=== PATIENT | female | born 1975 | race Caucasian/White ===

== ENCOUNTER → 2016-08-09 06:44 | Day surgery (SDC) | payer OTHER ==
[~2016-08-09 06:44] MED LIST: Buffered Lidocaine 1% SYR 3ML* 3 ML/SYR SYRINGE INTRADERM ONE; Lidocaine 1% INJ* 10 MG/ML 30 ML SDV ONE; Lidocaine 2% MPF* 2 ML VIAL ONE; Midazolam* 1 MG/ML 5 ML VIAL (5 MG) ONE; Propofol* 10 MG/ML 20 ML BTL IV PUSH ONE; ceFAZolin 2 GM PREMIX (*) 2 GM/50 ML BAG IVPB ONE; fentaNYL* 50 MCG/ML 2 ML VIAL (100 MCG VIAL) ONE
[2016-08-09 11:50] LABS: Manual Entry Verification HAN0055; UR Preg Internal Control QC Line Present
--- NOTE | 2016-08-09 14:05 | RAD ---
Indication: Left-sided PowerPort placement. Single frontal view of the chest performed at 1315 hours was reviewed. Comparison is made with previous exam dated June 09, 2014. Cardiomegaly is noted. PowerPort is in place. No pneumothorax is noted. Interstitial edema consistent with CHF is noted. IMPRESSION: CARDIOMEGALY WITH INTERSTITIAL EDEMA CONSISTENT WITH CHF.
--- NOTE | 2016-08-09 14:06 | RAD ---
CPT II Codes: 6045F INDICATION: PowerPort placement Fluoroscopic services provided for referring physician for PowerPort insertion. Approximately 8 seconds of fluoroscopy time was used. IMPRESSION: Placement of a PowerPort in the superior vena cava under fluoroscopic guidance.
[2016-08-09 14:28] VITALS: BP 116/57
--- NOTE | 2016-08-09 21:12 | OP ---
DATE OF OPERATION: 08/09/16 - [facility] DATE OF : 79 SURGEON: Darren Moraes MD FIRE SUPPORT SPECIALIST: None. ANESTHESIOLOGIST: Dr. Martinez. ANESTHESIA: LMAC anesthesia. PRE-OP DIAGNOSIS: Carcinoma of the breast. POST-OP DIAGNOSIS: Carcinoma of the breast. OPERATIVE PROCEDURE: Placement of left subclavian 8-Jordanian PowerPort. DESCRIPTION OF PROCEDURE: The patient was supine on the operating table. After adequate intravenous sedation, compression stockings, Yves Hugger warmer and intravenous antibiotics, the left chest and neck region were prepped with antiseptic and draped in a sterile fashion. Local infiltrative anesthesia was administered. Approximately 3 to 4 cm incision was created. Inferior pocket was created. Hemostasis was obtained using electrocautery. Subclavian venipuncture was carried out and guidewire was passed under fluoroscopic guidance. Catheter was passed through the peel-away introducer, measured and cut at 29 cm, attached to the port, which was sutured in the pocket with 2-0 Prolene. The pocket was closed with 3-0 and 5-0 Polysorb followed by Steri- Strips. The port had good blood return. It was flushed with saline solution and heparinized solution. She tolerated the procedure well and was brought to Recovery in good condition. No complications. No drains. No pathologic specimen. Sponge and instrument counts correct. Estimated blood loss 5 mL. CC: Darren Moraes MD; Dr. Richardson; Dr. Cordova; Dr. King * [id number]/[facility] #: [id number] MTDD
== END | disposition home or self-care (01) ==
LOC: OR 06:44
PROVIDERS: ATTEND Surgery
DX: C50.511 Malignant neoplasm of lower-outer quadrant of right female breast (principal); F17.210 Nicotine dependence, cigarettes, uncomplicated; Z68.41 Body mass index [BMI] 40.0-44.9, adult
CPT/HCPCS: 71010; 81025; C1788; J0690; J1642; J2250; J2704; J3010

== ENCOUNTER 2016-09-07 16:12 | Inpatient (IN) | payer OTHER ==
[2016-09-07 18:04] LABS: Urine Bilirubin Negative (Negative); Urine Glucose Negative (Negative); Urine Nitrite Negative (Negative)
[2016-09-07 18:51] LABS: ALT 64 U/L (7-52); AST 53 U/L (13-39); Albumin 3.7 g/dL (3.2-5.2); Alkaline Phosphatase 85 U/L (34-104); Anion Gap 3 mmol/L (2-11); BUN/Creatinine Ratio 7.4 (8-20); Blood Urea Nitrogen 5 mg/dL (6-24); C Reactive Protein 29.54 mg/L (< 5.00); CO2 Carbon Dioxide 30 mmol/L (22-32); Chloride 102 mmol/L (101-111); EGFR African American 123.9 (>60); EGFR Non-African American 96.3 (>60); Globulin 3.2 g/dL (2-4); Glucose 96 mg/dL (70-100); Lipase < 10 U/L (11.0-82.0); Potassium 3.9 mmol/L (3.5-5.0); Sodium 135 mmol/L (133-145); Total Protein 6.9 g/dL (6.4-8.9)
[2016-09-07 18:57] LABS: Add Diff/Slide Review? Slide Review Added; Comments Flag Yes; Hematocrit 45 % (35-47); Hemoglobin 14.8 g/dl (12.0-16.0); Mean Corpuscular HGB Conc 33 g/dl (31-36); Mean Corpuscular Hemoglobin 31 pg (27-31); Mean Corpuscular Volume 96 fL (80-97); Mean Platelet Volume 8 um3 (7.4-10.4); Red Blood Count 4.71 10^6/ul (4.0-5.4); Red Cell Distribution Width 15 % (10.5-15); White Blood Count 5.2 10^3/ul (3.5-10.8)
[2016-09-07 19:38] LABS: Eosinophils % 4 % (0-6); Immature Granulocytes 7 % (0-9); Metamyelocytes % 2 % (0-2); Myelocytes % 1 % (0-1); Neutrophil % 44 % (38-83)
[2016-09-07 19:39] LABS: Polychromasia 1+
[2016-09-07] MEDS ORDERED: HYDROmorphone INJ* 1 MG/ML CARPUJECT SYRINGE IV SLOW PU ONE ×2 (21:18→22:18)
[2016-09-07] MEDS ORDERED: Iohexol 300* (CONTRAST) 10 ML SDV IV ONE (22:17)
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
[2016-09-08] MEDS ORDERED: HYDROmorphone INJ* 1 MG/ML CARPUJECT SYRINGE IV SLOW PU ONE (00:37)
[2016-09-08] MEDS ORDERED: SUMAtriptan TAB* 50 MG PO PRN (01:16)
[2016-09-08] MEDS ORDERED: Nicotine Inhaler* 10 MG AMP INH PRN (01:16)
[2016-09-08] MEDS ORDERED: Acetaminophen TAB* 325 MG PO PRN (01:19)
[2016-09-08] MEDS ORDERED: Piperac/Tazob 3.375 gm in NS* 3.375 GM/100 ML BAG IVPB ONE (01:19)
[2016-09-08] MEDS ORDERED: Ondansetron INJ* 2 MG/ML VIAL IV PRN (01:19)
[2016-09-08] MEDS: HYDROmorphone INJ* 1 MG/ML CARPUJECT SYRINGE IV SLOW PU PRN ×3 (01:49→22:10)
[2016-09-08] MEDS ORDERED: Enoxaparin(*) 150 MG/ML 1 ML SYRINGE SUBCUT SCH (03:00)
[2016-09-08] MEDS: fentaNYL PATCHs 100 MCG/HR TRANSDERM SCH (03:36)
[2016-09-08] MEDS: OXYMORPHONE 20 MG PO SCH ×2 (04:00→13:25)
--- NOTE | 2016-09-08 06:02 | HP ---
DATE OF ADMISSION: 09/08/16 CHIEF COMPLAINT: Right-sided abdominal pain. HISTORY OF PRESENT ILLNESS: The patient is a 41-year-old woman who states about three days ago, she started feeling pain in her right side. It apparently got worse and worse to the point she had to come to the ER today. She said at its worse it is 7/10 in severity. It is always there, but increases with movement or if she touches it. She has no nausea, vomiting. No diarrhea. She had fevers and chills and decreased appetite. She notes she has a history now of breast cancer metastasis to her liver and her spleen and just completed a 2-week course of radiation therapy and just finished up her cycle of chemotherapy. In the ED, the patient was evaluated and found to have a thrombosis of the ovarian vein. She has a past medical history as noted the breast cancer with metastasis to the spine and liver, depression. She has had an appendectomy, three back surgeries, and two C- sections. ALLERGIES: She has allergies/adverse reaction to VENLAFAXINE, PROCHLORPEMAZINE , PROMETHAZINE AND ADHESIVE TAPE. CURRENT MEDICATIONS: As follows: 1. Fentanyl patch 100 mcg every 48 hours. 2. Zolpidem 10 mg at bedtime. 3. Trazodone 50 mg at bedtime. 4. Imitrex 50 mg daily as needed. 5. Prazosin 4 mg at bedtime. 6. MiraLax 17 grams two times a day. 7. Opana ER 20 mg every 12 hours. 8. Oxycodone 10 mg four times a day. 9. Nicotine inhaler 10 mg every two hours as needed. 10. Remeron 45 mg at bedtime. 11. Gabapentin 300 mg at bedtime and 100 mg three times a day. 12. Lexapro 40 mg at bedtime. 13. Vitamin D 50,000 units weekly. 14. Zyrtec 10 mg daily. 15. Brexpiprazole 2 mg at bedtime. 16. Alprazolam 1 mg four times a day. FAMILY HISTORY: Father is alive at 61 with psoriasis. She does not know her mother. SOCIAL HISTORY: Smokes a quarter pack a day now, used to smoke a pack a day and has been doing for 20 years. No alcohol or recreational drug use. She is on disability for her back. She is . She has two children and her father, Rafael Ashby, is her healthcare proxy. REVIEW OF SYSTEMS: A 14-point review of systems was completed with the patient. All pertinent positives and negatives are in the history of present illness; otherwise is negative. PHYSICAL EXAMINATION GENERAL: Pleasant woman lying in bed, uncomfortable, but not in acute distress. VITAL SIGNS: T-max 101.4, heart rate 96 beats per minute, respiratory rate 18 breaths per minute, pulse ox 94%, blood pressure 131/55. HEENT: Normocephalic, atraumatic. Pupils are equal, round, and reactive to light. Moist mucous membranes. NECK: Supple. No JVD, bruits, palpable thyroid, or lymphadenopathy. CHEST: Clear to auscultation and percussion bilaterally. CARDIOVASCULAR: S1, S2 appreciated. Regular rate and rhythm. ABDOMEN: Positive bowel sounds in all 4 quadrants. Tender in the right upper quadrant, but no rebound, guarding or rigidity, nondistended. EXTREMITIES: No cyanosis or clubbing. She has got minimal bilateral edema. NEUROLOGIC: Alert and oriented x3. Moves all extremities. SKIN: No distinct rashes or abnormalities. DIAGNOSTIC STUDIES/LAB DATA: Sodium 135, potassium 3.9, chloride 102, CO2 of 30, BUN 50, creatinine 0.68, glucose is 96. CRP is 29.54, AST 53, ALT 64. Her white count is 5.2, hemoglobin 14.8, hematocrit 45, platelets 358. Urinalysis is unremarkable. Abdominal pelvic CT shows findings defect of right ovarian vein in both early and delayed images on the same location consistent with thrombus. It may be most of the veins lay, however, timing of the scan suboptimal to assess. Right ovarian vein is larger than the left. Lung bases are clear. Fatty liver. Hypodensities in the right and left lobes of liver may represent metastatic lesions, large right lobe 1.6 cm, left lobe 1.7 cm. Gallbladder unremarkable. Pancreas, spleen, renals unremarkable. Negative for urinary calculus or hydroureteronephrosis. No adnexal mass. Tiny fat containing umbilical hernia. Nonobstructive bowel gas pattern. A tiny possible appendiceal remnant appears uninflamed. No paracecal inflammation. Prior L5 laminectomy and on right, there is lytic lesion in the posterior two-thirds of the L3 vertebral body, no acute fracture. No retropulsion and nonspecific 5 mm lucent lesion in the right posterolateral vertebral body of T10. ASSESSMENT AND PLAN: 1. Ovarian vein thrombosis. Reviewing the literature, the patient should probably be anticoagulated as you would with any DVT. So, therefore, we will place the patient on Lovenox 110 mg q.12 hours and further discussion is to what kind of anticoagulation should one can be had tomorrow. Whether she wants Eliquis, Xarelto or possibly Coumadin. Also recommendations, because this could be septic emboli and she does have a fever, would be to put her on IV antibiotics and was started empirically on Zosyn 3.375 mg. This can be transitioned to oral antibiotics when she is discharged. 2. Depression. This appears stable. Continue her current medications. 3. Chronic pain in addition to acute pain. Continue current medications, but add Dilaudid p.r.n. for breakthrough pain. 4. Breast cancer. Management as per Oncology. 5. FEN. Regular diet. 5. DVT prophylaxis. She is on Lovenox at treatment doses. 6. The patient is a full code. TIME SPENT: Over 75 minutes were spent on this H and P, more than 40 minutes of which were spent in direct [id number] contact with the patient in evaluation, physical exam, counseling, and coordination of care. CC: Dr. Richardson, PCP; Dr. Cordova, oncologist. * [id number]/[facility] #: [id number] MTDD
[2016-09-08] MEDS: fentaNYL Patch Check Q Shift 1 NOTE SCH ×2 (06:45→18:47)
--- NOTE | 2016-09-08 08:01 | RAD ---
CLINICAL HISTORY: Right lower quadrant pain, breast cancer COMPARISON: June 28, 2011, PET/CT dated December 04, 2016 TECHNIQUE: Multiple contiguous axial CT scans were obtained of the abdomen and pelvis after the administration of intravenous contrast. Coronal and sagittal multiplanar reformations are submitted for review. Oral contrast was administered. Delayed images were obtained through the abdomen FINDINGS: LUNG BASES: The lung bases are clear. LIVER: There are multiple low-attenuation hepatic parenchymal lesions that demonstrate mild peripheral enhancement. These are most suggestive of metastatic disease to the liver given the history of breast cancer. Direct comparison is limited due to the differences in technique; however, there are more lesions identifiable on the current examination than there are positive lesions on the study of August 06, 2018. BILE DUCTS: There is no intrahepatic or extrahepatic biliary dilatation. GALLBLADDER: The gallbladder is normal, without pericholecystic inflammatory change. PANCREAS: The pancreas is normal, without mass or ductal dilatation. SPLEEN: Normal in size and appearance. UPPER GI TRACT: Evaluation of the gastrointestinal tract is limited by incomplete gastric distention. The upper GI tract is unremarkable. SMALL BOWEL AND MESENTERY: The small bowel is normal in contour, course, and caliber. There is no obstruction or dilatation. COLON: The colon is normal in contour, course, caliber. There is no pericolonic inflammatory change. There is a small, tubular, vermiform, viscus originating from the cecum which may represent a stump of the appendix. There is no periappendiceal inflammatory change. ADRENALS: Normal bilaterally. KIDNEYS: The kidneys are normal in shape, size, contour, and axis. There is no hydronephrosis or nephrolithiasis. BLADDER: The bladder is smooth in contour. PELVIC ORGANS: The uterus and adnexa are grossly normal for technique. AORTA: The aorta is normal. IVC: There is a probable filling defect of the right gonadal vein LYMPH NODES: There is no lymphadenopathy by size criteria. ABDOMINAL WALL: There is no evidence for abdominal wall hernia. BONES AND SOFT TISSUES: There is a lytic lesion of L3. This corresponds to an FDG avid lesion on the previous PET/CT OTHER: None IMPRESSION: 1. PROBABLE FILLING DEFECT OF THE RIGHT CONDYLE VEIN, CONSISTENT WITH THROMBUS. 2. HEPATIC PARENCHYMAL LESIONS MOST CONSISTENT WITH METASTATIC DISEASE. DIRECT COMPARISON TO THE PREVIOUS PET/CT IS LIMITED; HOWEVER, THERE ARE MORE LESIONS ON THE CURRENT EXAMINATION THAN THAT ARE FDG AVID LESIONS ON THE PREVIOUS EXAMINATION. 3. LYTIC LESION OF L3 CORRESPONDING TO THE LESION NOTED ON PREVIOUS PET/CT CONSISTENT WITH OSSEOUS METASTATIC DISEASE
--- NOTE | 2016-09-08 08:16 | PN ---
Progress Note - Progress Note SOAP: Subjective: still w significant abdominal pain in the right lower quadrant. started with profuse diarrhea last night. none prior. Objective: Vital Signs Temp Pulse Resp BP Pulse Ox 98.3 F 93 18 135/62 94 09/08/16 02:30 09/08/16 02:30 09/08/16 04:37 09/08/16 02:30 09/08/16 02:30 lying on side, appears uncomfortable perr eomi op moist CTA bl marked ttp over right lower quadrant no le edema A+O x 3, nonfocal neurological exam Laboratory Results - last 24 hr 09/07/16 09/07/16 09/07/16 17:51 18:26 18:26 WBC 5.2 RBC 4.71 Hgb 14.8 Hct 45 MCV 96 MCH 31 MCHC 33 RDW 15 Plt Count 358 MPV 8 Immature Gran % (Auto) 7 Neut % (Auto) 43.9 Lymph % (Auto) 34.1 [place] % (Auto) 16.6 H Eos % (Auto) 4.5 Baso % (Auto) 0.9 Absolute Neuts (auto) 2.3 Absolute Lymphs (auto) 1.8 Absolute Monos (auto) 0.9 H Absolute Eos (auto) 0.2 Absolute Basos (auto) 0 Absolute Nucleated RBC 0.13 Neutrophils % 44 Band Neutrophils % 4 Lymphocytes % 33 Monocytes % 12 Eosinophils % 4 Metamyelocytes % 2 Myelocytes % 1 Nucleated RBC % 2.5 Nucleated RBCs/100 WBC 3 H Normal RBC Morphology Not Reportable Polychromasia 1+ Sodium 135 Potassium 3.9 Chloride 102 Carbon Dioxide 30 Anion Gap 3 BUN 5 L Creatinine 0.68 Est GFR ( Amer) 123.9 Est GFR (Non-Af Amer) 96.3 BUN/Creatinine Ratio 7.4 L Glucose 96 Lactic Acid Calcium 9.0 Total Bilirubin 0.50 AST 53 H ALT 64 H Alkaline Phosphatase 85 C-Reactive Protein 29.54 H Total Protein 6.9 Albumin 3.7 Globulin 3.2 Albumin/Globulin Ratio 1.2 Lipase < 10 L Urine Color [place] Urine Appearance Cloudy Urine pH 5.0 Ur Specific [place] 1.027 Urine Protein Negative Urine Ketones Negative Urine Blood Negative Urine Nitrate Negative Urine Bilirubin Negative Urine Urobilinogen Negative Ur Leukocyte Esterase Negative Urine Glucose Negative Urine Ascorbic Acid * H 09/07/16 09/08/16 18:26 07:23 WBC RBC Hgb Hct MCV MCH MCHC RDW Plt Count MPV Immature Gran % (Auto) Neut % (Auto) Lymph % (Auto) [place] % (Auto) Eos % (Auto) Baso % (Auto) Absolute Neuts (auto) Absolute Lymphs (auto) Absolute Monos (auto) Absolute Eos (auto) Absolute Basos (auto) Absolute Nucleated RBC Neutrophils % Band Neutrophils % Lymphocytes % Monocytes % Eosinophils % Metamyelocytes % Myelocytes % Nucleated RBC % Nucleated RBCs/100 WBC Normal RBC Morphology Polychromasia Sodium Potassium Chloride Carbon Dioxide Anion Gap BUN Creatinine Est GFR ( Amer) Est GFR (Non-Af Amer) BUN/Creatinine Ratio Glucose Lactic Acid 1.5 1.0 Calcium Total Bilirubin AST ALT Alkaline Phosphatase C-Reactive Protein Total Protein Albumin Globulin Albumin/Globulin Ratio Lipase Urine Color Urine Appearance Urine pH Ur Specific [place] Urine Protein Urine Ketones Urine Blood Urine Nitrate Urine Bilirubin Urine Urobilinogen Ur Leukocyte Esterase Urine Glucose Urine Ascorbic Acid Acetaminophen (Tylenol Tab*) 650 mg PO Q4H PRN PRN Reason: FEVER/PAIN Alprazolam (Xanax Tab*) 1 mg PO QID [facility] Brexpiprazole (Rexulti (Nf)) 2 mg PO BEDTIME [facility] Cetirizine HCl (Zyrtec*) 10 mg PO QPM [facility] PRN Reason: Protocol Escitalopram Oxalate (Lexapro (Nf)) 40 mg PO BEDTIME [facility] Fentanyl (Duragesic Patch 100 Mcg/Hr *) 100 mcg TRANSDERM Q48H [facility] Last Admin: 09/08/16 03:36 Dose: 100 mcg Gabapentin (Neurontin Cap(*)) 100 mg PO 0900,1300,1700 [facility] Gabapentin (Neurontin Cap(*)) 300 mg PO BEDTIME [facility] Hydromorphone HCl (Dilaudid Iv*) 1 mg IV SLOW PU Q4H PRN PRN Reason: PAIN Loperamide HCl (Imodium Cap*) 2 mg PO .SEE DIRECTIONS PRN PRN Reason: DIARRHEA Mirtazapine (Remeron Tab*) 45 mg PO BEDTIME [facility] Nicotine (Nicotine Inhaler*) 10 mg INH Q2H PRN PRN Reason: CRAVING Ondansetron HCl (Zofran Inj*) 4 mg IV Q4H PRN PRN Reason: NAUSEA Oxycodone HCl (Roxycodone Tab*) 10 mg PO QID [facility] Oxymorphone HCl (Opana Er (Nf)) 20 mg PO Q12H [facility] Last Admin: 09/08/16 04:00 Dose: Not Given Pharmacy Profile Note (Fentanyl Patch Check Q Shift) 1 note N/A 0700,1900 [facility] Last Admin: 09/08/16 06:45 Dose: 1 note Polyethylene Glycol/Electrolytes (Miralax*) 17 gm PO TID [facility] Prazosin HCl (Minipress Cap*) 4 mg PO BEDTIME [facility] Rivaroxaban (Xarelto(*)) 15 mg PO BID [facility] Sumatriptan Succinate (Imitrex Tab*) 50 mg PO DAILY PRN PRN Reason: MIGRAINE HEADACHE Trazodone HCl (Desyrel Tab*) 300 mg PO BEDTIME [facility] Zolpidem Tartrate (Ambien Tab*) 10 mg PO BEDTIME [facility] Assessment: 41 yo F w newly diagnosed metastatic Her2+ breast cancer and chronic pain on opiates, now presenting with acute right lower quadrant pain and found to have a right ovarian vein thrombosis with fevers. This is clearly an unusual location for thrombosis without provoking surgery, however her malignancy makes her hypercoagulable. With her fever I agree with covering for the possibility of thrombophelbitis or septic emboli. In terms of choice of anticoagulant, she is on the upper limit for using sc lovenox and is not inclined to give herself injections. Given this I would like to try xeralto 15 mg po bid to start then 20 mg daily. Pain control will clearly be a challenge for her, as it has been for most of her life, and we will get pain management medicine involved if necessary. In terms of her diarrhea, I suspect that this is related to her perjeta and herceptin (she is sp cycle 1 day 12) however if it persists despite imodium of her WBC climbs we will send for c diff. Plan: -cont pain control -switch to xeralto 15 mg po bid x 3 weeks, then 20 mg daily -cont zosyn for now -imodium PRN -hold miralax
[2016-09-08] MEDS: Gabapentin CAP(*) 100 MG PO SCH ×3 (08:53→17:27)
[2016-09-08] MEDS: ALPRAZolam TAB* 0.5 MG PO SCH ×4 (08:53→21:03)
[2016-09-08] MEDS: Rivaroxaban TAB(*) 15 MG PO SCH ×2 (08:55→21:05)
[2016-09-08] MEDS: oxyCODONE TAB* 5 MG TAB PO SCH ×4 (08:55→21:04)
[2016-09-08] MEDS ORDERED: Polyethylene Glycol 3350* 17 GM PACKET PO SCH (09:00)
[2016-09-08] MEDS: Loperamide CAP* 2 MG PO PRN (09:49)
[2016-09-08] MEDS: Cetirizine* 10 MG TAB PO SCH (17:28)
[2016-09-08] MEDS: CMCS: Escitalopram (NF) 10 MG TAB PO SCH (21:03)
[2016-09-08] MEDS: Mirtazapine TAB* 15 MG PO SCH (21:03)
[2016-09-08] MEDS: traZODone TAB* 100 MG PO SCH (21:04)
[2016-09-08] MEDS: Zolpidem TAB* 10 MG PO SCH (21:05)
[2016-09-08] MEDS: Gabapentin CAP(*) 300 MG PO SCH (21:05)
[2016-09-08] MEDS: Prazosin CAP* 1 MG PO SCH (21:05)
[2016-09-08] MEDS: Brexpiprazole (NF) 4 MG TAB PO SCH (21:09)
--- NOTE | 2016-09-08 23:19 | PN ---
Progress Note - Progress Note Note: Patient had 23 run of V tach and was asymptomatic.
[2016-09-09] MEDS: OXYMORPHONE 20 MG PO SCH ×2 (02:04→12:55)
[2016-09-09] MEDS: HYDROmorphone INJ* 1 MG/ML CARPUJECT SYRINGE IV SLOW PU PRN ×3 (05:22→20:33)
[2016-09-09 05:50] LABS: Hematocrit 42 % (35-47); Mean Corpuscular HGB Conc 33 g/dl (31-36); Mean Corpuscular Hemoglobin 32 pg (27-31); Mean Corpuscular Volume 96 fL (80-97); Mean Platelet Volume 7 um3 (7.4-10.4); Red Blood Count 4.41 10^6/ul (4.0-5.4); Red Cell Distribution Width 16 % (10.5-15); White Blood Count 6.4 10^3/ul (3.5-10.8)
[2016-09-09 05:52] LABS: Add Diff/Slide Review? Slide Review Added; Comments Flag Yes
[2016-09-09 05:55] LABS: Albumin 3.2 g/dL (3.2-5.2); BUN/Creatinine Ratio 12.3 (8-20); Calcium 8.6 mg/dL (8.6-10.3); EGFR African American 114.1 (>60); EGFR Non-African American 88.8 (>60); Globulin 2.9 g/dL (2-4); Magnesium 2.5 mg/dL (1.9-2.7); Potassium 3.6 mmol/L (3.5-5.0); Total Bilirubin 0.4 mg/dL (0.2-1.0); Total Protein 6.1 g/dL (6.4-8.9)
[2016-09-09 06:18] LABS: Eosinophils % 1 % (0-6); Immature Granulocytes 7 % (0-9); Metamyelocytes % 2 % (0-2); Myelocytes % 1 % (0-1); Neutrophil % 48 % (38-83); Reactive Lymph % 4 % (0-6)
[2016-09-09 06:19] LABS: RBC Morphology Normal (Normal)
[2016-09-09] MEDS: fentaNYL Patch Check Q Shift 1 NOTE SCH ×2 (07:06→19:11)
[2016-09-09] MEDS: Gabapentin CAP(*) 100 MG PO SCH ×3 (08:58→17:08)
[2016-09-09] MEDS: ALPRAZolam TAB* 0.5 MG PO SCH ×4 (08:58→21:26)
[2016-09-09] MEDS: oxyCODONE TAB* 5 MG TAB PO SCH ×4 (08:59→21:25)
[2016-09-09] MEDS: Rivaroxaban TAB(*) 15 MG PO SCH ×2 (08:59→21:25)
[2016-09-09] MEDS: Potassium Chlor TAB* 10 MEQ TAB.ER PO SCH ×2 (09:04→11:37)
--- NOTE | 2016-09-09 11:31 | PN ---
Subjective Date of Service: 09/09/16 Interval History: Overnight events noted. Patient seen this morning. Complaining of abdominal pain, does not feel that dilaudid lasts long enough. Denies SOB, palpitations, chest pain. No further fever or chills. Family History: Unchanged from Admission Social History: Unchanged from Admission Past Medical History: Unchanged from Admission Objective Active Medications: Acetaminophen (Tylenol Tab*) 650 mg PO Q4H PRN Alprazolam (Xanax Tab*) 1 mg PO QID [facility] Brexpiprazole (Rexulti (Nf)) 2 mg PO BEDTIME [facility] Cetirizine HCl (Zyrtec*) 10 mg PO QPM [facility] Escitalopram Oxalate (Lexapro (Nf)) 40 mg PO BEDTIME [facility] Fentanyl (Duragesic Patch 100 Mcg/Hr *) 100 mcg TRANSDERM Q48H [facility] Gabapentin (Neurontin Cap(*)) 100 mg PO 0900,1300,1700 [facility] Gabapentin (Neurontin Cap(*)) 300 mg PO BEDTIME [facility] Hydromorphone HCl (Dilaudid Iv*) 1 mg IV SLOW PU Q4H PRN Loperamide HCl (Imodium Cap*) 2 mg PO .SEE DIRECTIONS PRN Mirtazapine (Remeron Tab*) 45 mg PO BEDTIME [facility] Nicotine (Nicotine Inhaler*) 10 mg INH Q2H PRN Ondansetron HCl (Zofran Inj*) 4 mg IV Q4H PRN Oxycodone HCl (Roxycodone Tab*) 10 mg PO QID [facility] Oxymorphone HCl (Opana Er (Nf)) 20 mg PO Q12H [facility] Pharmacy Profile Note (Fentanyl Patch Check Q Shift) 1 note N/A 0700,1900 [facility] Prazosin HCl (Minipress Cap*) 4 mg PO BEDTIME [facility] Rivaroxaban (Xarelto(*)) 15 mg PO BID [facility] Sumatriptan Succinate (Imitrex Tab*) 50 mg PO DAILY PRN Trazodone HCl (Desyrel Tab*) 300 mg PO BEDTIME [facility] Zolpidem Tartrate (Ambien Tab*) 10 mg PO BEDTIME [facility] Vital Signs 09/08/16 09/08/16 09/08/16 15:46 17:26 17:27 Temperature 98.2 F Pulse Rate 80 Respiratory 17 16 16 Rate Blood Pressure 108/58 (mmHg) O2 Sat by Pulse 94 Oximetry 09/08/16 09/08/16 09/08/16 19:27 19:58 20:00 Temperature 98.3 F Pulse Rate 74 Respiratory 17 18 18 Rate Blood Pressure 93/74 (mmHg) O2 Sat by Pulse 92 Oximetry 09/09/16 11:18 Temperature 97.5 F Pulse Rate 83 Respiratory 18 Rate Blood Pressure 117/58 (mmHg) O2 Sat by Pulse 92 Oximetry Oxygen Devices in Use Now: None Appearance: Young, obese, F, laying in bed in NAD Eyes: No Scleral Icterus Ears/Nose/Mouth/Throat: Mucous Membranes Moist Neck: NL Appearance and Movements; NL JVP Respiratory: Symmetrical Chest Expansion and Respiratory Effort, Clear to Auscultation Cardiovascular: NL Sounds; No Murmurs; No JVD, RRR Abdominal: - - Obese, soft, non-distended, TTP in RLQ, no rebound/guarding Lymphatic: No Cervical Adenopathy Extremities: No Edema Skin: - - L elbow ecchymoses Neurological: Alert and Oriented x 3 Result Diagrams: 09/09/16 05:13 09/09/16 05:13 Additional Lab and Data: Assess/Plan/Problems-Billing Assessment: Ovarian vein thrombosis in a 41 yo F with hx of metastatic breast cancer on Perjeta and Herceptin - Patient Problems (1) Thrombosis of ovarian vein Current Visit: Yes Comment: Continue Xarelto BID, continue analgesia (2) V-tach Current Visit: Yes Comment: Asymptomatic run of Vtach overnight. Will replete electrolytes to maintain K>4, Mg>2. Spoke with Dr. French who will evaluate patient tomorrow. Will get echo, repeat EKG. ?due to chemo. Patient states she was seen in the past for "skipped beats". Did have 2 episodes of a dropped QRS as well that was asymptomatic. (3) Fever Current Visit: Yes Comment: No recurrence of fever, no leukocytosis, Zosyn stopped overnight. Will monitor for now. (4) DVT prophylaxis Current Visit: Yes Comment: Xarelto
[2016-09-09] MEDS: Loperamide CAP* 2 MG PO PRN (11:37)
[2016-09-09] MEDS: Cetirizine* 10 MG TAB PO SCH (17:08)
--- NOTE | 2016-09-09 17:23 | PN ---
Hospitalist Progress Note Notified by Neville (RN) that patient was requesting Palliative Care consult. Will place order. Primary oncology team can discuss further with patient tomorrow.
[2016-09-09] MEDS: Gabapentin CAP(*) 300 MG PO SCH (21:25)
[2016-09-09] MEDS: Zolpidem TAB* 10 MG PO SCH (21:26)
[2016-09-09] MEDS: Prazosin CAP* 1 MG PO SCH (21:26)
[2016-09-09] MEDS: Mirtazapine TAB* 15 MG PO SCH (21:26)
[2016-09-09] MEDS: traZODone TAB* 100 MG PO SCH (21:26)
[2016-09-09] MEDS: CMCS: Escitalopram (NF) 10 MG TAB PO SCH (21:26)
[2016-09-09] MEDS: Brexpiprazole (NF) 4 MG TAB PO SCH (21:29)
[2016-09-10] MEDS: OXYMORPHONE 20 MG PO SCH (02:15)
[2016-09-10] MEDS: HYDROmorphone INJ* 1 MG/ML CARPUJECT SYRINGE IV SLOW PU PRN ×2 (03:30→07:24)
[2016-09-10] MEDS: fentaNYL PATCHs 100 MCG/HR TRANSDERM SCH (04:29)
[2016-09-10 06:18] LABS: BUN/Creatinine Ratio 12.7 (8-20); Calcium 8.6 mg/dL (8.6-10.3); EGFR African American 117.9 (>60); EGFR Non-African American 91.6 (>60); Magnesium 2.5 mg/dL (1.9-2.7)
[2016-09-10] MEDS: fentaNYL Patch Check Q Shift 1 NOTE SCH (06:57)
[2016-09-10] MEDS ORDERED: HYDROmorphone TAB* 2 MG PO PRN (07:47)
--- NOTE | 2016-09-10 08:58 | DS ---
- Discharge Summary ADMIT DATE: 09/08/2016 DISCHARGE DATE:09/10/2016 DISCHARGE DIAGNOSIS: 1. ovarian vein thrombosis 2. metastatic breast cancer on chemotherapy 3. chronic pain syndrome DISCHARGE MEDICATIONS: Medication Instructions Recorded Confirmed Type Escitalopram Oxalate [Lexapro] 40 mg PO BEDTIME 12/21/12 09/08/16 History Mirtazapine TAB* [Remeron TAB*] 45 mg PO BEDTIME 12/21/12 09/08/16 History fentaNYL PATCH 50 MCG/HR* 100 mcg TOPICAL Q48HR 12/21/12 09/08/16 History [Duragesic PATCH 50 Mcg/Hr*] Alprazolam 1 mg PO QID 12/23/12 09/08/16 History Trazodone HCl 300 mg PO BEDTIME 12/23/12 09/08/16 History Zolpidem TAB* [Ambien*] 10 mg PO BEDTIME 12/23/12 09/08/16 History Gabapentin CAP(*) [Neurontin 100 100 mg PO TID 05/29/16 09/08/16 History mg CAP(*)] Oxycodone TAB(NF) [Oxycodone HCl 10 mg PO QID 05/29/16 09/08/16 History 10 MG] Oxymorphone ER (NF) [Opana ER (NF)] 20 mg PO Q12H 05/29/16 09/08/16 History Prazosin HCl [Minipress] 4 mg PO BEDTIME 08/02/16 09/08/16 History Brexpiprazole [Rexulti] 2 mg PO BEDTIME 08/08/16 09/08/16 History Cetirizine* [ZyrTEC*] 10 mg PO DAILY 08/08/16 09/08/16 History Cholecalciferol TAB* [Vitamin D 50,000 units PO WEEKLY 08/08/16 09/08/16 History TAB*] Nicotine Inhaler* 10 mg INH Q2H PRN 08/08/16 09/08/16 History Polyethylene Glycol 3350* 17 gm PO TID 08/08/16 09/08/16 History [Miralax*] SUMAtriptan TAB* [Imitrex TAB*] 50 mg PO DAILY PRN 08/08/16 09/08/16 History Gabapentin CAP(*) [Neurontin 100 300 mg PO BEDTIME 08/13/16 09/08/16 History mg CAP(*)] HYDROmorphone TAB* [Dilaudid TAB*] 2 mg PO Q3H PRN #40 tab MDD 8 tabs 09/10/16 Rx Loperamide CAP* [Imodium CAP*] 2 mg PO .SEE DIRECTIONS PRN #0 cap 09/10/16 Rx Rivaroxaban TAB(*) [Xarelto 15 15 mg PO BID #36 tab 09/10/16 Rx mg(*)] DISCHARGE FOLLOW UP: 1. chemotherapy 2.27 as scheduled HOSPITAL COURSE: 41 yo F w PMHx of newly diagnosed metastatic breast cancer and chronic pain seen by Dr. Livingston who started palliative Taxotere/Perjeta/Herceptin 13 days ago and presented with severe right lower quadrant pain. Imaging revealed a right ovarian vein thrombosis. She was started on lovenox and transitioned to xeralto. She required IV dilaudid q3-4 hours and so will be discharged on PO dilaudid for 5 days. I did call to inform her pain doctor of this script. Plan will be to transition to 20 mg of xeralto after 3 weeks of loading dose. She had one fever on admission and was treated with zosyn. She has been afebrile and will be discharged off antibiotics. She also developed diarrhea, likely related to her perjeta, and her miralax was held and imodium was given. She will go back on miralax as needed. >30 mins spent, >50% in face to face counseling
[2016-09-10] MEDS: Rivaroxaban TAB(*) 15 MG PO SCH (09:20)
[2016-09-10] MEDS: Gabapentin CAP(*) 100 MG PO SCH (09:20)
[2016-09-10] MEDS: oxyCODONE TAB* 5 MG TAB PO SCH (09:20)
[2016-09-10] MEDS: ALPRAZolam TAB* 0.5 MG PO SCH (09:21)
[2016-09-10] MEDS: Loperamide CAP* 2 MG PO PRN (09:24)
[2016-09-10 09:45] VITALS: BP 126/63
--- NOTE | 2016-09-10 11:00 | ECHO ---
Patient: JIMENEZ ALMONTE [facility] Rec#: [id number] : 1975 Date: 09/10/2016 Age: 41y Height: 167.64 cm / 66.0 in Weight: 118.84 kg / 261.9 lbs Sex: F BSA: 2.24 Room#: 444 Admit Date#: 09/08/2016 Type: Inpatient Referring: GIBRAN BLISS MD Reading: Marshal French MD Print Press Operator: Florence Kulkarni Print Press Operator: Tarsha Jennings RN RDCS CC: Marleni Richardson MD Transthoracic Echocardiogram Indication: Ventricular Tachycardia BP: 106/55 HR: 78 Rhythm: NSR Findings History: HTN, HLD, DEMETRIO, obesity, smoker, metastatic breast cancer, chemotherapy, ovarian thrombosis. Technical Comments: The study is technically limited due to patient body habitus. The study is technically limited due to the patient's smoking history. Left Ventricle: The left ventricular chamber size is normal. Septal wall hypertrophy is observed. Global left ventricular wall motion and contractility are within normal limits. There is normal left ventricular systolic function. The estimated ejection fraction is 55-60%. Normal left ventricular diastolic filling is observed. Left Atrium: The left atrial chamber size is normal. Right Ventricle: Moderator Band present. The right ventricular cavity size is normal. The right ventricle wall thickness is mildly increased. The right ventricular global systolic function is normal. Right Atrium: The right atrial cavity size is normal. Aortic Valve: The aortic valve is trileaflet. There is no evidence of aortic valve thickening. There is no evidence of aortic regurgitation. There is no evidence of aortic stenosis. Mitral Valve: The mitral valve leaflets are mildly thickened. There is a trace of mitral regurgitation. There is no evidence of mitral stenosis. Tricuspid Valve: The tricuspid valve leaflets are normal. There is trace tricuspid regurgitation. No pulmonary hypertension is noted. There is no tricuspid stenosis. Pulmonic Valve: The pulmonic valve appears normal. There is a trace pulmonic regurgitation. There is no pulmonic stenosis. Pericardium: There is no significant pericardial effusion. Aorta: There is no dilatation of the ascending aorta. There is no dilatation of the aortic arch. There is no dilation of the aortic root. Pulmonary Artery: The main pulmonary artery appears normal. Venous: The venous system is not well visualized. The inferior vena cava is not visualized. Summary: There are no significant changes when compared to the previous study done on 08/01/16 Conclusions Global left ventricular wall motion and contractility are within normal limits. There is normal left ventricular systolic function. The estimated ejection fraction is 55-60%. There is no evidence of aortic valve thickening. There is no evidence of aortic regurgitation. There is a trace of mitral regurgitation. There is trace tricuspid regurgitation. No pulmonary hypertension is noted. There is no significant pericardial effusion. There are no significant changes when compared to the previous study done on 08/01/16 Measurements Name Value Normal Range RVIDd (AP) 2D 2.8 cm (0.9 - 2.6) RVDdMajor (2D) 3.1 cm (2.2 - 4.4) RVAW (2D) 0.8 cm (0.2 - 0.5) RAd ISD 4CH 4.9 cm (3.4 - 4.9) RA (A4C)W 3.3 cm (2.9 - 4.6) IVSd (2D) 1.1 cm (0.6 - 1) LVPWd (2D) 0.9 cm (0.6 - 1) LVIDd (2D) 4.6 cm (3.6 - 5.4) LVIDs (2D) 3 cm - LV FS (2D) 35 % (25 - 45) Aortic Annulus 1.6 cm (1.4 - 2.6) Ao root diameter (2D) 2.6 cm (2.1 - 3.5) Ascending Ao 2.6 cm (2.1 - 3.4) Aortic arch 2.2 cm (1.8 - 3.4) LA dimension (AP) 2D 4 cm (2.3 - 3.8) LAd ISD 4CH 4.5 cm (2.9 - 5.3) LA ISD 4CH W 3.7 cm (2.5 - 4.5) Name Value Normal Range LA ESV SP 4CH (A/L) 56 ml - LA ESV SP 2CH (A/L) 35 ml - LA ESV BP (A/L) 46 ml - LA ESV BP (A/L) index 20.49 ml/m2 - LA ESV SP 4CH (MOD) 52 ml - LA ESV SP 2CH (MOD) 33 ml - Name Value Normal Range MV E-wave Vmax 0.9 m/sec - MV deceleration time 178 msec - MV A-wave Vmax 0.6 m/sec - MV E:A ratio 1.5 ratio - LV septal e' Vmax 0.09 m/sec - LV lateral e' Vmax 0.1 m/sec - LV E:e' septal ratio 10 ratio - LV E:e' lateral ratio 9 ratio - Name Value Normal Range AV Vmax 1.6 m/sec - AV VTI 31.37 cm - AV peak gradient 10.64 mmHg - AV mean gradient 5.77 mmHg - LVOT Vmax 1.3 m/sec - LVOT VTI 25.81 cm - LVOT peak gradient 6.33 mmHg - LVOT mean gradient 3.3 mmHg - FABIAN Vmax 1.1 m/sec - Name Value Normal Range TR Vmax 1.2 m/sec - TR peak gradient 6 mmHg - RAP 8 mmHg - RVSP 14 mmHg - Name Value Normal Range PV Vmax 1.1 m/sec - PV peak gradient 5.25 mmHg -
--- NOTE | 2016-09-10 19:18 | CONS ---
CARDIOLOGY CONSULTATION: DATE OF CONSULTATION: 09/10/16 INDICATION FOR CONSULTATION: Wide complex tachycardia. HISTORY OF PRESENT ILLNESS: The patient is a 41-year-old female with stage IV breast cancer who was admitted to the hospital because of abdominal pain. The patient underwent a CAT scan of her abdomen and she was observed in the hospital. Ultimately, her pain resolved on its own. While in the hospital, she was on telemetry monitoring, which showed a majority of the time she was in normal sinus rhythm; however, she did have a 23-beat of wide complex tachycardia. The arrhythmia was asymptomatic. The patient has no history of cardiac arrhythmias or cardiac history. The patient was observed in the hospital. She did get laboratory work this morning, which showed no evidence of electrolyte abnormalities. An EKG yesterday demonstrated normal sinus rhythm with normal axis and intervals. The patient had an echocardiogram this morning, which showed normal LV size and systolic function. No significant valvular abnormalities. There was no change from her echocardiogram 5 weeks ago. In evaluation of her wide complex tachycardia it appeared to be supraventricular , there was no change in axis on her EKG, it did speed up during its progression. PAST MEDICAL HISTORY: Significant for stage IV breast cancer. 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 She has depression. PAST SURGICAL HISTORY: Appendectomy, back surgeries, section, and lumpectomy. OUTPATIENT MEDICATIONS: 1. Fentanyl patch 100 mcg every 48 hours. 2. Ambien 10 mg q.h.s. 3. Trazodone 50 mg at nighttime. 4. Imitrex 50 mg as needed. 5. Prazosin 4 mg q.h.s. 6. Opana ER 20 mg every 12 hours. 7. Oxycodone 10 mg 4 times a day. 8. Lexapro 40 mg a day. 9. Remeron 45 mg a day. 10. Zyrtec 10 mg a day. 11. Alprazolam 1 mg a needed. FAMILY HISTORY: Her father had psoriasis. She is unaware of her mother's past medical history. SOCIAL HISTORY: She smokes a quarter pack of cigarettes a day. She is on disability. She is currently . She has 2 children. PHYSICAL EXAMINATION: Height is 5 feet 6 inches, weight is 262 pounds. Temperature 99.5, heart rate is 64, respiratory rate is 16, blood pressure is 126/63. Sclerae anicteric. Oropharynx is pink without erythema. Carotids are 2+ without bruits. JVD is normal. Thyroid is normal. Cardiac Exam: S1, S2 without any murmurs, rubs, or gallops. Lungs are clear to auscultation. Abdomen is soft, nontender, and nondistended with normoactive bowel sounds. Extremities show no edema. She has 2+ pulses throughout. Neuro: The patient is awake, alert, and oriented. She moves all four extremities equally. LABORATORY DATA/DIAGNOSTIC STUDIES: CBC within normal limits. Chemistries within normal limits. DIAGNOSTIC STUDIES: Again, her echocardiogram shows normal LV size and systolic function. Her EKG demonstrates normal sinus rhythm with normal axis and intervals. IMPRESSION: This is a 41-year-old female who was admitted to the hospital with abdominal pain. She has stage IV breast cancer. The patient did have a 23-beat run of wide complex tachycardia. I am not convinced that this is ventricular tachycardia based on the rhythm strips. I think this is a supraventricular tachycardia with aberrancy. For now, my recommendation is to stay on her same medications. I do not think the patient particularly needs beta-walter therapy at this time. She was asymptomatic from her arrhythmia. The patient has continued to follow up with Dr. Cordova. CC: Jill Cordova MD* [id number]/[facility] #: [id number] [facility] HOSPITALJitendra
== END 2016-09-10 10:48 | disposition home or self-care (01) | DRG 197 ==
LOC: ED 16:12 → MEDTELE 09-08 01:47
PROVIDERS: ADMIT Internal Medicine; ATTEND Internal Medicine Hematology & Oncology
DX: I82.890 Acute embolism and thrombosis of other specified veins (principal); C78.7 Secondary malignant neoplasm of liver and intrahepatic bile duct; C50.919 Malignant neoplasm of unspecified site of unspecified female breast; C78.89 Secondary malignant neoplasm of other digestive organs; I47.1 Supraventricular tachycardia; G89.4 Chronic pain syndrome; F32.9 Major depressive disorder, single episode, unspecified; F17.210 Nicotine dependence, cigarettes, uncomplicated; Z79.891 Long term (current) use of opiate analgesic; Z79.899 Other long term (current) drug therapy; Z88.8 Allergy status to other drugs, medicaments and biological substances; Z91.048 Other nonmedicinal substance allergy status
CPT/HCPCS: 36415; 74177; 80048; 80053; 81003; 83605; 83690; 83735; 85025; 86140; 93005; 93306; 99233; 99239; A9270-GY; J1170; J1650; J2543; Q9967

== ENCOUNTER 2016-09-25 23:01 | Inpatient (IN) | payer OTHER ==
[2016-09-25] MEDS ORDERED: Ondansetron INJ* 2 MG/ML VIAL IV ONE (23:57)
[2016-09-25] MEDS ORDERED: NS 0.9% 1000 ML* 1,000 ML IV ONE (23:57)
[2016-09-26] MEDS ORDERED: Acetaminophen TAB* 325 MG PO ONE
[2016-09-26] MEDS ORDERED: HYDROmorphone INJ* 1 MG/ML CARPUJECT SYRINGE IV SLOW PU ONE (00:16)
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
[2016-09-26 00:58] LABS: Albumin 3.5 g/dL (3.2-5.2); BUN/Creatinine Ratio 9.1 (8-20); C Reactive Protein 76.79 mg/L (< 5.00); Calcium 8.9 mg/dL (8.6-10.3); EGFR African American 128.2 (>60); EGFR Non-African American 99.7 (>60); Globulin 2.9 g/dL (2-4); Hematocrit 36 % (35-47); Hemoglobin 11.7 g/dl (12.0-16.0); Magnesium 1.9 mg/dL (1.9-2.7); Mean Corpuscular HGB Conc 33 g/dl (31-36); Mean Corpuscular Hemoglobin 31 pg (27-31); Mean Corpuscular Volume 94 fL (80-97); Mean Platelet Volume 8 um3 (7.4-10.4); Potassium 3.8 mmol/L (3.5-5.0); Red Blood Count 3.77 10^6/ul (4.0-5.4); Red Cell Distribution Width 16 % (10.5-15); Total Bilirubin 0.6 mg/dL (0.2-1.0); Total Protein 6.4 g/dL (6.4-8.9); White Blood Count 1.7 10^3/ul (3.5-10.8)
[2016-09-26 01:00] LABS: Comments Flag Yes; Troponin I 0.01 ng/mL (<0.04)
[2016-09-26 01:01] LABS: Add Diff/Slide Review? Slide Review Added
[2016-09-26 01:45] LABS: TSH (Thyroid Stimulating Horm) 0.82 mcIU/mL (0.34-5.60)
[2016-09-26 01:50] LABS: Neutrophil % 5 % (38-83); RBC Morphology Normal (Normal); Reactive Lymph % 2 % (0-6)
[2016-09-26] MEDS ORDERED: NS 0.9% 50 ML* 50 ML ONE (01:56)
[2016-09-26] MEDS ORDERED: Cefepime(*) 2 GM in NS 0.9% 50 ML* 50 ML IVPB ONE (02:00)
[2016-09-26] MEDS ORDERED: Docusate CAP* 100 MG PO PRN (02:04)
[2016-09-26] MEDS ORDERED: Ondansetron INJ* 2 MG/ML VIAL IV PRN (02:04)
[2016-09-26] MEDS ORDERED: Albuterol/Ipratropium NEB.SOL* Albuterol 2.5 MG/Ipratropium 0.5 MG 3 ML INH PRN (02:04)
[2016-09-26] MEDS ORDERED: Al Hydrox/Mg Hydrox/Simet LIQ* 30 ML UDC PO PRN (02:04)
[2016-09-26] MEDS ORDERED: Senna TAB PO PRN (02:04)
[2016-09-26] MEDS ORDERED: traZODone TAB* 50 MG TAB PO PRN (02:09)
[2016-09-26] MEDS ORDERED: Zolpidem TAB* 10 MG PO PRN (02:09)
[2016-09-26] MEDS ORDERED: Mouth Piece, Nicotine* 1 EACH CARTRIDGE INH PRN (02:11)
[2016-09-26] MEDS ORDERED: Nicotine Inhaler* 10 MG AMP INH PRN (02:11)
[2016-09-26] MEDS ORDERED: ALPRAZolam TAB* 0.5 MG PO PRN (02:14)
[2016-09-26] MEDS ORDERED: fentaNYL PATCHs 100 MCG/HR TRANSDERM SCH (03:00)
[2016-09-26] MEDS: Magic M W2 Ben/Maal/Nyst/Lido* 240 ML MOUTHWASH (alt formulation) SWISH SWAL SCH ×5 (04:24→22:29)
[2016-09-26 05:10] LABS: Comments Flag Yes; Hematocrit 37 % (35-47); Mean Corpuscular HGB Conc 33 g/dl (31-36); Mean Corpuscular Hemoglobin 32 pg (27-31); Mean Corpuscular Volume 97 fL (80-97); Mean Platelet Volume 8 um3 (7.4-10.4); Red Blood Count 3.81 10^6/ul (4.0-5.4); Red Cell Distribution Width 16 % (10.5-15); White Blood Count 2.3 10^3/ul (3.5-10.8)
[2016-09-26 05:12] LABS: Add Diff/Slide Review? Manual Diff Added
[2016-09-26] MEDS: fentaNYL Patch Check Q Shift 1 NOTE SCH ×2 (06:46→18:48)
--- NOTE | 2016-09-26 07:10 | HP ---
HISTORY AND PHYSICAL: DATE OF ADMISSION: 09/26/2016. PRIMARY CARE PHYSICIAN: Marleni Richardson M.D. CHIEF COMPLAINT: Fever. HISTORY OF PRESENT ILLNESS: This is a 41-year-old female with a past medical history of metastatic breast cancer to the spine and liver, recently admitted a few weeks ago for an ovarian vein thrombus, started on anticoagulation, who states she woke up during the night, not feeling well and checked her temperature and it was 101.7. She called her oncologist who recommended going to the emergency room for further evaluation. She was in the oncology clinic today and they noted that she was neutropenic at that time. The patient denies any cough, no chest pain or shortness of breath. Mild congestion, positive headache, no neck tenderness. Some nausea, no vomiting or diarrhea. She has some right-sided abdominal pain where her vein thrombus is. No diarrhea. She has had skin peeling and redness of her hands which started last Saturday, September 19. She's also complaining of mouth sores. Her last chemotherapy was September 17. Otherwise, no sick contacts. No dysuria. Remaining review of systems are negative as mentioned. The patient had labs and found to have neutropenic fever, was given fluids and cefepime, and was referred to the hospitalist service for further evaluation. PAST MEDICAL HISTORY: 1. Breast cancer with metastases to spine and liver, followed by Dr. Cordova, on chemotherapy, with a recent diagnosis of ovarian vein thrombosis. 2. Chronic pain. 3. Depression. 4. Anxiety. 5. Night terrors. 6. Insomnia. 7. Constipation. 8. Chronic pain. 9. Migraines. 10. Seasonal allergies. 11. Tobacco use. PAST SURGICAL HISTORY: 1. History of appendectomy. 2. Three back surgeries. 3. Two C-sections. MEDICATIONS: 1. Xarelto 20 mg p.o. daily. 2. Oxygen at bedtime. 3. Fentanyl patch 100 mcg every 72 hours. 4. Zolpidem 10 mg at bedtime. 5. Trazodone 50 mg at bedtime. 6. Imitrex 50 mg daily as needed. 7. Prazosin 4 mg at bedtime. 8. MiraLax 17 g twice a day. 9. Opana ER 20 mg b.i.d. 10. Oxycodone 10 mg 4 times a day as needed. 11. Nicotine inhaler 10, inhaled every 2 hours as needed. 12. Remeron 45 mg at bedtime. 13. Gabapentin 300 mg at bedtime, and 100 mg 3 times a day. 14. Lexapro 40 mg at bedtime. 15. Vitamin D 50,000 units weekly. 16. Zyrtec 10 mg daily. 17. Brexpiprazole 2 mg at bedtime. 18. Alprazolam 1 mg 4 times a day as needed. ALLERGIES: 1. VENLAFAXINE. 2. COMPAZINE. 3. PHENERGAN. 4. TEGADERM. 5. MILK PROTEIN EXTRACT. 6. MILK RELATED COMPOUND. SOCIAL HISTORY: The patient lives at home with her two children, 12 and 15 year old. Her health care proxy is her dad, Rafael, and secondary is her aunt, Silvia. She is still smoking, down to a quarter pack per day, smoked a pack per day for the past 20 years. No alcohol or illicit drug use. She is on disability for her back. She is . Her father's phone number is [phone], Rafael Ashby. FAMILY HISTORY: Reviewed, noncontributory. REVIEW OF SYSTEMS: As mentioned in the HPI. PHYSICAL EXAMINATION VITAL SIGNS: T-max 102.4, pulse rate 109, respiratory rate 16, oxygen saturation 96% on 2 liters. Blood pressure 124/62. GENERAL: No acute distress, resting comfortably with her aunt at the bedside. HEENT: Neck supple, no lymphadenopathy. Oropharynx, mucous membranes are moist. The patient has white patches in the posterior oropharynx with a few ulcerated lesions on the buccal mucosa. Pupils are equal and reactive, anicteric. Head normocephalic. CARDIAC: Tachycardia. No murmurs, rubs, or gallops. RESPIRATORY: Diminished breath sounds. No wheezing, rhonchi or rales. ABDOMEN: Soft, nondistended. She has some tenderness on the left side. No rebound or guarding. EXTREMITIES: No clubbing, cyanosis, or edema. +2 DP's. DERM: The patient with red blanching erythematous patches on her hands bilaterally with skin peeling bilaterally. NEUROLOGIC: Alert and oriented x3. No focal neurologic deficits. No nuchal rigidity. LABORATORY DATA: White count 1.7, hemoglobin 11.7, hematocrit 36, platelets 220. Absolute neutrophils 0.1, lymphocytes 75. Sodium 134, potassium 3.8, chloride 100, bicarb 30, BUN 6, creatinine 0.66, glucose 121, CRP 76. RADIOGRAPHIC DATA: Chest x-ray no significant findings. ASSESSMENT: This is a 41-year-old year old female with a past medical history of metastatic breast cancer, on chemotherapy, who presents with a fever, found to be neutropenic, being admitted for neutropenic fever. 1. Neutropenic fever. Assessment: The patient's main symptom is not feeling well and fever. No other real focal findings except for her hands with the red patches and the skin peeling, which could be related to the chemotherapy; it could be hand, foot and mouth disease. Her son had a URI illness and concern for influenza, waiting for the results to come back for that. We will treat accordingly if it is positive. Plan: Followup on the blood cultures, one was attained from the port, one peripherally. Continue her on cefepime 2 g q. 8 hours and IV fluids, and we will notify Oncology for them to take over in the morning. Oral Thrush - Resume nystatin 2. Chronic medical problems. We will resume her medications as prescribed for her. Sleep medications - will order them p.r.n. and her narcotics p.r.n. as well as she seems very sleepy at this time. 3. FEN. Regular diet with IV fluids. 4. DVT prophylaxis. High risk; the patient is on Xarelto. 5. Code status. Full code. PATIENT TIME: Greater than 75 minutes were spent doing the history and physical ; more than half the time was spent in direct patient contact. CC: Dr. Richardson and Dr. Cordova.* [id number]/CPS #: [id number] [facility]
--- NOTE | 2016-09-26 08:10 | RAD ---
INDICATION: Neutropenic fever; on chemotherapy. COMPARISON: September 07, [address] August 09, 2016 chest radiograph. TECHNIQUE: Dual energy PA and routine lateral views of the chest were obtained. REPORT: Obese body habitus limits image quality. The lungs and pleural spaces are grossly clear. Upper normal heart size. Unremarkable central pulmonary vasculature and mediastinal contours. LEFT chest port tip at level of RIGHT atrium. IMPRESSION: No compelling evidence for pneumonia.
[2016-09-26] MEDS: Gabapentin CAP(*) 100 MG PO SCH ×3 (08:49→22:26)
[2016-09-26] MEDS: Rivaroxaban TAB(*) 20 MG TAB PO SCH (08:49)
[2016-09-26] MEDS: Acetaminophen TAB* 325 MG PO PRN ×2 (08:50→16:12)
[2016-09-26] MEDS: Polyethylene Glycol 3350* 17 GM PACKET PO SCH ×2 (08:51→22:15)
[2016-09-26] MEDS: oxyCODONE TAB* 5 MG TAB PO PRN ×2 (08:51→16:10)
[2016-09-26] MEDS: OXYMORPHONE 20 MG PO SCH ×2 (08:52→22:28)
[2016-09-26] MEDS: Cefepime(*) 2 GM in NS 0.9% 50 ML* 50 ML IVPB SCH ×2 (10:11→18:34)
[2016-09-26 11:16] LABS: Urine Bilirubin Negative (Negative); Urine Glucose Negative (Negative); Urine Nitrite Negative (Negative)
[2016-09-26] MEDS: NS 0.9% 1000 ML* 1,000 ML IV SCH (21:40)
[2016-09-26] MEDS: PTO: Escitalopram (NF) 20 MG TAB PO SCH (22:24)
[2016-09-26] MEDS: Gabapentin CAP(*) 300 MG PO SCH (22:25)
[2016-09-26] MEDS: Mirtazapine TAB* 15 MG PO SCH (22:27)
[2016-09-26] MEDS: REXULTI 2 MG PO SCH (22:27)
[2016-09-26] MEDS: Prazosin CAP* 1 MG PO SCH (22:29)
[2016-09-27] MEDS: Cefepime(*) 2 GM in NS 0.9% 50 ML* 50 ML IVPB SCH ×3 (01:35→17:45)
[2016-09-27] MEDS: oxyCODONE TAB* 5 MG TAB PO PRN ×2 (04:17→17:45)
[2016-09-27] MEDS: NS 0.9% 1000 ML* 1,000 ML IV SCH ×2 (06:23→14:23)
[2016-09-27] MEDS: fentaNYL Patch Check Q Shift 1 NOTE SCH (06:29)
[2016-09-27] MEDS: Acetaminophen TAB* 325 MG PO PRN ×2 (06:39→20:29)
[2016-09-27] MEDS: Gabapentin CAP(*) 100 MG PO SCH ×3 (08:32→20:31)
[2016-09-27] MEDS: OXYMORPHONE 20 MG PO SCH ×2 (08:33→20:26)
[2016-09-27] MEDS: Polyethylene Glycol 3350* 17 GM PACKET PO SCH ×2 (08:34→20:32)
[2016-09-27] MEDS: Magic M W2 Ben/Maal/Nyst/Lido* 240 ML MOUTHWASH (alt formulation) SWISH SWAL SCH ×4 (08:34→20:22)
[2016-09-27] MEDS: Rivaroxaban TAB(*) 20 MG TAB PO SCH (09:18)
[2016-09-27 09:45] LABS: Hematocrit 32 % (35-47); Hemoglobin 10.4 g/dl (12.0-16.0); Mean Corpuscular HGB Conc 33 g/dl (31-36); Mean Corpuscular Hemoglobin 32 pg (27-31); Mean Corpuscular Volume 96 fL (80-97); Mean Platelet Volume 8 um3 (7.4-10.4); Red Blood Count 3.28 10^6/ul (4.0-5.4); Red Cell Distribution Width 16 % (10.5-15)
[2016-09-27 09:52] LABS: Comments Flag Yes
[2016-09-27 09:55] LABS: Add Diff/Slide Review? Slide Review Added
[2016-09-27 10:04] LABS: BUN/Creatinine Ratio 7.4 (8-20); Calcium 7.9 mg/dL (8.6-10.3); EGFR African American 123.9 (>60); EGFR Non-African American 96.3 (>60); Potassium 3.7 mmol/L (3.5-5.0)
[2016-09-27 10:16] LABS: Eosinophils % 1 % (0-6); Immature Granulocytes 1 % (0-9); Metamyelocytes % 1 % (0-2); Neutrophil % 12 % (38-83)
[2016-09-27 10:17] LABS: Basophilic Stippling 1+
[2016-09-27 10:18] LABS: White Blood Count 2.5 10^3/ul (3.5-10.8)
[2016-09-27] MEDS: REXULTI 2 MG PO SCH (20:23)
[2016-09-27] MEDS: PTO: Escitalopram (NF) 20 MG TAB PO SCH (20:27)
[2016-09-27] MEDS: Prazosin CAP* 1 MG PO SCH (20:28)
[2016-09-27] MEDS: Mirtazapine TAB* 15 MG PO SCH (20:30)
[2016-09-27] MEDS: Gabapentin CAP(*) 300 MG PO SCH (20:31)
[2016-09-28] MEDS: NS 0.9% 1000 ML* 1,000 ML IV SCH (00:31)
[2016-09-28] MEDS: Cefepime(*) 2 GM in NS 0.9% 50 ML* 50 ML IVPB SCH ×3 (02:28→15:37)
[2016-09-28] MEDS: oxyCODONE TAB* 5 MG TAB PO PRN ×2 (05:50→12:55)
[2016-09-28 06:26] LABS: BUN/Creatinine Ratio 9.8 (8-20); Calcium 8.1 mg/dL (8.6-10.3); EGFR African American 140.4 (>60); EGFR Non-African American 109.2 (>60); Potassium 3.9 mmol/L (3.5-5.0)
[2016-09-28 07:50] VITALS: BP 115/52
[2016-09-28] MEDS ORDERED: fentaNYL PATCHs 100 MCG/HR TRANSDERM SCH (09:00)
[2016-09-28] MEDS: OXYMORPHONE 20 MG PO SCH (09:03)
[2016-09-28] MEDS: Gabapentin CAP(*) 100 MG PO SCH ×2 (09:03→12:55)
--- NOTE | 2016-09-28 09:05 | PN ---
Progress Note - Progress Note SOAP: Subjective: []Hasn't been feeling that great over the last couple days, but really biggest complaint is back pain. This is long standing and denies significant change, noting only that it has been poorly controlled while admitted (likely r/t holding transdermal patch with fevers). Also concerned about need for O2, though denies SOB and difficulty breathing. No cough or sore throat. Regular BMs and no urinary complaints. Eating and drinking without difficulty. Medications: Acetaminophen (Tylenol Tab*) 650 mg PO Q4H PRN PRN Reason: FEVER/PAIN Last Admin: 09/27/16 20:29 Dose: 650 mg Al Hydrox/Mg Hydrox/Simethicone (Maalox Plus*) 30 ml PO Q6H PRN PRN Reason: INDIGESTION Albuterol/Ipratropium (Duoneb Neb.Stacie*) 1 neb INH [id number] AWAKE PRN PRN Reason: sob/wheezing Alprazolam (Xanax Tab*) 1 mg PO Q6H PRN PRN Reason: ANXIETY Device (Nicotine Mouth Piece*) 1 each INH .USE WITH NICOTROL PRN PRN Reason: CRAVING Docusate Sodium (Colace Cap*) 100 mg PO BID PRN PRN Reason: CONSTIPATION Last Admin: 09/27/16 20:29 Dose: 100 mg Escitalopram Oxalate (Lexapro (Nf)) 40 mg PO BEDTIME [facility] Last Admin: 09/27/16 20:27 Dose: 40 mg Gabapentin (Neurontin Cap(*)) 100 mg PO TID [facility] Last Admin: 09/27/16 20:31 Dose: 100 mg Gabapentin (Neurontin Cap(*)) 300 mg PO BEDTIME [facility] Last Admin: 09/27/16 20:31 Dose: 300 mg Cefepime HCl 2 gm/ Sodium (Chloride) 50 mls @ 100 mls/hr IVPB Q8H [facility] Last Admin: 09/28/16 02:28 Dose: 100 mls/hr Sodium Chloride (Ns 0.9% 1000 Ml*) 1,000 mls @ 125 mls/hr IV PER RATE [facility] Last Admin: 09/28/16 00:31 Dose: 125 mls/hr Mirtazapine (Remeron Tab*) 45 mg PO BEDTIME [facility] Last Admin: 09/27/16 20:30 Dose: 45 mg Multi-Ingredient Mouthwash/Gargle (Magic M W2 Neville/Maal/Nyst/Lido*) 5 ml SWISH SWAL QID [facility] Last Admin: 09/27/16 20:22 Dose: 5 ml Nicotine (Nicotine Inhaler*) 10 mg INH Q2H PRN PRN Reason: CRAVING Pto: Rexulti 2mg Tab 1 dose PO BEDTIME [facility] Last Admin: 09/27/16 20:23 Dose: 1 dose Ondansetron HCl (Zofran Inj*) 4 mg IV Q4H PRN PRN Reason: NAUSEA/VOMITING Oxycodone HCl (Roxycodone Tab*) 10 mg PO Q6H PRN PRN Reason: PAIN Last Admin: 09/28/16 05:50 Dose: 10 mg Oxymorphone HCl (Opana Er (Nf)) 20 mg PO Q12H [facility] Last Admin: 09/27/16 20:26 Dose: 20 mg Pharmacy Profile Note (Fentanyl Patch Check Q Shift) 1 note N/A 0700,1900 [facility] Polyethylene Glycol/Electrolytes (Miralax*) 17 gm PO BID [facility] Last Admin: 09/27/16 20:32 Dose: Not Given Prazosin HCl (Minipress Cap*) 4 mg PO BEDTIME [facility] Last Admin: 09/27/16 20:28 Dose: 4 mg Rivaroxaban (Xarelto (*)) 20 mg PO DAILY [facility] Last Admin: 09/27/16 09:18 Dose: 20 mg Senna (Senokot Tab*) 1 tab PO BID PRN PRN Reason: CONSTIPATION Last Admin: 09/27/16 20:28 Dose: 1 tab Trazodone HCl (Desyrel Tab*) 50 mg PO BEDTIME PRN PRN Reason: SLEEP Last Admin: 09/27/16 20:41 Dose: 50 mg Zolpidem Tartrate (Ambien Tab*) 10 mg PO BEDTIME PRN PRN Reason: INSOMNIA Objective: [] Vital Signs Temp Pulse Resp BP Pulse Ox 98.7 F 87 18 115/52 97 09/28/16 07:43 09/28/16 07:43 09/28/16 07:43 09/28/16 07:43 09/28/16 07:43 A&Ox3, PERRLA, EOMI, neuro grossly non-focal, SOW HRR, S1S2, no murmur noted LS clear bilat., resp. even and non-labored +BS, abd. soft and non-tender +PP=bilat., no edema noted Laboratory Results - last 24 hr 09/27/16 09/27/16 09/27/16 08:45 08:45 08:45 WBC 2.5 L RBC 3.28 L Hgb 10.4 L Hct 32 L MCV 96 MCH 32 H MCHC 33 RDW 16 H Plt Count 223 MPV 8 Immature Gran % (Auto) 1 Neut % (Auto) 10.9 L Lymph % (Auto) 59.4 H Morton % (Auto) 24.4 H Eos % (Auto) 4.3 Baso % (Auto) 1.0 Absolute Neuts (auto) 0.3 L Absolute Lymphs (auto) 1.5 Absolute Monos (auto) 0.6 Absolute Eos (auto) 0.1 Absolute Basos (auto) 0 Absolute Nucleated RBC 0.13 Neutrophils % 12 L Lymphocytes % 66 H Monocytes % 20 H Eosinophils % 1 Metamyelocytes % 1 Nucleated RBC % Not Reportable Nucleated RBCs/100 WBC 5 H Normal RBC Morphology Not Reportable Basophilic Stippling 1+ Sodium 136 Potassium 3.7 Chloride 105 Carbon Dioxide 28 Anion Gap 3 BUN 5 L Creatinine 0.68 Est GFR ( Amer) 123.9 Est GFR (Non-Af Amer) 96.3 BUN/Creatinine Ratio 7.4 L Glucose 122 H Lactic Acid 1.4 Calcium 7.9 L 09/28/16 05:30 WBC RBC Hgb Hct MCV MCH MCHC RDW Plt Count MPV Immature Gran % (Auto) Neut % (Auto) Lymph % (Auto) Morton % (Auto) Eos % (Auto) Baso % (Auto) Absolute Neuts (auto) Absolute Lymphs (auto) Absolute Monos (auto) Absolute Eos (auto) Absolute Basos (auto) Absolute Nucleated RBC Neutrophils % Lymphocytes % Monocytes % Eosinophils % Metamyelocytes % Nucleated RBC % Nucleated RBCs/100 WBC Normal RBC Morphology Basophilic Stippling Sodium 139 Potassium 3.9 Chloride 109 Carbon Dioxide 27 Anion Gap 3 BUN 6 Creatinine 0.61 Est GFR ( Amer) 140.4 Est GFR (Non-Af Amer) 109.2 BUN/Creatinine Ratio 9.8 Glucose 111 H Lactic Acid Calcium 8.1 L Assessment: []41 yo female with stage IV breast cancer s/p C2 Docetaxel, Trastuzumab, and Pertuzumab (Kamini regimen) now day 12 admitted 2 days ago with neutropenic fever, defervesed approx. 12 hrs ago. Overall feeling well with only complaint r/t chronic back pain. Plan: []1. Neutropenic fever: ANC 300 with increasing monocytes therefore may be able to d/c within next 24-48 hrs, would like ANC at least >500 with negative cultures. Continue broad spectrum IV abx. with plan to transition to PO on d/ c. Continue neutropenic precautions. BP stable and will d/c fluids for now. 2. Hypoxia: no other symptoms and may be r/t body habitus, but to be cautious will recheck CXR (?ddx: fluid overload despite lack of adventitious sounds vs. prominent PNA vs. effusion; unlikely PE with anti-coagulation and lack of resp. distress), check ambulatory O2, and enc.'d incentive spirometry 3. Chronic Back Pain: managed by Dr. Livingston ([place], [place]; [phone]), confirmed current regimen and will restart Fentanyl (no longer febrile) as well as hydromorphone (as well as oxycodone, started with prior admit)
[2016-09-28] MEDS: Rivaroxaban TAB(*) 20 MG TAB PO SCH (09:07)
[2016-09-28] MEDS: Polyethylene Glycol 3350* 17 GM PACKET PO SCH (09:07)
[2016-09-28] MEDS: Magic M W2 Ben/Maal/Nyst/Lido* 240 ML MOUTHWASH (alt formulation) SWISH SWAL SCH ×2 (09:07→12:40)
[2016-09-28] MEDS ORDERED: HYDROmorphone TAB* 4 MG PO PRN (09:24)
[2016-09-28 10:40] LABS: Comments Flag Yes; Hematocrit 32 % (35-47); Hemoglobin 10.7 g/dl (12.0-16.0); Mean Corpuscular HGB Conc 34 g/dl (31-36); Mean Corpuscular Hemoglobin 32 pg (27-31); Mean Corpuscular Volume 95 fL (80-97); Mean Platelet Volume 8 um3 (7.4-10.4); Red Blood Count 3.38 10^6/ul (4.0-5.4); Red Cell Distribution Width 16 % (10.5-15); White Blood Count 2.9 10^3/ul (3.5-10.8)
--- NOTE | 2016-09-28 11:52 | RAD ---
HISTORY: Hypoxia COMPARISONS: September 26, 2016 VIEWS: 2: Frontal dual-energy and lateral views of the chest. FINDINGS: CARDIOMEDIASTINAL SILHOUETTE: The cardiomediastinal silhouette is normal. DRE: The dre are normal. PLEURA: The costophrenic angles are sharp. No pleural abnormalities are noted. LUNG PARENCHYMA: There is mild diffuse reticular pattern of opacification ABDOMEN: The upper abdomen is clear. There is no subphrenic gas. BONES AND SOFT TISSUES: No bone or soft tissue abnormalities are noted. OTHER: There is a left-sided chest port from a subclavian approach with the tip overlying the cavoatrial junction IMPRESSION: MILD INTERSTITIAL EDEMA
--- NOTE | 2016-09-28 14:36 | DS ---
- Discharge Summary DISCHARGE SUMMARY: Admission Date: 09/26/16 Discharge Date: 09/28/16 Discharge Diagnosis: 1. Neutropenic Fever: resolving, no growth on cultures 2. Back pain: chronic, resuming home pain plan per Dr. Livingston 3. Metastatic Breast Cancer: s/p C2 THP, f/u 10/02 Discharge Medications: Resume all home meds 1. Fentanyl 100 mcg transdermal q72hrs 2. Hydromorphone 4 mg PO q6hrs PRN pain 3. Oxycodone 10 mg PO q6hrs PRN pain 4. Tramadol 300 mg PO qHS 5. Opana ER 20 mg PO BID 6. Gabapentin 100 mg PO TID 7. Gabapentin 300 mg PO qHS 8. Sumatriptin 50 mg PO TID PRN HAs 9. Butalbital/APAP/Caffeine 50/325/40mg PO daily PRN 10. Alprazolam 1 mg PO QID PRN anxiety/sleep 11. Cholecalciferol 50,000 units PO q7days 12. Dexamethasone 4mg as directed with chemo 13. Mirtazapine 45 mg PO daily 14. Ondansetron 4 mg PO q4hrs PRN nausea 15. Prazosin 2 mg PO daily 16. Rexulti 2 mg PO qHS 17. Xarelto 20 mg PO daily 18. Zolpidem 10 mg PO qHS PRN insomnia 19. Ceterizine 10 mg PO qHS 20. * Levaquin 750 mg PO daily x2 starting tomorrow Hospital Course: Please see admission note for full H&P however briefly Ms. Guevara is well known to our service due to her unfortunate dx. of metastatic breast cancer c/b recent ovarian thrombosis and now with admission for neutropenic fever D10 of C2 THP. She was started on broad spectrum IV abx. on admission with berumen- cultures and approx. 24 hrs after admission she defervesed. Today her ANC has improved to 1000 and she remains asymptomatic (albeit with cont.'d back pain, chronic) and is anxious to be d/c'd home. As her cultures have all been negative to date we will complete IV abx today for total of 3 days (and now 24 hours afebrile), then do 2 days of Levaquin (starting tomorrow), and d/c home. She has had mild hypoxia with negative work-up and felt to be related to mild resp. depression (multiple narcotics) and body habitus. She will f/u in our office on 10/[address] Cordova as scheduled. She has been instructed to otherwise restart all home meds with pain plan per Dr. Livingston.
[2016-09-28] MEDS ORDERED: fentaNYL Patch Check Q Shift 1 NOTE SCH (19:00)
== END 2016-09-28 16:40 | disposition home health service (06) | DRG 660 ==
LOC: ED 23:01 → MED 09-26 02:04
PROVIDERS: ADMIT Pediatrics; ATTEND Internal Medicine Hematology & Oncology
DX: D70.9 Neutropenia, unspecified (principal); C78.7 Secondary malignant neoplasm of liver and intrahepatic bile duct; B37.0 Candidal stomatitis; I82.890 Acute embolism and thrombosis of other specified veins; C79.51 Secondary malignant neoplasm of bone; K51.90 Ulcerative colitis, unspecified, without complications; Z99.81 Dependence on supplemental oxygen; R50.81 Fever presenting with conditions classified elsewhere; C50.919 Malignant neoplasm of unspecified site of unspecified female breast; G89.29 Other chronic pain; F32.9 Major depressive disorder, single episode, unspecified; G43.909 Migraine, unspecified, not intractable, without status migrainosus; K59.00 Constipation, unspecified; G47.00 Insomnia, unspecified; J30.2 Other seasonal allergic rhinitis; F17.210 Nicotine dependence, cigarettes, uncomplicated; R11.0 Nausea; E78.00 Pure hypercholesterolemia, unspecified; M19.90 Unspecified osteoarthritis, unspecified site; F41.0 Panic disorder [episodic paroxysmal anxiety]; F43.10 Post-traumatic stress disorder, unspecified; M54.9 Dorsalgia, unspecified; R09.02 Hypoxemia; T40.605A Adverse effect of unspecified narcotics, initial encounter; Z92.21 Personal history of antineoplastic chemotherapy; Z88.8 Allergy status to other drugs, medicaments and biological substances; Z91.011 Allergy to milk products; Z91.048 Other nonmedicinal substance allergy status; Z91.5 Personal history of self-harm; Z72.89 Other problems related to lifestyle; Z79.01 Long term (current) use of anticoagulants
CPT/HCPCS: 36415; 71020; 80048; 80053; 81003; 83605; 83735; 84443; 84484; 85025; 86140; 87040; 87502; 94760; 99232; 99239; 99406; A9270-GY; J0692; J1170; J1642; J2405

== ENCOUNTER 2016-10-02 11:49 | Inpatient (IN) | payer OTHER ==
[2016-10-02] MEDS ORDERED: Ondansetron INJ* 2 MG/ML VIAL IV ONE (11:56)
[2016-10-02] MEDS ORDERED: Ondansetron INJ* 2 MG/ML VIAL ONE (11:57)
[2016-10-02] MEDS: NS 0.9% 1000 ML* 1,000 ML IV ONE ×2 (12:00→13:15)
[2016-10-02 12:18] LABS: Hematocrit 36 % (35-47); Hemoglobin 11.4 g/dl (12.0-16.0); Mean Corpuscular HGB Conc 32 g/dl (31-36); Mean Corpuscular Hemoglobin 31 pg (27-31); Mean Corpuscular Volume 97 fL (80-97); Mean Platelet Volume 8 um3 (7.4-10.4); Red Cell Distribution Width 17 % (10.5-15); White Blood Count 19.7 10^3/ul (3.5-10.8)
[2016-10-02 12:24] LABS: Add Diff/Slide Review? Slide Review Added; Comments Flag Yes
[2016-10-02 12:31] LABS: ALT 44 U/L (7-52); AST 40 U/L (13-39); Albumin 3.5 g/dL (3.2-5.2); Alkaline Phosphatase 73 U/L (34-104); Anion Gap 6 mmol/L (2-11); BUN/Creatinine Ratio 5.1 (8-20); Blood Urea Nitrogen 10 mg/dL (6-24); CO2 Carbon Dioxide 27 mmol/L (22-32); Chloride 103 mmol/L (101-111); EGFR African American 36.7 (>60); EGFR Non-African American 28.6 (>60); Glucose 151 mg/dL (70-100); Potassium 4.4 mmol/L (3.5-5.0); Sodium 136 mmol/L (133-145); Total Protein 6.5 g/dL (6.4-8.9)
[2016-10-02 12:41] LABS: Acetaminophen < 15 mcg/mL; Alcohol < 10 mg/dL (<10); Salicylate < 2.50 mg/dL (<30)
[2016-10-02] MEDS ORDERED: Piperac/Tazob 3.375 gm in NS* 3.375 GM/100 ML BAG IVPB ONE (12:48)
[2016-10-02] MEDS ORDERED: NS 0.9% 1000 ML* 1,000 ML IV ONE (12:48)
[2016-10-02 13:02] LABS: Eosinophils % 2 % (0-6); Immature Granulocytes 2 % (0-9); Neutrophil % 84 % (38-83)
[2016-10-02 13:04] LABS: Hypochromasia 1+; Macrocytosis 1+; Polychromasia 1+
[2016-10-02 13:55] LABS: Urine Bacteria Absent (Absent); Urine Bilirubin Negative (Negative); Urine Glucose Negative (Negative); Urine Nitrite Negative (Negative)
--- NOTE | 2016-10-02 13:56 | RAD ---
HISTORY: Sepsis COMPARISONS: September 28, 2016 VIEWS:1: Single frontal portable view of the chest at 1:30 PM FINDINGS: LINES AND TUBES: There is left-sided chest port from a subclavian approach with the tip overlying the superior vena cava. CARDIOMEDIASTINAL SILHOUETTE: The cardiac silhouette is enlarged. The cardiomediastinal silhouette is otherwise normal for portable technique. PLEURA: The costophrenic angles are sharp. No pleural abnormalities are noted. LUNG PARENCHYMA: There is a diffuse reticular pattern with indistinct pulmonary vessels. The lung volumes are low ABDOMEN: The upper abdomen is clear. There is no subphrenic gas. BONES AND SOFT TISSUES: No bone or soft tissue abnormalities are noted. IMPRESSION: 1. LINES AND TUBES ABOVE. 2. CARDIOMEGALY. 3. PULMONARY INTERSTITIAL EDEMA
--- NOTE | 2016-10-02 14:27 | HP ---
H&P (Free Text) History and Physical: Critical Care Medicine Admission Note (H&P) 41 yo female with metastatic breast CA who presents to hospital today with obtundation, hypotension, tachycardia, and leucocytosis. Patient has chronic pain issues with "poor tolerance" of pain per family. Appartently in the past week her Dilaudid dose was doubled and she has a Fentanyl patch. In ER she received a dose of Narcan with "moderate response" per ER nurse. Nurse also removed the Fentanyl patch. Also she was given a liter of NS with a 2nd liter hanging now and antibiotic (Zosyn) initiated out of concern for sepsis. Patient is able to relate having a cough develop last night and she relates having chills/rigors overnight. Family relates that in brief episodes of wakefulness earlier, she exhibitted lots of audible respiratory congestion which she would clear. They relate she has been sleeping a lot of late and thus taking PO poorly....however tries her best to nourish and hydrate when awake. Apparently ER attending called her Oncologist who asked that the patient be referred to me for admission. Allergy Venlafaxine, Prochlorperazine, Promethazine, Adhesive tape PMH Metastatic Breast Ca - to spine and liver now s/p 2nd cycle of current chemotx regimen, s/p admission to hospital with neutropenic fever, Mediport, Ovarian Vein Thrombosis, Appendectomy, x2, Insomnia, Depression, Anxiety, Chronic Pain, Back Surgery x3, Headache Soc Father is HCP, has 2 children ROS denies chest pain denies dyspnea SBP 101 HR 102 RR 8-18 SpO2 96 (FM) Skin no diaphoresis, no cyanosis, (+)Alopecia Sclerae anicteric Oral mucosa pink Lt chest with SQ-port Lungs with bilateral BS, no wheezes Cor RRR no rub, nomurmur Abd obese, soft reina Ext mod edema Bilateral arm PIVs WBC 19.7 Hgb 11.4 Plt 365 K 4.1 HCO3 27 BUN/Creat 10/1.9 Trop 2.1 ECG...ST, overall similar to previous ECGs over last couple years CXR small lung volumes ??Rt perihilar consolidation IMP: Encephalopathy likely secondary to opiate accumulation and unintentional overdose...subsiding now, possible interplay with hypovolemia and possibly sepsis due to pneumonia Hypotension...likely hypovolemia given poor PO intake as described above but may also have interplay of sepsis Acute Kidney injury due to hypovolemia and hypotension Elevated Troponin...??demand related injury?? Chronic Pain with apparent poor pain tolerance per family Hx Depression and Anxiety and Insomnia Metastatic Breast Ca (Spine and Liver) receiving chemotherapy therefor is immune-suppressed Hx Ovarian Vein Thrombosis on Xarelto Anasarca Anemia...adequate Hgb PLAN/REC: To admit to ICU for close monitoring and observation IV Hydration Check lactate Blood, Urine, and Sput Cxs Continue Zosyn Add Vanco given recent course of systemic Abx placing patient at risk for MDR pathogens Hold Opiates for now and re-introduce slowly Keep HOB raised Check Coags if not done Serial cardiac enzymes ECHO Discussed with family at bedside...briefly touched on topic of Code Status...for now she is to remain full code with an interventions necessary to be applied T>35 min, CCM services rendered
[2016-10-02] MEDS ORDERED: Vancomycin per Pharmacy* NOTE FOLLOW UP PRN (14:41)
[2016-10-02] MEDS ORDERED: NS 0.9% 1000 ML* 1,000 ML IV SCH (14:45)
[2016-10-02] MEDS ORDERED: Vancomycin(*) 1,500 MG in NS 0.9% 250 ML* 250 ML IVPB ONE (15:00)
--- NOTE | 2016-10-02 16:50 | ECHO ---
Patient: JIMENEZ ALMONTE [facility] Rec#: [id number] : 1975 Date: 10/02/2016 Age: 41y Height: 167.6 cm / 66.0 in Weight: 118.4 kg / 261.0 lbs Sex: F BSA: 2.2 Room#: ICU 9 Admit Date#: 10/02/2016 Type: Inpatient Referring: Paul Dominguez MD Reading: Christian Ramos MD Pick Up Worker: Tarsha Jennings RN RDCS CC: Marleni Richardson MD Transthoracic Echocardiogram Indication: Hypotension, elevated troponin BP: 106/62 HR: 97 Rhythm: NSR Findings History: HTN, HLD, DEMETRIO, obesity, smoker, metastatic breast cancer, chemotherapy, ovarian vein thrombosis, chronic pain Technical Comments: The study is technically limited due to patient body habitus. The study is technically limited due to the patient's smoking history. The study was technically limited due to the patient's inability to lay in the left lateral decubitus position. Completed at 1645. Left Ventricle: The left ventricular chamber size is decreased. Septal wall hypertrophy is observed. Mild global hypokinesis of the left ventricle is observed. The estimated ejection fraction is 45-50%. There is septal flattening of the interventricular septum consistent with right ventricular volume or pressure overload. The assessment of diastolic function is non-diagnostic. The patient was unable to perform a Valsalva maneuver. Left Atrium: The left atrial chamber size is normal. Right Ventricle: The right ventricle is moderately dilated. The right ventricular global systolic function is moderately reduced. Right Atrium: The right atrial cavity size is normal. Aortic Valve: The aortic valve structure is not well visualized. There is no evidence of aortic regurgitation. There is no evidence of aortic stenosis. Mitral Valve: The mitral valve leaflets appear normal. There is no evidence of mitral regurgitation. There is no evidence of mitral stenosis. Tricuspid Valve: The tricuspid valve leaflets are normal. There is mild tricuspid regurgitation. There is evidence that pulmonary hypertension may be underestimated. There is no tricuspid stenosis. Pulmonic Valve: The pulmonic valve structure is not well visualized. There is mild pulmonic regurgitation. There is no pulmonic stenosis. Pericardium: There is no significant pericardial effusion. A pericardial fat pad is visualized. Aorta: There is no dilatation of the ascending aorta. There is no dilatation of the aortic arch. The aortic root is normal in size. Pulmonary Artery: The main pulmonary artery is not well visualized. Venous: The venous system is not well visualized. The inferior vena cava is not visualized. Conclusions The study is technically limited due to patient body habitus. The study is technically limited due to the patient's smoking history. The left ventricular chamber size is decreased. Mild global hypokinesis of the left ventricle is observed. The estimated ejection fraction is 45-50%. There is septal flattening of the interventricular septum consistent with right ventricular volume or pressure overload. The right ventricle is moderately dilated. The right ventricular global systolic function is moderately reduced. There is mild tricuspid regurgitation. There is evidence that pulmonary hypertension may be underestimated. There is mild pulmonic regurgitation. Compared to report and review of images from 09/10/2016 the RV is now larger and hypokinetic as described. The septal flattening of the LV is new and abnormal septal motion is noted. These results and review of images were shared with Dr. Dominguez education intern. Measurements Name Value Normal Range RVIDd (AP) 2D 4.4 cm (0.9 - 2.6) RVDdMajor (2D) 4.2 cm (2.2 - 4.4) RAd ISD 4CH 4.5 cm (3.4 - 4.9) RA (A4C)W 3.9 cm (2.9 - 4.6) IVSd (2D) 1.3 cm (0.6 - 1) LVPWd (2D) 1 cm (0.6 - 1) LVIDd (2D) 2.9 cm (3.6 - 5.4) Aortic Annulus 1.7 cm (1.4 - 2.6) Ao root diameter (2D) 2.3 cm (2.1 - 3.5) Ascending Ao 2.7 cm (2.1 - 3.4) Aortic arch 2.1 cm (1.8 - 3.4) LA dimension (AP) 2D 2.9 cm (2.3 - 3.8) LAd ISD 4CH 4.5 cm (2.9 - 5.3) LA ISD 4CH W 3.6 cm (2.5 - 4.5) Name Value Normal Range LA ESV SP 4CH (A/L) 43 ml - LA ESV SP 2CH (A/L) 25 ml - LA ESV BP (A/L) 37 ml - LA ESV BP (A/L) index 16.5 ml/m2 - LA ESV SP 4CH (MOD) 39 ml - LA ESV SP 2CH (MOD) 24 ml - Name Value Normal Range MV E-wave Vmax 0.85 m/sec - MV deceleration time 204 msec - MV A-wave Vmax 0.7 m/sec - MV E:A ratio 1.2 ratio - LV septal e' Vmax 0.09 m/sec - LV lateral e' Vmax 0.12 m/sec - LV E:e' septal ratio 9.4 ratio - LV E:e' lateral ratio 7.1 ratio - Name Value Normal Range AV Vmax 1.2 m/sec - LVOT Vmax 1 m/sec - FABIAN Vmax 1 m/sec - Name Value Normal Range TR Vmax 2 m/sec - TR peak gradient 16 mmHg - RAP 8 mmHg - RVSP 24 mmHg - Name Value Normal Range PV Vmax 0.56 m/sec -
[2016-10-02] MEDS ORDERED: Mirtazapine TAB* 15 MG PO PRN (16:52)
[2016-10-02] MEDS ORDERED: Butalb/Acetamin/Caff TAB* 1 TAB PO PRN (16:55)
[2016-10-02] MEDS ORDERED: Heparin VIAL(*) 5000 UNITS/ML VIAL (FIVE THOUSAND) IV SCH (17:00)
[2016-10-02] MEDS ORDERED: Piperac/Tazob 3.375 gm in NS* 3.375 GM/100 ML BAG IVPB SCH (17:00)
[2016-10-02] MEDS ORDERED: SUMAtriptan TAB* 50 MG PO PRN (17:00)
[2016-10-02] MEDS: Piperac/Tazob 3.375 gm in NS* 3.375 GM/100 ML BAG IVPB SCH (17:35)
[2016-10-02] MEDS: Heparin DRIP 25,000 UNITS(*) 25,000 UNITS/500 ML BAG IV SCH (17:39)
[2016-10-02 18:00] LABS: Hematocrit 34 % (35-47); Hemoglobin 10.9 g/dl (12.0-16.0); Mean Corpuscular HGB Conc 32 g/dl (31-36); Mean Corpuscular Hemoglobin 31 pg (27-31); Mean Corpuscular Volume 97 fL (80-97); Mean Platelet Volume 8 um3 (7.4-10.4); Red Blood Count 3.51 10^6/ul (4.0-5.4); Red Cell Distribution Width 17 % (10.5-15); White Blood Count 18.8 10^3/ul (3.5-10.8)
[2016-10-02 18:02] LABS: Comments Flag Yes
[2016-10-02 18:09] LABS: Benzodiazepine Urine Screen Presumptive Positive (None Detect)
[2016-10-02 18:18] LABS: Troponin I 4.5 ng/mL (<0.04)
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
[2016-10-02] MEDS: Gabapentin CAP(*) 100 MG PO SCH (22:19)
[2016-10-02] MEDS: Gabapentin CAP(*) 300 MG PO SCH (22:19)
[2016-10-03] MEDS: Piperac/Tazob 3.375 gm in NS* 3.375 GM/100 ML BAG IVPB SCH ×3 (00:42→16:52)
[2016-10-03] MEDS ORDERED: Vancomycin(*) 1,000 MG in NS 0.9% 250 ML* 250 ML IVPB SCH ×2 (03:00→11:30)
[2016-10-03 05:45] LABS: Hematocrit 31 % (35-47); Hemoglobin 10.1 g/dl (12.0-16.0); Mean Corpuscular HGB Conc 32 g/dl (31-36); Mean Corpuscular Hemoglobin 31 pg (27-31); Mean Corpuscular Volume 96 fL (80-97); Mean Platelet Volume 7 um3 (7.4-10.4); Red Blood Count 3.25 10^6/ul (4.0-5.4); Red Cell Distribution Width 17 % (10.5-15); White Blood Count 13.9 10^3/ul (3.5-10.8)
[2016-10-03 05:46] LABS: Comments Flag Yes
[2016-10-03 05:47] LABS: Add Diff/Slide Review? Slide Review Added
[2016-10-03 08:36] LABS: BUN/Creatinine Ratio 12.2 (8-20); Calcium 8.2 mg/dL (8.6-10.3); EGFR African American 99.8 (>60); EGFR Non-African American 77.6 (>60); Magnesium 2.3 mg/dL (1.9-2.7); Phosphorus 2.5 mg/dL (2.5-5.0); Potassium 3.9 mmol/L (3.5-5.0)
[2016-10-03] MEDS: Gabapentin CAP(*) 100 MG PO SCH ×3 (09:09→20:27)
--- NOTE | 2016-10-03 09:10 | PN ---
Progress Note - Progress Note Note: CCM Progress Note Brighter today No dyspnea No phlegm Is on simple FM with 10 Lpm flow....SpO2 97 Turned down flow to 6 Lpm with SpO2 remaining 96-97 SBP 108 HR 87 RR 13 Skin no diaphoresis, no cyanosis, (+)alopecia Sclerae anicteric Oral mucosa pink Lt chest with SQ-port Lungs with bilateral BS, no wheezes Cor RRR no rub, nomurmur Abd obese, soft reina Ext mod edema Lt hand PIV WBC 13.9 Hgb 10.8 Plt 259 PTT 40.1 K 3.9 BUN/Creat 10/0.8 Mg 2.3 Pi 2.5 Trop peaked at 4.5 ...now declining ECHO with new findings c/w RV pressure overload...raising concern over possibility of PE IMP: Encephalopathy likely secondary to opiate accumulation and unintentional overdose...subsided Hypotension with normal lactate...likely hypovolemia given poor PO intake Acute Kidney injury due to hypovolemia and hypotension...subsided Elevated Troponin with ECHO findings suggestive of PE with RV pressure overload...patient with history of Ovarian Vein Thrombosis on Xarelto. Also noted that during recent hospitalization (last week) there was concern raised re need for oxygen which went unexplained. Suspect subacute progression of pulmonary embolic disease in face of known VTE with metastatic breast cancer Chronic Pain with apparent poor pain tolerance per family Hx Depression and Anxiety and Insomnia Metastatic Breast Ca (Spine and Liver) receiving chemotherapy therefor is immune-suppressed Anasarca Anemia...adequate Hgb PLAN/REC: Continue in ICU for close monitoring and observation D/C IV Hydration Reg Diet Venous Duplex of legs...if DVT identified would warrant change to Heparin as done with discontinuation of Xarelto. Also if DVT identified would presume PE occurred given ECHO finding and need for O2. If DVT not found to move to CTA Chest Continue Abx coverage for present Watch cultures....nursing staff aware to try and collect Sput Cx sample Re-introduce Opiates slowly Keep HOB raised Update ECG today Requested Oncology to follow along with their patient as changes in medical regimen and condition evolve for ongoing care planning Discussed with Nurses at bedside and with the resp of the ICU Multidisciplinary team Discussed with family T>35 min [facility] services rendered
--- NOTE | 2016-10-03 09:47 | RAD ---
Indication: Bilateral leg edema. Duplex Doppler sonography of the deep venous system of both lower extremities was performed. Bilaterally the common femoral veins, proximal greater saphenous veins, proximal deep femoral veins, femoral veins, popliteal veins, posterior tibial veins and peroneal veins appear patent and compressible. IMPRESSION: NO EVIDENCE OF DEEP VENOUS THROMBOSIS OF EITHER LOWER EXTREMITY IS PRESENT.
[2016-10-03] MEDS ORDERED: NS 0.9% 1000 ML* 1,000 ML IV SCH (10:15)
[2016-10-03] MEDS ORDERED: Iodixanol* (CONTRAST) 320 MG/ML 100 ML SDV IV ONE (10:20)
--- NOTE | 2016-10-03 11:32 | RAD ---
INDICATION: Pulmonary interstitial edema. Breast cancer with hepatic and bony metastasis. Evaluate for pulmonary embolus. COMPARISON: Chest x-ray October 02, 2016 TECHNIQUE: Axial source images were obtained from the thoracic inlet to the hemidiaphragms following administration of [address] angiographic technique was utilized. Coronal and sagittal reconstructed images were acquired. CHEST FINDINGS: Neck/thyroid: The visualized neck to include the thyroid appear normal. Chest wall: There are no acute abnormalities of the bony thorax or chest wall. There are no definite osteolytic or osteoblastic lesions. A bone scan is more sensitive,. There is a right breast lesion representing a known carcinoma. There is a microclip. There is skin thickening related to either surgery or radiation therapy. There is a left-sided [id number] catheter. There is no supraclavicular, infraclavicular, or axillary lymphadenopathy. There is a prominent right axillary lymph node but this lymph node is largely fatty replaced Lungs : There is bibasilar airspace disease most consistent with atelectasis. Suggest a follow-up chest x-ray as indicated. The pulmonary interstitium remains prominent. There are no endobronchial lesions. Cardiomediastinal structures: There is no CT evidence of acute pulmonary embolic disease. The heart is normal in size. There is no pericardial effusion. There is no evidence of aortic aneurysm or dissection. There is no mediastinal or hilar adenopathy. The esophagus appears normal. Pleura : There are no pleural-based masses or effusions. Other: The liver appears enlarged. IMPRESSION: NO CT EVIDENCE OF ACUTE PULMONARY EMBOLIC DISEASE. BIBASILAR AIRSPACE DISEASE IN THE DEPENDENT PORTION OF BOTH LUNG WALKER LIKELY RELATED ATELECTASIS
[2016-10-03] MEDS: Heparin DRIP 25,000 UNITS(*) 25,000 UNITS/500 ML BAG IV SCH (12:38)
[2016-10-03] MEDS: Aspirin EC TAB* 325 MG PO SCH (12:40)
[2016-10-03] MEDS: Rivaroxaban TAB(*) 20 MG TAB PO SCH (14:30)
[2016-10-03] MEDS: Vancomycin(*) 1,000 MG in NS 0.9% 250 ML* 250 ML IVPB SCH ×2 (17:00→22:46)
[2016-10-03] MEDS: Gabapentin CAP(*) 300 MG PO SCH (20:27)
[2016-10-03] MEDS: HYDROmorphone TAB* 2 MG PO PRN (20:28)
[2016-10-03] MEDS: Zolpidem TAB* 5 MG PO PRN (21:33)
[2016-10-04] MEDS: Piperac/Tazob 3.375 gm in NS* 3.375 GM/100 ML BAG IVPB SCH (00:45)
[2016-10-04] MEDS ORDERED: Vancomycin Trough Check NOTE FOLLOW UP SCH (02:30)
[2016-10-04] MEDS ORDERED: Vancomycin Trough Check NOTE FOLLOW UP ONE (03:00)
[2016-10-04] MEDS: HYDROmorphone TAB* 2 MG PO PRN ×5 (04:14→20:19)
[2016-10-04 04:44] LABS: Hematocrit 32 % (35-47); Hemoglobin 10.5 g/dl (12.0-16.0); Mean Corpuscular HGB Conc 33 g/dl (31-36); Mean Corpuscular Hemoglobin 31 pg (27-31); Mean Corpuscular Volume 95 fL (80-97); Mean Platelet Volume 8 um3 (7.4-10.4); Red Blood Count 3.39 10^6/ul (4.0-5.4); Red Cell Distribution Width 16 % (10.5-15); White Blood Count 16.3 10^3/ul (3.5-10.8)
[2016-10-04 04:46] LABS: Add Diff/Slide Review? Slide Review Added; Comments Flag Yes
[2016-10-04 04:51] LABS: BUN/Creatinine Ratio 15.9 (8-20); Calcium 8.4 mg/dL (8.6-10.3); EGFR African American 135.3 (>60); EGFR Non-African American 105.2 (>60); Potassium 3.4 mmol/L (3.5-5.0)
[2016-10-04 05:11] LABS: Vancomycin Trough 14.8 mcg/mL
[2016-10-04 05:21] LABS: Immature Granulocytes 7 % (0-9); Metamyelocytes % 3 % (0-2); Myelocytes % 2 % (0-1); Neutrophil % 85 % (38-83); RBC Morphology Normal (Normal)
[2016-10-04] MEDS: Vancomycin(*) 1,000 MG in NS 0.9% 250 ML* 250 ML IVPB SCH (05:56)
[2016-10-04] MEDS: Aspirin EC TAB* 325 MG PO SCH (08:13)
[2016-10-04] MEDS: Gabapentin CAP(*) 100 MG PO SCH ×3 (08:13→20:28)
[2016-10-04] MEDS: Rivaroxaban TAB(*) 20 MG TAB PO SCH (08:13)
--- NOTE | 2016-10-04 08:41 | PN ---
Progress Note - Progress Note SOAP: Subjective: significant nausea and diarrhea this am that she relates to her antibiotics. still w back pain Objective: [] Vital Signs Temp Pulse Resp BP Pulse Ox 98.6 F 80 20 137/62 95 10/04/16 07:47 10/04/16 08:00 10/04/16 08:13 10/04/16 06:32 10/04/16 08:00 awake, oriented, conversant deferred physical exam counseling visit Laboratory Results - last 24 hr 10/03/16 10/03/16 10/04/16 07:55 10:26 04:25 WBC 16.3 H RBC 3.39 L Hgb 10.5 L Hct 32 L MCV 95 MCH 31 MCHC 33 RDW 16 H Plt Count 278 MPV 8 Immature Gran % (Auto) 7 Neut % (Auto) 81.4 Lymph % (Auto) 12.0 L [place] % (Auto) 5.0 Eos % (Auto) 0.6 Baso % (Auto) 1.0 Absolute Neuts (auto) 13.3 H Absolute Lymphs (auto) 2.0 Absolute Monos (auto) 0.8 Absolute Eos (auto) 0.1 Absolute Basos (auto) 0.2 Absolute Nucleated RBC 0.12 Neutrophils % 85 H Band Neutrophils % 2 Lymphocytes % 6 L Monocytes % 2 Metamyelocytes % 3 H Myelocytes % 2 H Nucleated RBC % 0.8 Nucleated RBCs/100 WBC 3 H Normal RBC Morphology Normal APTT 53.1 H Sodium 139 Potassium 3.9 Chloride 105 Carbon Dioxide 31 Anion Gap 3 BUN 10 Creatinine 0.82 Est GFR ( Amer) 99.8 Est GFR (Non-Af Amer) 77.6 BUN/Creatinine Ratio 12.2 Glucose 122 H Calcium 8.2 L Phosphorus 2.5 Magnesium 2.3 Vancomycin Trough 10/04/16 04:25 WBC RBC Hgb Hct MCV MCH MCHC RDW Plt Count MPV Immature Gran % (Auto) Neut % (Auto) Lymph % (Auto) [place] % (Auto) Eos % (Auto) Baso % (Auto) Absolute Neuts (auto) Absolute Lymphs (auto) Absolute Monos (auto) Absolute Eos (auto) Absolute Basos (auto) Absolute Nucleated RBC Neutrophils % Band Neutrophils % Lymphocytes % Monocytes % Metamyelocytes % Myelocytes % Nucleated RBC % Nucleated RBCs/100 WBC Normal RBC Morphology APTT Sodium 139 Potassium 3.4 L Chloride 104 Carbon Dioxide 28 Anion Gap 7 BUN 10 Creatinine 0.63 Est GFR ( Amer) 135.3 Est GFR (Non-Af Amer) 105.2 BUN/Creatinine Ratio 15.9 Glucose 109 H Calcium 8.4 L Phosphorus Magnesium Vancomycin Trough 14.8 Acetaminophen/Butalbital/Caffeine (Fioricet Tab*) 1 tab PO Q6H PRN PRN Reason: HEADACHE/PAIN Alprazolam (Xanax Tab*) 0.5 mg PO TID PRN PRN Reason: ANXIETY Aspirin (Ecotrin Ec Tab*) 325 mg PO DAILY [facility] Last Admin: 10/04/16 08:13 Dose: 325 mg Gabapentin (Neurontin Cap(*)) 100 mg PO TID [facility] Last Admin: 10/04/16 08:13 Dose: 100 mg Gabapentin (Neurontin Cap(*)) 300 mg PO BEDTIME [facility] Last Admin: 10/03/16 20:27 Dose: 300 mg Hydromorphone HCl (Dilaudid Tab*) 1 mg PO Q4H PRN PRN Reason: PAIN Last Admin: 10/04/16 08:13 Dose: 1 mg Mirtazapine (Remeron Tab*) 45 mg PO BEDTIME PRN PRN Reason: SLEEP Last Admin: 10/03/16 22:45 Dose: 45 mg Pharmacy Consult (Vancomycin Per Pharmacy*) 1 note FOLLOW UP . PRN PRN Reason: PER PROTOCOL Rivaroxaban (Xarelto (*)) 20 mg PO DAILY [facility] Last Admin: 10/04/16 08:13 Dose: 20 mg Sumatriptan Succinate (Imitrex Tab*) 50 mg PO TID PRN PRN Reason: HEADACHE Zolpidem Tartrate (Ambien Tab*) 5 mg PO BEDTIME PRN PRN Reason: INSOMNIA Last Admin: 10/03/16 21:33 Dose: 5 mg Assessment: 41 yo F w chronic back pain and relatively newly diagnosed metastatic Her 2 positive breast cancer on palliative Docetaxel/herceptin/Perjeta who presented with an overdose of her sedatives. She is firm and clear in the fact that she did not intentionally overdose but rather forgot that she took her medications already and took them again. Her aunt, who has been quite involved in her care , is concerned that it might be more complicated then that. We spent a significant amount of time discussing her social situation and her mental health. She previously sought care at [facility], however has not been there in some time. She deferred having me reach out to her provider, but did agree after some talk to speak with a psychiatrist here. Her aunt expresses concern over the emotional (but not physical) well being of her children (12 and 15) who she states feel forced to be the adults in the situation and are doing much of the home care. I will reach out to social work to see what additional services may be available. In terms of her pain control and sleeping medications, I am not the prescriber of these, but I will reach out to Dr. Livingston to let him know of this hospitalization and get his thoughts on discharge regimen. in terms of her antibiotics, I do not think she was septic on admission (though completely agree with the coverage at presentation) and so will stop her zosyn and vanco. She has diarrhea now with is likely antibiotic induced but I will check c diff. in terms of her positive troponin, I suspect that she essentially had a NSTEMI from the stress of her hypotension and hypoxia. Her EF is intact and so it is reasonable to continue her herceptin and perjeta In terms of her cancer, we will resume palliative chemotherapy at a 20% dose reduction of her taxotere on Saturday as planned with imaging after this cycle.
[2016-10-04] MEDS: ALPRAZolam TAB* 0.5 MG PO PRN ×3 (09:04→21:51)
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
[2016-10-04] MEDS: Gabapentin CAP(*) 300 MG PO SCH (20:28)
[2016-10-04] MEDS: Zolpidem TAB* 5 MG PO PRN (21:51)
[2016-10-05] MEDS: HYDROmorphone TAB* 2 MG PO PRN ×4 (00:34→12:31)
[2016-10-05] MEDS: ALPRAZolam TAB* 0.5 MG PO PRN (05:19)
[2016-10-05 06:13] LABS: Add Diff/Slide Review? Slide Review Added; Comments Flag Yes; Hematocrit 30 % (35-47); Hemoglobin 9.5 g/dl (12.0-16.0); Mean Corpuscular HGB Conc 31 g/dl (31-36); Mean Corpuscular Hemoglobin 31 pg (27-31); Mean Corpuscular Volume 99 fL (80-97); Mean Platelet Volume 8 um3 (7.4-10.4); Red Blood Count 3.06 10^6/ul (4.0-5.4); Red Cell Distribution Width 17 % (10.5-15); White Blood Count 18.1 10^3/ul (3.5-10.8)
[2016-10-05] MEDS: Gabapentin CAP(*) 100 MG PO SCH ×2 (08:23→13:45)
[2016-10-05] MEDS: Rivaroxaban TAB(*) 20 MG TAB PO SCH (08:23)
[2016-10-05] MEDS: Aspirin EC TAB* 325 MG PO SCH (08:23)
[2016-10-05 12:03] VITALS: BP 139/71
[2016-10-05] MEDS ORDERED: Potassium Chlor TAB* 20 MEQ TAB.ER PO SCH (13:00)
--- NOTE | 2016-10-06 07:28 | DS ---
DISCHARGE SUMMARY: DATE OF ADMISSION: 10/02/16 DATE OF DISCHARGE: 10/05/16 DISCHARGE DIAGNOSES: 1. Opioid overdose: Accidental duplication of sleeping pills per the patient, accidental due to co nfusion, psychiatric workup benign for acute suicidal ideation. 2. Metastatic breast cancer: Currently on therapy with plan for treatment early next week. 3. Chronic pain: Managed by Dr. Livignston; however, per discussion with Dr. Cordova, will transition to only short acting with discharge and follow up with Dr. Livingston early next week. 4. Depression and posttraumatic stress disorder: Plan to follow up with mental health, social work to follow as well. DISCHARGE MEDICATIONS: 1. Fioricet 1 tab p.o. q.6 hours p.r.n. headache. 2. Alprazolam 0.5 mg p.o. t.i.d. p.r.n. anxiety. 3. Aspirin 325 mg p.o. daily. 4. Gabapentin 100 mg p.o. t.i.d. 5. Gabapentin 300 mg p.o. at bedtime. 6. Hydromorphone 1 mg p.o. q.4 hours p.r.n. pain. 7. Mirtazapine 45 mg p.o. at bedtime p.r.n. sleep. 8. Potassium chloride 20 mEq p.o. daily. 9. Xarelto 20 mg p.o. daily. 10. Imitrex 50 mg p.o. t.i.d. p.r.n. headache. 11. Ambien 5 mg p.o. at bedtime p.r.n. insomnia. HOSPITAL COURSE: Please see admission note for full H and P; however, briefly, Ms. Guevara is well known to our service due to her unfortunate diagnosis of metastatic breast cancer, currently receivi ng chemotherapy. Her course is complicated by her chronic back pain with Pain Care Management. She presented to the ER on 10/02/16 after being found by her family obtunded. In the ER, she was hypot ensive, tachycardic, and had elevations in her white count. She received Narcan with some improveme nt. She was started on IV antibiotics with concern for infection. At the time of admission, plan w as made to hold opioids and slowly reintroduced. She was pancultured at that time as well. On admi ssion, she had elevated troponins; however, workup was negative and it was felt that this is demand related due to hypotension and hypoxia secondary to overdose. On 10/04/16, Dr. Cordova spoke with the patient at length regarding her care including concerns of opioid use and depression. Ms. Aydin uriostegui has been adamant that her overdose was in accident related to confusion about if she took her med ications or not. She was seen in consultation by Psychiatry who deemed she was not acutely suicidal or of harm to herself. It was felt she would be reasonably managed as an outpatient. During admis , Ms. Guevara has had a significant decrease in the use of her opioids as we did not reintroduce any long-acting medications. Dr. Cordova did speak with Dr. Livingston. Today, Ms. Guevara is feeling reasonably well and very much would like to go home. Extensive discussion was made with Ms. Calderon s regarding her medications and concerns of recurrent accidental overdoses as well as concern for in tentional overdoses. Ms. Guevara once again assures me she has no suicidal ideation. Her family is with her and very supportive. Plan is for her aunt, Mau, to help with medications over the nd and for [facility] to come in to the home early next week for med assessment as well as further support. Ms. Guevara will follow up with her mental healthcare providers next week and will continue to be followed by social work. She will see Dr. Livingston early Saturday morning on 10/08/16 and seen in the [facility] on 10[facility]/16 with plan for chemotherapy and repeat labs. Plan of care was reviewed with Ms. Dubois ins who states understanding. She is frustrated by her need for further assistance with medications ; however, understands this decision is being made for her safety. Her sons were in the room with h er and had opportunity asking questions. TIME SPENT: Greater than 40 minutes was spent with greater than 50% [id number] counseling. JEFFREY GUY, BENITO [id number]/[facility] #: [id number]
--- NOTE | 2016-10-06 07:28 | DS ---
DISCHARGE SUMMARY: ADDENDUM: CC: Jane Hernandez [id number]/[facility] #: [id number] MTDD
== END 2016-10-05 15:00 | disposition home or self-care (01) | DRG 812 ==
LOC: ED 11:49 → ICU 13:55 → MED 10-04 08:26
PROVIDERS: ADMIT Internal Medicine Critical Care Medicine; ATTEND Internal Medicine Hematology & Oncology
DX: T40.601A Poisoning by unspecified narcotics, accidental (unintentional), initial encounter (principal); G93.40 Encephalopathy, unspecified; N17.9 Acute kidney failure, unspecified; J18.9 Pneumonia, unspecified organism; C78.7 Secondary malignant neoplasm of liver and intrahepatic bile duct; C79.51 Secondary malignant neoplasm of bone; E66.01 Morbid (severe) obesity due to excess calories; F32.9 Major depressive disorder, single episode, unspecified; F41.9 Anxiety disorder, unspecified; G47.00 Insomnia, unspecified; D64.9 Anemia, unspecified; C50.919 Malignant neoplasm of unspecified site of unspecified female breast; F41.0 Panic disorder [episodic paroxysmal anxiety]; F43.10 Post-traumatic stress disorder, unspecified; R79.89 Other specified abnormal findings of blood chemistry; F17.210 Nicotine dependence, cigarettes, uncomplicated; G89.29 Other chronic pain; Z91.410 Personal history of adult physical and sexual abuse; Z86.718 Personal history of other venous thrombosis and embolism; Z79.01 Long term (current) use of anticoagulants
CPT/HCPCS: 36415; 71010; 71275; 80048; 80053; 80202; 80307; 80320; 80329; 81003; 81015; 82140; 83605; 83735; 84100; 84484; 84520; 85025; 85610; 85730; 87040; 87493; 87641; 93005; 93306; 93970; 99233; 99239; A9270-GY; G0480; J1642; J1644; J2405; J2543; J3370; Q9967

== ENCOUNTER 2017-02-21 17:10 | Emergency (ER) | payer OTHER ==
[2017-02-21] MEDS ORDERED: NS 0.9% 1000 ML* 1,000 ML IV ONE (18:52)
[2017-02-21] MEDS ORDERED: Albuterol/Ipratropium NEB.SOL* Albuterol 2.5 MG/Ipratropium 0.5 MG 3 ML INH ONE ×2 (19:17→20:48)
--- NOTE | 2017-02-21 19:31 | RAD ---
INDICATION: Chest pain. Breast carcinoma COMPARISON: Chest x-ray September 22, 2016 TECHNIQUE: An AP portable view obtained at 1905 hours is submitted. FINDINGS: Bones/Soft Tissues: There are no acute bony findings. Cardiomediastinal: The cardiomediastinal silhouette is normal. There are no current basilar congestive findings. Lungs: There are no infiltrates. Pleura: There are no pleural effusions. Other: None IMPRESSION: NO ACTIVE DISEASE.
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
[2017-02-21] MEDS ORDERED: HYDROmorphone* 1 MG/ML 1 ML SYR IV SLOW PU ONE (19:48)
[2017-02-21 19:56] LABS: Hematocrit 40 % (35-47); Hemoglobin 12.8 g/dl (12.0-16.0); Mean Corpuscular HGB Conc 32 g/dl (31-36); Mean Corpuscular Hemoglobin 30 pg (27-31); Mean Corpuscular Volume 92 fL (80-97); Mean Platelet Volume 7 um3 (7.4-10.4); Red Blood Count 4.33 10^6/ul (4.0-5.4); Red Cell Distribution Width 21 % (10.5-15); White Blood Count 9.1 10^3/ul (3.5-10.8)
[2017-02-21 20:14] LABS: Albumin 3.6 g/dL (3.2-5.2); BUN/Creatinine Ratio 9.8 (8-20); Calcium 8.4 mg/dL (8.6-10.3); EGFR African American 140.4 (>60); EGFR Non-African American 109.2 (>60); Globulin 2.8 g/dL (2-4); Magnesium 2.2 mg/dL (1.9-2.7); Potassium 3.7 mmol/L (3.5-5.0); Total Bilirubin 0.2 mg/dL (0.2-1.0); Total Protein 6.4 g/dL (6.4-8.9)
[2017-02-21 20:16] LABS: Troponin I 0.01 ng/mL (<0.04)
[2017-02-21 22:13] VITALS: BP 122/65
== END 2017-02-21 22:14 | disposition home or self-care (01) ==
LOC: ED 17:10
DX: R07.9 Chest pain, unspecified (principal); R05 Cough; R06.2 Wheezing; F17.210 Nicotine dependence, cigarettes, uncomplicated; Z85.3 Personal history of malignant neoplasm of breast
CPT/HCPCS: 36415; 71010; 80053; 82550; 82553; 83605; 83735; 83880; 84484; 84702; 85025; 85379; 85610; 85730; 87040; 94640; 99282; A9270-GY; J1170

== ENCOUNTER 2017-03-02 17:31 | Inpatient (IN) | payer OTHER ==
[2017-03-02] MEDS ORDERED: Levalbuterol 0.63MG/3ML NEB* UNIT OF USE INH ONE (18:09)
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
[2017-03-02] MEDS ORDERED: NS 0.9% IV ONE (18:16)
[2017-03-02] MEDS ORDERED: Ondansetron INJ* 2 MG/ML VIAL IV ONE ×2 (18:16→19:56)
[2017-03-02 18:58] LABS: FIO2 4
[2017-03-02 19:09] LABS: Hematocrit 38 % (35-47); Hemoglobin 12.3 g/dl (12.0-16.0); Mean Corpuscular HGB Conc 32 g/dl (31-36); Mean Corpuscular Hemoglobin 29 pg (27-31); Mean Corpuscular Volume 90 fL (80-97); Mean Platelet Volume 7 um3 (7.4-10.4); Red Blood Count 4.21 10^6/ul (4.0-5.4); Red Cell Distribution Width 22 % (10.5-15); White Blood Count 20.7 10^3/ul (3.5-10.8)
[2017-03-02 19:11] LABS: PCO2 Arterial 64 mmHg (35-45)
[2017-03-02 19:11] LABS: Add Diff/Slide Review? Slide Review Added; Comments Flag Yes
[2017-03-02 19:21] LABS: Albumin 3.7 g/dL (3.2-5.2); BUN/Creatinine Ratio 20.9 (8-20); Calcium 8.6 mg/dL (8.6-10.3); Globulin 3.1 g/dL (2-4); Potassium 4.8 mmol/L (3.5-5.0); Total Bilirubin 0.4 mg/dL (0.2-1.0); Total Protein 6.8 g/dL (6.4-8.9)
[2017-03-02 19:23] LABS: Troponin I 0.02 ng/mL (<0.04)
[2017-03-02] MEDS ORDERED: Iohexol 300* (CONTRAST) 10 ML SDV IV ONE (19:27)
[2017-03-02 19:35] LABS: Polychromasia 1+; Stomatocytes 2+
[2017-03-02] MEDS ORDERED: NS 0.9% 1000 ML* 1,000 ML IV ONE (19:35)
[2017-03-02] MEDS ORDERED: Iohexol 350* (CONTRAST) 500 ML MDV IV ONE (19:40)
[2017-03-02] MEDS ORDERED: Vancomycin(*) 1,500 MG in NS 0.9% 250 ML* 250 ML IVPB ONE (19:50)
[2017-03-02] MEDS ORDERED: HYDROmorphone* 1 MG/ML 1 ML SYR IV SLOW PU ONE (19:57)
--- NOTE | 2017-03-02 19:57 | RAD ---
Indication: Hypoxia. 2 views of the chest including dual energy PA views demonstrates no mediastinal shift. Central line is in place. No alveolar consolidation is noted. No pneumothorax is noted. Compared to previous exam dated February 21, 2017 no significant change is noted IMPRESSION: Slight interstitial prominence no definite alveolar consolidation is noted.
--- NOTE | 2017-03-02 20:22 | RAD ---
Indication: Hypoxia, right-sided headaches, breast cancer with metastases. CT of the brain was performed without IV contrast. Ventricular structures are midline. No midline shift is noted. The extra-axial spaces are unremarkable. There is no evidence of intracranial mass or hemorrhage. No other high or low density lesions are identified. Mastoid air cells and paranasal sinuses are unremarkable. IMPRESSION: No intracranial mass or hemorrhage is noted.
--- NOTE | 2017-03-02 20:24 | RAD ---
Indication: Hypoxia, tachycardia. Contrast: Administered 84.2 ml of Contrast -- mg/ml CTA of the chest was performed after IV contrast administration. Coronal and sagittal reconstructed images were obtained. The pulmonary arterial tree is well opacified. There are no filling defects present to suggest pulmonary embolus. There is no mediastinal or hilar adenopathy. There is right hilar lymph nodes measuring up to 7 mm. The heart demonstrates no pericardial effusion. The trachea and major bronchi appear patent. Bibasilar atelectasis is noted. No alveolar consolidation is noted. The visualized abdominal organs demonstrates fatty changes of liver. The bony structures demonstrates no obvious sclerotic or lytic lesions. IMPRESSION: No evidence of pulmonary embolus is noted. There appears to be vascular congestion. No alveolar consolidation is noted.
[2017-03-02] MEDS ORDERED: NS 0.9% 250 ML* 250 ML ONE (21:10)
[2017-03-02] MEDS ORDERED: Acetaminophen TAB* 325 MG PO PRN (21:37)
[2017-03-02] MEDS ORDERED: Oxymorphone ER (NF) 5 MG TAB PO PRN (21:45)
[2017-03-02] MEDS ORDERED: NS 0.9% 1000 ML* 1,000 ML IV SCH (21:45)
[2017-03-02] MEDS ORDERED: Ketoconazole 2 % CREAM (NF) 30 GM TUBE TOPICAL PRN (21:45)
[2017-03-02] MEDS ORDERED: oxyCODONE TAB* 5 MG TAB PO PRN (21:45)
[2017-03-02] MEDS ORDERED: Mirtazapine TAB* 15 MG PO PRN (21:45)
[2017-03-02] MEDS ORDERED: Gabapentin CAP(*) 100 MG PO PRN (21:45)
[2017-03-02] MEDS ORDERED: fentaNYL PATCHs 100 MCG/HR TRANSDERM PRN (22:00)
[2017-03-02] MEDS: HYDROmorphone* 1 MG/ML 1 ML SYR IV SLOW PU PRN (23:13)
[2017-03-02 23:16] LABS: Urine Bilirubin Negative (Negative); Urine Glucose Negative (Negative); Urine Nitrite Negative (Negative)
--- NOTE | 2017-03-03 02:55 | HP ---
CC: Dr. Richardson; Dr. Jill Cordova * HISTORY AND PHYSICAL: DATE OF ADMISSION: 03/02/17 CHIEF COMPLAINT: Headache. HISTORY OF PRESENT ILLNESS: The patient is a 41-year-old woman with a past medical history significant for metastatic breast cancer, who presents to the [facility] with a chief complaint of bad migraine that started about 3 days ago. She said it was left sided and took sumatriptan as usual, but it did not seem to make any difference. She has had nausea, vomiting associated with it and it is throbbing. Apparently, while in the hospital, she was found to be hypoxic with a pulse ox in the 80s. CAT scan of her chest was done to see if she possibly had a pulmonary embolism, but it was fairly unremarkable. She _ ____ supplemental oxygen, but is breathing fine without any problems. In fact, she denies any shortness of breath, chest pain, or increased wheezing. She does want us to know that she has not had her menstrual cycle since this past July and she had her first one yesterday. She is supposed to get chemo on the and she gets Herceptin and Taxol. 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 PAST SURGICAL HISTORY: Significant for appendectomy, three back surgeries, and two C-sections. CURRENT MEDICATIONS: Are as follows: 1. Trazodone 400 mg at bedtime as needed. 2. Oxycodone 5 to 10 mg every 4 to 6 hours as needed. 3. Zolpidem 10 mg at bedtime as needed. 4. Imitrex 50 mg 3 times a day as needed. 5. Xarelto 20 mg in the evening. 6. Opana 30 mg every 12 hours as needed. 7. Zofran 4 mg every 4 hours as needed. 8. Remeron 50 mg at bedtime as needed. 9. Nizoral cream 2%, applied topically twice a day as needed. 10. Gabapentin 200 mg every 8 hours as needed. 11. Fentanyl patch 100 mcg every 48 hours. 12. Lexapro 40 mg daily. 13. Flexeril 10 mg daily. 14. Vitamin D3 2000 units twice daily. 15. Brexpiprazole 2 mg in the evening. 16. Alprazolam 1 to 2 mg four times a day as needed. ALLERGIES: She has an allergy/adverse reaction to VENLAFAXINE, COMPAZINE, PHENERGAN, TEGADERM, MILK PROTEIN EXTRACT, and MILK RELATED COMPOUND. SOCIAL HISTORY: The patient lives at home with her children, 12 and 15 years old. Healthcare proxy is her father, Rafael Ashby, number [phone], work is [phone], extension [phone]. Still smokes tobacco about a quarter pack a day. No alcohol or recreational drug use. She is on disability, . REVIEW OF SYSTEMS: A 14-point review of systems was completed with the patient. All pertinent positives and negatives are in the history of present illness, otherwise it is negative. PHYSICAL EXAMINATION GENERAL: A pleasant woman lying in bed, in no acute distress. VITAL SIGNS: Blood pressure 114/53, pulse oxygenation 92%, respiratory rate 14 breaths per minute, heart rate 102 beats per minute, temperature 97.8 degrees. HEENT: Normocephalic and atraumatic. Pupils are equal, round, and reactive to light. Moist mucous membranes. NECK: Supple. No JVD, bruits, palpable thyroid, or lymphadenopathy. CHEST: Clear to auscultation and percussion bilaterally. CARDIOVASCULAR: S1, S2 appreciated. ABDOMEN: Positive bowel sounds in all 4 quadrants. Soft, nontender, nondistended. EXTREMITIES: No cyanosis, clubbing, or edema. +2 pulses bilaterally. NEURO: Alert and oriented x3. Moves all extremities. SKIN: No rashes or abnormalities. DIAGNOSTIC STUDIES/LAB DATA: White count 20.7, hemoglobin 12.3, hematocrit 38 , and platelets , absolute neutrophils are 18. Iron 1.18. Sodium 132, potassium 4.8, chloride 99, CO2 29, BUN 14, creatinine 0.67, glucose is 120. Blood gas: pH 7.23, PCO2 64, PO2 57, bicarb 29.8, O2 sat 91.8%. CTA of the chest: No evidence of pulmonary embolism is noted. There appears to be vascular congestion. No alveolar consolidation is noted. EKG shows sinus tachycardia, 101 beats per minute, normal axis, nonspecific ST- T wave changes. Brain CT was interpreted as no intracranial mass or hemorrhage noted. ASSESSMENT AND PLAN: 1. Migraine. This may be what the issue is. She does not seem to have any metastases at this point. We will place her on Dilaudid one every 4 hours. We will be cautious with narcotics as she apparently had an accidental overdose recently. Zofran p.r.n. for nausea. If it does not resolve, consider Neurology consult. 2. Hypoxia. Already improved. She has no symptoms. It may have been chronic obstructive pulmonary disease exacerbation or even positional. She is quite overweight. We will monitor. Continue supplemental oxygen for now. 3. Chronic pain. Stable. Continue current regimen. 4. Ovarian vein thrombosis. Stable. Continue Xarelto. 5. Depression. Stable. Continue medications including Lexapro. 6. DVT prophylaxis. She is on Xarelto. 7. FEN. Regular diet. 8. The patient is a full code. TIME SPENT: Over 80 minutes was spent on this H and P, more than 45 minutes of which was spent in direct [id number] contact with the patient in evaluation, physical exam, counseling, and coordination of care. [id number]/[facility] #: [id number] [facility] CENTERJitendra
[2017-03-03] MEDS: HYDROmorphone* 1 MG/ML 1 ML SYR IV SLOW PU PRN ×2 (03:23→09:18)
[2017-03-03 06:38] LABS: Hematocrit 33 % (35-47); Hemoglobin 10.6 g/dl (12.0-16.0); Mean Corpuscular HGB Conc 32 g/dl (31-36); Mean Corpuscular Hemoglobin 30 pg (27-31); Mean Corpuscular Volume 91 fL (80-97); Mean Platelet Volume 7 um3 (7.4-10.4); Red Blood Count 3.59 10^6/ul (4.0-5.4); Red Cell Distribution Width 21 % (10.5-15); White Blood Count 14.6 10^3/ul (3.5-10.8)
[2017-03-03 06:40] LABS: Comments Flag Yes
[2017-03-03] MEDS: ESCITALOPRAM 10 MG PO SCH (09:19)
[2017-03-03] MEDS: Cyclobenzaprine TAB* 10 MG PO SCH (09:19)
[2017-03-03] MEDS: SUMAtriptan TAB* 50 MG PO PRN ×2 (09:19→14:28)
[2017-03-03] MEDS ORDERED: Ketorolac INJ* 60 MG/2 ML VIAL IV PUSH ONE (10:43)
[2017-03-03] MEDS ORDERED: methylPREDNISolone SOD 40 MG* 1 ML VIAL IV ONE (10:45)
--- NOTE | 2017-03-03 10:53 | PN ---
Subjective Date of Service: 03/03/17 Interval History: This is a 41 yo female with BCA under active treatment with Herceptin and Taxol who presented with a c/o severe VÁZQUEZ. She has a h/o migraine HAs, but states that she has had few HAs in the last few months, but she has had several severe ones in the last 3 weeks. She denies associated fever, arthralgia or rash. Some low back and neck pain. She used her imitrex at home without relief. She is photophobic with mild nausea. She was treated with Dilaudid overnight. Patient notes little improvement in her VÁZQUEZ since admission. Denies other new symptoms. Objective Active Medications: Acetaminophen (Tylenol Tab*) 650 mg PO Q4H PRN PRN Reason: FEVER/PAIN Alprazolam (Xanax Tab*) 1 mg PO QID PRN PRN Reason: ANXIETY Brexpiprazole (Rexulti 0.5 Mg Tab (Nf)) 2 mg PO QPM [facility] Cyclobenzaprine HCl (Flexeril Tab*) 10 mg PO DAILY [facility] Last Admin: 03/03/17 09:19 Dose: 10 mg Escitalopram Oxalate (Lexapro (Nf)) 40 mg PO DAILY [facility] Last Admin: 03/03/17 09:19 Dose: 40 mg Fentanyl (Duragesic Patch 100 Mcg/Hr *) 100 mcg TRANSDERM Q48HR PRN PRN Reason: PAIN - UNRELIEVED Last Admin: 03/03/17 07:40 Dose: 100 mcg Gabapentin (Neurontin Cap(*)) 200 mg PO Q8HR [facility] Sodium Chloride (Ns 0.9% 1000 Ml*) 1,000 mls @ 100 mls/hr IV PER RATE [facility] Last Admin: 03/03/17 00:00 Dose: 100 mls/hr Ketoconazole (Nizoral 2% Cream (Nf)) 1 applic TOPICAL BID PRN; Protocol PRN Reason: ITCHING Ketorolac Tromethamine (Toradol Inj*) 30 mg IV PUSH ONCE ONE Stop: 03/03/17 10:44 Methylprednisolone Sodium Succinate (Solu-Medrol 40 Mg) 40 mg IV ONCE ONE Stop: 03/03/17 10:46 Mirtazapine (Remeron Tab*) 15 mg PO BEDTIME PRN PRN Reason: SLEEP Morphine Sulfate (Morphine Inj (Syringe)*) 4 mg IV Q2H PRN PRN Reason: PAIN Ondansetron HCl (Zofran Inj*) 4 mg IV Q4H PRN PRN Reason: NAUSEA Oxycodone HCl (Roxycodone Tab*) 10 mg PO TID [facility] Oxymorphone HCl (Opana Er (Nf)) 30 mg PO Q12H [facility] Rivaroxaban (Xarelto (*)) 20 mg PO QPM [facility] Sumatriptan Succinate (Imitrex Tab*) 50 mg PO TID PRN PRN Reason: HEADACHE Last Admin: 03/03/17 09:19 Dose: 50 mg Trazodone HCl (Desyrel Tab*) 400 mg PO BEDTIME PRN PRN Reason: SLEEP Zolpidem Tartrate (Ambien Tab*) 10 mg PO BEDTIME PRN PRN Reason: SLEEP Vital Signs: Temp Pulse Resp BP Pulse Ox 98.2 F 81 20 93/54 96 03/03/17 07:48 03/03/17 07:48 03/03/17 09:19 03/03/17 07:48 03/03/17 07:48 Appearance: Very uncomfortable appearing young female who keeps her eyes closed the majority of the exam Respiratory: Symmetrical Chest Expansion and Respiratory Effort, Clear to Auscultation Cardiovascular: NL Sounds; No Murmurs; No JVD, RRR Extremities: - - diffuse non-pitting edema Skin: No Rash or Ulcers Neurological: Alert and Oriented x 3, - - no nucal rigidity, automatic thread winder intact, FROM of all extremities Result Diagrams: 03/03/17 05:56 03/02/17 18:53 Diagnostic Imaging: CT brain - NAD CTA chest - no PE, mild pulmonary congestion Assess/Plan/Problems-Billing Assessment: This is a 41 yo female with metastatic BCA, h/o ovarian vein occlusion, chronic pain, migraine HAs, depression and anxiety who presented with an intractable VÁZQUEZ. - Patient Problems (1) Intractable headache Comment: Likely a migraine, no response to triptans, dilaudid ineffective Will trial toradol and solumedrol Cont her usual home opiates If no response to above, will request neurology consultation (2) Metastatic breast cancer Comment: Followed by Dr Cordova Current treatment with Herceptin and Taxol q 3 weeks, patient reports no recent change to her treatment regimen (3) Chronic pain Comment: Cont home opiate regimen (4) Thrombosis of ovarian vein Comment: Cont Xarelto (5) Full code status (6) DVT prophylaxis Comment: Xarelto Status and Disposition: Inpatient. Hopeful for dc tomorrow depending on treatment response
[2017-03-03] MEDS ORDERED: Ketorolac INJ* 30 MG/ML 1 ML VIAL IV PUSH ONE (11:00)
[2017-03-03] MEDS: Oxymorphone ER (NF) 5 MG TAB PO SCH (11:27)
[2017-03-03] MEDS: Gabapentin CAP(*) 100 MG PO SCH ×2 (11:35→20:49)
[2017-03-03] MEDS: oxyCODONE TAB* 5 MG TAB PO SCH ×2 (13:37→20:48)
[2017-03-03] MEDS: fentaNYL PATCHs 100 MCG/HR TRANSDERM PRN (14:21)
[2017-03-03] MEDS: Ondansetron INJ* 2 MG/ML VIAL IV PRN ×2 (14:28→20:55)
[2017-03-03] MEDS: Nystatin SUSPENSION* 100000 UNITS/ML 5 ML UDC PO SCH ×2 (17:30→20:50)
[2017-03-03] MEDS: Rivaroxaban TAB(*) 20 MG TAB PO SCH (17:30)
[2017-03-03] MEDS: CMCS:Brexpiprazole (NF) 0.5 MG TAB PO SCH (17:31)
--- NOTE | 2017-03-03 17:50 | PN ---
Hospitalist Progress Note Patient reported good response to toradol and solumedrol but VÁZQUEZ became worse in the afternoon. Will repeat toradol and imitrex, check BMP tomorrow. Thrush also noted on exam, nystatin ordered.
[2017-03-03] MEDS: Morphine INJ* 4 MG/ML 1 ML SYRINGE IV PRN ×2 (18:15→23:35)
[2017-03-03] MEDS: fentaNYL Patch Check Q Shift 1 NOTE SCH (18:30)
[2017-03-03] MEDS: Ketorolac INJ* 30 MG/ML 1 ML VIAL IV PUSH PRN (18:34)
[2017-03-03] MEDS: NS 0.9% 1000 ML* 1,000 ML IV SCH (20:17)
[2017-03-04] MEDS: Oxymorphone ER (NF) 5 MG TAB PO SCH ×3 (01:17→22:43)
[2017-03-04] MEDS: Morphine INJ* 4 MG/ML 1 ML SYRINGE IV PRN ×8 (01:59→20:27)
[2017-03-04] MEDS: Ondansetron INJ* 2 MG/ML VIAL IV PRN ×5 (01:59→22:55)
[2017-03-04] MEDS: ALPRAZolam TAB* 0.5 MG PO PRN (04:30)
[2017-03-04] MEDS: Gabapentin CAP(*) 100 MG PO SCH ×3 (05:54→22:42)
[2017-03-04 06:34] LABS: BUN/Creatinine Ratio 22.4 (8-20); EGFR African American 148.8 (>60); EGFR Non-African American 115.7 (>60)
[2017-03-04] MEDS: Nystatin SUSPENSION* 100000 UNITS/ML 5 ML UDC PO SCH ×4 (08:34→20:04)
[2017-03-04] MEDS: ESCITALOPRAM 10 MG PO SCH (08:37)
[2017-03-04] MEDS: oxyCODONE TAB* 5 MG TAB PO SCH ×3 (08:39→20:04)
[2017-03-04] MEDS: Cyclobenzaprine TAB* 10 MG PO SCH (08:39)
[2017-03-04] MEDS: Ketorolac INJ* 30 MG/ML 1 ML VIAL IV PUSH PRN ×2 (09:18→17:24)
[2017-03-04] MEDS ORDERED: Gadoteridol* (CONTRAST) 279.3 MG/ML 10 ML IV ONE (14:07)
--- NOTE | 2017-03-04 15:03 | RAD ---
HISTORY: Intractable headache, history of breast cancer with metastatic disease COMPARISONS: August 09, 2016 TECHNIQUE: The following sequences were obtained of the head: Sagittal T1-weighted images, axial T2-weighted images, axial FLAIR images, axial susceptibility weighted images, axial T1-weighted images. Additionally, axial diffusion-weighted images were obtained with calculated apparent diffusion coefficients. Additionally, sagittal, coronal, and axial T1-weighted images were obtained after contrast enhancement with a gadolinium-based intravenous contrast agent. FINDINGS: HEMORRHAGE/INFARCT: There is no hemorrhage or acute infarct. MASSES/SHIFT: There is no mass or shift. EXTRA-AXIAL SPACES/MENINGES: There are no extra-axial fluid collections. SULCI AND VENTRICLES: The sulci and ventricles are normal in size and position for the patient's stated age. CEREBRUM: There are no focal parenchymal abnormalities. BRAINSTEM: There are no focal parenchymal abnormalities. CEREBELLUM: There are no focal parenchymal abnormalities. The cerebellar tonsils are normal in size and position. SELLA: The sella is normal. PINEAL: The pineal region is clear. CP ANGLE/TEMPORAL BONES: The labyrinthine structures are grossly normal. VESSELS: Normal flow-voids are noted within the visualized vertebral vasculature. DIFFUSION ABNORMALITIES: There are no diffusion abnormalities. PARANASAL SINUSES/MASTOIDS: The paranasal sinuses are clear. ORBITS: The orbits are unremarkable. BONES AND SOFT TISSUE: No bone or soft tissue abnormalities are noted. OTHER: There is no abnormal enhancement. IMPRESSION: NO ABNORMAL ENHANCEMENT, VASOGENIC EDEMA, OR SPACE-OCCUPYING LESION TO SUGGEST METASTATIC DISEASE TO THE BRAIN.
[2017-03-04] MEDS: NS 0.9% 1000 ML* 1,000 ML IV SCH (16:30)
[2017-03-04] MEDS: Rivaroxaban TAB(*) 20 MG TAB PO SCH (17:24)
[2017-03-04] MEDS: SUMAtriptan TAB* 50 MG PO PRN (17:25)
[2017-03-04] MEDS: CMCS:Brexpiprazole (NF) 0.5 MG TAB PO SCH (18:02)
[2017-03-04] MEDS: Zolpidem TAB* 10 MG PO PRN (22:54)
[2017-03-05] MEDS: Morphine INJ* 4 MG/ML 1 ML SYRINGE IV PRN ×9 (00:26→22:08)
[2017-03-05] MEDS: ALPRAZolam TAB* 0.5 MG PO PRN ×2 (01:42→22:21)
[2017-03-05] MEDS: NS 0.9% 1000 ML* 1,000 ML IV SCH ×2 (02:41→13:08)
[2017-03-05] MEDS: Gabapentin CAP(*) 100 MG PO SCH ×3 (06:20→22:06)
[2017-03-05] MEDS: ESCITALOPRAM 10 MG PO SCH (09:03)
[2017-03-05] MEDS: Nystatin SUSPENSION* 100000 UNITS/ML 5 ML UDC PO SCH ×4 (09:03→22:07)
[2017-03-05] MEDS: Ondansetron INJ* 2 MG/ML VIAL IV PRN ×3 (09:03→22:21)
[2017-03-05] MEDS: Cyclobenzaprine TAB* 10 MG PO SCH (09:04)
[2017-03-05] MEDS: oxyCODONE TAB* 5 MG TAB PO SCH ×3 (09:05→22:06)
--- NOTE | 2017-03-05 11:04 | PN ---
Progress Note - Progress Note Date of Service: 03/05/17 SOAP: Subjective: []No better. Thing that helps the most is zofran and morphine helps some. Really not getting up because of c/o VÁZQUEZ, dizziness, and feeling poorly. No emesis. No other symptoms. Per her record VÁZQUEZ started day after got 2 breathing tx.'s on 02/21 when she was having respiratory illness. Interestingly she also just started her period after almost 8 months without (secondary to tx.). Medications: Acetaminophen (Tylenol Tab*) 650 mg PO Q4H PRN PRN Reason: FEVER/PAIN Last Admin: 03/04/17 04:31 Dose: 650 mg Alprazolam (Xanax Tab*) 1 mg PO QID PRN PRN Reason: ANXIETY Last Admin: 03/05/17 01:42 Dose: 1 mg Brexpiprazole (Rexulti 0.5 Mg Tab (Nf)) 2 mg PO QPM [facility] Last Admin: 03/04/17 18:02 Dose: Not Given Cyclobenzaprine HCl (Flexeril Tab*) 10 mg PO DAILY [facility] Last Admin: 03/05/17 09:04 Dose: 10 mg Escitalopram Oxalate (Lexapro (Nf)) 40 mg PO DAILY [facility] Last Admin: 03/05/17 09:03 Dose: 40 mg Fentanyl (Duragesic Patch 100 Mcg/Hr *) 100 mcg TRANSDERM Q48H PRN PRN Reason: PAIN - UNRELIEVED Last Admin: 03/03/17 14:21 Dose: 100 mcg Gabapentin (Neurontin Cap(*)) 200 mg PO Q8HR [facility] Last Admin: 03/05/17 06:20 Dose: 200 mg Sodium Chloride (Ns 0.9% 1000 Ml*) 1,000 mls @ 50 mls/hr IV PER RATE [facility] Ketoconazole (Nizoral 2% Cream (Nf)) 1 applic TOPICAL BID PRN; Protocol PRN Reason: ITCHING Ketorolac Tromethamine (Toradol Inj*) 30 mg IV PUSH Q6H PRN PRN Reason: PAIN Last Admin: 03/04/17 17:24 Dose: 30 mg Mirtazapine (Remeron Tab*) 15 mg PO BEDTIME PRN PRN Reason: SLEEP Morphine Sulfate (Morphine Inj (Syringe)*) 4 mg IV Q2H PRN PRN Reason: PAIN Last Admin: 03/05/17 09:05 Dose: 4 mg Nystatin (Nystatin Suspension*) 500,000 units PO QID [facility] Stop: 03/10/17 16:59 Last Admin: 03/05/17 09:03 Dose: 500,000 units Ondansetron HCl (Zofran Inj*) 4 mg IV Q4H PRN PRN Reason: NAUSEA Last Admin: 03/05/17 09:03 Dose: 4 mg Oxycodone HCl (Roxycodone Tab*) 10 mg PO TID [facility] Last Admin: 03/05/17 09:05 Dose: 10 mg Oxymorphone HCl (Opana Er (Nf)) 30 mg PO Q12H [facility] Last Admin: 03/04/17 22:43 Dose: 30 mg Pharmacy Profile Note (Fentanyl Patch Check Q Shift) 1 note N/A Q48H [facility] Last Admin: 03/03/17 18:30 Dose: 1 note Rivaroxaban (Xarelto (*)) 20 mg PO QPM [facility] Last Admin: 03/04/17 17:24 Dose: 20 mg Sumatriptan Succinate (Imitrex Tab*) 50 mg PO TID PRN PRN Reason: HEADACHE Last Admin: 03/04/17 17:25 Dose: 50 mg Trazodone HCl (Desyrel Tab*) 400 mg PO BEDTIME PRN PRN Reason: SLEEP Zolpidem Tartrate (Ambien Tab*) 10 mg PO BEDTIME PRN PRN Reason: SLEEP Last Admin: 03/04/17 22:54 Dose: 10 mg Objective: [] Vital Signs Temp Pulse Resp BP Pulse Ox 98.0 F 79 15 124/65 98 03/05/17 07:26 03/05/17 07:26 03/05/17 09:05 03/05/17 07:26 03/05/17 07:26 A&Ox3, EOMI, SOW, good strength equal bilat. Moves independently in bed HRR, S1S2, no murmur LS clear with exp. wheeze R>L +BS, abd. large, round, and soft Obese Assessment: []41 yo female with metastatic breast cancer most recently stable on Taxol/ Herceptin and admitted with intractable VÁZQUEZ that is not improving despite adjusting meds. She has no other underlying neurological symptoms and has had a negative work-up thus far. Plan: []1. Intractable VÁZQUEZ: likely migraine type with negative metastatic work-up, however question if we should check LP. With lack of improvement I have asked neuro to provide input. Unfortunately I am concerned about an underlying psychogenic component (long standing depression) and the potential that her poly -pharmacy is also part of the problem. Will check labs today. 2. N/V: r/t VÁZQUEZ, improved with zofran 3. Hypoxia: resolved with supplemental O2, CT with congestion and question of COPD, but otherwise unclear underlying cause. Some wheeze on expiration L>R and will ask resp. therapy to eval. 4. Stage IV Breast Cancer: due for tx. today but with acute issue will delay 5. Depression: no change in meds, however if she cont.'s to not improve with negative work-up may benefit from have psych see her for input on meds
[2017-03-05] MEDS: Oxymorphone ER (NF) 5 MG TAB PO SCH ×2 (11:19→22:55)
[2017-03-05 13:01] LABS: Hematocrit 33 % (35-47); Hemoglobin 10.8 g/dl (12.0-16.0); Mean Corpuscular HGB Conc 33 g/dl (31-36); Mean Corpuscular Hemoglobin 29 pg (27-31); Mean Corpuscular Volume 90 fL (80-97); Mean Platelet Volume 7 um3 (7.4-10.4); Red Blood Count 3.68 10^6/ul (4.0-5.4); Red Cell Distribution Width 21 % (10.5-15); White Blood Count 10.9 10^3/ul (3.5-10.8)
[2017-03-05 13:22] LABS: Albumin 3.2 g/dL (3.2-5.2); BUN/Creatinine Ratio 19.7 (8-20); Calcium 8.1 mg/dL (8.6-10.3); EGFR African American 140.4 (>60); EGFR Non-African American 109.2 (>60); Globulin 2.4 g/dL (2-4); Potassium 3.6 mmol/L (3.5-5.0); Total Bilirubin 0.4 mg/dL (0.2-1.0); Total Protein 5.6 g/dL (6.4-8.9)
[2017-03-05] MEDS: fentaNYL PATCHs 100 MCG/HR TRANSDERM PRN (16:19)
[2017-03-05] MEDS: fentaNYL Patch Check Q Shift 1 NOTE SCH (16:22)
[2017-03-05] MEDS: Rivaroxaban TAB(*) 20 MG TAB PO SCH (16:23)
[2017-03-05] MEDS: CMCS:Brexpiprazole (NF) 0.5 MG TAB PO SCH (16:24)
[2017-03-05] MEDS: traZODone TAB* 100 MG PO PRN (22:20)
[2017-03-06] MEDS: Morphine INJ* 4 MG/ML 1 ML SYRINGE IV PRN ×9 (00:07→23:06)
--- NOTE | 2017-03-06 00:18 | CONS ---
NEUROLOGY CONSULTATION: DATE OF CONSULT: 03/05/17 LOCATION: The patient is an inpatient. REQUESTING PROVIDER: Patricia Cordero NP REASON FOR CONSULT: Intractable migraines. HISTORY OF PRESENT ILLNESS: Pushpa Guevara is a 41-year-old woman with a history of breast cancer metastatic to liver and spine, on treatment with Herceptin and paclitaxel since July, as well as ovarian vein thrombosis on Xarelto, who presented to [facility] on 03/02/17 with a headache that began approximately on 02/27/17. She reports a history of migraine headaches, but gets the frequency of approximately once a year that she experiences these and denies any other types of headaches. The current headaches started out as an overall holocranial headache, which was throbbing in nature and now has settled on the right side of her head. This is associated with nausea as well as some dry heaves since she has been here and she vomited at home. She also has photophobia and phonophobia as well. She feels that Zofran and morphine have helped the most, but her headache always returns. At home, she tried sumatriptan without relief. She has also been given Toradol as well as additional sumatriptan. Today, she reports continued severe headache. She is also endorsing some numbness of her fourth and fifth digit on her left hand, which she says is residual after she had some swelling in that hand, which extended up into the forearm, the etiology of which is unclear to me. Furthermore when directly questioned, she endorses being able to hear the " blood grewal" in her head, vision changes with some black dots in front of her eyes when she bears down, coughs, or sneezes as well as some balance difficulties when ambulating to the bathroom. She also endorses neck pain, which is worse when she flexes her neck forward. She denies any weakness of her extremities. She does not have any vertigo. She seems to also indicate that she possibly has some diplopia when waking up this morning and opening her eyes initially, but denies any currently. Of note, she started her first menstrual cycle since July in conjunction with the onset of this headache. She has never noticed a relationship in the past between her menstrual cycle and migraine headaches. She did have a prolonged migraine headache of 1-week duration requiring hospitalization when she was with her son, who is almost 13 years old, but she says the headache was not as severe as what she is experiencing currently. Neurology consultation was requested given this intractable headache for further recommendations. PAST MEDICAL HISTORY: 1. Breast cancer metastatic to spine and liver. 2. Ovarian vein thrombosis. 3. Chronic pain. 4. Depression. 5. Anxiety. 6. Insomnia. 7. Migraines. 8. Allergies. 9. Recent admission for narcotic overdose that was possibly accidental. PAST SURGICAL HISTORY: 1. Appendectomy. 2. Three back surgeries. 3. Two C-sections. HOME MEDICATIONS: 1. Mirtazapine 45 mg at bedtime p.r.n. 2. Brexpiprazole 2 mg q.p.m. 3. Alprazolam 1 to 2 mg p.o. 4 times a day p.r.n. 4. Escitalopram 40 mg daily. 5. Flexeril 10 mg daily. 6. Vitamin D3 2000 units b.i.d. 7. Nizoral cream topical b.i.d. p.r.n. 8. Gabapentin 200 mg q.8 p.r.n. 9. Fentanyl 100 mcg patch q.48 hours. 10. Oxymorphone ER 30 mg q.12 p.r.n. 11. Ondansetron 4 mg q.4 p.r.n. 12. Oxycodone 5/10 mg p.o. q.4 hours p.r.n., max daily dose 60 mg. 13. Zolpidem 10 mg bedtime p.r.n. 14. Sumatriptan 50 mg t.i.d. p.r.n. migraine. 15. Xarelto 20 mg q.p.m. 16. Trazodone 400 mg at bedtime p.r.n. Of note, rivaroxaban was last administered today at approximately 4:30 p.m. ALLERGIES: VENLAFAXINE causes hives and ADHESIVE TAPE causes skin breakdown. She is also allergic to COMPAZINE and PHENERGAN. FAMILY HISTORY: Significant for migraines in multiple family members on the father side. She is not in contact with her mother side of the family. SOCIAL HISTORY: She lives at home with her 2 children, 12 and 15 years of age. She is disabled related to her back surgeries. She is . She smokes a quarter pack of cigarettes daily. She denies alcohol or recreational drug use. REVIEW OF SYSTEMS: As per the HPI, otherwise negative. PHYSICAL EXAM: Vital Signs: Temperature 98.3, blood pressure 122/46, heart rate 78, oxygen saturation 97% on room air. On general examination, she is a morbidly obese woman, lying in the dark, on her left side, in her hospital bed. Her dinner tray is at her bedside and is covered. She appears to be mildly uncomfortable. Her heart is in a regular rate and rhythm with no murmurs, rubs, or gallops. She is on oxygen by nasal cannula. Her lungs were clear posteriorly to auscultation. There were no cranial bruits auscultated. On neurologic examination, she is fully awake, alert, and oriented. Speech is fluent without dysarthria or aphasia. On cranial nerve testing, pupils were equal, round, and briskly reactive from 4 to 2 mm bilaterally. She was not able to tolerate funduscopic exam secondary to photophobia. Versions were full without nystagmus. Sánchez are full to confrontation. Facial sensation and musculature is full and symmetric. Hearing is intact to finger rub. The palate elevates symmetrically and the tongue is midline. With attempt to flex her neck forward, she indicates she has pain in the back of her neck and opens her mouth to try to touch her chin to her chest instead. She also indicates pain when extending her neck backward. On motor examination, she has normal strength in the upper and lower extremities with no pronator drift. Sensation is intact to light touch, both upper and lower. Reflexes are 2+ throughout with downgoing toes. [id number] is without ataxia. I did not ambulate the patient at this time. DIAGNOSTIC STUDIES/LAB DATA: CBC shows a white count of 10.9, hematocrit of 33 , hemoglobin of 10.8, and platelets of 265. CMP shows a CO2 of 33, which is up from 29 on admission. Renal function is fine. Calcium is 8.1 and total protein is 5.6. INR is 1.18 and PTT is 35.9. Her pO2 on admission via ABG was 57 with a pCO2 of 64 on 4 L by nasal cannula. Urinalysis was negative. Brain MRI scan was obtained and personally reviewed and shows no evidence of metastatic disease and no obvious leptomeningeal enhancement. IMPRESSION: Pushpa Guevara is a 41-year-old woman with morbid obesity as well as metastatic breast cancer, on treatment with Herceptin and paclitaxel, who has had approximately 1 week of severe migrainous headache associated with photophobia, phonophobia, nausea, and some vomiting. This has been refractory to triptans, opioids as well as antiemetics and NSAIDs. Given her history of obesity as well as her report of some hearing changes and vision changes with Valsalva in addition to her history of breast cancer, I think she needs to undergo a lumbar puncture. I expressed this to the patient and she was anxious as she has undergone this procedure in the past and reports complication requiring blood patch. I expressed the importance of this and she is willing to undergo this in order to help figure out what is causing the headache or potentially treat the headache. I think this needs to be done in the lateral decubitus position in order to measure the opening pressure accurately since intracranial hypertension is on the differential. We should also send the fluid for flow cytometry in addition to usual studies including cell counts, protein, glucose. Given that she is immunosuppressed, other considerations for testing could include crypto antigen, though she has not had any fever. She does have an elevated white count, but Patricia Cordero indicated that she had been on steroids somewhat recently. Since she is on Xarelto, it will be necessary to hold this prior to the lumbar puncture and unfortunately, she has already received this today. The patient was discussed with Dr. Gill at the time of my consultation. Thank you for this consultation. [id number]/[facility] #: [id number] [facility]
[2017-03-06] MEDS: ALPRAZolam TAB* 0.5 MG PO PRN ×2 (04:12→20:37)
[2017-03-06] MEDS: Gabapentin CAP(*) 100 MG PO SCH ×3 (06:00→22:00)
[2017-03-06] MEDS: fentaNYL Patch Check Q Shift 1 NOTE SCH ×2 (07:08→19:22)
[2017-03-06] MEDS: Ondansetron INJ* 2 MG/ML VIAL IV PRN (08:58)
[2017-03-06] MEDS: ESCITALOPRAM 10 MG PO SCH (08:58)
[2017-03-06] MEDS: oxyCODONE TAB* 5 MG TAB PO SCH ×3 (08:59→20:36)
[2017-03-06] MEDS: Cyclobenzaprine TAB* 10 MG PO SCH (09:00)
[2017-03-06] MEDS: Nystatin SUSPENSION* 100000 UNITS/ML 5 ML UDC PO SCH ×4 (09:00→20:38)
[2017-03-06] MEDS: NS 0.9% 1000 ML* 1,000 ML IV SCH (09:05)
[2017-03-06] MEDS: Oxymorphone ER (NF) 5 MG TAB PO SCH ×2 (12:20→22:27)
[2017-03-06] MEDS ORDERED: Ondansetron INJ* 2 MG/ML VIAL IV PRN (15:02)
[2017-03-06] MEDS: Ketorolac INJ* 30 MG/ML 1 ML VIAL IV PUSH PRN (17:54)
[2017-03-06] MEDS: CMCS:Brexpiprazole (NF) 0.5 MG TAB PO SCH (17:56)
[2017-03-06] MEDS: Zolpidem TAB* 10 MG PO PRN (22:00)
[2017-03-07] MEDS: Morphine INJ* 4 MG/ML 1 ML SYRINGE IV PRN ×9 (01:20→22:30)
[2017-03-07] MEDS: Gabapentin CAP(*) 100 MG PO SCH ×3 (05:46→20:58)
[2017-03-07] MEDS: NS 0.9% 1000 ML* 1,000 ML IV SCH (05:57)
[2017-03-07] MEDS: fentaNYL Patch Check Q Shift 1 NOTE SCH ×2 (07:39→18:59)
[2017-03-07] MEDS: Cyclobenzaprine TAB* 10 MG PO SCH (10:28)
[2017-03-07] MEDS: oxyCODONE TAB* 5 MG TAB PO SCH ×3 (10:29→20:59)
[2017-03-07] MEDS: ESCITALOPRAM 10 MG PO SCH (10:29)
[2017-03-07] MEDS: Nystatin SUSPENSION* 100000 UNITS/ML 5 ML UDC PO SCH ×4 (10:30→21:00)
[2017-03-07] MEDS: Oxymorphone ER (NF) 5 MG TAB PO SCH (10:40)
--- NOTE | 2017-03-07 10:40 | PN ---
Progress Note - Progress Note Date of Service: 03/07/17 SOAP: Subjective: []Feels the same. Cont.'d VÁZQUEZ and nausea. Is not really getting up and prefers to lay on left side. Morphine helps, but just barely lasts 2 hrs. Zofran helps stomach. Passing gas and denies other concerns. Medications: Acetaminophen (Tylenol Tab*) 650 mg PO Q4H PRN PRN Reason: FEVER/PAIN Last Admin: 03/04/17 04:31 Dose: 650 mg Alprazolam (Xanax Tab*) 1 mg PO QID PRN PRN Reason: ANXIETY Last Admin: 03/06/17 20:37 Dose: 1 mg Brexpiprazole (Rexulti 0.5 Mg Tab (Nf)) 2 mg PO QPM [facility] Last Admin: 03/06/17 17:56 Dose: 2 mg Cyclobenzaprine HCl (Flexeril Tab*) 10 mg PO DAILY [facility] Last Admin: 03/07/17 10:28 Dose: 10 mg Escitalopram Oxalate (Lexapro (Nf)) 40 mg PO DAILY [facility] Last Admin: 03/07/17 10:29 Dose: 40 mg Fentanyl (Duragesic Patch 100 Mcg/Hr *) 100 mcg TRANSDERM Q48H PRN PRN Reason: PAIN - UNRELIEVED Last Admin: 03/05/17 16:19 Dose: 100 mcg Gabapentin (Neurontin Cap(*)) 200 mg PO Q8HR [facility] Last Admin: 03/07/17 05:46 Dose: 200 mg Ketoconazole (Nizoral 2% Cream (Nf)) 1 applic TOPICAL BID PRN; Protocol PRN Reason: ITCHING Ketorolac Tromethamine (Toradol Inj*) 30 mg IV PUSH Q6H PRN PRN Reason: PAIN Last Admin: 03/06/17 17:54 Dose: 30 mg Mirtazapine (Remeron Tab*) 15 mg PO BEDTIME PRN PRN Reason: SLEEP Last Admin: 03/06/17 22:00 Dose: 15 mg Morphine Sulfate (Morphine Inj (Syringe)*) 4 mg IV Q2H PRN PRN Reason: PAIN Last Admin: 03/07/17 07:42 Dose: 4 mg Nystatin (Nystatin Suspension*) 500,000 units PO QID [facility] Stop: 03/10/17 16:59 Last Admin: 03/07/17 10:30 Dose: 500,000 units Ondansetron HCl (Zofran Inj*) 4 mg IV Q4H PRN PRN Reason: NAUSEA Ondansetron HCl (Zofran Inj*) 8 mg IV Q8H PRN PRN Reason: NAUSEA Oxycodone HCl (Roxycodone Tab*) 10 mg PO TID [facility] Last Admin: 03/07/17 10:29 Dose: 10 mg Oxymorphone HCl (Opana Er (Nf)) 30 mg PO Q12H [facility] Last Admin: 03/07/17 10:40 Dose: 30 mg Pharmacy Profile Note (Fentanyl Patch Check Q Shift) 1 note N/A 0700,1900 [facility] Last Admin: 03/07/17 07:39 Dose: 1 note Sumatriptan Succinate (Imitrex Tab*) 50 mg PO TID PRN PRN Reason: HEADACHE Last Admin: 03/04/17 17:25 Dose: 50 mg Trazodone HCl (Desyrel Tab*) 400 mg PO BEDTIME PRN PRN Reason: SLEEP Last Admin: 03/05/17 22:20 Dose: 400 mg Zolpidem Tartrate (Ambien Tab*) 10 mg PO BEDTIME PRN PRN Reason: SLEEP Last Admin: 03/06/17 22:00 Dose: 10 mg Objective: [] Vital Signs Temp Pulse Resp BP Pulse Ox 98.5 F 80 18 143/70 94 03/07/17 07:36 03/07/17 07:36 03/07/17 10:40 03/07/17 07:36 03/07/17 08:05 A&Ox3, drousy and keeps eyes closed frequently, EOMI, SOW, good strength bilat. -- neuro grossly non-focal HRR, S1S2 without murmur noted LS clear bilat. throughout +BS, abd. soft and non-tender Assessment: []41 yo f with metastatic breast cancer on Herceptin/Taxol with intractable headache and nausea, work-up thus far negative and now awaiting LP (delayed d/t anti-coagulant). Overall she is stable but with no change since admission despite trial of multiple meds. Plan: []1. LP tomorrow AM with Dr. Alford: send CSF for cell count, cytology, crypto, HSV, glucose, and protein 2. No change in meds today, long standing pain management issues and I would like to avoid dilaudid 3. Enc. OOB if possible
[2017-03-07] MEDS ORDERED: Ondansetron INJ* 2 MG/ML VIAL IV PRN ×2 (10:45)
[2017-03-07] MEDS: CMCS:Brexpiprazole (NF) 0.5 MG TAB PO SCH (16:52)
[2017-03-07] MEDS: ALPRAZolam TAB* 0.5 MG PO PRN (20:59)
[2017-03-07] MEDS: Zolpidem TAB* 10 MG PO PRN (21:00)
[2017-03-08] MEDS: Oxymorphone ER (NF) 5 MG TAB PO SCH ×3 (00:03→23:15)
[2017-03-08] MEDS: Morphine INJ* 4 MG/ML 1 ML SYRINGE IV PRN ×11 (00:30→23:11)
[2017-03-08 06:25] LABS: Hematocrit 38 % (35-47); Hemoglobin 12.4 g/dl (12.0-16.0); Mean Corpuscular HGB Conc 33 g/dl (31-36); Mean Corpuscular Hemoglobin 29 pg (27-31); Mean Corpuscular Volume 88 fL (80-97); Mean Platelet Volume 7 um3 (7.4-10.4); Red Blood Count 4.26 10^6/ul (4.0-5.4); Red Cell Distribution Width 21 % (10.5-15); White Blood Count 8.9 10^3/ul (3.5-10.8)
[2017-03-08] MEDS: Gabapentin CAP(*) 100 MG PO SCH ×3 (06:30→20:51)
[2017-03-08 06:39] LABS: Albumin 3.5 g/dL (3.2-5.2); BUN/Creatinine Ratio 15.5 (8-20); Calcium 9.2 mg/dL (8.6-10.3); EGFR African American 117.9 (>60); EGFR Non-African American 91.6 (>60); Globulin 2.5 g/dL (2-4); Potassium 3.3 mmol/L (3.5-5.0); Total Bilirubin 0.7 mg/dL (0.2-1.0)
[2017-03-08] MEDS: fentaNYL Patch Check Q Shift 1 NOTE SCH ×2 (07:22→20:52)
[2017-03-08] MEDS: Nystatin SUSPENSION* 100000 UNITS/ML 5 ML UDC PO SCH ×4 (07:23→20:49)
[2017-03-08] MEDS: Cyclobenzaprine TAB* 10 MG PO SCH (07:24)
[2017-03-08] MEDS: oxyCODONE TAB* 5 MG TAB PO SCH ×3 (07:24→20:50)
[2017-03-08] MEDS: ESCITALOPRAM 10 MG PO SCH (07:25)
--- NOTE | 2017-03-08 09:39 | PN ---
Progress Note - Progress Note Date of Service: 03/08/17 SOAP: Subjective: []Feels like VÁZQUEZ is better today. Started 8 days ago, similar to migraines and cluster VÁZQUEZ in past but has been 13 years ago since this bad. Of note, last 7 day hospitalization for VÁZQUEZ was after son born and this VÁZQUEZ started concurrent with re-starting of menstrual cycles. Has not had F/C, has neck stiffness. No focal neuralgic symptoms. Acetaminophen (Tylenol Tab*) 650 mg PO Q4H PRN PRN Reason: FEVER/PAIN Last Admin: 03/04/17 04:31 Dose: 650 mg Alprazolam (Xanax Tab*) 1 mg PO QID PRN PRN Reason: ANXIETY Last Admin: 03/07/17 20:59 Dose: 1 mg Brexpiprazole (Rexulti 0.5 Mg Tab (Nf)) 2 mg PO QPM [facility] Last Admin: 03/07/17 16:52 Dose: 2 mg Cyclobenzaprine HCl (Flexeril Tab*) 10 mg PO DAILY [facility] Last Admin: 03/08/17 07:24 Dose: 10 mg Escitalopram Oxalate (Lexapro (Nf)) 40 mg PO DAILY [facility] Last Admin: 03/08/17 07:25 Dose: 40 mg Fentanyl (Duragesic Patch 100 Mcg/Hr *) 100 mcg TRANSDERM Q48H PRN PRN Reason: PAIN - UNRELIEVED Last Admin: 03/05/17 16:19 Dose: 100 mcg Gabapentin (Neurontin Cap(*)) 200 mg PO Q8HR [facility] Last Admin: 03/08/17 06:30 Dose: 200 mg Heparin Sodium (Porcine) (Heparin Flush Port (Ivad)) 5 ml FLUSH DAILY [facility] PRN Reason: Protocol Last Admin: 03/08/17 07:26 Dose: 5 ml Ketoconazole (Nizoral 2% Cream (Nf)) 1 applic TOPICAL BID PRN; Protocol PRN Reason: ITCHING Ketorolac Tromethamine (Toradol Inj*) 30 mg IV PUSH Q6H PRN PRN Reason: PAIN Last Admin: 03/06/17 17:54 Dose: 30 mg Mirtazapine (Remeron Tab*) 15 mg PO BEDTIME PRN PRN Reason: SLEEP Last Admin: 03/06/17 22:00 Dose: 15 mg Morphine Sulfate (Morphine Inj (Syringe)*) 4 mg IV Q2H PRN PRN Reason: PAIN Last Admin: 03/08/17 08:03 Dose: 4 mg Nystatin (Nystatin Suspension*) 500,000 units PO QID [facility] Stop: 03/10/17 16:59 Last Admin: 03/08/17 07:23 Dose: 500,000 units Ondansetron HCl (Zofran Inj*) 4 mg IV Q4H PRN PRN Reason: NAUSEA Ondansetron HCl (Zofran Inj*) 8 mg IV Q8H PRN PRN Reason: NAUSEA Oxycodone HCl (Roxycodone Tab*) 10 mg PO TID [facility] Last Admin: 03/08/17 07:24 Dose: 10 mg Oxymorphone HCl (Opana Er (Nf)) 30 mg PO Q12H [facility] Last Admin: 03/08/17 00:03 Dose: 30 mg Pharmacy Profile Note (Fentanyl Patch Check Q Shift) 1 note N/A 0700,1900 [facility] Last Admin: 03/08/17 07:22 Dose: 1 note Sumatriptan Succinate (Imitrex Tab*) 50 mg PO TID PRN PRN Reason: HEADACHE Last Admin: 03/04/17 17:25 Dose: 50 mg Trazodone HCl (Desyrel Tab*) 400 mg PO BEDTIME PRN PRN Reason: SLEEP Last Admin: 03/05/17 22:20 Dose: 400 mg Zolpidem Tartrate (Ambien Tab*) 10 mg PO BEDTIME PRN PRN Reason: SLEEP Last Admin: 03/07/17 21:00 Dose: 10 mg Objective: [] Vital Signs Temp Pulse Resp BP Pulse Ox 99.1 F 68 18 142/59 98 03/08/17 07:25 03/08/17 07:25 03/08/17 08:03 03/08/17 07:25 03/08/17 08:35 A&Ox3, responsive. Normal speech pattern, CN II-XII intact and otherwise grossly non focal. HRR, S1S2 without murmur noted LS clear bilat. throughout +BS, abd. soft and non-tender Assessment: []41 yo f with metastatic breast cancer on Herceptin/Taxol with intractable headache and nausea, work-up thus far negative and now awaiting LP (delayed d/t anti-coagulant). Appears to be improving today. Plan: []1. LP today Dr. Alford: send CSF for cell count, cytology, crypto, HSV, glucose, and protein 2. No change in meds today, long standing pain management issues, avoid dilaudid 3. Will work to D/C next several days if continues to improve.
[2017-03-08] MEDS: ALPRAZolam TAB* 0.5 MG PO PRN ×2 (10:38→20:51)
[2017-03-08 11:18] LABS: CSF Glucose 61 mg/dL (40-70)
[2017-03-08 11:39] LABS: Body Fluid Appearance Clear
[2017-03-08 11:41] LABS: BF RBC Count #1 0; BF RBC Count #2 0; BF WBC Count #1 1; BF WBC Count #2 2; RBC counts within 6%? Yes; WBC counts within 15%? Yes
[2017-03-08 12:51] LABS: Body Fluid Total Cells Counted 25
[2017-03-08 13:44] LABS: Body Fluid WBC 2 /mcL
[2017-03-08] MEDS: CMCS:Brexpiprazole (NF) 0.5 MG TAB PO SCH (18:31)
[2017-03-08] MEDS: Zolpidem TAB* 10 MG PO PRN (20:51)
[2017-03-08] MEDS: fentaNYL PATCHs 100 MCG/HR TRANSDERM PRN (21:56)
[2017-03-08] MEDS: traZODone TAB* 100 MG PO PRN (21:58)
--- NOTE | 2017-03-09 00:58 | PM ---
[facility] NOTE: DATE OF VISIT: 03/08/17 CHIEF COMPLAINT: Headaches in the setting of metastatic breast cancer. HISTORY: The patient is a 41-year-old female who is an inpatient in the hospital with a history of metastatic breast cancer. She has been in the hospital for headache workup and nausea, and Dr. Jaxson engel had requested that we perform a diagnostic lumbar puncture. They had contacted Dr. Beard yester day; however, he reviewed her medications and she had been on Xarelto which had been stopped only fo r 2 days, so today would be the third day, so he recommended having the lumbar puncture today and as ked me to perform it. I talked with the patient about the procedure, the risks, benefits, the alter natives to therapy and since she has been off her Xarelto for 3 days, her INR is normal and her plat elet count is normal. We will proceed with a diagnostic lumbar puncture today. Informed consent wa s obtained. PROCEDURE NOTE: The patient was placed in a sitting position. Low back was prepped and draped in t he usual sterile fashion. 3 cc of 1% lidocaine was used for local anesthesia at the L3-4 interspace . A 25-gauge Pencan needle was passed via the introducer into the subarachnoid space. There was fr ee flow of clear cerebrospinal fluid. There was no paresthesias or blood noted. I proceeded to col lect 4 vials of clear cerebrospinal fluid and it will be sent to the laboratory per Dr. Cordova's o rders. The patient tolerated the procedure well. [id number]/[facility] #: [id number]
[2017-03-09] MEDS: Morphine INJ* 4 MG/ML 1 ML SYRINGE IV PRN ×3 (01:36→06:38)
--- NOTE | 2017-03-09 06:32 | PN ---
NEUROLOGY FOLLOWUP NOTE: DATE OF FOLLOWUP: 03/08/17 HISTORY: Pushpa underwent lumbar puncture earlier today. She reports that her headache has reduced from an 8 to a 6. She reports that the procedure was done in the seated position and she was not laid flat during the procedure, so it does not sound like opening pressure was measured. She asks when she can go home. MEDICATIONS: Reviewed and include: 1. Tylenol 650 mg q.4 hours p.r.n. 2. Xanax 1 mg four times a day p.r.n. anxiety. 3. Brexpiprazole 2 mg daily. 4. Flexeril 10 mg daily. 5. Lexapro 40 mg daily. 6. Fentanyl 100 mcg q.48 hours. 7. Neurontin 200 mg q.8 hours. 8. Remeron 15 mg at bedtime. 9. Morphine 4 mg IV q.2 p.r.n. pain. 10. Oxycodone 10 mg t.i.d. 11. Opana 30 mg q.12 hours scheduled. 12. Trazodone 400 mg p.r.n. at bedtime, which she has not taken since 03/05/17. 13. Ambien 10 mg p.r.n. sleep, which she did take last night. I note that she has used morphine today at 16:41, then earlier at 14:41, then 12 :14, then 10:11, and is requiring it very frequently. PHYSICAL EXAMINATION: Vital Signs: Temperature 98.2, blood pressure 136/64, heart rate 67, oxygen saturation 97% on room air. Pushpa was not formally examined today. She was asleep in her bed and awakened easily upon my entering. Her speech was slow without dysarthria or aphasia. She moved all extremities equally. She did not appear to be in great discomfort. She indicated that she ate approximately half of her dinner. LABORATORY DATA: The CSF showed 2 white blood cells, 0 rbc, glucose of 61, and protein which is slightly elevated at 61. Crypto antigen and HSV are pending. Gram stain was negative. There were no abnormal cells noted by the pathologist. IMPRESSION: Pushpa Guevara is a 41-year-old woman with metastatic breast cancer as well as a history of migraine headaches, who is here with intractable headache. Her MRI scan has not shown any evidence for metastatic disease nor any obvious signs consistent with idiopathic intracranial hypertension. Her spinal fluid does not show any inflammatory changes. At this point, I would continue trying to break this headache cycle. There is no obvious secondary cause for the headache. Options going forward would include a Depakote load of 1000 mg, magnesium IV 2 g. In addition, DHE could be considered if needed as could steroids (though these may have been tried earlier in the hospitalization) . Dr. Urbina takes over the service tonight and has received sign-on on the patient. [id number]/[facility] #: [id number] [facility]
[2017-03-09] MEDS: Gabapentin CAP(*) 100 MG PO SCH ×2 (06:39→13:37)
[2017-03-09] MEDS: fentaNYL Patch Check Q Shift 1 NOTE SCH (07:36)
[2017-03-09] MEDS: ESCITALOPRAM 10 MG PO SCH (08:11)
[2017-03-09] MEDS: Nystatin SUSPENSION* 100000 UNITS/ML 5 ML UDC PO SCH ×2 (08:11→13:38)
[2017-03-09] MEDS: oxyCODONE TAB* 5 MG TAB PO SCH ×2 (08:12→13:38)
[2017-03-09] MEDS: Cyclobenzaprine TAB* 10 MG PO SCH (08:12)
[2017-03-09 08:41] LABS: Albumin 3.6 g/dL (3.2-5.2); BUN/Creatinine Ratio 17.5 (8-20); Calcium 9.3 mg/dL (8.6-10.3); EGFR African American 135.3 (>60); EGFR Non-African American 105.2 (>60); Globulin 2.5 g/dL (2-4); Potassium 3.4 mmol/L (3.5-5.0); Total Bilirubin 0.7 mg/dL (0.2-1.0); Total Protein 6.1 g/dL (6.4-8.9)
[2017-03-09] MEDS: Oxymorphone ER (NF) 5 MG TAB PO SCH (11:09)
[2017-03-09] MEDS: ALPRAZolam TAB* 0.5 MG PO PRN (12:09)
[2017-03-09 12:12] VITALS: BP 134/67
--- NOTE | 2017-03-09 14:02 | PN ---
AMENDED REPORT TO CORRECT ACCOUNT NUMBER - ESIGNED BEFORE ADJUSTMENT NEUROLOGY FOLLOWUP: DATE OF FOLLOWUP: 03/09/17 SUBJECTIVE: Ms. Guevara is about the same overnight. She continues to have headaches, which are approximately 6 to 8 in severity. She reports that she has had some headaches after her lumbar puncture yesterday. She did have a spinal tap yesterday and her fluid studies were essentially normal with no evidence of inflammation or infection. MEDICATIONS: Current medications were reviewed. She is currently on: 1. Acetaminophen. 2. Alprazolam. 3. Brexpiprazole. 4. Cyclobenzaprine. 5. Lexapro. 6. Fentanyl patch. 7. Gabapentin. 8. Heparin. 9. Ketoconazole. 10. Mirtazapine. 11. Morphine sulfate. OBJECTIVE: Her vital signs are stable. Her last temperature was 98.2, pulse of 70, respiratory rate of 16, O2 sat of 97%, blood pressure 123/51. In general , she is a well-nourished, well-developed, obese female, in no acute distress. She is sitting up on the side of her bed. HEENT: She is normocephalic, atraumatic. Sclerae are anicteric. Mucous membranes are moist. Neck is supple. Chest is clear to auscultation bilaterally. Cardiovascular: Regular rate and rhythm. Abdomen is obese, nontender. Extremities: No cyanosis or clubbing. Neurologically, she is awake, alert, oriented x3. Her speech is fluent. There is no dysarthria. Cranial nerves II through XII are intact. She spontaneously moves all extremities. Intact gravity with good strength. Sensation is intact to light touch and pinprick throughout. She is following all commands. She is ambulating. The gait was not tested at this time. LABORATORY DATA: Her labs and CSF studies were reviewed as above. ASSESSMENT AND PLAN: Ms. Guevara is a 41-year-old female with a history of metastatic breast cancer, history of migraine headaches dating back for years. She was admitted with intractable headache. Had an MRI scan, which showed no evidence of any intracranial metastatic disease. Spinal fluid was negative for infection or inflammation. At this point, I suspect that these are primary headaches and not related to any underlying medical condition at this time. I would continue to treat conservatively. I told her that I would be glad to see her as an outpatient and she is to call my office on Saturday and we will schedule her for an appointment at which point we can consider more long-term therapy. If her headaches continue, you could consider Depakote, although she reports that she is going home today and appears to be stable with her headache under moderate control. I am okay for discharge today and we will plan outpatient followup. [id number]/[facility] #: [id number] [place]
--- NOTE | 2017-03-09 14:10 | DS ---
DISCHARGE SUMMARY: DATE OF ADMISSION: 03/02/17 DATE OF DISCHARGE: 03/09/17 DISCHARGE DIAGNOSES: 1. Refractory headache, question migraines. 2. Metastatic breast cancer. 3. Chronic pain. HOSPITAL COURSE: Please see history and physical on 03/02/17 for details of presentation. She kerrie nielsen came in with severe refractory headache. Her chief complaint was bad migraines. She had ta ajit sumatriptan at home, but it did not make any difference. Headaches were throbbing pain, variabl e, but some pain continuous throughout the day. Mild photophobia. No nausea or vomiting. Similar to migraine headaches she has had in the past but more severe. She was admitted and placed on IV mo rphine as well as her outpatient pain medications, which include fentanyl and oral morphine. She ty d a consultation by Neurology, Dr. Lainez, who recommended lumbar puncture. She had an MRI of the br ain that was negative. Lumbar puncture took another 2 days after we held her Xarelto. It was ultima tely performed on 03/08/17. Lumbar puncture showed white blood cell count 2, red blood cell 0 in tu be 4, total cell count 25 with a diff of 44 lymphocytes, 52% monos. Glucose is 61 and protein was 61 . Cytology was sent and is pending. Over the past 4 days, her headache has improved somewhat. It is a little better today than it has been, although still fairly severe. She does note that she had one other time where she had a migraine that lasted a week, it was after the of her son. This migraine did come on concurrent with restarting of her menstrual cycles. The narcotics helped some . Nonsteroidals do not seem to do anything. She is very anxious to get home and she wants to see h er children. I do not see additional studies to be done at this time. I think it is reasonable that she go home and continue symptomatic treatment. DISCHARGE MEDICATIONS: 1. Aripiprazole 10 mg daily. 2. Aspirin 81 a day. 3. Cetirizine 10 mg daily. 4. Vitamin D 4000 a day. 5. Flexeril 10 at bedtime. 6. Lexapro 40 daily. 7. Fentanyl patch 100 mcg daily. 8. Gabapentin 100 mg morning and midday and 300 mg at bedtime. 9. Ondansetron 4 mg 6 times a day p.r.n. nausea. 10. Opana ER 20 mg q.12 hours. 11. Oxycodone 10 mg q.4 p.r.n. 12. Potassium 20 mEq a day. 13. Sumatriptan 50 mg t.i.d. p.r.n. 14. Trazodone 150 mg at bedtime. 15. Xarelto 20 mg a day (restart). 16. Ambien 10 mg q.h.s. 17. Zyprexa 10 mg at bedtime. We will have her follow up with Dr. Cordova next week. She should call over the weekend if the hea daches get any worse. [id number]/[facility] #: [id number]
[2017-03-09 17:26] LABS: HSV 1 PCR, CSF Negative (Negative); HSV 2 PCR, CSF Negative (Negative)
== END 2017-03-09 14:00 | disposition home or self-care (01) | DRG 54 ==
LOC: ED 17:31 → MED 21:38
PROVIDERS: ADMIT Internal Medicine; ATTEND Internal Medicine Hematology & Oncology
PROC: 009U3ZX Drainage of Spinal Canal, Percutaneous Approach, Diagnostic (ICD-10-PCS; principal; 2017-03-08)
DX: G43.919 Migraine, unspecified, intractable, without status migrainosus (principal); C78.7 Secondary malignant neoplasm of liver and intrahepatic bile duct; C79.51 Secondary malignant neoplasm of bone; I82.890 Acute embolism and thrombosis of other specified veins; K51.90 Ulcerative colitis, unspecified, without complications; Z99.81 Dependence on supplemental oxygen; E66.01 Morbid (severe) obesity due to excess calories; E78.00 Pure hypercholesterolemia, unspecified; M19.90 Unspecified osteoarthritis, unspecified site; F41.0 Panic disorder [episodic paroxysmal anxiety]; F43.10 Post-traumatic stress disorder, unspecified; F32.9 Major depressive disorder, single episode, unspecified; F17.210 Nicotine dependence, cigarettes, uncomplicated; G89.29 Other chronic pain; F51.4 Sleep terrors [night terrors]; J30.2 Other seasonal allergic rhinitis; R40.2142 Coma scale, eyes open, spontaneous, at arrival to emergency department; R40.2252 Coma scale, best verbal response, oriented, at arrival to emergency department; R40.2362 Coma scale, best motor response, obeys commands, at arrival to emergency department; C50.919 Malignant neoplasm of unspecified site of unspecified female breast; M43.6 Torticollis; R09.02 Hypoxemia; Z68.39 Body mass index [BMI] 39.0-39.9, adult; Z88.8 Allergy status to other drugs, medicaments and biological substances; Z86.718 Personal history of other venous thrombosis and embolism; Z91.5 Personal history of self-harm; Z91.011 Allergy to milk products; Z79.82 Long term (current) use of aspirin; Z79.01 Long term (current) use of anticoagulants
CPT/HCPCS: 36415; 36600; 70450; 70553; 71020; 71275; 80048; 80053; 81003; 82803; 82945; 83605; 83735; 84157; 84484; 84702; 85025; 85379; 85610; 85730; 87040; 87070; 87205; 87529; 87899; 89051; 93005; 94640; 94760; 99232; 99239; 99406; A9270-GY; A9579; J1170; J1642; J1885; J2270; J2405; J2543; J2920; J3370; J7615; Q9967

== ENCOUNTER 2017-03-28 01:30 | Emergency (ER) | payer OTHER ==
[2017-03-28] MEDS ORDERED: Ondansetron INJ* 2 MG/ML VIAL IV ONE (02:14)
[2017-03-28] MEDS ORDERED: NS 0.9% 1000 ML* 1,000 ML IV ONE (02:14)
[2017-03-28] MEDS ORDERED: Morphine INJ* 4 MG/ML 1 ML SYRINGE IV ONE (02:14)
[2017-03-28] MEDS ORDERED: Acetaminophen TAB* 325 MG PO ONE (02:18)
[2017-03-28 03:41] LABS: Hematocrit 39 % (35-47); Hemoglobin 12.7 g/dl (12.0-16.0); Mean Corpuscular HGB Conc 33 g/dl (31-36); Mean Corpuscular Hemoglobin 29 pg (27-31); Mean Corpuscular Volume 89 fL (80-97); Mean Platelet Volume 7 um3 (7.4-10.4); Red Blood Count 4.37 10^6/ul (4.0-5.4); Red Cell Distribution Width 22 % (10.5-15); White Blood Count 8.7 10^3/ul (3.5-10.8)
[2017-03-28 03:47] LABS: Urine Bacteria Absent (Absent); Urine Bilirubin Negative (Negative); Urine Glucose Negative (Negative); Urine Nitrite Negative (Negative)
[2017-03-28 03:53] LABS: Albumin 3.8 g/dL (3.2-5.2); BUN/Creatinine Ratio 13.2 (8-20); Calcium 8.9 mg/dL (8.6-10.3); EGFR African American 123.9 (>60); EGFR Non-African American 96.3 (>60); Globulin 2.9 g/dL (2-4); Potassium 4.1 mmol/L (3.5-5.0); Total Bilirubin 0.4 mg/dL (0.2-1.0); Total Protein 6.7 g/dL (6.4-8.9)
[2017-03-28] MEDS ORDERED: Levofloxacin TAB* 500 MG PO ONE (04:35)
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
[2017-03-28 05:07] VITALS: BP 109/66
--- NOTE | 2017-03-28 08:09 | RAD ---
INDICATION: Fever. COMPARISON: Comparison is made to prior chest x-ray study from March 02, 2017. TECHNIQUE: Dual-energy PA and lateral views of the chest were obtained. FINDINGS: There is a power port central venous catheter entering on the left side. The catheter tip projects over the right atrium. The heart is within normal limits in size. The lungs are clear. No pleural effusion is present. IMPRESSION: NO EVIDENCE FOR ACTIVE CARDIOPULMONARY DISEASE.
--- NOTE | 2017-03-28 08:11 | RAD ---
Indication: Headaches, fever. CT of the brain was performed without IV contrast. Intratesticular structures are midline. No midline shift is noted. The extra-axial spaces are unremarkable. There is no evidence of intracranial mass or hemorrhage. No other high or low density lesions are identified. Mastoid air cells and paranasal sinuses are otherwise unremarkable. No changes noted since March 02, 2017. IMPRESSION: No intracranial lesion is identified.
== END 2017-03-28 05:30 | disposition home or self-care (01) ==
LOC: ED 01:30
DX: R50.9 Fever, unspecified (principal); J40 Bronchitis, not specified as acute or chronic; Z85.3 Personal history of malignant neoplasm of breast; R51 Headache; R53.1 Weakness; F17.210 Nicotine dependence, cigarettes, uncomplicated
CPT/HCPCS: 36415; 70450; 71020; 80053; 81003; 81015; 83605; 84702; 85025; 85610; 85730; 87040; 87086; 99284; A9270-GY; J2270; J2405

== ENCOUNTER 2017-04-30 01:15 | Emergency (ER) | payer OTHER ==
[2017-04-30] MEDS ORDERED: Vancomycin(*) 1,500 MG in NS 0.9% 250 ML* 250 ML IVPB ONE (03:22)
[2017-04-30] MEDS ORDERED: Cefepime(*) 1 GM in NS 0.9% 50 ML* 50 ML IVPB ONE (04:00)
[2017-04-30 04:08] LABS: Comments Flag Yes; Hematocrit 39 % (35-47); Hemoglobin 12.6 g/dl (12.0-16.0); Mean Corpuscular HGB Conc 33 g/dl (31-36); Mean Corpuscular Hemoglobin 29 pg (27-31); Mean Corpuscular Volume 90 fL (80-97); Mean Platelet Volume 7 um3 (7.4-10.4); Red Blood Count 4.29 10^6/ul (4.0-5.4); Red Cell Distribution Width 22 % (10.5-15); White Blood Count 14.3 10^3/ul (3.5-10.8)
[2017-04-30 04:21] LABS: ALT 23 U/L (7-52); AST 19 U/L (13-39); Albumin 3.4 g/dL (3.2-5.2); Alkaline Phosphatase 71 U/L (34-104); Anion Gap 5 mmol/L (2-11); BUN/Creatinine Ratio 8.3 (8-20); Blood Urea Nitrogen 6 mg/dL (6-24); C Reactive Protein 17.04 mg/L (< 5.00); CO2 Carbon Dioxide 29 mmol/L (22-32); Calcium 8.6 mg/dL (8.6-10.3); Chloride 101 mmol/L (101-111); Creatine Kinase 41 U/L (10-223); EGFR Non-African American 90.2 (>60); Glucose 117 mg/dL (70-100); Potassium 3.9 mmol/L (3.5-5.0); Sodium 135 mmol/L (133-145); Total Protein 6.4 g/dL (6.4-8.9)
--- NOTE | 2017-04-30 08:05 | RAD ---
INDICATION: Fever and a breast cancer patient. COMPARISON: Most recent comparison chest x-ray April 03, 2017 TECHNIQUE: Single AP portable view of the chest was obtained. FINDINGS: Image quality is compromised due to the relative inferiority of a portable chest x-ray. Again seen is a left subclavian vein Mediport with the tip terminating at the cavoatrial junction. The heart and mediastinum exhibit normal size and contour. The lungs are grossly clear. There is no evidence of a large pleural effusion. Visualized bones are normal for the patient's age. IMPRESSION: No radiographic evidence for acute cardiopulmonary abnormality on this portable chest x-ray.
[2017-04-30] MEDS ORDERED: NS 0.9% 1000 ML* 1,000 ML IV ONE (08:44)
--- NOTE | 2017-04-30 08:50 | PN ---
Progress Note - Progress Note Date of Service: 04/30/17 SOAP: Subjective: []Presented to ER with fever up to 101.7F last night. Started to feel crummy yesterday and biggest complaint is body aches. Has been coughing, though is not bringing up any sputum. Denies SOB. Has been congested and 5 yo son is congested as well. Home Medications Medication Instructions Recorded Confirmed Type Ondansetron TAB* [Zofran 4 MG Tab*] 4 mg PO Q4HR PRN 10/02/16 03/02/17 History SUMAtriptan TAB* [Imitrex TAB*] 50 mg PO TID PRN #0 tab 10/05/16 03/02/17 Rx ALPRAZolam TAB* [Xanax TAB*] 1 - 2 mg PO QID PRN 02/21/17 03/02/17 History Brexpiprazole [Rexulti] 2 mg PO QPM 02/21/17 03/02/17 History Cholecalciferol [Vitamin D3 Super 2,000 unit PO BID 02/21/17 03/02/17 History Strength] Cyclobenzaprine TAB* [Flexeril 10 10 mg PO DAILY 02/21/17 03/02/17 History MG TAB*] Escitalopram (NF) [Lexapro 20 mg 40 mg PO DAILY 02/21/17 03/02/17 History (NF)] Fentanyl [Duragesic] 100 mcg TOPICAL Q48HR PRN 02/21/17 03/02/17 History Gabapentin CAP(*) [Neurontin 100 200 mg PO Q8HR PRN 02/21/17 03/02/17 History mg CAP(*)] Ketoconazole 2 % CREAM (NF) 1 applic TOPICAL BID PRN 02/21/17 03/02/17 History [Nizoral 2% CREAM (NF)] Oxymorphone ER (NF) [Opana ER (NF)] 30 mg PO Q12H PRN 02/21/17 03/02/17 History Zolpidem TAB* [Ambien*] 10 mg PO BEDTIME PRN 02/21/17 03/02/17 History oxyCODONE TAB* [Roxycodone TAB 5 5 - 10 mg PO .Q4-6H PRN MDD 60mg 02/21/1703/02 History mg*] traZODone TAB* [Desyrel TAB*] 400 mg PO BEDTIME PRN 02/21/17 03/02/17 History Mirtazapine TAB* [Remeron TAB*] 45 mg PO BEDTIME PRN 03/02/17 03/05/17 History Rivaroxaban TAB(*) [Xarelto 20 mg] 20 mg PO QPM 03/02/17 03/02/17 History OLANzapine TAB* [Zyprexa 10 MG 10 mg PO BEDTIME 30 Days 03/09/17 Rx TAB*] Levofloxacin TAB* [Levaquin TAB*] 500 mg PO DAILY #7 tab 03/28/17 Rx -- list not updated d/t pt.'s poor recall and not having a list. Not currently on Levaquin per Oncology records. Given dose of Cefepime and dose of Vanco in ER. Very sleepy this AM and tells me this is b/c she didn't sleep last night and achiness makes her tired. ROS: No HAs or change in vision No chest pain or pressure No SOB or difficulty breathing No N/V/D/C No pain with urination, no foul smell, and no frequency Long standing pain unchanged PMH: Chronic pain Objective: [] Vital Signs Temp Pulse Resp BP Pulse Ox 98.6 F 86 14 119/59 93 04/30/17 06:22 04/30/17 07:30 04/30/17 07:30 04/30/17 07:30 04/30/17 07:30 A&Ox3, EOMI, PERRLA, neuro grossly non-focal Sleepy but arouses easily to voice and carries conversation though will fall asleep quickly SOW and adjusts self in bed without assistance HRR, SR on tele, no murmur noted, no ectopy LS with insp. wheeze, no crackles +BS, abd. soft and non-tender without masses or hepatosplenomegaly +PP=bilat. Laboratory Results - last 24 hr 04/30/17 04/30/17 04/30/17 03:45 03:45 03:45 WBC 14.3 H RBC 4.29 Hgb 12.6 Hct 39 MCV 90 MCH 29 MCHC 33 RDW 22 H Plt Count 265 MPV 7 L Neut % (Auto) 76.6 Lymph % (Auto) 13.9 L [place] % (Auto) 6.5 Eos % (Auto) 2.3 Baso % (Auto) 0.7 Absolute Neuts (auto) 11.2 H Absolute Lymphs (auto) 2.0 Absolute Monos (auto) 0.9 H Absolute Eos (auto) 0.3 Absolute Basos (auto) 0.1 Absolute Nucleated RBC 0.01 Nucleated RBC % 0.1 INR (Anticoag Therapy) 1.32 H Sodium 135 Potassium 3.9 Chloride 101 Carbon Dioxide 29 Anion Gap 5 BUN 6 Creatinine 0.72 Est GFR ( Amer) 116.0 Est GFR (Non-Af Amer) 90.2 BUN/Creatinine Ratio 8.3 Glucose 117 H Lactic Acid Calcium 8.6 Total Bilirubin 0.30 AST 19 ALT 23 Alkaline Phosphatase 71 Total Creatine Kinase 41 CK-MB (CK-2) 0.7 Troponin I 0.00 C-Reactive Protein 17.04 H Total Protein 6.4 Albumin 3.4 Globulin 3.0 Albumin/Globulin Ratio 1.1 Beta HCG, Quant < 0.60 04/30/17 03:45 WBC RBC Hgb Hct MCV MCH MCHC RDW Plt Count MPV Neut % (Auto) Lymph % (Auto) Haywood % (Auto) Eos % (Auto) Baso % (Auto) Absolute Neuts (auto) Absolute Lymphs (auto) Absolute Monos (auto) Absolute Eos (auto) Absolute Basos (auto) Absolute Nucleated RBC Nucleated RBC % INR (Anticoag Therapy) Sodium Potassium Chloride Carbon Dioxide Anion Gap BUN Creatinine Est GFR ( Amer) Est GFR (Non-Af Amer) BUN/Creatinine Ratio Glucose Lactic Acid 1.1 Calcium Total Bilirubin AST ALT Alkaline Phosphatase Total Creatine Kinase CK-MB (CK-2) Troponin I C-Reactive Protein Total Protein Albumin Globulin Albumin/Globulin Ratio Beta HCG, Quant Assessment: []41 yo female with metastatic triple positive breast cancer currently on maintenance Herceptin, Arimidex, Lupron most recently treated on 04/23. Presented to ER with new onset fevers and body aches. CXR and lactic acid negative, urine pending. She has not had a flu swab. At this time based on her presentation, negative exam, and lack of neutropenia or recent chemotherapy I am apt to manage her as an outpatient as I believe ultimately her fever is viral in nature. Pushpa very much would like this. Plan: []1. Fever: likely viral, will obtain flu swab, and check urine. If flu positive will provide tamiflu, if negative will cover empirically for resp. illness vs. UTI with Augmentin and d/c home. OK to take Tylenol. 2. Hypotension: mild, 1 L NS bolus prior to d/c Disposition: D/C home from ER. FU with this script writer in oncology office @[id number]
[2017-04-30 10:03] LABS: Urine Bacteria Absent (Absent); Urine Bilirubin Negative (Negative); Urine Glucose Negative (Negative); Urine Nitrite Negative (Negative)
[2017-04-30 10:59] VITALS: BP 107/48
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
== END 2017-04-30 10:59 | disposition home or self-care (01) ==
LOC: ED 01:15
DX: R50.9 Fever, unspecified (principal); C80.1 Malignant (primary) neoplasm, unspecified; R03.0 Elevated blood-pressure reading, without diagnosis of hypertension
CPT/HCPCS: 36415; 71010; 80053; 81003; 82550; 82553; 83605; 84484; 84702; 85025; 85610; 86140; 87040; 87502; 93005; 99283; J0692; J3370

== ENCOUNTER 2017-06-28 15:38 | Inpatient (IN) | payer OTHER ==
--- NOTE | 2017-06-28 19:27 | RAD ---
Indication: Chest pain. Single frontal view of the chest performed at 1905 hours was reviewed. Comparison is made with previous exam dated May 03, 2017. Cardiomegaly. Interstitial edema is noted. Central line is in place. IMPRESSION: CARDIOMEGALY WITH INTERSTITIAL EDEMA.
[2017-06-28 19:40] LABS: Hematocrit 42 % (35-47); Hemoglobin 13.8 g/dl (12.0-16.0); Mean Corpuscular HGB Conc 33 g/dl (31-36); Mean Corpuscular Hemoglobin 30 pg (27-31); Mean Corpuscular Volume 91 fL (80-97); Mean Platelet Volume 8 um3 (7.4-10.4); Red Blood Count 4.62 10^6/ul (4.0-5.4); Red Cell Distribution Width 19 % (10.5-15); White Blood Count 14.8 10^3/ul (3.5-10.8)
[2017-06-28 19:45] LABS: Albumin 3.6 g/dL (3.2-5.2); BUN/Creatinine Ratio 10.8 (8-20); C Reactive Protein 48.48 mg/L (< 5.00); Calcium 9.1 mg/dL (8.6-10.3); Direct Bilirubin 0.1 mg/dL (0.03-0.18); EGFR African American 112.4 (>60); EGFR Non-African American 87.4 (>60); Globulin 3.4 g/dL (2-4); Indirect Bilirubin 0.2 mg/dL (0.3-1.0); Total Bilirubin 0.3 mg/dL (0.2-1.0)
[2017-06-28 19:49] LABS: Urine Bacteria Absent (Absent); Urine Bilirubin Negative (Negative); Urine Glucose Negative (Negative); Urine Nitrite Negative (Negative)
[2017-06-28 20:23] LABS: Erythrocyte Sed Rate 53 mm/Hr (0-14)
[2017-06-28 20:53] LABS: Troponin I 0.03 ng/mL (<0.04)
[2017-06-28] MEDS ORDERED: Naloxone* 0.4 MG/ML 1 ML VIAL IV PUSH ONE (21:07)
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
[2017-06-28] MEDS ORDERED: Iohexol 350* (CONTRAST) 500 ML MDV IV ONE (21:26)
[2017-06-29] MEDS ORDERED: Albuterol 2.5 MG/3 ML NEB.SOL* (0.083%) INH PRN (02:03)
[2017-06-29] MEDS ORDERED: Acetaminophen TAB* 325 MG PO PRN (02:03)
[2017-06-29] MEDS ORDERED: Nicotine Inhaler* 10 MG AMP INH PRN (02:04)
[2017-06-29] MEDS ORDERED: NS 0.9% 50 ML* 50 ML ONE (02:08)
[2017-06-29] MEDS ORDERED: cefTRIAXone(*) 1 GM ADVAN/BAG ONE (02:08)
[2017-06-29] MEDS: cefTRIAXone VIAL(*) 1,000 MG in NS 0.9% 50 ML* 50 ML IVPB SCH (02:11)
[2017-06-29] MEDS ORDERED: NS 0.9% 1000 ML* 1,000 ML IV SCH (02:15)
[2017-06-29] MEDS ORDERED: Azithromycin IV(*) 500 MG in NS 0.9% 250 ML* 250 ML IVPB SCH (02:30)
[2017-06-29] MEDS: NS 0.9% 1000 ML* 1,000 ML IV SCH ×3 (03:42→17:30)
[2017-06-29] MEDS ORDERED: Mouth Piece, Nicotine* 1 EACH CARTRIDGE INH ONE (04:00)
[2017-06-29] MEDS: Azithromycin IV(*) 500 MG in NS 0.9% 250 ML* 250 ML IVPB SCH (05:40)
[2017-06-29] MEDS: Omeprazole CAP* 20 MG PO SCH (05:43)
[2017-06-29] MEDS: Docusate CAP* 100 MG PO SCH ×2 (07:57→20:03)
--- NOTE | 2017-06-29 08:22 | RAD ---
INDICATION: Tachycardia. Breast cancer with liver and spine metastasis. Assess for PE. COMPARISON: June 28, 2017 chest radiograph and June 04, 2017 CT. TECHNIQUE: Multidetector CT images were obtained from the lung apices to the upper abdomen with 84 mL Omnipaque 350 IV contrast. Pulmonary angiogram protocol. Multiplanar reformation including with maximum intensity projection. REPORT: Patchy airspace consolidation at the RIGHT mid to upper lung zone and minimal consolidation at the apex of the LEFT lung. No suspicious focal pulmonary lesion. Negative for pleural effusion or pneumothorax. Visualized mediastinal and axillary lymph nodes are upper normal in size measuring less than 1 cm short axis. Cardiomegaly. Negative for pericardial effusion. Normal diameter thoracic aorta. No filling defects are identified from the main to the subsegmental pulmonary arteries to indicate presence of a pulmonary embolism. Unchanged hypodense although denser than water 0.8 cm lesion at the dome of the RIGHT anterior hepatic segment. Chronic fracture of the RIGHT 10th rib posterolateral noted with callus formation. No suspicious focal osseous lesions evident. IMPRESSION: 1. No evidence for pulmonary embolism. 2. Airspace consolidation most consistent with pneumonia most prominent at the RIGHT mid to upper lung zone. Negative for associated pleural effusions. 3. Unchanged hypodense although denser than water 0.8 cm lesion at the dome of the RIGHT anterior hepatic segment.
[2017-06-29 08:27] LABS: Hematocrit 36 % (35-47); Mean Corpuscular HGB Conc 33 g/dl (31-36); Mean Corpuscular Hemoglobin 30 pg (27-31); Mean Corpuscular Volume 92 fL (80-97); Mean Platelet Volume 8 um3 (7.4-10.4); Red Blood Count 3.95 10^6/ul (4.0-5.4); Red Cell Distribution Width 19 % (10.5-15); White Blood Count 8.8 10^3/ul (3.5-10.8)
[2017-06-29 08:28] LABS: Add Diff/Slide Review? Manual Diff Added; Comments Flag Yes
--- NOTE | 2017-06-29 08:30 | HP ---
H&P (Free Text) History and Physical: PCP: Winnie Richardson MD Oncology:Katy Cordova MD Date/Time: 06/29/2017 0100 CC: SOB & fatigue HPI: Mrs Guevara is a 41YO female HX metastatic breast CA, ovarian vein thrombosis, ? accidental narcotic OD who presents reporting SOB associated with cough, congestion, malaise, and fatigue worsening over the past 2 days when she was started on Lunesta which was initially thought to be causing an adverse reaction. However after an adequate period of ED observation she was not improving and further work revealed PMedHx breast CA metastatic to spine & liver ovarian vein thrombosis chronic pain depression anxiety night terrors insomnia constipation migraines tobacco use disorder Ambulatory Orders Nursing to reconcile. Ondansetron TAB* [Zofran 4 MG Tab*] 4 mg PO Q4HR PRN 10/02/16 SUMAtriptan TAB* [Imitrex TAB*] 50 mg PO TID PRN #0 tab 10/05/16 ALPRAZolam TAB* [Xanax TAB*] 1 - 2 mg PO QID PRN 02/21/17 Brexpiprazole [Rexulti] 2 mg PO QPM 02/21/17 Cholecalciferol [Vitamin D3 Super Strength] 2,000 unit PO BID 02/21/17 Cyclobenzaprine TAB* [Flexeril 10 MG TAB*] 10 mg PO DAILY 02/21/17 Escitalopram (NF) [Lexapro 20 mg (NF)] 40 mg PO DAILY 02/21/17 Fentanyl [Duragesic] 100 mcg TOPICAL Q48HR PRN 02/21/17 Gabapentin CAP(*) [Neurontin 100 mg CAP(*)] 200 mg PO Q8HR PRN 02/21/17 Ketoconazole 2 % CREAM (NF) [Nizoral 2% CREAM (NF)] 1 applic TOPICAL BID PRN 10/05 Oxymorphone ER (NF) [Opana ER (NF)] 30 mg PO Q12H PRN 02/21/17 Zolpidem TAB* [Ambien*] 10 mg PO BEDTIME PRN 02/21/17 oxyCODONE TAB* [Roxycodone TAB 5 mg*] 5 - 10 mg PO .Q4-6H PRN MDD 60mg 02/21/17 traZODone TAB* [Desyrel TAB*] 400 mg PO BEDTIME PRN 02/21/17 Mirtazapine TAB* [Remeron TAB*] 45 mg PO BEDTIME PRN 03/02/17 Rivaroxaban TAB(*) [Xarelto 20 mg] 20 mg PO QPM 03/02/17 OLANzapine TAB* [Zyprexa 10 MG TAB*] 10 mg PO BEDTIME 30 Days tab 03/09/17 Levofloxacin TAB* [Levaquin TAB*] 500 mg PO DAILY #7 tab 03/28/17 Amoxicillin/Clavulanate TAB* [Augmentin TAB 875*] 875 mg PO BID #20 tab Allergies Venlafaxine [From Effexor] Allergy (Severe, Verified 04/30/17 01:25) Hives Prochlorperazine [From Compazine] Allergy (Unknown, Verified 04/30/17 01:25) See Comment extrapyramidal symptoms, TARDIVE DYSKINESIA Promethazine [From Phenergan] Allergy (Unknown, Verified 04/30/17 01:25) See Comment extrapyramidal symptoms Adhesive Tape [Tegaderm Dressing] Allergy (Verified 04/30/17 01:25) skin break down PSurgHx appendectomy x2 back surgery x3 SocHx: FamHx: ROS: as above, otherwise reviewed and all were negative vitals: Vital Signs Temp 36.5 C 06/29/17 03:27 Pulse 73 06/29/17 03:27 Resp 18 06/29/17 03:27 BP 125/70 06/29/17 03:27 Pulse Ox 95 06/29/17 03:27 Intake & Output 06/28/17 06/28/17 06/29/17 11:59 23:59 11:59 Intake Total 2740 Balance 2740 Weight 108.862 kg 113.398 kg Intake: IV Fluids 2300 ABX - AZITHROMYCIN 250 NS (0.9%) 2000 Oral 440 Other: Estimated Void Large # Bowel Movements 0 # Voids 1 Constitutional: NAD, normally developed, morbidly obese white female HEENM: atraumatic; sclera/conjunctiva: anicteric/clear; hearing: clinically intact; oropharynx: clear, mucosa moist Neck: soft tissue: non-tender; thyroid: normal Pulmonary: diminished bilaterally, fair aeration, no accessory muscle use CV: RR/RR, normal S1S2, no carotid bruit, no jugular venous distention, 2+ B DP/ PT, no edema Abdominal: soft, non-distended, non-tender, no rebound/guarding/rigidity, normoactive bowel sounds, no hepatosplenomegaly or masses, no costovertebral angle tenderness Integumental: normal appearance and texture of exposed skin Psychiatric orientation: AA&O to PPS affect: calm mood: cooperative eye contact: fair content: reliable responses: mildly slowed insight: fair Testing: Lab Results 06/28/17 06/28/17 06/28/17 Range/Units 19:16 19:16 19:16 WBC 14.8 H (3.5-10.8) 10^3/ul RBC 4.62 (4.0-5.4) 10^6/ul Hgb 13.8 (12.0-16.0) g/dl Hct 42 (35-47) % MCV 91 (80-97) fL MCH 30 (27-31) pg MCHC 33 (31-36) g/dl RDW 19 H (10.5-15) % Plt Count 296 (150-450) 10^3/ul MPV 8 (7.4-10.4) um3 Neut % (Auto) 80.6 (38-83) % Lymph % (Auto) 12.8 L (25-47) % [place] % (Auto) 5.1 (1-9) % Eos % (Auto) 0.6 (0-6) % Baso % (Auto) 0.9 (0-2) % Absolute Neuts (auto) 11.9 H (1.5-7.7) 10^3/ul Absolute Lymphs (auto) 1.9 (1.0-4.8) 10^3/ul Absolute Monos (auto) 0.8 (0-0.8) 10^3/ul Absolute Eos (auto) 0.1 (0-0.6) 10^3/ul Absolute Basos (auto) 0.1 (0-0.2) 10^3/ul Absolute Nucleated RBC 0.04 10^3/ul Nucleated RBC % 0.3 ESR 53 H (0-14) mm/Hr Sodium 136 (133-145) mmol/L Potassium 4.0 (3.5-5.0) mmol/L Chloride 96 L (101-111) mmol/L Carbon Dioxide 35 H (22-32) mmol/L Anion Gap 5 (2-11) mmol/L BUN 8 (6-24) mg/dL Creatinine 0.74 (0.51-0.95) mg/dL Est GFR ( Amer) 112.4 (>60) Est GFR (Non-Af Amer) 87.4 (>60) BUN/Creatinine Ratio 10.8 (8-20) Glucose 115 H (70-100) mg/dL Lactic Acid 1.9 (0.5-2.0) mmol/L Calcium 9.1 (8.6-10.3) mg/dL Total Bilirubin 0.30 (0.2-1.0) mg/dL Direct Bilirubin 0.10 (0.03-0.18) mg/dL Indirect Bilirubin 0.2 L (0.3-1.0) mg/dL AST 10 L (13-39) U/L ALT 12 (7-52) U/L Alkaline Phosphatase 83 (34-104) U/L Troponin I 0.03 (<0.04) ng/mL C-Reactive Protein 48.48 H (< 5.00) mg/L B-Natriuretic Peptide ( - 100) pg/mL Total Protein 7.0 (6.4-8.9) g/dL Albumin 3.6 (3.2-5.2) g/dL Globulin 3.4 (2-4) g/dL Albumin/Globulin Ratio 1.1 (1-3) Urine Color Urine Appearance Urine pH (5-9) Ur Specific [place] (1.010-1.030) Urine Protein (Negative) Urine Ketones (Negative) Urine Blood (Negative) Urine Nitrate (Negative) Urine Bilirubin (Negative) Urine Urobilinogen (Negative) Ur Leukocyte Esterase (Negative) Urine WBC (Auto) (Absent) Urine RBC (Auto) (Absent) Ur Squamous Epith Cells (Absent) Amorphous Crystals (Absent) Urine Bacteria (Absent) Urine Glucose (Negative) Influenza A (Rapid) (Negative) Influenza B (Rapid) (Negative) 06/28/17 06/28/17 06/29/17 Range/Units 19:16 19:34 02:38 WBC (3.5-10.8) 10^3/ul RBC (4.0-5.4) 10^6/ul Hgb (12.0-16.0) g/dl Hct (35-47) % MCV (80-97) fL MCH (27-31) pg MCHC (31-36) g/dl RDW (10.5-15) % Plt Count (150-450) 10^3/ul MPV (7.4-10.4) um3 Neut % (Auto) (38-83) % Lymph % (Auto) (25-47) % [place] % (Auto) (1-9) % Eos % (Auto) (0-6) % Baso % (Auto) (0-2) % Absolute Neuts (auto) (1.5-7.7) 10^3/ul Absolute Lymphs (auto) (1.0-4.8) 10^3/ul Absolute Monos (auto) (0-0.8) 10^3/ul Absolute Eos (auto) (0-0.6) 10^3/ul Absolute Basos (auto) (0-0.2) 10^3/ul Absolute Nucleated RBC 10^3/ul Nucleated RBC % ESR (0-14) mm/Hr Sodium (133-145) mmol/L Potassium (3.5-5.0) mmol/L Chloride (101-111) mmol/L Carbon Dioxide (22-32) mmol/L Anion Gap (2-11) mmol/L BUN (6-24) mg/dL Creatinine (0.51-0.95) mg/dL Est GFR ( Amer) (>60) Est GFR (Non-Af Amer) (>60) BUN/Creatinine Ratio (8-20) Glucose (70-100) mg/dL Lactic Acid (0.5-2.0) mmol/L Calcium (8.6-10.3) mg/dL Total Bilirubin (0.2-1.0) mg/dL Direct Bilirubin (0.03-0.18) mg/dL Indirect Bilirubin (0.3-1.0) mg/dL AST (13-39) U/L ALT (7-52) U/L Alkaline Phosphatase (34-104) U/L Troponin I (<0.04) ng/mL C-Reactive Protein (< 5.00) mg/L B-Natriuretic Peptide 241 H ( - 100) pg/mL Total Protein (6.4-8.9) g/dL Albumin (3.2-5.2) g/dL Globulin (2-4) g/dL Albumin/Globulin Ratio (1-3) Urine Color Yellow Urine Appearance Clear Urine pH 6.0 (5-9) Ur Specific [place] 1.005 L (1.010-1.030) Urine Protein Negative (Negative) Urine Ketones Negative (Negative) Urine Blood Negative (Negative) Urine Nitrate Negative (Negative) Urine Bilirubin Negative (Negative) Urine Urobilinogen Negative (Negative) Ur Leukocyte Esterase Trace H (Negative) Urine WBC (Auto) Trace(0-5/hpf) (Absent) Urine RBC (Auto) Absent (Absent) Ur Squamous Epith Cells Present H (Absent) Amorphous Crystals Present H (Absent) Urine Bacteria Absent (Absent) Urine Glucose Negative (Negative) Influenza A (Rapid) Negative (Negative) Influenza B (Rapid) Negative (Negative) ECG, personally reviewed: sinus tachycardia rate 100, no ischemia CXR, personally reviewed: IMPRESSION: CARDIOMEGALY WITH INTERSTITIAL EDEMA. CTA chest, personally reviewed: negative for PE; There are alveolar infiltrates in the right lung more pronounced in the upper lobe compatible with non- specific bronchopneumonia. Impression: 41F HX metastatic breast CA presents with R-sided pneumonoia DIAGNOSIS & PLAN Primary R-sided pneumonoia : IV azithromycin & ceftriaxone : IVFs : blood & sputum CXs : supplemenal oxygen : check urine S pneumo antigen : supportive care Secondary breast CA metastatic to spine & liver : continue management per oncology HX ovarian vein thrombosis : no acute issues : continue rivaroxaban once reconciled anxiety : continue alprazolam migraines : hold sumatriptan Admission Rational: inpatient for pneumonia requiring IVFs & IV ABX; inappropriate for outpatient setting DVTp: rivaroxaban once reconciled Code Status: full HCP: Father, Rafael
[2017-06-29 08:44] LABS: BUN/Creatinine Ratio 13.1 (8-20); Calcium 8.3 mg/dL (8.6-10.3); EGFR African American 140.4 (>60); EGFR Non-African American 109.2 (>60)
[2017-06-29 09:29] LABS: Eosinophils % 1 % (0-6); Neutrophil % 62 % (38-83)
[2017-06-29 09:30] LABS: Add Path Review? YES; Polychromasia 1+
[2017-06-29] MEDS ORDERED: fentaNYL PATCHs 100 MCG/HR TRANSDERM PRN (12:29)
[2017-06-29] MEDS ORDERED: fentaNYL PATCHs 100 MCG/HR TRANSDERM SCH (13:00)
[2017-06-29] MEDS: Erythromycin OPTH OINT* APPLIC OINT BOTH EYES SCH ×2 (14:44→19:59)
[2017-06-29] MEDS: Rivaroxaban TAB(*) 20 MG TAB PO SCH (17:52)
[2017-06-29] MEDS: oxyCODONE TAB* 5 MG TAB PO PRN (19:59)
[2017-06-29] MEDS: fentaNYL Patch Check Q Shift 1 NOTE SCH (20:05)
[2017-06-29] MEDS: Ondansetron INJ* 2 MG/ML VIAL IV PRN (20:49)
[2017-06-29] MEDS: Zolpidem TAB* 10 MG PO PRN (22:09)
[2017-06-30] MEDS: cefTRIAXone VIAL(*) 1,000 MG in NS 0.9% 50 ML* 50 ML IVPB SCH (02:52)
[2017-06-30] MEDS: oxyCODONE TAB* 5 MG TAB PO PRN ×5 (03:00→23:53)
[2017-06-30] MEDS: Azithromycin IV(*) 500 MG in NS 0.9% 250 ML* 250 ML IVPB SCH (04:55)
[2017-06-30] MEDS: Omeprazole CAP* 20 MG PO SCH (04:55)
[2017-06-30 05:55] LABS: Hematocrit 38 % (35-47); Hemoglobin 12.3 g/dl (12.0-16.0); Mean Corpuscular HGB Conc 32 g/dl (31-36); Mean Corpuscular Hemoglobin 30 pg (27-31); Mean Corpuscular Volume 92 fL (80-97); Mean Platelet Volume 7 um3 (7.4-10.4); Red Blood Count 4.14 10^6/ul (4.0-5.4); Red Cell Distribution Width 18 % (10.5-15); White Blood Count 8.5 10^3/ul (3.5-10.8)
[2017-06-30 06:12] LABS: BUN/Creatinine Ratio 14.1 (8-20); Calcium 8.7 mg/dL (8.6-10.3); EGFR African American 132.9 (>60); EGFR Non-African American 103.3 (>60); Potassium 3.7 mmol/L (3.5-5.0)
[2017-06-30] MEDS: fentaNYL Patch Check Q Shift 1 NOTE SCH ×2 (07:19→18:37)
[2017-06-30] MEDS: NS 0.9% 1000 ML* 1,000 ML IV SCH ×2 (07:57→20:02)
[2017-06-30] MEDS: Docusate CAP* 100 MG PO SCH ×2 (09:42→20:48)
[2017-06-30] MEDS: Ondansetron INJ* 2 MG/ML VIAL IV PRN ×3 (09:45→22:20)
[2017-06-30] MEDS ORDERED: fentaNYL PATCHs 100 MCG/HR TRANSDERM SCH (10:00)
[2017-06-30] MEDS: CMCS - Escitalopram (NF) 10 MG TAB PO SCH (10:13)
[2017-06-30] MEDS: Erythromycin OPTH OINT* APPLIC OINT BOTH EYES SCH ×3 (10:13→20:02)
[2017-06-30] MEDS: Loperamide CAP* 2 MG PO PRN ×3 (10:45→16:27)
[2017-06-30] MEDS ORDERED: oxyCODONE TAB* 5 MG TAB ONE (16:24)
[2017-06-30] MEDS: Rivaroxaban TAB(*) 20 MG TAB PO SCH (16:27)
[2017-06-30] MEDS: Clotrimazole TROCHE* 10 MG TROCHE PO SCH ×2 (16:29→20:02)
[2017-06-30] MEDS: Zolpidem TAB* 10 MG PO PRN (20:02)
[2017-07-01] MEDS ORDERED: cefTRIAXone VIAL(*) 1,000 MG in D5W 50 ML BAG* 50 ML IVPB SCH (02:00)
[2017-07-01] MEDS: Ondansetron INJ* 2 MG/ML VIAL IV PRN (02:00)
[2017-07-01] MEDS: Loperamide CAP* 2 MG PO PRN ×2 (02:04→11:17)
[2017-07-01] MEDS: oxyCODONE TAB* 5 MG TAB PO PRN ×2 (03:56→08:14)
[2017-07-01] MEDS: Azithromycin IV(*) 500 MG in NS 0.9% 250 ML* 250 ML IVPB SCH (03:56)
[2017-07-01] MEDS: Omeprazole CAP* 20 MG PO SCH (05:55)
[2017-07-01] MEDS: fentaNYL Patch Check Q Shift 1 NOTE SCH (06:50)
[2017-07-01 07:47] VITALS: BP 139/70
[2017-07-01] MEDS: Docusate CAP* 100 MG PO SCH (08:14)
[2017-07-01] MEDS: Erythromycin OPTH OINT* APPLIC OINT BOTH EYES SCH (08:15)
[2017-07-01] MEDS: Clotrimazole TROCHE* 10 MG TROCHE PO SCH (08:15)
[2017-07-01] MEDS: CMCS - Escitalopram (NF) 10 MG TAB PO SCH (08:15)
[2017-07-01] MEDS: NS 0.9% 1000 ML* 1,000 ML IV SCH (09:57)
[2017-07-01] MEDS ORDERED: Nicotine PATCH 14 MG/24 HR* PATCH TRANSDERM SCH (12:00)
--- NOTE | 2017-07-01 17:24 | DS ---
- Discharge Summary Admission Date: 06/29/17 Discharge Date: 07/01/17 Discharge Diagnosis: 1. Pneumonia: stable to improved and will d/c home on Levaquin 2. Lethargy: multi-factorial including acute infection and narcotic use, improved and will d/c off some of her narcotics 3. Chronic Pain: managed by Dr. Livingston, though has been very stable and goal of home off duplicate therapy 4. Metastatic Breast Cancer: no change in plan of care, will f/u with Dr. Cordova later this week for close monitoring Discharge Medications: 1. Clotrimazole Iron 10 mg PO QID x7 days 2. Erythromcyin ointment 1 both eyes TID 3. Acetaminophen 650 mg PO q6hrs PRN pain 4. Loperamide 2 mg PO PRN diarrhea, mdd: 8 tabs/day 5. Nicotine patch 14 mg/24 hrs transdermal qday 6. Docusate 200 mg PO daily PRN constipation 7. Ondansetron 4 mg PO q4hrs PRN nausea 8. Sumatriptan 50 mg PO TID PRN VÁZQUEZ 9. Cholecalciferol 2,000 units PO BID 10. Alprazolam 1-2mg PO QID PRN anxiety 11. Zolpidem 10 mg PO qHS PRN sleep 12. Escitalopram 40 mg PO daily 13. Brexpiprazole 2 mg PO qHS 14. Fentanyl 100 mcg PO q48 hrs 15. Rivaroxaban 20 mg PO qHS 16. Levaquin 500 mg PO daily 17. Oxycodone 5-10 mg PO q4hrs PRN pain *STOP Trazodone, gabapentin, Flexeril, opana, and remeron Hospital Course: Please see admission note for full H&P, however briefly Ms. Guevara is well known to our service due to her unfortunate diagnosis of metastatic breast cancer, currently stable on Herceptin therapy. She has a complicated PMH with chronic pain, depression, and a history of overdose which she has adamantly stated was an accident. She presented to the ER following several days of lethargy felt initially to be related to a trial of Lunesta (insomnia despite remeron and ambien), however work-up revealed a right sided pneumonia and she was admitted for IV abx. During admission several of her narcotics were held due to concern for over-sedation. On day 2 of admission she stated she wanted to leave A due to not receiving her pain meds. Today she feels very well, is alert and involved in her care. Her breathing is stable and she has not required additional interventions. As such she will be discharged home on PO abx. and has been instructed to continue to HOLD her additional narcotics pending a follow-up with her pain clinic (Dr. Livingston). At this time it is the feeling of our practice that she has been over medicated and we are concerned for her functional capability with duplicate narcotics. I have counseled both Ms. Guevara and her aunt (proxy) regarding our concerns and recommendation to hold Opana, gabapentin, and flexeril, trazadone, and remeron. She will be discharged with Fentanyl and oxycodone (both of which she already has at home). During admission her pain has been stable. She will follow-up in short order with Dr. Cordova (07/03/17 @ [place] office) for further discussion of plan of care. She has been advised to follow-up with her counselor. She has also been counseled regarding S/S progressive infection and when to call the office, she will go home on PO Levaquin. >40 min spent with >50% face to face counseling
[2017-07-02] MEDS ORDERED: Nicotine Patch Removal NOTE PATCH OFF SCH (21:00)
== END 2017-07-01 12:45 | disposition home or self-care (01) | DRG 139 ==
LOC: ED 15:38 → MED 06-29 01:16
PROVIDERS: ADMIT Hospitalist; ATTEND Internal Medicine Hematology & Oncology
DX: J18.9 Pneumonia, unspecified organism (principal); F33.9 Major depressive disorder, recurrent, unspecified; C50.919 Malignant neoplasm of unspecified site of unspecified female breast; R53.83 Other fatigue; G89.29 Other chronic pain; F17.210 Nicotine dependence, cigarettes, uncomplicated; F41.9 Anxiety disorder, unspecified; K59.00 Constipation, unspecified; B30.9 Viral conjunctivitis, unspecified; T40.2X5A Adverse effect of other opioids, initial encounter; X58.XXXA Exposure to other specified factors, initial encounter; Z86.718 Personal history of other venous thrombosis and embolism; Z79.01 Long term (current) use of anticoagulants; Y92.009 Unspecified place in unspecified non-institutional (private) residence as the place of occurrence of the external cause
CPT/HCPCS: 36415; 71010; 71275; 80048; 80053; 80076; 81003; 81015; 83605; 83880; 84484; 85025; 85060; 85652; 86140; 87086; 87502; 87899; 93005; 99239; A9270-GY; J0456; J0696; J2405; Q9967

== ENCOUNTER 2017-07-09 16:40 | Inpatient (IN) | payer OTHER ==
[2017-07-09] MEDS ORDERED: Acetaminophen TAB* 325 MG PO PRN (16:58)
[2017-07-09] MEDS ORDERED: Docusate CAP* 100 MG PO PRN (16:58)
[2017-07-09] MEDS ORDERED: Ondansetron TAB* 4 MG PO PRN (16:58)
[2017-07-09] MEDS ORDERED: fentaNYL PATCH 75 MCG/HR* 75 MCG TRANSDERM SCH (18:00)
[2017-07-09] MEDS ORDERED: oxyCODONE TAB* 5 MG TAB ONE (18:43)
[2017-07-09] MEDS ORDERED: fentaNYL PATCH 75 MCG/HR* 75 MCG ONE (18:43)
[2017-07-09] MEDS: oxyCODONE TAB* 5 MG TAB PO SCH ×2 (18:46→22:33)
[2017-07-09] MEDS: fentaNYL Patch Check Q Shift 1 NOTE SCH (18:49)
[2017-07-09] MEDS: Clotrimazole TROCHE* 10 MG TROCHE PO SCH ×2 (19:33→22:33)
[2017-07-09] MEDS: Rivaroxaban TAB(*) 20 MG TAB PO SCH (20:21)
[2017-07-10] MEDS: oxyCODONE TAB* 5 MG TAB PO SCH ×6 (01:51→22:01)
[2017-07-10 06:12] LABS: Hematocrit 35 % (35-47); Hemoglobin 11.3 g/dl (12.0-16.0); Mean Corpuscular HGB Conc 32 g/dl (31-36); Mean Corpuscular Hemoglobin 29 pg (27-31); Mean Corpuscular Volume 91 fL (80-97); Mean Platelet Volume 7 um3 (7.4-10.4); Red Blood Count 3.86 10^6/ul (4.0-5.4); Red Cell Distribution Width 18 % (10.5-15); White Blood Count 7.1 10^3/ul (3.5-10.8)
[2017-07-10 06:23] LABS: Albumin 2.9 g/dL (3.2-5.2); BUN/Creatinine Ratio 12.1 (8-20); Calcium 8.5 mg/dL (8.6-10.3); EGFR African American 61.9 (>60); EGFR Non-African American 48.2 (>60); Globulin 2.7 g/dL (2-4); Potassium 3.8 mmol/L (3.5-5.0); Total Bilirubin 0.4 mg/dL (0.2-1.0); Total Protein 5.6 g/dL (6.4-8.9)
[2017-07-10] MEDS: fentaNYL Patch Check Q Shift 1 NOTE SCH ×2 (06:59→18:45)
[2017-07-10] MEDS: Nicotine PATCH 14 MG/24 HR* PATCH TRANSDERM SCH (07:55)
[2017-07-10] MEDS: Clotrimazole TROCHE* 10 MG TROCHE PO SCH ×4 (07:55→22:02)
[2017-07-10] MEDS: Levofloxacin TAB* 500 MG PO SCH (07:55)
[2017-07-10] MEDS: NS 0.9% w/ 20 Meq KCL 1000 ML* 1,000 ML IV SCH ×2 (12:07→21:57)
[2017-07-10] MEDS ORDERED: Gadoteridol* (CONTRAST) 279.3 MG/ML 10 ML IV ONE (15:07)
--- NOTE | 2017-07-10 15:47 | RAD ---
INDICATION: Breast cancer patient reporting confusion, headaches and nausea COMPARISON: Similar MRI of the brain dated March 04, 2017 TECHNIQUE: Sagittal T1, axial T1, T2, susceptibility, FLAIR and diffusion-weighted images were obtained. In addition, axial, sagittal and coronal T1-weighted images were obtained following intravenous injection of mL of ProHance contrast. FINDINGS: The ventricles, cisterns and sulci appear to be within normal limits. There are no suspicious masses, lesions or vasogenic edema in the brain parenchyma. The weston-white matter differentiation is adequately maintained. There are no foci of bright signal on the diffusion-weighted imaging. No other significant focal abnormality or mass effect is seen. There is no evidence for infarct or hemorrhage. The visualized portion of the paranasal sinuses and mastoid air cells appear clear. IMPRESSION: Normal MRI of the brain without evidence of metastases or other acute abnormality.
[2017-07-10] MEDS: Rivaroxaban TAB(*) 20 MG TAB PO SCH (18:19)
[2017-07-10] MEDS ORDERED: Nicotine Patch Removal NOTE PATCH OFF SCH (21:00)
[2017-07-11] MEDS: oxyCODONE TAB* 5 MG TAB PO SCH ×3 (02:40→09:14)
[2017-07-11] MEDS: NS 0.9% w/ 20 Meq KCL 1000 ML* 1,000 ML IV SCH ×2 (05:57→14:22)
[2017-07-11 06:06] LABS: BUN/Creatinine Ratio 14.3 (8-20); Calcium 8.4 mg/dL (8.6-10.3); EGFR African American 81.3 (>60); EGFR Non-African American 63.2 (>60); Potassium 4.3 mmol/L (3.5-5.0)
[2017-07-11] MEDS: fentaNYL Patch Check Q Shift 1 NOTE SCH (07:16)
[2017-07-11] MEDS: Nicotine PATCH 14 MG/24 HR* PATCH TRANSDERM SCH (07:49)
[2017-07-11] MEDS: Levofloxacin TAB* 500 MG PO SCH (07:49)
[2017-07-11] MEDS: Clotrimazole TROCHE* 10 MG TROCHE PO SCH ×3 (07:51→17:09)
[2017-07-11] MEDS ORDERED: oxyCODONE TAB* 5 MG TAB PO PRN (12:13)
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
[2017-07-11] MEDS ORDERED: fentaNYL PATCH 50 MCG/HR TRANSDERM SCH (17:00)
[2017-07-11 17:04] VITALS: BP 134/74
[2017-07-11] MEDS: Rivaroxaban TAB(*) 20 MG TAB PO SCH (17:09)
--- NOTE | 2017-07-11 17:30 | DS ---
- Discharge Summary Admission Date:07/09/17 Discharge Date: 07/11/17 Discharge Diagnosis: 1. Lethargy: secondary to over sedation, improved with mediations held 2. Chronic pain: stable to improved with decreased doses of narcotics, question of hyperanalgesia 3. Depression: long standing and plan in place for evaluation with [facility] 4. Breast Cancer: stable, continue Herceptin/AI/Lupron Discharge Medications: 1. Anastrazole 1 mg PO daily 2. Fentanyl 50 mcg transdermally q72hrs 3. Oxycodone 5 mg PO q4hrs PRN pain 4. Ondansetron 4 mg PO q4hrs PRN nausea 5. Cholecalciferol 2,000 u PO BID 6. Rivaroxaban 20 mg PO daily 7. Acetaminophen 650 mg PO q6hrs PRN pain 8. Nicotine patch 14 mcg qday 9. Docusate sodium 200 mg PO BID PRN constipation Hospital Course: Please see admission note for full H&P, however briefly, Ms. Ryan is well known to our service due to her unfortunate diagnosis of metastatic hormone receptor, HER2 positive breast cancer. She has most recently been very stable on Herceptin/AI/Lupron. Ms. Ryan has a significant past medical history of chronic pain and mixed depression and anxiety. She presented to the office on 07/09 with significant lethargy and was admitted due to concern for over- sedation from analgesia. She was admitted earlier this month with similar concerns, however at that time she was also found to have a pneumonia and there was a question of aspiration. On this admission her chest x-ray was improved, though she completed her PO abx. while inpatient. On admission her narcotics were considerably reduced, her hypnotics were held, and her benzodiazepines were discontinued. On 07/10 she remained lethargic and an MRI of the brain was ordered, this was negative for metastatic disease. Psychiatry was consulted due to concern for poorly managed depression and she was seen by Dr. Bautista on . In consultation it was agreed she likely had been over-medicated with question of poor follow-up, however she was not felt to need inpatient management. Today, 07/11, she is more alert and involved in the plan of care. Her pain has been reasonably managed stating 5-6/10 as compared to 8/10 constantly on her last admission. At this time she is stable and safe for discharge home. Ms. Ryan will be discharged home with the following agreements: her Aunt Mau will dispose of all narcotics, hypnotics, and benzodiazepines in the home ; she will start a narcotic taper and will be d/c'd on a reduced dose of Fentanyl (down to 50 mcg, from 75 mcg on admission, from 100 mcg at home) and oxycodone (down to 5 mg q4hrs from 10 mg q4hrs PRN); she will have [facility] services assist with medications and a lock box will be used; she will follow-up with [facility] (scheduled by MANDO Gan for 07/18 @ 13:30); all controlled substances will now by managed by her oncology team (Dr. Cordova and Bhakti, [facility] - Dr. Livingston is in agreement); and she will agree to close follow-up with our team (planned OV with the expert medical writer 07/10 @ [id number]). Plan of care was reviewed at length with both the patient and her Aunt. >60 min. with >50% face to face counseling.
== END 2017-07-11 17:30 | disposition home or self-care (01) | DRG 812 ==
LOC: MED 17:41
PROVIDERS: ADMIT Internal Medicine Hematology & Oncology; ATTEND Internal Medicine Hematology & Oncology
DX: T42.4X1A Poisoning by benzodiazepines, accidental (unintentional), initial encounter (principal); C50.919 Malignant neoplasm of unspecified site of unspecified female breast; Z68.41 Body mass index [BMI] 40.0-44.9, adult; R53.83 Other fatigue; G89.29 Other chronic pain; F32.9 Major depressive disorder, single episode, unspecified; F41.9 Anxiety disorder, unspecified; F43.10 Post-traumatic stress disorder, unspecified; K58.9 Irritable bowel syndrome, unspecified; E66.9 Obesity, unspecified; M54.9 Dorsalgia, unspecified; J45.909 Unspecified asthma, uncomplicated; G43.909 Migraine, unspecified, not intractable, without status migrainosus; F17.210 Nicotine dependence, cigarettes, uncomplicated; Z80.8 Family history of malignant neoplasm of other organs or systems; Z91.81 History of falling; Z88.8 Allergy status to other drugs, medicaments and biological substances; Y92.9 Unspecified place or not applicable; Z91.410 Personal history of adult physical and sexual abuse; Z79.01 Long term (current) use of anticoagulants; Z17.0 Estrogen receptor positive status [ER+]
CPT/HCPCS: 36415; 70553; 80048; 80053; 82140; 85025; 99220; A9270-GY; A9579; J1642

== ENCOUNTER → 2017-08-02 13:30 | Emergency (ER) | payer OTHER ==
[~2017-08-02 13:30] MED LIST changes: -Buffered Lidocaine 1% SYR 3ML* 3 ML/SYR SYRINGE INTRADERM ONE; +Iohexol 350* (CONTRAST) 500 ML MDV IV ONE; -Lidocaine 1% INJ* 10 MG/ML 30 ML SDV ONE; -Lidocaine 2% MPF* 2 ML VIAL ONE; -Midazolam* 1 MG/ML 5 ML VIAL (5 MG) ONE; +Morphine INJ* 4 MG/ML 1 ML CARPUJECT IV ONE; +Ondansetron INJ* 2 MG/ML VIAL IV ONE; -Propofol* 10 MG/ML 20 ML BTL IV PUSH ONE; -ceFAZolin 2 GM PREMIX (*) 2 GM/50 ML BAG IVPB ONE; -fentaNYL* 50 MCG/ML 2 ML VIAL (100 MCG VIAL) ONE
[2017-08-02 15:19] LABS: ABS Basophils 0.1 10^3/ul (0-0.2); ABS Eosinophils 0.2 10^3/ul (0-0.6); ABS Lymphocytes 2.4 10^3/ul (1.0-4.8); ABS Monocytes 0.6 10^3/ul (0-0.8); ABS Neutrophils 7.8 10^3/ul (1.5-7.7); ABS Nucleated RBC 0 10^3/ul; Hematocrit 44 % (35-47); Hemoglobin 14.3 g/dl (12.0-16.0); Lymphocyte % 21.5 % (25-47); Mean Corpuscular HGB Conc 33 g/dl (31-36); Mean Corpuscular Hemoglobin 29 pg (27-31); Mean Corpuscular Volume 87 fL (80-97); Mean Platelet Volume 7 um3 (7.4-10.4); Nucleated Red Blood Cells % 0; Platelet Count 259 10^3/ul (150-450); Red Blood Count 4.98 10^6/ul (4.0-5.4); Red Cell Distribution Width 18 % (10.5-15); White Blood Count 11.1 10^3/ul (3.5-10.8)
[2017-08-02 15:36] LABS: EGFR Non-African American 83.5 (>60)
--- NOTE | 2017-08-02 15:47 | RAD ---
INDICATION: Shortness of breath, chest pain and back pain. COMPARISON: Most recent comparison chest x-rays dated July 09, 2017 TECHNIQUE: Single AP portable view of the chest was obtained. FINDINGS: Image quality is compromised due to the relative inferiority of a portable chest x-ray. Again seen is a left subclavian vein Mediport with the tip terminating in the superior vena cava. The heart and mediastinum exhibit normal size and contour. The lungs are grossly clear. There is no evidence of a large pleural effusion. Visualized bones are normal for the patient's age. IMPRESSION: No radiographic evidence for acute cardiopulmonary abnormality on this portable chest x-ray.
--- NOTE | 2017-08-02 16:20 | RAD ---
INDICATION: ] Right upper quadrant tenderness COMPARISON: CT chest/abdomen/pelvis June 04, 2017 TECHNIQUE: Longitudinal and transverse scans of the right upper quadrant were obtained. Doppler interrogation of the hepatic and portal venous system was performed. The examination is mildly limited due to bowel gas and body habitus FINDINGS: Liver: The liver is normal in size and echogenicity. There are no focal masses identified on today's sonogram although CT is demonstrated a subcentimeter right hepatic lesion. The liver measures 14.7 cm in cephalocaudal dimension. Vessels: There is normal hepatic and portal venous flow. Bile ducts: There is no evidence of intrahepatic or extrahepatic ductal dilatation. The common duct measures 0.3 cm. Gallbladder: There are multiple gallstones. There is no thickening gallbladder wall or pericholecystic fluid. The patient was tender over the gallbladder. Pancreas: Not well evaluated due to bowel gas Right kidney: The right kidney is normal in size and echogenicity. There are no masses or calculi. There is no evidence of hydronephrosis. The right kidney measures 11.9 x 4.4 x 6.4 cm. IVC and aorta: The aorta and superior vena cava appear normal. Fluid: There is no ascites. Other: None. IMPRESSION: MILDLY LIMITED EXAMINATION DUE TO BODY HABITUS AND BOWEL GAS. CHOLELITHIASIS WITH POSITIVE SONOGRAPHIC MONCADA'S SIGN.
--- NOTE | 2017-08-02 17:00 | RAD ---
INDICATION: Chest pain. Short of breath. Cholelithiasis. Evaluate for pulmonary embolus. COMPARISON: Gallbladder sonogram same date; chest x-ray same date; CTA chest June 28, 2017 TECHNIQUE: Axial source images were obtained from the thoracic inlet to the hemidiaphragms following administration of [address] angiographic technique was utilized. Coronal and sagittal reconstructed images were acquired. CHEST FINDINGS: Neck/thyroid: The visualized neck to include the thyroid appear normal. Chest wall: There are no acute abnormalities of the bony thorax or chest wall. There is a left-sided [id number] catheter There is no supraclavicular, infraclavicular, or axillary lymphadenopathy. Lungs : There are no pulmonary parenchymal masses or infiltrates. The pulmonary interstitium appears normal. There are no endobronchial lesions. Cardiomediastinal structures: There is no CT evidence of acute pulmonary embolic disease. The heart is normal in size. There is no pericardial effusion. There is no evidence of aortic aneurysm or dissection. There is no mediastinal or hilar adenopathy. The esophagus appears normal. Pleura : There are no pleural-based masses or effusions. Other: Limited views the upper abdomen show noncalcified cholelithiasis. IMPRESSION: NO CT EVIDENCE OF ACUTE PULMONARY EMBOLIC DISEASE. LUNGS CLEAR . CHOLELITHIASIS.
[2017-08-02 17:39] VITALS: BP 128/93
--- NOTE | 2017-08-09 15:48 | ED ---
Riya Hook Nilda, scribed for Parish Chew MD on 08/02/17 at 1520 . Back Pain - HPI Summary HPI Summary: This patient is a 41 year old F presenting to [facility] with a chief complaint of constant severe back pain radiating to neck since 0100 this morning. The patient rates the pain 9/10 in severity. Symptoms aggravated by lying down, and alleviated by upright position. Patient reports palpitations, SOB, dyspnea, chronic pain in left arm, fever, chills, and dysuria (burning). Patient denies cough, hemoptysis, and hematuria. Medications include Zorolto, Fentanyl patch, and Oxycodone. PMHx includes clot in right flank, and Breast CA stage 4 with metastases to liver and spine. No PMHx of PE or gallbladder issues. - History of Current Complaint Chief Complaint: EDBackInjuryPain Stated Complaint: BACK PIAN, CHEST PAIN Time Seen by Provider: 08/02/17 14:31 Hx Obtained From: Patient Hx Last Menstrual Period: 05/25/16 Onset/Duration: Sudden Onset, Lasting Hours, Still Present Onset/Duration: Started Hours Ago, Still Present Timing: Constant Back Pain Location: Radiates To - neck Severity Currently: Severe Pain Intensity: 9 Pain Scale Used: 0-10 Numeric Aggravating Symptom(s): Other - lying down Alleviating Symptom(s): Position - upright Associated Signs And Symptoms: Positive: Other - palpitations, SOB, dyspnea, chronic pain in left arm, fever, chills, and dysuria (burning). Patient denies cough, hemoptysis, and hematuria. - Allergies/Home Medications Allergies/Adverse Reactions: Allergies Allergy/AdvReac Type Severity Reaction Status Date / Time Venlafaxine [From Effexor] Allergy Severe Hives Verified 04/30/17 01:25 Prochlorperazine Allergy Unknown See Comment Verified 04/30/17 01:25 [From Compazine] Promethazine [From Phenergan] Allergy Unknown See Comment Verified 04/30/17 01: 25 Adhesive Tape Allergy skin break Verified 04/30/17 01:25 [Tegaderm Dressing] down PMH/Surg Hx/FS Hx/Imm Hx Endocrine/Hematology History: Denies: Hx Anticoagulant Therapy, Hx Bone Marrow Disease, Hx Diabetes, Hx Sickle Cell Disease, Hx Thyroid Disease, Hx Anemia, Other Endocrine/ Hematological Disorders Cardiovascular History: Reports: Hx Congestive Heart Failure, Hx Deep Vein Thrombosis - Recent ovarian vein thrombosis, Hx Hypercholesterolemia, Other Cardiovascular Problems/Disorders - ARRHYTHMIA Denies: Hx Angina, Hx Cardiomegaly, Hx Coronary Artery Disease, Hx Hypertension, Hx Myocardial Infarction, Hx Pacemaker/ICD, Hx Peripheral Vascular Disease, Hx Rheumatic Fever, Hx Valvular Heart Disease Respiratory History: Reports: Other Respiratory Problems/Disorders - SLEEPS WITH OXYGEN AT NIGHT 2L Denies: Hx Asthma, Hx Chronic Obstructive Pulmonary Disease (COPD), Hx Lung Cancer, Hx Pulmonary Edema, Hx Pulmonary Embolism, Hx Sleep Apnea GI History: Reports: Other GI Disorders - history of ulcerative colitis Denies: Hx Cirrhosis, Hx Crohn's Disease, Hx Gall Bladder Disease, Hx Gastroesophageal Reflux Disease, Hx Gastrointestinal Bleed, Hx Hiatal Hernia, Hx Irritable Bowel, Hx Jaundice, Hx Ulcer, Hx Urosepsis History: Denies: Hx Kidney Infection, Hx Kidney Stones, Hx Renal Disease, Other Problems/Disorders Musculoskeletal History: Reports: Hx Arthritis, Hx Back Problems Denies: Hx Bursitis, Hx Tendonitis, Other Musculoskeletal History Sensory History: Reports: Hx Contacts or Glasses Denies: Hx Cataracts, Hx Glaucoma, Hx Hearing Aid Opthamlomology History: Reports: Hx Contacts or Glasses Denies: Hx Cataracts, Hx Glaucoma Neurological History: Reports: Hx Migraine, Hx Spinal Cord Injury - herniated disc Denies: Hx Dementia, Hx Headaches, Hx Nerve Disease, Hx Seizures, Hx Transient Ischemic Attacks (TIA), Other Neuro Impairments/Disorders Psychiatric History: Reports: Hx Anxiety, Hx Depression, Hx Post Traumatic Stress Disorder, Hx Suicide Attempt - states she has made three attempts; h/o overdose x 2 Denies: Hx Eating Disorder, Hx Panic Disorder, Hx Substance Abuse - Cancer History Cancer Type, Location and Year: breast cancer with metastases to liver, spine Hx Chemotherapy: Yes Hx Radiation Therapy: No - Surgical History Surgery Procedure, Year, and Place: l-spine surgery 3x's. . appendix Hx Anesthesia Reactions: No - Immunization History Date of Tetanus Vaccine: UTD Date of Influenza Vaccine: NO Infectious Disease History: No Infectious Disease History: Denies: Hx Hepatitis, Hx Human Immunodeficiency Virus (HIV), Traveled Outside the [place] in Last 30 Days - Family History Known Family History: Negative: Cardiac Disease, Hypertension - Social History Alcohol Use: None Hx Substance Use: Yes Substance Use Type: Reports: Prescribed Hx Tobacco Use: Yes Smoking Status (MU): Light Every Day Tobacco Smoker Type: Cigarettes Amount Used/How Often: 1/4 PPD, down from PPD Have You Smoked in the Last Year: Yes Review of Systems Positive: Fever, Chills Negative: Erythema Negative: Sore Throat Positive: Palpitations. Negative: Chest Pain Positive: Shortness Of Breath, Other - dyspnea; negative hymoptysis. Negative: Cough Negative: Abdominal Pain, Vomiting, Nausea Positive: burning. Negative: dysuria, hematuria Positive: Other - chronic left arm pain. Negative: Myalgia, Edema Negative: Rash Neurological: Other - negative dizziness All Other Systems Reviewed And Are Negative: Yes Physical Exam - Summary Physical Exam Summary: Constitutional: Well-developed, Well-nourished, Alert. (-) Distressed Skin: Warm, Dry HENT: Normocephalic; Atraumatic Eyes: Conjunctiva normal Neck: Musculoskeletal ROM normal neck. (-) JVD, (-) Stridor, (-) Tracheal deviation Cardio: Rhythm regular, rate normal, Heart sounds normal; Intact distal pulses; The pedal pulses are 2+ and symmetric. Radial pulses are 2+ and symmetric. (-) Murmur Pulmonary/Chest wall: Effort normal. (-) Respiratory distress, (-) Wheezes, (-) Rales Abd: Soft, (-) Tenderness, (-) Distension, (-) Guarding, (-) Rebound Musculoskeletal: (-) Edema, Mild right CVA tenderness Lymph: (-) Cervical adenopathy Neuro: Alert, Oriented x3 Psych: Mood and affect Normal Triage Information Reviewed: Yes Vital Signs On Initial Exam: Initial Vitals Temp Pulse Resp BP Pulse Ox 98.7 F 120 20 146/100 94 08/02/17 13:41 08/02/17 13:41 08/02/17 13:41 08/02/17 13:41 08/02/17 13:41 Vital Signs Reviewed: Yes - [employer] Coma Scale Coma Scale Total: 15 Diagnostics - Vital Signs Vital Signs Temp Pulse Resp BP Pulse Ox 08/02/17 14:25 105 94 08/02/17 14:23 137/86 08/02/17 13:41 98.7 F 120 20 146/100 94 - Laboratory Result Diagrams: 08/02/17 15:10 08/02/17 15:10 Lab Statement: Any lab studies that have been ordered have been reviewed, and results considered in the medical decision making process. - Radiology CXR Radiology Interpretation Completed By: Radiologist - CXR, per radiologist, reveals no radiographic evidence for acute cardiopulmonary abnormality on this portable chest x-ray. Dr. Chew has reviewed this radiology report. - CT CTA chest CT Interpretation Completed By: Radiologist - CTA chest, per radiologist, reveals: NO CT EVIDENCE OF ACUTE PULMONARY EMBOLIC DISEASE. LUNGS CLEAR. CHOLELITHIASIS. Dr. Chew reviewed this report. - EKG 1432 Cardiac Rate: NL EKG Rhythm: Sinus Rhythm - 93 bpm EKG Interpretation: no STEMI, new T-wave inversion v2 v3 - Additional Comments Diagnostic Additional Comments: Gallbladder US, per radiologist, reveals: MILDLY LIMITED EXAMINATION DUE TO BODY HABITUS AND BOWEL GAS. CHOLELITHIASIS WITH POSITIVE SONOGRAPHIC MONCADA'S SIGN. Dr. Chew reviewed this report. Re-Evaluation - Re-Evaluation First Eval Re-Evaluation Time: 17:15 Comment: Pt states 7/10 pain. No significant tenderness. Back Pain Course/Dx - Course Assessment/Plan: This patient is a 41 year old F presenting to [facility] with a chief complaint of constant severe back pain radiating to neck since 0100 this morning. The patient rates the pain 9/10 in severity. Symptoms aggravated by lying down, and alleviated by upright position. Patient reports palpitations, SOB, dyspnea, chronic pain in left arm, fever, chills, and burning with urination. Patient denies cough, hemoptysis, and hematuria. Medications include Zorolto, Fentanyl patch, and Oxycodone. PMHx includes clot in right flank, and Breast CA stage 4 with metastases to liver and spine. No PMHx of PE or gallbladder issues. PSHx chest port. Pending EKG, CXR, CTA Chest, Gallbladder US, and labs. Blood work is without significant abnormalities except elevated WBC (11.1). Gallbladder US, per radiologist, reveals: MILDLY LIMITED EXAMINATION DUE TO BODY HABITUS AND BOWEL GAS. CHOLELITHIASIS WITH POSITIVE SONOGRAPHIC MONCADA'S SIGN. Dr. Chew reviewed this report. CTA chest, per radiologist, reveals: NO CT EVIDENCE OF ACUTE PULMONARY EMBOLIC DISEASE. LUNGS CLEAR. CHOLELITHIASIS. Dr. Chew reviewed this report. An EKG reveals NSR 93 bpm, no stemi new T-wave inversion v2,v3. 1432. CXR, per radiologist, reveals no radiographic evidence for acute cardiopulmonary abnormality on this portable chest x-ray. Dr. Chew has reviewed this radiology report. 1611 Dr. Cordova ( oncology) states pt on pain contract for oxycodone 5 mg q4hrs every 2 weeks and pt is due for refill. Dr. Peraza writing prescription refill. [address] Saenz (surgery) who agrees with plan for outpatient management. In the ED course, the patient was given Zofran, Morphine, and Contrast. Pt is stable and will be D/C with Dx of cholelithiasis. She was advised to follow up with Dr. Saenz (surgery) in 2-3 days and instructed to follow a low fat diet. Pt understands and is agreeable with this plan. - Diagnoses Provider Diagnoses: Cholelithiasis - Provider Notifications Discussed Care Of Patient With: Jill Cordova - Oncology Time Discussed With Above Provider: 16:11 Instructed by Provider To: Other - States pt on pain contract for oxycodone 5 mg q4hrs every 2 weeks and pt is due for refill. Dr. Peraza writing prescription. Discharge - Discharge Plan Condition: Stable Disposition: HOME Patient Education Materials: Gallstones (ED), Low Fat Diet (ED) Referrals: Desiree Saenz MD [Medical Doctor] - 3 Days Additional Instructions: Continue usual pain medication. RETURN TO THE EMERGENCY DEPARTMENT FOR CHANGING OR WORSENING SYMPTOMS. The documentation as recorded by the Riya toro Nilda accurately reflects the service I personally performed and the decisions made by , Parish Chew MD.
== END | disposition home or self-care (01) ==
LOC: ED 13:30
DX: K80.20 Calculus of gallbladder without cholecystitis without obstruction (principal); R00.2 Palpitations; R06.02 Shortness of breath; R06.00 Dyspnea, unspecified; R50.9 Fever, unspecified; R30.0 Dysuria; Z86.79 Personal history of other diseases of the circulatory system; F17.210 Nicotine dependence, cigarettes, uncomplicated
CPT/HCPCS: 36415; 71045; 71275; 76705; 80053; 83605; 84484; 85025; 93005; 96374; 96375; 99283; J1642; J2270; J2405; Q9967

== ENCOUNTER 2017-08-15 09:52 | Day surgery (SDC) | payer OTHER ==
--- NOTE | 2017-08-13 16:11 | HP ---
CC: Dr. Jill Cordova * DATE OF ADMISSION: 08/15/2017. This patient is scheduled for Same Day Surgery admission by Dr. Moraes. DATE OF PREOPERATIVE HISTORY AND PHYSICAL EXAMINATION: Sunday, August 13, 2017. ATTENDING SURGEON: Dr. Darren Moraes * (dictated by Ying Marcum NP). CHIEF COMPLAINT: Gallstones. HISTORY OF PRESENT ILLNESS: The patient is a 41-year-old female referred to Dr. Moraes from the [facility] Emergency Department where she presented on 08/02/2017 with a chief complaint of constant severe back pain. Gallbladder ultrasound revealed gallstones and exam revealed a positive Mcmillan sign. Her white blood cell count was elevated at 11.1, electrolytes and liver function tests all were within normal limits. She denied fever or chills or change in the color of urine or stool. She was discharged from the emergency room with recommendations for a low fat diet and surgical consultation. She has complied with the low fat diet and today denies any back pain, nausea or vomiting. Dr. Moraes has examined the patient and reviewed the findings with her and has recommended laparoscopic cholecystectomy as a same day surgery procedure and has described the nature of the surgical procedure, the relevant risks and benefits, and today I reviewed the expected postoperative care and recovery. The patient has had a chance to ask questions and stated that she understands the information and is satisfied with the answers given to her questions. She will sign surgical consent on the day of surgery. PAST MEDICAL HISTORY: Significant for stage 4 breast cancer with metastasis to the liver and spine, obesity, depression, and chronic back pain. PAST SURGICAL HISTORY: section times two, back surgeries times three, PowerPort placement and appendectomy. OB HISTORY: 2, para 2. She states that she has a menstrual period about every five or six months and is on Lupron injections every three months. Her last period was December 2016. MEDICATIONS: 1. Anastrazole 1 mg daily at bedtime. 2. Fentanyl patch 50 mcg, change the patch every 3 days. 3. Oxycodone 5 mg p.o. every 4 hours. 4. Xanax 1 mg b.i.d. and at bedtime. 5. Mirtazapine 30 mg daily at bedtime. 6. Rexulti 2 mg daily at bedtime. 7. Xarelto 10 mg daily at bedtime. The patient will hold the Xarelto August 13 and August 14 in preparation for surgery. 8. Lupron injections every 3 months. ALLERGIES: PHENERGAN AND COMPAZINE CAUSE MUSCLE SPASMS, EFFEXOR CAUSES HIVES, MILK CAUSES DIARRHEA. FAMILY HISTORY: No known anesthesia complications, bleeding tendencies, or clotting disorders. SOCIAL HISTORY: She smokes approximately four cigarettes per day. She denies the use of alcohol. She is on disability. REVIEW OF SYSTEMS: Constitutional: No fevers, chills, excessive fatigue or weight loss. Endocrine: No diabetes or thyroid disease. Hematologic: No easy bruising or bleeding. No history of blood transfusions. Breasts: Metastatic right breast cancer. Respiratory: No chronic cough. No dyspnea on exertion. Cardiovascular: No anginal chest pain or palpitations. When she was admitted in August of 2016, she was diagnosed with a right ovarian vein thrombus and was started on anticoagulation. She was on telemetry and had a run of supraventricular arrhythmia. Dr. French was consulted. The patient was asymptomatic during the arrhythmia. Echocardiogram revealed normal LV and systolic function. Gastrointestinal: As in history of present illness. Genitourinary: No dysuria. Musculoskeletal: Chronic back pain. Neurologic: No current headache or blurred vision. General: No previous anesthesia complications. Right ovarian vein thrombus August 2016. No history of pulmonary embolism. PHYSICAL EXAMINATION GENERAL: The patient is a 41-year-old, morbidly obese female in no acute distress. VITAL SIGNS: Height 65 inches, weight 240 pounds, body mass index 39.9, blood pressure 120/84, pulse 74 and regular, respiratory rate 16, temperature 97.9 tympanic. SKIN: Warm, dry, intact. HEENT: Benign. Edentulous. NECK: Supple, no cervical lymphadenopathy. LUNGS: Breath sounds bilaterally clear and equal. Anterior chest with well- healed surgical scar from PowerPort placement. HEART: Regular rate and rhythm. No murmurs or rubs appreciated. ABDOMEN: Active bowel sounds, obese, soft, tender in the epigastrium and right upper quadrant with positive Mcmillan sign. No obvious masses or organomegaly, but exam is limited by body habitus. EXTREMITIES: Warm without edema or skin ulceration. PELVIC: Exam deferred. RECTAL: Exam deferred. NEUROLOGIC: Alert and oriented times three, steady gait. IMPRESSION: Symptomatic cholelithiasis. PLAN: Same Day Surgery admission to Dr. Moraes's service on July for laparoscopic cholecystectomy. The patient was instructed to hold Xarelto for two days preoperatively, August 13 and August 14, 2017. ROBER MARCUM, INTERNATIONAL TRADE SPECIALIST [id number]/[facility] #: [id number] SANKET
[~2017-08-15 09:52] MED LIST changes: +Buffered Lidocaine 0.9% SYRIN* 5 ML/SYR SYRINGE INTRADERM ONE; +Dexamethasone IV* 4 MG/ML 1 ML (4 MG) IV SLOW PU ONE; +Famotidine TAB* 20 MG PO ONE; -Iohexol 350* (CONTRAST) 500 ML MDV IV ONE; +Levalbuterol 0.63MG/3ML NEB* UNIT OF USE INH ONE; -Morphine INJ* 4 MG/ML 1 ML CARPUJECT IV ONE; -Ondansetron INJ* 2 MG/ML VIAL IV ONE
[2017-08-15] MEDS ORDERED: Dexamethasone IV* 4 MG/ML 1 ML (4 MG) ONE (10:36)
[2017-08-15] MEDS ORDERED: Heparin VIAL(*) 5000 UNITS/ML VIAL (FIVE THOUSAND) ONE (10:36)
[2017-08-15] MEDS ORDERED: Famotidine IV* 10 MG/ML 2 ML (20 mg) ONE (10:36)
[2017-08-15] MEDS ORDERED: Levalbuterol 1.25MG/0.5ML NEB ONE (10:37)
[2017-08-15] MEDS ORDERED: Buffered Lidocaine 0.9% SYRIN* 5 ML/SYR SYRINGE ONE (10:37)
[2017-08-15] MEDS ORDERED: ceFAZolin 2 GM PREMIX (*) 2 GM/50 ML BAG IVPB ONE (10:37)
[2017-08-15] MEDS ORDERED: Ondansetron INJ* 2 MG/ML VIAL ONE (10:41)
[2017-08-15] MEDS ORDERED: fentaNYL* 50 MCG/ML 5 ML VIAL (250 MCG VIAL) ONE (10:41)
[2017-08-15] MEDS ORDERED: Lidocaine 2% PF * 5 ML VIAL ONE (10:41)
[2017-08-15] MEDS ORDERED: Midazolam* 1 MG/ML 10 ML VIAL (10 MG) ONE (10:41)
[2017-08-15] MEDS ORDERED: Propofol* 10 MG/ML 20 ML BTL IV PUSH ONE (10:41)
[2017-08-15] MEDS ORDERED: Glycopyrrolate IV* 0.2 MG/ML 1 ML VIAL ONE (10:45)
[2017-08-15] MEDS ORDERED: Bupivacaine 0.25% SDV* 30 ML ONE (11:21)
[2017-08-15] MEDS ORDERED: fentaNYL* 50 MCG/ML 2 ML VIAL (100 MCG VIAL) ONE ×5 (11:56→13:35)
[2017-08-15] MEDS ORDERED: DiMENhydriNATE IV* 50 MG/ML VIAL IV PUSH PRN (12:06)
[2017-08-15] MEDS ORDERED: Ondansetron INJ* 2 MG/ML VIAL IV PRN (12:06)
[2017-08-15] MEDS ORDERED: Naloxone* 0.4 MG/ML 1 ML VIAL IV PRN (12:06)
--- NOTE | 2017-08-15 12:50 | OP ---
Operative Report - Blank - Operative Report Date of Operation: 08/15/17 Note: Preop Dx: symptomatic cholelithiasis Postop Dx: same Procedure: laparoscopic cholecystectomy Anesthesia: GET Surgeon: Dimitry Asst: EBONY Frnak Fluids: 1750 ml RL EBL: 30 ml Specimen: GB Drains: none Findings: dictated
[2017-08-15] MEDS: fentaNYL* 50 MCG/ML 2 ML VIAL (100 MCG VIAL) IV PRN ×5 (12:51→13:44)
[2017-08-15] MEDS ORDERED: oxyCODONE TAB* 5 MG TAB ONE ×2 (12:58→13:01)
[2017-08-15] MEDS: oxyCODONE TAB* 5 MG TAB PO PRN ×2 (13:01→13:06)
[2017-08-15] MEDS ORDERED: HYDROmorphone INJ* 2 MG/ML CARPUJECT SYRINGE ONE (13:36)
[2017-08-15] MEDS: HYDROmorphone INJ* 1 MG/ML CARPUJECT SYRINGE IV PRN ×5 (13:38→14:08)
[2017-08-15 15:29] VITALS: BP 150/94
--- NOTE | 2017-08-16 02:02 | OP ---
CC: Dr. Jill Cordova * DATE OF OPERATION: 08/15/17 - SDS DATE OF : 79 SURGEON: Darren Moraes MD OUTSIDE RIGGER: EBONY Hicks ANESTHESIOLOGIST: Dr. Lopez. ANESTHESIA: General anesthetic, local infiltration. PRE-OP DIAGNOSIS: Symptomatic cholelithiasis. POST-OP DIAGNOSIS: Symptomatic cholelithiasis. OPERATIVE PROCEDURE: Laparoscopic cholecystectomy. DESCRIPTION OF PROCEDURE: The patient was supine on the operative table. After adequate general anesthetic, compression stockings, Yves Hugger warmer and intravenous antibiotics, the abdomen was prepped with antiseptic, draped in a sterile fashion. Local infiltrative anesthesia was administered. A right upper quadrant incision was created. A 5-mm blunt port cannula was placed under direct vision. Insufflation was carried out with carbon dioxide. Additional cannulae, 5-mm supraumbilical and right anterior axillary line and 12 mm subxiphoid, were placed through small stab wounds under direct vision. The gallbladder was tented upward. Areolar tissue was taken down off the cystic duct and cystic artery, which are clipped and divided. The gallbladder was taken off the liver bed with electrocautery. There was no spillage. Hemostasis was excellent. The gallbladder was removed through the subxiphoid port without difficulty. Everything was again checked and was in good condition. The pneumoperitoneum was allowed to escape as the cannulae were removed. The incisions were closed with 5-0 Vicryl followed by Steri-Strips. She tolerated the procedure well, was awakened and brought to Recovery in good condition. No complications. No drains. Pathologic specimen is gallbladder. Sponge and instrument counts correct. Estimated blood loss is 10 mL. [id number]/[facility] #: [id number] MTDD
== END 2017-08-15 15:29 | disposition home or self-care (01) ==
LOC: OR 09:52
PROVIDERS: ATTEND Surgery
DX: K80.10 Calculus of gallbladder with chronic cholecystitis without obstruction (principal); F17.210 Nicotine dependence, cigarettes, uncomplicated; E66.01 Morbid (severe) obesity due to excess calories; C50.919 Malignant neoplasm of unspecified site of unspecified female breast; C78.7 Secondary malignant neoplasm of liver and intrahepatic bile duct; C79.51 Secondary malignant neoplasm of bone; F32.9 Major depressive disorder, single episode, unspecified; M54.9 Dorsalgia, unspecified
CPT/HCPCS: 81025; 88304; A9270-GY; J0690; J1100; J1170; J1644; J2250; J2405; J2704; J3010

== ENCOUNTER 2018-01-10 10:42 | Emergency (ER) | payer OTHER ==
[2018-01-10] MEDS ORDERED: Morphine VIAL* 4 MG/ML VIAL (1 ml vial) IV ONE (10:59)
[2018-01-10] MEDS ORDERED: Aspirin 81 mg CHEW TAB* 81 MG TAB.CHEW PO ONE (10:59)
--- OUTSIDE RECORDS SUMMARY | 2018-01-10 11:12 | XMS REPORT ---
:1975 External Reference #:[id number] [facility] [employer] Address [address] [address] Phone [phone] Care Team Providers Name Role Phone Marleni Richardson MD Care Team Information Plating Operator Unavailable Jill Cordova MD Primary Care Physician Unavailable Payers Type Date Identification Numbers Payment Provider Subscriber Commercial Policy Number: [id number] [employer] Jimenez Guevara PayID: [id number] [address] [address] [place] [address] Problems Date Description Provider Status Onset: 05/14/2011 Panic disorder with agoraphobia Robert Serrano M.D. Active Onset: 05/14/2011 Insomnia Robert Serrano M.D. Active Onset: 05/14/2011 Tobacco user Robert Serrano M.D. Active Onset: 05/14/2011 Current tear of lateral cartilage Terrance Rose M.D. Active AND/OR meniscus of knee Onset: 05/14/2011 Derangement of lateral meniscus Robert Serrano M.D. Active Onset: 05/14/2011 Depressive disorder Robert Serrano M.D. Active Onset: 05/14/2011 Hyperlipidemia Robert Serrano M.D. Active Onset: 05/14/2011 Blood chemistry abnormal Robert Serrano M.D. Active Onset: 05/14/2011 Disorder of lumbar disc Robert Serrano M.D. Active Onset: 06/13/2011 Obstructive sleep apnea syndrome Robert Serrano M.D. Active Onset: 05/07/2012 Chest pain Priscilla Fay M.D. Active Onset: 05/07/2012 Palpitations Priscilla Fay M.D. Active Onset: 05/07/2012 Dyspnea Priscilla Fay M.D. Active Family History Date Family Member(s) Problem(s) Comments General No Current Problems Father sarcoidosis Father arrythmia Father [place] Father Pulmonary Embolism (Pe) Mother Unknown First Son Alive And Well Second Son Alive And Well Siblings 1 Sister, hx of PE and Sarcoidosis First Sister sarcoidosis, arrythmia Grandfather scaroidosis Social History Type Date Description Comments Marital Status Single Lives With children x2 Occupation Disabled Cigarette Use Patient is a current cigarette Began smoking at age 22, smoker, smokes every day smokes 4-5 per day and has quit off and on ETOH Use Denies alcohol use Recreational Drug Use Never Used Drugs Smoking Light tobacco smoker (10 or fewer cigarettes/day) Daily Caffeine Does Not Consume Caffeine Exercise Type/Frequency Exercises rarely Exercise Limitations Back Pain Allergies, Adverse Reactions, Alerts Date Description Reaction Status Severity Comments 11/15/2010 Compazine body twists up active 05/07/2012 Phenergan active body "twists up" 05/07/2012 Effexor Urticaria active hives Medications Medication Date Status Form Strength Qnty SIG Indications Ordering Provider Fentanyl Active Patches 50mcg/HR q 48hrs Unknown /0000 72HR Alprazolam Active Tablets 1mg qid prn Unknown /0000 Ibuprofen Active Capsules 200mg 2 by mouth as Unknown /0000 needed Mirtazapine Active Tablets 30mg 1 by mouth Unknown /0000 Dispers every day Oxycodone HCL Active Tablets 5mg 1 by mouth Unknown /0000 every 6 hours as needed pain Imodium A-D Active Tablets 2mg as needed Unknown /0000 Vitamin D High Active Capsules 1000Unit 4 by mouth Unknown Potency /0000 every day Rexulti Active Tablets 2mg once at Unknown /0000 bedtime Xarelto Active Tablets 20mg 1 by mouth Unknown /0000 every day Lupron 00 Active Kit 11.25mg q 3 months Unknown Depot-Ped /0000 (Ped) injection (3-Month) Trazodone HCL Active Tablets 100mg take 4 tablet Unknown /0000 by mouth at bedtime Ambien CR Active Tablets ER 12.5mg 1 every night Unknown /0000 at bedtime Metoprolol 00 Active Tablets 50mg 1 by mouth Unknown Tartrate /0000 twice a day Oxygen 00 Active Misc please use o2 Unknown /0000 at 2l/min at night Amoxicillin/Cla 05/05 Hx Tablets 500-125mg 21tab 1 tab by J01.10 Orlando lockhart s mouth three D. Potassium - times per day Willy 06/13 M.DTrenton Sumatriptan 11/16 Hx Solution 4mg/0.5ML 4unit inject twice Gui S. Succinate Cartridge s a day as Uli Gazraill - needed severe M.DTrenton 03/15 migraine 2 days/wk; supply with autoinjector Cymbalta 06/[address] 60mg 30cap 1 po qd 311 Part markie Yeboah M.D. 05/07 Lexapro 03/23 Hx Tablets 20mg 60tab 2 po qd markie Yeboah M.D. 06/13 Zithromax Z-Tacho 03/12 Hx Tablets 250mg 1tabs 2tab today 466.0 and 1tab Sebika - daily x 4days , M.DTrenton 05/14 Ambien 02/06 Hx Tablets 10mg 30tab 1/2 to 1 tab 780.52 s hs prjennifer Yeboah M.D. 05/07 Prevpac 01/01 Hx Misc 30/500/50 14uni 1 dose PO bid 0 ts x14 days Edilia Holden M.D.,FACP 03/12 Bentyl 12/28 Hx Tablets 20mg 30tab 1 tab PO qid 789.09 Edilia Cho M.D.,FACP 05/14 Imitrex 12/28 Hx Tablets 100mg 9tabs 1 tab po. november 346.80 repeat x1 Ida Dudley, - after 2hours M.DTrenton,FACP 03/12 if Aly Nicoderm CQ 12/04 Hx Patches 21mg/24HR 30uni once daily 24HR esther Yeboah M.D. 05/14 Mobic 11/29 Hx Tablets 15mg 30tab once daily 719.06 markie Yeboah M.D. 02/06 Lexapro 11/29 Hx Tablets 20mg 60tab 2 tab once 311 s abby Yeboah M.D. 12/13 Nicoderm CQ 11/29 Hx Patches 14mg/24HR 30uni once daily 305.1 24HR esther Yeboah M.D. 12/04 Opana ER Hx Tablets ER 30mg po q12h Unknown / 12HR - 05/07 Opana Hx Tablets 10mg po q8hrs - 11/15 Lyrica Hx Capsules 75mg 1 po bid - 11/15 Lexapro Hx Tablets 20mg 30tab 1 po qd markie Yeboah M.D. 11/29 Omeprazole Hx Capsules 20mg 30cap 1 po qd Unknown s - 05/07 Amoxicillin Hx Tablets 500mg 40tab Unknown s - 05/07 Clarithromycin Hx Tablets 500mg 14tab Unknown s - 05/07 Lexapro Hx Tablets 20mg 30tab Unknown / s - 05/07 Trazodone HCL Hx Tablets 150mg 90tab 3 po qhs s Abilify Hx Tablets 10mg 1 by mouth Unknown / every day - 03/15 Proair HFA Hx Aerosol 108(90Bas 2 puffs by Unknown /0000 e) mouth every 4 mcg/Act hours as needed Gabapentin Hx Capsules 100mg 2 by mouth Unknown / three times daily Soma Hx Tablets 350mg two times a day as needed - 05/04 Escitalopram Hx Tablets 20mg 2 by mouth Unknown Oxalate every day - 03/15 Prazosin HCL 00 Hx Capsules 2mg 2 by mouth Unknown /0000 daily - 03/15 Oxymorphone HCL 00 Hx Tablets ER 10mg 1 by mouth Unknown ER /0000 12HR twice a day as needed pain Oxymorphone HCL 00 Hx Tablets ER 20mg 1 by mouth Unknown ER /0000 12HR twice a day Vital Signs Date Vital Result Comment 12/13/2017 Height 65 inches 5'5" Weight 269.00 lb Heart Rate 100 /min BP Systolic Sitting 104 mmHg BP Diastolic Sitting 70 mmHg Respiratory Rate 14 /min O2 % BldC Oximetry 92 % BMI (Body Mass Index) 44.8 kg/m2 Neck Circumference in inches 16.25 08/23/2017 Heart Rate 120 /min BP Systolic Sitting 126 mmHg BP Diastolic Sitting 88 mmHg Respiratory Rate 18 /min Body Temperature 98.4 F 08/13/2017 Height 65 inches 5'5" Weight 240.00 lb Heart Rate 74 /min BP Systolic 120 mmHg BP Diastolic 84 mmHg Respiratory Rate 16 /min Body Temperature 97.9 F BMI (Body Mass Index) 39.9 kg/m2 08/15/2016 Heart Rate 80 /min Respiratory Rate 18 /min Body Temperature 99.0 F 07/31/2016 Height 65 inches 5'5" Weight 260.00 lb Heart Rate 80 /min BP Systolic 132 mmHg BP Diastolic 86 mmHg Respiratory Rate 18 /min Body Temperature 98.0 F BMI (Body Mass Index) 43.3 kg/m2 03/16/2016 Height 65 inches 5'5" Weight 250.00 lb Pain Level 5 BMI (Body Mass Index) 41.6 kg/m2 06/14/2015 Height 65.25 inches 5'5.25" Weight 257.38 lb Heart Rate 92 /min BP Systolic Sitting 110 mmHg BP Diastolic Sitting 80 mmHg Respiratory Rate 14 /min Body Temperature 98.0 F BMI (Body Mass Index) 42.5 kg/m2 05/05/2015 Height 65.25 inches 5'5.25" Weight 255.00 lb Heart Rate 90 /min BP Systolic Sitting 124 mmHg BP Diastolic Sitting 80 mmHg Respiratory Rate 14 /min Body Temperature 98.3 F BMI (Body Mass Index) 42.1 kg/m2 11/16/2014 Height 65.25 inches 5'5.25" Weight 250.00 lb Heart Rate 84 /min BP Systolic Sitting 116 mmHg BP Diastolic Sitting 78 mmHg Respiratory Rate 16 /min BMI (Body Mass Index) 41.3 kg/m2 06/25/2012 Height 65.25 inches 5'5.25" Weight 200.00 lb Heart Rate 100 /min BP Systolic 104 mmHg BP Diastolic 70 mmHg BMI (Body Mass Index) 33.0 kg/m2 05/07/2012 Height 65.25 inches 5'5.25" Weight 199.00 lb Heart Rate 108 /min BP Systolic Sitting 128 mmHg BP Diastolic Sitting 82 mmHg Respiratory Rate 20 /min BMI (Body Mass Index) 32.9 kg/m2 06/13/2011 Height 65.25 inches 5'5.25" Weight 201.00 lb Heart Rate 108 /min BP Systolic Sitting 125 mmHg BP Diastolic Sitting 70 mmHg BMI (Body Mass Index) 33.2 kg/m2 05/14/2011 Height 65.25 inches 5'5.25" Weight 207.00 lb Heart Rate 60 /min BP Systolic Sitting 120 mmHg BP Diastolic Sitting 75 mmHg BMI (Body Mass Index) 34.2 kg/m2 03/12/2011 Weight 205.00 lb Heart Rate 72 /min BP Systolic Sitting 100 mmHg BP Diastolic Sitting 60 mmHg 02/06/2011 Weight 205.00 lb Heart Rate 72 /min BP Systolic Sitting 148 mmHg BP Diastolic Sitting 72 mmHg Respiratory Rate 18 /min 12/28/2010 Weight 207.00 lb Heart Rate 76 /min BP Systolic Sitting 116 mmHg BP Diastolic Sitting 70 mmHg Body Temperature 97.8 F lt ear 12/13/2010 Height 65 inches 5'5" Weight 205.00 lb Heart Rate 90 /min BP Systolic Sitting 124 mmHg BP Diastolic Sitting 80 mmHg BMI (Body Mass Index) 34.1 kg/m2 11/29/2010 Height 65 inches 5'5" Weight 214.00 lb Heart Rate 74 /min BP Systolic Sitting 112 mmHg BP Diastolic Sitting 78 mmHg BMI (Body Mass Index) 35.6 kg/m2 11/15/2010 Height 65 inches 5'5" Weight 207.00 lb Heart Rate 94 /min BP Systolic Sitting 110 mmHg BP Diastolic Sitting 86 mmHg BMI (Body Mass Index) 34.4 kg/m2 Results Test Date Test Result H/L Range Note Laboratory test 08/15/2017 Surgical Pathology SEE RESULT BELOW 1 finding Laboratory test 08/09/2016 (HCG) Negative Negative 2 finding Urine Laboratory test 12/23/2012 Urine Negative Negative 3 finding Laboratory test 05/21/2012 TSH (Thyroid 0.71 MIU/ML 0.34-5.60 finding Stimulating Horm) Surgical Pathology 07/24/2011 Surgical Pathology 4 <SEE NOTE> Urinalysis 06/27/2011 Ua Color [place] Yellow W/Microscopic Appearance-Urine TURBID Clear Specific [place]-Ur 1.024 1.010-1.030 Esterase-Urine TRACE Negative Nitrite POSITIVE Negative [id number] NEGATIVE Negative Protein-Urine NEGATIVE Negative PH-Urine 5.5 5-9 Blood-Urine NEGATIVE Negative Ketones-Urine TRACE Negative Bilirubin-Ur SEE ICTOTEST Negative Glucose-Urine NEGATIVE Negative WBC-Urine 0-2 0-5 RBC-Urine 0-2 0-2 Epith Cells-Ur FEW None Bacteria-Urine 1+ None Amorphous Sed-U 4+ None Laboratory test finding 06/27/2011 Ictotest NEGATIVE 5 Comp Metabolic Panel 06/27/2011 Sodium 138 mmol/L 135-145 Potassium 3.4 mmol/L Low 3.5-5.0 Chloride 102 mmol/L 101-111 Co2 (Carbon Dioxide) 26.0 mmol/L 22-32 Anion Gap 10.0 mmol/L 2-11 6 Glucose 97 mg/dL 70-100 BUN 7 mg/dL 6-24 Creatinine 0.7 mg/dL 0.50-1.40 One Over Creatinine 1.42 BUN/Creatinine Ratio 10.0 8-20 Calcium 9.4 mg/dL 8.1-9.9 Total Protein 7.9 GM/DL 6.2-8.1 Albumin 4.1 GM/DL 3.6-5.4 Globulin 3.8 GM/DL 2-4 Albumin/Globulin Ratio 1.1 1-3 Bilirubin Total 1.0 mg/dL 0.4-1.5 7 Alkaline Phosphatase 96 U/L 30-110 Alt (SGPT) 61 U/L High 14-54 Ast (Sgot) 58 U/L High 12-42 eGFR Non- 96.4 > 60 eGFR 123.9 > 60 8 Laboratory test finding 06/27/2011 C Reactive Protein < 0.5 mg/dL Less Than 0.5 Liver Function Panel 12/28/2010 Total Protein 6.4 GM/DL 6.2-8.1 Albumin 4.0 GM/DL 3.6-5.4 Globulin 2.4 GM/DL 2-4 Albumin/Globulin Ratio 1.7 1-3 Bilirubin Total 0.8 mg/dL 0.4-1.5 9 Bilirubin Direct 0.4 mg/dL 0.1-0.5 Indirect Bilirubin 0.4 mg/dL 0.3-1.0 10 Alkaline Phosphatase 89 U/L 30-110 Alt (SGPT) 43 U/L 14-54 Ast (Sgot) 46 U/L High 12-42 H. Pylori Evaluation Quantitat 12/28/2010 H. Pylori Igg AB 1.03 index () 11 H. Pylori Igm AB Negative Negative H. Pylori Iga AB Negative Negative Laboratory test finding 11/24/2010 Uric Acid 5.4 mg/dL 2.6-7.2 Lyme Disease Serology Negative Negative 12 Ciara (Antinuclear Antibodies) 11/24/2010 Antinuclear AB NEGATIVE Negative Reviewed By (SEE NOTE) 13 Laboratory test finding 11/24/2010 TSH 3.54 MIU/ML 0.34-5.60 Rheumatoid Factor 22.1 IU/mL High Less Than 20 Erythrocyte Sed Rate 13 MM/HR 0-15 Lipid Profile (Trig/Chol/HDL) 11/24/2010 Triglyceride 288 mg/dL High 40- 200 Cholesterol 250 mg/dL High Less Than 200 14 High Density Lipoprotein 26 mg/dL Low 40-60 15 Cholesterol/HDL Ratio 9.62 AVERAGE High 1-4.44 Low Density Lipoprotein 166 mg/dL High Less Than 100 16 Comp Metabolic Panel 11/24/2010 Sodium 134 mmol/L Low 135-145 Potassium 3.9 mmol/L 3.5-5.0 Chloride 102 mmol/L 101-111 Co2 (Carbon Dioxide) 21.0 mmol/L Low 22-32 Anion Gap 11.0 mmol/L 2-11 17 Glucose 114 mg/dL High 70-100 BUN 6 mg/dL 6-24 Creatinine 0.60 mg/dL 0.50-1.40 One Over Creatinine 1.60 BUN/Creatinine Ratio 10.0 8-20 Calcium 8.8 mg/dL 8.1-9.9 Total Protein 6.4 GM/DL 6.2-8.1 Albumin 3.8 GM/DL 3.6-5.4 Globulin 2.6 GM/DL 2-4 Albumin/Globulin Ratio 1.5 1-3 Bilirubin Total 0.7 mg/dL 0.4-1.5 18 Alkaline Phosphatase 93 U/L 30-110 Alt (SGPT) 54 U/L 14-54 Ast (Sgot) 64 U/L High 12-42 eGFR Non- 115.1 > 60 eGFR 148.1 > 60 19 CBC Auto Diff 11/24/2010 White Blood Count 10.2 CUMM 4.8-10.8 Red Cell Count 5.07 CUMM 4.2-5.4 Hemoglobin 16.2 g/dL High 12.0-16.0 Hematocrit 46 % 35-47 Mean Corpuscular Volume 92 um3 79-97 Mean Corpuscular Hemoglob 32 pg High 27-31 Mean Corpuscular HGB Cone 35 g/dL 32-36 Redcell Distribution WDTH 14 % 10.5-15 Platelet Count 312 CUMM 150-450 Mean Platelet Volume 8.7 um3 7.4-10.4 Gran % 59.0 % 38-83 Lymph % 29.7 % 25-47 Mononuclear % 6.2 % 1-9 Eosinophil % 3.6 % 0-6 Basophil % 1.5 % 0-2 Abs Lymphs 3.0 1.0-4.8 Abs Mononuclear 0.6 0-0.8 Absolute Neutrophil Count 6.0 1.5-7.7 Abs Eosinophils 0.4 0-0.6 Abs Basophils 0.2 0-0.2 1 SEE RESULT BELOW Name: JIMENEZ GUEVARA : [address]: Darren Moraes MD Acct: [id number] Unit: [id number] AGE: 41 Location: OR Re08/15/17 SEX: F Status: DEVAUGHN CAZARES SPEC: [id number] MARCIAL: 08/15/17- SUBM DR: Darren Moraes MD REQ: [id number] RECD: 08/15/17-1407 STATUS: SOUT _ ORDERED: LEVEL 3 FINAL DIAGNOSIS Gallbladder, cholecystectomy: -- Chronic cholecystitis. -- Cholelithiasis. PRE-OPERATIVE DIAGNOSIS Cholecystitis GROSS DESCRIPTION The specimen is received in formalin labeled, Gallbladder, and consists of an 8.8 x 3.0 x 2.9 cm intact gallbladder with an attached 1.2 x 0.6 cm cystic duct remnant. The serosa is glistening smooth tellez-pink. Within the lumen and the cystic neck there are a few yellow-black granular to bosselated choleliths ranging from 0.3 cm to 0.5 cm admixed with yellow viscid bile. The mucosa is reticulated to velvety tellez-red and the wall thickness averages 0.1 cm. Side Show Entertainer sections, one cassette. Signed (signature on file) Brenda Teran MD 1555 END OF REPORT * ML=Testing performed at Main Lab DEPARTMENT OF PATHOLOGY, [address] [place] [address] Jaxon Schaffer M.D. Director [facility] # [id number] 2 If is still suspected, please repeat test after 48 to 72 hours. This test detects intact HCG only and is indicated for the early detection of . 3 If is still suspected, please repeat test after 48 to 72 hours. This test detects intact HCG only and is indicated for the early detection of . 4 --- RUN DATE: 07/26/11 [facility] NMI LIVE PAGE 1 RUN TIME: 1306 Specimen Inquiry RUN USER: INTERFACE -- Name: JIMENEZ GUEVARA Status: REG REF Re07/24/11 Age/Sex: 35/F Unit#: [id number] Location: [facility] : [birth year] -- Specimen: [id number] SOUT Spec Date: 07/24/[address]: Bertrand rodriguez MD Spec Type: SURGICAL P Received: 07/25/11 Copies to: Robert kessler MD SPECIMEN 1) TRANSVERSE COLON BIOPSIES 2) TRANSVERSE COLON POLYP 3) DESCENDING COLON BIOPSIES 4) SIGMOID COLON BIOPSIES 5) RECTO-SIGMOID BIOPSIES 6) RECTAL BIOPSIES HISTORY POST-OP DIAGNOSIS: Colonoscopy to cecum. Multiple biopsies. CLINICAL INFORMATION: Ulcerative colitis. GROSS DESCRIPTION 1) The specimen is received in formalin labelled Jimenez Guevara Transverse Colon Biopsy, and consists of multiple tellez soft tissue fragments measuring 0.8 x 0.4 x 0.1 cm. Submitted entirely, one cassette. 2) The specimen is received in formalin labelled Jimenez Guevara, Transverse Colon Polyp, and consists of a polypoid tellez soft tissue fragment measuring 0.6 x 0.4 x 0.3 cm. Submitted entirely, one cassette. 3) The specimen is received in formalin labelled Jimenez Dunnkins, Descending Colon Polyp, and consists of multiple tellez soft tissue fragments measuring 0.6 x 0.4 x 0.1 cm. Submitted entirely, one cassette. 4) The specimen is received in formalin labelled Jimenez Giovana Dunn[place], Sigmoid Colon Biopsy, and consists of two tellez soft tissue fragments measuring 0.5 x 0.3 x 0.1 cm. Submitted entirely, one cassette. 5) The specimen is received in formalin labelled Jimenez Guevara, Rectosigmoid Biopsy, and consists of two tellez soft tissue fragments measuring 0.4 x 0.2 x 0.2 cm. Submitted entirely, one cassette. 6) The specimen is received in formalin labelled Jimenez Guevara, Rectal Biopsy, and consists of two tellez soft tissue fragments measuring 0.4 x 0.2 x 0.2 cm. in aggregate. Submitted entirely, one cassette. -- DEPARTMENT OF PATHOLOGY, [address] [place] [address] [facility] Permit #[id number] Jaxon Schaffer M.D. Director Kelechi Palmer M.D. Miniature Set Designer franko -- -- RUN DATE: 07/26/11 [facility] NMI LIVE PAGE 2 RUN TIME: 1306 Specimen Inquiry RUN USER: INTERFACE -- Name: JIMENEZ GUEVARA Status: REG REF Re07/24/11 Age/Sex: 35/F Unit#: [id number] Location: [facility]. : [birth year] -- -- CONTINUED -- DIAGNOSIS 1) Colon, transverse, biopsy: A. Large intestinal mucosa with mild architectural disorder. B. No active colitis or specific features of chronic inflammatory bowel disease are identified. 2) Colon, transverse, biopsy: A. Tubular adenoma. B. No high grade dysplasia or malignancy. 3) Colon, descending, biopsy: A. Large intestinal mucosa with mild architectural disorder. B. No dysplasia identified. 4) Colon, sigmoid, biopsy: A. Large intestinal mucosa with mild architectural disorder. B. No active colitis or specific features of chronic inflammatory bowel disease are identified. 5) Colon, rectosigmoid, biopsy: A. Large intestinal mucosa with mild architectural disorder. B. No active colitis or specific features of chronic inflammatory bowel disease are identified. 6) Colon, rectum, biopsy: A. Large intestinal mucosa with mild architectural disorder. B. No active colitis or specific features of chronic inflammatory bowel disease are identified. COMMENT The morphologic features are compatible with quiescent chronic inflammatory bowel disease. The polyp in part 2 demonstrates typical features of a tubular adenoma with low grade dysplasia. Signed Electronically by: JAXON SCHAFFER MD 07/26/11 1305 -- -- DEPARTMENT OF PATHOLOGY, [address] [place] [address] [facility] Permit #[id number] Jaxon Schaffer M.D. Director Kelechi Palmer M.D. Miniature Set Designer Dir franko -- 5 ICTOTEST IS A QUALITATIVE CONFIRMATORY TEST FOR BILIRUBIN. 6 Anion gap measurement may be of limited value in the presence of any alkalosis, especially in a combined acid base disorder. . 7 A metabolite of Naproxen, O-desmethylnaproxen, has been shown to interfere with the Jendrassik-Prince method for measuring total bilirubin. Samples from patients who have taken Naproxen have shown spurious elevation in total bilirubin levels. 8 Because ethnic data is not always readily available, this report includes an eGFR for both -Americans and non- Americans. The National Kidney Disease Education Program (NKDEP) does not endorse the use of the MDRD equation for patients that are not between the ages of 18 and 70, are , have extremes of body size, muscle mass, or nutritional status, or are non- or non-. According to the National Kidney Foundation, irrespective of diagnosis, the stage of the disease is based on the level of kidney function: Stage Description GFR(mL/min/1.73 m(2)) 1 Kidney damage with normal or decreased GFR 90 2 Kidney damage with mild decrease in GFR 60-89 3 Moderate decrease in GFR 30-59 4 Severe decrease in GFR 15-29 5 Kidney failure <15 (or dialysis) 9 A metabolite of Naproxen, O-desmethylnaproxen, has been shown to interfere with the Jendrassik-Whiteface method for measuring total bilirubin. Samples from patients who have taken Naproxen have shown spurious elevation in total bilirubin levels. 10 Please note updated reference range, effective 02/09/10 11 -- REFERENCE VALUE -- <0.75 (negative) 0.75-0.99 (equivocal) >=1.00 (positive) 12 Serologic response to B. burgdorferi infection is not detected, but cannot rule out early infection during which low or undetectable antibody levels to B. burgdorferi may be present. If clinically indicated, a new serum specimen should be submitted in 7-14 days. Test Performed by: [facility] [address] [place] [id number] Registrar Assistant: Jatin Santiago III, M.D. 13 REVIEWED BY JAXON SCHAFFER MD 14 CHOLESTEROL INTERPRETATION: Desirable: Less than 200 MG/DL Borderline-High Risk: 200-239 MG/DL High-Risk: 240 MG/DL and over 15 HDL INTERPRETATION: Undesirable: High Risk: Less than 40 MG/DL Desirable: Low Risk: Greater than 60 MG/DL 16 LDL INTERPRETATION: Low Risk Optimal Level: LDL Less than 100 MG/DL Near or Above Optimal: LDL 100-129 MG/DL Borderline High Risk: LDL 130-159 MG/DL High Risk: LDL 160-189 MG/DL Very High Risk: LDL Greater than 189 MG/DL 17 Anion gap measurement may be of limited value in the presence of any alkalosis, especially in a combined acid base disorder. . 18 A metabolite of Naproxen, O-desmethylnaproxen, has been shown to interfere with the Jendrassik-Prince method for measuring total bilirubin. Samples from patients who have taken Naproxen have shown spurious elevation in total bilirubin levels. 19 Because ethnic data is not always readily available, this report includes an eGFR for both -Americans and non- Americans. The National Kidney Disease Education Program (NKDEP) does not endorse the use of the MDRD equation for patients that are not between the ages of 18 and 70, are , have extremes of body size, muscle mass, or nutritional status, or are non- or non-. According to the National Kidney Foundation, irrespective of diagnosis, the stage of the disease is based on the level of kidney function: Stage Description GFR(mL/min/1.73 m(2)) 1 Kidney damage with normal or decreased GFR 90 2 Kidney damage with mild decrease in GFR 60-89 3 Moderate decrease in GFR 30-59 4 Severe decrease in GFR 15-29 5 Kidney failure <15 (or dialysis) Procedures Date CPT Code Description Status 11/14/2017 03069 ECHO Transthorasic Realtime 2D W Doppler & Color Flow Completed Hosp 08/15/2017 05939 Laparoscopy Cholecystectomy Completed 08/15/2017 30386 Laparoscopy Cholecystectomy Completed 07/09/2017 04495 EKG, Interpretation Only Completed 02/04/2017 23332 ECHO Transthorasic Realtime 2D W Doppler & Color Flow Completed Hosp 01/11/2017 51593 ECHO Transthoracic, Real-Time 2D With Doppler And Color Completed Flow 11/22/2016 10789 ECHO Transthorasic Realtime 2D W Doppler & Color Flow Completed Hosp 10/03/2016 02367 EKG, Interpretation Only Completed 10/02/2016 34396 ECHO Transthorasic Realtime 2D W Doppler & Color Flow Completed Hosp 09/10/2016 60872 ECHO Transthorasic Realtime 2D W Doppler & Color Flow Completed Hosp 09/09/2016 61310 EKG, Interpretation Only Completed 08/09/2016 15591 Fluoroscopic Guidance For Cent Completed 08/09/2016 14545 Insertion Tunneled Cent Venous Cathr W Subcut Port 5 Completed Yrs Or Oldr 08/01/2016 52787 ECHO Transthoracic, Real-Time 2D With Doppler And Color Completed Flow 07/18/2016 Mammogram Completed 12/23/2012 20151 Arthrotomy Metatarsophalangeal JT Completed 12/23/2012 86463 Arthrotomy Metatarsophalangeal JT Completed 06/05/2012 46364 Stress ECHO Interpretation/Report Hospital Completed 06/05/2012 02371 Holter Monitoring 24 HR New Completed 06/05/2012 48642 Treadmill Interp/Report Only Completed 06/05/2012 67505 Stress Test Supervsn W/Out I/R Completed 05/22/2012 19895 ECHO Transthoracic, Real-Time 2D With Doppler And Color Completed Flow 05/21/2012 72641 ECHO Stress Test Incl Perf Contiuous ekg Monitoring Completed W/Phys Superv 05/21/2012 39441 ECHO Stress Test Incl Perf Contiuous ekg Monitoring Completed W/Phys Superv 05/07/2012 11144 EKG Tracing & Interpretation Completed 07/24/2011 Colonoscopy Completed Encounters Type Date Location Provider CPT E/M Dx Office Visit 12/13/2017 [place] [address] R06.02 7:30a [facility] F17.210 R06.83 E66.01 Office Visit 08/13/2017 11:15a [facility], 58411 K80.10 Parvin Skaggs Office Visit 03/09/2017 12:01p [facility] Jabier Urbina 39109 R51 Sharifa Office Visit 03/08/2017 12:00p [facility] [address] R51 Office Visit 03/05/2017 11:51a [facility] [address] R51 H53.8 E66.01 C50.919 Office Visit 03/03/2017 12:28p [facility] Robert Guerrero, 22034 R51 Assoc,pc [place] Hospitalists R11.0 I82.891 C50.919 Office Visit 03/02/2017 12:27p [facility] Assoc,mohit Macdonald M.D. 72783 R51 Hospitalists R11.0 I82.891 C50.919 Office Visit 09/26/2016 9:54a [facility] Assoc,[place] [address] D70.9 Hospitalists R50.81 I82.890 G89.29 Office Visit 09/10/2016 9:50a [facility] Marshal French, 60227 I47.2 Parvin Skaggs R00.0 Office Visit 09/09/2016 11:44a [facility] [place] [address] I82.890 Assoc,pc Hospitalists C50.919 C79.51 I47.2 Office Visit 09/08/2016 [facility] Raj Macdonald M.D. 40782 I82.890 Hospitalists C50.919 C79.51 F32.89 Office Visit 07/31/2016 1:00p [facility], 10811 C50.511 Parvin Skaggs Office Visit 03/16/2016 3:00p [facility] Renetta Gray M.D. 95731 M25.462 C.M.ATrenton M25.562 Office Visit 06/14/2015 8:30a [facility] Orlando Aguilera, 22233 R50.9 Infectious Diseases M.Ida Office Visit 05/05/2015 2:20p [facility] Orlando Aguilera, 92796 J01.10 Infectious Diseases M.DTrenton Office Visit 11/16/2014 1:00p [facility] Gui Garza, 96836 346.80 Services [facility] Sharifa Office Visit 12/22/2012 2:00p [facility] Earl Hedrick M.D. 24463 730.97 Of C.M.Leyla 892.1 Office Visit 06/25/2012 11:00a [facility] Priscilla Fay 81059 785.1 M.D. 272.4 427.69 Office Visit 06/05/2012 10:30a [facility] S. [facility], 96407 794.31 M.D. 401.1 785.1 785.0 Office Visit 05/21/2012 11:30a [facility], 91999 327.23 M.D. 305.1 786.50 785.1 786.05 Office Visit 06/13/2011 1:20p [facility] Not Use [facility] [address] [address] [place] 780.52 327.23 Office Visit 05/14/2011 1:20p DO Not Use [facility] [facility] [place] [facility] [address] 272.[address] [place] 790.6 311 780.52 305.1 300.21 Office Visit 03/12/2011 4:20p DO Not Use [facility] AT [facility], 97362 300.21 [place] M.Ida 780.52 305.1 466.0 Office Visit 02/06/2011 9:40a DO Not Use [facility] AT [facility], 68571 789.09 [place] M.DTrenton 300.21 780.52 Office Visit 01/03/2011 2:15p [facility] Terrance Rose M.D. 13006 716.96 C.M.A. 836.1 Office Visit 12/28/2010 10:30a DO Not Use [employer] AT Ivelisse Mcgill, N.P. 29242 789.09 [place] 346.80 Office Visit 12/13/2010 1:40p DO Not Use [facility] AT [facility], 02447 717.49 [place] M.DTrenton 311 Office Visit 11/29/2010 1:40p DO Not Use [facility] AT [facility], 68345 719.06 [place] M.DTrent[place] 305.1 311 272.4 790.6 Office Visit 11/15/2010 1:00p DO Not Use [employer] AT Robertgreta Serrano M.D. [address] [facility] 722.93 300.21 719.46 305.1 V72.62 Plan of Care Future Appointment(s):02/17/2018 3:30 pm - Maine Herman MD at [facility]12/13/2017 - Maine Herman, MDR06.02 Shortness of breathFollow up:6 jbpcdU54.210 Nicotine dependence, cigarettes, uncomplicatedNew Labs:Alpha 1 Antitrypsin A1aNew Orders:PFTW/Spirometry Vol Pre/ Post Bronchdilat Dlco Complete6 Minute WalkR06.83 SnoringNew Orders:Sleep XaogcE30.01 Morbid (severe) obesity due to excess calories
--- OUTSIDE RECORDS SUMMARY | 2018-01-10 11:12 | XMS REPORT ---
:1975 External Reference #:[id number] Author Organization [facility] [email or web address] Address [address] [address] Phone [phone] Care Team Providers Name Role Phone Marleni Richardson MD Care Team Information Communications Executive Unavailable Jill Cordova MD Primary Care Physician Unavailable Payers Type Date Identification Numbers Payment Provider Subscriber Commercial Policy Number: [id number] [employer] Jimenez Guevara PayID: [id number] [address] [address] [place] [address] Problems Date Description Provider Status Onset: 05/14/2011 Panic disorder with agoraphobia Robert Serrano M.D. Active Onset: 05/14/2011 Insomnia Robert Serrano M.D. Active Onset: 05/14/2011 Tobacco user Robert Serrano M.D. Active Onset: 05/14/2011 Current tear of lateral cartilage Terrance Rose M.D. Active AND/OR meniscus of knee Onset: 05/14/2011 Derangement of lateral meniscus Robert Serrano M.D. Active Onset: 05/14/2011 Depressive disorder Robert Serraon M.D. Active Onset: 05/14/2011 Hyperlipidemia Robert Serrano [...] Current Problems Father sarcoidosis Father arrythmia Father [place] Father Pulmonary Embolism (Pe) Mother Unknown First [...] Form Strength Qnty SIG Indications Ordering Provider Kirit 12/17 Active Aerosol 1.25mcg/A 12uni inhale two [place] Respimat /2017 ct ts puffs by Virgil, mouth every day Fentanyl Active Patches 50mcg/HR q 48hrs Unknown [...] 2mg once at Unknown /0000 bedtime Xarelto 00/00 Active Tablets 20mg 1 by mouth Unknown /0000 every day Lupron Active Kit 11.25mg q 3 months Unknown Depot-Ped /0000 (Ped) injection (3-Month) Trazodone HCL Active Tablets 100mg take 4 tablet Unknown /0000 by mouth at bedtime Ambien CR Active Tablets ER 12.5mg 1 every night Unknown /0000 at bedtime Metoprolol Active Tablets 50mg 1 by mouth Unknown Tartrate /0000 twice a day Oxygen Active Misc please use o2 Unknown /0000 at 2l/min at night Amoxicillin/Cla 05/05 Hx Tablets 500-125mg 21tab 1 tab by J01.10 [place] vulanate s mouth three D. Potassium - times per day Willy 06/13 M.DTrenton Sumatriptan 11/16 Hx Solution 4mg/0.5ML 4unit inject twice Gui S. Succinate Cartridge s a day as Kayla, Refill - needed severe M.DTrenton 03/15 migraine 2 days/wk; supply with autoinjector Cymbalta 06/[address] 60mg 30cap 1 po qd 311 Part markie Yeboah M.D. 05/07 Lexapro 03/23 Hx Tablets 20mg 60tab 2 po qd markie Yeboah M.D. 06/13 Zithromax Z-Tacho 03/12 Hx Tablets 250mg 1tabs 2tab today 466.0 and 1tab Sebika - daily x 4days Sharifa 05/14 Ambien 02/06 Hx Tablets 10mg 30tab 1/2 to 1 tab 780.52 s hs prn Zach Yeboah M.D. 05/07 Prevpac 01/01 Hx Misc 30/500/50 14uni 1 dose PO bid 0 ts x14 days Edilia Holden M.D.,FACP 03/12 Bentyl 12/28 Hx Tablets 20mg 30tab 1 tab PO qid 789.09 Edilia Cho M.D.,FACP 05/14 Imitrex 12/28 Hx Tablets 100mg 9tabs 1 tab po. november 346.80 Randolph repeat x1 Ida Dudley, - after 2hours M.Ida,FACP 03/12 if Aly Nicoderm CQ 12/04 Hx Patches 21mg/24HR 30uni once daily 24HR esther Yeboah M.D. 05/14 Mobic 11/29 Hx Tablets 15mg 30tab once daily 719.06 markie Yeboah M.D. 02/06 Lexapro 11/29 Hx Tablets 20mg 60tab 2 tab once 311 s daily Zach Yeboah M.D. 12/13 Nicoderm CQ 11/29 Hx Patches 14mg/24HR 30uni once daily 305.1 24HR esther Yeboah M.D. 12/04 Opana ER Hx Tablets ER 30mg po q12h 12HR - 05/07 Opana Hx Tablets 10mg po q8hrs - 11/15 Lyrica Hx Capsules 75mg 1 po bid - 11/15 Lexapro Hx Tablets 20mg 30tab 1 po qd [place] markie Yeboah M.D. 11/29 Omeprazole Hx Capsules 20mg 30cap 1 po qd / DR aden - 05/07 Amoxicillin Hx Tablets 500mg 40tab / s - 05/07 Clarithromycin Hx Tablets 500mg 14tab / s - 05/07 Lexapro Hx Tablets 20mg 30tab / s - 05/07 Trazodone HCL Hx Tablets 150mg 90tab 3 po qhs s Abilify Hx Tablets 10mg 1 by mouth Unknown / every day - 03/15 Proair HFA Hx Aerosol 108(90Bas 2 puffs by / e) mouth every 4 mcg/Act hours as needed Gabapentin Hx Capsules 100mg 2 by mouth Unknown /0000 three times daily Soma Hx Tablets 350mg two times a Unknown day as needed - 05/04 Escitalopram Hx Tablets 20mg 2 by mouth Unknown Oxalate every day - 03/15 Prazosin HCL Hx Capsules 2mg 2 by mouth Unknown daily - 03/15 Oxymorphone HCL 00 Hx Tablets ER 10mg 1 by mouth Unknown ER /0000 12HR twice a day as needed pain Oxymorphone HCL 00 Hx Tablets ER 20mg 1 by mouth Unknown ER /0000 12HR twice a day Vital Signs Date Vital Result Comment 12/17/2017 Height 65 inches 5'5" Weight 267.00 lb w/o shoes Heart Rate 82 /min irreg BP Systolic Sitting 140 mmHg Rue lg cuff BP Diastolic Sitting 102 mmHg Rue lg cuff BP Systolic Standing 130 mmHg Rue BP Diastolic Standing 90 mmHg Rue Respiratory Rate 16 /min BMI (Body Mass Index) 44.4 kg/m2 Ejection Fraction 40-45% as of 11/2017 echo 12/13/2017 Height 65 inches 5'5" Weight 269.00 [...] [place] Yellow W/Microscopic Appearance-Urine TURBID Clear Specific Farrell-Ur 1.024 1.010-1.030 Esterase-Urine TRACE Negative Nitrite POSITIVE Negative Adcwsdkyxeuo-Re-QLC NEGATIVE Negative Protein-Urine NEGATIVE Negative PH-Urine 5.5 [...] High 14-54 Ast (Sgot) 58 U/L High eGFR Non- 96.4 > 60 eGFR 123.9 > 60 8 Laboratory test finding 06/27/2011 C Reactive Protein < 0.5 mg/dL Less Than 0.5 H. Pylori Evaluation 12/28/2010 H. Pylori Igg AB 1.03 index () 9 Quantitat H. Pylori Igm AB Negative Negative H. Pylori Iga AB Negative Negative Liver Function Panel 12/28/2010 Total Protein 6.4 GM/DL 6.2-8.1 Albumin 4.0 GM/DL 3.6-5.4 Globulin 2.4 GM/DL 2-4 Albumin/Globulin Ratio 1.7 1-3 Bilirubin Total 0.8 mg/dL 0.4-1.5 10 Bilirubin Direct 0.4 mg/dL 0.1-0.5 Indirect Bilirubin 0.4 mg/dL 0.3-1.0 11 Alkaline Phosphatase 89 U/L 30-110 Alt (SGPT) 43 U/L 14-54 Ast (Sgot) 46 U/L High Comp Metabolic Panel 11/24/2010 Sodium 134 mmol/L Low 135-145 Potassium 3.9 mmol/L 3.5-5.0 Chloride 102 mmol/L 101-111 Co2 (Carbon Dioxide) 21.0 mmol/L Low 22-32 Anion Gap 11.0 mmol/L 2-11 12 Glucose 114 mg/dL High 70-100 BUN 6 mg/dL 6-24 Creatinine 0.60 mg/dL 0.50-1.40 One Over Creatinine 1.60 BUN/Creatinine Ratio 10.0 8-20 Calcium 8.8 mg/dL 8.1-9.9 Total Protein 6.4 GM/DL 6.2-8.1 Albumin 3.8 GM/DL 3.6-5.4 Globulin 2.6 GM/DL 2-4 Albumin/Globulin Ratio 1.5 1-3 Bilirubin Total 0.7 mg/dL 0.4-1.5 13 Alkaline Phosphatase 93 U/L 30-110 Alt (SGPT) 54 U/L 14-54 Ast (Sgot) 64 U/L High 12-42 eGFR Non- 115.1 > 60 eGFR 148.1 > 60 14 CBC Auto Diff 11/24/2010 White Blood Count [...] Eosinophils 0.4 0-0.6 Abs Basophils 0.2 0-0.2 Laboratory test finding 11/24/2010 Uric Acid 5.4 mg/dL 2.6-7.2 Lyme Disease Serology Negative Negative 15 Ciara (Antinuclear Antibodies) 11/24/2010 Antinuclear AB NEGATIVE Negative Reviewed By (SEE NOTE) 16 Laboratory test finding 11/24/2010 TSH 3.54 MIU/ML 0.34-5.60 Rheumatoid Factor 22.1 IU/mL High Less Than 20 Erythrocyte Sed Rate 13 MM/HR 0-15 Lipid Profile (Trig/Chol/HDL) 11/24/2010 Triglyceride 288 mg/dL High 40- 200 Cholesterol 250 mg/dL High Less Than 200 17 High Density Lipoprotein 26 mg/dL Low 40-60 18 Cholesterol/HDL Ratio 9.62 AVERAGE High 1-4.44 Low Density Lipoprotein 166 mg/dL High Less Than 100 19 1 SEE RESULT BELOW Name: JIMENEZ GUEVARA : [address]: Darren Moraes MD Acct: [id number] Unit: [id number] AGE: 41 Location: OR Re08/15/17 SEX: F Status: DEP SDC SPEC: [id number] MARCIAL: 08/15/17- SUBM DR: Darren Moraes MD REQ: [id number] RECD: 08/15/17 STATUS: SOUT _ ORDERED: LEVEL 3 FINAL [...] and the wall thickness averages 0.1 cm. Regulatory Lead sections, one cassette. Signed (signature on file) Brenda Teran MD 1555 END OF REPORT * ML=Testing performed at Main Lab DEPARTMENT OF PATHOLOGY, [address] [place] [address] Jaxon Schaffer M.D. Director [facility] # [id number] 2 If is still suspected, please repeat test after 48 to 72 hours. This test detects intact HCG only and is indicated for the early detection of . 3 If is still suspected, please repeat test after 48 to 72 hours. This test detects intact HCG only and is indicated for the early detection of . 4 --- RUN DATE: 07/26/11 [facility] NMI LIVE PAGE 1 RUN TIME: 1306 Specimen Inquiry RUN USER: INTERFACE -- Name: JIMENEZ GUEVARA Amandeep Status: REG REF Re07/24/11 Age/Sex: 35/F Unit#: [id number] Location: END : 77 -- Specimen: [id number] SOUT Spec Date: 07/24/11 [facility] Dr: Bertrand rodriguez MD Spec Type: SURGICAL P Received: 07/25/11 Copies to: Robert kessler MD SPECIMEN 1) TRANSVERSE COLON BIOPSIES 2) TRANSVERSE COLON POLYP 3) DESCENDING COLON BIOPSIES 4) SIGMOID COLON BIOPSIES 5) RECTO-SIGMOID BIOPSIES 6) RECTAL BIOPSIES HISTORY POST-OP DIAGNOSIS: Colonoscopy to cecum. Multiple biopsies. CLINICAL INFORMATION: Ulcerative colitis. GROSS DESCRIPTION 1) The specimen is received in formalin labelled Jimenez Giovana [place], Transverse Colon Biopsy, and consists of multiple tellez soft tissue fragments measuring 0.8 x 0.4 x 0.1 cm. Submitted entirely, one cassette. 2) The specimen is received in formalin labelled Jimenez L. [place], Transverse Colon Polyp, and consists of a polypoid tellez soft tissue fragment measuring 0.6 x 0.4 x 0.3 cm. Submitted entirely, one cassette. 3) The specimen is received in formalin labelled Jimenez Amandeep. [place], Descending Colon Polyp, and consists of multiple tellez soft tissue fragments measuring 0.6 x 0.4 x 0.1 cm. Submitted entirely, one cassette. 4) The specimen is received in formalin labelled Jimenez L. [place], Sigmoid Colon Biopsy, and consists of two tellez soft tissue fragments measuring 0.5 x 0.3 x 0.1 cm. Submitted entirely, one cassette. 5) The specimen is received in formalin labelled Jimenez L. Pa[place], Rectosigmoid Biopsy, and consists of two tellez soft tissue fragments measuring 0.4 x 0.2 x 0.2 cm. Submitted entirely, one cassette. 6) The specimen is received in formalin labelled Jimenez Giovana [place], Rectal Biopsy, and consists of two tellez soft tissue fragments measuring 0.4 x 0.2 x 0.2 cm. in aggregate. Submitted entirely, one cassette. -- DEPARTMENT OF PATHOLOGY, [address], [place], [place] [address] [facility] Permit #[id number] Jaxon Schaffer M.D. Director Kelechi Palmer M.D. Beam Builder Dir franko -- -- RUN DATE: 07/26/11 [facility] NMI LIVE PAGE 2 RUN TIME: 1306 Specimen Inquiry RUN USER: INTERFACE -- Name: PAOLAJIMENEZ L Status: REG REF Re07/24/11 Age/Sex: 35/F Unit#: [id number] Location: NIRAJ Ham : [birth year] -- -- CONTINUED -- DIAGNOSIS [...] 07/26/11 1305 -- -- DEPARTMENT OF PATHOLOGY, [address] [place] [address] [facility] Permit #[id number] Jaxon Schaffer M.D. Director Kelechi Palmer M.D. Beam Builder Dir franko -- 5 ICTOTEST IS A [...] 5 Kidney failure <15 (or dialysis) 9 -- REFERENCE VALUE -- <0.75 (negative) 0.75-0.99 (equivocal) >=1.00 (positive) 10 A metabolite of Naproxen, O-desmethylnaproxen, has been shown to interfere with the [place]endrassik-[place] method for measuring total bilirubin. Samples from patients who have taken Naproxen have shown spurious elevation in total bilirubin levels. 11 Please note updated reference range, effective 02/09/10 12 Anion gap measurement may be of limited value in the presence of any alkalosis, especially in a combined acid base disorder. . 13 A metabolite of Naproxen, O-desmethylnaproxen, has been shown to interfere with the Jendrassik-[place] method for measuring total bilirubin. Samples from patients who have taken Naproxen have shown spurious elevation in total bilirubin levels. 14 Because ethnic data is not always readily [...] 15-29 5 Kidney failure <15 (or dialysis) 15 Serologic response to B. burgdorferi infection is not detected, but cannot rule out early infection during which low or undetectable antibody levels to B. burgdorferi may be present. If clinically indicated, a new serum specimen should be submitted in 7-14 days. Test Performed by: [facility] Dpt of Lab Med and Pathology [address] [place] [address] Taxi Driver: Jatin Santigao III, M.D. 16 REVIEWED BY JAXON SCHAFFER MD 17 CHOLESTEROL INTERPRETATION: Desirable: Less than 200 MG/DL Borderline-High Risk: 200-239 MG/DL High-Risk: 240 MG/DL and over 18 HDL INTERPRETATION: Undesirable: High Risk: Less than 40 MG/DL Desirable: Low Risk: Greater than 60 MG/DL 19 LDL INTERPRETATION: Low Risk Optimal Level: LDL Less than 100 MG/DL Near or Above Optimal: LDL 100-129 MG/DL Borderline High Risk: LDL 130-159 MG/DL High Risk: LDL 160-189 MG/DL Very High Risk: LDL Greater than 189 MG/DL Procedures Date CPT Code Description Status 12/17/2017 24362 EKG Tracing & Interpretation Completed 12/13/2017 52157 ECHO Transthorasic Realtime 2D W Doppler & Color Flow Completed Hosp 11/14/2017 76982 ECHO Transthorasic Realtime 2D W Doppler & Color Flow Completed Hosp 08/15/2017 94280 Laparoscopy Cholecystectomy Completed 08/15/2017 04925 Laparoscopy Cholecystectomy Completed 07/09/2017 21938 EKG, Interpretation Only Completed 02/04/2017 69689 ECHO Transthorasic Realtime 2D W Doppler & Color Flow Completed Hosp 01/11/2017 79482 ECHO Transthoracic, Real-Time 2D With Doppler And Color Completed Flow 11/22/2016 30227 ECHO Transthorasic Realtime 2D W Doppler & Color Flow Completed Hosp 10/03/2016 70218 EKG, Interpretation Only Completed 10/02/2016 50164 ECHO Transthorasic Realtime 2D W Doppler & Color Flow Completed Hosp 09/10/2016 56850 ECHO Transthorasic Realtime 2D W Doppler & Color Flow Completed Hosp 09/09/2016 88053 EKG, Interpretation Only Completed 08/09/2016 15666 Insertion Tunneled Cent Venous Cathr W Subcut Port 5 Completed Yrs Or Oldr 08/09/2016 21563 Fluoroscopic Guidance For Cent Completed 08/01/2016 16458 ECHO Transthoracic, Real-Time 2D With Doppler And Color Completed Flow 07/18/2016 Mammogram Completed 12/23/2012 93972 Arthrotomy Metatarsophalangeal JT Completed 12/23/2012 75012 Arthrotomy Metatarsophalangeal JT Completed 06/05/2012 64682 Stress ECHO Interpretation/Report Hospital Completed 06/05/2012 81386 Holter Monitoring 24 HR New Completed 06/05/2012 85640 Treadmill Interp/Report Only Completed 06/05/2012 61212 Stress Test Supervsn W/Out I/R Completed 05/22/2012 93153 ECHO Transthoracic, Real-Time 2D With Doppler And Color Completed Flow 05/21/2012 31760 ECHO Stress Test Incl Perf Contiuous ekg Monitoring Completed W/Phys Superv 05/21/2012 63074 ECHO Stress Test Incl Perf Contiuous ekg Monitoring Completed W/Phys Superv 05/07/2012 16837 EKG Tracing & Interpretation Completed 07/24/2011 Colonoscopy Completed Encounters Type Date Location Provider CPT E/M Dx Office Visit 12/17/2017 [facility] French, 50439 R06.02 1:30p Community Health Program Coordinator AT [facility] Sharifa I42.9 Office Visit 08/13/2017 11:15a [facility], 78183 K80.10 Parvin Mistry.Iad Office Visit 03/09/2017 12:01p [facility] Jabier Urbina 21639 R51 M.Ida Office Visit 03/08/2017 12:00p [facility] [address] R51 Office Visit 03/05/2017 11:51a [facility] [address] R51 H53.8 E66.01 C50.919 Office Visit 03/03/2017 12:28p [facility] Robert Guerrero, 30726 R51 Assoc,pc PA Hospitalists R11.0 I82.891 C50.919 Office Visit 03/02/2017 12:27p [facility] Assoc,mohit Macdonald M.D. 11662 R51 Hospitalists R11.0 I82.891 C50.919 Office Visit 09/26/2016 9:54a [facility] Assoc,[place] [address] D70.9 Hospitalists R50.81 I82.890 G89.29 Office Visit 09/10/2016 9:50a [facility], 76229 I47.2 Parvin Skaggs R00.0 Office Visit 09/09/2016 11:44a [facility] [place] [address] I82.890 Assoc,pc Hospitalists C50.919 C79.51 I47.2 Office Visit 09/08/2016 11:43a [facility] Assoc,mohit Macdonald M.D. 47218 I82.890 Hospitalists C50.919 C79.51 F32.89 Office Visit 07/31/2016 1:00p [facility], 22016 C50.511 Parvin Skaggs Office Visit 03/16/2016 3:00p [facility] Renetta Gray M.D. 90155 M25.462 Autumn M25.562 Office Visit 06/14/2015 8:30a [facility] [place] Ida Willy, 41359 R50.9 Infectious Diseases M.D. Office Visit 05/05/2015 2:20p [facility] [place] Ida Aguilera, 99420 J01.10 Infectious Diseases M.D. Office Visit 11/16/2014 1:00p [facility] Gui Garza, 94173 346.80 Services Of Community Health Program Coordinator M.D. Office Visit 12/22/2012 2:00p [facility] Earl Hedrick M.D. 26610 730.97 Of C.M.A. 892.1 Office Visit 06/25/2012 11:00a [facility] S. [facility], 17283 785.1 M.D. 272.4 427.69 Office Visit 06/05/2012 10:30a [facility] S. [facility] [address]349 794.31 M.D. 401.1 785.1 785.0 Office Visit 05/21/2012 11:30a [facility] S. [facility] 17099 327.23 M.D. 305.1 786.50 785.1 786.05 Office Visit 06/13/2011 1:20p DO Not Use Community Health Program Coordinator AT [facility] [address] 311 [facility] 780.52 327.23 Office Visit 05/14/2011 1:20p DO Not Use Community Health Program Coordinator AT [place] Serrano M.D. 93959 272.4 [place] 790.6 311 780.52 305.1 300.21 Office Visit 03/12/2011 4:20p DO Not Use Community Health Program Coordinator AT [facility], 00963 300.21 [facility] 780.52 305.1 466.0 Office Visit 02/06/2011 9:40a DO Not Use Community Health Program Coordinator AT [facility], 17647 789.09 [facility].[place] 300.21 780.52 Office Visit 01/03/2011 2:15p [facility] Terrance Rose M.D. 64596 716.96 C.M.A. 836.1 Office Visit 12/28/2010 10:30a DO Not Use Community Health Program Coordinator AT [facility]. 90416 789.09 [facility] 346.80 Office Visit 12/13/2010 1:40p DO Not Use Community Health Program Coordinator AT [facility] 93808 717.49 Yalecorina Skaggs 311 Office Visit 11/29/2010 1:40p DO Not Use Community Health Program Coordinator AT [facility] 79867 719.06 Yalecorina Skaggs 305.1 311 272.4 790.6 Office Visit 11/15/2010 1:00p DO Not Use Community Health Program Coordinator AT Robert Serrano M.D. 31069 311 [facility] 722.93 300.21 719.46 305.1 V72.62 Plan of Care Future Appointment(s):02/17/2018 3:30 pm - Maine Herman MD at [facility]12/17/2017 - [facility] French M.D.R06.02 Shortness of aztyazX67.9 Cardiomyopathy, unspecifiedFollow up:6 months
[2018-01-10 11:44] LABS: ABS Basophils 0.1 10^3/ul (0-0.2); ABS Eosinophils 0.2 10^3/ul (0-0.6); ABS Lymphocytes 1.6 10^3/ul (1.0-4.8); ABS Monocytes 0.5 10^3/ul (0-0.8); ABS Neutrophils 8.3 10^3/ul (1.5-7.7); ABS Nucleated RBC 0 10^3/ul; Eosinophil % 2.3 % (0-6); Hematocrit 42 % (35-47); Hemoglobin 14.6 g/dl (12.0-16.0); Lymphocyte % 14.6 % (25-47); Mean Corpuscular HGB Conc 35 g/dl (31-36); Mean Corpuscular Hemoglobin 32 pg (27-31); Mean Corpuscular Volume 94 fL (80-97); Mean Platelet Volume 7.1 um3 (7.4-10.4); Nucleated Red Blood Cells % 0; Platelet Count 331 10^3/ul (150-450); Red Blood Count 4.51 10^6/ul (4.00-5.40); Red Cell Distribution Width 14 % (10.5-15); White Blood Count 10.7 10^3/ul (3.5-10.8)
[2018-01-10 11:56] LABS: EGFR Non-African American 76.1 (>60)
--- NOTE | 2018-01-10 12:01 | RAD ---
HISTORY: Chest pain COMPARISONS: August 02, 2017 VIEWS: 1: frontal portable view of the chest at 11:35 AM FINDINGS: LINES AND TUBES: A left-sided chest port is noted with the tip overlying the superior vena cava. CARDIOMEDIASTINAL SILHOUETTE: The cardiomediastinal silhouette is normal for portable technique. PLEURA: The costophrenic angles are sharp. No pleural abnormalities are noted. LUNG PARENCHYMA: The lungs are clear. ABDOMEN: The upper abdomen is clear. There is no subphrenic gas. BONES AND SOFT TISSUES: No bone or soft tissue abnormalities are noted. IMPRESSION: NO ACTIVE CARDIOPULMONARY DISEASE.
[2018-01-10] MEDS ORDERED: Iohexol 350* (CONTRAST) 500 ML MDV IV ONE (12:56)
--- NOTE | 2018-01-10 13:50 | RAD ---
INDICATION: Chest pain. Short of breath. Evaluate for pulmonary embolus. COMPARISON: Chest January 10, 2018; CT chest November 11, 2017 TECHNIQUE: Axial source images were obtained from the thoracic inlet to the hemidiaphragms following administration of [address] angiographic technique was utilized. Coronal and sagittal reconstructed images were acquired. There are mild limitations due to breathing artifact and patient size CHEST FINDINGS: Neck/thyroid: The visualized neck to include the thyroid appear normal. Chest wall: There are no acute abnormalities of the bony thorax or chest wall. The entire chest wasn't included due to patient size. There are postoperative changes in the right breast. There is no supraclavicular, infraclavicular, or axillary lymphadenopathy. Lungs : There is interstitial prominence with areas of air trapping. This may all be related to interstitial congestion although there may be developing interstitial infiltrates. There are no endobronchial lesions. Cardiomediastinal structures: There is no CT evidence of acute central pulmonary embolic disease. Fourth order and distal branches are not well evaluated The heart is top normal in size. There is no pericardial effusion. There is no evidence of aortic aneurysm or dissection. There is no mediastinal or hilar adenopathy. The esophagus appears normal. Pleura : There are no pleural-based masses or effusions. Other: The partially imaged liver shows marked hepatomegaly with hepatic steatosis. IMPRESSION: MILDLY LIMITED STUDY. NO CENTRAL PULMONARY EMBOLI. MILD DIFFUSE INTERSTITIAL AIRSPACE DISEASE WITH AIR TRAPPING. CONSIDER INTERSTITIAL CONGESTION IN THE APPROPRIATE CLINICAL SETTING VERSUS DEVELOPING INTERSTITIAL INFILTRATES.
[2018-01-10] MEDS ORDERED: Levofloxacin TAB* 250 MG PO ONE (13:58)
--- NOTE | 2018-01-10 14:21 | ED ---
Kadi Hook Jacob, scribed for Jamie Skaggs MD on 01/10/18 at 1134 . HPI Chest Pain - HPI Summary HPI Summary: Pt is a 42 y/o female presenting w/ chest pain to ED. Pain onset was 40 minutes [employer] to ED. Pt described pain as constant but there has been some relief since onset. Pain radiates to left side of jaw. Currently rates pain 6/10. Pt currently has stage 4 breast CA that is inoperable w/ metastases to the liver and spine. She started radiation therapy in 2015, chemotherapy in 2017. Pt was taken off chemotherapy 9 weeks ago due to cardiac damage but resumed 2 weeks ago with one dose. She states that she has palpitations. Pt claims no SOB, no LE edema, nor pain w/ deep breaths. Pt has Hx of cardiomyopathy but no Hx of [place] nor CHF. She states that she had a blood clot in her uterine vein, but no clots in her lungs. Claims to have had 3 back surgeries. Her father had a blood clot in his heart. She takes BP medication but no cholesterol medication. She states she smokes 4-5 cigarettes a day, has a prescription for oxycodone, 5 mg, and has a fentanyl patch. 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 - History of Current Complaint Chief Complaint: EDChestPainROMI Time Seen by Provider: 01/10/18 10:50 Hx Obtained From: Patient Hx Last Menstrual Period: 05/25/16 Onset/Duration: Still Present Time of Onset: 10:00 Timing: Constant - some relief since onset Initial Severity: Severe Current Severity: Moderate Pain Intensity: 6 Pain Scale Used: 0-10 Numeric - 6/10 Chest Pain Radiates To:: Jaw - left side Character: Tightness Associated Signs and Symptoms: Positive: Chest Pain, Palpitations. Negative: Swelling - no LE edema - Risk Factors Pulmonary Embolism Risk Factors: Smoking TAD Risk Factors: Smoking AMI/ACS Risk Factors: Smoking - Additional Pertinent History Primary Care Physician: JOSESITO - Allergy/Home Medications Allergies/Adverse Reactions: Allergies Allergy/AdvReac Type Severity Reaction Status Date / Time venlafaxine Allergy Severe Hives/Diff. Verified 09/11/17 09:30 Breathing/I tching Adhesive Tape Allergy skin break Verified 09/11/17 09:28 [Tegaderm Dressing] down prochlorperazine Allergy See Comment Verified 09/11/17 09:37 promethazine Allergy See Comment Verified 09/11/17 09:38 Home Medications: Home Medications Zolpidem Tartrate [Zolpidem Tartrate ER] 12.5 mg PO BEDTIME PRN 01/10/18 [ History Confirmed 01/10/18] PMH/Surg Hx/FS Hx/Imm Hx Endocrine/Hematology History: Denies: Hx Anticoagulant Therapy, Hx Bone Marrow Disease, Hx Diabetes, Hx Sickle Cell Disease, Hx Thyroid Disease, Hx Anemia, Other Endocrine/ Hematological Disorders Cardiovascular History: Reports: Hx Deep Vein Thrombosis - Recent ovarian vein thrombosis, Hx Hypercholesterolemia, Other Cardiovascular Problems/Disorders - ARRHYTHMIA, cardiomyopathy Denies: Hx Angina, Hx Cardiomegaly, Hx Congestive Heart Failure, Hx Coronary Artery Disease, Hx Hypertension, Hx Myocardial Infarction, Hx Pacemaker/ICD, Hx Peripheral Vascular Disease, Hx Rheumatic Fever, Hx Valvular Heart Disease Respiratory History: Reports: Other Respiratory Problems/Disorders - SLEEPS WITH OXYGEN AT NIGHT 2L Denies: Hx Asthma, Hx Chronic Obstructive Pulmonary Disease (COPD), Hx Lung Cancer, Hx Pulmonary Edema, Hx Pulmonary Embolism, Hx Sleep Apnea GI History: Reports: Other GI Disorders - history of ulcerative colitis Denies: Hx Cirrhosis, Hx Crohn's Disease, Hx Gall Bladder Disease, Hx Gastroesophageal Reflux Disease, Hx Gastrointestinal Bleed, Hx Hiatal Hernia, Hx Irritable Bowel, Hx Jaundice, Hx Ulcer, Hx Urosepsis History: Denies: Hx Kidney Infection, Hx Kidney Stones, Hx Renal Disease, Other Problems/Disorders Musculoskeletal History: Reports: Hx Arthritis, Hx Back Problems Denies: Hx Bursitis, Hx Tendonitis, Other Musculoskeletal History Sensory History: Reports: Hx Contacts or Glasses Denies: Hx Cataracts, Hx Glaucoma, Hx Hearing Aid Opthamlomology History: Reports: Hx Contacts or Glasses Denies: Hx Cataracts, Hx Glaucoma Neurological History: Reports: Hx Migraine, Hx Spinal Cord Injury - herniated disc Denies: Hx Dementia, Hx Headaches, Hx Nerve Disease, Hx Seizures, Hx Transient Ischemic Attacks (TIA), Other Neuro Impairments/Disorders Psychiatric History: Reports: Hx Anxiety, Hx Depression, Hx Panic Disorder - ANXIETY, Hx Post Traumatic Stress Disorder, Hx Suicide Attempt - states she has made three attempts; h/o overdose x 2 Denies: Hx Eating Disorder, Hx Substance Abuse - Cancer History Cancer Type, Location and Year: STAGE 4 BREAST 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 X2. appendix. POWER PORT 2017. cholecystectomy Hx Anesthesia Reactions: No - Immunization History Date of Tetanus Vaccine: UTD Date of Influenza Vaccine: NO Infectious Disease History: No Infectious Disease History: Denies: Hx Hepatitis, Hx Human Immunodeficiency Virus (HIV), Traveled Outside the [place] in Last 30 Days - Family History Known Family History: Positive: Cardiac Disease Negative: Hypertension - Social History Alcohol Use: None Hx Substance Use: Yes Substance Use Type: Reports: Prescribed Hx Tobacco Use: Yes Smoking Status (MU): Light Every Day Tobacco Smoker Type: Cigarettes Amount Used/How Often: 1/4 PPD, down from PPD Have You Smoked in the Last Year: Yes Review of Systems Negative: Fever Positive: Palpitations, Chest Pain Negative: Shortness Of Breath, Other - no pain w/ deep breaths Positive: Other - leftside jaw pain. Negative: Edema - no LE edema All Other Systems Reviewed And Are Negative: Yes Physical Exam - Summary Physical Exam Summary: Appearance: Well appearing, no pain distress Skin: warm, dry, reflects adequate perfusion Head/face: normal Eyes: EOMI, BRIAN ENT: normal Neck: supple, non-tender Respiratory: CTA, breath sounds present Cardiovascular: Left sided port, RRR, pulses symmetrical Abdomen: non-tender, soft Bowel Sounds: present Musculoskeletal: normal, strength/ROM intact Neuro: normal, sensory motor intact, A&Ox3 Triage Information Reviewed: Yes Vital Signs On Initial Exam: Initial Vitals Temp Pulse Resp BP Pulse Ox 98.2 F 95 14 117/66 96 01/10/18 10:45 01/10/18 10:45 01/10/18 10:45 01/10/18 10:45 01/10/18 10:45 Vital Signs Reviewed: Yes Diagnostics - Vital Signs Vital Signs Temp Pulse Resp BP Pulse Ox 01/10/18 10:45 98.2 F 95 14 117/66 96 - Laboratory Lab Results: Lab Results 01/10/18 01/10/18 01/10/18 Range/Units 11:24 11:24 11:24 WBC 10.7 (3.5-10.8) 10^3/ul RBC 4.51 (4.00-5.40) 10^6/ul Hgb 14.6 (12.0-16.0) g/dl Hct 42 (35-47) % MCV 94 (80-97) fL MCH 32 H (27-31) pg MCHC 35 (31-36) g/dl RDW 14 (10.5-15) % Plt Count 331 (150-450) 10^3/ul MPV 7.1 L (7.4-10.4) um3 Neut % (Auto) 76.9 (38-83) % Lymph % (Auto) 14.6 L (25-47) % Davis % (Auto) 4.9 (0-7) % Eos % (Auto) 2.3 (0-6) % Baso % (Auto) 1.3 (0-2) % Absolute Neuts (auto) 8.3 H (1.5-7.7) 10^3/ul Absolute Lymphs (auto) 1.6 (1.0-4.8) 10^3/ul Absolute Monos (auto) 0.5 (0-0.8) 10^3/ul Absolute Eos (auto) 0.2 (0-0.6) 10^3/ul Absolute Basos (auto) 0.1 (0-0.2) 10^3/ul Absolute Nucleated RBC 0 10^3/ul Nucleated RBC % 0 Sodium 138 (135-145) mmol/L Potassium 4.2 (3.5-5.0) mmol/L Chloride 105 (101-111) mmol/L Carbon Dioxide 24 (22-32) mmol/L Anion Gap 9 (2-11) mmol/L BUN 10 (6-24) mg/dL Creatinine 0.83 (0.51-0.95) mg/dL Est GFR ( Amer) 92.1 (>60) Est GFR (Non-Af Amer) 76.1 (>60) BUN/Creatinine Ratio 12.0 (8-20) Glucose 113 H (70-100) mg/dL Lactic Acid 2.2 H* (0.5-2.0) mmol/L Calcium 9.4 (8.6-10.3) mg/dL Total Bilirubin 0.30 (0.2-1.0) mg/dL AST 25 (13-39) U/L ALT 33 (7-52) U/L Alkaline Phosphatase 124 H (34-104) U/L Troponin I 0.00 (<0.04) ng/mL B-Natriuretic Peptide ( - 100) pg/mL Total Protein 6.7 (6.4-8.9) g/dL Albumin 3.7 (3.2-5.2) g/dL Globulin 3.0 (2-4) g/dL Albumin/Globulin Ratio 1.2 (1-3) / Range/Units 11:24 WBC (3.5-10.8) 10^3/ul RBC (4.00-5.40) 10^6/ul Hgb (12.0-16.0) g/dl Hct (35-47) % MCV (80-97) fL MCH (27-31) pg MCHC (31-36) g/dl RDW (10.5-15) % Plt Count (150-450) 10^3/ul MPV (7.4-10.4) um3 Neut % (Auto) (38-83) % Lymph % (Auto) (25-47) % Davis % (Auto) (0-7) % Eos % (Auto) (0-6) % Baso % (Auto) (0-2) % Absolute Neuts (auto) (1.5-7.7) 10^3/ul Absolute Lymphs (auto) (1.0-4.8) 10^3/ul Absolute Monos (auto) (0-0.8) 10^3/ul Absolute Eos (auto) (0-0.6) 10^3/ul Absolute Basos (auto) (0-0.2) 10^3/ul Absolute Nucleated RBC 10^3/ul Nucleated RBC % Sodium (135-145) mmol/L Potassium (3.5-5.0) mmol/L Chloride (101-111) mmol/L Carbon Dioxide (22-32) mmol/L Anion Gap (2-11) mmol/L BUN (6-24) mg/dL Creatinine (0.51-0.95) mg/dL Est GFR ( Amer) (>60) Est GFR (Non-Af Amer) (>60) BUN/Creatinine Ratio (8-20) Glucose (70-100) mg/dL Lactic Acid (0.5-2.0) mmol/L Calcium (8.6-10.3) mg/dL Total Bilirubin (0.2-1.0) mg/dL AST (13-39) U/L ALT (7-52) U/L Alkaline Phosphatase (34-104) U/L Troponin I (<0.04) ng/mL B-Natriuretic Peptide 11 ( - 100) pg/mL Total Protein (6.4-8.9) g/dL Albumin (3.2-5.2) g/dL Globulin (2-4) g/dL Albumin/Globulin Ratio (1-3) Result Diagrams: 01/10/18 11:24 01/10/18 11:24 Lab Statement: Any lab studies that have been ordered have been reviewed, and results considered in the medical decision making process. - CT CXR CT Interpretation: No Acute Changes CT Interpretation Completed By: Radiologist - No active cardiopulmonary disease - EKG 1052 Cardiac Rate: NL - 82 bpm EKG Rhythm: Sinus Rhythm ST Segment: Non-Specific EKG Interpretation: normal axis, normal intervals Re-Evaluation - Re-Evaluation First Eval Re-Evaluation Time: 12:20 Change: Improved Comment: Pt reports chest pressure has resolved. O2 saturation was 91 percent on room air. Chest Pain Course/Dx - Course Course Of Treatment: Patient with history of stage IV breast adenocarcinoma with known metastasis to bone and liver presents with chest pain. Troponin has been 0 and EKG is nondiagnostic. Patient's O2 sats were around 91% on room air. She is on anticoagulant (Xarelto). A CT PE was performed and showed no pulmonary emboli but there was what looks like developing interstitial infiltrate. Her BNP is only 11. Patient states that she has home oxygen and would like to be discharged. We discussed the case with her oncologist who agrees with this plan. They will follow up with the patient closely. - Chest Pain Differential Diagnosis/HQI/PQRI: Acute [place], ACS, Angina, CHF, Chest Wall, GI Disease, Lower Respiratory Infection, Pulmonary Edema, Pulmonary Embolism - Diagnoses Provider Diagnoses: Interstitial pneumonia, Metastatic breast cancer, Chest pain - Provider Notifications Discussed Care Of Patient With: Faraz Alicea - admit to oncology Time Discussed With Above Provider: 12:42 Instructed by Provider To: Admit As Inpatient Discharge - Sign-Out/Discharge Documenting (check all that apply): Discharge/Admit/Transfer - admit to oncology [facility] [place] - Discharge Plan Condition: Improved Disposition: HOME Prescriptions: Levofloxacin TAB* [Levaquin TAB*] 750 mg PO DAILY #6 tab Patient Education Materials: Chest Pain (ED), Bacterial Pneumonia (ED) Referrals: Jill Cordova MD [Primary Care Provider] - Additional Instructions: Return with fever, difficulty breathing, increased pain, worse or other concerns as discussed. Call Dr. Cordova today to schedule close follow-up - Billing Disposition and Condition Condition: IMPROVED Disposition: Home The documentation as recorded by the Kadi toro Jacob accurately reflects the service I personally performed and the decisions made by , Jamie Skaggs MD.
[2018-01-10 14:42] VITALS: BP 143/93
== END 2018-01-10 14:41 | disposition home or self-care (01) ==
LOC: ED 10:42
DX: J84.9 Interstitial pulmonary disease, unspecified (principal); R07.9 Chest pain, unspecified; C50.919 Malignant neoplasm of unspecified site of unspecified female breast; C78.7 Secondary malignant neoplasm of liver and intrahepatic bile duct; C79.51 Secondary malignant neoplasm of bone; I42.9 Cardiomyopathy, unspecified; F17.210 Nicotine dependence, cigarettes, uncomplicated; Z79.01 Long term (current) use of anticoagulants; Z86.718 Personal history of other venous thrombosis and embolism; Z99.81 Dependence on supplemental oxygen; Z88.8 Allergy status to other drugs, medicaments and biological substances
CPT/HCPCS: 36415; 71045; 71275; 80053; 83605; 83880; 84484; 85025; 93005; 96374; 99282; A9270-GY; J2270; Q9967

== ENCOUNTER 2018-05-11 08:18 | Emergency (ER) | payer OTHER ==
--- NOTE | 2018-05-11 09:09 | RAD ---
HISTORY: head trauma, on xarelto COMPARISONS: None TECHNIQUE: Multiple contiguous axial CT scans were obtained of the face without intravenous contrast, with coronal and sagittal multiplanar reformations. FINDINGS: BONES: There is no displaced fracture or dislocation. The orbital rim is intact. The zygomatic arch is intact. The pterygoid plates are intact. ORBITS: The globes are round. The optic nerves are symmetric. The extraocular musculature is normal. There is no post septal or intraconal inflammatory change. There is no retrobulbar hematoma. PARANASAL SINUSES: The paranasal sinuses are clear. BRAIN AND SOFT TISSUE: Unremarkable. OTHER: None. IMPRESSION: NO FACIAL FRACTURE.
--- NOTE | 2018-05-11 09:13 | RAD ---
HISTORY: head trauma, on xarelto, subacute trauma, history of metastatic ovarian cancer COMPARISONS: July 09, 2017 TECHNIQUE: Multiple contiguous axial CT scans were obtained of the head without intravenous contrast. FINDINGS: HEMORRHAGE/INFARCT: There is no hemorrhage or acute infarct. MASSES/SHIFT: There is no mass or shift. EXTRA-AXIAL SPACES: There are no extra-axial fluid collections. SULCI AND VENTRICLES: The sulci and ventricles are normal in size and position for the patient's stated age. CEREBRUM: There is focal hypoattenuation of the subcortical white matter of the right frontal lobe best seen on axial image 20 that is new from July 09, 2017 examination. This measures approximately 1.7 x 0.8 cm transversely. There is a probable cortical lesion seen on axial image 22 measuring 1 cm in size. BRAINSTEM: There are no focal parenchymal abnormalities. CEREBELLUM: There are no focal parenchymal abnormalities. VESSELS: The vessels are grossly normal. PARANASAL SINUSES: The paranasal sinuses are clear. ORBITS: The orbits are unremarkable. BONES AND SOFT TISSUE: No bone or soft tissue abnormalities are noted. OTHER: None IMPRESSION: SMALL FOCAL HYPOATTENUATION OF THE RIGHT FRONTAL SUBCORTICAL WHITE MATTER THAT IS NEW FROM THE 2017 EXAMINATION, WITH A PROBABLE CORTICAL LESION, MOST CONSISTENT WITH METASTATIC DISEASE TO THE BRAIN GIVEN THE HISTORY OF OVARIAN MALIGNANCY. THERE IS NO SHIFT.. PRELIMINARY FINDINGS WERE DISCUSSED WITH DR. NAAV AT APPROXIMATELY 9:09 AM ON MAY 11, 2018 .
[2018-05-11] MEDS ORDERED: NS 0.9% 1000 ML* 1,000 ML IV ONE (09:32)
[2018-05-11] MEDS ORDERED: PROCHLORPERAZINE INJ 5 MG/ML 2 ML VIAL IV ONE (09:34)
[2018-05-11] MEDS ORDERED: diPHENhydraMINE IV* 25 MG in NS 0.9% 50 ML* 50 ML IVPB ONE (09:34)
[2018-05-11] MEDS ORDERED: Magnesium Sulfate 2 GM IV* 2 GM/50 ML BAG IVPB ONE (09:35)
--- NOTE | 2018-05-11 09:37 | ED ---
Headache - HPI Summary HPI Summary: This patient is a 42 year old F presenting to [facility] with a chief complaint of headache along the top of her head since 1 day ago. The patient notes that she fell from standing and hit the back of her head on the wall 2 days ago. The patient rates the pain 8/10 in severity. Symptoms aggravated by nothing. Symptoms alleviated by nothing. Patient reports emesis x7 since last night. Patient also notes neck pain at back of neck, shortness of breath, blurry vision , and double vision. Patient denies CP, edema, hematuria, or bloody stool. Patient takes Xarelto. Pt has metastatic breast cancer and has been receiving chemotherapy. Pt has hx of migraines and notes that these symptoms are similar to her typical migraine symptoms but worse. Patient has hx of anxiety and depression. Pt smokes 3 cigarettes per day. - History Of Current Complaint Chief Complaint: EDHeadInjury Stated Complaint: FALL TWO DAYS AGO HEAD PAIN Hx Obtained From: Patient Hx Last Menstrual Period: 05/25/16 Onset/Duration: Sudden Onset, Started days ago - 1 day ago, Still Present Initially Headache Was: Moderate Currently Pain Is: Current Pain Scale(0-10)= - 8 Timing: Days - 1 day Character: Migraine Location of Headache: Other: - top of head Aggravating Factor: Nothing Allevating Factors: Nothing Associated Signs And Symptoms: Nausea, Vomiting, Other (Noted In Comments) - shortness of breath, blurry vision, double vision - Allergies/Home Medications Allergies/Adverse Reactions: Allergies Allergy/AdvReac Type Severity Reaction Status Date / Time venlafaxine Allergy Severe Hives/Diff. Verified 05/11/18 08:38 Breathing/I tching Adhesive Tape Allergy skin break Verified 05/11/18 08:38 [Tegaderm Dressing] down prochlorperazine Allergy See Comment Verified 05/11/18 08:38 promethazine Allergy See Comment Verified 05/11/18 08:38 Home Medications: Home Medications DULoxetine CAP* [Cymbalta CAP*] 30 mg PO BID 05/11/18 [History Confirmed ] PMH/Surg Hx/FS Hx/Imm Hx Endocrine/Hematology History: Denies: Hx Anticoagulant Therapy, Hx Bone Marrow Disease, Hx Diabetes, Hx Sickle Cell Disease, Hx Thyroid Disease, Hx Anemia, Other Endocrine/ Hematological Disorders Cardiovascular History: Reports: Hx Congestive Heart Failure, Hx Deep Vein Thrombosis - Recent ovarian vein thrombosis, Hx Hypercholesterolemia, Other Cardiovascular Problems/Disorders - ARRHYTHMIA Denies: Hx Angina, Hx Cardiomegaly, Hx Coronary Artery Disease, Hx Hypertension, Hx Myocardial Infarction, Hx Pacemaker/ICD, Hx Peripheral Vascular Disease, Hx Rheumatic Fever, Hx Valvular Heart Disease Respiratory History: Reports: Other Respiratory Problems/Disorders - SLEEPS WITH OXYGEN AT NIGHT 2L Denies: Hx Asthma, Hx Chronic Obstructive Pulmonary Disease (COPD), Hx Lung Cancer, Hx Pulmonary Edema, Hx Pulmonary Embolism, Hx Sleep Apnea GI History: Reports: Other GI Disorders - history of ulcerative colitis Denies: Hx Cirrhosis, Hx Crohn's Disease, Hx Gall Bladder Disease, Hx Gastroesophageal Reflux Disease, Hx Gastrointestinal Bleed, Hx Hiatal Hernia, Hx Irritable Bowel, Hx Jaundice, Hx Ulcer, Hx Urosepsis History: Denies: Hx Kidney Infection, Hx Kidney Stones, Hx Renal Disease, Other Problems/Disorders Musculoskeletal History: Reports: Hx Arthritis, Hx Back Problems Denies: Hx Bursitis, Hx Tendonitis, Other Musculoskeletal History Sensory History: Reports: Hx Contacts or Glasses Denies: Hx Cataracts, Hx Glaucoma, Hx Hearing Aid Opthamlomology History: Reports: Hx Contacts or Glasses Denies: Hx Cataracts, Hx Glaucoma Neurological History: Reports: Hx Migraine, Hx Spinal Cord Injury - herniated disc Denies: Hx Dementia, Hx Headaches, Hx Nerve Disease, Hx Seizures, Hx Transient Ischemic Attacks (TIA), Other Neuro Impairments/Disorders Psychiatric History: Reports: Hx Anxiety, Hx Depression, Hx Panic Disorder - ANXIETY, Hx Post Traumatic Stress Disorder, Hx Suicide Attempt - states she has made three attempts; h/o overdose x 2 Denies: Hx Eating Disorder, Hx Substance Abuse - Cancer History Cancer Type, Location and Year: STAGE 4 BREAST 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 X2. appendix. POWER PORT 2017. cholecystectomy Hx Anesthesia Reactions: No - Immunization History Date of Tetanus Vaccine: UTD Date of Influenza Vaccine: NO Infectious Disease History: No Infectious Disease History: Denies: Hx Hepatitis, Hx Human Immunodeficiency Virus (HIV), Traveled Outside the [place] in Last 30 Days - Family History Known Family History: Negative: Cardiac Disease, Hypertension - Social History Alcohol Use: None Hx Substance Use: Yes Substance Use Type: Reports: None Hx Tobacco Use: Yes Smoking Status (MU): Light Every Day Tobacco Smoker Type: Cigarettes Amount Used/How Often: 1/4 PPD, down from PPD Have You Smoked in the Last Year: Yes Review of Systems Negative: Fever, Chills Positive: Blurred Vision, Diplopia Negative: Ear Ache Negative: Chest Pain Positive: Shortness Of Breath Gastrointestinal: Other - negative bloody stool Positive: Vomiting, Nausea Negative: hematuria Musculoskeletal: Other - neck pain Negative: Edema Negative: Bruising Positive: Headache All Other Systems Reviewed And Are Negative: No Physical Exam - Summary Physical Exam Summary: Appearance: Alert, conversive, nontoxic appearing Skin: Warm, dry, no mottling, no rashes, no contusions HEENT: EOMI, PERRL, dry mucous membranes Neck: No masses on the neck, supple, no tenderness Respiratory: Clear to auscultation, breath sounds present, no rales, no rhonchi , no wheezes Cardiovascular: RRR, pulses are symmetrical in both lower and upper extremities Abdomen: Soft, non-tender Bowel Sounds: Present Musculoskeletal: No CVA tenderness, no obvious deformity, moving all extremities in a grossly normal manner Neurological: A&Ox3, CN II-XII Intact, moving all extremities symmetrically, GSC 15 Psychiatric: Normal affect and mood Triage Information Reviewed: Yes Vital Signs On Initial Exam: Initial Vitals Temp Pulse Resp BP Pulse Ox 97 F 116 18 118/64 100 05/11/18 08:22 05/11/18 08:22 05/11/18 08:22 05/11/18 08:22 05/11/18 08:22 Vital Signs Reviewed: Yes Diagnostics - Vital Signs Vital Signs Temp Pulse Resp BP Pulse Ox 05/11/18 08:41 106 28 121/80 92 05/11/18 08:32 107 15 95 05/11/18 08:22 97 F 116 18 118/64 100 - Laboratory Lab Statement: Any lab studies that have been ordered have been reviewed, and results considered in the medical decision making process. - CT CT maxillofacial CT Interpretation: No Acute Changes - no facial fracture. Dr. Nava has reviewed this report. CT Interpretation Completed By: Radiologist CT brain CT Interpretation: Positive (See Comments) - IMPRESSION: SMALL FOCAL HYPOATTENUATION OF THE RIGHT FRONTAL SUBCORTICAL WHITE MATTER THAT IS NEW FROM THE 2017 EXAMINATION, WITH A PROBABLE CORTICAL LESION, MOST CONSISTENT WITH METASTATIC DISEASE TO THE BRAIN GIVEN THE HISTORY OF OVARIAN MALIGNANCY. THERE IS NO SHIFT.. PRELIMINARY FINDINGS WERE DISCUSSED WITH DR. NAVA AT APPROXIMATELY 9:09 AM ON MAY 11, [address] Interpretation Completed By: Radiologist Re-Evaluation - Re-Evaluation 1st re-eval Re-Evaluation Time: 10:25 Change: Unchanged Comment: Discussed imaging results with patient. Pt reports that her pain is 7/ 10. Patient notes that she takes oxytocin and already took her dose today at 04: 00. Patient notes that she has a CT scheduled for 05/16. Headache Course/Dx - Course Course Of Treatment: This patient is a 42 year old F with hx of metastatic breast cancer reporting headache since 1 day ago after hitting the back of her head 2 days ago. Patient takes Xarelto. Pt has hx of migraines and notes that these symptoms are similar to her typical migraine symptoms but worse. CT brain ordered to check for metastases to brain. CT maxillofacial reveals, per radiologist, no facial fracture. CT brain reveals, per radiologist, small focal hypoattenuation of the right frontal subcortical white matter that is new from 2017 examination, with a probable cortical lesion, most consistent with metastatic disease to the brain given the hx of ovarian malignancy. There is no shift. ED physician has reviewed these radiology reports. In the ED course the patient was given IV fluids, benadryl, and magnesium sulfate, decadron, toradol , and dilaudid. We discussed patient care with Robert Keita RN, and they recommended starting the patient on steroids. She recommends IV decadron in the ED in addition to migraine therapy and decadron 4 mg BID. Her office will call the patient to schedule outpatient MRI and follow up this week. Patient will be discharged home with prescription for Decadron 4mg BID and follow up from Robert Keita. The patient is agreeable with this plan. - Diagnoses Provider Diagnoses: Concussion, Brain lesion - Physician Notifications Discussed Care Of Patient With: Robert Keita Time Discussed With Above Provider: 10:45 Instructed by Provider To: Other - EBONY Jacobsen, recommended starting the patient on steroids. She recommends IV decadron in the ED in addition to migraine therapy and decadron 4 mg BID. Her office will call the patient to schedule outpatient MRI and follow up this week Discharge - Sign-Out/Discharge Documenting (check all that apply): Patient Departure - discharge home - Discharge Plan Condition: Stable Disposition: HOME Prescriptions: Dexamethasone TAB* [Decadron TAB*] 4 mg PO BID #14 tab MDD 2 Patient Education Materials: Acute Headache (DC) Referrals: Jill Cordova MD [Primary Care Provider] - Robert Keita PA [Physician Supplier Engineer] - Additional Instructions: Please follow up with Dr. Cordova in the oncology clinic this week. She will schedule an outpatient MRI of your brain to further evaluate the lesion noted on your right frontal lobe of your brain. take the decadron as instructed. return if worse or any new symptoms. - Billing Disposition and Condition Condition: STABLE Disposition: Home - Attestation Statements Document Initiated by Janiya: Yes Documenting Scribe: Brenda Brandon Provider For Whom Charlottee is Documenting (Include Credential): Shanda Nava MD Scribe Attestation: Brenda Hook, scribed for Shanda Nava MD on 05/11/18 at 1708. Scribe Documentation Reviewed: Yes Provider Attestation: The documentation as recorded by the [email or web address] accurately reflects the service I personally performed and the decisions made by , Shanda Nava MD
[2018-05-11] MEDS ORDERED: diPHENhydraMINE IV* 50 MG/ML 1 ml VIAL (BENADRYL) IV ONE (10:02)
[2018-05-11] MEDS ORDERED: Ketorolac INJ* 30 MG/ML 1 ML VIAL IV PUSH ONE (10:45)
[2018-05-11] MEDS ORDERED: Dexamethasone IV* 4 MG/ML 1 ML (4 MG) IV SLOW PU ONE (10:46)
[2018-05-11] MEDS ORDERED: HYDROmorphone INJ* 2 MG/ML CARPUJECT SYRINGE IV SLOW PU ONE (10:57)
[2018-05-11] MEDS ORDERED: Dexamethasone TAB* 4 MG ONE (12:19)
[2018-05-11] MEDS ORDERED: Dexamethasone TAB* 4 MG PO ONE (12:25)
[2018-05-11 12:49] VITALS: BP 0/0
== END 2018-05-11 12:48 | disposition home or self-care (01) ==
LOC: ED 08:18
DX: S06.0X9A Concussion with loss of consciousness of unspecified duration, initial encounter (principal); W18.30XA Fall on same level, unspecified, initial encounter; Y92.9 Unspecified place or not applicable; G93.9 Disorder of brain, unspecified; R11.2 Nausea with vomiting, unspecified; R06.02 Shortness of breath; H53.8 Other visual disturbances; H53.2 Diplopia; C50.919 Malignant neoplasm of unspecified site of unspecified female breast; C78.7 Secondary malignant neoplasm of liver and intrahepatic bile duct; C79.51 Secondary malignant neoplasm of bone; Z86.718 Personal history of other venous thrombosis and embolism; Z79.01 Long term (current) use of anticoagulants; Z88.8 Allergy status to other drugs, medicaments and biological substances; Z91.048 Other nonmedicinal substance allergy status; F41.0 Panic disorder [episodic paroxysmal anxiety]; F32.9 Major depressive disorder, single episode, unspecified; F17.210 Nicotine dependence, cigarettes, uncomplicated
CPT/HCPCS: 70450; 70486; 96365; 96366; 96375; 99283; J0780; J1100; J1170; J1200; J1885; J3475; J8540

== ENCOUNTER → 2018-05-13 12:34 | Emergency (ER) | payer OTHER ==
[~2018-05-13 12:34] MED LIST changes: -Buffered Lidocaine 0.9% SYRIN* 5 ML/SYR SYRINGE INTRADERM ONE; -Famotidine TAB* 20 MG PO ONE; +HYDROmorphone TAB* 4 MG ONE; +HYDROmorphone TAB* 4 MG PO ONE; +Ketorolac INJ* 30 MG/ML 1 ML VIAL IV PUSH ONE; -Levalbuterol 0.63MG/3ML NEB* UNIT OF USE INH ONE; +Magnesium Sulfate 2 GM IV* 2 GM/50 ML BAG IVPB ONE; +Metoclopramide IV* 5 MG/ML 2 ML VIAL IV SLOW PU ONE; +diPHENhydraMINE IV* 50 MG/ML 1 ml VIAL (BENADRYL) SLOW PUSH ONE; +oxyCODONE/Acetamin 5/325 MG* TAB PO ONE
[2018-05-13 14:48] LABS: Hematocrit 43 % (35-47); Hemoglobin 14.8 g/dl (12.0-16.0); Mean Corpuscular HGB Conc 35 g/dl (31-36); Mean Corpuscular Hemoglobin 32 pg (27-31); Mean Corpuscular Volume 94 fL (80-97); Mean Platelet Volume 7.7 um3 (7.4-10.4); Platelet Count 390 10^3/ul (150-450); Red Blood Count 4.59 10^6/ul (4.00-5.40); Red Cell Distribution Width 15 % (10.5-15)
[2018-05-13 15:02] LABS: EGFR Non-African American 80.6 (>60)
--- NOTE | 2018-05-13 16:06 | RAD ---
HISTORY: HEADACHE COMPARISONS: May 11, 2018 , MRI dated May 12, 2018 TECHNIQUE: Multiple contiguous axial CT scans were obtained of the head without intravenous contrast. FINDINGS: HEMORRHAGE/INFARCT: There is no hemorrhage or acute infarct. MASSES/SHIFT: Again noted is a small right frontal mass with associated vasogenic edema. There is no shift. EXTRA-AXIAL SPACES: There are no extra-axial fluid collections. SULCI AND VENTRICLES: The sulci and ventricles are normal in size and position for the patient's stated age. CEREBRUM: As noted above, there is a small right frontal mass with associated vasogenic edema measuring approximately 1.5 cm in size. BRAINSTEM: There are no focal parenchymal abnormalities. CEREBELLUM: There are no focal parenchymal abnormalities. VESSELS: The vessels are grossly normal. PARANASAL SINUSES: The paranasal sinuses are clear. ORBITS: The orbits are unremarkable. BONES AND SOFT TISSUE: No bone or soft tissue abnormalities are noted. OTHER: None IMPRESSION: STABLE SMALL RIGHT FRONTAL MASS WITH ASSOCIATED VASOGENIC EDEMA. THERE IS NO SHIFT. NO ACUTE INTRACRANIAL PATHOLOGY.
--- NOTE | 2018-05-13 17:45 | ED ---
Headache - HPI Summary HPI Summary: Patient is a 42 y/o F w/ c/o right sided VÁZQUEZ. She has metastatic breast cancer that has spread to her liver, spine, and recently her brain. She was seen at [facility] [facility] for VÁZQUEZ three days ago as well. Patient was discharged to home but reports that she still had VÁZQUEZ since discharge. VÁZQUEZ worsened this morning. Patient reports nausea, difficulty with balance, vomiting and difficulty with memory. Fevers, diarrhea, blurry vision, slurred speech, vision changes are denied. She states that she has been on Herceptin for seven weeks. Patient reports no surgeries for CA yet. Patient takes oxycodone 5 mg for VÁZQUEZ and receives steroids as well. On triage, pain is rated 8/10, nothing is noted to aggravate/alleviate Sx. - History Of Current Complaint Chief Complaint: EDHeadache Stated Complaint: HEAD ACHE Time Seen by Provider: 05/13/18 15:28 Hx Obtained From: Patient Hx Last Menstrual Period: 05/25/16 Onset/Duration: Still Present, Worse Since - this morning Currently Pain Is: Severe - 8/10 Timing: Constant, Days Location of Headache: Other: - right side Aggravating Factor: Nothing Allevating Factors: Nothing Associated Signs And Symptoms: Nausea, Vomiting - Allergies/Home Medications Allergies/Adverse Reactions: Allergies Allergy/AdvReac Type Severity Reaction Status Date / Time venlafaxine Allergy Severe Hives/Diff. Verified 05/12/18 10:21 Breathing/I tching Adhesive Tape Allergy skin break Verified 05/12/18 10:21 [Tegaderm Dressing] down prochlorperazine Allergy See Comment Verified 05/12/18 10:21 promethazine Allergy See Comment Verified 05/12/18 10:21 PMH/Surg Hx/FS Hx/Imm Hx Endocrine/Hematology History: Denies: Hx Anticoagulant Therapy, Hx Bone Marrow Disease, Hx Diabetes, Hx Sickle Cell Disease, Hx Thyroid Disease, Hx Anemia, Other Endocrine/ Hematological Disorders Cardiovascular History: Reports: Hx Congestive Heart Failure, Hx Deep Vein Thrombosis - Recent ovarian vein thrombosis, Hx Hypercholesterolemia, Other Cardiovascular Problems/Disorders - ARRHYTHMIA Denies: Hx Angina, Hx Cardiomegaly, Hx Coronary Artery Disease, Hx Hypertension, Hx Myocardial Infarction, Hx Pacemaker/ICD, Hx Peripheral Vascular Disease, Hx Rheumatic Fever, Hx Valvular Heart Disease Respiratory History: Reports: Other Respiratory Problems/Disorders - SLEEPS WITH OXYGEN AT NIGHT 2L Denies: Hx Asthma, Hx Chronic Obstructive Pulmonary Disease (COPD), Hx Lung Cancer, Hx Pulmonary Edema, Hx Pulmonary Embolism, Hx Sleep Apnea GI History: Reports: Other GI Disorders - history of ulcerative colitis Denies: Hx Cirrhosis, Hx Crohn's Disease, Hx Gall Bladder Disease, Hx Gastroesophageal Reflux Disease, Hx Gastrointestinal Bleed, Hx Hiatal Hernia, Hx Irritable Bowel, Hx Jaundice, Hx Ulcer, Hx Urosepsis History: Denies: Hx Kidney Infection, Hx Kidney Stones, Hx Renal Disease, Other Problems/Disorders Musculoskeletal History: Reports: Hx Arthritis, Hx Back Problems Denies: Hx Bursitis, Hx Tendonitis, Other Musculoskeletal History Sensory History: Reports: Hx Contacts or Glasses Denies: Hx Cataracts, Hx Glaucoma, Hx Hearing Aid Opthamlomology History: Reports: Hx Contacts or Glasses Denies: Hx Cataracts, Hx Glaucoma Neurological History: Reports: Hx Migraine, Hx Spinal Cord Injury - herniated disc Denies: Hx Dementia, Hx Headaches, Hx Nerve Disease, Hx Seizures, Hx Transient Ischemic Attacks (TIA), Other Neuro Impairments/Disorders Psychiatric History: Reports: Hx Anxiety, Hx Depression, Hx Panic Disorder - ANXIETY, Hx Post Traumatic Stress Disorder, Hx Suicide Attempt - states she has made three attempts; h/o overdose x 2 Denies: Hx Eating Disorder, Hx Substance Abuse - Cancer History Cancer Type, Location and Year: STAGE 4 BREAST 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 X2. appendix. POWER PORT 2017. cholecystectomy. LEFT FOOT-SURGICALLY REMOVED TOOTHPICK 2000 Hx Anesthesia Reactions: No - Immunization History Date of Tetanus Vaccine: UTD Date of Influenza Vaccine: NO Infectious Disease History: No Infectious Disease History: Denies: Hx Hepatitis, Hx Human Immunodeficiency Virus (HIV), Traveled Outside the [place] in Last 30 Days - Family History Known Family History: Negative: Cardiac Disease, Hypertension - Social History Alcohol Use: None Hx Substance Use: Yes Substance Use Type: Reports: None Hx Tobacco Use: Yes Smoking Status (MU): Light Every Day Tobacco Smoker Type: Cigarettes Amount Used/How Often: 1/4 PPD, down from PPD Have You Smoked in the Last Year: Yes Review of Systems Negative: Fever, Chills Positive: Other - NEGATIVE: vision changes . Negative: Erythema Negative: Sore Throat Negative: Chest Pain Negative: Shortness Of Breath, Cough Positive: Vomiting, Nausea. Negative: Abdominal Pain, Diarrhea Negative: dysuria, hematuria Negative: Myalgia, Edema Negative: Rash Neurological: Other - POSITIVE: difficulty with balance and memory Positive: Headache. Negative: Slurred Speech All Other Systems Reviewed And Are Negative: Yes Physical Exam - Summary Physical Exam Summary: Constitutional: Well-developed, Well-nourished, Alert. (-) Distressed Skin: Warm, Dry HENT: Normocephalic; Atraumatic Eyes: photophobia, right pupil is 5 mm, left is 4 mm Neck: Musculoskeletal ROM normal neck. (-) JVD, (-) Stridor, (-) Tracheal deviation Cardio: Rhythm regular, rate normal, Heart sounds normal; Intact distal pulses; The pedal pulses are 2+ and symmetric. Radial pulses are 2+ and symmetric. (-) Murmur Pulmonary/Chest wall: Effort normal. (-) Respiratory distress, (-) Wheezes, (-) Rales Abd: Soft. (-) Tenderness, (-) Distension, (-) Guarding, (-) Rebound Musculoskeletal: (-) Edema Lymph: (-) Cervical adenopathy Neuro: Alert, Oriented x3, Strength normal, Cranial nerves II-XII are grossly intact. (-) Dysmetria, (-) Nystagmus, (-) Ataxia by finger to nose testing, (-) Sensory deficit. GCS 15. Psych: Mood and affect Normal Triage Information Reviewed: Yes Vital Signs On Initial Exam: Initial Vitals Temp Pulse Resp BP Pulse Ox 98.4 F 65 18 140/69 95 05/13/18 12:40 05/13/18 12:40 05/13/18 12:40 05/13/18 12:40 05/13/18 12:40 Vital Signs Reviewed: Yes Diagnostics - Vital Signs Vital Signs Temp Pulse Resp BP Pulse Ox 05/13/18 17:02 59 111/56 95 05/13/18 17:00 59 93 05/13/18 16:32 63 97/41 94 05/13/18 16:02 59 116/55 92 05/13/18 16:00 58 95 05/13/18 15:32 62 119/70 96 05/13/18 15:31 60 93 05/13/18 14:29 97.3 F 98 18 144/81 96 05/13/18 12:40 98.4 F 65 18 140/69 95 - Laboratory Lab Results: Lab Results 05/13/18 05/13/18 Range/Units 14:27 14:27 WBC 18.0 H (3.5-10.8) 10^3/ul RBC 4.59 (4.00-5.40) 10^6/ul Hgb 14.8 (12.0-16.0) g/dl Hct 43 (35-47) % MCV 94 (80-97) fL MCH 32 H (27-31) pg MCHC 35 (31-36) g/dl RDW 15 (10.5-15) % Plt Count 390 (150-450) 10^3/ul MPV 7.7 (7.4-10.4) um3 Sodium 136 (135-145) mmol/L Potassium 4.4 (3.5-5.0) mmol/L Chloride 105 (101-111) mmol/L Carbon Dioxide 24 (22-32) mmol/L Anion Gap 7 (2-11) mmol/L BUN 15 (6-24) mg/dL Creatinine 0.79 (0.51-0.95) mg/dL Est GFR ( Amer) 97.5 (>60) Est GFR (Non-Af Amer) 80.6 (>60) BUN/Creatinine Ratio 19.0 (8-20) Glucose 191 H (70-100) mg/dL Calcium 9.2 (8.6-10.3) mg/dL Total Bilirubin 0.30 (0.2-1.0) mg/dL AST 28 (13-39) U/L ALT 49 (7-52) U/L Alkaline Phosphatase 146 H (34-104) U/L Total Protein 7.5 (6.4-8.9) g/dL Albumin 4.1 (3.2-5.2) g/dL Globulin 3.4 (2-4) g/dL Albumin/Globulin Ratio 1.2 (1-3) Result Diagrams: 05/13/18 14:27 05/13/18 14:27 Lab Statement: Any lab studies that have been ordered have been reviewed, and results considered in the medical decision making process. - CT brain CT CT Interpretation Completed By: Radiologist Summary of CT Findings: IMPRESSION: STABLE SMALL RIGHT FRONTAL MASS WITH ASSOCIATED VASOGENIC EDEMA. THERE IS NO SHIFT. NO. ACUTE INTRACRANIAL PATHOLOGY. Headache Course/Dx - Course Course Of Treatment: Patient is a 42 y/o F w/ c/o right sided VÁZQUEZ. She has metastatic breast cancer that has spread to her liver, spine, and recently her brain. She was seen at [facility] [place] for VÁZQUEZ three days ago as well. Patient was discharged to home but reports that she still had VÁZQUEZ since discharge. VÁZQUEZ worsened this morning. Patient reports nausea, difficulty with balance, vomiting and difficulty with memory. Fevers, diarrhea, blurry vision, slurred speech, vision changes are denied. She states that she has been on Herceptin for seven weeks. Patient reports no surgeries for CA yet. On physical exam, patient is noted to be photophobic, right pupil is 5 mm, left is 4 mm. During ED course, patient received decadron 8 mg IV SLOW PUSH, Benadryl 50 mg SLOW PUSH , dilaudid 4 mg PO ONCE, toradol 30 mg IV PUSH ONCE, magnesium sulfate 2 gm IV, reglan 10 mg IV SLOW PUSH, Percocet 5/325 2 tab PO ONCE. Labs showed WBC 18, glucose 191, alk phos 146. BRAIN CT IMPRESSION: STABLE SMALL RIGHT FRONTAL MASS WITH ASSOCIATED VASOGENIC EDEMA. THERE IS NO SHIFT. NO. ACUTE INTRACRANIAL PATHOLOGY. 1713 - Dr. Gill had been attempted to be contacted a few times. SISAL OPERATOR Patricia Cordero was contacted, she will consult with Dr. Gill and come to ED to discuss disposition of patient. Patient was signed out to Dr. Miller pending disposition. Dx of metastatic breast CA, brain mass. - Diagnoses Provider Diagnoses: Brain mass, Metastatic breast cancer - Physician Notifications Discussed Care Of Patient With: Cresencio Gill Time Discussed With Above Provider: 17:13 Instructed by Provider To: Other - 1713 - Dr. Gill had been attempted to be contacted a few times. Patricia Cordero was contacted, she will consult with Dr. Gill and come to ED to discuss disposition with patient. Discharge - Sign-Out/Discharge Documenting (check all that apply): Sign-Out Patient Signing out patient TO: Marlo Miller Receiving patient FROM: Parish Chew - Discharge Plan Prescriptions: HYDROmorphone TAB* [Dilaudid TAB*] 2 mg PO Q4H PRN #12 tab MDD 12 mg PRN Reason: Headache/Pain LORazepam TAB(*) [Ativan 0.5 MG TAB (*)] 0.5 mg PO Q4H PRN #12 tab MDD 3 mg PRN Reason: anxiety/pain/VÁZQUEZ Patient Education Materials: Acute Headache (ED) Referrals: Patricia Cordero SISAL OPERATOR [Medical Doctor] - Additional Instructions: Per Patricia, you will be followed in the oncology clinic, she has called in a couple of prescriptions for you for the pain. - Attestation Statements Document Initiated by Scribe: Yes Documenting Scribe: Nino Wallis Provider For Whom Scribe is Documenting (Include Credential): Parish Chew MD Scribe Attestation: I, Nino Wallis , scribed for Parish Chew MD on 05/13/18 at 2049.
--- NOTE | 2018-05-13 17:49 | PN ---
Progress Note - Progress Note Date of Service: 05/13/18 SOAP: Subjective: []Pt. presented to ED today with progressive VÁZQUEZ, worse this AM than the last 2 days. Diagnosed with new LAST SORTER met to right frontal lobe (1.4 cm on MRI yesterday with associated edema, mild, and very small questionable satellite lesion below this mass) and has been on dex for >48 hrs. Seen yesterday in office with cont.'d VÁZQUEZ and dex. increased from 4 mg PO BID to TID, no improvement today. Denies progressive changes in any other symptoms (ie: no vision changes, no cognitive changes) though still noting difficulty with balance, albeit she has not fallen recently. She denies progressive depression and any suicidal ideation, though admits she is saddened by her progressive disease. Current pain meds: Fentanyl patch Oxycodone Aleive See med rec. for full home med list Objective: [] Vital Signs Temp Pulse Resp BP Pulse Ox 97.3 F 59 18 111/56 95 05/13/18 14:29 05/13/18 17:02 05/13/18 14:29 05/13/18 17:02 05/13/18 17:02 A&Ox3, EOMI, PERRLA Communicating clearly and making needs known HRR, SR on tele Resp. even and non-labored without audible wheeze or rhonchi SOW and moves independently in bed Laboratory Results - last 24 hr 05/13/18 05/13/18 14:27 14:27 WBC 18.0 H RBC 4.59 Hgb 14.8 Hct 43 MCV 94 MCH 32 H MCHC 35 RDW 15 Plt Count 390 MPV 7.7 Sodium 136 Potassium 4.4 Chloride 105 Carbon Dioxide 24 Anion Gap 7 BUN 15 Creatinine 0.79 Est GFR ( Amer) 97.5 Est GFR (Non-Af Amer) 80.6 BUN/Creatinine Ratio 19.0 Glucose 191 H Calcium 9.2 Total Bilirubin 0.30 AST 28 ALT 49 Alkaline Phosphatase 146 H Total Protein 7.5 Albumin 4.1 Globulin 3.4 Albumin/Globulin Ratio 1.2 Assessment: []Unfortunate 42 yo female with metastatic hormone and HER2 receptor positive breast cancer with new LAST SORTER lesion. She presented to the ER with progressive VÁZQUEZ that does not appear to be related to her new mass as she does not have severe edema and has limited response to dex. thus far. We discussed management at length and she is very amicable to outpatient attempt at pain management stating , "I don't like hospitals, I think I would feel better at home." Plan: []1. D/C oxycodone and start diluadid 2 mg q4hrs PRN - 2 day supply sent in (hx. of narcotic mis-use) 2. D/C xanax and trial lorazepam as it may have synergistic affect with narcotics - reviewed precautions with controlled substances at length, verbal contract made with pt. re: plan D/C from ER to home, reviewed plan and S/S requiring return with Pushpa and her father FU this commercial lines underwriter in 2 days, 10/25 AM (we will call her with appt)
[2018-05-13 18:07] VITALS: BP 114/56
--- NOTE | 2018-05-13 20:25 | ED ---
Progress - Progress Note Progress Note: Patient was received as a sign out from Dr. Chew to Dr. Miller at shift change pending Patricia Cordero coming to ED to evaluate patient. 1741 - Patricia Cordero states that patient does not want to be admitted, patient will be discharged to home and follow up in oncology clinic. Dr. Miller is agreeable with this. Course/Dx - Course Course Of Treatment: Patient was received as a sign out from Dr. Chew to Dr. Miller at shift change pending Patricia Cordero coming to ED to evaluate patient. 1741 - Patricia Cordero states that patient does not want to be admitted, patient will be discharged to home and follow up in oncology clinic. Dr. Miller is agreeable with this. - Diagnoses Provider Diagnoses: Brain mass, Metastatic breast cancer Discharge - Sign-Out/Discharge Documenting (check all that apply): Patient Departure - discharge - Discharge Plan Condition: Guarded Disposition: HOME Prescriptions: HYDROmorphone TAB* [Dilaudid TAB*] 2 mg PO Q4H PRN #12 tab MDD 12 mg PRN Reason: Headache/Pain LORazepam TAB(*) [Ativan 0.5 MG TAB (*)] 0.5 mg PO Q4H PRN #12 tab MDD 3 mg PRN Reason: anxiety/pain/VÁZQUEZ Patient Education Materials: Acute Headache (ED) Referrals: Patricia Cordero NP [Medical Doctor] - Additional Instructions: Per Patricia, you will be followed in the oncology clinic, she has called in a couple of prescriptions for you for the pain. - Attestation Statements Document Initiated by Scribe: Yes Documenting Scribe: Nino Wallis Provider For Whom Janiya is Documenting (Include Credential): Marlo Miller MD Scribe Attestation: Nino Hook , scribed for Marlo Miller MD on 05/13/18 at 4.
== END | disposition home or self-care (01) ==
LOC: ED 12:34
DX: R51 Headache (principal); C50.919 Malignant neoplasm of unspecified site of unspecified female breast; Z17.0 Estrogen receptor positive status [ER+]; G93.9 Disorder of brain, unspecified
CPT/HCPCS: 36415; 70450; 80053; 85027; 96374; 96375; 99284; A9270-GY; J1100; J1200; J1885; J2765; J3475

== ENCOUNTER 2018-06-07 07:43 | Emergency (ER) | payer OTHER ==
[2018-06-07] MEDS ORDERED: HYDROmorphone INJ1* 1 MG/ML SYRINGE IV SLOW PU ONE ×2 (07:56→11:35)
[2018-06-07] MEDS ORDERED: Ondansetron INJ* 2 MG/ML VIAL IV ONE ×2 (07:56→11:26)
[2018-06-07] MEDS ORDERED: NS 0.9% 1000 ML* 1,000 ML IV ONE (07:56)
--- NOTE | 2018-06-07 08:26 | ED ---
Headache - HPI Summary HPI Summary: Pt is a 42 y/o F with hx metastatic breast cancer to the brain s/p gamma knife at [facility] approx 2 weeks ago, who presents to ED c/o progresively worse left sided head pain since 3 days ago. Rates her pain 8/10 at triage and describes it as aching. She had an office visit with Dr. Cordova on 06/05/18 for her headache and was started on dexamethasone 4mg tid, but the pain worsened last night. Notes diaphoresis, cough with sputum, nausea, vomiting, and "soft spot" on left parietal scalp. Denies fever, chills, chest pain, or dizziness. Denies trauma, fall or syncope. Pt took two 2 mg Dilaudid pills this morning at 0100 without relief. She has continued the dexamethasone as directed. PMHx of migraines, but notes that this not a migraine since she does not have the usual sensitivity to light or sound that accompanies her migraines. PSHx of gamma knife surgery on the right side of head approximately 2 weeks ago. Following the procedure the right side of her head has felt a little better, but left side has worsened. Denies use of anti-seizure medication , but is on Xarelto for blood clots in the uterine artery. Vital signs while in room: HR 98 bpm, BP 109/69. Home Medications Medication Instructions Recorded Confirmed Type Ondansetron TAB* [Zofran 4 MG Tab*] 4 mg PO Q4HR PRN 10/02/16 05/13/18 History Cholecalciferol (Vitamin D3) 2 cap PO QPM 02/21/17 05/13/18 History [Vitamin D3] Rivaroxaban TAB(*) [Xarelto 20 mg] 20 mg PO QPM 03/02/17 05/13/18 History fentaNYL PATCH 50 MCG/HR* 50 mcg TRANSDERM Q72H #10 patch 07/11/17 05/13/18 Rx [Duragesic PATCH 50 Mcg/Hr*] MDD 50 mcg Anastrozole (NF) [Arimidex (NF)] 1 mg PO QPM 08/14/17 05/13/18 History Brexpiprazole [Rexulti] 2 mg PO QPM 08/14/17 05/13/18 History Docusate CAP* [Colace Cap*] 200 mg PO BID 08/14/17 05/13/18 History Leuprolide Acetate [Lupron 11.25 mg IM SEE INSTRUCTIONS 08/14/17 05/13/18 History Depot-Ped] Mirtazapine TAB* [Remeron TAB*] 30 mg PO QPM 08/14/17 05/13/18 History Naproxen Sod/Diphenhydramine 1 tab PO ONCE PRN 08/14/17 05/13/18 History [Aleve PM 220-25 mg] Zolpidem Tartrate [Zolpidem 12.5 mg PO BEDTIME PRN 01/10/18 05/13/18 History Tartrate ER] DULoxetine DR CAP* [Cymbalta CAP*] 30 mg PO BID 05/11/18 05/13/18 History Dexamethasone TAB* [Decadron TAB*] 4 mg PO BID #14 tab MDD 2 05/11/18 05/13/18 Rx HYDROmorphone TAB* [Dilaudid TAB*] 2 mg PO Q4H PRN #12 tab MDD 12 mg 05/13/18 Rx LORazepam TAB(*) [Ativan 0.5 MG 0.5 mg PO Q4H PRN #12 tab MDD 3 mg 05/13/18 Rx TAB (*)] - History Of Current Complaint Chief Complaint: EDHeadache Stated Complaint: HEAD PAIN Time Seen by Provider: 06/07/18 07:54 Hx Obtained From: Patient Hx Last Menstrual Period: on Lupron, no menses Onset/Duration: Gradual Onset, Started days ago, Still Present, Worse Since - last night Initially Headache Was: Severe Currently Pain Is: Current Pain Scale(0-10)= - 8/10, Severe Timing: Constant Character: Migraine - Negative, Unable To Describe - Aching, left sided Location of Headache: Parietal, Other: - left side Aggravating Factor: Nothing Allevating Factors: Nothing Associated Signs And Symptoms: Dizziness - negative, Nausea, Vomiting, Fever - negative, Other (Noted In Comments) - diaphoresis, cough with sputum, "soft spot " on left parietal - Allergies/Home Medications Allergies/Adverse Reactions: Allergies Allergy/AdvReac Type Severity Reaction Status Date / Time venlafaxine Allergy Severe Hives/Diff. Verified 05/12/18 10:21 Breathing/I tching Adhesive Tape Allergy skin break Verified 05/12/18 10:21 [Tegaderm Dressing] down prochlorperazine Allergy See Comment Verified 05/12/18 10:21 promethazine Allergy See Comment Verified 05/12/18 10:21 PMH/Surg Hx/FS Hx/Imm Hx Previously Healthy: No - metastatic breast cancer to brain and other organs Endocrine/Hematology History: Denies: Hx Anticoagulant Therapy, Hx Bone Marrow Disease, Hx Diabetes, Hx Sickle Cell Disease, Hx Thyroid Disease, Hx Anemia, Other Endocrine/ Hematological Disorders Cardiovascular History: Reports: Hx Congestive Heart Failure, Hx Deep Vein Thrombosis - Recent ovarian vein thrombosis, Hx Hypercholesterolemia, Other Cardiovascular Problems/Disorders - ARRHYTHMIA Denies: Hx Angina, Hx Cardiomegaly, Hx Coronary Artery Disease, Hx Hypertension, Hx Myocardial Infarction, Hx Pacemaker/ICD, Hx Peripheral Vascular Disease, Hx Rheumatic Fever, Hx Valvular Heart Disease Respiratory History: Reports: Hx Sleep Apnea, Other Respiratory Problems/ Disorders - SLEEPS WITH OXYGEN AT NIGHT 2L, can't wear CPAP device Denies: Hx Asthma, Hx Chronic Obstructive Pulmonary Disease (COPD), Hx Lung Cancer, Hx Pulmonary Edema, Hx Pulmonary Embolism GI History: Reports: Other GI Disorders - history of ulcerative colitis Denies: Hx Cirrhosis, Hx Crohn's Disease, Hx Gall Bladder Disease, Hx Gastroesophageal Reflux Disease, Hx Gastrointestinal Bleed, Hx Hiatal Hernia, Hx Irritable Bowel, Hx Jaundice, Hx Ulcer, Hx Urosepsis History: Denies: Hx Kidney Infection, Hx Kidney Stones, Hx Renal Disease, Other Problems/Disorders Musculoskeletal History: Reports: Hx Arthritis, Hx Back Problems Denies: Hx Bursitis, Hx Tendonitis, Other Musculoskeletal History Sensory History: Reports: Hx Contacts or Glasses Denies: Hx Cataracts, Hx Glaucoma, Hx Hearing Aid Opthamlomology History: Reports: Hx Contacts or Glasses Denies: Hx Cataracts, Hx Glaucoma Neurological History: Reports: Hx Migraine, Other Neuro Impairments/Disorders - brain mets,s/p gamma knife surg; hx herniated disc Denies: Hx Dementia, Hx Headaches, Hx Nerve Disease, Hx Seizures, Hx Transient Ischemic Attacks (TIA) Psychiatric History: Reports: Hx Anxiety, Hx Depression, Hx Panic Disorder, Hx Post Traumatic Stress Disorder, Hx Suicide Attempt Denies: Hx Eating Disorder, Hx Substance Abuse - Cancer History Cancer Type, Location and Year: 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 Date and Location of Last Treatment: gamma knife right brain Apr 2018[facility] Hx Chemotherapy: Yes Hx Radiation Therapy: No - Surgical History Surgery Procedure, Year, and Place: l-spine surgery 3x's. X2. appendix. POWER PORT 2017. cholecystectomy. LEFT FOOT-SURGICALLY REMOVED TOOTHPICK 2000 Hx Anesthesia Reactions: No - Immunization History Date of Tetanus Vaccine: UTD Date of Influenza Vaccine: NO Infectious Disease History: No Infectious Disease History: Denies: Hx Hepatitis, Hx Human Immunodeficiency Virus (HIV), Traveled Outside the [place] in Last 30 Days - Family History Known Family History: Negative: Cardiac Disease, Hypertension - Social History Lives: With Family Alcohol Use: None Hx Substance Use: Yes Substance Use Type: Reports: None Hx Tobacco Use: Yes Smoking Status (MU): Light Every Day Tobacco Smoker Type: Cigarettes Amount Used/How Often: 1/4 PPD, down from PPD Have You Smoked in the Last Year: Yes Review of Systems Positive: Skin Diaphoresis. Negative: Fever, Chills Negative: Chest Pain Positive: Cough - With sputum Positive: Vomiting, Nausea Positive: no symptoms reported Musculoskeletal: Negative Skin: Other - Soft spot on left parietal, reported and palpated by pt Neurological: Other - Negative: dizziness Positive: Headache Psychological: Normal All Other Systems Reviewed And Are Negative: Yes Physical Exam - Summary Physical Exam Summary: Appearance: Ill-appearing, moderate pain distress, well-nourished Skin: Warm, color reflects adequate perfusion, dry, port left anterior chest is moveable, but palpable Head: Normal Head/Face inspection, atraumatic, scalp tenderness left parietal 2 cm area, but no "soft spot" or hematoma noted by Dr. Maurice Eyes: Conjunctiva clear, PERRL, EOMI, no nystagmus ENT: Normal inspection Neck: Supple, no nodes, no JVD Respiratory: no respiratory distress, scattered expiratory wheezes throughout bilaterally Cardio: RRR, No murmur, pulses normal, brisk capillary refill Abdomen: Soft, nontender Bowel sounds: Present Musculoskeletal: Strength Intact/ROM intact, no calf tenderness, no edema. Psychological: Normal Neuro: A&O x3, CN II-XII intact, motor function 5/5, sensation intact, cerebellar normal, speech is fluent, no focal deficit Triage Information Reviewed: Yes Vital Signs On Initial Exam: Initial Vitals Temp Pulse Resp BP Pulse Ox 98.2 F 112 18 134/55 93 06/07/18 07:45 06/07/18 07:45 11/17/18 07:45 06/07/18 07:45 06/07/18 07:45 Vital Signs Reviewed: Yes Diagnostics - Vital Signs Vital Signs Temp Pulse Resp BP Pulse Ox 06/07/18 07:45 98.2 F 112 18 134/55 93 - Laboratory Result Diagrams: 06/07/18 08:36 06/07/18 08:36 Lab Statement: Any lab studies that have been ordered have been reviewed, and results considered in the medical decision making process. - Radiology CXR Radiology Interpretation Completed By: Radiologist - IMPRESSION: Stigmata of obstructive lung disease. No acute pulmonary or cardiac process evident. ED Physician reviewed this report. - CT Brain CT CT Interpretation Completed By: Radiologist - IMPRESSION: No significant change in 1.3 cm AP by 2.5 cm transverse region of hypodensity at the RIGHT frontal lobe weston matter white matter junction at the level of the centrum semiovale corresponding with the site of tumor on prior MRI. Negative for mass effect. No additional intra or extra-axial lesions evident. ED Physician reviewed this report. Re-Evaluation - Re-Evaluation First Eval Re-Evaluation Time: 09:22 Change: Improved Comment: Pain level is now at 6/10 after dilaudid and zofran. Vital signs while in room: HR 92 bpm, BP 98/60. Second Eval Re-Evaluation Time: 11:25 Change: Improved Comment: headache is a 4/10 after IV dexamethasone 8 mg IV. Father is with pt. Pt wants to go home. Was able to doze off. Advised to increase dexamethsone per Dr. Paredes. Will give one more dose of dilaudid 1mg and zofran 4mg IV and then discharge to home. Headache Course/Dx - Course Course Of Treatment: Pt is a 42 y/o F who presents to ED c/o left sided head pain since 3 days ago. She visited Dr. Cordova on 06/05/18 for her headache, but the pain worsened last night. Notes diaphoresis, cough with sputum, nausea, vomiting, and soft spot on left parietal scalp. Denies fever, chills, chest pain , or dizziness, trauma, fall, or syncope. PMHx of migraines. PSHx of gamma knife surgery on the right side of head approximately 2 weeks ago. Denies use of anti-seizure medication, but is on Xarelto for blood clots in the uterine artery. Has been taking dexamethasone 4mg tid, and dilaudid po and zofran as needed. Vital signs while in room: HR 98 bpm, BP 109/69. CXR showed stigmata of obstructive lung disease, and no acute pulmonary or cardiac disease, done because of pt's c/o cough, and pt is still a smoker. Brain CT showed no significant change, no mass effect, nothing to account for "soft spot" in parietal area reported by pt. In ED pt had a normal mental status and normal neurologic exam. During the ED course pt was given fluids, dexamethasone 8mg IV , Dilaudid 1mg IV x 2, and Zofran 4mg IV x 2. Liver function tests were abnormal , and markers for inflammation are elevated, and lactic acid was elevated. These do not need emergent treatment, and pt's RN and I feel the increased lactic acid may be from the tourniquet being in place for quite a while during pts blood draw, and IV access. We did not access pts port because it was moveable in her chest, and pt and the nurse made a joint decision to try a peripheral IV, which was successful. Pt diagnosed with acute headache, metastatic breast cancer, intractable headache and cough. Dr. Paredes saw pt in the ED and recommended increase dexamethasone to 8mg bid with her next dose of 8mg tonight at dinnertime. Dr. Paredes's note was reviewed by me after pt was discharged, and he also noted that pt should stop xarelto. This was not communicated by Dr. Maurice to pt or in pt's discharge instructions, nor was his plan for LP on 06/09/[address] Maurice or in Dr. Maurice's written discharge instructions. But Dr. Paredes did see pt himself in ED, so I expect that he explained this to pt. Pt will be discharged home with her father and is agreeable with this plan. - Diagnoses Differential Diagnosis/HQI/PQRI: Subdural Hematoma, Meningitis, Subarachnoid Hemorrhage, Other - worsening brain mets, cerebral edema Provider Diagnoses: Acute headache, Metastatic breast cancer, Intractable headache, Cough - Physician Notifications Discussed Care Of Patient With: Alec Paredes Time Discussed With Above Provider: 09:15 Instructed by Provider To: Other - Give 8 mg IV dexamethasone. 11:28: agrees with discharge. Take dexamethasone 8mg bid, take next dose dexamethason 8mg at dinnertime. Discharge - Sign-Out/Discharge Documenting (check all that apply): Patient Departure - Discharge - Discharge Plan Condition: Stable Disposition: HOME Patient Education Materials: Acute Headache (ED) Referrals: Jill Cordova MD [Primary Care Provider] - 2 Days Additional Instructions: You were given dilaudid a total of 2mg IV and zofran 8mg IV for headache and nausea, and after the CT brain result did not show any acute abnormality, we consulted with Dr. Paredes, supervisor train operations for Dr. Cordova, and he recommended that you receive dexamethasone 8mg IV which helped your headache. Your liver function tests are abnormal, and markers for inflammation are elevated, and your lactic acid was elevated. These do not need emergent treatment, and we feel the increased lactic acid is from the tourniquet being in place for awhile during your blood draw, and IV access. We did not access your port because it was moveable in your chest, and you and the nurse made a joint decision to try a peripheral IV, which was successful. Dr. Paredes wants you to increase your dexamethasone to 8 mg twice a day. Take dexamethasone 8mg tonight at dinner time. You should continue your other medications as directed. Follow up with Dr. Cordova in 1-2 days if no improvement. Return to the ER if any new or worsening symptoms. - Billing Disposition and Condition Condition: STABLE Disposition: Home - Attestation Statements Document Initiated by Janiya: Yes Documenting Scribe: Shahriar Dickson Provider For Whom Janiya is Documenting (Include Credential): Dr. Alondra Maurice MD Scribe Attestation: I, Shahriar Dickson, scribed for Dr. Alondra Maurice MD on 06/15/18 at 1533. Scribe Documentation Reviewed: Yes Provider Attestation: The documentation as recorded by the Shahriar toro accurately reflects the service I personally performed and the decisions made by me, Dr. Alondra Maurice MD
[2018-06-07 08:59] LABS: ABS Basophils 0.1 10^3/ul (0-0.2); ABS Eosinophils 0.3 10^3/ul (0-0.6); ABS Lymphocytes 2.2 10^3/ul (1.0-4.8); ABS Monocytes 0.6 10^3/ul (0-0.8); ABS Neutrophils 5.2 10^3/ul (1.5-7.7); ABS Nucleated RBC 0 10^3/ul; Eosinophil % 3.5 % (0-6); Hematocrit 40 % (35-47); Hemoglobin 13.7 g/dl (12.0-16.0); Lymphocyte % 26.5 % (25-47); Mean Corpuscular HGB Conc 34 g/dl (31-36); Mean Corpuscular Hemoglobin 32 pg (27-31); Mean Corpuscular Volume 94 fL (80-97); Mean Platelet Volume 7.3 fL (7.4-10.4); Nucleated Red Blood Cells % 0.1; Platelet Count 319 10^3/ul (150-450); Red Blood Count 4.24 10^6/ul (4.00-5.40); Red Cell Distribution Width 15 % (10.5-15); White Blood Count 8.5 10^3/ul (3.5-10.8)
[2018-06-07 09:13] LABS: EGFR Non-African American 88.3 (>60)
[2018-06-07] MEDS ORDERED: Dexamethasone IV* 4 MG/ML 1 ML (4 MG) IV SLOW PU ONE (09:29)
[2018-06-07] MEDS ORDERED: HYDROmorphone INJ* 2 MG/ML CARPUJECT SYRINGE IV SLOW PU ONE (11:26)
[2018-06-07 12:24] VITALS: BP 119/65
--- NOTE | 2018-06-07 12:25 | PN ---
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 C/o VÁZQUEZ increased for one week. Subjective: []Had had some VÁZQUEZ for past month. 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 Over past week has had VÁZQUEZ on Dex 4 mg tid. Worse and worse. No N/V, no focal neurological symptoms. In ER dilaudid and took Dex 8 IV, VÁZQUEZ improved. Medications Include: Xarelto 20 mg po daily DE 4 tid PmHx: MBC, recently re-started chemotherapy. Obesity. Sughx: Gamma knife recently SochHx: In ER with partner and has support at home. Objective: [] Vital Signs Temp Pulse Resp BP Pulse Ox 98.2 F 90 14 118/72 93 06/07/18 07:45 06/07/18 11:26 06/07/18 11:46 06/07/18 11:26 06/07/18 11:26 HEENT: No thrush, PERRL, fundi no edema CTA RRR S1S2 Neuro no neck stiffness, non focal. Assessment: []42 yo H2N + BC progressive. VÁZQUEZ on dex and concerned for leptomeningeal disease. My be edema post gamma knife. Plan: []1. Ok to go home 2. Hold Xeralto 3 Increase Dex to 8 mg po bid 4. Continue to take Dilaudid 5. Will plan LP for Saturday.
== END 2018-06-07 12:15 | disposition home or self-care (01) ==
LOC: ED 07:43
DX: R51 Headache (principal); C50.919 Malignant neoplasm of unspecified site of unspecified female breast; E66.9 Obesity, unspecified; R05 Cough; I50.9 Heart failure, unspecified; Z86.718 Personal history of other venous thrombosis and embolism; Z79.01 Long term (current) use of anticoagulants; E78.00 Pure hypercholesterolemia, unspecified; C78.7 Secondary malignant neoplasm of liver and intrahepatic bile duct; C79.51 Secondary malignant neoplasm of bone; F17.210 Nicotine dependence, cigarettes, uncomplicated
CPT/HCPCS: 36415; 70450; 71045; 80053; 83605; 85025; 85652; 86140; 96361; 96374; 96375; 96376; 99284; 99285; J1100; J1170; J2405

== ENCOUNTER 2018-06-07 18:12 | Inpatient (IN) | payer OTHER ==
[2018-06-07] MEDS ORDERED: NS 0.9% 1000 ML* 1,000 ML IV ONE ×2 (18:58→21:45)
[2018-06-07] MEDS ORDERED: HYDROmorphone INJ* 1 MG/ML CARPUJECT SYRINGE IV ONE ×2 (18:58→20:55)
[2018-06-07] MEDS ORDERED: Ondansetron INJ* 2 MG/ML VIAL IV ONE (18:58)
[2018-06-07] MEDS ORDERED: HYDROmorphone INJ1* 1 MG/ML SYRINGE ONE (19:02)
[2018-06-07] MEDS ORDERED: HYDROmorphone INJ1* 1 MG/ML SYRINGE IV SLOW PU ONE (19:22)
[2018-06-07 19:28] LABS: ABS Basophils 0.1 10^3/ul (0-0.2); ABS Eosinophils 0 10^3/ul (0-0.6); ABS Lymphocytes 1.1 10^3/ul (1.0-4.8); ABS Monocytes 0.3 10^3/ul (0-0.8); ABS Nucleated RBC 0 10^3/ul; Eosinophil % 0.1 % (0-6); Hematocrit 41 % (35-47); Hemoglobin 13.7 g/dl (12.0-16.0); Lymphocyte % 11.3 % (25-47); Mean Corpuscular HGB Conc 34 g/dl (31-36); Mean Corpuscular Hemoglobin 32 pg (27-31); Mean Corpuscular Volume 94 fL (80-97); Mean Platelet Volume 7.2 fL (7.4-10.4); Nucleated Red Blood Cells % 0.1; Platelet Count 348 10^3/ul (150-450); Red Blood Count 4.35 10^6/ul (4.00-5.40); Red Cell Distribution Width 14 % (10.5-15); White Blood Count 9.4 10^3/ul (3.5-10.8)
[2018-06-07 19:45] LABS: EGFR Non-African American 77.2 (>60)
[2018-06-07 20:20] LABS: Urine Appearance Cloudy; Urine Blood Negative (Negative); Urine Color Yellow; Urine Ketones Trace (Negative); Urine Protein Negative (Negative); Urine Red Blood Cell Absent (Absent); Urine Specific Gravity 1.023 (1.010-1.030); Urine Urobilinogen Negative (Negative); Urine White Blood Cell 2+(11-20/hpf) (Absent)
[2018-06-07] MEDS ORDERED: HYDROmorphone INJ* 0.5 MG/0.5 ML SYRINGE ONE (21:11)
[2018-06-07] MEDS ORDERED: HYDROmorphone INJ* 0.5 MG/0.5 ML SYRINGE IV SLOW PU ONE (21:13)
[2018-06-07] MEDS ORDERED: Ondansetron INJ* 2 MG/ML VIAL IV PRN (21:42)
[2018-06-07] MEDS ORDERED: Ondansetron TAB* 4 MG PO PRN (21:50)
[2018-06-07] MEDS ORDERED: fentaNYL PATCH 50 MCG/HR TRANSDERM SCH (22:00)
[2018-06-07] MEDS ORDERED: Acetaminophen TAB* 325 MG PO PRN (22:01)
[2018-06-07] MEDS: NS 0.9% 1000 ML* 1,000 ML IV SCH (22:29)
[2018-06-07] MEDS: Heparin VIAL(*) 5000 UNITS/ML VIAL (FIVE THOUSAND) SUBCUT SCH (22:30)
[2018-06-07] MEDS: HYDROmorphone INJ1* 1 MG/ML SYRINGE IV SLOW PU PRN (23:13)
[2018-06-07] MEDS: Mirtazapine TAB* 15 MG PO SCH (23:14)
[2018-06-07] MEDS: ALPRAZolam TAB* 0.5 MG PO PRN (23:14)
[2018-06-07] MEDS: Docusate CAP* 100 MG PO SCH (23:14)
[2018-06-07] MEDS: DULoxetine DR CAP* 30 MG CAP.DR PO SCH (23:14)
[2018-06-07] MEDS: Dexamethasone TAB* 4 MG PO SCH (23:14)
[2018-06-07] MEDS: Metoprolol Tartrate TAB* 50 mg PO SCH (23:15)
[2018-06-07] MEDS: traZODone TAB* 100 MG PO SCH (23:15)
[2018-06-07] MEDS: CMCS:Anastrozole (NF) 1 MG TAB PO SCH (23:25)
--- NOTE | 2018-06-08 01:38 | HP ---
CC: Dr. Cordova * [facility] HISTORY AND PHYSICAL: DATE OF ADMISSION: 06/07/18 PRIMARY CARE PHYSICIAN: Dr. Cordova. ATTENDING PHYSICIAN: Randolph Dudley MD * (dictation provided by Zeynep Mckinnon NP) CHIEF COMPLAINT: Headache with syncopal episode. HISTORY OF PRESENT ILLNESS: Ms. Guevara is a 42-year-old female with a past medical history of breast cancer with metastasis to the spine, liver, and brain as well as COPD, depression, and anxiety who presents today to hospital with concern for syncopal episode in the setting of the headache. Ms Guevara was here in our emergency room earlier today with complaint of the headache. She has recent history of gamma knife radiation 2 weeks ago at [facility] in treatment of brain metastasis to the right frontal lobe. She reports that since that time , she has had worsening intermittent left-sided headache. However, over the past 5 days or so, the headache has been pretty relentless. She was seen by Dr. Cordova on 06/05/18 out of concern for this headache and there was note made of a left parietal lobe soft area. The intention was for CT brain at that time, but this was not possible due to need for insurance pre-approval. The patient presented here to the emergency room with concern for unrelenting headache this morning. At that time, she was seen by Dr. Hendrickson from the Oncology team. CT brain was performed and it confirmed no significant change noted from prior, but there is an 1.3 cm x 2.5 cm transverse region hypodensity at the right frontal lobe. She was examined by the ED provider and by Dr. Hendrickson and recommendation was for her to return to home as her headache had improved with administration of Dilaudid and steroids in the ED. It was recommended that she increase her dexamethasone from 4 mg to 8 mg twice daily and she continue with her home p.o. Dilaudid and then she would like to be scheduled for an LP on Saturday. The patient states she was feeling better at the time of her discharge; however, on returning home and getting into the shower, she suddenly began to feel very dizzy. The next thing she remembers was sitting up and being told that she had slumped over in the shower chair. She was then brought back to the hospital via EMS. She states at this time her headache is about a 6/10. It is along the left side of her head. It is not consistent with her previous history of migraines as she has no photophobia or phonophobia. She denies any fevers, chills. She has had no cough. She has some mild nausea, but none now. No diarrhea. In the emergency room, Ms. Guevara has labs, which show normal white blood cell count. She has mildly elevated acid of 2.8. Her liver enzymes are mildly elevated from her baseline with AST 106, ALT 109, alk phos 182. Urine shows 2+ leuk esterase, but no bacteria. She denies symptoms of dysuria or frequency. Her flu swab was sent earlier. It was negative. PAST MEDICAL HISTORY: 1. History of breast cancer with metastasis to the spine, liver and brain. 2. COPD. 3. History of uterine artery blood clot, on chronic anticoagulation. 4. Depression. 5. Anxiety. 6. Chronic pain. 7. History of night terrors. 8. Insomnia. 9. Constipation. 10. Migraines. MEDICATIONS: Outpatient are: 1. Cholecalciferol 2 caps p.o. q.p.m. 2. Hydromorphone 2 to 4 mg p.o. q.4 hours p.r.n. 3. Depo shot q.3 months. 4. Naproxen 1 tab p.o. p.r.n. 5. Zolpidem 12.5 mg p.o. at bedtime p.r.n. 6. Alprazolam 1 mg p.o. 4 times a day p.r.n. 7. Anastrazole 1 mg p.o. q.a.m. 8. Rexulti 2 mg p.o. q.p.m. 9. Dexamethasone 8 mg p.o. b.i.d. (newly increased dose today). 10. Docusate 200 mg p.o. b.i.d. 11. Duloxetine DR 30 mg p.o. b.i.d. 12. Fentanyl patch 50 mcg q.72 hours. 13. Mirtazapine 30 mg p.o. q.a.m. 14. Ondansetron 4 mg p.o. q.4 hours p.r.n. 15. Trazodone 400 mg p.o. at bedtime. 16. XARELTO HELD TODAY PER DR. HENDRICKSON. ALLERGIES: To VENLAFAXINE, ADHESIVE TAPE, PROCHLORPERAZINE and PROMETHAZINE. FAMILY HISTORY: Her dad is alive and well and is at the bedside today. No other history was available today. SOCIAL HISTORY: The patient is a continued smoker. She smokes about 5 cigarettes a day. No report of alcohol or drug use. She lives with support from her dad, Rafael, who is the healthcare proxy. She has 2 children, who are teenagers. REVIEW OF SYSTEMS: A 14-point review of systems was completed with Ms. Guevara and all those not mentioned above were negative. PHYSICAL EXAMINATION GENERAL: Ms. Guevara is lying in the bed. She is in no acute distress. Her dad is at the bedside. VITAL SIGNS: Temperature 98.6, pulse rate 92, respiratory rate 16, O2 saturation 93% on room air, blood pressure 127/64. LUNGS: Clear to auscultation bilaterally with no accessory muscle use and good aeration. HEART: S1, S2. No murmur, rub, or gallop and regular. ABDOMEN: Soft, nontender with bowel sounds positive x4. EXTREMITIES: No cyanosis. No edema. NEURO: She is alert. She is oriented x3. She moves all extremities equally. There is no facial asymmetry or focal weakness. Extraocular movements are intact. SKIN: Intact. DIAGNOSTIC STUDIES/LAB DATA: WBC 9.4, hemoglobin 13.7, hematocrit 41, platelet count 348. Sodium 136, potassium 4.7, chloride 104, serum bicarbonate 24, BUN 12, creatinine 0.82, glucose 176, lactic acid 3.8. AST 106, ALT 109, alk phos 182, TSH 0.44. Urine shows 2+ leuk esterase, but no evidence of bacteria. The influenza swab is negative. The CT brain drawn earlier today is read as follows: "No significant change in the 1.3 cm AP x 2.5 cm transverse region of the hypodensity at the right frontal lobe. Zamorano matter with white matter junction at the level of the centrum semiovale corresponding with the site of tumor on prior MRI. Negative for mass effect. No addition intra or extra-axial lesions are present. ASSESSMENT AND PLAN: Ms. Guevara is a 42-year-old female with an unfortunate history of breast cancer with metastasis to the spine, liver and brain, now with recurrence of cancer with recent gamma knife radiation to the brain and plans for resumption of chemotherapy in 2 weeks who presents to the hospital with intractable headache and a syncopal episode. Our plan will be for observation in the hospital for the followin. Syncope. The patient will be monitored on telemetry unit. I suspect that the syncope is likely multifactorial given her stress, anxiety, depression, cancer diagnosis, headache and the fact that she was in the shower in the hot water. We will rule out arrhythmia. I do not see any indication for an echocardiogram as she just had 1 done in April. I see no evidence of acute infection. Though she does have a 2+ leuk esterase, she has no bacteria in the urine. 2. Headache. Plan for Dilaudid p.r.n. along with acetaminophen and ibuprofen. I have counseled the patient the Dilaudid is often not effective for headaches and that she will need to also intersperse Tylenol and ibuprofen p.r.n., will likely be more effective. 3. Chronic pain. Continue home medications. 4. Depression, anxiety, and insomnia. Continue home medications. 5. DVT prophylaxis is with heparin subcu to start tonight with SCDs. The patient has been asked to hold Xarelto under direction of Dr. Hendrickson with consideration for possible LP. 6. Code status is full code. TIME SPENT: Approximately 60 minutes were spent on the admission of this patient, more than half the time spent with the patient at the bedside reviewing the events leading up to this hospitalization, performing the physical examination, and reviewing the plan of care. ZEYNEP MCKINNON NP [id number]/[facility] #: [id number] SANKET
--- NOTE | 2018-06-08 02:40 | ED ---
Syncope/Near Syncope - HPI Summary HPI Summary: Patient with history of metastatic breast cancer with metastases to brain and liver complains of chronic intractable headache and 1 episode of syncope in the shower tonight. Patient states syncopized for a few seconds in sitting position with no fall, denies any injury or symptoms. Denies prior history of syncope, or postictal period post-syncope. Denies history of seizures, fever, cough, sore throat, CP, SOB, N/V/D, abdominal pain, change in urine, change in BM. Patient was seen here this morning for intractable headache, was discharged home. History of Gamma knife radiation surgery to right side brain 2 weeks ago. Last chemotherapy treatment 7 months ago, states cancer recently returned. Patient advised to stop Xarelto at earlier visit. Medical history is chronic pain, breast cancer, blood clots in urine arteries, COPD. - History Of Current Complaint Chief Complaint: EDSyncope Time Seen by Provider: 06/07/18 18:26 Hx Obtained From: Patient, Family/Silk Spotter Onset/Duration: Sudden Onset Timing: Seconds Context: Unwitnessed Activity At Onset: Other Associated Head Trauma: No Aggravating Factor(s): Nothing Alleviating Factor(s): Nothing Associated Signs And Symptoms: Headache - Allergies/Home Medications Allergies/Adverse Reactions: Allergies Allergy/AdvReac Type Severity Reaction Status Date / Time venlafaxine Allergy Severe Hives/Diff. Verified 05/12/18 10:21 Breathing/I tching Adhesive Tape Allergy skin break Verified 05/12/18 10:21 [Tegaderm Dressing] down prochlorperazine Allergy See Comment Verified 05/12/18 10:21 promethazine Allergy See Comment Verified 05/12/18 10:21 Home Medications: Home Medications ALPRAZolam TAB* [Xanax TAB*] 1 mg PO QID PRN 06/07/18 [History Confirmed ] Dexamethasone TAB* [Decadron TAB*] 8 mg PO BID MDD 2 06/07/18 [History Confirmed 06/07/18] HYDROmorphone TAB* [Dilaudid TAB*] 2 - 4 mg PO Q4H PRN MDD 8 tabs 06/07/18 [ History Confirmed 06/07/18] Metoprolol Tartrate TAB* [Lopressor TAB*] 50 mg PO BID 06/07/18 [History Confirmed 06/07/18] traZODone TAB* [Desyrel TAB*] 400 mg PO BEDTIME 06/07/18 [History Confirmed ] PMH/Surg Hx/FS Hx/Imm Hx Endocrine/Hematology History: Denies: Hx Anticoagulant Therapy, Hx Bone Marrow Disease, Hx Diabetes, Hx Sickle Cell Disease, Hx Thyroid Disease, Hx Anemia, Other Endocrine/ Hematological Disorders Cardiovascular History: Reports: Hx Congestive Heart Failure, Hx Deep Vein Thrombosis - Recent ovarian vein thrombosis, Hx Hypercholesterolemia, Other Cardiovascular Problems/Disorders - ARRHYTHMIA Denies: Hx Angina, Hx Cardiomegaly, Hx Coronary Artery Disease, Hx Hypertension, Hx Myocardial Infarction, Hx Pacemaker/ICD, Hx Peripheral Vascular Disease, Hx Rheumatic Fever, Hx Valvular Heart Disease Respiratory History: Reports: Other Respiratory Problems/Disorders - SLEEPS WITH OXYGEN AT NIGHT 2L Denies: Hx Asthma, Hx Chronic Obstructive Pulmonary Disease (COPD), Hx Lung Cancer, Hx Pulmonary Edema, Hx Pulmonary Embolism, Hx Sleep Apnea GI History: Reports: Other GI Disorders - history of ulcerative colitis Denies: Hx Cirrhosis, Hx Crohn's Disease, Hx Gall Bladder Disease, Hx Gastroesophageal Reflux Disease, Hx Gastrointestinal Bleed, Hx Hiatal Hernia, Hx Irritable Bowel, Hx Jaundice, Hx Ulcer, Hx Urosepsis History: Denies: Hx Kidney Infection, Hx Kidney Stones, Hx Renal Disease, Other Problems/Disorders Musculoskeletal History: Reports: Hx Arthritis, Hx Back Problems Denies: Hx Bursitis, Hx Tendonitis, Other Musculoskeletal History Sensory History: Reports: Hx Contacts or Glasses Denies: Hx Cataracts, Hx Glaucoma, Hx Hearing Aid Opthamlomology History: Reports: Hx Contacts or Glasses Denies: Hx Cataracts, Hx Glaucoma Neurological History: Reports: Hx Migraine, Hx Spinal Cord Injury - herniated disc Denies: Hx Dementia, Hx Headaches, Hx Nerve Disease, Hx Seizures, Hx Transient Ischemic Attacks (TIA), Other Neuro Impairments/Disorders Psychiatric History: Reports: Hx Anxiety, Hx Depression, Hx Panic Disorder - ANXIETY, Hx Post Traumatic Stress Disorder, Hx Suicide Attempt - states she has made three attempts; h/o overdose x 2 Denies: Hx Eating Disorder, Hx Substance Abuse - Cancer History Cancer Type, Location and Year: STAGE 4 BREAST 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 X2. appendix. POWER PORT 2017. cholecystectomy. LEFT FOOT-SURGICALLY REMOVED TOOTHPICK 2000 Hx Anesthesia Reactions: No - Immunization History Date of Tetanus Vaccine: UTD Date of Influenza Vaccine: NO Infectious Disease History: No Infectious Disease History: Denies: Hx Hepatitis, Hx Human Immunodeficiency Virus (HIV), Traveled Outside the [place] in Last 30 Days - Family History Known Family History: Negative: Cardiac Disease, Hypertension - Social History Alcohol Use: None Hx Substance Use: Yes Substance Use Type: Reports: None Hx Tobacco Use: Yes Smoking Status (MU): Light Every Day Tobacco Smoker Type: Cigarettes Amount Used/How Often: 1/4 PPD, down from PPD Have You Smoked in the Last Year: Yes Review of Systems Constitutional: Negative Eyes: Negative ENT: Negative Cardiovascular: Negative Respiratory: Negative Gastrointestinal: Negative Genitourinary: Negative Musculoskeletal: Negative Skin: Negative Positive: Headache, Syncope Psychological: Normal All Other Systems Reviewed And Are Negative: Yes Physical Exam Triage Information Reviewed: Yes Vital Signs On Initial Exam: Initial Vitals Temp Pulse Resp BP Pulse Ox 97.0 F 102 18 133/72 94 06/07/18 18:15 06/07/18 18:15 06/07/18 18:15 06/07/18 18:15 06/07/18 18:15 Vital Signs Reviewed: Yes Appearance: Positive: Well-Appearing Skin: Positive: Warm Head/Face: Positive: Normal Head/Face Inspection Eyes: Positive: Normal ENT: Positive: Normal ENT inspection Neck: Positive: Supple Respiratory/Lung Sounds: Positive: Clear to Auscultation Cardiovascular: Positive: Normal Abdomen Description: Positive: Nontender Musculoskeletal: Positive: Normal Neurological: Positive: Normal Psychiatric: Positive: Normal AVPU Assessment: Alert - [place] Coma Scale Best Eye Response: 4 - Spontaneous Best Motor Response: 6 - Obeys Commands Best Verbal Response: 5 - Oriented Coma Scale Total: 15 Diagnostics - Vital Signs Vital Signs Temp Pulse Resp BP Pulse Ox 06/07/18 21:13 16 06/07/18 19:22 16 06/07/18 19:03 91 20 127/64 93 06/07/18 19:00 90 16 91 06/07/18 18:33 95 20 130/78 90 06/07/18 18:28 96 17 91 06/07/18 18:15 97.0 F 102 18 133/72 94 - Laboratory Lab Results: Lab Results 06/07/18 06/07/18 06/07/18 Range/Units 19:15 19:15 19:15 WBC 9.4 (3.5-10.8) 10^3/ul RBC 4.35 (4.00-5.40) 10^6/ul Hgb 13.7 (12.0-16.0) g/dl Hct 41 (35-47) % MCV 94 (80-97) fL MCH 32 H (27-31) pg MCHC 34 (31-36) g/dl RDW 14 (10.5-15) % Plt Count 348 (150-450) 10^3/ul MPV 7.2 L (7.4-10.4) fL Neut % (Auto) 85.0 H (38-83) % Lymph % (Auto) 11.3 L (25-47) % [place] % (Auto) 2.7 (0-7) % Eos % (Auto) 0.1 (0-6) % Baso % (Auto) 0.9 (0-2) % Absolute Neuts (auto) 8.0 H (1.5-7.7) 10^3/ul Absolute Lymphs (auto) 1.1 (1.0-4.8) 10^3/ul Absolute Monos (auto) 0.3 (0-0.8) 10^3/ul Absolute Eos (auto) 0 (0-0.6) 10^3/ul Absolute Basos (auto) 0.1 (0-0.2) 10^3/ul Absolute Nucleated RBC 0 10^3/ul Nucleated RBC % 0.1 Sodium 136 (135-145) mmol/L Potassium 4.7 (3.5-5.0) mmol/L Chloride 104 (101-111) mmol/L Carbon Dioxide 24 (22-32) mmol/L Anion Gap 8 (2-11) mmol/L BUN 12 (6-24) mg/dL Creatinine 0.82 (0.51-0.95) mg/dL Est GFR ( Amer) 93.4 (>60) Est GFR (Non-Af Amer) 77.2 (>60) BUN/Creatinine Ratio 14.6 (8-20) Glucose 176 H (70-100) mg/dL Lactic Acid 2.8 H* (0.5-2.0) mmol/L Calcium 9.3 (8.6-10.3) mg/dL Magnesium 1.9 (1.9-2.7) mg/dL Total Bilirubin 0.30 (0.2-1.0) mg/dL AST 106 H (13-39) U/L ALT 109 H (7-52) U/L Alkaline Phosphatase 182 H (34-104) U/L Troponin I 0.00 (<0.04) ng/mL B-Natriuretic Peptide (<=100) pg/mL Total Protein 6.9 (6.4-8.9) g/dL Albumin 3.8 (3.2-5.2) g/dL Globulin 3.1 (2-4) g/dL Albumin/Globulin Ratio 1.2 (1-3) TSH 0.44 (0.34-5.60) mcIU/mL Urine Color Urine Appearance Urine pH (5-9) Ur Specific [place] (1.010-1.030) Urine Protein (Negative) Urine Ketones (Negative) Urine Blood (Negative) Urine Nitrate (Negative) Urine Bilirubin (Negative) Urine Urobilinogen (Negative) Ur Leukocyte Esterase (Negative) Urine WBC (Auto) (Absent) Urine RBC (Auto) (Absent) Ur Squamous Epith Cells (Absent) Urine Bacteria (Absent) Urine Glucose (Negative) Influenza A (Rapid) (Negative) Influenza B (Rapid) (Negative) 06/07/18 06/07/18 06/07/18 Range/Units 19:15 19:50 20:05 WBC (3.5-10.8) 10^3/ul RBC (4.00-5.40) 10^6/ul Hgb (12.0-16.0) g/dl Hct (35-47) % MCV (80-97) fL MCH (27-31) pg MCHC (31-36) g/dl RDW (10.5-15) % Plt Count (150-450) 10^3/ul MPV (7.4-10.4) fL Neut % (Auto) (38-83) % Lymph % (Auto) (25-47) % [place] % (Auto) (0-7) % Eos % (Auto) (0-6) % Baso % (Auto) (0-2) % Absolute Neuts (auto) (1.5-7.7) 10^3/ul Absolute Lymphs (auto) (1.0-4.8) 10^3/ul Absolute Monos (auto) (0-0.8) 10^3/ul Absolute Eos (auto) (0-0.6) 10^3/ul Absolute Basos (auto) (0-0.2) 10^3/ul Absolute Nucleated RBC 10^3/ul Nucleated RBC % Sodium (135-145) mmol/L Potassium (3.5-5.0) mmol/L Chloride (101-111) mmol/L Carbon Dioxide (22-32) mmol/L Anion Gap (2-11) mmol/L BUN (6-24) mg/dL Creatinine (0.51-0.95) mg/dL Est GFR ( Amer) (>60) Est GFR (Non-Af Amer) (>60) BUN/Creatinine Ratio (8-20) Glucose (70-100) mg/dL Lactic Acid (0.5-2.0) mmol/L Calcium (8.6-10.3) mg/dL Magnesium (1.9-2.7) mg/dL Total Bilirubin (0.2-1.0) mg/dL AST (13-39) U/L ALT (7-52) U/L Alkaline Phosphatase (34-104) U/L Troponin I (<0.04) ng/mL B-Natriuretic Peptide 13 (<=100) pg/mL Total Protein (6.4-8.9) g/dL Albumin (3.2-5.2) g/dL Globulin (2-4) g/dL Albumin/Globulin Ratio (1-3) TSH (0.34-5.60) mcIU/mL Urine Color Yellow Urine Appearance Cloudy Urine pH 6.0 (5-9) Ur Specific [place] 1.023 (1.010-1.030) Urine Protein Negative (Negative) Urine Ketones Trace A (Negative) Urine Blood Negative (Negative) Urine Nitrate Negative (Negative) Urine Bilirubin Negative (Negative) Urine Urobilinogen Negative (Negative) Ur Leukocyte Esterase 2+ A (Negative) Urine WBC (Auto) 2+(11-20/hpf) A (Absent) Urine RBC (Auto) Absent (Absent) Ur Squamous Epith Cells Present A (Absent) Urine Bacteria Absent (Absent) Urine Glucose 1+(50 mg/dl) A (Negative) Influenza A (Rapid) Negative (Negative) Influenza B (Rapid) Negative (Negative) Result Diagrams: 06/07/18 19:15 06/07/18 19:15 Lab Statement: Any lab studies that have been ordered have been reviewed, and results considered in the medical decision making process. Course/Dx Course Of Treatment: Patient with history of metastatic breast cancer with metastases to brain and liver complains of chronic intractable headache and 1 episode of syncope in the shower tonight. Patient states syncopized for a few seconds in sitting position with no fall, denies any injury or symptoms. Denies prior history of syncope, or postictal period post-syncope. Denies history of seizures, fever, cough, sore throat, CP, SOB, N/V/D, abdominal pain, change in urine, change in BM. Patient was seen here this morning for intractable headache, was discharged home. History of Gamma knife radiation surgery to right side brain 2 weeks ago. Last chemotherapy treatment 7 months ago, states cancer recently returned. Patient advised to stop Xarelto at earlier visit. Medical history is chronic pain, breast cancer, blood clots in urine arteries, COPD. Physical exam unremarkable. Vital signs within normal limits and stable. Orthostatic negative. EKG unremarkable. Chest x- ray unremarkable. Lactic 2.8 elevated from this morning. Elevated liver enzymes. Labs otherwise unremarkable. Discussed patient with Dr. Paredes oncology who recommended admission by hospitalist. - Diagnoses Provider Diagnoses: Metastatic breast cancer, Syncope, Intractable headache Discharge - Sign-Out/Discharge Documenting (check all that apply): Patient Departure - Discharge Plan Condition: Stable Disposition: ADMITTED TO [facility] - Billing Disposition and Condition Condition: STABLE Disposition: Admitted to [facility]
[2018-06-08] MEDS: HYDROmorphone INJ1* 1 MG/ML SYRINGE IV SLOW PU PRN ×4 (03:18→20:19)
[2018-06-08] MEDS: Heparin VIAL(*) 5000 UNITS/ML VIAL (FIVE THOUSAND) SUBCUT SCH ×3 (05:35→20:17)
[2018-06-08] MEDS: Ibuprofen TAB* 600 MG PO PRN (05:39)
[2018-06-08 06:12] LABS: EGFR Non-African American 95.8 (>60)
[2018-06-08] MEDS: fentaNYL Patch Check Q Shift 1 NOTE FOLLOW UP SCH ×2 (06:41→18:53)
--- NOTE | 2018-06-08 07:54 | PN ---
Progress Note - Progress Note Date of Service: 06/08/18 SOAP: Subjective: []VÁZQUEZ a little better. Went to bathroom and has been walking, no syncope. No fevers and no abdominal pain. Acetaminophen (Tylenol Tab*) 650 mg PO Q6H PRN PRN Reason: PAIN Alprazolam (Xanax Tab*) 1 mg PO QID PRN PRN Reason: ANXIETY Last Admin: 06/07/18 23:14 Dose: 1 mg Anastrozole (Arimidex (Nf)) 1 mg PO BEDTIME [facility] Last Admin: 06/07/18 23:25 Dose: 1 mg Brexpiprazole (Rexulti) 2 mg PO BEDTIME GIOVANNA Dexamethasone (Decadron Tab*) 8 mg PO BID [facility] Last Admin: 06/07/18 23:14 Dose: 8 mg Docusate Sodium (Colace Cap*) 200 mg PO BID [facility] Last Admin: 06/07/18 23:14 Dose: 200 mg Duloxetine HCl (Cymbalta Cap*) 30 mg PO BID [facility] Last Admin: 06/07/18 23:14 Dose: 30 mg Fentanyl (Duragesic Patch 50 Mcg/Hr*) 50 mcg TRANSDERM Q72H [facility] Last Admin: 06/07/18 22:30 Dose: 50 mcg Heparin Sodium (Porcine) (Heparin Vial(*)) 5,000 units SUBCUT Q8HR [facility] Last Admin: 06/08/18 05:35 Dose: 5,000 units Hydromorphone HCl (Dilaudid Inj1s*) 1 mg IV SLOW PU Q4H PRN PRN Reason: PAIN Last Admin: 06/08/18 03:18 Dose: 1 mg Sodium Chloride (Ns 0.9% 1000 Ml*) 1,000 mls @ 100 mls/hr IV PER RATE [facility] Last Admin: 06/07/18 22:29 Dose: 100 mls/hr Ibuprofen (Motrin Tab*) 600 mg PO Q6H PRN PRN Reason: PAIN Last Admin: 06/08/18 05:39 Dose: 600 mg Metoprolol Tartrate (Lopressor Tab*) 50 mg PO BID [facility] Last Admin: 06/07/18 23:15 Dose: 50 mg Mirtazapine (Remeron Tab*) 30 mg PO QPM [facility] Last Admin: 06/07/18 23:14 Dose: 30 mg Ondansetron HCl (Zofran Inj*) 4 mg IV Q6H PRN PRN Reason: NAUSEA Ondansetron HCl (Zofran Tab*) 4 mg PO Q4HR PRN PRN Reason: NAUSEA Pharmacy Profile Note (Fentanyl Patch Check Q Shift) 1 note FOLLOW UP 0700, 1900 [facility] Last Admin: 06/08/18 06:41 Dose: 1 note Trazodone HCl (Desyrel Tab*) 400 mg PO BEDTIME [facility] Last Admin: 06/07/18 23:15 Dose: 400 mg Objective: [] Vital Signs Temp Pulse Resp BP Pulse Ox 96.7 F 59 14 115/57 94 06/08/18 07:23 06/08/18 07:23 06/08/18 07:23 06/08/18 07:23 06/08/18 07:23 HEENT cushniod Neuro - CN intact, AAOx3 , stregnth 5/5, did not walk her. CTA RRR SiS2 Abd obese Assessment: []Her 2 kaley + breast cancer and progressive VÁZQUEZ. Known SUPPLY TECH disease. Concerned about leptomeningeal carcinomatosis. Plan: []1. Continue Dilaudid and increase Fentanyl to 75 mg 2. MRI brain today, LP tomorrow 3. Heparin SQ, hold Xeralto, check PT PTT in am 4. Increased LFTs. DDx: chemotherapy, dex, cancer. Check amylase and lipase
[2018-06-08] MEDS: DULoxetine DR CAP* 30 MG CAP.DR PO SCH ×2 (09:24→20:15)
[2018-06-08] MEDS: Docusate CAP* 100 MG PO SCH ×2 (09:24→20:17)
[2018-06-08] MEDS: Dexamethasone TAB* 4 MG PO SCH ×2 (09:24→20:16)
[2018-06-08] MEDS: fentaNYL PATCH 75 MCG/HR* 75 MCG TRANSDERM SCH (09:24)
[2018-06-08] MEDS: NS 0.9% 1000 ML* 1,000 ML IV SCH ×2 (09:24→20:32)
[2018-06-08] MEDS: Metoprolol Tartrate TAB* 50 mg PO SCH ×2 (10:16→20:20)
[2018-06-08] MEDS: ALPRAZolam TAB* 0.5 MG PO PRN (15:55)
[2018-06-08] MEDS: Mirtazapine TAB* 15 MG PO SCH (18:53)
[2018-06-08] MEDS: traZODone TAB* 100 MG PO SCH (20:13)
[2018-06-08] MEDS: CMCS:Anastrozole (NF) 1 MG TAB PO SCH (20:15)
[2018-06-08] MEDS: BREXPIPRAZOLE 1 MG PO SCH (20:23)
[2018-06-09] MEDS ORDERED: Ketorolac INJ* 30 MG/ML 1 ML VIAL IV PUSH ONE (01:00)
[2018-06-09] MEDS: Heparin VIAL(*) 5000 UNITS/ML VIAL (FIVE THOUSAND) SUBCUT SCH (05:35)
[2018-06-09 07:00] LABS: ABS Basophils 0.1 10^3/ul (0-0.2); ABS Eosinophils 0 10^3/ul (0-0.6); ABS Lymphocytes 1.6 10^3/ul (1.0-4.8); ABS Monocytes 0.6 10^3/ul (0-0.8); ABS Neutrophils 8.2 10^3/ul (1.5-7.7); ABS Nucleated RBC 0 10^3/ul; Eosinophil % 0 % (0-6); Hematocrit 37 % (35-47); Hemoglobin 12.2 g/dl (12.0-16.0); Mean Corpuscular HGB Conc 33 g/dl (31-36); Mean Corpuscular Hemoglobin 32 pg (27-31); Mean Corpuscular Volume 95 fL (80-97); Mean Platelet Volume 7.4 fL (7.4-10.4); Nucleated Red Blood Cells % 0.2; Platelet Count 271 10^3/ul (150-450); Red Blood Count 3.86 10^6/ul (4.00-5.40); Red Cell Distribution Width 15 % (10.5-15); White Blood Count 10.4 10^3/ul (3.5-10.8)
[2018-06-09] MEDS: Ibuprofen TAB* 600 MG PO PRN (07:06)
[2018-06-09] MEDS: NS 0.9% 1000 ML* 1,000 ML IV SCH ×2 (07:06→14:18)
[2018-06-09 07:07] LABS: INR 0.95 (0.77-1.02)
[2018-06-09 07:18] LABS: EGFR Non-African American 99.2 (>60)
[2018-06-09] MEDS: fentaNYL Patch Check Q Shift 1 NOTE FOLLOW UP SCH ×2 (07:23→18:41)
[2018-06-09] MEDS ORDERED: Gadoteridol* (CONTRAST) 279.3 MG/ML 10 ML IV ONE (08:19)
[2018-06-09] MEDS: HYDROmorphone INJ1* 1 MG/ML SYRINGE IV SLOW PU PRN (09:37)
[2018-06-09] MEDS: DULoxetine DR CAP* 30 MG CAP.DR PO SCH ×2 (09:43→20:44)
[2018-06-09] MEDS: Dexamethasone TAB* 4 MG PO SCH ×2 (09:43→20:44)
[2018-06-09] MEDS: Docusate CAP* 100 MG PO SCH ×2 (09:43→20:44)
[2018-06-09] MEDS: Metoprolol Tartrate TAB* 50 mg PO SCH ×2 (09:44→20:44)
--- NOTE | 2018-06-09 10:40 | PN ---
Progress Note - Progress Note Date of Service: 06/09/18 SOAP: Subjective: []Admitted following syncopal episode in the shower. Got really dizzy and next thing she knew she was on the floor. Has had persistent HAs, recurrent since recent dx. 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 Recent staging scans with progressive liver disease and plan for Docetaxel. C/o back pain today, worse with hospital bed but consistent with chronic pain. Has associated radiculopathy that is unchange and no other neuropathy or changes in sensation. Fentanyl increased yesterday from 50 mcg to 75 mcg. Denies confusion and change in LOC. No perioral numbness. Is thinking a lot about quality of life versus quantity and considerations for palliative care. Medications: Acetaminophen (Tylenol Tab*) 650 mg PO Q6H PRN PRN Reason: PAIN Alprazolam (Xanax Tab*) 1 mg PO QID PRN PRN Reason: ANXIETY Last Admin: 06/08/18 15:55 Dose: 1 mg Anastrozole (Arimidex (Nf)) 1 mg PO BEDTIME [facility] Last Admin: 06/08/18 20:15 Dose: 1 mg Brexpiprazole (Rexulti) 2 mg PO BEDTIME [facility] Last Admin: 06/08/18 20:23 Dose: Not Given Dexamethasone (Decadron Tab*) 8 mg PO BID [facility] Last Admin: 06/09/18 09:43 Dose: 8 mg Docusate Sodium (Colace Cap*) 200 mg PO BID [facility] Last Admin: 06/09/18 09:43 Dose: 200 mg Duloxetine HCl (Cymbalta Cap*) 30 mg PO BID [facility] Last Admin: 06/09/18 09:43 Dose: 30 mg Fentanyl (Duragesic Patch 75 Mcg/Hr*) 75 mcg TRANSDERM Q72H [facility] Last Admin: 06/08/18 09:24 Dose: 75 mcg Hydromorphone HCl (Dilaudid Inj1s*) 1 mg IV SLOW PU Q4H PRN PRN Reason: PAIN Last Admin: 06/09/18 09:37 Dose: 1 mg Sodium Chloride (Ns 0.9% 1000 Ml*) 1,000 mls @ 100 mls/hr IV PER RATE [facility] Last Admin: 06/09/18 07:06 Dose: 100 mls/hr Ibuprofen (Motrin Tab*) 600 mg PO Q6H PRN PRN Reason: PAIN Last Admin: 06/09/18 07:06 Dose: 600 mg Metoprolol Tartrate (Lopressor Tab*) 50 mg PO BID [facility] Last Admin: 06/09/18 09:44 Dose: Not Given Mirtazapine (Remeron Tab*) 30 mg PO QPM [facility] Last Admin: 06/08/18 18:53 Dose: 30 mg Ondansetron HCl (Zofran Inj*) 4 mg IV Q6H PRN PRN Reason: NAUSEA Ondansetron HCl (Zofran Tab*) 4 mg PO Q4HR PRN PRN Reason: NAUSEA Pharmacy Profile Note (Fentanyl Patch Check Q Shift) 1 note FOLLOW UP 0700, 1900 [facility] Last Admin: 06/09/18 07:23 Dose: 1 note Trazodone HCl (Desyrel Tab*) 400 mg PO BEDTIME [facility] Last Admin: 06/08/18 20:13 Dose: 400 mg Xarelto HELD since admission Heparin subq DVT prophylaxis given @ approx. 0500 this AM Objective: [] Vital Signs Temp Pulse Resp BP Pulse Ox 98.1 F 54 16 131/69 100 06/09/18 09:38 06/09/18 09:38 06/09/18 10:49 06/09/18 09:38 06/09/18 09:38 A&Ox3, EOMI, involved in discussion and plan of care Communicating clear with no obvious neuro defects HRR, S1S2 LS clear with dim. bases r/t poor resp. effort +BS, obese Laboratory Results - last 24 hr 06/09/18 06/09/18 06/09/18 06:52 06:52 06:52 WBC 10.4 RBC 3.86 L Hgb 12.2 Hct 37 MCV 95 MCH 32 H MCHC 33 RDW 15 Plt Count 271 MPV 7.4 Neut % (Auto) 78.5 Lymph % (Auto) 15.0 L [place] % (Auto) 6.0 Eos % (Auto) 0 Baso % (Auto) 0.5 Absolute Neuts (auto) 8.2 H Absolute Lymphs (auto) 1.6 Absolute Monos (auto) 0.6 Absolute Eos (auto) 0 Absolute Basos (auto) 0.1 Absolute Nucleated RBC 0 Nucleated RBC % 0.2 INR (Anticoag Therapy) 0.95 APTT 28.2 Sodium 141 Potassium 4.4 Chloride 111 Carbon Dioxide 25 Anion Gap 5 BUN 15 Creatinine 0.66 Est GFR ( Amer) 120.0 Est GFR (Non-Af Amer) 99.2 BUN/Creatinine Ratio 22.7 H Glucose 138 H Calcium 8.5 L Total Bilirubin 0.20 AST 26 ALT 58 H Alkaline Phosphatase 127 H Total Protein 5.8 L Albumin 3.2 Globulin 2.6 Albumin/Globulin Ratio 1.2 Assessment: []42 yo female with triple positive breast cancer recently progressive with new SOLAR ENERGY ADVISOR lesions and progressive liver mets. 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 In terms of her prognosis at this time we are still gathering information, however if she did NOT pursue any further treatment she would have a prognosis of 6 mo, however with treatment I expect this to extend to a year or more (as she has a lot of tx. options/lines of therapy). I have recommended a large family meeting in the near future, but this could occur as an outpatient. Plan: []1. VÁZQUEZ and syncope: known SOLAR ENERGY ADVISOR met with improvement on MRI though cont.'d HAs - LP with pre/post pressure, cell count/cytology, glucose, and protein 2. Pain: chronic in nature and no evidence of malignancy related at this time, however we have long managed due to need for close monitoring (hx. of abuse with overdose) - stop IV pain meds, cont. Fentanyl at increased dose, resume PO PRN meds
[2018-06-09] MEDS ORDERED: Buffered Lidocaine 0.9% SYRIN* 5 ML/SYR SYRINGE INTRADERM ONE (11:31)
[2018-06-09] MEDS ORDERED: Levalbuterol 1.25MG/0.5ML NEB INH ONE (11:31)
[2018-06-09] MEDS ORDERED: Midazolam* 1 MG/ML 5 ML VIAL (5 MG) ONE (12:23)
[2018-06-09] MEDS ORDERED: fentaNYL* 50 MCG/ML 2 ML VIAL (100 MCG VIAL) ONE (12:24)
[2018-06-09] MEDS ORDERED: Lidocaine 1% INJ* 10 MG/ML 30 ML SDV ONE (12:24)
[2018-06-09 13:47] LABS: Body Fluid Source Cerebral Spinal
[2018-06-09] MEDS: HYDROmorphone TAB* 2 MG PO PRN ×3 (14:33→20:43)
[2018-06-09] MEDS: Mirtazapine TAB* 15 MG PO SCH (18:03)
[2018-06-09] MEDS: CMCS:Anastrozole (NF) 1 MG TAB PO SCH (20:43)
[2018-06-09] MEDS: traZODone TAB* 100 MG PO SCH (20:44)
[2018-06-09] MEDS: BREXPIPRAZOLE 1 MG PO SCH (20:45)
[2018-06-10] MEDS: NS 0.9% 1000 ML* 1,000 ML IV SCH ×2 (00:03→11:25)
[2018-06-10] MEDS: HYDROmorphone TAB* 2 MG PO PRN ×2 (00:04→03:41)
[2018-06-10] MEDS: ALPRAZolam TAB* 0.5 MG PO PRN ×3 (00:04→18:32)
[2018-06-10] MEDS: Metoprolol Tartrate TAB* 50 mg PO SCH ×3 (00:39→07:32)
[2018-06-10] MEDS: fentaNYL Patch Check Q Shift 1 NOTE FOLLOW UP SCH ×2 (06:58→18:28)
[2018-06-10] MEDS: Docusate CAP* 100 MG PO SCH ×2 (07:50→21:01)
[2018-06-10] MEDS: DULoxetine DR CAP* 30 MG CAP.DR PO SCH ×2 (07:50→21:02)
[2018-06-10] MEDS: Rivaroxaban TAB(*) 20 MG TAB PO SCH (07:50)
[2018-06-10] MEDS: Dexamethasone TAB* 4 MG PO SCH ×2 (07:51→21:02)
[2018-06-10] MEDS ORDERED: Naproxen TAB* 250 MG PO ONE (08:56)
[2018-06-10] MEDS ORDERED: Metoprolol Tartrate TAB* 50 mg PO SCH ×2 (09:48→21:00)
--- NOTE | 2018-06-10 10:39 | PN ---
Progress Note - Progress Note Date of Service: 06/10/18 SOAP: Subjective: []Bradycardic overnight. Nursing notes and documentation reviewed. Feeling OK overall, but cont.'s to have back pain and VÁZQUEZ. Pain 6/10 persistent. Can tell that her heart rate is slower, but denies chest pain/pressure/ palpitations. Medications: Acetaminophen (Tylenol Tab*) 650 mg PO Q6H PRN PRN Reason: PAIN Alprazolam (Xanax Tab*) 1 mg PO QID PRN PRN Reason: ANXIETY Last Admin: 06/10/18 07:50 Dose: 1 mg Anastrozole (Arimidex (Nf)) 1 mg PO BEDTIME [facility] Last Admin: 06/09/18 20:43 Dose: 1 mg Brexpiprazole (Rexulti) 2 mg PO BEDTIME [facility] Last Admin: 06/09/18 20:45 Dose: Not Given Dexamethasone (Decadron Tab*) 8 mg PO BID [facility] Last Admin: 06/10/18 07:51 Dose: 8 mg Docusate Sodium (Colace Cap*) 200 mg PO BID [facility] Last Admin: 06/10/18 07:50 Dose: 200 mg Duloxetine HCl (Cymbalta Cap*) 30 mg PO BID [facility] Last Admin: 06/10/18 07:50 Dose: 30 mg Fentanyl (Duragesic Patch 75 Mcg/Hr*) 75 mcg TRANSDERM Q72H [facility] Last Admin: 06/08/18 09:24 Dose: 75 mcg Sodium Chloride (Ns 0.9% 1000 Ml*) 1,000 mls @ 75 mls/hr IV PER RATE [facility] Last Admin: 06/10/18 00:03 Dose: 75 mls/hr Lactated Ringer's (Lactated Ringers 1000 Ml Bag*) 1,000 mls @ 125 mls/hr IV PER RATE [facility] Last Admin: 06/09/18 14:17 Dose: 125 mls/hr Ibuprofen (Motrin Tab*) 600 mg PO Q6H PRN PRN Reason: PAIN Last Admin: 06/09/18 07:06 Dose: 600 mg Metoprolol Tartrate (Lopressor Tab*) 50 mg PO BID [facility] Mirtazapine (Remeron Tab*) 30 mg PO QPM [facility] Last Admin: 06/09/18 18:03 Dose: 30 mg Ondansetron HCl (Zofran Tab*) 4 mg PO Q4HR PRN PRN Reason: NAUSEA Oxycodone HCl (Roxycodone Tab*) 10 mg PO Q6H PRN PRN Reason: PAIN Pharmacy Profile Note (Fentanyl Patch Check Q Shift) 1 note FOLLOW UP 0700, 1900 [facility] Last Admin: 06/10/18 06:58 Dose: 1 note Rivaroxaban (Xarelto(*)) 20 mg PO DAILY [facility] Last Admin: 06/10/18 07:50 Dose: 20 mg Objective: [] Vital Signs Temp Pulse Resp BP Pulse Ox 98.4 F 122 16 122/58 99 06/10/18 07:18 06/10/18 07:18 06/10/18 07:50 06/10/18 07:18 06/10/18 07:18 A&Ox3, EOMI, neuro grossly non-focal HRR, S1S2, distant heart sounds LS dim. 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 Admitted 3 days ago with syncopal episode and neuro work-up negative, however she has now developed bradycardia. Question of tachy/kacie syndrome. Plan: []Bradycardia: question of role in syncopal episode, will cont. to work-up - medications reviewed at length 1. stop dilaudid d/t associated kacie risk, can trial oxycodone however discussed need to decrease dose, OK to cont. Fentanyl for now 2. stop trazodone however will cont. remeron for now 3. zofran with rare risk of bradycardia, more risk r/t QT prolongation, however ultimately she hasn't needed any during this admission - transthoracic echo ordered - check TSH - LP yesterday with pre/post pressures (though report not available at this time ) - consult cardiology, case discussed with Dr. French Pain: chronic in nature - cont. Fentanyl, stop dilaudid as above, trial oxycodone VÁZQUEZ: MRI stable, LP appears negative thus far - naproxen helped a little this AM therefore can cont. PRN, stop ibuprofen Ovarian thrombosis: Xarelto resumed this AM
[2018-06-10] MEDS: oxyCODONE TAB* 5 MG TAB PO PRN ×3 (11:23→23:23)
--- NOTE | 2018-06-10 15:25 | ECHO ---
Patient: [facility] Rec#: [id number] : 1975 Date: 06/10/2018 Age: 42y Height: 168 cm / 66.1 in Weight: 127 kg / 279.9 lbs Sex: F BSA: 2.31 Room#: [facility] Admit Date#: 06/09/2018 Type: Inpatient Referring: Patricia Lee Reading: Marshal French MD Lead Section Supervisor: Florence KulkarniJOSUE CC: Art CARRENO,Jill Akhtar Transthoracic Echocardiogram Indication: Syncope BP: 122/58 HR: 80 Rhythm: NSR with PVCs Findings History: Breast cancer with metastasis to liver, spine, and brain. Chemotherapy, COPD, smoker. Technical Comments: The study quality is fair. Completed at 1400. Left Ventricle: The left ventricular chamber size is normal. Mild concentric left ventricular hypertrophy is observed. Global left ventricular wall motion and contractility are within normal limits. Left ventricular systolic function is at the lower limits of normal. The estimated ejection fraction is 50-55%. There is no consistent Doppler evidence of clinically significant diastolic dysfunction. Left Atrium: The left atrium is slightly dilated. Right Ventricle: The right ventricle wall thickness is mildly increased. The right ventricular cavity size is normal. The right ventricular global systolic function is low normal. Right Atrium: The right atrium is mildly dilated. Aortic Valve: The aortic valve structure is not well visualized. There is no evidence of aortic valve thickening. There is no evidence of aortic regurgitation. There is no evidence of aortic stenosis. Mitral Valve: The mitral valve leaflets do not appear thickened. There is a trace of mitral regurgitation. There is no evidence of mitral stenosis. Tricuspid Valve: The tricuspid valve leaflets are normal. There is trace to mild tricuspid regurgitation. The right ventricular systolic pressure is estimated at 27 mmHg. No pulmonary hypertension is noted. There is no tricuspid stenosis. Pulmonic Valve: The pulmonic valve appears normal. There is a trace pulmonic regurgitation. There is no pulmonic stenosis. Pericardium: There is no significant pericardial effusion. A pericardial fat pad is visualized. Aorta: There is no dilatation of the ascending aorta. There is no dilatation of the aortic arch. The aortic root is normal in size. Pulmonary Artery: The main pulmonary artery appears normal. Venous: The venous system is not well visualized. The inferior vena cava is not visualized. Summary: There are no significant changes when compared to the previous study done on 04/29/18 Conclusions Global left ventricular wall motion and contractility are within normal limits. Left ventricular systolic function is at the lower limits of normal. The estimated ejection fraction is 50-55%. There is no evidence of aortic stenosis. There is a trace of mitral regurgitation. There is trace to mild tricuspid regurgitation. No pulmonary hypertension is noted. There is no significant pericardial effusion. There are no significant changes when compared to the previous study done on 04/29/18 Measurements Name Value Normal Range RVIDd (AP) 2D 3.1 cm (0.9 - 2.6) RVDdMajor (2D) 4.1 cm (2.2 - 4.4) RVAW (2D) 0.7 cm (0.2 - 0.5) RAd ISD 4CH 5.6 cm (3.4 - 4.9) RA (A4C)W 4.4 cm (2.9 - 4.6) IVSd (2D) 1.1 cm (0.6 - 1) LVPWd (2D) 1.1 cm (0.6 - 1) LVIDd (2D) 4.5 cm (3.6 - 5.4) LVIDs (2D) 3.7 cm - LV FS (2D) 17 % (25 - 45) Aortic Annulus 2 cm (1.4 - 2.6) Ao root diameter (2D) 2.8 cm (2.1 - 3.5) Ascending Ao 3 cm (2.1 - 3.4) Aortic arch 2.8 cm (1.8 - 3.4) LA dimension (AP) 2D 3.9 cm (2.3 - 3.8) LAd ISD 4CH 5.1 cm (2.9 - 5.3) LA ISD 4CH W 4.6 cm (2.5 - 4.5) Name Value Normal Range LA ESV BP (A/L) index 32 ml/m2 - Name Value Normal Range MV E-wave Vmax 1.4 m/sec - MV deceleration time 190 msec - MV A-wave Vmax 1 m/sec - MV E:A ratio 1.4 ratio - LV septal e' Vmax 0.1 m/sec - LV lateral e' Vmax 0.1 m/sec - LV E:e' septal ratio 14 ratio - LV E:e' lateral ratio 14 ratio - Name Value Normal Range AV Vmax 1.95 m/sec - AV VTI 40.8 cm - AV peak gradient 15 mmHg - AV mean gradient 7 mmHg - LVOT Vmax 1.2 m/sec - LVOT VTI 23.5 cm - LVOT peak gradient 5 mmHg - LVOT mean gradient 2 mmHg - FABIAN Vmax 1.5 m/sec - Name Value Normal Range TR Vmax 2.2 m/sec - TR peak gradient 19 mmHg - RAP 8 mmHg - RVSP 27 mmHg - Name Value Normal Range PV Vmax 1.2 m/sec - PV peak gradient 6 mmHg -
[2018-06-10] MEDS: Ibuprofen TAB* 600 MG PO PRN (15:57)
[2018-06-10] MEDS: Mirtazapine TAB* 15 MG PO SCH (17:30)
[2018-06-10] MEDS ORDERED: LORazepam TAB(*) 1 MG PO ONE (18:44)
[2018-06-10] MEDS: CMCS:Anastrozole (NF) 1 MG TAB PO SCH (21:01)
[2018-06-10] MEDS: BREXPIPRAZOLE 1 MG PO SCH (21:02)
--- NOTE | 2018-06-10 22:17 | CONS ---
CC: Hematology/Oncology; Patricia Cordero NP.* CARDIOLOGY CONSULTATION: DATE OF CONSULT: 06/10/18 INDICATION FOR CONSULTATION: Syncope. HISTORY OF PRESENT ILLNESS: The patient is a 42-year-old female with a history of metastatic breast cancer and known mild cardiomyopathy. I had seen the patient as an outpatient for her mild cardiomyopathy. The patient is on low dose beta blockers for this. The patient states she was at home. She was taking a shower and suddenly felt lightheaded. She sat down in the chair that was in the shower and said she lost consciousness. She did not fall to the ground. She had no injuries associated with this. She woke up into her chair in the shower and was able to take care of herself. She was brought to the emergency room because of her syncopal episode and profound weakness. In the emergency room, the patient had no significant abnormalities. She had a brain MRI, which was consistent with her metastatic disease. The patient had an EKG, which showed normal sinus rhythm with normal axis and intervals. On the floor, she was noted to have frequent PVCs and episodes of non-conducted P waves. Since being in the hospital, the patient has had no episodes of syncope. 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 MEDICATIONS: Outpatient medications: 1. Calciferol. 2. Hydromorphone. 3. Zolpidem 12.5 mg q.h.s. 4. Metoprolol 50 mg a day. 5. Fentanyl patch. 6. Xarelto, which is currently on hold. ALLERGIES: VENLAFAXINE and PROCHLORPERAZINE. FAMILY HISTORY: Dad is alive and well. Other history is unavailable. SOCIAL HISTORY: She is a smoker. She denies tobacco or alcohol use. She lives with her parents. She has 2 teenage children. PHYSICAL EXAM: Height is 5 feet 6 inches, weight 277 pounds, temperature 97.6, heart rate is 55, respiratory rate is 16, blood pressure 139/47. Sclerae anicteric. Oropharynx is pink without erythema. Carotids are 2+ without bruits. JVD is normal. Thyroid is normal. Cardiac Exam: S1, S2 without any murmurs, rubs or gallops. Lungs are clear to auscultation bilaterally with no dullness to percussion. Abdomen is soft, nontender, nondistended with normoactive bowel sounds. Extremities show no edema. She has 2+ pulses throughout. The patient is awake and alert, and oriented. She moves all 4 extremities equally. DIAGNOSTIC STUDIES/LAB DATA: CBC is within normal limits. Chemistries within normal limits. AST and ALT are minimally elevated. TSH 0.16, free T4 0.64, BNP 318. Echocardiogram shows low normal LV systolic function, ejection fraction of 50% to 55%. No significant valvular abnormalities. IMPRESSION: This is a 42-year-old female with a history of metastatic breast cancer, who is admitted to the hospital with syncopal episodes. Her baseline EKG is unremarkable and her echocardiogram is unchanged. On telemetry, she does have frequent PVCs. She also has episodes of non- conducted P waves that are very difficult to quantify. At first, I thought it was secondary heart block, type 1, but there are times when there are non- conducted P waves that the [place] interval remains the same, but the P to P intervals change. At this point, I am not exactly sure what the significance of these non-conducted P waves are. The patient has not had any prolonged episodes of bradycardia. She is currently off of her beta blockers. PLAN/RECOMMENDATIONS: For now, my recommendation is to stay her off beta blockers, observe her in the hospital for another 24 hours. If no other significant arrhythmias, the patient may require outpatient telemetry monitoring. [id number][place] [place]: [id number] [place]TDD
[2018-06-11] MEDS: ALPRAZolam TAB* 0.5 MG PO PRN ×2 (00:39→08:43)
[2018-06-11] MEDS: NS 0.9% 1000 ML* 1,000 ML IV SCH (01:23)
[2018-06-11] MEDS: oxyCODONE TAB* 5 MG TAB PO PRN (05:30)
[2018-06-11] MEDS: fentaNYL Patch Check Q Shift 1 NOTE FOLLOW UP SCH (06:51)
[2018-06-11] MEDS: Rivaroxaban TAB(*) 20 MG TAB PO SCH (08:44)
[2018-06-11] MEDS: Dexamethasone TAB* 4 MG PO SCH (08:44)
[2018-06-11] MEDS: DULoxetine DR CAP* 30 MG CAP.DR PO SCH (08:44)
[2018-06-11] MEDS: Docusate CAP* 100 MG PO SCH (08:44)
[2018-06-11] MEDS: fentaNYL PATCH 75 MCG/HR* 75 MCG TRANSDERM SCH (08:45)
[2018-06-11 08:54] VITALS: BP 144/79
--- NOTE | 2018-06-11 09:55 | DS ---
- Discharge Summary Admission Date: 06/08/18 OBV, 06/09/18 full Discharge Date: 06/11/18 Discharge Diagnosis: 1. Syncope: felt related to bradycardia, no further episodes, now off beta walter 2. 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 Pain: chronic, pain medications adjusted d/t bradycardia and HAs 4. Mixed anxiety and depression: stable on current medications Discharge Medications: Medication Instructions Recorded Confirmed Type Ondansetron TAB* [Zofran 4 MG Tab*] 4 mg PO Q4HR PRN 10/02/16 06/07/18 History Cholecalciferol (Vitamin D3) 2 cap PO QPM 02/21/17 06/07/18 History [Vitamin D3] Brexpiprazole [Rexulti] 2 mg PO QPM 08/14/17 06/07/18 History Docusate CAP* [Colace Cap*] 200 mg PO BID 08/14/17 06/07/18 History Leuprolide Acetate [Lupron 11.25 mg IM SEE INSTRUCTIONS 08/14/17 06/07/18 History [place]ot-Ped] Mirtazapine TAB* [Remeron TAB*] 30 mg PO QPM 08/14/17 06/07/[address] CAP* [Cymbalta CAP*] 30 mg PO BID 05/11/18 06/07/18 History ALPRAZolam TAB* [Xanax TAB*] 1 mg PO QID PRN 06/07/18 06/07/18 History Anastrozole (NF) [Arimidex (NF)] 1 mg PO QPM #0 06/11/18 06/07/18 Rx Dexamethasone [Decadron] 6 mg PO BID #30 tablet 06/11/18 Rx Naproxen Sodium [Naproxen 220 mg] 220 mg PO BID PRN #60 tablet 06/11/18 Rx Rivaroxaban TAB(*) [Xarelto 20 mg] 20 mg PO DAILY tab 06/11/18 Rx fentaNYL PATCH 75 MCG/HR* 75 mcg TRANSDERM Q72H #5 patch MDD 06/11/18 Rx [Duragesic PATCH 75 Mcg/Hr*] 1 patch oxyCODONE TAB* [Roxycodone TAB 5 5 - 10 mg PO Q6H PRN #80 tab MDD 8 06/11/18 Rx mg*] tabs Hospital Course: Please see admission note for full H&P, however, briefly, Ms. Guevara is well known to our service due to her ER+ HER2+ metastatic breast cancer. 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 She presented to the ER on the evening of 06/08/18 after a syncopal episode in the shower. She was admitted to telemetry for observation. She had an MRI of the head with and without contrast on the morning 06/09 with stable to improved COUNTERINTELLIGENCE AGENT disease. An LP was ordered due to persistent headache and this was negative as well. Overnight on 06/09 she developed significant bradycardia with non-conductive p- waves. Her beta walter was held and she had an echo as well as a cardiology consult. At the same time her medications were adjusted to d/c any meds that may contribute to her bradycardia such as dilaudid and trazodone. Her echo was essentially normal with EF 50%, stable from prior. She was seen by Dr. French who agreed with d/c'ing the beta walter and monitoring. Overnight she remained bradycardia, sinus rhythm with occassional PVCs and non-conductive p- waves. Throughout this she has denied cardiac symptoms. Today she is feeling reasonably well and notes her pain has been OK with oxycodone and notes maybe a slight improvement in her headaches. She states good understanding of her med adjustments and will be d/c'd home with plan for onc. f/u 06/19 with chemo as well as f/u with Dr. French of cardiology on 06/24. I have strongly enc.'d she cont. smoking cessation and she will attempt to increase her low impact activities. >40 min. spent with >50% face to face counseling
== END 2018-06-11 10:39 | disposition home health service (06) | DRG 201 ==
LOC: ED 18:12 → MEDTELE 21:16 → OBSVTOIN 06-09 09:00
PROVIDERS: ADMIT Internal Medicine; ATTEND Internal Medicine Hematology & Oncology
PROC: 009U3ZX Drainage of Spinal Canal, Percutaneous Approach, Diagnostic (ICD-10-PCS; principal; 2018-06-09 12:30)
DX: R00.1 Bradycardia, unspecified (principal); C78.7 Secondary malignant neoplasm of liver and intrahepatic bile duct; C79.51 Secondary malignant neoplasm of bone; C79.31 Secondary malignant neoplasm of brain; R55 Syncope and collapse; I42.9 Cardiomyopathy, unspecified; C50.919 Malignant neoplasm of unspecified site of unspecified female breast; J44.9 Chronic obstructive pulmonary disease, unspecified; F32.9 Major depressive disorder, single episode, unspecified; G89.29 Other chronic pain; F51.4 Sleep terrors [night terrors]; G47.00 Insomnia, unspecified; F17.210 Nicotine dependence, cigarettes, uncomplicated; E78.00 Pure hypercholesterolemia, unspecified; M19.90 Unspecified osteoarthritis, unspecified site; F41.0 Panic disorder [episodic paroxysmal anxiety]; R40.2362 Coma scale, best motor response, obeys commands, at arrival to emergency department; R40.2142 Coma scale, eyes open, spontaneous, at arrival to emergency department; R40.2252 Coma scale, best verbal response, oriented, at arrival to emergency department; G43.819 Other migraine, intractable, without status migrainosus; I49.3 Ventricular premature depolarization; F43.10 Post-traumatic stress disorder, unspecified; I50.9 Heart failure, unspecified; Z88.8 Allergy status to other drugs, medicaments and biological substances; Z91.5 Personal history of self-harm; Z86.718 Personal history of other venous thrombosis and embolism; Z90.49 Acquired absence of other specified parts of digestive tract
CPT/HCPCS: 36415; 62270; 70553; 71045; 80053; 81003; 81015; 82150; 82945; 83605; 83690; 83735; 83880; 84157; 84439; 84443; 84479; 84484; 85025; 85610; 85730; 87070; 87077; 87086; 87186; 87205; 89051; 93005; 93306; 99232; 99233; 99239; 99283; A9270-GY; A9579; G0378; J1170; J1644; J1885; J2250; J2405; J3010; J8540

== ENCOUNTER 2018-10-22 16:11 | Emergency (ER) | payer OTHER ==
[2018-10-22] MEDS ORDERED: NS 0.9% 1000 ML** 1,000 ML IV ONE ×2 (16:29→16:30)
[2018-10-22] MEDS ORDERED: Ondansetron INJ* 2 MG/ML VIAL IV ONE (16:29)
--- NOTE | 2018-10-22 16:30 | ED ---
Abdominal Pain/Female - HPI Summary HPI Summary: A 43 y/o F with mets R-sided Breast CA presents to ED with c/o n/v/d onset a week. Pt last received chemo 1.5 weeks ago through her port. She does not usually become n/v after chemo. Associated sx: R-sided abd pain, chills. Denies fever, dysuria. She sees Dr. Cordova, oncology. She is on steroids. She's trying to quit smoking and is down to 3-4 cigs a day. Past surgeries: cholecystectomy, appy. - History of Current Complaint Chief Complaint: EDNauseaVomitDiarrh Stated Complaint: VOMITING, DIARRHEA X 1 WK, STOMACH PAIN PER PT Time Seen by Provider: 10/22/18 16:24 Hx Obtained From: Patient Hx Last Menstrual Period: 05/25/16 Onset/Duration: Gradual Onset, Lasting Weeks - 1 week, Still Present Timing: Constant Severity Initially: Moderate Severity Currently: Severe Pain Intensity: 8 Pain Scale Used: 0-10 Numeric Location: Other - R-sided Associated Signs and Symptoms: Positive: Nausea, Vomiting, Diarrhea, Other: - pos: R-sided abd pain, chills. Negative: Fever, Urinary Symptoms Allergies/Adverse Reactions: Allergies Allergy/AdvReac Type Severity Reaction Status Date / Time venlafaxine Allergy Severe Hives/Diff. Verified 09/26/18 11:11 Breathing/I tching Adhesive Tape Allergy skin break Verified 09/26/18 11:11 [Tegaderm Dressing] down prochlorperazine Allergy See Comment Verified 09/26/18 11:11 promethazine Allergy See Comment Verified 09/26/18 11:11 PMH/Surg Hx/FS Hx/Imm Hx Previously Healthy: No Endocrine/Hematology History: Denies: Hx Anticoagulant Therapy, Hx Bone Marrow Disease, Hx Diabetes, Hx Sickle Cell Disease, Hx Thyroid Disease, Hx Anemia, Other Endocrine/ Hematological Disorders Cardiovascular History: Reports: Hx Congestive Heart Failure, Hx Deep Vein Thrombosis - Recent ovarian vein thrombosis, Hx Hypercholesterolemia, Other Cardiovascular Problems/Disorders - PT STATES DIFFICULTY WITH INJECTION FRACTION -HEART DAMAGE FROM CHEMO Denies: Hx Angina, Hx Cardiomegaly, Hx Coronary Artery Disease, Hx Hypertension, Hx Myocardial Infarction, Hx Pacemaker/ICD, Hx Peripheral Vascular Disease, Hx Rheumatic Fever, Hx Valvular Heart Disease Respiratory History: Reports: Hx Chronic Obstructive Pulmonary Disease (COPD) - STATES EARLY ONSET, Other Respiratory Problems/Disorders - SLEEPS WITH OXYGEN AT NIGHT 2L Denies: Hx Asthma, Hx Lung Cancer, Hx Pulmonary Edema, Hx Pulmonary Embolism , Hx Sleep Apnea GI History: Reports: Other GI Disorders - history of ulcerative colitis Denies: Hx Cirrhosis, Hx Crohn's Disease, Hx Gall Bladder Disease, Hx Gastroesophageal Reflux Disease, Hx Gastrointestinal Bleed, Hx Hiatal Hernia, Hx Irritable Bowel, Hx Jaundice, Hx Ulcer, Hx Urosepsis History: Denies: Hx Kidney Infection, Hx Kidney Stones, Hx Renal Disease, Other Problems/Disorders Musculoskeletal History: Reports: Hx Arthritis, Hx Back Problems Denies: Hx Bursitis, Hx Tendonitis, Other Musculoskeletal History Sensory History: Reports: Hx Contacts or Glasses Denies: Hx Cataracts, Hx Glaucoma, Hx Hearing Aid Opthamlomology History: Reports: Hx Contacts or Glasses Denies: Hx Cataracts, Hx Glaucoma Neurological History: Reports: Hx Migraine, Hx Spinal Cord Injury - herniated disc Denies: Hx Dementia, Hx Headaches, Hx Nerve Disease, Hx Seizures, Hx Transient Ischemic Attacks (TIA), Other Neuro Impairments/Disorders Psychiatric History: Reports: Hx Anxiety, Hx Depression, Hx Panic Disorder - ANXIETY, Hx Post Traumatic Stress Disorder, Hx Suicide Attempt - states she has made three attempts; h/o overdose x 2 Denies: Hx Eating Disorder, Hx Substance Abuse - Cancer History Cancer Type, Location and Year: 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 X2. appendix. POWER PORT 2017. cholecystectomy. LEFT FOOT-SURGICALLY REMOVED TOOTHPICK 2000 Hx Anesthesia Reactions: No - Immunization History Date of Tetanus Vaccine: UTD Date of Influenza Vaccine: NO Infectious Disease History: No Infectious Disease History: Denies: Hx Hepatitis, Hx Human Immunodeficiency Virus (HIV), Traveled Outside the [place] in Last 30 Days - Family History Known Family History: Negative: Cardiac Disease, Hypertension - Social History Occupation: Disabled Lives: Alone Alcohol Use: None Hx Substance Use: Yes Hx Tobacco Use: Yes Smoking Status (MU): Light Every Day Tobacco Smoker Type: Cigarettes Amount Used/How Often: 1/4 PPD, down from PPD Have You Smoked in the Last Year: Yes Review of Systems Negative: Fever Positive: Abdominal Pain, Vomiting, Diarrhea, Nausea Negative: dysuria All Other Systems Reviewed And Are Negative: Yes Physical Exam - Summary Physical Exam Summary: Appearance: Well appearing, no pain distress, obese Skin: warm, dry, reflects adequate perfusion. Small vesicle with surrounding erythema on dorsal of L wrist. Head/face: normal Eyes: EOMI, BRIAN ENT: mucous membranes moist Neck: supple, non-tender Respiratory: Coarseness in R base, breath sounds present Cardiovascular: Tachy, pulses symmetrical Abdomen: soft, mild R-sided abd discomfort Bowel Sounds: present Musculoskeletal: strength/ROM intact. Port in L chest. No LE edema. Edema in L hand. Neuro: normal, sensory motor intact, A&Ox3 Triage Information Reviewed: Yes Vital Signs On Initial Exam: Initial Vitals Temp Pulse Resp BP Pulse Ox 99.0 F 124 18 135/93 94 10/22/18 16:13 10/22/18 16:13 10/22/18 16:13 10/22/18 16:13 10/22/18 16:13 Vital Signs Reviewed: Yes Diagnostics - Vital Signs Vital Signs Temp Pulse Resp BP Pulse Ox 10/22/18 16:13 99.0 F 124 18 135/93 94 - Laboratory Result Diagrams: 10/22/18 16:50 10/22/18 16:50 Lab Statement: Any lab studies that have been ordered have been reviewed, and results considered in the medical decision making process. - CT A/P CT CT Interpretation Completed By: Radiologist Summary of CT Findings: IMPRESSION: 1. No acute intra-abdominal findings. 2. Other chronic findings, as above. ED provider has reviewed this report. - EKG 1655 Cardiac Rate: Tachycardia - 109 bpm EKG Rhythm: Sinus Tachycardia ST Segment: Non-Specific Summary of EKG Findings: nml axis, low voltage Re-Evaluation - Re-Evaluation 1 Re-Evaluation Time: 17:25 Change: Worse Comment: Pt developing more erythematous vescicles on UE. Abdominal Pain Fem Course/Dx - Course Course Of Treatment: Nurse's notes reviewed. Patient with cancer history currently receiving chemotherapy with right-sided abdominal pain rated history of prior appendectomy and cholecystectomy. There is some stool seen in the area on CT scan but otherwise negative for acute inflammatory etiology. She has a slight wbc and a vesicular lesion on her left wrist. This was discussed with her oncologist team who will follow her up closely in the outpatient setting. Treat symptomatically. - Diagnoses Differential Diagnosis: Positive: Bowel Obstruction, Constipation, Diverticulitis, Irritable Bowel Syndrome, Urinary Tract Infection Provider Diagnoses: Abdominal pain, Metastatic breast cancer, Vomiting - Provider Notifications Discussed Care Of Patient With: Cresencio Gill - oncology Time Discussed With Above Provider: 19:13 Instructed by Provider To: Other - Recommends discharge and f/u out-patient. Discharge - Sign-Out/Discharge Documenting (check all that apply): Patient Departure - DC Patient Received Moderate/Deep Sedation with Procedure: No - Discharge Plan Condition: Stable Disposition: HOME Prescriptions: Ondansetron ODT TAB* [Zofran 4 MG Odt TAB*] 4 mg PO Q6H PRN #15 tab.odt PRN Reason: Nausea Polyethylene Glycol 3350* [Miralax*] 17 gm PO BID PRN #10 packet PRN Reason: Constipation Patient Education Materials: Acute Abdominal Pain (ED) Referrals: Jill Cordova MD [Primary Care Provider] - Additional Instructions: Drink plenty of fluids and stay well-hydrated. Dauphin diet as tolerated. MiraLAX may help. Call your oncologist first thing in the morning to schedule prompt follow-up. - Billing Disposition and Condition Condition: STABLE Disposition: Home - Attestation Statements Document Initiated by Janiya: Yes Documenting Scribe: Cassandra Oconnell Provider For Whom Janiya is Documenting (Include Credential): Dr. Jamie Skaggs Scribe Attestation: Cassandra Hook, scribed for Dr. Jamie Skaggs on 10/22/18 at 1953. Scribe Documentation Reviewed: Yes Provider Attestation: The documentation as recorded by the Cassandra toro accurately reflects the service I personally performed and the decisions made by me, Dr. Jamie Skaggs Status of Scribnina Document: Viewed
[2018-10-22 16:59] LABS: ABS Basophils 0.1 10^3/ul (0-0.2); ABS Eosinophils 0 10^3/ul (0-0.6); ABS Lymphocytes 1.7 10^3/ul (1.0-4.8); ABS Monocytes 0.8 10^3/ul (0-0.8); ABS Neutrophils 8.5 10^3/ul (1.5-7.7); ABS Nucleated RBC 0 10^3/ul; Eosinophil % 0.2 %; Hematocrit 40 % (33-41); Lymphocyte % 15.5 %; Mean Corpuscular HGB Conc 32 g/dL (31-36); Mean Corpuscular Hemoglobin 31 pg (27-31); Mean Corpuscular Volume 95 fL (80-97); Nucleated Red Blood Cells % 0.3; Platelet Count 401 10^3/uL (150-450); Red Blood Count 4.21 10^6 /uL (3.70-4.87); Red Cell Distribution Width 20 % (10.5-15); White Blood Count 11.1 10^3/uL (3.5-10.8)
[2018-10-22] MEDS ORDERED: Metoclopramide IV* 5 MG/ML 2 ML VIAL IV ONE (17:25)
[2018-10-22] MEDS ORDERED: diPHENhydraMINE IV* 50 MG/ML 1 ml VIAL (BENADRYL) IV ONE (17:25)
[2018-10-22 17:26] LABS: Albumin 3.8 g/dL (3.2-5.2); Albumin/Globulin Ratio 1.3 (1-3); BUN/Creatinine Ratio 10.3 (8-20); C Reactive Protein 42.4 mg/L (<8.01); EGFR African American 86.8 (>60); EGFR Non-African American 71.8 (>60); Potassium 4.1 mmol/L (3.5-5.0); Total Bilirubin 0.3 mg/dL (0.2-1.0); Total Protein 6.8 g/dL (6.4-8.9)
[2018-10-22 19:35] VITALS: BP 98/62
== END 2018-10-22 19:35 | disposition home or self-care (01) ==
LOC: ED 16:11
DX: C50.919 Malignant neoplasm of unspecified site of unspecified female breast (principal); C78.7 Secondary malignant neoplasm of liver and intrahepatic bile duct; C79.51 Secondary malignant neoplasm of bone; C79.31 Secondary malignant neoplasm of brain; R11.10 Vomiting, unspecified; K42.9 Umbilical hernia without obstruction or gangrene; R94.31 Abnormal electrocardiogram [ECG] [EKG]; J44.9 Chronic obstructive pulmonary disease, unspecified; M19.90 Unspecified osteoarthritis, unspecified site; K51.90 Ulcerative colitis, unspecified, without complications; F41.9 Anxiety disorder, unspecified; F32.9 Major depressive disorder, single episode, unspecified; F17.210 Nicotine dependence, cigarettes, uncomplicated; R10.9 Unspecified abdominal pain; Z88.8 Allergy status to other drugs, medicaments and biological substances; Z91.048 Other nonmedicinal substance allergy status
CPT/HCPCS: 36415; 74176; 80053; 83605; 83690; 85025; 86140; 87040; 93005; 96361; 96374; 96375; 99283; J1200; J2405; J2765

== ENCOUNTER 2018-10-30 15:55 | Observation (INO) | payer OTHER ==
[2018-10-30] MEDS ORDERED: Acetaminophen TAB* 325 MG PO PRN (16:45)
[2018-10-30] MEDS ORDERED: Piperacillin/Tazobac ADVAN(*) 3.375 GM in NS 0.9% 100 ML* 100 ML IVPB ONE (16:45)
[2018-10-30] MEDS ORDERED: NS 0.9% 1000 ML** 1,000 ML IV SCH (16:45)
[2018-10-30] MEDS ORDERED: Zosyn per Pharmacy* NOTE FOLLOW UP SCH (17:00)
[2018-10-30] MEDS ORDERED: Polyethylene Glycol 3350* 17 GM PACKET PO PRN (17:05)
[2018-10-30] MEDS ORDERED: Albuterol HFA INHALER* 8 gm MDI INH PRN (17:05)
[2018-10-30] MEDS ORDERED: Ondansetron ODT TAB* 4 MG PO PRN (17:05)
[2018-10-30] MEDS ORDERED: ALPRAZolam TAB* 0.5 MG PO PRN (17:05)
[2018-10-30] MEDS ORDERED: BREXPIPRAZOLE 2 MG PO SCH (18:00)
[2018-10-30] MEDS ORDERED: fentaNYL PATCH 25 MCG/HR TRANSDERM SCH (18:00)
[2018-10-30] MEDS ORDERED: Mirtazapine TAB* 15 MG PO SCH (18:00)
[2018-10-30] MEDS ORDERED: fentaNYL PATCH 50 MCG/HR TRANSDERM SCH (18:00)
[2018-10-30] MEDS ORDERED: fentaNYL PATCHs 100 MCG/HR TRANSDERM SCH (18:00)
[2018-10-30] MEDS: HYDROmorphone INJ1* 1 MG/ML SYRINGE IV SLOW PU PRN ×2 (18:35→22:43)
[2018-10-30] MEDS ORDERED: Iodixanol* (CONTRAST) 320 MG/ML 100 ML SDV IV ONE (18:40)
[2018-10-30] MEDS: fentaNYL Patch Check Q Shift 1 NOTE FOLLOW UP SCH (19:27)
[2018-10-30] MEDS ORDERED: (Brexpiprazole [Rexulti] 2 MG) PO SCH (19:32)
[2018-10-30] MEDS ORDERED: fentaNYL Patch Check Q Shift 1 NOTE FOLLOW UP ONE (21:00)
[2018-10-30] MEDS: DULoxetine DR CAP* 30 MG CAP.DR PO SCH (21:26)
[2018-10-30] MEDS: ZOSYN 3.375 GM Q8H per EXTENDED INFUSION IVPB SCH ×2 (22:30)
[2018-10-31] MEDS: HYDROmorphone INJ1* 1 MG/ML SYRINGE IV SLOW PU PRN ×2 (04:03→09:00)
[2018-10-31 04:17] LABS: ABS Basophils 0 10^3/ul (0-0.2); ABS Eosinophils 0 10^3/ul (0-0.6); ABS Lymphocytes 0.7 10^3/ul (1.0-4.8); ABS Monocytes 0.1 10^3/ul (0-0.8); ABS Neutrophils 3.1 10^3/ul (1.5-7.7); ABS Nucleated RBC 0 10^3/ul; Eosinophil % 0.3 %; Hematocrit 35 % (33-41); Hemoglobin 11.6 g/dL (12.0-16.0); Lymphocyte % 17.3 %; Mean Corpuscular HGB Conc 33 g/dL (31-36); Mean Corpuscular Hemoglobin 31 pg (27-31); Mean Corpuscular Volume 94 fL (80-97); Mean Platelet Volume 7.5 fL (7.4-10.4); Nucleated Red Blood Cells % 0; Platelet Count 203 10^3/uL (150-450); Red Blood Count 3.75 10^6 /uL (3.70-4.87); Red Cell Distribution Width 19 % (10.5-15)
[2018-10-31 04:35] LABS: Albumin 3.4 g/dL (3.2-5.2); Albumin/Globulin Ratio 1.3 (1-3); BUN/Creatinine Ratio 13.4 (8-20); Calcium 8.4 mg/dL (8.6-10.3); EGFR African American 117.4 (>60); Globulin 2.6 g/dL (2-4); Magnesium 2.2 mg/dL (1.9-2.7); Potassium 3.9 mmol/L (3.5-5.0); Total Bilirubin 0.4 mg/dL (0.2-1.0)
[2018-10-31] MEDS: ZOSYN 3.375 GM Q8H per EXTENDED INFUSION IVPB SCH ×2 (05:26)
[2018-10-31] MEDS: fentaNYL Patch Check Q Shift 1 NOTE FOLLOW UP SCH (06:30)
[2018-10-31] MEDS ORDERED: Pantoprazole TAB * 40 MG TAB PO SCH (09:00)
[2018-10-31] MEDS ORDERED: Cetirizine* 10 MG TAB PO SCH (09:00)
[2018-10-31] MEDS ORDERED: Rivaroxaban TAB(*) 20 MG TAB PO SCH (09:00)
[2018-10-31] MEDS: DULoxetine DR CAP* 30 MG CAP.DR PO SCH (09:00)
[2018-10-31 09:49] VITALS: BP 125/68
--- NOTE | 2018-10-31 10:16 | PN ---
Progress Note - Progress Note Date of Service: 10/31/18 SOAP: Subjective: []Better today. No fevers overnight. Pain is bad this am but has not been on oxycodone, feels home medication will work. Wants to go home. Breathing fine, no chest pain. Still RUQ abdominal pain. Acetaminophen (Tylenol Tab*) 650 mg PO Q6H PRN PRN Reason: FEVER Albuterol (Ventolin Hfa Inhaler*) 2 puff INH Q6H PRN PRN Reason: SHORTNESS OF BREATH Alprazolam (Xanax Tab*) 1 mg PO QID PRN PRN Reason: ANXIETY Cetirizine HCl (Zyrtec*) 10 mg PO DAILY COUNTS INCLUDE 234 BEDS AT THE [facility]; Protocol Last Admin: 10/31/18 09:00 Dose: 10 mg Duloxetine HCl (Cymbalta Cap*) 30 mg PO BID COUNTS INCLUDE 234 BEDS AT THE [facility] Last Admin: 10/31/18 09:00 Dose: 30 mg Fentanyl (Duragesic Patch 25 Mcg/Hr*) 25 mcg TRANSDERM Q72H COUNTS INCLUDE 234 BEDS AT THE [facility] Last Admin: 10/30/18 19:31 Dose: 25 mcg Fentanyl (Duragesic Patch 100 Mcg/Hr *) 100 mcg TRANSDERM Q72H COUNTS INCLUDE 234 BEDS AT THE [facility] Last Admin: 10/30/18 19:33 Dose: 100 mcg Heparin Sodium (Porcine) (Heparin Flush Port (Ivad)) 5 ml FLUSH DAILY COUNTS INCLUDE 234 BEDS AT THE [facility]; Protocol Last Admin: 10/31/18 09:05 Dose: 5 ml Hydromorphone HCl (Dilaudid Inj1s*) 0.5 mg IV SLOW PU Q4H PRN PRN Reason: Pain/VÁZQUEZ Last Admin: 10/31/18 09:00 Dose: 0.5 mg Sodium Chloride (Ns 0.9% 1000 Ml) 1,000 mls @ 75 mls/hr IV PER RATE COUNTS INCLUDE 234 BEDS AT THE [facility] Last Admin: 10/31/18 05:26 Dose: 75 mls/hr Piperacillin Sod/Tazobactam (Sod 3.375 gm/ Sodium Chloride) 100 mls @ 25 mls/ hr IVPB Q8H COUNTS INCLUDE 234 BEDS AT THE [facility] Last Admin: 10/31/18 05:26 Dose: 25 mls/hr Mirtazapine (Remeron Tab*) 30 mg PO QPM COUNTS INCLUDE 234 BEDS AT THE [facility] Last Admin: 10/30/18 18:35 Dose: 30 mg (Brexpiprazole [ (Rexulti] 2 Mg)) 2 mg PO QPM COUNTS INCLUDE 234 BEDS AT THE [facility] Ondansetron HCl (Zofran Odt Tab*) 4 mg PO Q6H PRN PRN Reason: NAUSEA Pantoprazole Sodium (Protonix Tab*) 40 mg PO DAILY COUNTS INCLUDE 234 BEDS AT THE [facility] Last Admin: 10/31/18 09:00 Dose: 40 mg Pharmacy Consult (Zosyn Per Pharmacy*) 1 note FOLLOW UP .ZOSYN PER PHARMACY COUNTS INCLUDE 234 BEDS AT THE [facility] Pharmacy Profile Note (Fentanyl Patch Check Q Shift) 1 note FOLLOW UP 0700, 1900 COUNTS INCLUDE 234 BEDS AT THE [facility] Last Admin: 10/31/18 06:30 Dose: 1 note Polyethylene Glycol/Electrolytes (Miralax*) 8.5 gm PO BID PRN PRN Reason: CONSTIPATION Rivaroxaban (Xarelto(*)) 20 mg PO DAILY COUNTS INCLUDE 234 BEDS AT THE [facility] Last Admin: 10/31/18 09:00 Dose: 20 mg Objective: [] Vital Signs Temp Pulse Resp BP Pulse Ox 98.3 F 100 16 125/68 98 10/31/18 09:48 10/31/18 09:48 10/31/18 09:48 10/31/18 09:48 10/31/18 09:48 HEENT: MM, no lesions CTA RRR s1S2 tachy Obese, diffuse RUQ pain no rebound or guarding, good BS Ext tr edema Neuro AAOx 3 CT scan : no clear findings to account for pain or fevers. No nephritis, no pnemonia. no hydro but cannot evaluate for stone, GB normal and no liver lesions. Bone windows fine. Assessment: []43 year MBC to brain and on chemotherapy, has been stable but with mild rise in tumor marker. Presents with fever t0 101 two days after chemotherapy. She has +LE and WBC on UA, CT negative. Feels better today and wants to go home, no additional fevers. Ddx: Reaction to Taxotere, tumor fever or UTI. Plan: []1. Will discharge with 7 days total anx, Augment x 6 days,. 2. Pain. Will continue Fentanyl and Oxycodone, cymnbalta 3. Will plan follow up next week in clinic.
--- NOTE | 2018-10-31 11:04 | DS ---
DISCHARGE SUMMARY: DATE OF ADMISSION: 10/30/18 DATE OF DISCHARGE: 10/31/18 DISCHARGE DIAGNOSES: 1. Breast cancer. 2. Chronic back pain. 3. Fevers, post chemotherapy. HOSPITAL COURSE: She came in yesterday two days after chemotherapy with a fever of 101 and increasing right upper quadrant pain. She was placed on IV fluids, Zosyn and had a CT scan of chest, abdomen and pelvis. On the CT scan, there is no acute explanation for pain or fevers. She had an UA that showed leukocyte esterase and white blood cells. She defervesced overnight and this morning feels a little bit better. She has chronic back pain, which remains severe, but she feels her home medications would be adequate and she has been getting home today. She is not neutropenic and blood counts are stable. DISCHARGE MEDICATIONS: 1. Albuterol 2 puffs q.6 p.r.n. 2. Alprazolam 1 mg p.o. q.i.d. p.r.n. anxiety. 3. Brexpiprazole 2 mg at night. 4. Zyrtec 10 mg daily. 5. Cymbalta 30 mg p.o. b.i.d. 6. Fentanyl 25 mcg q.72 hours. 7. Fentanyl 100 mcg q.72 hours. 8. Remeron 30 mg p.o. q.h.s. 9. Zofran p.o. q.6 hours p.r.n. nausea. 10. Protonix 40 mg p.o. daily. 11. MiraLAX 17 g p.o. b.i.d. p.r.n. constipation. 12. Xarelto 20 mg p.o. daily. 13. Augmentin 875 p.o. b.i.d. for 6 days. 14. Soma 250 mg q.6 hours p.r.n. back pain. 15. Vitamin D 4000 units a day. 16. Flurazepam 15 mg at bedtime. 17. Naproxen 220 mg q.6 p.r.n. 18. Oxycodone 5 to 10 mg q.6 p.r.n. pain. 19. Trazodone 400 mg at bedtime. I will plan followup in clinic next week for pain management and evaluation prior to next chemotherapy. [id number]/[facility] #: [id number] [facility]
== END 2018-10-31 11:40 | disposition home or self-care (01) ==
LOC: MEDTELE 17:18 → INTOOBSV 17:18 → OBSVTOIN 17:18
PROVIDERS: ADMIT Internal Medicine Hematology & Oncology; ATTEND Internal Medicine Hematology & Oncology
DX: C50.919 Malignant neoplasm of unspecified site of unspecified female breast (principal); R10.9 Unspecified abdominal pain; R05 Cough; M54.9 Dorsalgia, unspecified; G89.29 Other chronic pain; R50.9 Fever, unspecified; Z92.21 Personal history of antineoplastic chemotherapy; R10.11 Right upper quadrant pain; E66.9 Obesity, unspecified; F17.210 Nicotine dependence, cigarettes, uncomplicated
CPT/HCPCS: 36415; 71260; 74177; 80053; 83735; 85025; 96361; 96365; 99217; 99222; A9270-GY; G0378; J1170; J1642; J2543; Q9967

== ENCOUNTER 2018-12-31 15:42 | Observation (INO) | payer OTHER ==
--- OUTSIDE RECORDS SUMMARY | 2018-12-31 15:53 | XMS REPORT | Continuity of Care Document ---
:1975 External Reference #:[id number] Author Name Vivian Gaticaten Care Team Providers Name Role Phone Marleni Richardson MD Primary Care Physician Unavailable Payers Date Identification Numbers Payment Provider Subscriber Policy Number: [id number] [employer] Jimenez Guevara PayID: [id number] [address] [address] [place] [address] Problems Active Problems Provider Date Panic disorder with agoraphobia Robert Serrano M.D. Onset: 05/14/2011 Insomnia Robert Serrano M.D. Onset: 05/14/2011 Tobacco user Robert Serrano M.D. Onset: 05/14/2011 Current tear of lateral cartilage Terrance Rose M.D. Onset: 05/14/2011 AND/OR meniscus of knee Derangement of lateral meniscus Robert Serrano M.D. Onset: 05/14/2011 Depressive disorder Robert Serrano M.D. Onset: 05/14/2011 Hyperlipidemia Robert Serrano M.D. Onset: 05/14/2011 Blood chemistry abnormal Robert Serrano M.D. Onset: 05/14/2011 Disorder of lumbar disc Robert Serrano M.D. Onset: 05/14/2011 Obstructive sleep apnea syndrome Robert Serrano M.D. Onset: 06/13/2011 Chest pain Priscilla Fay M.D. Onset: 05/07/2012 Palpitations Priscilla Fay M.D. Onset: 05/07/2012 Dyspnea Jewels KellerD. Onset: 05/07/2012 Asthma Maine Herman MD Onset: 12/13/2017 Asthma Maine Herman MD Onset: 12/13/2017 Syncope and collapse Zeynep Mckinnon N.P. Onset: 06/07/2018 Chronic obstructive lung disease Zeynep Mckinnon N.P. Onset: 06/07/2018 Malignant neoplasm of female breast Zeynep Mckinnon N.P. Onset: 06/07/2018 Secondary malignant neoplasm of liver Zeynep Mckinnon N.P. Onset: 06/07/2018 and intrahepatic bile duct Secondary malignant neoplasm of bone Zeynep Mckinnon N.P. Onset: 06/07/2018 Lesion of ulnar nerve Vic Collado MD Onset: 10/14/2018 Disorder of shoulder Vic Collado MD Onset: 10/14/2018 Family History Date Family Member(s) Observation Comments General No Current Problems Father sarcoidosis Father arrythmia Father [place] Father Pulmonary Embolism (Pe) Mother Unknown First Son Alive And Well Second Son Alive And Well Siblings 1 Sister, hx of PE and Sarcoidosis First Sister sarcoidosis, arrythmia Grandfather scaroidosis Social History Type Date Description Comments Sex Unknown Marital Status Single Lives With children x2 Occupation Disabled Tobacco Use Start: Unknown Patient is a current Began smoking at cigarette smoker, age 22, smokes 4-5 smokes every day per day and has quit off and on Smoking Status Reviewed: 12/04/18 Patient is a current Began smoking at cigarette smoker, age 22, smokes 4-5 smokes every day per day and has quit off and on ETOH Use Denies alcohol use Recreational Drug Use Never Used Drugs Tobacco Use Start: Unknown Light tobacco smoker (10 or fewer cigarettes/day) Exercise Type/Frequency Exercises rarely Exercise Limitations Back Pain Allergies, Adverse Reactions, Alerts Active Allergies Reaction Severity Comments Date Compazine body twists up 11/15/2010 Phenergan body "twists up" 05/07/2012 Effexor Urticaria hives 05/07/2012 Latex rash 06/24/2018 Medications Active Medications SIG Qnty Indications Ordering Date Provider Colace 2 tab in am and 90caps Marshal DTrenton 08/25/2018 100mg Capsules 2 tab in pm Sharifa French Spiriva Respimat inhale two puffs 12units Maine Herman, 12/17/2017 by mouth every MD 1.25mcg/Act Aerosol day ( Not using) Carisoprodol 1 tablet po qid Unknown 250mg Fluconazole one by mouth Unknown 200mg daily x14 days ( Tablets started taking 06/23/18) SM Naproxen Sodium 1 tablet po twice Patricia Cordero, daily COAL TRAMMER 220mg Tablets Fentanyl apply 1 patch Unknown 100mcg/HR every 3 days Patches 72HR Cymbalta 1 by mouth bid Unknown 30mg Caps DR Beck Symbicort 1 puff twice a 12gm Maine Virgil, day ( Not using ) 160-4.5mcg/Act Aerosol Oxygen please use o2 at Unknown Misc 2l/min at night ( not using ) Trazodone HCL take 4 tablet by Unknown 100mg mouth at bedtime Tablets Lupron Depot-Ped q 3 months Unknown (3-Month) injection 11.25mg (Ped) Kit Xarelto 1 by mouth every Unknown 20mg Tablets day Rexulti once at bedtime Unknown 2mg Tablets Vitamin D High 4 by mouth every Unknown Potency day ( unsure of 1000Unit dose will call Capsules can confirm) Imodium A-D as needed Unknown 2mg Tablets Oxycodone HCL 1 by mouth every Unknown 5mg 6 hours as needed Tablets pain Mirtazapine 1 by mouth every Unknown 30mg day Tablets Dispers Alprazolam qid prn Unknown 1mg Tablets History Medications Amoxicillin/Clavulanate 1 tab by mouth 21tabs J01.10 Orlando Prieto 2014 - Potassium three times per Willy, 06/13/2015 500-125mg Tablets day M.DTrenton Sumatriptan Succinate inject twice a 4units Gui Orozco 11/16/2014 - Refill day as needed Sharifa Garza 03/15/2016 4mg/0.5ML Solution severe migraine Cartridge max 2 days/wk; supply with autoinjector Cymbalta 1 po qd 30caps 311 [place] 06/13/2011 - 60mg Caps DR Kiran Serrano, 05/07/2012 Sharifa Lexapro 2 po qd 60tabs [place] 03/23/2011 - 20mg Tablets Pachikara, 06/13/2011 Sharifa Zithromax Z-Tacho 2tab today and 1tabs 466.0 [place] 03/12/2011 - 250mg Tablets 1tab daily x Pachika, 05/14/2011 4days M.DTrenton Ambien 1/2 to 1 tab hs 30tabs 780.52 [place] 02/06/2011 - 10mg Tablets prn Pachika, 05/07/2012 Sharifa Prevpac 1 dose PO bid 14units Randolph Prieto 01/01/2011 - 30/500/500 Misc x14 days [place], 03/12/2011 Sharifa,FACP Imitrex 1 tab po. november 9tabs 346.80 Randolph Prieto 12/28/2010 - 100mg Tablets repeat x1 after [place], 03/12/2011 2hours if Jermain Skaggs,FACP recurs Bentyl 1 tab PO qid 30tabs 789.09 Randolph Prieto 12/28/2010 - 20mg Tablets [place], 05/14/2011 Sharifa,FACP Nicoderm CQ once daily 30units [place] 12/04/2010 - 21mg/24HR Patches 24HR [facility] [place], 05/14/2011 Sharifa Mobic once daily 30tabs 719.06 [place] 11/29/2010 - 15mg Tablets Sebika, 02/06/2011 Sharifa Lexapro 2 tab once daily 60tabs 311 [place] 11/29/2010 - 20mg Tablets [place]ikara, 12/13/2010 Sharifa Nicoderm CQ once daily 30units 305.1 [place] 11/29/2010 - 14mg/24HR Patches 24HR Zach, 12/04/2010 Sharifa Metoprolol Tartrate 1 by mouth twice Unknown - 50mg Tablets a day 06/23/2018 Ambien CR 1 every night at Unknown - 12.5mg Tablets ER bedtime 06/23/2018 Oxymorphone HCL ER 1 by mouth twice Unknown - 20mg Tablets ER a day Unknown 12HR Oxymorphone HCL ER 1 by mouth twice Unknown - 10mg Tablets ER a day as needed Unknown 12HR pain Prazosin HCL 2 by mouth daily Unknown - 2mg Capsules 03/15/2016 Escitalopram Oxalate 2 by mouth every Unknown - 20mg Tablets day 03/15/2016 Soma two times a day Unknown - 350mg Tablets as needed 05/04/2015 Gabapentin 2 by mouth three Unknown - 100mg Capsules times daily Unknown Proair HFA 2 puffs by mouth Unknown - 108(90Base) mcg/Act every 4 hours as Unknown Aerosol needed Abilify 1 by mouth every Unknown - 10mg Tablets day 03/15/2016 Ibuprofen 2 by mouth as Unknown - 200mg Capsules needed 06/23/2018 Trazodone HCL 3 po qhs 90tabs Unknown - 150mg Tablets Unknown Lexapro 30tabs Unknown - 20mg Tablets 05/07/2012 Clarithromycin 14tabs Unknown - 500mg Tablets 05/07/2012 Amoxicillin 40tabs Unknown - 500mg Tablets 05/07/2012 Omeprazole 1 po qd 30caps Unknown - 20mg Capsules DR 05/07/2012 Lexapro 1 po qd 30tabs Robert - 20mg Tablets [facility] [place], 11/29/2010 Sharifa Lyrica 1 po bid Unknown - 75mg Capsules 11/15/2014 Fentanyl q 48hrs Unknown - 50mcg/HR Patches 72HR 06/23/2018 Opana po q8hrs Unknown - 10mg Tablets 11/15/2014 Opana ER po q12h Unknown - 30mg Tablets ER 12HR 05/07/2012 Vital Signs Date Vital Result Comment 12/04/2018 1:56pm Height 65 inches 5'5" Weight 281.00 lb Heart Rate 110 /min Body Temperature 97.4 F Pain Level 5 BMI (Body Mass Index) 46.8 kg/m2 10/14/2018 3:37pm Heart Rate 120 /min BP Systolic 118 mmHg BP Diastolic 68 mmHg Respiratory Rate 18 /min Body Temperature 98.0 F Pain Level 2 09/16/2018 10:08am Heart Rate 96 /min BP Systolic Sitting 122 mmHg BP Diastolic Sitting 86 mmHg Respiratory Rate 18 /min Body Temperature 97.2 F 09/09/2018 3:02pm Height 65 inches 5'5" Weight 283.00 lb BP Systolic 128 mmHg BP Diastolic 60 mmHg Respiratory Rate 18 /min Pain Level 5 BMI (Body Mass Index) 47.1 kg/m2 08/26/2018 1:45pm Height 65 inches 5'5" Weight 283.00 lb Heart Rate 94 /min BP Systolic Sitting 116 mmHg BP Diastolic Sitting 82 mmHg BMI (Body Mass Index) 47.1 kg/m2 Ejection Fraction 50-55% echo 07/24/18 06/24/2018 1:39pm Height 65 inches 5'5" Weight 273.00 lb without shoes Heart Rate 140 /min BP Systolic Sitting 118 mmHg Rue lg cuff BP Diastolic Sitting 80 mmHg Rue lg cuff BP Systolic Standing 120 mmHg Rue lg cuff BP Diastolic Standing 78 mmHg Rue lg cuff Respiratory Rate 18 /min O2 % BldC Oximetry 94 % at room air BMI (Body Mass Index) 45.4 kg/m2 03/18/2018 1:18pm Height 65 inches 5'5" Weight 268.00 lb Heart Rate 88 /min BP Systolic Sitting 102 mmHg BP Diastolic Sitting 72 mmHg Respiratory Rate 14 /min O2 % BldC Oximetry 94 % BMI (Body Mass Index) 44.6 kg/m2 12/17/2017 1:36pm Height 65 inches 5'5" Weight 267.00 lb w/o shoes Heart Rate 82 /min irreg BP Systolic Sitting 140 mmHg Rue lg cuff BP Diastolic Sitting 102 mmHg Rue lg cuff BP Systolic Standing 130 mmHg Rue BP Diastolic Standing 90 mmHg Rue Respiratory Rate 16 /min BMI (Body Mass Index) 44.4 kg/m2 Ejection Fraction 40-45% as of 11/2017 echo 12/13/2017 7:28am Height 65 inches 5'5" Weight 269.00 lb Heart Rate 100 /min BP Systolic Sitting 104 mmHg BP Diastolic Sitting 70 mmHg Respiratory Rate 14 /min O2 % BldC Oximetry 92 % BMI (Body Mass Index) 44.8 kg/m2 Neck Circumference in inches 16.25 08/23/2017 11:30am Heart Rate 120 /min BP Systolic Sitting 126 mmHg BP Diastolic Sitting 88 mmHg Respiratory Rate 18 /min Body Temperature 98.4 F 08/13/2017 11:23am Height 65 inches 5'5" Weight 240.00 lb Heart Rate 74 /min BP Systolic 120 mmHg BP Diastolic 84 mmHg Respiratory Rate 16 /min Body Temperature 97.9 F BMI (Body Mass Index) 39.9 kg/m2 08/15/2016 2:28pm Heart Rate 80 /min Respiratory Rate 18 /min Body Temperature 99.0 F 07/31/2016 1:02pm Height 65 inches 5'5" Weight 260.00 lb Heart Rate 80 /min BP Systolic 132 mmHg BP Diastolic 86 mmHg Respiratory Rate 18 /min Body Temperature 98.0 F BMI (Body Mass Index) 43.3 kg/m2 03/16/2016 3:38pm Height 65 inches 5'5" Weight 250.00 lb Pain Level 5 BMI (Body Mass Index) 41.6 kg/m2 06/14/2015 8:32am Height 65.25 inches 5'5.25" Weight 257.38 lb Heart Rate 92 /min BP Systolic Sitting 110 mmHg BP Diastolic Sitting 80 mmHg Respiratory Rate 14 /min Body Temperature 98.0 F BMI (Body Mass Index) 42.5 kg/m2 05/05/2015 2:20pm Height 65.25 inches 5'5.25" Weight 255.00 lb Heart Rate 90 /min BP Systolic Sitting 124 mmHg BP Diastolic Sitting 80 mmHg Respiratory Rate 14 /min Body Temperature 98.3 F BMI (Body Mass Index) 42.1 kg/m2 11/16/2014 1:08pm Height 65.25 inches 5'5.25" Weight 250.00 lb Heart Rate 84 /min BP Systolic Sitting 116 mmHg BP Diastolic Sitting 78 mmHg Respiratory Rate 16 /min BMI (Body Mass Index) 41.3 kg/m2 06/25/2012 11:22am Height 65.25 inches 5'5.25" Weight 200.00 lb Heart Rate 100 /min BP Systolic 104 mmHg BP Diastolic 70 mmHg BMI (Body Mass Index) 33.0 kg/m2 05/07/2012 1:30pm Height 65.25 inches 5'5.25" Weight 199.00 lb Heart Rate 108 /min BP Systolic Sitting 128 mmHg BP Diastolic Sitting 82 mmHg Respiratory Rate 20 /min BMI (Body Mass Index) 32.9 kg/m2 06/13/2011 1:26pm Height 65.25 inches 5'5.25" Weight 201.00 lb Heart Rate 108 /min BP Systolic Sitting 125 mmHg BP Diastolic Sitting 70 mmHg BMI (Body Mass Index) 33.2 kg/m2 05/14/2011 1:26pm Height 65.25 inches 5'5.25" Weight 207.00 lb Heart Rate 60 /min BP Systolic Sitting 120 mmHg BP Diastolic Sitting 75 mmHg BMI (Body Mass Index) 34.2 kg/m2 03/12/2011 4:32pm Weight 205.00 lb Heart Rate 72 /min BP Systolic Sitting 100 mmHg BP Diastolic Sitting 60 mmHg 02/06/2011 9:44am Weight 205.00 lb Heart Rate 72 /min BP Systolic Sitting 148 mmHg BP Diastolic Sitting 72 mmHg Respiratory Rate 18 /min 12/28/2010 10:58am Weight 207.00 lb Heart Rate 76 /min BP Systolic Sitting 116 mmHg BP Diastolic Sitting 70 mmHg Body Temperature 97.8 F lt ear 12/13/2010 1:44pm Height 65 inches 5'5" Weight 205.00 lb Heart Rate 90 /min BP Systolic Sitting 124 mmHg BP Diastolic Sitting 80 mmHg BMI (Body Mass Index) 34.1 kg/m2 11/29/2010 1:58pm Height 65 inches 5'5" Weight 214.00 lb Heart Rate 74 /min BP Systolic Sitting 112 mmHg BP Diastolic Sitting 78 mmHg BMI (Body Mass Index) 35.6 kg/m2 11/15/2010 1:11pm Height 65 inches 5'5" Weight 207.00 lb Heart Rate 94 /min BP Systolic Sitting 110 mmHg BP Diastolic Sitting 86 mmHg BMI (Body Mass Index) 34.4 kg/m2 Results Test Date Facility Test Result H/L Range Note Laboratory test [facility] Surgical SEE RESULT 1 finding [address] [place] [address] [phone] Laboratory test [facility] (HCG) Negative N Negative 2 finding [address] [place] [address] [phone] Laboratory test [facility] Urine Negative Negative 3 finding [address] [place] [address] [phone] Laboratory test [facility] TSH (Thyroid 0.71 MIU/ML 0.34-5.60 finding [address] [place] [address] Horm) [phone] Surgical [facility] Surgical [address] Pathology --- <[place] [address] NOTE> [phone] Urinalysis [facility] Ua Color [place] Yellow W/Microscopic [address] [place] [address] [phone] Appearance-Urine TURBID Clear Specific Roscoe-Ur 1.024 1.010-1.030 Esterase-Urine TRACE Abnormal Negative Nitrite POSITIVE Abnormal Negative Hadxnjamxmpt-Hc-HSH NEGATIVE Negative Protein-Urine NEGATIVE Negative PH-Urine 5.5 5-9 Blood-Urine NEGATIVE Negative Ketones-Urine TRACE Abnormal Negative Bilirubin-Ur SEE ICTOTEST Abnormal Negative Glucose-Urine NEGATIVE Negative WBC-Urine 0-2 0-5 RBC-Urine 0-2 0-2 Epith Cells-Ur FEW None Bacteria-Urine 1+ None Amorphous Sed-U 4+ None Laboratory test 06/27/2011 [facility] C Reactive < 0.5 mg/dL Less Than finding [address] Protein 0.5 [place] [address] [phone] Comp Metabolic 06/27/2011 [facility] Sodium 138 mmol/L 135- [address] [place] [address] [phone] Potassium 3.4 mmol/L Low 3.5-5.0 Chloride 102 mmol/L 101-111 Co2 (Carbon Dioxide) 26.0 mmol/L 22-32 Anion Gap 10.0 mmol/L 2-11 5 Glucose 97 mg/dL 70-100 BUN 7 mg/dL 6-24 Creatinine 0.7 mg/dL 0.50-1.40 One Over Creatinine 1.42 BUN/Creatinine Ratio 10.0 8-20 Calcium 9.4 mg/dL 8.1-9.9 Total Protein 7.9 GM/DL 6.2-8.1 Albumin 4.1 GM/DL 3.6-5.4 Globulin 3.8 GM/DL 2-4 Albumin/Globulin Ratio 1.1 1-3 Bilirubin Total 1.0 mg/dL 0.4-1.5 6 Alkaline Phosphatase 96 U/L 30-110 Alt (SGPT) 61 U/L High 14-54 Ast (Sgot) 58 U/L High 12-42 eGFR Non- 96.4 > 60 eGFR 123.9 > 60 7 Laboratory test 06/27/2011 [facility] Ictotest NEGATIVE [address] [place] [address] [phone] Liver Function 12/28/2010 [facility] Total Protein 6.4 GM/DL 6.2-8.[address] [place] [address] [phone] Albumin 4.0 GM/DL 3.6-5.4 Globulin 2.4 GM/DL 2-4 Albumin/Globulin Ratio 1.7 1-3 Bilirubin Total 0.8 mg/dL 0.4-1.5 9 Bilirubin Direct 0.4 mg/dL 0.1-0.5 Indirect Bilirubin 0.4 mg/dL 0.3-1.0 10 Alkaline Phosphatase 89 U/L 30-110 Alt (SGPT) 43 U/L 14-54 Ast (Sgot) 46 U/L High 12-42 H. Pylori 12/28/2010 [facility] H. Pylori 1.03 index Abnormal () 11 Evaluation [address] [facility] [place] [address] [phone] H. Pylori Igm AB Negative Negative H. Pylori Iga AB Negative Negative CBC Auto Diff 11/24/2010 [facility] White Blood 10.2 CUMM 4.8 -10.[address] [place] [address] [phone] Red Cell Count 5.07 CUMM 4.2-5.4 Hemoglobin [...] 0-0.6 Abs Basophils 0.2 0-0.2 Laboratory test 11/24/2010 [facility] Uric Acid 5.4 mg/dL 2.6 -7.2 finding [address] [place] [address] [phone] Lyme Disease Serology Negative Negative 12 Ciara (Antinuclear 11/24/2010 [facility] Antinuclear AB NEGATIVE Negative Antibodies) [address] [place] [address] [phone] Reviewed By (SEE NOTE) 13 Laboratory test 11/24/2010 [facility] TSH 3.54 MIU/ML 0.34- 5.60 finding [address] [place] [address] [phone] Rheumatoid Factor 22.1 IU/mL High Less Than 20 Erythrocyte Sed Rate 13 MM/HR 0-15 Lipid Profile 11/24/2010 [facility] Triglyceride 288 mg/dL High 40-200 (Trig/Chol/HDL) [address] [place] [address] [phone] Cholesterol 250 mg/dL High Less Than 200 14 High Density Lipoprotein 26 mg/dL Low 40-60 15 Cholesterol/HDL Ratio 9.62 AVERAGE High 1-4.44 Low Density Lipoprotein 166 mg/dL High Less Than 100 16 Comp Metabolic Panel 11/24/2010 [facility] Sodium 134 mmol/L Low 135-145 [address] [place] [address] [phone] Potassium 3.9 mmol/L 3.5-5.0 Chloride 102 mmol/L [...] > 60 eGFR 148.1 > 60 19 1 SEE RESULT BELOW Name: JIMENEZ GUEVARA : [address]: Darren Moraes MD Acct: [id number] Unit: [id number] AGE: 41 Location: OR Re08/15/17 SEX: F [place] [facility] [place]: [id number] MARCIAL: 08/15/17- [facility] DR: Darren Moraes MD REQ: [id number] RECD: 08/15/172050 STATUS: SOUT _ ORDERED: LEVEL 3 FINAL [...] and the wall thickness averages 0.1 cm. Roll Contour Grinder sections, one cassette. Signed (signature on file) Brenda Teran MD 1555 END OF REPORT * ML=Testing performed at Main Lab DEPARTMENT OF PATHOLOGY, [address] [place] [address] Jaxon Schaffer M.D. Director [facility] # [id number] 2 If is still suspected, please repeat test after 48 to 72 hours. This test detects intact HCG only and is indicated for the early detection of . 3 If is still suspected, please repeat test after 48 to 72 hours. This test detects intact HCG only and is indicated for the early detection of . 4 --- RUN DATE: 07/26/11 [facility] NMI LIVE PAGE 1 RUN TIME: 1306 Specimen Inquiry RUN USER: INTERFACE -- [id number] Status: REG REF Re07/24/11 Age/Sex: 35/F Unit#: [id number] Location: [facility]. : [birth year] -- Specimen: [id number] SOUT Spec Date: 07/24/[address]: Bertrand rodriguez MD Spec Type: SURGICAL P Received: 07/25/114824 Copies to: Robert kessler MD SPECIMEN 1) TRANSVERSE COLON BIOPSIES 2) TRANSVERSE COLON POLYP 3) DESCENDING COLON BIOPSIES 4) SIGMOID COLON BIOPSIES 5) RECTO-SIGMOID BIOPSIES 6) RECTAL BIOPSIES HISTORY POST-OP DIAGNOSIS: Colonoscopy to cecum. Multiple biopsies. CLINICAL INFORMATION: Ulcerative colitis. GROSS DESCRIPTION 1) The specimen is received in formalin labelled Jimenez Guevara, Transverse Colon Biopsy, and consists of multiple [...] is received in formalin labelled Jimenez Guevara, Descending Colon Polyp, and consists of multiple tellez soft tissue fragments measuring 0.6 x 0.4 x 0.1 cm. Submitted entirely, one cassette. 4) The specimen is received in formalin labelled Jimenez Guevara, Sigmoid Colon Biopsy, and consists of two [...] entirely, one cassette. -- DEPARTMENT OF PATHOLOGY, [address] [place] [address] [facility] Permit #[id number] Sharifa Gaytan M.D. Rail [employer] Maintenance Mechanic Dir franko -- -- RUN DATE: 07/26/11 [facility] NMI LIVE PAGE 2 RUN TIME: 1306 Specimen Inquiry RUN USER: INTERFACE -- Name: JIMENEZ GUEVARA Status: REG REF Re07/24/11 Age/Sex: 35/F Unit#: [id number] Location: [facility]. : [birth year] -- -- CONTINUED -- DIAGNOSIS [...] 07/26/11 1305 -- -- DEPARTMENT OF PATHOLOGY, [address] [place] [address] [facility] Permit #[id number] Jaxon Schaffer M.D. Director Kelechi Palmer M.D. Rail Car Maintenance Mechanic Dir franko -- 5 Anion gap measurement may be of limited value in the presence of any alkalosis, especially in a combined acid base disorder. . 6 A metabolite of Naproxen, O-desmethylnaproxen, has been shown to interfere with the [place] method for measuring total bilirubin. Samples from patients who have taken Naproxen have shown spurious elevation in total bilirubin levels. 7 Because ethnic data is not always readily [...] 15-29 5 Kidney failure <15 (or dialysis) 8 ICTOTEST IS A QUALITATIVE CONFIRMATORY TEST FOR BILIRUBIN. 9 A metabolite of Naproxen, O-desmethylnaproxen, has been shown to interfere with the [place] method for measuring total bilirubin. Samples from [...] submitted in 7-14 days. Test Performed by: [facility] Dpt of Lab Med and Pathology [address] [place] [address] Perianesthesia Nurse: Jatin Santiago III, M.D. 13 REVIEWED BY [...] Kidney failure <15 (or dialysis) Procedures Date Code Description Status 09/16/2018 32167 Avulsion Nail Plate Simple Single Completed 08/26/2018 16857 EKG Tracing & Interpretation Completed 07/24/2018 94997 ECHO Transthorasic Realtime 2D W Doppler & Color Flow Completed Hosp 07/16/2018 19283 Event Monitor/Phys Review/Interp. Completed 06/24/2018 94789 EKG Tracing & Interpretation Completed 06/10/2018 54899 ECHO Transthorasic Realtime 2D W Doppler & Color Flow Completed Hosp 06/10/2018 99419 EKG, Interpretation Only Completed 04/29/2018 84327 ECHO Transthorasic Realtime 2D W Doppler & Color Flow Completed Hosp 01/31/2018 47323 ECHO Transthorasic Realtime 2D W Doppler & Color Flow Completed Hosp 01/08/2018 60856 Pulmonary Function><Bronchodil Completed 01/08/2018 91931 Plethysmography Determination Lung Volumes & Per Airway Completed Resist 01/08/2018 02807 Diffusing Capacity Completed 12/29/2017 76072 Polysomnography Sleep Staging 4+ Parameters Completed 12/17/2017 99245 EKG Tracing & Interpretation Completed 12/13/2017 08981 ECHO Transthorasic Realtime 2D W Doppler & Color Flow Completed Hosp 11/20/2017 03226 EKG, Interpretation Only Completed 11/14/2017 03103 ECHO Transthorasic Realtime 2D W Doppler & Color Flow Completed Hosp 11/14/2017 79769 EKG, Interpretation Only Completed 08/15/2017 54955 Laparoscopy Cholecystectomy Completed 08/15/2017 75043 Laparoscopy Cholecystectomy Completed 07/09/2017 31741 EKG, Interpretation Only Completed 02/04/2017 13882 ECHO Transthorasic Realtime 2D W Doppler & Color Flow Completed Hosp 01/11/2017 53577 ECHO Transthoracic, Real-Time 2D With Doppler And Color Completed Flow 11/22/2016 25625 ECHO Transthorasic Realtime 2D W Doppler & Color Flow Completed Hosp 10/03/2016 89643 EKG, Interpretation Only Completed 10/02/2016 81476 ECHO Transthorasic Realtime 2D W Doppler & Color Flow Completed Hosp 09/10/2016 16735 ECHO Transthorasic Realtime 2D W Doppler & Color Flow Completed Hosp 09/09/2016 29370 EKG, Interpretation Only Completed 08/09/2016 24577 Fluoroscopic Guidance For Cent Completed 08/09/2016 66484 Insertion Tunneled Cent Venous Cathr W Subcut Port 5 Completed Yrs Or Oldr 08/01/2016 43400 ECHO Transthoracic, Real-Time 2D With Doppler And Color Completed Flow 07/18/2016 [id number] Mammogram Completed 12/23/2012 70737 Arthrotomy Metatarsophalangeal JT Completed 12/23/2012 88182 Arthrotomy Metatarsophalangeal JT Completed 06/05/2012 68459 Stress ECHO Interpretation/Report Hospital Completed 06/05/2012 72763 Holter Monitoring 24 HR New Completed 06/05/2012 06110 Treadmill Interp/Report Only Completed 06/05/2012 40595 Stress Test Supervsn W/Out I/R Completed 05/22/2012 45703 ECHO Transthoracic, Real-Time 2D With Doppler And Color Completed Flow 05/21/2012 77779 ECHO Stress Test Incl Perf Contiuous ekg Monitoring Completed W/Phys Superv 05/21/2012 04176 ECHO Stress Test Incl Perf Contiuous ekg Monitoring Completed W/Phys Superv 05/07/2012 78021 EKG Tracing & Interpretation Completed 07/24/2011 [id number] Colonoscopy Completed Encounters Type Date Location Provider Dx Diagnosis Office Visit 11/28/2018 [facility] Dermatology Mp Lewis MD R68.3 Clubbing of fingers 10:10a L60.1 Onycholysis B35.1 Tinea unguium Office Visit 10/14/2018 3:15p Orthopedic Vic Collado, G56.22 Lesion of Services Of Autumn CARRENO ulnar nerve, left upper limb M75.42 Impingement syndrome of left shoulder Office Visit 09/09/2018 3:00p Orthopedic Vic Collado, M25.512 Pain in left Services Of shoulder Autumn G56.22 Lesion of ulnar nerve, left upper limb M75.42 Impingement syndrome of left shoulder Office Visit 08/26/2018 1:30p Wil Prieto I49.3 Ventricular Cardiology Of Sharifa French premature Escrow Representative AT [facility] depolarization Office Visit 06/24/2018 1:30p Wil Prieto R55 Syncope and collapse Cardiology Of Sharifa Frenhc Escrow Representative AT [facility] R00.1 Bradycardia, unspecified 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 collapse I49.3 Ventricular premature depolarization Office Visit 06/07/2018 10:48a [facility] Zeynep Mckinnon, R55 Syncope and Assoc,pc N.P. 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 Office Visit 03/18/2018 1:45p [facility] [place] J44.9 Chronic Sleep Services Of MD [place] obstructive Escrow Representative pulmonary disease, unspecified G47.33 Obstructive sleep apnea (adult) (pediatric) F17.210 Nicotine dependence, cigarettes, uncomplicated Z68.41 Body mass index (BMI) 40.0-44.9, adult Office Visit 12/17/2017 1:30p [facility] Marshal Prieto R06.02 Shortness of Of Escrow Representative AT [facility] Sharifa French breath I42.9 Cardiomyopathy, unspecified Office Visit 12/13/2017 7:30a [facility] [place] R06.02 Shortness of Sleep Services Of [place] breath Escrow Representative F17.210 Nicotine dependence, cigarettes, uncomplicated R06.83 Snoring E66.01 Morbid (severe) obesity due to excess calories Z68.41 Body mass index (BMI) 40.0-44.9, adult Office 08/13/2017 [facility] Darren Moraes K80.10 Calculus of Visit 11:15a Of Parvin Skaggs gallbladder w chronic cholecyst w/o obstruction Office 03/09/2017 [facility] Jabier R51 Headache Visit 12:01p Clinic Sharifa [place] Office 03/08/2017 Neurohospitalist Gisella Lainez MD R51 Headache Visit 12:00p Clinic Office 03/05/2017 Neurohospitalist Gisella Lainez MD R51 Headache Visit 11:51a Clinic H53.8 Other visual disturbances E66.01 Morbid (severe) obesity due to excess calories C50.919 Malignant neoplasm of unsp site of unspecified female breast Office Visit 03/03/2017 12:28p [facility] Robert Guerrero, R51 Headache Assoc,pc PA Hospitalists R11.0 Nausea I82.891 Chronic embolism and thrombosis of other specified veins C50.919 Malignant neoplasm of unsp site of unspecified female breast Office Visit 03/02/2017 12:27p [facility] Assoc,mohit Macdonald M.D. R51 Headache Hospitalists R11.0 Nausea I82.891 Chronic embolism and thrombosis of other specified veins C50.919 Malignant neoplasm of unsp site of unspecified female breast Office Visit 09/26/2016 9:54a [facility] Ashley D70.9 Neutropenia, Assoc,pc [place], DO unspecified Hospitalists R50.81 Fever presenting with conditions classified elsewhere I82.890 Acute embolism and thrombosis of other specified veins G89.29 Other chronic pain Office Visit 09/10/2016 9:50a [facility] Marshal Prieto I47.2 Ventricular Of Parvin French M.D. tachycardia R00.0 Tachycardia, unspecified Office Visit 09/09/2016 [facility] Mustapha I82.890 Acute embolism 11:44a Assoc,mohit Rios MD and thrombosis Hospitalists of other specified veins C50.919 Malignant neoplasm of unsp site of unspecified female breast C79.51 Secondary malignant neoplasm of bone I47.2 Ventricular tachycardia Office Visit 09/08/2016 11:43a [facility] Raj Macdonald, I82.890 Acute embolism Assocmohit M.D. and thrombosis Hospitalists of other specified veins C50.919 Malignant neoplasm of unsp site of unspecified female breast C79.51 Secondary malignant neoplasm of bone F32.89 Other specified depressive episodes Office Visit 07/31/2016 1:00p Surgical Darren Mayer C50.511 Diana josue of [facility] Sharifa Moraes lower-outer quadrant of right female breast Office Visit 03/16/2016 3:00p Orthopedic Renetta Gray, M25.462 Effusion, left Services Of [place] M25.562 Pain in left knee Office Visit 06/14/2015 8:30a [facility] Orlando Prieto R50.9 Fever, For Infectious Sharifa Aguilera unspecified Diseases Office Visit 05/05/2015 2:20p [facility] Orlando Prieto J01.10 Acute frontal For Ty Aguilera M.D. sinusitis, Diseases unspecified Office Visit 11/16/2014 1:00p [facility] Gui Oorzco 346.80 Migraine Other Neurologic Sharifa Garza W/O Intractable Services Of [facility] W/O Status Migrainosus Office Visit 12/22/2012 2:00p Orthopedic Earl Hedrick, 730.97 Bone Infection Services Of Sharifa Unspec Ankle & [facility] Foot 892.1 Open Wound Foot Except Toe(S) Alone Complicated Office Visit 06/25/2012 11:00a [facility] Mele Wells S. 785.1 Palpitations Sharifa Fay 272.4 Hyperlipidemia Other Unspec 427.69 Premature Beats Other Office 06/05/2012 [facility] Priscilla S. 794.31 Electrocardiogram Visit 10:30a Mele Fay M.D. (ECG) (EKG) Abnormal 401.1 Hypertension Benign 785.1 Palpitations 785.0 Tachycardia Unspec Office Visit 05/21/2012 [facility] Priscilla S. 327.23 Obstructive Sleep 11:30a Mele Fay M.D. Apnea Adult & Pediatric 305.1 Tobacco Use Disorder 786.50 Pain Chest Unspec 785.1 Palpitations 786.05 Shortness Of Breath Office Visit 06/13/2011 1:20p DO Not Use [facility] Robert Serrano, 311 Depressive AT [facility] Sharifa Disorder Not Elsewhere Spec 780.52 Insomnia Unspecified 327.23 Obstructive Sleep Apnea Adult & Pediatric Office Visit 05/14/2011 DO Not Use Escrow Representative [place] 272.4 Hyperlipidemia [facility] Unspec 790.6 Abnormal Blood Chemistry Other 311 Depressive Disorder Not Elsewhere Spec 780.52 Insomnia Unspecified 305.1 Tobacco Use Disorder 300.21 Agoraphobia W/ Panic Disorder Office Visit 03/12/2011 4:20p DO Not Use Escrow Representative [place] 300.21 Agoraphobia W/ [facility] Panic Disorder 780.52 Insomnia Unspecified 305.1 Tobacco Use Disorder 466.0 Bronchitis Acute Office Visit 02/06/2011 9:40a DO Not Use Escrow Representative [place] Zach, 789.09 Pain Abdominal [facility] Other Spec Site 300.21 Agoraphobia W/ Panic Disorder 780.52 Insomnia Unspecified Office Visit 01/03/2011 2:15p Orthopedic Terrance Rose, 716.96 Arthropathy Unspec Services [facility].Ida Lower Leg C.M.A. 836.1 Dislocation Knee Tear Of Lateral Cartilage Or Meniscus Curre Office Visit 12/28/2010 10:30a DO Not Use Escrow Representative Ivelisse Mcgill, 789.09 Pain Abdominal AT [facility] N.P. Other Spec Site 346.80 Migraine Other W/O Intractable W/O Status Migrainosus Office Visit 12/13/2010 1:40p DO Not Use Escrow Representative [place] 717.49 Derangement AT [facility] Sharifa Serrano Lateral Meniscus Other 311 Depressive Disorder Not Elsewhere Spec Office Visit 11/29/2010 1:40p DO Not Use Escrow Representative Robert Zach, 719.06 Effusion Joint AT [facility].Ida Lower Leg 305.1 Tobacco Use Disorder 311 Depressive Disorder Not Elsewhere Spec 272.4 Hyperlipidemia Other Unspec 790.6 Abnormal Blood Chemistry Other Office Visit 11/15/2010 1:00p DO Not Use Escrow Representative Robert Tammyra, 311 Depressive [facility] Disorder Not Elsewhere Spec 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 at [facility]01/07/2019 11:00 am - Marshal French M.D. at [facility]12/04/2018 - Vic Collado, MDM75.42 Impingement syndrome of left ijskyvpwU10.22 Lesion of ulnar nerve, left upper limbFollow up:Follow up: with Jefry or Noemi
--- OUTSIDE RECORDS SUMMARY | 2018-12-31 15:53 | XMS REPORT | Continuity of Care Document ---
:1975 External Reference #:[id number] Author Name Ciara Zepeda Care Team Providers Name Role Phone Marleni Richardson MD Primary Care Physician Unavailable Payers Date Identification Numbers Payment Provider Subscriber Policy Number: [id number] Tony/[employer] Medicaid Jimenez Guevara PayID: [id number] [address] [address] [place] [address] Problems Active Problems Provider Date Panic disorder [...] Palpitations Priscilla Fay M.D. Onset: 05/07/2012 Dyspnea Qusubhash Fay M.D. Onset: 05/07/2012 Asthma [place] Herman MD Onset: 12/13/2017 Asthma [place] Herman MD Onset: 12/13/2017 Syncope and collapse Zeynep Mckinnon N.P. Onset: 06/07/2018 Chronic obstructive lung disease Zeynep Mckinnon N.P. Onset: 06/07/2018 Malignant neoplasm of female breast Kristina Galo.Tish Onset: 06/07/2018 Secondary malignant neoplasm of liver Zeynep Mckinnon N.P. Onset: 06/07/2018 and intrahepatic bile duct Secondary malignant neoplasm of bone Zeynep Mckinnon N.P. Onset: 06/07/2018 Lesion of ulnar nerve Vic Collado MD Onset: 10/14/2018 Disorder of shoulder Vic Collado MD Onset: 10/14/2018 Family History Date Family Member(s) Observation Comments General No Current Problems Father sarcoidosis Father arrythmia Father [place] Father Pulmonary Embolism (Pe) Mother Unknown First [...] quit off and on Smoking Status Reviewed: 12/08/18 Patient is a current Began smoking at [...] 1 tablet po twice Patricia Cordero, daily [employer] WORK[employer] 220mg Tablets Fentanyl apply 1 patch Unknown [...] autoinjector Cymbalta 1 po qd 30caps 311 [place] 06/13/2011 - 60mg Caps DR Kiran Serrano, 05/07/2012 Sharifa Lexapro 2 po qd 60tabs [place] 03/23/2011 - 20mg Tablets Pachikara, 06/13/2011 Sharifa Zithromax Z-Tacho 2tab today and 1tabs 466.0 [place] 03/12/2011 - 250mg Tablets 1tab daily x Pachika, 05/14/2011 4days M.[place]on Ambien 1/2 to 1 tab hs 30tabs 780.52 [place] 02/06/2011 - 10mg Tablets prn Pachika, 05/07/2012 Sharifa Prevpac 1 dose PO bid 14units Randolph Prieto 01/01/2011 - 30/500/500 Misc x14 days [place], 03/12/2011 Sharifa,FACP Imitrex 1 tab po. november 9tabs 346.80 Randolph Prieto 12/28/2010 - 100mg Tablets repeat x1 after [place], 03/12/2011 2hours if Jermain Skaggs,FACP recurs Bentyl 1 tab PO qid 30tabs 789.09 Randolph Prieto 12/28/2010 - 20mg Tablets [place], 05/14/2011 Sharifa,FACP Nicoderm CQ once daily 30units [place] 12/04/2010 - 21mg/24HR Patches 24HR [facility] [place], 05/14/2011 Sharifa Mobic once daily 30tabs 719.06 [place] 11/29/2010 - 15mg Tablets Pachikara, 02/06/2011 Sharifa Lexapro 2 tab once daily 60tabs 311 [place] 11/29/2010 - 20mg Tablets P[place]ara, 12/13/2010 Sharifa Nicoderm CQ once daily 30units 305.1 [place] 11/29/2010 - 14mg/24HR Patches 24HR Zach, 12/04/2010 [...] po qd 30tabs Robert - 20mg Tablets Zach, 11/29/2010 Sharifa Lyrica 1 po bid Unknown - 75mg Capsules 11/15/2014 Fentanyl q 48hrs Unknown - 50mcg/HR Patches 72HR 06/23/2018 Opana po q8hrs Unknown - 10mg Tablets 11/15/2014 Opana ER po q12h Unknown - 30mg Tablets ER 12HR 05/07/2012 Vital Signs Date Vital Result Comment 12/08/2018 3:03pm Height 65 inches 5'5" Weight 276.75 lb Heart Rate 120 /min BP Systolic 144 mmHg BP Diastolic 80 mmHg Respiratory Rate 18 /min Pain Level 6 BMI (Body Mass Index) 46.0 kg/m2 12/04/2018 1:56pm Height 65 inches 5'5" Weight [...] Test Result H/L Range Note Laboratory test [facility] Surgical SEE RESULT 1 finding [address] [place] [address] [phone] [facility] (HCG) Negative N Negative 2 finding [address] [place] [address] [phone] [facility] Urine Negative Negative [address] [place] [address] [phone] [facility] TSH (Thyroid 0.71 MIU/ML 0.34-5.[address] [place] [address] Horm) [phone] [facility] Surgical [address] Pathology --- <[place] [address] NOTE> [phone] [facility] Ua Color [place] Yellow W/Microscopic 1 [place] [address] [phone] Appearance-Urine TURBID Clear Specific [place]-Ur 1.024 1.010-1.030 Esterase-Urine TRACE Abnormal Negative Nitrite POSITIVE Abnormal Negative Pxpicjtiiqrs-Ak-TWX NEGATIVE Negative Protein-Urine NEGATIVE Negative PH-Urine 5.5 5-9 Blood-Urine NEGATIVE Negative Ketones-Urine TRACE Abnormal Negative Bilirubin-Ur SEE ICTOTEST Abnormal Negative Glucose-Urine NEGATIVE Negative WBC-Urine 0-2 0-5 RBC-Urine 0-2 0-2 Epith Cells-Ur FEW None Bacteria-Urine 1+ None Amorphous Sed-U 4+ None Laboratory test 06/27/2011 [facility] C Reactive < 0.5 mg/dL Less Than finding [facility] Protein 0.5 [place] [address] [phone] Comp Metabolic 06/27/2011 [facility] Sodium 138 mmol/L 135- 145 [place] [address] [phone] Potassium 3.4 mmol/L Low 3.5-5.0 Chloride 102 [...] 123.9 > 60 7 Laboratory test 06/27/2011 [facility] Ictotest NEGATIVE [address] [place] [address] [phone] Liver Function 12/28/2010 [facility] Total Protein 6.4 GM/DL 6.2-8.[address] [place] [address] [phone] Albumin 4.0 GM/DL 3.6-5.4 Globulin 2.4 GM/DL 2-4 Albumin/Globulin Ratio 1.7 1-3 Bilirubin Total 0.8 mg/dL 0.4-1.5 9 Bilirubin Direct 0.4 mg/dL 0.1-0.5 Indirect Bilirubin 0.4 mg/dL 0.3-1.0 10 Alkaline Phosphatase 89 U/L 30-110 Alt (SGPT) 43 U/L 14-54 Ast (Sgot) 46 U/L High 12-42 H. Pylori 12/28/2010 [facility] H. Pylori 1.03 index Abnormal () 11 Evaluation 101 [facility] [place] [place] [address] [phone] H. Pylori Igm AB Negative Negative H. Pylori Iga AB Negative Negative CBC Auto Diff 11/24/2010 [facility] White Blood 10.2 CUMM 4.8 -10.[address] [place] [address] [phone] Red Cell Count 5.07 CUMM 4.2-5.4 Hemoglobin [...] Abs Basophils 0.2 0-0.2 Laboratory test 11/24/2010 [facility] Uric Acid 5.4 mg/dL 2.6 -7.2 finding [address] [place] [address] [phone] Lyme Disease Serology Negative Negative 12 Ciara (Antinuclear 11/24/2010 [facility] Antinuclear AB NEGATIVE Negative Antibodies) [address] [place] [address] [phone] Reviewed By (SEE NOTE) 13 Laboratory test 11/24/2010 [facility] TSH 3.54 MIU/ML 0.34- 5.60 finding [address] [place] [address] [phone] Rheumatoid Factor 22.1 IU/mL High Less Than 20 Erythrocyte Sed Rate 13 MM/HR 0-15 Lipid Profile 11/24/2010 [facility] Triglyceride 288 mg/dL High 40-200 (Trig/Chol/HDL) [address] [place] [address] [phone] Cholesterol 250 mg/dL High Less Than 200 14 High Density Lipoprotein 26 mg/dL Low 40-60 15 Cholesterol/HDL Ratio 9.62 AVERAGE High 1-4.44 Low Density Lipoprotein 166 mg/dL High Less Than 100 16 Comp Metabolic Panel 11/24/2010 [facility] Sodium 134 mmol/L Low 135-145 [address] [place] [address] [phone] Potassium 3.9 mmol/L 3.5-5.0 Chloride 102 mmol/L [...] [address]: Darren Moraes MD Acct: [id number] Unit: [id number] AGE: 41 Location: OR Re08/15/17 SEX: F Status: DEVAUGHN WHITMAN SPEC: [id number] MARCIAL: 08/15/17- SUBM DR: Darren Moraes MD REQ: [id number] RECD: [id number]/15/17-9460 STATUS: SOUT _ ORDERED: LEVEL 3 FINAL [...] and the wall thickness averages 0.1 cm. Documentum Consultant sections, one cassette. Signed (signature on file) Brenda Teran MD 1555 END OF REPORT * ML=Testing performed at Main Lab DEPARTMENT OF PATHOLOGY, [address] [place] [address] Jaxon Schaffer M.D. Director [facility] # [id number] 2 If is still suspected, please repeat test after 48 to 72 hours. This test detects intact HCG only and is indicated for the early detection of . 3 If is still suspected, please repeat test after 48 to 72 hours. This test detects intact HCG only and is indicated for the early detection of . 4 --- RUN DATE: 07/26/11 [facility] NMI LIVE PAGE 1 RUN TIME: 1306 Specimen Inquiry RUN USER: INTERFACE -- Name: JIMENEZ GUEVARA [facility]#: [id number] Status: REG REF Re07/24/11 Age/Sex: 35/F Unit#: [id number] [facility] [birth year] -- Specimen: [id number] SOUT Spec Date: 07/24/[address]: Bertrand rodriguez MD Spec Type: SURGICAL P Received: 07/25/115486 Copies to: Robert kessler MD SPECIMEN 1) [...] entirely, one cassette. -- DEPARTMENT OF PATHOLOGY, [address] [place] [address] [facility] Permit #[id number] Sharifa Gaytan M.D. Editorial Clerk Dir kator -- -- RUN DATE: 07/26/11 [facility] NMI LIVE PAGE 2 RUN TIME: 1306 Specimen Inquiry RUN USER: INTERFACE -- Name: JIMENEZ GUEVARA [facility]#: [id number] Status: REG REF Re07/24/11 Age/Sex: 35/F Unit#: [id number] Location: [facility]. : 79 -- -- CONTINUED -- [...] 07/26/11 1305 -- -- DEPARTMENT OF PATHOLOGY, [address] [place] [address] [facility] Permit #[id number] Sharifa Gaytan M.D. Editorial Clerk Dir franko -- 5 Anion gap measurement may be of limited value in the presence of any alkalosis, especially in a combined acid base disorder. . 6 A metabolite of Naproxen, O-desmethylnaproxen, has been shown to interfere with the Jenloboik-Alex method for measuring total bilirubin. Samples from [...] has been shown to interfere with the Jendrassik-Alex method for measuring total bilirubin. Samples from [...] submitted in 7-14 days. Test Performed by: [facility] Dpt of Lab Med and Pathology [address] [place] [address] Floor Director: Jatin Santiago III, M.D. 13 REVIEWED BY [...] dialysis) Procedures Date Code Description Status 09/16/2018 50712 Avulsion Nail Plate Simple Single Completed 08/26/2018 75437 EKG Tracing & Interpretation Completed 07/24/2018 98312 ECHO Transthorasic Realtime 2D W Doppler & Color Flow Completed Hosp 07/16/2018 31693 Event Monitor/Phys Review/Interp. Completed 06/24/2018 01536 EKG Tracing & Interpretation Completed 06/10/2018 83166 ECHO Transthorasic Realtime 2D W Doppler & Color Flow Completed Hosp 06/10/2018 35499 EKG, Interpretation Only Completed 04/29/2018 09020 ECHO Transthorasic Realtime 2D W Doppler & Color Flow Completed Hosp 01/31/2018 76804 ECHO Transthorasic Realtime 2D W Doppler & Color Flow Completed Hosp 01/08/2018 40150 Pulmonary Function><Bronchodil Completed 01/08/2018 30939 Plethysmography Determination Lung Volumes & Per Airway Completed Resist 01/08/2018 08149 Diffusing Capacity Completed 12/29/2017 34731 Polysomnography Sleep Staging 4+ Parameters Completed 12/17/2017 87782 EKG Tracing & Interpretation Completed 12/13/2017 26981 ECHO Transthorasic Realtime 2D W Doppler & Color Flow Completed Hosp 11/20/2017 00136 EKG, Interpretation Only Completed 11/14/2017 73749 ECHO Transthorasic Realtime 2D W Doppler & Color Flow Completed Hosp 11/14/2017 46684 EKG, Interpretation Only Completed 08/15/2017 82900 Laparoscopy Cholecystectomy Completed 08/15/2017 18932 Laparoscopy Cholecystectomy Completed 07/09/2017 44097 EKG, Interpretation Only Completed 02/04/2017 80348 ECHO Transthorasic Realtime 2D W Doppler & Color Flow Completed Hosp 01/11/2017 99835 ECHO Transthoracic, Real-Time 2D With Doppler And Color Completed Flow 11/22/2016 88139 ECHO Transthorasic Realtime 2D W Doppler & Color Flow Completed Hosp 10/03/2016 72695 EKG, Interpretation Only Completed 10/02/2016 97583 ECHO Transthorasic Realtime 2D W Doppler & Color Flow Completed Hosp 09/10/2016 39409 ECHO Transthorasic Realtime 2D W Doppler & Color Flow Completed Hosp 09/09/2016 85606 EKG, Interpretation Only Completed 08/09/2016 74335 Fluoroscopic Guidance For Cent Completed 08/09/2016 18367 Insertion Tunneled Cent Venous Cathr W Subcut Port 5 Completed Yrs Or Oldr 08/01/2016 88053 ECHO Transthoracic, Real-Time 2D With Doppler And Color Completed Flow 07/18/2016 11559590 Mammogram Completed 12/23/2012 94979 Arthrotomy Metatarsophalangeal JT Completed 12/23/2012 92550 Arthrotomy Metatarsophalangeal JT Completed 06/05/2012 68727 Stress ECHO Interpretation/Report Hospital Completed 06/05/2012 50625 Holter Monitoring 24 HR New Completed 06/05/2012 43738 Treadmill Interp/Report Only Completed 06/05/2012 34050 Stress Test Supervsn W/Out I/R Completed 05/22/2012 52736 ECHO Transthoracic, Real-Time 2D With Doppler And Color Completed Flow 05/21/2012 81886 ECHO Stress Test Incl Perf Contiuous ekg Monitoring Completed W/Phys Superv 05/21/2012 68295 ECHO Stress Test Incl Perf Contiuous ekg Monitoring Completed W/Phys Superv 05/07/2012 31736 EKG Tracing & Interpretation Completed 07/24/2011 82697004 Colonoscopy Completed Encounters Type Date Location Provider Dx Diagnosis Office Visit 11/28/2018 [facility] Dermatology Mp Lewis MD R68.3 Clubbing of [...] I49.3 Ventricular Cardiology Of Sharifa French premature [employer] AT [facility] depolarization Office Visit 06/24/2018 1:30p Wil Prieto R55 Syncope and collapse Cardiology Of Sharifa French [employer] AT [facility] R00.1 Bradycardia, unspecified 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 collapse I49.3 Ventricular premature depolarization Office Visit 06/07/2018 10:48a [facility] Ino, R55 Syncope and Assoc,pc N.P. 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 Office Visit 03/18/2018 1:45p Pulmonology And [place] J44.9 Chronic Sleep Services Of MD [place] obstructive [employer] pulmonary disease, unspecified G47.33 Obstructive sleep apnea (adult) (pediatric) F17.210 Nicotine dependence, cigarettes, uncomplicated Z68.41 Body mass index (BMI) 40.0-44.9, adult Office Visit 12/17/2017 1:30p Wil Prieto R06.02 Shortness of Of [employer] AT [facility] Sharifa French breath I42.9 Cardiomyopathy, unspecified Office Visit 12/13/2017 7:30a Pulmonology [facility] [place] R06.02 Shortness of Sleep Services Of [place] breath [employer] F17.210 Nicotine dependence, cigarettes, uncomplicated R06.83 Snoring E66.01 Morbid (severe) obesity due to excess calories Z68.41 Body mass index (BMI) 40.0-44.9, adult Office 08/13/2017 [facility] Darren Moraes, K80.10 Calculus of Visit 11:15a Of Parvin [...] unspecified female breast Office Visit 03/03/2017 12:28p [facility] Robert Guerrero, R51 Headache Assoc,pc PA Hospitalists R11.0 Nausea I82.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 tachycardia R00.0 Tachycardia, unspecified Office Visit 09/09/2016 [facility] Mustapha I82.890 Acute embolism 11:44a Assoc,mohit Rios MD and thrombosis Hospitalists of other specified veins C50.919 Malignant neoplasm of unsp site of unspecified female breast C79.51 Secondary malignant neoplasm of bone I47.2 Ventricular tachycardia Office Visit 09/08/2016 11:43a [facility] Raj Macdonald, I82.890 Acute embolism Assmohit capone M.D. and thrombosis Hospitalists of other specified veins C50.919 Malignant neoplasm of unsp site of unspecified female breast C79.51 Secondary malignant neoplasm of bone F32.89 Other specified depressive episodes Office Visit 07/31/2016 1:00p Surgical Darren Mayer C50.511 Diana josue of Associates Of [facility] Sharifa Moraes lower-outer quadrant of right female breast Office Visit 03/16/2016 3:00p Orthopedic Renetta Gray M25.462 Effusion, left Services Of Sharifa knee C.[place]rentonATrenton M25.562 Pain in left knee Office Visit 06/14/2015 8:30a [facility] Orlando Prieto R50.9 Fever, For Infectious Sharifa Aguilera unspecified Diseases Office Visit 05/05/2015 2:20p [facility] [place] Prieto J01.10 Acute frontal For Ty Aguilera M.D. sinusitis, Diseases unspecified Office Visit 11/16/2014 1:00p [facility] Gui Orozco 346.80 Migraine Other Neurologic Sharifa Garza W/O Intractable Services Of [facility] W/O Status Migrainosus Office Visit 12/22/2012 2:00p Orthopedic Earl Hedrick, 730.97 Bone Infection Services Of Sharifa Unspec Ankle & C.M.A. Foot 892.1 Open Wound Foot Except Toe(S) Alone Complicated Office Visit 06/25/2012 11:00a [facility] Mele Wells S. 785.1 Palpitations Sharifa Fay 272.4 Hyperlipidemia Other Unspec 427.69 Premature Beats Other Office 06/05/2012 [facility] Priscilla S. 794.31 Electrocardiogram Visit 10:30a Mele Fay M.D. (ECG) (EKG) Abnormal 401.1 Hypertension Benign 785.1 Palpitations 785.0 Tachycardia Unspec Office Visit 05/21/2012 [facility] Priscilla S. 327.23 Obstructive Sleep 11:30a Mele Fay M.D. Apnea Adult & Pediatric 305.1 Tobacco Use Disorder 786.50 Pain Chest Unspec 785.1 Palpitations 786.05 Shortness Of Breath Office Visit 06/13/2011 1:20p DO Not Use [employer] [place] Tammyra, 311 [facility] Disorder Not Elsewhere Spec 780.52 Insomnia Unspecified 327.23 Obstructive Sleep Apnea Adult & Pediatric Office Visit 05/14/2011 DO Not Use [employer] [place] 272.4 Hyperlipidemia Other 1:20p AT [facility] Sharifa Serrano Unspec 790.6 Abnormal Blood Chemistry Other 311 Depressive Disorder Not Elsewhere Spec 780.52 Insomnia Unspecified 305.1 Tobacco Use Disorder 300.21 Agoraphobia W/ Panic Disorder Office Visit 03/12/2011 4:20p DO Not Use [employer] Robert 300.21 Agoraphobia W/ AT [facility] Sharifa Serrano Panic Disorder 780.52 Insomnia Unspecified 305.1 Tobacco Use Disorder 466.0 Bronchitis Acute Office Visit 02/06/2011 9:40a DO Not Use [employer] Robert Serrano, 789.09 Pain Abdominal [facility] Other Spec Site 300.21 Agoraphobia W/ Panic Disorder 780.52 Insomnia Unspecified Office Visit 01/03/2011 2:15p Orthopedic Terrance Rose, 716.96 Arthropathy Unspec Services Of .DTrenton Lower Leg C.M.A. 836.1 Dislocation Knee Tear Of Lateral Cartilage Or Meniscus Curre Office Visit 12/28/2010 10:30a DO Not Use [employer] Ivelisse Mcgill, 789.09 Pain Abdominal AT [facility] N.P. Other Spec Site 346.80 Migraine Other W/O Intractable W/O Status Migrainosus Office Visit 12/13/2010 1:40p DO Not Use [employer] Robert 717.49 [facility] Lateral Meniscus Other 311 Depressive Disorder Not Elsewhere Spec Office Visit 11/29/2010 1:40p DO Not Use [employer] Robert Zach, 719.06 Effusion Joint [facility] Lower Leg 305.1 Tobacco Use Disorder 311 Depressive Disorder Not Elsewhere Spec 272.4 Hyperlipidemia Other Unspec 790.6 Abnormal Blood Chemistry Other Office Visit 11/15/2010 1:00p DO Not Use [employer] [place] Tammyra, 311 [facility]ressive [facility] Disorder Not Elsewhere Spec 722.93 Disc Disorder Other & Unspec Lumbar Region 300.21 Agoraphobia W/ Panic Disorder 719.46 Pain Joint Lower Leg 305.1 Tobacco Use Disorder V72.62 Laboratory Exam Ordered as Part Of Routine General Med Exam Plan of Treatment Future Appointment(s):01/19/2019 1:30 pm - Y[facility] 11:00 am - Marshal French M.D. at [facility]12/08/2018 - Yazmin Capps M.D.G56.22 Lesion of ulnar nerve , left upper limbNew Therapy:Physical TherapyFollow up:Follow up: 6 weeks
--- NOTE | 2018-12-31 16:11 | ED ---
Shortness of Breath - HPI Summary HPI Summary: Pt is a 43 y/o F presenting to the ED with a chief complaint of shortness of breath suddenly onset yesterday. She reports an associated sore throat, cough, fever, and edema in her bilateral LE. She is not usually on O2, but is on a nasal cannula at bedside. She has stage IV breast CA with metastasis to the brain, liver, spine, and lymph nodes. She is on Herceptin and receives Dexamethasone before her chemotherapy. She last had chemotherapy 1 week ago. - History of Current Complaint Chief Complaint: EDShortnessOfBreath Time Seen by Provider: 12/31/18 15:59 Hx Obtained From: Patient Onset/Duration: Sudden Onset, Lasting Days, Still Present Timing: Constant Current Severity: Moderate Dyspnea At: Rest Aggravating Factors: Nothing Alleviating Factors: Nothing Associated Signs & Symptoms: Cough (Nonproductive), Fever, Edema - Allergy/Home Medications Allergies/Adverse Reactions: Allergies Allergy/AdvReac Type Severity Reaction Status Date / Time venlafaxine Allergy Severe Hives/Diff. Verified 12/31/18 15:49 Breathing/I tching Adhesive Tape Allergy skin break Verified 12/31/18 15:49 [Tegaderm Dressing] down prochlorperazine Allergy See Comment Verified 12/31/18 15:49 promethazine Allergy See Comment Verified 12/31/18 15:49 PMH/Surg Hx/FS Hx/Imm Hx Previously Healthy: No Endocrine/Hematology History: Denies: Hx Anticoagulant Therapy, Hx Bone Marrow Disease, Hx Diabetes, Hx Sickle Cell Disease, Hx Thyroid Disease, Hx Anemia, Other Endocrine/ Hematological Disorders Cardiovascular History: Reports: Hx Congestive Heart Failure, Hx Deep Vein Thrombosis - Recent ovarian vein thrombosis, Hx Hypercholesterolemia, Other Cardiovascular Problems/Disorders - PT STATES DIFFICULTY WITH INJECTION FRACTION -HEART DAMAGE FROM CHEMO Denies: Hx Angina, Hx Cardiomegaly, Hx Coronary Artery Disease, Hx Hypertension, Hx Myocardial Infarction, Hx Pacemaker/ICD, Hx Peripheral Vascular Disease, Hx Rheumatic Fever, Hx Valvular Heart Disease Respiratory History: Reports: Hx Chronic Obstructive Pulmonary Disease (COPD) - STATES EARLY ONSET, Other Respiratory Problems/Disorders - SLEEPS WITH OXYGEN AT NIGHT 2L Denies: Hx Asthma, Hx Lung Cancer, Hx Pulmonary Edema, Hx Pulmonary Embolism , Hx Sleep Apnea GI History: Reports: Other GI Disorders - history of ulcerative colitis Denies: Hx Cirrhosis, Hx Crohn's Disease, Hx Gall Bladder Disease, Hx Gastroesophageal Reflux Disease, Hx Gastrointestinal Bleed, Hx Hiatal Hernia, Hx Irritable Bowel, Hx Jaundice, Hx Ulcer, Hx Urosepsis History: Denies: Hx Kidney Infection, Hx Kidney Stones, Hx Renal Disease, Other Problems/Disorders Musculoskeletal History: Reports: Hx Arthritis, Hx Back Problems Denies: Hx Bursitis, Hx Tendonitis, Other Musculoskeletal History Sensory History: Denies: Hx Cataracts, Hx Contacts or Glasses, Hx Glaucoma, Hx Hearing Aid Opthamlomology History: Denies: Hx Cataracts, Hx Contacts or Glasses, Hx Glaucoma Neurological History: Reports: Hx Migraine, Hx Spinal Cord Injury - herniated disc Denies: Hx Dementia, Hx Headaches, Hx Nerve Disease, Hx Seizures, Hx Transient Ischemic Attacks (TIA), Other Neuro Impairments/Disorders Psychiatric History: Reports: Hx Anxiety, Hx Depression, Hx Panic Disorder - ANXIETY, Hx Post Traumatic Stress Disorder, Hx Suicide Attempt - states she has made three attempts; h/o overdose x 2 Denies: Hx Eating Disorder, Hx Substance Abuse - Cancer History Cancer Type, Location and Year: 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 X2. appendix. POWER PORT 2017. cholecystectomy. LEFT FOOT-SURGICALLY REMOVED TOOTHPICK 2000 Hx Anesthesia Reactions: No - Immunization History Date of Tetanus Vaccine: UTD Date of Influenza Vaccine: NO Infectious Disease History: No Infectious Disease History: Denies: Hx Hepatitis, Hx Human Immunodeficiency Virus (HIV), Traveled Outside the [place] in Last 30 Days - Family History Known Family History: Negative: Cardiac Disease, Hypertension - Social History Alcohol Use: None Hx Substance Use: Yes Substance Use Type: Reports: None Hx Tobacco Use: Yes Smoking Status (MU): Light Every Day Tobacco Smoker Type: Cigarettes Amount Used/How Often: 1/4 PPD, down from PPD Have You Smoked in the Last Year: Yes Review of Systems Positive: Fever Positive: Sore Throat Positive: Shortness Of Breath, Cough Positive: Edema All Other Systems Reviewed And Are Negative: Yes Physical Exam - Summary Physical Exam Summary: Appearance: well appearing, no pain distress Skin: warm, dry, reflects adequate perfusion Head/face: normal Eyes: EOMI, BRIAN ENT: mucous membranes moist Neck: supple, non-tender Respiratory: CTA, breath sounds present, mild respiratory distress Cardiovascular: Tachycardic, pulses symmetrical, port in L chest thats been accessed. Abdomen: non-tender, soft Bowel Sounds: present Musculoskeletal: trace bilateral pitting LE edema Neuro: normal, sensory motor intact, A&Ox3 Triage Information Reviewed: Yes Vital Signs On Initial Exam: Initial Vitals Temp Pulse Resp BP Pulse Ox 97.0 F 106 17 118/69 93 12/31/18 15:46 12/31/18 15:46 12/31/18 15:46 12/31/18 15:46 12/31/18 15:46 Vital Signs Reviewed: Yes Diagnostics - Vital Signs Vital Signs Temp Pulse Resp BP Pulse Ox 12/31/18 15:46 97.0 F 106 17 118/69 93 - Laboratory Result Diagrams: 12/31/18 16:14 12/31/18 16:14 Lab Statement: Any lab studies that have been ordered have been reviewed, and results considered in the medical decision making process. - CT CTA Chest/Thorax CT Interpretation Completed By: Radiologist Summary of CT Findings: 1. SUBOPTIMAL OPACIFICATION OF THE PULMONARY ARTERIES SIGNIFICANTLY LIMITING THE STUDY. THERE IS NO EVIDENCE FOR A CENTRAL PULMONARY EMBOLUS. 2. ENLARGED LIVER WITH DIFFUSE FATTY INFILTRATION. IN ADDITION THERE ARE SEVERAL MORE FOCAL AREAS OF DECREASED DENSITY POSSIBLY REPRESENTING MORE FOCAL FATTY INFILTRATION ALTHOUGH METASTATIC DISEASE CANNOT BE EXCLUDED. ED physician has reviewed this report. - EKG 1810 Cardiac Rate: Tachycardia - 108bpm EKG Rhythm: Sinus Tachycardia ST Segment: Non-Specific Ectopy: None Summary of EKG Findings: Sinus tachycardia. Low voltage. Normal [place]. Normal Interval. Nonspecific ST Course/Dx - Course Course Of Treatment: Patient with dyspnea/hypoxia in the outpatient oncology clinic sent here to rule out pulmonary embolism. She has cough and tachycardia but no fever and clear lungs. A CT angiogram was performed of her chest and identified no large pulmonary emboli. She has no infiltrate or pericardial effusion. She does however require oxygen and was able to be titrated down from 4 L to 2 L. She was hydrated here for her lactic acidosis. There is no evidence for sepsis. She'll be admitted for observation to the hospitalist service and transition to oncology service in the morning. - Diagnoses Differential Diagnosis/HQI/PQRI: Positive: CHF, CA, Pneumonia, Pneumothorax, Pulmonary Embolism, Pulmonary Edema Provider Diagnoses: Dyspnea, Hypoxia, Metastatic breast cancer - Critical Care Time Critical Care Time: 30-74 min - 30 minutes - CCT is EXCLUSIVE of separately billable procedures. Discharge - Sign-Out/Discharge Documenting (check all that apply): Patient Departure - Discharge Plan Condition: Stable Disposition: ADMITTED TO [facility] Referrals: Jill Cordova MD [Primary Care Provider] - - Billing Disposition and Condition Condition: STABLE Disposition: Admitted to [facility] - Attestation Statements Document Initiated by Scribe: Yes Documenting Scribe: Ashley Loera Provider For Whom Janiya is Documenting (Include Credential): Jamie Skaggs MD. Scribe Attestation: IAshley, scribed for Jamie Skaggs MD. on 12/31/18 at 1903. Scribe Documentation Reviewed: Yes Provider Attestation: The documentation as recorded by the [email or web address] accurately reflects the service I personally performed and the decisions made by me, Jamie Skaggs MD. Status of Scribe Document: Viewed Consult Consult: [address] Dudley about the pts present condition. He will be accepting the pt to [facility].
[2018-12-31 16:30] LABS: ABS Eosinophils 0.1 10^3/ul (0-0.6); ABS Lymphocytes 1.4 10^3/ul (1.0-4.8); ABS Monocytes 0.1 10^3/ul (0-0.8); ABS Neutrophils 1.4 10^3/ul (1.5-7.7); Eosinophil % 3.7 %; Hematocrit 32 % (35-47); Hemoglobin 10.7 g/dL (12.0-16.0); Mean Corpuscular HGB Conc 33 g/dL (31-36); Mean Corpuscular Hemoglobin 31 pg (27-31); Mean Corpuscular Volume 93 fL (80-97); Mean Platelet Volume 7.9 fL (7.4-10.4); Nucleated Red Blood Cells % 0.3; Platelet Count 371 10^3/uL (150-450); Red Cell Distribution Width 21 % (10-15); White Blood Count 3.1 10^3/uL (3.5-10.8)
[2018-12-31 16:37] LABS: Activated Partial Thrombo Time 36.2 seconds (26.0-38.0); INR 1.13 (0.82-1.09)
[2018-12-31 16:52] LABS: BUN/Creatinine Ratio 10.9 (8-20); Calcium 8.9 mg/dL (8.6-10.3); EGFR African American 123.7 (>60); EGFR Non-African American 102.3 (>60); Potassium 3.7 mmol/L (3.5-5.0)
[2018-12-31] MEDS ORDERED: Iodixanol* (CONTRAST) 320 MG/ML 100 ML SDV IV ONE (16:58)
[2018-12-31] MEDS ORDERED: NS 0.9% 1000 ML** 1,000 ML IV ONE (18:08)
[2018-12-31] MEDS ORDERED: Acetaminophen TAB* 325 MG PO PRN (20:01)
[2018-12-31] MEDS ORDERED: Ondansetron INJ* 2 MG/ML VIAL IV PRN (20:01)
[2018-12-31] MEDS ORDERED: Al Hydrox/Mg Hydrox/Simet LIQ* 30 ML UDC PO PRN (20:01)
[2018-12-31] MEDS ORDERED: methylPREDNISolone 125 MG* 2 ML VIAL IV ONE (20:05)
[2018-12-31] MEDS ORDERED: Dextrose 50% Syringe 50 ML* 25 GM/50 ML SYRINGE IV PUSH PRN (20:07)
[2018-12-31] MEDS ORDERED: FLURAZEPAM PO PRN (20:08)
[2018-12-31] MEDS ORDERED: oxyCODONE TAB* 5 MG TAB PO PRN (20:08)
[2018-12-31] MEDS ORDERED: Albuterol/Ipratropium NEB.SOL* Albuterol 2.5 MG/Ipratropium 0.5 MG 3 ML INH PRN (20:08)
[2018-12-31] MEDS ORDERED: NON FORMULARY MED* (Naproxen Sodium [Aleve] 220 MG) PO PRN (20:09)
[2018-12-31] MEDS ORDERED: Albuterol HFA INHALER* 8 gm MDI INH PRN (20:09)
[2018-12-31] MEDS ORDERED: Polyethylene Glycol 3350* 17 GM PACKET PO PRN (20:09)
[2018-12-31] MEDS ORDERED: ALPRAZolam TAB* 0.5 MG PO PRN (20:09)
[2018-12-31] MEDS ORDERED: CARISOPRODOL 250 MG PO PRN (20:09)
[2018-12-31] MEDS ORDERED: Azithromycin 500 mg/250 ml NS 500 MG/250 ML BAG IVPB ONE (20:11)
[2018-12-31 20:53] LABS: Magnesium 1.9 mg/dL (1.9-2.7)
[2018-12-31] MEDS ORDERED: Rivaroxaban TAB(*) 20 MG TAB PO SCH (21:00)
[2018-12-31] MEDS ORDERED: Levalbuterol 1.25MG/0.5ML NEB INH SCH (21:00)
[2018-12-31] MEDS ORDERED: traZODone TAB* 100 MG PO SCH (21:00)
[2018-12-31] MEDS ORDERED: BREXPIPRAZOLE 2 MG PO SCH (21:00)
[2018-12-31] MEDS ORDERED: fentaNYL PATCHs 100 MCG/HR TRANSDERM SCH (22:15)
[2018-12-31] MEDS: DULoxetine DR CAP* 30 MG CAP.DR PO SCH (22:19)
[2018-12-31] MEDS ORDERED: Mirtazapine TAB* 15 MG PO SCH (22:45)
--- NOTE | 2018-12-31 22:45 | HP ---
CC: Dr. Jill Cordova * HISTORY AND PHYSICAL: DATE OF ADMISSION: 12/31/18 TIME OF EVALUATION: 1999. PRIMARY CARE PHYSICIAN/ONCOLOGIST: Jill Cordova MD CHIEF COMPLAINT: Hypoxia and shortness of breath. HISTORY OF PRESENT ILLNESS: This is a 43-year-old female with a past medical history of metastatic breast cancer with COPD, still smoking who presented to the emergency room from the oncology office for hypoxia. The patient has been feeling fatigued and has been having issues with tachy kacie syndrome that she is being followed by Cardiology for. She was seen in the office by Dr. Cordova on 12/30/18. The patient was complaining of feeling fatigued. Her heart rate was in the 140s, but her oxygen saturation was 97% on room air. VNS went out to see her today. She was complaining that she was short of breath and it was noted that her sats were 86% on room air at that time. It was recommended that the patient get seen in the oncology office and she was noted to be 82% on room air there, complaining of shortness of breath. There was concern with her history of malignancy that she had a pulmonary embolism and she was sent to the emergency room for further evaluation. The patient states she has dyspnea on exertion and earlier today, she had chest pain with shortness of breath on the right side. She has had a dry cough and 2 days of a low-grade temp between 99 and 100. She has had sore throat and congestion. Her children has been sick with cold recently. She has tried her inhaler with no significant improvement. She is complaining of body aches and pains. She has had consistent right-sided frontal headache that has been ongoing that she thinks is related to the new chemo she started 3 weeks ago. No nausea, vomiting. No abdominal pain. She did have some diarrhea recently after she was treated for infection on her left 4th digit with Flagyl and Augmentin and has since then resolved. The patient states she has been gaining weight with some lower extremity ankle swelling. Otherwise, remaining review of systems is negative. In the emergency room, the patient had labs and, imaging. She was given a liter of fluids and referred to the hospitalist service for further evaluation. PAST MEDICAL HISTORY: 1. Metastatic breast cancer, ER positive, HER2 positive, followed by Dr. Cordova. 2. History of tachycardia, being followed by Cardiology. 3. COPD. 4. Tobacco use. 5. Chronic back pain. 6. Depression. 7. Migraines. 8. History of ovarian vein thrombosis, on anticoagulation. MEDICATIONS: Confirmed with the patient, not accurate in the med rec. Discussed to update this with the ER staff to update it correctly. 1. Oxycodone 10 mg every 6 hours as needed. 2. Fentanyl patch, increased yesterday, 12/30/18, at 200 mcg. 3. 30 mg at bedtime. 4. Trazodone 400 mg at bedtime as needed. 5. Xarelto 20 mg daily at bedtime. 6. MiraLAX as needed. 7. Pantoprazole 40 mg daily. 8. Zofran 4 mg every 6 hours as needed. 9. Aleve 220 mg every 6 hours as needed. 10. Remeron 30 mg daily at bedtime. 11. Cymbalta 30 mg p.o. b.i.d. 12. Vitamin D3 4000 units daily at bedtime. 13. Zyrtec 10 mg daily. 14. Soma 250 mg every 6 hours. 15. Rexulti 2 mg at bedtime. 16. Albuterol inhaler 1 to 2 puffs every 6 hours as needed. 17. Xanax 1 mg 4 times a day p.r.n. ALLERGIES: VENLAFAXINE, ADHESIVE TAPE, PROCHLORPERAZINE, PROMETHAZINE. SOCIAL HISTORY: The patient is . She lives with her 2 children, 14 and 17 years of age. She has been smoking for 20 years. She has cut down to 3 to 4 cigarettes per day. No alcohol or illicit drug use. Her father is her healthcare proxy. She is on disability. Code status, full code. FAMILY HISTORY: Father is alive and healthy. Mother's family history is unknown. REVIEW OF SYSTEMS: A 14-point review of systems as mentioned in the HPI, otherwise negative. PHYSICAL EXAMINATION GENERAL: No acute distress, mildly ill appearing, with her father and uncle at the bedside. VITAL SIGNS: Temp 97, pulse rate 105, respiratory rate 15, oxygen saturation 95 % on 4 L, blood pressure 101/71. HEENT: The patient with head alopecia. Pupils are equal and reactive, anicteric. Oropharynx: Mucous membranes moist. NECK: Supple. No lymphadenopathy. RESPIRATORY: Diminished breath sounds. Bilateral rhonchi with bilateral expiratory wheezing. No increased work of breathing. CARDIAC: Tachycardia. Soft systolic murmur heard throughout. ABDOMEN: Soft, nontender, nondistended. EXTREMITIES: Pedal edema. NEUROLOGIC: Alert and oriented x3. No gross focal neurologic deficits. The patient appears slightly sedated. LABORATORY DATA: White count 3.1, hemoglobin 10.7, hematocrit 32, platelets 271. INR is 1.13. Sodium 137, potassium 3.9, chloride 99, bicarb 32, BUN 7, creatinine 0.64. Lactic acid 3.4. Troponin is 0. RADIOGRAPHIC DATA: Chest CTA, suboptimal opacification of the pulmonary artery , significantly limiting the study. There is no evidence for a central pulmonary embolus, enlarged liver with diffuse fatty infiltration, in addition, there are several more focal areas of decreased density, possibly representing more focal fatty infiltration, although metastatic disease cannot be excluded. EKG shows sinus tachycardia with a rate of 105. ASSESSMENT AND PLAN: This is a 43-year-old female with a past medical history of metastatic breast cancer and COPD who currently is still smoking who presents to the emergency room from the oncology office in the setting of shortness of breath and hypoxia. 1. Shortness of breath and hypoxia. Assessment: Clearly, there is always a concern for PE in somebody with malignancy, though the patient has been compliant on her Xarelto. There is no obvious pulmonary embolism on the CTA, but the study was limited. I suspect this is most likely a COPD exacerbation based on her lung exam and her history related to viral illness. Plan: We will give her Solu-Medrol 125 mg one and I would recommend a short steroid bolus of 40 mg starting in the morning as she does appear having already a cushingoid appearance. We will continue her on nebulizer treatments. We will switch her to Xopenex to avoid more tachycardia and DuoNebs as well and azithromycin for COPD exacerbation. We will try to obtain a sputum culture. The patient may benefit from more maintenance inhalers at discharge and she may need to be discharged home with at least oxygen as needed. We will follow up with Oncology to determine if they want to switch her over to Lovenox for now and follow up with a V/Q scan if this is still a concern. We will hold off at this time and continue on her Xarelto. We will also repeat a lactate and repeat a troponin at this time. 2. Chronic medical problems. The patient is on a significant amount of sedating medications. She confirmed with me her doses and that she is not going to be overly sedated, although she does seem slightly lethargic on my encounter. We will continue her medications and monitor her closely. 3. Hyperglycemia. The patient with an elevated glucose on arrival. We will add on hemoglobin A1c and place her on a lispro sliding scale in the setting of being on steroids. 4. FEN. Regular diet. 5. DVT prophylaxis. The patient scores high risk. She will be on Xarelto. 6. Code status. Full code. Sign out was given to the oncology service and they will take over in the morning. PATIENT TIME: Greater than 50 minutes were spent doing the history and physical , more than half the time spent in direct patient contact. [id number]/[facility] #: [id number] SANKET
[2018-12-31] MEDS: Levalbuterol 1.25MG/0.5ML NEB INH SCH (22:59)
[2018-12-31] MEDS ORDERED: Albuterol 2.5 MG/3 ML NEB.SOL* (0.083%) INH SCH (23:00)
[2018-12-31] MEDS ORDERED: Lactated Ringers 1000 ML Bag* 1,000 ML IV ONE (23:37)
[2019-01-01] MEDS ORDERED: Carisoprodol TAB* 350 MG PO PRN (01:01)
[2019-01-01] MEDS ORDERED: Naproxen TAB* 250 MG PO PRN (01:01)
[2019-01-01] MEDS: Levalbuterol 1.25MG/0.5ML NEB INH SCH ×4 (02:59→15:26)
[2019-01-01 05:27] LABS: ABS Lymphocytes 0.6 10^3/ul (1.0-4.8); ABS Neutrophils 1.8 10^3/ul (1.5-7.7); Eosinophil % 1.1 %; Hematocrit 30 % (35-47); Hemoglobin 9.7 g/dL (12.0-16.0); Lymphocyte % 23.4 %; Mean Corpuscular HGB Conc 33 g/dL (31-36); Mean Corpuscular Hemoglobin 31 pg (27-31); Mean Corpuscular Volume 93 fL (80-97); Nucleated Red Blood Cells % 0.1; Platelet Count 333 10^3/uL (150-450); Red Blood Count 3.16 10^6 /uL (3.70-4.87); Red Cell Distribution Width 21 % (10-15); White Blood Count 2.5 10^3/uL (3.5-10.8)
[2019-01-01 05:54] LABS: BUN/Creatinine Ratio 12.7 (8-20); Calcium 8.5 mg/dL (8.6-10.3); EGFR African American 147.4 (>60); EGFR Non-African American 121.8 (>60); Potassium 4.7 mmol/L (3.5-5.0)
[2019-01-01] MEDS ORDERED: fentaNYL Patch Check Q Shift 1 NOTE SCH (07:00)
[2019-01-01] MEDS ORDERED: fentaNYL Patch Check Q Shift 1 NOTE FOLLOW UP SCH (07:00)
[2019-01-01] MEDS ORDERED: Cetirizine* 10 MG TAB PO SCH (09:00)
[2019-01-01] MEDS ORDERED: predniSONE TAB* 20 MG PO SCH (09:00)
[2019-01-01] MEDS ORDERED: Pantoprazole TAB * 40 MG TAB PO SCH (09:00)
--- NOTE | 2019-01-01 09:03 | PN ---
Progress Note - Progress Note Date of Service: 01/01/19 SOAP: Subjective: []Feels better. Still really tired. Wants to go home. Denies SOB. Still coughing. Denies fevers. Medications: Acetaminophen (Tylenol Tab*) 650 mg PO Q4H PRN PRN Reason: FEVER/PAIN Al Hydrox/Mg Hydrox/Simethicone (Maalox Plus*) 30 ml PO Q6H PRN PRN Reason: INDIGESTION Albuterol (Ventolin Hfa Inhaler*) 2 puff INH Q6H PRN PRN Reason: SHORTNESS OF BREATH Albuterol/Ipratropium (Duoneb (Albuterol 2.5 Mg/Ipratropium 0.5 Mg)) 1 neb INH Q4H PRN PRN Reason: SOB/WHEEZING Alprazolam (Xanax Tab*) 1 mg PO QID PRN PRN Reason: ANXIETY Last Admin: 12/31/18 22:39 Dose: 1 mg Brexpiprazole (Rexulti (Nf)) 2 mg PO QPM [facility] Last Admin: 12/31/18 22:19 Dose: Not Given Carisoprodol (Soma Tab*) 350 mg PO BEDTIME PRN PRN Reason: AGITATION/ INSOMNIA Cetirizine HCl (Zyrtec*) 10 mg PO DAILY [facility] Dextrose (D50w Syringe 50 Ml*) 12.5 gm IV PUSH .FOR FS < 60 - SS PRN PRN Reason: FS < 60 Duloxetine HCl (Cymbalta Cap*) 30 mg PO BID [facility] Last Admin: 12/31/18 22:19 Dose: 30 mg Fentanyl (Duragesic Patch 100 Mcg/Hr *) 200 mcg TRANSDERM Q72H [facility] Last Admin: 12/31/18 22:19 Dose: 200 mcg Flurazepam HCl (Dalmane Cap*) 30 mg PO BEDTIME PRN PRN Reason: INSOMNIA Azithromycin 250 mg/ Sodium (Chloride) 250 mls @ 250 mls/hr IVPB Q24H [facility] Lactated Ringer's (Lactated Ringers 1000 Ml Bag*) 1,000 mls @ 100 mls/hr IV ONCE ONE Stop: 01/01/19 09:36 Last Admin: 12/31/18 23:53 Dose: 100 mls/hr Insulin Human Lispro (Humalog*) 0 units SUBCUT AC [facility]; Protocol Levalbuterol HCl (Xopenex 1.25 Mg/0.5 Ml Neb.Stacie*) 1.25 mg INH [id number] AWAKE [facility] Last Admin: 01/01/19 07:28 Dose: 1.25 mg Mirtazapine (Remeron Tab*) 30 mg PO QPM [facility] Last Admin: 12/31/18 22:39 Dose: 30 mg Naproxen (Naprosyn Tab*) 250 mg PO Q6H PRN PRN Reason: PAIN Ondansetron HCl (Zofran Inj*) 4 mg IV Q4H PRN PRN Reason: NAUSEA/VOMITING Oxycodone HCl (Roxycodone Tab*) 10 mg PO Q6H PRN PRN Reason: PAIN Pantoprazole Sodium (Protonix Tab*) 40 mg PO DAILY [facility] Pharmacy Profile Note (Fentanyl Patch Check Q Shift) 1 note FOLLOW UP 0700, 1900 [facility] Last Admin: 01/01/19 07:23 Dose: 1 note Polyethylene Glycol/Electrolytes (Miralax*) 8.5 gm PO BID PRN PRN Reason: CONSTIPATION Prednisone (Deltasone Tab*) 40 mg PO DAILY [facility] Rivaroxaban (Xarelto(*)) 20 mg PO 2100 [facility] Last Admin: 12/31/18 22:19 Dose: 20 mg Trazodone HCl (Desyrel Tab*) 400 mg PO BEDTIME [facility] Last Admin: 12/31/18 22:39 Dose: 400 mg Objective: [] Vital Signs Temp Pulse Resp BP Pulse Ox 97.7 F 107 18 137/53 97 01/01/19 03:21 01/01/19 07:29 01/01/19 07:29 01/01/19 03:21 01/01/19 07:29 A&Ox3, appears somewhat lethargic but communicating clearly following commands HRR, S1S2, tele SR-ST LS with course crackles, no wheeze today +BS, obese Cushingoid appearance SOW, moving independently Laboratory Results - last 24 hr 12/31/18 12/31/18 12/31/18 16:14 16:14 16:14 WBC 3.1 L RBC 3.50 L Hgb 10.7 L Hct 32 L MCV 93 MCH 31 MCHC 33 RDW 21 H Plt Count 371 MPV 7.9 Neut % (Auto) 45.0 Lymph % (Auto) 46.0 [place] % (Auto) 4.4 Eos % (Auto) 3.7 Baso % (Auto) 0.9 Absolute Neuts (auto) 1.4 L Absolute Lymphs (auto) 1.4 Absolute Monos (auto) 0.1 Absolute Eos (auto) 0.1 Absolute Basos (auto) 0.0 Absolute Nucleated RBC 0.0 Nucleated RBC % 0.3 INR (Anticoag Therapy) 1.13 H APTT 36.2 Sodium 137 Potassium 3.7 Chloride 99 L Carbon Dioxide 32 Anion Gap 6 BUN 7 Creatinine 0.64 Est GFR ( Amer) 123.7 Est GFR (Non-Af Amer) 102.3 BUN/Creatinine Ratio 10.9 Glucose 267 H POC Glucose (mg/dL) Hemoglobin A1c Lactic Acid Calcium 8.9 Magnesium 1.9 Troponin I 0.00 12/31/18 12/31/18 12/31/18 16:14 16:14 20:35 WBC RBC Hgb Hct MCV MCH MCHC RDW Plt Count MPV Neut % (Auto) Lymph % (Auto) [place] % (Auto) Eos % (Auto) Baso % (Auto) Absolute Neuts (auto) Absolute Lymphs (auto) Absolute Monos (auto) Absolute Eos (auto) Absolute Basos (auto) Absolute Nucleated RBC Nucleated RBC % INR (Anticoag Therapy) APTT Sodium Potassium Chloride Carbon Dioxide Anion Gap BUN Creatinine Est GFR ( Amer) Est GFR (Non-Af Amer) BUN/Creatinine Ratio Glucose POC Glucose (mg/dL) Hemoglobin A1c 7.8 H Lactic Acid 3.4 H* 2.1 H* Calcium Magnesium Troponin I 12/31/18 01/01/19 01/01/19 20:35 05:05 05:05 WBC 2.5 L RBC 3.16 L Hgb 9.7 L Hct 30 L MCV 93 MCH 31 MCHC 33 RDW 21 H Plt Count 333 MPV 8.0 Neut % (Auto) 72.7 Lymph % (Auto) 23.4 [place] % (Auto) 1.9 Eos % (Auto) 1.1 Baso % (Auto) 0.9 Absolute Neuts (auto) 1.8 Absolute Lymphs (auto) 0.6 L Absolute Monos (auto) 0.0 Absolute Eos (auto) 0.0 Absolute Basos (auto) 0.0 Absolute Nucleated RBC 0.0 Nucleated RBC % 0.1 INR (Anticoag Therapy) APTT Sodium 138 Potassium 4.7 Chloride 102 Carbon Dioxide 32 Anion Gap 4 BUN 7 Creatinine 0.55 Est GFR ( Amer) 147.4 Est GFR (Non-Af Amer) 121.8 BUN/Creatinine Ratio 12.7 Glucose 289 H POC Glucose (mg/dL) Hemoglobin A1c Lactic Acid Calcium 8.5 L Magnesium Troponin I 0.01 01/01/19 07:50 WBC RBC Hgb Hct MCV MCH MCHC RDW Plt Count MPV Neut % (Auto) Lymph % (Auto) [place] % (Auto) Eos % (Auto) Baso % (Auto) Absolute Neuts (auto) Absolute Lymphs (auto) Absolute Monos (auto) Absolute Eos (auto) Absolute Basos (auto) Absolute Nucleated RBC Nucleated RBC % INR (Anticoag Therapy) APTT Sodium Potassium Chloride Carbon Dioxide Anion Gap BUN Creatinine Est GFR ( Amer) Est GFR (Non-Af Amer) BUN/Creatinine Ratio Glucose POC Glucose (mg/dL) 251 H Hemoglobin A1c Lactic Acid Calcium Magnesium Troponin I Assessment: []43 yo female with metastatic HER2+ HR+ breast cancer currently on palliative Vinorelbine/Herceptin s/p C2, day 8 12/24/18. Push[place] presented yesterday with acute hypoxia and was admitted for COPD exacerbation. Plan: []1. COPD exacerbation: agree with current management - goal of short steroid taper and home on combination maintenance inhaler - assess need for home O2 2. Lactic acidosis: appears related to SIRS and dehydration in setting of acute respiratory distress - repeat level this AM - does not appear septic 3. Hypergylcemia with elevated HgA1C: aggravated by current steroids - steroids r/t TANKERMAN lesion for several months last fall, off currently - may have some insulin resistance in this setting as well as obesity, consider starting oral meds on d/c Dispo: monitor oxygenation, home this evening or tomorrow AM
[2019-01-01] MEDS: Insulin LISPRO* 1 UNITS UNIT SUBCUT SCH ×2 (09:50→13:39)
[2019-01-01] MEDS: DULoxetine DR CAP* 30 MG CAP.DR PO SCH (09:57)
--- NOTE | 2019-01-01 12:03 | DS ---
- Discharge Summary Admission Date: 12/31/18 Discharge Date: 01/01/19 Discharge Diagnosis: 1. COPD Exacerabation: likely 2/2 to viral URI, improved, home on zithromax and start long acting inhaler 2. Hyperglycemia: newly diagnosed type 2 DM, start oral anti-diabetic 3. Pain: chronic, stable on current meds 4. Breast cancer: plan to resume chemo next week if stable, reassess 01/06 Discharge Medications: Medication Instructions Recorded Confirmed Type Cholecalciferol (Vitamin D3) 4,000 units PO QPM 02/21/17 12/31/18 History [Vitamin D3] Brexpiprazole (NF) [Rexulti (NF)] 2 mg PO QPM 08/14/17 12/31/18 History Mirtazapine TAB* [Remeron TAB*] 30 mg PO QPM 08/14/17 12/31/[address] CAP* [Cymbalta CAP*] 30 mg PO BID 05/11/18 12/31/18 History ALPRAZolam TAB* [Xanax TAB*] 1 mg PO QID PRN 06/07/18 12/31/18 History Rivaroxaban TAB(*) [Xarelto 20 mg] 20 mg PO DAILY tab 06/11/18 12/31/18 Rx Ondansetron ODT TAB* [Zofran 4 MG 4 mg PO Q6H PRN #15 tab.odt 10/22/18 12/31/18 Rx Odt TAB*] Albuterol HFA INHALER* [Ventolin 1 - 2 puff INH Q6H PRN MDD 8 puffs 10/30/1807/09 History HFA Inhaler*] Carisoprodol [Soma] 250 mg PO Q6HR PRN MDD 1000 10/30/18 12/31/18 History Cetirizine* [ZyrTEC 10 MG TAB*] 10 mg PO DAILY 10/30/18 12/31/18 History Flurazepam CAP* [Dalmane CAP*] 30 mg PO BEDTIME 10/30/18 12/31/18 History Naproxen Sodium [Aleve] 220 mg PO Q6HR PRN 10/30/18 12/31/18 History Pantoprazole TAB * [Protonix TAB*] 40 mg PO DAILY 10/30/18 12/31/18 History Polyethylene Glycol 3350* 8.5 gm PO BID PRN 10/30/18 12/31/18 History [Miralax*] traZODone TAB* [Desyrel TAB*] 400 mg PO BEDTIME 10/30/18 12/31/18 History fentaNYL PATCHs 100 MCG/HR* 200 mcg TRANSDERM Q72H 12/31/18 12/31/18 History [Duragesic Patch 100 Mcg/Hr *] Azithromycin TAB* [Zithromax TAB 250 mg PO DAILY #3 tab 01/01/19 Rx (Z-JENNIFER) 250 mg #6 tabs] Budesonide/Formote 160/4.5(NF) 2 puff INH BID #1 mdi 01/01/19 Rx [Symbicort 160/4.5 (NF)] glyBURIDE TAB* [Diabeta TAB*] 2.5 mg PO DAILY #30 tab 01/01/19 Rx oxyCODONE TAB* [Roxycodone TAB 5 10 mg PO Q4HR PRN #0 01/01/19 12/31/18 Rx mg*] predniSONE TAB* [Deltasone 20 MG 20 mg PO DAILY #2 tab 01/01/19 Rx TAB*] Disposition: Home Condition: Stable Activity: enc. walking as tolerated Diet: consistent carb, high protein Hospital Course: Please see admission note for full H&P, however briefly Ms. Guevara is well known to our service due to her unfortunate diagnosis of metastatic breast cancer with POTTERY KILN BUILDER disease diagnosed in Apr 2018 and most recently with concern for mild progression and poor tolerance of taxane therapy. She is s/p 2 cycles of Vinorelbine with cont.'d Trastuzumab therapy. Ms. Guevara presented to the office for routine f/u on 12/30 with normal O2 SATs and no specific respiratory complaints. She has a long history of asthma and remains a current smoker despite attempts as supporting cessation. Our office was contacted on 12/31 by her visiting nurse with O2 SAT on RA in the 80s. She was brought to the office for assessment where this was confirmed. A STAT CTA of the chest was ordered to evaluate for a PE (she is anticoagulated due to prior ovarian thrombosis), however her insurance would not provide approval and she was therefore sent to the ER for urgent evaluation of her acute onset hypoxia. A CTA of the chest obtained in the ER was negative for PE, however on exam she had developed wheezes and was subsequently admitted for observation due to concern for a COPD exacerbation. Her EKG was stable with sinus tach and she had a negative troponin. Ms. Calderon's had an elevated lactic acid, however this was felt related to dehydration and repeats have since improved to normal. Overnight Ms. Guevara received IV Solumedrol, Azithromycin, and NS. She received PRN PO nebs. Today she states feeling much better. Her O2SATs are stable with supplemental O2 via NC @ 2L/min, however her O2 SATs drop into the 80s on RA and therefore she will require continuous O2. Ms. Guevara will be discharged home in stable condition. She will complete a full 5 day course of Azithromycin and start PO anti-diabetics due to her HmgA1C 7.8 on admission. This is likely related to long standing obesity and the use of steroids in the recent past due to her POTTERY KILN BUILDER disease. She will start a long acting inhaler (Symbicort) and cont. PRN albuterol. She is already set up with [facility] for O2. Printed information and review of plan of care was provided. Ms. Guevara will f/u with our office on 01/06 with EBONY Acuña to assess her respiratory status and readiness to proceed with Cycle 3. We will plan restaging scans after cycle 3 of this treatment.
[2019-01-01 13:07] VITALS: BP 113/41
[2019-01-01] MEDS ORDERED: Azithromycin IV(*) 250 MG in NS 0.9% 250 ML* 250 ML IVPB SCH (21:00)
[2019-01-02] MEDS ORDERED: fentaNYL PATCHs 100 MCG/HR TRANSDERM SCH (21:00)
== END 2019-01-01 16:42 | disposition home or self-care (01) ==
LOC: ED 15:42 → MEDTELE 20:01
PROVIDERS: ADMIT Pediatrics; ATTEND Internal Medicine Hematology & Oncology
DX: J44.1 Chronic obstructive pulmonary disease with (acute) exacerbation (principal); E11.65 Type 2 diabetes mellitus with hyperglycemia; C50.919 Malignant neoplasm of unspecified site of unspecified female breast; Z92.21 Personal history of antineoplastic chemotherapy; R00.0 Tachycardia, unspecified; M54.9 Dorsalgia, unspecified; F32.9 Major depressive disorder, single episode, unspecified; G43.909 Migraine, unspecified, not intractable, without status migrainosus; T50.905A Adverse effect of unspecified drugs, medicaments and biological substances, initial encounter; Z79.01 Long term (current) use of anticoagulants; F17.210 Nicotine dependence, cigarettes, uncomplicated; Z86.718 Personal history of other venous thrombosis and embolism
CPT/HCPCS: 36415; 71275; 80048; 83036; 83605; 83735; 84484; 85025; 85610; 85730; 87040; 93005; 94640; 96361; 96374; 99217; 99239; 99284; A9270-GY; G0378; J0456; J2930; J7512; Q9967

== ENCOUNTER 2019-04-14 11:49 | Observation (INO) | payer OTHER ==
[2019-04-14] MEDS ORDERED: NS 0.9% 1000 ML** 1,000 ML IV.FLUID IV ONE (12:11)
[2019-04-14] MEDS ORDERED: Ondansetron INJ* 2 MG/ML VIAL IV ONE (12:18)
[2019-04-14] MEDS ORDERED: Ketorolac INJ* 30 MG/ML 1 ML VIAL IV ONE (12:40)
[2019-04-14 12:46] LABS: Hematocrit 29 % (35-47); Hemoglobin 9.4 g/dL (12.0-16.0); Mean Corpuscular HGB Conc 33 g/dL (31-36); Mean Corpuscular Hemoglobin 29 pg (27-31); Mean Corpuscular Volume 88 fL (80-97); Mean Platelet Volume 8.2 fL (7.4-10.4); Platelet Count 343 10^3/uL (150-450); Red Blood Count 3.27 10^6 /uL (3.70-4.87); Red Cell Distribution Width 27 % (10-15); White Blood Count 5.4 10^3/uL (3.5-10.8)
[2019-04-14 12:56] LABS: INR 1.18 (0.82-1.09)
[2019-04-14 13:02] LABS: Albumin 3.5 g/dL (3.2-5.2); Albumin/Globulin Ratio 1.3 (1-3); BUN/Creatinine Ratio 11.3 (8-20); C Reactive Protein 53.13 mg/L (<8.01); Calcium 8.3 mg/dL (8.6-10.3); EGFR African American 109.8 (>60); EGFR Non-African American 90.7 (>60); Globulin 2.6 g/dL (2-4); Potassium 3.6 mmol/L (3.5-5.0); Total Bilirubin 0.4 mg/dL (0.2-1.0); Total Protein 6.1 g/dL (6.4-8.9); Troponin I 0.01 ng/mL (<0.04)
[2019-04-14 13:08] LABS: ABS Eosinophils 0.2 10^3/ul (0-0.6); ABS Lymphocytes 1.8 10^3/ul (1.0-4.8); ABS Monocytes 0.3 10^3/ul (0-0.8); ABS Neutrophils 3.1 10^3/ul (1.5-7.7); ABS Nucleated RBC 0.2 10^3/ul; Eosinophil % 3.7 %; Lymphocyte % 32.7 %; Nucleated Red Blood Cells % 2.9
[2019-04-14 13:09] LABS: Polychromasia 2+
--- OUTSIDE RECORDS SUMMARY | 2019-04-14 13:47 | XMS REPORT | Continuity of Care Document ---
:1975 External Reference #:[id number] Author Name Blanka Valdivia Care Team Providers Name Role Phone Julian Livingston DO - Interventional Care Team Information Junior Designer Pain Medicine Terrance Rose MD - Orthopaedic Care Team Information Junior Designer [phone] Surgery Marleni Richardson MD - Internal Care Team Information Junior Designer Medicine Problems Active Problems Provider Date Panic disorder [...] Palpitations Priscilla Fay M.D. Onset: 05/07/2012 Dyspnea Fede Keller.D. Onset: 05/07/2012 Asthma Maine Herman MD Onset: [...] of shoulder Vic Collado MD Onset: 10/14/2018 Social History Type Date Description Comments Sex Unknown Tobacco Use Start: Unknown Patient is a current Began smoking at cigarette smoker, age 22, smokes 4-5 smokes every day per day and has quit off and on Smoking Status Reviewed: 01/19/19 Patient is a current Began smoking at [...] MD 1.25mcg/Act Aerosol day ( Not using) Cyclobenzaprine HCL Patricia Cordero, 5mg SIGNAL ENGINEER Tablets Glyburide Patricia Cordero, 2.5mg Tablets SIGNAL ENGINEER Carisoprodol 1 tablet po qid Unknown 250mg Fluconazole one by mouth Unknown 200mg Tablets daily x14 days ( started taking 06/23/18) SM Naproxen Sodium 1 tablet po Patricia Cordero, 220mg twice daily SIGNAL ENGINEER Tablets Fentanyl apply 1 patch Unknown 100mcg/HR Patches every 3 days 72HR Cymbalta 1 by mouth bid Unknown 30mg Caps DR Kiran Symbicort 1 puff twice a 12gm Maine Virgil, 160-4.5mcg/Act day ( Not using MD Aerosol ) Oxygen please use o2 at Unknown Misc 2l/min at night ( not using ) Trazodone HCL take 4 tablet by Unknown 100mg Tablets mouth at bedtime Lupron Depot-Ped q 3 months Unknown (3-Month) injection 11.25mg (Ped) Kit Xarelto 1 by mouth every Unknown 20mg Tablets day Rexulti once at bedtime Unknown 2mg Tablets Vitamin D High Potency 4 by mouth every Unknown day ( unsure of 1000Unit Capsules dose will call can confirm) Imodium A-D as needed Unknown 2mg Tablets Oxycodone HCL 1 by mouth every Unknown 5mg Tablets 6 hours as needed pain Mirtazapine 1 by mouth every Unknown 30mg Tablets day Dispers Alprazolam qid prn Unknown 1mg Tablets Medications Administered in Office Medication SIG Qnty Indications Ordering Provider Date Depomedrol 40MG Yazmin Capps M.D. 01/19/2019 Injection Immunizations Description No Information Available Vital Signs Date Vital Result Comment 01/19/2019 1:42pm Height 65 inches 5'5" Weight 270.00 lb BP Systolic 126 mmHg BP Diastolic 74 mmHg Respiratory Rate 16 /min Pain Level 5 BMI (Body Mass Index) 44.9 kg/m2 12/08/2018 3:03pm Height 65 inches 5'5" Weight 276.75 lb Heart Rate 120 /min BP Systolic 144 mmHg BP Diastolic 80 mmHg Respiratory Rate 18 /min Pain Level 6 BMI (Body Mass Index) 46.0 kg/m2 Results Description No Information Available Procedures Date Code Description Status 01/19/2019 56825 Inject/Drain Joint/Bursa Intermediate W/O US Completed 10/30/2018 18053 EKG, Interpretation Only Completed 09/16/2018 35833 Avulsion Nail Plate Simple Single Completed 07/18/2016 09721655 Mammogram Completed 07/24/2011 57193172 Colonoscopy Completed Medical Devices Description No Information Available Encounters Type Date Location Provider Dx Diagnosis Office Visit 01/19/2019 Orthopedic [facility] Yazmin Capps G56.22 Lesion of ulnar 1:30p Of [facility] [place] nerve, left upper limb Office Visit 12/31/2018 [facility] Ashley Dick, DO R06.02 Shortness of 9:04a Assoc, breath Hospitalists R09.02 Hypoxemia R73.9 Hyperglycemia, unspecified Office Visit 12/08/2018 2:30p Orthopedic Yazmin Capps G56.22 Lesion of Services Of [place] [place] ulnar nerve, left upper limb G54.0 Brachial plexus disorders Office Visit 12/04/2018 2:00p Orthopedic Vic Collado M75.42 Impingement Services Of syndrome of left [facility].A. shoulder G56.22 Lesion of ulnar nerve, left upper limb Office Visit 11/28/2018 10:10a [facility] Dermat[facility] Mp Lewis MD R68.3 Clubbing of fingers L60.1 Onycholysis B35.1 Tinea unguium Office Visit 10/14/2018 3:15p Orthopedic Vic Collado G56.22 Lesion of Services Of [facility] [place] ulnar nerve, left upper limb M75.42 Impingement syndrome of left shoulder Assessments Date Code Description Provider 01/19/2019 G56.22 Lesion of ulnar nerve, left upper limb Yazmin Capps M.D. 12/31/2018 R06.02 Shortness of breath Ashley Dick, DO 12/31/2018 R09.02 Hypoxemia Ashley Dick, DO 12/31/2018 R73.9 Hyperglycemia, unspecified Ashley Dick, DO 12/08/2018 G56.22 Lesion of ulnar nerve, left upper limb Yazmin Capps M.D. 12/08/2018 G54.0 Brachial plexus disorders Yazmin Capps M.D. 12/04/2018 M75.42 Impingement syndrome of left shoulder Vic Collado MD 12/04/2018 G56.22 Lesion of ulnar nerve, left upper limb Vic Collado MD 11/28/2018 R68.3 Clubbing of fingers Mp Lewis MD 11/28/2018 L60.1 Onycholysis Mp Lewis MD 11/28/2018 B35.1 Tinea unguium Mp Lewis MD 10/30/2018 R94.31 Abnormal electrocardiogram [ECG] [EKG] Christian Ramos M.D., [facility], [facility] 10/14/2018 G56.22 Lesion of ulnar nerve, left upper limb Vic Collado MD 10/14/2018 M75.42 Impingement syndrome of left shoulder Vic Collado MD 09/16/2018 L60.0 Ingrowing nail Darren Moraes M.D. Plan of Treatment 01/19/2019 - Yazmin Capps M.D.G56.22 Lesion of ulnar nerve, left upper limbFollow up:Follow up: As needed Functional Status Description No Information Available Mental Status Description No Information Available Referrals Description No Information Available
[2019-04-14 14:21] LABS: Urine Appearance Clear; Urine Bilirubin Negative (Negative); Urine Blood Negative (Negative); Urine Color Straw; Urine Glucose Negative (Negative); Urine Ketones Negative (Negative); Urine Nitrite Negative (Negative); Urine Protein Negative (Negative); Urine Specific Gravity 1.002 (1.010-1.030); Urine Urobilinogen Negative (Negative)
[2019-04-14] MEDS ORDERED: Iodixanol* (CONTRAST) 320 MG/ML 100 ML SDV IV ONE (14:43)
[2019-04-14] MEDS ORDERED: HYDROmorphone INJ1* 1 MG/ML SYRINGE IV SLOW PU ONE (15:43)
[2019-04-14] MEDS ORDERED: HYDROmorphone INJ* 0.5 MG/0.5 ML SYRINGE IV SLOW PU PRN (15:57)
[2019-04-14] MEDS ORDERED: ALPRAZolam TAB* 0.5 MG PO PRN (15:58)
[2019-04-14] MEDS ORDERED: Loperamide CAP* 2 MG PO PRN (15:58)
[2019-04-14] MEDS ORDERED: Cyclobenzaprine TAB* 10 MG PO PRN (15:58)
[2019-04-14] MEDS ORDERED: NS 0.9% 1000 ML** 1,000 ML IV SCH (17:00)
[2019-04-14] MEDS: Mirtazapine TAB* 15 MG PO SCH (18:03)
[2019-04-14] MEDS ORDERED: HYDROmorphone INJ1* 1 MG/ML SYRINGE IV SLOW PU PRN (18:08)
[2019-04-14] MEDS: BREXPIPRAZOLE 2 MG PO SCH (18:26)
[2019-04-14] MEDS ORDERED: fentaNYL PATCHs 100 MCG/HR TRANSDERM SCH (18:30)
[2019-04-14] MEDS: fentaNYL Patch Check Q Shift 1 NOTE FOLLOW UP SCH (19:22)
[2019-04-14] MEDS ORDERED: predniSONE TAB* 50 MG PO ONE (20:00)
[2019-04-14] MEDS: DULoxetine DR CAP* 30 MG CAP.DR PO SCH (21:32)
[2019-04-14] MEDS: Docusate CAP* 100 MG PO SCH (21:32)
[2019-04-14] MEDS ORDERED: traZODone TAB* 100 MG PO SCH (22:00)
[2019-04-14] MEDS: HYDROmorphone INJ1* 1 MG/ML SYRINGE IV SLOW PU PRN (22:35)
[2019-04-15] MEDS ORDERED: predniSONE TAB* 50 MG PO ONE ×2 (01:00→08:00)
[2019-04-15] MEDS: HYDROmorphone INJ1* 1 MG/ML SYRINGE IV SLOW PU PRN ×5 (02:17→16:11)
[2019-04-15] MEDS: Mometasone/Formoter 200/5 MDI INH SCH ×2 (02:26→07:35)
--- NOTE | 2019-04-15 05:29 | ED ---
Headache - HPI Summary HPI Summary: This patient is a 43-year-old female with metastatic breast cancer, her 2 positive presenting to the ED with right-sided frontal headache radiating to the right cheek and into the right neck. History of migraines, but states this feels different. She did have similar symptoms 2 months ago and was admitted for this. She denies any CP or SOB. She denies any worsening weakness. She states the headache has been present persistently 4 days and this morning had developed double vision into the right eye. She does have known metastases to the brain. She is currently on Herceptin and navilbene. She is on a 3:1 weekly chemo regimine and today is her day off. She is followed by Dr. Hill. - History Of Current Complaint Chief Complaint: EDHeadache Stated Complaint: HEADACHE/NECK PAIN ON RT SIDE PER PT Time Seen by Provider: 04/14/19 11:59 Hx Obtained From: Patient Hx Last Menstrual Period: 05/25/16 Onset/Duration: Sudden Onset Initially Headache Was: "Worst Headache Ever", Initial Pain Scale(0-10)= - 10 Currently Pain Is: Current Pain Scale(0-10)= - 10 Timing: Constant Character: Sharp, Throbbing Aggravating Factor: Nothing Allevating Factors: Nothing Associated Signs And Symptoms: Negative - Risk Factors Meningitis Risk Factors: Immune Deficiency Temporal Arteritis Risk Factors: Female, - Allergies/Home Medications Allergies/Adverse Reactions: Allergies Allergy/AdvReac Type Severity Reaction Status Date / Time Gadolinium-Containing Allergy Severe Anaphylatic Verified 04/07/19 12:09 Contrast Medi Shock venlafaxine Allergy Severe Hives/Diff. Verified 04/01/19 15:42 Breathing/I tching Adhesive Tape Allergy skin break Verified 04/01/19 15:42 [Tegaderm Dressing] down prochlorperazine Allergy See Comment Verified 04/01/19 15:42 promethazine Allergy See Comment Verified 04/01/19 15:42 ANTI NAUSEA Allergy BODY Uncoded 04/01/19 15:42 TWISTS UP VERY HARD Home Medications: Home Medications Cyclobenzaprine (NF) [Cyclobenzaprine 5 MG (NF)] 5 mg PO TID PRN 04/14/19 [ History Confirmed 04/14/19] Docusate CAP* [Colace Cap*] 200 mg PO .AM & PM 04/14/19 [History Confirmed 04/14] Leuprolide 11.25 MG KIT [Lupron Depot*] 11.25 mg IM .EVERY 3 MONTHS 04/14/19 [ History Confirmed 04/14/19] Loperamide CAP* [Imodium CAP*] 2 mg PO Q4H PRN 04/14/19 [History Confirmed 04/14] Spiriva HANDIHALER DEVICE (NF) [Tiotropium Inhaler DEVICE (NF)] 2 inh PO DAILY 04/14/19 [History Confirmed 04/14/19] oxyCODONE TAB* [Roxycodone TAB 5 mg*] 10 mg PO Q6HR PRN 04/14/19 [History Confirmed 04/14/19] PMH/Surg Hx/FS Hx/Imm Hx Previously Healthy: Yes Endocrine/Hematology History: Reports: Hx Diabetes Denies: Hx Anticoagulant Therapy, Hx Bone Marrow Disease, Hx Sickle Cell Disease, Hx Thyroid Disease, Hx Anemia, Other Endocrine/Hematological Disorders Cardiovascular History: Reports: Hx Congestive Heart Failure, Hx Deep Vein Thrombosis - Recent ovarian vein thrombosis, Hx Hypercholesterolemia, Other Cardiovascular Problems/Disorders - PT STATES DIFFICULTY WITH INJECTION FRACTION -HEART DAMAGE FROM CHEMO Denies: Hx Angina, Hx Cardiomegaly, Hx Coronary Artery Disease, Hx Hypertension, Hx Myocardial Infarction, Hx Pacemaker/ICD, Hx Peripheral Vascular Disease, Hx Rheumatic Fever, Hx Valvular Heart Disease Respiratory History: Reports: Hx Chronic Obstructive Pulmonary Disease (COPD) - STATES EARLY ONSET, Other Respiratory Problems/Disorders - SLEEPS WITH OXYGEN AT NIGHT 2L Denies: Hx Asthma, Hx Lung Cancer, Hx Pulmonary Edema, Hx Pulmonary Embolism , Hx Sleep Apnea GI History: Reports: Other GI Disorders - history of ulcerative colitis Denies: Hx Cirrhosis, Hx Crohn's Disease, Hx Gall Bladder Disease, Hx Gastroesophageal Reflux Disease, Hx Gastrointestinal Bleed, Hx Hiatal Hernia, Hx Irritable Bowel, Hx Jaundice, Hx Ulcer, Hx Urosepsis History: Denies: Hx Dialysis, Hx Kidney Infection, Hx Kidney Stones, Hx Renal Disease , Other Problems/Disorders Musculoskeletal History: Reports: Hx Arthritis, Hx Back Problems Denies: Hx Bursitis, Hx Tendonitis, Other Musculoskeletal History Sensory History: Denies: Hx Cataracts, Hx Contacts or Glasses, Hx Glaucoma, Hx Hearing Aid Opthamlomology History: Denies: Hx Cataracts, Hx Contacts or Glasses, Hx Glaucoma Neurological History: Reports: Hx Migraine, Hx Spinal Cord Injury - herniated disc Denies: Hx Dementia, Hx Headaches, Hx Nerve Disease, Hx Seizures, Hx Transient Ischemic Attacks (TIA), Other Neuro Impairments/Disorders Psychiatric History: Reports: Hx Anxiety, Hx Depression, Hx Post Traumatic Stress Disorder, Hx Suicide Attempt - states she has made three attempts; h/o overdose x 2 Denies: Hx Eating Disorder, Hx Panic Disorder, Hx Substance Abuse - Cancer History Cancer Type, Location and Year: 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 X2. appendix. POWER PORT 2017. cholecystectomy. LEFT FOOT-SURGICALLY REMOVED TOOTHPICK 2000. gamma knife surgery Hx Anesthesia Reactions: No - Immunization History Date of Tetanus Vaccine: UTD Date of Influenza Vaccine: NO Hx Pertussis Vaccination: No Immunizations Up to Date: Yes Infectious Disease History: No Infectious Disease History: Denies: Hx Hepatitis, Hx Human Immunodeficiency Virus (HIV), Hx of Known/ Suspected MRSA, Traveled Outside the [place] in Last 30 Days - Family History Known Family History: Negative: Cardiac Disease, Hypertension - Social History Occupation: Unemployed Lives: With Family Alcohol Use: None Hx Substance Use: Yes Substance Use Type: Reports: None Hx Tobacco Use: Yes Smoking Status (MU): Light Every Day Tobacco Smoker Type: Cigarettes Amount Used/How Often: 1/4 PPD, down from PPD Have You Smoked in the Last Year: Yes Review of Systems Negative: Fever, Chills, Fatigue, Skin Diaphoresis Positive: Other - right sided double vision Negative: Palpitations, Chest Pain Negative: Shortness Of Breath, Cough Genitourinary: Negative Positive: no symptoms reported, see HPI Negative: Arthralgia, Myalgia Skin: Negative Positive: Headache All Other Systems Reviewed And Are Negative: Yes Physical Exam Triage Information Reviewed: Yes Vital Signs On Initial Exam: Initial Vitals Temp Pulse Resp BP Pulse Ox 96.8 F 115 17 129/87 89 04/14/19 11:51 04/14/19 11:51 04/14/19 11:51 04/14/19 11:51 04/14/19 11:51 Vital Signs Reviewed: Yes Appearance: Positive: Pain Distress, Obese Skin: Positive: Warm, Skin Color Reflects Adequate Perfusion Head/Face: Positive: Normal Head/Face Inspection. Negative: Scalp, Cephalohematoma Eyes: Positive: EOMI, BRIAN, Conjunctiva Clear Neck: Positive: Supple, Nontender, No Lymphadenopathy Respiratory/Lung Sounds: Positive: Clear to Auscultation, Breath Sounds Present Cardiovascular: Positive: RRR, Pulses are Symmetrical in both Upper and Lower Extremities Abdomen Description: Positive: Nontender, No Organomegaly. Negative: CVA Tenderness (R), CVA Tenderness (L) Musculoskeletal: Positive: Normal, Strength/ROM Intact Neurological: Positive: Sensory/Motor Intact, Alert, Oriented to Person Place, Time, Speech Normal Psychiatric: Positive: Affect/Mood Appropriate AVPU Assessment: Alert Diagnostics - Vital Signs Vital Signs Temp Pulse Resp BP Pulse Ox 04/14/19 15:00 96 12 95 04/14/19 14:00 98 17 93 04/14/19 13:10 102 15 92 04/14/19 12:34 94 04/14/19 12:05 109 106/82 90 04/14/19 12:02 119 83 04/14/19 11:51 96.8 F 115 17 129/87 89 - Laboratory Lab Results: Lab Results 04/14/19 04/14/19 04/14/19 Range/Units 12:28 12:28 12:29 WBC 5.4 (3.5-10.8) 10^3/uL RBC 3.27 L (3.70-4.87) 10^6 /uL Hgb 9.4 L (12.0-16.0) g/dL Hct 29 L (35-47) % MCV 88 (80-97) fL MCH 29 (27-31) pg MCHC 33 (31-36) g/dL RDW 27 H (10-15) % Plt Count 343 (150-450) 10^3/uL MPV 8.2 (7.4-10.4) fL Neut % (Auto) 57.1 % Lymph % (Auto) 32.7 % [place] % (Auto) 5.7 % Eos % (Auto) 3.7 % Baso % (Auto) 0.8 % Absolute Neuts (auto) 3.1 (1.5-7.7) 10^3/ul Absolute Lymphs (auto) 1.8 (1.0-4.8) 10^3/ul Absolute Monos (auto) 0.3 (0-0.8) 10^3/ul Absolute Eos (auto) 0.2 (0-0.6) 10^3/ul Absolute Basos (auto) 0.0 (0-0.2) 10^3/ul Absolute Nucleated RBC 0.2 10^3/ul Nucleated RBC % 2.9 Polychromasia 2+ Anisocytosis 3+ INR (Anticoag Therapy) 1.18 H (0.82-1.09) Sodium (135-145) mmol/L Potassium (3.5-5.0) mmol/L Chloride (101-111) mmol/L Carbon Dioxide (22-32) mmol/L Anion Gap (2-11) mmol/L BUN (6-24) mg/dL Creatinine (0.51-0.95) mg/dL Est GFR ( Amer) (>60) Est GFR (Non-Af Amer) (>60) BUN/Creatinine Ratio (8-20) Glucose (70-100) mg/dL Lactic Acid 2.2 H* (0.5-2.0) mmol/L Calcium (8.6-10.3) mg/dL Total Bilirubin (0.2-1.0) mg/dL AST (13-39) U/L ALT (7-52) U/L Alkaline Phosphatase (34-104) U/L Troponin I (<0.04) ng/mL C-Reactive Protein (<8.01) mg/L Total Protein (6.4-8.9) g/dL Albumin (3.2-5.2) g/dL Globulin (2-4) g/dL Albumin/Globulin Ratio (1-3) Urine Color Urine Appearance Urine pH (5-9) Ur Specific [place] (1.010-1.030) Urine Protein (Negative) Urine Ketones (Negative) Urine Blood (Negative) Urine Nitrate (Negative) Urine Bilirubin (Negative) Urine Urobilinogen (Negative) Ur Leukocyte Esterase (Negative) Urine Glucose (Negative) 04/14/19 04/14/19 04/14/19 Range/Units 12:29 13:50 15:22 WBC (3.5-10.8) 10^3/uL RBC (3.70-4.87) 10^6 /uL Hgb (12.0-16.0) g/dL Hct (35-47) % MCV (80-97) fL MCH (27-31) pg MCHC (31-36) g/dL RDW (10-15) % Plt Count (150-450) 10^3/uL MPV (7.4-10.4) fL Neut % (Auto) % Lymph % (Auto) % [place] % (Auto) % Eos % (Auto) % Baso % (Auto) % Absolute Neuts (auto) (1.5-7.7) 10^3/ul Absolute Lymphs (auto) (1.0-4.8) 10^3/ul Absolute Monos (auto) (0-0.8) 10^3/ul Absolute Eos (auto) (0-0.6) 10^3/ul Absolute Basos (auto) (0-0.2) 10^3/ul Absolute Nucleated RBC 10^3/ul Nucleated RBC % Polychromasia Anisocytosis INR (Anticoag Therapy) (0.82-1.09) Sodium 137 (135-145) mmol/L Potassium 3.6 (3.5-5.0) mmol/L Chloride 102 (101-111) mmol/L Carbon Dioxide 29 (22-32) mmol/L Anion Gap 6 (2-11) mmol/L BUN 8 (6-24) mg/dL Creatinine 0.71 (0.51-0.95) mg/dL Est GFR ( Amer) 109.8 (>60) Est GFR (Non-Af Amer) 90.7 (>60) BUN/Creatinine Ratio 11.3 (8-20) Glucose 154 H (70-100) mg/dL Lactic Acid 1.0 (0.5-2.0) mmol/L Calcium 8.3 L (8.6-10.3) mg/dL Total Bilirubin 0.40 (0.2-1.0) mg/dL AST 28 (13-39) U/L ALT 27 (7-52) U/L Alkaline Phosphatase 136 H (34-104) U/L Troponin I 0.01 (<0.04) ng/mL C-Reactive Protein 53.13 H (<8.01) mg/L Total Protein 6.1 L (6.4-8.9) g/dL Albumin 3.5 (3.2-5.2) g/dL Globulin 2.6 (2-4) g/dL Albumin/Globulin Ratio 1.3 (1-3) Urine Color Straw Urine Appearance Clear Urine pH 6.0 (5-9) Ur Specific [place] 1.002 L (1.010-1.030) Urine Protein Negative (Negative) Urine Ketones Negative (Negative) Urine Blood Negative (Negative) Urine Nitrate Negative (Negative) Urine Bilirubin Negative (Negative) Urine Urobilinogen Negative (Negative) Ur Leukocyte Esterase Negative (Negative) Urine Glucose Negative (Negative) Result Diagrams: 04/14/19 12:29 04/14/19 12:29 Lab Statement: Any lab studies that have been ordered have been reviewed, and results considered in the medical decision making process. Headache Course/Dx - Course Course Of Treatment: On arrival into the ED, the patient is noted to be hypoxic at 84% on room air. She was immediately placed on 3L NC currently satting at 95 %. She does not wear oxygen at home at baseline. She does continue to smoke. Today's her day off for her 3 weeks, 1 off chemotherapy regimen. She is endorsing severe, worst of life, right sided headache with associated double vision into the right eye. A CT brain was obtained which shows no acute intracranial abnormalities. Labs are obtained and are fairly unremarkable. Discussed case with Dr. Gill oncology who agrees to admit for further evaluation. A CTA was ordered and is pending during admission. Discussed with Patricia Cordero in ED who will OBV pt. - Diagnoses Differential Diagnosis/HQI/PQRI: Subarachnoid Hemorrhage, Tension Headache, Other - chemo side effects Provider Diagnoses: Migraine, Hypoxia Discharge ED - Sign-Out/Discharge Documenting (check all that apply): Patient Departure All imaging exams completed and their final reports reviewed: Yes Patient Received Moderate/Deep Sedation with Procedure: No - Discharge Plan Condition: Stable Disposition: ADMITTED TO [facility] - Billing Disposition and Condition Condition: STABLE Disposition: Admitted to [facility] - Attestation Statements Provider Attestation: I was available for consult. This patient was seen by the MARTHA. The patient was not presented to, seen by, or examined by me. Darrius Garcia MD
[2019-04-15] MEDS: fentaNYL Patch Check Q Shift 1 NOTE FOLLOW UP SCH (06:30)
[2019-04-15] MEDS ORDERED: diPHENhydraMINE PO* 50 MG PO ONE (08:00)
[2019-04-15] MEDS: Docusate CAP* 100 MG PO SCH (08:45)
[2019-04-15] MEDS: DULoxetine DR CAP* 30 MG CAP.DR PO SCH (08:45)
[2019-04-15] MEDS ORDERED: Influenza VAC *QUAD* 2019-20* 0.5 ML SYRINGE IM ONE (09:00)
[2019-04-15] MEDS ORDERED: glyBURIDE TAB* 2.5 MG PO SCH (09:00)
[2019-04-15] MEDS ORDERED: SPIRIVA Respimat* (tiotropium) 2.5 mcg/inh Inhaler INH SCH (09:00)
[2019-04-15] MEDS ORDERED: Rivaroxaban TAB(*) 20 MG TAB PO SCH (09:00)
[2019-04-15] MEDS ORDERED: Pneumococcal *Vac Polyvalent 0.5 ML VIAL IM ONE (09:00)
[2019-04-15] MEDS ORDERED: Gadoteridol* (CONTRAST) 279.3 MG/ML 10 ML IV ONE (11:18)
[2019-04-15 15:30] VITALS: BP 107/44
[2019-04-15] MEDS: BREXPIPRAZOLE 2 MG PO SCH (16:38)
[2019-04-15] MEDS: Mirtazapine TAB* 15 MG PO SCH (16:47)
--- NOTE | 2019-04-15 17:17 | DS ---
- Discharge Summary Admission Date: OBV 04/14/19 Discharge Date: 04/15/19 Discharge Diagnosis: 1. Headache: slight improvement during admission, resume home meds 2. Metastatic Breast Cancer: follow-up in clinic next week 3. Chronic pain: resume home meds 4. Depression: resume home meds 5. NIDDM: consistent carb diet 6. COPD: cont. inhalers and home O2 Discharge Medications: Medication Instructions Recorded Confirmed Type Cholecalciferol (Vitamin D3) 4,000 units PO QPM 02/21/17 04/14/19 History [Vitamin D3] Brexpiprazole (NF) [Rexulti (NF)] 2 mg PO QPM 08/14/17 04/14/19 History Mirtazapine TAB* [Remeron TAB*] 30 mg PO QPM 08/14/17 04/14/[address] CAP* [Cymbalta CAP*] 30 mg PO BID 05/11/18 04/14/19 History ALPRAZolam TAB* [Xanax TAB*] 1 mg PO QID PRN 06/07/18 04/14/19 History Rivaroxaban TAB(*) [Xarelto 20 mg] 20 mg PO DAILY tab 06/11/18 04/14/19 Rx Carisoprodol [Soma] 250 mg PO QID MDD 1000 10/30/18 04/14/19 History Naproxen Sodium [Aleve] 220 mg PO BID 10/30/18 04/14/19 History fentaNYL PATCHs 100 MCG/HR* 200 mcg TRANSDERM Q72H 12/31/18 04/14/19 History [Duragesic Patch 100 Mcg/Hr *] Budesonide/Formote 160/4.5(NF) 2 puff INH BID #1 mdi 01/01/19 04/14/19 Rx [Symbicort 160/4.5 (NF)] Cyclobenzaprine (NF) 5 mg PO TID PRN 04/14/19 04/14/19 History [Cyclobenzaprine 5 MG (NF)] Docusate CAP* [Colace Cap*] 200 mg PO .AM & PM 04/14/19 04/14/19 History Leuprolide 11.25 MG KIT [Lupron 11.25 mg IM .EVERY 3 MONTHS 04/14/19 04/14/19 History Depot*] Loperamide CAP* [Imodium CAP*] 2 mg PO Q4H PRN 04/14/19 04/14/19 History Spiriva HANDIHALER DEVICE (NF) 2 inh PO DAILY 04/14/19 04/14/19 History [Tiotropium Inhaler DEVICE (NF)] oxyCODONE TAB* [Roxycodone TAB 5 10 mg PO Q6HR PRN 04/14/19 04/14/19 History mg*] traZODone TAB* [Desyrel TAB*] 200 mg PO BEDTIME #0 04/15/19 04/14/19 Rx Disposition: Home Condition: Stable Activity: Low impact activity encouraged Diet: Consistent Carb Hospital Course: Please see admission note for full H&P, however, briefly, Ms. Guevara is well known to our service due to her unfortunate diagnosis of metastatic breast cancer. 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 In the ER a CT of the brain without contrast was negative. Due to hypoxia on prsentation a CTA of the chest was obtained, this was negative for PNA and PE. Lactic acid was elevated in the ER and resolved with fluids. There was no indication on exam for a potential infection, however as her headache was severe and uncontrolled she was admitted for observation and MRI. MRI of the brain was obtained this AM and showed improvement in the known area of disease as compared to 05/2018 scan. Her most recent MRI images (completed in [place] ) were obtained this afternoon and a request to compare as been made with radiology. Ms. Guevara states that her headache is stable to slightly improved and she is anxious to go home. The double vision has resolved and she states the nausea is better. She is motivated to return home with her prior pain regimen and denies further questions or concerns. We discussed consideration for LP due to the recurrent headaches and persistent nausea, however she is unwilling to consider this due to what she states was a "terrible experience" in 05/2018. She is stable for d/c home and will follow-up in our office on 04/[address] Hill as previously planned. Plan of care reviewed and questions answered.
[2019-04-16] MEDS ORDERED: Influenza VAC *QUAD* 2019-20* 0.5 ML SYRINGE IM ONE (09:00)
[2019-04-16] MEDS ORDERED: Pneumococcal *Vac Polyvalent 0.5 ML VIAL IM ONE (09:00)
== END 2019-04-15 17:35 | disposition home or self-care (01) ==
LOC: ED 11:49 → MED 15:42
PROVIDERS: ADMIT Internal Medicine Hematology & Oncology; ATTEND Internal Medicine Hematology & Oncology
DX: R51 Headache (principal); C50.919 Malignant neoplasm of unspecified site of unspecified female breast; G89.29 Other chronic pain; F32.9 Major depressive disorder, single episode, unspecified; J44.9 Chronic obstructive pulmonary disease, unspecified; Z79.899 Other long term (current) drug therapy; E11.9 Type 2 diabetes mellitus without complications; I50.9 Heart failure, unspecified; Z86.718 Personal history of other venous thrombosis and embolism; E78.00 Pure hypercholesterolemia, unspecified; F17.210 Nicotine dependence, cigarettes, uncomplicated
CPT/HCPCS: 36415; 70450; 70553; 71045; 71275; 80053; 81003; 83605; 84484; 85025; 85610; 86140; 87040; 93005; 94640; 96361; 96374; 96375; 96376; 99213; 99219; 99239; 99284; A9270-GY; A9579; G0378; J1170; J1642; J1885; J2405; J3535; J7512; Q9967

== ENCOUNTER 2019-07-06 10:09 | Observation (INO) | payer OTHER ==
--- OUTSIDE RECORDS SUMMARY | 2019-07-06 10:43 | XMS REPORT ---
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 Clinician (SIG) Name Name No Known No Known No None None None Medications Medications For This For This Patient Patient Procedures This patient has no known procedures. Results This patient has no known results.
--- OUTSIDE RECORDS SUMMARY | 2019-07-06 10:43 | XMS REPORT ---
:1975 Author Organization [facility] Care Team Providers Name Role Phone Unavailable [...]
--- OUTSIDE RECORDS SUMMARY | 2019-07-06 10:43 | XMS REPORT ---
:1975 Author Organization [facility] Care Team Providers Name Role Phone Unavailable [...]
--- OUTSIDE RECORDS SUMMARY | 2019-07-06 10:43 | XMS REPORT ---
:1975 Author Organization [facility] Care Team Providers Name Role Phone Unavailable [...]
--- OUTSIDE RECORDS SUMMARY | 2019-07-06 10:43 | XMS REPORT ---
:1975 Author Organization [facility] Care Team Providers Name Role Phone Unavailable [...]
--- OUTSIDE RECORDS SUMMARY | 2019-07-06 10:43 | XMS REPORT ---
:1975 Author Organization [facility] Care Team Providers Name Role Phone Unavailable [...]
--- OUTSIDE RECORDS SUMMARY | 2019-07-06 10:43 | XMS REPORT ---
:1975 Author Organization [facility] Care Team Providers Name Role Phone Unavailable Unavailable Unavailable Problems Condition Condition Condition Status Onset Resolution Last Treating Comments Name Details Category Date Date Treatment Clinician Date Pain frequent Pain Mgmt Resolve 2017-072018-08-27 Love pain d 08-16 15:00:00 Brooks 10:20: [id number] 00 Respiratory smoker Respirator Resolve 2017-072018-07-23 Love y d 08-16 15:00:00 Brooks 10:20: [id number] 00 Endo/Jose anti-coagul Endo/Jose Resolve 2017-072018-06-25 Love ation d 08-16 15:00:00 Brooks therapy 10:20: [id number] 00 Nutrition nutritional Nutrition Resolve 2017-072018-07-04 Love restriction d 08-16 15:00:00 Brooks s 10:20: [id number] 00 Neuro confusion Neuro/Emot Resolve 2017-072018-08-06 Love present ion d 08-16 15:00:00 Brooks 10:20: [id number] 00 Neuro anxiety Neuro/Emot Resolve 2017-072018-08-06 Love present ion d 08-16 15:00:00 Brooks 10:20: [id number] 00 Neuro depressive Neuro/Emot Resolve 2017-072018-08-06 Love feelings ion d 08-16 15:00:00 Carly present 10:20: [id number] 00 Safety risk for Safety Resolve 2017-072018-07-04 Love hospitaliza d 08-16 15:00:00 Brooks tion 10:20: [id number] 00 Safety fall risk Safety Resolve 2017-072018-07-04 Ericka factor d 08-16 15:00:00 Vivian present 10:20: 00 Musculoskel requires Musculoske Resolve 2017-072018-07-04 Love etal human letal d 08-16 15:00:00 Brooks assist to 10:20: [id number] leave home 00 Cardio hypertensio Cardiovasc Resolve 2017-072018-08-06 Shelby yuar d 08-20 15:00:00 [place] 13:00: 00 Respiratory dyspnea Respirator Unknown 2017-07 Shelby present y 08-20 [place] 13:00: 00 Respiratory oxygen Respirator Resolve 2017-072018-09-03 Shelby treatments y d 08-20 13:15:00 [place]le[place] in home 13:00: 00 Respiratory lung sounds Respirator Resolve 2017-072018-07-23 Shelby deficit y d 08-20 15:00:00 [place] 13:00: 00 Nutrition changing Nutrition Resolve 2017-072018-07-04 Shelby weight/appe d 08-20 15:00:00 Vallely tite 13:00: 00 Nutrition nutritional Nutrition Resolve 2017-072018-07-04 Shelby risk d 08-20 15:00:00 [place] 13:00: 00 Elimination nausea/vomi Eliminatio Resolve 2017-072018-07-04 Shelby soni n d 08-20 15:00:00 [place] 13:00: 00 Integument skin Integument Resolve 2017-072018-07-04 Shelby integrity d 205 15:00:00 [place] risk 15:00: 00 Social financial BRISEYDA: Active 2017-07 [facility] resource Social 2-10 [place] deficit Services 14:00: [id number] 00 Social knowledge/s BRISEYDA: Resolve 2017-072018-09-22 [facility] kill Social d 2-10 13:00:00 [place] deficit - Services 14:00: [id number] pt 00 Social knowledge/s BRISEYDA: Resolve 2017-072018-09-22 [facility] kill Social d 2-10 13:00:00 [place] deficit - Services 14:00: [id number] cg 00 Musculoskel requires Musculoske Resolve 2017-072018-07-16 Shelby etal human letal d 2-19 15:00:00 Vallely assist to 15:30: leave home 00 Diagnoses knowledge/s Diagnoses Active 2017-07 Kezia kill 2-24 [place] deficit: cg 13:00: [id number] 00 Integument skin Integument Resolve 2017-072018-08-06 Shelby integrity d 2- 15:00:00 [place] risk 15:00: 00 Respiratory oxygen Respirator Unknown Shelby treatments y 1-09 [place] in home 15:00: 00 Respiratory smoker Respirator Resolve 2018-09-10 Shelby y d 1-09 15:00:00 [place] 15:00: 00 Respiratory lung sounds Respirator Resolve 2018-08-13 Shelby deficit y d 1- 15:00:00 [place] 15:00: 00 Integument surgical Integument Resolve 2018-08-20 Shelby wound d 1- 15:15:00 Valle[place] present 15:00: 00 Neuro anxiety Neuro/Emot Resolve 2018-08-27 Shelby present ion d 1-23 15:00:00 Vallely 15:00: 00 Neuro depressive Neuro/Emot Resolve 2018-08-27 Shelby feelings ion d 23 15:00:00 Vallely present 15:00: 00 Musculoskel requires Musculoske Resolve 2018-08-20 Shelby etal human letal d 1-23 15:15:00 Vallely assist to 15:00: leave home 00 Integument skin Integument Resolve 2018-08-20 Shelby integrity d 130 15:15:00 Valle[place] risk 15:15: 00 Respiratory asthma Respirator Resolve 2018-09-10 Shelby y d 2-06 15:00:00 Vallely 15:00: 00 Integument skin Integument Resolve 2018-09-03 Shelby integrity d 2-06 13:15:00 Valle[place] risk 15:00: 00 Neuro depressive Neuro/Emot Resolve 2018-09-17 Shelby feelings ion d 2-13 15:00:00 Vallely present 13:15: 00 Safety risk for Safety Active Kezia hospitaliza 2-18 [place] tion 14:00: [id number] 00 Safety can be left Safety Unknown Kezia alone for 2-18 [place] only short 14:00: [id number] periods 00 Pain frequent Pain Mgmt Resolve 2018-2018-09-24 Lam pain d 2-27 15:00:00 Briones 15:50: [id number] 00 Safety can be left Safety Resolve 2018-10-08 Kezia alone for d 3-04 15:00:00 [place] only short 13:00: [id number] periods 00 Cardio edema Cardiovasc Resolve 2018-10-08 Shelby ular d 3-13 15:00:00 [place] 15:00: 00 Social knowledge/s BRISEYDA: Resolve 2018-10-10 [facility] kill Social d 3-13 16:00:00 [place] deficit - Services 15:00: pt 00 Pain frequent Pain Mgmt Resolve 2018-10-29 Shelby pain d 3-20 13:00:00 Vallely 15:00: 00 Respiratory smoker Respirator Resolve 2018-10-15 Shelby y d 3- 15:00:00 Vallely 15:00: 00 Neuro depressive Neuro/Emot Resolve 2018-10-22 Shelby feelings ion d 3- 15:00:00 Vallely present 15:00: 00 Musculoskel requires Musculoske Resolve 2018-10-15 Shelby ageel human letal d 3- 15:00:00 Vallely assist to 15:00: leave home 00 Elimination nausea/vomi Eliminatio Resolve 2018-2018-10-22 Shelby soni n d 3- 15:00:00 [place] 15:00: 00 Medication oral med Meds Resolve 2018-11-05 Shelby assistance d 3- 13:00:00 Valle[place] required 15:00: 00 Respiratory dyspnea Respirator Unknown 2018- Shelby gilmore y 4- Val[place] 15:00: 00 Respiratory smoker Respirator Resolve 2018-10-29 Shelby y d 4- 13:00:00 Vallely 15:00: 00 Neuro anxiety Neuro/Emot Resolve 2018-2018-11-05 Shelby present ion d 4- 13:00:00 Vallely 15:00: 00 Neuro depressive Neuro/Emot Resolve 2018-11-05 Lam feelings ion d 4-08 13:00:00 Briones present 15:45: [id number] 00 Respiratory lung sounds Respirator Resolve 2018-10-29 Shelby deficit y d 4-10 13:00:00 [place] 13:00: 00 Infection s/s of Infection Resolve 2019-02-04 Shelby infection d 4-17 12:30:00 Valle[place] 13:00: 00 Respiratory smoker Respirator Resolve 2018-11-05 Shelby y d 4-17 13:00:00 Vallely 13:00: 00 Neuro depressive Neuro/Emot Resolve 2018-12-10 Lam feelings ion d 4-20 12:30:00 Briones present 12:20: [id number] 00 Respiratory smoker Respirator Resolve 2018-11-20 Shelby y d 4-24 12:30:00 [place] 12:30: 00 Respiratory oxygen Respirator Resolve 2018-12-04 Shelby treatments y d 5-08 12:30:00 Vallely in home 12:30: 00 Respiratory smoker Respirator Resolve 2019-01-07 Shelby y d 5-08 12:30:00 Vallely 12:30: 00 Safety can be left Safety Resolve 2018-12-10 Shelby alone for d 508 12:30:00 Val[place] only short 12:30: periods 00 Social knowledge/s BRISEYDA: Resolve 2018-11-26 [facility] kill Social d 08 13:30:00 [place] deficit - Services 13:30: [id number] pt 00 Respiratory lung sounds Respirator Resolve 2018-12-04 Shelby deficit y d 5-16 12:30:00 [place] 12:30: 00 Elimination diarrhea Eliminatio Resolve 2018-12-10 Shelby n d 16 12:30:00 Val[place]ly 12:30: 00 Social knowledge/s BRISEYDA: Resolve 2019-01-16 [facility] kill Social d 16 15:00:00 [place] deficit - Services 12:30: pt 00 Pain frequent Pain Mgmt Resolve 2018-12-10 Shelby pain d 12-10 12:30:00 Vallely 12:30: 00 Elimination nausea/vomi Eliminatio Resolve 2018-12-31 Lavinia soni n d 12-18 12:30:00 Narendra 12:30: [id number] 00 Respiratory lung sounds Respirator Resolve 2018-12-24 Shelby deficit y d 605 12:30:00 [place]le[place] 12:30: 00 Elimination diarrhea Eliminatio Resolve 2018-12-31 Shelby n d 6 12:30:00 Vallely 12:30: 00 Cardio hypertensio Cardiovasc Resolve 2019-01-07 Shelby n ular d 6 12:30:00 Vallely 12:30: 00 Respiratory lung sounds Respirator Resolve 2018-12-31 Shelby deficit y d 612 12:30:00 Vallely 12:30: 00 Respiratory asthma Respirator Resolve 2018-12-31 Shelby y d 12 12:30:00 Vallely 12:30: 00 Neuro anxiety Neuro/Emot Resolve 2019-01-07 Shelby present ion d 612 12:30:00 Vallely 12:30: 00 Neuro depressive Neuro/Emot Resolve 2019-01-07 Shelby feelings ion d 612 12:30:00 Vallely present 12:30: 00 Respiratory oxygen Respirator Resolve 2019-01-08 Shelby treatments y d 6-14 15:00:00 Vallely in home 11:30: 00 Respiratory knowledge/s Respirator Resolve 2019-01-07 Shelby kill y d 6-14 12:30:00 Val[place] deficit: pt 11:30: 00 Respiratory lung sounds Respirator Resolve 2019-01-07 Shelby deficit y d 6-14 12:30:00 Vallely 11:30: 00 Endo/Jose newly Endo/Jose Resolve 2019-02-11 Shelby diagnosed d 6-14 12:30:00 Vallely diabetes 11:30: 00 Endo/Jose knowledge/s Endo/Jose Resolve 2019-02-11 Shelby kill d 6-14 12:30:00 [place] deficit 11:30: hypo/hyperg 00 lycemia: pt Endo/Jose anti-coagul Endo/Jose Active Shelby atjcarlos 6-14 [place] therapy 11:30: 00 Medication oral med Meds Resolve 2019-01-07 Shelby assistance d 6-14 12:30:00 Vallely required 11:30: 00 Medication inhalant Meds Resolve 2019-01-07 Shelby med d 6-14 12:30:00 Valle[place] assistance 11:30: required 00 Medication potential Meds Resolve 2019-01-07 Shelby clinically d 6-14 12:30:00 Vallely significant 11:30: medication 00 issue Respiratory dyspnea Respirator Resolve 2019-01-08 Shelby present y d 6 15:00:00 Vallely 12:30: 00 Nutrition nutritional Nutrition Resolve 2019-01-08 Shelby restriction d 6 15:00:00 Vallely s 15:00: 00 Neuro depressive Neuro/Emot Resolve 2019-02-18 Shelby feelings ion d 6 12:10:00 Vallely present 15:00: 00 Activity ADL Activity Resolve 2019-02-18 Shelby assistance d 6 12:10:00 Vallely required 15:00: 00 Musculoskel requires Musculoske Resolve 2019-01-08 Shelby etal human letal d 6 15:00:00 Vallely assist to 15:00: leave home 00 Respiratory oxygen Respirator Resolve 2019-01-21 [place] treatments y d 6 12:30:00 Vallely in home 12:30: 00 Respiratory lung sounds Respirator Resolve 2019-01-21 Shelby deficit y d 6 12:30:00 Vallely 12:30: 00 Nutrition nutritional Nutrition Resolve 2019-01-14 Shelby restriction d 01-14 12:30:00 Vallely s 12:30: 00 Elimination nausea/vomi Eliminatio Resolve 2019-01-21 Shelby ting n d 6 12:30:00 Vallely 12:30: 00 Musculoskel requires Musculoske Resolve 2019-01-14 Shelby etal human letal d 01-14 12:30:00 Vallely assist to 12:30: leave home 00 Social support BRISEYDA: Active [facility] deficit Social 01-14 [facility] Services 12:30: 00 Nutrition nutritional Nutrition Resolve 2019-01-21 Kezia restriction d 01-16 12:30:00 [place] s 15:00: [id number] 00 Safety can be left Safety Resolve 2019-02-18 Kezia alone for d 01-16 12:10:00 [place] only short 15:00: [id number] periods 00 Respiratory smoker Respirator Resolve 2019-01-21 Shelby y d 01-21 12:30:00 Vallely 12:30: 00 Nutrition nutritional Nutrition Resolve 2019-01-21 Shelby risk d 01-21 12:30:00 Vallely 12:30: 00 Musculoskel requires Musculoske Resolve 2019-01-28 Shelby etal human letal d 01-21 13:00:00 Vallely assist to 12:30: leave home 00 Respiratory smoker Respirator Resolve 2018-2019-01-28 Shelby y d 7-10 13:00:00 Vallely 13:00: 00 Respiratory dyspnea Respirator Unknown 2018- Shelby gilmore y 7-10 [place] 13:00: 00 Respiratory oxygen Respirator Unknown 2018- Shelby ruby y 7-10 Vallely in home 13:00: 00 Elimination diarrhea Eliminatio Resolve 2018-2019-02-04 Shelby n d 7-10 12:30:00 Vallely 13:00: 00 Elimination nausea/vomi Eliminatio Active 2018- Shelby soni n 7-10 [place] 13:00: 00 Neuro anxiety Neuro/Emot Resolve 2019-02-18 Shelby gilmore ion d 7-10 12:10:00 Vallely 13:00: 00 Social knowledge/s BRISEYDA: Active [facility] kill Social 7 [place] deficit - Services 13:00: pt 00 Social knowledge/s BRISEYDA: Active [facility] kill Social 01-30 [place] deficit - Services 14:00: [id number] 00 Respiratory lung sounds Respirator Resolve 2019-02-04 Shelby deficit y d 7-17 12:30:00 Vallely 12:30: 00 Respiratory oxygen Respirator Resolve 2019-02-04 Shelby treatments y d 7- 12:30:00 Vallely in home 12:30: 00 Respiratory smoker Respirator Resolve 2019-02-04 Shelby y d 7 12:30:00 Vallely 12:30: 00 Musculoskel requires Musculoske Resolve 2019-02-06 Shelby etal human letal d 7 12:30:00 Vallely assist to 12:30: leave home 00 Respiratory oxygen Respirator Resolve 2019-02-06 Shelby treatments y d 7 12:30:00 Vallely in home 12:30: 00 Safety fall risk Safety Resolve 2019-02-11 Shelby factor d 7 12:30:00 Vallely present 12:30: 00 Respiratory oxygen Respirator Resolve 2019-02-11 Shelby treatments y d 7 12:30:00 Vallely in home 12:30: 00 Respiratory smoker Respirator Resolve 2019-02-11 Shelby y d 7 12:30:00 Vallely 12:30: 00 Respiratory lung sounds Respirator Resolve 2019-02-18 Shelby deficit y d 7 12:10:00 Vallely 12:10: 00 Respiratory dyspnea Respirator Active Shelby present y 02-18 Val[place] 12:10: 00 Respiratory oxygen Respirator Resolve 2019-02-18 Shelby treatments y d 7 12:10:00 Vallely in home 12:10: 00 Neuro depressive Neuro/Emot Unknown Kezia feelings ion 02-18 [place] present 14:30: [id number] 00 Respiratory lung sounds Respirator Resolve 2019-03-04 Shelby deficit y d 8-14 12:20:00 Vallely 12:20: 00 Respiratory smoker Respirator Resolve 2019-03-04 Shelby y d 8-14 12:20:00 Vallely 12:20: 00 Respiratory dyspnea Respirator Active Shelby present y 8-14 [place] 12:20: 00 Respiratory oxygen Respirator Resolve 2019-03-04 Shelby treatments y d 8-14 12:20:00 Vallely in home 12:20: 00 Respiratory smoker Respirator Resolve 2019-03-11 Shelby y d 8 12:30:00 Val[place] 12:30: 00 Respiratory dyspnea Respirator Active Shelby present y - Valle[place] 12:30: 00 Respiratory oxygen Respirator Resolve 2019-03-11 Shelby treatments y d 8 12:30:00 Vallely in home 12:30: 00 Endo/Jose knowledge/s Endo/Jose Resolve 2019-03-25 Shelby kill d 03-11 12:30:00 [place] deficit: pt 12:30: 00 Elimination constipatio Eliminatio Active Shelby n n 03-11 [place] 12:30: 00 Safety can be left Safety Resolve 2019-04-29 Kezia alone for d 03-12 12:30:00 [place] only short 15:30: [id number] periods Respiratory smoker Respirator Resolve 2019-03-12 Shelby y d 03-12 16:00:00 Val[place] 16:00: 00 Respiratory oxygen Respirator Unknown Shelby treatments y 03-12 Val[place] in home 16:00: 00 Endo/Jose newly Endo/Jose Active Shelby diagnosed 03-12 Val[place] diabetes 16:00: 00 Nutrition nutritional Nutrition Resolve 2019-03-12 Shelby restriction d 03-12 16:00:00 Vallely s 16:00: 00 Musculoskel requires Musculoske Resolve 2019-03-18 Shelby etal human letal d 03-12 12:30:00 Vallely assist to 16:00: leave home 00 Respiratory lung sounds Respirator Resolve 2019-03-18 Shelby deficit y d 03-18 12:30:00 Vallely 12:30: 00 Respiratory smoker Respirator Resolve 2019-03-18 Shelby y d 03-18 12:30:00 [place] 12:30: 00 Respiratory oxygen Respirator Resolve 2019-03-18 Shelby treatments y d 03-18 12:30:00 Vallely in home 12:30: 00 Respiratory oxygen Respirator Resolve 2019-03-25 Shelby treatments y d 03-25 12:30:00 Vallely in home 12:30: 00 Musculoskel requires Musculoske Resolve 2019-04-01 Shelby etal human letal d 03-25 12:30:00 Vallely assist to 12:30: leave home 00 Respiratory oxygen Respirator Resolve 2019-04-01 Shelby treatments y d 04-01 12:30:00 Vallely in home 12:30: 00 Respiratory smoker Respirator Resolve 2019-04-01 Shelby y d 04-01 12:30:00 Valle[place] 12:30: 00 Respiratory smoker Respirator Resolve 2019-04-08 Shelby y d 04-08 12:30:00 Vallely 12:30: 00 Musculoskel requires Musculoske Resolve 2019-04-08 Shelby etal human letal d 04-08 12:30:00 Vallely assist to 12:30: leave home 00 Respiratory oxygen Respirator Unknown Shelby treatments y 04-16 Val[place] in home 12:55: 00 Respiratory smoker Respirator Resolve 2019-04-16 Shelby y d 04-16 12:55:00 Val[place] 12:55: 00 Musculoskel requires Musculoske Resolve 2019-04-16 Shelby etal human letal d 04-16 12:55:00 Vallely assist to 12:55: leave home 00 Infection s/s of Infection Active 2018-07 Shelby infection 0-02 Val[place] 13:30: 00 Respiratory lung sounds Respirator Resolve 2018-072019-05-13 Shelby deficit y d 0-02 12:30:00 Val[place] 13:30: 00 Respiratory oxygen Respirator Unknown 2018-07 Shelby treatments y 0-02 Val[place] in home 13:30: 00 Respiratory smoker Respirator Unknown 2018-07 Shelby y 0-02 [place] 13:30: 00 Neuro anxiety Neuro/Emot Resolve 2018-072019-04-29 Shelby present ion d 0-02 12:30:00 Vallely 13:30: 00 Neuro depressive Neuro/Emot Active 2018-07 Shelby feelings ion 0-02 Vallely present 13:30: 00 Musculoskel requires Musculoske Resolve 2018-072019-04-22 Shelby etal human letal d 0-02 13:30:00 Vallely assist to 13:30: leave home 00 Respiratory oxygen Respirator Unknown 2018-07 Shelby treatments y 0-09 Val[place] in home 12:30: 00 Respiratory smoker Respirator Resolve 2018-072019-04-29 Shelby y d 0-09 12:30:00 Vallely 12:30: 00 Musculoskel requires Musculoske Resolve 2018-072019-04-29 Shelby etal human letal d 0-09 12:30:00 Valle[place] assist to 12:30: leave home 00 Safety can be left Safety Resolve 2018-072019-06-03 Kezia alone for d 0-14 12:45:00 [place] only short 15:00: [id number] periods 00 Musculoskel requires Musculoske Resolve 2018-072019-05-06 Shelby etal human letal d 0-16 12:45:00 [place] assist to 12:45: leave home 00 Respiratory oxygen Respirator Resolve 2018-072019-05-13 Shelby treatments y d 0-23 12:30:00 Vallely in home 12:30: 00 Nutrition nutritional Nutrition Resolve 2018-072019-05-13 Shelby restriction d 0-23 12:30:00 Vallely s 12:30: 00 Musculoskel requires Musculoske Resolve 2018-072019-05-13 Shelby etal human letal d 0-23 12:30:00 Vallely assist to 12:30: leave home 00 Respiratory oxygen Respirator Resolve 2018-072019-05-20 [place] treatments y d 0-30 11:15:00 Valle[place] in home 11:15: 00 Musculoskel requires Musculoske Resolve 2018-072019-05-27 Shelby etal human letal d 0-30 12:25:00 Val[place] assist to 11:15: leave home 00 Respiratory oxygen Respirator Resolve 2018-072019-05-27 Shelby treatments y d 1-06 12:25:00 Vallely in home 12:25: 00 Respiratory smoker Respirator Resolve 2018-072019-05-27 Shelby y d 1-06 12:25:00 Val[place] 12:25: 00 Respiratory lung sounds Respirator Resolve 2018-072019-06-03 Shelby deficit y d 1-13 12:45:00 [place] 12:45: 00 Respiratory oxygen Respirator Resolve 2018-072019-06-03 Shelby treatments y d 1-13 12:45:00 Vallely in home 12:45: 00 Respiratory smoker Respirator Resolve 2018-072019-06-10 Shelby y d 1-20 12:00:00 [place] 12:00: 00 Respiratory oxygen Respirator Resolve 2018-072019-06-10 Shelby treatments y d 1-20 12:00:00 Valle[place] in home 12:00: 00 Safety fall risk Safety Resolve 2018-072019-06-17 Shelby factor d 1-20 12:00:00 Vallely present 12:00: 00 Musculoskel requires Musculoske Resolve 2018-072019-06-10 Shelby etal human letal d 1-20 12:00:00 Valle[place] assist to 12:00: leave home 00 Respiratory oxygen Respirator Resolve 2018-072019-06-17 Shelby treatments y d 1 12:00:00 Valle[place] in home 12:00: 00 Respiratory smoker Respirator Resolve 2018-072019-06-17 Shelby y d 127 12:00:00 Valle[place] 12:00: 00 Musculoskel requires Musculoske Resolve 2018-072019-06-24 Shelby etal human letal d 1-27 11:55:00 Valle[place] assist to 12:00: leave home 00 Respiratory oxygen Respirator Resolve 2018-072019-06-24 Shelby treatments y d 2-04 11:55:00 Valle[place] in home 11:55: 00 Respiratory smoker Respirator Resolve 2018-072019-06-24 Shelby y d 2-04 11:55:00 [place] 11:55: 00 Respiratory oxygen Respirator Active 2018- Shelby treatments y 2-11 [place] in home 12:00: 00 Respiratory lung sounds Respirator Active 2018-07 Shelby fregoso y 2-11 [place] 12:00: 00 Respiratory pneumonia Respirator Resolve 2018-072019-07-01 Shelby y d 2-11 12:00:00 [place] 12:00: 00 Respiratory smoker Respirator Resolve 2018-072019-07-01 Shelby y d 2-11 12:00:00 Val[place] 12:00: 00 Musculoskel requires Musculoske Resolve 2018-072019-07-01 Shelby etal human letal d 2-11 12:00:00 Valle[place] assist to 12:00: leave home 00 Allergies, Adverse Reactions, Alerts Allergy Allergy Status Severity Reaction(s) Onset Inactive Treating Comments Name Type Date Date Clinician phenergan Unknown Active Unknown Reaction Ernestine Unknown 3-23 (Robert) [place] [id number] effexor Unknown Active Unknown Reaction Ernestine Unknown 3-23 (Robert) [place] [id number] compazine Unknown Active Unknown Reaction Ernestine Unknown 3-23 (Robert) [place] [id number] adhesive Unknown Active Unknown Reaction Ernestine tape Unknown 3-23 (Robert) [place] [id number] milk Unknown Active Unknown Reaction Ernestine Unknown 3-23 (Robert) [place] [id number] prochlorper Base Active Unknown extrapyramidal 2017-07 [place] azine Ingredient symptoms 1-19 Dilip venlafaxine Base Active Severe Hives, 2017-07 [place] Ingredient difficulty -19 Dilip breathing, itching promethazin Base Active Unknown extrapyramidal 2017-07 [place] e Ingredient symptoms - Dilip Gadolinium- Allergen Active Severe Anaphylaxis [facility] Containing Group 04-16 [place] Contrast Media Medications Ordered Filled Start Stop Current Ordering Indication Dosage Frequency Signature Comments Components Medication Medication Date Date Medication? Clinician (SIG) Name Name ALPRAZolam ALPRAZolam 2017-07 No Liz Unknown Unknown 1 mg tablet 1 mg tablet 08-16 Jill CARRENO Aspirin Low Aspirin Low No Stevanovic 81 mg Unknown Dose 81 mg Dose 81 mg ,[place]oomir tablet,suzan tablet,suzan yed release yed release gabapentin gabapentin No Stevanovic 100 mg Unknown 100 mg 100 mg ,Radomir capsule capsule gabapentin gabapentin No Stevanovic 300 mg Unknown 100 mg 100 mg MD,[facility] capsule capsule mirtazapine mirtazapine No Stevanovic 45 mg Unknown 45 mg 45 mg MD,[facility] tablet tablet traZODone traZODone 2017-07- Stevanovic Unknown Unknown 100 mg 100 mg 08-16 MD,Radomir tablet tablet cetirizine cetirizine No Stevanovic 10 mg Unknown 10 mg 10 mg MD,Rad[facility] capsule capsule potassium potassium No Stevanovic 20 meq Unknown chloride ER chloride ER MD,Radomir 20 mEq 20 mEq tablet,exte tablet,exte nded nded release(par release(par t/cryst) t/cryst) Xarelto 20 Xarelto 20 2017-07 Stevanovic Unknown Unknown mg tablet mg tablet 08-16 ,[facility] SUMAtriptan SUMAtriptan No Stevanovic 50 mg Unknown 50 mg 50 mg MD,[facility] tablet tablet zolpidem 10 zolpidem 10 No Stevanovic 10 mg Unknown mg tablet mg tablet ,[facility] dexAMETHaso dexAMETHaso No Stevanovic 8 mg Unknown ne 4 mg ne 4 mg MD,Rad[facility] tablet tablet oxyMORphone oxyMORphone No Stevanovic 20 mg Unknown ER 20 mg ER 20 mg MD,Rad[place] tablet,exte tablet,exte nded nded release,12 release,12 hr hr oxygen oxygen No Stevanovic 2 Unknown MD,Rad[place] liters ondansetron ondansetron 2017-07 No Liz Unknown Unknown HCl 4 mg HCl 4 mg 08-16 Jill CARRENO tablet tablet oxyCODONE oxyCODONE No Stevanovic 10mg Unknown 10 mg 10 mg MD,[facility] tablet tablet escitalopra escitalopra No Stevanovic 20mg Unknown m 20 mg m 20 mg ,[facility] tablet tablet Rexulti 2 Rexulti 2 2017-07 No Liz Unknown Unknown mg tablet mg tablet 08-16 Jill CARRENO Imodium A-D Imodium A-D No Stevanovic 2mg Unknown 2 mg tablet 2 mg tablet ,[place] dexAMETHaso dexAMETHaso 2017-07 Liz Unknown Unknown ne 6 mg ne 6 mg 08-16 Jill CARRENO tablet tablet fentaNYL 75 fentaNYL 75 2017-07- No Liz Unknown Unknown mcg/hr mcg/hr 08-16 Jill CARRENO transdermal transdermal patch patch oxyCODONE 5 oxyCODONE 5 2017-07- No Liz Unknown Unknown mg tablet mg tablet 08-16 Jill CARRENO naproxen naproxen 2017-07 No Liz Unknown Unknown sodium 220 sodium 220 08-16 Jill CARRENO mg tablet mg tablet Vitamin D3 Vitamin D3 2017-07- No Liz Unknown Unknown 1,000 unit 1,000 unit 08-16 05 Jill CARRENO (25 mcg) (25 mcg) tablet tablet Lupron Lupron 2017-07 No Liz Unknown Unknown Depot 11.25 Depot 11.25 08-16 Jill CARRENO mg (3 mg (3 month) month) intramuscul intramuscul ar syringe ar syringe kit kit mirtazapine mirtazapine 2017-07 No Liz Unknown Unknown 30 mg 30 mg 08-16 Jill CARRENO tablet tablet Colace 100 Colace 100 2017-07- No Liz Unknown Unknown mg capsule mg capsule 08-16 07 Jill CARRENO DULoxetine DULoxetine 2017-07- No Liz Unknown Unknown 30 mg 30 mg 08-16 09 Jill CARRENO capsule,del capsule,del ayed ayed release release anastrozole anastrozole 2017-07- No Liz Unknown Unknown 1 mg tablet 1 mg tablet 08-16 Jill CARRENO Soma 250 mg Soma 250 mg 2017-07- No Liz Unknown Unknown tablet tablet 08-16 Jill CARRENO fentaNYL fentaNYL 2017-07- No Liz Unknown Unknown 100 mcg/hr 100 mcg/hr 08-22 Jill CARRENO transdermal transdermal patch patch AirDuo AirDuo 2017-07- No Liz Unknown Unknown RespiClick RespiClick 08-20 Jill CARRENO 113 mcg-14 113 mcg-14 mcg/actuati mcg/actuati on breath on breath activated activated fluconazole fluconazole 2017-07- No Liz Unknown Unknown 200 mg 200 mg 08-24 Jill CARRENO tablet tablet Bactrim DS Bactrim DS 2017-07- No Liz Unknown Unknown 800 mg-160 800 mg-160 09-02 Jill CARRENO mg tablet mg tablet Klor-Con Klor-Con 2017-07- No Liz Unknown Unknown M10 mEq M10 mEq 09-02 ,Jill tablet,exte tablet,exte nded nded release release albuterol albuterol 2017-07- No Liz Unknown Unknown sulfate HFA sulfate HFA 09-16 Jill CARRENO 90 90 mcg/actuati mcg/actuati on aerosol on aerosol inhaler inhaler albuterol albuterol 2017-07 No Liz Unknown Unknown sulfate HFA sulfate HFA 09-16 Jill CARRENO 90 90 mcg/actuati mcg/actuati on aerosol on aerosol inhaler inhaler oxyCODONE 5 oxyCODONE 5 2018- No Liz Unknown Unknown mg tablet mg tablet 08-01 Jill CARRENO oxyCODONE 5 oxyCODONE 5 2018- No Liz Unknown Unknown mg tablet mg tablet 08-01 Jill CARRENO Soma 250 mg Soma 250 mg 2018- No Liz Unknown Unknown tablet tablet 08-06 Jill CARRENO Nyamyc Nyamyc No Liz Unknown Unknown 100,000 100,000 08-02 Jill CARRENO unit/gram unit/gram topical topical powder powder fluconazole fluconazole 2018- No Liz Unknown Unknown 100 mg 100 mg 08-02 Jill CARRENO tablet tablet levoFLOXaci levoFLOXaci 2018- No Liz Unknown Unknown n 750 mg n 750 mg 08-05 Jill CARRENO tablet tablet Triple Triple No Schwed Unknown Unknown Antibiotic- Antibiotic- 09-16 Darren CARRENO Pain Relief Pain Relief 3.5 mg-500 3.5 mg-500 unit-10,000 unit-10,000 unit/gram unit/gram ointmnt ointmnt fentaNYL 25 fentaNYL 25 2018- No Liz Unknown Unknown mcg/hr mcg/hr 10-01 Jill CARRENO transdermal transdermal patch patch methocarbam methocarbam 2018- No Liz Unknown Unknown ol 750 mg ol 750 mg 10-23 04-10 Jill CARRENO tablet tablet pantoprazol pantoprazol No Liz Unknown Unknown e 40 mg e 40 mg 10-29 ,Jill tablet,suzan tablet,suzan yed release yed release cetirizine cetirizine No Liz Unknown Unknown 10 mg 10 mg 4-10 ,Jill tablet tablet ondansetron ondansetron No Liz Unknown Unknown 4 mg 4 mg 4-10 ,Jill disintegrat disintegrat ing tablet ing tablet amoxicillin amoxicillin 2018- No Liz Unknown Unknown [id number] 10-31 ,Jill mg-potassiu mg-potassiu m m clavulanate clavulanate 125 mg 125 mg tablet tablet oxyCODONE oxyCODONE 2018- No Liz Unknown Unknown 10 mg 10 mg 11-19- ,Jill tablet tablet nyquil nyquil No Liz Unknown Unknown 5 ,Jill vinorelbine vinorelbine 2018- No Liz Unknown Unknown 11-25 ,Jill metroNIDAZO metroNIDAZO 2018- No Liz Unknown Unknown LE 500 mg LE 500 mg 02-03 ,Jill tablet tablet amoxicillin amoxicillin 2018- No Liz Unknown Unknown [id number] 12-16 ,Jill mg-potassiu mg-potassiu m m clavulanate clavulanate 125 mg 125 mg tablet tablet gabapentin gabapentin 2018- No Liz Unknown Unknown 100 mg 100 mg 12-09 ,Jill capsule capsule metroNIDAZO metroNIDAZO 2018- No Liz Unknown Unknown LE 500 mg LE 500 mg 12-09 ,Jill tablet tablet amoxicillin amoxicillin 2018- No Liz Unknown Unknown [id number] 12-09 ,Jill mg-potassiu mg-potassiu m m clavulanate clavulanate 125 mg 125 mg tablet tablet Imodium A-D Imodium A-D No Liz Unknown Unknown 2 mg tablet 2 mg tablet 12-24 ,Jill fentaNYL fentaNYL No Liz Unknown Unknown 100 mcg/hr 100 mcg/hr 12-31 Jill CARRENO transdermal transdermal patch patch Soma 250 mg Soma 250 mg 2018- No Liz Unknown Unknown tablet tablet 01-01 ,Jill Symbicort Symbicort No Liz Unknown Unknown 160 mcg-4.5 160 mcg-4.5 01-01 ,Jill mcg/actuati mcg/actuati on HFA on HFA aerosol aerosol inhaler inhaler glyBURIDE glyBURIDE 2018- No Liz Unknown Unknown 2.5 mg 2.5 mg 01-01 ,Jill tablet tablet predniSONE predniSONE 2018- No Liz Unknown Unknown 20 mg 20 mg 01-01 ,Jill tablet tablet Zithromax Zithromax 2018- No Liz Unknown Unknown 250 mg 250 mg 01-01 ,Jill tablet tablet oxygen oxygen 2018- No Liz Unknown Unknown 01-01 ,Jill flurazepam flurazepam 2018- No Liz Unknown Unknown 30 mg 30 mg 01-01 ,Jill capsule capsule oxygen oxygen No Liz Unknown Unknown 01-06 ,Jill glyBURIDE glyBURIDE 2018- No Liz Unknown Unknown 2.5 mg 2.5 mg 01-06 MD,Jill tablet tablet glyBURIDE glyBURIDE 2018- No Liz Unknown Unknown 2.5 mg 2.5 mg 01-13 ,Jill tablet tablet oxyCODONE oxyCODONE No Liz Unknown Unknown 10 mg 10 mg 01-27 ,Jill tablet tablet Colace 100 Colace 100 No Liz Unknown Unknown mg capsule mg capsule 01-21 ,Jill Soma 250 mg Soma 250 mg No Liz Unknown Unknown tablet tablet 01-21 ,Jill Miralax 17 Miralax 17 No Liz Unknown Unknown gram oral gram oral 01-21 ,Jill powder powder packet packet Aloxi 0.25 Aloxi 0.25 No Liz Unknown Unknown mg/5 mL mg/5 mL 02-05 Jill CARRENO intravenous intravenous solution solution gabapentin gabapentin 2018- No Liz Unknown Unknown 300 mg 300 mg 02-24- ,Jill capsule capsule metoclopram metoclopram No Liz Unknown Unknown fahad 10 mg fahad 10 mg 02-24 MD,Jill tablet tablet Xarelto 20 Xarelto 20 2017-07 No Liz Unknown Unknown mg tablet mg tablet 08-16 ,Jill traZODone traZODone 2017-07- No Liz Unknown Unknown 100 mg 100 mg 08-16 MD,Jill tablet tablet gabapentin gabapentin 2018- No Liz Unknown Unknown 300 mg 300 mg 03-31 MD,Jill capsule capsule DULoxetine DULoxetine Yes Liz Unknown Unknown 30 mg 30 mg 04-08 MD,Jill capsule,del capsule,del ayed ayed release release flurazepam flurazepam Yes Liz Unknown Unknown 15 mg 15 mg 04-08 MD,Jill capsule capsule gabapentin gabapentin 2018- Yes Liz Unknown Unknown 300 mg 300 mg 04-08 MD,Jill capsule capsule gabapentin gabapentin 2018- Yes Liz Unknown Unknown 300 mg 300 mg 04-08 MD,Jill capsule capsule traZODone traZODone Yes Liz Unknown Unknown 100 mg 100 mg 04-15 MD,Jill tablet tablet Augmentin Augmentin 2018-07- Yes Liz Unknown Unknown 875 mg-125 875 mg-125 0-04 - MD,Jill mg tablet mg tablet Kadcyla 100 Kadcyla 100 2018-07 Yes Liz Unknown Unknown mg mg 0-03 ,Jill intravenous intravenous solution solution sulfacetami sulfacetami 2018-07 Yes Liz Unknown Unknown de sodium de sodium 15 ,Jill 10 % eye 10 % eye drops drops gabapentin gabapentin 2018-07 Yes Liz Unknown Unknown 600 mg 600 mg 15 MD,Jill tablet tablet dronabinol dronabinol 2018-07 Yes Liz Unknown Unknown 5 mg 5 mg 20 MD,Jill capsule capsule Levaquin Levaquin 2018-07- Yes Liz Unknown Unknown 750 mg 750 mg 09-01 MD,Jill tablet tablet Vital Signs Vital Name Observation Time Observation Value Comments SYSTOLIC mm[Hg] 2019-04-08 18:07:54 118 mm[Hg] mm[Hg] Method: Stand SYSTOLIC mm[Hg] 2019-07-01 18:09:18 132 mm[Hg] mm[Hg] Method: Lie DIASTOLIC mm[Hg] 2019-04-08 18:07:54 80 mm[Hg] mm[Hg] Method: Stand DIASTOLIC mm[Hg] 2019-07-01 18:09:18 60 mm[Hg] mm[Hg] Method: Lie PULSE 2019-07-01 18:09:18 114 /min /min RESP RATE 2019-07-01 18:09:18 16 /min /min TEMP 2019-07-01 18:09:18 97.4 [degF] Procedures This patient has no known procedures. Results This patient has no known results.
--- OUTSIDE RECORDS SUMMARY | 2019-07-06 10:43 | XMS REPORT ---
:1975 Author Organization [facility] Care Team Providers Name Role Phone Unavailable [...]
--- OUTSIDE RECORDS SUMMARY | 2019-07-06 10:43 | XMS REPORT ---
:1975 Author Organization [facility] Care Team Providers Name Role Phone Unavailable Unavailable Unavailable Problems Condition Condition Condition Status Onset Resolution Last Treating Comments Name Details Category Date Date Treatment Clinician Date Pain frequent Pain Mgmt Resolve 2017-072018-08-27 Love pain d 08-16 15:00:00 Holland 10:20: [id number] Respiratory smoker Respirator Resolve 2017-072018-07-23 Love y d 08-16 15:00:00 Holland 10:20: [id number] 00 Endo/Jose anti-coagul Endo/Jose Resolve 2017-072018-06-25 Love ation d 08-16 15:00:00 Holland therapy 10:20: [id number] 00 Nutrition nutritional Nutrition Resolve 2017-072018-07-04 Love restriction d 08-16 15:00:00 Holland s 10:20: [id number] Neuro confusion Neuro/Emot Resolve 2017-072018-08-06 Love present ion d 08-16 15:00:00 Holland 10:20: [id number] 00 Neuro anxiety Neuro/Emot Resolve 2017-072018-08-06 Love present ion d 08-16 15:00:00 Holland 10:20: [id number] 00 Neuro depressive Neuro/Emot Resolve 2017-072018-08-06 Love feelings ion d 08-16 15:00:00 Carly present 10:20: [id number] Safety risk for Safety Resolve 2017-072018-07-04 Love hospitaliza d 08-16 15:00:00 Holland tion 10:20: [id number] Safety fall risk Safety Resolve 2017-072018-07-04 Ericka factor d 08-16 15:00:00 Vivian present 10:20: 00 Musculoskel requires Musculoske Resolve 2017-072018-07-04 Love etal human letal d 08-16 15:00:00 Carly assist to 10:20: [id number] leave home 00 Cardio hypertensio Cardiovasc Resolve [...] resource Social 2-10 [place] deficit Services 14:00: [id number] 00 Social knowledge/s BRISEYDA: Resolve 2017-072018-09-22 Ke[facility] Services kill Social d 2-10 13:00:00 [place] deficit - Services 14:00: [id number] pt 00 Social knowledge/s BRISEYDA: Resolve 2017-072018-09-22 [facility] Services kill Social d 2-10 13:00:00 [place] deficit - Services 14:00: [id number] cg 00 Musculoskel requires Musculoske Resolve 2017-072018-07-16 Shelby etal human letal d 2-19 15:00:00 Vallely assist to 15:30: leave home 00 Diagnoses knowledge/s Diagnoses Active 2017-07 Kezia kill 2-24 [place] deficit: cg 13:00: [id number] 00 Integument skin Integument Resolve 2017-072018-08-06 Shelby [...] Active Kezia hospitaliza 2-18 [place] tion 14:00: [id number] Safety can be left Safety Unknown Kezia alone for 2-18 [place] only short 14:00: [id number] periods 00 Pain frequent Pain Mgmt Resolve 2018-2018-09-24 Lam pain d 2-27 15:00:00 Briones 15:50: [id number] 00 Safety can be left Safety Resolve 2018-10-08 Kezia alone for d 3-04 15:00:00 [place] only short 13:00: [id number] periods 00 Cardio edema Cardiovasc Resolve 2018-10-08 Shelby ular d 3-13 15:00:00 Vallely 15:00: 00 Social knowledge/s BRISEYDA: Resolve 2018-10-10 [place] [facility] kill Social d 3-13 16:00:00 Vallely [...] ion d 4-08 13:00:00 Briones present 15:45: [id number] Respiratory lung sounds Respirator Resolve 2018-10-29 Shelby deficit y d 4-10 13:00:00 Vallely 13:00: 00 Infection s/s of Infection Resolve 2019-02-04 Shelby infection d 4-17 12:30:00 Vallely 13:00: 00 Respiratory smoker Respirator Resolve 2018-11-05 Shelby y d 4-17 13:00:00 Vallely 13:00: 00 Neuro depressive Neuro/Emot Resolve 2018-12-10 Lam feelings ion d 4-20 12:30:00 Briones present 12:20: [id number] 00 Respiratory smoker Respirator Resolve 2018-11-20 Shelby [...] 08 13:30:00 [place] deficit - Services 13:30: [id number] pt 00 Respiratory lung sounds Respirator Resolve [...] soni n d 12-18 12:30:00 Narendra 12:30: [id number] 00 Respiratory lung sounds Respirator Resolve 2018-12-24 [...] home 00 Respiratory oxygen Respirator Resolve 2019-01-21 Shelby treatments y d 6 12:30:00 Vallely in [...] restriction d 01-16 12:30:00 [place] s 15:00: [id number] Safety can be left Safety Resolve 2019-02-18 Kezia alone for d 01-16 12:10:00 [place] only short 15:00: [id number] periods 00 Respiratory smoker Respirator Resolve 2019-01-21 [...] 13:00: 00 Respiratory oxygen Respirator Unknown 2018- hSelby ruby y 7-10 Vallely in home 13:00: [...] Social 01-30 [place] deficit - Services 14:00: [id number] Respiratory lung sounds Respirator Resolve 2019-02-04 [...] Respirator Resolve 2019-02-11 Shelby treatments y d 7- 12:30:00 Vallely in home 12:30: 00 Respiratory smoker Respirator Resolve 2019-02-11 Shelby y d 7 12:30:00 Vallely 12:30: 00 Respiratory lung sounds Respirator Resolve 2019-02-18 Shelby deficit y d 7- 12:10:00 Vallely 12:10: 00 Respiratory dyspnea Respirator Resolve 2019-02-18 Shelby present y d 7 12:10:00 Vallely 12:10: 00 Respiratory oxygen Respirator Resolve 2019-02-18 Shelby treatments y d 7 12:10:00 Vallely in home 12:10: 00 Neuro depressive Neuro/Emot Unknown Kezia feelings ion 02-18 [place] present 14:30: [id number] Respiratory lung sounds Respirator Resolve 2019-03-04 Shelby deficit y d 8-14 12:20:00 Vallely 12:20: 00 Respiratory smoker Respirator Resolve 2019-03-04 Shelby y d 8-14 12:20:00 Vallely 12:20: 00 Respiratory dyspnea Respirator Resolve 2019-03-04 Shelby present y d 814 12:20:00 Vallely 12:20: 00 Respiratory oxygen Respirator Resolve 2019-03-04 Shelby treatments y d 814 12:20:00 Vallely in home 12:20: 00 Respiratory smoker Respirator Resolve 2019-03-11 Shelby y d 8 12:30:00 Vallely 12:30: 00 Respiratory dyspnea Respirator Resolve 2019-03-11 Shelby present y d 8 12:30:00 Vallely 12:30: 00 Respiratory oxygen Respirator Resolve 2019-03-11 Shelby treatments y d 8 12:30:00 Vallely in home 12:30: 00 Endo/Jose knowledge/s Endo/Jose Resolve 2019-03-25 Shelby kill d 03-11 12:30:00 Vallely deficit: pt 12:30: 00 Elimination constipatio Eliminatio Active Shelby n n 03-11 Vallely 12:30: 00 Safety can be left Safety Resolve 2019-04-29 Kezia alone for d 03-12 12:30:00 [place] only short 15:30: [id number] periods 00 Respiratory smoker Respirator Resolve 2019-03-12 Shelby y [...] d 0-14 12:45:00 [place] only short 15:00: [id number] periods 00 Musculoskel requires Musculoske Resolve 2018-072019-05-06 [...] home 00 Respiratory oxygen Respirator Resolve 2018-072019-05-20 Shelby treatments y d 0-30 11:15:00 Vallely in [...] Respirator Resolve 2018-072019-06-17 Shelby treatments y d 1-27 12:00:00 Vallely in home 12:00: 00 Respiratory smoker Respirator Resolve 2018-072019-06-17 Shelby y d 1-27 12:00:00 Vallely 12:00: 00 Musculoskel requires Musculoske Resolve 2018-072019-06-24 Shelby etal human letal d 1-27 11:55:00 Vallely assist to 12:00: leave home 00 Respiratory oxygen Respirator Resolve 2018-072019-06-24 Shelby treatments y d 2-04 11:55:00 Vallely in home 11:55: 00 Respiratory smoker Respirator Resolve 2018-072019-06-24 Shelby y d 2-04 11:55:00 Vallely 11:55: 00 Allergies, Adverse Reactions, Alerts Allergy Allergy Status Severity Reaction(s) Onset Inactive Treating Comments Name Type Date Date Clinician phenergan Unknown Active Unknown Reaction Ernestine Unknown 3-23 (Robert) [place] [id number] effexor Unknown Active Unknown Reaction Ernestine Unknown 3-23 (Robert) [place] [id number] compazine Unknown Active Unknown Reaction Ernestine Unknown 3-23 (Robert) [place] [id number] adhesive Unknown Active Unknown Reaction Ernestine tape Unknown 3-23 (Robert) [place] [id number] milk Unknown Active Unknown Reaction Ernestine Unknown 3-23 (Robert) [place] [id number] prochlorper Base Active Unknown extrapyramidal 2017-07 [place] azine Ingredient symptoms 08-09 Dilip venlafaxine Base Active Severe Hives, 2017-07 [place] Ingredient difficulty 08-09 Dilip breathing, itching promethazin Base Active Unknown extrapyramidal 2017-07 [place] e Ingredient symptoms 08-09 Dilip Gadolinium- Allergen Active Severe Anaphylaxis Shelby [...] Unknown Dose 81 mg Dose 81 mg MD,Radomir tablet,suzan tablet,suzan yed release yed release gabapentin gabapentin No Stevanovic 100 mg Unknown 100 mg 100 mg MD,Radomir capsule capsule gabapentin gabapentin No Stevanovic 300 mg Unknown 100 mg 100 mg MD,Radomir capsule capsule mirtazapine mirtazapine No Stevanovic 45 mg Unknown 45 mg 45 mg MD,Radomir tablet tablet traZODone traZODone 2017-07 Stevanovic Unknown Unknown 100 mg 100 mg 08-16 MD,Radomir tablet tablet cetirizine cetirizine No Stevanovic 10 mg Unknown 10 mg 10 mg MD,Radomir capsule capsule potassium potassium No Stevanovic 20 meq Unknown chloride ER chloride ER ,Radomir 20 mEq 20 mEq tablet,exte tablet,exte nded nded release(par release(par t/cryst) t/cryst) Xarelto 20 Xarelto 20 2017-07- No Stevanovic Unknown Unknown mg tablet mg tablet 08-16 ,Radomir SUMAtriptan SUMAtriptan No Stevanovic 50 mg Unknown 50 mg 50 mg ,Radomir tablet tablet zolpidem 10 zolpidem 10 No Stevanovic 10 mg Unknown mg tablet mg tablet ,Radomir dexAMETHaso dexAMETHaso No Stevanovic 8 mg Unknown ne 4 mg ne 4 mg MD,Radomir tablet tablet oxyMORphone oxyMORphone No Stevanovic 20 mg Unknown ER 20 mg ER 20 mg ,Radomir tablet,exte tablet,exte nded nded release,12 release,12 hr hr oxygen oxygen No Stevanovic 2 Unknown ,Radomir liters ondansetron ondansetron 2017-07 No Liz Unknown Unknown HCl 4 mg HCl 4 mg 08-16 Jill CARRENO tablet tablet oxyCODONE oxyCODONE No Stevanovic 10mg Unknown 10 mg 10 mg ,Radomir tablet tablet escitalopra escitalopra No Stevanovic 20mg Unknown m 20 mg m 20 mg ,Radomir tablet tablet Rexulti 2 Rexulti 2 2017-07 No Liz Unknown Unknown mg tablet mg tablet 08-16 Jill CARRENO Imodium A-D Imodium A-D No Stevanovic 2mg Unknown 2 mg tablet 2 mg tablet Marleni CARRENO dexAMETHaso dexAMETHaso 2017-07- Liz Unknown Unknown ne 6 mg ne [...] Liz Unknown Unknown mg capsule mg capsule 08-16- Jill CARRENO DULoxetine DULoxetine 2017-07- No Liz Unknown Unknown 30 mg 30 mg 08-1618 ,Jill capsule,del capsule,del ayed ayed release release anastrozole [...] Unknown Unknown M10 mEq M10 mEq 09-02 Jill CARRENO tablet,exte tablet,exte nded nded release release albuterol albuterol 2017-07- No Liz Unknown Unknown sulfate HFA sulfate HFA 09-16 Jill CARRENO 90 90 mcg/actuati mcg/actuati on aerosol on aerosol inhaler inhaler albuterol albuterol 2017-07 No Liz Unknown Unknown sulfate HFA sulfate HFA 09-16 MD,Jill 90 90 mcg/actuati mcg/actuati on aerosol on [...] Unknown e 40 mg e 40 mg 4-10 Jill CARRENO tablet,suzan tablet,suzan yed release yed release cetirizine cetirizine No Liz Unknown Unknown 10 mg 10 mg 4-10 Jill CARRENO tablet tablet ondansetron ondansetron No Liz Unknown Unknown 4 mg 4 mg 4-10 Jill CARRENO disintegrat disintegrat ing tablet ing tablet amoxicillin amoxicillin 2018- No Liz Unknown Unknown [id number] 10-31 Jill CARRENO mg-potassiu mg-potassiu m m clavulanate clavulanate 125 mg 125 mg tablet tablet oxyCODONE oxyCODONE 2018- No Liz Unknown Unknown 10 mg 10 mg 11-19- ,Jill tablet tablet nyquil nyquil No Liz Unknown Unknown 11-20 ,Jill vinorelbine vinorelbine 2018- No Liz Unknown [...] No Liz Unknown Unknown [id number] 12-09 Jill CARRENO mg-potassiu mg-potassiu m m clavulanate clavulanate 125 mg 125 mg tablet tablet Imodium A-D Imodium A-D No Liz Unknown Unknown 2 mg tablet 2 mg tablet 12-24 ,Jill fentaNYL fentaNYL No Liz Unknown Unknown 100 mcg/hr 100 mcg/hr 12-31 ,Jill transdermal transdermal patch patch Soma 250 mg Soma 250 mg 2018- No Liz Unknown Unknown tablet tablet 01-01 ,Jill Symbicort Symbicort No Liz Unknown Unknown 160 mcg-4.5 160 mcg-4.5 01-01 Jill CARRENO mcg/actuati mcg/actuati on HFA on HFA aerosol aerosol inhaler inhaler glyBURIDE glyBURIDE 2018- No Liz Unknown Unknown 2.5 mg 2.5 mg 01-01 ,Jill tablet tablet predniSONE predniSONE 2018- No Liz Unknown Unknown 20 mg 20 mg 01-01- ,Jill tablet tablet Zithromax Zithromax 2018- No Liz Unknown Unknown 250 mg 250 mg 01-01 MD,Jill tablet tablet oxygen oxygen 2018- No Liz Unknown Unknown 01-01 MD,Jill flurazepam flurazepam 2018- No Liz Unknown Unknown 30 mg 30 mg 01-01 MD,Jill capsule capsule oxygen oxygen No Liz Unknown Unknown 01-06 MD,Jill glyBURIDE glyBURIDE 2018- No Liz Unknown Unknown 2.5 mg 2.5 mg 01-06 MD,Jill tablet tablet glyBURIDE glyBURIDE 2018- No Liz Unknown Unknown 2.5 mg 2.5 mg 01-13 MD,Jill tablet tablet oxyCODONE oxyCODONE No Liz Unknown Unknown 10 mg 10 mg 01-27 MD,Jill tablet tablet Colace 100 Colace 100 No Liz Unknown Unknown mg capsule mg capsule 01-21 MD,Jill Soma 250 mg Soma 250 mg No Liz Unknown Unknown tablet tablet 01-21 MD,Jill Miralax 17 Miralax 17 No Liz Unknown Unknown gram oral gram oral 01-21 ,Jill powder powder packet packet Aloxi 0.25 Aloxi 0.25 No Liz Unknown Unknown mg/5 mL mg/5 mL 02-05 ,Jill intravenous intravenous solution solution gabapentin gabapentin 2018- No Liz Unknown Unknown 300 mg 300 mg 02-24 ,Jill capsule capsule metoclopram metoclopram No Liz Unknown Unknown fahad 10 mg fahad 10 mg 02-24 MD,Jill tablet tablet Xarelto 20 Xarelto 20 2017-07 No Liz Unknown Unknown mg tablet mg tablet 08-16 ,Jill traZODone traZODone 2017-07- No Liz Unknown Unknown 100 mg 100 mg 08-16 MD,Jill tablet tablet gabapentin gabapentin 2018- Yes Liz Unknown Unknown 300 mg 300 mg 03-31 MD,Jill capsule capsule DULoxetine DULoxetine Yes Lzi Unknown Unknown 30 mg 30 mg 04-08 MD,Jill capsule,del capsule,del ayed ayed release release flurazepam flurazepam Yes Liz Unknown Unknown 15 mg 15 mg -18 MD,Jill capsule capsule gabapentin gabapentin 2018- Yes Liz Unknown Unknown 300 mg 300 mg 04-08- MD,Jill capsule capsule gabapentin gabapentin 2018- Yes Liz Unknown Unknown 300 mg 300 mg 04-08- MD,Jill capsule capsule traZODone traZODone Yes Liz Unknown Unknown 100 mg 100 mg 9- MD,Jill tablet tablet Augmentin Augmentin 2018-07- Yes Liz Unknown Unknown 875 mg-125 875 mg-125 0-04 10-11 MD,Jill mg tablet mg tablet Kadcyla 100 Kadcyla 100 2018-07 Yes Liz Unknown Unknown mg mg 0-03 ,Jill intravenous intravenous solution solution sulfacetami sulfacetami 2018-07 Yes Liz Unknown Unknown de sodium de sodium 1-15 MD,Jill 10 % eye 10 % eye drops drops gabapentin gabapentin 2018-07 Yes Liz Unknown Unknown 600 mg 600 mg 1-15 MD,Jill tablet tablet dronabinol dronabinol 2018-07 Yes Liz Unknown Unknown 5 mg 5 mg 1-20 MD,Jill capsule capsule Vital Signs Vital Name Observation Time Observation Value Comments SYSTOLIC mm[Hg] 2019-04-08 18:07:54 118 mm[Hg] mm[Hg] Method: Stand SYSTOLIC mm[Hg] 2019-06-24 18:09:11 128 mm[Hg] mm[Hg] Method: Lie DIASTOLIC mm[Hg] 2019-04-08 18:07:54 80 mm[Hg] mm[Hg] Method: Stand DIASTOLIC mm[Hg] 2019-06-24 18:09:11 70 mm[Hg] mm[Hg] Method: Lie PULSE 2019-06-24 18:09:11 88 /min /min RESP RATE 2019-06-24 18:09:11 16 /min /min TEMP 2019-06-24 18:09:11 96.8 [degF] Procedures This patient has no known procedures. Results This patient has no known results.
--- OUTSIDE RECORDS SUMMARY | 2019-07-06 10:44 | XMS REPORT | Continuity of Care Document ---
:1975 External Reference #:[id number] Author Name Vic Collado MD (transmitted by agent of provider Lucille Gatica) Address [address] [facility], [place] [address] Care Team Providers Name Role Phone Julian Livingston DO - Interventional Care Team Information Cds Sales Advisor Pain Medicine Terrance Rose MD - Orthopaedic Care Team Information Cds Sales Advisor [phone] Surgery Marleni Richardson MD - Internal Care Team Information Cds Sales Advisor Medicine Problems Active Problems Provider Date Panic [...] Palpitations Priscilla Fay M.D. Onset: 05/07/2012 Dyspnea Priscilla Fay M.D. Onset: 05/07/2012 Asthma Maine Herman [...] quit off and on Smoking Status Reviewed: 06/25/19 Patient is a current Began smoking at [...] Provider Colace 2 tab in am and Kristancapmarkie Prieto 08/25/2018 100mg Capsules 2 tab in pm Sharifa French Spiriva Respimat inhale two puffs 12units Maine Herman, 12/17/2017 by mouth every MD 1.25mcg/Act Aerosol day ( Not using) Cyclobenzaprine HCL Patricia Cordero, 5mg RUBBER MOLD MAKER Tablets Glyburide Patricia Cordero, 2.5mg Tablets RUBBER MOLD MAKER Carisoprodol 1 tablet po qid Unknown 250mg Fluconazole one by mouth Unknown 200mg Tablets daily x14 days ( started taking 06/23/18) SM Naproxen Sodium 1 tablet po Patricia Cordero, 220mg twice daily RUBBER MOLD MAKER Tablets Fentanyl apply 1 patch Unknown 100mcg/HR [...] Available Vital Signs Date Vital Result Comment 06/25/2019 10:31am Height 65 inches 5'5" Weight 240.00 lb Heart Rate 112 /min BP Systolic 140 mmHg BP Diastolic 78 mmHg Respiratory Rate 18 /min Body Temperature 98.4 F Pain Level 6 BMI (Body Mass Index) 39.9 kg/m2 01/19/2019 1:42pm Height 65 inches 5'5" Weight 270.00 lb BP Systolic 126 mmHg BP Diastolic 74 mmHg Respiratory Rate 16 /min Pain Level 5 BMI (Body Mass Index) 44.9 kg/m2 Results Description No Information Available Procedures Date Code Description Status 01/19/2019 65689 Inject/Drain Joint/Bursa Intermediate W/O US Completed 07/18/2016 [id number] Mammogram Completed 07/24/2011 [id number] Colonoscopy Completed Medical Devices Description No Information Available Encounters Type Date Location Provider Dx Diagnosis Office Visit 01/19/2019 [facility] Yazmin Capps, G56.22 Lesion of ulnar 1:30p at [place] Sharifa nerve, left upper limb Office Visit 12/31/2018 [facility] Ashley Dick, R06.02 Shortness of 9:04a Assoc,pc breath Hospitalists R09.02 Hypoxemia R73.9 Hyperglycemia, unspecified Assessments Date Code Description Provider 06/25/2019 G56.21 Lesion of ulnar nerve, right upper limb Vic Collado MD 01/19/2019 G56.22 Lesion of ulnar nerve, left upper limb Yazmin Capps M.D. 12/31/2018 R06.02 Shortness of breath Ashley Dick, 12/31/2018 R09.02 Hypoxemia Ashley Dick, DO 12/31/2018 R73.9 Hyperglycemia, unspecified Ashley Dick, Plan of Treatment 06/25/2019 - Vic Collado MDG56.21 Lesion of ulnar nerve, right upper limbNew Orders:EMG w/Nerve Conduct Study, Upper, Ordered: 06/25/19Follow up:Follow up: with [facility] after EMG Functional Status Description No Information Available Mental Status Description No Information Available Referrals Description No Information Available
--- OUTSIDE RECORDS SUMMARY | 2019-07-06 10:44 | XMS REPORT ---
:1975 Author Organization [facility] Care Team Providers Name Role Phone Unavailable Unavailable Unavailable Problems Condition Condition Condition Status Onset Resolution Last Treating Comments Name Details Category Date Date Treatment Clinician Date Pain frequent Pain Mgmt Resolve 2017-072018-08-27 Love pain d 08-16 15:00:00 Council 10:20: [id number] Respiratory smoker Respirator Resolve 2017-072018-07-23 Love y d 08-16 15:00:00 Council 10:20: [id number] Endo/Jose anti-coagul Endo/Jose Resolve 2017-072018-06-25 Love ation d 08-16 15:00:00 Council therapy 10:20: [id number] 00 Nutrition nutritional Nutrition Resolve 2017-072018-07-04 Love restriction d 08-16 15:00:00 Council s 10:20: [id number] Neuro confusion Neuro/Emot Resolve 2017-072018-08-06 Love present ion d 08-16 15:00:00 Council 10:20: [id number] 00 Neuro anxiety Neuro/Emot Resolve 2017-072018-08-06 Love present ion d 08-16 15:00:00 Council 10:20: [id number] 00 Neuro depressive Neuro/Emot Resolve 2017-072018-08-06 Love feelings ion d 08-16 15:00:00 Carly present 10:20: [id number] 00 Safety risk for Safety Resolve 2017-072018-07-04 Love hospitaliza d 08-16 15:00:00 Council tion 10:20: [id number] 00 Safety fall risk Safety Resolve 2017-072018-07-04 Ericka factor d 08-16 15:00:00 Vivian present 10:20: 00 Musculoskel requires Musculoske Resolve 2017-072018-07-04 Love etal human letal d 08-16 15:00:00 Carly assist to 10:20: [id number] leave home 00 Cardio hypertensio Cardiovasc Resolve [...] resource Social 2-10 [place] deficit Services 14:00: [id number] 00 Social knowledge/s BRISEYDA: Resolve 2017-072018-09-22 [facility] kill Social d 2-10 13:00:00 [place] deficit - Services 14:00: [id number] pt 00 Social knowledge/s BRISEYDA: Resolve 2017-072018-09-22 [facility] kill Social d 2-10 13:00:00 [place] deficit - Services 14:00: [id number] cg 00 Musculoskel requires Musculoske Resolve 2017-072018-07-16 Shelby etal human letal d 2-19 15:00:00 [place] assist to 15:30: leave home 00 Diagnoses knowledge/s Diagnoses Active 2017-07 Kezia kill 2-24 [place] deficit: cg 13:00: [id number] 00 Integument skin Integument Resolve 2017-072018-08-06 Shelby [...] Active Kezia hospitaliza 2-18 [place] tion 14:00: [id number] 00 Safety can be left Safety Unknown Kezia alone for 2-18 [place] only short 14:00: [id number] periods 00 Pain frequent Pain Mgmt Resolve 2018-2018-09-24 Lam pain d 2-27 15:00:00 Briones 15:50: [id number] 00 Safety can be left Safety Resolve 2018-10-08 Kezia alone for d 3-04 15:00:00 [place] only short 13:00: [id number] periods 00 Cardio edema Cardiovasc Resolve 2018-10-08 [...] ion d 4-08 13:00:00 Briones present 15:45: [id number] 00 Respiratory lung sounds Respirator Resolve 2018-10-29 Shelby deficit y d 4-10 13:00:00 [place] 13:00: 00 Infection s/s of Infection Resolve 2019-02-04 Shelby infection d 4-17 12:30:00 [place] 13:00: 00 Respiratory smoker Respirator Resolve 2018-11-05 Shelby y d 4-17 13:00:00 [place] 13:00: 00 Neuro depressive Neuro/Emot Resolve 2018-12-10 Lam feelings ion d 4-20 12:30:00 Briones present 12:20: [id number] 00 Respiratory smoker Respirator Resolve 2018-11-20 Shelby [...] only short 12:30: periods 00 Social knowledge/s BRISEYAD: Resolve 2018-11-26 [facility] kill Social d 08 13:30:00 [place] deficit - Services 13:30: [id number] pt 00 Respiratory lung sounds Respirator Resolve [...] soni n d 12-18 12:30:00 Narendra 12:30: [id number] 00 Respiratory lung sounds Respirator Resolve 2018-12-24 [...] restriction d 01-16 12:30:00 [place] s 15:00: [id number] 00 Safety can be left Safety Resolve 2019-02-18 Kezia alone for d 01-16 12:10:00 [place] only short 15:00: [id number] periods 00 Respiratory smoker Respirator Resolve 2019-01-21 [...] Social 01-30 [place] deficit - Services 14:00: [id number] 00 Respiratory lung sounds Respirator Resolve 2019-02-04 [...] Kezia feelings ion 02-18 [place] present 14:30: [id number] 00 Respiratory lung sounds Respirator Resolve 2019-03-04 [...] d 03-12 12:30:00 [place] only short 15:30: [id number] periods 00 Respiratory smoker Respirator Resolve 2019-03-12 [...] d 0-14 12:45:00 [place] only short 15:00: [id number] periods 00 Musculoskel requires Musculoske Resolve 2018-072019-05-06 [...] 00 Respiratory oxygen Respirator Resolve 2018-072019-05-27 Shelby ruby y d 1-06 12:25:00 Vallely in home [...] Respirator Resolve 2018-072019-06-17 Shelby treatments y d 127 12:00:00 [place]le[place] in home 12:00: 00 Respiratory smoker Respirator Resolve 2018-072019-06-17 Shelby y d 127 12:00:00 [place]lely 12:00: 00 Musculoskel requires Musculoske Active 2018-07 Shelby etal human letal 08-17 Vallely assist to 12:00: leave home 00 Allergies, Adverse Reactions, Alerts Allergy Allergy Status Severity Reaction(s) Onset Inactive Treating Comments Name Type Date Date Clinician phenergan Unknown Active Unknown Reaction Ernestine Unknown 3-23 (Robert) [place] [id number] effexor Unknown Active Unknown Reaction Ernestine Unknown 3-23 (Robert) [place] [id number] compazine Unknown Active Unknown Reaction Ernestine Unknown 3-23 (Robert) [place] [id number] adhesive Unknown Active Unknown Reaction Ernestine tape Unknown 3- (Robert) [place] [id number] milk Unknown Active Unknown Reaction Ernestine Unknown 3-23 (Robert) [place] [id number] prochlorper Base Active Unknown extrapyramidal 2017-07 Manning azine Ingredient symptoms 08-09 Dilip venlafaxine Base Active Severe Hives, 2017-07 Manning Ingredient difficulty 08-09 Dilip breathing, itching promethazin Base Active Unknown extrapyramidal 2017-07 Manning e Ingredient symptoms 08-09 Dilip Gadolinium- Allergen [...] mg MD,Radomir tablet tablet traZODone traZODone 2017-07- No Stevanovic Unknown Unknown 100 mg 100 mg 08-16 MD,Radomir tablet tablet cetirizine cetirizine No Stevanovic 10 mg Unknown 10 mg 10 mg MD,Radomir capsule capsule potassium potassium No Stevanovic 20 meq Unknown chloride ER chloride ER MD,Radomir 20 mEq 20 mEq tablet,exte tablet,exte nded nded release(par release(par t/cryst) t/cryst) Xarelto 20 Xarelto 20 2017-07- No Stevanovic Unknown Unknown mg tablet mg tablet 08-16 MD,Radomir SUMAtriptan SUMAtriptan No Stevanovic 50 mg Unknown 50 mg 50 mg MD,Radomir tablet tablet zolpidem 10 zolpidem 10 No Stevanovic 10 mg Unknown mg tablet mg tablet ,Radomir dexAMETHaso dexAMETHaso No Stevanovic 8 mg Unknown ne 4 mg ne 4 mg ,Radomir tablet tablet oxyMORphone oxyMORphone No Stevanovic 20 mg Unknown ER 20 mg ER 20 mg ,Radomir tablet,exte tablet,exte nded nded release,12 release,12 hr hr oxygen oxygen No Stevanovic 2 Unknown MD,Radomir liters ondansetron ondansetron 2017-07 No Liz Unknown Unknown HCl 4 mg HCl 4 mg 08-16 ,Jill tablet tablet oxyCODONE oxyCODONE No Stevanovic 10mg Unknown 10 mg 10 mg ,Radomir tablet tablet escitalopra escitalopra No Stevanovic 20mg Unknown m 20 mg m 20 mg ,Radomir tablet tablet Rexulti 2 Rexulti 2 2017-07 No Liz Unknown Unknown mg tablet mg tablet 08-16 Jill CARRENO Imodium A-D Imodium A-D No Stevanovic 2mg Unknown 2 mg tablet 2 mg tablet ,Marleni dexAMETHaso dexAMETHaso 2017-07- No Liz Unknown Unknown ne 6 mg ne [...] Unknown Unknown 1,000 unit 1,000 unit 08-16 Jill CARRENO (25 mcg) (25 mcg) tablet [...] Unknown Unknown 30 mg 30 mg 08-1618 Jill CARRENO capsule,del capsule,del ayed ayed release [...] 2018- No Liz Unknown Unknown tablet tablet 08-06- ,Jill Nyamyc Nyamyc No Liz Unknown Unknown 100,000 [...] 2018- No Liz Unknown Unknown mcg/hr mcg/hr 10-01- Jill CARRENO transdermal transdermal patch patch methocarbam methocarbam 2018- No Liz Unknown Unknown ol 750 mg ol 750 mg 4- 04-10 Jill CARRENO tablet tablet pantoprazol pantoprazol [...] 2018- No Liz Unknown Unknown 875 875 10-31- Jill CARRENO mg-potassiu mg-potassiu m m clavulanate clavulanate 125 mg 125 mg tablet tablet oxyCODONE oxyCODONE 2018- No Liz Unknown Unknown 10 mg 10 mg 11-19- Jill CARRENO tablet tablet nyquil nyquil No Liz Unknown Unknown - Jill CARRENO vinorelbine vinorelbine 2018- No Liz Unknown Unknown 11-25- Jill CARRENO metroNIDAZO metroNIDAZO 2018- No Liz Unknown Unknown [...] Unknown Unknown 2.5 mg 2.5 mg 01-01 Jill CARRENO tablet tablet predniSONE predniSONE 2018- No Liz [...] fahad 10 mg fahad 10 mg 02-24 ,Jill tablet tablet Xarelto 20 Xarelto 20 2017-07 No Liz Unknown Unknown mg tablet mg tablet 08-16 ,Jill traZODone traZODone 2017-07- No Liz Unknown Unknown 100 mg 100 mg 08-16 ,Jill tablet tablet gabapentin gabapentin 2018- Yes Liz [...] Unknown Unknown 100 mg 100 mg 9- Jill CARRENO tablet tablet Augmentin Augmentin 2018-07- Yes Liz Unknown Unknown 875 mg-125 875 mg-125 0-04 10-11 Jill CARRENO mg tablet mg tablet Kadcyla 100 Kadcyla 100 2018-07 Yes Liz Unknown Unknown mg mg 0-03 Jill CARRENO intravenous intravenous solution solution sulfacetami sulfacetami 2018-07 Yes Liz Unknown Unknown de sodium de sodium 1-15 Jill CARRENO 10 % eye 10 % eye drops drops gabapentin gabapentin 2018-07 Yes Liz Unknown Unknown 600 mg 600 mg 1-15 Jill CARRENO tablet tablet dronabinol dronabinol 2018-07 Yes Liz Unknown Unknown 5 mg 5 mg 1-20 ,Jill capsule capsule Vital Signs Vital Name Observation Time Observation Value Comments SYSTOLIC mm[Hg] 2019-06-17 18:09:04 104 mm[Hg] mm[Hg] Method: Sit SYSTOLIC mm[Hg] 2019-04-08 18:07:54 118 mm[Hg] mm[Hg] Method: Stand SYSTOLIC mm[Hg] 2019-06-03 18:08:50 130 mm[Hg] mm[Hg] Method: Lie DIASTOLIC mm[Hg] 2019-06-17 18:09:04 62 mm[Hg] mm[Hg] Method: Sit DIASTOLIC mm[Hg] 2019-04-08 18:07:54 80 mm[Hg] mm[Hg] Method: Stand DIASTOLIC mm[Hg] 2019-06-03 18:08:50 78 mm[Hg] mm[Hg] Method: Lie PULSE 2019-06-17 18:09:04 90 /min /min RESP RATE 2019-06-17 18:09:04 16 /min /min TEMP 2019-06-17 18:09:04 97.2 [degF] Procedures This patient has no known procedures. Results This patient has no known results.
--- OUTSIDE RECORDS SUMMARY | 2019-07-06 10:44 | XMS REPORT ---
:1975 Author Organization [facility] Care Team Providers Name Role Phone Unavailable Unavailable Unavailable Problems Condition Condition Condition Status Onset Resolution Last Treating Comments Name Details Category Date Date Treatment Clinician Date Pain frequent Pain Mgmt Resolve 2017-072018-08-27 Love pain d 08-16 15:00:00 [place] 10:20: [id number] Respiratory smoker Respirator Resolve 2017-072018-07-23 Love y d 08-16 15:00:00 [place] 10:20: [id number] 00 Endo/Jose anti-coagul Endo/Jose Resolve 2017-072018-06-25 Love ation d 08-16 15:00:00 [place] therapy 10:20: [id number] Nutrition nutritional Nutrition Resolve 2017-072018-07-04 Love restriction d 08-16 15:00:00 [place] s 10:20: [id number] Neuro confusion Neuro/Emot Resolve 2017-072018-08-06 Love present ion d 08-16 15:00:00 [place] 10:20: [id number] 00 Neuro anxiety Neuro/Emot Resolve 2017-072018-08-06 Love present ion d 08-16 15:00:00 [place] 10:20: [id number] 00 Neuro depressive Neuro/Emot Resolve 2017-072018-08-06 Love feelings ion d 08-16 15:00:00 Carly present 10:20: [id number] Safety risk for Safety Resolve 2017-072018-07-04 Love hospitaliza d 08-16 15:00:00 [place] tion 10:20: [id number] 00 Safety fall risk Safety Resolve 2017-072018-07-04 Ericka factor d 08-16 15:00:00 Vivian present 10:20: 00 Musculoskel requires Musculoske Resolve 2017-072018-07-04 Love etal human letal d 08-16 15:00:00 [place] assist to 10:20: [id number] leave home 00 Cardio hypertensio Cardiovasc Resolve [...] 00 Elimination nausea/vomi Eliminatio Resolve 2017-072018-07-04 Shelby soin n d 08-20 15:00:00 [place]le[place] 13:00: 00 Integument skin Integument Resolve 2017-072018-07-04 Shelby integrity d 205 15:00:00 Vallely risk 15:00: 00 Social financial BRISEYDA: Active 2017-07 [facility] resource Social 2-10 [place] deficit Services 14:00: [id number] 00 Social knowledge/s BRISEYDA: Resolve 2017-072018-09-22 [facility] kill Social d 2-10 13:00:00 [place] deficit - Services 14:00: [id number] pt 00 Social knowledge/s BRISEYDA: Resolve 2017-072018-09-22 [facility] kill Social d 2-10 13:00:00 [place] deficit - Services 14:00: [id number] cg 00 Musculoskel requires Musculoske Resolve 2017-072018-07-16 Shelby etal human letal d 2-19 15:00:00 Vallely assist to 15:30: leave home 00 Diagnoses knowledge/s Diagnoses Active 2017-07 Kezia kill 2-24 [place] deficit: cg 13:00: [id number] 00 Integument skin Integument Resolve 2017-072018-08-06 Shelby [...] Active Kezia hospitaliza 2-18 [place] tion 14:00: [id number] 00 Safety can be left Safety Unknown Kezia alone for 2-18 [place] only short 14:00: [id number] periods 00 Pain frequent Pain Mgmt Resolve 2018-2018-09-24 Lam pain d 2-27 15:00:00 Briones 15:50: [id number] 00 Safety can be left Safety Resolve 2018-10-08 Kezia alone for d 3-04 15:00:00 [place] only short 13:00: [id number] periods 00 Cardio edema Cardiovasc Resolve 2018-10-08 [...] ion d 4-08 13:00:00 Briones present 15:45: [id number] 00 Respiratory lung sounds Respirator Resolve 2018-10-29 Shelby deficit y d 4-10 13:00:00 Vallely 13:00: 00 Infection s/s of Infection Resolve 2019-02-04 Shelby infection d 4-17 12:30:00 Vallely 13:00: 00 Respiratory smoker Respirator Resolve 2018-11-05 Shelby y d 4-17 13:00:00 Vallely 13:00: 00 Neuro depressive Neuro/Emot Resolve 2018-12-10 Lam feelings ion d 4-20 12:30:00 Briones present 12:20: [id number] 00 Respiratory smoker Respirator Resolve 2018-11-20 Shelby [...] 08 13:30:00 [place] deficit - Services 13:30: [id number] pt 00 Respiratory lung sounds Respirator Resolve [...] soni n d 12-18 12:30:00 Narendra 12:30: [id number] Respiratory lung sounds Respirator Resolve 2018-12-24 [...] restriction d 01-16 12:30:00 [place] s 15:00: [id number] 00 Safety can be left Safety Resolve 2019-02-18 Kezia alone for d 01-16 12:10:00 [place] only short 15:00: [id number] periods 00 Respiratory smoker Respirator Resolve 2019-01-21 [...] Social 01-30 [place] deficit - Services 14:00: [id number] 00 Respiratory lung sounds Respirator Resolve 2019-02-04 [...] Kezia feelings ion 02-18 [place] present 14:30: [id number] 00 Respiratory lung sounds Respirator Resolve 2019-03-04 [...] d 03-12 12:30:00 [place] only short 15:30: [id number] periods 00 Respiratory smoker Respirator Resolve 2019-03-12 [...] d 0-14 12:45:00 [place] only short 15:00: [id number] periods 00 Musculoskel requires Musculoske Resolve 2018-072019-05-06 [...] home 12:00: 00 Safety fall risk Safety Active 2018-07 Shelby factor 1-20 Vallely present 12:00: 00 Musculoskel requires Musculoske Resolve 2018-072019-06-10 Shelby etal human letal d 1-20 12:00:00 Vallely assist to 12:00: leave home 00 Allergies, Adverse Reactions, Alerts Allergy Allergy Status Severity Reaction(s) Onset Inactive Treating Comments Name Type Date Date Clinician phenergan Unknown Active Unknown Reaction Ernestine Unknown 3-23 (Robert) [place] [id number] effexor Unknown Active Unknown Reaction Ernestine Unknown 3-23 (Robert) [place] [id number] compazine Unknown Active Unknown Reaction Ernestine Unknown 3-23 (Robert) [place] [id number] adhesive Unknown Active Unknown Reaction Ernestine tape Unknown 3-23 (Robert) [place] [id number] milk Unknown Active Unknown Reaction Ernestine Unknown 3-23 (Robert) [place] [id number] prochlorper Base Active Unknown extrapyramidal 2017-07 [place] azine Ingredient symptoms - Dilip venlafaxine Base Active Severe Hives, 2017-07 [place] Ingredient difficulty 08-09 Dilip breathing, itching promethazin Base Active Unknown extrapyramidal 2017-07 Christianne e Ingredient symptoms 08-09 Dilip Gadolinium- Allergen [...] Unknown Unknown 100 mg 100 mg 08-16 ,Radomir tablet tablet cetirizine cetirizine No Stevanovic 10 mg Unknown 10 mg 10 mg MD,Radomir capsule capsule potassium potassium No Stevanovic 20 meq Unknown chloride ER chloride ER ,Radomir 20 mEq 20 mEq tablet,exte tablet,exte nded nded release(par release(par t/cryst) t/cryst) Xarelto 20 Xarelto 20 2017-07 No Stevanovic Unknown Unknown mg tablet mg tablet 08-16 MDRadomir SUMAtriptan SUMAtriptan No Stevanovic 50 mg Unknown [...] Unknown m 20 mg m 20 mg MD,Radomir tablet tablet Rexulti 2 Rexulti 2 2017-07 No Liz Unknown Unknown mg tablet mg tablet 08-16 Jill CARRENO Imodium A-D Imodium A-D No Stevanovic 2mg Unknown 2 mg tablet 2 mg tablet MD,Radomir dexAMETHaso dexAMETHaso 2017-07- No Liz Unknown Unknown [...] 30 mg 30 mg 08-16 Jill CARRENO capsule,del capsule,del ayed ayed release [...] n 750 mg n 750 mg 08-05 ,Jill tablet tablet Triple Triple No Schwed Unknown Unknown Antibiotic- Antibiotic- 09-16 Darren CARRENO Pain Relief Pain Relief 3.5 mg-500 3.5 mg-500 unit-10,000 unit-10,000 unit/gram unit/gram ointmnt ointmnt fentaNYL 25 fentaNYL 25 2018- No Liz Unknown Unknown mcg/hr mcg/hr 10-01- ,Jill transdermal transdermal patch patch methocarbam methocarbam 2018- No Liz Unknown Unknown ol 750 mg ol 750 mg 10-23- ,Jill tablet tablet pantoprazol pantoprazol No Liz Unknown Unknown e 40 mg e 40 mg 4-10 ,Jill tablet,suzan tablet,suzan yed release yed release cetirizine cetirizine No Liz Unknown Unknown 10 mg 10 mg 4-10 Jill CARRENO tablet tablet ondansetron ondansetron No Liz Unknown Unknown 4 mg 4 mg 4-10 Jill CARRENO disintegrat disintegrat ing tablet ing tablet amoxicillin amoxicillin 2018- No Liz Unknown Unknown 875 875 10-31 ,Jill thrasher-potassiu mg-potassiu m m clavulanate clavulanate 125 mg 125 mg tablet tablet oxyCODONE oxyCODONE 2018- No Liz Unknown Unknown 10 mg 10 mg 11-19- Jill CARRENO tablet tablet nyquil nyquil No Liz Unknown Unknown 11-20 ,Jill vinorelbine vinorelbine 2018- No Liz Unknown Unknown 11-25- ,Jill metroNIDAZO metroNIDAZO 2018- No Liz Unknown [...] 2 mg tablet 2 mg tablet 12-24 MD,Jill fentaNYL fentaNYL No Liz Unknown Unknown 100 mcg/hr 100 mcg/hr 12-31 MD,Jill transdermal transdermal patch patch Soma 250 mg Soma 250 mg 2018- No Liz Unknown Unknown tablet tablet 01-01 MD,Jill Symbicort Symbicort No Liz Unknown Unknown 160 mcg-4.5 160 mcg-4.5 01-01 MD,Jill mcg/actuati mcg/actuati on HFA on HFA aerosol aerosol inhaler inhaler glyBURIDE glyBURIDE 2018- No Liz Unknown Unknown 2.5 mg 2.5 mg 01-01 MD,Jill tablet tablet predniSONE predniSONE 2018- No Liz Unknown Unknown 20 mg 20 mg 01-01 MD,Jill tablet tablet Zithromax Zithromax 2018- No Liz Unknown Unknown 250 mg 250 mg 01-0116 MD,Jill tablet tablet oxygen oxygen 2018- No [...] Unknown Unknown gram oral gram oral 01-21 MD,Jill powder powder packet packet Aloxi 0.25 Aloxi 0.25 No Liz Unknown Unknown mg/5 mL mg/5 mL 02-05 MD,Jill intravenous intravenous solution solution gabapentin gabapentin 2018- No Liz Unknown Unknown 300 mg 300 mg 02-24- MD,Jill capsule capsule metoclopram metoclopram No Liz Unknown Unknown fahad 10 mg fahad 10 mg 02-24 MD,Jill tablet tablet Xarelto 20 Xarelto 20 2017-07 No Liz Unknown Unknown mg tablet mg tablet 08-16 MD,Jill traZODone traZODone 2017-07- No Liz Unknown Unknown [...] Liz Unknown Unknown 875 mg-125 875 mg-125 004 10- MD,Jill mg tablet mg tablet Kadcyla 100 Kadcyla 100 2018-07 Yes Liz Unknown Unknown mg mg 0 ,Jill intravenous intravenous solution solution sulfacetami sulfacetami 2018-07 Yes Liz Unknown Unknown de sodium de sodium 08-05 Jill CARRENO 10 % eye 10 % eye drops drops gabapentin gabapentin 2018-07 Yes Liz Unknown Unknown 600 mg 600 mg 1-15 Jill CARRENO tablet tablet Vital Signs Vital Name Observation [...]
--- OUTSIDE RECORDS SUMMARY | 2019-07-06 10:44 | XMS REPORT ---
:1975 Author Organization [facility] Care Team Providers Name Role Phone Unavailable Unavailable Unavailable Problems Condition Condition Condition Status Onset Resolution Last Treating Comments Name Details Category Date Date Treatment Clinician Date Pain frequent Pain Mgmt Resolve 2017-072018-08-27 Love pain d 08-16 15:00:00 [place] 10:20: [id number] 00 Respiratory smoker Respirator Resolve 2017-072018-07-23 Love y d 08-16 15:00:00 [place] 10:20: [id number] 00 Endo/Jose anti-coagul Endo/Jose Resolve 2017-072018-06-25 Love ation d 08-16 15:00:00 [place] therapy 10:20: [id number] 00 Nutrition nutritional Nutrition Resolve 2017-072018-07-04 Love restriction d 08-16 15:00:00 [place] s 10:20: [id number] 00 Neuro confusion Neuro/Emot Resolve 2017-072018-08-06 Love present ion d 08-16 15:00:00 [place] 10:20: [id number] 00 Neuro anxiety Neuro/Emot Resolve 2017-072018-08-06 Love present ion d 08-16 15:00:00 [place] 10:20: [id number] 00 Neuro depressive Neuro/Emot Resolve 2017-072018-08-06 Love feelings ion d 08-16 15:00:00 Carly present 10:20: [id number] 00 Safety risk for Safety Resolve 2017-072018-07-04 Love hospitaliza d 08-16 15:00:00 [place] tion 10:20: [id number] 00 Safety fall risk Safety Resolve 2017-072018-07-04 Ericka factor d 08-16 15:00:00 Vivian present 10:20: 00 Musculoskel requires Musculoske Resolve 2017-072018-07-04 Love etal human letal d 08-16 15:00:00 Carly assist to 10:20: [id number] leave home 00 Cardio hypertensio Cardiovasc Resolve [...] resource Social 2-10 [place] deficit Services 14:00: [id number] 00 Social knowledge/s BRISEYDA: Resolve 2017-072018-09-22 [facility] Services kill Social d 2-10 13:00:00 [place] deficit - Services 14:00: [id number] pt 00 Social knowledge/s BRISEYDA: Resolve 2017-072018-09-22 [facility] Services kill Social d 2-10 13:00:00 [place] deficit - Services 14:00: [id number] cg 00 Musculoskel requires Musculoske Resolve 2017-072018-07-16 Shelby etal human letal d 2-19 15:00:00 [place] assist to 15:30: leave home 00 Diagnoses knowledge/s Diagnoses Active 2017-07 Kezia kill 2-24 [place] deficit: cg 13:00: [id number] 00 Integument skin Integument Resolve 2017-072018-08-06 [place] [...] Active Kezia hospitaliza 2-18 [place] tion 14:00: [id number] 00 Safety can be left Safety Unknown Kezia alone for 2-18 [place] only short 14:00: [id number] periods 00 Pain frequent Pain Mgmt Resolve 2018-2018-09-24 Lam pain d 2-27 15:00:00 [place] 15:50: [id number] 00 Safety can be left Safety Resolve 2018-10-08 Kezia alone for d 3-04 15:00:00 [place] only short 13:00: [id number] periods 00 Cardio edema Cardiovasc Resolve 2018-10-08 [...] ion d 4-08 13:00:00 Briones present 15:45: [id number] 00 Respiratory lung sounds Respirator Resolve 2018-10-29 Shelby deficit y d 4-10 13:00:00 [place] 13:00: 00 Infection s/s of Infection Resolve 2019-02-04 Shelby infection d 4-17 12:30:00 [place] 13:00: 00 Respiratory smoker Respirator Resolve 2018-11-05 Shelby y d 4-17 13:00:00 [place] 13:00: 00 Neuro depressive Neuro/Emot Resolve 2018-12-10 Lam feelings ion d 4-20 12:30:00 Briones present 12:20: [id number] 00 Respiratory smoker Respirator Resolve 2018-11-20 [place] [...] 08 13:30:00 [place] deficit - Services 13:30: [id number] pt 00 Respiratory lung sounds Respirator Resolve [...] soni n d 12-18 12:30:00 Narendra 12:30: [id number] 00 Respiratory lung sounds Respirator Resolve 2018-12-24 [...] 11:30: 00 Medication inhalant Meds Resolve 2019-01-07 [place] med d 6-14 12:30:00 [place] assistance 11:30: [...] restriction d 01-16 12:30:00 [place] s 15:00: [id number] 00 Safety can be left Safety Resolve 2019-02-18 Kezia alone for d 01-16 12:10:00 [place] only short 15:00: [id number] periods 00 Respiratory smoker Respirator Resolve 2019-01-21 [...] Social 01-30 [place] deficit - Services 14:00: [id number] 00 Respiratory lung sounds Respirator Resolve 2019-02-04 Shelby deficit y d 7-17 12:30:00 [place] 12:30: 00 Respiratory oxygen Respirator Resolve 2019-02-04 Shelby treatments y d 7- 12:30:00 Vallely in home 12:30: 00 Respiratory smoker Respirator Resolve 2019-02-04 [place] y d 7 12:30:00 [place] 12:30: 00 [...] Kezia feelings ion 02-18 [place] present 14:30: [id number] 00 Respiratory lung sounds Respirator Resolve 2019-03-04 [...] d 03-12 12:30:00 [place] only short 15:30: [id number] periods 00 Respiratory smoker Respirator Resolve 2019-03-12 [...] d 0-14 12:45:00 [place] only short 15:00: [id number] periods 00 Musculoskel requires Musculoske Resolve 2018-072019-05-06 [...] Unknown Reaction Ernestine Unknown 3-23 ([place]) [place] [id number] effexor Unknown Active Unknown Reaction Ernestine Unknown 3-23 ([place] [id number] compazine Unknown Active Unknown Reaction Ernestine Unknown 3-23 ([place] [id number] adhesive Unknown Active Unknown Reaction Ernestine tape Unknown 3-23 ([place]) [place] [id number] milk Unknown Active Unknown Reaction Ernestine Unknown 3-23 ([place] [id number] prochlorper Base Active Unknown extrapyramidal 2017-07 [place] azine Ingredient symptoms 08-09 Dilip venlafaxine Base Active Severe Hives, 2017-07 [place] Ingredient difficulty 08-09 Dilip breathing, itching promethazin Base Active Unknown extrapyramidal 2017-07 [place] e Ingredient symptoms 08-09 Dilip Gadolinium- Allergen [...]
--- OUTSIDE RECORDS SUMMARY | 2019-07-06 10:44 | XMS REPORT ---
:1975 Author Organization [facility] Care Team Providers Name Role Phone Unavailable Unavailable Unavailable Problems Condition Condition Condition Status Onset Resolution Last Treating Comments Name Details Category Date Date Treatment Clinician Date Pain frequent Pain Mgmt Resolve 2017-072018-08-27 Love pain d 08-16 15:00:00 [place] 10:20: [id number] 00 Respiratory smoker Respirator Resolve 2017-072018-07-23 Love y d 08-16 15:00:00 [place] 10:20: [id number] 00 Endo/Jose anti-coagul Endo/Jose Resolve 2017-072018-06-25 Love ation d 08-16 15:00:00 [place] therapy 10:20: [id number] 00 Nutrition nutritional Nutrition Resolve 2017-072018-07-04 Love restriction d 08-16 15:00:00 [place] s 10:20: [id number] 00 Neuro confusion Neuro/Emot Resolve 2017-072018-08-06 Love present ion d 08-16 15:00:00 [place] 10:20: [id number] 00 Neuro anxiety Neuro/Emot Resolve 2017-072018-08-06 Love present ion d 08-16 15:00:00 [place] 10:20: [id number] 00 Neuro depressive Neuro/Emot Resolve 2017-072018-08-06 Love feelings ion d 08-16 15:00:00 Carly present 10:20: [id number] 00 Safety risk for Safety Resolve 2017-072018-07-04 Love hospitaliza d 08-16 15:00:00 [place] tion 10:20: [id number] 00 Safety fall risk Safety Resolve 2017-072018-07-04 Ericka factor d 08-16 15:00:00 Vivian present 10:20: 00 Musculoskel requires Musculoske Resolve 2017-072018-07-04 Love etal human letal d 08-16 15:00:00 [place] assist to 10:20: [id number] leave home 00 Cardio hypertensio Cardiovasc Resolve [...] resource Social 2-10 [place] deficit Services 14:00: [id number] 00 Social knowledge/s BRISEYDA: Resolve 2017-072018-09-22 [facility] Services kill Social d 2-10 13:00:00 [place] deficit - Services 14:00: [id number] pt 00 Social knowledge/s BRISEYDA: Resolve 2017-072018-09-22 [facility] Services kill Social d 2-10 13:00:00 [place] deficit - Services 14:00: [id number] cg 00 Musculoskel requires Musculoske Resolve 2017-072018-07-16 [place] etal human letal d 2-19 15:00:00 [place] assist to 15:30: leave home 00 Diagnoses knowledge/s Diagnoses Active 2017-07 Kezia kill 2-24 [place] deficit: cg 13:00: [id number] 00 Integument skin Integument Resolve 2017-072018-08-06 [place] [...] Active Kezia hospitaliza 2-18 [place] tion 14:00: [id number] 00 Safety can be left Safety Unknown Kezia alone for 2-18 [place] only short 14:00: [id number] periods 00 Pain frequent Pain Mgmt Resolve 2018-2018-09-24 Lam pain d 2-27 15:00:00 [place] 15:50: [id number] 00 Safety can be left Safety Resolve 2018-10-08 Kezia alone for d 3-04 15:00:00 [place] only short 13:00: [id number] periods 00 Cardio edema Cardiovasc Resolve 2018-10-08 [...] ion d 4-08 13:00:00 Briones present 15:45: [id number] 00 Respiratory lung sounds Respirator Resolve 2018-10-29 [place] deficit y d 4-10 13:00:00 [place] 13:00: 00 Infection s/s of Infection Resolve 2019-02-04 [place] infection d 4-17 12:30:00 [place] 13:00: 00 Respiratory smoker Respirator Resolve 2018-11-05 Shelby y d 4-17 13:00:00 [place] 13:00: 00 Neuro depressive Neuro/Emot Resolve 2018-12-10 Lam feelings ion d 4-20 12:30:00 Br[place] present 12:20: [id number] 00 Respiratory smoker Respirator Resolve 2018-11-20 [place] [...] 08 13:30:00 [place] deficit - Services 13:30: [id number] pt 00 Respiratory lung sounds Respirator Resolve [...] soni n d 12-18 12:30:00 Narendra 12:30: [id number] 00 Respiratory lung sounds Respirator Resolve 2018-12-24 [...] 6-14 12:30:00 [place] 11:30: 00 Endo/Jose newly Endo/Ojse Resolve 2019-02-11 Shelby diagnosed d 6-14 12:30:00 [...] restriction d 01-16 12:30:00 [place] s 15:00: [id number] 00 Safety can be left Safety Resolve 2019-02-18 Kezia alone for d 01-16 12:10:00 [place] only short 15:00: [id number] periods 00 Respiratory smoker Respirator Resolve 2019-01-21 [...] Social 01-30 [place] deficit - Services 14:00: [id number] 00 Respiratory lung sounds Respirator Resolve 2019-02-04 [...] Kezia feelings ion 02-18 [place] present 14:30: [id number] 00 Respiratory lung sounds Respirator Resolve 2019-03-04 [...] d 03-12 12:30:00 [place] only short 15:30: [id number] periods 00 Respiratory smoker Respirator Resolve 2019-03-12 [...] d 0-14 12:45:00 [place] only short 15:00: [id number] periods 00 Musculoskel requires Musculoske Resolve 2018-072019-05-06 [...] Unknown Reaction Ernestine Unknown 3-23 ([place]) [place] [id number] effexor Unknown Active Unknown Reaction Ernestine Unknown 3-23 ([place]) [place] [id number] compazine Unknown Active Unknown Reaction Ernestine Unknown 3-23 ([place] [id number] adhesive Unknown Active Unknown Reaction Ernestine tape Unknown 3-23 ([place]) [place] [id number] milk Unknown Active Unknown Reaction Ernestine Unknown 3-23 ([place]) [place] [id number] prochlorper Base Active Unknown extrapyramidal 2017-07 [place] azine Ingredient symptoms - Dilip venlafaxine Base Active Severe Hives, 2017-07 [place] Ingredient difficulty 08-09 Dilip breathing, itching promethazin [...] Unknown mg tablet mg tablet 08-16 Jill CARERNO Imodium A-D Imodium A-D No Stevanovic 2mg [...] Unknown Depot 11.25 [place] 11.25 08-16 Jill CARERNO mg (3 mg (3 month) month) intramuscul intramuscul ar syringe ar syringe kit kit mirtazapine mirtazapine 2017-07 No Liz Unknown Unknown 30 mg 30 mg 08-16 Jill CARERNO tablet tablet Colace 100 Colace 100 2017-07- [...] Unknown Unknown 5 mg 5 mg 1-20 Jill CARRENO capsule capsule Vital Signs Vital Name Observation [...]
[2019-07-06 10:45] LABS: ABS Basophils 0.1 10^3/ul (0-0.2); ABS Eosinophils 0.8 10^3/ul (0-0.6); ABS Lymphocytes 2.2 10^3/ul (1.0-4.8); ABS Monocytes 0.6 10^3/ul (0-0.8); ABS Neutrophils 6.9 10^3/ul (1.5-7.7); Eosinophil % 7.5 %; Hematocrit 34 % (35-47); Hemoglobin 10.7 g/dL (12.0-16.0); Mean Corpuscular HGB Conc 32 g/dL (31-36); Mean Corpuscular Hemoglobin 26 pg (27-31); Mean Corpuscular Volume 81 fL (80-97); Mean Platelet Volume 7.9 fL (7.4-10.4); Nucleated Red Blood Cells % 0.2; Platelet Count 273 10^3/uL (150-450); Red Blood Count 4.19 10^6 /uL (3.70-4.87); Red Cell Distribution Width 22 % (10-15); White Blood Count 10.7 10^3/uL (3.5-10.8)
--- NOTE | 2019-07-06 10:45 | ED ---
Headache - HPI Summary HPI Summary: This patient is a 43 year old F presenting to [facility] accompanied by aunt with a chief complaint of VÁZQUEZ concentrated on top of head but pain overall with onset that gradually got worse since 07/05/19 at 1013, per triage. Symptoms aggravated by nothing. Symptoms alleviated by nothing. Patient reports hx metastatic breast CA and actively going through chemotherapy (last was 3.5 wks ago after which she was dx PNA on 07/01/19). Pt reports feeling better but pounding VÁZQUEZ prompted visit to [facility]. Hx Migraine but reports that this is not a migraine. 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 Denies tingling, trouble walking or speaking, nausea, chills, erythema of eyes, sore throat, cough, abdominal pain,vomiting , dysuria, hematuria, myalgia, edema, rash, or dizziness. Blood thinners due to blood clot in uterine vein (Zoralto). Received flu shot this year. - History Of Current Complaint Chief Complaint: EDHeadache Stated Complaint: HEADACHE/CANCER HISTORY PER PT Time Seen by Provider: 07/06/19 10:21 Hx Obtained From: Patient Hx Last Menstrual Period: 05/25/16 Onset/Duration: Started days ago, Still Present Timing: Constant Location of Headache: Diffuse Aggravating Factor: Nothing Allevating Factors: Nothing Associated Signs And Symptoms: Fever, Neck Pain, Other (Noted In Comments) - cp , Back soreness , Fatigue, sob, body aches, falls (about a week ago) - Allergies/Home Medications Allergies/Adverse Reactions: Allergies Allergy/AdvReac Type Severity Reaction Status Date / Time Gadolinium-Containing Allergy Severe Anaphylatic Verified 07/06/19 10:18 Contrast Medi Shock venlafaxine Allergy Severe Hives/Diff. Verified 07/06/19 10:18 Breathing/I tching Adhesive Tape Allergy skin break Verified 07/06/19 10:18 [Tegaderm Dressing] down prochlorperazine Allergy See Comment Verified 07/06/19 10:18 promethazine Allergy See Comment Verified 07/06/19 10:18 ANTI NAUSEA Allergy BODY Uncoded 04/01/19 15:42 TWISTS UP VERY HARD PMH/Surg Hx/FS Hx/Imm Hx Endocrine/Hematology History: Reports: Hx Diabetes Denies: Hx Anticoagulant Therapy, Hx Bone Marrow Disease, Hx Sickle Cell Disease, Hx Thyroid Disease, Hx Anemia, Other Endocrine/Hematological Disorders Cardiovascular History: Reports: Hx Congestive Heart Failure, Hx Deep Vein Thrombosis - Recent ovarian vein thrombosis, Hx Hypercholesterolemia, Other Cardiovascular Problems/Disorders - PT STATES DIFFICULTY WITH INJECTION FRACTION -HEART DAMAGE FROM CHEMO Denies: Hx Angina, Hx Cardiomegaly, Hx Coronary Artery Disease, Hx Hypertension, Hx Myocardial Infarction, Hx Pacemaker/ICD, Hx Peripheral Vascular Disease, Hx Rheumatic Fever, Hx Valvular Heart Disease Respiratory History: Reports: Hx Chronic Obstructive Pulmonary Disease (COPD) - STATES EARLY ONSET, Other Respiratory Problems/Disorders - SLEEPS WITH OXYGEN AT NIGHT 2L Denies: Hx Asthma, Hx Lung Cancer, Hx Pulmonary Edema, Hx Pulmonary Embolism , Hx Sleep Apnea GI History: Reports: Other GI Disorders - history of ulcerative colitis Denies: Hx Cirrhosis, Hx Crohn's Disease, Hx Gall Bladder Disease, Hx Gastroesophageal Reflux Disease, Hx Gastrointestinal Bleed, Hx Hiatal Hernia, Hx Irritable Bowel, Hx Jaundice, Hx Ulcer, Hx Urosepsis History: Denies: Hx Dialysis, Hx Kidney Infection, Hx Kidney Stones, Hx Renal Disease , Other Problems/Disorders Musculoskeletal History: Reports: Hx Arthritis, Hx Back Problems Denies: Hx Bursitis, Hx Tendonitis, Other Musculoskeletal History Sensory History: Denies: Hx Cataracts, Hx Contacts or Glasses, Hx Glaucoma, Hx Hearing Aid Opthamlomology History: Denies: Hx Cataracts, Hx Contacts or Glasses, Hx Glaucoma Neurological History: Reports: Hx Migraine, Hx Spinal Cord Injury - herniated disc Denies: Hx Dementia, Hx Headaches, Hx Nerve Disease, Hx Seizures, Hx Transient Ischemic Attacks (TIA), Other Neuro Impairments/Disorders Psychiatric History: Reports: Hx Anxiety, Hx Depression, Hx Post Traumatic Stress Disorder, Hx Suicide Attempt - states she has made three attempts; h/o overdose x 2 Denies: Hx Eating Disorder, Hx Panic Disorder, Hx Substance Abuse - Cancer History Cancer Type, Location and Year: 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 X2. appendix. POWER PORT 2017. cholecystectomy. LEFT FOOT-SURGICALLY REMOVED TOOTHPICK 2000. gamma knife surgery Hx Anesthesia Reactions: No - Immunization History Date of Tetanus Vaccine: UTD Date of Influenza Vaccine: NO Infectious Disease History: No Infectious Disease History: Denies: Hx Hepatitis, Hx Human Immunodeficiency Virus (HIV), Hx of Known/ Suspected MRSA, Traveled Outside the [place] in Last 30 Days - Family History Known Family History: Negative: Cardiac Disease, Hypertension - Social History Alcohol Use: None Hx Substance Use: No Substance Use Type: Reports: None Hx Tobacco Use: Yes Smoking Status (MU): Light Every Day Tobacco Smoker Type: Cigarettes Amount Used/How Often: 1/4 PPD, down from PPD Have You Smoked in the Last Year: Yes Review of Systems Positive: Fever, Fatigue. Negative: Chills Negative: Erythema Negative: Sore Throat Positive: Chest Pain Positive: Shortness Of Breath. Negative: Cough Negative: Abdominal Pain, Vomiting, Nausea Negative: dysuria, hematuria Positive: Other - neck and back soreness, body aches. Negative: Myalgia, Edema Negative: Rash Neurological: Other - falls; denies tingling, troubl walking or speaking, dizziness Positive: Headache All Other Systems Reviewed And Are Negative: Yes Physical Exam - Summary Physical Exam Summary: Constitutional: Well-developed, Well-nourished, Alert. (-) Distressed Skin: Warm, Dry HENT: Normocephalic; Atraumatic Eyes: Conjunctiva normal Neck: pt reports discomfort with neck flexion but rom is intact. (-) JVD, (-) Stridor, (-) Tracheal deviation Cardio: Rhythm regular, rate normal, Heart sounds normal; Intact distal pulses; The pedal pulses are 2+ and symmetric. Radial pulses are 2+ and symmetric. (-) Murmur. Pulmonary/Chest wall: Effort normal. (-) Respiratory distress, wheezes, (-) Rales, port on left interior chest wall Abd: Soft, (-) tenderness, (-) Distension, (-) Guarding, (-) Rebound Musculoskeletal: (-) Edema Lymph: (-) Cervical adenopathy Neuro: Alert, Oriented x3 Psych: Mood and affect Normal Triage Information Reviewed: Yes Vital Signs On Initial Exam: Initial Vitals Temp Pulse Resp BP Pulse Ox 97.2 F 132 20 139/78 85 07/06/19 10:10 07/06/19 10:10 07/06/19 10:10 07/06/19 10:10 07/06/19 10:10 Vital Signs Reviewed: Yes Procedures - Sedation Patient Received Moderate/Deep Sedation with Procedure: No Diagnostics - Vital Signs Vital Signs Temp Pulse Resp BP Pulse Ox 07/06/19 10:10 97.2 F 132 20 139/78 85 - Laboratory Result Diagrams: 07/06/19 10:34 07/06/19 10:34 Lab Statement: Any lab studies that have been ordered have been reviewed, and results considered in the medical decision making process. - Radiology Chest X-Ray Radiology Interpretation Completed By: Radiologist Summary of Radiographic Findings: Per radiologist,. #. No evidence for pneumonia. No evidence for acute intrathoracic disease. ED physician has reviewed this imaging report. - CT Brain CT CT Interpretation Completed By: Radiologist Summary of CT Findings: Per radiologist,. #. No evidence for intracranial hemorrhage or mass effect. #. No CT conspicuous focal intra-axial or extra- axial lesions. ED physician has reviewed this imaging report. Headache Course/Dx - Course Assessment/Plan: This patient is a 43 year old F presenting to [facility] accompanied by aunt with a chief complaint of VÁZQUEZ concentrated on top of head but pain overall with onset that gradually got worse since 07/05/19 at 1013, per triage. Patient reports hx metastatic breast CA and actively going through chemotherapy (last was 3.5 wks ago after which she was dx PNA on 07/01/19). 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 Denies tingling, trouble walking or speaking, nausea, chills, erythema of eyes, sore throat, cough, abdominal pain, vomiting , dysuria, hematuria, myalgia, edema, rash, or dizziness. Physical Exam Findings reveals no abnormalities except for port on left interior chest wall, wheezes , pt reports discomfort with neck flexion but rom is intact. CXR reveals #. No evidence for pneumonia. No evidence for acute intrathoracic disease. Brain CT reveals #. No evidence for intracranial hemorrhage or mass effect. #. No CT conspicuous focal intra-axial or extra- axial lesions. ED physician has reviewed this radiology report and agrees. Test results with no significant abnormalities expect for Hgb 10.7 L, Hct 34 L, MCH 26 L, RDW 22 H, Absolute Eos 0.8 H, INR 1.39 H, APTT 48.3 H, Glucose 140 H, Alkaline Phosphatase 158 H. In the ED course the patient was given Fentanyl 200 mcg. We discussed patient care with Dr. Paredes who accepts pt admission. I do not think it is meningitis though hypoxia leads to possible COPD however fever and cancer history leads me to rule out pulmonary embolism. Patient will be admitted and the patient is agreeable with this plan. - Diagnoses Provider Diagnoses: Hypoxia - Physician Notifications Discussed Care Of Patient With: Alec Paredes Time Discussed With Above Provider: 11:45 Instructed by Provider To: Admit As Inpatient Discharge ED - Sign-Out/Discharge Documenting (check all that apply): Patient Departure - admit - Discharge Plan Disposition: ADMITTED TO [facility] Referrals: Jill Hill MD [Primary Care Provider] - - Attestation Statements Document Initiated by Scribe: Yes Documenting Scribe: Xena Jean Baptiste Provider For Whom Scribe is Documenting (Include Credential): Dr. Parish Chew Scribe Attestation: I, Xena Jean Baptiste, scribed for Dr. Parish Chew on 07/06/19 at 1153. Status of Scribe Document: Ready
--- OUTSIDE RECORDS SUMMARY | 2019-07-06 10:45 | XMS REPORT ---
:1975 Author Organization [facility] Care Team Providers Name Role Phone Unavailable Unavailable Unavailable Problems Condition Condition Condition Status Onset Resolution Last Treating Comments Name Details Category Date Date Treatment Clinician Date Pain frequent Pain Mgmt Resolve 2017-072018-08-27 Love pain d 08-16 15:00:00 [place] 10:20: [id number] 00 Respiratory smoker Respirator Resolve 2017-072018-07-23 Love y d 08-16 15:00:00 [place] 10:20: [id number] 00 Endo/Jose anti-coagul Endo/Jose Resolve 2017-072018-06-25 Love ation d 08-16 15:00:00 [place] therapy 10:20: [id number] 00 Nutrition nutritional Nutrition Resolve 2017-072018-07-04 Love restriction d 08-16 15:00:00 [place] s 10:20: [id number] 00 Neuro confusion Neuro/Emot Resolve 2017-072018-08-06 Love present ion d 08-16 15:00:00 [place] 10:20: [id number] 00 Neuro anxiety Neuro/Emot Resolve 2017-072018-08-06 Love present ion d 08-16 15:00:00 [place] 10:20: [id number] 00 Neuro depressive Neuro/Emot Resolve 2017-072018-08-06 Love feelings ion d 08-16 15:00:00 Carly present 10:20: [id number] 00 Safety risk for Safety Resolve 2017-072018-07-04 Love hospitaliza d 08-16 15:00:00 [place] tion 10:20: [id number] 00 Safety fall risk Safety Resolve 2017-072018-07-04 Ericka factor d 08-16 15:00:00 Vivian present 10:20: 00 Musculoskel requires Musculoske Resolve 2017-072018-07-04 Love etal human letal d 08-16 15:00:00 [place] assist to 10:20: [id number] leave home 00 Cardio hypertensio Cardiovasc Resolve [...] resource Social 2-10 [place] deficit Services 14:00: [id number] 00 Social knowledge/s BRISEYDA: Resolve 2017-072018-09-22 Ke[facility] Services kill Social d 2-10 13:00:00 [place] deficit - Services 14:00: [id number] pt 00 Social knowledge/s BRISEYDA: Resolve 2017-072018-09-22 Ke[facility] Services kill Social d 2-10 13:00:00 [place] deficit - Services 14:00: [id number] cg 00 Musculoskel requires Musculoske Resolve 2017-072018-07-16 [place] etal human letal d 2-19 15:00:00 [place] assist to 15:30: leave home 00 Diagnoses knowledge/s Diagnoses Active 2017-07 Kezia kill 2-24 [place] deficit: cg 13:00: [id number] 00 Integument skin Integument Resolve 2017-072018-08-06 [place] [...] Active Kezia hospitaliza 2-18 [place] tion 14:00: [id number] 00 Safety can be left Safety Unknown Kezia alone for 2-18 [place] only short 14:00: [id number] periods 00 Pain frequent Pain Mgmt Resolve 2018-2018-09-24 Lam pain d 2-27 15:00:00 [place] 15:50: [id number] 00 Safety can be left Safety Resolve 2018-10-08 Kezia alone for d 3-04 15:00:00 [place] only short 13:00: [id number] periods 00 Cardio edema Cardiovasc Resolve 2018-10-08 [...] ion d 4-08 13:00:00 Briones present 15:45: [id number] 00 Respiratory lung sounds Respirator Resolve 2018-10-29 [place] deficit y d 4-10 13:00:00 [place] 13:00: 00 Infection s/s of Infection Resolve 2019-02-04 [place] infection d 4-17 12:30:00 [place] 13:00: 00 Respiratory smoker Respirator Resolve 2018-11-05 Shelby y d 4-17 13:00:00 [place] 13:00: 00 Neuro depressive Neuro/Emot Resolve 2018-12-10 Lam feelings ion d 4-20 12:30:00 Br[place] present 12:20: [id number] 00 Respiratory smoker Respirator Resolve 2018-11-20 [place] [...] 08 13:30:00 [place] deficit - Services 13:30: [id number] pt 00 Respiratory lung sounds Respirator Resolve [...] soni n d 12-18 12:30:00 Narendra 12:30: [id number] 00 Respiratory lung sounds Respirator Resolve 2018-12-24 [...] restriction d 01-16 12:30:00 [place] s 15:00: [id number] 00 Safety can be left Safety Resolve 2019-02-18 Kezia alone for d 01-16 12:10:00 [place] only short 15:00: [id number] periods 00 Respiratory smoker Respirator Resolve 2019-01-21 [...] Social 01-30 [place] deficit - Services 14:00: [id number] 00 Respiratory lung sounds Respirator Resolve 2019-02-04 [...] Kezia feelings ion 02-18 [place] present 14:30: [id number] 00 Respiratory lung sounds Respirator Resolve 2019-03-04 [...] d 03-12 12:30:00 [place] only short 15:30: [id number] periods 00 Respiratory smoker Respirator Resolve 2019-03-12 [...] d 0-14 12:45:00 [place] only short 15:00: [id number] periods 00 Musculoskel requires Musculoske Resolve 2018-072019-05-06 [...] Unknown Reaction Ernestine Unknown 3-23 ([place]) [place] [id number] effexor Unknown Active Unknown Reaction Ernestine Unknown 3-23 ([place]) [place] [id number] compazine Unknown Active Unknown Reaction Ernestine Unknown 3-23 ([place]) [place] [id number] adhesive Unknown Active Unknown Reaction Ernestine tape Unknown 3-23 ([place]) [place] [id number] milk Unknown Active Unknown Reaction Ernestine Unknown 3-23 ([place]) [place] [id number] prochlorper Base Active Unknown extrapyramidal 2017-07 [place] azine Ingredient symptoms - Dilip venlafaxine Base Active Severe Hives, 2017-07 [place] Ingredient difficulty 08-09 Dilip breathing, itching promethazin [...] Liz Unknown Unknown 600 mg 600 mg -15 Jill CARRENO tablet tablet Vital Signs Vital Name Observation Time Observation Value Comments SYSTOLIC mm[Hg] 2019-04-08 18:07:54 118 mm[Hg] mm[Hg] Method: Stand SYSTOLIC mm[Hg] 2019-06-03 18:08:50 130 mm[Hg] mm[Hg] Method: Lie DIASTOLIC mm[Hg] 2019-04-08 18:07:54 80 mm[Hg] mm[Hg] Method: Stand DIASTOLIC mm[Hg] 2019-06-03 18:08:50 78 mm[Hg] mm[Hg] Method: Lie RESP RATE 2019-06-10 18:08:57 16 /min /min Procedures This patient has no known procedures. Results This patient has no known results.
--- OUTSIDE RECORDS SUMMARY | 2019-07-06 10:45 | XMS REPORT ---
:1975 Author Organization [facility] Care Team Providers Name Role Phone Unavailable Unavailable Unavailable Problems Condition Condition Condition Status Onset Resolution Last Treating Comments Name Details Category Date Date Treatment Clinician Date Pain frequent Pain Mgmt Resolve 2017-072018-08-27 Love pain d 08-16 15:00:00 [place] 10:20: [id number] 00 Respiratory smoker Respirator Resolve 2017-072018-07-23 Love y d 08-16 15:00:00 [place] 10:20: [id number] 00 Endo/Jose anti-coagul Endo/Jose Resolve 2017-072018-06-25 Love ation d 08-16 15:00:00 [place] therapy 10:20: [id number] 00 Nutrition nutritional Nutrition Resolve 2017-072018-07-04 Love restriction d 08-16 15:00:00 Bryan s 10:20: [id number] 00 Neuro confusion Neuro/Emot Resolve 2017-072018-08-06 Love present ion d 08-16 15:00:00 [place] 10:20: [id number] 00 Neuro anxiety Neuro/Emot Resolve 2017-072018-08-06 Love present ion d 08-16 15:00:00 [place] 10:20: [id number] 00 Neuro depressive Neuro/Emot Resolve 2017-072018-08-06 Love feelings ion d 08-16 15:00:00 Carly present 10:20: [id number] 00 Safety risk for Safety Resolve 2017-072018-07-04 Love hospitaliza d 08-16 15:00:00 [place] tion 10:20: [id number] 00 Safety fall risk Safety Resolve 2017-072018-07-04 Ericka factor d 08-16 15:00:00 Vivian present 10:20: 00 Musculoskel requires Musculoske Resolve 2017-072018-07-04 Love etal human letal d 08-16 15:00:00 [place] assist to 10:20: [id number] leave home 00 Cardio hypertensio Cardiovasc Resolve [...] resource Social 2-10 [place] deficit Services 14:00: [id number] 00 Social knowledge/s BRISEYDA: Resolve 2017-072018-09-22 [facility] Services kill Social d 2-10 13:00:00 [place] deficit - Services 14:00: [id number] pt 00 Social knowledge/s BRISEYDA: Resolve 2017-072018-09-22 [facility] Services kill Social d 2-10 13:00:00 [place] deficit - Services 14:00: [id number] cg 00 Musculoskel requires Musculoske Resolve 2017-072018-07-16 [place] etal human letal d 2-19 15:00:00 [place] assist to 15:30: leave home 00 Diagnoses knowledge/s Diagnoses Active 2017-07 Kezia kill 2-24 [place] deficit: cg 13:00: [id number] 00 Integument skin Integument Resolve 2017-072018-08-06 [place] [...] Active Kezia hospitaliza 2-18 [place] tion 14:00: [id number] 00 Safety can be left Safety Unknown Kezia alone for 2-18 [place] only short 14:00: [id number] periods 00 Pain frequent Pain Mgmt Resolve 2018-2018-09-24 Lam pain d 2-27 15:00:00 Br[place] 15:50: [id number] 00 Safety can be left Safety Resolve 2018-10-08 Kezia alone for d 3-04 15:00:00 [place] only short 13:00: [id number] periods 00 Cardio edema Cardiovasc Resolve 2018-10-08 [...] ion d 4-08 13:00:00 Briones present 15:45: [id number] 00 Respiratory lung sounds Respirator Resolve 2018-10-29 [place] deficit y d 4-10 13:00:00 [place] 13:00: 00 Infection s/s of Infection Resolve 2019-02-04 [place] infection d 4-17 12:30:00 [place] 13:00: 00 Respiratory smoker Respirator Resolve 2018-11-05 [place] y d 4-17 13:00:00 [place] 13:00: 00 Neuro depressive Neuro/Emot Resolve 2018-12-10 Lam feelings ion d 4-20 12:30:00 Briones present 12:20: [id number] 00 Respiratory smoker Respirator Resolve 2018-11-20 [place] [...] 08 13:30:00 [place] deficit - Services 13:30: [id number] pt 00 Respiratory lung sounds Respirator Resolve [...] soni n d 12-18 12:30:00 Narendra 12:30: [id number] 00 Respiratory lung sounds Respirator Resolve 2018-12-24 [...] restriction d 01-16 12:30:00 [place] s 15:00: [id number] 00 Safety can be left Safety Resolve 2019-02-18 Kezia alone for d 01-16 12:10:00 [place] only short 15:00: [id number] periods 00 Respiratory smoker Respirator Resolve 2019-01-21 [...] 00 Elimination nausea/vomi Eliminatio Active 2018- [place] snoi n 7-10 [place] 13:00: 00 Neuro anxiety Neuro/Emot Resolve 2019-02-18 [place] ion d 7-10 12:10:00 [place] 13:00: 00 Social knowledge/s BRISEYDA: Active [place] Services kill Social 7 [place] deficit - Services 13:00: pt 00 Social knowledge/s BRISEYDA: Active Kezia Services kill Social 01-30 [place] deficit - Services 14:00: [id number] 00 Respiratory lung sounds Respirator Resolve 2019-02-04 [...] home 00 Respiratory oxygen Respirator Resolve 2019-02-06 [place] treatments y d 7 12:30:00 Vallely in [...] Kezia feelings ion 02-18 [place] present 14:30: [id number] 00 Respiratory lung sounds Respirator Resolve 2019-03-04 [...] d 03-12 12:30:00 [place] only short 15:30: [id number] periods 00 Respiratory smoker Respirator Resolve 2019-03-12 [...] d 0-14 12:45:00 [place] only short 15:00: [id number] periods 00 Musculoskel requires Musculoske Resolve 2018-072019-05-06 [...] Unknown Reaction Ernestine Unknown 3-23 ([place]) [place] [id number] effexor Unknown Active Unknown Reaction Ernestine Unknown 3-23 ([place]) [place] [id number] compazine Unknown Active Unknown Reaction Ernestine Unknown 3-23 ([place]) [place] [id number] adhesive Unknown Active Unknown Reaction Ernestine tape Unknown 3-23 ([place]) [place] [id number] milk Unknown Active Unknown Reaction Ernestine Unknown 3-23 ([place]) [place] [id number] prochlorper Base Active Unknown extrapyramidal 2017-07 [place] azine Ingredient symptoms - Dilip venlafaxine Base Active Severe Hives, 2017-07 [place] Ingredient difficulty 08-09 Dilip breathing, itching promethazin [...] patch oxyCODONE 5 oxyCODONE 5 2017-07- No Lzi Unknown Unknown mg tablet mg tablet 08-16 Jill CARRENO naproxen naproxen 2017-07 No Liz Unknown Unknown sodium 220 sodium 220 08-16 Jlil CARRENO mg tablet mg tablet Vitamin D3 [...] Unknown 11-25- ,Jill metroNIDAZO metroNIDAZO 2018- No Ilz Unknown Unknown LE 500 mg LE 500 [...] Observation Time Observation Value Comments SYSTOLIC mm[Hg] 2019-06-10 18:08:57 138 mm[Hg] mm[Hg] Method: Sit SYSTOLIC mm[Hg] 2019-04-08 18:07:54 118 mm[Hg] mm[Hg] Method: Stand SYSTOLIC mm[Hg] 2019-06-03 18:08:50 130 mm[Hg] mm[Hg] Method: Lie DIASTOLIC mm[Hg] 2019-06-10 18:08:57 70 mm[Hg] mm[Hg] Method: Sit DIASTOLIC mm[Hg] 2019-04-08 18:07:54 80 mm[Hg] mm[Hg] Method: Stand DIASTOLIC mm[Hg] 2019-06-03 18:08:50 78 mm[Hg] mm[Hg] Method: Lie PULSE 2019-06-10 18:08:57 90 /min /min RESP RATE 2019-06-10 18:08:57 16 /min /min TEMP 2019-06-10 18:08:57 96.8 [degF] Procedures This patient has no known procedures. Results This patient has no known results.
--- OUTSIDE RECORDS SUMMARY | 2019-07-06 10:45 | XMS REPORT ---
:1975 Author Organization [facility] Care Team Providers Name Role Phone Unavailable Unavailable Unavailable Problems Condition Condition Condition Status Onset Resolution Last Treating Comments Name Details Category Date Date Treatment Clinician Date Pain frequent Pain Mgmt Resolve 2017-072018-08-27 Love pain d 08-16 15:00:00 [place] 10:20: [id number] 00 Respiratory smoker Respirator Resolve 2017-072018-07-23 Love y d 08-16 15:00:00 [place] 10:20: [id number] 00 Endo/Jose anti-coagul Endo/Jose Resolve 2017-072018-06-25 Love ation d 08-16 15:00:00 [place] therapy 10:20: [id number] 00 Nutrition nutritional Nutrition Resolve 2017-072018-07-04 Love restriction d 08-16 15:00:00 [place] s 10:20: [id number] 00 Neuro confusion Neuro/Emot Resolve 2017-072018-08-06 Love present ion d 08-16 15:00:00 [place] 10:20: [id number] 00 Neuro anxiety Neuro/Emot Resolve 2017-072018-08-06 Love present ion d 08-16 15:00:00 [place] 10:20: [id number] 00 Neuro depressive Neuro/Emot Resolve 2017-072018-08-06 Love feelings ion d 08-16 15:00:00 Carly present 10:20: [id number] Safety risk for Safety Resolve 2017-072018-07-04 Love hospitaliza d 08-16 15:00:00 [place] tion 10:20: [id number] 00 Safety fall risk Safety Resolve 2017-072018-07-04 Ericka factor d 08-16 15:00:00 Vivian present 10:20: 00 Musculoskel requires Musculoske Resolve 2017-072018-07-04 Love etal human letal d 08-16 15:00:00 [place] assist to 10:20: [id number] leave home 00 Cardio hypertensio Cardiovasc Resolve [...] resource Social 2-10 [place] deficit Services 14:00: [id number] 00 Social knowledge/s BRISEYDA: Resolve 2017-072018-09-22 Kezia Services kill Social d 2-10 13:00:00 [place] deficit - Services 14:00: [id number] pt 00 Social knowledge/s BRISEYDA: Resolve 2017-072018-09-22 [place] Services kill Social d 2-10 13:00:00 [place] deficit - Services 14:00: [id number] cg 00 Musculoskel requires Musculoske Resolve 2017-072018-07-16 Shelby etal human letal d 2-19 15:00:00 [place] assist to 15:30: leave home 00 Diagnoses knowledge/s Diagnoses Active 2017-07 Kezia kill 2-24 [place] deficit: cg 13:00: [id number] 00 Integument skin Integument Resolve 2017-072018-08-06 Shelby [...] Active Kezia hospitaliza 2-18 [place] tion 14:00: [id number] 00 Safety can be left Safety Unknown Kezia alone for 2-18 [place] only short 14:00: [id number] periods 00 Pain frequent Pain Mgmt Resolve 2018-2018-09-24 Lam pain d 2-27 15:00:00 [place] 15:50: [id number] 00 Safety can be left Safety Resolve 2018-10-08 Kezia alone for d 3-04 15:00:00 [place] only short 13:00: [id number] periods 00 Cardio edema Cardiovasc Resolve 2018-10-08 [...] ion d 4-08 13:00:00 Briones present 15:45: [id number] 00 Respiratory lung sounds Respirator Resolve 2018-10-29 Shelby deficit y d 4-10 13:00:00 [place] 13:00: 00 Infection s/s of Infection Resolve 2019-02-04 Shelby infection d 4-17 12:30:00 [place] 13:00: 00 Respiratory smoker Respirator Resolve 2018-11-05 Shelby y d 4-17 13:00:00 [place] 13:00: 00 Neuro depressive Neuro/Emot Resolve 2018-12-10 Lam feelings ion d 4-20 12:30:00 Briones present 12:20: [id number] Respiratory smoker Respirator Resolve 2018-11-20 Shelby [...] 08 13:30:00 [place] deficit - Services 13:30: [id number] pt 00 Respiratory lung sounds Respirator Resolve [...] soni n d 12-18 12:30:00 Narendra 12:30: [id number] 00 Respiratory lung sounds Respirator Resolve 2018-12-24 [...] restriction d 01-16 12:30:00 [place] s 15:00: [id number] 00 Safety can be left Safety Resolve 2019-02-18 Kezia alone for d 01-16 12:10:00 [place] only short 15:00: [id number] periods 00 Respiratory smoker Respirator Resolve 2019-01-21 [...] Social 01-30 [place] deficit - Services 14:00: [id number] 00 Respiratory lung sounds Respirator Resolve 2019-02-04 [...] Kezia feelings ion 02-18 [place] present 14:30: [id number] 00 Respiratory lung sounds Respirator Resolve 2019-03-04 [...] d 03-12 12:30:00 [place] only short 15:30: [id number] periods 00 Respiratory smoker Respirator Resolve 2019-03-12 [...] d 0-14 12:45:00 [place] only short 15:00: [id number] periods 00 Musculoskel requires Musculoske Resolve 2018-072019-05-06 [...] Unknown Reaction Ernestine Unknown 3-23 ([place] [id number] effexor Unknown Active Unknown Reaction Ernestine Unknown 3-23 ([place]) [place] [id number] compazine Unknown Active Unknown Reaction Ernestine Unknown 3-23 ([place] [id number] adhesive Unknown Active Unknown Reaction Ernestine tape Unknown 3-23 ([place]) [place] [id number] milk Unknown Active Unknown Reaction Ernestine Unknown 3-23 ([place] [id number] prochlorper Base Active Unknown extrapyramidal 2017-07 [facility] azine Ingredient symptoms - Dilip venlafaxine Base Active Severe Hives, 2017-07 [facility] Ingredient difficulty 08-09 Dilip breathing, itching promethazin [...] Unknown de sodium de sodium 08-05 Jill CARRNEO 10 % eye 10 % eye drops [...]
--- OUTSIDE RECORDS SUMMARY | 2019-07-06 10:45 | XMS REPORT ---
:1975 Author Organization [facility] Care Team Providers Name Role Phone Unavailable Unavailable Unavailable Problems Condition Condition Condition Status Onset Resolution Last Treating Comments Name Details Category Date Date Treatment Clinician Date Pain frequent Pain Mgmt Resolve 2017-072018-08-27 Love pain d 08-16 15:00:00 [place] 10:20: [id number] 00 Respiratory smoker Respirator Resolve 2017-072018-07-23 Love y d 08-16 15:00:00 [place] 10:20: [id number] 00 Endo/Jose anti-coagul Endo/Jose Resolve 2017-072018-06-25 Love ation d 08-16 15:00:00 [place] therapy 10:20: [id number] 00 Nutrition nutritional Nutrition Resolve 2017-072018-07-04 Love restriction d 08-16 15:00:00 [place] s 10:20: [id number] 00 Neuro confusion Neuro/Emot Resolve 2017-072018-08-06 Love present ion d 08-16 15:00:00 [place] 10:20: [id number] 00 Neuro anxiety Neuro/Emot Resolve 2017-072018-08-06 Love present ion d 08-16 15:00:00 [place] 10:20: [id number] 00 Neuro depressive Neuro/Emot Resolve 2017-072018-08-06 Love feelings ion d 08-16 15:00:00 Carly present 10:20: [id number] 00 Safety risk for Safety Resolve 2017-072018-07-04 Love hospitaliza d 08-16 15:00:00 [place] tion 10:20: [id number] 00 Safety fall risk Safety Resolve 2017-072018-07-04 Ericka factor d 08-16 15:00:00 Vivian present 10:20: 00 Musculoskel requires Musculoske Resolve 2017-072018-07-04 Love etal human letal d 08-16 15:00:00 [place] assist to 10:20: [id number] leave home 00 Cardio hypertensio Cardiovasc Resolve [...] resource Social 2-10 [place] deficit Services 14:00: [id number] 00 Social knowledge/s BRISEYDA: Resolve 2017-072018-09-22 Kezia Services kill Social d 2-10 13:00:00 [place] deficit - Services 14:00: [id number] pt 00 Social knowledge/s BRISEYDA: Resolve 2017-072018-09-22 Kezia Services kill Social d 2-10 13:00:00 [place] deficit - Services 14:00: [id number] cg 00 Musculoskel requires Musculoske Resolve 2017-072018-07-16 Shelby etal human letal d 2-19 15:00:00 [place] assist to 15:30: leave home 00 Diagnoses knowledge/s Diagnoses Active 2017-07 Kezia kill 2-24 [place] deficit: cg 13:00: [id number] 00 Integument skin Integument Resolve 2017-072018-08-06 [place] [...] Active Kezia hospitaliza 2-18 [place] tion 14:00: [id number] 00 Safety can be left Safety Unknown Kezia alone for 2-18 [place] only short 14:00: [id number] periods 00 Pain frequent Pain Mgmt Resolve 2018-2018-09-24 Lam pain d 2-27 15:00:00 [place] 15:50: [id number] 00 Safety can be left Safety Resolve 2018-10-08 Keiza alone for d 3-04 15:00:00 [place] only short 13:00: [id number] periods 00 Cardio edema Cardiovasc Resolve 2018-10-08 [...] ion d 4-08 13:00:00 Briones present 15:45: [id number] 00 Respiratory lung sounds Respirator Resolve 2018-10-29 [place] deficit y d 4-10 13:00:00 [place] 13:00: 00 Infection s/s of Infection Resolve 2019-02-04 Shelby infection d 4-17 12:30:00 [place] 13:00: 00 Respiratory smoker Respirator Resolve 2018-11-05 Shelby y d 4-17 13:00:00 [place] 13:00: 00 Neuro depressive Neuro/Emot Resolve 2018-12-10 Lam feelings ion d 4-20 12:30:00 Br[place] present 12:20: [id number] 00 Respiratory smoker Respirator Resolve 2018-11-20 [place] [...] 08 13:30:00 [place] deficit - Services 13:30: [id number] pt 00 Respiratory lung sounds Respirator Resolve [...] soni n d 12-18 12:30:00 Narendra 12:30: [id number] 00 Respiratory lung sounds Respirator Resolve 2018-12-24 [...] restriction d 01-16 12:30:00 [place] s 15:00: [id number] 00 Safety can be left Safety Resolve 2019-02-18 Kezia alone for d 01-16 12:10:00 [place] only short 15:00: [id number] periods 00 Respiratory smoker Respirator Resolve 2019-01-21 [...] Social 01-30 [place] deficit - Services 14:00: [id number] 00 Respiratory lung sounds Respirator Resolve 2019-02-04 [...] Kezia feelings ion 02-18 [place] present 14:30: [id number] 00 Respiratory lung sounds Respirator Resolve 2019-03-04 [...] d 03-12 12:30:00 [place] only short 15:30: [id number] periods 00 Respiratory smoker Respirator Resolve 2019-03-12 [...] d 0-14 12:45:00 [place] only short 15:00: [id number] periods 00 Musculoskel requires Musculoske Resolve 2018-072019-05-06 [...] Unknown Reaction Ernestine Unknown 3-23 ([place]) [place] [id number] effexor Unknown Active Unknown Reaction Ernestine Unknown 3-23 ([place]) [place] [id number] compazine Unknown Active Unknown Reaction Ernestine Unknown 3-23 ([place]) [place] [id number] adhesive Unknown Active Unknown Reaction Ernsetine tape Unknown 3-23 ([place]) [place] [id number] milk Unknown Active Unknown Reaction Ernestine Unknown 3-23 ([place]) [place] [id number] prochlorper Base Active Unknown extrapyramidal 2017-07 [place] azine Ingredient symptoms - Dilip venlafaxine Base Active Severe Hives, 2017-07 [place] Ingredient difficulty 08-09 Dilip breathing, itching promethazin [...]
--- OUTSIDE RECORDS SUMMARY | 2019-07-06 10:45 | XMS REPORT ---
:1975 Author Organization [facility] Care Team Providers Name Role Phone Unavailable Unavailable Unavailable Problems Condition Condition Condition Status Onset Resolution Last Treating Comments Name Details Category Date Date Treatment Clinician Date Pain frequent Pain Mgmt Resolve 2017-072018-08-27 Love pain d 08-16 15:00:00 [place] 10:20: [id number] 00 Respiratory smoker Respirator Resolve 2017-072018-07-23 Love y d 08-16 15:00:00 [place] 10:20: [id number] 00 Endo/Jose anti-coagul Endo/Jose Resolve 2017-072018-06-25 Love ation d 08-16 15:00:00 [place]ott therapy 10:20: [id number] 00 Nutrition nutritional Nutrition Resolve 2017-072018-07-04 Love restriction d 08-16 15:00:00 [place] s 10:20: [id number] 00 Neuro confusion Neuro/Emot Resolve 2017-072018-08-06 Love present ion d 08-16 15:00:00 [place] 10:20: [id number] 00 Neuro anxiety Neuro/Emot Resolve 2017-072018-08-06 Love present ion d 08-16 15:00:00 [place] 10:20: [id number] 00 Neuro depressive Neuro/Emot Resolve 2017-072018-08-06 Love feelings ion d 08-16 15:00:00 Carly present 10:20: [id number] 00 Safety risk for Safety Resolve 2017-072018-07-04 Love hospitaliza d 08-16 15:00:00 [place]ott tion 10:20: [id number] 00 Safety fall risk Safety Resolve 2017-072018-07-04 Ericka factor d 08-16 15:00:00 Vivian present 10:20: 00 Musculoskel requires Musculoske Resolve 2017-072018-07-04 Love etal human letal d 08-16 15:00:00 [place] assist to 10:20: [id number] leave home 00 Cardio hypertensio Cardiovasc Resolve [...] resource Social 2-10 [place] deficit Services 14:00: [id number] 00 Social knowledge/s BRISEYDA: Resolve 2017-072018-09-22 Kezia Services kill Social d 2-10 13:00:00 [place] deficit - Services 14:00: [id number] pt 00 Social knowledge/s BRISEYDA: Resolve 2017-072018-09-22 Kezia Services kill Social d 2-10 13:00:00 [place] deficit - Services 14:00: [id number] cg 00 Musculoskel requires Musculoske Resolve 2017-072018-07-16 Shelby etal human letal d 2-19 15:00:00 [place] assist to 15:30: leave home 00 Diagnoses knowledge/s Diagnoses Active 2017-07 Kezia kill 2-24 [place] deficit: cg 13:00: [id number] 00 Integument skin Integument Resolve 2017-072018-08-06 Shelby [...] Active Kezia hospitaliza 2-18 [place] tion 14:00: [id number] 00 Safety can be left Safety Unknown Kezia alone for 2-18 [place] only short 14:00: [id number] periods 00 Pain frequent Pain Mgmt Resolve 2018-2018-09-24 Lam pain d 2-27 15:00:00 Briones 15:50: [id number] 00 Safety can be left Safety Resolve 2018-10-08 Kezia alone for d 3-04 15:00:00 [place] only short 13:00: [id number] periods 00 Cardio edema Cardiovasc Resolve 2018-10-08 [...] ion d 4-08 13:00:00 Briones present 15:45: [id number] 00 Respiratory lung sounds Respirator Resolve 2018-10-29 Shelby deficit y d 4-10 13:00:00 [place] 13:00: 00 Infection s/s of Infection Resolve 2019-02-04 Shelby infection d 4-17 12:30:00 [place] 13:00: 00 Respiratory smoker Respirator Resolve 2018-11-05 Shelby y d 4-17 13:00:00 [place] 13:00: 00 Neuro depressive Neuro/Emot Resolve 2018-12-10 Lam feelings ion d 4-20 12:30:00 Briones present 12:20: [id number] 00 Respiratory smoker Respirator Resolve 2018-11-20 Shelby [...] 08 13:30:00 [place] deficit - Services 13:30: [id number] pt 00 Respiratory lung sounds Respirator Resolve [...] soni n d 12-18 12:30:00 Narendra 12:30: [id number] 00 Respiratory lung sounds Respirator Resolve 2018-12-24 [...] 12:30: 00 Respiratory oxygen Respirator Resolve 2019-01-08 [place] treatments y d 6-14 15:00:00 Vallely in [...] restriction d 01-16 12:30:00 [place] s 15:00: [id number] 00 Safety can be left Safety Resolve 2019-02-18 Kezia alone for d 01-16 12:10:00 [place] only short 15:00: [id number] periods 00 Respiratory smoker Respirator Resolve 2019-01-21 [...] Social 01-30 [place] deficit - Services 14:00: [id number] Respiratory lung sounds Respirator Resolve 2019-02-04 [...] Kezia feelings ion 02-18 [place] present 14:30: [id number] 00 Respiratory lung sounds Respirator Resolve 2019-03-04 [...] d 03-12 12:30:00 [place] only short 15:30: [id number] periods 00 Respiratory smoker Respirator Resolve 2019-03-12 [...] d 0-14 12:45:00 [place] only short 15:00: [id number] periods 00 Musculoskel requires Musculoske Resolve 2018-072019-05-06 [...] Respirator Resolve 2018-072019-05-27 Shelby treatments y d 07-27 12:25:00 [place] in home 12:25: 00 Respiratory smoker Respirator Resolve 2018-072019-05-27 Shelby y d 07-27 12:25:00 [place] 12:25: 00 Respiratory lung sounds Respirator Resolve 2018-072019-06-03 Shelby deficit y d 08-03 12:45:00 [place] 12:45: 00 Respiratory oxygen Respirator Resolve 2018-072019-06-03 Shelby treatments y d 08-03 12:45:00 [place] in home 12:45: 00 Allergies, Adverse Reactions, Alerts Allergy Allergy Status Severity Reaction(s) Onset Inactive Treating Comments Name Type Date Date Clinician phenergan Unknown Active Unknown Reaction Ernestine Unknown 3-23 (Robert) [place] [id number] effexor Unknown Active Unknown Reaction Ernestine Unknown 3-23 (Robert) [place] [id number] compazine Unknown Active Unknown Reaction Ernestine Unknown 3-23 (Robert) [place] [id number] adhesive Unknown Active Unknown Reaction Ernestine tape Unknown 3-23 (Robert) [place] [id number] milk Unknown Active Unknown Reaction Ernestine Unknown 3-23 (Robert) [place] [id number] prochlorper Base Active Unknown extrapyramidal 2017-07 [place] azine Ingredient symptoms -19 Dilip venlafaxine Base Active Severe Hives, 2017-07 [place] Ingredient difficulty 08-09 Dilip breathing, itching promethazin Base Active Unknown extrapyramidal 2017-07 [place] e Ingredient symptoms -19 Dilip Gadolinium- Allergen Active Severe Anaphylaxis Shelby [...] Unknown Dose 81 mg Dose 81 mg ,Radomir tablet,suzan tablet,suzan yed release yed release gabapentin [...] 10 mg Unknown mg tablet mg tablet MD,Radomir dexAMETHaso dexAMETHaso No Stevanovic 8 mg Unknown [...] tablet 2 mg tablet ,Radomir dexAMETHaso dexAMETHaso 2017-07- No Liz Unknown Unknown ne 6 mg ne 6 mg 08-16 12 Jill CARRENO tablet tablet fentaNYL 75 fentaNYL [...] Liz Unknown Unknown 100 mcg/hr 100 mcg/hr 08-2212 Jill CARRENO transdermal transdermal patch patch AirDuo AirDuo 2017-07- No Liz Unknown Unknown RespiClick RespiClick 08-20 Jill CARRENO 113 mcg-14 113 mcg-14 mcg/actuati mcg/actuati on breath on breath activated activated fluconazole fluconazole 2017-07- No Liz Unknown Unknown 200 mg 200 mg 08-24 1217 Jill CARRENO tablet tablet Bactrim DS Bactrim [...] No Liz Unknown Unknown 100,000 100,000 08-02 Jlil CARRENO unit/gram unit/gram topical topical powder powder [...] e 40 mg e 40 mg 4-10 MD,Jill tablet,suzan tablet,suzan yed release yed release cetirizine cetirizine No Liz Unknown Unknown 10 mg 10 mg 4-10 ,Jill tablet tablet ondansetron ondansetron No Liz Unknown Unknown 4 mg 4 mg 4-10 ,Jill disintegrat disintegrat ing tablet ing tablet amoxicillin amoxicillin 2018- No Liz Unknown Unknown [id number] 10-31-18 ,Jill mg-potassiu mg-potassiu m m clavulanate clavulanate 125 mg 125 mg tablet tablet oxyCODONE oxyCODONE 2018- No Liz Unknown Unknown 10 mg 10 mg 5- ,Jill tablet tablet nyquil nyquil No Liz Unknown Unknown - ,Jill vinorelbine vinorelbine 2018- No Liz Unknown Unknown 11-25- ,Jill metroNIDAZO metroNIDAZO 2018- No Liz Unknown Unknown LE 500 mg LE 500 mg 02-03- ,Jill tablet tablet amoxicillin amoxicillin 2018- No Liz Unknown Unknown [id number] 12-16 ,Jill mg-potassiu mg-potassiu m m clavulanate clavulanate 125 mg 125 mg tablet tablet gabapentin gabapentin 2018- No Liz Unknown Unknown 100 mg 100 mg 12-09 ,Jill capsule capsule metroNIDAZO metroNIDAZO 2018- No Liz Unknown Unknown LE 500 mg LE 500 mg 12-09- ,Jill tablet tablet amoxicillin amoxicillin 2018- No Liz Unknown Unknown [id number] 12-09 ,Jill mg-potassiu mg-potassiu m m clavulanate clavulanate 125 mg 125 mg tablet tablet Imodium A-D Imodium A-D No Liz Unknown Unknown 2 mg tablet 2 mg tablet - ,Jill fentaNYL fentaNYL No Liz Unknown Unknown 100 mcg/hr 100 mcg/hr Jill CARRENO transdermal transdermal patch patch Soma 250 mg Soma 250 mg 2018- No Liz Unknown Unknown tablet tablet 01-01- ,Jill Symbicort Symbicort No Liz Unknown Unknown [...] Unknown Unknown 2.5 mg 2.5 mg 01-06 ,Jill tablet tablet glyBURIDE glyBURIDE 2018- No Liz [...] tablet mg tablet 08-16 ,Jill traZODone traZODone 2017-07 2019- No Liz Unknown Unknown 100 mg 100 [...] Unknown Unknown 100 mg 100 mg 04-15 ,Jill tablet tablet Augmentin Augmentin 2018-07- Yes Liz Unknown Unknown 875 mg-125 875 mg-125 0-04 05-01 MD,Jill mg tablet mg tablet Kadcyla 100 Kadcyla 100 2018-07 Yes Liz Unknown Unknown mg mg 0-03 ,Jill intravenous intravenous solution solution sulfacetami sulfacetami 2018-07 Yes Liz Unknown Unknown de sodium de sodium 08-05 ,Jill 10 % eye 10 % eye drops drops gabapentin gabapentin 2018-07 Yes Liz Unknown Unknown 600 mg 600 mg 08-05 MD,Jill tablet tablet Vital Signs Vital Name [...]
--- OUTSIDE RECORDS SUMMARY | 2019-07-06 10:46 | XMS REPORT ---
:1975 Author Organization [facility] Care Team Providers Name Role Phone Unavailable Unavailable Unavailable Problems Condition Condition Condition Status Onset Resolution Last Treating Comments Name Details Category Date Date Treatment Clinician Date Pain frequent Pain Mgmt Resolve 2017-072018-08-27 Love pain d 08-16 15:00:00 [place] 10:20: [id number] Respiratory smoker Respirator Resolve 2017-072018-07-23 Love y d 08-16 15:00:00 [place] 10:20: [id number] 00 Endo/Jose anti-coagul Endo/Jose Resolve 2017-072018-06-25 Love ation d 08-16 15:00:00 [place] therapy 10:20: [id number] 00 Nutrition nutritional Nutrition Resolve 2017-072018-07-04 Love restriction d 08-16 15:00:00 [place] s 10:20: [id number] 00 Neuro confusion Neuro/Emot Resolve 2017-072018-08-06 Love present ion d 08-16 15:00:00 [place] 10:20: [id number] 00 Neuro anxiety Neuro/Emot Resolve 2017-072018-08-06 Love present ion d 08-16 15:00:00 [place] 10:20: [id number] 00 Neuro depressive Neuro/Emot Resolve 2017-072018-08-06 Love feelings ion d 08-16 15:00:00 Carly present 10:20: [id number] 00 Safety risk for Safety Resolve 2017-072018-07-04 Love hospitaliza d 08-16 15:00:00 [place] tion 10:20: [id number] 00 Safety fall risk Safety Resolve 2017-072018-07-04 Ericka factor d 08-16 15:00:00 Vivian present 10:20: 00 Musculoskel requires Musculoske Resolve 2017-072018-07-04 Love etal human letal d 08-16 15:00:00 [place] assist to 10:20: [id number] leave home 00 Cardio hypertensio Cardiovasc Resolve [...] resource Social 2-10 [place] deficit Services 14:00: [id number] 00 Social knowledge/s BRISEYDA: Resolve 2017-072018-09-22 Kezia Services kill Social d 2-10 13:00:00 [place] deficit - Services 14:00: [id number] pt 00 Social knowledge/s BRISEYDA: Resolve 2017-072018-09-22 Kezia Services kill Social d 2-10 13:00:00 [place] deficit - Services 14:00: [id number] cg 00 Musculoskel requires Musculoske Resolve 2017-072018-07-16 Shelby etal human letal d 2-19 15:00:00 [place] assist to 15:30: leave home 00 Diagnoses knowledge/s Diagnoses Active 2017-07 Kezia kill 2-24 [place] deficit: cg 13:00: [id number] 00 Integument skin Integument Resolve 2017-072018-08-06 Shelby [...] Active Kezia hospitaliza 2-18 [place] tion 14:00: [id number] 00 Safety can be left Safety Unknown Kezia alone for 2-18 [place] only short 14:00: [id number] periods 00 Pain frequent Pain Mgmt Resolve 2018-2018-09-24 Lam pain d 2-27 15:00:00 Briones 15:50: [id number] 00 Safety can be left Safety Resolve 2018-10-08 Keiza alone for d 3-04 15:00:00 [place] only short 13:00: [id number] periods 00 Cardio edema Cardiovasc Resolve 2018-10-08 [...] ion d 4-08 13:00:00 Briones present 15:45: [id number] 00 Respiratory lung sounds Respirator Resolve 2018-10-29 Shelby deficit y d 4-10 13:00:00 [place] 13:00: 00 Infection s/s of Infection Resolve 2019-02-04 Shelby infection d 4-17 12:30:00 [place] 13:00: 00 Respiratory smoker Respirator Resolve 2018-11-05 Shelby y d 4-17 13:00:00 [place] 13:00: 00 Neuro depressive Neuro/Emot Resolve 2018-12-10 Lam feelings ion d 4-20 12:30:00 Briones present 12:20: [id number] 00 Respiratory smoker Respirator Resolve 2018-11-20 Shelby [...] 08 13:30:00 [place] deficit - Services 13:30: [id number] pt 00 Respiratory lung sounds Respirator Resolve [...] soni n d 12-18 12:30:00 Narendra 12:30: [id number] 00 Respiratory lung sounds Respirator Resolve 2018-12-24 [...] restriction d 01-16 12:30:00 [place] s 15:00: [id number] 00 Safety can be left Safety Resolve 2019-02-18 Kezia alone for d 01-16 12:10:00 [place] only short 15:00: [id number] periods 00 Respiratory smoker Respirator Resolve 2019-01-21 [...] Social 01-30 [place] deficit - Services 14:00: [id number] 00 Respiratory lung sounds Respirator Resolve 2019-02-04 [...] Kezia feelings ion 02-18 [place] present 14:30: [id number] 00 Respiratory lung sounds Respirator Resolve 2019-03-04 [...] d 03-12 12:30:00 [place] only short 15:30: [id number] periods 00 Respiratory smoker Respirator Resolve 2019-03-12 Shelby y d 03-12 16:00:00 [place] 16:00: 00 Respiratory oxygen Respirator Unknown Shelby treatments y 03-12 Vallely in home 16:00: 00 Endo/Jose newly Endo/Jose Active [place] diagnosed 03-12 Vallely diabetes 16:00: 00 Nutrition [...] d 0-14 12:45:00 [place] only short 15:00: [id number] periods 00 Musculoskel requires Musculoske Resolve 2018-072019-05-06 [...] Unknown Reaction Ernestine Unknown 3-23 (Robert) [place] [id number] effexor Unknown Active Unknown Reaction Ernestine Unknown 3-23 (Robert) [place] [id number] compazine Unknown Active Unknown Reaction Ernestine Unknown 3-23 (Robert) [place] [id number] adhesive Unknown Active Unknown Reaction Ernestine tape Unknown 3-23 (Robert) [place] [id number] milk Unknown Active Unknown Reaction Ernestine Unknown 3-23 (Robert) [place] [id number] prochlorper Base Active Unknown extrapyramidal 2017-07 [place] azine Ingredient symptoms -19 Dilip venlafaxine Base Active Severe Hives, 2017-07 [place] Ingredient difficulty 08-09 Dilip breathing, itching promethazin Base Active Unknown extrapyramidal 2017-07 [place] e Ingredient symptoms -19 Dilip Gadolinium- Allergen [...] Unknown Unknown gram oral gram oral 01-21 ,Jlil powder powder packet packet Aloxi 0.25 [place]ox[place] [...] tablet mg tablet 08-16 MD,Jill traZODone traZODone 2017-07 2019- No Liz Unknown [...] mg 04-08 MD,Jill capsule capsule gabapentin gabapentin Yes Liz Unknown Unknown 300 mg 300 mg 04-08 MD,Jill capsule capsule traZODone traZODone Yes Liz Unknown Unknown 100 mg 100 mg 04-15 MD,Jill tablet tablet Augmentin Augmentin 2018-07- Yes Liz Unknown Unknown 875 mg-125 875 mg-125 0-04 - MD,Jill mg tablet mg tablet Kadcyla 100 Kadcyla 100 2018-07 Yes Liz Unknown Unknown mg mg 0-03 ,Jill intravenous intravenous solution solution Vital Signs Vital Name Observation Time Observation Value Comments SYSTOLIC mm[Hg] 2019-04-08 18:07:54 118 mm[Hg] mm[Hg] Method: Stand SYSTOLIC mm[Hg] 2019-06-03 18:08:50 130 mm[Hg] mm[Hg] Method: Lie DIASTOLIC mm[Hg] 2019-04-08 18:07:54 80 mm[Hg] mm[Hg] Method: Stand DIASTOLIC mm[Hg] 2019-06-03 18:08:50 78 mm[Hg] mm[Hg] Method: Lie PULSE 2019-06-03 18:08:50 82 /min /min RESP RATE 2019-06-03 18:08:50 16 /min /min TEMP 2019-06-03 18:08:50 96.9 [degF] Procedures This patient has no known procedures. Results This patient has no known results.
--- OUTSIDE RECORDS SUMMARY | 2019-07-06 10:46 | XMS REPORT ---
:1975 Author Organization [facility] Care Team Providers Name Role Phone Unavailable Unavailable Unavailable Problems Condition Condition Condition Status Onset Resolution Last Treating Comments Name Details Category Date Date Treatment Clinician Date Pain frequent Pain Mgmt Resolve 2017-072018-08-27 Love pain d 08-16 15:00:00 [place] 10:20: [id number] 00 Respiratory smoker Respirator Resolve 2017-072018-07-23 Love y d 08-16 15:00:00 [place] 10:20: [id number] 00 Endo/Jose anti-coagul Endo/Jose Resolve 2017-072018-06-25 Love ation d 08-16 15:00:00 [place] therapy 10:20: [id number] 00 Nutrition nutritional Nutrition Resolve 2017-072018-07-04 Love restriction d 08-16 15:00:00 [place] s 10:20: [id number] 00 Neuro confusion Neuro/Emot Resolve 2017-072018-08-06 Love present ion d 08-16 15:00:00 [place] 10:20: [id number] 00 Neuro anxiety Neuro/Emot Resolve 2017-072018-08-06 Love present ion d 08-16 15:00:00 [place] 10:20: [id number] 00 Neuro depressive Neuro/Emot Resolve 2017-072018-08-06 Love feelings ion d 08-16 15:00:00 Carly present 10:20: [id number] 00 Safety risk for Safety Resolve 2017-072018-07-04 Love hospitaliza d 08-16 15:00:00 [place] tion 10:20: [id number] 00 Safety fall risk Safety Resolve 2017-072018-07-04 Ericka factor d 08-16 15:00:00 Vivian present 10:20: 00 Musculoskel requires Musculoske Resolve 2017-072018-07-04 Love etal human letal d 08-16 15:00:00 [place] assist to 10:20: [id number] leave home 00 Cardio hypertensio Cardiovasc Resolve [...] resource Social 2-10 [place] deficit Services 14:00: [id number] 00 Social knowledge/s BRISEYDA: Resolve 2017-072018-09-22 Kezia Services kill Social d 2-10 13:00:00 [place] deficit - Services 14:00: [id number] pt 00 Social knowledge/s BRISEYDA: Resolve 2017-072018-09-22 Kezia Services kill Social d 2-10 13:00:00 [place] deficit - Services 14:00: [id number] cg 00 Musculoskel requires Musculoske Resolve 2017-072018-07-16 Shelby etal human letal d 2-19 15:00:00 [place] assist to 15:30: leave home 00 Diagnoses knowledge/s Diagnoses Active 2017-07 Kezia kill 2-24 [place] deficit: cg 13:00: [id number] 00 Integument skin Integument Resolve 2017-072018-08-06 Shelby [...] Active Kezia hospitaliza 2-18 [place] tion 14:00: [id number] 00 Safety can be left Safety Unknown Kezia alone for 2-18 [place] only short 14:00: [id number] periods 00 Pain frequent Pain Mgmt Resolve 2018-2018-09-24 Lam pain d 2-27 15:00:00 [place] 15:50: [id number] 00 Safety can be left Safety Resolve 2018-10-08 Kezia alone for d 3-04 15:00:00 [place] only short 13:00: [id number] periods 00 Cardio edema Cardiovasc Resolve 2018-10-08 [...] ion d 4-08 13:00:00 Briones present 15:45: [id number] 00 Respiratory lung sounds Respirator Resolve 2018-10-29 [place] deficit y d 4-10 13:00:00 [place] 13:00: 00 Infection s/s of Infection Resolve 2019-02-04 Shelby infection d 4-17 12:30:00 [place] 13:00: 00 Respiratory smoker Respirator Resolve 2018-11-05 Shelby y d 4-17 13:00:00 [place] 13:00: 00 Neuro depressive Neuro/Emot Resolve 2018-12-10 Lam feelings ion d 4-20 12:30:00 Briones present 12:20: [id number] 00 Respiratory smoker Respirator Resolve 2018-11-20 Shelby [...] 08 13:30:00 [place] deficit - Services 13:30: [id number] pt 00 Respiratory lung sounds Respirator Resolve [...] soni n d 12-18 12:30:00 Narendra 12:30: [id number] 00 Respiratory lung sounds Respirator Resolve 2018-12-24 [...] restriction d 01-16 12:30:00 [place] s 15:00: [id number] 00 Safety can be left Safety Resolve 2019-02-18 Kezia alone for d 01-16 12:10:00 [place] only short 15:00: [id number] periods 00 Respiratory smoker Respirator Resolve 2019-01-21 [...] Social 01-30 [place] deficit - Services 14:00: [id number] 00 Respiratory lung sounds Respirator Resolve 2019-02-04 [...] Kezia feelings ion 02-18 [place] present 14:30: [id number] 00 Respiratory lung sounds Respirator Resolve 2019-03-04 [...] d 03-12 12:30:00 [place] only short 15:30: [id number] periods 00 Respiratory smoker Respirator Resolve 2019-03-12 [...] d 0-14 12:45:00 [place] only short 15:00: [id number] periods 00 Musculoskel requires Musculoske Resolve 2018-072019-05-06 [...] Unknown Reaction Ernestine Unknown 3-23 (Robert) [place] [id number] effexor Unknown Active Unknown Reaction Ernestine Unknown 3-23 (Robert) [place] [id number] compazine Unknown Active Unknown Reaction Ernestine Unknown 3-23 (Robert) [place] [id number] adhesive Unknown Active Unknown Reaction Ernestine tape Unknown 3-23 (Robert) [place] [id number] milk Unknown Active Unknown Reaction Ernestine Unknown 3-23 (Robert) [place] [id number] prochlorper Base Active Unknown extrapyramidal 2017-07 [place] azine Ingredient symptoms -19 Dilip venlafaxine Base Active Severe Hives, 2017-07 [place] Ingredient difficulty 08-09 Dilip breathing, itching promethazin Base Active Unknown extrapyramidal 2017-07 [place] e Ingredient symptoms -19 Dilip Gadolinium- Allergen [...]
--- OUTSIDE RECORDS SUMMARY | 2019-07-06 10:46 | XMS REPORT ---
:1975 Author Organization [facility] Care Team Providers Name Role Phone Unavailable Unavailable Unavailable Problems Condition Condition Condition Status Onset Resolution Last Treating Comments Name Details Category Date Date Treatment Clinician Date Pain frequent Pain Mgmt Resolve 2017-072018-08-27 Love pain d 08-16 15:00:00 [place] 10:20: [id number] 00 Respiratory smoker Respirator Resolve 2017-072018-07-23 Love y d 08-16 15:00:00 [place] 10:20: [id number] 00 Endo/Jose anti-coagul Endo/Jose Resolve 2017-072018-06-25 Love ation d 08-16 15:00:00 [place] therapy 10:20: [id number] 00 Nutrition nutritional Nutrition Resolve 2017-072018-07-04 Love restriction d 08-16 15:00:00 [place] s 10:20: [id number] 00 Neuro confusion Neuro/Emot Resolve 2017-072018-08-06 Love present ion d 08-16 15:00:00 [place] 10:20: [id number] 00 Neuro anxiety Neuro/Emot Resolve 2017-072018-08-06 Love present ion d 08-16 15:00:00 [place] 10:20: [id number] 00 Neuro depressive Neuro/Emot Resolve 2017-072018-08-06 Love feelings ion d 08-16 15:00:00 Carly present 10:20: [id number] 00 Safety risk for Safety Resolve 2017-072018-07-04 Loev hospitaliza d 08-16 15:00:00 [place] tion 10:20: [id number] 00 Safety fall risk Safety Resolve 2017-072018-07-04 Ericka factor d 08-16 15:00:00 Vivian present 10:20: 00 Musculoskel requires Musculoske Resolve 2017-072018-07-04 Love etal human letal d 08-16 15:00:00 [place] assist to 10:20: [id number] leave home 00 Cardio hypertensio Cardiovasc Resolve [...] resource Social 2-10 [place] deficit Services 14:00: [id number] 00 Social knowledge/s BRISEYDA: Resolve 2017-072018-09-22 Ke[facility] Services kill Social d 2-10 13:00:00 [place] deficit - Services 14:00: [id number] pt 00 Social knowledge/s BRISEYDA: Resolve 2017-072018-09-22 [facility] Services kill Social d 2-10 13:00:00 [place] deficit - Services 14:00: [id number] cg 00 Musculoskel requires Musculoske Resolve 2017-072018-07-16 Shelby etal human letal d 2-19 15:00:00 [place] assist to 15:30: leave home 00 Diagnoses knowledge/s Diagnoses Active 2017-07 Kezia kill 2-24 [place] deficit: cg 13:00: [id number] 00 Integument skin Integument Resolve 2017-072018-08-06 Shelby [...] Active Kezia hospitaliza 2-18 [place] tion 14:00: [id number] 00 Safety can be left Safety Unknown Kezia alone for 2-18 [place] only short 14:00: [id number] periods 00 Pain frequent Pain Mgmt Resolve 2018-2018-09-24 Lam pain d 2-27 15:00:00 [place] 15:50: [id number] 00 Safety can be left Safety Resolve 2018-10-08 Kezia alone for d 3-04 15:00:00 [place] only short 13:00: [id number] periods 00 Cardio edema Cardiovasc Resolve 2018-10-08 [...] ion d 4-08 13:00:00 Briones present 15:45: [id number] 00 Respiratory lung sounds Respirator Resolve 2018-10-29 Shelby deficit y d 4-10 13:00:00 [place] 13:00: 00 Infection s/s of Infection Resolve 2019-02-04 Shelby infection d 4-17 12:30:00 [place] 13:00: 00 Respiratory smoker Respirator Resolve 2018-11-05 Shelby y d 4-17 13:00:00 [place] 13:00: 00 Neuro depressive Neuro/Emot Resolve 2018-12-10 Lam feelings ion d 4-20 12:30:00 Briones present 12:20: [id number] 00 Respiratory smoker Respirator Resolve 2018-11-20 Shelby [...] 08 13:30:00 [place] deficit - Services 13:30: [id number] pt 00 Respiratory lung sounds Respirator Resolve [...] soni n d 12-18 12:30:00 Narendra 12:30: [id number] 00 Respiratory lung sounds Respirator Resolve 2018-12-24 [...] restriction d 01-16 12:30:00 [place] s 15:00: [id number] 00 Safety can be left Safety Resolve 2019-02-18 Kezia alone for d 01-16 12:10:00 [place] only short 15:00: [id number] periods 00 Respiratory smoker Respirator Resolve 2019-01-21 [...] Social 01-30 [place] deficit - Services 14:00: [id number] 00 Respiratory lung sounds Respirator Resolve 2019-02-04 [...] Kezia feelings ion 02-18 [place] present 14:30: [id number] 00 Respiratory lung sounds Respirator Resolve 2019-03-04 [...] d 03-12 12:30:00 [place] only short 15:30: [id number] periods 00 Respiratory smoker Respirator Resolve 2019-03-12 [...] d 0-14 12:45:00 [place] only short 15:00: [id number] periods 00 Musculoskel requires Musculoske Resolve 2018-072019-05-06 [...] Unknown Reaction Ernestine Unknown 3-23 (Robert) [place] [id number] effexor Unknown Active Unknown Reaction Ernestine Unknown 3-23 ([place]) [place] [id number] compazine Unknown Active Unknown Reaction Ernestine Unknown 3-23 ([place]) [place] [id number] adhesive Unknown Active Unknown Reaction Ernestine tape Unknown 3-23 (Robert) [place] [id number] milk Unknown Active Unknown Reaction Ernestine Unknown 3-23 (Robert) [place] [id number] prochlorper Base Active Unknown extrapyramidal 2017-07 [place] azine Ingredient symptoms -19 Dilip venlafaxine Base Active Severe Hives, 2017-07 [place] Ingredient difficulty 08-09 Dilip breathing, itching promethazin Base Active Unknown extrapyramidal 2017-07 [place] e Ingredient symptoms -19 Dilip Gadolinium- Allergen [...] mg tablet tablet gabapentin gabapentin 2018- No Ilz Unknown Unknown 100 mg 100 mg 12-09 [...]
--- OUTSIDE RECORDS SUMMARY | 2019-07-06 10:46 | XMS REPORT ---
:1975 Author Organization [facility] Care Team Providers Name Role Phone Unavailable Unavailable Unavailable Problems Condition Condition Condition Status Onset Resolution Last Treating Comments Name Details Category Date Date Treatment Clinician Date Pain frequent Pain Mgmt Resolve 2017-072018-08-27 Love pain d 08-16 15:00:00 [place] 10:20: [id number] 00 Respiratory smoker Respirator Resolve 2017-072018-07-23 Love y d 08-16 15:00:00 [place] 10:20: [id number] 00 Endo/Jose anti-coagul Endo/Jose Resolve 2017-072018-06-25 Love ation d 08-16 15:00:00 [place] therapy 10:20: [id number] 00 Nutrition nutritional Nutrition Resolve 2017-072018-07-04 Love restriction d 08-16 15:00:00 [place] s 10:20: [id number] 00 Neuro confusion Neuro/Emot Resolve 2017-072018-08-06 Love present ion d 08-16 15:00:00 [place] 10:20: [id number] 00 Neuro anxiety Neuro/Emot Resolve 2017-072018-08-06 Love present ion d 08-16 15:00:00 [place] 10:20: [id number] 00 Neuro depressive Neuro/Emot Resolve 2017-072018-08-06 Love feelings ion d 08-16 15:00:00 Carly present 10:20: [id number] 00 Safety risk for Safety Resolve 2017-072018-07-04 Love hospitaliza d 08-16 15:00:00 [place] tion 10:20: [id number] 00 Safety fall risk Safety Resolve 2017-072018-07-04 Ericka factor d 08-16 15:00:00 Vivian present 10:20: 00 Musculoskel requires Musculoske Resolve 2017-072018-07-04 Love etal human letal d 08-16 15:00:00 [place] assist to 10:20: [id number] leave home 00 Cardio hypertensio Cardiovasc Resolve [...] resource Social 2-10 [place] deficit Services 14:00: [id number] 00 Social knowledge/s BRISEYDA: Resolve 2017-072018-09-22 [facility] Services kill Social d 2-10 13:00:00 [place] deficit - Services 14:00: [id number] pt 00 Social knowledge/s BRISEYDA: Resolve 2017-072018-09-22 Kezia Services kill Social d 2-10 13:00:00 [place] deficit - Services 14:00: [id number] cg 00 Musculoskel requires Musculoske Resolve 2017-072018-07-16 [place] etal human letal d 2-19 15:00:00 [place] assist to 15:30: leave home 00 Diagnoses knowledge/s Diagnoses Active 2017-07 Kezia kill 2-24 [place] deficit: cg 13:00: [id number] 00 Integument skin Integument Resolve 2017-072018-08-06 [place] [...] Active Kezia hospitaliza 2-18 [place] tion 14:00: [id number] 00 Safety can be left Safety Unknown Kezia alone for 2-18 [place] only short 14:00: [id number] periods 00 Pain frequent Pain Mgmt Resolve 2018-2018-09-24 Lam pain d 2-27 15:00:00 [place] 15:50: [id number] 00 Safety can be left Safety Resolve 2018-10-08 Kezia alone for d 3-04 15:00:00 [place] only short 13:00: [id number] periods 00 Cardio edema Cardiovasc Resolve 2018-10-08 [...] ion d 4-08 13:00:00 Briones present 15:45: [id number] 00 Respiratory lung sounds Respirator Resolve 2018-10-29 [place] deficit y d 4-10 13:00:00 [place] 13:00: 00 Infection s/s of Infection Resolve 2019-02-04 [place] infection d 4-17 12:30:00 [place] 13:00: 00 Respiratory smoker Respirator Resolve 2018-11-05 Shelby y d 4-17 13:00:00 [place] 13:00: 00 Neuro depressive Neuro/Emot Resolve 2018-12-10 Lam feelings ion d 4-20 12:30:00 Briones present 12:20: [id number] 00 Respiratory smoker Respirator Resolve 2018-11-20 [place] [...] 08 13:30:00 [place] deficit - Services 13:30: [id number] pt 00 Respiratory lung sounds Respirator Resolve [...] soni n d 12-18 12:30:00 Narendra 12:30: [id number] 00 Respiratory lung sounds Respirator Resolve 2018-12-24 [...] restriction d 01-16 12:30:00 [place] s 15:00: [id number] 00 Safety can be left Safety Resolve 2019-02-18 Kezia alone for d 01-16 12:10:00 [place] only short 15:00: [id number] periods 00 Respiratory smoker Respirator Resolve 2019-01-21 [...] Social 01-30 [place] deficit - Services 14:00: [id number] 00 Respiratory lung sounds Respirator Resolve 2019-02-04 [...] Kezia feelings ion 02-18 [place] present 14:30: [id number] 00 Respiratory lung sounds Respirator Resolve 2019-03-04 [...] d 03-12 12:30:00 [place] only short 15:30: [id number] periods 00 Respiratory smoker Respirator Resolve 2019-03-12 [...] d 0-14 12:45:00 [place] only short 15:00: [id number] periods 00 Musculoskel requires Musculoske Resolve 2018-072019-05-06 Shelby etal human letal d 0-16 12:45:00 [place] assist to 12:45: leave home 00 Respiratory oxygen Respirator Resolve 2018-072019-05-13 Shelby treatments y d 0-23 12:30:00 [place] in home 12:30: 00 Nutrition nutritional Nutrition Resolve 2018-072019-05-13 [place] restriction d 0-23 12:30:00 [place]le[place] s 12:30: [...] Unknown Reaction Ernestine Unknown 3-23 ([place]) [place] [id number] effexor Unknown Active Unknown Reaction Ernestine Unknown 3-23 ([place]) [place] [id number] compazine Unknown Active Unknown Reaction Ernestine Unknown 3-23 ([place]) [place] [id number] adhesive Unknown Active Unknown Reaction Ernestine tape Unknown 3-23 ([place]) [place] [id number] milk Unknown Active Unknown Reaction Ernestine Unknown 3-23 ([place]) [place] [id number] prochlorper Base Active Unknown extrapyramidal 2017-07 [place] azine Ingredient symptoms -19 Dilip venlafaxine Base Active Severe Hives, 2017-07 [place] Ingredient difficulty 08-09 Dilip breathing, itching promethazin Base Active Unknown extrapyramidal 2017-07 [place] e Ingredient symptoms -19 Dilip Gadolinium- Allergen [...]
--- OUTSIDE RECORDS SUMMARY | 2019-07-06 10:47 | XMS REPORT ---
:1975 Author Organization [facility] Care Team Providers Name Role Phone Unavailable Unavailable Unavailable Problems Condition Condition Condition Status Onset Resolution Last Treating Comments Name Details Category Date Date Treatment Clinician Date Pain frequent Pain Mgmt Resolve 2017-072018-08-27 Love pain d 08-16 15:00:00 [place] 10:20: [id number] 00 Respiratory smoker Respirator Resolve 2017-072018-07-23 Love y d 08-16 15:00:00 [place] 10:20: [id number] 00 Endo/Jose anti-coagul Endo/Jose Resolve 2017-072018-06-25 Love ation d 08-16 15:00:00 [place] therapy 10:20: [id number] 00 Nutrition nutritional Nutrition Resolve 2017-072018-07-04 Love restriction d 08-16 15:00:00 [place] s 10:20: [id number] 00 Neuro confusion Neuro/Emot Resolve 2017-072018-08-06 Love present ion d 08-16 15:00:00 [place] 10:20: [id number] 00 Neuro anxiety Neuro/Emot Resolve 2017-072018-08-06 Love present ion d 08-16 15:00:00 [place] 10:20: [id number] 00 Neuro depressive Neuro/Emot Resolve 2017-072018-08-06 Love feelings ion d 08-16 15:00:00 Carly present 10:20: [id number] 00 Safety risk for Safety Resolve 2017-072018-07-04 Love hospitaliza d 08-16 15:00:00 [place] tion 10:20: [id number] 00 Safety fall risk Safety Resolve 2017-072018-07-04 Ericka factor d 08-16 15:00:00 Vivian present 10:20: 00 Musculoskel requires Musculoske Resolve 2017-072018-07-04 Olve etal human letal d 08-16 15:00:00 [place] assist to 10:20: [id number] leave home 00 Cardio hypertensio Cardiovasc Resolve [...] resource Social 2-10 [place] deficit Services 14:00: [id number] 00 Social knowledge/s BRISEYDA: Resolve 2017-072018-09-22 Ke[facility] Services kill Social d 2-10 13:00:00 [place] deficit - Services 14:00: [id number] pt 00 Social knowledge/s BRISEYDA: Resolve 2017-072018-09-22 Kezia Services kill Social d 2-10 13:00:00 [place] deficit - Services 14:00: [id number] cg 00 Musculoskel requires Musculoske Resolve 2017-072018-07-16 Shelby etal human letal d 2-19 15:00:00 [place] assist to 15:30: leave home 00 Diagnoses knowledge/s Diagnoses Active 2017-07 Kezia kill 2-24 [place] deficit: cg 13:00: [id number] 00 Integument skin Integument Resolve 2017-072018-08-06 [place] [...] Active Kezia hospitaliza 2-18 [place] tion 14:00: [id number] 00 Safety can be left Safety Unknown Kezia alone for 2-18 [place] only short 14:00: [id number] periods 00 Pain frequent Pain Mgmt Resolve 2018-2018-09-24 Lam pain d 2-27 15:00:00 [place] 15:50: [id number] 00 Safety can be left Safety Resolve 2018-10-08 Kezia alone for d 3-04 15:00:00 [place] only short 13:00: [id number] periods 00 Cardio edema Cardiovasc Resolve 2018-10-08 [...] ion d 4-08 13:00:00 Briones present 15:45: [id number] 00 Respiratory lung sounds Respirator Resolve 2018-10-29 [place] deficit y d 4-10 13:00:00 [place] 13:00: 00 Infection s/s of Infection Resolve 2019-02-04 [place] infection d 4-17 12:30:00 [place] 13:00: 00 Respiratory smoker Respirator Resolve 2018-11-05 Shelby y d 4-17 13:00:00 [place] 13:00: 00 Neuro depressive Neuro/Emot Resolve 2018-12-10 Lam feelings ion d 4-20 12:30:00 Briones present 12:20: [id number] 00 Respiratory smoker Respirator Resolve 2018-11-20 [place] [...] 08 13:30:00 [place] deficit - Services 13:30: [id number] pt 00 Respiratory lung sounds Respirator Resolve [...] soni n d 12-18 12:30:00 Narendra 12:30: [id number] 00 Respiratory lung sounds Respirator Resolve 2018-12-24 [...] restriction d 01-16 12:30:00 [place] s 15:00: [id number] 00 Safety can be left Safety Resolve 2019-02-18 Kezia alone for d 01-16 12:10:00 [place] only short 15:00: [id number] periods 00 Respiratory smoker Respirator Resolve 2019-01-21 [...] Social 01-30 [place] deficit - Services 14:00: [id number] 00 Respiratory lung sounds Respirator Resolve 2019-02-04 [...] Kezia feelings ion 02-18 [place] present 14:30: [id number] 00 Respiratory lung sounds Respirator Resolve 2019-03-04 [...] d 03-12 12:30:00 [place] only short 15:30: [id number] periods 00 Respiratory smoker Respirator Resolve 2019-03-12 [...] home 00 Safety can be left Safety Active 2018-07 [place] alone for 0-14 [place] only short 15:00: [id number] periods 00 Musculoskel requires Musculoske Resolve 2018-072019-05-06 [...] Respirator Resolve 2018-072019-05-27 Shelby ruby y d 07-27 12:25:00 [place] in home 12:25: 00 Respiratory smoker Respirator Resolve 2018-072019-05-27 Shelby y d 07-27 12:25:00 [place] 12:25: 00 Respiratory lung sounds Respirator Active 2018-07 Shelby fregoso y 08-03 [place] 12:45: 00 Allergies, Adverse Reactions, Alerts Allergy Allergy Status Severity Reaction(s) Onset Inactive Treating Comments Name Type Date Date Clinician phenergan Unknown Active Unknown Reaction Ernestine Unknown 3-23 (Robert) [place] [id number] effexor Unknown Active Unknown Reaction Ernestine Unknown 3-23 ([place]) [place] [id number] compazine Unknown Active Unknown Reaction Ernestine Unknown 3-23 ([place]) [place] [id number] adhesive Unknown Active Unknown Reaction Ernestine tape Unknown 3-23 (Robert) [place] [id number] milk Unknown Active Unknown Reaction Ernestine Unknown 3-23 ([place]) [place] [id number] prochlorper Base Active Unknown extrapyramidal 2017-07 [place] azine Ingredient symptoms 1-19 Dilip venlafaxine Base Active Severe Hives, 2017-07 [place] Ingredient difficulty -19 Dilip breathing, itching promethazin Base Active Unknown extrapyramidal 2017-07 [place] e Ingredient symptoms -19 Dilip Gadolinium- Allergen [...] Dose 81 mg Dose 81 mg MD,Radomir tablet,uszan tablet,suzan yed release yed release gabapentin gabapentin [...] 2 mg tablet ,Radomir dexAMETHaso dexAMETHaso 2017-07- Liz Unknown Unknown ne [...] syringe kit kit mirtazapine mirtazapine 2017-07 No Lzi Unknown Unknown 30 mg 30 mg 08-16 Jill CARRENO tablet tablet Colace 100 Colace 100 2017-07- No Liz Unknown Unknown mg capsule mg capsule 08-16 Jill CARRENO DULoxetine DULoxetine 2017-07- No Liz [...] ol 750 mg ol 750 mg 10-23- Jill CARRENO tablet tablet pantoprazol pantoprazol No Liz Unknown Unknown e 40 mg e 40 mg 10-29 Jill CARRENO tablet,suzan tablet,suzan yed release yed release cetirizine cetirizine No Liz Unknown Unknown 10 mg 10 mg - Jill CARRENO tablet tablet ondansetron ondansetron No [...] tablet nyquil nyquil No Liz Unknown Unknown 5- ,Jill vinorelbine vinorelbine 2018- No Liz Unknown Unknown 11-25 ,Jill metroNIDAZO metroNIDAZO 2018- No Liz Unknown Unknown LE 500 mg LE 500 mg 02-03- Jill CARRENO tablet tablet amoxicillin amoxicillin 2018- No Liz [...] Liz Unknown Unknown 160 mcg-4.5 160 mcg-4.5 6- Jill CARRENO mcg/actuati mcg/actuati on HFA on [...] Unknown Unknown mg capsule mg capsule 01-21 Jill CARRENO Soma 250 mg Soma 250 mg No Liz Unknown Unknown tablet tablet 01-21 ,Jill Miralax 17 Miralax 17 No Liz Unknown Unknown gram oral gram oral 01-21 Jill CARRENO powder powder packet packet Aloxi 0.25 Aloxi [...] Unknown Unknown 875 mg-125 875 mg-125 004 05-01 MD,Jill mg tablet mg tablet Kadcyla [...]
--- OUTSIDE RECORDS SUMMARY | 2019-07-06 10:47 | XMS REPORT ---
:1975 Author Organization [facility] Care Team Providers Name Role Phone Unavailable Unavailable Unavailable Problems Condition Condition Condition Status Onset Resolution Last Treating Comments Name Details Category Date Date Treatment Clinician Date Pain frequent Pain Mgmt Resolve 2017-072018-08-27 Love pain d 08-16 15:00:00 [facility] 10:20: [id number] Respiratory smoker Respirator Resolve 2017-072018-07-23 Love y d 08-16 15:00:00 [facility]ilion 10:20: [id number] 00 Endo/Jose anti-coagul Endo/Jose Resolve 2017-072018-06-25 Love ation d 08-16 15:00:00 [facility] therapy 10:20: [id number] 00 Nutrition nutritional Nutrition Resolve 2017-072018-07-04 Love restriction d 08-16 15:00:00 Pavilion s 10:20: [id number] 00 Neuro confusion Neuro/Emot Resolve 2017-072018-08-06 Love present ion d 08-16 15:00:00 [facility]ilion 10:20: [id number] 00 Neuro anxiety Neuro/Emot Resolve 2017-072018-08-06 Love present ion d 08-16 15:00:00 Pavilion 10:20: [id number] 00 Neuro depressive Neuro/Emot Resolve 2017-072018-08-06 Love feelings ion d 08-16 15:00:00 Carly present 10:20: [id number] 00 Safety risk for Safety Resolve 2017-072018-07-04 Love hospitaliza d 08-16 15:00:00 Pavilion tion 10:20: [id number] 00 Safety fall risk Safety Resolve 2017-072018-07-04 Ericka factor d 08-16 15:00:00 Vivian present 10:20: 00 Musculoskel requires Musculoske Resolve 2017-072018-07-04 Love etal human letal d 08-16 15:00:00 Pavilion assist to 10:20: [id number] leave home 00 Cardio hypertensio Cardiovasc Resolve [...] resource Social 2-10 [place] deficit Services 14:00: [id number] 00 Social knowledge/s BRISEYDA: Resolve 2017-072018-09-22 Kezia Services kill Social d 2-10 13:00:00 [place] deficit - Services 14:00: [id number] pt 00 Social knowledge/s BRISEYDA: Resolve 2017-072018-09-22 Kezia Services kill Social d 2-10 13:00:00 [place] deficit - Services 14:00: [id number] cg 00 Musculoskel requires Musculoske Resolve 2017-072018-07-16 Shelby etal human letal d 2-19 15:00:00 [place] assist to 15:30: leave home 00 Diagnoses knowledge/s Diagnoses Active 2017-07 Kezia kill 2-24 [place] deficit: cg 13:00: [id number] 00 Integument skin Integument Resolve 2017-072018-08-06 Shelby [...] Active Kezia hospitaliza 2-18 [place] tion 14:00: [id number] Safety can be left Safety Unknown Kezia alone for 2-18 [place] only short 14:00: [id number] periods 00 Pain frequent Pain Mgmt Resolve 2018-2018-09-24 Lam pain d 2-27 15:00:00 Briones 15:50: [id number] 00 Safety can be left Safety Resolve 2018-10-08 Kezia alone for d 3-04 15:00:00 [place] only short 13:00: [id number] periods 00 Cardio edema Cardiovasc Resolve 2018-10-08 [...] ion d 4-08 13:00:00 Briones present 15:45: [id number] 00 Respiratory lung sounds Respirator Resolve 2018-10-29 Shelby deficit y d 4-10 13:00:00 [place] 13:00: 00 Infection s/s of Infection Resolve 2019-02-04 Shelby infection d 4-17 12:30:00 [place] 13:00: 00 Respiratory smoker Respirator Resolve 2018-11-05 Shelby y d 4-17 13:00:00 [place] 13:00: 00 Neuro depressive Neuro/Emot Resolve 2018-12-10 Lam feelings ion d 4-20 12:30:00 Briones present 12:20: [id number] 00 Respiratory smoker Respirator Resolve 2018-11-20 Shelby [...] 08 13:30:00 [place] deficit - Services 13:30: [id number] pt 00 Respiratory lung sounds Respirator Resolve [...] soni n d 12-18 12:30:00 Narendra 12:30: [id number] 00 Respiratory lung sounds Respirator Resolve 2018-12-24 [...] required 00 Medication potential Meds Resolve 2019-01-07 Shelyb clinically d 6-14 12:30:00 [place]le[place] significant 11:30: [...] restriction d 01-16 12:30:00 [place] s 15:00: [id number] 00 Safety can be left Safety Resolve 2019-02-18 Kezia alone for d 01-16 12:10:00 [place] only short 15:00: [id number] periods 00 Respiratory smoker Respirator Resolve 2019-01-21 [...] Social 01-30 [place] deficit - Services 14:00: [id number] Respiratory lung sounds Respirator Resolve 2019-02-04 [...] Kezia feelings ion 02-18 [place] present 14:30: [id number] Respiratory lung sounds Respirator Resolve 2019-03-04 [...] d 03-12 12:30:00 [place] only short 15:30: [id number] periods 00 Respiratory smoker Respirator Resolve 2019-03-12 [...] alone for 0-14 [place] only short 15:00: [id number] periods 00 Musculoskel requires Musculoske Resolve 2018-072019-05-06 [...] 00 Respiratory oxygen Respirator Resolve 2018-072019-05-27 Shelby trejo anil 07-27 12:25:00 Valle[place] in home 12:25: 00 Respiratory smoker Respirator Resolve 2018-072019-05-27 Hselby maya ma 07-27 12:25:00 [place] 12:25: 00 Allergies, Adverse Reactions, Alerts Allergy Allergy Status Severity Reaction(s) Onset Inactive Treating Comments Name Type Date Date Clinician phenergan Unknown Active Unknown Reaction Ernestine Unknown 3-23 (Robert) [place] [id number] effexor Unknown Active Unknown Reaction Ernestine Unknown 3-23 (Robert) [place] [id number] compazine Unknown Active Unknown Reaction Ernestine Unknown 3-23 (Robert) [place] [id number] adhesive Unknown Active Unknown Reaction Ernestine tape Unknown 3-23 (Robert) [place] [id number] milk Unknown Active Unknown Reaction Ernestine Unknown 3-23 (Robert) [place] [id number] prochlorper Base Active Unknown extrapyramidal 2017-07 [place] azine Ingredient symptoms 1-19 Dilip venlafaxine Base Active Severe Hives, 2017-07 [place] Ingredient difficulty -19 Dilip breathing, itching promethazin Base Active Unknown extrapyramidal 2017-07 [place] e Ingredient symptoms - Dilip Gadolinium- Allergen Active Severe Anaphylaxis Shelby Containing Group - [place] Contrast Media Medications Ordered Filled Start [...] Liz Unknown Unknown tablet tablet 08-16 Jill ACRRENO fentaNYL fentaNYL 2017-07- No Liz Unknown Unknown [...] LE 500 mg LE 500 mg 02-03 Jill CARRENO tablet tablet amoxicillin amoxicillin 2018- [...] 2 mg tablet 2 mg tablet 12-24 Jill CARRENO fentaNYL fentaNYL No Liz Unknown Unknown 100 mcg/hr 100 mcg/hr 12-31 Jill CARRENO transdermal transdermal patch patch Soma 250 mg Soma 250 mg 2018- No Liz Unknown Unknown tablet tablet 01-01- Jill CARRENO Symbicort Symbicort No Liz Unknown Unknown 160 mcg-4.5 160 mcg-4.5 6- Jill CARRENO mcg/actuati mcg/actuati on HFA on HFA aerosol aerosol inhaler inhaler glyBURIDE glyBURIDE 2018- No Liz Unknown Unknown 2.5 mg 2.5 mg 01-01 MD,Jill tablet tablet predniSONE predniSONE 2018- No Liz Unknown Unknown 20 mg 20 mg 01-01 MD,Ijll tablet tablet Zithromax Zithromax 2018- No Liz [...] Unknown Unknown 300 mg 300 mg 02-24 MD,Jill capsule capsule metoclopram metoclopram No Liz [...] Liz Unknown Unknown 875 mg-125 875 mg-125 005-01 MD,Jill mg tablet mg tablet Kadcyla 100 Kadcyla 100 2018-07 Yes Liz Unknown Unknown mg mg 0-03 Jill CARRENO intravenous intravenous solution solution Vital Signs Vital Name Observation Time Observation Value Comments SYSTOLIC mm[Hg] 2019-04-08 18:07:54 118 mm[Hg] mm[Hg] Method: Stand SYSTOLIC mm[Hg] 2019-05-27 18:08:43 110 mm[Hg] mm[Hg] Method: Lie DIASTOLIC mm[Hg] 2019-04-08 18:07:54 80 mm[Hg] mm[Hg] Method: Stand DIASTOLIC mm[Hg] 2019-05-27 18:08:43 55 mm[Hg] mm[Hg] Method: Lie PULSE 2019-05-27 18:08:43 102 /min /min RESP RATE 2019-05-27 18:08:43 16 /min /min TEMP 2019-05-27 18:08:43 97.5 [degF] Procedures This patient has no known procedures. Results This patient has no known results.
[2019-07-06 10:55] LABS: Activated Partial Thrombo Time 48.3 seconds (26.0-38.0); INR 1.39 (0.82-1.09)
[2019-07-06 11:03] LABS: Albumin 3.6 g/dL (3.2-5.2); Albumin/Globulin Ratio 1.1 (1-3); BUN/Creatinine Ratio 11.4 (8-20); Calcium 8.8 mg/dL (8.6-10.3); EGFR African American 111.6 (>60); EGFR Non-African American 92.2 (>60); Globulin 3.4 g/dL (2-4); Potassium 3.7 mmol/L (3.5-5.0); Total Bilirubin 0.4 mg/dL (0.2-1.0)
[2019-07-06 11:04] LABS: Troponin I 0.01 ng/mL (<0.03)
[2019-07-06 11:07] LABS: Influenza A Molecular NEGATIVE (Negative); Influenza B Molecular NEGATIVE (Negative)
[2019-07-06] MEDS ORDERED: Albuterol/Ipratropium NEB.SOL* Albuterol 2.5 MG/Ipratropium 0.5 MG 3 ML INH ONE (11:41)
[2019-07-06] MEDS ORDERED: Dexamethasone IV* 4 MG/ML 1 ML (4 MG) IV SLOW PU ONE (11:42)
[2019-07-06] MEDS ORDERED: Iodixanol* (CONTRAST) 320 MG/ML 100 ML SDV IV ONE (11:51)
[2019-07-06] MEDS ORDERED: fentaNYL PATCHs 100 MCG/HR TRANSDERM SCH ×2 (12:00→13:00)
[2019-07-06 12:01] LABS: C Reactive Protein 27.58 mg/L (<8.01)
[2019-07-06] MEDS ORDERED: HYDROmorphone INJ* 0.5 MG/0.5 ML SYRINGE IV SLOW PU ONE (12:01)
[2019-07-06] MEDS ORDERED: Cefepime(*) 1 GM in NS 0.9% 50 ML* 50 ML IVPB ONE (12:44)
[2019-07-06] MEDS ORDERED: Levofloxacin 750 MG IVPREMIX(* 750 MG/150 ML BAG IVPB ONE (12:44)
[2019-07-06] MEDS ORDERED: Polyethylene Glycol 3350* 17 GM PACKET PO PRN (12:45)
[2019-07-06] MEDS ORDERED: Docusate CAP* 100 MG PO PRN (12:45)
[2019-07-06] MEDS ORDERED: ALPRAZolam TAB* 0.5 MG PO PRN (12:45)
[2019-07-06] MEDS ORDERED: Ondansetron TAB* 4 MG PO PRN (12:45)
[2019-07-06] MEDS ORDERED: Albuterol/Ipratropium NEB.SOL* Albuterol 2.5 MG/Ipratropium 0.5 MG 3 ML INH PRN (12:55)
[2019-07-06] MEDS ORDERED: diPHENhydraMINE IV* 50 MG/ML 1 ml VIAL (BENADRYL) IV ONE (13:20)
[2019-07-06] MEDS: NS 0.9% 1000 ML** 1,000 ML IV SCH (15:54)
[2019-07-06] MEDS: Nystatin SUSPENSION* 100000 UNITS/ML 5 ML UDC PO SCH ×2 (16:01→21:39)
[2019-07-06] MEDS: HYDROmorphone INJ1* 1 MG/ML SYRINGE IV SLOW PU PRN ×2 (17:59→21:59)
[2019-07-06] MEDS: fentaNYL Patch Check Q Shift 1 NOTE FOLLOW UP SCH (18:48)
[2019-07-06] MEDS ORDERED: fentaNYL Patch Check Q Shift 1 NOTE FOLLOW UP SCH (19:00)
[2019-07-06] MEDS ORDERED: Gadoteridol* (CONTRAST) 279.3 MG/ML 10 ML IV ONE (19:44)
[2019-07-06] MEDS ORDERED: DULoxetine DR CAP* 30 MG CAP.DR PO SCH (21:00)
[2019-07-06] MEDS ORDERED: Nicotine Patch Removal NOTE FOLLOW UP SCH (21:00)
[2019-07-06] MEDS: Mometasone/Formoter 200/5 MDI INH SCH (21:23)
[2019-07-06] MEDS: traZODone TAB* 100 MG PO SCH (21:38)
[2019-07-06] MEDS: oxyCODONE TAB* 5 MG TAB PO PRN (21:38)
[2019-07-06] MEDS: Nicotine PATCH 21 MG/24 HR* PATCH TRANSDERM SCH (21:45)
[2019-07-07] MEDS: HYDROmorphone INJ1* 1 MG/ML SYRINGE IV SLOW PU PRN (05:46)
[2019-07-07 05:54] LABS: ABS Basophils 0.1 10^3/ul (0-0.2); ABS Lymphocytes 1.6 10^3/ul (1.0-4.8); ABS Monocytes 0.7 10^3/ul (0-0.8); ABS Neutrophils 6.1 10^3/ul (1.5-7.7); Eosinophil % 0.2 %; Hematocrit 31 % (35-47); Hemoglobin 9.5 g/dL (12.0-16.0); Lymphocyte % 18.9 %; Mean Corpuscular HGB Conc 31 g/dL (31-36); Mean Corpuscular Hemoglobin 25 pg (27-31); Mean Corpuscular Volume 80 fL (80-97); Mean Platelet Volume 7.8 fL (7.4-10.4); Nucleated Red Blood Cells % 0.1; Platelet Count 216 10^3/uL (150-450); Red Blood Count 3.81 10^6 /uL (3.70-4.87); Red Cell Distribution Width 22 % (10-15); White Blood Count 8.4 10^3/uL (3.5-10.8)
[2019-07-07 06:48] LABS: Albumin 3.1 g/dL (3.2-5.2); Calcium 7.8 mg/dL (8.6-10.3); Potassium 3.7 mmol/L (3.5-5.0); Total Bilirubin 0.2 mg/dL (0.2-1.0)
[2019-07-07] MEDS: fentaNYL Patch Check Q Shift 1 NOTE FOLLOW UP SCH (06:51)
[2019-07-07 06:54] LABS: Albumin/Globulin Ratio 1.2 (1-3); BUN/Creatinine Ratio 19.1 (8-20); EGFR African American 176.7 (>60); Globulin 2.6 g/dL (2-4); Total Protein 5.7 g/dL (6.4-8.9)
[2019-07-07] MEDS: traZODone TAB* 100 MG PO SCH (07:56)
[2019-07-07] MEDS: oxyCODONE TAB* 5 MG TAB PO PRN (07:56)
[2019-07-07] MEDS: Nystatin SUSPENSION* 100000 UNITS/ML 5 ML UDC PO SCH (07:58)
[2019-07-07] MEDS: Nicotine PATCH 21 MG/24 HR* PATCH TRANSDERM SCH (07:58)
[2019-07-07] MEDS: NS 0.9% 1000 ML** 1,000 ML IV SCH (08:03)
[2019-07-07] MEDS: Mometasone/Formoter 200/5 MDI INH SCH (08:37)
[2019-07-07] MEDS ORDERED: BREXPIPRAZOLE 2 MG PO SCH (09:00)
[2019-07-07] MEDS ORDERED: Potassium Chlor TAB* 20 MEQ TAB.ER PO SCH (09:00)
[2019-07-07] MEDS ORDERED: Cetirizine* 10 MG TAB PO SCH (09:00)
[2019-07-07] MEDS ORDERED: Rivaroxaban TAB(*) 20 MG TAB PO SCH (09:00)
[2019-07-07] MEDS ORDERED: Gabapentin CAP(*) 300 MG PO SCH (09:00)
[2019-07-07] MEDS ORDERED: Mirtazapine TAB* 15 MG PO SCH (09:00)
[2019-07-07] MEDS ORDERED: Dexamethasone IV* 4 MG/ML 1 ML (4 MG) IV SLOW PU SCH (09:00)
[2019-07-07 12:59] VITALS: BP 109/48
[2019-07-07] MEDS ORDERED: Levofloxacin 750 MG IVPREMIX(* 750 MG/150 ML BAG IVPB SCH (14:00)
--- NOTE | 2019-07-07 21:04 | DS ---
CC: Dr. Hill * DISCHARGE SUMMARY: DATE OF ADMISSION: 07/06/19 DATE OF DISCHARGE: 07/07/19 PRIMARY ONCOLOGIST: Dr. Jill Hill. ATTENDING PHYSICIAN: Dr. Cresencio Gill.* (DICTATED BY EBONY GALAN) DISCHARGING PROVIDER: EBONY Galan. PRIMARY DISCHARGE DIAGNOSES: 1. Pneumonia versus pneumonitis. 2. Progressive HER2 positive metastatic breast cancer. 3. Intractable headache and neck pain. DISCHARGE MEDICATIONS: 1. Alprazolam 1 mg p.o. 4 times daily as needed for anxiety. 2. Rexulti 2 mg p.o. daily. 3. Soma 250 mg p.o. q.4 hours as needed for muscle spasm. 4. Cetirizine 10 mg p.o. daily. 5. Docusate 200 mg p.o. twice daily. 6. Cymbalta 60 mg p.o. at bedtime. 7. Fentanyl patch 200 mcg transdermally, replaced every 72 hours. 8. Gabapentin 300 mg p.o. daily 9. Mirtazapine 30 mg p.o. daily. 10. Aleve 220 mg p.o. twice daily as needed. 11. Zofran 4 mg p.o. every 4 hours as needed for nausea or vomiting. 12. Oxycodone 10 to 20 mg p.o. q.4 hours as needed for pain. 13. MiraLAX 17 g p.o. daily. 14. Potassium chloride 20 mEq p.o. daily. 15. Trazodone 200 mg p.o. daily. 16. Dexamethasone 2 mg p.o. twice daily. 17. Xarelto - on hold until after lumbar puncture (last dose 07/07/19). HOSPITAL IMAGIN. Chest x-ray, 07/06/19, shows no evidence of pneumonia or other intrathoracic disease. 2. CT brain shows no evidence of intracranial hemorrhage or mass effect. 3. CTA chest shows that the CTA is largely diagnostic for PE due to suboptimal opacification, but no gross evidence of large PEs. There is motion artifact that limits some assessment of the lungs, but bilateral hazy alveolar infiltrates may represent atelectasis or potential bronchopneumonia. There is an unchanged 1.5 cm short axis right axillary lymph node. No new lymphadenopathy. There is an unchanged 1.3 cm sclerotic lesion at the T10 vertebral body. 4. MRI brain, 07/06/19, shows within the right posterior frontal lobe a 9 x 9 x 9 mm enhancing lesion, which has slightly increased in size compared to prior study (previously measured at 6 mm in largest diameter). There is diffuse decrease in T1 signal intensity of the skull similar to prior studies. 5. MRI of the cervical spine, degenerative changes noted at multiple cervical levels with disk protrusions at C4-5 and C5-6 with mild stenosis. Mild left foraminal narrowing at C6-7. Evaluation of bone marrow cervical spine suboptimal on T1 weighted images. HOSPITAL COURSE: This is a 43-year-old female with metastatic HER2 positive breast cancer, currently with known [employer] metastases, status post gamma knife, currently receiving Kadcyla under the care of Dr. Jill Hill, who presented to the emergency department with complaints of intractable headache. Initial assessments in the emergency department showed no large masses on CT of the brain. She was incidentally found to be hypoxic with an oxygen saturation of 85 %. Chest x-ray showed no focal infiltrates. CTA was suboptimal opacification of the pulmonary vasculature but showed no large PEs, and she is chronically anticoagulated on Xarelto making this a low risk study. She had no focal infiltrate but kind of a diffuse patchy densities in both lungs. The patient last week had been seen with somnolence, fevers, and cough with crackles in the left lower lobe. She was treated for clinical pneumonia with Levaquin. She reported additional fevers over the 24 hours prior to this hospitalization, but remained afebrile throughout this hospital stay without any significant leukocytosis and only mild elevation of her CRP to 27. Influenza testing was negative. The patient underwent an MRI of the cervical spine and brain. Her metastatic focus in the right posterior frontal lobe previously treated via gamma knife appears to have increased in size from 6 mm to 9 mm in largest dimension with mild vasogenic edema. The degree of her headaches and associated neck pain appears to be out of proportion with this relatively small progression of disease. She had no other noted metastatic focus on either of these studies. The patient was empirically treated with IV dexamethasone and reported improvement in her neck pain and headache. She very much desired to be discharged home which appeared appropriate. Regarding her respiratory status, the patient is maintained on oxygen saturations in the high 90s with 4 L of supplemental oxygen. She has clubbing on exam and has been noted to be intermittently hypoxic in the past. She has been recommended to use oxygen but generally just uses it at night. Her CT is nonspecific, but could represent either atypical pneumonia versus pneumonitis, which is described on rare occasion with Imtiaz. She has received full course of antibiotics and appropriate treatment for pneumonitis would be steroids, which she will be receiving for her treatment of vasogenic edema for progressive brain metastasis. As noted above, the patient's symptoms appear to be out of proportion to the degree of progression seen on MRI bringing up the concern for possible leptomeningeal metastatic disease. She is anticoagulated with Xarelto, and for this reason, lumbar puncture was not completed at the time of admission. This is a pertinent piece of her exam, however, and can be completed as an outpatient. DISPOSITION AND FOLLOWUP PLAN: The patient is being discharged home in stable condition. She will return to clinic for followup tomorrow to reevaluate. She has been discharged on 2 mg of dexamethasone twice daily. We will have her follow up with radiation oncologist. She has completed her prior gamma knife, to consider retreatment of her focal lesion if leptomeningeal disease is ruled out. We will plan to complete lumbar puncture as an outpatient on Saturday, and she is holding her Xarelto at this time until after the lumbar puncture has been completed. EBONY GALAN [id number]/[facility] #: [id number] MTDJitendra
== END 2019-07-07 13:35 | disposition home or self-care (01) ==
LOC: ED 10:09 → MED 12:43
PROVIDERS: ADMIT Internal Medicine; ATTEND Internal Medicine Hematology & Oncology
DX: J18.9 Pneumonia, unspecified organism (principal); C50.919 Malignant neoplasm of unspecified site of unspecified female breast; R51 Headache; M54.2 Cervicalgia; Z79.01 Long term (current) use of anticoagulants; J45.909 Unspecified asthma, uncomplicated; E66.9 Obesity, unspecified; F32.9 Major depressive disorder, single episode, unspecified; M54.9 Dorsalgia, unspecified; I50.9 Heart failure, unspecified; Z86.718 Personal history of other venous thrombosis and embolism; E78.00 Pure hypercholesterolemia, unspecified; J44.9 Chronic obstructive pulmonary disease, unspecified; F17.210 Nicotine dependence, cigarettes, uncomplicated; Z79.899 Other long term (current) drug therapy
CPT/HCPCS: 36415; 70450; 70553; 71046; 71275; 72156; 80053; 83605; 84484; 85025; 85610; 85730; 86140; 87040; 93005; 94640; 96365; 96375; 96376; 99217; 99219; 99284; A9270-GY; A9579; G0378; J0692; J1100; J1170; J1200; J1642; Q9967

== ENCOUNTER 2019-07-23 16:05 | Inpatient (IN) | payer OTHER ==
[2019-07-23] MEDS ORDERED: Ondansetron TAB* 4 MG PO PRN (16:39)
[2019-07-23] MEDS ORDERED: Docusate CAP* 100 MG PO PRN (16:39)
[2019-07-23] MEDS ORDERED: Zosyn per Pharmacy* NOTE FOLLOW UP SCH (17:00)
[2019-07-23] MEDS ORDERED: diPHENhydraMINE PO* 50 MG PO ONE (18:03)
--- OUTSIDE RECORDS SUMMARY | 2019-07-23 18:26 | XMS REPORT ---
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 Secondary Secondary Diagnosis Active 2017-07 Shelby malignant malignant 08-16 [place] neoplasm of neoplasm of other other specified specified sites sites 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 Headache Headache Diagnosis Active 2017-07 Shelby 08-16 [place] Syncope and Syncope and Diagnosis Active 2017-07 Shelby collapse collapse 08-16 [place] Cardiac Cardiac Diagnosis Active Shelby arrhythmia, arrhythmia, [place] unspecified unspecified Major Major Diagnosis Active 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, disorder, recurrent, recurrent, unspecified unspecified Anxiety Anxiety Diagnosis Active Shelby disorder, disorder, [place] unspecified unspecified Pain frequent Pain Mgmt Resolve 2017-072018-08-27 Love pain d 08-16 15:00:00 Magee 10:20: [id number] 00 Respiratory smoker Respirator Resolve 2017-072018-07-23 Love y d 08-16 15:00:00 Magee 10:20: [id number] 00 Endo/Jose anti-coagul Endo/Jose Resolve 2017-072018-06-25 Love ation d 08-16 15:00:00 Carly therapy 10:20: [id number] 00 Nutrition nutritional Nutrition Resolve 2017-072018-07-04 Love restriction d 08-16 15:00:00 Magee s 10:20: [id number] 00 Neuro confusion Neuro/Emot Resolve 2017-072018-08-06 Love present ion d 08-16 15:00:00 Carly 10:20: [id number] 00 Neuro anxiety Neuro/Emot Resolve 2017-072018-08-06 Love present ion d 08-16 15:00:00 Carly 10:20: [id number] 00 Neuro depressive Neuro/Emot Resolve 2017-072018-08-06 Love feelings ion d 08-16 15:00:00 Magee present 10:20: [id number] 00 Safety risk for Safety Resolve 2017-072018-07-04 Love hospitaliza d 08-16 15:00:00 Magee tion 10:20: [id number] 00 Safety fall risk Safety Resolve 2017-072018-07-04 Ericka factor d 08-16 15:00:00 Vivian present 10:20: 00 Musculoskel requires Musculoske Resolve 2017-072018-07-04 Love etal human letal d 08-16 15:00:00 Magee assist to 10:20: [id number] leave home 00 Cardio hypertensio Cardiovasc Resolve 2017-072018-08-06 Shelby n ular d 08-20 15:00:00 [place] 13:00: 00 Respiratory [...] 00 Elimination nausea/vomi Eliminatio Resolve 2017-072018-07-04 Shelby stuartg n d 08-20 15:00:00 [place] 13:00: 00 Integument skin Integument Resolve 2017-072018-07-04 Shelby integrity d 2-05 15:00:00 [place] risk 15:00: 00 Social financial BRISEYDA: Active 2017-07 [facility] Services resource Social 2-10 [place] deficit Services 14:00: [id number] 00 Social knowledge/s BRISEYDA: Resolve 2017-072018-09-22 [facility] kill Social d 2-10 13:00:00 [place] deficit - Services 14:00: [id number] pt 00 Social knowledge/s BRISEYDA: Resolve 2017-072018-09-22 [facility] kill Social d 2-10 13:00:00 [place] deficit - Services 14:00: [id number] cg 00 Musculoskel requires Musculoske Resolve 2017-072018-07-16 Shelby etal human letal d 2-19 15:00:00 [place] assist to 15:30: leave home 00 Diagnoses knowledge/s Diagnoses Active 2017-07 Kezia kill 2-24 [place] deficit: cg 13:00: [id number] 00 Integument skin Integument Resolve 2017-072018-08-06 Shelby integrity d 2-26 15:00:00 [place] risk 15:00: 00 Respiratory oxygen Respirator Unknown 2018- Shelby treatments y -09 [place] in home 15:00: 00 Respiratory smoker Respirator Resolve 2018-09-10 Shelby y d 1-09 15:00:00 [place] 15:00: 00 Respiratory lung sounds Respirator Resolve 2018-08-13 Shelby deficit y d 123 15:00:00 [place] 15:00: 00 Integument surgical Integument Resolve 2018-08-20 Shelby wound d 1-23 15:15:00 [place] present 15:00: 00 Neuro anxiety Neuro/Emot Resolve 2018-08-27 Shelby present ion d -23 15:00:00 [place] 15:00: 00 Neuro depressive Neuro/Emot Resolve 2018-08-27 Shelby feelings ion d 23 15:00:00 [place] present 15:00: 00 Musculoskel requires Musculoske Resolve 2018-08-20 Shelby etal human letal d 1-23 15:15:00 [place] assist to 15:00: leave home 00 Integument skin Integument Resolve 2018-08-20 Shelby integrity d 1-30 15:15:00 [place] risk 15:15: 00 Respiratory asthma Respirator Resolve 2018-09-10 Shelby y d 2-06 15:00:00 [place] 15:00: 00 Integument skin Integument Resolve 2018-09-03 Shelby integrity d 2-06 13:15:00 [place] risk 15:00: 00 Neuro depressive Neuro/Emot Resolve 2018-09-17 Shelby feelings ion d 2-13 15:00:00 [place] present 13:15: 00 Safety risk for Safety Active Kezia hospitaliza 2-18 [place] tion 14:00: [id number] 00 Safety can be left Safety Unknown Kezia alone for 2-18 [place] only short 14:00: [id number] periods 00 Pain frequent Pain Mgmt Resolve 2018-09-24 Lam pain d 2-27 15:00:00 Briones 15:50: [id number] 00 Safety can be left Safety Resolve 2018-10-08 Kezia alone for d 3-04 15:00:00 [place] only short 13:00: [id number] periods 00 Cardio edema Cardiovasc Resolve 2018-10-08 Shelby ular d 3-13 15:00:00 [place] 15:00: 00 Social knowledge/s BRISEYDA: Resolve 2018-10-10 [place] Services kill Social d 3-13 16:00:00 [place] deficit - Services 15:00: pt 00 Pain frequent Pain Mgmt Resolve 2018-10-29 Shelby pain d 3-20 13:00:00 [place] 15:00: 00 Respiratory smoker Respirator Resolve 2018-10-15 Shelby y d 3-20 15:00:00 [place] 15:00: 00 Neuro depressive Neuro/Emot Resolve 2018-2018-10-22 Shelby feelings ion d 3-20 15:00:00 [place] present 15:00: 00 Musculoskel requires Musculoske Resolve 2018-10-15 Shelby shen human letal d 3- 15:00:00 [place] assist to 15:00: leave home 00 Elimination nausea/vomi Eliminatio Resolve 2018-10-22 Shelby soni n d 3 15:00:00 [place] 15:00: 00 Medication oral med Meds Resolve 2018-11-05 Shelby yepez d 10-15 13:00:00 [place] required 15:00: 00 Respiratory dyspnea Respirator Unknown 2018- Shelby present y 4-03 [place] 15:00: 00 Respiratory smoker Respirator Resolve 2018-2018-10-29 Shelby y d 4- 13:00:00 [place] 15:00: 00 Neuro anxiety Neuro/Emot Resolve 2018-11-05 Shelby present ion d 4-03 13:00:00 [place] 15:00: 00 Neuro depressive Neuro/Emot Resolve 2018-11-05 Lam feelings ion d 4-08 13:00:00 Briones present 15:45: [id number] 00 Respiratory lung sounds Respirator Resolve 2018-10-29 Shelby deficit y d 4-10 13:00:00 [place] 13:00: 00 Infection s/s of Infection Resolve 2019-02-04 Shelby infection d 4-17 12:30:00 [place] 13:00: 00 Respiratory smoker Respirator Resolve 2018-2018-11-05 Shelby y d 4-17 13:00:00 [place] 13:00: 00 Neuro depressive Neuro/Emot Resolve 2018-12-10 Lam feelings ion d 4-20 12:30:00 Briones present 12:20: [id number] 00 Respiratory smoker Respirator Resolve 2018-2018-11-20 Shelby y d 4-24 12:30:00 [place] 12:30: 00 Respiratory oxygen Respirator Resolve 2018-2018-12-04 Shelby treatments y d 5-08 12:30:00 [place] in home 12:30: 00 Respiratory smoker Respirator Resolve 2018-2019-01-07 Shelby y d 5-08 12:30:00 [place] 12:30: 00 Safety can be left Safety Resolve 2018-12-10 Shelby alone for d 11-26 12:30:00 [place] only short 12:30: periods 00 Social knowledge/s BRISEYDA: Resolve 2018-11-26 [facility] kill Social d 11-26 13:30:00 [place] deficit - Services 13:30: [id number] pt 00 Respiratory lung sounds Respirator Resolve 2018-12-04 Shelby deficit y d 12-04 12:30:00 [place] 12:30: 00 Elimination diarrhea Eliminatio Resolve 2018-12-10 Shelby n d 12-04 12:30:00 [place] 12:30: 00 Social knowledge/s BRISEYDA: Resolve 2019-01-16 Shelby Services kill Social d 12-04 15:00:00 [place] deficit - Services 12:30: pt 00 Pain frequent Pain Mgmt Resolve 2018-12-10 Shelby pain d 12-10 12:30:00 [place] 12:30: 00 Elimination nausea/vomi Eliminatio Resolve 2018-12-31 Lavinia soni n d 12-18 12:30:00 Narendra 12:30: [id number] 00 Respiratory lung sounds Respirator Resolve 2018-12-24 Shelby deficit y d 605 12:30:00 [place] 12:30: 00 Elimination diarrhea Eliminatio Resolve 2018-12-31 Shelby n d 605 12:30:00 [place] 12:30: 00 Cardio hypertensio Cardiovasc Resolve 2019-01-07 Shelby bravo d 6 12:30:00 [place] 12:30: 00 Respiratory lung sounds Respirator Resolve 2018-12-31 Shelby deficit y d 6 12:30:00 [place] 12:30: 00 Respiratory asthma Respirator Resolve 2018-12-31 Shelby trejo d 6 12:30:00 [place] 12:30: 00 Neuro anxiety Neuro/Emot Resolve 2019-01-07 Shelby present ion d 6- 12:30:00 [place] 12:30: 00 Neuro depressive Neuro/Emot Resolve 2019-01-07 Shelby feelings ion d 6-12 12:30:00 [place] present 12:30: 00 Respiratory oxygen [...] lycemia: pt Endo/Jose anti-coagul Endo/Jose Active Shelby ation 6-14 [place] therapy 11:30: 00 Medication oral med Meds Resolve 2019-01-07 Shelby assistance d 6-14 12:30:00 [place] required 11:30: 00 Medication inhalant Meds Resolve 2019-01-07 Shelby med d 6-14 12:30:00 [place] assistance 11:30: required 00 Medication potential Meds Resolve 2019-01-07 Shelby clinically d 6-14 12:30:00 [place] significant 11:30: medication 00 issue Respiratory dyspnea Respirator Resolve 2019-01-08 Hselby present y d 6-19 15:00:00 [place] 12:30: 00 Nutrition nutritional Nutrition Resolve 2019-01-08 Shelby restriction d 6-20 15:00:00 [place] s 15:00: 00 Neuro depressive Neuro/Emot Resolve 2019-02-18 Shelby feelings ion d 6-20 12:10:00 [place] present 15:00: 00 Activity ADL Activity Resolve 2019-02-18 Shelby assistance d 01-08 12:10:00 [place] required 15:00: 00 Musculoskel requires Musculoske Resolve 2019-01-08 Shelby etal human letal d 01-08 15:00:00 [place] assist to 15:00: leave home 00 Respiratory oxygen Respirator Resolve 2019-01-21 Shelby treatments y d 01-14 12:30:00 [place] in home 12:30: 00 Respiratory lung sounds Respirator Resolve 2019-01-21 Shelby deficit y d 01-14 12:30:00 [place] 12:30: 00 Nutrition nutritional Nutrition Resolve 2019-01-14 Shelby restriction d 01-14 12:30:00 [place] s 12:30: 00 Elimination nausea/vomi Eliminatio Resolve 2019-01-21 Shelby ting n d 01-14 12:30:00 [place] 12:30: 00 Musculoskel requires Musculoske Resolve 2019-01-14 Shelby etal human letal d 01-14 12:30:00 [place] assist to 12:30: leave home 00 Social support BRISEYDA: Active Shelby Services deficit Social 01-14 [place] Services 12:30: 00 Nutrition nutritional Nutrition Resolve 2019-01-21 Kezia restriction d 01-16 12:30:00 [place] s 15:00: [id number] 00 Safety can be left Safety Resolve 2019-02-18 Kezia alone for d 01-16 12:10:00 [place] only short 15:00: [id number] periods 00 Respiratory smoker Respirator Resolve 2019-01-21 Shelby y d 01-21 12:30:00 [place] 12:30: 00 Nutrition nutritional Nutrition Resolve 2019-01-21 Shelby risk d 01-21 12:30:00 [place] 12:30: 00 Musculoskel requires Musculoske Resolve 2019-01-28 Shelby etal human letal d 01-21 13:00:00 [place] assist to 12:30: leave home 00 Respiratory smoker Respirator Resolve 2019-01-28 Shelby y d 7-10 13:00:00 [place] 13:00: 00 Respiratory dyspnea Respirator Unknown 2018- Shelby present y 7-10 [place] 13:00: 00 Respiratory oxygen Respirator Unknown 2018- Shelby treatments y 7-10 [place] in home 13:00: 00 Elimination diarrhea Eliminatio Resolve 2019-02-04 Shelby n d 7-10 12:30:00 [place] 13:00: 00 Elimination nausea/vomi Eliminatio Active Shelby soni n 7-10 [place] 13:00: 00 Neuro anxiety Neuro/Emot Resolve 2019-02-18 Shelby present ion d 7-10 12:10:00 [place] 13:00: 00 Social knowledge/s BRISEYDA: Active Shelby Services kill Social 7-10 [place] deficit - Services 13:00: pt 00 Social knowledge/s BRISEYDA: Active [facility] kill Social 7-12 [place] deficit - Services 14:00: [id number] 00 Respiratory lung sounds Respirator Resolve 2019-02-04 Shelby deficit y d 7-17 12:30:00 [place] 12:30: 00 Respiratory oxygen Respirator Resolve 2019-02-04 Shelby treatments y d 7- 12:30:00 [place] in home 12:30: 00 Respiratory smoker Respirator Resolve 2019-02-04 Shelby y d 7-17 12:30:00 [place] 12:30: 00 Musculoskel requires Musculoske Resolve 2019-02-06 Shelby etal human letal d 7- 12:30:00 [place] assist to 12:30: leave home 00 Respiratory oxygen Respirator Resolve 2019-02-06 Shelby treatments y d 7- 12:30:00 [place] in home 12:30: 00 Safety fall risk Safety Resolve 2019-02-11 Shelby factor d 7- 12:30:00 [place] present 12:30: 00 Respiratory oxygen Respirator Resolve 2019-02-11 Shelby treatments y d 7- 12:30:00 [place] in home 12:30: 00 Respiratory smoker Respirator Resolve 2019-02-11 Shelby y d 7 12:30:00 [place] 12:30: 00 Respiratory lung sounds Respirator Resolve 2019-02-18 Shelby deficit y d 7 12:10:00 [place] 12:10: 00 Respiratory dyspnea Respirator Resolve 2019-07-16 Shelby present y d 7 12:30:00 [place] 12:10: 00 Respiratory oxygen Respirator Resolve 2019-02-18 Shelby treatments y d 7 12:10:00 [place] in home 12:10: 00 Neuro depressive Neuro/Emot Unknown Kezia feelings ion 02-18 [place] present 14:30: [id number] Respiratory lung sounds Respirator Resolve 2019-03-04 Shelby deficit y d 8-14 12:20:00 [place] 12:20: 00 Respiratory smoker Respirator Resolve 2019-03-04 Shelby y d 814 12:20:00 [place] 12:20: 00 Respiratory dyspnea Respirator Unknown Shelby present y 8-14 [place] 12:20: 00 Respiratory oxygen Respirator Resolve 2019-03-04 Shelby treatments y d 8-14 12:20:00 [place] in home 12:20: 00 Respiratory smoker Respirator Resolve 2019-03-11 Shelby y d 8-21 12:30:00 [place] 12:30: 00 Respiratory dyspnea Respirator Unknown Shelby present y 8-21 [place] 12:30: 00 Respiratory oxygen Respirator Resolve 2019-03-11 Shelby treatments y d 8-21 12:30:00 [place] in home 12:30: 00 Endo/Jose knowledge/s Endo/Jose Resolve 2019-03-25 Shelby kill d 8-21 12:30:00 [place] deficit: pt 12:30: 00 Elimination constipatio Eliminatio Active Shelby n n 8- [place] 12:30: 00 Safety can be left Safety Resolve 2019-04-29 Kezia alone for d 8-22 12:30:00 [place] only short 15:30: [id number] periods 00 Respiratory smoker Respirator Resolve 2019-03-12 Shelby y d 03-12 16:00:00 [place] 16:00: 00 Respiratory oxygen Respirator Unknown Shelby treatments y 03-12 [place] in home 16:00: 00 Endo/Jose newly Endo/Jose Resolve 2019-07-09 Shelby diagnosed d 03-12 12:15:00 [place] diabetes 16:00: 00 Nutrition nutritional Nutrition [...] Respirator Resolve 2019-03-18 Shelby treatments y d 8 12:30:00 [place] in home 12:30: 00 Respiratory oxygen Respirator Resolve 2019-03-25 Shelby treatments y d 9 12:30:00 [place] in home 12:30: 00 Musculoskel requires Musculoske Resolve 2019-04-01 Shelby etal human letal d 9 12:30:00 [place] assist to 12:30: leave home 00 Respiratory oxygen Respirator Resolve 2019-04-01 Shelby treatments y d 9- 12:30:00 [place] in home 12:30: 00 Respiratory smoker Respirator Resolve 2019-04-01 Shelby y d 9 12:30:00 [place] 12:30: 00 Respiratory smoker Respirator Resolve 2019-04-08 Shelby y d 9 12:30:00 [place] 12:30: 00 Musculoskel requires Musculoske Resolve 2019-04-08 Shelby etal human letal d 04-08 12:30:00 [place] assist to 12:30: leave home 00 Respiratory oxygen Respirator Unknown Shelby treatments y - [place] in home 12:55: 00 Respiratory smoker [...] 13:30: 00 Musculoskel requires Musculoske Resolve 2018-072019-04-22 Shleby etal human letal d 0-02 13:30:00 [place] [...] d 0-14 12:45:00 [place] only short 15:00: [id number] periods 00 Musculoskel requires Musculoske Resolve 2018-072019-05-06 [...] Resolve 2018-072019-06-10 Shelby etal human letal d 120 12:00:00 [place] assist to 12:00: leave home 00 Respiratory oxygen Respirator Resolve 2018-072019-06-17 Shelby treatments y d 08-17 12:00:00 [place] in home 12:00: 00 Respiratory smoker Respirator Resolve 2018-072019-06-17 Shelby y d 08-17 12:00:00 [place] 12:00: 00 Musculoskel requires Musculoske Resolve 2018-072019-06-24 Shelby etal human letal d 08-17 11:55:00 [place] assist to 12:00: leave home 00 Respiratory oxygen Respirator Resolve 2018-072019-06-24 Shelby treatments y d 2-04 11:55:00 [place] in home 11:55: 00 Respiratory smoker Respirator Resolve 2018-072019-06-24 Shelby y d 2-04 11:55:00 [place] 11:55: 00 Respiratory oxygen Respirator Resolve 2018-072019-07-09 Shelby treatments y d 2-11 12:15:00 [place] in home 12:00: 00 Respiratory lung sounds Respirator Resolve 2018-072019-07-09 Shelby deficit y d 2-11 12:15:00 [place] 12:00: 00 Respiratory pneumonia Respirator Resolve 2018-072019-07-09 Shelby y d 2-11 12:15:00 [place] 12:00: 00 Respiratory smoker Respirator Resolve 2018-072019-07-01 Shelby y d 2-11 12:00:00 [place] 12:00: 00 Musculoskel requires Musculoske Resolve 2018-072019-07-01 Shelby etal human letal d 2-11 12:00:00 [place] assist to 12:00: leave home 00 Safety can be left Safety Active 2018-07 Kezia fraire for 09-02 [place] only short 15:30: [id number] periods 00 Respiratory smoker Respirator Resolve 2018-072019-07-09 Shelby y d 2-19 12:15:00 [place] 12:15: 00 Musculoskel requires Musculoske Resolve 2018-072019-07-16 Shelby etal human letal d 2-19 12:30:00 [place] assist to 12:15: leave home 00 Respiratory oxygen Respirator Resolve 2018-072019-07-16 Shelby trejo d 09-16 12:30:00 [place] in home 12:30: 00 Respiratory smoker Respirator Resolve 2018-072019-07-16 Shelby trejo d 09-16 12:30:00 [place] 12:30: 00 Allergies, Adverse Reactions, Alerts Allergy Allergy Status Severity Reaction(s) Onset Inactive Treating Comments Name Type Date Date Clinician phenergan Unknown Active Unknown Reaction Ernestine Unknown 3-23 (Robert) [place] [id number] effexor Unknown Active Unknown Reaction Ernestine Unknown 3-23 (Robert) [place] [id number] compazine Unknown Active Unknown Reaction Ernestine Unknown 3-23 (Robert) [place] [id number] adhesive Unknown Active Unknown Reaction Ernestine tape Unknown 3-23 (Robert) [place] [id number] milk Unknown Active Unknown Reaction Ernestine Unknown 3-23 (Robert) [place] [id number] prochlorper Base Active Unknown extrapyramidal 2017-07 [place] azine Ingredient symptoms -19 Dilip venlafaxine Base Active Severe Hives, 2017-07 [place] Ingredient difficulty - Dilip breathing, itching promethazin Base Active Unknown extrapyramidal 2017-07 [place] e Ingredient symptoms - Dilip Gadolinium- Allergen [...] Vitamin D3 2017-07- No Liz Unknown Unknown 25 mcg 25 mcg 08-16 Jill CARRENO (1,000 (1,000 unit) unit) tablet tablet Lupron Lupron 2017-07 No Liz [...] inhaler oxyCODONE 5 oxyCODONE 5 2018- No Lzi Unknown Unknown mg tablet mg tablet 08-01 [...] MD,Jill tablet tablet Xarelto 20 Xarelto 20 2017-07- No Liz Unknown Unknown mg tablet mg tablet 08-16 12 ,Jill traZODone traZODone 2017-07- No Liz Unknown Unknown 100 mg 100 mg 1-26 09-25 ,Jill tablet tablet gabapentin gabapentin 2018- No Liz Unknown Unknown 300 mg 300 mg 03-31 ,Jill capsule capsule DULoxetine DULoxetine No Liz Unknown Unknown 30 mg 30 mg 04-08 MD,Jill capsule,del capsule,del ayed ayed release release flurazepam flurazepam No Liz Unknown Unknown 15 mg 15 mg 04-08 MD,Jill capsule capsule gabapentin gabapentin 2018- No Liz Unknown Unknown 300 mg 300 mg 04-08 MD,Jill capsule capsule gabapentin gabapentin 2018- No Liz Unknown Unknown 300 mg 300 mg 04-08 ,Jill capsule capsule traZODone traZODone No Liz Unknown Unknown 100 mg 100 mg 04-15 ,Jill tablet tablet Augmentin Augmentin 2018-07- Yes Liz Unknown Unknown 875 mg-125 875 mg-125 005-01 Jill CARRENO mg tablet mg tablet Kadcyla 100 Kadcyla 100 2018-07 Yes Liz Unknown Unknown mg mg 0-03 Jill CARRENO intravenous intravenous solution solution sulfacetami sulfacetami 2018-07 Yes Liz Unknown Unknown de sodium de sodium 08-05 ,Jill 10 % eye 10 % eye drops drops gabapentin gabapentin 2018-07 Yes Liz Unknown Unknown 600 mg 600 mg 08-05 ,Jill tablet tablet dronabinol dronabinol 2018-07 Yes Liz Unknown Unknown 5 mg 5 mg 08-10 MD,Jill capsule capsule Levaquin Levaquin 2018-07- Yes Liz Unknown Unknown 750 mg 750 mg 09-01 Jill CARRENO tablet tablet dexAMETHaso dexAMETHaso 2018-07 Yes Liz Unknown Unknown ne 2 mg ne 2 mg 2-17 ,Jill tablet tablet Xarelto 20 Xarelto 20 2018-07 Yes Liz Unknown Unknown mg tablet mg tablet 217 Jill CARRENO Vital Signs Vital Name Observation Time Observation Value Comments SYSTOLIC mm[Hg] 2019-07-16 18:09:33 118 mm[Hg] mm[Hg] Method: Sit SYSTOLIC mm[Hg] 2019-04-08 18:07:54 118 mm[Hg] mm[Hg] Method: Stand SYSTOLIC mm[Hg] 2019-07-09 18:09:26 115 mm[Hg] mm[Hg] Method: Lie DIASTOLIC mm[Hg] 2019-07-16 18:09:33 64 mm[Hg] mm[Hg] Method: Sit DIASTOLIC mm[Hg] 2019-04-08 18:07:54 80 mm[Hg] mm[Hg] Method: Stand DIASTOLIC mm[Hg] 2019-07-09 18:09:26 70 mm[Hg] mm[Hg] Method: Lie PULSE 2019-07-16 18:09:33 83 /min /min RESP RATE 2019-07-16 18:09:33 16 /min /min TEMP 2019-07-16 18:09:33 97.4 [degF] Procedures This patient has no known procedures. Results This patient has no known results.
--- OUTSIDE RECORDS SUMMARY | 2019-07-23 18:26 | XMS REPORT ---
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, disorder, recurrent, recurrent, unspecified unspecified Anxiety Anxiety Diagnosis Active [place] disorder, disorder, [place] unspecified unspecified Pain frequent Pain Mgmt Resolve 2017-072018-08-27 Love pain d 08-16 15:00:00 [place] 10:20: [id number] 00 Respiratory smoker Respirator Resolve 2017-072018-07-23 Love y d 08-16 15:00:00 [place] 10:20: [id number] 00 Endo/Jose anti-coagul Endo/Jose Resolve 2017-072018-06-25 Love ation d 08-16 15:00:00 Carly therapy 10:20: [id number] 00 Nutrition nutritional Nutrition Resolve 2017-072018-07-04 Love restriction d 08-16 15:00:00 [place] s 10:20: [id number] 00 Neuro confusion Neuro/Emot Resolve 2017-072018-08-06 Love present ion d 08-16 15:00:00 Carly 10:20: [id number] 00 Neuro anxiety Neuro/Emot Resolve 2017-072018-08-06 Love present ion d 08-16 15:00:00 Carly 10:20: [id number] 00 Neuro depressive Neuro/Emot Resolve 2017-072018-08-06 Love feelings ion d 08-16 15:00:00 [place] present 10:20: [id number] 00 Safety risk for Safety Resolve 2017-072018-07-04 Love hospitaliza d 08-16 15:00:00 [place] tion 10:20: [id number] 00 Safety fall risk Safety Resolve 2017-072018-07-04 Ericka factor d 08-16 15:00:00 Vivian present 10:20: 00 Musculoskel requires Musculoske Resolve 2017-072018-07-04 Love etal human letal d 08-16 15:00:00 [place] assist to 10:20: [id number] leave home 00 Cardio hypertensio Cardiovasc Resolve [...] resource Social 2-10 [place] deficit Services 14:00: [id number] 00 Social knowledge/s BRISEYDA: Resolve 2017-072018-09-22 Kezia Services kill Social d 2-10 13:00:00 [place] deficit - Services 14:00: [id number] pt 00 Social knowledge/s BRISEYDA: Resolve 2017-072018-09-22 Kezia Services kill Social d 2-10 13:00:00 [place] deficit - Services 14:00: [id number] cg 00 Musculoskel requires Musculoske Resolve 2017-072018-07-16 Shelby etal human letal d 2-19 15:00:00 [place]le[place] assist to 15:30: leave home 00 Diagnoses knowledge/s Diagnoses Active 2017-07 Kezia kill 2-24 [place] deficit: cg 13:00: [id number] 00 Integument skin Integument Resolve 2017-072018-08-06 Shelby [...] Active Kezia hospitaliza 2-18 [place] tion 14:00: [id number] 00 Safety can be left Safety Unknown Kezia alone for 2-18 [place] only short 14:00: [id number] periods 00 Pain frequent Pain Mgmt Resolve 2018-09-24 Lam pain d 2-27 15:00:00 Briones 15:50: [id number] 00 Safety can be left Safety Resolve 2018-10-08 Kezia alone for d 3-04 15:00:00 [place] only short 13:00: [id number] periods 00 Cardio edema Cardiovasc Resolve 2018-10-08 [...] home 00 Elimination nausea/vomi Eliminatio Resolve 2018-10-22 Shelyb soni n d 3 15:00:00 [place]le[place] 15:00: [...] ion d 4-08 13:00:00 Briones present 15:45: [id number] 00 Respiratory lung sounds Respirator Resolve 2018-10-29 Shelby deficit y d 4-10 13:00:00 [place]le[place] 13:00: 00 Infection s/s of Infection Resolve 2019-02-04 Shelby infection d 4-17 12:30:00 [place] 13:00: 00 Respiratory smoker Respirator Resolve 2018-2018-11-05 Shelby y d 4-17 13:00:00 [place] 13:00: 00 Neuro depressive Neuro/Emot Resolve 2018-12-10 Lam feelings ion d 4-20 12:30:00 Briones present 12:20: [id number] 00 Respiratory smoker Respirator Resolve 2018-2018-11-20 Shelby [...] 11-26 13:30:00 [place] deficit - Services 13:30: [id number] pt 00 Respiratory lung sounds Respirator Resolve [...] 00 Elimination nausea/vomi Eliminatio Resolve 2018-12-31 Lavinia soin n d 12-18 12:30:00 Narendra 12:30: [id number] 00 Respiratory lung sounds Respirator Resolve 2018-12-24 [...] Respirator Resolve 2019-01-08 Shelby present y d 6-19 15:00:00 [place] 12:30: [...] restriction d 01-16 12:30:00 [place] s 15:00: [id number] 00 Safety can be left Safety Resolve 2019-02-18 Kezia alone for d 01-16 12:10:00 [place] only short 15:00: [id number] periods 00 Respiratory smoker Respirator Resolve 2019-01-21 [...] Social 7-12 [place] deficit - Services 14:00: [id number] 00 Respiratory lung sounds Respirator Resolve 2019-02-04 [...] smoker Respirator Resolve 2019-02-11 Shelby y d 724 12:30:00 [place] 12:30: 00 Respiratory lung sounds Respirator Resolve 2019-02-18 Shelby deficit y d 7 12:10:00 [place] 12:10: 00 Respiratory dyspnea Respirator Active Shelby present y 02-18 [place] 12:10: 00 Respiratory oxygen Respirator Resolve 2019-02-18 Shelby treatments y d 7 12:10:00 Vallely in home 12:10: 00 Neuro depressive Neuro/Emot Unknown Kezia feelings ion 02-18 [place] present 14:30: [id number] 00 Respiratory lung sounds Respirator Resolve 2019-03-04 [...] d 8-22 12:30:00 [place] only short 15:30: [id number] periods 00 Respiratory smoker Respirator Resolve 2019-03-12 [...] 00 Musculoskel requires Musculoske Resolve 2018-072019-04-22 Shelby ageel human letal d 0-02 13:30:00 [place]le[place] assist [...] d 0-14 12:45:00 [place] only short 15:00: [id number] periods 00 Musculoskel requires Musculoske Resolve 2018-072019-05-06 [...] 00 Musculoskel requires Musculoske Resolve 2018-072019-06-24 Shelby ageel human letal d 1-27 11:55:00 [place]le[place] assist [...] 00 Musculoskel requires Musculoske Resolve 2018-072019-07-01 Shelby ageel human letal d 2-11 12:00:00 [place]le[place] assist to 12:00: leave home 00 Safety can be left Safety Active 2018-07 Kezia alone for 2-12 [place] only short 15:30: [id number] periods Respiratory smoker Respirator Resolve 2018-072019-07-09 Shelby y d 2-19 12:15:00 [place] 12:15: 00 Musculoskel requires Musculoske Active 2018-07 Shelby etal human letal 2- Vallely assist to 12:15: leave home 00 Allergies, Adverse Reactions, Alerts Allergy Allergy Status Severity Reaction(s) Onset Inactive Treating Comments Name Type Date Date Clinician phenergan Unknown Active Unknown Reaction Ernestine Unknown 3-23 (Robert) [place] [id number] effexor Unknown Active Unknown Reaction Ernestine Unknown 3-23 (Robert) [place] [id number] compazine Unknown Active Unknown Reaction Ernestine Unknown 3-23 ([place]) [place] [id number] adhesive Unknown Active Unknown Reaction Ernestine tape Unknown 3-23 ([place]) [place] [id number] milk Unknown Active Unknown Reaction Ernestine Unknown 3-23 ([place]) [place] [id number] prochlorper Base Active Unknown extrapyramidal 2017-07 [place] azine Ingredient symptoms - Dilip venlafaxine Base Active Severe Hives, 2017-07 [place] Ingredient difficulty 08-09 Dilip breathing, itching promethazin Base Active Unknown extrapyramidal 2017-07 [place] e Ingredient symptoms 08-09 Dilip Gadolinium- Allergen [...] Unknown Unknown mg tablet mg tablet 08-16 ,Augustoomir SUMAtriptan SUMAtriptan No Stevanovic 50 mg Unknown [...] hr oxygen oxygen No Stevanovic 2 Unknown ,Augustoompablo liters ondansetron ondansetron 2017-07 No Liz Unknown [...] Unknown Unknown 25 mcg 25 mcg 08-16 05- Jill CARRENO (1,000 (1,000 unit) unit) tablet [...] Unknown Unknown 30 mg 30 mg 08-16 ,Jill capsule,del capsule,del ayed ayed release release [...] Unknown sulfate HFA sulfate HFA 09-16 Jill CRARENO 90 90 mcg/actuati mcg/actuati on aerosol on [...] Liz Unknown Unknown 10 mg 10 mg 11-19 ,Jill tablet tablet nyquil nyquil No Liz [...] mg 03-31 MD,Jill capsule capsule DULoxetine DULoxetine No Liz Unknown Unknown 30 mg 30 mg 04-08 MD,Jill capsule,del capsule,del ayed ayed release release flurazepam flurazepam No Liz Unknown Unknown 15 mg 15 mg - MD,Jill capsule capsule gabapentin gabapentin 2018- No Liz Unknown Unknown 300 mg 300 mg 04-08- ,Jill capsule capsule gabapentin gabapentin 2018- No Liz [...] Liz Unknown Unknown de sodium de sodium - ,Jill 10 % eye 10 % eye drops drops gabapentin gabapentin 2018-07 Yes Liz Unknown Unknown 600 mg 600 mg -15 ,Jill tablet tablet dronabinol dronabinol 2018-07 Yes Liz Unknown Unknown 5 mg 5 mg -20 ,Jill capsule capsule Levaquin Levaquin 2018-07 2019- Yes Liz Unknown Unknown 750 mg 750 mg 09-01- ,Jill tablet tablet dexAMETHaso dexAMETHaso 2018-07 Yes Liz Unknown Unknown ne 2 mg ne 2 mg 2- ,Jill tablet tablet Xarelto 20 Xarelto 20 2018-07 Yes Liz Unknown Unknown mg tablet mg tablet 2-17 Jill CARRENO Vital Signs Vital Name Observation [...]
--- OUTSIDE RECORDS SUMMARY | 2019-07-23 18:26 | XMS REPORT ---
:1975 Author Organization [facility] Care Team Providers Name Role [...] Resolve 2017-072018-08-27 Love pain d 08-16 15:00:00 Regan 10:20: [id number] 00 Respiratory smoker Respirator Resolve 2017-072018-07-23 Love y d 08-16 15:00:00 Regan 10:20: [id number] 00 Endo/Jose anti-coagul Endo/Jose Resolve 2017-072018-06-25 Love ation d 08-16 15:00:00 Carly therapy 10:20: [id number] 00 Nutrition nutritional Nutrition Resolve 2017-072018-07-04 Love restriction d 08-16 15:00:00 Regan s 10:20: [id number] 00 Neuro confusion Neuro/Emot Resolve 2017-072018-08-06 Love present ion d 08-16 15:00:00 Carly 10:20: [id number] 00 Neuro anxiety Neuro/Emot Resolve 2017-072018-08-06 Love present ion d 08-16 15:00:00 Carly 10:20: [id number] 00 Neuro depressive Neuro/Emot Resolve 2017-072018-08-06 Love feelings ion d 08-16 15:00:00 Regan present 10:20: [id number] 00 Safety risk for Safety Resolve 2017-072018-07-04 Love hospitaliza d 08-16 15:00:00 Regan tion 10:20: [id number] 00 Safety fall risk Safety Resolve 2017-072018-07-04 Ericka factor d 08-16 15:00:00 Vivian present 10:20: 00 Musculoskel requires Musculoske Resolve 2017-072018-07-04 Love etal human letal d 08-16 15:00:00 Regan assist to 10:20: [id number] leave home 00 Cardio hypertensio Cardiovasc Resolve [...] resource Social 2-10 [place] deficit Services 14:00: [id number] 00 Social knowledge/s BRISEYDA: Resolve 2017-072018-09-22 Kezia Services kill Social d 2-10 13:00:00 [place] deficit - Services 14:00: [id number] pt 00 Social knowledge/s BRISEYDA: Resolve 2017-072018-09-22 Kezia Services kill Social d 2-10 13:00:00 [place] deficit - Services 14:00: [id number] cg 00 Musculoskel requires Musculoske Resolve 2017-072018-07-16 Shelby etal human letal d 2-19 15:00:00 Vallely assist to 15:30: leave home 00 Diagnoses knowledge/s Diagnoses Active 2017-07 Kezia kill 2-24 [place] deficit: cg 13:00: [id number] 00 Integument skin Integument Resolve 2017-072018-08-06 Shelby [...] Active Kezia hospitaliza 2-18 [place] tion 14:00: [id number] 00 Safety can be left Safety Unknown Kezia alone for 2-18 [place] only short 14:00: [id number] periods 00 Pain frequent Pain Mgmt Resolve 2018-09-24 Lam pain d 2-27 15:00:00 Briones 15:50: [id number] 00 Safety can be left Safety Resolve 2018-10-08 Kezia alone for d 3-04 15:00:00 [place] only short 13:00: [id number] periods 00 Cardio edema Cardiovasc Resolve 2018-10-08 [...] ion d 4-08 13:00:00 Briones present 15:45: [id number] 00 Respiratory lung sounds Respirator Resolve 2018-10-29 Shelby deficit y d 4-10 13:00:00 Vallely 13:00: 00 Infection s/s of Infection Resolve 2019-02-04 Shelby infection d 4-17 12:30:00 Vallely 13:00: 00 Respiratory smoker Respirator Resolve 2018-2018-11-05 Shelby y d 4-17 13:00:00 [place]le[place] 13:00: 00 Neuro depressive Neuro/Emot Resolve 2018-12-10 Lam feelings ion d 4-20 12:30:00 Briones present 12:20: [id number] 00 Respiratory smoker Respirator Resolve 2018-2018-11-20 Shelby [...] 11-26 13:30:00 [place] deficit - Services 13:30: [id number] pt 00 Respiratory lung sounds Respirator Resolve [...] soni n d 12-18 12:30:00 Narendra 12:30: [id number] 00 Respiratory lung sounds Respirator Resolve 2018-12-24 [...] restriction d 01-16 12:30:00 [place] s 15:00: [id number] 00 Safety can be left Safety Resolve 2019-02-18 Kezia alone for d 01-16 12:10:00 [place] only short 15:00: [id number] periods 00 Respiratory smoker Respirator Resolve 2019-01-21 [...] Social 7-12 [place] deficit - Services 14:00: [id number] 00 Respiratory lung sounds Respirator Resolve 2019-02-04 [...] Kezia feelings ion 02-18 [place] present 14:30: [id number] 00 Respiratory lung sounds Respirator Resolve 2019-03-04 [...] d 8-22 12:30:00 [place] only short 15:30: [id number] periods 00 Respiratory smoker Respirator Resolve 2019-03-12 [...] 12:30: 00 Musculoskel requires Musculoske Resolve 2018-072019-04-29 Shelyb etal human letal d 0-09 12:30:00 Vallely assist to 12:30: leave home 00 Safety can be left Safety Resolve 2018-072019-06-03 Kezia alone for d 0-14 12:45:00 [place] only short 15:00: [id number] periods 00 Musculoskel requires Musculoske Resolve 2018-072019-05-06 [...] alone for 2-12 [place] only short 15:30: [id number] periods Respiratory smoker Respirator Resolve 2018-072019-07-09 Shelby y d 2-19 12:15:00 [place]le[place] 12:15: 00 Musculoskel requires Musculoske Active 2018-07 Shelby etal human letal 2- Vallely assist to 12:15: leave home 00 Allergies, Adverse Reactions, Alerts Allergy Allergy Status Severity Reaction(s) Onset Inactive Treating Comments Name Type Date Date Clinician phenergan Unknown Active Unknown Reaction Ernestine Unknown 3-23 (Robert) [place] [id number] effexor Unknown Active Unknown Reaction Ernestine Unknown 3-23 (Robert) [place] [id number] compazine Unknown Active Unknown Reaction Ernestine Unknown 3-23 (Robert) [place] [id number] adhesive Unknown Active Unknown Reaction Ernestine tape Unknown 3-23 (Robert) [place] [id number] milk Unknown Active Unknown Reaction Ernestine Unknown 3-23 (Robert) [place] [id number] prochlorper Base Active Unknown extrapyramidal 2017-07 [place] azine Ingredient symptoms - Dilip venlafaxine Base Active Severe Hives, 2017-07 [place] Ingredient difficulty 08-09 Dilip breathing, itching promethazin Base Active Unknown extrapyramidal 2017-07 [place] e Ingredient symptoms 08-09 Dilip Gadolinium- Allergen Active Severe Anaphylaxis Shelby Containing Group 04-16 Vallely Contrast Media Medications Ordered Filled Start Stop Current Ordering Indication Dosage Frequency Signature Comments Components Medication Medication Date Date Medication? Clinician (SIG) Name Name ALPRAZolam ALPRAZolam 2017-07 No Liz Unknown Unknown 1 mg tablet 1 mg tablet 08-16 Jill ACRRENO Aspirin Low Aspirin Low No Stevanovic 81 [...] ,Jill tablet tablet amoxicillin amoxicillin 2018- No Ilz Unknown Unknown [id number] 12-16 ,Jill mg-potassiu [...]
--- OUTSIDE RECORDS SUMMARY | 2019-07-23 18:27 | XMS REPORT ---
:1975 Author Organization [facility] Care Team Providers Name Role Phone Unavailable [...]
--- OUTSIDE RECORDS SUMMARY | 2019-07-23 18:27 | XMS REPORT ---
:1975 Author Organization [facility] Care Team Providers Name Role Phone [...] Resolve 2017-072018-08-27 Love pain d 08-16 15:00:00 [place] 10:20: [id number] 00 Respiratory smoker Respirator Resolve 2017-072018-07-23 Love y d 08-16 15:00:00 [place] 10:20: [id number] 00 Endo/Jose anti-coagul Endo/Jose Resolve 2017-072018-06-25 Love ation d 08-16 15:00:00 Carly therapy 10:20: [id number] 00 Nutrition nutritional Nutrition Resolve 2017-072018-07-04 Love restriction d 08-16 15:00:00 [place] s 10:20: [id number] 00 Neuro confusion Neuro/Emot Resolve 2017-072018-08-06 Love present ion d 08-16 15:00:00 Carly 10:20: [id number] 00 Neuro anxiety Neuro/Emot Resolve 2017-072018-08-06 Love present ion d 08-16 15:00:00 Carly 10:20: [id number] 00 Neuro depressive Neuro/Emot Resolve 2017-072018-08-06 Love feelings ion d 08-16 15:00:00 [place] present 10:20: [id number] 00 Safety risk for Safety Resolve 2017-072018-07-04 Love hospitaliza d 08-16 15:00:00 [place] tion 10:20: [id number] 00 Safety fall risk Safety Resolve 2017-072018-07-04 Ericka factor d 08-16 15:00:00 Vivian present 10:20: 00 Musculoskel requires Musculoske Resolve 2017-072018-07-04 Love etal human letal d 08-16 15:00:00 [place] assist to 10:20: [id number] leave home 00 Cardio hypertensio Cardiovasc Resolve [...] resource Social 2-10 [place] deficit Services 14:00: [id number] 00 Social knowledge/s BRISEYDA: Resolve 2017-072018-09-22 Kezia Services kill Social d 2-10 13:00:00 [place] deficit - Services 14:00: [id number] pt 00 Social knowledge/s BRISEYDA: Resolve 2017-072018-09-22 Kezia Services kill Social d 2-10 13:00:00 [place] deficit - Services 14:00: [id number] cg 00 Musculoskel requires Musculoske Resolve 2017-072018-07-16 Shelby etal human letal d 2-19 15:00:00 Vallely assist to 15:30: leave home 00 Diagnoses knowledge/s Diagnoses Active 2017-07 Kezia kill 2-24 [place] deficit: cg 13:00: [id number] 00 Integument skin Integument Resolve 2017-072018-08-06 Shelby [...] Active Kezia hospitaliza 2-18 [place] tion 14:00: [id number] 00 Safety can be left Safety Unknown Kezia alone for 2-18 [place] only short 14:00: [id number] periods 00 Pain frequent Pain Mgmt Resolve 2018-09-24 Lam pain d 2-27 15:00:00 Briones 15:50: [id number] 00 Safety can be left Safety Resolve 2018-10-08 Kezia alone for d 3-04 15:00:00 [place] only short 13:00: [id number] periods 00 Cardio edema Cardiovasc Resolve 2018-10-08 [...] ion d 4-08 13:00:00 Briones present 15:45: [id number] 00 Respiratory lung sounds Respirator Resolve 2018-10-29 Shelby deficit y d 4-10 13:00:00 [place]le[place] 13:00: 00 Infection s/s of Infection Resolve 2019-02-04 Shelby infection d 4-17 12:30:00 Valle[place] 13:00: 00 Respiratory smoker Respirator Resolve 2018-2018-11-05 Shelby y d 4-17 13:00:00 [place]le[place] 13:00: 00 Neuro depressive Neuro/Emot Resolve 2018-12-10 Lam feelings ion d 4-20 12:30:00 Briones present 12:20: [id number] 00 Respiratory smoker Respirator Resolve 2018-2018-11-20 Shelby [...] 11-26 13:30:00 [place] deficit - Services 13:30: [id number] pt 00 Respiratory lung sounds Respirator Resolve [...] soni n d 12-18 12:30:00 Narendra 12:30: [id number] 00 Respiratory lung sounds Respirator Resolve 2018-12-24 [...] restriction d 01-16 12:30:00 [place] s 15:00: [id number] 00 Safety can be left Safety Resolve 2019-02-18 Kezia alone for d 01-16 12:10:00 [place] only short 15:00: [id number] periods 00 Respiratory smoker Respirator Resolve 2019-01-21 [...] Social 7-12 [place] deficit - Services 14:00: [id number] 00 Respiratory lung sounds Respirator Resolve 2019-02-04 [...] Vallely 12:10: 00 Respiratory dyspnea Respirator Resolve 2019-07-01 Shelby present y d 7 12:00:00 [place]le[place] 12:10: 00 Respiratory oxygen Respirator Resolve 2019-02-18 Shelby treatments y d 7 12:10:00 Vallely in home 12:10: 00 Neuro depressive Neuro/Emot Unknown Kezia feelings ion 02-18 [place] present 14:30: [id number] 00 Respiratory lung sounds Respirator Resolve 2019-03-04 [...] d 8-22 12:30:00 [place] only short 15:30: [id number] periods 00 Respiratory smoker Respirator Resolve 2019-03-12 [...] d 0-14 12:45:00 [place] only short 15:00: [id number] periods 00 Musculoskel requires Musculoske Resolve 2018-072019-05-06 [...] home 00 Respiratory oxygen Respirator Resolve 2018-072019-05-27 Shelyb treatments y d 1-06 12:25:00 Vallely in [...] Resolve 2018-072019-06-24 Shelby etal human letal d 127 11:55:00 Valle[place] assist to 12:00: leave home 00 Respiratory oxygen Respirator Resolve 2018-072019-06-24 Shelby treatments y d 2-04 11:55:00 Vallely in home 11:55: 00 Respiratory smoker Respirator Resolve 2018-072019-06-24 Shelby y d 2-04 11:55:00 [place] 11:55: 00 Respiratory oxygen Respirator Active 2018- Shelby treatments y 2-11 Vallely in home 12:00: 00 Respiratory lung sounds Respirator Active 2018- Shelby deficit y 2-11 Valle[place] 12:00: 00 Respiratory pneumonia Respirator Active 2018- Shelby y 2-11 [place] 12:00: 00 Respiratory smoker Respirator Resolve 2018-072019-07-01 Shelby y d 2-11 12:00:00 Vallely 12:00: 00 Musculoskel requires Musculoske Resolve 2018-072019-07-01 Shelby etal human letal d 2-11 12:00:00 Vallely assist to 12:00: leave home 00 Safety can be left Safety Active 2018- Kezia alone for 2-12 [place] only short 15:30: [id number] periods 00 Allergies, Adverse Reactions, Alerts Allergy Allergy Status Severity Reaction(s) Onset Inactive Treating Comments Name Type Date Date Clinician phenergan Unknown Active Unknown Reaction Ernestine Unknown 3-23 (Robert) [place] [id number] effexor Unknown Active Unknown Reaction Ernestine Unknown 3-23 (Robert) [place] [id number] compazine Unknown Active Unknown Reaction Ernestine Unknown 3-23 (Robert) [place] [id number] adhesive Unknown Active Unknown Reaction Ernestine tape Unknown 10-11 (Robert) [place] [id number] milk Unknown Active Unknown Reaction Ernestine Unknown 3- (Robert) [place] [id number] prochlorper Base Active Unknown extrapyramidal 2017-07 [place] azine Ingredient symptoms 08-09 Dilip venlafaxine Base Active Severe Hives, 2017-07 [place] Ingredient difficulty 08-09 Dilip breathing, itching promethazin Base Active Unknown extrapyramidal 2017-07 [place] e Ingredient symptoms 08-09 Dilip Gadolinium- Allergen [...] Liz Unknown Unknown 30 mg 30 mg 08-16-18 ,Jill capsule,del capsule,del ayed ayed release release anastrozole anastrozole 2017-07- No Liz Unknown Unknown 1 mg tablet 1 mg tablet 08-16 Jill CARRENO Soma 250 mg Soma 250 mg 2017-07- No Liz Unknown Unknown tablet tablet 08-16 ,Jill fentaNYL fentaNYL 2017-07- No Liz Unknown Unknown 100 mcg/hr 100 mcg/hr 08-22 Jill CARRENO transdermal transdermal patch patch AirDuo AirDuo 2017-07- No Liz Unknown Unknown RespiClick RespiClick 08-20 Jill CARRENO 113 mcg-14 113 mcg-14 mcg/actuati mcg/actuati on breath on breath activated activated fluconazole fluconazole 2017-07- No Liz Unknown Unknown 200 mg 200 mg 08-24 ,Jill tablet tablet Bactrim DS Bactrim DS 2017-07- [...] No Liz Unknown Unknown tablet tablet 08-06 ,Jill Nyamyc Nyamyc No Liz Unknown Unknown 100,000 100,000 - Jill CARRENO unit/gram unit/gram topical topical powder powder fluconazole fluconazole 2018- No Liz Unknown Unknown 100 mg 100 mg 08-02 ,Jill tablet tablet levoFLOXaci levoFLOXaci 2018- No Liz [...] Unknown ol 750 mg ol 750 mg 4 04-10 ,Jill tablet tablet pantoprazol pantoprazol No Liz [...] mg tablet tablet oxyCODONE oxyCODONE 2018- No Ilz Unknown Unknown 10 mg 10 mg 11-19- [...] Liz Unknown Unknown 20 mg 20 mg 01-01-15 ,Jill tablet tablet Zithromax Zithromax 2018- No Liz Unknown Unknown 250 mg 250 mg 01-01-16 ,Jill tablet tablet oxygen oxygen 2018- No Liz Unknown Unknown 01-01 ,Jill flurazepam flurazepam 2018- No Liz Unknown Unknown 30 mg 30 mg 01-01 ,Jill capsule capsule oxygen oxygen No Liz Unknown Unknown 01-06 ,Jill glyBURIDE glyBURIDE 2018- No Liz Unknown Unknown 2.5 mg 2.5 mg 6-18 06-25 MD,Jill tablet tablet glyBURIDE glyBURIDE 2018- No [...] 5 mg 1-20 Jill CARRENO capsule capsule Levaquin Levaquin 2018-07- Yes Liz Unknown Unknown 750 mg 750 mg 09-01 ,Jill tablet tablet Vital Signs Vital Name Observation Time Observation Value Comments SYSTOLIC mm[Hg] 2019-04-08 18:07:54 118 mm[Hg] mm[Hg] Method: Stand SYSTOLIC mm[Hg] 2019-07-01 18:09:18 132 mm[Hg] mm[Hg] Method: Lie DIASTOLIC mm[Hg] 2019-04-08 18:07:54 80 mm[Hg] mm[Hg] Method: Stand DIASTOLIC mm[Hg] 2019-07-01 18:09:18 60 mm[Hg] mm[Hg] Method: Lie RESP RATE 2019-07-01 18:09:18 16 /min /min Procedures This patient has no known procedures. Results This patient has no known results.
--- OUTSIDE RECORDS SUMMARY | 2019-07-23 18:27 | XMS REPORT ---
[...] Resolve 2017-072018-08-27 Love pain d 08-16 15:00:00 [place] 10:20: [id number] 00 Respiratory smoker Respirator Resolve 2017-072018-07-23 Love y d 08-16 15:00:00 [place] 10:20: [id number] 00 Endo/Jose anti-coagul Endo/Jose Resolve 2017-072018-06-25 Love ation d 08-16 15:00:00 Carly therapy 10:20: [id number] Nutrition nutritional Nutrition Resolve 2017-072018-07-04 Love restriction d 08-16 15:00:00 [place] s 10:20: [id number] Neuro confusion Neuro/Emot Resolve 2017-072018-08-06 Love present ion d 08-16 15:00:00 C[place] 10:20: [id number] 00 Neuro anxiety Neuro/Emot Resolve 2017-072018-08-06 Love present ion d 08-16 15:00:00 [place] 10:20: [id number] Neuro depressive Neuro/Emot Resolve 2017-072018-08-06 Love feelings ion d 08-16 15:00:00 [place] present 10:20: [id number] Safety risk for Safety Resolve 2017-072018-07-04 Love hospitaliza d 08-16 15:00:00 [place] tion 10:20: [id number] 00 Safety fall risk Safety Resolve 2017-072018-07-04 Ericka factor d 08-16 15:00:00 Vivian present 10:20: 00 Musculoskel requires Musculoske Resolve 2017-072018-07-04 Love etal human letal d 08-16 15:00:00 [place] assist to 10:20: [id number] leave home 00 Cardio hypertensio Cardiovasc Resolve [...] resource Social 2-10 [place] deficit Services 14:00: [id number] 00 Social knowledge/s BRISEYDA: Resolve 2017-072018-09-22 [place] Services kill Social d 2-10 13:00:00 [place] deficit - Services 14:00: [id number] pt 00 Social knowledge/s BRISEYDA: Resolve 2017-072018-09-22 [facility] Services kill Social d 2-10 13:00:00 [place] deficit - Services 14:00: [id number] cg 00 Musculoskel requires Musculoske Resolve 2017-072018-07-16 [place] etal human letal d 2-19 15:00:00 [place] assist to 15:30: leave home 00 Diagnoses knowledge/s Diagnoses Active 2017-07 Kezia kill 2-24 [place] deficit: cg 13:00: [id number] 00 Integument skin Integument Resolve 2017-072018-08-06 [place] [...] Active Kezia hospitaliza 2-18 [place] tion 14:00: [id number] Safety can be left Safety Unknown Kezia alone for 2-18 [place] only short 14:00: [id number] periods 00 Pain frequent Pain Mgmt Resolve 2018-09-24 Lam pain d 2-27 15:00:00 [place] 15:50: [id number] 00 Safety can be left Safety Resolve 2018-10-08 Ke[place] alone for d 3-04 15:00:00 [place] only short 13:00: [id number] periods 00 Cardio edema Cardiovasc Resolve 2018-10-08 [...] ion d 4-08 13:00:00 [place] present 15:45: [id number] Respiratory lung sounds Respirator Resolve 2018-10-29 [place] deficit y d 4-10 13:00:00 [place] 13:00: 00 Infection s/s of Infection Resolve 2019-02-04 [place] infection d 4-17 12:30:00 [place] 13:00: 00 Respiratory smoker Respirator Resolve 2018-2018-11-05 [place] y d 4-17 13:00:00 [place] 13:00: 00 Neuro depressive Neuro/Emot Resolve 2018-12-10 Lam feelings ion d 4-20 12:30:00 [place] present 12:20: [id number] Respiratory smoker Respirator Resolve 2018-2018-11-20 [place] [...] 11-26 13:30:00 [place] deficit - Services 13:30: [id number] pt 00 Respiratory lung sounds Respirator Resolve [...] soni n d 12-18 12:30:00 Narendra 12:30: [id number] 00 Respiratory lung sounds Respirator Resolve 2018-12-24 [...] restriction d 01-16 12:30:00 [place] s 15:00: [id number] 00 Safety can be left Safety Resolve 2019-02-18 [place] alone for d 01-16 12:10:00 [place] only short 15:00: [id number] periods 00 Respiratory smoker Respirator Resolve 2019-01-21 [...] Social 7-12 [place] deficit - Services 14:00: [id number] 00 Respiratory lung sounds Respirator Resolve 2019-02-04 [...] Kezia feelings ion 02-18 [place] present 14:30: [id number] 00 Respiratory lung sounds Respirator Resolve 2019-03-04 [...] d 8-22 12:30:00 [place] only short 15:30: [id number] periods 00 Respiratory smoker Respirator Resolve 2019-03-12 [...] d 0-14 12:45:00 [place] only short 15:00: [id number] periods 00 Musculoskel requires Musculoske Resolve 2018-072019-05-06 [...] alone for 2-12 [place] only short 15:30: [id number] periods 00 Allergies, Adverse Reactions, Alerts Allergy Allergy Status Severity Reaction(s) Onset Inactive Treating Comments Name Type Date Date Clinician phenergan Unknown Active Unknown Reaction Ernestine Unknown 3-23 (Robert) [place] [id number] effexor Unknown Active Unknown Reaction Ernestine Unknown 3-23 (Robert) [place] [id number] compazine Unknown Active Unknown Reaction Ernestine Unknown 3-23 ([place]) [place] [id number] adhesive Unknown Active Unknown Reaction Ernestine tape Unknown 10-11 (Robert) [place] [id number] milk Unknown Active Unknown Reaction Ernestine Unknown 3- (Robert) [place] [id number] prochlorper Base Active Unknown extrapyramidal 2017-07 [place] azine Ingredient symptoms 08-09 Dilip venlafaxine Base Active Severe Hives, 2017-07 [place] Ingredient difficulty 08-09 Dilip breathing, itching promethazin Base Active Unknown extrapyramidal 2017-07 [place] e Ingredient symptoms 08-09 Dilip Gadolinium- Allergen [...] Jill CARRENO tablet tablet ondansetron ondansetron No Lzi Unknown Unknown 4 mg 4 mg 4-10 [...] 6-18 06-25 MD,Jill tablet tablet glyBURIDE glyBURIDE No Liz Unknown Unknown 2.5 mg 2.5 [...] mg 04-15 MD,Jill tablet tablet Augmentin Augmentin 2019-1 2019- Yes Liz Unknown Unknown 875 mg-125 875 mg-125 0-04 10-11 ,Jill mg tablet mg tablet Kadcyla 100 Kadcyla 100 2018-07 Yes Liz Unknown Unknown mg mg 0-03 Jill CARRENO intravenous intravenous solution solution sulfacetami sulfacetami 2018-07 Yes Liz Unknown Unknown de sodium de sodium 1-15 Jill CARRENO 10 % eye 10 % eye drops drops gabapentin gabapentin 2018-07 Yes Liz Unknown Unknown 600 mg 600 mg 1-15 ,Jill tablet tablet dronabinol dronabinol 2018-07 Yes Liz Unknown Unknown 5 mg 5 mg 1-20 Jill CARRENO capsule capsule Levaquin Levaquin 2018-07- Yes Liz Unknown Unknown 750 mg 750 mg - 12- ,Jill tablet tablet dexAMETHaso dexAMETHaso 2018-07 Yes Liz Unknown Unknown ne 2 mg ne 2 mg 2-17 MD,Jill tablet tablet Vital Signs Vital Name [...]
--- OUTSIDE RECORDS SUMMARY | 2019-07-23 18:27 | XMS REPORT | Continuity of Care Document ---
:1975 External Reference #:[id number] Author Name Rocky Miranda MD, [facility], [facility] (transmitted by agent of provider Blanka Valdivia) Address [address] [place] [id number] Care Team Providers Name Role Phone Julian Livingston DO - Interventional Care Team Information Vamp Creaser [phone] Pain Medicine Terrance Rose MD - Orthopaedic Care Team Information Vamp Creaser Surgery Marleni Richardson MD - Internal Care Team Information Vamp Creaser Medicine Problems Active Problems Provider Date Panic [...] 06/07/2018 Malignant neoplasm of female breast Kristina Galo.P. Onset: 06/07/2018 Secondary malignant neoplasm of liver Kristina Galo.Tish Onset: 06/07/2018 and intrahepatic bile duct Secondary [...] 2 tab in am and 90caps Marshal Prieto 08/25/2018 100mg Capsules 2 tab in pm Sharifa French Spiriva Respimat inhale two puffs 12units Maine Herman, 12/17/2017 by mouth every MD 1.25mcg/Act Aerosol day ( Not using) Cyclobenzaprine HCL Patricia Cordero, 5mg [employer]ING [employer]ER Tablets Glyburide Patricia Cordero, 2.5mg Tablets [employer] TENDER Carisoprodol 1 tablet po qid Unknown 250mg Fluconazole one by mouth Unknown 200mg Tablets daily x14 days ( started taking 06/23/18) SM Naproxen Sodium 1 tablet po Patricia Cordero, 220mg twice daily T[employer]ING [employer] TENDER Tablets Fentanyl apply 1 patch Unknown 100mcg/HR [...] Available Procedures Date Code Description Status 01/19/2019 75123 Inject/Drain Joint/Bursa Intermediate W/O US Completed 07/18/2016 [id number] Mammogram Completed 07/24/2011 [id number] Colonoscopy Completed Medical Devices Description No Information Available Encounters Type Date Location Provider Dx Diagnosis Office Visit 06/25/2019 [facility] Vic Collado MD G56.21 Lesion of ulnar 10:00a at [place] [facility], right upper limb Office Visit 01/19/2019 [facility] Yazmin Capps G56.22 Lesion of ulnar 1:30p at [facility] nerve, left upper limb Assessments Date Code Description Provider 06/25/2019 G56.21 Lesion of ulnar nerve, right upper limb Vic Collado MD 01/19/2019 G56.22 Lesion of ulnar nerve, left upper limb Yazmin Capps M.D. Plan of Treatment 06/25/2019 - Vic Collado MDG56.21 Lesion of ulnar nerve, right upper limbFollow up:Follow up: with [place] after [facility] Functional Status Description No Information Available Mental Status Description No Information Available Referrals Description No Information Available
--- OUTSIDE RECORDS SUMMARY | 2019-07-23 18:27 | XMS REPORT ---
:1975 Author Organization [facility] Care Team Providers Name Role Phone Unavailable Unavailable Unavailable Problems Condition Condition Condition Status Onset Resolution Last Treating Comments Name Details Category Date Date Treatment Clinician Date Malignant Malignant Diagnosis Active 2019 Unknown neoplasm of neoplasm of 08-17 upper-outer upper-outer quadrant of quadrant of right right female female breast breast Secondary Secondary Diagnosis Active 2018-07 Unknown malignant malignant 08-17 neoplasm of neoplasm [...]
--- OUTSIDE RECORDS SUMMARY | 2019-07-23 18:27 | XMS REPORT ---
:1975 Author Organization [facility] Care Team Providers Name Role Phone Unavailable [...] Resolve 2017-072018-08-27 Love pain d 08-16 15:00:00 [place] 10:20: [id number] 00 Respiratory smoker Respirator Resolve 2017-072018-07-23 Love y d 08-16 15:00:00 [place] 10:20: [id number] 00 Endo/Jose anti-coagul Endo/Jose Resolve 2017-072018-06-25 Love ation d 08-16 15:00:00 Carly therapy 10:20: [id number] 00 Nutrition nutritional Nutrition Resolve 2017-072018-07-04 Love restriction d 08-16 15:00:00 [place] s 10:20: [id number] Neuro confusion Neuro/Emot Resolve 2017-072018-08-06 Love present ion d 08-16 15:00:00 [place] 10:20: [id number] 00 Neuro anxiety Neuro/Emot Resolve 2017-072018-08-06 Love present ion d 08-16 15:00:00 [place] 10:20: [id number] 00 Neuro depressive Neuro/Emot Resolve 2017-072018-08-06 Love feelings ion d 08-16 15:00:00 [place] present 10:20: [id number] Safety risk for Safety Resolve 2017-072018-07-04 Love hospitaliza d 08-16 15:00:00 [place] tion 10:20: [id number] 00 Safety fall risk Safety Resolve 2017-072018-07-04 Ericka factor d 08-16 15:00:00 Vivian present 10:20: 00 Musculoskel requires Musculoske Resolve 2017-072018-07-04 Love etal human letal d 08-16 15:00:00 [place] assist to 10:20: [id number] leave home 00 Cardio hypertensio Cardiovasc Resolve [...] resource Social 2-10 [place] deficit Services 14:00: [id number] 00 Social knowledge/s BRISEYDA: Resolve 2017-072018-09-22 Kezia Services kill Social d 2-10 13:00:00 [place] deficit - Services 14:00: [id number] pt 00 Social knowledge/s BRISEYDA: Resolve 2017-072018-09-22 Kezia Services kill Social d 2-10 13:00:00 [place] deficit - Services 14:00: [id number] cg 00 Musculoskel requires Musculoske Resolve 2017-072018-07-16 [place] etal human letal d 2-19 15:00:00 [place] assist to 15:30: leave home 00 Diagnoses knowledge/s Diagnoses Active 2017-07 Kezia kill 2-24 [place] deficit: cg 13:00: [id number] 00 Integument skin Integument Resolve 2017-072018-08-06 [place] [...] Active Kezia hospitaliza 2-18 [place] tion 14:00: [id number] Safety can be left Safety Unknown Kezia alone for 2-18 [place] only short 14:00: [id number] periods 00 Pain frequent Pain Mgmt Resolve 2018-09-24 Lam pain d 2-27 15:00:00 [place] 15:50: [id number] 00 Safety can be left Safety Resolve 2018-10-08 Ke[place] alone for d 3-04 15:00:00 [place] only short 13:00: [id number] periods 00 Cardio edema Cardiovasc Resolve 2018-10-08 [...] ion d 4-08 13:00:00 [place] present 15:45: [id number] Respiratory lung sounds Respirator Resolve 2018-10-29 [place] deficit y d 4-10 13:00:00 [place] 13:00: 00 Infection s/s of Infection Resolve 2019-02-04 [place] infection d 4-17 12:30:00 [place] 13:00: 00 Respiratory smoker Respirator Resolve 2018-2018-11-05 [place] y d 4-17 13:00:00 [place] 13:00: 00 Neuro depressive Neuro/Emot Resolve 2018-12-10 Lam feelings ion d 4-20 12:30:00 [place] present 12:20: [id number] 00 Respiratory smoker Respirator Resolve 2018-2018-11-20 [place] [...] 11-26 13:30:00 [place] deficit - Services 13:30: [id number] pt 00 Respiratory lung sounds Respirator Resolve [...] soni n d 12-18 12:30:00 Narendra 12:30: [id number] 00 Respiratory lung sounds Respirator Resolve 2018-12-24 [...] restriction d 01-16 12:30:00 [place] s 15:00: [id number] 00 Safety can be left Safety Resolve 2019-02-18 Ke[place] alone for d 01-16 12:10:00 [place] only short 15:00: [id number] periods 00 Respiratory smoker Respirator Resolve 2019-01-21 [...] Social 7-12 [place] deficit - Services 14:00: [id number] 00 Respiratory lung sounds Respirator Resolve 2019-02-04 [...] Kezia feelings ion 02-18 [place] present 14:30: [id number] 00 Respiratory lung sounds Respirator Resolve 2019-03-04 [...] d 8-22 12:30:00 [place] only short 15:30: [id number] periods 00 Respiratory smoker Respirator Resolve 2019-03-12 [...] d 0-14 12:45:00 [place] only short 15:00: [id number] periods 00 Musculoskel requires Musculoske Resolve 2018-072019-05-06 [...] alone for 2-12 [place] only short 15:30: [id number] periods Respiratory smoker Respirator Resolve 2018-072019-07-09 [place] y d 2-19 12:15:00 [place] 12:15: 00 Musculoskel requires Musculoske Active 2018-07 [place] etal human letal 2- [place] assist to 12:15: leave home 00 Allergies, Adverse Reactions, Alerts Allergy Allergy Status Severity Reaction(s) Onset Inactive Treating Comments Name Type Date Date Clinician phenergan Unknown Active Unknown Reaction Ernestine Unknown 3-23 (Robert) [place] [id number] effexor Unknown Active Unknown Reaction Ernestine Unknown 3-23 (Robert) [place] [id number] compazine Unknown Active Unknown Reaction Ernestine Unknown 3-23 (Robert) [place] [id number] adhesive Unknown Active Unknown Reaction Ernestine tape Unknown 3-23 (Robert) [place] [id number] milk Unknown Active Unknown Reaction Ernestine Unknown 3-23 (Robert) [place] [id number] prochlorper Base Active Unknown extrapyramidal 2017-07 [place] azine Ingredient symptoms - Dilip venlafaxine Base Active Severe Hives, 2017-07 [place] Ingredient difficulty 08-09 Dilip breathing, itching promethazin Base Active Unknown extrapyramidal 2017-07 [place] e Ingredient symptoms 08-09 Dilip Gadolinium- Allergen [...] mg 300 mg 04-08- ,Jill capsule capsule traZODone traZODone Yes Liz Unknown [...] 115 mm[Hg] mm[Hg] Method: Lie DIASTOLIC mm[Hg] 2019-04-08 18:07:54 80 mm[Hg] mm[Hg] Method: Stand DIASTOLIC mm[Hg] 2019-07-09 18:09:26 70 mm[Hg] mm[Hg] Method: Lie PULSE 2019-07-09 18:09:26 84 /min /min RESP RATE 2019-07-09 18:09:26 16 /min /min TEMP 2019-07-09 18:09:26 96.8 [degF] Procedures This patient has no known procedures. Results This patient has no known results.
[2019-07-23] MEDS ORDERED: fentaNYL PATCHs 100 MCG/HR TRANSDERM SCH (18:30)
[2019-07-23] MEDS ORDERED: Piperacillin/Tazobac ADVAN(*) 3.375 GM in NS 0.9% 100 ML* 100 ML IVPB ONE (19:00)
[2019-07-23] MEDS: HYDROmorphone INJ1* 1 MG/ML SYRINGE IV PRN ×2 (19:12→22:23)
[2019-07-23] MEDS: NS 0.9% w/ 20 Meq KCL 1000 ML* 1,000 ML IV SCH (19:16)
[2019-07-23] MEDS ORDERED: Iohexol 300* (CONTRAST) 10 ML SDV IV ONE (20:21)
[2019-07-23] MEDS: Azithromycin IV(*) 250 MG in NS 0.9% 250 ML* 250 ML IVPB SCH (21:51)
[2019-07-23] MEDS: Gabapentin CAP(*) 300 MG PO SCH (21:51)
[2019-07-23] MEDS: Dexamethasone TAB* 1 MG PO SCH (21:51)
[2019-07-23] MEDS: DULoxetine DR CAP* 30 MG CAP.DR PO SCH (21:51)
[2019-07-23] MEDS: Lactulose* 15 ML UDC PO SCH (21:52)
[2019-07-23] MEDS: Polyethylene Glycol 3350* 17 GM PACKET PO SCH (22:17)
[2019-07-24] MEDS: ZOSYN 3.375 GM Q8H per EXTENDED INFUSION IVPB SCH ×6 (00:53→21:29)
[2019-07-24] MEDS: HYDROmorphone INJ1* 1 MG/ML SYRINGE IV PRN ×8 (04:30→22:05)
[2019-07-24 06:26] LABS: ABS Eosinophils 0.4 10^3/ul (0-0.6); ABS Lymphocytes 0.9 10^3/ul (1.0-4.8); ABS Monocytes 0.3 10^3/ul (0-0.8); ABS Neutrophils 7.8 10^3/ul (1.5-7.7); Eosinophil % 3.9 %; Hematocrit 28 % (35-47); Hemoglobin 8.5 g/dL (12.0-16.0); Lymphocyte % 9.3 %; Mean Corpuscular HGB Conc 31 g/dL (31-36); Mean Corpuscular Hemoglobin 25 pg (27-31); Mean Corpuscular Volume 81 fL (80-97); Mean Platelet Volume 7.7 fL (7.4-10.4); Nucleated Red Blood Cells % 0.4; Platelet Count 149 10^3/uL (150-450); Red Blood Count 3.44 10^6 /uL (3.70-4.87); Red Cell Distribution Width 22 % (10-15); White Blood Count 9.4 10^3/uL (3.5-10.8)
[2019-07-24 06:41] LABS: Albumin 3.4 g/dL (3.2-5.2); BUN/Creatinine Ratio 15.1 (8-20); Calcium 8.3 mg/dL (8.6-10.3); EGFR African American 153.8 (>60); EGFR Non-African American 127.1 (>60); Globulin 2.9 g/dL (2-4); Potassium 4.4 mmol/L (3.5-5.0); Total Protein 6.3 g/dL (6.4-8.9)
[2019-07-24 06:42] LABS: Albumin/Globulin Ratio 1.2 (1-3); C Reactive Protein 45.92 mg/L (<8.01); Total Bilirubin 0.4 mg/dL (0.2-1.0)
[2019-07-24] MEDS: fentaNYL Patch Check Q Shift 1 NOTE FOLLOW UP SCH ×2 (07:17→19:09)
[2019-07-24] MEDS ORDERED: diPHENhydraMINE PO* 50 MG PO ONE (09:30)
[2019-07-24] MEDS ORDERED: fentaNYL PATCHs 100 MCG/HR TRANSDERM SCH (09:30)
[2019-07-24] MEDS: fentaNYL PATCHs 100 MCG/HR TRANSDERM SCH (10:42)
[2019-07-24] MEDS: fentaNYL PATCH 50 MCG/HR TRANSDERM SCH (10:42)
--- NOTE | 2019-07-24 10:59 | PN ---
Progress Note - Progress Note Date of Service: 07/24/19 SOAP: Subjective: [Admitted yesterday with recurrent VÁZQUEZ, fevers and generalized malaise. Recent w /u for similar symptoms were negative for obvious [employer] infection and progressive malignancy. She was started on empiric abx. She has been afebrile since admission. Ammonia incidentally noted to be elevated. No known liver disease. As of this morning she has not improved symptomatically. Still has a severe VÁZQUEZ and generalized ache with malaise. Objective: [ Vital Signs: Temp Pulse Resp BP Pulse Ox 98.3 F 92 16 118/62 97 07/24/19 07:15 07/24/19 07:15 07/24/19 08:00 07/24/19 07:15 07/24/19 07:15 Alprazolam (Xanax Tab*) 1 mg PO QID PRN PRN Reason: ANXIETY Brexpiprazole (Rexulti (Nf)) 2 mg PO DAILY [facility] Cetirizine HCl (Zyrtec*) 10 mg PO DAILY [facility] Dexamethasone (Decadron Tab*) 2 mg PO BID [facility] Last Admin: 07/23/19 21:51 Dose: 2 mg Docusate Sodium (Colace Cap*) 200 mg PO BID PRN PRN Reason: CONSTIPATION Duloxetine HCl (Cymbalta Cap*) 60 mg PO BEDTIME [facility] Last Admin: 07/23/19 21:51 Dose: 60 mg Fentanyl (Duragesic Patch 100 Mcg/Hr *) 200 mcg TRANSDERM Q72H GIOVANNA Fentanyl (Duragesic Patch 50 Mcg/Hr*) 50 mcg TRANSDERM Q72H [facility] Gabapentin (Neurontin Cap(*)) 600 mg PO TID [facility] Last Admin: 07/23/19 21:51 Dose: 600 mg Heparin Sodium (Porcine) (Heparin Flush Port (Ivad)) 5 ml FLUSH DAILY [facility]; Protocol Hydromorphone HCl (Dilaudid Inj1s*) 2 mg IV Q2H PRN PRN Reason: PAIN - SEVERE Azithromycin 250 mg/ Sodium (Chloride) 250 mls @ 250 mls/hr IVPB Q24H [facility] Last Admin: 07/23/19 21:51 Dose: 250 mls/hr Potassium Chloride/Sodium Chloride (Ns 0.9% W/ 20 Meq Kcl 1000 Ml*) 1,000 mls @ 75 mls/hr IV PER RATE [facility] Last Admin: 07/23/19 19:16 Dose: 75 mls/hr Piperacillin Sod/Tazobactam (Sod 3.375 gm/ Sodium Chloride) 100 mls @ 25 mls/ hr IVPB Q8H [facility] Last Admin: 07/24/19 00:53 Dose: 25 mls/hr Lactulose (Lactulose*) 15 ml PO TID [facility] Last Admin: 07/23/19 21:52 Dose: 15 ml Mirtazapine (Remeron Tab*) 30 mg PO DAILY [facility] Ondansetron HCl (Zofran Tab*) 4 mg PO .6X/DAY PRN PRN Reason: NAUSEA Oxycodone HCl (Roxycodone Tab*) 10 mg PO Q4H PRN PRN Reason: PAIN - MODERATE Pharmacy Consult (Zosyn Per Pharmacy*) 1 note FOLLOW UP .ZOSYN PER PHARMACY [facility] Pharmacy Profile Note (Fentanyl Patch Check Q Shift) 1 note FOLLOW UP 0700, 1900 [facility] Last Admin: 07/24/19 07:17 Dose: 1 note Polyethylene Glycol/Electrolytes (Miralax*) 17 gm PO 0800,2100 [facility] Last Admin: 07/23/19 22:17 Dose: Not Given Rivaroxaban (Xarelto(*)) 20 mg PO DAILY@1700 [facility] Laboratory Results - last 24 hr 07/24/19 07/24/19 07/24/19 06:10 06:10 10:14 WBC 9.4 RBC 3.44 L Hgb 8.5 L Hct 28 L MCV 81 MCH 25 L MCHC 31 RDW 22 H Plt Count 149 L MPV 7.7 Neut % (Auto) 83.0 Lymph % (Auto) 9.3 Pender % (Auto) 3.5 Eos % (Auto) 3.9 Baso % (Auto) 0.3 Absolute Neuts (auto) 7.8 H Absolute Lymphs (auto) 0.9 L Absolute Monos (auto) 0.3 Absolute Eos (auto) 0.4 Absolute Basos (auto) 0.0 Absolute Nucleated RBC 0.0 Nucleated RBC % 0.4 Sodium 141 Potassium 4.4 Chloride 107 Carbon Dioxide 31 Anion Gap 3 BUN 8 Creatinine 0.53 Est GFR ( Amer) 153.8 Est GFR (Non-Af Amer) 127.1 BUN/Creatinine Ratio 15.1 Glucose 153 H Calcium 8.3 L Total Bilirubin 0.40 AST 37 ALT 13 Alkaline Phosphatase 141 H Ammonia 95 H C-Reactive Protein 45.92 H Total Protein 6.3 L Albumin 3.4 Globulin 2.9 Albumin/Globulin Ratio 1.2 Exam: Gen: lethargic and slightly uncomfortable appearing HEENT: MMM CV: RRR, no m/r/g Resp: few crackles, no wheeze or rhonchi Abd: soft and nonTTP Ext: trace edema Neuro: no focal weakness] Assessment: [This is a 43 yo female with metastatic HER2+ BCA s/p C4 kadcyla 07/17/19 who presents with recurrent VÁZQUEZ, fever and malaise with incidental finding of hyperammonemia. No clear infectious source. Recent [employer] evaluation including MRI and LP was negative. ] Plan: [1. VÁZQUEZ/fever - requested ID consultation - consider tick borne illness - tick panel added on and pending - CMV Ab panel pending - consider empiric switch from Zosyn to Ceftriaxone while continuing azithromycin to cover lyme disease - CT chest shows no obvious large infiltrate - some mild atelectasis noted 2. Hyperammonemia - ammonia increased on repeat labs today following hydration and initiation of lactulose - no known liver disease or other sequelae of liver failure - will review medications with pharmacy for possible offending medication - check MRI abd to eval for occult hepatic disease, prior US has been WNL - cont lactulose for now and monitor ammonia daily 3. Metastatic HER2+ BCA - s/p C4 kadcyla 07/17 Dispo: pending ID consult and MRI abd - plan dc home when clinically appropriately]
[2019-07-24] MEDS ORDERED: Gadoxetate* (CONTRAST) 181.43 MG/ML 10 ML SDV IV ONE (12:16)
[2019-07-24] MEDS: Gabapentin CAP(*) 300 MG PO SCH ×3 (13:43→21:30)
[2019-07-24] MEDS: Polyethylene Glycol 3350* 17 GM PACKET PO SCH ×2 (13:43→21:32)
[2019-07-24] MEDS: Dexamethasone TAB* 1 MG PO SCH ×2 (13:44→21:30)
[2019-07-24] MEDS: Cetirizine* 10 MG TAB PO SCH (13:44)
[2019-07-24] MEDS: Mirtazapine TAB* 15 MG PO SCH (13:44)
[2019-07-24] MEDS: Lactulose* 15 ML UDC PO SCH ×3 (13:45→21:31)
[2019-07-24] MEDS: BREXPIPRAZOLE 2 MG PO SCH (13:46)
[2019-07-24] MEDS: Rivaroxaban TAB(*) 20 MG TAB PO SCH (15:57)
--- NOTE | 2019-07-24 19:59 | CONS ---
CONSULTATION REPORT: DATE OF CONSULT: 07/24/19 PRIMARY CARE PROVIDER: Dr. Jill Hill. PROVIDER REQUESTING CONSULTATION: Patricia Cordero NP CONSULTING SERVICE: Infectious Disease. PROVIDER: Tanner Kat NP ATTENDING PROVIDER: Dr. Orlando Henderson * (dictated by TANNER KAT NP). REASON FOR CONSULT: Headache, recurrent fevers with concern for recurrent infection. IMPRESSION: 1. Fever. The patient was treated for possible aspiration pneumonitis back in June. She is currently receiving chemotherapy for metastatic breast cancer with mets to the brain. Chest CT at admission with mild bibasilar atelectasis versus parenchymal scarring. Blood cultures with no growth to date. Urine culture with no growth. Outpatient urine antigens for legionella and Strep pneumoniae negative. Differential diagnosis could include atelectasis, pneumonitis, drug reaction from chemotherapy, urinary tract infection. She has been afebrile during her hospitalization and has been on azithromycin and Zosyn. She has a PowerPort and the site is benign. Blood cultures with no growth. She does report some tenderness with palpation of the neck and thoracic spine, she suffers from chronic back pain. Difficult to determine if back pain is secondary to her underlying degenerative changes versus another process. She did have imaging of the cervical spine during her last admission with an MRI showing degenerative changes noted at multiple cervical levels, disk protrusions at C4-5 and C5-6 with some spinal cord stenosis, mild left neural foraminal narrowing, signs of muscle spasms. Although in the differential of spine infection, I think this is unlikely the case. A tick panel has been added on and is pending. 2. Headache. Headaches have been ongoing, she has a history of brain metastasis. The patient had a lumbar puncture on 07/10/19 outpatient with no growth in organisms or sign of malignancy. I suspect that her headache is likely secondary to the brain metastases in the right frontal lobe region. 3. Chronic back pain. The patient also reports neck pain. She has a history of chronic back pain. She had imaging of the cervical spine showing mild stenosis with mild foraminal narrowing and degenerative changes. Negative lumbar puncture on 07/10/19. I suspect this likely is the cause of her neck pain. 4. Metastatic breast cancer. With metastases to the liver and brain, she is status post gamma knife treatment and currently receiving chemotherapy. She is currently on dexamethasone. RECOMMENDATIONS/PLAN: Recommend continuing azithromycin and Zosyn for now. If her tick-borne panel does return with Lyme disease, should switch her to ceftriaxone. She should be encouraged to use an incentive spirometer in the setting of atelectasis seen on chest CT. I recommend monitoring her over the weekend, at which time we can follow up and see how she is doing and make final recommendations. HISTORY OF PRESENT ILLNESS: Ms. Guevara is a 43-year-old female with past medical history significant for metastatic breast cancer to the liver and brain , status post gamma knife; asthma; chronic back pain; depression; migraines; and obesity, who was last admitted to the hospital from 07/06/19 to 07/07/19 for headache. At that time, she was diagnosed with pneumonia versus pneumonitis , progressive HER2 positive metastatic breast cancer, and intractable headache and neck pain. During that hospitalization, she had an MRI of the cervical spine and brain showing metastatic focus in the right posterior frontal lobe that was previously treated via gamma knife appeared to have increased in size with mild vasogenic edema. The patient received IV dexamethasone and had had some improvement in the neck pain and headache. During that hospitalization, she was noted to intermittently have hypoxia requiring oxygen, she generally used only at night. She had a CT scan showing possibility of either atypical pneumonia versus pneumonitis. She received a full course of antibiotics for treatment of pneumonitis. During that hospitalization, she did not undergo a lumbar puncture to rule out meningitis due to being on anticoagulants. She did undergo a lumbar puncture outpatient on 07/10/19 showing a colorless clear fluid with glucose of 76, total protein of 46. There was no evidence of malignancy or acute inflammation response. There were no microorganisms seen. She had had blood cultures drawn during that previous admission with no growth. The patient received C4 Kadcyla on 07/17/19 and developed fevers that evening. She contacted Oncology, who felt it may be secondary to a drug reaction and was treating that with Tylenol. She continued to have fevers and was seen in the office outpatient on 07/20/19, was cautiously treated for a possible pneumonia with doxycycline. She had blood cultures drawn outpatient showing no growth on day 4. Additionally, she had a urine culture with no growth and urine antigens for legionella and S. pneumoniae that were negative. She continued to feel about the same, was seen by Oncology on 07/23/19 and was admitted to the hospital. While in the hospital, she is noted to be afebrile with no leukocytosis. She is not neutropenic. She has been on azithromycin and Zosyn. She continues to have neck and back pain in addition to a headache. She had a CT of the chest showing mild bibasilar atelectasis versus parenchymal scarring. She reports continuing to feel unwell, intermittent fevers and chills. She reports an occasional productive cough. She has not looked at the mucus that she brings up. She feels that this is about the same that it has been. Denies nausea, vomiting. Prior to admission, she had an episode of diarrhea and then has been constipated with her last known bowel movement on 07/17/19 or 07/19/19. She denies any urinary symptoms, recent travel. She reports back pain at baseline, but feels that this is increased from her baseline. PAST MEDICAL HISTORY: 1. Metastatic breast cancer with metastases to the liver and right frontal brain, status post chemo, gamma knife. 2. Asthma. 3. Chronic back pain. 4. Depression. 5. Migraines. 6. Obesity. PAST SURGICAL HISTORY: 1. Status post appendectomy. 2. Status post multilevel laminectomies. 3. Status post section. 4. Status post cholecystectomy. MEDICATIONS: Home medications: 1. Doxycycline 100 mg by mouth twice daily. 2. Symbicort 160/4.5 two puffs inhalation twice daily. 3. Albuterol HFA inhaler 2 puffs inhalation every 4 hours as needed for shortness of breath or wheeze. 4. Omeprazole 20 mg by mouth twice daily. 5. Trazodone 400 mg by mouth daily. 6. Brexpiprazole 2 mg by mouth daily. 7. Alprazolam 1 mg by mouth 4 times daily as needed for anxiety. 8. Soma 250 mg by mouth every 4 hours. 9. Duloxetine 60 mg by mouth daily at bedtime. 10. Zyrtec 10 mg by mouth daily. 11. Gabapentin 600 mg by mouth 3 times daily. 12. Colace 200 mg by mouth twice daily as needed for constipation. 13. Naproxen 220 mg by mouth twice daily as needed for pain. 14. Mirtazapine 30 mg by mouth daily. 15. MiraLAX 17 g by mouth daily as needed for constipation. 16. Zofran 4 mg by mouth 4 times daily as needed for nausea. 17. Fentanyl patch 200 mcg transdermal every 72 hours. 18. Dexamethasone 2 mg by mouth twice daily. 19. Xarelto 20 mg by mouth daily. 20. Potassium chloride 20 mEq by mouth daily. 21. Oxycodone 10 to 20 mg by mouth every 4 hours as needed for pain. Hospital medications: 1. Alprazolam 1 mg by mouth 4 times daily as needed for anxiety. 2. Azithromycin 250 mg IV every 24 hours. 3. Brexpiprazole 2 mg by mouth daily. 4. Zyrtec 10 mg by mouth daily. 5. Dexamethasone 2 mg by mouth twice daily. 6. Colace 200 mg by mouth twice daily as needed for constipation. 7. Duloxetine 60 mg by mouth daily. 8. Fentanyl patch 250 mcg transdermal every 72 hours. 9. Gabapentin 600 mg by mouth 3 times daily. 10. Heparin sodium 5 mL IV flush daily. 11. Hydromorphone 2 mg IV every 2 hours as needed for pain. 12. Lactulose 15 mL by mouth 3 times daily. 13. Mirtazapine 30 mg by mouth daily. 14. Zofran 4 mg by mouth 6 times daily as needed for nausea. 15. Oxycodone 10 mg by mouth every 4 hours as needed for pain. 16. Zosyn 3.375 g IV every 8 hours. 17. MiraLAX 17 g by mouth twice daily. 18. Potassium chloride 20 mEq IV. 19. Xarelto 20 mg by mouth daily. ALLERGIES: 1. GADOLINIUM CONTRAST caused anaphylactic shock. 2. EFFEXOR. 3. LATEX. 4. Milk. 5. ADHESIVE TAPE. 6. COMPAZINE. 7. PROMETHAZINE. FAMILY HISTORY: Denies family history of recurrent or resistant infections, coronary artery disease, diabetes. Maternal grandmother with a history of cervical cancer. SOCIAL HISTORY: Denies alcohol or recreational drug use. She is a current smoker down to 3 to 4 cigarettes daily. Previously, she has half a pack a day smoking history for the last 20 years. REVIEW OF SYSTEMS: I performed a 10-point review of systems. All the pertinent positives and negatives are mentioned in the history of present illness. The remaining review of systems are negative. PHYSICAL EXAM: Vital Signs: Temperature 98.3, heart rate 92, respiratory rate 12, O2 sat 97% on 2 L via nasal cannula, blood pressure 118/62. General Appearance: The patient is alert, appears to be in no acute distress. Head: Normocephalic, atraumatic. EENT: Extraocular movements are intact. No subconjunctival hemorrhage. Moist mucous membranes. Neck is supple. There is no lymphadenopathy noted. The patient does report some tenderness with palpation to the midline neck and bilateral lateral aspects of the neck up her shoulders. She has full range of motion and no nuchal rigidity. Neurological: Alert and oriented x4. Cranial nerves II through XII are grossly intact. She moves all extremities. Cardiovascular: Regular rate and rhythm. S1 and S2 present. No murmurs, rubs, or gallops heard. Respiratory: There is no accessory muscle use. The lungs are clear to auscultation bilaterally. Abdomen : Bowel sounds present x4. Abdomen is soft, large, obese, nontender. Extremities: No lower extremity edema. Musculoskeletal: No clubbing or cyanosis noted. She does report some tenderness in the lower thoracic spine and upper lumbar spine with palpation midline. Denies tenderness with palpation of the lower lumbar spine, upper thoracic spine, or lateral back. Psychological: Calm and cooperative. Skin: No rashes or abnormalities seen. DIAGNOSTIC STUDIES/LAB DATA: Sodium 141, potassium 4.4, chloride 107, CO2 31, BUN 8, creatinine 0.53, glucose 153. White blood cell count 9.4, hemoglobin 8.5 , hematocrit 28, platelet count 149. CRP 45.92. Please see impression and recommendations outlined above. Recommendations have been discussed with EBONY Jacobsen. Thank you for asking us to see Ms. Guevara in consultation. The case has been reviewed with the attending, Dr. Orlando Henderson, who agrees with the plan of care. Reviewed by ANIBAL BARCENAS 07/27/19 [id number]/[facility] #: [id number] SANKET
[2019-07-24] MEDS: Azithromycin IV(*) 250 MG in NS 0.9% 250 ML* 250 ML IVPB SCH (20:04)
[2019-07-24] MEDS: DULoxetine DR CAP* 30 MG CAP.DR PO SCH (21:29)
[2019-07-24] MEDS: ALPRAZolam TAB* 0.5 MG PO PRN (21:29)
[2019-07-25] MEDS: HYDROmorphone INJ1* 1 MG/ML SYRINGE IV PRN ×12 (00:10→23:36)
[2019-07-25] MEDS: NS 0.9% w/ 20 Meq KCL 1000 ML* 1,000 ML IV SCH ×2 (00:58→15:04)
[2019-07-25] MEDS: ALPRAZolam TAB* 0.5 MG PO PRN ×3 (04:09→22:47)
[2019-07-25 05:30] LABS: ABS Basophils 0.1 10^3/ul (0-0.2); ABS Lymphocytes 1.1 10^3/ul (1.0-4.8); ABS Monocytes 0.5 10^3/ul (0-0.8); ABS Neutrophils 8.1 10^3/ul (1.5-7.7); Eosinophil % 0.3 %; Hematocrit 26 % (35-47); Hemoglobin 8.3 g/dL (12.0-16.0); Lymphocyte % 11.1 %; Mean Corpuscular HGB Conc 32 g/dL (31-36); Mean Corpuscular Hemoglobin 25 pg (27-31); Mean Corpuscular Volume 80 fL (80-97); Mean Platelet Volume 8.1 fL (7.4-10.4); Nucleated Red Blood Cells % 0.3; Platelet Count 139 10^3/uL (150-450); Red Blood Count 3.27 10^6 /uL (3.70-4.87); Red Cell Distribution Width 22 % (10-15); White Blood Count 9.7 10^3/uL (3.5-10.8)
[2019-07-25 05:47] LABS: Albumin 3.5 g/dL (3.2-5.2); Albumin/Globulin Ratio 1.2 (1-3); BUN/Creatinine Ratio 15.7 (8-20); Calcium 8.6 mg/dL (8.6-10.3); EGFR African American 160.8 (>60); EGFR Non-African American 132.9 (>60); Globulin 2.9 g/dL (2-4); Total Bilirubin 0.4 mg/dL (0.2-1.0); Total Protein 6.4 g/dL (6.4-8.9)
[2019-07-25] MEDS: ZOSYN 3.375 GM Q8H per EXTENDED INFUSION IVPB SCH ×6 (06:01→22:43)
[2019-07-25] MEDS: fentaNYL Patch Check Q Shift 1 NOTE FOLLOW UP SCH ×2 (07:12→18:43)
[2019-07-25] MEDS: oxyCODONE TAB* 5 MG TAB PO PRN ×2 (07:26→16:18)
[2019-07-25] MEDS: Gabapentin CAP(*) 300 MG PO SCH ×3 (07:27→20:53)
[2019-07-25] MEDS: Dexamethasone TAB* 1 MG PO SCH ×2 (07:28→20:53)
[2019-07-25] MEDS: Mirtazapine TAB* 15 MG PO SCH (07:28)
[2019-07-25] MEDS: Cetirizine* 10 MG TAB PO SCH (07:28)
[2019-07-25] MEDS: Lactulose* 15 ML UDC PO SCH ×3 (07:28→21:37)
[2019-07-25] MEDS: Polyethylene Glycol 3350* 17 GM PACKET PO SCH (07:42)
[2019-07-25] MEDS: BREXPIPRAZOLE 2 MG PO SCH (07:43)
--- NOTE | 2019-07-25 10:11 | PN ---
Progress Note - Progress Note Date of Service: 07/25/19 SOAP: Subjective: []Headache is sever this am, helped by dilaudid but if shot is late VÁZQUEZ sever. No additional fever. Tolerating laculose and had loose stool. Breathing is ok and is eating some. Alprazolam (Xanax Tab*) 1 mg PO QID PRN PRN Reason: ANXIETY Last Admin: 07/25/19 04:09 Dose: 1 mg Brexpiprazole (Rexulti (Nf)) 2 mg PO DAILY [facility] Last Admin: 07/25/19 07:43 Dose: Not Given Cetirizine HCl (Zyrtec*) 10 mg PO DAILY [facility] Last Admin: 07/25/19 07:28 Dose: 10 mg Dexamethasone (Decadron Tab*) 2 mg PO BID [facility] Last Admin: 07/25/19 07:28 Dose: 2 mg Docusate Sodium (Colace Cap*) 200 mg PO BID PRN PRN Reason: CONSTIPATION Last Admin: 07/24/19 13:44 Dose: 200 mg Duloxetine HCl (Cymbalta Cap*) 60 mg PO BEDTIME [facility] Last Admin: 07/24/19 21:29 Dose: 60 mg Fentanyl (Duragesic Patch 100 Mcg/Hr *) 200 mcg TRANSDERM Q72H [facility] Last Admin: 07/24/19 10:42 Dose: 200 mcg Fentanyl (Duragesic Patch 50 Mcg/Hr*) 50 mcg TRANSDERM Q72H [facility] Last Admin: 07/24/19 10:42 Dose: 50 mcg Gabapentin (Neurontin Cap(*)) 600 mg PO TID [facility] Last Admin: 07/25/19 07:27 Dose: 600 mg Heparin Sodium (Porcine) (Heparin Flush Port (Ivad)) 5 ml FLUSH DAILY [facility]; Protocol Last Admin: 07/25/19 07:43 Dose: Not Given Hydromorphone HCl (Dilaudid Inj1s*) 2 mg IV Q2H PRN PRN Reason: PAIN - SEVERE Last Admin: 07/25/19 08:40 Dose: 2 mg Azithromycin 250 mg/ Sodium (Chloride) 250 mls @ 250 mls/hr IVPB Q24H [facility] Last Admin: 07/24/19 20:04 Dose: 250 mls/hr Potassium Chloride/Sodium Chloride (Ns 0.9% W/ 20 Meq Kcl 1000 Ml*) 1,000 mls @ 75 mls/hr IV PER RATE [facility] Last Admin: 07/25/19 00:58 Dose: 75 mls/hr Piperacillin Sod/Tazobactam (Sod 3.375 gm/ Sodium Chloride) 100 mls @ 25 mls/ hr IVPB Q8HR [facility] Last Admin: 07/25/19 06:01 Dose: 25 mls/hr Lactulose (Lactulose*) 15 ml PO TID [facility] Last Admin: 07/25/19 07:28 Dose: 15 ml Mirtazapine (Remeron Tab*) 30 mg PO DAILY [facility] Last Admin: 07/25/19 07:28 Dose: 30 mg Ondansetron HCl (Zofran Tab*) 4 mg PO .6X/DAY PRN PRN Reason: NAUSEA Oxycodone HCl (Roxycodone Tab*) 10 mg PO Q4H PRN PRN Reason: PAIN - MODERATE Last Admin: 07/25/19 07:26 Dose: 10 mg Pharmacy Consult (Zosyn Per Pharmacy*) 1 note FOLLOW UP .ZOSYN PER PHARMACY [facility] Pharmacy Profile Note (Fentanyl Patch Check Q Shift) 1 note FOLLOW UP 0700, 1900 [facility] Last Admin: 07/25/19 07:12 Dose: 1 note Rivaroxaban (Xarelto(*)) 20 mg PO DAILY@1700 [facility] Last Admin: 07/24/19 15:57 Dose: 20 mg Objective: [] Vital Signs Temp Pulse Resp BP Pulse Ox 97.9 F 70 18 124/62 98 07/25/19 07:15 07/25/19 07:15 07/25/19 09:49 07/25/19 07:15 07/25/19 07:15 Exam: Gen: not lethargic but is in pain. HEENT: MMM, obese CV: RRR, no m/r/g Resp: few crackles, no wheeze or rhonchi Abd: soft and nonTTP Ext: trace edema Neuro: no gross focal weakness MRI - hepatic steatosis,no clear metastatic disease. Assessment: [This is a 43 yo female with metastatic HER2+ BCA s/p C4 kadcyla 07/17/19 who presents with recurrent VÁZQUEZ, fever and malaise with incidental finding of hyperammonemia. No clear infectious source. Recent [employer] evaluation including MRI and LP was negative. This is second admission for fever and VÁZQUEZ, last admission 07/06/19 with TDM-1 on 06/09/19, this admission after TDM-1 on . Review of recent imaging and blood work indicate disease is responding. Ddx fever includes occult infection, tumor fever, reaction to medication. Both pyrexia and VÁZQUEZ are listed as SE fo TDM-1, at 10% and 28% of patient respectively. Plan: [1. VÁZQUEZ/fever - Appreciate ID consultation - CMV Ab panel pending - continue current antibiotics. 2. Hyperammonemia. Unclear clincal significance, she is more awake today on Lactulose - cont lactulose for now and check ammonia on Saturday 3. Metastatic HER2+ BCA - s/p C4 kadcyla 07/17 - If fever is SE, will plan regimen to manage. 4. Pain. Still poorly controlled. Given Xarelto, trial of Celebrex 100 mg po bid. Continue current Fentanyl and dilaudid 5. Trazodone at night for sleep.
[2019-07-25 16:11] LABS: Cytomegalovirus IgG Antibody Negative (Negative)
[2019-07-25] MEDS: Rivaroxaban TAB(*) 20 MG TAB PO SCH (16:19)
[2019-07-25] MEDS: DULoxetine DR CAP* 30 MG CAP.DR PO SCH (20:53)
[2019-07-25] MEDS: traZODone TAB* 50 MG TAB PO SCH (20:54)
[2019-07-25] MEDS: celeCOXIB CAP* 100 MG PO SCH (20:54)
[2019-07-25] MEDS: Azithromycin IV(*) 250 MG in NS 0.9% 250 ML* 250 ML IVPB SCH (20:55)
[2019-07-25 21:45] LABS: Anaplasma phagocytophilum Negative (Negative); B. miyamotoi PCR, B Negative (Negative); Babesia divergens/MO-1 Negative (Negative); Babesia ducani Negative (Negative); Ehrlichia chaffeensis Negative (Negative); Ehrlichia ewingii/canis Negative (Negative); Ehrlichia muris eauclairensis Negative (Negative)
[2019-07-26] MEDS: oxyCODONE TAB* 5 MG TAB PO PRN (00:52)
[2019-07-26] MEDS: HYDROmorphone INJ1* 1 MG/ML SYRINGE IV PRN ×11 (01:35→23:12)
[2019-07-26] MEDS: ZOSYN 3.375 GM Q8H per EXTENDED INFUSION IVPB SCH ×6 (06:05→23:12)
[2019-07-26 06:29] LABS: ABS Eosinophils 0.1 10^3/ul (0-0.6); ABS Lymphocytes 1.4 10^3/ul (1.0-4.8); ABS Monocytes 0.9 10^3/ul (0-0.8); ABS Neutrophils 9.8 10^3/ul (1.5-7.7); ABS Nucleated RBC 0.1 10^3/ul; Eosinophil % 0.5 %; Hematocrit 26 % (35-47); Hemoglobin 8.1 g/dL (12.0-16.0); Lymphocyte % 11.8 %; Mean Corpuscular HGB Conc 31 g/dL (31-36); Mean Corpuscular Hemoglobin 25 pg (27-31); Mean Corpuscular Volume 80 fL (80-97); Mean Platelet Volume 8.7 fL (7.4-10.4); Nucleated Red Blood Cells % 0.4; Platelet Count 125 10^3/uL (150-450); Red Blood Count 3.24 10^6 /uL (3.70-4.87); Red Cell Distribution Width 21 % (10-15); White Blood Count 12.2 10^3/uL (3.5-10.8)
[2019-07-26 06:49] LABS: Albumin 3.5 g/dL (3.2-5.2); Albumin/Globulin Ratio 1.2 (1-3); BUN/Creatinine Ratio 16.7 (8-20); Calcium 8.7 mg/dL (8.6-10.3); EGFR African American 150.5 (>60); EGFR Non-African American 124.4 (>60); Potassium 3.9 mmol/L (3.5-5.0); Total Bilirubin 0.5 mg/dL (0.2-1.0); Total Protein 6.5 g/dL (6.4-8.9)
[2019-07-26] MEDS: fentaNYL Patch Check Q Shift 1 NOTE FOLLOW UP SCH ×2 (07:04→18:57)
[2019-07-26] MEDS: celeCOXIB CAP* 100 MG PO SCH ×2 (08:16→21:13)
[2019-07-26] MEDS: Lactulose* 15 ML UDC PO SCH ×3 (08:16→21:13)
[2019-07-26] MEDS: Cetirizine* 10 MG TAB PO SCH (08:16)
[2019-07-26] MEDS: BREXPIPRAZOLE 2 MG PO SCH (08:17)
[2019-07-26] MEDS: Gabapentin CAP(*) 300 MG PO SCH ×3 (08:17→21:12)
[2019-07-26] MEDS: Mirtazapine TAB* 15 MG PO SCH (08:17)
[2019-07-26] MEDS: Dexamethasone TAB* 1 MG PO SCH ×2 (08:17→21:13)
[2019-07-26] MEDS ORDERED: Metoclopramide IV* 5 MG/ML 2 ML VIAL IV PRN (10:03)
[2019-07-26] MEDS: Acetaminophen TAB* 325 MG PO SCH ×2 (10:22→16:38)
[2019-07-26] MEDS: BREXPIPRAZOLE 1 MG PO SCH (12:32)
[2019-07-26] MEDS: NS 0.9% w/ 20 Meq KCL 1000 ML* 1,000 ML IV SCH (14:33)
--- NOTE | 2019-07-26 16:11 | PN ---
Subjective Date of Service: 07/26/19 Interval History: Cross Coverage for Onc. No acute events overnight. Patient reports difficulty sleeping. Still with headache despite NSAIDs, opioids, gabapentin, SNRI, and steroids. Will initiate APAP RTC. Increase Dilaudid by 50%. Tolerating PO. Objective Active Medications: Acetaminophen (Tylenol Tab*) 975 mg PO Q8H [facility] Last Admin: 07/26/19 10:22 Dose: 975 mg Alprazolam (Xanax Tab*) 1 mg PO QID PRN PRN Reason: ANXIETY Last Admin: 07/25/19 22:47 Dose: 1 mg Brexpiprazole (Rexulti) 2 mg PO DAILY [facility] Last Admin: 07/26/19 12:32 Dose: 2 mg Celecoxib (Celebrex Cap*) 100 mg PO BID [facility] Last Admin: 07/26/19 08:16 Dose: 100 mg Cetirizine HCl (Zyrtec*) 10 mg PO DAILY [facility] Last Admin: 07/26/19 08:16 Dose: 10 mg Dexamethasone (Decadron Tab*) 2 mg PO BID [facility] Last Admin: 07/26/19 08:17 Dose: 2 mg Docusate Sodium (Colace Cap*) 200 mg PO BID PRN PRN Reason: CONSTIPATION Last Admin: 07/24/19 13:44 Dose: 200 mg Duloxetine HCl (Cymbalta Cap*) 60 mg PO BEDTIME [facility] Last Admin: 07/25/19 20:53 Dose: 60 mg Fentanyl (Duragesic Patch 100 Mcg/Hr *) 200 mcg TRANSDERM Q72H [facility] Last Admin: 07/24/19 10:42 Dose: 200 mcg Fentanyl (Duragesic Patch 50 Mcg/Hr*) 50 mcg TRANSDERM Q72H [facility] Last Admin: 07/24/19 10:42 Dose: 50 mcg Gabapentin (Neurontin Cap(*)) 600 mg PO TID [facility] Last Admin: 07/26/19 14:34 Dose: 600 mg Heparin Sodium (Porcine) (Heparin Flush Port (Ivad)) 5 ml FLUSH DAILY [facility]; Protocol Last Admin: 07/26/19 08:18 Dose: Not Given Hydromorphone HCl (Dilaudid Inj1s*) 3 mg IV Q2H PRN PRN Reason: PAIN - SEVERE Last Admin: 07/26/19 14:35 Dose: 3 mg Azithromycin 250 mg/ Sodium (Chloride) 250 mls @ 250 mls/hr IVPB Q24H [facility] Last Admin: 07/25/19 20:55 Dose: 250 mls/hr Potassium Chloride/Sodium Chloride (Ns 0.9% W/ 20 Meq Kcl 1000 Ml*) 1,000 mls @ 75 mls/hr IV PER RATE [facility] Last Admin: 07/26/19 14:33 Dose: 75 mls/hr Piperacillin Sod/Tazobactam (Sod 3.375 gm/ Sodium Chloride) 100 mls @ 25 mls/ hr IVPB Q8HR [facility] Last Admin: 07/26/19 14:33 Dose: 25 mls/hr Lactulose (Lactulose*) 15 ml PO TID [facility] Last Admin: 07/26/19 14:34 Dose: 15 ml Mirtazapine (Remeron Tab*) 30 mg PO DAILY [facility] Last Admin: 07/26/19 08:17 Dose: 30 mg Ondansetron HCl (Zofran Tab*) 4 mg PO .6X/DAY PRN PRN Reason: NAUSEA Oxycodone HCl (Roxycodone Tab*) 10 mg PO Q4H PRN PRN Reason: PAIN - MODERATE Last Admin: 07/26/19 00:52 Dose: 10 mg Pharmacy Consult (Zosyn Per Pharmacy*) 1 note FOLLOW UP .ZOSYN PER PHARMACY [facility] Pharmacy Profile Note (Fentanyl Patch Check Q Shift) 1 note FOLLOW UP 0700, 1900 [facility] Last Admin: 07/26/19 07:04 Dose: 1 note Rivaroxaban (Xarelto(*)) 20 mg PO DAILY@1700 [facility] Last Admin: 07/25/19 16:19 Dose: 20 mg Trazodone HCl (Desyrel Tab*) 50 mg PO BEDTIME [facility] Last Admin: 07/25/19 20:54 Dose: 50 mg Vital Signs - 8 hr 07/26/19 07/26/19 07/26/19 08:17 10:22 11:43 Temperature 98.4 F Pulse Rate 62 Respiratory 18 18 17 Rate Blood Pressure 128/60 (mmHg) O2 Sat by Pulse 99 Oximetry 07/26/19 07/26/19 07/26/19 12:21 14:34 14:35 Temperature Pulse Rate Respiratory 18 18 18 Rate Blood Pressure (mmHg) O2 Sat by Pulse Oximetry 07/26/19 15:08 Temperature 97.3 F Pulse Rate 78 Respiratory 16 Rate Blood Pressure 138/63 (mmHg) O2 Sat by Pulse 99 Oximetry Oxygen Devices in Use Now: Nasal Cannula Appearance: obese comfortable-appearing woman in NAD, lying flat and speaking full sentences without increased WOB Eyes: No Scleral Icterus Ears/Nose/Mouth/Throat: Clear Oropharnyx, Mucous Membranes Moist Neck: NL Appearance and Movements; NL JVP, Trachea Midline Respiratory: Symmetrical Chest Expansion and Respiratory Effort, Clear to Auscultation Cardiovascular: NL Sounds; No Murmurs; No JVD, RRR Abdominal: NL Sounds; No Tenderness; No Distention, No Hepatosplenomegaly Extremities: - - 1+ edema over ankles Neurological: Alert and Oriented x 3 Result Diagrams: 07/26/19 05:40 07/26/19 05:40 Microbiology and Other Data: Microbiology 07/23/19 18:05 Aerobic Blood Culture - Preliminary Blood Venous No Growth Day 2 Anaerobic Blood Culture - Preliminary No Growth Day 2 07/23/19 18:05 Aerobic Blood Culture - Preliminary Blood Venous No Growth Day 2 Anaerobic Blood Culture - Preliminary No Growth Day 2 Assess/Plan/Problems-Billing Assessment: 43W with metastatic HER2+ BCA s/p C4 kadcyla 07/17/19 who presents with recurrent VÁZQUEZ, fever and malaise with incidental finding of hyperammonemia. No clear infectious source. Recent [employer] evaluation including MRI and LP was negative. This is second admission for fever and VÁZQUEZ, last admission 07/06/19 with TDM-1 on 06/09/19, this admission after TDM-1 on 07/17/19. Review of recent imaging and blood work indicate disease is responding. DDx fever includes occult infection, tumor fever, reaction to medication. Both pyrexia and VÁZQUEZ are listed as AE fo TDM-1, at 10% and 28% of patient respectively. Plan: 1. VÁZQUEZ/fever. - Appreciate ID consultation - CMV Ab panel pending - continue current antibiotics - starting APAP RTC, cont on NSAID, opioids, gabapentin, and SNRI - will increase q2h Dilaudid dosing from 2g to 3g IV, as pt is not exhibiting significant AE of opioids and she reports this is the only thing that helps; her outpatient opioid dose is quite high 2. Hyperammonemia. Unclear etiology. - cont lactulose for now and check ammonia on Saturday 3. Metastatic HER2+ BCA - s/p C4 kadcyla 07/17 - If fever is SE, will plan regimen to manage. 4. Trazodone and mirtazapine at night for sleep.
[2019-07-26] MEDS: Rivaroxaban TAB(*) 20 MG TAB PO SCH (16:38)
[2019-07-26 20:16] LABS: % Iron Saturation 5 % (15-55); Iron 20 ug/dL (50-212); Total Iron Binding Capacity 410 mcg/dL (250-450); Transferrin 293 mg/dL (203-362)
[2019-07-26 20:38] LABS: Ferritin 20.3 ng/mL (11-307)
[2019-07-26 20:42] LABS: Folate 7.38 ng/mL (>3.99)
[2019-07-26] MEDS: traZODone TAB* 50 MG TAB PO SCH (21:12)
[2019-07-26] MEDS: DULoxetine DR CAP* 30 MG CAP.DR PO SCH (21:12)
[2019-07-26] MEDS: Azithromycin IV(*) 250 MG in NS 0.9% 250 ML* 250 ML IVPB SCH (21:13)
[2019-07-27] MEDS: ALPRAZolam TAB* 0.5 MG PO PRN (00:28)
[2019-07-27] MEDS: HYDROmorphone INJ1* 1 MG/ML SYRINGE IV PRN ×6 (01:27→12:28)
[2019-07-27] MEDS: Acetaminophen TAB* 325 MG PO SCH ×2 (02:07→11:45)
[2019-07-27] MEDS: oxyCODONE TAB* 5 MG TAB PO PRN ×2 (02:21→14:31)
[2019-07-27] MEDS: ZOSYN 3.375 GM Q8H per EXTENDED INFUSION IVPB SCH ×4 (05:27→14:32)
[2019-07-27 06:18] LABS: Hematocrit 26 % (35-47); Hemoglobin 8.3 g/dL (12.0-16.0); Mean Corpuscular HGB Conc 32 g/dL (31-36); Mean Corpuscular Hemoglobin 26 pg (27-31); Mean Corpuscular Volume 79 fL (80-97); Mean Platelet Volume 8.6 fL (7.4-10.4); Platelet Count 110 10^3/uL (150-450); Red Blood Count 3.25 10^6 /uL (3.70-4.87); Red Cell Distribution Width 22 % (10-15); White Blood Count 10.2 10^3/uL (3.5-10.8)
[2019-07-27 06:34] LABS: BUN/Creatinine Ratio 15.5 (8-20); Calcium 8.6 mg/dL (8.6-10.3); EGFR African American 138.6 (>60); EGFR Non-African American 114.6 (>60); Potassium 3.8 mmol/L (3.5-5.0)
[2019-07-27] MEDS: fentaNYL Patch Check Q Shift 1 NOTE FOLLOW UP SCH (07:04)
[2019-07-27] MEDS: Dexamethasone TAB* 1 MG PO SCH (07:51)
[2019-07-27] MEDS: BREXPIPRAZOLE 1 MG PO SCH (07:51)
[2019-07-27] MEDS: Mirtazapine TAB* 15 MG PO SCH (07:51)
[2019-07-27] MEDS: Cetirizine* 10 MG TAB PO SCH (07:51)
[2019-07-27] MEDS: celeCOXIB CAP* 100 MG PO SCH (07:51)
[2019-07-27] MEDS: Lactulose* 15 ML UDC PO SCH (07:51)
[2019-07-27] MEDS: Gabapentin CAP(*) 300 MG PO SCH ×2 (07:52→14:31)
[2019-07-27] MEDS: fentaNYL PATCHs 100 MCG/HR TRANSDERM SCH (08:02)
[2019-07-27] MEDS: fentaNYL PATCH 50 MCG/HR TRANSDERM SCH (08:02)
--- NOTE | 2019-07-27 11:09 | PN ---
Progress Note - Progress Note Date of Service: 07/27/19 SOAP: Subjective: [Pushpa continues with a significant VÁZQUEZ. She receives partial relief with IV dilaudid, which generally brings the pain down from a ~8/10 to ~6/10. She has no periods of time with out a headache. Reports no nausea, eating well. She is having freq bouts of diarrhea related to lactulose. No abd cramping. No c/ o vision changes, dizziness, numbness or weakness. She is quite lethargic. Objective: [ Vital Signs: Temp Pulse Resp BP Pulse Ox 97 F 69 18 148/57 99 07/27/19 03:15 07/27/19 03:15 07/27/19 10:15 07/27/19 03:15 07/27/19 03:15 Acetaminophen (Tylenol Tab*) 975 mg PO Q8H [facility] Last Admin: 07/27/19 02:07 Dose: 975 mg Alprazolam (Xanax Tab*) 1 mg PO QID PRN PRN Reason: ANXIETY Last Admin: 07/27/19 00:28 Dose: 1 mg Brexpiprazole (Rexulti) 2 mg PO DAILY [facility] Last Admin: 07/27/19 07:51 Dose: 2 mg Celecoxib (Celebrex Cap*) 100 mg PO BID [facility] Last Admin: 07/27/19 07:51 Dose: 100 mg Cetirizine HCl (Zyrtec*) 10 mg PO DAILY [facility] Last Admin: 07/27/19 07:51 Dose: 10 mg Dexamethasone (Decadron Tab*) 2 mg PO BID [facility] Last Admin: 07/27/19 07:51 Dose: 2 mg Docusate Sodium (Colace Cap*) 200 mg PO BID PRN PRN Reason: CONSTIPATION Last Admin: 07/24/19 13:44 Dose: 200 mg Duloxetine HCl (Cymbalta Cap*) 60 mg PO BEDTIME [facility] Last Admin: 07/26/19 21:12 Dose: 60 mg Fentanyl (Duragesic Patch 100 Mcg/Hr *) 200 mcg TRANSDERM Q72H [facility] Last Admin: 07/27/19 08:02 Dose: 200 mcg Fentanyl (Duragesic Patch 50 Mcg/Hr*) 50 mcg TRANSDERM Q72H [facility] Last Admin: 07/27/19 08:02 Dose: 50 mcg Gabapentin (Neurontin Cap(*)) 600 mg PO TID [facility] Last Admin: 07/27/19 07:52 Dose: 600 mg Heparin Sodium (Porcine) (Heparin Flush Port (Ivad)) 5 ml FLUSH DAILY [facility]; Protocol Last Admin: 07/27/19 07:52 Dose: Not Given Hydromorphone HCl (Dilaudid Inj1s*) 3 mg IV Q2H PRN PRN Reason: PAIN - SEVERE Last Admin: 07/27/19 10:15 Dose: 3 mg Azithromycin 250 mg/ Sodium (Chloride) 250 mls @ 250 mls/hr IVPB Q24H [facility] Last Admin: 07/26/19 21:13 Dose: 250 mls/hr Potassium Chloride/Sodium Chloride (Ns 0.9% W/ 20 Meq Kcl 1000 Ml*) 1,000 mls @ 75 mls/hr IV PER RATE [facility] Last Admin: 07/26/19 14:33 Dose: 75 mls/hr Piperacillin Sod/Tazobactam (Sod 3.375 gm/ Sodium Chloride) 100 mls @ 25 mls/ hr IVPB Q8HR [facility] Last Admin: 07/27/19 05:27 Dose: 25 mls/hr Lactulose (Lactulose*) 15 ml PO BID [facility] Mirtazapine (Remeron Tab*) 30 mg PO DAILY [facility] Last Admin: 07/27/19 07:51 Dose: 30 mg Ondansetron HCl (Zofran Tab*) 4 mg PO .6X/DAY PRN PRN Reason: NAUSEA Oxycodone HCl (Roxycodone Tab*) 10 mg PO Q4H PRN PRN Reason: PAIN - MODERATE Last Admin: 07/27/19 02:21 Dose: 10 mg Pharmacy Consult (Zosyn Per Pharmacy*) 1 note FOLLOW UP .ZOSYN PER PHARMACY [facility] Pharmacy Profile Note (Fentanyl Patch Check Q Shift) 1 note FOLLOW UP 0700, 1900 [facility] Last Admin: 07/27/19 07:04 Dose: 1 note Trazodone HCl (Desyrel Tab*) 50 mg PO BEDTIME [facility] Last Admin: 07/26/19 21:12 Dose: 50 mg Laboratory Results - last 24 hr 07/26/19 07/26/19 07/27/19 05:40 19:30 05:30 WBC RBC Hgb Hct MCV MCH MCHC RDW Plt Count MPV Sodium 140 Potassium 3.9 Chloride 102 Carbon Dioxide 34 H Anion Gap 4 BUN 9 Creatinine 0.54 Est GFR ( Amer) 150.5 Est GFR (Non-Af Amer) 124.4 BUN/Creatinine Ratio 16.7 Glucose 111 H Calcium 8.7 Magnesium 2.0 Iron Cancelled 20 L TIBC Cancelled 410 % Saturation Cancelled 5 L Unsat Iron Binding Cancelled < 395 Transferrin Cancelled 293 Ferritin Cancelled 20.3 Total Bilirubin 0.50 AST 28 ALT 11 Alkaline Phosphatase 121 H Ammonia 80 H Total Protein 6.5 Albumin 3.5 Globulin 3.0 Albumin/Globulin Ratio 1.2 Vitamin B12 Cancelled 333 Folate Cancelled 7.38 07/27/19 07/27/19 05:30 05:30 WBC 10.2 RBC 3.25 L Hgb 8.3 L Hct 26 L MCV 79 L MCH 26 L MCHC 32 RDW 22 H Plt Count 110 L MPV 8.6 Sodium 141 Potassium 3.8 Chloride 102 Carbon Dioxide 35 H Anion Gap 4 BUN 9 Creatinine 0.58 Est GFR ( Amer) 138.6 Est GFR (Non-Af Amer) 114.6 BUN/Creatinine Ratio 15.5 Glucose 112 H Calcium 8.6 Magnesium Iron TIBC % Saturation Unsat Iron Binding Transferrin Ferritin Total Bilirubin AST ALT Alkaline Phosphatase Ammonia Total Protein Albumin Globulin Albumin/Globulin Ratio Vitamin B12 Folate Exam: Gen: lethargic appearing, in NAD. She has trouble keeping her eyes open and drifts off to sleep easily HEENT: MMM CV: RRR, no m/r/g Resp: few rhonchi Abd: soft, nonTTP Ext: trace peripheral edema Neuro: no focal deficits Assessment: [This is a 43 yo female with metastatic HER2+ BCA s/p C4 kadcyla 07/17/19 who presents with recurrent VÁZQUEZ, fever and malaise with incidental finding of hyperammonemia of unclear significance. No clear infectious source. Recent [employer] evaluation including MRI and LP was negative. This is second admission for fever and VÁZQUEZ. 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 It is possible that this is all a result of SEs related to Kadcyla. Her VÁZQUEZ continues to be poorly controlled and requiring escalating doses of narcotics. Plan: [1. VÁZQUEZ/fever - remains afebrile since admission - Appreciate ID consultation - CMV Ab panel and tick borne panel are both negative, although Lyme serology is still pending - continue current antibiotics - requested neurology consultation to comment on her VÁZQUEZ as it is not entirely clear what is driving this process - if related to kadcyla you would expect her symptoms to start to wane 2. Hyperammonemia. - Unclear clinical significance - improved slightly on lactulose - decrease to bid dosing as she is having 4-5 episodes of diarrhea daily 3. Metastatic HER2+ BCA - s/p C4 kadcyla 07/17 - evidence of good disease control at this time 4. h/o PE/DVT - chronically anticoagulated with Xarelto - hold starting today in preparation for possible repeat LP Dispo: pending neurology consultation, unable to dc home until pain is manageable with oral medications
[2019-07-27] MEDS ORDERED: Albuterol/Ipratropium NEB.SOL* Albuterol 2.5 MG/Ipratropium 0.5 MG 3 ML INH PRN (11:26)
--- NOTE | 2019-07-27 12:35 | PN ---
Progress Note - Progress Note Date of Service: 07/27/19 SOAP: Subjective: CC: Fevers and headache HPI: Ms. Guevara is a 43 yo female with PMH significant for metastatic breast cancer with brain and liver mets, asthma, chronic back pain, depression, migraines, and obesity; who was admitted to the hospital for fevers. Denies fever, chills, nausea, or vomiting. Reports a few loose stools daily. Continues to have a headache. Reports that back pain is at baseline. She is requesting to go home today. Objective: Vital Signs - 8 hr 07/27/19 07/27/19 07/27/19 10:15 11:15 11:49 Temperature 97.8 F Pulse Rate 80 Respiratory 18 21 18 Rate Blood Pressure 161/86 (mmHg) O2 Sat by Pulse 93 Oximetry Physical Exam: General: NAD, laying in bed Neurological: Alert and Oriented HEENT: Moist MM, no thrush Cardiovascular: Heart rate regular Respiratory: Lung sounds clear Abdominal: Bowel sounds present; ABD soft, large and non tender MSK: No tenderness with palpation of the neck, back or spine Skin: No rash Laboratory Results - last 24 hr 07/26/19 07/27/19 07/27/19 19:30 05:30 05:30 Sodium 141 Potassium 3.8 Chloride 102 Carbon Dioxide 35 H Anion Gap 4 BUN 9 Creatinine 0.58 Est GFR ( Amer) 138.6 Est GFR (Non-Af Amer) 114.6 BUN/Creatinine Ratio 15.5 Glucose 112 H Calcium 8.6 Iron 20 L TIBC 410 % Saturation 5 L Unsat Iron Binding < 395 Transferrin 293 Ferritin 20.3 Ammonia 80 H Vitamin B12 333 Folate 7.38 07/27/19 05:30 WBC 10.2 RBC 3.25 L Hgb 8.3 L Hct 26 L MCV 79 L MCH 26 L MCHC 32 RDW 22 H Plt Count 110 L MPV 8.6 Microbiology 07/23/19 18:05 Aerobic Blood Culture - Preliminary Blood Venous No Growth Day 3 Anaerobic Blood Culture - Preliminary No Growth Day 3 07/23/19 18:05 Aerobic Blood Culture - Preliminary Blood Venous No Growth Day 3 Anaerobic Blood Culture - Preliminary No Growth Day 3 Assessment: 1. Fever. Afebrile since admission. No leukocytosis or neutropenia. Urine culture with no growth. Chest CT with bibasilar atelectasis. Blood cultures with no growth. Suspect secondary to drug reaction. 2. Headache. Ongoing, history of brain metastasis. Suspect secondary to brain metastasis vs rebound headaches from pain medications. 3. Metastatic breast cancer. 4. Chronic back pain. Pain is at baseline. Plan: Discontinue Azithromycin. Continue Zosyn today and will plan to discontinue in the AM if she is still doing well. She has requested to be discharged today, ok to discharge without ABX if she goes home today.
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
[2019-07-27 16:50] VITALS: BP 161/86
[2019-07-27] MEDS ORDERED: Pantoprazole TAB * 40 MG TAB PO SCH (21:00)
[2019-07-27] MEDS ORDERED: Lactulose* 15 ML UDC PO SCH (21:00)
[2019-07-27] MEDS ORDERED: Mometasone/Formoter 200/5 MDI INH SCH (21:00)
--- NOTE | 2019-07-28 01:42 | DS ---
CC: Dr. Jill Hill; Dr. Browne; Dr. Orlando Henderson * DISCHARGE SUMMARY: DATE OF ADMISSION: 07/23/19 DATE OF DISCHARGE: 07/27/19 PRIMARY ONCOLOGIST AND ATTENDING PHYSICIAN: Dr. Jill Hill.* (DICTATED BY EBONY GALAN) CONSULTING INFECTIOUS DISEASE SPECIALIST: Dr. Orlando Henderson. CONSULTING NEUROLOGIST: Dr. Browne. DISCHARGING PROVIDER: EBONY Galan PRIMARY DISCHARGE DIAGNOSES: 1. Fever and intractable headache of unclear etiology. 2. Metastatic HER2 positive breast cancer, currently receiving Kadcyla with last infusion 07/17/19, cycle IV. 3. Hyperammonemia. DISCHARGE MEDICATIONS: 1. Albuterol 2 puffs inhaled q.4 hours as needed for shortness of breath. 2. Alprazolam 1 mg p.o. 4 times daily as needed for anxiety. 3. Rexulti 2 mg p.o. daily. 4. Symbicort 2 puffs inhaled twice a day. 5. Soma 250 mg p.o. q.4 hours as needed for muscle spasm. 6. Cetirizine 10 mg p.o. daily. 7. Docusate 200 mg p.o. twice daily. 8. Cymbalta 60 mg p.o. at bedtime. 9. Fentanyl patch 200 mcg by transdermally and changed every 72 hours. 10. Gabapentin 600 mg p.o. 3 times daily. 11. Mirtazapine 30 mg p.o. daily. 12. Omeprazole 20 mg p.o. twice daily. 13. Zofran 4 mg p.o. 6 times daily as needed for nausea and vomiting. 14. MiraLAX 17 g p.o. daily as needed for constipation. 15. Potassium chloride 20 mEq p.o. daily. 16. Trazodone 400 mg p.o. daily. 17. Celebrex 100 mg p.o. twice daily. 18. Dexamethasone 2 mg p.o. daily. 19. Dilaudid 48 mg p.o. q. 4 hours as needed for pain. 20. Xarelto 20 mg daily with instructions to hold until after lumbar puncture. HOSPITAL IMAGIN. CT chest 07/23/19, shows mild bibasilar subsegmental atelectasis or parenchymal scarring, otherwise clear. Stable nodule in the lateral aspect of the right breast measuring 1.6 cm. Stable sclerotic focus of the superior endplate of T10 vertebra. 2. MRI of the abdomen 07/24/19 shows hepatomegaly with hepatic steatosis without focal lesions and no changes noted since exam in January. HOSPITAL COURSE: This is a 43-year-old female with metastatic HER2 positive breast cancer with prior solitary brain metastases status post gamma knife several months ago, who was recently hospitalized with intractable headache and neck pain. Workup at that time included an MRI which questioned possible progression of small right sided brain lesion without significant vasogenic edema. Lumbar puncture was completed shortly thereafter with essentially normal cell counts and negative cytology. The patient subsequently followed up with radiation oncologist at [facility] with concern for progression of previously treated lesion. The radiation oncologist felt that this was more of a pseudo progression related to differences in imaging technique and the lesion was stable instead. The patient had been started on corticosteroids and started to taper off of these and resumed her usual therapy with Kadcyla. Shortly after her Kadcyla infusion, the patient developed worsening headache and intermittent fevers at home, for which she was seen in the oncology office and subsequently admitted for further evaluation and management. Blood cultures were collected and negative. Initial labs included a normal white blood cell count and mild anemia and thrombocytopenia near her baseline. Lactic acid was initially elevated at 2.7 and quickly corrected to 1.5 with a fluid bolus. She was noted to be quite lethargic and ammonia was subsequently checked and noted to be 73. The patient had no other sequela of liver failure, it was unclear what the significance hyperammonemia was. The patient was treated empirically with broad spectrum antibiotics including Zosyn and azithromycin. CT of the chest was completed to evaluate for occult pneumonia which was negative. Due to the concern for possible liver disease in previously negative ultrasound of the liver, an MRI was completed which showed some mild hepatomegaly with steatosis but no focal liver lesions and nor was there an appearance of cirrhosis. The patient was seen by Infectious Disease, who recommended continuing broad spectrum antibiotics and waiting for culture results, which remained as negative as discussed above. She remained afebrile throughout her hospital stay but remained with a significant headache and need for escalating opioid doses to control her symptoms. Neurology was subsequently consulted for evaluation of her headache as it was clearly not improving with other support of care. Neurology recommended evaluating for pseudotumor cerebri, but the patient very much desired discharge to home and was felt that she could complete further evaluation as an outpatient. Of note, the patient was continuing to require high and frequent doses of IV Dilaudid at the time of discharge, but despite this she desired discharge home. We provided her with a prescription for Dilaudid tablets to replace her usual oxycodone for pain relief. DISPOSITION AND FOLLOWUP PLAN: The patient is being discharged to home in stable condition. Medications are as outlined above. Further followup includes a close follow up with oncology office later this week. Recommend a lumbar puncture with opening pressures as well as an ophthalmologic exam to evaluate for possibility of pseudotumor cerebri. If evaluation is negative could consider a venous MRI of the brain to evaluate for venous thrombus although this is less likely given her chronic anticoagulation with Xarelto. Her anticoagulation will be held at the time of discharge in anticipation of an outpatient lumbar puncture and the patient was given these instructions. It is certainly possible that the patient's recurrent fevers and headache are related to Kadcyla therapy and this will be determined by Oncology if additional outpatient evaluation is negative. EBONY GALAN [id number]/[facility] #: [id number] SANKET
== END 2019-07-27 15:00 | disposition home or self-care (01) | DRG 722 ==
LOC: MED 18:22
PROVIDERS: ADMIT Internal Medicine Hematology & Oncology; ATTEND Internal Medicine Hematology & Oncology
DX: R50.9 Fever, unspecified (principal); E72.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 urea cycle metabolism, unspecified; C79.31 Secondary malignant neoplasm of brain; C78.7 Secondary malignant neoplasm of liver and intrahepatic bile duct; J98.11 Atelectasis; C79.51 Secondary malignant neoplasm of bone; R51 Headache; C50.919 Malignant neoplasm of unspecified site of unspecified female breast; J44.9 Chronic obstructive pulmonary disease, unspecified; M54.9 Dorsalgia, unspecified; M48.02 Spinal stenosis, cervical region; F32.9 Major depressive disorder, single episode, unspecified; G43.909 Migraine, unspecified, not intractable, without status migrainosus; E66.9 Obesity, unspecified; F17.210 Nicotine dependence, cigarettes, uncomplicated; M50.30 Other cervical disc degeneration, unspecified cervical region; Z88.8 Allergy status to other drugs, medicaments and biological substances; Z17.0 Estrogen receptor positive status [ER+]; Z79.01 Long term (current) use of anticoagulants; Z79.891 Long term (current) use of opiate analgesic; Z79.899 Other long term (current) drug therapy; Z68.37 Body mass index [BMI] 37.0-37.9, adult; Z80.49 Family history of malignant neoplasm of other genital organs; Z79.51 Long term (current) use of inhaled steroids
CPT/HCPCS: 36415; 71260; 74183; 80048; 80053; 82140; 82607; 82728; 82746; 83540; 83550; 83735; 85025; 85027; 86140; 86618; 86644; 86645; 87040; 87798; 99222; 99232; 99233; 99239; A9270-GY; A9581; J0456; J1170; J1642; J2543; Q9967

== ENCOUNTER 2019-08-07 16:15 | Emergency (ER) | payer OTHER ==
--- OUTSIDE RECORDS SUMMARY | 2019-08-07 16:32 | XMS REPORT ---
:1975 Author Organization [facility] Care Team Providers Name Role Phone [...] Resolve 2017-072018-08-27 Love pain d 08-16 15:00:00 [place] 10:20: [id number] 00 Respiratory smoker Respirator Resolve 2017-072018-07-23 Love y d 08-16 15:00:00 [place] 10:20: [id number] 00 Endo/Jose anti-coagul Endo/Jose Resolve 2017-072018-06-25 Love ation d 08-16 15:00:00 Carly therapy 10:20: [id number] 00 Nutrition nutritional Nutrition Resolve 2017-072018-07-04 Love restriction d 08-16 15:00:00 [place] s 10:20: [id number] 00 Neuro confusion Neuro/Emot Resolve 2017-072018-08-06 Love present ion d 08-16 15:00:00 [place] 10:20: [id number] 00 Neuro anxiety Neuro/Emot Resolve 2017-072018-08-06 Love present ion d 08-16 15:00:00 [place] 10:20: [id number] 00 Neuro depressive Neuro/Emot Resolve 2017-072018-08-06 Love feelings ion d 08-16 15:00:00 [place] present 10:20: [id number] 00 Safety risk for Safety Resolve 2017-072018-07-04 Love hospitaliza d 08-16 15:00:00 [place] tion 10:20: [id number] 00 Safety fall risk Safety Resolve 2017-072018-07-04 Ericka factor d 08-16 15:00:00 Vivian present 10:20: 00 Musculoskel requires Musculoske Resolve 2017-072018-07-04 Love etal human letal d 08-16 15:00:00 [place] assist to 10:20: [id number] leave home 00 Cardio hypertensio Cardiovasc Resolve [...] [place] risk 15:00: 00 Social financial BRISEYDA: Resolve 2017-072019-07-20 [facility] resource Social d 2-10 15:00:00 [place] deficit Services 14:00: [id number] 00 Social knowledge/s BRISEYDA: Resolve 2017-072018-09-22 [facility] kill Social d 2-10 13:00:00 [place] deficit - Services 14:00: [id number] pt 00 Social knowledge/s BRISEYDA: Resolve 2017-072018-09-22 [facility] kill Social d 2-10 13:00:00 [place] deficit - Services 14:00: [id number] cg 00 Musculoskel requires Musculoske Resolve 2017-072018-07-16 [place] etal human letal d 2-19 15:00:00 [place] assist to 15:30: leave home 00 Diagnoses knowledge/s Diagnoses Active 2017-07 [facility] kill 09-14 [place] deficit: cg 13:00: [id number] 00 Integument skin Integument Resolve 2017-072018-08-06 [place] integrity d 2-26 15:00:00 [place] risk 15:00: 00 Respiratory oxygen Respirator Unknown [place] treatments y 07-30 [place] in home 15:00: 00 Respiratory smoker Respirator Resolve 2018-09-10 [place] y d 1-09 15:00:00 [place] 15:00: 00 Respiratory lung sounds Respirator Resolve 2018-08-13 Shelby deficit y d 1-23 15:00:00 [place] 15:00: 00 Integument surgical Integument Resolve 2018-08-20 Shelby wound d 1-23 15:15:00 [place] present 15:00: 00 Neuro anxiety Neuro/Emot Resolve 2018-08-27 [place] present ion d 1-23 15:00:00 [place] 15:00: 00 Neuro depressive Neuro/Emot Resolve 2018-08-27 [place] feelings ion d 1-23 15:00:00 [place] present 15:00: 00 Musculoskel requires Musculoske Resolve 2019-2018-08-20 [place] etal human letal d 1-23 15:15:00 [...] Active [facility] hospitaliza 2-18 [place] tion 14:00: [id number] Safety can be left Safety Unknown Kezia alone for 2-18 [place] only short 14:00: [id number] periods 00 Pain frequent Pain Mgmt Resolve 2018-09-24 Lam pain d 2-27 15:00:00 Br[place] 15:50: [id number] 00 Safety can be left Safety Resolve 2018-10-08 Kezia alone for d 3-04 15:00:00 [place] only short 13:00: [id number] periods 00 Cardio edema Cardiovasc Resolve 2018-10-08 [place] ular d 3-13 15:00:00 [place] 15:00: 00 Social knowledge/s BRISEYDA: Resolve 2018-10-10 [place] Services kill Social d 3-13 16:00:00 [place] deficit - Services 15:00: pt 00 Pain frequent Pain Mgmt Resolve 2018-2018-10-29 [place] pain d 3-20 13:00:00 [place] 15:00: 00 Respiratory smoker Respirator Resolve 2018-10-15 [place] y d 3-20 15:00:00 [place] 15:00: 00 Neuro depressive Neuro/Emot Resolve 2018-10-22 Shelby feelings ion d 3-20 15:00:00 [place] present 15:00: 00 Musculoskel requires Musculoske Resolve 2018-10-15 Shelby shen human letal d 3- 15:00:00 [place] assist to 15:00: leave home 00 Elimination nausea/vomi Eliminatio Resolve 2018-10-22 Shelby soni n d 3 15:00:00 [place] 15:00: 00 Medication oral med Meds Resolve 2018-11-05 [place] assistance d 10-15 13:00:00 [place] required 15:00: 00 Respiratory dyspnea Respirator Unknown 2018- [place] present y 4- [place] 15:00: 00 Respiratory smoker Respirator Resolve 2018-10-29 Shelby y d 4-03 13:00:00 [place] 15:00: 00 Neuro anxiety Neuro/Emot Resolve 2018-11-05 [place] present ion d 4-03 13:00:00 [place] 15:00: 00 Neuro depressive Neuro/Emot Resolve 2018-11-05 Lam feelings ion d 4-08 13:00:00 Briones present 15:45: [id number] 00 Respiratory lung sounds Respirator Resolve 2018-10-29 [place] deficit y d 4-10 13:00:00 [place] 13:00: 00 Infection s/s of Infection Resolve 2018-2019-02-04 Shelby infection d 4-17 12:30:00 [place] 13:00: 00 Respiratory smoker Respirator Resolve 2018-11-05 [place] y d 4-17 13:00:00 [place] 13:00: 00 Neuro depressive Neuro/Emot Resolve 2018-12-10 Lam feelings ion d 4-20 12:30:00 Briones present 12:20: [id number] 00 Respiratory smoker Respirator Resolve 2018-11-20 [place] y d 4-24 12:30:00 [place] 12:30: 00 Respiratory oxygen Respirator Resolve 2018-2018-12-04 Shelby ruby y d 5-08 12:30:00 [place] in home 12:30: 00 Respiratory smoker Respirator Resolve 2019-01-07 [place] y d 5-08 12:30:00 [place] 12:30: 00 Safety can be left Safety Resolve 2018-12-10 [place] alone for d 11-26 12:30:00 [place] only short 12:30: periods 00 Social knowledge/s BRISEYDA: Resolve 2018-11-26 [facility] kill Social d 11-26 [facility]:30[facility] 13:30: [id number] pt 00 Respiratory lung sounds Respirator Resolve [...] 12:30: 00 Elimination nausea/vomi Eliminatio Resolve 2018-12-31 Laviniamaryjo stuartg n d 12-18 12:30:00 Narendra 12:30: [id number] 00 Respiratory lung sounds Respirator Resolve 2018-12-24 [place] deficit y d 12-24 12:30:00 [place] 12:30: 00 Elimination diarrhea Eliminatio Resolve 2018-12-31 Shelby rodriguez d 12-24 12:30:00 [place] 12:30: 00 Cardio hypertensio Cardiovasc Resolve 2019-01-07 Shelby bravo d 12-31 12:30:00 [place] 12:30: 00 Respiratory lung sounds Respirator Resolve 2018-12-31 Shelby fregoso y d 12-31 12:30:00 [place] 12:30: 00 Respiratory asthma Respirator Resolve 2018-12-31 Shelby trejo d 12-31 12:30:00 [place] 12:30: 00 Neuro anxiety Neuro/Emot Resolve 2019-01-07 Shelby present ion d 6-12 12:30:00 [place] 12:30: 00 Neuro depressive Neuro/Emot [...] knowledge/s Endo/Jose Resolve 2019-02-11 Shelby kill d 614 12:30:00 [place] deficit 11:30: hypo/hyperg 00 lycemia: [...] Respirator Resolve 2019-01-08 [place] present y d 619 15:00:00 [place] 12:30: 00 Nutrition nutritional Nutrition Resolve 2019-01-08 [place] restriction d 620 15:00:00 [place] s 15:00: 00 Neuro depressive [...] restriction d 01-16 12:30:00 [place] s 15:00: [id number] Safety can be left Safety Resolve 2019-02-18 Kezia alone for d 01-16 12:10:00 [place] only short 15:00: [id number] periods 00 Respiratory smoker Respirator Resolve 2019-01-21 [place] y d 01-21 12:30:00 [place] 12:30: 00 Nutrition nutritional Nutrition Resolve 2019-01-21 Shelby risk d 7 12:30:00 [place] 12:30: 00 Musculoskel requires Musculoske Resolve 2019-01-28 Shelby etal human letal d 01-21 13:00:00 [place] assist to 12:30: leave home 00 Respiratory smoker Respirator Resolve 2019-01-28 [place] y d 7-10 13:00:00 [place] 13:00: 00 Respiratory dyspnea Respirator Unknown 2018- [place] present y 7-10 [place] 13:00: 00 Respiratory oxygen Respirator Unknown [place] treatments y 7-10 [place] in home 13:00: 00 Elimination diarrhea Eliminatio Resolve 2019-02-04 Shelby n d 7-10 12:30:00 [place] 13:00: 00 Elimination nausea/vomi Eliminatio Active Shelbymichael soni n 7-10 [place] 13:00: 00 Neuro anxiety Neuro/Emot Resolve 2019-02-18 Shelby gilmore ion d 7-10 12:10:00 [place] 13:00: 00 Social knowledge/s BRISEYDA: Active [place] Services kill Social 7-10 [place] deficit - Services 13:00: pt 00 Social knowledge/s BRISEYDA: Active [facility] kill Social 7-12 [facility] deficit - Services 14:00: [id number] cg 00 Respiratory lung sounds Respirator Resolve 2019-02-04 [place] deficit y d 7-17 12:30:00 [place] 12:30: 00 Respiratory oxygen Respirator Resolve 2019-02-04 [place] treatments y d 7- 12:30:00 [place] in home 12:30: 00 Respiratory smoker Respirator Resolve 2019-02-04 [place] y d 7- 12:30:00 [place] 12:30: 00 Musculoskel requires Musculoske [...] 00 Respiratory lung sounds Respirator Resolve 2019-02-18 [place] deficit y d 7 12:10:00 [place] 12:10: 00 Respiratory dyspnea Respirator Resolve 2019-07-16 [place] present y d 7 12:30:00 [place] 12:10: 00 Respiratory oxygen Respirator Resolve 2019-02-18 [place] treatments y d 7 12:10:00 [place] in home 12:10: 00 Neuro depressive Neuro/Emot Unknown Kezia feelings ion 02-18 [place] present 14:30: [id number] 00 Respiratory lung sounds Respirator Resolve 2019-03-04 [...] Safety Resolve 2019-04-29 Kezia alone for d 8- 12:30:00 [place] only short 15:30: [id number] periods 00 Respiratory smoker Respirator Resolve 2019-03-12 [...] smoker Respirator Resolve 2019-03-18 [place] y d 8 12:30:00 [place] 12:30: [...] 12:30:00 [place] 13:30: 00 Neuro depressive Neuro/Emot Resolve 2018-072019-07-28 Shelby feelings ion d 0-02 12:30:00 [place] present 13:30: 00 Musculoskel requires Musculoske [...] d 0-14 12:45:00 [place] only short 15:00: [id number] periods 00 Musculoskel requires Musculoske Resolve 2018-072019-05-06 [...] 00 Musculoskel requires Musculoske Resolve 2018-072019-06-10 Shelby ageel human letal d 1-20 12:00:00 [place] assist to 12:00: leave home 00 Respiratory oxygen Respirator Resolve 2018-072019-06-17 Shelby treatments y d 127 12:00:00 [place] in home 12:00: 00 Respiratory smoker Respirator Resolve 2018-072019-06-17 Shelby y d 08-17 12:00:00 [place] 12:00: 00 Musculoskel requires Musculoske Resolve 2018-072019-06-24 Shelby ageel human letal d 127 11:55:00 [place] assist [...] left Safety Active 2018-07 Kezia alone for 09-02 [place] only short 15:30: [id number] periods 00 Respiratory smoker Respirator Resolve 2018-072019-07-09 Shelby y d 2-19 12:15:00 [place] 12:15: 00 Musculoskel requires Musculoske Resolve 2018-072019-07-16 Shelby etal human letal d 2-19 12:30:00 [place] assist to 12:15: leave home 00 Respiratory oxygen Respirator Resolve 2018-072019-07-16 [place] treatments y d 09-16 12:30:00 [place] in home 12:30: 00 Respiratory smoker Respirator Resolve 2018-072019-07-16 [place] y d 09-16 12:30:00 [place] 12:30: 00 Respiratory oxygen Respirator Active 2019- [place] treatments y 1 [place] in home 12:30: 00 Respiratory pneumonia Respirator Resolve 2019-2019-07-28 Shelby y d 07-23 12:30:00 [place] 12:30: 00 Respiratory smoker Respirator Resolve 2019-2019-07-23 Shelby y d 07-23 12:30:00 [place] 12:30: 00 Respiratory dyspnea Respirator Active 2019- [place] present y 07-28 [place] 12:30: 00 Respiratory smoker Respirator Active 2019- Shelby y 1- [place] 12:30: 00 Endo/Jose diabetic Endo/Jose Active 2019- [facility] foot care -07 [place] 12:30: 00 Nutrition nutritional Nutrition Resolve 2019-07-28 [place] restriction d 1-07 12:30:00 [place] s 12:30: 00 Activity self-care Activity Active 2020-0 [place] deficit 1-07 [place] 12:30: 00 Activity ADL Activity Active 2019- [place] assistance 1-07 [place] required 12:30: 00 Safety fall risk Safety Active 2019- Shelby factor 1-07 [place] present 12:30: 00 Medication potential Meds Resolve 2019-07-28 [place] clinically d 1-07 12:30:00 [place] significant 12:30: medication 00 issue Endo/Jose diabetic Endo/Jose Active 2019- [facility] - [place] 14:00: [id number] 00 Social financial BRISEYDA: Resolve 2019-08-05 [facility] resource Social d -15 14:00:00 [place] deficit Services 14:00: [id number] 00 Allergies, Adverse Reactions, Alerts Allergy Allergy Status Severity Reaction(s) Onset Inactive Treating Comments Name Type Date Date Clinician phenergan Unknown Active Unknown Reaction Ernestine Unknown 3-23 ([place] [id number] effexor Unknown Active Unknown Reaction Ernestine Unknown 3-23 ([place]) [place] [id number] compazine Unknown Active Unknown Reaction Ernestine Unknown 3-23 ([place]) [place] [id number] adhesive Unknown Active Unknown Reaction Ernestine tape Unknown 3-23 ([place]) [place] [id number] milk Unknown Active Unknown Reaction Ernestine Unknown 3-23 ([place] [id number] prochlorper Base Active Unknown extrapyramidal 2017-07 [place] azine Ingredient symptoms - Dilip venlafaxine Base Active Severe Hives, 2017-07 [place] Ingredient difficulty 08-09 Dilip breathing, itching promethazin Base Active Unknown extrapyramidal 2017-07 [place] e Ingredient symptoms 08-09 Dilip Gadolinium- Allergen [...] Unknown 2 mg tablet 2 mg tablet ,Augustoompablo dexAMETHaso dexAMETHaso 2017-07- No Liz Unknown Unknown ne 6 mg ne 6 mg 08-16 Jill CARRENO tablet tablet fentaNYL 75 fentaNYL 75 2017-07- No Liz Unknown Unknown mcg/hr mcg/hr 08-16 Jill CARRENO transdermal transdermal patch patch oxyCODONE 5 oxyCODONE 5 2017-07- No Liz Unknown Unknown mg tablet mg tablet 08-16 Jill CARRENO naproxen naproxen 2017-07- No Liz Unknown Unknown sodium 220 sodium [...] Unknown 30 mg 30 mg 08-16 ,Jill tablet tablet Colace 100 Colace 100 2017-07- No Liz Unknown Unknown mg capsule mg capsule 08-16 Jill CARRENO DULoxetine DULoxetine 2017-07- No Liz Unknown Unknown 30 mg 30 mg 08-16 ,Jill capsule,del capsule,del ayed ayed release release anastrozole anastrozole 2017-07- No Liz Unknown Unknown 1 mg tablet 1 mg tablet 08-16 ,Jill Soma 250 mg Soma 250 mg 2017-07- [...] Liz Unknown Unknown mg tablet mg tablet 08-01- Jill CARRENO Soma 250 mg Soma 250 [...] 750 mg ol 750 mg 4 04-10 Jill CARRENO tablet tablet pantoprazol pantoprazol [...] Unknown tablet tablet 01-01 ,Jill Symbicort Symbicort 2019- No Liz Unknown Unknown 160 mcg-4.5 160 [...] mg 01-13 MD,Jill tablet tablet oxyCODONE oxyCODONE 2019- No Liz Unknown Unknown 10 mg 10 [...] mg 03-31 MD,Jill capsule capsule DULoxetine DULoxetine 2019- No Liz Unknown Unknown 30 mg 30 mg 04-08 MD,Jill capsule,del capsule,del ayed ayed release release flurazepam flurazepam No Liz Unknown Unknown 15 mg 15 mg 04-08 MD,Jill capsule capsule gabapentin gabapentin 2018- No Liz Unknown Unknown 300 mg 300 mg 04-08 ,Jill capsule capsule gabapentin gabapentin 2018- No Liz Unknown Unknown 300 mg 300 mg 04-08 ,Jill capsule capsule traZODone traZODone 2019- No Liz Unknown Unknown 100 mg 100 mg 04-15 ,Jill tablet tablet Augmentin Augmentin 2018-07- No Liz Unknown Unknown 875 mg-125 875 mg-125 005-01 ,Jill mg tablet mg tablet Kadcyla 100 Kadcyla 100 2018-07 No Liz Unknown Unknown mg mg 0- Jill CARRENO intravenous intravenous solution solution sulfacetami sulfacetami 2018-07 Yes Liz Unknown Unknown de sodium de sodium 08-05 Jill CARRENO 10 % eye 10 % eye drops drops gabapentin gabapentin 2018-07 Yes Liz Unknown Unknown 600 mg 600 mg 08-05 Jill CARRENO tablet tablet dronabinol dronabinol 2018-07 Yes Liz Unknown Unknown 5 mg 5 mg 08-10 ,Jill capsule capsule Levaquin Levaquin 2018-07- Yes Liz Unknown Unknown 750 mg 750 mg 09-01 Jill CARRENO tablet tablet dexAMETHaso dexAMETHaso 2018-07- Yes Liz Unknown Unknown ne 2 mg ne 2 mg 09-07 Jill CARRENO tablet tablet Xarelto 20 Xarelto 20 2018-07- Yes Liz Unknown Unknown mg tablet mg tablet 09-07 Jill CARRENO doxycycline doxycycline 2018-07 2020- Yes Liz Unknown Unknown monohydrate monohydrate 07-27 Jill CARRENO 100 mg 100 mg capsule capsule Tylenol 325 Tylenol 325 2018-07 Yes Liz Unknown Unknown mg tablet mg tablet Jill CARRENO celecoxib celecoxib Yes Liz Unknown Unknown 100 mg 100 mg 07-27 ,Jill capsule capsule Dilaudid 4 Dilaudid 4 Yes Liz Unknown Unknown mg tablet mg tablet 07-27 ,Jill dexAMETHaso dexAMETHaso 2020-0 Yes Liz Unknown Unknown ne 2 mg ne 2 mg - ,Jill tablet tablet Xarelto 20 Xarelto 20 2019- Yes Liz Unknown Unknown mg tablet mg tablet - Jill CARRENO Symbicort Symbicort 2019-0 Yes Liz Unknown Unknown 160 mcg-4.5 160 mcg-4.5 1- Jill CARRENO mcg/actuati mcg/actuati on HFA on HFA aerosol aerosol inhaler inhaler DULoxetine DULoxetine 2019-0 Yes Liz Unknown Unknown 60 mg 60 mg - ,Jill capsule,del capsule,del ayed ayed release release Klor-Con Klor-Con Yes Liz Unknown Unknown M20 mEq M20 mEq 07-27 ,Jill tablet,exte tablet,exte nded nded release release traZODone traZODone Yes Liz Unknown Unknown 100 mg 100 mg - ,Jill tablet tablet Vital Signs Vital Name Observation Time Observation Value Comments SYSTOLIC mm[Hg] 2019-07-23 18:09:40 130 mm[Hg] mm[Hg] Method: Stand SYSTOLIC mm[Hg] 2019-07-28 18:09:45 142 mm[Hg] mm[Hg] Method: Lie DIASTOLIC mm[Hg] 2019-07-23 18:09:40 38 mm[Hg] mm[Hg] Method: Stand DIASTOLIC mm[Hg] 2019-07-28 18:09:45 50 mm[Hg] mm[Hg] Method: Lie RESP RATE 2019-08-05 18:09:53 16 /min /min Procedures This patient has no known procedures. Results This patient has no known results.
--- OUTSIDE RECORDS SUMMARY | 2019-08-07 16:32 | XMS REPORT ---
:1975 Author Organization [facility] Care Team Providers Name Role Phone Unavailable [...] Resolve 2017-072018-08-27 Love pain d 08-16 15:00:00 [place] 10:20: [id number] 00 Respiratory smoker Respirator Resolve 2017-072018-07-23 Love y d 08-16 15:00:00 [place] 10:20: [id number] 00 Endo/Jose anti-coagul Endo/Jose Resolve 2017-072018-06-25 Love ation d 08-16 15:00:00 Carly therapy 10:20: [id number] 00 Nutrition nutritional Nutrition Resolve 2017-072018-07-04 Love restriction d 08-16 15:00:00 [place] s 10:20: [id number] 00 Neuro confusion Neuro/Emot Resolve 2017-072018-08-06 Love present ion d 08-16 15:00:00 [place] 10:20: [id number] 00 Neuro anxiety Neuro/Emot Resolve 2017-072018-08-06 Love present ion d 08-16 15:00:00 Carly 10:20: [id number] 00 Neuro depressive Neuro/Emot Resolve 2017-072018-08-06 Love feelings ion d 08-16 15:00:00 [place] present 10:20: [id number] 00 Safety risk for Safety Resolve 2017-072018-07-04 Love hospitaliza d 08-16 15:00:00 [place] tion 10:20: [id number] 00 Safety fall risk Safety Resolve 2017-072018-07-04 Ericka factor d 08-16 15:00:00 Vivian present 10:20: 00 Musculoskel requires Musculoske Resolve 2017-072018-07-04 Love etal human letal d 08-16 15:00:00 [place] assist to 10:20: [id number] leave home 00 Cardio hypertensio Cardiovasc Resolve [...] d 2-10 15:00:00 [place] deficit Services 14:00: [id number] 00 Social knowledge/s BRISEYDA: Resolve 2017-072018-09-22 [facility] kill Social d 2-10 13:00:00 [place] deficit - Services 14:00: [id number] pt 00 Social knowledge/s BRISEYDA: Resolve 2017-072018-09-22 [facility] kill Social d 2-10 13:00:00 [place] deficit - Services 14:00: [id number] cg 00 Musculoskel requires Musculoske Resolve 2017-072018-07-16 Shelby etal human letal d 2-19 15:00:00 Valle[place] assist to 15:30: leave home 00 Diagnoses knowledge/s Diagnoses Active 2017-07 Kezia kill 09-14 [place] deficit: cg 13:00: [id number] 00 Integument skin Integument Resolve 2017-072018-08-06 Shelby [...] Active Kezia hospitaliza 2-18 [place] tion 14:00: [id number] 00 Safety can be left Safety Unknown Kezia alone for 2-18 [place] only short 14:00: [id number] periods 00 Pain frequent Pain Mgmt Resolve 2018-09-24 Lam pain d 2-27 15:00:00 Briones 15:50: [id number] 00 Safety can be left Safety Resolve 2018-10-08 Kezia alone for d 3-04 15:00:00 [place] only short 13:00: [id number] periods 00 Cardio edema Cardiovasc Resolve 2018-10-08 [...] ion d 4-08 13:00:00 Briones present 15:45: [id number] 00 Respiratory lung sounds Respirator Resolve 2018-10-29 Shelby deficit y d 4-10 13:00:00 Valle[place] 13:00: 00 Infection s/s of Infection Resolve 2018-2019-02-04 Shelby infection d 4-17 12:30:00 Valle[place] 13:00: 00 Respiratory smoker Respirator Resolve 2018-11-05 Shelby y d 4-17 13:00:00 Valle[place] 13:00: 00 Neuro depressive Neuro/Emot Resolve 2018-12-10 Lam feelings ion d 4-20 12:30:00 Briones present 12:20: [id number] 00 Respiratory smoker Respirator Resolve 2018-11-20 Shelby [...] [facility] kill Social d 11-26 13:30[facility] 13:30: [id number] pt 00 Respiratory lung sounds Respirator Resolve [...] 12:30: 00 Elimination nausea/vomi Eliminatio Resolve 2018-12-31 Alviniamaryjo stuartg n d 12-18 12:30:00 Narendra 12:30: [id number] 00 Respiratory lung sounds Respirator Resolve 2018-12-24 [...] restriction d 01-16 12:30:00 [place] s 15:00: [id number] 00 Safety can be left Safety Resolve 2019-02-18 Kezia alone for d 01-16 12:10:00 [place] only short 15:00: [id number] periods 00 Respiratory smoker Respirator Resolve 2019-01-21 [...] 13:00: 00 Respiratory dyspnea Respirator Unknown 2018- Shebly present y 7-10 Vallely 13:00: 00 Respiratory [...] BRISEYDA: Active [facility] kill Social 7-12 [facility] deficit - Services 14:00: [id number] cg 00 Respiratory lung sounds Respirator Resolve [...] Kezia feelings ion 02-18 [place] present 14:30: [id number] 00 Respiratory lung sounds Respirator Resolve 2019-03-04 [...] d 8- 12:30:00 [place] only short 15:30: [id number] periods 00 Respiratory smoker Respirator Resolve 2019-03-12 [...] d 0-14 12:45:00 [place] only short 15:00: [id number] periods 00 Musculoskel requires Musculoske Resolve 2018-072019-05-06 [...] alone for 09-02 [place] only short 15:30: [id number] periods 00 Respiratory smoker Respirator Resolve 2018-072019-07-09 Shelby y d 2-19 12:15:00 [place] 12:15: 00 Musculoskel requires Musculoske Resolve 2018-072019-07-16 Shelby etal human letal d 2- 12:30:00 Vallely assist to 12:15: leave home 00 Respiratory oxygen Respirator Resolve 2018-072019-07-16 Shelby treatments y d 09-16 12:30:00 Vallely in home 12:30: 00 Respiratory smoker Respirator Resolve 2018-072019-07-16 Shelby y d 09-16 12:30:00 Vallely 12:30: 00 Respiratory oxygen Respirator Active Shelby treatments y 07-23 Vallely in home 12:30: 00 Respiratory pneumonia Respirator Resolve 2019-07-28 Shelby y d 07-23 12:30:00 Valle[place] 12:30: 00 Respiratory smoker Respirator Resolve 2019-07-23 Shelby y d 07-23 12:30:00 Valle[place] 12:30: 00 Respiratory dyspnea Respirator Active Shelby present y 07-28 Vallely 12:30: 00 Respiratory smoker Respirator Resolve 2019-07-28 Shelby y d 07-28 12:30:00 Vallely 12:30: 00 Endo/Jose diabetic Endo/Jose Resolve 2019-07-28 Shelby foot care d 07-28 12:30:00 Valle[place] 12:30: 00 Nutrition nutritional Nutrition Resolve 2019-07-28 Shelby restriction d 07-28 12:30:00 Vallely s 12:30: 00 Activity self-care Activity Active Shelby deficit 07-28 Vallely 12:30: 00 Activity ADL Activity Active Shelby assistance 07-28 Vallely required 12:30: 00 Safety fall risk Safety Active Shelby factor 07-28 Vallely present 12:30: 00 Medication potential Meds Resolve 2019-07-28 Shelby clinically d 07-28 12:30:00 Vallely significant 12:30: medication 00 issue Allergies, Adverse Reactions, Alerts Allergy Allergy Status Severity Reaction(s) Onset Inactive Treating Comments Name Type Date Date Clinician phenergan Unknown Active Unknown Reaction Ernestine Unknown 3 (Robert) [place] [id number] effexor Unknown Active Unknown Reaction Ernestine Unknown 3-23 (Robert) Kat [id number] compazine Unknown Active Unknown Reaction Ernestine Unknown 3-23 (Robert) [place] [id number] adhesive Unknown Active Unknown Reaction Ernestine tape Unknown 3-23 (Robert) Kat [id number] milk Unknown Active Unknown Reaction Ernestine Unknown 3-23 (Robert) Kat [id number] prochlorper Base Active Unknown extrapyramidal 2017-07 [place] azine Ingredient symptoms 08-09 Dilip venlafaxine Base Active Severe Hives, 2017-07 Holly Ingredient difficulty 08-09 Dilip breathing, itching promethazin Base Active Unknown extrapyramidal 2017-07 Holly e Ingredient symptoms 08-09 Dilip Gadolinium- Allergen [...] 10 mg Unknown mg tablet mg tablet Augusto CARRENOomir dexAMETHaso dexAMETHaso No Stevanovic 8 mg Unknown [...] mg tablet Marleni CARRENO dexAMETHaso dexAMETHaso 2017-07- No Liz Unknown Unknown [...] Liz Unknown Unknown 10 mg 10 mg 5 07-09 Jill CARRENO tablet tablet nyquil nyquil No Liz Unknown Unknown - Jill CARRENO vinorelbine vinorelbine 2019-0 2019- No Liz Unknown Unknown 11-25 ,Jill metroNIDAZO [...] 08-16 ,Jill tablet tablet gabapentin gabapentin 2018- No [...] mg tablet 09-07 Jill CARRENO doxycycline doxycycline 2018-07- Yes Liz Unknown Unknown monohydrate monohydrate 07-27 Jill CARRENO 100 mg 100 mg capsule capsule Tylenol 325 Tylenol 325 2018-07 Yes Liz Unknown Unknown mg tablet mg tablet Jill CARRENO celecoxib celecoxib Yes Liz Unknown Unknown 100 mg 100 mg 07-27 ,Jill capsule capsule Dilaudid 4 Dilaudid 4 Yes Liz Unknown Unknown mg tablet mg tablet 07-27 ,Jill dexAMETHaso dexAMETHaso Yes Liz Unknown Unknown ne 2 mg ne 2 mg 07-27 ,Jill tablet tablet Xarelto 20 Xarelto 20 Yes Liz Unknown Unknown mg tablet mg tablet 07-27 Jill CARRENO Vital Signs Vital Name Observation Time Observation Value Comments SYSTOLIC mm[Hg] 2019-07-23 18:09:40 130 mm[Hg] mm[Hg] Method: Stand SYSTOLIC mm[Hg] 2019-07-28 18:09:45 142 mm[Hg] mm[Hg] Method: Lie DIASTOLIC mm[Hg] 2019-07-23 18:09:40 38 mm[Hg] mm[Hg] Method: Stand DIASTOLIC mm[Hg] 2019-07-28 18:09:45 50 mm[Hg] mm[Hg] Method: Lie PULSE 2019-07-28 18:09:45 90 /min /min RESP RATE 2019-07-28 18:09:45 16 /min /min TEMP 2019-07-28 18:09:45 96.8 [degF] Procedures This patient has no known procedures. Results This patient has no known results.
--- OUTSIDE RECORDS SUMMARY | 2019-08-07 16:32 | XMS REPORT ---
:1975 Author Organization [facility] Care Team Providers Name Role Phone [...] Resolve 2017-072018-08-27 Love pain d 08-16 15:00:00 [place] 10:20: [id number] 00 Respiratory smoker Respirator Resolve 2017-072018-07-23 Love y d 08-16 15:00:00 [place]edar 10:20: [id number] 00 Endo/Jose anti-coagul Endo/Jose Resolve 2017-072018-06-25 Love ation d 08-16 15:00:00 Carly therapy 10:20: [id number] 00 Nutrition nutritional Nutrition Resolve 2017-072018-07-04 Love restriction d 08-16 15:00:00 Cedar s 10:20: [id number] 00 Neuro confusion Neuro/Emot Resolve 2017-072018-08-06 Love present ion d 08-16 15:00:00 [place] 10:20: [id number] 00 Neuro anxiety Neuro/Emot Resolve 2017-072018-08-06 Love present ion d 08-16 15:00:00 [place] 10:20: [id number] 00 Neuro depressive Neuro/Emot Resolve 2017-072018-08-06 Love feelings ion d 08-16 15:00:00 Cedar present 10:20: [id number] Safety risk for Safety Resolve 2017-072018-07-04 Love hospitaliza d 08-16 15:00:00 Cedar tion 10:20: [id number] 00 Safety fall risk Safety Resolve 2017-072018-07-04 Ericka factor d 08-16 15:00:00 Vivian present 10:20: 00 Musculoskel requires Musculoske Resolve 2017-072018-07-04 Love etal human letal d 08-16 15:00:00 Cedar assist to 10:20: [id number] leave home 00 Cardio hypertensio Cardiovasc Resolve [...] d 2-10 15:00:00 [place] deficit Services 14:00: [id number] 00 Social knowledge/s BRISEYDA: Resolve 2017-072018-09-22 [facility] kill Social d 2-10 13:00:00 [place] deficit - Services 14:00: [id number] pt 00 Social knowledge/s BRISEYDA: Resolve 2017-072018-09-22 [facility] kill Social d 2-10 13:00:00 [place] deficit - Services 14:00: [id number] cg 00 Musculoskel requires Musculoske Resolve 2017-072018-07-16 Shelby etal human letal d 2-19 15:00:00 Vallely assist to 15:30: leave home 00 Diagnoses knowledge/s Diagnoses Active 2017-07 Kezia kill 09-14 [place] deficit: cg 13:00: [id number] 00 Integument skin Integument Resolve 2017-072018-08-06 Shelby [...] Active Kezia hospitaliza 2-18 [place] tion 14:00: [id number] 00 Safety can be left Safety Unknown Kezia alone for 2-18 [place] only short 14:00: [id number] periods 00 Pain frequent Pain Mgmt Resolve 2018-09-24 Lam pain d 2-27 15:00:00 Briones 15:50: [id number] 00 Safety can be left Safety Resolve 2018-10-08 Kezia alone for d 3-04 15:00:00 [place] only short 13:00: [id number] periods 00 Cardio edema Cardiovasc Resolve 2018-10-08 [...] ion d 4-08 13:00:00 Briones present 15:45: [id number] 00 Respiratory lung sounds Respirator Resolve 2018-10-29 Shelby deficit y d 4-10 13:00:00 Vallely 13:00: 00 Infection s/s of Infection Resolve 2018-2019-02-04 Shelby infection d 4-17 12:30:00 Vallely 13:00: 00 Respiratory smoker Respirator Resolve 2018-11-05 Shelby y d 4-17 13:00:00 Vallely 13:00: 00 Neuro depressive Neuro/Emot Resolve 2018-12-10 Lam feelings ion d 4-20 12:30:00 Briones present 12:20: [id number] 00 Respiratory smoker Respirator Resolve 2018-11-20 Shelby [...] [facility] kill Social d 11-26 [facility]:30[facility] 13[facility]30: [id number] pt 00 Respiratory lung sounds Respirator Resolve [...] stuartg n d 12-18 12:30:00 Narendra 12:30: [id number] 00 Respiratory lung sounds Respirator Resolve 2018-12-24 Shelby deficit y d 12-24 12:30:00 [place]le[place] 12:30: 00 Elimination diarrhea Eliminatio Resolve 2018-12-31 Shelby rodriugez d 12-24 12:30:00 Vallely 12:30: 00 Cardio [...] restriction d 01-16 12:30:00 [place] s 15:00: [id number] 00 Safety can be left Safety Resolve 2019-02-18 Kezia alone for d 01-16 12:10:00 [place] only short 15:00: [id number] periods 00 Respiratory smoker Respirator Resolve 2019-01-21 [...] - Services 13:00: pt 00 Social knowledge/s RBISEYDA: Active [facility] kill Social 7-12 [facility] deficit - Services 14:00: [id number] cg 00 Respiratory lung sounds Respirator Resolve [...] Kezia feelings ion 02-18 [place] present 14:30: [id number] 00 Respiratory lung sounds Respirator Resolve 2019-03-04 [...] d 8- 12:30:00 [place] only short 15:30: [id number] periods 00 Respiratory smoker Respirator Resolve 2019-03-12 [...] d 0-14 12:45:00 [place] only short 15:00: [id number] periods 00 Musculoskel requires Musculoske Resolve 2018-072019-05-06 [...] alone for 09-02 [place] only short 15:30: [id number] periods 00 Respiratory smoker Respirator Resolve 2018-072019-07-09 [...] Unknown Reaction Ernestine Unknown 3 (Robert) [place] [id number] effexor Unknown Active Unknown Reaction Ernestine Unknown 3-23 (Robert) Kat [id number] compazine Unknown Active Unknown Reaction Ernestine Unknown 3-23 (Robert) [place] [id number] adhesive Unknown Active Unknown Reaction Ernestine tape Unknown 3-23 (Robert) Kat [id number] milk Unknown Active Unknown Reaction Ernestine Unknown 3-23 (Robert) Kat [id number] prochlorper Base Active Unknown extrapyramidal 2017-07 [place] azine Ingredient symptoms 08-09 Dilip venlafaxine Base Active Severe Hives, 2017-07 [place] Ingredient difficulty 08-09 Dilip breathing, itching promethazin Base Active Unknown extrapyramidal 2017-07 [place] e Ingredient symptoms 08-09 Dilip Gadolinium- Allergen [...]
--- OUTSIDE RECORDS SUMMARY | 2019-08-07 16:32 | XMS REPORT ---
[...] Resolve 2017-072018-08-27 Love pain d 08-16 15:00:00 Bandon 10:20: [id number] 00 Respiratory smoker Respirator Resolve 2017-072018-07-23 Love y d 08-16 15:00:00 [place]andon 10:20: [id number] 00 Endo/Jose anti-coagul Endo/Jose Resolve 2017-072018-06-25 Love ation d 08-16 15:00:00 Carly therapy 10:20: [id number] 00 Nutrition nutritional Nutrition Resolve 2017-072018-07-04 Love restriction d 08-16 15:00:00 Bandon s 10:20: [id number] 00 Neuro confusion Neuro/Emot Resolve 2017-072018-08-06 Love present ion d 08-16 15:00:00 [place]andon 10:20: [id number] 00 Neuro anxiety Neuro/Emot Resolve 2017-072018-08-06 Love present ion d 08-16 15:00:00 [place]andon 10:20: [id number] 00 Neuro depressive Neuro/Emot Resolve 2017-072018-08-06 Love feelings ion d 08-16 15:00:00 [place]andon present 10:20: [id number] 00 Safety risk for Safety Resolve 2017-072018-07-04 Love hospitaliza d 08-16 15:00:00 [place]andon tion 10:20: [id number] 00 Safety fall risk Safety Resolve 2017-072018-07-04 Ericka factor d 08-16 15:00:00 Vivian present 10:20: 00 Musculoskel requires Musculoske Resolve 2017-072018-07-04 Love etal human letal d 08-16 15:00:00 [place] assist to 10:20: [id number] leave home 00 Cardio hypertensio Cardiovasc Resolve [...] d 2-10 15:00:00 [place] deficit Services 14:00: [id number] 00 Social knowledge/s BRISEYDA: Resolve 2017-072018-09-22 [facility] kill Social d 2-10 13:00:00 [place] deficit - Services 14:00: [id number] pt 00 Social knowledge/s BRISEYDA: Resolve 2017-072018-09-22 [facility] kill Social d 2-10 13:00:00 [place] deficit - Services 14:00: [id number] cg 00 Musculoskel requires Musculoske Resolve 2017-072018-07-16 Shelby etal human letal d 2-19 15:00:00 Valle[place] assist to 15:30: leave home 00 Diagnoses knowledge/s Diagnoses Active 2017-07 Kezia kill 09-14 [place] deficit: cg 13:00: [id number] 00 Integument skin Integument Resolve 2017-072018-08-06 Shelby [...] Active Kezia hospitaliza 2-18 [place] tion 14:00: [id number] 00 Safety can be left Safety Unknown Kezia alone for 2-18 [place] only short 14:00: [id number] periods 00 Pain frequent Pain Mgmt Resolve 2018-09-24 Lam pain d 2-27 15:00:00 Brionse 15:50: [id number] 00 Safety can be left Safety Resolve 2018-10-08 Kezia alone for d 3-04 15:00:00 [place] only short 13:00: [id number] periods 00 Cardio edema Cardiovasc Resolve 2018-10-08 [...] ion d 4-08 13:00:00 Briones present 15:45: [id number] 00 Respiratory lung sounds Respirator Resolve 2018-10-29 Shelby deficit y d 4-10 13:00:00 Vallely 13:00: 00 Infection s/s of Infection Resolve 2018-2019-02-04 Shelby infection d 4-17 12:30:00 Vallely 13:00: 00 Respiratory smoker Respirator Resolve 2018-11-05 Shelby y d 4-17 13:00:00 Vallely 13:00: 00 Neuro depressive Neuro/Emot Resolve 2018-12-10 Lam feelings ion d 4-20 12:30:00 Briones present 12:20: [id number] 00 Respiratory smoker Respirator Resolve 2018-11-20 Shelby [...] [facility] kill Social d 11-26 [facility]:30[facility] 13[facility]30: [id number] pt 00 Respiratory lung sounds Respirator Resolve [...] stuartg n d 12-18 12:30:00 Narendra 12:30: [id number] 00 Respiratory lung sounds Respirator Resolve 2018-12-24 [...] restriction d 01-16 12:30:00 [place] s 15:00: [id number] 00 Safety can be left Safety Resolve 2019-02-18 Kezia alone for d 01-16 12:10:00 [place] only short 15:00: [id number] periods 00 Respiratory smoker Respirator Resolve 2019-01-21 [...] BRISEYDA: Active [facility] kill Social 7-12 [facility] deficit - Services 14:00: [id number] cg 00 Respiratory lung sounds Respirator Resolve [...] Kezia feelings ion 02-18 [place] present 14:30: [id number] 00 Respiratory lung sounds Respirator Resolve 2019-03-04 [...] d 8- 12:30:00 [place] only short 15:30: [id number] periods 00 Respiratory smoker Respirator Resolve 2019-03-12 [...] d 0-14 12:45:00 [place] only short 15:00: [id number] periods 00 Musculoskel requires Musculoske Resolve 2018-072019-05-06 [...] alone for 09-02 [place] only short 15:30: [id number] periods 00 Respiratory smoker Respirator Resolve 2018-072019-07-09 [...] Vallely 12:30: 00 Respiratory smoker Respirator Resolve 2019-08-05 Shelby y d 07-28 12:30:00 Vallely 12:30: 00 Endo/Jose diabetic Endo/Jose Resolve 2019-08-05 Shelby foot care d 07-28 12:30:00 Vallely 12:30: 00 Nutrition nutritional Nutrition Resolve 2019-07-28 Shelby restriction d 07-28 12:30:00 Vallely s 12:30: 00 Activity self-care Activity Resolve 2019-08-05 Shelby deficit d 07-28 12:30:00 Vallely 12:30: 00 Activity ADL Activity Active Shelby assistance 07-28 Vallely required 12:30: 00 Safety fall risk Safety Active Shelby factor 07-28 Vallely present 12:30: 00 Medication potential Meds Resolve 2019-07-28 Shelby clinically d 07-28 12:30:00 Vallely significant 12:30: medication 00 issue Neuro depressive Neuro/Emot Active Shelby feelings ion 08-05 Vallely present 12:30: 00 Medication potential Meds Resolve 2019-08-05 Shelby clinically d 08-05 12:30:00 Vallely significant 12:30: medication 00 issue Endo/Jose diabetic Endo/Jose Unknown Kezia foot care 08-05 [facility] 14:00: [id number] 00 Social financial BRISEYDA: Active Ke[facility] resource Social 08-05 [facility] deficit Services 14:00: [id number] 00 Allergies, Adverse Reactions, Alerts Allergy Allergy Status Severity Reaction(s) Onset Inactive Treating Comments Name Type Date Date Clinician phenergan Unknown Active Unknown Reaction Ernestine Unknown 3-23 (Robert) [place] [id number] effexor Unknown Active Unknown Reaction Ernestine Unknown 3-23 (Robert) [place] [id number] compazine Unknown Active Unknown Reaction Ernestine Unknown 3-23 (Robert) [place] [id number] adhesive Unknown Active Unknown Reaction Ernestine tape Unknown 3-23 (Robert) [place] [id number] milk Unknown Active Unknown Reaction Ernestine Unknown 3-23 (Robert) [place] [id number] prochlorper Base Active Unknown extrapyramidal 2017-07 [place] azine Ingredient symptoms - Dilip venlafaxine Base Active Severe Hives, 2017-07 [place] Ingredient difficulty 08-09 Dilip breathing, itching promethazin Base Active Unknown extrapyramidal 2017-07 [place] e Ingredient symptoms 08-09 Dilip Gadolinium- Allergen [...] No Liz Unknown Unknown tablet tablet 01-01 Jill CARRENO Symbicort Symbicort 2019- No Liz Unknown Unknown [...] Liz Unknown Unknown 10 mg 10 mg 01-27- ,Jill tablet tablet Colace 100 Colace 100 [...] mg tablet mg tablet 08-16 Jill CARRENO traZODone traZODone 2017-07- No Liz Unknown Unknown 100 mg 100 mg 08-16 ,Jill tablet tablet gabapentin gabapentin 2018- No Liz Unknown Unknown 300 mg 300 mg 03-31 ,Jill capsule capsule DULoxetine DULoxetine 2019- No Liz Unknown Unknown 30 mg 30 mg 04-08 ,Jill capsule,del capsule,del ayed ayed release release flurazepam [...] Liz Unknown Unknown 875 mg-125 875 mg-125 0- ,Jill mg tablet mg tablet Kadcyla 100 [...] Liz Unknown Unknown 5 mg 5 mg - ,Jill capsule capsule Levaquin Levaquin 2018-07- Yes Liz Unknown Unknown 750 mg 750 mg 09-01 ,Jill tablet tablet dexAMETHaso dexAMETHaso 2018-07- Yes Liz Unknown Unknown ne 2 mg ne 2 mg 09-07 ,Jill tablet tablet Xarelto 20 Xarelto 20 2018-07- Yes Liz Unknown Unknown mg tablet mg tablet 09-07 ,Jill doxycycline doxycycline 2018-07- Yes Liz Unknown Unknown monohydrate monohydrate 07-27 ,Jill 100 mg 100 mg capsule capsule Tylenol 325 Tylenol 325 2018-07 Yes Liz Unknown Unknown mg tablet mg tablet MD,Jill celecoxib celecoxib 2019- Yes Liz Unknown Unknown 100 mg 100 mg 07-27 ,Jill capsule capsule Dilaudid 4 Dilaudid 4 2019- Yes Liz Unknown Unknown mg tablet mg tablet 07-27 MD,Jill dexAMETHaso dexAMETHaso Yes Liz Unknown Unknown ne 2 mg ne 2 mg 07-27 ,Jill tablet tablet Xarelto 20 Xarelto 20 2019- Yes Liz Unknown Unknown mg tablet mg tablet 07-27 ,Jill Symbicort Symbicort Yes Liz Unknown Unknown 160 mcg-4.5 160 mcg-4.5 07-27 ,Jill mcg/actuati mcg/actuati on HFA on HFA aerosol aerosol inhaler inhaler DULoxetine DULoxetine Yes Liz Unknown Unknown 60 mg 60 mg 07-27 ,Jill capsule,del capsule,del ayed ayed release release Klor-Con Klor-Con 2020- Yes Liz Unknown Unknown M20 mEq M20 mEq 07-27 MD,Jill tablet,exte tablet,exte nded nded release release traZODone traZODone Yes Liz Unknown Unknown 100 mg 100 mg 07-27 MD,Jill tablet tablet Klor-Con Klor-Con Yes Liz Unknown Unknown M20 mEq M20 mEq 15 MD,Jill tablet,exte tablet,exte nded nded release release Vital Signs Vital Name Observation Time Observation [...]
--- OUTSIDE RECORDS SUMMARY | 2019-08-07 16:33 | XMS REPORT ---
:1975 Author Organization [facility] Care Team Providers Name Role Phone Unavailable [...] Resolve 2017-072018-08-27 Love pain d 08-16 15:00:00 Reading 10:20: [id number] 00 Respiratory smoker Respirator Resolve 2017-072018-07-23 Love y d 08-16 15:00:00 Reading 10:20: [id number] 00 Endo/Jose anti-coagul Endo/Jose Resolve 2017-072018-06-25 Love ation d 08-16 15:00:00 Carly therapy 10:20: [id number] 00 Nutrition nutritional Nutrition Resolve 2017-072018-07-04 Love restriction d 08-16 15:00:00 Reading s 10:20: [id number] 00 Neuro confusion Neuro/Emot Resolve 2017-072018-08-06 Love present ion d 08-16 15:00:00 Reading 10:20: [id number] 00 Neuro anxiety Neuro/Emot Resolve 2017-072018-08-06 Love present ion d 08-16 15:00:00 Carly 10:20: [id number] 00 Neuro depressive Neuro/Emot Resolve 2017-072018-08-06 Love feelings ion d 08-16 15:00:00 Reading present 10:20: [id number] 00 Safety risk for Safety Resolve 2017-072018-07-04 Love hospitaliza d 08-16 15:00:00 Reading tion 10:20: [id number] 00 Safety fall risk Safety Resolve 2017-072018-07-04 Ericka factor d 08-16 15:00:00 Vivian present 10:20: 00 Musculoskel requires Musculoske Resolve 2017-072018-07-04 Love etal human letal d 08-16 15:00:00 Reading assist to 10:20: [id number] leave home 00 Cardio hypertensio Cardiovasc Resolve [...] resource Social 2-10 [place] deficit Services 14:00: [id number] 00 Social knowledge/s BRISEYDA: Resolve 2017-072018-09-22 Kezia Services kill Social d 2-10 13:00:00 [place] deficit - Services 14:00: [id number] pt 00 Social knowledge/s BRISEYDA: Resolve 2017-072018-09-22 Kezia Services kill Social d 2-10 13:00:00 [place] deficit - Services 14:00: [id number] cg 00 Musculoskel requires Musculoske Resolve 2017-072018-07-16 Shelby etal human letal d 2-19 15:00:00 [place] assist to 15:30: leave home 00 Diagnoses knowledge/s Diagnoses Active 2017-07 Kezia kill 2-24 [place] deficit: cg 13:00: [id number] 00 Integument skin Integument Resolve 2017-072018-08-06 Shelby [...] Active Kezia hospitaliza 2-18 [place] tion 14:00: [id number] 00 Safety can be left Safety Unknown Kezia alone for 2-18 [place] only short 14:00: [id number] periods 00 Pain frequent Pain Mgmt Resolve 2018-09-24 Lam pain d 2-27 15:00:00 Briones 15:50: [id number] 00 Safety can be left Safety Resolve 2018-10-08 Kezia alone for d 3-04 15:00:00 [place] only short 13:00: [id number] periods 00 Cardio edema Cardiovasc Resolve 2018-10-08 Shelby ular d 3-13 15:00:00 [place] 15:00: 00 Social knowledge/s BRISEYDA: Resolve 2018-10-10 [place] Services kill Social d 3-13 16:00:00 Vallely [...] ion d 4-08 13:00:00 Briones present 15:45: [id number] 00 Respiratory lung sounds Respirator Resolve 2018-10-29 Shelby deficit y d 4-10 13:00:00 [place] 13:00: 00 Infection s/s of Infection Resolve 2019-02-04 Shelby infection d 4-17 12:30:00 [place] 13:00: 00 Respiratory smoker Respirator Resolve 2018-2018-11-05 Shelby y d 4-17 13:00:00 [place] 13:00: 00 Neuro depressive Neuro/Emot Resolve 2018-12-10 Lam feelings ion d 4-20 12:30:00 Briones present 12:20: [id number] 00 Respiratory smoker Respirator Resolve 2018-2018-11-20 Shelby [...] 11-26 13:30:00 [place] deficit - Services 13:30: [id number] pt 00 Respiratory lung sounds Respirator Resolve [...] soni n d 12-18 12:30:00 Narendra 12:30: [id number] 00 Respiratory lung sounds Respirator Resolve 2018-12-24 [...] restriction d 01-16 12:30:00 [place] s 15:00: [id number] 00 Safety can be left Safety Resolve 2019-02-18 Kezia alone for d 01-16 12:10:00 [place] only short 15:00: [id number] periods 00 Respiratory smoker Respirator Resolve 2019-01-21 [...] Social 7-12 [place] deficit - Services 14:00: [id number] 00 Respiratory lung sounds Respirator Resolve 2019-02-04 [...] Kezia feelings ion 02-18 [place] present 14:30: [id number] 00 Respiratory lung sounds Respirator Resolve 2019-03-04 [...] d 8-22 12:30:00 [place] only short 15:30: [id number] periods 00 Respiratory smoker Respirator Resolve 2019-03-12 Shelby y d 03-12 16:00:00 [place] 16:00: 00 Respiratory oxygen Respirator Unknown Shebly treatments y 03-12 Vallely in home 16:00: [...] d 0-14 12:45:00 [place] only short 15:00: [id number] periods 00 Musculoskel requires Musculoske Resolve 2018-072019-05-06 [...] fraire for 09-02 [place] only short 15:30: [id number] periods 00 Respiratory smoker Respirator Resolve 2018-072019-07-09 Shelby y d 2-19 12:15:00 [place] 12:15: 00 Musculoskel requires Musculoske Resolve 2018-072019-07-16 Shelby etal human letal d 2-19 12:30:00 [place] assist to 12:15: leave home 00 Respiratory oxygen Respirator Resolve 2018-072019-07-16 Shelby ruby y d 09-16 12:30:00 [place] in home 12:30: 00 Respiratory smoker Respirator Resolve 2018-072019-07-16 [place] y d 09-16 12:30:00 [place]le[place] 12:30: 00 Respiratory oxygen Respirator Active Shelby ruby y 07-23 [place] in home 12:30: 00 Respiratory pneumonia Respirator Active Shelby y 07-23 Val[place] 12:30: 00 Respiratory smoker Respirator Resolve 2019-07-23 Shelby y d 07-23 12:30:00 [place] 12:30: 00 Allergies, Adverse Reactions, Alerts Allergy Allergy Status Severity Reaction(s) Onset Inactive Treating Comments Name Type Date Date Clinician phenergan Unknown Active Unknown Reaction Ernestine Unknown 3-23 (Robert) [place] [id number] effexor Unknown Active Unknown Reaction Ernestine Unknown 3-23 (Robert) [place] [id number] compazine Unknown Active Unknown Reaction Ernestine Unknown 3-23 (Robert) [place] [id number] adhesive Unknown Active Unknown Reaction Ernestine tape Unknown 3-23 (Robert) [place] [id number] milk Unknown Active Unknown Reaction Ernestine Unknown 3-23 (Robert) [place] [id number] prochlorper Base Active Unknown extrapyramidal 2017-07 [place] azine Ingredient symptoms - Dilip venlafaxine Base Active Severe Hives, 2017-07 [place] Ingredient difficulty 08-09 Dilip breathing, itching promethazin Base Active Unknown extrapyramidal 2017-07 [place] e Ingredient symptoms - Dilip Gadolinium- Allergen [...] Unknown Dose 81 mg Dose 81 mg MDRadomir tablet,suzan tablet,suzan yed release yed release gabapentin [...] Unknown Unknown 25 mcg 25 mcg 08-16 05 Jill CARRENO (1,000 (1,000 unit) unit) tablet [...] nyquil nyquil No Liz Unknown Unknown 11-20 Jill CARRENO vinorelbine vinorelbine 2018- No Liz [...] 2 mg tablet 2 mg tablet - Jill CARRENO fentaNYL fentaNYL No Liz Unknown Unknown 100 mcg/hr 100 mcg/hr - Jill CARRENO transdermal transdermal patch patch Soma [...] oxygen oxygen No Liz Unknown Unknown 01-06 Jill CARRENO glyBURIDE glyBURIDE 2018- No Liz Unknown Unknown [...] Unknown fahad 10 mg fahad 10 mg 8- MD,Jill tablet tablet Xarelto 20 Xarelto 2017-07- No Liz Unknown Unknown mg tablet mg tablet 08-16 12- MD,Jill traZODone traZODone 2017-07- No Liz Unknown [...] mg 04-08- MD,Jill capsule capsule traZODone traZODone No Liz Unknown Unknown 100 mg 100 mg 04-15 MD,Jill tablet tablet Augmentin Augmentin 2018-07- No Liz Unknown Unknown 875 mg-125 875 mg-125 0-04 10-11 MD,Jill mg tablet mg tablet Kadcyla 100 Kadcyla 100 2018-07 No Liz Unknown Unknown mg mg 0-03 ,Jill intravenous intravenous solution solution sulfacetami sulfacetami 2018-07 Yes Liz Unknown Unknown de sodium de sodium 1-15 MD,Jill 10 % eye 10 % eye drops drops gabapentin gabapentin 2018-07 Yes Liz Unknown Unknown 600 mg 600 mg 1-15 MD,Jill tablet tablet dronabinol dronabinol 2018-07 Yes Liz Unknown Unknown 5 mg 5 mg -20 MD,Jill capsule capsule Levaquin Levaquin 2018-07- Yes Liz Unknown Unknown 750 mg 750 mg 09-01 12- MD,Jill tablet tablet dexAMETHaso dexAMETHaso 2018-07 Yes Liz Unknown Unknown ne 2 mg ne 2 mg -17 MD,Jill tablet tablet Xarelto 20 Xarelto 1 Yes Liz Unknown Unknown mg tablet mg tablet 2 Jill CARRENO doxycycline doxycycline 2018-07 Yes Liz Unknown Unknown monohydrate monohydrate Jill CARRENO 100 mg 100 mg capsule capsule Tylenol 325 Tylenol 325 2018-07 Yes Liz Unknown Unknown mg tablet mg tablet Jill CARRENO Vital Signs Vital Name Observation Time Observation Value Comments SYSTOLIC mm[Hg] 2019-07-23 18:09:40 130 mm[Hg] mm[Hg] Method: Stand SYSTOLIC mm[Hg] 2019-07-09 18:09:26 115 mm[Hg] mm[Hg] Method: Lie DIASTOLIC mm[Hg] 2019-07-23 18:09:40 38 mm[Hg] mm[Hg] Method: Stand DIASTOLIC mm[Hg] 2019-07-09 18:09:26 70 mm[Hg] mm[Hg] Method: Lie PULSE 2019-07-23 18:09:40 130 /min /min RESP RATE 2019-07-23 18:09:40 16 /min /min TEMP 2019-07-23 18:09:40 97.5 [degF] Procedures This patient has no known procedures. Results This patient has no known results.
--- OUTSIDE RECORDS SUMMARY | 2019-08-07 16:33 | XMS REPORT ---
:1975 Author Organization [facility] Care Team Providers Name Role Phone Unavailable [...] Resolve 2017-072018-08-27 Love pain d 08-16 15:00:00 [place] 10:20: [id number] 00 Respiratory smoker Respirator Resolve 2017-072018-07-23 Love y d 08-16 15:00:00 [place] 10:20: [id number] 00 Endo/Jose anti-coagul Endo/Jose Resolve 2017-072018-06-25 Love ation d 08-16 15:00:00 Carly therapy 10:20: [id number] 00 Nutrition nutritional Nutrition Resolve 2017-072018-07-04 Love restriction d 08-16 15:00:00 [place] s 10:20: [id number] 00 Neuro confusion Neuro/Emot Resolve 2017-072018-08-06 Love present ion d 08-16 15:00:00 [place] 10:20: [id number] 00 Neuro anxiety Neuro/Emot Resolve 2017-072018-08-06 Love present ion d 08-16 15:00:00 Carly 10:20: [id number] 00 Neuro depressive Neuro/Emot Resolve 2017-072018-08-06 Love feelings ion d 08-16 15:00:00 [place] present 10:20: [id number] 00 Safety risk for Safety Resolve 2017-072018-07-04 Love hospitaliza d 08-16 15:00:00 [place] tion 10:20: [id number] 00 Safety fall risk Safety Resolve 2017-072018-07-04 Ericka factor d 08-16 15:00:00 Vivian present 10:20: 00 Musculoskel requires Musculoske Resolve 2017-072018-07-04 Love etal human letal d 08-16 15:00:00 [place] assist to 10:20: [id number] leave home 00 Cardio hypertensio Cardiovasc Resolve [...] resource Social 2-10 [place] deficit Services 14:00: [id number] 00 Social knowledge/s BRISEYDA: Resolve 2017-072018-09-22 [facility] Services kill Social d 2-10 13:00:00 [place] deficit - Services 14:00: [id number] pt 00 Social knowledge/s BRISEYDA: Resolve 2017-072018-09-22 Ke[facility] Services kill Social d 2-10 13:00:00 [place] deficit - Services 14:00: [id number] cg 00 Musculoskel requires Musculoske Resolve 2017-072018-07-16 Shelby etal human letal d 2-19 15:00:00 [place] assist to 15:30: leave home 00 Diagnoses knowledge/s Diagnoses Active 2017-07 Kezia kill 2-24 [place] deficit: cg 13:00: [id number] 00 Integument skin Integument Resolve 2017-072018-08-06 Shelby [...] Active Kezia hospitaliza 2-18 [place] tion 14:00: [id number] 00 Safety can be left Safety Unknown Kezia alone for 2-18 [place] only short 14:00: [id number] periods 00 Pain frequent Pain Mgmt Resolve 2018-09-24 Lam pain d 2-27 15:00:00 Br[place] 15:50: [id number] 00 Safety can be left Safety Resolve 2018-10-08 Kezia alone for d 3-04 15:00:00 [place] only short 13:00: [id number] periods 00 Cardio edema Cardiovasc Resolve 2018-10-08 [...] ion d 4-08 13:00:00 Briones present 15:45: [id number] 00 Respiratory lung sounds Respirator Resolve 2018-10-29 Shelby deficit y d 4-10 13:00:00 [place] 13:00: 00 Infection s/s of Infection Resolve 2019-02-04 Shelby infection d 4-17 12:30:00 [place] 13:00: 00 Respiratory smoker Respirator Resolve 2018-2018-11-05 Shelby y d 4-17 13:00:00 [place] 13:00: 00 Neuro depressive Neuro/Emot Resolve 2018-12-10 Lam feelings ion d 4-20 12:30:00 Briones present 12:20: [id number] 00 Respiratory smoker Respirator Resolve 2018-2018-11-20 Shelby [...] 11-26 13:30:00 [place] deficit - Services 13:30: [id number] pt 00 Respiratory lung sounds Respirator Resolve [...] soni n d 12-18 12:30:00 Narendra 12:30: [id number] 00 Respiratory lung sounds Respirator Resolve 2018-12-24 [...] restriction d 01-16 12:30:00 [place] s 15:00: [id number] 00 Safety can be left Safety Resolve 2019-02-18 Kezia alone for d 01-16 12:10:00 [place] only short 15:00: [id number] periods 00 Respiratory smoker Respirator Resolve 2019-01-21 [...] Social 7-12 [place] deficit - Services 14:00: [id number] 00 Respiratory lung sounds Respirator Resolve 2019-02-04 [...] Kezia feelings ion 02-18 [place] present 14:30: [id number] 00 Respiratory lung sounds Respirator Resolve 2019-03-04 [...] d 8-22 12:30:00 [place] only short 15:30: [id number] periods 00 Respiratory smoker Respirator Resolve 2019-03-12 [...] d 0-14 12:45:00 [place] only short 15:00: [id number] periods 00 Musculoskel requires Musculoske Resolve 2018-072019-05-06 [...] home 00 Respiratory oxygen Respirator Resolve 2018-072019-05-20 Shelyb treatments y d 0-30 11:15:00 Vallely in [...] fraire for 09-02 [place] only short 15:30: [id number] periods 00 Respiratory smoker Respirator Resolve 2018-072019-07-09 Shelby y d 2-19 12:15:00 [place]le[place] 12:15: 00 Musculoskel requires Musculoske Resolve 2018-072019-07-16 Shelby etal human letal d 2-19 12:30:00 [place]le[place] assist to 12:15: leave home 00 Respiratory oxygen Respirator Resolve 2018-072019-07-16 Shelby ruby y d 09-16 12:30:00 Vallely in home 12:30: 00 Respiratory smoker Respirator Resolve 2018-072019-07-16 Shelby trejo d 09-16 12:30:00 Vallely 12:30: 00 Respiratory oxygen Respirator Active Shelby ruby y 07-23 Vallely in home 12:30: 00 Respiratory pneumonia Respirator Resolve 2019-07-23 Shelby y d 07-23 12:30:00 Vallely 12:30: 00 Respiratory smoker Respirator Resolve 2019-07-23 Shelby y d 07-23 12:30:00 Vallely 12:30: 00 Allergies, Adverse Reactions, Alerts Allergy Allergy Status Severity Reaction(s) Onset Inactive Treating Comments Name Type Date Date Clinician phenergan Unknown Active Unknown Reaction Ernestine Unknown 3-23 (Robert) [place] [id number] effexor Unknown Active Unknown Reaction Ernestine Unknown 3-23 (Robert) [place] [id number] compazine Unknown Active Unknown Reaction Ernestine Unknown 3-23 (Robert) [place] [id number] adhesive Unknown Active Unknown Reaction Ernestine tape Unknown 3-23 (Robert) [place] [id number] milk Unknown Active Unknown Reaction Ernestine Unknown 3-23 (Robert) [place] [id number] prochlorper Base Active Unknown extrapyramidal 2017-07 [place] azine Ingredient symptoms 1-19 Dilip venlafaxine Base Active Severe Hives, 2017-07 [place] Ingredient difficulty -19 Dilip breathing, itching promethazin Base Active Unknown extrapyramidal 2017-07 [place] e Ingredient symptoms -19 Dilip Gadolinium- Allergen [...] 2018- No Liz Unknown Unknown mcg/hr mcg/hr 10-01-12 Jill CARRENO transdermal transdermal patch patch methocarbam methocarbam 2018- No Liz Unknown Unknown ol 750 mg ol 750 mg 10-23 04-10 Boyd CARRENOie tablet tablet pantoprazol pantoprazol No Liz Unknown [...] Liz Unknown Unknown 11-25- ,Jill metroNIDAZO metroNIDAZO 2019- No Liz Unknown Unknown LE 500 mg [...] packet packet Aloxi 0.25 Aloxi 0.25 No Lzi Unknown Unknown mg/5 mL mg/5 mL 02-05 ,Jill intravenous intravenous solution solution gabapentin gabapentin 2018- No Liz Unknown Unknown 300 mg 300 mg 806 09- MD,Jill capsule capsule metoclopram metoclopram No Liz [...] mg 04-08 MD,Jill capsule capsule traZODone traZODone No Liz Unknown Unknown 100 mg 100 mg 04-15 ,Jill tablet tablet Augmentin Augmentin 2018-07- No Liz Unknown Unknown 875 mg-125 875 mg-125 0-04 - MD,Jill mg tablet mg tablet Kadcyla 100 Kadcyla 100 2018-07 No Liz Unknown Unknown mg mg 0-03 ,Jill intravenous intravenous solution solution sulfacetami sulfacetami 2018-07 Yes Liz Unknown Unknown de sodium de sodium -15 MD,Jill 10 % eye 10 % eye drops drops gabapentin gabapentin 2018-07 Yes Liz Unknown Unknown 600 mg 600 mg 1-15 MD,Jill tablet tablet dronabinol dronabinol 2018-07 Yes Liz Unknown Unknown 5 mg 5 mg 20 MD,Jill capsule capsule Levaquin Levaquin 2018-07- Yes Liz Unknown Unknown 750 mg 750 mg 09-01- MD,Jill tablet tablet dexAMETHaso dexAMETHaso 2018-07 Yes Liz Unknown Unknown ne 2 mg ne 2 mg 09-07 Jill CARRENO tablet tablet Xarelto 20 Xarelto 20 2018-07 [...]
--- OUTSIDE RECORDS SUMMARY | 2019-08-07 16:33 | XMS REPORT ---
:1975 Author Organization [facility] Care Team Providers Name Role Phone Unavailable [...] Resolve 2017-072018-08-27 Love pain d 08-16 15:00:00 [place] 10:20: [id number] 00 Respiratory smoker Respirator Resolve 2017-072018-07-23 Love y d 08-16 15:00:00 [place] 10:20: [id number] 00 Endo/Jose anti-coagul Endo/Jose Resolve 2017-072018-06-25 Love ation d 08-16 15:00:00 Carly therapy 10:20: [id number] 00 Nutrition nutritional Nutrition Resolve 2017-072018-07-04 Love restriction d 08-16 15:00:00 [place] s 10:20: [id number] 00 Neuro confusion Neuro/Emot Resolve 2017-072018-08-06 Love present ion d 08-16 15:00:00 [place] 10:20: [id number] 00 Neuro anxiety Neuro/Emot Resolve 2017-072018-08-06 Love present ion d 08-16 15:00:00 Carly 10:20: [id number] 00 Neuro depressive Neuro/Emot Resolve 2017-072018-08-06 Love feelings ion d 08-16 15:00:00 [place] present 10:20: [id number] 00 Safety risk for Safety Resolve 2017-072018-07-04 Love hospitaliza d 08-16 15:00:00 [place] tion 10:20: [id number] 00 Safety fall risk Safety Resolve 2017-072018-07-04 Ericka factor d 08-16 15:00:00 Vivian present 10:20: 00 Musculoskel requires Musculoske Resolve 2017-072018-07-04 Love etal human letal d 08-16 15:00:00 [place] assist to 10:20: [id number] leave home 00 Cardio hypertensio Cardiovasc Resolve [...] d 2-10 15:00:00 [place] deficit Services 14:00: [id number] 00 Social knowledge/s BRISEYDA: Resolve 2017-072018-09-22 Kezia Services kill Social d 2-10 13:00:00 [place] deficit - Services 14:00: [id number] pt 00 Social knowledge/s BRISEYDA: Resolve 2017-072018-09-22 Kezia Services kill Social d 2-10 13:00:00 [place] deficit - Services 14:00: [id number] cg 00 Musculoskel requires Musculoske Resolve 2017-072018-07-16 Shelby etal human letal d 2-19 15:00:00 [place]le[place] assist to 15:30: leave home 00 Diagnoses knowledge/s Diagnoses Active 2017-07 Kezia kill 09-14 [place] deficit: cg 13:00: [id number] 00 Integument skin Integument Resolve 2017-072018-08-06 Shelby [...] Active Kezia hospitaliza 2-18 [place] tion 14:00: [id number] 00 Safety can be left Safety Unknown Kezia alone for 2-18 [place] only short 14:00: [id number] periods 00 Pain frequent Pain Mgmt Resolve 2018-09-24 Lam pain d 2-27 15:00:00 [place] 15:50: [id number] 00 Safety can be left Safety Resolve 2018-10-08 Kezia alone for d 3-04 15:00:00 [place] only short 13:00: [id number] periods 00 Cardio edema Cardiovasc Resolve 2018-10-08 [...] 15:00: 00 Neuro depressive Neuro/Emot Resolve 2018-10-22 Shelyb feelings ion d 3-20 15:00:00 Vallely present [...] ion d 4-08 13:00:00 Briones present 15:45: [id number] 00 Respiratory lung sounds Respirator Resolve 2018-10-29 Shelby deficit y d 4-10 13:00:00 [place] 13:00: 00 Infection s/s of Infection Resolve 2018-2019-02-04 Shelby infection d 4-17 12:30:00 [place] 13:00: 00 Respiratory smoker Respirator Resolve 2018-11-05 Shelby y d 4-17 13:00:00 [place] 13:00: 00 Neuro depressive Neuro/Emot Resolve 2018-12-10 Lam feelings ion d 4-20 12:30:00 Briones present 12:20: [id number] 00 Respiratory smoker Respirator Resolve 2018-11-20 Shelby [...] Kezia Services kill Social d 11-26 13:30:[facility] 13:30: [id number] pt 00 Respiratory lung sounds Respirator Resolve [...] stuartg n d 12-18 12:30:00 Narendra 12:30: [id number] 00 Respiratory lung sounds Respirator Resolve 2018-12-24 [...] restriction d 01-16 12:30:00 [place] s 15:00: [id number] 00 Safety can be left Safety Resolve 2019-02-18 Kezia alone for d 01-16 12:10:00 [place] only short 15:00: [id number] periods 00 Respiratory smoker Respirator Resolve 2019-01-21 [...] BRISEYDA: Active Kezia Services kill Social 7-12 [facility] deficit - Services 14:00: [id number] cg 00 Respiratory lung sounds Respirator Resolve [...] Kezia feelings ion 02-18 [place] present 14:30: [id number] 00 Respiratory lung sounds Respirator Resolve 2019-03-04 [...] d 8- 12:30:00 [place] only short 15:30: [id number] periods 00 Respiratory smoker Respirator Resolve 2019-03-12 [...] 12:30: 00 Respiratory oxygen Respirator Resolve 2019-03-25 Shebly treatments y d 9 12:30:00 Vallely in [...] d 0-14 12:45:00 [place] only short 15:00: [id number] periods 00 Musculoskel requires Musculoske Resolve 2018-072019-05-06 [...] Resolve 2018-072019-06-24 Shelby ageel human letal d 08-17 11:55:00 [place]le[place] assist [...] fraire for 09-02 [place] only short 15:30: [id number] periods 00 Respiratory smoker Respirator Resolve 2018-072019-07-09 Shelby y d 2-19 12:15:00 [place] 12:15: 00 Musculoskel requires Musculoske Resolve 2018-072019-07-16 Shelby etal human letal d 09-09 12:30:00 [place] assist to 12:15: leave home [...] Unknown Reaction Ernestine Unknown 3-23 (Robert) [place] [id number] effexor Unknown Active Unknown Reaction Ernestine Unknown 3-23 (Robert) [place] [id number] compazine Unknown Active Unknown Reaction Ernestine Unknown 3-23 (Robert) [place] [id number] adhesive Unknown Active Unknown Reaction Ernestine tape Unknown 3-23 (Robert) [place] [id number] milk Unknown Active Unknown Reaction Ernestine Unknown 3-23 (Robert) [place] [id number] prochlorper Base Active Unknown extrapyramidal 2017-07 [place] azine Ingredient symptoms -19 Dilip venlafaxine Base Active Severe Hives, 2017-07 [place] Ingredient difficulty 08-09 Dilip breathing, itching promethazin Base Active Unknown extrapyramidal 2017-07 [place] e Ingredient symptoms - Dilip Gadolinium- Allergen [...] Unknown Unknown 300 mg 300 mg 04-08 MD,iJll capsule capsule gabapentin gabapentin 2018- No Liz [...]
[2019-08-07] MEDS ORDERED: NS 0.9% 1000 ML** 1,000 ML IV ONE ×2 (18:15→19:56)
[2019-08-07] MEDS ORDERED: Ondansetron INJ* 2 MG/ML VIAL IV ONE (18:15)
[2019-08-07] MEDS ORDERED: HYDROmorphone INJ* 0.5 MG/0.5 ML SYRINGE IV ONE (18:15)
--- NOTE | 2019-08-07 18:16 | ED ---
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 Current symptoms started yesterday. Decreased fluid and solid food intake today. History of recurrent headache over the past month. History of elevated opening pressure per LP 1 week ago. Patient started on acetazolamide 2 days ago. Patient taking Tylenol and hydromorphone 2 mg at home with no relief of symptoms. Headache located at top of head radiating down to occipital area. Denies neck stiffness, fever, trauma , cough, sore throat, CP, SOB, V/D, abdominal pain, change in urine, change in BM. Patient on Xarelto. Brain MRI 07/06/19 positive for 1 cm x 1 cm right frontal lesion. Oncologist Dr. Hill. Last chemotherapy treatment yesterday. - History Of Current Complaint Chief Complaint: EDHeadache Stated Complaint: HEADACHE PER PT Time Seen by Provider: 08/07/19 17:59 Hx Obtained From: Patient Hx Last Menstrual Period: 05/25/16 Onset/Duration: Gradual Onset, Started hours ago Timing: Constant Character: Dull, Throbbing, Pressure Location of Headache: Occipital, Other: Aggravating Factor: Bright Lights Allevating Factors: Nothing Associated Signs And Symptoms: Nausea, Visual Changes - Allergies/Home Medications Allergies/Adverse Reactions: Allergies Allergy/AdvReac Type Severity Reaction Status Date / Time Gadolinium-Containing Allergy Severe Anaphylatic Verified 08/07/19 16:22 Contrast Medi Shock venlafaxine Allergy Severe Hives/Diff. Verified 08/07/19 16:22 Breathing/I tching Latex, Natural Rubber Allergy Unknown Unknown Verified 08/07/19 16:22 Reaction Details milk Allergy Unknown Unknown Verified 08/07/19 16:22 Reaction Details Adhesive Tape Allergy skin break Verified 08/07/19 16:22 [Tegaderm Dressing] down prochlorperazine Allergy See Comment Verified 08/07/19 16:22 promethazine Allergy See Comment Verified 08/07/19 16:22 ANTI NAUSEA Allergy BODY Uncoded 07/31/19 14:07 TWISTS UP VERY HARD PMH/Surg Hx/FS Hx/Imm Hx Endocrine/Hematology History: Reports: Hx Diabetes - pt sts she takes no meds. Denies: Hx Anticoagulant Therapy, Hx Bone Marrow Disease, Hx Sickle Cell Disease, Hx Thyroid Disease, Hx Anemia, Other Endocrine/Hematological Disorders Cardiovascular History: Reports: Hx Congestive Heart Failure, Hx Deep Vein Thrombosis - Recent ovarian vein thrombosis, Hx Hypercholesterolemia, Other Cardiovascular Problems/Disorders - PT STATES DIFFICULTY WITH INJECTION FRACTION -HEART DAMAGE FROM CHEMO Denies: Hx Angina, Hx Cardiomegaly, Hx Coronary Artery Disease, Hx Hypertension, Hx Myocardial Infarction, Hx Pacemaker/ICD, Hx Peripheral Vascular Disease, Hx Rheumatic Fever, Hx Valvular Heart Disease Respiratory History: Reports: Hx Chronic Obstructive Pulmonary Disease (COPD) - STATES EARLY ONSET, Other Respiratory Problems/Disorders - SLEEPS WITH OXYGEN AT NIGHT 2L Denies: Hx Asthma, Hx Lung Cancer, Hx Pulmonary Edema, Hx Pulmonary Embolism , Hx Sleep Apnea GI History: Reports: Other GI Disorders - history of ulcerative colitis Denies: Hx Cirrhosis, Hx Crohn's Disease, Hx Gall Bladder Disease, Hx Gastroesophageal Reflux Disease, Hx Gastrointestinal Bleed, Hx Hiatal Hernia, Hx Irritable Bowel, Hx Jaundice, Hx Ulcer, Hx Urosepsis History: Denies: Hx Dialysis, Hx Kidney Infection, Hx Kidney Stones, Hx Renal Disease , Other Problems/Disorders Musculoskeletal History: Reports: Hx Arthritis, Hx Back Problems Denies: Hx Bursitis, Hx Tendonitis, Other Musculoskeletal History Sensory History: Denies: Hx Cataracts, Hx Contacts or Glasses, Hx Glaucoma, Hx Hearing Aid Opthamlomology History: Denies: Hx Cataracts, Hx Contacts or Glasses, Hx Glaucoma Neurological History: Reports: Hx Migraine, Hx Spinal Cord Injury - herniated disc Denies: Hx Dementia, Hx Headaches, Hx Nerve Disease, Hx Seizures, Hx Transient Ischemic Attacks (TIA), Other Neuro Impairments/Disorders Psychiatric History: Reports: Hx Anxiety, Hx Depression, Hx Post Traumatic Stress Disorder, Hx Suicide Attempt - states she has made three attempts; h/o overdose x 2 Denies: Hx Eating Disorder, Hx Panic Disorder, Hx Substance Abuse - Cancer History Cancer Type, Location and Year: 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 Hx Chemotherapy: Yes Hx Radiation Therapy: No - Surgical History Surgery Procedure, Year, and Place: lumbar diskectomy x 3; x 2; appendectomy; POWER PORT 2017; cholecystectomy;. LEFT FOOT-SURGICALLY REMOVED TOOTHPICK 2000; gamma knife surgery Hx Anesthesia Reactions: No - Immunization History Date of Tetanus Vaccine: UTD Date of Influenza Vaccine: NO Infectious Disease History: No Infectious Disease History: Denies: Hx Hepatitis, Hx Human Immunodeficiency Virus (HIV), Hx of Known/ Suspected MRSA, Traveled Outside the [place] in Last 30 Days - Family History Known Family History: Negative: Cardiac Disease, Hypertension - Social History Alcohol Use: None Hx Substance Use: No Substance Use Type: Reports: None Hx Tobacco Use: Yes Smoking Status (MU): Light Every Day Tobacco Smoker Type: Cigarettes Amount Used/How Often: 4-5 cigarettes per day Have You Smoked in the Last Year: Yes Review of Systems Constitutional: Negative Positive: Photophobia, Blurred Vision ENT: Negative Cardiovascular: Negative Respiratory: Negative Positive: Nausea Genitourinary: Negative Musculoskeletal: Negative Skin: Negative Positive: Headache Psychological: Normal All Other Systems Reviewed And Are Negative: Yes Physical Exam - Summary Physical Exam Summary: Neuro exam normal. Triage Information Reviewed: Yes Vital Signs On Initial Exam: Initial Vitals Temp Pulse Resp BP Pulse Ox 98 F 126 20 136/89 94 08/07/19 16:17 08/07/19 16:17 08/07/19 16:17 08/07/19 16:17 08/07/19 16:17 Vital Signs Reviewed: Yes Appearance: Positive: Well-Appearing Skin: Positive: Warm Head/Face: Positive: Normal Head/Face Inspection Eyes: Positive: Normal Neck: Positive: Supple Respiratory/Lung Sounds: Positive: Clear to Auscultation Cardiovascular: Positive: Normal Abdomen Description: Positive: Nontender Musculoskeletal: Positive: Normal Neurological: Positive: Normal Psychiatric: Positive: Normal AVPU Assessment: Alert - Gunnar Coma Scale Best Eye Response: 4 - Spontaneous Best Motor Response: 6 - Obeys Commands Best Verbal Response: 5 - Oriented Coma Scale Total: 15 Procedures - Sedation Patient Received Moderate/Deep Sedation with Procedure: No Diagnostics - Vital Signs Vital Signs Temp Pulse Resp BP Pulse Ox 08/07/19 16:17 98 F 126 20 136/89 94 - Laboratory Result Diagrams: 08/07/19 18:21 08/07/19 18:21 Lab Statement: Any lab studies that have been ordered have been reviewed, and results considered in the medical decision making process. 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 Current symptoms started yesterday. Decreased fluid and solid food intake today. History of recurrent headache over the past month. History of elevated opening pressure per LP 1 week ago. Patient started on acetazolamide 2 days ago. Patient taking Tylenol and hydromorphone 2 mg at home with no relief of symptoms. Headache located at top of head radiating down to occipital area. Denies neck stiffness, fever, trauma, cough, sore throat, CP, SOB, V/D, abdominal pain, change in urine, change in BM. Patient on Xarelto. Brain MRI 07/06/19 positive for 1 cm x 1 cm right frontal lesion. Oncologist Dr. Hill. Last chemotherapy treatment yesterday. Vital signs within normal limits. WBC 12.8. Hemoglobin 9.5 which is patient baseline. CRP 27. Alkaline phosphatase 154 which is near patient baseline. CT negative for acute process. Patient headache improved with Dilaudid 0.5 mg and normal saline [address] Keita 1st pressman on web press for oncology, who agreed patient could be discharged. - Diagnoses Provider Diagnoses: Migraine Discharge ED - Sign-Out/Discharge Documenting (check all that apply): Patient Departure - Discharge Plan Condition: Stable Disposition: HOME Patient Education Materials: Migraine Headache (ED) Referrals: Jill Hill MD [Primary Care Provider] - Additional Instructions: Continue taking acetazolamide as directed. Follow-up with Dr. Hill. Return to the ED for any new or worsening symptoms. - Billing Disposition and Condition Condition: STABLE Disposition: Home - Attestation Statements Provider Attestation: I was available for consult. This patient was seen by the MARTHA. The patient was not presented to, seen by, or examined by me. Darrius Garcia MD
[2019-08-07 18:29] LABS: ABS Eosinophils 0.3 10^3/ul (0-0.6); ABS Lymphocytes 1.2 10^3/ul (1.0-4.8); ABS Monocytes 0.8 10^3/ul (0-0.8); ABS Neutrophils 10.6 10^3/ul (1.5-7.7); Eosinophil % 2.4 %; Hematocrit 31 % (35-47); Hemoglobin 9.5 g/dL (12.0-16.0); Mean Corpuscular HGB Conc 31 g/dL (31-36); Mean Corpuscular Hemoglobin 24 pg (27-31); Mean Corpuscular Volume 78 fL (80-97); Mean Platelet Volume 8.4 fL (7.4-10.4); Platelet Count 186 10^3/uL (150-450); Red Cell Distribution Width 21 % (10-15); White Blood Count 12.8 10^3/uL (3.5-10.8)
[2019-08-07 18:45] LABS: ALT 19 U/L (7-52); AST 39 U/L (13-39); Albumin 3.8 g/dL (3.2-5.2); Albumin/Globulin Ratio 1.1 (1-3); Alkaline Phosphatase 154 U/L (34-104); Anion Gap 7 mmol/L (2-11); BUN/Creatinine Ratio 9.7 (8-20); Blood Urea Nitrogen 6 mg/dL (6-24); C Reactive Protein 27.13 mg/L (<8.01); CO2 Carbon Dioxide 23 mmol/L (22-32); Calcium 8.7 mg/dL (8.6-10.3); Chloride 105 mmol/L (101-111); EGFR African American 128.4 (>60); EGFR Non-African American 106.1 (>60); Globulin 3.4 g/dL (2-4); Glucose 141 mg/dL (70-100); Potassium 3.9 mmol/L (3.5-5.0); Sodium 135 mmol/L (135-145); Total Protein 7.2 g/dL (6.4-8.9)
[2019-08-07 18:51] LABS: HCG Pregnancy < 0.60 mIU/mL
[2019-08-07 22:06] VITALS: BP 109/69
== END 2019-08-07 22:00 | disposition home or self-care (01) ==
LOC: ED 16:15
DX: G43.909 Migraine, unspecified, not intractable, without status migrainosus (principal); C50.919 Malignant neoplasm of unspecified site of unspecified female breast; C78.7 Secondary malignant neoplasm of liver and intrahepatic bile duct; C77.9 Secondary and unspecified malignant neoplasm of lymph node, unspecified; C79.31 Secondary malignant neoplasm of brain; C79.51 Secondary malignant neoplasm of bone; E11.9 Type 2 diabetes mellitus without complications; I50.9 Heart failure, unspecified; E78.00 Pure hypercholesterolemia, unspecified; J44.9 Chronic obstructive pulmonary disease, unspecified; F41.9 Anxiety disorder, unspecified; F32.9 Major depressive disorder, single episode, unspecified; F43.10 Post-traumatic stress disorder, unspecified; F17.210 Nicotine dependence, cigarettes, uncomplicated; Z86.718 Personal history of other venous thrombosis and embolism; Z90.49 Acquired absence of other specified parts of digestive tract; Z90.89 Acquired absence of other organs; Z79.01 Long term (current) use of anticoagulants; Z79.899 Other long term (current) drug therapy; Z88.8 Allergy status to other drugs, medicaments and biological substances; Z91.041 Radiographic dye allergy status; Z91.040 Latex allergy status
CPT/HCPCS: 36415; 70450; 80053; 83605; 84702; 85025; 86140; 96361; 96374; 96375; 99283; J1170; J2405

== ENCOUNTER 2019-08-08 18:56 | Inpatient (IN) | payer OTHER ==
[2019-08-08] MEDS ORDERED: NS 0.9% 1000 ML** 1,000 ML IV ONE ×3 (19:00→23:58)
[2019-08-08] MEDS ORDERED: Piperacillin/Tazobac ADVAN(*) 3.375 GM in NS 0.9% 100 ML* 100 ML IVPB ONE (19:01)
[2019-08-08] MEDS ORDERED: cefTRIAXone(*) 2 GM in NS 0.9% 100 ML* 100 ML IVPB ONE (19:02)
[2019-08-08] MEDS ORDERED: Naloxone* 0.4 MG/ML 10 ML VIAL ONE (19:06)
--- OUTSIDE RECORDS SUMMARY | 2019-08-08 19:08 | XMS REPORT ---
:1975 Author Organization [facility] Care Team Providers Name [...] Resolve 2017-072018-08-27 Love pain d 08-16 15:00:00 [place] 10:20: [id number] 00 Respiratory smoker Respirator Resolve 2017-072018-07-23 Love y d 08-16 15:00:00 [place] 10:20: [id number] 00 Endo/Jose anti-coagul Endo/Jose Resolve 2017-072018-06-25 Love ation d 08-16 15:00:00 Carly therapy 10:20: [id number] 00 Nutrition nutritional Nutrition Resolve 2017-072018-07-04 Love restriction d 08-16 15:00:00 [place] s 10:20: [id number] 00 Neuro confusion Neuro/Emot Resolve 2017-072018-08-06 Love present ion d 08-16 15:00:00 [place] 10:20: [id number] 00 Neuro anxiety Neuro/Emot Resolve 2017-072018-08-06 Love present ion d 08-16 15:00:00 [place] 10:20: [id number] 00 Neuro depressive Neuro/Emot Resolve 2017-072018-08-06 Love feelings ion d 08-16 15:00:00 [place] present 10:20: [id number] 00 Safety risk for Safety Resolve 2017-072018-07-04 Love hospitaliza d 08-16 15:00:00 [place] tion 10:20: [id number] 00 Safety fall risk Safety Resolve 2017-072018-07-04 Ericka factor d 08-16 15:00:00 Vivian present 10:20: 00 Musculoskel requires Musculoske Resolve 2017-072018-07-04 Love etal human letal d 08-16 15:00:00 [place] assist to 10:20: [id number] leave home 00 Cardio hypertensio Cardiovasc Resolve [...] d 2-10 15:00:00 [place] deficit Services 14:00: [id number] 00 Social knowledge/s BRISEYDA: Resolve 2017-072018-09-22 [facility] Services kill Social d 2-10 13:00:00 [place] deficit - Services 14:00: [id number] pt 00 Social knowledge/s BRISEYDA: Resolve 2017-072018-09-22 [facility] kill Social d 2-10 13:00:00 [place] deficit - Services 14:00: [id number] cg 00 Musculoskel requires Musculoske Resolve 2017-072018-07-16 Shelby etal human letal d 2-19 15:00:00 [place] assist to 15:30: leave home 00 Diagnoses knowledge/s Diagnoses Active 2017-07 Kezia kill 09-14 [place] deficit: cg 13:00: [id number] 00 Integument skin Integument Resolve 2017-072018-08-06 Shelby [...] Active Kezia hospitaliza 2-18 [place] tion 14:00: [id number] 00 Safety can be left Safety Unknown Kezia alone for 2-18 [place] only short 14:00: [id number] periods 00 Pain frequent Pain Mgmt Resolve 2018-09-24 Lam pain d 2-27 15:00:00 Briones 15:50: [id number] 00 Safety can be left Safety Resolve 2018-10-08 Kezia alone for d 3-04 15:00:00 [place] only short 13:00: [id number] periods 00 Cardio edema Cardiovasc Resolve 2018-10-08 [...] ion d 4-08 13:00:00 Briones present 15:45: [id number] 00 Respiratory lung sounds Respirator Resolve 2018-10-29 Shelby deficit y d 4-10 13:00:00 [place] 13:00: 00 Infection s/s of Infection Resolve 2018-2019-02-04 Shelby infection d 4-17 12:30:00 [place] 13:00: 00 Respiratory smoker Respirator Resolve 2018-11-05 Shelby y d 4-17 13:00:00 [place] 13:00: 00 Neuro depressive Neuro/Emot Resolve 2018-12-10 Lam feelings ion d 4-20 12:30:00 Briones present 12:20: [id number] 00 Respiratory smoker Respirator Resolve 2018-11-20 Shelby y d 4-24 12:30:00 [place] 12:30: 00 Respiratory oxygen Respirator Resolve 2018-2018-12-04 Shebly ruby y d 5-08 12:30:00 [place] in home 12:30: 00 Respiratory smoker Respirator Resolve 2019-01-07 Shelby y d 5-08 12:30:00 [place] 12:30: 00 Safety can be left Safety Resolve 2018-12-10 Shelby alone for d 11-26 12:30:00 [place] only short 12:30: periods 00 Social knowledge/s BRISEYDA: Resolve 2018-11-26 [facility] kill Social d 11-26 [facility]:30[facility] 13:30: [id number] pt 00 Respiratory lung sounds Respirator Resolve [...] stuartg n d 12-18 12:30:00 Narendra 12:30: [id number] 00 Respiratory lung sounds Respirator Resolve 2018-12-24 [...] 12:30: 00 Nutrition nutritional Nutrition Resolve 2019-01-08 Hselby restriction d 620 15:00:00 [place] s 15:00: [...] restriction d 01-16 12:30:00 [place] s 15:00: [id number] 00 Safety can be left Safety Resolve 2019-02-18 Kezia alone for d 01-16 12:10:00 [place] only short 15:00: [id number] periods 00 Respiratory smoker Respirator Resolve 2019-01-21 [...] BRISEYDA: Active [facility] kill Social 7-12 [facility] deficit - Services 14:00: [id number] cg 00 Respiratory lung sounds Respirator Resolve [...] Kezia feelings ion 02-18 [place] present 14:30: [id number] 00 Respiratory lung sounds Respirator Resolve 2019-03-04 [...] d 8- 12:30:00 [place] only short 15:30: [id number] periods 00 Respiratory smoker Respirator Resolve 2019-03-12 [...] d 0-14 12:45:00 [place] only short 15:00: [id number] periods 00 Musculoskel requires Musculoske Resolve 2018-072019-05-06 [...] alone for 09-02 [place] only short 15:30: [id number] periods 00 Respiratory smoker Respirator Resolve 2018-072019-07-09 [...] diabetic Endo/Jose Unknown [facility] foot care 08-05 [facility] 14:00: [id number] 00 Social financial BRISEYDA: Active [facility] Services resource Social 08-05 [facility] deficit Services 14:00: [id number] 00 Allergies, Adverse Reactions, Alerts Allergy Allergy Status Severity Reaction(s) Onset Inactive Treating Comments Name Type Date Date Clinician phenergan Unknown Active Unknown Reaction Ernestine Unknown 3-23 (Robert) [place] [id number] effexor Unknown Active Unknown Reaction Ernestine Unknown 3-23 (Robert) [place] [id number] compazine Unknown Active Unknown Reaction Ernestine Unknown 3-23 (Robert) [place] [id number] adhesive Unknown Active Unknown Reaction Ernestine tape Unknown 3-23 (Robert) [place] [id number] milk Unknown Active Unknown Reaction Ernestine Unknown 3-23 (Robert) [place] [id number] prochlorper Base Active Unknown extrapyramidal 2017-07 [place] azine Ingredient symptoms - Dilip venlafaxine Base Active Severe Hives, 2017-07 [place] Ingredient difficulty 08-09 Dilip breathing, itching promethazin Base Active Unknown extrapyramidal 2017-07 [place] e Ingredient symptoms 08-09 Dilip Gadolinium- Allergen [...] No Liz Unknown Unknown tablet tablet 08-06 iJll CARRENO Nyamyc Nyamyc No Liz Unknown Unknown [...]
[2019-08-08] MEDS ORDERED: Etomidate* 2 MG/ML 10 ML VIAL IV ONE (19:09)
[2019-08-08] MEDS ORDERED: Rocuronium* 10 MG/ML VIAL IV ONE (19:09)
[2019-08-08] MEDS ORDERED: Etomidate* 2 MG/ML 20 ML VIAL (40 MG) ONE (19:13)
[2019-08-08] MEDS ORDERED: Rocuronium* 10 MG/ML VIAL ONE (19:13)
--- NOTE | 2019-08-08 19:16 | ED ---
Altered Mental Status - HPI Summary HPI Summary: Pt is a 43 y/o F presenting to the ED brought in by EMS for AMS. LEVEL 5 CAVEAT : Pts full hx and physical is limited d/t decreased responsiveness. Pt was here yesterday, 08/07/2019 for headaches, and was discharged after receiving medication that relieved her headache and having an LP done. She is here tonight mostly unresponsive, EMS found multiple narcotics in the home including one 150mcg Fentanyl patch and another 100mcg Fentanyl patch on the pts skin, and she was given 1 dose of narcan by EMS without response. EMS concerned for sepsis. Pt currently in tx for stage IV breast CA with mets to the liver, spine , and brain. No MOLST present. - History Of Current Complaint Chief Complaint: EDAltMentalStatus Stated Complaint: AMS PER EMS Time Seen by Provider: 08/08/19 19:00 Hx Obtained From: EMS Hx From Patient Unobtainable Due To: Altered Mental Status Hx Last Menstrual Period: 05/25/16 Onset/Duration: Still Present, Gradually Timing: Constant, Lasting Hours Severity Currently: Severe Character: Responsiveness, Lethargy Aggravating Factor(s): Unknown Alleviating Factor(s): Unknown Associated Signs And Symptoms: Positive: Negative - Allergies/Home Medications Allergies/Adverse Reactions: Allergies Allergy/AdvReac Type Severity Reaction Status Date / Time Gadolinium-Containing Allergy Severe Anaphylatic Verified 08/07/19 16:22 Contrast Medi Shock venlafaxine Allergy Severe Hives/Diff. Verified 08/07/19 16:22 Breathing/I tching Latex, Natural Rubber Allergy Unknown Unknown Verified 08/07/19 16:22 Reaction Details milk Allergy Unknown Unknown Verified 08/07/19 16:22 Reaction Details Adhesive Tape Allergy skin break Verified 08/07/19 16:22 [Tegaderm Dressing] down prochlorperazine Allergy See Comment Verified 08/07/19 16:22 promethazine Allergy See Comment Verified 08/07/19 16:22 ANTI NAUSEA Allergy BODY Uncoded 07/31/19 14:07 TWISTS UP VERY HARD PMH/Surg Hx/FS Hx/Imm Hx Previously Healthy: No Endocrine/Hematology History: Reports: Hx Diabetes - pt sts she takes no meds. Denies: Hx Anticoagulant Therapy, Hx Bone Marrow Disease, Hx Sickle Cell Disease, Hx Thyroid Disease, Hx Anemia, Other Endocrine/Hematological Disorders Cardiovascular History: Reports: Hx Congestive Heart Failure, Hx Deep Vein Thrombosis - Recent ovarian vein thrombosis, Hx Hypercholesterolemia, Other Cardiovascular Problems/Disorders - PT STATES DIFFICULTY WITH INJECTION FRACTION -HEART DAMAGE FROM CHEMO Denies: Hx Angina, Hx Cardiomegaly, Hx Coronary Artery Disease, Hx Hypertension, Hx Myocardial Infarction, Hx Pacemaker/ICD, Hx Peripheral Vascular Disease, Hx Rheumatic Fever, Hx Valvular Heart Disease Respiratory History: Reports: Hx Chronic Obstructive Pulmonary Disease (COPD) - STATES EARLY ONSET, Other Respiratory Problems/Disorders - SLEEPS WITH OXYGEN AT NIGHT 2L Denies: Hx Asthma, Hx Lung Cancer, Hx Pulmonary Edema, Hx Pulmonary Embolism , Hx Sleep Apnea GI History: Reports: Other GI Disorders - history of ulcerative colitis Denies: Hx Cirrhosis, Hx Crohn's Disease, Hx Gall Bladder Disease, Hx Gastroesophageal Reflux Disease, Hx Gastrointestinal Bleed, Hx Hiatal Hernia, Hx Irritable Bowel, Hx Jaundice, Hx Ulcer, Hx Urosepsis History: Denies: Hx Dialysis, Hx Kidney Infection, Hx Kidney Stones, Hx Renal Disease , Other Problems/Disorders Musculoskeletal History: Reports: Hx Arthritis, Hx Back Problems Denies: Hx Bursitis, Hx Tendonitis, Other Musculoskeletal History Sensory History: Denies: Hx Cataracts, Hx Contacts or Glasses, Hx Glaucoma, Hx Hearing Aid Opthamlomology History: Denies: Hx Cataracts, Hx Contacts or Glasses, Hx Glaucoma Neurological History: Reports: Hx Migraine, Hx Spinal Cord Injury - herniated disc Denies: Hx Dementia, Hx Headaches, Hx Nerve Disease, Hx Seizures, Hx Transient Ischemic Attacks (TIA), Other Neuro Impairments/Disorders Psychiatric History: Reports: Hx Anxiety, Hx Depression, Hx Post Traumatic Stress Disorder, Hx Suicide Attempt - states she has made three attempts; h/o overdose x 2 Denies: Hx Eating Disorder, Hx Panic Disorder, Hx Substance Abuse - Cancer History Cancer Type, Location and Year: 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 Hx Chemotherapy: Yes Hx Radiation Therapy: No - Surgical History Surgery Procedure, Year, and Place: lumbar diskectomy x 3; x 2; appendectomy; POWER PORT 2016; cholecystectomy;. LEFT FOOT-SURGICALLY REMOVED TOOTHPICK 2000; gamma knife surgery Hx Anesthesia Reactions: No - Immunization History Date of Tetanus Vaccine: UTD Date of Influenza Vaccine: NO Infectious Disease History: No Infectious Disease History: Denies: Hx Hepatitis, Hx Human Immunodeficiency Virus (HIV), Hx of Known/ Suspected MRSA, Traveled Outside the [place] in Last 30 Days - Family History Known Family History: Negative: Cardiac Disease, Hypertension - Social History Alcohol Use: None Hx Substance Use: No Substance Use Type: Reports: None Hx Tobacco Use: Yes Smoking Status (MU): Light Every Day Tobacco Smoker Type: Cigarettes Amount Used/How Often: 4-5 cigarettes per day Have You Smoked in the Last Year: Yes Review of Systems - ROS Summary Review of Systems Summary: LEVEL 5 CAVEAT: Pts full hx and physical is limited d/t decreased responsiveness. Neurological: Other - unresponsive All Other Systems Reviewed And Are Negative: No Physical Exam - Summary Physical Exam Summary: Constitutional: Well-developed, Well-nourished, vomit at airway, minimally responsive Skin: Warm, Dry. 100mcg Fentanyl patch found on R shoulder HENT: Normocephalic; Atraumatic Eyes: Conjunctiva normal, pupils 8mm and reactive to light Neck: Musculoskeletal ROM normal neck. (-) JVD, (-) Stridor, (-) Tracheal deviation Cardio: Rhythm regular, rate normal, Heart sounds normal; Intact distal pulses; Radial pulses are 2+ and symmetric. (-) Murmur Pulmonary/Chest wall: Effort normal. (-) Respiratory distress, (-) Wheezes, (-) Rales Abd: Soft, (-) tenderness, (-) Distension, (-) Guarding, (-) Rebound Musculoskeletal: (-) Edema. No signs of trauma Lymph: (-) Cervical adenopathy Neuro: Minimally responsive, does move extremities periodically Psych: Deferred Triage Information Reviewed: Yes Vital Signs On Initial Exam: Initial Vitals Temp Pulse Resp BP Pulse Ox 100.2 F 127 23 144/60 89 08/08/19 19:00 08/08/19 19:00 08/08/19 19:00 08/08/19 19:00 08/08/19 19:00 Vital Signs Reviewed: Yes Completion Of Physical Exam Limited Due To: Altered Mental Status, Level 5 - Gunnar Coma Scale Best Eye Response: 1 - None Best Motor Response: 4 - Withdraws Best Verbal Response: 1 - None Coma Scale Total: 6 Procedures - Procedure Summary Procedure Summary: 20mg Etomidate in 19:20 125mg Rocuronium in at 19:20 7.5 OT tube placed 19:21 23 at the teeth - Sedation Patient Received Moderate/Deep Sedation with Procedure: Yes Are You The Provider Who Administered The Sedation: Yes - Procedural Sedation/Analgesia Sedation Course: RT Present, Emergency Airway Equipment Available, Time Out Completed, End-tidal Capnography Utilized Sedation Course Details: Using 100mg Propofol IV drip, 125mg Rocuronium IV, and 20mg Etomidate IV. Adverse Reactions Experienced by Patient: None Mallampati Classification: Class II ASA Classification: Class V: Not Expected to Survive With/Without Procedure Pre-Procedural Heart: No Murmur Pre-Procedural Lungs: Clear Auscultation Comment/Plan of Care: intubation for possible OD, minimally responsive Provider Procedure Attestation: With My Signature Below, I Attest to have Personally Reviewed and Agree with the Pre-Sedation History and Pre-Service Assessment Update Cleared for Moderate Sedation: Yes Pre-Procedural Diagnosis: sepsis, tachycardia, AMS, fever, vomiting, breast CA Post-Procedural Diagnosis: sepsis, tachycardia, AMS, fever, vomiting, breast CA Procedure: intubation Estimated Blood Loss: None Specimen(s): None Findings: None Implants/Tubes/Drains Placed: Other Implants/Tubes/Drains Placed Comment: OT tube 7.5 - Intubation Time of Intubation: 19:21 Intubation Method: orotracheal Tube Size (cm): 7.5 - 23 at the teeth Breath Sounds after Intubation: equal Intubation Complications: no complications Post Intubation Xray: Yes Progress/Xray Impression: ET tube at level of clavicle. OG tube in stomach. Diagnostics - Vital Signs Vital Signs Temp Pulse Resp BP Pulse Ox 08/08/19 19:00 100.2 F 127 23 144/60 89 - Laboratory Result Diagrams: 08/08/19 19:31 08/08/19 19:31 Lab Statement: Any lab studies that have been ordered have been reviewed, and results considered in the medical decision making process. - Radiology CXR Radiology Interpretation Completed By: ED Physician Summary of Radiographic Findings: ET tube at level of clavicle. OG tube in stomach. Bilateral infiltrate which seems new compared to prior. Pending official radiology report. - CT Brain CT CT Interpretation Completed By: Radiologist Summary of CT Findings: 1. No acute intracranial findings or significant change since prior study. 2. A tiny peripheral hypodensity in the posterior right frontal lobe could represent the small known metastatic brain lesion, seen on recent MRI. No significant mass effect or midline shift. ED physician has reviewed this report. - EKG 1934 Cardiac Rate: Tachycardia - 134bpm EKG Rhythm: Sinus Tachycardia ST Segment: Normal Ectopy: None Summary of EKG Findings: EKG at 193 shows sinus tachycardia at 134bpm with no STEMI. ED physician has reviewed and interpreted this report. Re-Evaluation - Re-Evaluation 1st re-eval Re-Evaluation Time: 19:15 Change: Unchanged Comment: I spoke with the pt's family. They state she was fine this morning, went to sleep and was sleeping most of the day, and her sons were unable to wake her up, so they called EMS. She has no medical problems outside of the cancer, and she has hx of suicide attempts via overdose of opiates. Altered Mental Statu Course/Dx - Course Course Of Treatment: Patient was brought in with altered mental status. Patient seen here last night for headache, blurred vision, difficulty walking. Patient had a workup which was grossly negative. Oncology was called at that time and they recommended discharge. Patient was normal this morning but could not be woken up from her nap today. Upon arrival here, patient had vomitus in her airway, was minimally responsive, and febrile. Patient was satting 70% on room air so a oxy mask was placed. Patient was then successfully intubated using a 7.5 Uzbek tube. Patient had chest x-ray which showed proper tube placement and perihilar infiltrate versus edema. Patient had an OG tube placed and a Kaplan placed by nursing staff. Patient was given 2 L of IV fluid for her tachycardia. Patient was given rectal Tylenol for her fever. Patient had berumen culture performed was given 2 g of Rocephin for meningitis coverage and Zosyn. Patient had a CT scan showed no intracranial hemorrhage. Patient was admitted to the ICU. - Diagnoses Provider Diagnoses: Sepsis, Tachycardia, AMS (altered mental status), Vomiting, Fever, Breast CA - Provider Notifications Discussed Care Of Patient With: Behtany De Leon Time Discussed With Above Provider: 20:34 Instructed by Provider To: Admit As Inpatient - Critical Care Time Critical Care Time: 30-74 min - 60min Discharge ED - Sign-Out/Discharge Documenting (check all that apply): Patient Departure - Discharge Plan Condition: Stable Disposition: ADMITTED TO [facility] Referrals: Jill Hill MD [Primary Care Provider] - - Billing Disposition and Condition Condition: STABLE Disposition: Admitted to [facility] - Attestation Statements Document Initiated by Emmanuelleibe: Yes Documenting Scribe: Ashley Loera Provider For Whom Janiya is Documenting (Include Credential): Darrius Garcia MD. Scribe Attestation: Ashley Hook, scribed for Darrius Garcia MD. on 08/08/19 at 2112. Scribe Documentation Reviewed: Yes Provider Attestation: The documentation as recorded by the emmanuelleibAshley wood accurately reflects the service I personally performed and the decisions made by , Darrius Garcia MD. Status of Scribe Document: Viewed
[2019-08-08] MEDS: Propofol* 100 ML IV ONE (19:43)
[2019-08-08] MEDS ORDERED: Naloxone* 0.4 MG/ML 1 ML VIAL IV PUSH ONE (19:44)
[2019-08-08 19:46] LABS: ABS Basophils 0.2 10^3/ul (0-0.2); ABS Lymphocytes 1.4 10^3/ul (1.0-4.8); ABS Monocytes 1.1 10^3/ul (0-0.8); ABS Neutrophils 10.2 10^3/ul (1.5-7.7); Eosinophil % 0.1 %; Hematocrit 28 % (35-47); Hemoglobin 8.3 g/dL (12.0-16.0); Lymphocyte % 10.9 %; Mean Corpuscular HGB Conc 29 g/dL (31-36); Mean Corpuscular Hemoglobin 23 pg (27-31); Mean Corpuscular Volume 78 fL (80-97); Mean Platelet Volume 8.4 fL (7.4-10.4); Nucleated Red Blood Cells % 0.1; Platelet Count 166 10^3/uL (150-450); Red Blood Count 3.61 10^6 /uL (3.70-4.87); Red Cell Distribution Width 22 % (10-15); White Blood Count 12.9 10^3/uL (3.5-10.8)
[2019-08-08 19:48] LABS: Urine Appearance Clear; Urine Bilirubin Negative (Negative); Urine Blood Negative (Negative); Urine Color Yellow; Urine Glucose Negative (Negative); Urine Ketones Negative (Negative); Urine Nitrite Negative (Negative); Urine Protein Negative (Negative); Urine Urobilinogen Positive (Negative)
[2019-08-08 19:54] LABS: INR 2.17 (0.82-1.09)
[2019-08-08 20:01] LABS: ALT 23 U/L (7-52); AST 57 U/L (13-39); Albumin 3.4 g/dL (3.2-5.2); Albumin/Globulin Ratio 1.1 (1-3); Alkaline Phosphatase 147 U/L (34-104); Anion Gap 9 mmol/L (2-11); BUN/Creatinine Ratio 10.7 (8-20); Blood Urea Nitrogen 20 mg/dL (6-24); CO2 Carbon Dioxide 21 mmol/L (22-32); Calcium 7.9 mg/dL (8.6-10.3); Chloride 108 mmol/L (101-111); Creatine Kinase 1217 U/L (10-223); EGFR African American 35.9 (>60); EGFR Non-African American 29.7 (>60); Globulin 3.1 g/dL (2-4); Glucose 145 mg/dL (70-100); Potassium 4.1 mmol/L (3.5-5.0); Sodium 138 mmol/L (135-145); Total Protein 6.5 g/dL (6.4-8.9)
[2019-08-08 20:10] LABS: Troponin I 0.53 ng/mL (<0.03)
[2019-08-08 20:10] LABS: Urine Benzodiazepine Screen Presumptive Positive (None Detect); Urine Opiates Screen Presumptive Positive (None Detect)
[2019-08-08 20:18] LABS: Alcohol < 10 mg/dL (<10)
[2019-08-08] MEDS ORDERED: Acetaminophen SUPP* 120 MG SUPP PR ONE (20:32)
[2019-08-08 21:01] LABS: Influenza A Molecular NEGATIVE (Negative); Influenza B Molecular NEGATIVE (Negative)
[2019-08-08] MEDS ORDERED: Docusate CAP* 100 MG PO PRN (21:12)
[2019-08-08] MEDS ORDERED: Polyethylene Glycol 3350* 17 GM PACKET PO PRN (21:12)
[2019-08-08] MEDS ORDERED: Vancomycin(*) 1,000 MG in NS 0.9% 250 ML* 250 ML IV ONE (21:17)
[2019-08-08] MEDS ORDERED: Albuterol/Ipratropium NEB.SOL* Albuterol 2.5 MG/Ipratropium 0.5 MG 3 ML INH PRN (21:40)
[2019-08-08] MEDS ORDERED: Zosyn per Pharmacy* NOTE FOLLOW UP SCH (22:00)
[2019-08-08 22:22] LABS: Activated Partial Thrombo Time 46.5 seconds (26.0-38.0)
[2019-08-08] MEDS: NS 0.9% 1000 ML** 1,000 ML IV SCH (22:29)
[2019-08-08] MEDS ORDERED: NS 0.9% 500 ML* 500 ML IV ONE (22:53)
[2019-08-08] MEDS: Pantoprazole IV* 40 MG IV SCH (23:33)
[2019-08-08] MEDS: Heparin VIAL(*) 5000 UNITS/ML VIAL (FIVE THOUSAND) IV SCH (23:38)
[2019-08-08] MEDS: Heparin DRIP 25,000 UNITS(*) 25,000 UNITS/500 ML BAG IV SCH (23:38)
--- NOTE | 2019-08-09 00:22 | HP ---
CC: Dr. Jill Hill HISTORY AND PHYSICAL: DATE OF ADMISSION: 08/08/19 PRIMARY ONCOLOGIST: Dr. Jill Hill. REASON FOR THE ADMISSION: CHIEF COMPLAINT: Found unresponsive. HISTORY OF PRESENT ILLNESS: This is a 43-year-old female with past medical history of breast cancer, metastatic; COPD; depression; chronic pain syndrome, on pain medications and anxiety medications, who now is in our emergency room because of found unresponsive at home by her son. The patient was in our emergency room yesterday, 08/07/19, at that time was complaining of headaches. At that time, yesterday, the patient was given IV fluids, the patient's headache had improved after getting pain medication and the patient was subsequently discharged home. Of note, yesterday's note mentioned the patient did not have any neck stiffness. The patient in our emergency room was found to be unresponsive, under initial examination, the patient was found to have vomitus in her throat. The patient was subsequently intubated in the emergency room. As I am evaluating the patient, the patient is currently intubated. She has been ordered for sedation. Currently, she is not responding to tactile stimuli. Full review of systems is limited as the patient cannot give me further history due to intubation. Her father who is a healthcare proxy is at bedside, reports nothing out of the ordinary. The patient had a recent lumbar puncture on 07/31/19, which showed CSF glucose of 86, CSF WBC was 4. PAST MEDICAL HISTORY: 1. Includes metastatic breast cancer, ER positive, HER-2 positive. The patient is followed by Dr. Jill Hill. 2. History of tachycardia. 3. History of COPD. 4. Tobacco use. 5. Chronic pain syndrome. 6. Depression. 7. Migraines. 8. History of ovarian vein thrombosis on her anticoagulation. HOME MEDICATIONS: Include: 1. Zofran 4 mg as needed. 2. Naproxen 200 mg every 8 hours as needed. 3. Trazodone 200 mg daily. 4. Xarelto 20 mg daily. 5. Budesonide/formoterol 2 puffs inhaled b.i.d. as needed. 6. Xanax 1 mg 4 times a day as needed. 7. Soma 250 mg every 4 hours as needed. 8. Rexulti 2 mg daily. 9. Oxycodone 1 to 2 tabs every 4 hours as needed. 10. Fentanyl patch 200 mcg patch every 72 hours. 11. Decadron 2 mg twice a day. 12. Klor-Con 20 mEq daily. 13. MiraLAX 17 g daily as needed. 14. Neurontin 600 mg t.i.d. 15. Colace 200 mg twice a day as needed. 16. Duloxetine 60 mg at bedtime. 17. Cetirizine 10 mg daily. ALLERGIES: Include: 1. GADOLINIUM. 2. VENLAFAXINE. 3. LATEX. 4. MILK. 5. ADHESIVE TAPE. 6. PROCHLORPERAZINE. 7. PROMETHAZINE. 8. ANTINAUSEA PILLS. FAMILY HISTORY: Father is alive and healthy. Mother's family history is not known. SOCIAL HISTORY: The patient is , lives with her 2 children. Has been smoking for 20 years and is quitting. Her father is the healthcare proxy, name is Rafael, phone number is [phone]. The patient is full code. REVIEW OF SYSTEMS: Limited is as the patient cannot give history. PHYSICAL EXAMINATION GENERAL: This is an obese female, well developed, well nourished, lying in bed , intubated, unresponsive. VITAL SIGNS: Blood pressure is 167/93, currently 95% on ventilation, oxygen is low as 89% documented in our computer system, heart rate of 134, respiratory rate of 16, temperature of 100.2 Fahrenheit. HEENT: Pupils are dilated, however, responsive to light, there is no nystagmus , oral mucosa is dry. There is no thyromegaly. HEART: Regular, tachycardia. No murmurs. LUNGS: The patient is intubated, equal air entry bilaterally with minimal wheezing. ABDOMEN: Normoactive bowel sounds, abdomen is soft, nontender, nondistended. EXTREMITIES: There is no lower extremity edema with no air edema, radial pulses 2+ bilaterally. NEUROLOGICAL: The patient is intubated, does not respond to toxic stimuli. SKIN: Warm and dry DIAGNOSTIC STUDIES/LAB DATA: WBC of 12.9, hemoglobin of 8.3, hematocrit of 28 , MCV of 78, RDW of 22, absolute neutrophil count of 10.2. INR of 2.17. VBG shows pH of 7.19, pCO2 of 50, pO2 of 95. Sodium of 138, potassium 4.1, chloride 108, bicarb is 21, anion gap of 9, BUN 20, creatinine 1.87, glucose of 145, lactic acid of 1.4, calcium of 7.9. AST of 57, ALT of 23, alkaline phosphatase of 147. Total creatine kinase of 1217. Troponin of 0.53. Urinalysis shows positive for urobilinogen, U- tox positive for opiates and benzodiazepine, serum alcohol is less than 10. CAT scan of the head was done, which revealed no acute intracranial findings or significant change from prior study. A tiny peripheral hypodensity in the posterior right frontal lobe could be presented to be the small known metastatic brain lesion, seen on recent MRI. No significant mass effect or midline shift. An EKG was done, which showed sinus tachycardia with no acute ST-T changes. IMPRESSION AND PLAN: 1. Altered mental status. The patient was found unresponsive at home. Etiology could be sepsis related, however, the patient has significant medication list that could contribute to this, likely polypharmacy. The patient was given Narcan in the emergency room with minimal change. Currently, her pupils are dilated. We will hold the patient's home dose narcotics as well as benzodiazepines. Additional consideration, the patient was found to have hyperammonemia in the past, I will check an ammonia level as well. We will treat for possible sepsis. 2. Acute kidney injury with rhabdomyolysis: The patient's unknown duration for how long she has been on the ground for, we will give IV fluids, avoid nephrotoxic agents. 3. Possible sepsis: At this point, she does have leukocytosis with temperature of 100.2. I will start the patient on empiric Zosyn, as the patient was found to have some vomitus in her throat. This would cover for possible aspirations pneumonia. Blood culture has been sent, flu has been ordered. Urinalysis was negative. One dose of vancomycin will be given as well. Additional consideration, given the patient had a recent headache, could be meningitis. If there are no findings of infection, we could entertain the possibility of doing a lumbar puncture. 4. Acute respiratory failure secondary to altered mental status caused by possibly polypharmacy. Continue vent support, propofol for sedation. 5. History of ovarian vein thrombosis: I will hold oral Xarelto, start the patient on heparin drip in the meantime. 6. History of chronic pain syndrome, history of anxiety: hold all sedatives, narcotics, and benzos due to the patient having altered mental status. 7. Metastatic breast cancer history, followed by oncologist. 8. Elevated troponin, this could be secondary to demand-related ischemia in the setting of acute respiratory failure and also acute kidney injury. At this point, I will get a second troponin as well and a third troponin. The patient will be on heparin drip because of her ovarian vein thrombosis. Check Echocardiogram. 9. Metabolic acidosis: Possibly sepsis related and acute kidney injury related 10. prophylaxis. Start pantoprazole IV daily. DVT prophylaxis with a heparin drip. 11. Supportive care, ICU level. The patient would be admitted to the intensive care unit, currently will be n.p.o. [id number]/[facility] #: [id number] SANKET
[2019-08-09 00:24] LABS: Troponin I 0.47 ng/mL (<0.03)
--- NOTE | 2019-08-09 00:37 | PN ---
Hospitalist Progress Note Date of Service: 08/09/19 08/09/19: 12:37AM Admitted few hours ago, in the ICU, intubated. Having hypotension: giving bolus. will continue to monitor, consider levophed if remains hypotensive SHe is on chronic decadron with history of metastatic breast cancer, now due to hypotension, will change decadron to stress dose steroids with hydrocortisone 100mg Q8hrs, and then slowly taper to her home decadron 2mg BID. 12:49AM Blood pressure remains low, half of the one liter bolus has been infused, will start levophed drip. 12:51AM: Ammonia level is high, will start lactulose. 3:50AM: Patient now getting more awake, despite increasing propofol, seems to be in pain. will give one dose morphine 1mg IV push will continue to monitor.
[2019-08-09] MEDS: Piperacillin/Tazobac ADVAN(*) 3.375 GM in NS 0.9% 100 ML* 100 ML IVPB SCH ×2 (00:45→08:30)
[2019-08-09] MEDS: Chlorhexidine MOUTHWASH 0.12%* 15 ML UDC TOPICAL SCH ×6 (00:45→20:08)
[2019-08-09 00:54] LABS: Salicylate < 2.50 mg/dL (<30)
[2019-08-09] MEDS ORDERED: Norepinephrine 16MCG/ML IVPRE* 4,000 MCG/250 ML BAG IV ONE (00:55)
[2019-08-09] MEDS: Norepinephrine 16MCG/ML IVPRE* 4,000 MCG/250 ML BAG IV SCH ×2 (00:59→07:09)
[2019-08-09] MEDS: Hydrocortisone INJ* 100 MG/2 ML VIAL (in pyxis) IV SCH ×2 (01:00→08:52)
[2019-08-09] MEDS ORDERED: Hydrocortisone INJ* 100 MG VIAL IV SCH (01:00)
[2019-08-09] MEDS ORDERED: Propofol* 100 ML ONE ×3 (02:54→10:57)
[2019-08-09] MEDS: Propofol* 100 ML IV ONE ×2 (02:56→06:56)
[2019-08-09] MEDS ORDERED: Propofol* 100 ML IV SCH (03:00)
[2019-08-09] MEDS ORDERED: Morphine INJ* 2 MG/ML 1 ML SYRINGE (TWO MG - NEW SYRINGE VERSION) IV ONE (03:34)
[2019-08-09 06:19] LABS: INR 1.62 (0.82-1.09)
[2019-08-09 06:24] LABS: ABS Basophils 0.1 10^3/ul (0-0.2); ABS Lymphocytes 0.8 10^3/ul (1.0-4.8); ABS Monocytes 0.7 10^3/ul (0-0.8); ABS Neutrophils 16.7 10^3/ul (1.5-7.7); Eosinophil % 0.1 %; Hematocrit 29 % (35-47); Hemoglobin 8.5 g/dL (12.0-16.0); Lymphocyte % 4.5 %; Mean Corpuscular HGB Conc 29 g/dL (31-36); Mean Corpuscular Hemoglobin 23 pg (27-31); Mean Corpuscular Volume 79 fL (80-97); Mean Platelet Volume 8.3 fL (7.4-10.4); Nucleated Red Blood Cells % 0.2; Platelet Count 174 10^3/uL (150-450); Red Blood Count 3.69 10^6 /uL (3.70-4.87); Red Cell Distribution Width 21 % (10-15); White Blood Count 18.4 10^3/uL (3.5-10.8)
[2019-08-09 06:32] LABS: ALT 48 U/L (7-52); AST 118 U/L (13-39); Albumin 3.3 g/dL (3.2-5.2); Alkaline Phosphatase 138 U/L (34-104); BUN/Creatinine Ratio 16.8 (8-20); Blood Urea Nitrogen 16 mg/dL (6-24); CO2 Carbon Dioxide 20 mmol/L (22-32); Calcium 7.7 mg/dL (8.6-10.3); EGFR African American 78.4 (>60); EGFR Non-African American 64.8 (>60); Globulin 3.3 g/dL (2-4); Glucose 198 mg/dL (70-100); Magnesium 2.3 mg/dL (1.9-2.7); Phosphorus 2.3 mg/dL (2.5-5.0); Potassium 3.9 mmol/L (3.5-5.0); Sodium 140 mmol/L (135-145); Total Protein 6.6 g/dL (6.4-8.9)
[2019-08-09 06:34] LABS: Anion Gap 8 mmol/L (2-11); Chloride 112 mmol/L (101-111)
[2019-08-09 06:37] LABS: Troponin I 0.31 ng/mL (<0.03)
[2019-08-09 06:38] LABS: CKMB ng/mL 5.5 ng/mL (0.6-6.3)
[2019-08-09 07:06] LABS: Activated Partial Thrombo Time 80.6 seconds (26.0-38.0)
[2019-08-09] MEDS: Mometasone/Formoter 200/5 MDI INH SCH ×2 (07:15→19:01)
[2019-08-09] MEDS ORDERED: Perflutren Lipid Microsphere* 3 ML VIAL ONE (08:02)
[2019-08-09] MEDS ORDERED: Dexamethasone IV* 4 MG/ML 1 ML (4 MG) IV SLOW PU SCH (09:00)
[2019-08-09] MEDS ORDERED: Vancomycin(*) 1,250 MG in NS 0.9% 250 ML* 250 ML IVPB SCH (10:00)
[2019-08-09] MEDS ORDERED: Vancomycin per Pharmacy* NOTE FOLLOW UP SCH (10:00)
--- NOTE | 2019-08-09 10:41 | ECHO ---
*[facility]* [place] [address] Fax #: [phone] Transthoracic Echocardiogram Patient: Pushpa Guevara : 1975 Study Date: 08/09/2019 Age: 43 Gender: F HR: 107 bpm Height: 68 in /172.7 cm BSA: 2.34 m^2 Weight: 274.4 lb /124.7 kg BMI: 41.8 kg/m^2 *Baseball Pitcher: * Tarsha Jennings RDCS RN *Referring Physician: * Bethany De Leon *Reading Physician: * Marshal French MD Indications: Resp Insufficiency. Elevated troponin levels. Tachycardia. History: Chronic obstructive pulmonary disease. Metastatic breast cancer. H[employer]IST lesions. Chemotherapy. Risk factors: Current tobacco use. Obese. Dyslipidemia. Conclusions Summary: - Left ventricle: Systolic function is normal. The estimated ejection fraction is 55-60%. The patient is on a Levophed drip during the exam. Wall motion is normal; there are no regional wall motion abnormalities. - Right ventricle: Systolic function is low normal. - Mitral valve: There is trace regurgitation. - Aortic valve: There is no evidence of stenosis. There is no significant regurgitation. - Pulmonary arteries: Systolic pressure is mildly increased, estimated to be 37 mm Hg. - Compared to study of 07/24/18, there is no change. Study data: Transthoracic echocardiogram. Procedure: Transthoracic echocardiography was performed. Image quality was fair. The study was technically limited due to body habitus and COPD. The patient was on a ventilator and a Levophed drip during the exam. Intravenous Definity 4 ml was administered to enhance imaging. Complete 2D, spectral Doppler, and color flow Doppler. Location: ICU Patient status: Inpatient. Patient room number: ICU 5. Rhythm: Tachycardia. Findings Left ventricle: The cavity size is normal. Wall thickness was difficult to measure. Systolic function is normal. The estimated ejection fraction is 55-60%. The patient is on a Levophed drip during the exam. Wall motion is normal; there are no regional wall motion abnormalities. There is no consistent Doppler evidence of clinically significant diastolic dysfunction. Right ventricle: The cavity size is mildly to moderately dilated. Wall thickness is mildly increased. Systolic function is low normal. Ventricular septum: There is mild septal flattening of the interventricular septum consistent with RV volume or pressure overload. Left atrium: The atrium is normal in size. Right atrium: The atrium is slightly dilated. Mitral valve: The leaflets are mildly thickened. There is no evidence of stenosis. There is trace regurgitation. Aortic valve: Not well visualized. There is no evidence of stenosis. There is no significant regurgitation. Tricuspid valve: Not well visualized. There is mild regurgitation. Pulmonic valve: Not well visualized. Aorta: Aortic root: The aortic root is not dilated. Ascending aorta: The ascending aorta is not visualized. Aortic arch: The aortic arch is not dilated. Pericardium: A prominent pericardial fat pad is present. There is no significant pericardial effusion. Pulmonary arteries: Not well visualized. Systolic pressure is mildly increased, estimated to be 37 mm Hg. Systemic veins: Inferior vena cava: Not well visualized. Measurements Left ventricle Value Ref Aortic valve Value Ref CRISTIANE, LAX 4.4 cm 3.8 - 5.2 [place] diam, ED 1.8 cm ---- PW, ED, LAX (H) 1.0 cm 0.6 - 0.9 Peak v, S 2.2 m/sec ---- PW, ED (H) 1.0 cm 0.6 - 0.9 VTI, S 37.4 cm ---- PW/ID, ED 0.22 Mean grad, S 10.0 mm Hg ---- E', lat [place], TDI 12.3 cm/sec >=10.0 Peak grad, S 19.0 mm Hg --- - E/e', lat [place], 13 LVOT/AV, VTI ratio 0.72 ---- TDI E', med [place], TDI 8.3 cm/sec >=7.0 Mitral valve Value Ref E/e', med wilton, 20 Peak E 1.62 m/sec ---- TDI Peak A 1.06 m/sec ---- E', avg, TDI 10.3 cm/sec Decel time 190 ms ---- E/e', avg, TDI (H) 16 <=14 PHT 60 ms --- - Mean grad, D 4.0 mm Hg ---- LVOT Value Ref Peak grad, D 9.0 mm Hg ---- Peak bree, S 1.57 m/sec Peak E/A ratio 1.5 ---- VTI, S 26.9 cm MVA, PHT 3.7 cm^2 ---- Peak grad, S 10 mm Hg Mean grad, S 5 mm Hg Pulmonic valve Value Ref Peak v, S 1.04 m/sec ---- Ventricular septum Value Ref Peak grad, S 4.0 mm Hg ---- IVS, ED 0.9 cm 0.6 - 0.9 Tricuspid valve Value Ref Right ventricle Value Ref Peak RV-RA grad, S 29 mm Hg ---- AW thickness, ED (H) 0.7 cm 0.1 - 0.5 Max TR bree 2.71 m/sec ---- CRISTIANE, LAX 4.6 cm CRISTIANE minor ax, A4C (H) 4.1 cm 1.9 - 3.5 Aortic root Value Ref mid Root diam 2.8 cm <4.4 Pressure, S 37 mm Hg Aortic arch Value Ref Left atrium Value Ref Arch diam 2.3 cm ---- AP dim, ES (H) 3.90 cm 2.70 - 3.80 Decending aorta Value Ref ML dim, A4C 4.9 cm Eli peak bree 1.23 m/sec ---- SI dim, A4C 5.4 cm Vol/bsa, ES, 1-p 34 ml/m^2 11 - 40 Pulmonary artery Value Ref A4C Pressure, S 37.0 mm Hg ---- Vol/bsa, ES, A/L 30 ml/m^2 16 - 34 Right atrium Value Ref ML dim, ES, A4C 4.4 cm 2.6 - 4.4 SI dim, ES, A4C (H) 5.4 cm 3.4 - 5.3 Legend: (L) and (H) loreto values outside specified reference range. Prepared and electronically signed by Marshal French MD 08/09/2019 10:41
[2019-08-09] MEDS: Propofol* 100 ML IV SCH ×5 (10:58→22:56)
--- NOTE | 2019-08-09 12:27 | EEG ---
ELECTROENCEPHALOGRAPHY: DATE OF STUDY: 08/09/19 PATIENT OF: Dr. Maloney. CLINICAL PROBLEM: This is a 43-year-old woman who was admitted early this morning after being found unresponsive. The patient is intubated and sedated. She had been complaining of headache a day or so before her unresponsiveness. Of note, she has a history of metastatic breast cancer. MEDICATIONS: Include: 1. Propofol. 2. Decadron. 3. Levophed. 4. Vancomycin. 5. Zosyn. 6. Hydrocortisone. 7. Lactulose. 8. Protonix. 9. Heparin drip. REPORT: Background cerebral activity consists of moderate amplitude diffuse delta and theta activity with some superimposed beta range frequencies. There is some spindle activity with shifting asymmetry. Some of this is sharply contoured. When the propofol was stopped, this activity appeared to resolve. No clear-cut epileptiform potentials, focal abnormalities, or major asymmetries of background are noted. CLINICAL IMPRESSION: This EEG is abnormal because of diffuse slowing of background consistent with an encephalopathy, but nonspecific as to etiology. Medications such as propofol could be contributing to this slowing. There was also some activity appearing as spindles, but some of this was sharply contoured. This sharply contoured activity went away when the propofol was stopped and most likely this was a pattern of sedation and drowsiness and not epileptiform in nature. [id number]/[facility] #: [id number] [place]ET
[2019-08-09 12:32] LABS: Urine Appearance Clear; Urine Bilirubin Negative (Negative); Urine Blood Negative (Negative); Urine Color Yellow; Urine Glucose Negative (Negative); Urine Ketones Trace (Negative); Urine Nitrite Negative (Negative); Urine Protein Negative (Negative); Urine Specific Gravity 1.018 (1.010-1.030); Urine Urobilinogen Negative (Negative)
[2019-08-09] MEDS ORDERED: levETIRAcetam 1000MG IVPREMIX* 1,000 MG/100 ML BAG IVPB ONE (12:49)
--- NOTE | 2019-08-09 12:56 | PN ---
Addendum entered and electronically signed by Mellissa Yu NP 08/09/19 14: 54: Progress Note - Progress Note Date of Service: 08/09/19 Note: Vent settings: CMV 18/450/+8/40% Original Note: <Mellissa Yu - Last Filed: 08/09/19 14:53> Progress Note - Progress Note Date of Service: 08/09/19 Note: Progress Note -- Critical Care 24 hour events/significant events: - Patient admitted to ICU after being intubated for airway protection - Hypotensive, concern for sepsis so was bolused with fluids and started on levophed - Febrile to 102 - Discontinued her home Xarelto and started on heparin drip. ROS: ROS unable to be obtained secondary to intubated/sedated Tele: Sinus tachycardia, HR low 100's Vitals: Vital Signs 08/08/19 08/08/19 08/08/19 19:00 19:37 19:39 Temperature 100.2 F Pulse Rate 127 134 134 Respiratory 23 Rate Blood Pressure 144/60 177/96 (mmHg) O2 Sat by Pulse 89 96 96 Oximetry 08/08/19 08/08/19 08/08/19 20:04 20:08 20:19 Temperature Pulse Rate 135 134 133 Respiratory Rate Blood Pressure 167/93 173/87 (mmHg) O2 Sat by Pulse 95 95 95 Oximetry 08/08/19 08/08/19 08/08/19 20:29 20:39 20:49 Temperature Pulse Rate 131 132 130 Respiratory Rate Blood Pressure 170/88 177/79 158/85 (mmHg) O2 Sat by Pulse 95 94 94 Oximetry 08/08/19 08/08/19 08/08/19 20:59 21:01 21:09 Temperature Pulse Rate 132 132 128 Respiratory Rate Blood Pressure 160/82 159/87 (mmHg) O2 Sat by Pulse 89 89 92 Oximetry 08/08/19 08/08/19 08/08/19 21:19 21:24 21:29 Temperature Pulse Rate 124 124 122 Respiratory Rate Blood Pressure 151/77 150/78 144/73 (mmHg) O2 Sat by Pulse 92 92 91 Oximetry 08/08/19 08/08/19 08/08/19 21:34 21:39 21:44 Temperature 102.0 F 102.0 F Pulse Rate 121 122 120 Respiratory Rate Blood Pressure 129/76 129/76 125/80 (mmHg) O2 Sat by Pulse 92 91 91 Oximetry 08/08/19 08/08/19 08/08/19 21:45 21:49 21:54 Temperature 101.6 F 102.0 F 101.8 F Pulse Rate 115 122 120 Respiratory 18 Rate Blood Pressure 106/51 136/66 122/65 (mmHg) O2 Sat by Pulse 97 92 95 Oximetry 08/08/19 08/08/19 08/08/19 22:00 22:15 22:25 Temperature 101.7 F 101.7 F Pulse Rate 115 116 Respiratory 16 16 Rate Blood Pressure 122/65 (mmHg) O2 Sat by Pulse 94 94 Oximetry 08/08/19 08/08/19 08/08/19 22:34 22:45 23:00 Temperature 101.7 F 101.5 F 101.3 F Pulse Rate 114 112 111 Respiratory 16 Rate Blood Pressure 106/51 95/48 86/38 (mmHg) O2 Sat by Pulse 97 97 98 Oximetry 08/08/19 08/08/19 08/08/19 23:15 23:30 23:45 Temperature 100.9 F 100.8 F 100.4 F Pulse Rate 111 108 107 Respiratory Rate Blood Pressure 89/46 93/46 92/41 (mmHg) O2 Sat by Pulse 98 98 98 Oximetry 08/08/19 08/09/19 08/09/19 23:56 00:00 00:15 Temperature 100.2 F 100.0 F 99.9 F Pulse Rate 107 107 106 Respiratory 16 Rate Blood Pressure 94/44 90/46 94/53 (mmHg) O2 Sat by Pulse 98 98 98 Oximetry 08/09/19 08/09/19 08/09/19 00:30 00:43 00:45 Temperature 99.7 F 99.5 F 99.5 F Pulse Rate 105 104 104 Respiratory Rate Blood Pressure 90/49 89/50 89/47 (mmHg) O2 Sat by Pulse 97 98 98 Oximetry 08/09/19 08/09/19 08/09/19 01:00 01:15 01:30 Temperature 99.1 F 99.1 F 99.0 F Pulse Rate 104 104 103 Respiratory 16 Rate Blood Pressure 92/47 100/51 102/52 (mmHg) O2 Sat by Pulse 98 98 98 Oximetry 08/09/19 08/09/19 08/09/19 01:45 02:00 02:15 Temperature 99.0 F 98.8 F 98.8 F Pulse Rate 103 103 103 Respiratory 16 Rate Blood Pressure 106/53 110/55 113/55 (mmHg) O2 Sat by Pulse 98 98 98 Oximetry 08/09/19 08/09/19 08/09/19 02:30 02:45 03:00 Temperature 98.8 F 98.8 F Pulse Rate 103 104 Respiratory 19 Rate Blood Pressure 110/55 108/63 (mmHg) O2 Sat by Pulse 98 98 Oximetry 08/09/19 08/09/19 08/09/19 03:01 03:16 03:30 Temperature 99.0 F 99.0 F 99.0 F Pulse Rate 107 105 104 Respiratory Rate Blood Pressure 105/96 95/69 101/49 (mmHg) O2 Sat by Pulse 99 94 95 Oximetry 08/09/19 08/09/19 08/09/19 03:45 04:00 04:01 Temperature 99.0 F 99.0 F Pulse Rate 104 105 Respiratory 18 18 Rate Blood Pressure 103/51 103/49 (mmHg) O2 Sat by Pulse 96 97 Oximetry 08/09/19 08/09/19 08/09/19 04:15 04:31 04:46 Temperature 99.0 F 99.0 F 99.0 F Pulse Rate 105 105 105 Respiratory Rate Blood Pressure 104/45 108/47 102/45 (mmHg) O2 Sat by Pulse 97 98 97 Oximetry 08/09/19 08/09/19 08/09/19 05:00 05:16 05:31 Temperature 99.0 F 99.0 F 99.1 F Pulse Rate 106 107 106 Respiratory 16 Rate Blood Pressure 108/50 98/47 89/49 (mmHg) O2 Sat by Pulse 97 97 97 Oximetry 08/09/19 08/09/19 08/09/19 05:42 05:45 06:00 Temperature 99.1 F 99.1 F 99.1 F Pulse Rate 106 106 107 Respiratory 16 Rate Blood Pressure 105/50 102/47 111/49 (mmHg) O2 Sat by Pulse 98 98 97 Oximetry 08/09/19 08/09/19 08/09/19 06:16 06:31 06:46 Temperature 99.1 F 99.1 F 99.1 F Pulse Rate 110 107 107 Respiratory Rate Blood Pressure 120/101 117/65 121/52 (mmHg) O2 Sat by Pulse 98 98 98 Oximetry 08/09/19 08/09/19 08/09/19 07:00 07:01 07:16 Temperature 99.1 F 99.1 F Pulse Rate 107 107 Respiratory 18 16 Rate Blood Pressure 111/65 117/60 (mmHg) O2 Sat by Pulse 98 92 Oximetry 08/09/19 08/09/19 08/09/19 07:31 07:45 08:00 Temperature 99.1 F 99.1 F 99.1 F Pulse Rate 105 106 106 Respiratory 18 Rate Blood Pressure 111/60 105/58 113/65 (mmHg) O2 Sat by Pulse 92 92 92 Oximetry 08/09/19 08/09/19 08/09/19 08:15 08:30 08:45 Temperature 99.1 F 99.1 F 99.1 F Pulse Rate 105 106 105 Respiratory Rate Blood Pressure 115/66 115/65 118/65 (mmHg) O2 Sat by Pulse 92 93 93 Oximetry 08/09/19 08/09/19 08/09/19 09:00 09:01 09:15 Temperature 99.3 F 99.3 F 99.3 F Pulse Rate 107 106 105 Respiratory 18 Rate Blood Pressure 108/63 120/61 (mmHg) O2 Sat by Pulse 93 93 94 Oximetry 08/09/19 08/09/19 08/09/19 09:30 09:45 10:00 Temperature 99.3 F 99.3 F 99.3 F Pulse Rate 106 105 105 Respiratory 18 Rate Blood Pressure 110/63 111/63 110/65 (mmHg) O2 Sat by Pulse 94 94 94 Oximetry 08/09/19 08/09/19 08/09/19 10:15 10:30 10:45 Temperature 99.3 F 99.3 F 99.3 F Pulse Rate 104 104 103 Respiratory Rate Blood Pressure 109/65 110/65 105/56 (mmHg) O2 Sat by Pulse 94 94 94 Oximetry 08/09/19 08/09/19 08/09/19 11:00 11:15 11:30 Temperature 99.3 F 99.5 F 99.5 F Pulse Rate 104 104 105 Respiratory 18 Rate Blood Pressure 108/63 110/59 106/61 (mmHg) O2 Sat by Pulse 94 93 92 Oximetry 08/09/19 08/09/19 08/09/19 11:46 12:00 12:01 Temperature 99.5 F 99.5 F 99.5 F Pulse Rate 105 103 104 Respiratory 18 Rate Blood Pressure 108/57 102/56 (mmHg) O2 Sat by Pulse 92 92 93 Oximetry Intake and Output Last 24 Hours 08/07/19 08/08/19 08/09/19 08/10/19 06:59 06:59 06:59 06:59 Intake Total 5106.3 Output Total 1010 665 Balance 4096.3 -665 Weight 275 lb Intake: IV Fluids 4398 Heparin 131 NS 2167 IVPB 378 ABX 378 Medicated IV 330.3 Levophed 187 propofol 143.3 Output: Reina 910 665 Residual 100 16 Fr Temperature Probe 100 O2/Vent: Infusions: NS @ 100, Propofol @ 40, levo @ 8 Medications: Albuterol/Ipratropium (Duoneb (Albuterol 2.5 Mg/Ipratropium 0.5 Mg)) 1 neb INH Q4H PRN PRN Reason: SOB/WHEEZING Chlorhexidine Gluconate (Peridex Mouth Wash 0.12%*) 15 ml TOPICAL Q4H [facility] Last Admin: 08/09/19 11:03 Dose: 15 ml Docusate Sodium (Colace Cap*) 200 mg PO BID PRN PRN Reason: CONSTIPATION Heparin Sodium (Porcine) (Heparin Vial(*)) 0 units IV .PER PROTOCOL [facility] Last Admin: 08/08/19 23:38 Dose: 4,000 units Hydrocortisone Sodium Succinate (Solu-Cortef*) 100 mg IV Q8H [facility] Last Admin: 08/09/19 08:52 Dose: 100 mg Heparin Sodium/Dextrose (Heparin Drip 25,000 Units(*)) 25,000 units in 500 mls @ 0 mls/hr IV PER RATE [facility]; Protocol Last Admin: 08/08/19 23:38 Dose: 20 mls/hr Sodium Chloride (Ns 0.9% 1000 Ml) 1,000 mls @ 100 mls/hr IV PER RATE [facility] Last Admin: 08/08/19 22:29 Dose: 100 mls/hr Norepinephrine Bitartrate (Levophed 16 Mcg/Ml Premix*) 4,000 mcg in 250 mls @ 0 mls/hr IV .PER PROTOCOL [facility]; Protocol Last Admin: 08/09/19 07:09 Dose: 30 mls/hr Propofol (Diprivan*) 100 mls @ 14.969 mls/hr IV .PER PROTOCOL [facility]; Protocol Last Admin: 08/09/19 10:58 Dose: 37.5 mls/hr Cefepime HCl 1 gm/ Sodium (Chloride) 50 mls @ 100 mls/hr IVPB Q12H [facility] Metronidazole/Sodium Chloride (Flagyl 500 Mg Ivpb*) 500 mg in 100 mls @ 100 mls /hr IVPB Q12H [facility] Levetiracetam (Keppra Iv Premix*) 1,000 mg in 100 mls @ 400 mls/hr IVPB ONCE ONE Stop: 08/09/19 13:03 Levetiracetam (Keppra Iv Premix*) 1,000 mg in 100 mls @ 400 mls/hr IVPB Q12H [facility] Lactulose (Lactulose*) 30 ml NG TUBE Q8H [facility] Last Admin: 08/09/19 08:52 Dose: 30 ml Mometasone Furoate/Formoterol Fumar (Dulera 200/5 Mdi*) 2 puff INH BID [facility]; Protocol Last Admin: 08/09/19 07:15 Dose: Not Given Pantoprazole Sodium (Protonix Iv*) 40 mg IV Q24H [facility] Last Admin: 08/08/19 23:33 Dose: 40 mg Pharmacy Profile Note (Vancomycin Trough Check) 1 note FOLLOW UP 1000 ONE Stop: 08/11/19 10:01 Polyethylene Glycol/Electrolytes (Miralax*) 17 gm PO DAILY PRN PRN Reason: CONSTIPATION Physical Exam: Constitutional: Intubated, sedated, no apparent distress Head: normocephalic, atraumatic Eyes: no pallor, no icterus ENT: moist mucous membranes Neck: soft, supple, no jvd, no stridor CVS: tachycardic, regular, no murmur Chest/Resp: bilateral air entry, no rhales, no wheeze, no rhonchi, no acc muscle use. Vented. Abdomen/GI: soft, nontender, nondistended, BS hypoactive Ext/Msk: warm, pulses+, generalized edema Skin: intact, warm Neuro: Sedated and intubated. Sedation not paused for exam. She does not open her eyes or follow commands. Mild withdrawal to noxious stimuli in all extremities. + cough, gag, corneal and pupillary reflex. Pupils 5mm equal and reactive Psych: unable to assess at this time Labs: Laboratory Results - last 24 hr 08/08/19 08/08/19 08/08/19 19:12 19:30 19:30 WBC RBC Hgb Hct MCV MCH MCHC RDW Plt Count MPV Neut % (Auto) Lymph % (Auto) [place] % (Auto) Eos % (Auto) Baso % (Auto) Absolute Neuts (auto) Absolute Lymphs (auto) Absolute Monos (auto) Absolute Eos (auto) Absolute Basos (auto) Absolute Nucleated RBC Nucleated RBC % INR (Anticoag Therapy) APTT Patient Temperature ABG pH ABG pCO2 ABG pO2 ABG HCO3 ABG O2 Saturation ABG Base Excess VBG pH VBG pCO2 VBG pO2 VBG HCO3 VBG O2 Saturation VBG Base Excess Respiration Rate O2 Delivery Device Ventilator Type Vent Mode FiO2 Inspiratory Time PEEP Pressure Support Pressure Control EPAP IPAP BiPAP Sodium Potassium Chloride Carbon Dioxide Anion Gap BUN Creatinine Est GFR ( Amer) Est GFR (Non-Af Amer) BUN/Creatinine Ratio Glucose POC Glucose (mg/dL) 157 H Lactic Acid Calcium Phosphorus Magnesium Total Bilirubin AST ALT Alkaline Phosphatase Ammonia Total Creatine Kinase CK-MB (CK-2) Troponin I Total Protein Albumin Globulin Albumin/Globulin Ratio Urine Color Yellow Urine Appearance Clear Urine pH 5.0 Ur Specific [place] 1.010 Urine Protein Negative Urine Ketones Negative Urine Blood Negative Urine Nitrate Negative Urine Bilirubin Negative Urine Urobilinogen Positive A Ur Leukocyte Esterase Negative Urine Glucose Negative Salicylates Urine Opiates Screen Presumptive positive A Ur Barbiturates Screen None detected Ur Phencyclidine Scrn None detected Ur Amphetamines Screen None detected U Benzodiazepines Scrn Presumptive positive A Urine Cocaine Screen None detected U Cannabinoids Screen None detected Serum Alcohol Influenza A (Rapid) Influenza B (Rapid) Blood Type Antibody Screen 08/08/19 08/08/19 08/08/19 19:31 19:31 19:31 WBC 12.9 H RBC 3.61 L Hgb 8.3 L Hct 28 L MCV 78 L MCH 23 L MCHC 29 L RDW 22 H Plt Count 166 MPV 8.4 Neut % (Auto) 78.8 Lymph % (Auto) 10.9 [place] % (Auto) 8.6 Eos % (Auto) 0.1 Baso % (Auto) 1.6 Absolute Neuts (auto) 10.2 H Absolute Lymphs (auto) 1.4 Absolute Monos (auto) 1.1 H Absolute Eos (auto) 0.0 Absolute Basos (auto) 0.2 Absolute Nucleated RBC 0.0 Nucleated RBC % 0.1 INR (Anticoag Therapy) 2.17 H APTT 46.5 H Patient Temperature ABG pH ABG pCO2 ABG pO2 ABG HCO3 ABG O2 Saturation ABG Base Excess VBG pH VBG pCO2 VBG pO2 VBG HCO3 VBG O2 Saturation VBG Base Excess Respiration Rate O2 Delivery Device Ventilator Type Vent Mode FiO2 Inspiratory Time PEEP Pressure Support Pressure Control EPAP IPAP BiPAP Sodium 138 Potassium 4.1 Chloride 108 Carbon Dioxide 21 L Anion Gap 9 BUN 20 Creatinine 1.87 H Est GFR ( Amer) 35.9 Est GFR (Non-Af Amer) 29.7 BUN/Creatinine Ratio 10.7 Glucose 145 H POC Glucose (mg/dL) Lactic Acid Calcium 7.9 L Phosphorus Magnesium Total Bilirubin 0.80 AST 57 H ALT 23 Alkaline Phosphatase 147 H Ammonia Total Creatine Kinase 1217 H CK-MB (CK-2) Troponin I 0.53 H* Total Protein 6.5 Albumin 3.4 Globulin 3.1 Albumin/Globulin Ratio 1.1 Urine Color Urine Appearance Urine pH Ur Specific [place] Urine Protein Urine Ketones Urine Blood Urine Nitrate Urine Bilirubin Urine Urobilinogen Ur Leukocyte Esterase Urine Glucose Salicylates < 2.50 Urine Opiates Screen Ur Barbiturates Screen Ur Phencyclidine Scrn Ur Amphetamines Screen U Benzodiazepines Scrn Urine Cocaine Screen U Cannabinoids Screen Serum Alcohol < 10 Influenza A (Rapid) Influenza B (Rapid) Blood Type Antibody Screen 08/08/19 08/08/19 08/08/19 19:31 20:14 20:38 WBC RBC Hgb Hct MCV MCH MCHC RDW Plt Count MPV Neut % (Auto) Lymph % (Auto) [place] % (Auto) Eos % (Auto) Baso % (Auto) Absolute Neuts (auto) Absolute Lymphs (auto) Absolute Monos (auto) Absolute Eos (auto) Absolute Basos (auto) Absolute Nucleated RBC Nucleated RBC % INR (Anticoag Therapy) APTT Patient Temperature ABG pH ABG pCO2 ABG pO2 ABG HCO3 ABG O2 Saturation ABG Base Excess VBG pH 7.19 L VBG pCO2 50 VBG pO2 95.0 H VBG HCO3 17.7 L VBG O2 Saturation 99.0 H VBG Base Excess -9.2 L Respiration Rate O2 Delivery Device Ventilator Type Vent Mode FiO2 Inspiratory Time PEEP Pressure Support Pressure Control EPAP IPAP BiPAP Sodium Potassium Chloride Carbon Dioxide Anion Gap BUN Creatinine Est GFR ( Amer) Est GFR (Non-Af Amer) BUN/Creatinine Ratio Glucose POC Glucose (mg/dL) Lactic Acid 1.4 Calcium Phosphorus Magnesium Total Bilirubin AST ALT Alkaline Phosphatase Ammonia Total Creatine Kinase CK-MB (CK-2) Troponin I Total Protein Albumin Globulin Albumin/Globulin Ratio Urine Color Urine Appearance Urine pH Ur Specific [place] Urine Protein Urine Ketones Urine Blood Urine Nitrate Urine Bilirubin Urine Urobilinogen Ur Leukocyte Esterase Urine Glucose Salicylates Urine Opiates Screen Ur Barbiturates Screen Ur Phencyclidine Scrn Ur Amphetamines Screen U Benzodiazepines Scrn Urine Cocaine Screen U Cannabinoids Screen Serum Alcohol Influenza A (Rapid) Negative Influenza B (Rapid) Negative Blood Type Antibody Screen 08/08/19 08/08/19 08/08/19 21:40 23:28 23:28 WBC RBC Hgb Hct MCV MCH MCHC RDW Plt Count MPV Neut % (Auto) Lymph % (Auto) [place] % (Auto) Eos % (Auto) Baso % (Auto) Absolute Neuts (auto) Absolute Lymphs (auto) Absolute Monos (auto) Absolute Eos (auto) Absolute Basos (auto) Absolute Nucleated RBC Nucleated RBC % INR (Anticoag Therapy) APTT Patient Temperature ABG pH 7.26 L ABG pCO2 49 H ABG pO2 79 L ABG HCO3 20.7 ABG O2 Saturation 96.7 ABG Base Excess -5.3 L VBG pH VBG pCO2 VBG pO2 VBG HCO3 VBG O2 Saturation VBG Base Excess Respiration Rate O2 Delivery Device Ventilator Type Vent Mode FiO2 Inspiratory Time PEEP Pressure Support Pressure Control EPAP IPAP BiPAP Sodium Potassium Chloride Carbon Dioxide Anion Gap BUN Creatinine Est GFR ( Amer) Est GFR (Non-Af Amer) BUN/Creatinine Ratio Glucose POC Glucose (mg/dL) Lactic Acid 0.8 Calcium Phosphorus Magnesium Total Bilirubin AST ALT Alkaline Phosphatase Ammonia Total Creatine Kinase CK-MB (CK-2) Troponin I 0.47 H* Total Protein Albumin Globulin Albumin/Globulin Ratio Urine Color Urine Appearance Urine pH Ur Specific [place] Urine Protein Urine Ketones Urine Blood Urine Nitrate Urine Bilirubin Urine Urobilinogen Ur Leukocyte Esterase Urine Glucose Salicylates Urine Opiates Screen Ur Barbiturates Screen Ur Phencyclidine Scrn Ur Amphetamines Screen U Benzodiazepines Scrn Urine Cocaine Screen U Cannabinoids Screen Serum Alcohol Influenza A (Rapid) Influenza B (Rapid) Blood Type Antibody Screen 08/09/19 08/09/19 08/09/19 00:23 06:00 06:00 WBC 18.4 H RBC 3.69 L Hgb 8.5 L Hct 29 L MCV 79 L MCH 23 L MCHC 29 L RDW 21 H Plt Count 174 MPV 8.3 Neut % (Auto) 90.7 Lymph % (Auto) 4.5 [place] % (Auto) 4.0 Eos % (Auto) 0.1 Baso % (Auto) 0.7 Absolute Neuts (auto) 16.7 H Absolute Lymphs (auto) 0.8 L Absolute Monos (auto) 0.7 Absolute Eos (auto) 0.0 Absolute Basos (auto) 0.1 Absolute Nucleated RBC 0.0 Nucleated RBC % 0.2 INR (Anticoag Therapy) 1.62 H APTT 80.6 H Patient Temperature ABG pH ABG pCO2 ABG pO2 ABG HCO3 ABG O2 Saturation ABG Base Excess VBG pH VBG pCO2 VBG pO2 VBG HCO3 VBG O2 Saturation VBG Base Excess Respiration Rate O2 Delivery Device Ventilator Type Vent Mode FiO2 Inspiratory Time PEEP Pressure Support Pressure Control EPAP IPAP BiPAP Sodium Potassium Chloride Carbon Dioxide Anion Gap BUN Creatinine Est GFR ( Amer) Est GFR (Non-Af Amer) BUN/Creatinine Ratio Glucose POC Glucose (mg/dL) Lactic Acid Calcium Phosphorus Magnesium Total Bilirubin AST ALT Alkaline Phosphatase Ammonia 117 H Total Creatine Kinase CK-MB (CK-2) Troponin I Total Protein Albumin Globulin Albumin/Globulin Ratio Urine Color Urine Appearance Urine pH Ur Specific [place] Urine Protein Urine Ketones Urine Blood Urine Nitrate Urine Bilirubin Urine Urobilinogen Ur Leukocyte Esterase Urine Glucose Salicylates Urine Opiates Screen Ur Barbiturates Screen Ur Phencyclidine Scrn Ur Amphetamines Screen U Benzodiazepines Scrn Urine Cocaine Screen U Cannabinoids Screen Serum Alcohol Influenza A (Rapid) Influenza B (Rapid) Blood Type Antibody Screen 08/09/19 08/09/19 08/09/19 06:00 06:00 06:00 WBC RBC Hgb Hct MCV MCH MCHC RDW Plt Count MPV Neut % (Auto) Lymph % (Auto) [place] % (Auto) Eos % (Auto) Baso % (Auto) Absolute Neuts (auto) Absolute Lymphs (auto) Absolute Monos (auto) Absolute Eos (auto) Absolute Basos (auto) Absolute Nucleated RBC Nucleated RBC % INR (Anticoag Therapy) APTT Patient Temperature ABG pH ABG pCO2 ABG pO2 ABG HCO3 ABG O2 Saturation ABG Base Excess VBG pH VBG pCO2 VBG pO2 VBG HCO3 VBG O2 Saturation VBG Base Excess Respiration Rate O2 Delivery Device Ventilator Type Vent Mode FiO2 Inspiratory Time PEEP Pressure Support Pressure Control EPAP IPAP BiPAP Sodium 140 Potassium 3.9 Chloride 112 H Carbon Dioxide 20 L Anion Gap 8 BUN 16 Creatinine 0.95 Est GFR ( Amer) 78.4 Est GFR (Non-Af Amer) 64.8 BUN/Creatinine Ratio 16.8 Glucose 198 H POC Glucose (mg/dL) Lactic Acid 0.7 Calcium 7.7 L Phosphorus 2.3 L Magnesium 2.3 Total Bilirubin 0.90 AST 118 H ALT 48 Alkaline Phosphatase 138 H Ammonia Total Creatine Kinase CK-MB (CK-2) 5.5 Troponin I 0.31 H* Total Protein 6.6 Albumin 3.3 Globulin 3.3 Albumin/Globulin Ratio 1.0 Urine Color Urine Appearance Urine pH Ur Specific [place] Urine Protein Urine Ketones Urine Blood Urine Nitrate Urine Bilirubin Urine Urobilinogen Ur Leukocyte Esterase Urine Glucose Salicylates Urine Opiates Screen Ur Barbiturates Screen Ur Phencyclidine Scrn Ur Amphetamines Screen U Benzodiazepines Scrn Urine Cocaine Screen U Cannabinoids Screen Serum Alcohol Influenza A (Rapid) Influenza B (Rapid) Blood Type O Positive Antibody Screen Negative 08/09/19 08/09/19 08/09/19 11:02 12:08 12:09 WBC RBC Hgb Hct MCV MCH MCHC RDW Plt Count MPV Neut % (Auto) Lymph % (Auto) [place] % (Auto) Eos % (Auto) Baso % (Auto) Absolute Neuts (auto) Absolute Lymphs (auto) Absolute Monos (auto) Absolute Eos (auto) Absolute Basos (auto) Absolute Nucleated RBC Nucleated RBC % INR (Anticoag Therapy) APTT 66.2 H Patient Temperature Not Reportable ABG pH 7.28 L ABG pCO2 46 H ABG pO2 85 ABG HCO3 20.9 ABG O2 Saturation 98.3 H ABG Base Excess -5.2 L VBG pH VBG pCO2 VBG pO2 VBG HCO3 VBG O2 Saturation VBG Base Excess Respiration Rate Not Reportable O2 Delivery Device Not Reportable Ventilator Type Not Reportable Vent Mode Not Reportable FiO2 Not Reportable Inspiratory Time Not Reportable PEEP Not Reportable Pressure Support Not Reportable Pressure Control Not Reportable EPAP Not Reportable IPAP Not Reportable BiPAP Not Reportable Sodium Potassium Chloride Carbon Dioxide Anion Gap BUN Creatinine Est GFR ( Amer) Est GFR (Non-Af Amer) BUN/Creatinine Ratio Glucose POC Glucose (mg/dL) Lactic Acid Calcium Phosphorus Magnesium Total Bilirubin AST ALT Alkaline Phosphatase Ammonia Total Creatine Kinase CK-MB (CK-2) Troponin I Total Protein Albumin Globulin Albumin/Globulin Ratio Urine Color Yellow Urine Appearance Clear Urine pH 5.0 Ur Specific [place] 1.018 Urine Protein Negative Urine Ketones Trace A Urine Blood Negative Urine Nitrate Negative Urine Bilirubin Negative Urine Urobilinogen Negative Ur Leukocyte Esterase Negative Urine Glucose Negative Salicylates Urine Opiates Screen Ur Barbiturates Screen Ur Phencyclidine Scrn Ur Amphetamines Screen U Benzodiazepines Scrn Urine Cocaine Screen U Cannabinoids Screen Serum Alcohol Influenza A (Rapid) Influenza B (Rapid) Blood Type Antibody Screen Imaging: Patient Name: JIMENEZ ALMONTE Medical Record#: [id number] Ordering Physician: Darrius Garcia MD Acct.#: [id number] : 1975 Age: 43 Sex: F Location: EMERGENCY DEPARTMENT Exam Date: 08/08/191858 ADM Status: REG ER Order Information: CT BRAIN WO Accession Number: [id number] CPT: 06337 PROCEDURE INFORMATION: Exam: CT Head Without Contrast Exam date and time: 08/08/2019 8:00 PM Age: 43 years old Clinical indication: Coma or unconsciousness; Patient HX: Breast CA with mets to brain liver and spine; Additional info: AMS TECHNIQUE: Imaging protocol: Computed tomography of the head without contrast. Radiation optimization: All CT scans at this facility use at least one of these dose optimization techniques: automated exposure control; mA and/or kV adjustment per patient size (includes targeted exams where dose is matched to clinical indication); or iterative reconstruction. COMPARISON: BRAIN WO CT BRAIN WO 08/07/2019 6:44 PM COMPARISON MORE: BRAIN WWO MRI BRAIN W/WO 07/06/2019 7:30:53 PM FINDINGS: Brain: No acute intracranial hemorrhage or extraaxial collection identified. No midline shift. Hoskins/white differentiation is maintained with no evidence of acute infarct. A 6 mm peripheral hypodensity is seen superiorly the posterior right frontal lobe on series 400, image 29, which could represent the small known metastatic brain lesion. Ventricles: Normal configuration. No hydrocephalus. Bones/joints: No acute fracture. Sinuses: Mild mucosal thickening in the left maxillary and bilateral ethmoid sinuses. No air-fluid levels. Mastoid air cells: No mastoid effusion. Soft tissues: Normal. IMPRESSION: 1. No acute intracranial findings or significant change since prior study. 2. A tiny peripheral hypodensity in the posterior right frontal lobe could represent the small known metastatic brain lesion, seen on recent MRI. No significant mass effect or midline shift. Patient Name: JIMENEZ ALMONTE Medical Record#: [id number] Ordering Physician: Bethany De Leon MD Acct.#: [id number] : 1975 Age: 43 Sex: F Location: [facility]ARE UNIT Exam Date: 08/09/19 0600 ADM Status: ADM IN Order Information: CHEST AP/PORT Accession Number: [id number] CPT: 48621 INDICATION: Intubated COMPARISON: August 08, 2019 chest radiograph TECHNIQUE: A portable view of the chest was obtained. FINDINGS: Overlying leads obscure the [id number]. An endotracheal tube tip terminates 3.5 cm above the carrie. A left chest wall Mediport is in place. An endotracheal tube courses through the [id number] into the left upper quadrant. There is similar perihilar predominant airspace opacification. Air bronchograms project through the cardiac silhouette. There is no pleural effusion. The cardiomediastinal silhouette is within normal limits. The upper abdominal contents are normal. Osseous structures are unremarkable. IMPRESSION: 1. Similar perihilar predominant airspace opacification with retrocardiac air bronchograms (marker of consolidation). Infiltrate is not excluded. 2. Support devices as expected. 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 Presents initially on 08/07 with complaints of headache, blurred vision and difficulty walking. She was given IVF and pain medication and discharged home. She was subsequently found unresponsive on her couch on 08/08. She was found to have vomit in her throat. GCS 6 on arrival and was intubated for airway protection. Temp 102 on arrival. Started treatment for sepsis with IVF and antibiotics. Home Xarelto discontinued and heparin drip was started. - Left sided PNA - Acute respiratory failure - Sepsis - Elevated liver enzymes - Brain lesion - Metastatic breast cancer to brain, liver, spine - R/o seizures Plan: Neuro- - AMS: unknown etiology at this point. Differential diagnoses include seizures, polypharmacy, sepsis, known history of pseudotumor cerebri. Consider LP if continues to have AMS. - CT brain 08/08 redemonstrated right posterior frontal lobe lesion, keeping with known enhancing lesion seen on MRI on 07/06/19. - Will obtain EEG, load with keppra 1G and start 750mg q12hrs. - Will obtain repeat MRI brain w/wo contrast as well as MRA and MRV to r/o sinus venous thrombosis. Will premedicate with solumedrol and benadryl. Plan for MRI in AM @ 0700. - Propofol for sedation, goal RASS -4. -Delirium prec; avoid BDZ CVS- - Hypotensive: continues to require small amount of levophed. -Titrate Pressors to Maintain MAP>65 - Tachycardia: most likely infection related, continue to monitor and treat for HR sustained above 120 Resp- - Intubated for airway protection, acute respiratory failure. Will increased PEEP to 8 and RR to 18. - ABG 7.28/46/85/20.9. Respiratory acidosis. -Wean Fio2 to keep sat>92% -Bronchodilators PRN, Aspiration prec, Pulmonary Toilet -VAP bundle - Chest xray shows cardiomegaly, probably pulmonary edema and left sided infiltrate concerning for pneumonia ID- - Left sided pneumonia: aspiration vs CAP - Obtained CT chest/abdomen/pelvis: hepatosplenomegaly, s/p cholecystecomy, dependent consolidation in the lower lobes of the lungs. - Will change antibiotics to cefepime 1G q12hr and flagyl 500mg q12hr to cover for aspiration pneumonia - Urine negative for legionella and S.pneumo - Cultures pending GI- -Nutrition: NPO. Start tube feed per nutrition recommendations -GI prophylaxis - Liver enzymes are elevated, AST 118, ALT 48, alk phos 138, ammonia 117 - Continue lactulose 30g q8hr and monitor ammonia daily. 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 Will continue Endo-Maintain BG<200, insulin protocol as needed Musculsk- pressure ulcer prophylaxis. Bedrest. Wounds- none Nutrition- NPO, started tube feed DVT prophylaxis: heparin drip and SCDs GI prophylaxis: protonix Reina Catheter: continue Disposition: Patient requires Critical Care/ICU for vasopressors, intubated/ vented, sepsis, possible seizures Patient clinical status: Critical Code Status: Full Total Critical Care time is 60 minutes <Jarret Maloney - Last Filed: 08/10/19 14:18> Progress Note - Progress Note Note: Attending Note Agree with above note. Intubated for airway protection, possible aspiration in ER. Unclear if seizure possibly caused mental status change and likely a secondary aspiration pneumonia. Plan for MRI brain, sedation holding and possible repeat LP if meningo-enceph is suspected. discussed with radiology and bout need for premed with steroids for MRA/MRI with contrast. She did wake on sedation hold in afternoon and followed commands. Maintain sedation today, cont IV abx . Plan for keppra load as discussed with neurology. case discussed with oncology also. Jarret Maloney MD steaming cabinet tender
[2019-08-09] MEDS ORDERED: levETIRAcetam 1000MG IVPREMIX* 1,000 MG/100 ML BAG IVPB SCH (13:00)
[2019-08-09] MEDS ORDERED: Cefepime ADVAN(*) 1 GM in NS 0.9% 50 ML* 50 ML IVPB SCH (13:00)
--- NOTE | 2019-08-09 13:11 | PN ---
Progress Note - Progress Note Date of Service: 08/09/19 SOAP: Subjective: [This is a 43 yo female with metastatic HER2+ breast cancer well known to the oncology group who has been admitted on 2 other occasions in the last month for intractable VÁZQUEZ and fevers. No infectious source has been identified on prior occasions. CSF has been negative for malignancy or obvious infectious source on 2 occasions. Opening pressures were elevated to [id number] and she was started on diamox per neurology recommendations for diagnosis for pseudotumor cerebrii. She returned to the ER yesterday with c/o persistent VÁZQUEZ. CT brain showed no acute change and her pain was controlled with dilaudid. She was subsequently discharged home. She was then found unresponsive be a family member and transported to the ER by EMS. Exam revealed vomitus in her mouth. She was found to be febrile with a leukocytosis. She was hypotensive and unable to maintain her airway so was subsequently intubated and started on pressor support with broad spectrum antibiotics. She has a infiltrate noted on CXR. Overnight, pressor support and sedation have been weaned. No further fevers since admission. She remains on ventilator support.] Objective: [ Vital Signs: Temp Pulse Resp BP Pulse Ox 99.5 F 104 18 102/56 93 08/09/19 12:01 08/09/19 12:01 08/09/19 12:00 08/09/19 12:01 08/09/19 12:01 Albuterol/Ipratropium (Duoneb (Albuterol 2.5 Mg/Ipratropium 0.5 Mg)) 1 neb INH Q4H PRN PRN Reason: SOB/WHEEZING Chlorhexidine Gluconate (Peridex Mouth Wash 0.12%*) 15 ml TOPICAL Q4H [facility] Last Admin: 08/09/19 11:03 Dose: 15 ml Docusate Sodium (Colace Cap*) 200 mg PO BID PRN PRN Reason: CONSTIPATION Heparin Sodium (Porcine) (Heparin Vial(*)) 0 units IV .PER PROTOCOL [facility] Last Admin: 08/08/19 23:38 Dose: 4,000 units Hydrocortisone Sodium Succinate (Solu-Cortef*) 100 mg IV Q8H [facility] Last Admin: 08/09/19 08:52 Dose: 100 mg Heparin Sodium/Dextrose (Heparin Drip 25,000 Units(*)) 25,000 units in 500 mls @ 0 mls/hr IV PER RATE [facility]; Protocol Last Admin: 08/08/19 23:38 Dose: 20 mls/hr Sodium Chloride (Ns 0.9% 1000 Ml) 1,000 mls @ 100 mls/hr IV PER RATE [facility] Last Admin: 08/08/19 22:29 Dose: 100 mls/hr Norepinephrine Bitartrate (Levophed 16 Mcg/Ml Premix*) 4,000 mcg in 250 mls @ 0 mls/hr IV .PER PROTOCOL [facility]; Protocol Last Admin: 08/09/19 07:09 Dose: 30 mls/hr Propofol (Diprivan*) 100 mls @ 14.969 mls/hr IV .PER PROTOCOL [facility]; Protocol Last Admin: 08/09/19 10:58 Dose: 37.5 mls/hr Metronidazole/Sodium Chloride (Flagyl 500 Mg Ivpb*) 500 mg in 100 mls @ 100 mls /hr IVPB Q12H [facility] Levetiracetam (Keppra Iv Premix*) 1,000 mg in 100 mls @ 400 mls/hr IVPB Q12H [facility] Cefepime HCl (Maxipime 1 Gm In Dextrose Duplex (*)) 1 gm in 50 mls @ 100 mls/ hr IV Q12H [facility] Lactulose (Lactulose*) 30 ml NG TUBE Q8H [facility] Last Admin: 08/09/19 08:52 Dose: 30 ml Mometasone Furoate/Formoterol Fumar (Dulera 200/5 Mdi*) 2 puff INH BID [facility]; Protocol Last Admin: 08/09/19 07:15 Dose: Not Given Pantoprazole Sodium (Protonix Iv*) 40 mg IV Q24H [facility] Last Admin: 08/08/19 23:33 Dose: 40 mg Pharmacy Profile Note (Vancomycin Trough Check) 1 note FOLLOW UP 1000 ONE Stop: 08/11/19 10:01 Polyethylene Glycol/Electrolytes (Miralax*) 17 gm PO DAILY PRN PRN Reason: CONSTIPATION Laboratory Results - last 24 hr 08/08/19 08/08/19 08/08/19 19:12 19:30 19:30 WBC RBC Hgb Hct MCV MCH MCHC RDW Plt Count MPV Neut % (Auto) Lymph % (Auto) [place] % (Auto) Eos % (Auto) Baso % (Auto) Absolute Neuts (auto) Absolute Lymphs (auto) Absolute Monos (auto) Absolute Eos (auto) Absolute Basos (auto) Absolute Nucleated RBC Nucleated RBC % INR (Anticoag Therapy) APTT Patient Temperature ABG pH ABG pCO2 ABG pO2 ABG HCO3 ABG O2 Saturation ABG Base Excess VBG pH VBG pCO2 VBG pO2 VBG HCO3 VBG O2 Saturation VBG Base Excess Respiration Rate O2 Delivery Device Ventilator Type Vent Mode FiO2 Inspiratory Time PEEP Pressure Support Pressure Control EPAP IPAP BiPAP Sodium Potassium Chloride Carbon Dioxide Anion Gap BUN Creatinine Est GFR ( Amer) Est GFR (Non-Af Amer) BUN/Creatinine Ratio Glucose POC Glucose (mg/dL) 157 H Lactic Acid Calcium Phosphorus Magnesium Total Bilirubin AST ALT Alkaline Phosphatase Ammonia Total Creatine Kinase CK-MB (CK-2) Troponin I Total Protein Albumin Globulin Albumin/Globulin Ratio Urine Color Yellow Urine Appearance Clear Urine pH 5.0 Ur Specific [place] 1.010 Urine Protein Negative Urine Ketones Negative Urine Blood Negative Urine Nitrate Negative Urine Bilirubin Negative Urine Urobilinogen Positive A Ur Leukocyte Esterase Negative Urine Glucose Negative Salicylates Urine Opiates Screen Presumptive positive A Ur Barbiturates Screen None detected Ur Phencyclidine Scrn None detected Ur Amphetamines Screen None detected U Benzodiazepines Scrn Presumptive positive A Urine Cocaine Screen None detected U Cannabinoids Screen None detected Serum Alcohol Influenza A (Rapid) Influenza B (Rapid) Blood Type Antibody Screen 08/08/19 08/08/19 08/08/19 19:31 19:31 19:31 WBC 12.9 H RBC 3.61 L Hgb 8.3 L Hct 28 L MCV 78 L MCH 23 L MCHC 29 L RDW 22 H Plt Count 166 MPV 8.4 Neut % (Auto) 78.8 Lymph % (Auto) 10.9 [place] % (Auto) 8.6 Eos % (Auto) 0.1 Baso % (Auto) 1.6 Absolute Neuts (auto) 10.2 H Absolute Lymphs (auto) 1.4 Absolute Monos (auto) 1.1 H Absolute Eos (auto) 0.0 Absolute Basos (auto) 0.2 Absolute Nucleated RBC 0.0 Nucleated RBC % 0.1 INR (Anticoag Therapy) 2.17 H APTT 46.5 H Patient Temperature ABG pH ABG pCO2 ABG pO2 ABG HCO3 ABG O2 Saturation ABG Base Excess VBG pH VBG pCO2 VBG pO2 VBG HCO3 VBG O2 Saturation VBG Base Excess Respiration Rate O2 Delivery Device Ventilator Type Vent Mode FiO2 Inspiratory Time PEEP Pressure Support Pressure Control EPAP IPAP BiPAP Sodium 138 Potassium 4.1 Chloride 108 Carbon Dioxide 21 L Anion Gap 9 BUN 20 Creatinine 1.87 H Est GFR ( Amer) 35.9 Est GFR (Non-Af Amer) 29.7 BUN/Creatinine Ratio 10.7 Glucose 145 H POC Glucose (mg/dL) Lactic Acid Calcium 7.9 L Phosphorus Magnesium Total Bilirubin 0.80 AST 57 H ALT 23 Alkaline Phosphatase 147 H Ammonia Total Creatine Kinase 1217 H CK-MB (CK-2) Troponin I 0.53 H* Total Protein 6.5 Albumin 3.4 Globulin 3.1 Albumin/Globulin Ratio 1.1 Urine Color Urine Appearance Urine pH Ur Specific [place] Urine Protein Urine Ketones Urine Blood Urine Nitrate Urine Bilirubin Urine Urobilinogen Ur Leukocyte Esterase Urine Glucose Salicylates < 2.50 Urine Opiates Screen Ur Barbiturates Screen Ur Phencyclidine Scrn Ur Amphetamines Screen U Benzodiazepines Scrn Urine Cocaine Screen U Cannabinoids Screen Serum Alcohol < 10 Influenza A (Rapid) Influenza B (Rapid) Blood Type Antibody Screen 08/08/19 08/08/19 08/08/19 19:31 20:14 20:38 WBC RBC Hgb Hct MCV MCH MCHC RDW Plt Count MPV Neut % (Auto) Lymph % (Auto) [place] % (Auto) Eos % (Auto) Baso % (Auto) Absolute Neuts (auto) Absolute Lymphs (auto) Absolute Monos (auto) Absolute Eos (auto) Absolute Basos (auto) Absolute Nucleated RBC Nucleated RBC % INR (Anticoag Therapy) APTT Patient Temperature ABG pH ABG pCO2 ABG pO2 ABG HCO3 ABG O2 Saturation ABG Base Excess VBG pH 7.19 L VBG pCO2 50 VBG pO2 95.0 H VBG HCO3 17.7 L VBG O2 Saturation 99.0 H VBG Base Excess -9.2 L Respiration Rate O2 Delivery Device Ventilator Type Vent Mode FiO2 Inspiratory Time PEEP Pressure Support Pressure Control EPAP IPAP BiPAP Sodium Potassium Chloride Carbon Dioxide Anion Gap BUN Creatinine Est GFR ( Amer) Est GFR (Non-Af Amer) BUN/Creatinine Ratio Glucose POC Glucose (mg/dL) Lactic Acid 1.4 Calcium Phosphorus Magnesium Total Bilirubin AST ALT Alkaline Phosphatase Ammonia Total Creatine Kinase CK-MB (CK-2) Troponin I Total Protein Albumin Globulin Albumin/Globulin Ratio Urine Color Urine Appearance Urine pH Ur Specific [place] Urine Protein Urine Ketones Urine Blood Urine Nitrate Urine Bilirubin Urine Urobilinogen Ur Leukocyte Esterase Urine Glucose Salicylates Urine Opiates Screen Ur Barbiturates Screen Ur Phencyclidine Scrn Ur Amphetamines Screen U Benzodiazepines Scrn Urine Cocaine Screen U Cannabinoids Screen Serum Alcohol Influenza A (Rapid) Negative Influenza B (Rapid) Negative Blood Type Antibody Screen 08/08/19 08/08/19 08/08/19 21:40 23:28 23:28 WBC RBC Hgb Hct MCV MCH MCHC RDW Plt Count MPV Neut % (Auto) Lymph % (Auto) [place] % (Auto) Eos % (Auto) Baso % (Auto) Absolute Neuts (auto) Absolute Lymphs (auto) Absolute Monos (auto) Absolute Eos (auto) Absolute Basos (auto) Absolute Nucleated RBC Nucleated RBC % INR (Anticoag Therapy) APTT Patient Temperature ABG pH 7.26 L ABG pCO2 49 H ABG pO2 79 L ABG HCO3 20.7 ABG O2 Saturation 96.7 ABG Base Excess -5.3 L VBG pH VBG pCO2 VBG pO2 VBG HCO3 VBG O2 Saturation VBG Base Excess Respiration Rate O2 Delivery Device Ventilator Type Vent Mode FiO2 Inspiratory Time PEEP Pressure Support Pressure Control EPAP IPAP BiPAP Sodium Potassium Chloride Carbon Dioxide Anion Gap BUN Creatinine Est GFR ( Amer) Est GFR (Non-Af Amer) BUN/Creatinine Ratio Glucose POC Glucose (mg/dL) Lactic Acid 0.8 Calcium Phosphorus Magnesium Total Bilirubin AST ALT Alkaline Phosphatase Ammonia Total Creatine Kinase CK-MB (CK-2) Troponin I 0.47 H* Total Protein Albumin Globulin Albumin/Globulin Ratio Urine Color Urine Appearance Urine pH Ur Specific [place] Urine Protein Urine Ketones Urine Blood Urine Nitrate Urine Bilirubin Urine Urobilinogen Ur Leukocyte Esterase Urine Glucose Salicylates Urine Opiates Screen Ur Barbiturates Screen Ur Phencyclidine Scrn Ur Amphetamines Screen U Benzodiazepines Scrn Urine Cocaine Screen U Cannabinoids Screen Serum Alcohol Influenza A (Rapid) Influenza B (Rapid) Blood Type Antibody Screen 08/09/19 08/09/19 08/09/19 00:23 06:00 06:00 WBC 18.4 H RBC 3.69 L Hgb 8.5 L Hct 29 L MCV 79 L MCH 23 L MCHC 29 L RDW 21 H Plt Count 174 MPV 8.3 Neut % (Auto) 90.7 Lymph % (Auto) 4.5 [place] % (Auto) 4.0 Eos % (Auto) 0.1 Baso % (Auto) 0.7 Absolute Neuts (auto) 16.7 H Absolute Lymphs (auto) 0.8 L Absolute Monos (auto) 0.7 Absolute Eos (auto) 0.0 Absolute Basos (auto) 0.1 Absolute Nucleated RBC 0.0 Nucleated RBC % 0.2 INR (Anticoag Therapy) 1.62 H APTT 80.6 H Patient Temperature ABG pH ABG pCO2 ABG pO2 ABG HCO3 ABG O2 Saturation ABG Base Excess VBG pH VBG pCO2 VBG pO2 VBG HCO3 VBG O2 Saturation VBG Base Excess Respiration Rate O2 Delivery Device Ventilator Type Vent Mode FiO2 Inspiratory Time PEEP Pressure Support Pressure Control EPAP IPAP BiPAP Sodium Potassium Chloride Carbon Dioxide Anion Gap BUN Creatinine Est GFR ( Amer) Est GFR (Non-Af Amer) BUN/Creatinine Ratio Glucose POC Glucose (mg/dL) Lactic Acid Calcium Phosphorus Magnesium Total Bilirubin AST ALT Alkaline Phosphatase Ammonia 117 H Total Creatine Kinase CK-MB (CK-2) Troponin I Total Protein Albumin Globulin Albumin/Globulin Ratio Urine Color Urine Appearance Urine pH Ur Specific [place] Urine Protein Urine Ketones Urine Blood Urine Nitrate Urine Bilirubin Urine Urobilinogen Ur Leukocyte Esterase Urine Glucose Salicylates Urine Opiates Screen Ur Barbiturates Screen Ur Phencyclidine Scrn Ur Amphetamines Screen U Benzodiazepines Scrn Urine Cocaine Screen U Cannabinoids Screen Serum Alcohol Influenza A (Rapid) Influenza B (Rapid) Blood Type Antibody Screen 08/09/19 08/09/19 08/09/19 06:00 06:00 06:00 WBC RBC Hgb Hct MCV MCH MCHC RDW Plt Count MPV Neut % (Auto) Lymph % (Auto) [place] % (Auto) Eos % (Auto) Baso % (Auto) Absolute Neuts (auto) Absolute Lymphs (auto) Absolute Monos (auto) Absolute Eos (auto) Absolute Basos (auto) Absolute Nucleated RBC Nucleated RBC % INR (Anticoag Therapy) APTT Patient Temperature ABG pH ABG pCO2 ABG pO2 ABG HCO3 ABG O2 Saturation ABG Base Excess VBG pH VBG pCO2 VBG pO2 VBG HCO3 VBG O2 Saturation VBG Base Excess Respiration Rate O2 Delivery Device Ventilator Type Vent Mode FiO2 Inspiratory Time PEEP Pressure Support Pressure Control EPAP IPAP BiPAP Sodium 140 Potassium 3.9 Chloride 112 H Carbon Dioxide 20 L Anion Gap 8 BUN 16 Creatinine 0.95 Est GFR ( Amer) 78.4 Est GFR (Non-Af Amer) 64.8 BUN/Creatinine Ratio 16.8 Glucose 198 H POC Glucose (mg/dL) Lactic Acid 0.7 Calcium 7.7 L Phosphorus 2.3 L Magnesium 2.3 Total Bilirubin 0.90 AST 118 H ALT 48 Alkaline Phosphatase 138 H Ammonia Total Creatine Kinase CK-MB (CK-2) 5.5 Troponin I 0.31 H* Total Protein 6.6 Albumin 3.3 Globulin 3.3 Albumin/Globulin Ratio 1.0 Urine Color Urine Appearance Urine pH Ur Specific [place] Urine Protein Urine Ketones Urine Blood Urine Nitrate Urine Bilirubin Urine Urobilinogen Ur Leukocyte Esterase Urine Glucose Salicylates Urine Opiates Screen Ur Barbiturates Screen Ur Phencyclidine Scrn Ur Amphetamines Screen U Benzodiazepines Scrn Urine Cocaine Screen U Cannabinoids Screen Serum Alcohol Influenza A (Rapid) Influenza B (Rapid) Blood Type O Positive Antibody Screen Negative 08/09/19 08/09/19 08/09/19 11:02 12:08 12:09 WBC RBC Hgb Hct MCV MCH MCHC RDW Plt Count MPV Neut % (Auto) Lymph % (Auto) [place] % (Auto) Eos % (Auto) Baso % (Auto) Absolute Neuts (auto) Absolute Lymphs (auto) Absolute Monos (auto) Absolute Eos (auto) Absolute Basos (auto) Absolute Nucleated RBC Nucleated RBC % INR (Anticoag Therapy) APTT 66.2 H Patient Temperature Not Reportable ABG pH 7.28 L ABG pCO2 46 H ABG pO2 85 ABG HCO3 20.9 ABG O2 Saturation 98.3 H ABG Base Excess -5.2 L VBG pH VBG pCO2 VBG pO2 VBG HCO3 VBG O2 Saturation VBG Base Excess Respiration Rate Not Reportable O2 Delivery Device Not Reportable Ventilator Type Not Reportable Vent Mode Not Reportable FiO2 Not Reportable Inspiratory Time Not Reportable PEEP Not Reportable Pressure Support Not Reportable Pressure Control Not Reportable EPAP Not Reportable IPAP Not Reportable BiPAP Not Reportable Sodium Potassium Chloride Carbon Dioxide Anion Gap BUN Creatinine Est GFR ( Amer) Est GFR (Non-Af Amer) BUN/Creatinine Ratio Glucose POC Glucose (mg/dL) Lactic Acid Calcium Phosphorus Magnesium Total Bilirubin AST ALT Alkaline Phosphatase Ammonia Total Creatine Kinase CK-MB (CK-2) Troponin I Total Protein Albumin Globulin Albumin/Globulin Ratio Urine Color Yellow Urine Appearance Clear Urine pH 5.0 Ur Specific [place] 1.018 Urine Protein Negative Urine Ketones Trace A Urine Blood Negative Urine Nitrate Negative Urine Bilirubin Negative Urine Urobilinogen Negative Ur Leukocyte Esterase Negative Urine Glucose Negative Salicylates Urine Opiates Screen Ur Barbiturates Screen Ur Phencyclidine Scrn Ur Amphetamines Screen U Benzodiazepines Scrn Urine Cocaine Screen U Cannabinoids Screen Serum Alcohol Influenza A (Rapid) Influenza B (Rapid) Blood Type Antibody Screen Exam: Gen: minimally responsive obese 43 yo female on a ventilator HEENT: ET tube in place CV: RRR, no m/r/g Resp: limited exam, few rhonchi Abd: soft, active BS Ext: trace edema Neuro: non-focal, loosely follows directions] Assessment: [This is a 43 yo female with metastatic HER2+ breast cancer with known and previously treated brain metastasis receiving palliative treatment with Kadcyla , s/p C5 08/06/19. She has a recent diagnosis of pseudotumor cerebrii and started on diamox last week. She now presents unresponsive with septic shock with evidence of a perihilar infiltrate on CXR. Her acute presentation is concerning for possible seizure and secondary aspiration pneumonia. ] Plan: [1. Septic shock likely secondary to aspiration PNA - appears clinically improving - defer management to group leader semiconductor processing team - cont broad spectrum abx 2. Possible seizure - EEG non-focal - neurology has been consulted and discussed the case in detail - plan starting keppra - MRI/MRV pending - meningitis has been considered - will pursue LP if she does not clinically improve 3. Pseudotumor cerebrii - MRV pending 4. Metastatic HER2+ BCA - MRI brain pending to re-evaluate known brain metastasis previously treated by [facility] 04/2018 and stable by serial imaging since, but may be a seizure focus - s/p C5 kadcyla 08/07/19 - no evidence of leptomeningeal disease on 2 recent LPs 5. h/o ovarian venous thrombosis - chronically anticoagulated with Xarelto which is currently held and has been started on a heparin drip which is a reasonable choice given her size Dispo: oncology team will cont to follow closely. Continued ICU level care. Case reviewed with group leader semiconductor processing, Dr Maloney and neurologist, Dr Agustin.
[2019-08-09] MEDS: Cefepime 1 GM in Dextrose(*) 1 GM/50 ML BAG IV SCH (13:48)
--- NOTE | 2019-08-09 14:13 | CONS ---
CONSULTATION REPORT: ADDENDUM: 1. Because she is on Xarelto, we could not do the spinal tap now. Dr. Maloney is holding Xarelto and putting her on a heparin drip so that if we need to we would have better access to her. 2. She has anaphylaxis to the GADOLINIUM and so Dr. Maloney spoke to the radiologist and she is being premedicated for her MRI scan tomorrow, which will be MRI with and without contrast plus the MRA/MRV and again she would be at risk for venous thrombosis given her hypercoagulable state. Thank you for sharing her case. [id number]/[facility] #: [id number] [place]
[2019-08-09] MEDS: metroNIDAZOLE IV 500 MG/100ML* 500 MG/100 ML BAG IVPB SCH (14:24)
--- NOTE | 2019-08-09 15:52 | CONS ---
ADDENDUM NOW INCLUDED ON THIS REPORT CONSULTATION REPORT: DATE OF CONSULT: 08/09/19 PATIENT OF: EBONY Jacobsen and Dr. Maloney. HISTORY OF PRESENT ILLNESS: This is a 43-year-old woman I am asked to evaluate for the change in mental status. She was presenting last night being found unresponsive. She is a complicated medical patient. She has a past medical history of metastatic breast cancer, who was recently in the hospital for intractable headaches and was evaluated by Dr. Browne at that time with a 1-week history of constant right-sided headache that fluctuated with IV Dilaudid therapy. He was concerned about many things including possible increased intracranial pressure given some mild papilledema and a LP was arranged as an outpatient. She also was on chronic narcotic therapy for low back pain and has had an MRI scan, which showed a brain met on 07/06/19 and I reviewed those films. This is a small high posterior frontal enhancing lesion, which was increased in size compared to the prior study of . She had a spinal tap done under fluoroscopy on 07/31/19, which showed an elevated pressure of 290. White cells on the CSF was 4, glucose was 86. She was started on Diamox after her spinal tap and was brought to the emergency room last evening after being found unresponsive at home by her son. She had been seen the day before complaining of headaches and improved after getting pain medication. The patient was unresponsive and had vomitus in her throat and was intubated in the emergency room. She was not responsive. She had been ordered for sedation , was not responsive to tactile stimuli while in the ER prior to being sedated. PAST MEDICAL HISTORY: Consists of metastatic breast cancer, ER positive, HER2 positive, followed by Dr. Jill Hill. She has a history of tachycardia; COPD ; tobacco abuse; chronic pain syndrome; depression; migraines; ovarian venous thrombosis, on anticoagulation. MEDICATIONS: 1. She has Zofran 4 mg as needed. 2. Naproxen 200 mg every 4 hours as needed. 3. Trazodone 200 mg daily. 4. Xarelto 20 mg daily. 5. She is on budesonide and formoterol 2 puffs b.i.d. as needed. 6. Xanax 1 mg 4 times a day as needed. 6. Soma 250 every 4 hours as needed. 7. Rexulti 2 mg daily. 8. Oxycodone 1 to 2 every 4 hours as needed. 9. Fentanyl patch 200 mcg every 2 hours. 10. Decadron 2 mg twice a day. 11. Klor-Con 20 mEq daily. 12. Neurontin 600 t.i.d. 13. Colace 200 mg twice a day as needed. 14. Fluoxetine 60 mg at bedtime. 15. Cetirizine 10 mg daily. ALLERGIES: She is allergic to GADOLINIUM. It is unclear what this allergy means since she has recently had GADOLINIUM without apparent incident. VENLAFAXINE, LATEX, MILK, ADHESIVE TAPE, PROCHLORPERAZINE, PROMETHAZINE, ANTINAUSEA PILLS. FAMILY HISTORY: Father is alive and healthy. The mother's history is not known. She is , lives with her 2 children. She has been smoking for 20 years and is quitting. REVIEW OF SYSTEMS: She cannot give a review of systems because she is intubated. PHYSICAL EXAM: On exam, temperature 99.5, on Tylenol. She apparently had a low -grade fever when she first presented to the ER. Heart rate is 104, respirations 18, blood pressure 102/56. When I first saw her, she was on propofol, the drip was stopped within 15 to 20 minutes. She woke up, could open her eyes on command. She could squeeze fingers and had 5/5 strength on either side and could when asked raise 1 or 2 fingers specifically on command. She appeared oriented. Cranial nerves II through XII were normal. She had full extraocular movements without sixth nerve palsy. Her discs showed slight blurring of her left disc margin, right disc was not well seen. Motor exam revealed normal tone and strength. Reflexes were 1 and equal. She could reach for objects smoothly either side. Sensation grossly intact to light touch. DIAGNOSTIC STUDIES/LAB DATA: Her CT scan I reviewed and was unremarkable. Her EEG on propofol showed slowing but no clear-cut seizure. Potential labs included white count 18,000 this morning with normal platelets, hematocrit 29. Blood gas 7.28, pCO2 46, pO2 85. Normal BMP other than an AST of 118. Her ammonia is 117. CPK on presentation was 1217. ASSESSMENT AND PLAN: With this acute change in mental status that was found and is now cleared, and with a right high frontal tumor which is status post gamma knife, the most likely explanation would be that she had a seizure that was unwitnessed with a tumor focusing and that she was postictal and now is awake, alert, and oriented. We will be starting her on Keppra. Dr. Maloney will continue to follow her. This is not the picture of an overwhelming bacterial meningoencephalitis given her clinical course. She is immunosuppressed, so it is conceivable that this could instead of being a seizure from the tumor could be due to subacute meningitis; however, she appears alert and interactive and we have a good other explanation for this. Dr. Maloney will follow clinically this afternoon, may consider doing a spinal tap. We will be getting an MRI scan with and without contrast, and the contrast will help to see if there is meningeal inflammation. If so, then I would consider doing a spinal tap. After that, would also consider getting an MRA, MRV, with the MRI scans given her pseudotumor cerebri. Thank you for sharing her case. ADDENDUM: 1. Because she is on Xarelto, we could not do the spinal tap now. Dr. Maloney is holding Xarelto and putting her on a heparin drip so that if we need to we would have better access to her. 2. She has anaphylaxis to the GADOLINIUM and so Dr. Maloney spoke to the radiologist and she is being premedicated for her MRI scan tomorrow, which will be MRI with and without contrast plus the MRA/MRV and again she would be at risk for venous thrombosis given her hypercoagulable state. Thank you for sharing her case. [id number]/CPS #: [id number]/CPS #: [id number] SANKET
[2019-08-09] MEDS ORDERED: fentaNYL* 50 MCG/ML 2 ML VIAL (100 MCG VIAL) IV SLOW PU ONE (17:20)
[2019-08-09] MEDS ORDERED: methylPREDNISolone 125 MG* 2 ML VIAL IV ONE ×2 (18:00→23:59)
[2019-08-09] MEDS: Pantoprazole IV* 40 MG IV SCH (20:08)
[2019-08-09] MEDS: NS 0.9% 1000 ML** 1,000 ML IV SCH (20:09)
[2019-08-09] MEDS: Heparin DRIP 25,000 UNITS(*) 25,000 UNITS/500 ML BAG IV SCH (20:09)
[2019-08-09] MEDS: levETIRAcetam IV* 750 MG in NS 0.9% 100 ML* 100 ML IVPB SCH (21:15)
[2019-08-09] MEDS: Gabapentin CAP(*) 300 MG PO SCH (22:25)
[2019-08-09] MEDS: fentaNYL* 50 MCG/ML 2 ML VIAL (100 MCG VIAL) IV SLOW PU PRN ×2 (22:26→23:52)
[2019-08-10] MEDS: Chlorhexidine MOUTHWASH 0.12%* 15 ML UDC TOPICAL SCH ×6 (00:41→19:42)
[2019-08-10] MEDS: Cefepime 1 GM in Dextrose(*) 1 GM/50 ML BAG IV SCH ×4 (01:36→13:22)
[2019-08-10] MEDS: metroNIDAZOLE IV 500 MG/100ML* 500 MG/100 ML BAG IVPB SCH ×2 (02:33→21:01)
[2019-08-10] MEDS: fentaNYL* 50 MCG/ML 2 ML VIAL (100 MCG VIAL) IV SLOW PU PRN ×2 (03:16→05:14)
[2019-08-10 04:43] LABS: Hematocrit 28 % (35-47); Hemoglobin 8.2 g/dL (12.0-16.0); Mean Corpuscular HGB Conc 30 g/dL (31-36); Mean Corpuscular Hemoglobin 23 pg (27-31); Mean Corpuscular Volume 78 fL (80-97); Mean Platelet Volume 8.6 fL (7.4-10.4); Platelet Count 174 10^3/uL (150-450); Red Blood Count 3.52 10^6 /uL (3.70-4.87); Red Cell Distribution Width 22 % (10-15)
[2019-08-10] MEDS: Propofol* 100 ML IV SCH ×9 (04:43→23:00)
[2019-08-10 04:54] LABS: INR 1.33 (0.82-1.09)
[2019-08-10 05:03] LABS: Albumin 3.3 g/dL (3.2-5.2); BUN/Creatinine Ratio 18.2 (8-20); Calcium 8.1 mg/dL (8.6-10.3); EGFR African American 119.4 (>60); EGFR Non-African American 98.7 (>60); Globulin 3.4 g/dL (2-4); Indirect Bilirubin 0.4 mg/dL (0.3-1.0); Magnesium 2.5 mg/dL (1.9-2.7); Phosphorus 1.3 mg/dL (2.5-5.0); Potassium 3.5 mmol/L (3.5-5.0); Total Bilirubin 0.7 mg/dL (0.2-1.0); Total Protein 6.7 g/dL (6.4-8.9)
[2019-08-10] MEDS ORDERED: diPHENhydraMINE IV* 50 MG/ML 1 ml VIAL (BENADRYL) SLOW PUSH ONE ×2 (06:00→16:00)
[2019-08-10] MEDS ORDERED: methylPREDNISolone 125 MG* 2 ML VIAL IV ONE (06:00)
[2019-08-10] MEDS: Heparin VIAL(*) 5000 UNITS/ML VIAL (FIVE THOUSAND) IV SCH ×2 (06:04→19:25)
[2019-08-10] MEDS ORDERED: Potassium Phosphate IV* 10 MMOLE in NS 0.9% 250 ML* 250 ML IVPB ONE ×2 (06:16→13:31)
[2019-08-10] MEDS ORDERED: Docusate LIQ* 100 MG/10 ML UDC PO PRN (07:02)
[2019-08-10] MEDS: Mometasone/Formoter 200/5 MDI INH SCH ×2 (07:14→21:51)
[2019-08-10] MEDS: NS 0.9% 1000 ML** 1,000 ML IV SCH (09:19)
[2019-08-10] MEDS: Gabapentin CAP(*) 300 MG PO SCH ×3 (09:34→21:32)
[2019-08-10] MEDS: levETIRAcetam IV* 750 MG in NS 0.9% 100 ML* 100 ML IVPB SCH (09:34)
--- NOTE | 2019-08-10 09:51 | PN ---
Progress Note - Progress Note Date of Service: 08/10/19 SOAP: Subjective: []Events since admission reviewed. Currently sedated and intubated. Complicated medical history reviewed with Dr. Musa. Medications:f Albuterol/Ipratropium (Duoneb (Albuterol 2.5 Mg/Ipratropium 0.5 Mg)) 1 neb INH Q4H PRN PRN Reason: SOB/WHEEZING Chlorhexidine Gluconate (Peridex Mouth Wash 0.12%*) 15 ml TOPICAL Q4H [facility] Last Admin: 08/10/19 08:35 Dose: 15 ml Docusate Sodium (Colace Liq*) 100 mg PO BID PRN PRN Reason: CONSTIPATION Fentanyl Citrate (Fentanyl*) 50 mcg IV SLOW PU Q1H PRN PRN Reason: Pain Last Admin: 08/10/19 05:14 Dose: 50 mcg Gabapentin (Neurontin Cap(*)) 600 mg PO TID [facility] Last Admin: 08/10/19 09:34 Dose: 600 mg Heparin Sodium (Porcine) (Heparin Vial(*)) 0 units IV .PER PROTOCOL [facility] Last Admin: 08/10/19 06:04 Dose: 2,000 units Hydrocortisone Sodium Succinate (Solu-Cortef*) 100 mg IV Q8H [facility] Heparin Sodium/Dextrose (Heparin Drip 25,000 Units(*)) 25,000 units in 500 mls @ 0 mls/hr IV PER RATE [facility]; Protocol Last Admin: 08/09/19 20:09 Dose: 20 mls/hr Sodium Chloride (Ns 0.9% 1000 Ml) 1,000 mls @ 100 mls/hr IV PER RATE [facility] Last Admin: 08/10/19 09:19 Dose: 100 mls/hr Norepinephrine Bitartrate (Levophed 16 Mcg/Ml Premix*) 4,000 mcg in 250 mls @ 0 mls/hr IV .PER PROTOCOL [facility]; Protocol Last Admin: 08/09/19 07:09 Dose: 30 mls/hr Propofol (Diprivan*) 100 mls @ 14.969 mls/hr IV .PER PROTOCOL [facility]; Protocol Last Admin: 08/10/19 08:34 Dose: 48.8 mls/hr Metronidazole/Sodium Chloride (Flagyl 500 Mg Ivpb*) 500 mg in 100 mls @ 100 mls /hr IVPB Q12H [facility] Last Admin: 08/10/19 02:33 Dose: 100 mls/hr Levetiracetam 750 mg/ Sodium (Chloride) 107.5 mls @ 430 mls/hr IVPB Q12H [facility] Last Admin: 08/10/19 09:34 Dose: 430 mls/hr Cefepime HCl (Maxipime 1 Gm In Dextrose Duplex (*)) 1 gm in 50 mls @ 100 mls/ hr IV Q12H [facility] Last Admin: 08/10/19 01:51 Dose: 100 mls/hr Lactulose (Lactulose*) 30 ml NG TUBE Q8H [facility] Last Admin: 08/10/19 09:33 Dose: 30 ml Mometasone Furoate/Formoterol Fumar (Dulera 200/5 Mdi*) 2 puff INH BID [facility]; Protocol Last Admin: 08/10/19 07:14 Dose: Not Given Pantoprazole Sodium (Protonix Iv*) 40 mg IV Q24H [facility] Last Admin: 08/09/19 20:08 Dose: 40 mg Polyethylene Glycol/Electrolytes (Miralax*) 17 gm PO DAILY PRN PRN Reason: CONSTIPATION Objective: [] Vital Signs Temp Pulse Resp BP Pulse Ox 99.9 F 85 18 127/63 95 08/10/19 06:16 08/10/19 06:16 08/10/19 06:00 08/10/19 06:16 08/10/19 06:16 Sedated HRR, SR LS with dim. left base +BS Obese spoon shaped nails Laboratory Results - last 24 hr 08/09/19 08/09/19 08/09/19 11:02 12:08 12:09 WBC RBC Hgb Hct MCV MCH MCHC RDW Plt Count MPV INR (Anticoag Therapy) APTT 66.2 H Patient Temperature Not Reportable ABG pH 7.28 L ABG pCO2 46 H ABG pO2 85 ABG HCO3 20.9 ABG O2 Saturation 98.3 H ABG Base Excess -5.2 L Respiration Rate Not Reportable O2 Delivery Device Not Reportable Ventilator Type Not Reportable Vent Mode Not Reportable FiO2 Not Reportable Inspiratory Time Not Reportable PEEP Not Reportable Pressure Support Not Reportable Pressure Control Not Reportable EPAP Not Reportable IPAP Not Reportable BiPAP Not Reportable Sodium Potassium Chloride Carbon Dioxide Anion Gap BUN Creatinine Est GFR ( Amer) Est GFR (Non-Af Amer) BUN/Creatinine Ratio Glucose POC Glucose (mg/dL) Calcium Phosphorus Magnesium Total Bilirubin Direct Bilirubin Indirect Bilirubin AST ALT Alkaline Phosphatase Ammonia Total Creatine Kinase Total Protein Albumin Globulin Albumin/Globulin Ratio Beta HCG, Quant Urine Color Yellow Urine Appearance Clear Urine pH 5.0 Ur Specific [place] 1.018 Urine Protein Negative Urine Ketones Trace A Urine Blood Negative Urine Nitrate Negative Urine Bilirubin Negative Urine Urobilinogen Negative Ur Leukocyte Esterase Negative Urine Glucose Negative 08/09/19 08/09/19 08/09/19 13:04 16:41 16:42 WBC RBC Hgb Hct MCV MCH MCHC RDW Plt Count MPV INR (Anticoag Therapy) APTT Patient Temperature ABG pH ABG pCO2 ABG pO2 ABG HCO3 ABG O2 Saturation ABG Base Excess Respiration Rate O2 Delivery Device Ventilator Type Vent Mode FiO2 Inspiratory Time PEEP Pressure Support Pressure Control EPAP IPAP BiPAP Sodium Potassium Chloride Carbon Dioxide Anion Gap BUN Creatinine Est GFR ( Amer) Est GFR (Non-Af Amer) BUN/Creatinine Ratio Glucose POC Glucose (mg/dL) 183 H 162 H Calcium Phosphorus Magnesium Total Bilirubin Direct Bilirubin Indirect Bilirubin AST ALT Alkaline Phosphatase Ammonia Total Creatine Kinase Total Protein Albumin Globulin Albumin/Globulin Ratio Beta HCG, Quant < 0.60 Urine Color Urine Appearance Urine pH Ur Specific [place] Urine Protein Urine Ketones Urine Blood Urine Nitrate Urine Bilirubin Urine Urobilinogen Ur Leukocyte Esterase Urine Glucose 08/10/19 08/10/19 08/10/19 04:30 04:30 04:30 WBC 14.0 H RBC 3.52 L Hgb 8.2 L Hct 28 L MCV 78 L MCH 23 L MCHC 30 L RDW 22 H Plt Count 174 MPV 8.6 INR (Anticoag Therapy) 1.33 H APTT 49.0 H Patient Temperature ABG pH ABG pCO2 ABG pO2 ABG HCO3 ABG O2 Saturation ABG Base Excess Respiration Rate O2 Delivery Device Ventilator Type Vent Mode FiO2 Inspiratory Time PEEP Pressure Support Pressure Control EPAP IPAP BiPAP Sodium 140 Potassium 3.5 Chloride 111 Carbon Dioxide 22 Anion Gap 7 BUN 12 Creatinine 0.66 Est GFR ( Amer) 119.4 Est GFR (Non-Af Amer) 98.7 BUN/Creatinine Ratio 18.2 Glucose 207 H POC Glucose (mg/dL) Calcium 8.1 L Phosphorus 1.3 L Magnesium 2.5 Total Bilirubin 0.70 Direct Bilirubin 0.30 H Indirect Bilirubin 0.4 AST 144 H ALT 88 H Alkaline Phosphatase 126 H Ammonia Total Creatine Kinase 926 H Total Protein 6.7 Albumin 3.3 Globulin 3.4 Albumin/Globulin Ratio 1.0 Beta HCG, Quant Urine Color Urine Appearance Urine pH Ur Specific [place] Urine Protein Urine Ketones Urine Blood Urine Nitrate Urine Bilirubin Urine Urobilinogen Ur Leukocyte Esterase Urine Glucose 08/10/19 08/10/19 04:47 09:05 WBC RBC Hgb Hct MCV MCH MCHC RDW Plt Count MPV INR (Anticoag Therapy) APTT Patient Temperature ABG pH ABG pCO2 ABG pO2 ABG HCO3 ABG O2 Saturation ABG Base Excess Respiration Rate O2 Delivery Device Ventilator Type Vent Mode FiO2 Inspiratory Time PEEP Pressure Support Pressure Control EPAP IPAP BiPAP Sodium Potassium Chloride Carbon Dioxide Anion Gap BUN Creatinine Est GFR ( Amer) Est GFR (Non-Af Amer) BUN/Creatinine Ratio Glucose POC Glucose (mg/dL) 204 H Calcium Phosphorus Magnesium Total Bilirubin Direct Bilirubin Indirect Bilirubin AST ALT Alkaline Phosphatase Ammonia 102 H Total Creatine Kinase Total Protein Albumin Globulin Albumin/Globulin Ratio Beta HCG, Quant Urine Color Urine Appearance Urine pH Ur Specific [place] Urine Protein Urine Ketones Urine Blood Urine Nitrate Urine Bilirubin Urine Urobilinogen Ur Leukocyte Esterase Urine Glucose Assessment: []43 yo female well known to oncology duew to her unfortuante diagnosis of metastatic HER2+ breast cancer with known and previously treated brain metastasis receiving palliative treatment with Kadcyla, s/p C5 08/06/19. Admitted over the weekend after being found unresponsive with question of unwitnessed seizure and subsequent aspiration causing septic shock. Plan: []1. Septic shock likely secondary to aspiration PNA - management as per [employer] consultant team - cont broad spectrum abx 2. Possible seizure - neurology has been consulted - EEG non-focal - started keppra - MRI/MRV pending - consider LP if she does not clinically improve 3. Pseudotumor cerebrii - MRV pending 4. Metastatic ER+/HER2+ Breast CA - MRI brain pending to re-evaluate known brain metastasis previously treated by [facility] 04/2018 and stable by serial imaging since, but may be a seizure focus - s/p C5 kadcyla 08/07/19 - no evidence of leptomeningeal disease on 2 recent LPs 5. h/o ovarian venous thrombosis - chronically anticoagulated with Xarelto which is currently held and has been started on a heparin drip which is a reasonable choice given her size Dispo: oncology team will cont. to follow closely. Continued ICU level care. Case reviewed with [employer] consultant, Dr. Musa.
[2019-08-10] MEDS ORDERED: Dextrose 50% Syringe 50 ML* 25 GM/50 ML SYRINGE IV PUSH PRN (13:39)
--- NOTE | 2019-08-10 13:45 | PN ---
Progress Note - Progress Note Date of Service: 08/10/19 Note: Progress Note -- Critical Care 24 hour events/significant events: - Tmax 100.2, WBC trending down. Ammonia remains elevated - Started premedication for gadolinium allergy to obtain MRI/MRA/MRV. Still pending for today - levophed remains on at 4. - Heme/onc and Neurology were consulted - Started on Keppra for seizure prophylaxis ROS: ROS unable to be obtained secondary to intubated/sedated Tele: NSR, HR 70's Vitals: Vital Signs 08/08/19 08/08/19 08/08/19 19:00 19:37 19:39 Temperature 100.2 F Pulse Rate 127 134 134 Respiratory 23 Rate Blood Pressure 144/60 177/96 (mmHg) O2 Sat by Pulse 89 96 96 Oximetry 08/08/19 08/08/19 08/08/19 20:04 20:08 20:19 Temperature Pulse Rate 135 134 133 Respiratory Rate Blood Pressure 167/93 173/87 (mmHg) O2 Sat by Pulse 95 95 95 Oximetry 08/08/19 08/08/19 08/08/19 20:29 20:39 20:49 Temperature Pulse Rate 131 132 130 Respiratory Rate Blood Pressure 170/88 177/79 158/85 (mmHg) O2 Sat by Pulse 95 94 94 Oximetry 08/08/19 08/08/19 08/08/19 20:59 21:01 21:09 Temperature Pulse Rate 132 132 128 Respiratory Rate Blood Pressure 160/82 159/87 (mmHg) O2 Sat by Pulse 89 89 92 Oximetry 08/08/19 08/08/19 08/08/19 21:19 21:24 21:29 Temperature Pulse Rate 124 124 122 Respiratory Rate Blood Pressure 151/77 150/78 144/73 (mmHg) O2 Sat by Pulse 92 92 91 Oximetry 08/08/19 08/08/19 08/08/19 21:34 21:39 21:44 Temperature 102.0 F 102.0 F Pulse Rate 121 122 120 Respiratory Rate Blood Pressure 129/76 129/76 125/80 (mmHg) O2 Sat by Pulse 92 91 91 Oximetry 08/08/19 08/08/19 08/08/19 21:45 21:49 21:54 Temperature 101.6 F 102.0 F 101.8 F Pulse Rate 115 122 120 Respiratory 18 Rate Blood Pressure 106/51 136/66 122/65 (mmHg) O2 Sat by Pulse 97 92 95 Oximetry 08/08/19 08/08/19 08/08/19 22:00 22:15 22:25 Temperature 101.7 F 101.7 F Pulse Rate 115 116 Respiratory 16 16 Rate Blood Pressure 122/65 (mmHg) O2 Sat by Pulse 94 94 Oximetry 08/08/19 08/08/19 08/08/19 22:34 22:45 23:00 Temperature 101.7 F 101.5 F 101.3 F Pulse Rate 114 112 111 Respiratory 16 Rate Blood Pressure 106/51 95/48 86/38 (mmHg) O2 Sat by Pulse 97 97 98 Oximetry 08/08/19 08/08/19 08/08/19 23:15 23:30 23:45 Temperature 100.9 F 100.8 F 100.4 F Pulse Rate 111 108 107 Respiratory Rate Blood Pressure 89/46 93/46 92/41 (mmHg) O2 Sat by Pulse 98 98 98 Oximetry 08/08/19 08/09/19 08/09/19 23:56 00:00 00:15 Temperature 100.2 F 100.0 F 99.9 F Pulse Rate 107 107 106 Respiratory 16 Rate Blood Pressure 94/44 90/46 94/53 (mmHg) O2 Sat by Pulse 98 98 98 Oximetry 08/09/19 08/09/19 08/09/19 00:30 00:43 00:45 Temperature 99.7 F 99.5 F 99.5 F Pulse Rate 105 104 104 Respiratory Rate Blood Pressure 90/49 89/50 89/47 (mmHg) O2 Sat by Pulse 97 98 98 Oximetry 08/09/19 08/09/19 08/09/19 01:00 01:15 01:30 Temperature 99.1 F 99.1 F 99.0 F Pulse Rate 104 104 103 Respiratory 16 Rate Blood Pressure 92/47 100/51 102/52 (mmHg) O2 Sat by Pulse 98 98 98 Oximetry 08/09/19 08/09/19 08/09/19 01:45 02:00 02:15 Temperature 99.0 F 98.8 F 98.8 F Pulse Rate 103 103 103 Respiratory 16 Rate Blood Pressure 106/53 110/55 113/55 (mmHg) O2 Sat by Pulse 98 98 98 Oximetry 08/09/19 08/09/19 08/09/19 02:30 02:45 03:00 Temperature 98.8 F 98.8 F Pulse Rate 103 104 Respiratory 19 Rate Blood Pressure 110/55 108/63 (mmHg) O2 Sat by Pulse 98 98 Oximetry 08/09/19 08/09/19 08/09/19 03:01 03:16 03:30 Temperature 99.0 F 99.0 F 99.0 F Pulse Rate 107 105 104 Respiratory Rate Blood Pressure 105/96 95/69 101/49 (mmHg) O2 Sat by Pulse 99 94 95 Oximetry 08/09/19 08/09/19 08/09/19 03:45 04:00 04:01 Temperature 99.0 F 99.0 F Pulse Rate 104 105 Respiratory 18 18 Rate Blood Pressure 103/51 103/49 (mmHg) O2 Sat by Pulse 96 97 Oximetry 08/09/19 08/09/19 08/09/19 04:15 04:31 04:46 Temperature 99.0 F 99.0 F 99.0 F Pulse Rate 105 105 105 Respiratory Rate Blood Pressure 104/45 108/47 102/45 (mmHg) O2 Sat by Pulse 97 98 97 Oximetry 08/09/19 08/09/19 08/09/19 05:00 05:16 05:31 Temperature 99.0 F 99.0 F 99.1 F Pulse Rate 106 107 106 Respiratory 16 Rate Blood Pressure 108/50 98/47 89/49 (mmHg) O2 Sat by Pulse 97 97 97 Oximetry 08/09/19 08/09/19 08/09/19 05:42 05:45 06:00 Temperature 99.1 F 99.1 F 99.1 F Pulse Rate 106 106 107 Respiratory 16 Rate Blood Pressure 105/50 102/47 111/49 (mmHg) O2 Sat by Pulse 98 98 97 Oximetry 08/09/19 08/09/19 08/09/19 06:16 06:31 06:46 Temperature 99.1 F 99.1 F 99.1 F Pulse Rate 110 107 107 Respiratory Rate Blood Pressure 120/101 117/65 121/52 (mmHg) O2 Sat by Pulse 98 98 98 Oximetry 08/09/19 08/09/19 08/09/19 07:00 07:01 07:16 Temperature 99.1 F 99.1 F Pulse Rate 107 107 Respiratory 18 16 Rate Blood Pressure 111/65 117/60 (mmHg) O2 Sat by Pulse 98 92 Oximetry 08/09/19 08/09/19 08/09/19 07:31 07:45 08:00 Temperature 99.1 F 99.1 F 99.1 F Pulse Rate 105 106 106 Respiratory 18 Rate Blood Pressure 111/60 105/58 113/65 (mmHg) O2 Sat by Pulse 92 92 92 Oximetry 08/09/19 08/09/19 08/09/19 08:15 08:30 08:45 Temperature 99.1 F 99.1 F 99.1 F Pulse Rate 105 106 105 Respiratory Rate Blood Pressure 115/66 115/65 118/65 (mmHg) O2 Sat by Pulse 92 93 93 Oximetry 08/09/19 08/09/19 08/09/19 09:00 09:01 09:15 Temperature 99.3 F 99.3 F 99.3 F Pulse Rate 107 106 105 Respiratory 18 Rate Blood Pressure 108/63 120/61 (mmHg) O2 Sat by Pulse 93 93 94 Oximetry 08/09/19 08/09/19 08/09/19 09:30 09:45 10:00 Temperature 99.3 F 99.3 F 99.3 F Pulse Rate 106 105 105 Respiratory 18 Rate Blood Pressure 110/63 111/63 110/65 (mmHg) O2 Sat by Pulse 94 94 94 Oximetry 08/09/19 08/09/19 08/09/19 10:15 10:30 10:45 Temperature 99.3 F 99.3 F 99.3 F Pulse Rate 104 104 103 Respiratory Rate Blood Pressure 109/65 110/65 105/56 (mmHg) O2 Sat by Pulse 94 94 94 Oximetry 08/09/19 08/09/19 08/09/19 11:00 11:15 11:30 Temperature 99.3 F 99.5 F 99.5 F Pulse Rate 104 104 105 Respiratory 18 Rate Blood Pressure 108/63 110/59 106/61 (mmHg) O2 Sat by Pulse 94 93 92 Oximetry 08/09/19 08/09/19 08/09/19 11:46 12:00 12:01 Temperature 99.5 F 99.5 F 99.5 F Pulse Rate 105 103 104 Respiratory 18 Rate Blood Pressure 108/57 102/56 (mmHg) O2 Sat by Pulse 92 92 93 Oximetry Intake and Output Last 24 Hours 08/07/19 08/08/19 08/09/19 08/10/19 06:59 06:59 06:59 06:59 Intake Total 5106.3 Output Total 1010 665 Balance 4096.3 -665 Weight 275 lb Intake: IV Fluids 4398 Heparin 131 NS 2167 IVPB 378 ABX 378 Medicated IV 330.3 Levophed 187 propofol 143.3 Output: Reina 910 665 Residual 100 16 Fr Temperature Probe 100 O2/Vent: CMV 18/450/+8/40% Infusions: NS @ 100, Propofol @ 60, levo @ 4, heparin drip per protocol Medications: Albuterol/Ipratropium (Duoneb (Albuterol 2.5 Mg/Ipratropium 0.5 Mg)) 1 neb INH Q4H PRN PRN Reason: SOB/WHEEZING Chlorhexidine Gluconate (Peridex Mouth Wash 0.12%*) 15 ml TOPICAL Q4H [facility] Last Admin: 08/10/19 12:11 Dose: 15 ml Dextrose (D50w Syringe 50 Ml*) 12.5 gm IV PUSH .FOR FS < 60 - SS PRN PRN Reason: FS < 60 Docusate Sodium (Colace Liq*) 100 mg PO BID PRN PRN Reason: CONSTIPATION Fentanyl Citrate (Fentanyl*) 50 mcg IV SLOW PU Q1H PRN PRN Reason: Pain Last Admin: 08/10/19 05:14 Dose: 50 mcg Gabapentin (Neurontin Cap(*)) 600 mg PO TID [facility] Last Admin: 08/10/19 09:34 Dose: 600 mg Heparin Sodium (Porcine) (Heparin Vial(*)) 0 units IV .PER PROTOCOL [facility] Last Admin: 08/10/19 06:04 Dose: 2,000 units Hydrocortisone Sodium Succinate (Solu-Cortef*) 100 mg IV Q8H [facility] Heparin Sodium/Dextrose (Heparin Drip 25,000 Units(*)) 25,000 units in 500 mls @ 0 mls/hr IV PER RATE [facility]; Protocol Last Admin: 08/09/19 20:09 Dose: 20 mls/hr Sodium Chloride (Ns 0.9% 1000 Ml) 1,000 mls @ 100 mls/hr IV PER RATE [facility] Last Admin: 08/10/19 09:19 Dose: 100 mls/hr Norepinephrine Bitartrate (Levophed 16 Mcg/Ml Premix*) 4,000 mcg in 250 mls @ 0 mls/hr IV .PER PROTOCOL [facility]; Protocol Last Admin: 08/09/19 07:09 Dose: 30 mls/hr Propofol (Diprivan*) 100 mls @ 14.969 mls/hr IV .PER PROTOCOL [facility]; Protocol Last Admin: 08/10/19 12:16 Dose: 48.8 mls/hr Metronidazole/Sodium Chloride (Flagyl 500 Mg Ivpb*) 500 mg in 100 mls @ 100 mls /hr IVPB Q12H [facility] Last Admin: 08/10/19 02:33 Dose: 100 mls/hr Levetiracetam 750 mg/ Sodium (Chloride) 107.5 mls @ 430 mls/hr IVPB Q12H [facility] Last Admin: 08/10/19 09:34 Dose: 430 mls/hr Cefepime HCl (Maxipime 1 Gm In Dextrose Duplex (*)) 1 gm in 50 mls @ 100 mls/ hr IV Q12H [facility] Last Admin: 08/10/19 13:22 Dose: 100 mls/hr Potassium Phosphate 10 mmole/ (Sodium Chloride) 253.3333 mls @ 42 mls/hr IVPB ONCE ONE Stop: 08/10/19 19:32 Insulin Human Lispro (Humalog*) 0 units SUBCUT FS Q4 ICU [facility]; Protocol Lactulose (Lactulose*) 30 ml NG TUBE Q8H [facility] Last Admin: 08/10/19 09:33 Dose: 30 ml Mometasone Furoate/Formoterol Fumar (Dulera 200/5 Mdi*) 2 puff INH BID [facility]; Protocol Last Admin: 08/10/19 07:14 Dose: Not Given Nystatin (Nystatin Suspension*) 200,000 units PO QID [facility] Stop: 08/24/19 09:00 Pantoprazole Sodium (Protonix Iv*) 40 mg IV Q24H [facility] Last Admin: 08/09/19 20:08 Dose: 40 mg Polyethylene Glycol/Electrolytes (Miralax*) 17 gm PO DAILY PRN PRN Reason: CONSTIPATION Physical Exam: Constitutional: Intubated, sedated, no apparent distress Head: normocephalic, atraumatic Eyes: no pallor, no icterus, has intermittent downward gaze, periorbital edema ENT: moist mucous membranes, appears to have thrush on her tongue Neck: soft, supple, no jvd, no stridor CVS: S1S2, regular, no murmur Chest/Resp: bilateral air entry dimished in the bases, no rhales, no wheeze, no rhonchi, no acc muscle use. Vented. Abdomen/GI: soft, nontender, nondistended, BS hypoactive Ext/Msk: warm, pulses+, generalized edema Skin: intact, warm Neuro: Sedated and intubated. Sedation not paused for exam. She does not open her eyes or follow commands. Mild withdrawal to noxious stimuli in all extremities. + cough, gag, corneal and pupillary reflex. Pupils 5mm equal and reactive Psych: unable to assess at this time Labs: Laboratory Results - last 24 hr 08/09/19 08/09/19 08/10/19 16:41 16:42 04:30 WBC RBC Hgb Hct MCV MCH MCHC RDW Plt Count MPV INR (Anticoag Therapy) 1.33 H APTT 49.0 H Sodium Potassium Chloride Carbon Dioxide Anion Gap BUN Creatinine Est GFR ( Amer) Est GFR (Non-Af Amer) BUN/Creatinine Ratio Glucose POC Glucose (mg/dL) 162 H Calcium Phosphorus Magnesium Total Bilirubin Direct Bilirubin Indirect Bilirubin AST ALT Alkaline Phosphatase Ammonia Total Creatine Kinase Total Protein Albumin Globulin Albumin/Globulin Ratio Beta HCG, Quant < 0.60 08/10/19 08/10/19 08/10/19 04:30 04:30 04:47 WBC 14.0 H RBC 3.52 L Hgb 8.2 L Hct 28 L MCV 78 L MCH 23 L MCHC 30 L RDW 22 H Plt Count 174 MPV 8.6 INR (Anticoag Therapy) APTT Sodium 140 Potassium 3.5 Chloride 111 Carbon Dioxide 22 Anion Gap 7 BUN 12 Creatinine 0.66 Est GFR ( Amer) 119.4 Est GFR (Non-Af Amer) 98.7 BUN/Creatinine Ratio 18.2 Glucose 207 H POC Glucose (mg/dL) Calcium 8.1 L Phosphorus 1.3 L Magnesium 2.5 Total Bilirubin 0.70 Direct Bilirubin 0.30 H Indirect Bilirubin 0.4 AST 144 H ALT 88 H Alkaline Phosphatase 126 H Ammonia 102 H Total Creatine Kinase 926 H Total Protein 6.7 Albumin 3.3 Globulin 3.4 Albumin/Globulin Ratio 1.0 Beta HCG, Quant 08/10/19 08/10/19 08/10/19 09:05 11:59 12:07 WBC RBC Hgb Hct MCV MCH MCHC RDW Plt Count MPV INR (Anticoag Therapy) APTT 55.3 H Sodium Potassium Chloride Carbon Dioxide Anion Gap BUN Creatinine Est GFR ( Amer) Est GFR (Non-Af Amer) BUN/Creatinine Ratio Glucose POC Glucose (mg/dL) 204 H 208 H Calcium Phosphorus Magnesium Total Bilirubin Direct Bilirubin Indirect Bilirubin AST ALT Alkaline Phosphatase Ammonia Total Creatine Kinase Total Protein Albumin Globulin Albumin/Globulin Ratio Beta HCG, Quant Intake and Output Last 24 Hours 08/08/19 08/09/19 08/10/19 08/11/19 06:59 06:59 06:59 06:59 Intake Total 5106.3 4250 Output Total 1010 2535 410 Balance 4096.3 1715 -410 Weight 274 lb 7.608 oz Intake: IV Fluids 4398 2247 Heparin 131 446 NS 2167 1801 IVPB 378 786 ABX 378 ABX - CEFEPIME 178 ABX - FLAGYL 235 ABX - VANCOMYCIN 263 ABX - ZOSYN 110 Medicated IV 330.3 1217 Keppra 227 Levophed 187 215 propofol 143.3 775 Output: NG Tube Drainage Amount 300 Reina 910 2235 410 Residual 100 16 Fr Temperature Probe 100 Imagin/20: Chest xray: Unchanged from previous 08/09: CT C/A/P: hepatosplenomegaly, s/p cholecystecomy, dependent consolidation in the lower lobes of the lung 08/09: Chest xray: Perihilar predemoninent airspace consolidation, LLL infiltrate 08/09: Echo: EF 55-60%, pulm artery pressure 37 08/08: CT brain redemonstrated right posterior frontal hypodensity. No acute changes Assessment: 43F with known medical history of metastatic breast cancer to brain , spine, and liver, s/p chemo, COPD, chronic pain, depression/anxiety and ovarian vein thrombosis, currently on Xarelto. Presents initially on 08/07 with complaints of headache, blurred vision and difficulty walking. She was given IVF and pain medication and discharged home. She was subsequently found unresponsive on her couch on 08/08 in the evening. She was found to have vomit in her throat. GCS 6 on arrival and was intubated for airway protection/acute respiratory failure. Temp 102 on arrival. Started treatment for sepsis with IVF and antibiotics. Home Xarelto discontinued and heparin drip was started. - Left sided PNA - Acute respiratory failure - Sepsis - Elevated liver enzymes - Brain lesion - Metastatic breast cancer to brain, liver, spine - R/o seizures Plan: Neuro- - AMS: unknown etiology at this point. Differential diagnoses include seizures, polypharmacy, sepsis, known history of pseudotumor cerebri. Consider LP if continues to have AMS. - CT brain 08/08 redemonstrated right posterior frontal lobe lesion, keeping with known enhancing lesion seen on MRI on 07/06/19. - EEG negative, continue Keppra 750mg q12hrs. - Will obtain repeat MRI brain w/wo contrast as well as MRA and MRV w/o contrast to r/o sinus venous thrombosis and assess vasculature. Patient recevied premedication. MRI pending for this afternoon. - Propofol for sedation, goal RASS -4. -Delirium prec; avoid BDZ CVS- - Hypotensive: continues to require small amount of levophed. -Titrate Pressors to Maintain MAP>65 - Continue NS @ 100 - Tachycardia has resolved. Resp- - Intubated for airway protection, acute respiratory failure. Will increased PEEP to 8 and RR to 18. - ABG 7.28/46/85/20.9 on 08/09. Respiratory acidosis. Continue current vent settings: CMV 18/450/+8/%40 -Wean Fio2 to keep sat>92% -Bronchodilators PRN, Aspiration prec, Pulmonary Toilet -VAP bundle - Chest xray 08/10: stable from previous, left sided infiltrate concerning for pneumonia ID- - Left sided pneumonia: aspiration vs CAP - CT chest/abdomen/pelvis: hepatosplenomegaly, s/p cholecystecomy, dependent consolidation in the lower lobes of the lungs. - Continue cefepime 1G q12hr and flagyl 500mg q12hr to cover for aspiration pneumonia - Urine negative for legionella and S.pneumo - Cultures pending - Thrush: oral. Started nystatin q6hrs GI- -Nutrition: NPO. Continue tube feeds -GI prophylaxis - Liver enzymes are elevated, AST 144 (118), ALT 88(48), alk phos 126(138), ammonia 110(117) - Continue lactulose 30g q8hr and monitor ammonia daily. Renal- -strict I/O, replete to keep K>4, Mg>2 -Continue erina - Currently net positive - Continue to monitor kidney function on BMP, currently WNL Heme- - Ovarian vein thrombosis: has been on Xarelto at home. Discontinued on admission - Continue heparin drip per protocol. Endo-Maintain BG<200 - Has been consistently elevated. - Continue chemstrips q4h - Start low dose insulin sliding scale q4h Musculsk- pressure ulcer prophylaxis. Bedrest. Wounds- none Nutrition- NPO, Continue tube feeds DVT prophylaxis: heparin drip and SCDs GI prophylaxis: protonix Reina Catheter: continue Disposition: Patient requires Critical Care/ICU for vasopressors, intubated/ vented, sepsis, possible seizures Patient clinical status: Critical Code Status: Full Critical Care time: 30 minutes
[2019-08-10] MEDS: Nystatin SUSPENSION* 100000 UNITS/ML 5 ML UDC PO SCH ×3 (14:23→21:31)
[2019-08-10] MEDS: Hydrocortisone INJ* 100 MG/2 ML VIAL (in pyxis) IV SCH ×2 (14:26→21:31)
--- NOTE | 2019-08-10 15:48 | PN ---
Subjective Date of Service: 08/10/19 Length of Stay: 2 Days No new issues overnight. Remains sedated on propofol. Now off pressors. No spontaneous movements, no spontaneous eye opening. No seizure like activity reported Family History: Unchanged from Admission Social History: Unchanged from Admission Past Medical History: Unchanged from Admission Objective Active Medications: Albuterol/Ipratropium (Duoneb (Albuterol 2.5 Mg/Ipratropium 0.5 Mg)) 1 neb INH Q4H PRN PRN Reason: SOB/WHEEZING Chlorhexidine Gluconate (Peridex Mouth Wash 0.12%*) 15 ml TOPICAL Q4H [facility] Last Admin: 08/10/19 12:11 Dose: 15 ml Dextrose (D50w Syringe 50 Ml*) 12.5 gm IV PUSH .FOR FS < 60 - SS PRN PRN Reason: FS < 60 Diphenhydramine HCl (Benadryl Iv*) 50 mg SLOW PUSH ONCE ONE Stop: 08/10/19 16:01 Docusate Sodium (Colace Liq*) 100 mg PO BID PRN PRN Reason: CONSTIPATION Fentanyl Citrate (Fentanyl*) 50 mcg IV SLOW PU Q1H PRN PRN Reason: Pain Last Admin: 08/10/19 05:14 Dose: 50 mcg Gabapentin (Neurontin Cap(*)) 600 mg PO TID [facility] Last Admin: 08/10/19 14:30 Dose: 600 mg Heparin Sodium (Porcine) (Heparin Vial(*)) 0 units IV .PER PROTOCOL [facility] Last Admin: 08/10/19 06:04 Dose: 2,000 units Hydrocortisone Sodium Succinate (Solu-Cortef*) 100 mg IV Q8H [facility] Last Admin: 08/10/19 14:26 Dose: 100 mg Heparin Sodium/Dextrose (Heparin Drip 25,000 Units(*)) 25,000 units in 500 mls @ 0 mls/hr IV PER RATE [facility]; Protocol Last Admin: 08/09/19 20:09 Dose: 20 mls/hr Sodium Chloride (Ns 0.9% 1000 Ml) 1,000 mls @ 100 mls/hr IV PER RATE [facility] Last Admin: 08/10/19 09:19 Dose: 100 mls/hr Norepinephrine Bitartrate (Levophed 16 Mcg/Ml Premix*) 4,000 mcg in 250 mls @ 0 mls/hr IV .PER PROTOCOL [facility]; Protocol Last Admin: 08/09/19 07:09 Dose: 30 mls/hr Propofol (Diprivan*) 100 mls @ 14.969 mls/hr IV .PER PROTOCOL [facility]; Protocol Last Admin: 08/10/19 14:19 Dose: 41.3 mls/hr Levetiracetam 750 mg/ Sodium (Chloride) 107.5 mls @ 430 mls/hr IVPB Q12H [facility] Last Admin: 08/10/19 09:34 Dose: 430 mls/hr Potassium Phosphate 10 mmole/ (Sodium Chloride) 253.3333 mls @ 42 mls/hr IVPB ONCE ONE Stop: 08/10/19 19:32 Last Admin: 08/10/19 14:21 Dose: 42 mls/hr Ceftriaxone Sodium 2 gm/ (Sodium Chloride) 100 mls @ 200 mls/hr IVPB Q12H [facility] Insulin Human Lispro (Humalog*) 0 units SUBCUT FS Q4 ICU [facility]; Protocol Lactulose (Lactulose*) 30 ml NG TUBE Q8H [facility] Last Admin: 08/10/19 09:33 Dose: 30 ml Mometasone Furoate/Formoterol Fumar (Dulera 200/5 Mdi*) 2 puff INH BID [facility]; Protocol Last Admin: 08/10/19 07:14 Dose: Not Given Nystatin (Nystatin Suspension*) 200,000 units PO QID [facility] Stop: 08/24/19 09:00 Last Admin: 08/10/19 14:23 Dose: 200,000 units Pantoprazole Sodium (Protonix Iv*) 40 mg IV Q24H [facility] Last Admin: 08/09/19 20:08 Dose: 40 mg Polyethylene Glycol/Electrolytes (Miralax*) 17 gm PO DAILY PRN PRN Reason: CONSTIPATION Vital Signs 08/09/19 08/09/19 08/09/19 15:30 15:46 15:56 Temperature 99.0 F 99.0 F Pulse Rate 102 101 Respiratory 18 Rate Blood Pressure 93/49 88/53 (mmHg) O2 Sat by Pulse 95 95 Oximetry 08/09/19 08/09/19 08/09/19 16:00 16:15 16:30 Temperature 99.0 F 99.0 F 99.0 F Pulse Rate 101 101 102 Respiratory Rate Blood Pressure 92/56 93/50 (mmHg) O2 Sat by Pulse 95 95 95 Oximetry 08/09/19 08/09/19 08/09/19 16:45 17:00 17:15 Temperature 99.0 F 99.1 F 99.1 F Pulse Rate 102 102 102 Respiratory 18 Rate Blood Pressure 92/54 96/52 97/54 (mmHg) O2 Sat by Pulse 95 95 95 Oximetry 08/09/19 08/09/19 08/09/19 17:30 17:45 18:00 Temperature 99.1 F 99.1 F 99.1 F Pulse Rate 104 104 103 Respiratory 18 Rate Blood Pressure 107/60 101/57 104/44 (mmHg) O2 Sat by Pulse 95 95 94 Oximetry 08/09/19 08/09/19 08/09/19 18:15 18:27 18:30 Temperature 99.3 F 99.3 F 99.3 F Pulse Rate 103 101 101 Respiratory Rate Blood Pressure 88/51 96/52 97/50 (mmHg) O2 Sat by Pulse 95 95 95 Oximetry 08/09/19 08/09/19 08/09/19 18:45 19:00 19:01 Temperature 99.1 F 99.3 F 99.3 F Pulse Rate 102 101 100 Respiratory 18 Rate Blood Pressure 106/59 99/53 (mmHg) O2 Sat by Pulse 96 95 95 Oximetry 08/09/19 08/09/19 08/09/19 19:15 19:31 19:45 Temperature 99.3 F 99.5 F 99.5 F Pulse Rate 101 101 98 Respiratory Rate Blood Pressure 93/55 91/54 98/56 (mmHg) O2 Sat by Pulse 94 95 95 Oximetry 08/09/19 08/09/19 08/09/19 20:00 20:01 20:16 Temperature 99.5 F 99.5 F 99.5 F Pulse Rate 98 98 98 Respiratory 15 Rate Blood Pressure 101/54 103/56 (mmHg) O2 Sat by Pulse 95 95 95 Oximetry 08/09/19 08/09/19 08/09/19 20:30 20:45 21:00 Temperature 99.5 F 99.5 F 99.7 F Pulse Rate 99 100 99 Respiratory 18 Rate Blood Pressure 100/67 122/63 (mmHg) O2 Sat by Pulse 97 96 95 Oximetry 08/09/19 08/09/19 08/09/19 21:01 21:15 21:31 Temperature 99.7 F 99.7 F 99.9 F Pulse Rate 98 99 101 Respiratory Rate Blood Pressure 109/68 120/71 119/65 (mmHg) O2 Sat by Pulse 96 96 95 Oximetry 08/09/19 08/09/19 08/09/19 21:46 22:00 22:01 Temperature 99.9 F 99.9 F 99.9 F Pulse Rate 100 99 99 Respiratory 18 Rate Blood Pressure 116/63 114/69 (mmHg) O2 Sat by Pulse 95 95 95 Oximetry 08/09/19 08/09/19 08/09/19 22:15 22:26 22:30 Temperature 99.9 F 99.9 F Pulse Rate 99 99 Respiratory 18 Rate Blood Pressure 113/59 110/63 (mmHg) O2 Sat by Pulse 95 95 Oximetry 08/09/19 08/09/19 08/09/19 22:45 23:00 23:01 Temperature 99.7 F 99.5 F 99.5 F Pulse Rate 97 96 97 Respiratory 18 Rate Blood Pressure 111/62 109/64 (mmHg) O2 Sat by Pulse 95 95 95 Oximetry 08/09/19 08/09/19 08/09/19 23:15 23:30 23:43 Temperature 99.3 F 99.3 F 99.5 F Pulse Rate 98 98 95 Respiratory Rate Blood Pressure 108/61 119/68 (mmHg) O2 Sat by Pulse 94 95 95 Oximetry 08/09/19 08/09/19 08/10/19 23:46 23:52 00:00 Temperature 99.5 F 99.5 F Pulse Rate 96 97 Respiratory 18 18 Rate Blood Pressure 120/62 (mmHg) O2 Sat by Pulse 95 94 Oximetry 08/10/19 08/10/19 08/10/19 00:01 00:16 00:30 Temperature 99.5 F 99.5 F 99.5 F Pulse Rate 97 98 98 Respiratory Rate Blood Pressure 113/56 101/57 94/58 (mmHg) O2 Sat by Pulse 94 94 93 Oximetry 08/10/19 08/10/19 08/10/19 00:45 01:00 01:15 Temperature 99.5 F 99.3 F 99.5 F Pulse Rate 96 96 96 Respiratory 16 Rate Blood Pressure 107/60 106/64 108/62 (mmHg) O2 Sat by Pulse 94 94 94 Oximetry 08/10/19 08/10/19 08/10/19 01:30 01:45 02:00 Temperature 99.5 F 99.5 F 99.5 F Pulse Rate 96 95 94 Respiratory 18 Rate Blood Pressure 106/62 102/60 103/60 (mmHg) O2 Sat by Pulse 94 93 93 Oximetry 08/10/19 08/10/19 08/10/19 02:15 02:30 03:00 Temperature 99.5 F 99.5 F 99.7 F Pulse Rate 93 95 96 Respiratory 18 Rate Blood Pressure 107/58 102/68 (mmHg) O2 Sat by Pulse 92 94 93 Oximetry 08/10/19 08/10/19 08/10/19 03:01 03:08 03:16 Temperature 99.7 F 99.7 F 99.7 F Pulse Rate 95 94 94 Respiratory 22 Rate Blood Pressure 89/49 91/49 97/48 (mmHg) O2 Sat by Pulse 93 93 95 Oximetry 08/10/19 08/10/19 08/10/19 03:19 03:31 03:46 Temperature 99.7 F 99.7 F 99.7 F Pulse Rate 94 91 88 Respiratory Rate Blood Pressure 110/71 113/52 105/55 (mmHg) O2 Sat by Pulse 94 95 96 Oximetry 08/10/19 08/10/19 08/10/19 04:00 04:01 04:16 Temperature 99.7 F 99.7 F 99.7 F Pulse Rate 88 87 87 Respiratory 18 Rate Blood Pressure 106/53 106/52 (mmHg) O2 Sat by Pulse 96 96 96 Oximetry 08/10/19 08/10/19 08/10/19 04:31 04:45 05:00 Temperature 99.7 F 99.9 F 99.9 F Pulse Rate 85 89 91 Respiratory 23 Rate Blood Pressure 97/47 110/53 111/63 (mmHg) O2 Sat by Pulse 95 96 96 Oximetry 08/10/19 08/10/19 08/10/19 05:14 05:16 05:31 Temperature 99.9 F 100.0 F Pulse Rate 90 88 Respiratory 22 Rate Blood Pressure 122/62 115/61 (mmHg) O2 Sat by Pulse 95 96 Oximetry 08/10/19 08/10/19 08/10/19 05:46 06:00 06:01 Temperature 100.0 F 99.9 F 99.9 F Pulse Rate 89 85 86 Respiratory 18 Rate Blood Pressure 127/53 150/79 (mmHg) O2 Sat by Pulse 96 96 96 Oximetry 08/10/19 08/10/19 08/10/19 06:10 06:16 06:31 Temperature 99.9 F 99.9 F 99.9 F Pulse Rate 88 85 84 Respiratory Rate Blood Pressure 127/71 127/63 119/68 (mmHg) O2 Sat by Pulse 96 95 96 Oximetry 08/10/19 08/10/19 08/10/19 06:46 07:00 07:01 Temperature 99.9 F 99.7 F 99.7 F Pulse Rate 90 83 83 Respiratory 17 Rate Blood Pressure 102/55 107/65 (mmHg) O2 Sat by Pulse 94 96 95 Oximetry 08/10/19 08/10/19 08/10/19 07:16 07:31 07:46 Temperature 99.7 F 99.5 F 99.7 F Pulse Rate 82 82 80 Respiratory Rate Blood Pressure 102/67 104/67 99/69 (mmHg) O2 Sat by Pulse 95 95 95 Oximetry 08/10/19 08/10/19 08/10/19 08:00 08:16 08:31 Temperature 99.7 F 99.7 F 99.7 F Pulse Rate 80 84 84 Respiratory 21 Rate Blood Pressure 117/64 118/68 106/70 (mmHg) O2 Sat by Pulse 95 96 96 Oximetry 08/10/19 08/10/19 08/10/19 08:46 09:00 09:01 Temperature 99.7 F 99.9 F 99.9 F Pulse Rate 85 86 87 Respiratory 18 Rate Blood Pressure 105/66 109/62 (mmHg) O2 Sat by Pulse 94 94 95 Oximetry 08/10/19 08/10/19 08/10/19 09:16 09:31 09:46 Temperature 99.9 F 100.0 F 100.0 F Pulse Rate 89 88 84 Respiratory Rate Blood Pressure 110/50 102/68 116/54 (mmHg) O2 Sat by Pulse 97 94 95 Oximetry 08/10/19 08/10/19 08/10/19 10:00 10:01 10:02 Temperature 100.0 F 100.0 F 100.0 F Pulse Rate 85 84 84 Respiratory 16 Rate Blood Pressure 76/37 93/42 (mmHg) O2 Sat by Pulse 95 96 95 Oximetry 08/10/19 08/10/19 08/10/19 10:16 10:31 10:46 Temperature 100.0 F 100.0 F 100.0 F Pulse Rate 83 85 84 Respiratory Rate Blood Pressure 94/46 98/48 112/67 (mmHg) O2 Sat by Pulse 96 96 96 Oximetry 08/10/19 08/10/19 08/10/19 11:00 11:01 11:16 Temperature 100.0 F 100.0 F 100.2 F Pulse Rate 86 85 87 Respiratory 21 Rate Blood Pressure 117/47 98/53 (mmHg) O2 Sat by Pulse 95 95 95 Oximetry 08/10/19 08/10/19 08/10/19 11:31 11:46 12:00 Temperature 100.2 F 100.2 F 100.0 F Pulse Rate 84 83 80 Respiratory 20 Rate Blood Pressure 105/55 112/46 (mmHg) O2 Sat by Pulse 95 95 96 Oximetry 08/10/19 08/10/19 08/10/19 12:01 12:16 12:31 Temperature 100.0 F 100.0 F 100.0 F Pulse Rate 80 80 84 Respiratory Rate Blood Pressure 100/56 113/71 108/64 (mmHg) O2 Sat by Pulse 96 96 96 Oximetry 08/10/19 08/10/19 08/10/19 12:46 13:00 13:01 Temperature 100.0 F 99.9 F 99.9 F Pulse Rate 80 78 78 Respiratory 15 Rate Blood Pressure 115/62 97/58 (mmHg) O2 Sat by Pulse 96 96 96 Oximetry 08/10/19 13:16 Temperature 99.9 F Pulse Rate 78 Respiratory Rate Blood Pressure 93/66 (mmHg) O2 Sat by Pulse 96 Oximetry Intake and Output Last 24 Hours 08/08/19 08/09/19 08/10/19 08/11/19 06:59 06:59 06:59 06:59 Intake Total 5106.3 4250 Output Total 1010 2535 460 Balance 4096.3 1715 -460 Weight 274 lb 7.608 oz Intake: IV Fluids 4398 2247 Heparin 131 446 NS 2167 1801 IVPB 378 786 ABX 378 ABX - CEFEPIME 178 ABX - FLAGYL 235 ABX - VANCOMYCIN 263 ABX - ZOSYN 110 Medicated IV 330.3 1217 Keppra 227 Levophed 187 215 propofol 143.3 775 Output: NG Tube Drainage Amount 300 Kaplan 910 2235 460 Residual 100 16 Fr Temperature Probe 100 Oxygen Devices in Use Now: Endotracheal Tube, Mechanical Ventilator Neurology Exam: General: Exam off Propofol X 15 minutes Obese, acutely ill, NC/AT Intubated Multiple lines in place Skin is warm, with some mild cyanosis in the toes Off Propofol with some spontaneous movements of the arms/legs, actively withdraws to pain X 4. No eye opening Downward gaze at times but will look straight ahead intermittent, no obvious gaze preference. Pupils equal and sluggish Papilledema medial aspect of the left medial optic disk DTRs: Down throughout, flexor babinski Coarse BS bilaterally RRR Abdomen obese Result Diagrams: 08/10/19 04:30 08/10/19 04:30 Microbiology and Other Data: Microbiology 08/08/19 19:31 Aerobic Blood Culture - Preliminary Blood Venous No Growth Day 1 Anaerobic Blood Culture - Preliminary No Growth Day 1 08/08/19 19:21 Aerobic Blood Culture - Preliminary Blood Venous No Growth Day 1 Anaerobic Blood Culture - Preliminary No Growth Day 1 08/09/19 12:08 Legionella Urinary Antigen - Final Urine Negative Legionella Antigen Streptococcus pneumoniae Ag Screen - Final Negative S. 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 History of ovarian vein thrombus, on Xarelto. She was seen by Neurology on 08.06.19 with a history of headache. With a history of tinnitus, empty sella and papilledema, concern for pseudotumor. Outpatient LP was ordered, which showed a pressure of 29 and she was subsequently started on Diamox. She came to the ER of 08.07.19 with headache and discharged home with continued Diamox. She was brought into the ER unresponsive on 08.08.19, multiple narcotics found in the home, no response to Narcan, concern for aspiration with vomit found in the throat, intubated for airway protection and low sats. Admitted to the ICU with AMS, given Rocephin at that time, CT showed no bleeding. Seen by neurology with concern for seizure /post-ictal, started on Keppra. It was noted that she did repond during a Propofol holiday. EEG negative for seizure like activity. She had an initial temp of 102 which has improved, today 100.2 on Cefepime and Flagyl. She remains heavily sedated on Propofol but during a brief holiday, she was moving all extremities, w/d to pain. She is scheduled for MRI/MRA/MRV today, now off Xarelto and on Heparin for the possibility of LP if needed. AMS: Differential includes: 1. Seizures/subclinical status: --On Keppra and propofol, no obvious seizure activity but did have some downward gaze. --Consdier Prolonged post-ictal phase. --Plan to wean propofol after MRI and if she does not wake up, will consider repeating EEG in am. --Increase Keppra to 1000mg bid 2. Infection: --WBC is down, fevers are improved. Concern for aspiration --BC: NGTD. Sputum culture pending --Consider LP but for now, would cover SPD TECH with Rocephin, +/-Vanc. 3. Increased pressure: --Unlikely a direct cause of MS change but could be associated with seizures, infection, pseudotumor, mass, VST. --Awaiting MRI/MRA/MRV --Consider repeat LP 4. Inflammation: --Consider carcinomatosis, vasculitis. --Awaiting MRI with contrast, MRA 5. Vascular: --Unlikely stroke but await MRI. --Consider diffuse anoxic injury, on pressures with initial hypoxia/ hypotension. --VST: MRV. --Vasculitis: MRA 6. Polypharmacy: history of drug use. --Now on propofol--may be slow to clear. --History of chronic pain, on gabapentin (unlikely cause), benadryl pre-med 7. Metabolic encephalopathy: elevated ammonia--consider Lactulose, may be shock liver. Plan: --Follow up the MRI/MRA/MRV --Add Rocephin +/- Vanc for SPD TECH coverage --Increase Keppra to 1000mg BID --Consdier repeat LP: Off Xarelto, on Heparin drip --Consider repeat EEG if no improvement off of Propofol
[2019-08-10] MEDS ORDERED: Vancomycin per Pharmacy* NOTE FOLLOW UP SCH (16:00)
[2019-08-10] MEDS ORDERED: Vancomycin(*) 1,750 MG in NS 0.9% 500 ML* 500 ML IVPB ONE (16:15)
[2019-08-10] MEDS ORDERED: fentaNYL* 50 MCG/ML 2 ML VIAL (100 MCG VIAL) ONE (17:06)
[2019-08-10] MEDS ORDERED: fentaNYL* 50 MCG/ML 2 ML VIAL (100 MCG VIAL) IV ONE (17:06)
[2019-08-10] MEDS ORDERED: Gadoteridol* (CONTRAST) 279.3 MG/ML 10 ML IV ONE (17:19)
[2019-08-10] MEDS: cefTRIAXone(*) 2 GM in NS 0.9% 100 ML* 100 ML IVPB SCH (18:41)
[2019-08-10] MEDS: Insulin LISPRO* 1 UNITS UNIT SUBCUT SCH ×3 (19:24→23:58)
[2019-08-10] MEDS: levETIRAcetam 1000MG IVPREMIX* 1,000 MG/100 ML BAG IVPB SCH (21:08)
[2019-08-10] MEDS: Pantoprazole IV* 40 MG IV SCH (21:31)
[2019-08-10] MEDS: Heparin DRIP 25,000 UNITS(*) 25,000 UNITS/500 ML BAG IV SCH (23:00)
[2019-08-11] MEDS: Propofol* 100 ML IV SCH ×9 (00:55→23:07)
[2019-08-11] MEDS: Chlorhexidine MOUTHWASH 0.12%* 15 ML UDC TOPICAL SCH ×6 (01:18→19:36)
[2019-08-11] MEDS: Insulin LISPRO* 1 UNITS UNIT SUBCUT SCH ×4 (04:04→19:29)
[2019-08-11] MEDS: cefTRIAXone(*) 2 GM in NS 0.9% 100 ML* 100 ML IVPB SCH ×2 (04:04→15:46)
[2019-08-11] MEDS: NS 0.9% 1000 ML** 1,000 ML IV SCH (04:36)
[2019-08-11] MEDS: Vancomycin(*) 1,250 MG in NS 0.9% 250 ML* 250 ML IVPB SCH ×3 (04:48→19:36)
[2019-08-11 06:15] LABS: Hematocrit 25 % (35-47); Hemoglobin 7.4 g/dL (12.0-16.0); Mean Corpuscular HGB Conc 30 g/dL (31-36); Mean Corpuscular Hemoglobin 23 pg (27-31); Mean Corpuscular Volume 78 fL (80-97); Mean Platelet Volume 9.2 fL (7.4-10.4); Platelet Count 141 10^3/uL (150-450); Red Blood Count 3.17 10^6 /uL (3.70-4.87); Red Cell Distribution Width 21 % (10-15); White Blood Count 11.6 10^3/uL (3.5-10.8)
[2019-08-11] MEDS: Hydrocortisone INJ* 100 MG/2 ML VIAL (in pyxis) IV SCH ×2 (06:15→19:29)
[2019-08-11 06:31] LABS: INR 1.21 (0.82-1.09)
[2019-08-11 06:32] LABS: Albumin 3.2 g/dL (3.2-5.2); Albumin/Globulin Ratio 1.1 (1-3); BUN/Creatinine Ratio 23.6 (8-20); Calcium 8.1 mg/dL (8.6-10.3); EGFR African American 147.4 (>60); EGFR Non-African American 121.8 (>60); Globulin 2.9 g/dL (2-4); Indirect Bilirubin 0.2 mg/dL (0.3-1.0); Magnesium 2.3 mg/dL (1.9-2.7); Phosphorus 1.5 mg/dL (2.5-5.0); Total Bilirubin 0.4 mg/dL (0.2-1.0); Total Protein 6.1 g/dL (6.4-8.9)
[2019-08-11] MEDS: Mometasone/Formoter 200/5 MDI INH SCH ×2 (07:23→20:17)
[2019-08-11] MEDS: Nystatin SUSPENSION* 100000 UNITS/ML 5 ML UDC PO SCH ×4 (08:18→21:13)
[2019-08-11] MEDS: Gabapentin CAP(*) 300 MG PO SCH ×3 (08:30→21:05)
[2019-08-11] MEDS: levETIRAcetam 1000MG IVPREMIX* 1,000 MG/100 ML BAG IVPB SCH (08:38)
[2019-08-11] MEDS ORDERED: Vancomycin Trough Check NOTE FOLLOW UP ONE (10:00)
[2019-08-11] MEDS ORDERED: Ondansetron INJ* 2 MG/ML VIAL IV ONE (11:40)
[2019-08-11] MEDS ORDERED: Ondansetron INJ* 2 MG/ML VIAL ONE (11:42)
[2019-08-11] MEDS ORDERED: NS 0.9% 1000 ML** 1,000 ML IV SCH (12:04)
--- NOTE | 2019-08-11 13:15 | PN ---
Subjective Date of Service: 08/11/19 Length of Stay: 3 Days Interval History: Patient remains sedated on Propofol. Attempted wean off propofol this am with agitation and projectile vomiting. No overt seizure activity appreciated but she has downward eye deviation. Remains intubated EEG shows some sharp waves, no seizures, no status CT/CTV pending Family History: Unchanged from Admission Social History: Unchanged from Admission Past Medical History: Unchanged from Admission Objective Active Medications: Albuterol/Ipratropium (Duoneb (Albuterol 2.5 Mg/Ipratropium 0.5 Mg)) 1 neb INH Q4H PRN PRN Reason: SOB/WHEEZING Chlorhexidine Gluconate (Peridex Mouth Wash 0.12%*) 15 ml TOPICAL Q4H [facility] Last Admin: 08/11/19 12:21 Dose: Not Given Dextrose (D50w Syringe 50 Ml*) 12.5 gm IV PUSH .FOR FS < 60 - SS PRN PRN Reason: FS < 60 Diphenhydramine HCl (Benadryl Iv*) 50 mg IV ONCE ONE Stop: 08/11/19 13:21 Fentanyl Citrate (Fentanyl*) 50 mcg IV SLOW PU Q1H PRN PRN Reason: Pain Last Admin: 08/10/19 05:14 Dose: 50 mcg Gabapentin (Neurontin Cap(*)) 600 mg PO TID [facility] Last Admin: 08/11/19 08:30 Dose: 600 mg Heparin Sodium (Porcine) (Heparin Vial(*)) 0 units IV .PER PROTOCOL [facility] Last Admin: 08/10/19 19:25 Dose: 4,000 units Hydrocortisone Sodium Succinate (Solu-Cortef*) 100 mg IV Q8H [facility] Last Admin: 08/11/19 06:15 Dose: 100 mg Heparin Sodium/Dextrose (Heparin Drip 25,000 Units(*)) 25,000 units in 500 mls @ 0 mls/hr IV PER RATE [facility]; Protocol Last Admin: 08/10/19 23:00 Dose: 31 mls/hr Norepinephrine Bitartrate (Levophed 16 Mcg/Ml Premix*) 4,000 mcg in 250 mls @ 0 mls/hr IV .PER PROTOCOL [facility]; Protocol Last Admin: 08/09/19 07:09 Dose: 30 mls/hr Propofol (Diprivan*) 100 mls @ 14.969 mls/hr IV .PER PROTOCOL [facility]; Protocol Last Admin: 08/11/19 12:53 Dose: 44.6 mls/hr Ceftriaxone Sodium 2 gm/ (Sodium Chloride) 100 mls @ 200 mls/hr IVPB Q12H [facility] Last Admin: 08/11/19 04:04 Dose: 200 mls/hr Levetiracetam (Keppra Iv Premix*) 1,000 mg in 100 mls @ 400 mls/hr IVPB Q12H [facility] Last Admin: 08/11/19 08:38 Dose: 400 mls/hr Vancomycin HCl 1,250 mg/ (Sodium Chloride) 250 mls @ 166.667 mls/hr IVPB Q8H [facility] Last Admin: 08/11/19 12:42 Dose: 166.667 mls/hr Sodium Chloride (Ns 0.9% 1000 Ml) 1,000 mls @ 75 mls/hr IV PER RATE [facility] Last Admin: 08/11/19 12:53 Dose: 75 mls/hr Insulin Human Lispro (Humalog*) 0 units SUBCUT FS Q6 ICU [facility]; Protocol Last Admin: 08/11/19 12:41 Dose: 3 units Mometasone Furoate/Formoterol Fumar (Dulera 200/5 Mdi*) 2 puff INH BID [facility]; Protocol Last Admin: 08/11/19 07:23 Dose: Not Given Nystatin (Nystatin Suspension*) 200,000 units PO QID [facility] Stop: 08/24/19 09:00 Last Admin: 08/11/19 12:21 Dose: Not Given Pantoprazole Sodium (Protonix Iv*) 40 mg IV Q24H [facility] Last Admin: 08/10/19 21:31 Dose: 40 mg Pharmacy Consult (Vancomycin Per Pharmacy*) 1 note FOLLOW UP .VANC PER PHARMACY [facility]; Protocol Pharmacy Profile Note (Vancomycin Trough Check) 1 note FOLLOW UP 1130 ONE Stop: 08/12/19 11:31 Vital Signs 08/10/19 08/10/19 08/10/19 13:16 13:30 13:46 Temperature 99.9 F 99.7 F 99.7 F Pulse Rate 78 77 77 Respiratory Rate Blood Pressure 93/66 117/57 97/60 (mmHg) O2 Sat by Pulse 96 96 96 Oximetry 01/20/20 01/20/20 01/20/20 14:00 14:01 14:16 Temperature 99.7 F 99.7 F 99.7 F Pulse Rate 77 78 77 Respiratory 17 Rate Blood Pressure 100/56 109/61 (mmHg) O2 Sat by Pulse 96 95 96 Oximetry 08/10/19 08/10/19 08/10/19 14:31 14:46 15:00 Temperature 99.7 F 99.7 F 99.7 F Pulse Rate 81 85 87 Respiratory 24 Rate Blood Pressure 95/57 93/47 (mmHg) O2 Sat by Pulse 96 95 95 Oximetry 08/10/19 08/10/19 08/10/19 15:01 15:16 15:17 Temperature 99.7 F 99.7 F 99.7 F Pulse Rate 88 89 91 Respiratory Rate Blood Pressure 91/55 88/57 106/51 (mmHg) O2 Sat by Pulse 95 98 98 Oximetry 08/10/19 08/10/19 08/10/19 15:31 15:46 16:00 Temperature 99.9 F 99.9 F 99.9 F Pulse Rate 85 86 84 Respiratory 20 Rate Blood Pressure 112/53 91/49 (mmHg) O2 Sat by Pulse 94 92 94 Oximetry 08/10/19 08/10/19 08/10/19 16:01 16:15 16:31 Temperature 99.9 F 99.9 F 99.9 F Pulse Rate 85 79 88 Respiratory Rate Blood Pressure 82/51 102/56 103/64 (mmHg) O2 Sat by Pulse 94 96 97 Oximetry 08/10/19 08/10/19 08/10/19 17:00 17:10 18:00 Temperature Pulse Rate Respiratory 24 20 17 Rate Blood Pressure (mmHg) O2 Sat by Pulse Oximetry 08/10/19 08/10/19 08/10/19 18:13 18:25 18:46 Temperature 99.9 F Pulse Rate 83 75 74 Respiratory Rate Blood Pressure 114/68 110/57 (mmHg) O2 Sat by Pulse 96 97 97 Oximetry 08/10/19 08/10/19 08/10/19 19:00 19:01 19:16 Temperature 99.7 F 99.7 F 99.5 F Pulse Rate 75 77 78 Respiratory 18 Rate Blood Pressure 98/55 102/49 (mmHg) O2 Sat by Pulse 97 97 95 Oximetry 08/10/19 08/10/19 08/10/19 19:31 19:46 20:00 Temperature 99.3 F 99.3 F 99.3 F Pulse Rate 78 78 79 Respiratory 18 Rate Blood Pressure 101/51 98/51 (mmHg) O2 Sat by Pulse 95 96 96 Oximetry 08/10/19 08/10/19 08/10/19 20:01 20:06 20:16 Temperature 99.3 F 99.1 F 99.1 F Pulse Rate 79 78 78 Respiratory Rate Blood Pressure 98/49 109/60 108/69 (mmHg) O2 Sat by Pulse 96 97 98 Oximetry 08/10/19 08/10/19 08/10/19 20:31 20:46 21:00 Temperature 99.1 F 99.1 F 99.3 F Pulse Rate 81 83 84 Respiratory 22 Rate Blood Pressure 109/70 119/81 (mmHg) O2 Sat by Pulse 99 100 98 Oximetry 08/10/19 08/10/19 08/10/19 21:01 21:15 21:31 Temperature 99.3 F 99.3 F 99.3 F Pulse Rate 84 82 80 Respiratory Rate Blood Pressure 112/78 127/79 110/68 (mmHg) O2 Sat by Pulse 99 99 98 Oximetry 08/10/19 08/10/19 08/10/19 21:46 22:00 22:01 Temperature 99.3 F 99.1 F 99.1 F Pulse Rate 80 79 80 Respiratory 18 Rate Blood Pressure 117/64 105/73 (mmHg) O2 Sat by Pulse 98 98 98 Oximetry 08/10/19 08/10/19 08/10/19 22:02 22:15 22:31 Temperature 99.1 F 99.1 F 99.1 F Pulse Rate 80 83 83 Respiratory Rate Blood Pressure 138/76 117/73 (mmHg) O2 Sat by Pulse 98 98 99 Oximetry 08/10/19 08/10/19 08/10/19 22:45 23:00 23:01 Temperature 99.1 F 99.3 F 99.3 F Pulse Rate 82 82 83 Respiratory 22 Rate Blood Pressure 124/78 124/76 (mmHg) O2 Sat by Pulse 98 98 98 Oximetry 08/10/19 08/10/19 08/10/19 23:16 23:31 23:46 Temperature 99.3 F 99.3 F 99.5 F Pulse Rate 83 84 86 Respiratory Rate Blood Pressure 132/77 139/75 140/80 (mmHg) O2 Sat by Pulse 98 97 97 Oximetry 08/11/19 08/11/19 08/11/19 00:00 00:01 00:16 Temperature 99.5 F 99.5 F 99.5 F Pulse Rate 85 86 86 Respiratory 18 Rate Blood Pressure 141/82 137/80 (mmHg) O2 Sat by Pulse 96 96 97 Oximetry 08/11/19 08/11/19 08/11/19 00:31 00:46 01:00 Temperature 99.7 F 99.7 F 99.7 F Pulse Rate 88 88 89 Respiratory 24 Rate Blood Pressure 137/81 147/80 (mmHg) O2 Sat by Pulse 97 97 98 Oximetry 08/11/19 08/11/19 08/11/19 01:01 01:16 01:31 Temperature 99.7 F 99.9 F 99.9 F Pulse Rate 89 92 90 Respiratory Rate Blood Pressure 145/81 137/88 153/82 (mmHg) O2 Sat by Pulse 98 97 97 Oximetry 08/11/19 08/11/19 08/11/19 01:46 02:00 02:01 Temperature 100.0 F 100.0 F 100.0 F Pulse Rate 93 94 93 Respiratory 24 Rate Blood Pressure 148/78 143/77 (mmHg) O2 Sat by Pulse 97 97 97 Oximetry 08/11/19 08/11/19 08/11/19 02:16 02:31 02:46 Temperature 100.0 F 100.2 F 100.2 F Pulse Rate 95 89 92 Respiratory Rate Blood Pressure 154/84 148/88 140/79 (mmHg) O2 Sat by Pulse 97 97 96 Oximetry 08/11/19 08/11/19 08/11/19 03:00 03:01 03:16 Temperature 100.2 F 100.2 F 100.2 F Pulse Rate 92 92 93 Respiratory 30 Rate Blood Pressure 150/80 151/78 (mmHg) O2 Sat by Pulse 96 96 97 Oximetry 08/11/19 08/11/19 08/11/19 03:31 03:46 04:00 Temperature 100.4 F 100.4 F 100.4 F Pulse Rate 92 92 94 Respiratory 30 Rate Blood Pressure 146/82 163/83 (mmHg) O2 Sat by Pulse 97 96 96 Oximetry 08/11/19 08/11/19 08/11/19 04:01 04:16 04:31 Temperature 100.4 F 100.4 F 100.4 F Pulse Rate 92 92 91 Respiratory Rate Blood Pressure 143/84 141/77 146/85 (mmHg) O2 Sat by Pulse 96 96 96 Oximetry 08/11/19 08/11/19 08/11/19 04:46 05:00 05:01 Temperature 100.4 F 100.4 F 100.4 F Pulse Rate 90 88 90 Respiratory 30 Rate Blood Pressure 139/78 154/78 (mmHg) O2 Sat by Pulse 97 96 96 Oximetry 08/11/19 08/11/19 08/11/19 05:16 05:31 05:46 Temperature 100.4 F 100.4 F 100.2 F Pulse Rate 88 88 85 Respiratory Rate Blood Pressure 145/78 131/82 141/75 (mmHg) O2 Sat by Pulse 96 96 97 Oximetry 08/11/19 08/11/19 08/11/19 06:00 06:01 06:16 Temperature 100.4 F 100.4 F 100.2 F Pulse Rate 86 85 86 Respiratory 30 Rate Blood Pressure 145/72 143/74 (mmHg) O2 Sat by Pulse 96 96 97 Oximetry 08/11/19 08/11/19 08/11/19 06:31 06:46 07:00 Temperature 100.0 F 100.0 F 99.9 F Pulse Rate 86 85 83 Respiratory 27 Rate Blood Pressure 141/75 139/75 (mmHg) O2 Sat by Pulse 97 97 97 Oximetry 08/11/19 08/11/19 08/11/19 07:01 07:16 07:31 Temperature 99.9 F 99.9 F 99.9 F Pulse Rate 82 83 83 Respiratory Rate Blood Pressure 144/78 146/75 150/74 (mmHg) O2 Sat by Pulse 97 97 97 Oximetry 08/11/19 08/11/19 08/11/19 07:46 08:00 08:01 Temperature 99.9 F 99.9 F 99.9 F Pulse Rate 83 83 85 Respiratory 25 Rate Blood Pressure 135/81 147/80 (mmHg) O2 Sat by Pulse 97 96 96 Oximetry 08/11/19 08/11/19 08/11/19 08:16 08:31 08:46 Temperature 100.0 F 100.0 F 100.0 F Pulse Rate 82 83 88 Respiratory Rate Blood Pressure 146/81 145/80 147/83 (mmHg) O2 Sat by Pulse 96 96 97 Oximetry 08/11/19 08/11/19 08/11/19 09:00 09:01 09:16 Temperature 100.0 F 100.0 F 100.0 F Pulse Rate 84 86 86 Respiratory 28 Rate Blood Pressure 146/79 140/79 (mmHg) O2 Sat by Pulse 97 97 96 Oximetry 08/11/19 08/11/19 08/11/19 09:31 09:46 10:00 Temperature 100.0 F 100.2 F 100.2 F Pulse Rate 85 88 90 Respiratory 33 Rate Blood Pressure 159/84 151/82 (mmHg) O2 Sat by Pulse 96 96 98 Oximetry 08/11/19 08/11/19 08/11/19 10:01 10:16 10:31 Temperature 100.2 F 100.2 F 100.2 F Pulse Rate 88 89 87 Respiratory Rate Blood Pressure 157/75 158/73 157/85 (mmHg) O2 Sat by Pulse 98 100 100 Oximetry 08/11/19 08/11/19 08/11/19 10:46 11:00 11:01 Temperature 100.4 F 100.4 F 100.4 F Pulse Rate 92 87 83 Respiratory 28 Rate Blood Pressure 154/72 149/84 (mmHg) O2 Sat by Pulse 99 98 100 Oximetry 08/11/19 08/11/19 11:16 12:00 Temperature 100.2 F Pulse Rate 85 79 Respiratory 27 Rate Blood Pressure 142/70 (mmHg) O2 Sat by Pulse 95 99 Oximetry Intake and Output Last 24 Hours 08/09/19 08/10/19 08/11/19 08/12/19 06:59 06:59 06:59 06:59 Intake Total 5106.3 4250 6358 Output Total 1010 2535 1490 720 Balance 4096.3 1715 4868 -720 Weight 274 lb 7.608 oz 273 lb 2.444 oz Intake: IV Fluids 4398 2247 2784 Heparin 131 446 635 NS 2167 1801 2149 IVPB 798 786 1382 ABX 378 ABX - CEFEPIME 178 194 ABX - CEFTRIAXONE 111 ABX - FLAGYL 235 ABX - VANCOMYCIN 263 864 ABX - ZOSYN 110 Potassium Phosphate 276 Medicated IV 330.3 1217 972 Keppra 227 254 Levophed 187 215 11 propofol 143.3 775 707 Tube Feeding 897 Tube Feeding Flush Amount 260 Output: NG Tube Drainage Amount 300 Kaplan 910 2235 1490 720 Residual 100 16 Fr Temperature Probe 100 Oxygen Devices in Use Now: Endotracheal Tube, Mechanical Ventilator Neurology Exam: General: Off Propofol 20 min Well nourished, well developed, obese HEENT: Normocephalic/atraumatic, sclera anicteric,intubated Neck: Supple Chest: Clear to auscultation bilaterally Cardiovascular: Regular rate and rhythm without murmurs, rubs, gallops Abdomen: Soft Extremities: No clubbing, edema. Mild cyanosis right toes Neurological Findings: Heavily sedated but does attempt to open eyes to loud voice. Purposeful movements, pulling at lines. Not following commands Intubated PERRL, sluggish Downward gaze preference is resolved off propofol Face appear symmetric Moving all extremities to pain, w/d DTRs down throughout No tremors/seizure like movements Dolls positive Result Diagrams: 08/11/19 05:30 08/11/19 05:30 Microbiology and Other Data: Microbiology 08/08/19 19:31 Aerobic Blood Culture - Preliminary Blood Venous No Growth Day 1 Anaerobic Blood Culture - Preliminary No Growth Day 1 08/08/19 19:21 Aerobic Blood Culture - Preliminary Blood Venous No Growth Day 1 Anaerobic Blood Culture - Preliminary No Growth Day 1 08/09/19 12:08 Legionella Urinary Antigen - Final Urine Negative Legionella Antigen Streptococcus pneumoniae Ag Screen - Final Negative S. 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 History of ovarian vein thrombus, on Xarelto. She was seen by Neurology on 08.06.19 with a history of headache. With a history of tinnitus, empty sella and papilledema, concern for pseudotumor. Outpatient LP was ordered, which showed a pressure of 29 and she was subsequently started on Diamox. She came to the ER of 08.07.19 with headache and discharged home with continued Diamox. She was brought into the ER unresponsive on 08.08.19, multiple narcotics found in the home, no response to Narcan, concern for aspiration with vomit found in the throat, intubated for airway protection and low sats. Admitted to the ICU with AMS, given Rocephin at that time, CT showed no bleeding. Seen by neurology with concern for seizure /post-ictal, started on Keppra. It was noted that she did repond during a Propofol holiday. EEG negative for seizure like activity. She had an initial temp of 102 which has improved, today 100.2 on Cefepime and Flagyl. She remains heavily sedated on Propofol but during a brief holiday, she was moving all extremities, w/d to pain. She is scheduled for MRI/MRA/MRV today, now off Xarelto and on Heparin for the possibility of LP if needed. Overnight, she remained intubated on Propofol. She became agitated and had 3 episodes of projective vomiting on Propofol 20. Now off Propofol X 20 minutes and beginning to wake up with some purposeful movements, eye opening, no further downward eye deviation AMS: Differential includes: 1. Seizures/subclinical status: EEG shows slowing with epileptiform activity. Will increase Keppra to 1250mg IV bid --Watch for seizure activity, repeat EEG as necessary. Can load Phosphenytoin for any overt seizures 2. Infection: --WBC continues to trend down. Low grade fevers --Cultures negative --On broad spectrum [employer] coverage. --Consider LP if she worsens clinically 3. Increased pressure: --R/O bleed, herniation with CT --Could be causing vomiting and eye deviation --Considering LP if clinically worsens 4. Inflammation: --Consider carcinomatosis, vasculitis. 5. Vascular: --Unlikely stroke, no obvious MRI changes to suggest large stroke --Consider diffuse anoxic injury, previously hypotensive and hypoxic --CTV to rule out VST 6. Polypharmacy: history of drug use. --Wean Proprofol as tolerated --Recently given Bendaryl pre-med --She has been on gabapentin chronically. In light of possible seizure activity , I would not d/c this 7. Metabolic encephalopathy: --elevated LFTs/ammonia--consider Lactulose --Replace electrolytes as necessary Plan: --CT/CTV --Continue to wean propofol --Monitor clinical status, consider LP --Increase Keppra to 1250mg IV BID given epileptiform discharges on EEG I spent 60 minutes of critical care time with the patient
[2019-08-11] MEDS ORDERED: diPHENhydraMINE IV* 50 MG/ML 1 ml VIAL (BENADRYL) IV ONE (13:20)
[2019-08-11] MEDS ORDERED: Iohexol 350* (CONTRAST) 500 ML MDV IV ONE (13:56)
[2019-08-11] MEDS ORDERED: levETIRAcetam 1000MG IVPREMIX* 1,000 MG/100 ML BAG IVPB SCH (14:00)
[2019-08-11] MEDS ORDERED: Iodixanol* (CONTRAST) 320 MG/ML 100 ML SDV IV ONE (14:01)
--- NOTE | 2019-08-11 15:42 | PN ---
Date of Service: 08/11/19 Critical Care Services: While wening propofol sedation this AM, patient developed projectile vomiting, associated with downward deviation of the eyes. EEG and CT scan of the head were both unrevealing. Vomiting and eye deviation have subsided. Patient also responsds somewhat to verbal commands when the propofol is held. Vital Signs: Temp Pulse Resp BP SpO2 FiO2 98.2 F 78 25 132/71 100 35 Physical Exam: Gen:Sedated and intubated HEENT: Eyes looking forward Lungs: rhonchi Cardiac: No murmurs Abdomen: Not distended Extremities: 3+ edema Neuro: Moves all extremities Fluid Balance (Past 24 Hours): 08/09/19 08/10/19 08/11/19 06:59 06:59 06:59 Intake Total 5106.3 4250 6358 Output Total 1010 2535 1490 Balance 4096.3 1715 4868 Weight 274 lb 7.608 oz 273 lb 2.444 oz Intake: IV Fluids 4398 2247 2784 Heparin 131 446 635 NS 2167 1801 2149 IVPB 407 191 3903 ABX 378 ABX - CEFEPIME 178 194 ABX - CEFTRIAXONE 111 ABX - FLAGYL 235 ABX - VANCOMYCIN 263 864 ABX - ZOSYN 110 Potassium Phosphate 276 Medicated IV 330.3 1217 972 Keppra 227 254 Levophed 187 215 11 propofol 143.3 775 707 Tube Feeding 897 Tube Feeding Flush Amount 260 Output: NG Tube Drainage Amount 300 Kaplan 910 2235 1490 Residual 100 16 Fr Temperature Probe 100 Labs: Laboratory Results - last 24 hr 08/10/19 08/10/19 08/11/19 18:00 18:49 01:20 WBC RBC Hgb Hct MCV MCH MCHC RDW Plt Count MPV INR (Anticoag Therapy) APTT 33.0 79.6 H Sodium Potassium Chloride Carbon Dioxide Anion Gap BUN Creatinine Est GFR ( Amer) Est GFR (Non-Af Amer) BUN/Creatinine Ratio Glucose POC Glucose (mg/dL) 147 H Calcium Phosphorus Magnesium Total Bilirubin Direct Bilirubin Indirect Bilirubin AST ALT Alkaline Phosphatase Total Protein Albumin Globulin Albumin/Globulin Ratio 08/11/19 08/11/19 08/11/19 03:48 05:30 05:30 WBC 11.6 H RBC 3.17 L Hgb 7.4 L Hct 25 L MCV 78 L MCH 23 L MCHC 30 L RDW 21 H Plt Count 141 L MPV 9.2 INR (Anticoag Therapy) APTT Sodium 143 Potassium 3.0 L Chloride 112 H Carbon Dioxide 21 L Anion Gap 10 BUN 13 Creatinine 0.55 Est GFR ( Amer) 147.4 Est GFR (Non-Af Amer) 121.8 BUN/Creatinine Ratio 23.6 H Glucose 168 H POC Glucose (mg/dL) 214 H Calcium 8.1 L Phosphorus 1.5 L Magnesium 2.3 Total Bilirubin 0.40 Direct Bilirubin 0.20 H Indirect Bilirubin 0.2 L AST 128 H ALT 100 H Alkaline Phosphatase 109 H Total Protein 6.1 L Albumin 3.2 Globulin 2.9 Albumin/Globulin Ratio 1.1 08/11/19 08/11/19 08/11/19 05:30 07:36 12:36 WBC RBC Hgb Hct MCV MCH MCHC RDW Plt Count MPV INR (Anticoag Therapy) 1.21 H APTT 58.1 H Sodium Potassium Chloride Carbon Dioxide Anion Gap BUN Creatinine Est GFR ( Amer) Est GFR (Non-Af Amer) BUN/Creatinine Ratio Glucose POC Glucose (mg/dL) 181 H Calcium Phosphorus Magnesium Total Bilirubin Direct Bilirubin Indirect Bilirubin AST ALT Alkaline Phosphatase Total Protein Albumin Globulin Albumin/Globulin Ratio Studies: CT scan and EEG - as mentioned. Also CXR: no infiltrates Nutrition: Tube feedings being held. Impression: Still unclear about underlying problem. Most likely problem is the intracranial hypertension at this point. Is also very fluid positive, which is not helping. There was some awakening today, which is encouraging. Plan: 1. Cut back on IV fluids and give furosemide. 2. Switch from propofol to Precedex. 3. Hold tube feedings overnight 4. Consider LP if not responsive tomorrow AM Critical Care Time: 60 minutes
[2019-08-11] MEDS ORDERED: Furosemide IV* 10 MG/ML VIAL (40 MG) IV SLOW PU ONE (16:09)
--- NOTE | 2019-08-11 16:13 | EEG ---
YELECTROENCEPHALOGRAPHY: DATE OF STUDY: - ROOM #ICU-05 DATE OF DICTATION: 08/11/19 PATIENT OF: Dr. Musa and Dr. Urbina. CLINICAL PROBLEM: This is a 43-year-old woman being reevaluated for possible seizures, on propofol and intubated after being found at home unresponsive by her son. She, of note, has known metastatic breast cancer to the brain. MEDICATIONS: Include: 1. Gabapentin. 2. Ondansetron. 3. Hydrocodone. 4. Ceftriaxone. 5. . 6. Vancomycin. 7. Keppra. 8. Fentanyl. 9. Levophed. 10. Heparin. 11. Propofol that was stopped during this tracing. REPORT: With the patient on full dose of propofol, background consists of diffuse irregular delta and theta activity of moderate amplitude. At times, there were some periods of relative attenuation that last 1 to 2 seconds. After the propofol was stopped, there is sharp activity that appears bilaterally , and as the propofol stopped, there is increasing frequency of the sharp activity occurring at frequency of 2 Hz, but usually it occurs episodically but every several seconds. As the patient gets further away after the propofol was stopped, background consists primarily of theta range frequencies with even some alpha activity as opposed to the delta activity she had initially. No clearcut subclinical seizures were noted. CLINICAL IMPRESSION: This EEG done with the patient on respirator, initially comatose on a propofol drip, changes over time and has faster rhythms as she appears to wake up from the propofol. Of note, there are some generalized sharp activities that suggest a tendency towards seizures that have become more frequent the longer she is off the propofol, but there are not clear subclinical seizures noted on this tracing. This EEG was called to Dr. Urbina. [id number]/[facility] #: [id number] [facility]
[2019-08-11] MEDS: NS 0.9% IVPB SCH (21:13)
[2019-08-11] MEDS: Pantoprazole IV* 40 MG IV SCH (21:13)
[2019-08-11] MEDS: LEVETIRACETAM IVPB SCH (21:13)
[2019-08-12] MEDS: Chlorhexidine MOUTHWASH 0.12%* 15 ML UDC TOPICAL SCH ×6 (00:24→15:35)
[2019-08-12] MEDS: Insulin LISPRO* 1 UNITS UNIT SUBCUT SCH ×4 (00:42→18:34)
[2019-08-12] MEDS: Propofol* 100 ML IV SCH ×4 (00:47→07:34)
[2019-08-12] MEDS: cefTRIAXone(*) 2 GM in NS 0.9% 100 ML* 100 ML IVPB SCH ×2 (04:01→15:39)
[2019-08-12] MEDS: Vancomycin(*) 1,250 MG in NS 0.9% 250 ML* 250 ML IVPB SCH ×3 (04:49→19:48)
[2019-08-12 05:09] LABS: Hematocrit 23 % (35-47); Hemoglobin 7.5 g/dL (12.0-16.0); Mean Corpuscular HGB Conc 32 g/dL (31-36); Mean Corpuscular Hemoglobin 24 pg (27-31); Mean Corpuscular Volume 76 fL (80-97); Mean Platelet Volume 8.7 fL (7.4-10.4); Platelet Count 111 10^3/uL (150-450); Red Blood Count 3.07 10^6 /uL (3.70-4.87); Red Cell Distribution Width 21 % (10-15); White Blood Count 7.7 10^3/uL (3.5-10.8)
[2019-08-12 05:17] LABS: Activated Partial Thrombo Time 32.8 seconds (26.0-38.0); INR 1.21 (0.82-1.09)
[2019-08-12 05:24] LABS: EGFR African American 212.8 (>60); EGFR Non-African American 175.9 (>60); Magnesium 2.1 mg/dL (1.9-2.7); Phosphorus 2.3 mg/dL (2.5-5.0)
[2019-08-12 05:27] LABS: Potassium 2.6 mmol/L (3.5-5.0)
[2019-08-12] MEDS: KCL 10 MEQ/50 ML IVPREMIX* 10 MEQ/50 ML BAG IV SCH ×4 (06:03→10:00)
[2019-08-12] MEDS: Mometasone/Formoter 200/5 MDI INH SCH ×2 (07:00→19:29)
--- NOTE | 2019-08-12 08:04 | PN ---
Subjective Date of Service: 08/12/19 Length of Stay: 4 Days Interval History: Overnight, she had spontaneous movement, reported left side more than right. Her propofol was increased to 80 overnight and she has remained calm and sedated. No seizure activity reported. No further episodes of vomiting. Family History: Unchanged from Admission Social History: Unchanged from Admission Past Medical History: Unchanged from Admission Objective Active Medications: Albuterol/Ipratropium (Duoneb (Albuterol 2.5 Mg/Ipratropium 0.5 Mg)) 1 neb INH Q4H PRN PRN Reason: SOB/WHEEZING Chlorhexidine Gluconate (Peridex Mouth Wash 0.12%*) 15 ml TOPICAL Q4H [facility] Last Admin: 08/12/19 04:49 Dose: 15 ml Dextrose (D50w Syringe 50 Ml*) 12.5 gm IV PUSH .FOR FS < 60 - SS PRN PRN Reason: FS < 60 Fentanyl Citrate (Fentanyl*) 50 mcg IV SLOW PU Q1H PRN PRN Reason: Pain Last Admin: 08/10/19 05:14 Dose: 50 mcg Gabapentin (Neurontin Cap(*)) 600 mg PO TID [facility] Last Admin: 08/11/19 21:05 Dose: Not Given Heparin Sodium (Porcine) (Heparin Vial(*)) 0 units IV .PER PROTOCOL [facility] Last Admin: 08/10/19 19:25 Dose: 4,000 units Heparin Sodium/Dextrose (Heparin Drip 25,000 Units(*)) 25,000 units in 500 mls @ 0 mls/hr IV PER RATE [facility]; Protocol Last Admin: 08/10/19 23:00 Dose: 31 mls/hr Norepinephrine Bitartrate (Levophed 16 Mcg/Ml Premix*) 4,000 mcg in 250 mls @ 0 mls/hr IV .PER PROTOCOL [facility]; Protocol Last Admin: 08/09/19 07:09 Dose: 30 mls/hr Propofol (Diprivan*) 100 mls @ 14.969 mls/hr IV .PER PROTOCOL [facility]; Protocol Last Admin: 08/12/19 07:34 Dose: 59.5 mls/hr Ceftriaxone Sodium 2 gm/ (Sodium Chloride) 100 mls @ 200 mls/hr IVPB Q12H [facility] Last Admin: 08/12/19 04:01 Dose: 200 mls/hr Vancomycin HCl 1,250 mg/ (Sodium Chloride) 250 mls @ 166.667 mls/hr IVPB Q8H [facility] Last Admin: 08/12/19 04:49 Dose: 166.667 mls/hr Levetiracetam 1,250 mg/ Sodium (Chloride) 112.5 mls @ 450 mls/hr IVPB Q12H [facility] Last Admin: 08/11/19 21:13 Dose: 450 mls/hr Potassium Chloride (Potassium Chloride 10 Meq/50 Ml Ivpremix*) 10 meq in 50 mls @ 50 mls/hr IV Q1H [facility] Stop: 08/12/19 09:59 Last Admin: 08/12/19 07:35 Dose: 50 mls/hr Insulin Human Lispro (Humalog*) 0 units SUBCUT FS Q6 ICU [facility]; Protocol Last Admin: 08/12/19 06:03 Dose: Not Given Mometasone Furoate/Formoterol Fumar (Dulera 200/5 Mdi*) 2 puff INH BID [facility]; Protocol Last Admin: 08/12/19 07:00 Dose: Not Given Nystatin (Nystatin Suspension*) 200,000 units PO QID [facility] Stop: 08/24/19 09:00 Last Admin: 08/11/19 21:13 Dose: 200,000 units Pantoprazole Sodium (Protonix Iv*) 40 mg IV Q24H [facility] Last Admin: 08/11/19 21:13 Dose: 40 mg Pharmacy Consult (Vancomycin Per Pharmacy*) 1 note FOLLOW UP .VANC PER PHARMACY [facility]; Protocol Pharmacy Profile Note (Vancomycin Trough Check) 1 note FOLLOW UP 1130 ONE Stop: 08/12/19 11:31 Vital Signs 08/11/19 08/11/19 08/11/19 08:00 08:01 08:16 Temperature 99.9 F 99.9 F 100.0 F Pulse Rate 83 85 82 Respiratory 25 Rate Blood Pressure 147/80 146/81 (mmHg) O2 Sat by Pulse 96 96 96 Oximetry 08/11/19 08/11/19 08/11/19 08:31 08:46 09:00 Temperature 100.0 F 100.0 F 100.0 F Pulse Rate 83 88 84 Respiratory 28 Rate Blood Pressure 145/80 147/83 (mmHg) O2 Sat by Pulse 96 97 97 Oximetry 08/11/19 08/11/19 08/11/19 09:01 09:16 09:31 Temperature 100.0 F 100.0 F 100.0 F Pulse Rate 86 86 85 Respiratory Rate Blood Pressure 146/79 140/79 159/84 (mmHg) O2 Sat by Pulse 97 96 96 Oximetry 08/11/19 08/11/19 08/11/19 09:46 10:00 10:01 Temperature 100.2 F 100.2 F 100.2 F Pulse Rate 88 90 88 Respiratory 33 Rate Blood Pressure 151/82 157/75 (mmHg) O2 Sat by Pulse 96 98 98 Oximetry 08/11/19 08/11/19 08/11/19 10:16 10:31 10:46 Temperature 100.2 F 100.2 F 100.4 F Pulse Rate 89 87 92 Respiratory Rate Blood Pressure 158/73 157/85 154/72 (mmHg) O2 Sat by Pulse 100 100 99 Oximetry 08/11/19 08/11/19 08/11/19 11:00 11:01 11:16 Temperature 100.4 F 100.4 F 100.2 F Pulse Rate 87 83 85 Respiratory 28 Rate Blood Pressure 149/84 142/70 (mmHg) O2 Sat by Pulse 98 100 95 Oximetry 08/11/19 08/11/19 08/11/19 12:00 12:46 13:00 Temperature 99.5 F Pulse Rate 79 74 74 Respiratory 27 25 Rate Blood Pressure 133/70 (mmHg) O2 Sat by Pulse 99 100 99 Oximetry 08/11/19 08/11/19 08/11/19 13:01 13:16 13:31 Temperature 99.5 F 99.5 F 99.5 F Pulse Rate 75 80 79 Respiratory Rate Blood Pressure 137/75 131/73 137/75 (mmHg) O2 Sat by Pulse 100 100 100 Oximetry 08/11/19 08/11/19 08/11/19 13:46 14:00 14:01 Temperature 99.5 F 99.5 F 99.5 F Pulse Rate 78 79 77 Respiratory 25 Rate Blood Pressure 141/84 140/79 (mmHg) O2 Sat by Pulse 100 100 100 Oximetry 08/11/19 08/11/19 08/11/19 14:38 14:46 15:00 Temperature 97.9 F 98.2 F 98.8 F Pulse Rate 81 78 76 Respiratory 26 Rate Blood Pressure 129/70 132/71 (mmHg) O2 Sat by Pulse 100 100 100 Oximetry 08/11/19 08/11/19 08/11/19 15:01 15:16 15:31 Temperature 98.8 F 98.8 F 98.8 F Pulse Rate 78 77 80 Respiratory Rate Blood Pressure 131/67 134/72 132/72 (mmHg) O2 Sat by Pulse 100 100 99 Oximetry 08/11/19 08/11/19 08/11/19 15:46 16:00 16:01 Temperature 98.8 F 99.0 F 99.0 F Pulse Rate 76 80 81 Respiratory 21 Rate Blood Pressure 130/72 131/73 (mmHg) O2 Sat by Pulse 100 100 100 Oximetry 08/11/19 08/11/19 08/11/19 16:16 16:31 16:46 Temperature 99.0 F 99.0 F 98.8 F Pulse Rate 76 76 76 Respiratory Rate Blood Pressure 127/70 133/70 132/72 (mmHg) O2 Sat by Pulse 100 100 100 Oximetry 08/11/19 08/11/19 08/11/19 17:00 17:01 17:16 Temperature 98.8 F 98.8 F 99.0 F Pulse Rate 77 76 78 Respiratory 24 Rate Blood Pressure 140/76 133/80 (mmHg) O2 Sat by Pulse 100 100 100 Oximetry 08/11/19 08/11/19 08/11/19 17:31 17:46 18:00 Temperature 99.1 F 99.1 F 99.1 F Pulse Rate 78 76 77 Respiratory 24 Rate Blood Pressure 138/73 140/69 (mmHg) O2 Sat by Pulse 100 99 99 Oximetry 08/11/19 08/11/19 08/11/19 18:01 18:16 18:31 Temperature 99.1 F 99.3 F 99.3 F Pulse Rate 77 78 75 Respiratory Rate Blood Pressure 134/65 133/70 132/69 (mmHg) O2 Sat by Pulse 99 100 99 Oximetry 08/11/19 08/11/19 08/11/19 18:46 19:00 19:01 Temperature 99.3 F 99.3 F 99.3 F Pulse Rate 75 77 75 Respiratory 25 Rate Blood Pressure 133/73 135/69 (mmHg) O2 Sat by Pulse 100 100 99 Oximetry 08/11/19 08/11/19 08/11/19 19:16 19:31 19:46 Temperature 99.3 F 99.5 F 99.7 F Pulse Rate 74 79 76 Respiratory Rate Blood Pressure 135/73 135/103 125/59 (mmHg) O2 Sat by Pulse 100 100 98 Oximetry 08/11/19 08/11/19 08/11/19 20:00 20:01 20:17 Temperature 99.7 F 99.7 F Pulse Rate 81 80 79 Respiratory 26 16 Rate Blood Pressure 113/73 (mmHg) O2 Sat by Pulse 98 100 100 Oximetry 08/11/19 08/11/19 08/11/19 20:31 21:00 21:01 Temperature 99.7 F 99.9 F 99.9 F Pulse Rate 78 75 75 Respiratory 23 Rate Blood Pressure 143/73 134/72 (mmHg) O2 Sat by Pulse 99 99 98 Oximetry 08/11/19 08/11/19 08/11/19 21: 22:00 22:01 Temperature 99.7 F 99.9 F 99.9 F Pulse Rate 74 77 75 Respiratory 22 Rate Blood Pressure 122/59 127/62 (mmHg) O2 Sat by Pulse 99 99 98 Oximetry 08/11/19 08/11/19 08/11/19 22:31 23:00 23:01 Temperature 99.7 F 99.3 F 99.3 F Pulse Rate 77 82 83 Respiratory 20 Rate Blood Pressure 136/73 140/76 (mmHg) O2 Sat by Pulse 99 99 100 Oximetry 08/11/19 08/12/19 08/12/19 23:31 00:00 00:01 Temperature 99.3 F 99.3 F 99.3 F Pulse Rate 81 76 77 Respiratory 20 Rate Blood Pressure 138/74 133/74 (mmHg) O2 Sat by Pulse 98 97 97 Oximetry 08/12/19 08/12/19 08/12/19 00:31 01:00 01:01 Temperature 99.3 F 99.3 F 99.3 F Pulse Rate 79 77 79 Respiratory 22 Rate Blood Pressure 137/69 132/73 (mmHg) O2 Sat by Pulse 97 96 96 Oximetry 08/12/19 08/12/19 08/12/19 01:31 02:00 02:01 Temperature 99.5 F 99.5 F 99.5 F Pulse Rate 79 78 77 Respiratory 22 Rate Blood Pressure 128/73 132/72 (mmHg) O2 Sat by Pulse 96 95 96 Oximetry 08/12/19 08/12/19 08/12/19 02:31 03:00 03:01 Temperature 99.5 F 99.5 F 99.5 F Pulse Rate 78 82 81 Respiratory 23 Rate Blood Pressure 137/75 127/71 (mmHg) O2 Sat by Pulse 95 92 95 Oximetry 08/12/19 08/12/19 08/12/19 03:31 03:54 04:00 Temperature 99.5 F 99.3 F 99.3 F Pulse Rate 80 78 76 Respiratory 19 Rate Blood Pressure 126/75 151/74 (mmHg) O2 Sat by Pulse 97 97 96 Oximetry 08/12/19 08/12/19 08/12/19 04:01 04:31 05:00 Temperature 99.3 F 99.3 F 99.5 F Pulse Rate 77 78 74 Respiratory 21 Rate Blood Pressure 138/75 136/76 (mmHg) O2 Sat by Pulse 96 95 96 Oximetry 08/12/19 08/12/19 08/12/19 05:01 05:31 06:00 Temperature 99.5 F 99.7 F 99.9 F Pulse Rate 74 77 77 Respiratory 25 Rate Blood Pressure 130/67 153/74 (mmHg) O2 Sat by Pulse 97 95 97 Oximetry 08/12/19 06:01 Temperature 99.9 F Pulse Rate 77 Respiratory Rate Blood Pressure 140/74 (mmHg) O2 Sat by Pulse 97 Oximetry Intake and Output Last 24 Hours 08/10/19 08/11/19 08/12/19 08/13/19 06:59 06:59 06:59 06:59 Intake Total 4250 6358 2516 Output Total 2535 1490 4415 175 Balance 1715 4868 -1899 -175 Weight 273 lb 2.444 oz 265 lb 6.985 oz Intake: IV Fluids 2247 2784 516 Heparin 446 635 166 NS 1801 2149 350 IVPB 786 1445 997 ABX - CEFEPIME 178 194 ABX - CEFTRIAXONE 111 210 ABX - FLAGYL 235 ABX - VANCOMYCIN 263 864 787 ABX - ZOSYN 110 Potassium Phosphate 276 Medicated IV 2205 476 8775 Keppra 227 254 173 Levophed 215 11 propofol 775 707 830 Tube Feeding 897 Tube Feeding Flush Amount 260 Output: NG Tube Drainage Amount 300 Kaplan 2235 1490 4415 175 Oxygen Devices in Use Now: Mechanical Ventilator Neurology Exam: General: Well nourished, obese, sedated on propofol NC/AT, sclera anicteric Intubated Neck is supple RRR, no M/G/R Abdomen: obese, Distended Ext: No significant edema, no significant cyanosis Sedated Downward gaze, PERRL, sluggish, no significant nystagmus No spontaneous movement but w/d to pain in the LEs bilaterally. DTRs: Down throughout No tremors or myoclonus appreciated +Gag Negative Dolls Result Diagrams: 08/12/19 05:00 08/12/19 05:00 Microbiology and Other Data: Microbiology 08/08/19 19:31 Aerobic Blood Culture - Preliminary Blood Venous No Growth Day 1 Anaerobic Blood Culture - Preliminary No Growth Day 1 08/08/19 19:21 Aerobic Blood Culture - Preliminary Blood Venous No Growth Day 1 Anaerobic Blood Culture - Preliminary No Growth Day 1 08/09/19 12:08 Legionella Urinary Antigen - Final Urine Negative Legionella Antigen Streptococcus pneumoniae Ag Screen - Final Negative S. 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 History of ovarian vein thrombus, on Xarelto. She was seen by Neurology on 08.06.19 with a history of headache. With a history of tinnitus, empty sella and papilledema, concern for pseudotumor. Outpatient LP was ordered, which showed a pressure of 29 and she was subsequently started on Diamox. She came to the ER of 08.07.19 with headache and discharged home with continued Diamox. She was brought into the ER unresponsive on 08.08.19, multiple narcotics found in the home, no response to Narcan, concern for aspiration with vomit found in the throat, intubated for airway protection and low sats. Admitted to the ICU with AMS, given Rocephin at that time, CT showed no bleeding. Seen by neurology with concern for seizure /post-ictal, started on Keppra. It was noted that she did repond during a Propofol holiday. EEG negative for seizure like activity. She had an initial temp of 102 which has improved, today 100.2 on Cefepime and Flagyl. She remains heavily sedated on Propofol but during a brief holiday, she was moving all extremities, w/d to pain. Repeat EEG yesterday showed no seizure but as the propofol was weaned there was some sharp activity. Keppra was increased to 1250mg bid. CT/CTV showed no acute issues. Remained sedated on propofol overnight. Currently Heparin is being held for possible LP AMS: Differential includes: 1. Seizures/subclinical status: EEG shows slowing with epileptiform activity. Continue Keppra --Downward gaze yesterday not associated with seizure activity --Consider repeat EEG if clinical worsening or seizure activity 2. Infection: --WBC has normalized --Cultures negative --Felicita in sputum --On broad spectrum [employer] coverage. 3. Increased pressure: Likely Pseudotumor --CT/CTV shows no bleeding or VST --Diuresing with Furosemide. Currently off Acetazolamide --Considering LP if clinically worsens 4. Inflammation: --Consider carcinomatosis, vasculitis--Unlikely 5. Vascular: --Unlikely stroke, no obvious MRI changes to suggest large stroke, CT negative --Consider diffuse anoxic injury, previously hypotensive and hypoxic 6. Polypharmacy: history of drug use. --Wean Proprofol as tolerated. Currently off --She has been on gabapentin chronically. In light of possible seizure activity , I would not d/c this as it is unlikely affecting mental status 7. Metabolic encephalopathy: --elevated LFTs/ammonia--consider Lactulose. Recheck LFTs, Ammonia --Replace electrolytes as necessary --watch potassium, replaced this am Plan: --Monitor off Propofol, Precedex as necessary --Consider LP if no improvement --Consider repeat EEG if no improvement or seizure like activity --Continue Keppra 1250mg BID, will increase as necessary I spent 60 minutes of critical care time with the patient
[2019-08-12] MEDS: Gabapentin CAP(*) 300 MG PO SCH ×3 (08:35→20:34)
[2019-08-12] MEDS: LEVETIRACETAM IVPB SCH ×2 (08:36→21:49)
[2019-08-12] MEDS: NS 0.9% IVPB SCH ×2 (08:36→21:49)
[2019-08-12] MEDS: Nystatin SUSPENSION* 100000 UNITS/ML 5 ML UDC PO SCH ×5 (08:36→21:49)
[2019-08-12] MEDS ORDERED: Furosemide IV* 10 MG/ML VIAL (40 MG) IV SLOW PU ONE (09:12)
--- NOTE | 2019-08-12 10:27 | PN ---
Progress Note - Progress Note Date of Service: 08/12/19 SOAP: Subjective: off propofol. shakes her head yes to questions if she is in pain, but not following commands. Objective: Vital Signs Temp Pulse Resp BP Pulse Ox 99.3 F 82 15 152/79 100 08/12/19 09:01 08/12/19 09:01 08/12/19 09:00 08/12/19 09:01 08/12/19 09:01 intubated, making poor eye contact spontaneous movement of right arm withdrawals to pain rhonchorous BS s1 s2 obese nt no obvious HSM l arm chronic edema trace LE edema Laboratory Results - last 24 hr 08/10/19 08/11/19 08/11/19 23:33 12:36 18:09 WBC RBC Hgb Hct MCV MCH MCHC RDW Plt Count MPV INR (Anticoag Therapy) APTT Sodium Potassium Chloride Carbon Dioxide Anion Gap BUN Creatinine Est GFR ( Amer) Est GFR (Non-Af Amer) BUN/Creatinine Ratio Glucose POC Glucose (mg/dL) 185 H 181 H 122 H Calcium Phosphorus Magnesium 08/12/19 08/12/19 08/12/19 00:23 05:00 05:00 WBC RBC Hgb Hct MCV MCH MCHC RDW Plt Count MPV INR (Anticoag Therapy) 1.21 H APTT 32.8 Sodium 144 Potassium 2.6 L* Chloride 110 Carbon Dioxide 27 Anion Gap 7 BUN 10 Creatinine 0.40 L Est GFR ( Amer) 212.8 Est GFR (Non-Af Amer) 175.9 BUN/Creatinine Ratio 25.0 H Glucose 109 H POC Glucose (mg/dL) 114 H Calcium 8.0 L Phosphorus 2.3 L Magnesium 2.1 08/12/19 05:00 WBC 7.7 RBC 3.07 L Hgb 7.5 L Hct 23 L MCV 76 L MCH 24 L MCHC 32 RDW 21 H Plt Count 111 L MPV 8.7 INR (Anticoag Therapy) APTT Sodium Potassium Chloride Carbon Dioxide Anion Gap BUN Creatinine Est GFR ( Amer) Est GFR (Non-Af Amer) BUN/Creatinine Ratio Glucose POC Glucose (mg/dL) Calcium Phosphorus Magnesium Albuterol/Ipratropium (Duoneb (Albuterol 2.5 Mg/Ipratropium 0.5 Mg)) 1 neb INH Q4H PRN PRN Reason: SOB/WHEEZING Chlorhexidine Gluconate (Peridex Mouth Wash 0.12%*) 15 ml TOPICAL Q4H [facility] Last Admin: 08/12/19 08:52 Dose: Not Given Dextrose (D50w Syringe 50 Ml*) 12.5 gm IV PUSH .FOR FS < 60 - SS PRN PRN Reason: FS < 60 Fentanyl Citrate (Fentanyl*) 50 mcg IV SLOW PU Q1H PRN PRN Reason: Pain Last Admin: 08/10/19 05:14 Dose: 50 mcg Gabapentin (Neurontin Cap(*)) 600 mg PO TID [facility] Last Admin: 08/12/19 08:35 Dose: 600 mg Heparin Sodium (Porcine) (Heparin Vial(*)) 0 units IV .PER PROTOCOL [facility] Last Admin: 08/10/19 19:25 Dose: 4,000 units Heparin Sodium/Dextrose (Heparin Drip 25,000 Units(*)) 25,000 units in 500 mls @ 0 mls/hr IV PER RATE [facility]; Protocol Last Admin: 08/10/19 23:00 Dose: 31 mls/hr Norepinephrine Bitartrate (Levophed 16 Mcg/Ml Premix*) 4,000 mcg in 250 mls @ 0 mls/hr IV .PER PROTOCOL [facility]; Protocol Last Admin: 08/09/19 07:09 Dose: 30 mls/hr Propofol (Diprivan*) 100 mls @ 14.969 mls/hr IV .PER PROTOCOL [facility]; Protocol Last Admin: 08/12/19 07:34 Dose: 59.5 mls/hr Ceftriaxone Sodium 2 gm/ (Sodium Chloride) 100 mls @ 200 mls/hr IVPB Q12H [facility] Last Admin: 08/12/19 04:01 Dose: 200 mls/hr Vancomycin HCl 1,250 mg/ (Sodium Chloride) 250 mls @ 166.667 mls/hr IVPB Q8H [facility] Last Admin: 08/12/19 04:49 Dose: 166.667 mls/hr Levetiracetam 1,250 mg/ Sodium (Chloride) 112.5 mls @ 450 mls/hr IVPB Q12H [facility] Last Admin: 08/12/19 08:36 Dose: 450 mls/hr Insulin Human Lispro (Humalog*) 0 units SUBCUT FS Q6 ICU [facility]; Protocol Last Admin: 08/12/19 06:03 Dose: Not Given Mometasone Furoate/Formoterol Fumar (Dulera 200/5 Mdi*) 2 puff INH BID [facility]; Protocol Last Admin: 08/12/19 07:00 Dose: Not Given Nystatin (Nystatin Suspension*) 200,000 units PO QID [facility] Stop: 08/24/19 09:00 Last Admin: 08/12/19 08:52 Dose: Not Given Pantoprazole Sodium (Protonix Iv*) 40 mg IV Q24H [facility] Last Admin: 08/11/19 21:13 Dose: 40 mg Pharmacy Consult (Vancomycin Per Pharmacy*) 1 note FOLLOW UP .VANC PER PHARMACY [facility]; Protocol Pharmacy Profile Note (Vancomycin Trough Check) 1 note FOLLOW UP 1130 ONE Stop: 08/12/19 11:31 Assessment: 43 yo F w metastatic breast cancer, with controlled disease on TDM-1, and recent diagnosis of pseudotumor cerebri, now with unresponsive episode of unclear etiology, intubated in ICU. Plan: appreciate CCM and neurology input. Unclear what the driving factors are of her presentation or recent diagnosis of pseudotumor cerebri. disease appears stable to improving on TDM-1. literature review does not support this as an etiology. -cont ICU management -?repeat LP -heparin drip for prior ovarian vein thrombosis (old) -thrombocytopenia likely related to illness and antibiotics. if falls <100 would switch to argatroban or bivalirudin and send HIT abs
[2019-08-12 11:07] LABS: Albumin 3.3 g/dL (3.2-5.2); Albumin/Globulin Ratio 1.1 (1-3); Indirect Bilirubin 0.4 mg/dL (0.3-1.0); Total Bilirubin 0.6 mg/dL (0.2-1.0); Total Protein 6.3 g/dL (6.4-8.9)
[2019-08-12] MEDS ORDERED: Vancomycin Trough Check NOTE FOLLOW UP ONE (11:30)
[2019-08-12] MEDS: Heparin DRIP 25,000 UNITS(*) 25,000 UNITS/500 ML BAG IV SCH (14:15)
[2019-08-12] MEDS: Heparin VIAL(*) 5000 UNITS/ML VIAL (FIVE THOUSAND) IV SCH (14:15)
--- NOTE | 2019-08-12 15:14 | PN ---
Date of Service: 08/12/19 Critical Care Services: mental status much improved today - Somnolent but arousable and responds to commands. Was extubated this AM and is doing well post-extubation. Vital Signs: Temp Pulse Resp BP SpO2 FiO2 99.7 F 75 19 124/69 98 20 Physical Exam: Gen:Resting comfortably HEENT: No facial asymmetry Lungs:Scattered rhonchi Cardiac: No murmurs Abdomen: Not distended Extremities: 1-2+ edema Neuro: Move all limbs but diffusely weak. Fluid Balance (Past 24 Hours): 08/10/19 08/11/19 08/12/19 06:59 06:59 06:59 Intake Total 4250 6358 2516 Output Total 2535 1490 5215 Balance 1715 6668 -2699 Weight 273 lb 2.444 oz 265 lb 6.985 oz Intake: IV Fluids 2247 2784 516 Heparin 446 635 166 KCl NS 1801 2149 350 IVPB 786 1445 997 ABX - CEFEPIME 178 194 ABX - CEFTRIAXONE 111 210 ABX - FLAGYL 235 ABX - VANCOMYCIN 263 864 787 ABX - ZOSYN 110 Potassium Phosphate 276 Medicated IV 1626 160 7169 Keppra 227 254 173 Levophed 215 11 propofol 775 707 830 Tube Feeding 897 Tube Feeding Flush Amount 260 Kaplan Irrigate Amount Output: NG Tube Drainage Amount 300 800 Kaplan 2235 1490 4415 Labs: Laboratory Results - last 24 hr 08/10/19 08/11/19 08/12/19 23:33 18:09 00:23 WBC RBC Hgb Hct MCV MCH MCHC RDW Plt Count MPV INR (Anticoag Therapy) APTT Sodium Potassium Chloride Carbon Dioxide Anion Gap BUN Creatinine Est GFR ( Amer) Est GFR (Non-Af Amer) BUN/Creatinine Ratio Glucose POC Glucose (mg/dL) 185 H 122 H 114 H Calcium Phosphorus Magnesium Total Bilirubin Direct Bilirubin Indirect Bilirubin AST ALT Alkaline Phosphatase Ammonia Total Protein Albumin Globulin Albumin/Globulin Ratio 08/12/19 08/12/19 08/12/19 05:00 05:00 05:00 WBC 7.7 RBC 3.07 L Hgb 7.5 L Hct 23 L MCV 76 L MCH 24 L MCHC 32 RDW 21 H Plt Count 111 L MPV 8.7 INR (Anticoag Therapy) 1.21 H APTT 32.8 Sodium 144 Potassium 2.6 L* Chloride 110 Carbon Dioxide 27 Anion Gap 7 BUN 10 Creatinine 0.40 L Est GFR ( Amer) 212.8 Est GFR (Non-Af Amer) 175.9 BUN/Creatinine Ratio 25.0 H Glucose 109 H POC Glucose (mg/dL) Calcium 8.0 L Phosphorus 2.3 L Magnesium 2.1 Total Bilirubin Direct Bilirubin Indirect Bilirubin AST ALT Alkaline Phosphatase Ammonia Total Protein Albumin Globulin Albumin/Globulin Ratio 08/12/19 08/12/19 08/12/19 10:34 10:34 10:34 WBC RBC Hgb Hct MCV MCH MCHC RDW Plt Count MPV INR (Anticoag Therapy) APTT Sodium Potassium 2.9 L Chloride Carbon Dioxide Anion Gap BUN Creatinine Est GFR ( Amer) Est GFR (Non-Af Amer) BUN/Creatinine Ratio Glucose POC Glucose (mg/dL) Calcium Phosphorus Magnesium Total Bilirubin 0.60 Direct Bilirubin 0.20 H Indirect Bilirubin 0.4 AST 96 H ALT 95 H Alkaline Phosphatase 102 Ammonia 85 H Total Protein 6.3 L Albumin 3.3 Globulin 3.0 Albumin/Globulin Ratio 1.1 08/12/19 08/12/19 12:15 14:22 WBC RBC Hgb Hct MCV MCH MCHC RDW Plt Count MPV INR (Anticoag Therapy) APTT 31.7 Sodium Potassium Chloride Carbon Dioxide Anion Gap BUN Creatinine Est GFR ( Amer) Est GFR (Non-Af Amer) BUN/Creatinine Ratio Glucose POC Glucose (mg/dL) 141 H Calcium Phosphorus Magnesium Total Bilirubin Direct Bilirubin Indirect Bilirubin AST ALT Alkaline Phosphatase Ammonia Total Protein Albumin Globulin Albumin/Globulin Ratio Studies: None today Nutrition: Transiion from tube feeding to oral diet Impression: Is waking up, but we are still unclear about etiology of original change in mental status. Plan: 1. Check swallowing function - if OK, then start oral feedings. 2. Replace potassium and magnesium 3. Further evaluation per neurology service. Critical Care Time: 40 minutes (including time spent with extubation).
[2019-08-12] MEDS: Magnesium Sulfate 2 GM IV* 2 GM/50 ML BAG IVPB ONE ×2 (15:39→16:24)
[2019-08-12] MEDS: KCL 20 MEQ/100 ML IVPREMIX* 20 MEQ/100 ML BAG IV SCH ×3 (15:39→18:21)
[2019-08-12] MEDS ORDERED: Vancomycin(*) 1,000 MG in NS 0.9% 250 ML* 250 ML IVPB SCH (15:54)
[2019-08-12] MEDS ORDERED: Ondansetron INJ* 2 MG/ML VIAL IV PRN (16:54)
[2019-08-12] MEDS: Pantoprazole IV* 40 MG IV SCH (21:49)
[2019-08-13] MEDS: Insulin LISPRO* 1 UNITS UNIT SUBCUT SCH ×2 (00:04→05:57)
[2019-08-13] MEDS: cefTRIAXone(*) 2 GM in NS 0.9% 100 ML* 100 ML IVPB SCH (03:47)
[2019-08-13] MEDS: Vancomycin(*) 1,250 MG in NS 0.9% 250 ML* 250 ML IVPB SCH (04:40)
[2019-08-13 05:38] LABS: Hematocrit 24 % (35-47); Hemoglobin 7.4 g/dL (12.0-16.0); Mean Corpuscular HGB Conc 31 g/dL (31-36); Mean Corpuscular Hemoglobin 23 pg (27-31); Mean Corpuscular Volume 76 fL (80-97); Mean Platelet Volume 8.9 fL (7.4-10.4); Platelet Count 101 10^3/uL (150-450); Red Blood Count 3.17 10^6 /uL (3.70-4.87); Red Cell Distribution Width 21 % (10-15); White Blood Count 7.9 10^3/uL (3.5-10.8)
[2019-08-13 05:52] LABS: INR 1.17 (0.82-1.09)
[2019-08-13 05:53] LABS: Activated Partial Thrombo Time 56.6 seconds (26.0-38.0)
[2019-08-13 05:55] LABS: BUN/Creatinine Ratio 37.8 (8-20); Calcium 8.1 mg/dL (8.6-10.3); EGFR African American 232.9 (>60); EGFR Non-African American 192.5 (>60); Magnesium 2.4 mg/dL (1.9-2.7); Phosphorus 3.1 mg/dL (2.5-5.0); Potassium 2.9 mmol/L (3.5-5.0)
--- NOTE | 2019-08-13 07:46 | PN ---
Progress Note - Progress Note Date of Service: 08/13/19 SOAP: Subjective: much improved today. admits to me this morning that she overdosed, though denies trying to intentionally kill herself. when prompted admits that she just did not want to be in pain. Objective: Vital Signs Temp Pulse Resp BP Pulse Ox 99.5 F 67 13 141/64 97 08/13/19 07:01 08/13/19 07:01 08/13/19 07:01 08/13/19 07:01 08/13/19 07:01 lying flat in nad speaking to me today, following commands clearer respiratory exam today s1 s2nl soft nt +Bs trace le edema +LUE edema Laboratory Results - last 24 hr 08/12/19 08/12/19 08/12/19 10:34 12:15 14:22 WBC RBC Hgb Hct MCV MCH MCHC RDW Plt Count MPV INR (Anticoag Therapy) APTT 31.7 Sodium Potassium Chloride Carbon Dioxide Anion Gap BUN Creatinine Est GFR ( Amer) Est GFR (Non-Af Amer) BUN/Creatinine Ratio Glucose POC Glucose (mg/dL) 141 H Calcium Phosphorus Magnesium Total Bilirubin 0.60 Direct Bilirubin 0.20 H Indirect Bilirubin 0.4 AST 96 H ALT 95 H Alkaline Phosphatase 102 Ammonia Total Protein 6.3 L Albumin 3.3 Globulin 3.0 Albumin/Globulin Ratio 1.1 Vancomycin Trough 08/12/19 08/13/19 08/13/19 23:34 05:30 05:30 WBC 7.9 RBC 3.17 L Hgb 7.4 L Hct 24 L MCV 76 L MCH 23 L MCHC 31 RDW 21 H Plt Count 101 L MPV 8.9 INR (Anticoag Therapy) APTT Sodium 145 Potassium 2.9 L Chloride 108 Carbon Dioxide 30 Anion Gap 7 BUN 14 Creatinine 0.37 L Est GFR ( Amer) 232.9 Est GFR (Non-Af Amer) 192.5 BUN/Creatinine Ratio 37.8 H Glucose 122 H POC Glucose (mg/dL) 125 H Calcium 8.1 L Phosphorus 3.1 Magnesium 2.4 Total Bilirubin Direct Bilirubin Indirect Bilirubin AST ALT Alkaline Phosphatase Ammonia Total Protein Albumin Globulin Albumin/Globulin Ratio Vancomycin Trough Albuterol/Ipratropium (Duoneb (Albuterol 2.5 Mg/Ipratropium 0.5 Mg)) 1 neb INH Q4H PRN PRN Reason: SOB/WHEEZING Dextrose (D50w Syringe 50 Ml*) 12.5 gm IV PUSH .FOR FS < 60 - SS PRN PRN Reason: FS < 60 Fentanyl Citrate (Fentanyl*) 50 mcg IV SLOW PU Q1H PRN PRN Reason: Pain Last Admin: 08/10/19 05:14 Dose: 50 mcg Fondaparinux (Arixtra*) 10 mg SUBCUT Q24H [facility] Gabapentin (Neurontin Cap(*)) 600 mg PO TID [facility] Last Admin: 08/12/19 20:34 Dose: Not Given Heparin Sodium (Porcine) (Heparin Vial(*)) 0 units IV .PER PROTOCOL [facility] Last Admin: 08/12/19 14:15 Dose: 4,000 units Norepinephrine Bitartrate (Levophed 16 Mcg/Ml Premix*) 4,000 mcg in 250 mls @ 0 mls/hr IV .PER PROTOCOL [facility]; Protocol Last Admin: 08/09/19 07:09 Dose: 30 mls/hr Propofol (Diprivan*) 100 mls @ 14.969 mls/hr IV .PER PROTOCOL [facility]; Protocol Last Admin: 08/12/19 07:34 Dose: 59.5 mls/hr Ceftriaxone Sodium 2 gm/ (Sodium Chloride) 100 mls @ 200 mls/hr IVPB Q12H [facility] Last Admin: 08/13/19 03:47 Dose: 200 mls/hr Levetiracetam 1,250 mg/ Sodium (Chloride) 112.5 mls @ 450 mls/hr IVPB Q12H [facility] Last Admin: 08/12/19 21:49 Dose: 450 mls/hr Vancomycin HCl 1,250 mg/ (Sodium Chloride) 250 mls @ 166.667 mls/hr IVPB Q8H [facility] Last Admin: 08/13/19 04:40 Dose: 166.667 mls/hr Insulin Human Lispro (Humalog*) 0 units SUBCUT FS Q6 ICU [facility]; Protocol Last Admin: 08/13/19 05:57 Dose: Not Given Mometasone Furoate/Formoterol Fumar (Dulera 200/5 Mdi*) 2 puff INH BID [facility]; Protocol Last Admin: 08/12/19 19:29 Dose: 2 puff Nystatin (Nystatin Suspension*) 200,000 units PO QID [facility] Stop: 08/24/19 09:00 Last Admin: 08/12/19 21:49 Dose: 200,000 units Ondansetron HCl (Zofran Inj*) 4 mg IV Q6H PRN PRN Reason: NAUSEA Last Admin: 08/12/19 17:14 Dose: 4 mg Pantoprazole Sodium (Protonix Iv*) 40 mg IV Q24H [facility] Last Admin: 08/12/19 21:49 Dose: 40 mg Pharmacy Consult (Vancomycin Per Pharmacy*) 1 note FOLLOW UP .VANC PER PHARMACY [facility]; Protocol Pharmacy Profile Note (Vancomycin Trough Check) 1 note FOLLOW UP 1130 ONE Stop: 08/14/19 11:31 Assessment: 43 yo F w metastatic breast cancer on TDM-1 and pseudotumor cerebri, admitted unresponsive, now admitting to overdose as etiology. Plan: Overdose: unfortunately this is not the first time this has happened with [facility]. She was admitted in September of 2016 with a similar event, at that time felt to be an accidental duplication of her sleeping pills, though clearly clouded by her depression which has been an ongoing issue with her. -will request psychiatric consultation Pseudotumor cerebri: paraneoplastic panel negative will discuss with neurology restarting diamox/jail plan for treatment of this. ?need to continue keppra at this point thrombocytopenia: likely related to antibiotics, but will stop heparin drip, start arixtra and check antiplatelet Abs once it is clear that no more procedures needed and platelets stable will change back to xeralto for her ovarian vein thrombosis aspiration w vomiting: no infiltrate on imaging but was febrile, low grade, 2 days ago. reasonable to continue abx x24-48 more hours as long as continuing to improve full code
[2019-08-13] MEDS ORDERED: FONDAPARINUX 10 MG/0.8 ML SUBCUT SCH (08:00)
[2019-08-13] MEDS ORDERED: Heparin DRIP 25,000 UNITS(*) 0 UNITS/0 ML BAG ONE (08:09)
[2019-08-13] MEDS: Nystatin SUSPENSION* 100000 UNITS/ML 5 ML UDC PO SCH ×4 (08:12→20:29)
[2019-08-13] MEDS: Gabapentin CAP(*) 300 MG PO SCH ×3 (08:13→20:25)
[2019-08-13] MEDS: NS 0.9% IVPB SCH (08:26)
[2019-08-13] MEDS: LEVETIRACETAM IVPB SCH (08:26)
--- NOTE | 2019-08-13 09:01 | PN ---
Subjective Date of Service: 08/13/19 Interval History: The patient was extubated yesterday. She denies any complaints today. She did express to oncology that she took too much pain medication. She is not offering any concerns at this time. ROS-denies fever, denies chills, denies chest pain, denies shortness of breathe , denies abdominal pain, denies nausea, denies vomiting, denies lightheadedness , review of 14 systems completed all others negative, Review of Systems: Denied CP, SOB, or palpitations. Family History: Unchanged from Admission Social History: Unchanged from Admission Past Medical History: Unchanged from Admission Objective Active Medications: Albuterol/Ipratropium (Duoneb (Albuterol 2.5 Mg/Ipratropium 0.5 Mg)) 1 neb INH Q4H PRN PRN Reason: SOB/WHEEZING Dextrose (D50w Syringe 50 Ml*) 12.5 gm IV PUSH .FOR FS < 60 - SS PRN PRN Reason: FS < 60 Fentanyl Citrate (Fentanyl*) 50 mcg IV SLOW PU Q1H PRN PRN Reason: Pain Last Admin: 08/10/19 05:14 Dose: 50 mcg Gabapentin (Neurontin Cap(*)) 600 mg PO TID [facility] Last Admin: 08/13/19 08:13 Dose: 600 mg Heparin Sodium (Porcine) (Heparin Vial(*)) 0 units IV .PER PROTOCOL [facility] Last Admin: 08/12/19 14:15 Dose: 4,000 units Norepinephrine Bitartrate (Levophed 16 Mcg/Ml Premix*) 4,000 mcg in 250 mls @ 0 mls/hr IV .PER PROTOCOL [facility]; Protocol Last Admin: 08/09/19 07:09 Dose: 30 mls/hr Propofol (Diprivan*) 100 mls @ 14.969 mls/hr IV .PER PROTOCOL [facility]; Protocol Last Admin: 08/12/19 07:34 Dose: 59.5 mls/hr Ceftriaxone Sodium 2 gm/ (Sodium Chloride) 100 mls @ 200 mls/hr IVPB Q12H [facility] Last Admin: 08/13/19 03:47 Dose: 200 mls/hr Levetiracetam 1,250 mg/ Sodium (Chloride) 112.5 mls @ 450 mls/hr IVPB Q12H [facility] Last Admin: 08/13/19 08:26 Dose: 450 mls/hr Vancomycin HCl 1,250 mg/ (Sodium Chloride) 250 mls @ 166.667 mls/hr IVPB Q8H [facility] Last Admin: 08/13/19 04:40 Dose: 166.667 mls/hr Insulin Human Lispro (Humalog*) 0 units SUBCUT FS Q6 ICU [facility]; Protocol Last Admin: 08/13/19 05:57 Dose: Not Given Mometasone Furoate/Formoterol Fumar (Dulera 200/5 Mdi*) 2 puff INH BID [facility]; Protocol Last Admin: 08/12/19 19:29 Dose: 2 puff Nystatin (Nystatin Suspension*) 200,000 units PO QID [facility] Stop: 08/24/19 09:00 Last Admin: 08/13/19 08:12 Dose: 200,000 units Ondansetron HCl (Zofran Inj*) 4 mg IV Q6H PRN PRN Reason: NAUSEA Last Admin: 08/12/19 17:14 Dose: 4 mg Pantoprazole Sodium (Protonix Iv*) 40 mg IV Q24H [facility] Last Admin: 08/12/19 21:49 Dose: 40 mg Pharmacy Consult (Vancomycin Per Pharmacy*) 1 note FOLLOW UP .VANC PER PHARMACY [facility]; Protocol Pharmacy Profile Note (Vancomycin Trough Check) 1 note FOLLOW UP 1130 ONE Stop: 08/14/19 11:31 Vital Signs 08/12/19 08/12/19 08/12/19 09:00 09:01 09:31 Temperature 99.1 F 99.3 F 99.5 F Pulse Rate 84 82 80 Respiratory 15 Rate Blood Pressure 152/79 143/73 (mmHg) O2 Sat by Pulse 97 100 100 Oximetry 08/12/19 08/12/19 08/12/19 10:00 10:01 10:31 Temperature 99.5 F 99.3 F 99.5 F Pulse Rate 81 79 81 Respiratory 19 Rate Blood Pressure 140/72 144/67 (mmHg) O2 Sat by Pulse 91 91 91 Oximetry 08/12/19 08/12/19 08/12/19 11:00 11:01 11:31 Temperature 99.5 F 99.7 F 99.7 F Pulse Rate 79 81 78 Respiratory 24 24 15 Rate Blood Pressure 145/69 121/69 (mmHg) O2 Sat by Pulse 93 90 96 Oximetry 08/12/19 08/12/19 08/12/19 12:00 12:01 12:31 Temperature 99.7 F 99.7 F 99.7 F Pulse Rate 73 77 73 Respiratory 18 16 14 Rate Blood Pressure 120/68 132/69 (mmHg) O2 Sat by Pulse 95 95 95 Oximetry 08/12/19 08/12/19 08/12/19 13:00 13:01 13:31 Temperature 99.7 F 99.7 F 99.9 F Pulse Rate 76 75 78 Respiratory 16 19 16 Rate Blood Pressure 124/69 107/62 (mmHg) O2 Sat by Pulse 98 98 97 Oximetry 08/12/19 08/12/19 08/12/19 14:00 14:01 14:31 Temperature 99.5 F Pulse Rate 73 76 77 Respiratory 17 16 12 Rate Blood Pressure 122/63 127/66 (mmHg) O2 Sat by Pulse 97 97 97 Oximetry 08/12/19 08/12/19 08/12/19 15:00 15:01 16:00 Temperature 99.5 F 99.5 F 99.5 F Pulse Rate 75 74 74 Respiratory 13 13 13 Rate Blood Pressure 130/66 (mmHg) O2 Sat by Pulse 95 96 99 Oximetry 08/12/19 08/12/19 08/12/19 16:01 16:31 17:00 Temperature 99.5 F 99.5 F 99.5 F Pulse Rate 76 77 68 Respiratory 13 17 13 Rate Blood Pressure 133/65 117/65 (mmHg) O2 Sat by Pulse 97 96 96 Oximetry 08/12/19 08/12/19 08/12/19 17:01 17:31 18:00 Temperature 99.5 F 99.5 F 99.3 F Pulse Rate 71 76 78 Respiratory 12 17 15 Rate Blood Pressure 120/77 125/72 (mmHg) O2 Sat by Pulse 98 95 98 Oximetry 08/12/19 08/12/19 08/12/19 18:01 18:31 19:00 Temperature 99.5 F 99.5 F 99.5 F Pulse Rate 74 76 75 Respiratory 16 17 13 Rate Blood Pressure 135/71 118/65 (mmHg) O2 Sat by Pulse 97 97 98 Oximetry 08/12/19 08/12/19 08/12/19 19:01 19:30 19:31 Temperature 99.5 F 99.1 F Pulse Rate 70 66 66 Respiratory 13 15 13 Rate Blood Pressure 121/63 124/68 (mmHg) O2 Sat by Pulse 98 98 98 Oximetry 08/12/19 08/12/19 08/12/19 20:00 20:01 20:31 Temperature 99.0 F 99.0 F 98.6 F Pulse Rate 69 66 67 Respiratory 12 12 12 Rate Blood Pressure 132/68 131/66 (mmHg) O2 Sat by Pulse 97 97 98 Oximetry 08/12/19 08/12/19 08/12/19 21:00 21:01 21:31 Temperature 98.6 F 98.6 F 98.6 F Pulse Rate 70 71 71 Respiratory 10 11 13 Rate Blood Pressure 130/68 128/70 (mmHg) O2 Sat by Pulse 97 97 98 Oximetry 08/12/19 08/12/19 08/12/19 22:00 22:01 23:00 Temperature 98.4 F 98.4 F 98.4 F Pulse Rate 67 67 66 Respiratory 15 10 10 Rate Blood Pressure 126/58 (mmHg) O2 Sat by Pulse 98 99 97 Oximetry 08/12/19 08/13/19 08/13/19 23:01 00:00 00:01 Temperature 98.4 F 98.4 F 98.4 F Pulse Rate 65 65 65 Respiratory 9 12 14 Rate Blood Pressure 132/62 130/60 (mmHg) O2 Sat by Pulse 97 97 97 Oximetry 08/13/19 08/13/19 08/13/19 01:00 01:01 02:00 Temperature 98.8 F 98.8 F 99.0 F Pulse Rate 69 70 70 Respiratory 10 12 13 Rate Blood Pressure 135/64 (mmHg) O2 Sat by Pulse 97 97 99 Oximetry 08/13/19 08/13/19 08/13/19 02:01 03:00 03:01 Temperature 99.0 F 99.0 F 99.0 F Pulse Rate 73 80 75 Respiratory 13 11 9 Rate Blood Pressure 134/67 135/70 (mmHg) O2 Sat by Pulse 98 100 98 Oximetry 08/13/19 08/13/19 08/13/19 04:00 04:01 05:00 Temperature 99.1 F 99.1 F 99.3 F Pulse Rate 80 69 70 Respiratory 21 12 13 Rate Blood Pressure 129/58 (mmHg) O2 Sat by Pulse 99 98 98 Oximetry 08/13/19 08/13/19 08/13/19 05:01 06:00 06:01 Temperature 99.3 F 99.3 F 99.5 F Pulse Rate 68 73 72 Respiratory 12 12 12 Rate Blood Pressure 127/65 118/70 (mmHg) O2 Sat by Pulse 98 98 98 Oximetry 08/13/19 08/13/19 07:00 07:01 Temperature 99.5 F 99.5 F Pulse Rate 69 67 Respiratory 16 13 Rate Blood Pressure 141/64 (mmHg) O2 Sat by Pulse 98 97 Oximetry Intake and Output Last 24 Hours 08/11/19 08/12/19 08/13/19 08/14/19 06:59 06:59 06:59 06:59 Intake Total 6358 2516 3065.2 Output Total 1490 5215 4978 50 Balance 4868 -2699 -1912.8 -50 Weight 273 lb 2.444 oz 265 lb 6.985 oz 261 lb 11.019 oz Intake: IV Fluids 2784 516 556 ABX - CEFTRIAXONE 125 ABX - VANCOMYCIN 35 Heparin 635 166 KCl 220 NS 2149 350 176 IVPB 1445 997 629 ABX - CEFEPIME 194 ABX - CEFTRIAXONE 111 210 111 ABX - VANCOMYCIN 864 787 306 KCl 212 Potassium Phosphate 276 Medicated IV 972 1003 418.2 Keppra 254 173 240 Levophed 11 propofol 707 830 178.2 Heparin 457 Oral 180 Tube Feeding 897 Tube Feeding Flush Amount 260 100 Kaplan Irrigate Amount 725 Output: NG Tube Drainage Amount 800 1900 Urine 250 50 Kaplan 1490 4415 2828 Oxygen Devices in Use Now: Nasal Cannula Neurology Exam: Well nourished, obese, extuabted NC/AT, sclera anicteric NG tube in place Neck is supple RRR, no M/G/R Abdomen: obese, Distended Ext: No significant edema, no significant cyanosis Awake and alert, following commands PERRL, no significant nystagmus. eoms intact, tongue midline, no facial drooping noted, moving all four extremities to command, no drift noted, DTRs: Down throughout No tremors or myoclonus appreciated did not test gait today, sensation intact to all for extremities, Result Diagrams: 08/13/19 05:30 08/13/19 05:30 Microbiology and Other Data: Microbiology 08/08/19 19:31 Aerobic Blood Culture - Preliminary Blood Venous No Growth Day 1 Anaerobic Blood Culture - Preliminary No Growth Day 1 08/08/19 19:21 Aerobic Blood Culture - Preliminary Blood Venous No Growth Day 1 Anaerobic Blood Culture - Preliminary No Growth Day 1 08/09/19 12:08 Legionella Urinary Antigen - Final Urine Negative Legionella Antigen Streptococcus pneumoniae Ag Screen - Final Negative S. 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 History of ovarian vein thrombus, on Xarelto. She was seen by Neurology on 08.06.19 with a history of headache. With a history of tinnitus, empty sella and papilledema, concern for pseudotumor. Outpatient LP was ordered, which showed a pressure of 29 and she was subsequently started on Diamox. She came to the ER of 08.07.19 with headache and discharged home with continued Diamox. She was brought into the ER unresponsive on 08.08.19, multiple narcotics found in the home, no response to Narcan, concern for aspiration with vomit found in the throat, intubated for airway protection and low sats. Admitted to the ICU with AMS, given Rocephin at that time, CT showed no bleeding. Seen by neurology with concern for seizure /post-ictal, started on Keppra. It was noted that she did repond during a Propofol holiday. EEG negative for seizure like activity. She had an initial temp of 102 which has improved, today 100.2 on Cefepime and Flagyl. She remains heavily sedated on Propofol but during a brief holiday, she was moving all extremities, w/d to pain. Repeat EEG yesterday showed no seizure but as the propofol was weaned there was some sharp activity. Keppra was increased to 1250mg bid. CT/CTV showed no acute issues. Remained sedated on propofol overnight. No Lp at this time, mental status clearing, susepct AMS due to opoid overdose, AMS: -Mostly secondary to opoid overdose, -she is clearing -continue supportive care -psych consulted Infection: -susepct aspiration PNA in setting of opoid overdose, -management per icu team Pseudotumor cerebri -would reinstate diamox 250mg bid Polypharmacy: history of drug use. --She has been on gabapentin chronically. In light of possible seizure activity , I would not d/c this as it is unlikely affecting mental status Metabolic encephalopathy: --elevated LFTs/ammonia--consider Lactulose. repeat LFTs, Ammonia trending down , --Replace electrolytes as necessary -patient clearing Abnormal eeg is setting of brain tumor -continue keppra 1250mg bid Plan: Diamox 250mg bid keppra 1250mg bid will need outpatient neuro follow up will sign off at this poitn as patient is clearing if any further concerns please contact us.
[2019-08-13] MEDS: Mometasone/Formoter 200/5 MDI INH SCH ×2 (09:23→19:36)
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
--- NOTE | 2019-08-13 17:58 | PN ---
Date of Service: 08/13/19 Critical Care Services: Patient confesses to an opioid overdose as cause of altered mentation on admission. Denies suicide ideation. Psych service in to see patient but too somnolent for evaluation. Vital Signs: Temp Pulse Resp BP SpO2 FiO2 99.3 F 68 17 122/66 97 20 Physical Exam: Gen:Somnolent but arousable HEENT:No facial asymmetry Lungs: Clear Cardiac: No murmurs Abdomen: Obese but not distended Extremities:2+ edema Fluid Balance (Past 24 Hours): 08/11/19 08/12/19 08/13/19 06:59 06:59 06:59 Intake Total 6358 2516 3065.2 Output Total 1490 5215 4978 Balance 4868 -2699 -1912.8 Weight 273 lb 2.444 oz 265 lb 6.985 oz 261 lb 11.019 oz Intake: IV Fluids 2784 516 556 ABX - CEFTRIAXONE 125 ABX - VANCOMYCIN 35 Heparin 635 166 KCl 220 NS 2149 350 176 IVPB 1445 997 629 ABX - CEFEPIME 194 ABX - CEFTRIAXONE 111 210 111 ABX - VANCOMYCIN 864 787 306 KCl 212 Potassium Phosphate 276 Medicated IV 972 1003 418.2 Keppra 254 173 240 Levophed 11 propofol 707 830 178.2 Heparin 457 Oral 180 Tube Feeding 897 Tube Feeding Flush Amount 260 100 Kaplan Irrigate Amount 725 Output: NG Tube Drainage Amount 800 1900 Urine 250 Kaplan 1490 4415 2828 Labs: 08/12/19 08/12/19 08/12/19 18:28 23:30 23:34 WBC RBC Hgb Hct MCV MCH MCHC RDW Plt Count MPV INR (Anticoag Therapy) APTT 60.4 H Sodium Potassium Chloride Carbon Dioxide Anion Gap BUN Creatinine Est GFR ( Amer) Est GFR (Non-Af Amer) BUN/Creatinine Ratio Glucose POC Glucose (mg/dL) 138 H 125 H Calcium Phosphorus Magnesium 08/13/19 08/13/19 08/13/19 05:30 05:30 05:30 WBC 7.9 RBC 3.17 L Hgb 7.4 L Hct 24 L MCV 76 L MCH 23 L MCHC 31 RDW 21 H Plt Count 101 L MPV 8.9 INR (Anticoag Therapy) 1.17 H APTT 56.6 H Sodium 145 Potassium 2.9 L Chloride 108 Carbon Dioxide 30 Anion Gap 7 BUN 14 Creatinine 0.37 L Est GFR ( Amer) 232.9 Est GFR (Non-Af Amer) 192.5 BUN/Creatinine Ratio 37.8 H Glucose 122 H POC Glucose (mg/dL) Calcium 8.1 L Phosphorus 3.1 Magnesium 2.4 Studies: None today Nutrition: Oral diet - Intake marginal Impression: 1. Recovering from opiate OD 2. Hypokalemia Plan: 1. Re-evaluation by psych service tomorrow. 2. Replace potassium.
[2019-08-13] MEDS: KCL 20 MEQ/100 ML IVPREMIX* 20 MEQ/100 ML BAG IV SCH ×2 (18:31→20:25)
[2019-08-13] MEDS: acetaZOLAMIDE TAB* 250 MG PO SCH (20:25)
[2019-08-13] MEDS: levETIRAcetam TAB* 500 MG PO SCH (20:26)
[2019-08-13] MEDS: Pantoprazole IV* 40 MG IV SCH (22:34)
[2019-08-14 06:20] LABS: Hematocrit 25 % (35-47); Hemoglobin 7.6 g/dL (12.0-16.0); Mean Corpuscular HGB Conc 31 g/dL (31-36); Mean Corpuscular Hemoglobin 24 pg (27-31); Mean Corpuscular Volume 76 fL (80-97); Mean Platelet Volume 8.7 fL (7.4-10.4); Platelet Count 113 10^3/uL (150-450); Red Blood Count 3.21 10^6 /uL (3.70-4.87); Red Cell Distribution Width 22 % (10-15); White Blood Count 8.5 10^3/uL (3.5-10.8)
[2019-08-14 06:40] LABS: Activated Partial Thrombo Time 31.1 seconds (26.0-38.0); Calcium 8.3 mg/dL (8.6-10.3); EGFR African American 212.8 (>60); EGFR Non-African American 175.9 (>60); INR 1.17 (0.82-1.09); Magnesium 2.2 mg/dL (1.9-2.7); Phosphorus 2.9 mg/dL (2.5-5.0); Potassium 2.9 mmol/L (3.5-5.0)
[2019-08-14] MEDS: levETIRAcetam TAB* 500 MG PO SCH ×2 (09:14→21:19)
[2019-08-14] MEDS: Gabapentin CAP(*) 300 MG PO SCH ×3 (09:15→21:21)
[2019-08-14] MEDS: Rivaroxaban TAB(*) 20 MG TAB PO SCH (09:16)
[2019-08-14] MEDS: acetaZOLAMIDE TAB* 250 MG PO SCH ×2 (09:16→21:19)
[2019-08-14] MEDS: Nystatin SUSPENSION* 100000 UNITS/ML 5 ML UDC PO SCH ×4 (09:17→21:21)
--- NOTE | 2019-08-14 09:26 | PN ---
Date of Service: 08/14/19 Critical Care Services: No problems overnight. This AM is up in a chair for breakfast. Vital Signs: Temp Pulse Resp BP SpO2 FiO2 97.0 F 71 16 131/62 97 21 Physical Exam: Gen:Alert, oriented, appears comfortable HEENT: No facial asymmetry Lungs: Clear Cardiac: No change Abdomen: Not distended Extremities: 1+ edema Neuro: No obvious focal deficits Fluid Balance (Past 24 Hours): 08/12/19 08/13/19 06:59 06:59 Intake Total 2516 3065.2 Output Total 5215 4978 Balance -2699 -1912.8 Weight 265 lb 261 lb Intake: IV Fluids 516 556 ABX - CEFTRIAXONE 125 ABX - VANCOMYCIN 35 Heparin 166 KCl 220 NS 350 176 IVPB 997 629 ABX - CEFTRIAXONE 210 111 ABX - VANCOMYCIN 787 306 KCl 212 Medicated IV 1003 418.2 Keppra 173 240 propofol 830 178.2 Heparin 457 Oral 180 Tube Feeding Flush Amount 100 Kaplan Irrigate Amount 725 Output: NG Tube Drainage Amount 800 1900 Urine 250 Kaplan 4415 2828 Other: Estimated Void Estimated Stool Amount Labs: 08/14/19 08/14/19 08/14/19 06:00 06:00 06:00 WBC 8.5 RBC 3.21 L Hgb 7.6 L Hct 25 L MCV 76 L MCH 24 L MCHC 31 RDW 22 H Plt Count 113 L MPV 8.7 INR (Anticoag Therapy) 1.17 H APTT 31.1 Sodium 143 Potassium 2.9 L Chloride 109 Carbon Dioxide 28 Anion Gap 6 BUN 14 Creatinine 0.40 L Est GFR ( Amer) 212.8 Est GFR (Non-Af Amer) 175.9 BUN/Creatinine Ratio 35.0 H Glucose 111 H Calcium 8.3 L Phosphorus 2.9 Magnesium 2.2 Studies: None today Nutrition: Regular, unrestricted diet Impression: 1. Opiate OD - resolved. Patient does seem depressed. 2. Hypokalemia - most likely from the furosemide diuresis. Plan: 1. Patient to be transferred out of ICU today. 2. Psych service to evaluate. 3. KCL replacement ordered.
[2019-08-14] MEDS: Mometasone/Formoter 200/5 MDI INH SCH ×2 (09:42→19:53)
[2019-08-14] MEDS ORDERED: KCL 20 MEQ/100 ML IVPREMIX* 20 MEQ/100 ML BAG IV SCH (10:00)
[2019-08-14] MEDS: KCL 20 MEQ/100 ML IVPREMIX* 20 MEQ/100 ML BAG IV SCH ×2 (10:37→14:13)
[2019-08-14] MEDS: Potassium Chlor TAB* 20 MEQ TAB.ER PO SCH ×2 (10:37→21:20)
[2019-08-14] MEDS ORDERED: Vancomycin Trough Check NOTE FOLLOW UP ONE (11:30)
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
[2019-08-14 18:02] LABS: BUN/Creatinine Ratio 28.2 (8-20); Calcium 8.7 mg/dL (8.6-10.3); EGFR African American 219.2 (>60); EGFR Non-African American 181.1 (>60); Potassium 3.2 mmol/L (3.5-5.0)
[2019-08-14 22:35] LABS: HIT ELISA 0.098 OD (<0.400)
[2019-08-14] MEDS: oxyCODONE TAB* 5 MG TAB PO PRN (22:35)
[2019-08-15] MEDS: oxyCODONE TAB* 5 MG TAB PO PRN ×3 (04:22→16:11)
[2019-08-15 04:50] LABS: Hematocrit 25 % (35-47); Hemoglobin 7.5 g/dL (12.0-16.0); Mean Corpuscular HGB Conc 30 g/dL (31-36); Mean Corpuscular Hemoglobin 23 pg (27-31); Mean Corpuscular Volume 77 fL (80-97); Mean Platelet Volume 8.3 fL (7.4-10.4); Platelet Count 113 10^3/uL (150-450); Red Blood Count 3.23 10^6 /uL (3.70-4.87); Red Cell Distribution Width 22 % (10-15)
[2019-08-15 05:04] LABS: BUN/Creatinine Ratio 21.6 (8-20); Calcium 7.9 mg/dL (8.6-10.3); EGFR African American 232.9 (>60); EGFR Non-African American 192.5 (>60); Potassium 2.8 mmol/L (3.5-5.0)
[2019-08-15] MEDS: KCL 20 MEQ/100 ML IVPREMIX* 20 MEQ/100 ML BAG IV SCH ×3 (07:29→13:24)
[2019-08-15] MEDS: acetaZOLAMIDE TAB* 250 MG PO SCH (07:34)
[2019-08-15] MEDS: levETIRAcetam TAB* 500 MG PO SCH (07:35)
[2019-08-15] MEDS: Gabapentin CAP(*) 300 MG PO SCH ×2 (07:37→13:29)
[2019-08-15] MEDS: Rivaroxaban TAB(*) 20 MG TAB PO SCH (07:38)
[2019-08-15] MEDS: Nystatin SUSPENSION* 100000 UNITS/ML 5 ML UDC PO SCH ×2 (07:38→13:28)
[2019-08-15] MEDS: Mometasone/Formoter 200/5 MDI INH SCH (07:53)
[2019-08-15] MEDS ORDERED: Potassium Chlor TAB* 20 MEQ TAB.ER PO SCH (09:00)
--- NOTE | 2019-08-15 09:29 | DS ---
- Discharge Summary Admit date: 08/08/2019 Discharge date: 08/15/2019 DISCHARGE DIAGNOSIS: 1. unintentional medication overdose 2. respiratory failure 3. pseudotumor cerebri 4. hypokalemia 5. chronic pain syndrome 6. metastatic breast cancer DISCHARGE CONDITION: stable DISCHARGE ACTIVITY: as tolerated DISCHARGE MEDICATIONS: Home Medications Medication Instructions Recorded Confirmed Type DULoxetine DR CAP* [Cymbalta CAP*] 60 mg PO BEDTIME 05/11/18 08/08/19 History ALPRAZolam TAB* [Xanax TAB*] 1 mg PO QID PRN 06/07/18 08/08/19 History Carisoprodol [Soma] 250 mg PO Q4H MDD 1000 10/30/18 08/08/19 History Docusate CAP* [Colace Cap*] 200 mg PO BID PRN 04/14/19 08/08/19 History Cetirizine* [ZyrTEC 10 MG TAB*] 10 mg PO DAILY 07/06/19 08/08/19 History Ondansetron TAB* [Zofran 4 MG Tab*] 4 mg PO .6X/DAY PRN 07/06/19 08/08/19 History Polyethylene Glycol 3350* 17 gm PO DAILY PRN 07/06/19 08/08/19 History [Miralax*] traZODone TAB* [Desyrel TAB*] 200 mg PO DAILY 07/06/19 08/08/19 History Budesonide/Formote 160/4.5(NF) 2 puff INH BID PRN 07/23/19 08/08/19 History [Symbicort 160/4.5 (NF)] Rivaroxaban TAB(*) [Xarelto 20 mg] 20 mg PO DAILY #0 tab 07/27/19 08/08/19 Rx Brexpiprazole (Nf) [Rexulti] 2 mg PO DAILY 08/08/19 08/08/19 History Gabapentin CAP(*) [Neurontin 300 600 mg PO TID cap 08/15/19 Rx CAP(*)] Potassium Chlor TAB* [Potassium 40 meq PO BID #60 tab.er 08/15/19 Rx Chlor TAB 20 MEQ*] acetaZOLAMIDE TAB* [Diamox Tab*] 250 mg PO BID #60 tab 08/15/19 Rx fentaNYL PATCHs 100 MCG/HR* 150 mcg TRANSDERM Q72H patch 08/15/19 Rx [Duragesic Patch 100 Mcg/Hr *] levETIRAcetam TAB* [Keppra TAB*] 1,000 mg PO BID #120 tab 08/15/19 Rx levETIRAcetam [Keppra] 250 mg PO BID #60 tablet 08/15/19 Rx oxyCODONE TAB* [Roxycodone TAB 5 5 mg PO Q4H PRN #60 tab MDD 30 08/15/19 Rx mg*] DISCHARGE FOLLOW UP: 1. Dr. Hill, call saturday for apt this week 2. Dr. Urbina, call for apt 3-4 weeks 3. [employer] CUTTER Valery [facility] 4. Terri Salinas [facility] counseling HOSPITAL COURSE: very complicated 43 yo F w metastatic breast cancer, recent diagnosis of pseudotumor cerebri, chronic pain, and depression/anxiety on narcotics and xanax who presented unresponsive. She vomited and aspirated on admission. She was started on broad spectrum antibiotics and had an extensive work up to delineate cause including multiple scans. She had diffuse slowing on 2 EEGs and was started on antiepileptics. Ultimately she improved and was extubated and divulged to me that she had unintentionally taken too much of her narcotics and xanax. Extensive psychiatric review determined that this was very likely unintentional with little clear management of her medications at home, and poor oversight of her xanax administration by her nuclear logging engineer who had not seen her in 6 months. Pushpa contracts to decreasing her pain medications and closer surveillance. We will stop her dilaudid as an outpatient and she has agreed to bring this back to the clinic. She will decrease her fentanyl patch from 250 mcg to 150 mcg and her oxycodone from 10-20 mg q4 hrs to 5 mg q4 hrs. 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 She will have close follow up with her child protective services social worker, Terri Salinas, and will be seen in my office next week for follow up and blood work. >30 mins spent, >50% inf torie to face counseling.
[2019-08-15] MEDS ORDERED: fentaNYL PATCH 75 MCG/HR* 75 MCG TRANSDERM SCH (10:00)
[2019-08-15 11:45] VITALS: BP 116/43
== END 2019-08-15 16:35 | disposition home health service (06) | DRG 812 ==
LOC: ED 18:56 → ICU 21:15 → MED 08-14 09:40
PROVIDERS: ADMIT Internal Medicine; ATTEND Internal Medicine Hematology & Oncology
PROC: 5A1945Z Respiratory Ventilation, 24-96 Consecutive Hours (ICD-10-PCS; principal; 2019-08-08)
PROC: 0BH17EZ Insertion of Endotracheal Airway into Trachea, Via Natural or Artificial Opening (ICD-10-PCS; 2019-08-08)
PROC: 3E033XZ Introduction of Vasopressor into Peripheral Vein, Percutaneous Approach (ICD-10-PCS; 2019-08-08)
PROC: 4A00X4Z Measurement of Central Nervous Electrical Activity, External Approach (ICD-10-PCS; 2019-08-11)
DX: T40.2X2A Poisoning by other opioids, intentional self-harm, initial encounter (principal); J96.01 Acute respiratory failure with hypoxia; R40.2342 Coma scale, best motor response, flexion withdrawal, at arrival to emergency department; R40.2112 Coma scale, eyes open, never, at arrival to emergency department; R40.2212 Coma scale, best verbal response, none, at arrival to emergency department; G93.41 Metabolic encephalopathy; N17.9 Acute kidney failure, unspecified; M62.82 Rhabdomyolysis; E87.2 Acidosis; C79.31 Secondary malignant neoplasm of brain; C79.51 Secondary malignant neoplasm of bone; C78.7 Secondary malignant neoplasm of liver and intrahepatic bile duct; G91.2 (Idiopathic) normal pressure hydrocephalus; C50.919 Malignant neoplasm of unspecified site of unspecified female breast; J44.9 Chronic obstructive pulmonary disease, unspecified; G89.4 Chronic pain syndrome; F32.9 Major depressive disorder, single episode, unspecified; G43.909 Migraine, unspecified, not intractable, without status migrainosus; F43.10 Post-traumatic stress disorder, unspecified; K21.9 Gastro-esophageal reflux disease without esophagitis; G62.9 Polyneuropathy, unspecified; T45.1X5A Adverse effect of antineoplastic and immunosuppressive drugs, initial encounter; I95.9 Hypotension, unspecified; R41.82 Altered mental status, unspecified; R79.89 Other specified abnormal findings of blood chemistry; I50.9 Heart failure, unspecified; E78.00 Pure hypercholesterolemia, unspecified; M19.90 Unspecified osteoarthritis, unspecified site; F41.9 Anxiety disorder, unspecified; F17.210 Nicotine dependence, cigarettes, uncomplicated; G93.2 Benign intracranial hypertension; E87.6 Hypokalemia; D69.6 Thrombocytopenia, unspecified; T17.918A Gastric contents in respiratory tract, part unspecified causing other injury, initial encounter; Z86.718 Personal history of other venous thrombosis and embolism; Z88.8 Allergy status to other drugs, medicaments and biological substances; Z91.040 Latex allergy status; Z91.011 Allergy to milk products; Z91.048 Other nonmedicinal substance allergy status; Y92.9 Unspecified place or not applicable; Z79.899 Other long term (current) drug therapy; Z99.81 Dependence on supplemental oxygen; Z92.21 Personal history of antineoplastic chemotherapy; Z91.5 Personal history of self-harm; Z91.410 Personal history of adult physical and sexual abuse
CPT/HCPCS: 36415; 36600; 70450; 70496; 70544; 70551; 71045; 71250; 74176; 80048; 80053; 80076; 80202; 80307; 80320; 80329; 81003; 82140; 82550; 82553; 82803; 83605; 83735; 84100; 84132; 84484; 84702; 85025; 85027; 85610; 85730; 86022; 86850; 86900; 86901; 87040; 87070; 87106; 87205; 87641; 87899; 93005; 93306; 94003; 94640; 95819; 95822; 96365; 99232; 99233; 99239; 99285; A9270-GY; C8929; G0480; J0692; J0696; J1200; J1642; J1644; J1720; J1940; J1953; J2270; J2310; J2405; J2543; J2704; J2930; J3010; J3370; J3475; J3480; Q9967

== ENCOUNTER 2019-09-23 11:28 | Inpatient (IN) | payer OTHER ==
[2019-09-23] MEDS ORDERED: Pantoprazole IV* 40 MG IV ONE (12:11)
[2019-09-23] MEDS ORDERED: NS 0.9% 1000 ML** 1,000 ML IV SCH (12:15)
[2019-09-23 12:16] LABS: ABS Basophils 0.1 10^3/ul (0-0.2); ABS Eosinophils 0.2 10^3/ul (0-0.6); ABS Lymphocytes 2.1 10^3/ul (1.0-4.8); ABS Monocytes 0.6 10^3/ul (0-0.8); ABS Neutrophils 8.8 10^3/ul (1.5-7.7); Eosinophil % 1.8 %; Hematocrit 28 % (35-47); Hemoglobin 8.5 g/dL (12.0-16.0); Lymphocyte % 17.7 %; Mean Corpuscular HGB Conc 30 g/dL (31-36); Mean Corpuscular Hemoglobin 23 pg (27-31); Mean Corpuscular Volume 75 fL (80-97); Mean Platelet Volume 8.3 fL (7.4-10.4); Nucleated Red Blood Cells % 0.3; Platelet Count 169 10^3/uL (150-450); Red Blood Count 3.74 10^6 /uL (3.70-4.87); Red Cell Distribution Width 23 % (10-15); White Blood Count 11.8 10^3/uL (3.5-10.8)
[2019-09-23] MEDS ORDERED: Mometasone/Formoter 200/5 MDI INH PRN (12:18)
[2019-09-23] MEDS ORDERED: Ondansetron TAB* 4 MG PO PRN (12:18)
[2019-09-23 12:27] LABS: Albumin 3.7 g/dL (3.2-5.2); Calcium 8.5 mg/dL (8.6-10.3); Potassium 2.9 mmol/L (3.5-5.0); Total Bilirubin 0.6 mg/dL (0.2-1.0)
[2019-09-23 12:33] LABS: Albumin/Globulin Ratio 1.2 (1-3); BUN/Creatinine Ratio 22.8 (8-20); EGFR African American 140.7 (>60); EGFR Non-African American 116.3 (>60); Total Protein 6.7 g/dL (6.4-8.9)
[2019-09-23] MEDS ORDERED: fentaNYL PATCH 75 MCG/HR* 75 MCG TRANSDERM SCH (14:00)
[2019-09-23] MEDS ORDERED: KCL 20 MEQ/100 ML IVPREMIX* 20 MEQ/100 ML BAG IV ONE (14:19)
[2019-09-23] MEDS: Gabapentin CAP(*) 300 MG PO SCH ×2 (15:09→20:41)
[2019-09-23 17:14] LABS: ABS Basophils 0.1 10^3/ul (0-0.2); ABS Eosinophils 0.2 10^3/ul (0-0.6); ABS Monocytes 0.8 10^3/ul (0-0.8); ABS Neutrophils 8.8 10^3/ul (1.5-7.7); Hematocrit 27 % (35-47); Hemoglobin 8.3 g/dL (12.0-16.0); Lymphocyte % 16.7 %; Mean Corpuscular HGB Conc 30 g/dL (31-36); Mean Corpuscular Hemoglobin 22 pg (27-31); Mean Corpuscular Volume 73 fL (80-97); Mean Platelet Volume 8.1 fL (7.4-10.4); Nucleated Red Blood Cells % 0.1; Platelet Count 157 10^3/uL (150-450); Red Blood Count 3.71 10^6 /uL (3.70-4.87); Red Cell Distribution Width 23 % (10-15)
[2019-09-23 17:30] LABS: Albumin 3.4 g/dL (3.2-5.2); Albumin/Globulin Ratio 1.1 (1-3); BUN/Creatinine Ratio 22.9 (8-20); Calcium 8.6 mg/dL (8.6-10.3); EGFR African American 171.6 (>60); EGFR Non-African American 141.8 (>60); Potassium 3.1 mmol/L (3.5-5.0); Total Bilirubin 0.6 mg/dL (0.2-1.0); Total Protein 6.4 g/dL (6.4-8.9)
[2019-09-23] MEDS: fentaNYL Patch Check Q Shift 1 NOTE FOLLOW UP SCH (19:11)
--- NOTE | 2019-09-23 19:29 | CONS ---
GASTROENTEROLOGY CONSULT REPORT: DATE OF CONSULT: 09/23/19 REQUESTING PROVIDER: Dr. Hill and Patricia Cordero NP.* REASON FOR CONSULT: Hemoccult positive stool. HISTORY OF PRESENT ILLNESS: Ms. Guevara is a 44-year-old woman with a history of metastatic breast cancer; chronic pain syndrome, on pain medication; anxiety/ depression; COPD, who is admitted given concern for GI bleed. History largely obtained from the chart as the patient is very somnolent at the time of interview. She provides minimal history and only short responses to questions. It seems that she had a hemoglobin of 7.8 on 09/17/19. Her hemoglobin has bounced around from the 7 to 9 range most recently. She was given a unit of blood. Hemoccult positive stool testing. Seen in clinic today at [facility]. She reported having some shortness of breath that improved with the blood transfusion last week. Having some fatigue and abdominal discomfort. Decision was made to obtain blood work and admit for workup of possible GI bleed. On arrival to the hospital, repeat labs demonstrating hemoglobin of 8.5 and hematocrit of 28. Labs 6 hours later notable for a hemoglobin of 8.3 and hematocrit of 27. MCV low at 73 on the most recent blood work. Labs also notable for a potassium of 2.9 with a repeat of 3.1. The patient is on Xarelto for ovarian vein thrombosis. The Xarelto was last taken on Saturday evening. On interview, Ms. Guevara reports that she has been having brown stool 3 to 4 times a day. The stool is a bit softer than normal. She has not seen any melena or bright red blood. She reports some nausea without vomiting. No reflux. Some right lower abdominal discomfort. She is quite somnolent, although she is not certain why. PAST MEDICAL HISTORY: 1. Metastatic breast cancer followed by Dr. Hill. 2. COPD. 3. Depression/anxiety. 4. History of ovarian vein thrombosis, on Xarelto. 5. Chronic pain syndrome, on pain medications. 6. Asthma. 7. Obesity. PAST SURGICAL HISTORY: Appendectomy, back surgery x3, , cholecystectomy. HOME MEDICATIONS: 1. Acetazolamide 1 tablet 250 mg twice daily. 2. Anastrozole daily. 3. Cetirizine 10 mg daily. 4. Cymbalta 60 mg at bedtime. 5. Fentanyl patch 150 mcg per hour, every 72 hours. 6. Gabapentin 600 mg t.i.d. 7. Klor-Con. 8. Keppra 750 mg twice daily. 9. Ondansetron as needed. 10. Oxycodone 5 mg every 4 hours as needed. 11. Rexulti 2 mg daily. 12. Carisoprodol 250 mg every 4 hours. 13. Symbicort twice daily as needed. 14. Trazodone 200 mg daily. 15. Xanax 1 mg 4 times a day as needed. 16. Xarelto 20 mg daily. ALLERGIES: GADOLINIUM, VENLAFAXINE, LATEX, MILK, ADHESIVE TAPE, PROCHLORPERAZINE, PROMETHAZINE. FAMILY HISTORY: No relevant GI or liver disease in family. SOCIAL HISTORY: Per chart. The patient is a smoker. Unclear alcohol or drug use status. On disability. REVIEW OF SYSTEMS: Review of systems unable to be fully obtained as the patient is quite somnolent. PHYSICAL EXAM: Vital Signs: Afebrile, heart rate 100s, blood pressure 114/50, 91% to 94% on room air. General: Very somnolent, obese woman. Responsive to verbal stimuli, although falls asleep fairly easily. HEENT: Mucous membranes moist. Cardiovascular: Sinus tachycardia. Pulmonary: Clear lungs in anterior lung howe. Abdomen: Soft, obese. No significant tenderness. No guarding. Rectal: Deferred given quite somnolent state and absence of overt bleeding on history. DIAGNOSTIC STUDIES/LAB DATA: Labs reviewed. White count 12, hemoglobin 8.3, hematocrit 27, MCV 73, platelet count 157. Potassium 3.1. AST 56, ALT 48, alk phos 155, bilirubin 0.6. Imaging: CT abdomen and pelvis was performed on 09/08/19, which demonstrated mass that could represent adenopathy below right pectoralis minor muscle as well as a lesion in the right breast. Hepatomegaly and a liver lesion noted. IMPRESSION AND PLAN: Ms. Guevara is a 44-year-old obese woman with a history of metastatic breast cancer; ovarian vein thrombosis, on Xarelto; chronic pain syndrome, on narcotics; chronic obstructive pulmonary disease/asthma, who is admitted with Hemoccult positive stools and anemia in the setting of anticoagulation. The patient's hemoglobin has remained fairly low since at the end of last year, although she did drop from 9 to 7.8 in the end of August. She was given an unit of blood. Her blood counts have remained fairly stable it would appear after this unit of blood, although her Hemoccult stool testing was positive. In the setting of anticoagulation, this raises concern for possible slow oozing or bleeding source. This is further supported by her labs, which look iron deficient as well. She complains of some lower abdominal discomfort, although she denies any overt bleeding in her bowel movements. Vital signs are stable. Arguing against hemodynamically significant active gastrointestinal bleed at this time. I am a bit concerned about her mental status as she is quite somnolent, which may be due to her chronic narcotics and sedating medications. Soft diet okay for tonight, assuming mental status improves. NPO after midnight. Continue to monitor CBC every 8 hours. IV PPI b.i.d. Hold Xarelto. Plan for an EGD tomorrow to assess for upper GI source of a blood loss anemia. Thank you very much for this consult. Please contact GI with any acute clinical change. [id number]/[facility] #: [id number] [place]
[2019-09-23] MEDS: levETIRAcetam TAB* 500 MG PO SCH (20:41)
[2019-09-23] MEDS: DULoxetine DR CAP* 60 MG CAP.DR PO SCH (20:41)
[2019-09-23] MEDS: acetaZOLAMIDE TAB* 250 MG PO SCH (20:43)
[2019-09-23] MEDS ORDERED: LEVETIRACETAM 250 MG PO SCH (21:00)
[2019-09-23] MEDS: oxyCODONE TAB* 5 MG TAB PO PRN (23:01)
[2019-09-24 06:21] LABS: ABS Basophils 0.1 10^3/ul (0-0.2); ABS Eosinophils 0.2 10^3/ul (0-0.6); ABS Monocytes 0.8 10^3/ul (0-0.8); ABS Neutrophils 10.2 10^3/ul (1.5-7.7); ABS Nucleated RBC 0.1 10^3/ul; Eosinophil % 1.8 %; Hematocrit 34 % (35-47); Hemoglobin 10.1 g/dL (12.0-16.0); Lymphocyte % 15.2 %; Mean Corpuscular HGB Conc 29 g/dL (31-36); Mean Corpuscular Hemoglobin 22 pg (27-31); Mean Corpuscular Volume 76 fL (80-97); Mean Platelet Volume 8.3 fL (7.4-10.4); Nucleated Red Blood Cells % 0.4; Platelet Count 188 10^3/uL (150-450); Red Blood Count 4.55 10^6 /uL (3.70-4.87); Red Cell Distribution Width 24 % (10-15); White Blood Count 13.3 10^3/uL (3.5-10.8)
[2019-09-24 06:38] LABS: Albumin 3.8 g/dL (3.2-5.2); Albumin/Globulin Ratio 1.1 (1-3); Calcium 8.9 mg/dL (8.6-10.3); EGFR African American 130.1 (>60); EGFR Non-African American 107.6 (>60); Globulin 3.4 g/dL (2-4); Potassium 3.3 mmol/L (3.5-5.0); Total Bilirubin 0.9 mg/dL (0.2-1.0); Total Protein 7.2 g/dL (6.4-8.9)
[2019-09-24] MEDS: fentaNYL Patch Check Q Shift 1 NOTE FOLLOW UP SCH ×2 (06:49→19:28)
[2019-09-24] MEDS: NS 0.9% w/ 40 Meq KCL 1000 ML* 1,000 ML IV SCH (07:59)
[2019-09-24] MEDS: CMCS: Anastrozole (NF) 1 MG TAB PO SCH (08:36)
[2019-09-24] MEDS: levETIRAcetam TAB* 500 MG PO SCH ×2 (08:36→20:43)
[2019-09-24] MEDS: Pantoprazole IV* 40 MG IV SCH (08:36)
[2019-09-24] MEDS: Gabapentin CAP(*) 300 MG PO SCH ×4 (08:37→20:42)
[2019-09-24] MEDS: acetaZOLAMIDE TAB* 250 MG PO SCH ×2 (08:37→20:41)
[2019-09-24] MEDS: BREXPIPRAZOLE 1 MG PO SCH (08:43)
[2019-09-24] MEDS ORDERED: traZODone TAB* 100 MG PO SCH ×2 (09:00→21:00)
[2019-09-24] MEDS ORDERED: Ondansetron INJ* 2 MG/ML VIAL IV PRN (09:48)
--- NOTE | 2019-09-24 10:01 | PN ---
Progress Note - Progress Note Date of Service: 09/24/19 SOAP: Subjective: []Admitted yesterday following outpatient 3/3 positive stool occult blood samples with precipitous drop in hmg from 9.0 to 7.8 on 09/17/19. She had one unit of blood on 09/17/19 and yesterday her hmg was stable @ 8.3, however with ongoing full dose anticoagulation she was admitted for work-up GI bleed. She has been hemodynamically stable with baseline tachycardia and intermittent somnelence (chronic pain with narcotic use, severe depression, and hx. of pseudo tumor cerebri). She received an additional unit of blood last night. This AM Pushpa continues to complain of some lower abd. pain and mild nausea. She is NPO and notes her mouth "Is so dry." She states understanding of plan for EGD this afternoon. Denies need for nicotine replacement. Medications: Acetazolamide (Diamox Tab*) 250 mg PO BID [facility] Last Admin: 09/24/19 08:37 Dose: 250 mg Alprazolam (Xanax Tab*) 1 mg PO QID PRN PRN Reason: ANXIETY Anastrozole (Arimidex (Nf)) 1 mg PO DAILY [facility] Last Admin: 09/24/19 08:36 Dose: 1 mg Brexpiprazole (Rexulti) 2 mg PO DAILY [facility] Last Admin: 09/24/19 08:43 Dose: Not Given Duloxetine HCl (Cymbalta Cap*) 60 mg PO BEDTIME [facility] Last Admin: 09/23/19 20:41 Dose: 60 mg Fentanyl (Duragesic Patch 75 Mcg/Hr*) 150 mcg TRANSDERM Q72H [facility] Last Admin: 09/23/19 15:37 Dose: 150 mcg Gabapentin (Neurontin Cap(*)) 600 mg PO TID [facility] Last Admin: 09/24/19 08:37 Dose: 600 mg Potassium Chloride/Sodium Chloride (Ns 0.9% W/ 40 Meq Kcl 1000 Ml*) 1,000 mls @ 75 mls/hr IV PER RATE [facility] Last Admin: 09/24/19 07:59 Dose: 75 mls/hr Levetiracetam (Keppra Tab*) 1,250 mg PO BID [facility] Last Admin: 09/24/19 08:36 Dose: 1,250 mg Mometasone Furoate/Formoterol Fumar (Dulera 200/5 Mdi*) 2 puff INH BID PRN; Protocol PRN Reason: SOB/WHEEZING Ondansetron HCl (Zofran Tab*) 4 mg PO Q4H PRN PRN Reason: NAUSEA Ondansetron HCl (Zofran Inj*) 4 mg IV Q4H PRN PRN Reason: NAUSEA Oxycodone HCl (Roxycodone Tab*) 5 mg PO Q4H PRN PRN Reason: PAIN - MODERATE Last Admin: 09/23/19 23:01 Dose: 5 mg Pantoprazole Sodium (Protonix Iv*) 40 mg IV DAILY [facility] Last Admin: 09/24/19 08:36 Dose: 40 mg Pharmacy Profile Note (Fentanyl Patch Check Q Shift) 1 note FOLLOW UP 0700, 1900 [facility] Last Admin: 09/24/19 06:49 Dose: 1 note Potassium Chloride (Klor Con Er Tab*) 40 meq PO BID [facility] Trazodone HCl (Desyrel Tab*) 200 mg PO DAILY [facility] Objective: [] Vital Signs Temp Pulse Resp BP Pulse Ox 98.5 F 102 16 119/55 96 09/24/19 07:35 09/24/19 07:35 09/24/19 08:37 09/24/19 07:35 09/24/19 07:35 A&Ox3, EOMI, sleepy but arouses easily and conversing clearly HRR, S1S2 LS dim. bilat Hypoactive BS, abd. round, obese, and non-tender Spoon shaped nails Laboratory Results - last 24 hr 09/23/19 09/23/19 09/23/19 12:03 12:03 16:57 WBC 11.8 H RBC 3.74 Hgb 8.5 L Hct 28 L MCV 75 L MCH 23 L MCHC 30 L RDW 23 H Plt Count 169 MPV 8.3 Neut % (Auto) 74.7 Lymph % (Auto) 17.7 [place] % (Auto) 5.2 Eos % (Auto) 1.8 Baso % (Auto) 0.6 Absolute Neuts (auto) 8.8 H Absolute Lymphs (auto) 2.1 Absolute Monos (auto) 0.6 Absolute Eos (auto) 0.2 Absolute Basos (auto) 0.1 Absolute Nucleated RBC 0.0 Nucleated RBC % 0.3 Sodium 135 140 Potassium 2.9 L 3.1 L Chloride 103 107 Carbon Dioxide 24 26 Anion Gap 8 7 BUN 13 11 Creatinine 0.57 0.48 L Est GFR ( Amer) 140.7 171.6 Est GFR (Non-Af Amer) 116.3 141.8 BUN/Creatinine Ratio 22.8 H 22.9 H Glucose 307 H 131 H Calcium 8.5 L 8.6 Total Bilirubin 0.60 0.60 AST 65 H 56 H ALT 50 48 Alkaline Phosphatase 186 H 155 H Total Protein 6.7 6.4 Albumin 3.7 3.4 Globulin 3.0 3.0 Albumin/Globulin Ratio 1.2 1.1 Blood Type Antibody Screen Crossmatch 09/23/19 09/23/19 09/24/19 16:58 16:58 05:58 WBC 12.0 H 13.3 H RBC 3.71 4.55 Hgb 8.3 L 10.1 L Hct 27 L 34 L MCV 73 L 76 L MCH 22 L 22 L MCHC 30 L 29 L RDW 23 H 24 H Plt Count 157 188 MPV 8.1 8.3 Neut % (Auto) 73.7 76.4 Lymph % (Auto) 16.7 15.2 [place] % (Auto) 6.6 5.6 Eos % (Auto) 2.0 1.8 Baso % (Auto) 1.0 1.0 Absolute Neuts (auto) 8.8 H 10.2 H Absolute Lymphs (auto) 2.0 2.0 Absolute Monos (auto) 0.8 0.8 Absolute Eos (auto) 0.2 0.2 Absolute Basos (auto) 0.1 0.1 Absolute Nucleated RBC 0.0 0.1 Nucleated RBC % 0.1 0.4 Sodium Potassium Chloride Carbon Dioxide Anion Gap BUN Creatinine Est GFR ( Amer) Est GFR (Non-Af Amer) BUN/Creatinine Ratio Glucose Calcium Total Bilirubin AST ALT Alkaline Phosphatase Total Protein Albumin Globulin Albumin/Globulin Ratio Blood Type O Positive Antibody Screen Negative Crossmatch See Detail 09/24/19 05:58 WBC RBC Hgb Hct MCV MCH MCHC RDW Plt Count MPV Neut % (Auto) Lymph % (Auto) [place] % (Auto) Eos % (Auto) Baso % (Auto) Absolute Neuts (auto) Absolute Lymphs (auto) Absolute Monos (auto) Absolute Eos (auto) Absolute Basos (auto) Absolute Nucleated RBC Nucleated RBC % Sodium 140 Potassium 3.3 L Chloride 105 Carbon Dioxide 26 Anion Gap 9 BUN 11 Creatinine 0.61 Est GFR ( Amer) 130.1 Est GFR (Non-Af Amer) 107.6 BUN/Creatinine Ratio 18.0 Glucose 99 Calcium 8.9 Total Bilirubin 0.90 AST 168 H ALT 73 H Alkaline Phosphatase 165 H Total Protein 7.2 Albumin 3.8 Globulin 3.4 Albumin/Globulin Ratio 1.1 Blood Type Antibody Screen Crossmatch Assessment: []44 yo female with metastatic ER+, HER2+ breast cancer on palliative Kadcyla s/ p C7 as well as AI & Lupron tolerating well. She has been on full dose anticoagulation d/t history of ovarian thrombosis (dx. 08/2016) and has new finding of positive stool guiacs with macrocytic anemia concerning for slow GI bleed. Plan: []1. GI bleed: - anticoagulation on hold - s/p 2 units of blood (09/17 & 09/22) - appreciate GI consult - EGD this afternoon, currently NPO - on IV protonix 2. DEBORAH (07/2019 labs ferritin 20, SATs 5%) - 2/2 GI bleed as above, s/p transfusion - consideration of IV iron as outpatient dependent on findings 3. Hypokalemia likely r/t poor PO intake - IV and PO replacement Dispo: EGD tonight and will require overnight monitoring d/t sedation, dependent on results may be stable d/c tomorrow AM
[2019-09-24] MEDS: Potassium Chlor TAB* 20 MEQ TAB.ER PO SCH ×2 (10:44→20:42)
[2019-09-24] MEDS ORDERED: fentaNYL* 50 MCG/ML 2 ML VIAL (100 MCG VIAL) ONE (11:19)
[2019-09-24] MEDS ORDERED: Midazolam* 1 MG/ML 10 ML VIAL (10 MG) ONE (11:19)
[2019-09-24] MEDS ORDERED: diPHENhydraMINE IV* 50 MG/ML 1 ml VIAL (BENADRYL) ONE (11:52)
--- NOTE | 2019-09-24 13:03 | PN ---
Progress Note - Progress Note Date of Service: 09/24/19 Note: GI Brief EGD Note: E: mild GE junction variable cm sliding hiatal hernia, small jairo erosion. no fresh blood. D: normal. Rec: Unclear if jairo erosion is source of occult positivity, certainly could be. would monitor H/H if continuing to decrease would consider flex sig/colon pending clinical picture and patient wishes. PPI daily Continuous O2 monitoring today and O2 via NC ok to advance diet. Sharad Soliz DO 09/24/19 1801
[2019-09-24] MEDS: oxyCODONE TAB* 5 MG TAB PO PRN ×3 (15:05→23:55)
[2019-09-24] MEDS: DULoxetine DR CAP* 60 MG CAP.DR PO SCH (20:39)
[2019-09-24] MEDS: ALPRAZolam TAB* 0.5 MG PO PRN (20:44)
[2019-09-25] MEDS: NS 0.9% w/ 40 Meq KCL 1000 ML* 1,000 ML IV SCH (00:03)
[2019-09-25] MEDS: ALPRAZolam TAB* 0.5 MG PO PRN (04:27)
[2019-09-25] MEDS: oxyCODONE TAB* 5 MG TAB PO PRN (04:28)
--- NOTE | 2019-09-25 05:11 | PRO ---
CC: Dr. Jill Hill* ESOPHAGOGASTRODUODENOSCOPY REPORT: DATE OF PROCEDURE: 09/24/19 INDICATION FOR PROCEDURE: Anemia, occult positivity. PROCEDURE PERFORMED: Complete esophagogastroduodenoscopy. MEDICATIONS GIVEN: Include: 1. 50 mg IV Benadryl. 2. 3 mg IV midazolam. 3. 50 mcg IV fentanyl. DESCRIPTION OF PROCEDURE: After the EGD procedure, including the risks, benefits, and alternatives with the risks not limited to perforation, surgery, missed lesions, and/or were explained to the patient, written informed consent was obtained, IV medication was given, and a bite-block was placed between the teeth. The adult Olympus gastroscope was then inserted into the patient's oropharynx into the tubular esophagus. There was very mild GE junction variability without any inflammation or ulceration. The scope was then advanced through the lower esophageal sphincter into the stomach. Direct view showed mild gastritis. No hemorrhagic component. On retroflexion, a 2 to 3 cm hiatal hernia was appreciated. There was a Hunter erosion with some scant erythema, but no fresh hemorrhage. The scope was then advanced through the widely patent pylorus into the duodenal bulb, C- loop, and distal duodenum and these were normal in appearance. The scope was then removed from the patient. She tolerated the procedure well. She returned to the recovery room in stable condition. IMPRESSION: 1. Complete esophagogastroduodenoscopy with biopsies. 2. Hiatal hernia with Hunter erosion, nonbleeding. 3. Mild gastritis. 4. Otherwise normal EGD. RECOMMENDATIONS: Would recommend PPI daily. Continues to monitor for overt signs of bleeding. It is certainly possible that the Hunter erosion could explain the occult positivity if she has ongoing blood loss and the patient desires could consider colonoscopy or flexible sigmoidoscopy in the future. [id number]/[facility] #: [id number] MTDD
[2019-09-25] MEDS: fentaNYL Patch Check Q Shift 1 NOTE FOLLOW UP SCH (07:50)
[2019-09-25] MEDS: Pantoprazole IV* 40 MG IV SCH (10:17)
[2019-09-25] MEDS: Potassium Chlor TAB* 20 MEQ TAB.ER PO SCH (10:21)
[2019-09-25] MEDS: Gabapentin CAP(*) 300 MG PO SCH (10:22)
[2019-09-25] MEDS: levETIRAcetam TAB* 500 MG PO SCH (10:23)
[2019-09-25] MEDS: BREXPIPRAZOLE 1 MG PO SCH (10:24)
[2019-09-25] MEDS: acetaZOLAMIDE TAB* 250 MG PO SCH (10:25)
[2019-09-25] MEDS: CMCS: Anastrozole (NF) 1 MG TAB PO SCH (10:25)
[2019-09-25 12:17] VITALS: BP 145/74
--- NOTE | 2019-09-25 21:37 | DS ---
CC: Dr. Gar * DISCHARGE SUMMARY: DATE OF ADMISSION: 09/23/19 DATE OF DISCHARGE: 09/25/19 PRIMARY ONCOLOGIST: Dr. Jill Hill. CONSULTING NEWSPAPER STUFFER: Dr. Radha Gar. ATTENDING PHYSICIAN: Dr. Jill Hill.* (DICTATED BY EBONY GALAN) DISCHARGING PROVIDER: EBONY Galan. PRIMARY DISCHARGE DIAGNOSES: 1. Gastrointestinal bleed with identification of Hunter erosion associated with hiatal hernia on EGD as well as some mild gastritis but no acute bleeding or large ulcerations noted. 2. Metastatic breast cancer, triple positive. Currently treated with Kadcyla, aromatase inhibitor, and Lupron. 3. Pseudotumor cerebri, currently managed with acetazolamide. 4. History of ovarian vein thrombosis, chronically anticoagulated with Xarelto. DISCHARGE MEDICATIONS: 1. Xanax 1 mg p.o. 4 times daily as needed. 2. Anastrazole 1 mg p.o. daily. 3. Rexulti 2 mg p.o. daily. 4. Symbicort 2 puffs inhaled twice daily as needed. 5. Soma 250 mg p.o. q.4 hours as needed. 6. Zyrtec 10 mg p.o. daily. 7. Docusate 200 mg p.o. twice daily. 8. Cymbalta 60 mg p.o. at bedtime. 9. Zofran 4 mg p.o. q.4 hours as needed for nausea and vomiting. 10. MiraLAX 17 g p.o. daily as needed for constipation. 11. Trazodone 200 mg p.o. daily. 12. Acetazolamide 250 mg p.o. twice daily. 13. Fentanyl patch 150 mcg transdermal q.72 hours. 14. Gabapentin 600 mg p.o. 3 times daily. 15. Keppra 1250 mg p.o. twice daily. 16. Omeprazole 40 mg p.o. daily. 17. Oxycodone 10 mg p.o. q.4 hours as needed for pain. 18. Potassium chloride 40 mEq p.o. twice daily. 19. Xarelto 20 mg p.o. daily. Medication changes: 1. Start omeprazole. HOSPITAL IMAGING: EGD showed hiatal hernia with Hunter erosion and mild gastritis. HOSPITAL COURSE: This is a 44-year-old female with metastatic triple positive breast cancer, managed by Dr. Jill Hill, who had noted drop in hemoglobin last week from 9.5 to 7.8 over a period of couple of weeks without associated symptoms. Stool testing was subsequently performed, which revealed 3 positive cards for occult blood. The patient had received 1 unit of packed red blood cells on 09/17/19 for treatment of her hemoglobin of 7.8 g/dL. She is chronically anticoagulated for history of an ovarian vein thrombosis in 2017 and was subsequently admitted for evaluation of an acute GI bleed. The patient was hemodynamically stable throughout her entire hospitalization. She underwent EGD on 09/24/[address] Soliz, which revealed hiatal hernia with Hunter erosions and mild gastritis, which could account for mild bleeding while on anticoagulation. No intervention was necessary apart from receiving IV Protonix. Hemoglobin remained stable throughout her hospitalization without any clinical signs of bleeding. DISPOSITION AND DISCHARGE PLAN: The patient is being discharged home in stable condition. She will resume her Xarelto at prior dosing and start PPI in the form of omeprazole. We will repeat CBC on 09/29/19. She has followup with Dr. Hill the following week on 10/06/19. The patient will call with any clinical signs of bleeding. No other medication changes made during this hospitalization. EBONY GALAN [id number]/[facility] #: [id number] [facility]
== END 2019-09-25 11:30 | disposition home or self-care (01) | DRG 241 ==
LOC: CHOA 11:28 → MED 12:11
PROVIDERS: ADMIT Internal Medicine Hematology & Oncology; ATTEND Internal Medicine Hematology & Oncology
PROC: 30233N1 Transfusion of Nonautologous Red Blood Cells into Peripheral Vein, Percutaneous Approach (ICD-10-PCS; principal; 2019-09-23)
PROC: 0DJ08ZZ Inspection of Upper Intestinal Tract, Via Natural or Artificial Opening Endoscopic (ICD-10-PCS; 2019-09-24)
DX: K29.71 Gastritis, unspecified, with bleeding (principal); C79.9 Secondary malignant neoplasm of unspecified site; I82.890 Acute embolism and thrombosis of other specified veins; Z68.41 Body mass index [BMI] 40.0-44.9, adult; D50.0 Iron deficiency anemia secondary to blood loss (chronic); K25.4 Chronic or unspecified gastric ulcer with hemorrhage; C50.919 Malignant neoplasm of unspecified site of unspecified female breast; G89.4 Chronic pain syndrome; F41.9 Anxiety disorder, unspecified; F32.9 Major depressive disorder, single episode, unspecified; J44.9 Chronic obstructive pulmonary disease, unspecified; E66.9 Obesity, unspecified; F17.210 Nicotine dependence, cigarettes, uncomplicated; K44.9 Diaphragmatic hernia without obstruction or gangrene; M54.9 Dorsalgia, unspecified; G43.909 Migraine, unspecified, not intractable, without status migrainosus; G93.2 Benign intracranial hypertension; Z79.899 Other long term (current) drug therapy; Z79.51 Long term (current) use of inhaled steroids; Z79.01 Long term (current) use of anticoagulants; Z88.8 Allergy status to other drugs, medicaments and biological substances; Z91.040 Latex allergy status; Z91.011 Allergy to milk products; Z91.048 Other nonmedicinal substance allergy status; Z28.21 Immunization not carried out because of patient refusal
CPT/HCPCS: 36415; 80053; 85025; 86850; 86900; 86901; 86922; 99156; 99157; 99215; 99222; 99232; 99239; A9270-GY; G0463; J1200; J1642; J2250; J3010; J3480; P9040

== ENCOUNTER 2019-10-14 15:13 | Inpatient (IN) | payer OTHER ==
--- NOTE | 2019-10-14 15:19 | ED ---
Altered Mental Status - HPI Summary HPI Summary: 44 y/o F presents from [facility] with altered mental status. Hx metastatic breast cancer to the brain. She was at [facility] today to receive IVFs. She was found to have decreased responsiveness and lethargy so CAT was called. Recent admission for narcotic use. She reports shortness of breath, light headedness, and not feeling well for 2 days. Symptoms aggravated by nothing. Symptoms alleviated by nothing. Medications reviewed. Allergies noted. - History Of Current Complaint Stated Complaint: UNRESPOSNIVE Hx Obtained From: Patient Onset/Duration: Still Present Timing: Constant, Lasting Days - 2 Severity Currently: None Character: Lethargy Aggravating Factor(s): Nothing Alleviating Factor(s): Nothing - Allergies/Home Medications Allergies/Adverse Reactions: Allergies Allergy/AdvReac Type Severity Reaction Status Date / Time Gadolinium-Containing Allergy Severe Anaphylatic Verified 08/20/19 17:54 Contrast Medi Shock venlafaxine Allergy Severe Hives/Diff. Verified 08/20/19 17:54 Breathing/I tching Latex, Natural Rubber Allergy Unknown Unknown Verified 08/20/19 17:54 Reaction Details milk Allergy Unknown Unknown Verified 08/20/19 17:54 Reaction Details Adhesive Tape Allergy skin break Verified 08/20/19 17:54 [Tegaderm Dressing] down prochlorperazine Allergy See Comment Verified 08/20/19 17:54 promethazine Allergy See Comment Verified 08/20/19 17:54 ANTI NAUSEA Allergy BODY Uncoded 08/20/19 17:54 TWISTS UP VERY HARD Home Medications: Home Medications DULoxetine DR CAP* [Cymbalta CAP*] 60 mg PO BEDTIME 05/11/18 [History Confirmed 10/14/19] Docusate CAP* [Colace Cap*] 200 mg PO BID PRN 04/14/19 [History Confirmed ] Cetirizine* [ZyrTEC 10 MG TAB*] 10 mg PO DAILY 07/06/19 [History Confirmed 10/13] Ondansetron TAB* [Zofran 4 MG Tab*] 4 mg PO .6X/DAY PRN 07/06/19 [History Confirmed 10/14/19] Budesonide/Formote 160/4.5(NF) [Symbicort 160/4.5 (NF)] 2 puff INH BID PRN 07/23 [History Confirmed 10/14/19] Brexpiprazole (Nf) [Rexulti] 2 mg PO DAILY 08/08/19 [History Confirmed 10/14/19] Rivaroxaban TAB(*) [Xarelto 20 mg] 20 mg PO DAILY tab 08/15/19 [Rx Confirmed ] acetaZOLAMIDE TAB* [Diamox Tab*] 250 mg PO BID #60 tab 08/15/19 [Rx Confirmed ] levETIRAcetam TAB* [Keppra TAB*] 1,000 mg PO BID #120 tab 08/15/19 [Rx Confirmed 10/14/19] oxyCODONE TAB* [Roxycodone TAB 5 mg*] 10 mg PO Q4H PRN #60 tab MDD 30 09/25/19 [ Rx Confirmed 10/14/19] Albuterol inh POWDER (NF) [Proair Respiclick] 1 puff INH Q6HR PRN 10/14/19 [ History Confirmed 10/14/19] Anastrozole (NF) [Arimidex (NF)] 1 mg PO DAILY 10/14/19 [History Confirmed 10/13] Dexamethasone TAB* [Decadron TAB*] 2 mg PO DAILY 10/14/19 [History Confirmed ] Omeprazole (Nf) [Prilosec (NF)] 40 mg PO DAILY 10/14/19 [History Confirmed 10/13] Potassium Chlor TAB* [Potassium Chlor TAB 20 MEQ*] 40 meq PO DAILY 10/14/19 [ History Confirmed 10/14/19] glyBURIDE TAB* [Diabeta TAB*] 2.5 mg PO QAM 10/14/19 [History Confirmed 10/14/19 ] Acetaminophen TAB* [Tylenol TAB*] 650 mg PO Q6H PRN tab 10/16/19 [Rx] Cefdinir [Cefdinir 300 MG CAP] 300 mg PO BID #12 capsule 10/16/19 [Rx] Lactulose* 15 ml PO QID #10 udc 10/16/19 [Rx] Nystatin SUSPENSION* 500,000 units PO QID #40 udc 10/16/19 [Rx] PMH/Surg Hx/FS Hx/Imm Hx Endocrine/Hematology History: Reports: Hx Diabetes - pt sts she takes no meds. Denies: Hx Anticoagulant Therapy, Hx Bone Marrow Disease, Hx Sickle Cell Disease, Hx Thyroid Disease, Hx Anemia, Other Endocrine/Hematological Disorders Cardiovascular History: Reports: Hx Congestive Heart Failure, Hx Deep Vein Thrombosis - Recent ovarian vein thrombosis, Hx Hypercholesterolemia, Other Cardiovascular Problems/Disorders - PT STATES DIFFICULTY WITH INJECTION FRACTION -HEART DAMAGE FROM CHEMO Denies: Hx Angina, Hx Cardiomegaly, Hx Coronary Artery Disease, Hx Hypertension, Hx Myocardial Infarction, Hx Pacemaker/ICD, Hx Peripheral Vascular Disease, Hx Rheumatic Fever, Hx Valvular Heart Disease Respiratory History: Reports: Other Respiratory Problems/Disorders - SLEEPS WITH OXYGEN AT NIGHT 2L Denies: Hx Asthma, Hx Chronic Obstructive Pulmonary Disease (COPD), Hx Lung Cancer, Hx Pulmonary Edema, Hx Pulmonary Embolism, Hx Sleep Apnea GI History: Reports: Other GI Disorders - history of ulcerative colitis Denies: Hx Cirrhosis, Hx Crohn's Disease, Hx Gall Bladder Disease, Hx Gastroesophageal Reflux Disease, Hx Gastrointestinal Bleed, Hx Hiatal Hernia, Hx Irritable Bowel, Hx Jaundice, Hx Ulcer, Hx Urosepsis History: Denies: Hx Dialysis, Hx Kidney Infection, Hx Kidney Stones, Hx Renal Disease , Other Problems/Disorders Musculoskeletal History: Reports: Hx Arthritis, Hx Back Problems Denies: Hx Bursitis, Hx Tendonitis, Other Musculoskeletal History Sensory History: Denies: Hx Cataracts, Hx Contacts or Glasses, Hx Glaucoma, Hx Hearing Aid Opthamlomology History: Denies: Hx Cataracts, Hx Contacts or Glasses, Hx Glaucoma Neurological History: Reports: Hx Migraine, Hx Spinal Cord Injury - herniated disc Denies: Hx Dementia, Hx Headaches, Hx Nerve Disease, Hx Seizures, Hx Transient Ischemic Attacks (TIA), Other Neuro Impairments/Disorders Psychiatric History: Reports: Hx Anxiety, Hx Depression, Hx Post Traumatic Stress Disorder, Hx Suicide Attempt - states she has made three attempts; h/o overdose x 2 Denies: Hx Eating Disorder, Hx Panic Disorder, Hx Substance Abuse - Cancer History Cancer Type, Location and Year: 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 Hx Chemotherapy: Yes Hx Radiation Therapy: No - Surgical History Surgery Procedure, Year, and Place: BACK SURGERY X 3 (DISCECTOMY, NO HARDWARE IMPLANTED); GAMMA KNIFE Hx Anesthesia Reactions: No - Immunization History Date of Tetanus Vaccine: UTD Date of Influenza Vaccine: NO Infectious Disease History: Denies: Hx Hepatitis, Hx Human Immunodeficiency Virus (HIV), Hx of Known/ Suspected MRSA - Family History Known Family History: Negative: Cardiac Disease, Hypertension - Social History Alcohol Use: None Hx Substance Use: No Substance Use Type: Reports: None Substance Use Comment - Amount & Last Used: fent patch Hx Tobacco Use: Yes Smoking Status (MU): Light Every Day Tobacco Smoker Type: Cigarettes Amount Used/How Often: 4-5 cigarettes per day Have You Smoked in the Last Year: Yes Review of Systems Positive: Shortness Of Breath Neurological/Mental Status: Other - AMS, light headedness All Other Systems Reviewed And Are Negative: Yes Physical Exam - Summary Physical Exam Summary: Constitutional: She is somnolent and in no acute distress Skin: Warm, Dry HENT: Normocephalic; Atraumatic Eyes: Conjunctiva normal; pupils are 3-mm and sluggish Neck: Musculoskeletal ROM normal neck. (-) JVD, (-) Stridor, (-) Nuchal rigidity Cardio: Rhythm regular, rate normal, Heart sounds normal; Intact distal pulses; Radial pulses are 2+ and symmetric. (-) Murmur Pulmonary/Chest wall: Increased work with breathing. (-) Respiratory distress, ( -) Wheezes, (-) Rales Abd: Soft, (-) tenderness, (-) Distension, (-) Guarding, (-) Rebound Musculoskeletal: (-) Edema Lymph: (-) Cervical adenopathy Neuro: Alert, Oriented x3, somnolent but responds to voice, no focal deficits, GCS 14 Psych: Mood and affect Normal Triage Information Reviewed: Yes Vital Signs Reviewed: Yes Procedures - Sedation Patient Received Moderate/Deep Sedation with Procedure: No Diagnostics - Laboratory Result Diagrams: 10/16/19 05:32 10/16/19 12:32 Lab Statement: Any lab studies that have been ordered have been reviewed, and results considered in the medical decision making process. - CT BRAIN CT Interpretation Completed By: Radiologist - IMPRESSION: 1. No acute intracranial abnormality by CT. ED physician has reviewed this imaging report. CHEST/THORAX CTA CT Interpretation Completed By: Radiologist - 1. The main pulmonary trunk and right/left main pulmonary arteries demonstrate no definite intraluminal filling defect to suggest a central pulmonary embolism. Evaluation of the remaining pulmonary arteries is nondiagnostic due to poor enhancement in artifact. 2. Small consolidations are identified at the bilateral lung bases as well as within the lingula, which has progressed. Differential considerations include atelectatic change and pneumonia. Clinical correlation and follow-up chest CT recommended. 3. Additional patchy nonspecific ground- glass density identified within the lungs bilaterally. Possible etiologies include interstitial edema, atypical infection, and pneumonitis. 4. There is an enlarged right subpectoral mass or enlarged lymph node. This is stable compared to the prior study. An additional enlarged stable right axillary/ subpectoral lymph node is identified. 5. Mild cardiomegaly. 6. There is hepatosplenomegaly. 7. Sclerotic changes again visualized involving the T10 vertebral body. There is mild sclerosis involving the T1 vertebral body posteriorly. These findings are stable compared to the prior study and can be consistent with the clinical history of metastatic disease. 8. Additional findings described above. ED physician has reviewed this imaging report. - EKG 1535 Cardiac Rate: NL - 94 BPM EKG Rhythm: Sinus Rhythm Summary of EKG Findings: An EKG at 1535 shows normal sinus rhythm 94 BPM. Prolonged QTc at 520. ED physician has reviewed and interpreted this EKG. Altered Mental Statu Course/Dx - Course Course Of Treatment: 44 y/o F w hx metastatic BRCA, hx overdose in past p/w AMS. - CAT call for decreased responsiveness. BG normal. Somnolent but arousable. No focal neuro deficits. Sluggist pupils. Also reporting SOB, denies CP. Hx difficult 2/2 mental status. Labs notable for WBC 12. UDS benzos. CT head negative. DDx includes medication overdose, seizure, less likely infection. CTA obtained in setting of SOB, limited 2/2 motion. Possible PNA. Started on vanc/cefepime by inpatient team for possible PNA. Admit for AMS. - Diagnoses Provider Diagnoses: Altered mental status, Shortness of breath - Provider Notifications Discussed Care Of Patient With: Anshul Willoughby - agrees to admit Time Discussed With Above Provider: 18:20 Discharge ED - Sign-Out/Discharge Documenting (check all that apply): Patient Departure - Discharge Plan Condition: Stable Disposition: ADMITTED TO [facility] - Billing Disposition and Condition Condition: STABLE Disposition: Admitted to [facility] - Attestation Statements Document Initiated by Scribe: Yes Documenting Scribe: Rubia Hinds Provider For Whom Scribe is Documenting (Include Credential): Talya Kulkarni MD Scribe Attestation: I, Rubia Hinds, scribed for Talya Kulkarni MD on 10/17/19 at 0658. Scribe Documentation Reviewed: Yes Provider Attestation: The documentation as recorded by the scribe, Rubia Hinds accurately reflects the service I personally performed and the decisions made by me, Talya Kulkarni MD Status of Scribe Document: Viewed
--- OUTSIDE RECORDS SUMMARY | 2019-10-14 15:29 | XMS REPORT ---
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 malignant malignant 08-16 [place] neoplasm of neoplasm of RN other other specified specified sites sites 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 Headache Headache Diagnosis Active 2017-07 Kaylynn 08-16 [place] RN Syncope and Syncope and Diagnosis Active 2017-07 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 Cardiac Diagnosis Active Kaylynn arrhythmia, arrhythmia, [place] unspecified unspecified RN 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, disorder, RN recurrent, recurrent, unspecified unspecified Anxiety Anxiety Diagnosis Active Kaylynn disorder, disorder, [place] unspecified unspecified RN Pain frequent Pain Mgmt Resolve 2017-072018-08-27 Love pain d 08-16 15:00:00 [place] 10:20: [id number] 00 Respiratory smoker Respirator Resolve 2017-072018-07-23 Love y d 08-16 15:00:00 [place] 10:20: [id number] 00 Endo/Jose anti-coagul Endo/Jose Resolve 2017-072018-06-25 Love ation d 08-16 15:00:00 [place] therapy 10:20: [id number] 00 Nutrition nutritional Nutrition Resolve 2017-072018-07-04 Love restriction d 08-16 15:00:00 [place] s 10:20: [id number] 00 Neuro confusion Neuro/Emot Resolve 2017-072018-08-06 Love present ion d 08-16 15:00:00 [place] 10:20: [id number] 00 Neuro anxiety Neuro/Emot Resolve 2017-072018-08-06 Love present ion d 08-16 15:00:00 [place] 10:20: [id number] 00 Neuro depressive Neuro/Emot Resolve 2017-072018-08-06 Love feelings ion d 08-16 15:00:00 [place] present 10:20: [id number] 00 Safety risk for Safety Resolve 2017-072018-07-04 Love hospitaliza d 08-16 15:00:00 [place] tion 10:20: [id number] 00 Safety fall risk Safety Resolve 2017-072018-07-04 Ericka factor d 08-16 15:00:00 Vivian present 10:20: 00 Musculoskel requires Musculoske Unknown 2017-07 Love etal human letal 08-16 [place] assist to 10:20: [id number] leave home 00 Cardio hypertensio Cardiovasc Resolve [...] 00 Elimination nausea/vomi Eliminatio Resolve 2017-072018-07-04 Shelby staurtg n d 08-20 15:00:00 [place] 13:00: 00 Integument skin Integument Resolve 2017-072018-07-04 [place] integrity d 2-05 15:00:00 [place] risk 15:00: 00 Social financial BRISEYDA: Resolve 2017-072019-07-20 [facility] resource Social d 2-10 15:00:00 [place] deficit Services 14:00: [id number] 00 Social knowledge/s BRISEYDA: Resolve 2017-072018-09-22 [facility] kill Social d 2-10 13:00:00 [place] deficit - Services 14:00: [id number] pt 00 Social knowledge/s BRISEYDA: Resolve 2017-072018-09-22 [facility] kill Social d 2-10 13:00:00 [place] deficit - Services 14:00: [id number] cg 00 Musculoskel requires Musculoske Unknown 2017-07 Shelby etal human letal 2- [place] assist to 15:30: leave home 00 Diagnoses knowledge/s Diagnoses Active 2017-07 Kezia kill 224 [place] deficit: cg 13:00: [id number] 00 Integument skin Integument Resolve 2017-072018-08-06 Shelby [...] [place] present 15:00: 00 Musculoskel requires Musculoske Unknown Shelby etal human letal 1-23 [place] assist to 15:00: leave home 00 Integument skin Integument Resolve 2018-08-20 Shelby integrity d 1-30 15:15:00 [place] risk 15:15: 00 Respiratory asthma Respirator Resolve 2018-09-10 Shelby y d 2-06 15:00:00 [place] 15:00: 00 Integument skin Integument Resolve 2018-2018-09-03 Shelby integrity d 2-06 13:15:00 [place] risk 15:00: 00 Neuro depressive Neuro/Emot Resolve 2018-09-17 Shelby feelings ion d 2-13 15:00:00 [place] present 13:15: 00 Safety risk for Safety Active Kezia hospitaliza 2-18 [place] tion 14:00: [id number] 00 Safety can be left Safety Unknown Kezia alone for 2-18 [place] only short 14:00: [id number] periods 00 Pain frequent Pain Mgmt Resolve 2018-09-24 Lam pain d 2-27 15:00:00 [place] 15:50: [id number] 00 Safety can be left Safety Resolve 2018-10-08 Kezia alone for d 3-04 15:00:00 [place] only short 13:00: [id number] periods 00 Cardio edema Cardiovasc Resolve 2018-2018-10-08 Shelby ular d 3-13 15:00:00 [place] 15:00: [...] [place] present 15:00: 00 Musculoskel requires Musculoske Unknown Shelby etal human letal 3-20 [place] assist to 15:00: leave home 00 Elimination nausea/vomi Eliminatio Resolve 2018-10-22 Shelby soni n d 3 15:00:00 [place] 15:00: 00 Medication oral med Meds Resolve 2018-11-05 Shelby assistance d 3 13:00:00 [place] required 15:00: 00 Respiratory dyspnea Respirator Unknown Shelby present y 4- [place] 15:00: 00 Respiratory smoker Respirator Resolve 2018-10-29 Shelby y d 4- 13:00:00 [place] 15:00: 00 Neuro anxiety Neuro/Emot Resolve 2018-11-05 Shelby present ion d 4- 13:00:00 [place] 15:00: 00 Neuro depressive Neuro/Emot Resolve 2018-11-05 Lam feelings ion d 4-08 13:00:00 [place] present 15:45: [id number] 00 Respiratory lung sounds Respirator Resolve 2018-10-29 Shelby deficit y d 4-10 13:00:00 [place] 13:00: 00 Infection s/s of Infection Resolve 2019-02-04 Shelby infection d 4-17 12:30:00 [place] 13:00: 00 Respiratory smoker Respirator Resolve 2018-11-05 Shelby y d 4-17 13:00:00 [place] 13:00: 00 Neuro depressive Neuro/Emot Resolve 2018-12-10 Lam feelings ion d 4 12:30:00 [place] present 12:20: [id number] 00 Respiratory smoker Respirator Resolve 2018-11-20 Shelby y d 4-24 12:30:00 [place] 12:30: 00 Respiratory oxygen Respirator Resolve 2018-12-04 Shelby treatments y d 5 12:30:00 [place] in home 12:30: 00 Respiratory smoker Respirator Resolve 2019-01-07 Shelby y d 5 12:30:00 [place] 12:30: 00 Safety can be left Safety Resolve 2018-12-10 Shelby alone for d 11-26 12:30:00 [place] only short 12:30: periods 00 Social knowledge/s BRISEYDA: Resolve 2018-11-26 [facility] kill Social d 11-26 13:30:00 [place] deficit - Services 13:30: [id number] pt 00 Respiratory lung sounds Respirator Resolve 2018-12-04 Shelby deficit y d 16 12:30:00 [place] 12:30: 00 Elimination diarrhea Eliminatio Resolve 2018-12-10 Shelby n d 12-04 12:30:00 [place] 12:30: 00 Social knowledge/s BRISEYDA: Resolve 2019-01-16 [facility] kill Social d 12-04 15:00:00 [place] deficit - Services 12:30: pt 00 Pain frequent Pain Mgmt Resolve 2018-12-10 [place] pain d 12-10 12:30:00 [place] 12:30: 00 Elimination nausea/vomi Eliminatio Resolve 2018-12-31 Lavinia soni n d 12-18 12:30:00 Narendra 12:30: [id number] 00 Respiratory lung sounds Respirator Resolve 2018-12-24 [place] deficit y d 605 12:30:00 [place] 12:30: 00 Elimination diarrhea Eliminatio Resolve 2018-12-31 Shelby n d 605 12:30:00 [place] 12:30: 00 Cardio hypertensio Cardiovasc Resolve 2019-01-07 Shelby braov d 6 12:30:00 [place] 12:30: 00 Respiratory lung sounds Respirator Resolve 2018-12-31 Shelby deficit y d 6-12 12:30:00 [place] 12:30: 00 Respiratory asthma Respirator Resolve 2018-12-31 Shelby y d 6 12:30:00 [place] 12:30: 00 Neuro [...] Neuro/Emot Resolve 2019-02-18 Shelby feelings ion d 620 12:10:00 [place] present 15:00: 00 Activity ADL Activity Resolve 2019-02-18 [place] assistance d 6-20 12:10:00 [place] required 15:00: 00 Musculoskel requires Musculoske Unknown Shelby etal human letal 01-08 [place] assist to 15:00: leave home 00 [...] restriction d 01-16 12:30:00 [place] s 15:00: [id number] 00 Safety can be left Safety Resolve 2019-02-18 Kezia alone for d 01-16 12:10:00 [place] only short 15:00: [id number] periods 00 Respiratory smoker Respirator Resolve 2019-01-21 Shelby y anil 7 12:30:00 [place] 12:30: 00 Nutrition nutritional Nutrition Resolve 2019-01-21 Shelby risk d 01-21 12:30:00 [place] 12:30: 00 Musculoskel requires Musculoske Unknown Shelby etal human letal 01-21 [place] assist to 12:30: leave home 00 Respiratory smoker Respirator Resolve 2019-01-28 Shelby y d 7 13:00:00 [place] 13:00: 00 Respiratory dyspnea Respirator Unknown Shebly present y 01-28 [place] 13:00: 00 Respiratory oxygen Respirator Unknown Shelby treatments y 7-10 [place] in home 13:00: 00 Elimination diarrhea Eliminatio Resolve 2019-02-04 Shelby n d 7-10 12:30:00 [place] 13:00: 00 Elimination nausea/vomi Eliminatio Active Shelby tinadam n 7-10 [place] 13:00: 00 Neuro anxiety Neuro/Emot Resolve 2019-02-18 Shelby present ion d 7-10 12:10:00 [place] 13:00: 00 Social knowledge/s BRISEYDA: Active [facility] kill Social 7-10 [place] deficit - Services 13:00: pt 00 Social knowledge/s BRISEYDA: Active [facility] kill Social 7-12 [place] deficit - Services 14:00: [id number] cg 00 Respiratory lung sounds Respirator Resolve 2019-02-04 [place] deficit y d 7-17 12:30:00 [place] 12:30: 00 Respiratory oxygen Respirator Resolve 2019-02-04 [place] treatments y d 7-17 12:30:00 [place] in home 12:30: 00 Respiratory [...] smoker Respirator Resolve 2019-02-11 Shelby y d 7- 12:30:00 [place] 12:30: 00 Respiratory lung sounds Respirator Resolve 2019-02-18 Shelby deficit y d 7-31 12:10:00 [place] 12:10: 00 Respiratory dyspnea Respirator Resolve 2019-07-16 Shelby present y d 7 12:30:00 [place] 12:10: 00 Respiratory oxygen Respirator Resolve 2019-02-18 Shelby treatments y d 7 12:10:00 [place] in home 12:10: 00 Neuro depressive Neuro/Emot Unknown Kezia feelings ion 02-18 [place] present 14:30: [id number] 00 Respiratory lung sounds Respirator Resolve 2019-03-04 Shelby deficit y d 8-14 12:20:00 [place] 12:20: 00 Respiratory smoker Respirator Resolve 2019-03-04 Shelby y d 8-14 12:20:00 [place] 12:20: 00 Respiratory dyspnea Respirator Unknown Shelby present y 8- [place] 12:20: 00 Respiratory oxygen Respirator Resolve 2019-03-04 Shelby treatments y d 814 12:20:00 [place] in home 12:20: 00 Respiratory smoker Respirator Resolve 2019-03-11 Shelby y d 821 12:30:00 [place] 12:30: 00 Respiratory dyspnea Respirator Unknown Shelby present y 03-11 [place] 12:30: 00 Respiratory oxygen Respirator Resolve 2019-03-11 Shelby treatments y d 8-21 12:30:00 [place] in home 12:30: 00 Endo/Jose knowledge/s Endo/Jose Resolve 2019-03-25 Shelby kill d 8- 12:30:00 [place] deficit: pt 12:30: 00 Elimination constipatio Eliminatio Resolve 2019-09-02 Shelby n n d 03-11 12:30:00 [place] 12:30: 00 Safety can be left Safety Resolve 2019-04-29 Kezia alone for d 03-12 12:30:00 [place] only short 15:30: [id number] periods 00 Respiratory smoker Respirator Resolve 2019-03-12 Shelby y d 8 16:00:00 [place] 16:00: 00 Respiratory oxygen Respirator Unknown Shelby treatments y 8 [place] in home 16:00: 00 Endo/Jose newly [...] Resolve 2019-04-01 Shelby etal human letal d 904 12:30:00 [place] assist to 12:30: leave home 00 Respiratory oxygen Respirator Resolve 2019-04-01 Shelby treatments y d 9- 12:30:00 [place] in home 12:30: 00 Respiratory smoker Respirator Resolve 2019-04-01 Shelby y d 911 12:30:00 [place] 12:30: 00 Respiratory smoker Respirator [...] 12:55:00 [place] 12:55: 00 Musculoskel requires Musculoske Unknown Shelby etal human letal 04-16 [place] assist to 12:55: leave home 00 [...] [place] present 13:30: 00 Musculoskel requires Musculoske Unknown 2018-07 Shelby etal human letal 0-02 [place] assist to 13:30: leave home 00 [...] d 0-14 12:45:00 [place] only short 15:00: [id number] periods 00 Musculoskel requires Musculoske Unknown 2018-07 Shelby etal human letal 0-16 [place] assist to 12:45: leave home 00 [...] left Safety Active 2018-07 Kezia alone for 12 [place] only short 15:30: [id number] periods 00 Respiratory smoker Respirator Resolve 2018-072019-07-09 Shelby y d 2-19 12:15:00 [place] 12:15: 00 Musculoskel requires Musculoske Resolve 2018-072019-07-16 Shelby etal human letal d 2-19 12:30:00 [place] assist to 12:15: leave home 00 Respiratory oxygen Respirator Resolve 2018-072019-07-16 Shelby treatments y d 2-26 12:30:00 [place] in home 12:30: 00 Respiratory smoker Respirator Resolve 2018-2019-07-16 Shelby y d 09-16 12:30:00 [place] 12:30: 00 Respiratory oxygen Respirator Resolve 2019-08-19 Shelby treatments y d 1- 12:30:00 [place] in home 12:30: 00 Respiratory pneumonia Respirator Resolve 2019-07-28 Shelby y d - 12:30:00 [place] 12:30: 00 Respiratory smoker Respirator Resolve 2019-07-23 Shelby y d 07-23 12:30:00 [place] 12:30: 00 Respiratory dyspnea Respirator Resolve 2019-08-19 Shelby present y d 07-28 12:30:00 [place] 12:30: 00 Respiratory smoker Respirator Resolve 2019-08-05 Shelby y d 07-28 12:30:00 [place] 12:30: 00 Endo/Jose diabetic Endo/Jose Resolve 2019-08-05 Shelby foot care d 07-28 12:30:00 [place] 12:30: 00 Nutrition nutritional Nutrition Resolve 2019-07-28 Shelby restriction d 07-28 12:30:00 [place] s 12:30: 00 Activity self-care Activity Resolve 2019-08-05 [place] deficit d 07-28 12:30:00 [place] 12:30: 00 Activity ADL Activity Active Shelby assistance 07-28 [place] required 12:30: 00 Safety fall risk Safety Active Shelby factor 1-07 [place] present 12:30: 00 Medication potential Meds Resolve 2019-07-28 Shelby clinically d 07-28 12:30:00 [place] significant 12:30: medication 00 issue Neuro depressive Neuro/Emot Active Shelby feelings ion 08-05 [place] present 12:30: 00 Medication potential Meds Resolve 2019-09-30 Shelby clinically d 08-05 12:30:00 [place] significant 12:30: medication 00 issue Endo/Jose diabetic Endo/Jose Unknown [facility] foot care 08-05 [place] 14:00: [id number] 00 Social financial BRISEYDA: Active [facility] resource Social 08-05 [facility] deficit Services 14:00: [id number] 00 Integument skin Integument Active 2019- Love integrity 08-17 [place] risk 10:30: [id number] 00 Elimination urinary Eliminatio Resolve 2019-08-19 Love incontinenc n d 08-17 12:30:00 [place] e 10:30: [id number] 00 Elimination bowel Eliminatio Resolve 2019-09-02 Love incontinenc n d 08-17 12:30:00 [place] e 10:30: [id number] 00 Elimination diarrhea Eliminatio Resolve 2019-09-02 Love n d 08-17 12:30:00 [place] 10:30: [id number] 00 Neuro confusion Neuro/Emot Active 2019-0 Love present ion 08-17 [place] 10:30: [id number] 00 Neuro anxiety Neuro/Emot Active 2019-0 Love present ion 08-17 [place] 10:30: [id number] 00 Neuro impaired Neuro/Emot Active 2019-0 Love decision-ma ion 08-17 [place] wilmer 10:30: [id number] 00 Neuro memory Neuro/Emot Active 2019-0 Love deficit ion 08-17 [place] needing 10:30: [id number] supervision 00 Activity self-care Activity Active 2019-0 Love deficit 08-17 [place] 10:30: [id number] 00 Medication oral med Meds Resolve 2019-09-30 Love assistance d 08-17 12:30:00 [place] required 10:30: [id number] 00 Musculoskel transfer Musculoske Active 2019-0 Love etal assistance letal 08-17 [place] required 10:30: [id number] 00 Musculoskel requires Musculoske Unknown Love etal human letal 08-17 [place] assist to 10:30: [id number] leave home 00 Respiratory smoker Respirator Resolve 2019-08-20 Shelby ma 08-19 16:15:00 [place] 12:30: 00 Neuro knowledge/s Neuro/Emot Active Shelby kandice ion 08-19 [place] deficit: pt 12:30: 00 Medication knowledge/s Meds Unknown Shelby kill 1-29 [place] deficit: cg 12:30: 00 Respiratory oxygen Respirator Resolve 2019-08-26 Shelby treatments y d 1-30 12:30:00 [place] in home 16:15: 00 Neuro knowledge/s Neuro/Emot Unknown Sehlbymichael woodson ion 2- [place] deficit: pt 12:30: 00 Medication knowledge/s Meds Resolve 2019-09-30 [place] kill d 2-05 12:30:00 [place] deficit: cg 12:30: 00 Musculoskel requires Musculoske Active Shelby etal human letal 2- [place] assist to 12:30: leave home 00 Balance/End endurance PT/OT: Resolve 2019-09-09 Lam guerrero deficit Balance/En d 2- 15:45:00 [place] durance 15:35: [id number] 00 Balance/End knowledge/s PT/OT: Resolve 2019-09-09 Lam guerrero kill Balance/En d 2- 15:45:00 [place] deficit: pt durance 15:35: [id number] 00 Gait/Locomo knowledge/s PT/OT: Resolve 2019-09-09 Lam tion kill Gait/Locom d 2-05 15:45:00 Briones problems deficit: pt otion 15:35: [id number] 00 Gait/Locomo knowledge/s PT/OT: Resolve 2019-09-09 Lam tion kill Gait/Locom d 2-05 15:45:00 Briones problems deficit: cg otion 15:35: [id number] 00 Gait/Locomo gait PT/OT: Resolve 2019-09-09 Lam tion deficit Gait/Locom d 2- 15:45:00 Briones problems otion 15:35: [id number] 00 Respiratory oxygen Respirator Resolve 2019-09-02 Shelby treatments y d 2-12 12:30:00 [place] in home 12:30: 00 Respiratory oxygen Respirator Resolve 2019 Shelby treatments y d 2-14 12:20:00 [place] in home 12:20: 00 Respiratory smoker Respirator Resolve 2019 Shelby y d 2-14 12:20:00 [place] 12:20: 00 Respiratory oxygen Respirator Resolve 2019-2019-09-09 Shelby treatments y d 2- 11:00:00 [place] in home 11:00: 00 Respiratory smoker Respirator Resolve 2019-2019-09-09 Shelby y d 2-19 11:00:00 [place] 11:00: 00 Respiratory oxygen Respirator Resolve 2019-09-16 Shelby treatments y d 2- 12:30:00 [place] in home 12:30: 00 Respiratory smoker Respirator Resolve 2019-09-16 Shelby y d 2- 12:30:00 [place] 12:30: 00 Respiratory oxygen Respirator Resolve 2019-09-25 Shelby treatments y d 3-03 15:00:00 [place] in home 14:00: 00 Respiratory smoker Respirator Resolve 2019-09-22 Shelby y d 3-03 14:00:00 [place] 14:00: 00 Respiratory dyspnea Respirator Resolve 2019-09-25 Shelby present y d 3-06 15:00:00 [place] 15:00: 00 Respiratory smoker Respirator Resolve 2019-09-25 Shelby y d 3-06 15:00:00 [place] 15:00: 00 Balance/End balance/environment coordinator PT/OT: Active Shelby urance rdination Balance/En 3-06 [place] deficit durance 15:00: 00 Gait/Locomo gait PT/OT: Active Shelby tion deficit Gait/Locom 306 [place] problems otion 15:00: 00 Endo/Jose knowledge/s Endo/Jose Resolve 2019-09-30 Shelby kill d 3- 12:30:00 [place] deficit: pt 12:30: 00 Endo/Jose glucose Endo/Jose Active Shelby testing 09-29 [place] dependence 12:30: 00 Allergies, Adverse Reactions, Alerts Allergy Allergy Status Severity Reaction(s) Onset Inactive Treating Comments Name Type Date Date Clinician phenergan Unknown Active Unknown Reaction Ernestine Unknown 10-11 (Rohan Kat [id number] effexor Unknown Active Unknown Reaction Ernestine Unknown 3-23 (Robert) [place] [id number] compazine Unknown Active Unknown Reaction Ernestine Unknown 3-23 ([place]) [place] [id number] adhesive Unknown Active Unknown Reaction Ernestine tape Unknown 3-23 ([place]) [place] [id number] milk Unknown Active Unknown Reaction Ernestine Unknown 3-23 (Robert) [place] [id number] prochlorper Base Active Unknown extrapyramidal 2017-07 [place] azine Ingredient symptoms - Dilip venlafaxine Base Active Severe Hives, 2017-07 [place] Ingredient difficulty 08-09 Dilip breathing, itching promethazin Base Active Unknown extrapyramidal 2017-07 [place] e Ingredient symptoms 08-09 Dilip Gadolinium- Allergen Active Severe Anaphylaxis [place] Containing Group 04-16 [place] Contrast Media Medications Ordered Filled Start Stop Current Ordering Indication Dosage Frequency Signature Comments Components Medication Medication Date Date Medication? Clinician (SIG) Name Name ALPRAZolam ALPRAZolam 2017-07- No Liz Unknown Unknown 1 mg [...] Stevanovic 2 Unknown ,Radomir liters ondansetron ondansetron 2017-07- No Liz Unknown Unknown HCl 4 mg HCl 4 mg 08-16 ,Jill tablet tablet oxyCODONE oxyCODONE No Stevanovic 10mg Unknown 10 mg 10 mg ,Radomir tablet tablet escitalopra escitalopra No Stevanovic 20mg Unknown m 20 mg m 20 mg ,Radomir tablet tablet Rexulti 2 Rexulti 2 2017-07- No Liz Unknown Unknown mg tablet [...] (1,000 unit) unit) tablet tablet Lupron Lupron 2017-07- No Liz Unknown Unknown Depot 11.25 Depot 11.25 08-16 Jill CARRENO mg (3 mg (3 month) month) intramuscul intramuscul ar syringe ar syringe kit kit mirtazapine mirtazapine 2017-07- No Liz Unknown Unknown 30 mg [...] aerosol on aerosol inhaler inhaler albuterol albuterol 2017-07- No Liz Unknown Unknown [...] tablet tablet 08-06 Jill CARRENO Nyamyc Nyamyc 2019- No Liz Unknown Unknown 100,000 100,000 08-02 Jill CARRENO unit/gram unit/gram topical topical powder powder fluconazole fluconazole 2018- No Liz Unknown Unknown 100 mg 100 mg 08-02 Jill CARRENO tablet tablet levoFLOXaci levoFLOXaci 2018- No Liz Unknown Unknown n 750 mg n 750 mg 08-05 Jill CARRENO tablet tablet Triple Triple 2019- No Schwed Unknown Unknown Antibiotic- Antibiotic- 09-16 Darren CARRENO Pain Relief Pain Relief 3.5 mg-500 3.5 mg-500 unit-10,000 unit-10,000 unit/gram unit/gram ointmnt ointmnt fentaNYL 25 fentaNYL 25 2018- No Liz Unknown Unknown mcg/hr mcg/hr 10-01 Jill CARRENO transdermal transdermal patch patch methocarbam methocarbam 2018- No Liz Unknown Unknown ol 750 mg ol 750 mg 10-23 Jill CARRENO tablet tablet pantoprazol pantoprazol 2019- No Liz Unknown Unknown e 40 mg e 40 mg 10-29 Jill CARRENO tablet,suzan tablet,suzan yed release yed release cetirizine cetirizine 2019- No Liz Unknown Unknown 10 mg 10 mg 10-29 iJll CARRENO tablet tablet ondansetron ondansetron 2019- No Liz Unknown Unknown 4 mg 4 mg 10-29 Jill CARRENO disintegrat disintegrat ing tablet ing tablet amoxicillin amoxicillin 2018- No Liz Unknown Unknown [id number] 10-31 Jill CARRENO mg-potassiu mg-potassiu m m clavulanate clavulanate 125 mg 125 mg tablet tablet oxyCODONE oxyCODONE 2018- Liz Unknown Unknown 10 mg 10 mg 11-19 ,Jill tablet tablet nyquil nyquil 2019- Liz Unknown Unknown 11-20 ,Jill vinorelbine vinorelbine 2018- Liz Unknown Unknown 11-25 ,Jill metroNIDAZO metroNIDAZO 2018- No Liz Unknown Unknown LE 500 mg LE 500 mg 02-03 ,Jill tablet tablet amoxicillin amoxicillin 2018- No Liz Unknown Unknown [id number] 12-16 ,Jill mg-potassiu mg-potassiu m m clavulanate clavulanate 125 mg 125 mg tablet tablet gabapentin gabapentin 2018- Liz Unknown Unknown 100 mg 100 mg 12-09 ,Jill capsule capsule metroNIDAZO metroNIDAZO 2018- Liz Unknown Unknown LE 500 mg LE 500 mg 12-09 ,Jill tablet tablet amoxicillin amoxicillin 2018- No Liz Unknown Unknown [id number] 12-09 Jill CARRENO mg-potassiu mg-potassiu m m clavulanate clavulanate 125 mg 125 mg tablet tablet Imodium A-D Imodium A-D 2019- No Liz Unknown Unknown 2 mg tablet 2 mg tablet 12-24 ,Jill fentaNYL fentaNYL 2019- Liz Unknown Unknown 100 mcg/hr 100 mcg/hr 12-31 Jill CARRENO transdermal transdermal patch patch Soma 250 mg Soma 250 mg 2018- No Liz Unknown Unknown tablet tablet 01-01 ,Jill Symbicort Symbicort 2019- No Liz Unknown Unknown 160 mcg-4.5 160 mcg-4.5 01-01 Jill CARRENO mcg/actuati mcg/actuati on HFA on HFA aerosol aerosol inhaler inhaler glyBURIDE glyBURIDE 2018- Liz Unknown Unknown 2.5 mg 2.5 mg 01-01 Jill CARRENO tablet tablet predniSONE predniSONE 2018- No Liz Unknown Unknown 20 mg 20 mg 01-01 ,Jill tablet tablet Zithromax Zithromax 2018- No Liz Unknown Unknown 250 mg 250 mg 01-01 ,Jill tablet tablet oxygen oxygen 2018- Liz Unknown Unknown 01-01 ,Jill flurazepam flurazepam 2018- No Liz Unknown Unknown 30 mg 30 mg 01-01 ,Jill capsule capsule oxygen oxygen 2019- No Liz Unknown Unknown 01-06 ,Jill glyBURIDE glyBURIDE 2018- No Liz Unknown Unknown 2.5 mg 2.5 mg 01-06 MD,Jill tablet tablet glyBURIDE glyBURIDE 2018- No Liz Unknown Unknown 2.5 mg 2.5 mg 01-13 MD,Jill tablet tablet oxyCODONE oxyCODONE 2019- No Liz Unknown Unknown 10 mg 10 mg 01-27 ,Jill tablet tablet Colace 100 Colace 100 2019- No Liz Unknown Unknown mg capsule mg capsule 01-21 ,Jill Soma 250 mg Soma 250 mg 2019- No Liz Unknown Unknown tablet tablet 01-21 ,Jill Miralax 17 Miralax 17 2019- No Liz Unknown Unknown gram oral gram oral 01-21 ,Jill powder powder packet packet Aloxi 0.25 Aloxi 0.25 2019- No Liz Unknown Unknown mg/5 mL mg/5 mL 02-05 ,Jill intravenous intravenous solution solution gabapentin gabapentin 2018- No Liz Unknown Unknown 300 mg 300 mg 02-24 ,Jill capsule capsule metoclopram metoclopram 2019- No Liz Unknown Unknown fahad 10 mg fahad 10 mg 02-24 ,Jill tablet tablet Xarelto 20 Xarelto 20 2017-07- No Liz Unknown Unknown mg tablet mg tablet 08-16 ,Jill traZODone traZODone 2017-07- No Liz Unknown Unknown 100 mg 100 mg 08-16 ,Jill tablet tablet gabapentin gabapentin 2019-0 2019- No Liz Unknown Unknown 300 mg 300 mg 03-31 ,Jill capsule capsule DULoxetine DULoxetine 2019- No Liz Unknown Unknown 30 mg 30 mg 04-08 MD,Jill capsule,del capsule,del ayed ayed release release flurazepam flurazepam 2019- No Liz Unknown Unknown 15 mg 15 mg 04-08 ,Jill capsule capsule gabapentin gabapentin [...] tablet mg tablet Kadcyla 100 Kadcyla 100 2018-07- No Liz Unknown Unknown mg mg 010-06 ,Jill intravenous intravenous solution solution sulfacetami sulfacetami 2018-07- No Liz Unknown Unknown de sodium de sodium 08-05 ,Jill 10 % eye 10 % eye drops drops gabapentin gabapentin 2018-07- No Liz Unknown Unknown 600 mg 600 mg 08-05 ,iJll tablet tablet dronabinol dronabinol 2018-07- No Liz Unknown Unknown 5 mg 5 mg 08-10 ,Jill capsule capsule Levaquin Levaquin 2018-07- No Liz Unknown Unknown 750 mg 750 mg 09-01 ,Jill tablet tablet dexAMETHaso dexAMETHaso 2018-07- No Liz Unknown Unknown ne 2 mg ne 2 mg 09-07 ,Jill tablet tablet Xarelto 20 Xarelto 20 2018-07- No Liz Unknown Unknown mg tablet mg tablet 09-07 ,Jill doxycycline doxycycline 2018-07- Yes Liz Unknown Unknown monohydrate monohydrate 07-27 ,Jill 100 mg 100 mg capsule capsule Tylenol 325 Tylenol 325 2018-07 2020- Yes Liz Unknown Unknown mg tablet mg tablet 10-06 Jill CARRENO celecoxib celecoxib 2020- Yes Liz Unknown Unknown 100 mg 100 mg 07-27 Jill CARRENO capsule capsule Dilaudid 4 Dilaudid 4 2020- Yes Liz Unknown Unknown mg tablet mg tablet 07-27 Jill CARRENO dexAMETHaso dexAMETHaso 2020- Yes Liz Unknown Unknown ne 2 mg ne 2 mg 07-27 Jill CARRENO tablet tablet Xarelto 20 Xarelto 20 2020- Yes Liz Unknown Unknown mg tablet mg tablet 07-27 Jill CARRENO Symbicort Symbicort Yes Liz Unknown Unknown 160 mcg-4.5 160 mcg-4.5 07-27 Jill CARRENO mcg/actuati mcg/actuati on HFA on HFA aerosol aerosol inhaler inhaler DULoxetine DULoxetine 2020- Yes Liz Unknown Unknown 60 mg 60 mg 07-27 Jill CARRENO capsule,del capsule,del ayed ayed release release Klor-Con Klor-Con 0 2020- Yes Liz Unknown Unknown M20 mEq M20 mEq 07-27 Jill CARRENO tablet,exte tablet,exte nded nded release release traZODone traZODone 2020- Yes Liz Unknown Unknown 100 mg 100 mg 07-27 ,Jill tablet tablet Klor-Con Klor-Con 2020- Yes Liz Unknown Unknown M20 mEq M20 mEq 08-05 Jill CARRENO tablet,exte tablet,exte nded nded release release Klor-Con Klor-Con 0 2020- Yes Liz Unknown Unknown M20 mEq M20 mEq 08-17 Jill CARRENO tablet,exte tablet,exte nded nded release release traZODone traZODone Yes Liz Unknown Unknown 100 mg 100 mg 08-17 ,Jill tablet tablet fentanyl fentanyl Yes Liz Unknown Unknown 150 mcg/hr 150 mcg/hr 08-17 Jill CARRENO transdermal transdermal patch patch acetaZOLAMI acetaZOLAMI 2020-0 2020- Yes Liz Unknown Unknown DE 250 mg DE 250 mg 08-17 MD,Jill tablet tablet levETIRAcet levETIRAcet 2020- Yes Liz Unknown Unknown am 1,000 mg am 1,000 mg 08-17 MD,Jill tablet tablet levETIRAcet levETIRAcet 2020- Yes Liz Unknown Unknown am 250 mg am 250 mg 08-17 MD,Jill tablet tablet oxyCODONE 5 oxyCODONE 5 2020- Yes Liz Unknown Unknown mg tablet mg tablet 08-17 MD,Jill levETIRAcet levETIRAcet 2020- Yes Liz Unknown Unknown am 500 mg am 500 mg 08-19 MD,Jill tablet tablet oxyCODONE oxyCODONE 2020- Yes Liz Unknown Unknown 10 mg 10 mg 08-19 MD,Jill tablet tablet anastrozole anastrozole 2020- Yes Liz Unknown Unknown 1 mg tablet 1 mg tablet 08-19 MD,Jill Rexulti 2 Rexulti 2 Yes Liz Unknown Unknown mg tablet mg tablet 08-19 MD,Jill cetirizine cetirizine Yes Liz Unknown Unknown 10 mg 10 mg 08-19 ,Jill tablet tablet Soma 250 mg Soma 250 mg 2020- Yes Liz Unknown Unknown tablet tablet 08-19 ,Jill gabapentin gabapentin 0 2020- Yes Liz Unknown Unknown 600 mg 600 mg 08-19 ,Jill tablet tablet dexAMETHaso dexAMETHaso Yes Liz Unknown Unknown ne 2 mg ne 2 mg 08-19 MD,Jill tablet tablet Xarelto 20 Xarelto 20 0 Yes Liz Unknown Unknown mg tablet mg tablet 08-19 ,Jill DULoxetine DULoxetine Yes Liz Unknown Unknown 60 mg 60 mg 08-19 ,Jill capsule,del capsule,del ayed ayed release release acetaZOLAMI acetaZOLAMI Yes Liz Unknown Unknown DE 250 mg DE 250 mg 08-19 ,Jill tablet tablet Klor-Con Klor-Con 2020- Yes Liz Unknown Unknown M20 mEq M20 mEq 08-19 ,Jill tablet,exte tablet,exte nded nded release release levETIRAcet levETIRAcet 2020- Yes Liz Unknown Unknown am 500 mg am 500 mg 08-19 MD,Jill tablet tablet anastrozole anastrozole Yes Liz Unknown Unknown 1 mg tablet 1 mg tablet 08-19 MD,Jill oxyCODONE oxyCODONE 2020- Yes Liz Unknown Unknown 10 mg 10 mg 08-19 MD,Jill tablet tablet oxyCODONE 5 oxyCODONE 5 2020- Yes Liz Unknown Unknown mg tablet mg tablet 09-02 ,Jill levETIRAcet levETIRAcet Yes Liz Unknown Unknown am 500 mg am 500 mg 08-26 MD,Jill tablet tablet levETIRAcet levETIRAcet Yes Liz Unknown Unknown am 250 mg am 250 mg 08-26 MD,Jill tablet tablet ALPRAZolam ALPRAZolam 2020- Yes Liz Unknown Unknown 1 mg tablet 1 mg tablet 08-25 ,Jill oxyCODONE 5 oxyCODONE 5 2020- Yes Liz Unknown Unknown mg tablet mg tablet 09-02 ,Jill oxyCODONE oxyCODONE 2020- Yes Liz Unknown Unknown 10 mg 10 mg 09-02 ,Jill tablet tablet Soma 250 mg Soma 250 mg 2020- Yes Liz Unknown Unknown tablet tablet 09-02 ,Jill gabapentin gabapentin 2020- Yes Liz Unknown Unknown 600 mg 600 mg 09-04 ,Jill tablet tablet Klor-Con 10 Klor-Con 10 2019-0 2020- Yes Liz Unknown Unknown mEq mEq 09-04 ,Jill tablet,exte tablet,exte nded nded release release mirtazapine mirtazapine 2019- Yes Liz Unknown Unknown 30 mg 30 mg 09-02 MD,Jill tablet tablet Soma 250 mg Soma 250 mg 2019-0 Yes Liz Unknown Unknown tablet tablet 09-09 MD,Jill omeprazole omeprazole 2019- Yes Liz Unknown Unknown 40 40 3-06 ,Jill mg-sodium mg-sodium bicarbonate bicarbonate 1.1 gram 1.1 gram capsule capsule glyBURIDE glyBURIDE 2019-0 Yes Liz Unknown Unknown 2.5 mg 2.5 mg 3- ,Jill tablet tablet gabapentin gabapentin 2019-0 Yes Liz Unknown Unknown 300 mg 300 mg 09-29 ,Jill capsule capsule gabapentin gabapentin 2019-0 Yes Liz Unknown Unknown 600 mg 600 mg 09-29 Jill CARRENO tablet tablet ALPRAZolam ALPRAZolam 2019-0 Yes Liz Unknown Unknown 1 mg tablet 1 mg tablet 10-06 ,Jill oxyCODONE 5 oxyCODONE 5 2019-0 Yes Liz Unknown Unknown mg tablet mg tablet 10-06 ,Jill ondansetron ondansetron 2019-0 Yes Liz Unknown Unknown HCl 4 mg HCl 4 mg 10-06 ,Jill tablet tablet Lupron Lupron 2019-0 Yes Liz Unknown Unknown Depot 11.25 Depot 11.25 10-06 Jill CARRENO mg (3 mg (3 month) month) intramuscul intramuscul ar syringe ar syringe kit kit ondansetron ondansetron 2019-0 Yes Lzi Unknown Unknown 4 mg 4 mg 10-06 Jill CARRENO disintegrat disintegrat ing tablet ing tablet albuterol albuterol 2019-0 Yes Liz Unknown Unknown sulfate HFA sulfate HFA 10-06 Jill CARRENO 90 90 mcg/actuati mcg/actuati on aerosol on aerosol inhaler inhaler Imodium A-D Imodium A-D 2019-0 Yes Liz Unknown Unknown 2 mg tablet 2 mg tablet 10-06 Jill CARRENO oxygen oxygen 2019-0 Yes Liz Unknown Unknown - Jill CARRENO Colace 100 Colace 100 2020-0 Yes Liz Unknown Unknown mg capsule mg capsule - Jill CARRENO Miralax 17 Miralax 17 2020-0 Yes Liz Unknown Unknown gram oral gram oral 10-06 Jill CARRENO powder powder packet packet Aloxi 0.25 Aloxi 0.25 2020-0 Yes Liz Unknown Unknown mg/5 mL mg/5 mL 10-06 Jill CARRENO intravenous intravenous solution solution Kadcyla 100 Kadcyla 100 2020-0 Yes Liz Unknown Unknown mg mg 3- Jill CARRENO intravenous intravenous solution solution Tylenol 325 Tylenol 325 2019-0 Yes Liz Unknown Unknown mg tablet mg tablet 10-06 Jill CARRENO oxyCODONE oxyCODONE 2019-0 Yes Liz Unknown Unknown 10 mg 10 mg -18 ,Jill tablet tablet Klor-Con Klor-Con 2019-0 Yes Liz Unknown Unknown M20 mEq M20 mEq 3- Jill CARRENO tablet,exte tablet,exte nded nded release release Vital Signs Vital Name Observation Time Observation Value Comments SYSTOLIC mm[Hg] 2019-10-08 18:10:57 152 mm[Hg] mm[Hg] Method: Sit SYSTOLIC mm[Hg] 2019-08-17 18:10:05 120 mm[Hg] mm[Hg] Method: Stand SYSTOLIC mm[Hg] 2019-09-30 18:10:49 130 mm[Hg] mm[Hg] Method: Lie DIASTOLIC mm[Hg] 2019-10-08 18:10:57 76 mm[Hg] mm[Hg] Method: Sit DIASTOLIC mm[Hg] 2019-08-17 18:10:05 80 mm[Hg] mm[Hg] Method: Stand DIASTOLIC mm[Hg] 2019-09-30 18:10:49 72 mm[Hg] mm[Hg] Method: Lie PULSE 2019-10-08 18:10:57 101 /min /min RESP RATE 2019-10-08 18:10:57 18 /min /min TEMP 2019-10-08 18:10:57 97.6 [degF] Procedures This patient has no known procedures. Results This patient has no known results.
--- OUTSIDE RECORDS SUMMARY | 2019-10-14 15:30 | XMS REPORT ---
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, disorder, RN recurrent, recurrent, unspecified unspecified Anxiety Anxiety Diagnosis Active Kaylynn disorder, disorder, [place] unspecified unspecified RN Pain frequent Pain Mgmt Resolve 2017-072018-08-27 Love pain d 08-16 15:00:00 [place] 10:20: [id number] 00 Respiratory smoker Respirator Resolve 2017-072018-07-23 Love y d 08-16 15:00:00 [place] 10:20: [id number] 00 Endo/Jose anti-coagul Endo/Jose Resolve 2017-072018-06-25 Love ation d 08-16 15:00:00 [place] therapy 10:20: [id number] 00 Nutrition nutritional Nutrition Resolve 2017-072018-07-04 Love restriction d 08-16 15:00:00 [place] s 10:20: [id number] 00 Neuro confusion Neuro/Emot Resolve 2017-072018-08-06 Love present ion d 08-16 15:00:00 [place] 10:20: [id number] 00 Neuro anxiety Neuro/Emot Resolve 2017-072018-08-06 Love present ion d 08-16 15:00:00 [place] 10:20: [id number] 00 Neuro depressive Neuro/Emot Resolve 2017-072018-08-06 Love feelings ion d 08-16 15:00:00 [place] present 10:20: [id number] Safety risk for Safety Resolve 2017-072018-07-04 Love hospitaliza d 08-16 15:00:00 [place] tion 10:20: [id number] 00 Safety fall risk Safety Resolve 2017-072018-07-04 Ericka factor d 08-16 15:00:00 Vivian present 10:20: 00 Musculoskel requires Musculoske Unknown 2017-07 Love etal human letal 08-16 [place] assist to 10:20: [id number] leave home 00 Cardio hypertensio Cardiovasc Resolve [...] d 2-10 15:00:00 [place] deficit Services 14:00: [id number] 00 Social knowledge/s BRISEYDA: Resolve 2017-072018-09-22 [place] Services kill Social d 2-10 13:00:00 [place] deficit - Services 14:00: [id number] pt 00 Social knowledge/s BRISEYDA: Resolve 2017-072018-09-22 [facility] Services kill Social d 2-10 13:00:00 [place] deficit - Services 14:00: [id number] cg 00 Musculoskel requires Musculoske Unknown 2017-07 [place] etal human letal 2- [place] assist to 15:30: leave home 00 Diagnoses knowledge/s Diagnoses Active 2017-07 [place]zia kill 224 [place] deficit: cg 13:00: [id number] 00 Integument skin Integument Resolve 2017-072018-08-06 Shelby [...] Active Kezia hospitaliza 2-18 [place] tion 14:00: [id number] 00 Safety can be left Safety Unknown Kezia alone for 2-18 [place] only short 14:00: [id number] periods 00 Pain frequent Pain Mgmt Resolve 2018-09-24 Lam pain d 2-27 15:00:00 [place] 15:50: [id number] 00 Safety can be left Safety Resolve 2018-10-08 [place] alone for d 3-04 15:00:00 [place] only short 13:00: [id number] periods 00 Cardio edema Cardiovasc Resolve 2018-2018-10-08 [...] ion d 4-08 13:00:00 [place] present 15:45: [id number] 00 Respiratory lung sounds Respirator Resolve 2018-10-29 Shelby deficit y d 4-10 13:00:00 [place] 13:00: 00 Infection s/s of Infection Resolve 2019-02-04 Shelby infection d 4-17 12:30:00 [place] 13:00: 00 Respiratory smoker Respirator Resolve 2018-11-05 Shelby y d 4-17 13:00:00 [place] 13:00: 00 Neuro depressive Neuro/Emot Resolve 2018-12-10 Lam feelings ion d 4 12:30:00 [place] present 12:20: [id number] 00 Respiratory smoker Respirator Resolve 2018-11-20 Shelby [...] 11-26 13:30:00 [place] deficit - Services 13:30: [id number] pt 00 Respiratory lung sounds Respirator Resolve [...] soni n d 12-18 12:30:00 Narendra 12:30: [id number] 00 Respiratory lung sounds Respirator Resolve 2018-12-24 Shelyb deficit y d 605 12:30:00 [place] 12:30: [...] 12:30: 00 Elimination nausea/vomi Eliminatio Resolve 2019-01-21 Shebly ting n d 01-14 12:30:00 [place] 12:30: 00 Musculoskel requires Musculoske Resolve 2019-01-14 Shelby etal human letal d 01-14 12:30:00 [place] assist to 12:30: leave home 00 Social support BRISEYDA: Active [place] Services deficit Social 01-14 [place] Services 12:30: 00 Nutrition nutritional Nutrition Resolve 2019-01-21 Kezia restriction d 01-16 12:30:00 [place] s 15:00: [id number] 00 Safety can be left Safety Resolve 2019-02-18 Kezia alone for d 01-16 12:10:00 [place] only short 15:00: [id number] periods 00 Respiratory smoker Respirator Resolve 2019-01-21 Shelby y anil 7 12:30:00 [place] 12:30: 00 Nutrition nutritional Nutrition Resolve 2019-01-21 Shelby risk d 01-21 12:30:00 [place] 12:30: 00 Musculoskel requires Musculoske Unknown Shelby etal human letal 01-21 [place] assist to 12:30: leave home 00 Respiratory smoker Respirator Resolve 2019-01-28 Shelby y d 7 13:00:00 [place] 13:00: 00 Respiratory dyspnea Respirator Unknown Shelby present y 01-28 [place] 13:00: 00 Respiratory [...] Social 7-12 [place] deficit - Services 14:00: [id number] cg 00 Respiratory lung sounds Respirator Resolve [...] Kezia feelings ion 02-18 [place] present 14:30: [id number] 00 Respiratory lung sounds Respirator Resolve 2019-03-04 [...] d 03-12 12:30:00 [place] only short 15:30: [id number] periods 00 Respiratory smoker Respirator Resolve 2019-03-12 [...] d 0-14 12:45:00 [place] only short 15:00: [id number] periods 00 Musculoskel requires Musculoske Unknown 2018-07 [...] alone for 12 [place] only short 15:30: [id number] periods 00 Respiratory smoker Respirator Resolve 2018-072019-07-09 [...] Unknown Kezia foot care 08-05 [place] 14:00: [id number] 00 Social financial BRISEYDA: Active Ke[facility] Services resource Social 08-05 [facility] deficit Services 14:00: [id number] 00 Integument skin Integument Active 2019- Love integrity 08-17 [place] risk 10:30: [id number] 00 Elimination urinary Eliminatio Resolve 2019-08-19 Love incontinenc n d 08-17 12:30:00 [place] e 10:30: [id number] 00 Elimination bowel Eliminatio Resolve 2019-09-02 Love incontinenc n d 08-17 12:30:00 [place] e 10:30: [id number] 00 Elimination diarrhea Eliminatio Resolve 2019-09-02 Love n d 08-17 12:30:00 [place] 10:30: [id number] 00 Neuro confusion Neuro/Emot Active 2019-0 Love present ion 08-17 [place] 10:30: [id number] 00 Neuro anxiety Neuro/Emot Active 2019-0 Love present ion 08-17 [place] 10:30: [id number] 00 Neuro impaired Neuro/Emot Active 2019-0 Olve decision-ma ion 08-17 [place] wilmer 10:30: [id number] 00 Neuro memory Neuro/Emot Active 2019-0 Love deficit ion 08-17 [place] needing 10:30: [id number] supervision 00 Activity self-care Activity Active 2019-0 Love deficit 08-17 [place] 10:30: [id number] 00 Medication oral med Meds Resolve 2019-09-30 Love assistance d 08-17 12:30:00 [place] required 10:30: [id number] 00 Musculoskel transfer Musculoske Active 2019-0 Love etal assistance letal 08-17 [place] required 10:30: [id number] 00 Musculoskel requires Musculoske Unknown Love etal human letal 08-17 [place] assist to 10:30: [id number] leave home 00 Respiratory smoker Respirator Resolve 2019-08-20 [place] ma 08-19 16:15:00 [place] 12:30: 00 Neuro knowledge/s Neuro/Emot Active Shelby kandice ion 08-19 [place] deficit: pt 12:30: 00 Medication knowledge/s Meds Unknown Shelby kill 1-29 [place] deficit: cg 12:30: 00 Respiratory oxygen Respirator Resolve 2019-08-26 Shelby treatments y d 1-30 12:30:00 [place] in home 16:15: 00 Neuro knowledge/s Neuro/Emot Unknown Shelbymichael woodson ion 2- [place] deficit: pt 12:30: 00 Medication knowledge/s Meds Resolve 2019-09-30 Shelby kill d 2-05 12:30:00 [place] deficit: cg 12:30: 00 Musculoskel requires Musculoske Active Shelby etal human letal 2- [place] assist to 12:30: leave home 00 Balance/End endurance PT/OT: Resolve 2019-09-09 Lam guerrero deficit Balance/En d 2- 15:45:00 Br[place] durance 15:35: [id number] 00 Balance/End knowledge/s PT/OT: Resolve 2019-09-09 Lam guerrero kill Balance/En d 2- 15:45:00 [place] deficit: pt durance 15:35: [id number] 00 Gait/Locomo knowledge/s PT/OT: Resolve 2019-09-09 Lam tion kill Gait/Locom d 2-05 15:45:00 Briones problems deficit: pt otion 15:35: [id number] 00 Gait/Locomo knowledge/s PT/OT: Resolve 2019-09-09 Lam tion kill Gait/Locom d 2-05 15:45:00 Br[place] problems deficit: cg otion 15:35: [id number] 00 Gait/Locomo gait PT/OT: Resolve 2019-09-09 Lam tion deficit Gait/Locom d 2- 15:45:00 Briones problems otion 15:35: [id number] 00 Respiratory oxygen Respirator Resolve 2019-09-02 Shelby [...] d 3-06 15:00:00 [place] 15:00: 00 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 PT/OT: Active Shelby urance rdination Balance/En [...] Unknown Reaction Ernestine Unknown 10-11 (Rohan Kat [id number] effexor Unknown Active Unknown Reaction Ernestine Unknown 3-23 (Robert) [place] [id number] compazine Unknown Active Unknown Reaction Ernestine Unknown 3-23 ([place]) [place] [id number] adhesive Unknown Active Unknown Reaction Ernestine tape Unknown 3-23 (Robert) [place] [id number] milk Unknown Active Unknown Reaction Ernestine Unknown 3-23 ([place]) [place] [id number] prochlorper Base Active Unknown extrapyramidal 2017-07 [place] azine Ingredient symptoms - Dilip venlafaxine Base Active Severe Hives, 2017-07 [place] Ingredient difficulty 08-09 Dilip breathing, itching promethazin Base Active Unknown extrapyramidal 2017-07 [place] e Ingredient symptoms 08-09 Dilip Gadolinium- Allergen [...] Unknown Unknown 10 mg 10 mg 10-29 Jill CARRENO tablet tablet ondansetron ondansetron 2019- No [...] mg 08-05 ,Jill tablet tablet dronabinol dronabinol 2018-07- No Liz [...] Yes Liz Unknown Unknown 40 40 3-06 ,iJll mg-sodium mg-sodium bicarbonate bicarbonate 1.1 gram 1.1 [...] syringe kit kit ondansetron ondansetron 2019-0 Yes Liz Unknown Unknown 4 mg 4 mg 10-06 [...]
--- OUTSIDE RECORDS SUMMARY | 2019-10-14 15:30 | XMS REPORT ---
:1975 Author Organization [facility] Care Team Providers Name Role [...] Resolve 2017-072018-08-27 Love pain d 08-16 15:00:00 Oliver 10:20: [id number] 00 Respiratory smoker Respirator Resolve 2017-072018-07-23 Love y d 08-16 15:00:00 Oliver 10:20: [id number] 00 Endo/Jose anti-coagul Endo/Jose Resolve 2017-072018-06-25 Love ation d 08-16 15:00:00 Carly therapy 10:20: [id number] 00 Nutrition nutritional Nutrition Resolve 2017-072018-07-04 Love restriction d 08-16 15:00:00 Oliver s 10:20: [id number] 00 Neuro confusion Neuro/Emot Resolve 2017-072018-08-06 Love present ion d 08-16 15:00:00 Oliver 10:20: [id number] 00 Neuro anxiety Neuro/Emot Resolve 2017-072018-08-06 Love present ion d 08-16 15:00:00 Oliver 10:20: [id number] 00 Neuro depressive Neuro/Emot Resolve 2017-072018-08-06 Love feelings ion d 08-16 15:00:00 Oliver present 10:20: [id number] 00 Safety risk for Safety Resolve 2017-072018-07-04 Love hospitaliza d 08-16 15:00:00 Oliver tion 10:20: [id number] 00 Safety fall risk Safety Resolve 2017-072018-07-04 Ericka factor d 08-16 15:00:00 Vivian present 10:20: 00 Musculoskel requires Musculoske Unknown 2017-07 Love etal human letal 08-16 Oliver assist to 10:20: [id number] leave home 00 Cardio hypertensio Cardiovasc Resolve [...] d 2-10 15:00:00 [place] deficit Services 14:00: [id number] 00 Social knowledge/s BRISEYDA: Resolve 2017-072018-09-22 [facility] kill Social d 2-10 13:00:00 [place] deficit - Services 14:00: [id number] pt 00 Social knowledge/s BRISEYDA: Resolve 2017-072018-09-22 [facility] kill Social d 2-10 13:00:00 [place] deficit - Services 14:00: [id number] cg 00 Musculoskel requires Musculoske Unknown 2017-07 Shelby etal human letal 2- [place] assist to 15:30: leave home 00 Diagnoses knowledge/s Diagnoses Active 2017-07 Kezia kill 2 [place] deficit: cg 13:00: [id number] 00 Integument skin Integument Resolve 2017-072018-08-06 Shelby integrity d 2-26 15:00:00 [place] risk 15:00: 00 Respiratory oxygen Respirator Unknown 2018- Shelby treatments y 109 [place] in home 15:00: 00 Respiratory smoker [...] Neuro/Emot Resolve 2018-08-27 Shelby feelings ion d -23 15:00:00 [place] present 15:00: 00 Musculoskel requires Musculoske Unknown 2018- Shelby etal human letal 1- [place] assist to 15:00: leave home 00 [...] Active Kezia hospitaliza 2-18 [place] tion 14:00: [id number] 00 Safety can be left Safety Unknown Kezia alone for 2-18 [place] only short 14:00: [id number] periods 00 Pain frequent Pain Mgmt Resolve 2018-09-24 Lam pain d 2-27 15:00:00 Briones 15:50: [id number] 00 Safety can be left Safety Resolve 2018-10-08 Kezia alone for d 3-04 15:00:00 [place] only short 13:00: [id number] periods 00 Cardio edema Cardiovasc Resolve 2018-10-08 [...] ion d 4-08 13:00:00 Briones present 15:45: [id number] 00 Respiratory lung sounds Respirator Resolve 2018-10-29 Shelby deficit y d 4-10 13:00:00 [place] 13:00: 00 Infection s/s of Infection Resolve 2019-02-04 Shelby infection d 4-17 12:30:00 [place] 13:00: 00 Respiratory smoker Respirator Resolve 2018-11-05 Shelby y d 4-17 13:00:00 [place] 13:00: 00 Neuro depressive Neuro/Emot Resolve 2018-12-10 Lam feelings ion d 420 12:30:00 Briones present 12:20: [id number] 00 Respiratory smoker Respirator Resolve 2018-11-20 Shelby y d 4-24 12:30:00 [place] 12:30: 00 Respiratory oxygen Respirator Resolve 2018-12-04 Shelby treatments y d 5-08 12:30:00 [place] in home 12:30: 00 Respiratory smoker Respirator Resolve 2019-01-07 Shelby y d 5-08 12:30:00 [place] 12:30: 00 Safety can be left Safety Resolve 2018-12-10 Shelby fraire for d 5- 12:30:00 [place] only short 12:30: periods 00 Social knowledge/s BRISEYDA: Resolve 2018-11-26 [facility] kill Social d 08 13:30:00 [place] deficit - Services 13:30: [id number] pt 00 Respiratory lung sounds Respirator Resolve 2018-12-04 Shelby deficit y d 5-16 12:30:00 [place] 12:30: 00 Elimination diarrhea Eliminatio Resolve 2018-12-10 Shelby n d 516 12:30:00 [place] 12:30: 00 Social knowledge/s BRISEYDA: Resolve 2019-01-16 Shelby Services kill Social d 16 15:00:00 [place] deficit - Services 12:30: pt 00 Pain frequent Pain Mgmt Resolve 2018-12-10 Shelby pain d 12-10 12:30:00 [place] 12:30: 00 Elimination nausea/vomi Eliminatio Resolve 2018-12-31 Lavinia soni n d 12-18 12:30:00 Narendra 12:30: [id number] 00 Respiratory lung sounds Respirator Resolve 2018-12-24 Shelby deficit y d 605 12:30:00 [place] 12:30: 00 Elimination diarrhea Eliminatio Resolve 2018-12-31 Shelby n d 605 12:30:00 [place] 12:30: 00 Cardio hypertensio Cardiovasc Resolve 2019-01-07 Shelby bravo d 6-12 12:30:00 [place] 12:30: 00 Respiratory lung sounds Respirator Resolve 2018-12-31 Shelby deficit y d 6-12 12:30:00 [place] 12:30: 00 Respiratory asthma Respirator Resolve 2018-12-31 Shelby y d 6-12 12:30:00 [place] 12:30: 00 Neuro anxiety Neuro/Emot [...] 12:30: 00 Nutrition nutritional Nutrition Resolve 2019-01-14 Hselby restriction d 01-14 12:30:00 Vallely s 12:30: [...] restriction d 01-16 12:30:00 [place] s 15:00: [id number] 00 Safety can be left Safety Resolve 2019-02-18 Kezia alone for d 01-16 12:10:00 [place] only short 15:00: [id number] periods 00 Respiratory smoker Respirator Resolve 2019-01-21 Shelby y d 7 12:30:00 [place] 12:30: 00 Nutrition nutritional Nutrition Resolve 2019-01-21 Shelby risk d 01-21 12:30:00 [place] 12:30: 00 Musculoskel requires Musculoske Unknown Shelby etal human letal 01-21 Valle[place] assist to 12:30: leave home 00 Respiratory smoker Respirator Resolve 2019-01-28 Shelby y d 7- 13:00:00 [place] 13:00: 00 Respiratory dyspnea Respirator Unknown Shelby present y 7-10 [place] 13:00: 00 Respiratory oxygen Respirator Unknown Shelby treatments y 7-10 [place] in home 13:00: 00 Elimination diarrhea Eliminatio Resolve 2019-02-04 Shelby n d 7-10 12:30:00 Valle[place] 13:00: 00 Elimination nausea/vomi Eliminatio Active Shelby narcisoadam n 7-10 [place] 13:00: 00 Neuro anxiety Neuro/Emot Resolve 2019-02-18 Shelby gilmore ion d 7-10 12:10:00 [place] 13:00: 00 Social knowledge/s BRISEYDA: Active Shelby Services kill Social 7-10 [place] deficit - Services 13:00: pt 00 Social knowledge/s BRISEYDA: Active [facility] kill Social 7-12 [place] deficit - Services 14:00: [id number] cg 00 Respiratory lung sounds Respirator Resolve 2019-02-04 Shelby deficit y d 7- 12:30:00 [place] 12:30: 00 Respiratory oxygen Respirator Resolve 2019-02-04 Shelby treatments y d 7 12:30:00 Vallely [...] Respirator Resolve 2019-07-16 Shelby present y d 02-18 12:30:00 [place] 12:10: 00 Respiratory oxygen Respirator Resolve 2019-02-18 Shelby treatments y d 7 12:10:00 [place]le[place] in home 12:10: 00 Neuro depressive Neuro/Emot Unknown Kezia feelings ion 02-18 [place] present 14:30: [id number] 00 Respiratory lung sounds Respirator Resolve 2019-03-04 Shelby deficit y d 8-14 12:20:00 [place]le[place] 12:20: 00 Respiratory smoker Respirator Resolve 2019-03-04 Shelby y d 814 12:20:00 [place] 12:20: 00 Respiratory dyspnea Respirator Unknown Shelby present y 8- Valle[place] 12:20: 00 Respiratory oxygen Respirator Resolve 2019-03-04 Shelby treatments y d 8 12:20:00 [place] in home 12:20: 00 Respiratory smoker Respirator Resolve 2019-03-11 Shelby y d 8 12:30:00 [place] 12:30: 00 Respiratory dyspnea Respirator Unknown Shelby present y 03-11 [place] 12:30: 00 Respiratory oxygen Respirator Resolve 2019-03-11 Shelby treatments y d 821 12:30:00 Valle[place] in home 12:30: 00 Endo/Jose knowledge/s Endo/Jose Resolve 2019-03-25 Shelby kill d 8 12:30:00 [place] deficit: pt 12:30: 00 Elimination constipatio Eliminatio Resolve 2019-09-02 Shelby n n d 03-11 12:30:00 [place] 12:30: 00 Safety can be left Safety Resolve 2019-04-29 Kezia alone for d 03-12 12:30:00 [place] only short 15:30: [id number] periods 00 Respiratory smoker Respirator Resolve 2019-03-12 [...] Respirator Resolve 2019-04-01 Shelby treatments y d 9 12:30:00 [place] in home 12:30: 00 Respiratory [...] d 0-14 12:45:00 [place] only short 15:00: [id number] periods 00 Musculoskel requires Musculoske Unknown 2018-07 [...] Respirator Resolve 2018-072019-06-17 Shelby treatments y d 1- 12:00:00 Valle[place] in home 12:00: 00 Respiratory [...] left Safety Active 2018-07 Kezia alone for -12 [place] only short 15:30: [id number] periods 00 Respiratory smoker Respirator Resolve 2018-072019-07-09 Shelby y d 2-19 12:15:00 [place] 12:15: 00 Musculoskel requires Musculoske Resolve 2018-072019-07-16 Shelby etal human letal d 2-19 12:30:00 Valle[place] assist to 12:15: leave home 00 Respiratory oxygen Respirator Resolve 2018-072019-07-16 Shelby treatments y d 2- 12:30:00 Valle[place] in home 12:30: 00 Respiratory smoker Respirator Resolve 2018-072019-07-16 Shelby y d 09-16 12:30:00 Valle[place] 12:30: 00 Respiratory oxygen Respirator Resolve 2019-2019-08-19 Shelby treatments y d 07-23 12:30:00 Valle[place] in home 12:30: 00 Respiratory [...] 12:30: 00 Medication potential Meds Resolve 2019-09-30 Shelyb clinically d 08-05 12:30:00 Valle[place] significant 12:30: medication 00 issue Endo/Jose diabetic Endo/Jose Unknown Kezia foot care 08-05 [place] 14:00: [id number] 00 Social financial BRISEYDA: Active [facility] Services resource Social 08-05 [facility] deficit Services 14:00: [id number] 00 Integument skin Integument Active 2019- Love integrity 08-17 Oliver risk 10:30: [id number] 00 Elimination urinary Eliminatio Resolve 2019-08-19 Love incontinenc n d 08-17 12:30:00 Oliver e 10:30: [id number] 00 Elimination bowel Eliminatio Resolve 2019-09-02 Love incontinenc n d 08-17 12:30:00 Oliver e 10:30: [id number] 00 Elimination diarrhea Eliminatio Resolve 2019-09-02 Love n d 08-17 12:30:00 Oliver 10:30: [id number] 00 Neuro confusion Neuro/Emot Active 2019-0 Love present ion 08-17 Oliver 10:30: [id number] 00 Neuro anxiety Neuro/Emot Active 2019-0 Love present ion 08-17 Oliver 10:30: [id number] 00 Neuro impaired Neuro/Emot Active 2019-0 Love decision-ma ion 08-17 Oliver wilmer 10:30: [id number] 00 Neuro memory Neuro/Emot Active 2019- Love deficit ion 08-17 Oliver needing 10:30: [id number] supervision 00 Activity self-care Activity Active 2019- Love deficit 08-17 Oliver 10:30: [id number] 00 Medication oral med Meds Resolve 2019-09-30 Love assistance d 08-17 12:30:00 Oliver required 10:30: [id number] 00 Musculoskel transfer Musculoske Active 2019-0 Love etal assistance letal 08-17 Oliver required 10:30: [id number] 00 Musculoskel requires Musculoske Unknown Love etal human letal 08-17 Oliver assist to 10:30: [id number] leave home 00 Respiratory smoker Respirator Resolve 2019-08-20 Shelby ma 08-19 16:15:00 [place] 12:30: 00 Neuro knowledge/s Neuro/Emot Active Shelby kill ion 08-19 [place] deficit: pt 12:30: 00 Medication knowledge/s Meds Unknown Shelby kill 1- [place] deficit: cg 12:30: 00 Respiratory oxygen Respirator Resolve 2019-08-26 Shelby treatments y d 1-30 12:30:00 [place] in home 16:15: 00 Neuro knowledge/s Neuro/Emot Unknown Shelby woodson ion 2- [place] deficit: pt 12:30: 00 Medication knowledge/s Meds Resolve 2019-09-30 Shelby kill d 2- 12:30:00 [place] deficit: cg 12:30: 00 Musculoskel requires Musculoske Active Shelby etal human letal 2- [place] assist to 12:30: leave home 00 Balance/End endurance PT/OT: Resolve 2019-09-09 Lam urkaren deficit Balance/En d 2- 15:45:00 Briones durance 15:35: [id number] 00 Balance/End knowledge/s PT/OT: Resolve 2019-09-09 Lam guerrero kill Balance/En d 2- 15:45:00 Briones deficit: pt durance 15:35: [id number] 00 Gait/Locomo knowledge/s PT/OT: Resolve 2019-09-09 Lam tion kill Gait/Locom d 2-05 15:45:00 Briones problems deficit: pt otion 15:35: [id number] 00 Gait/Locomo knowledge/s PT/OT: Resolve 2019-09-09 Lam tion kill Gait/Locom d 2-05 15:45:00 Briones problems deficit: cg otion 15:35: [id number] 00 Gait/Locomo gait PT/OT: Resolve 2019-09-09 Lam tion deficit Gait/Locom d 2- 15:45:00 Briones problems otion 15:35: [id number] 00 Respiratory oxygen Respirator Resolve 2019-09-02 Shelby treatments y d 2-12 12:30:00 [place]le[place] in home 12:30: 00 Respiratory oxygen Respirator Resolve 2019 Shelby treatments y d 2-14 12:20:00 Valle[place] in home 12:20: 00 Respiratory smoker Respirator Resolve 2019 Shelby y d 2-14 12:20:00 Valle[place] 12:20: 00 Respiratory oxygen Respirator Resolve 2019-09-09 Shelby treatments y d 2- 11:00:00 Vallely in home 11:00: 00 Respiratory smoker Respirator Resolve 2019-09-09 Shelby y d 2- 11:00:00 [place] 11:00: 00 Respiratory oxygen Respirator Resolve 2019-09-16 Shelby treatments y d 2- 12:30:00 [place]le[place] in home 12:30: 00 Respiratory smoker Respirator Resolve 2019-09-16 Shelby y d 2- 12:30:00 [place] 12:30: 00 Respiratory oxygen Respirator Resolve 2019-09-25 Shelby treatments y d 3- 15:00:00 [place]le[place] in home 14:00: 00 Respiratory smoker Respirator Resolve 2019-09-22 Shelby y d 3-03 14:00:00 [place] 14:00: 00 Respiratory dyspnea Respirator Resolve 2019-09-25 Shelby present y d 3-06 15:00:00 [place] 15:00: 00 Respiratory smoker Respirator Resolve 2019-2019-09-25 Shelby y d 3-06 15:00:00 [place] 15:00: 00 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 PT/OT: Active Shelby urance rdination Balance/En 3- [place] deficit durance 15:00: 00 Gait/Locomo gait PT/OT: Active Shelby tion deficit Gait/Locom 06 [place] problems otion 15:00: 00 Endo/Jose knowledge/s Endo/Jose Resolve 2019-09-30 Shelby kill d 3- 12:30:00 [place] deficit: pt 12:30: 00 Endo/Jose glucose Endo/Jose Active Shelby testing 09-29 [place] dependence 12:30: 00 Allergies, Adverse Reactions, Alerts Allergy Allergy Status Severity Reaction(s) Onset Inactive Treating Comments Name Type Date Date Clinician phenergan Unknown Active Unknown Reaction Ernestine Unknown 10-11 (Rohan Kat [id number] effexor Unknown Active Unknown Reaction Ernestine Unknown 3-23 (Robert) Kat [id number] compazine Unknown Active Unknown Reaction Ernestine Unknown 3-23 (Robert) [place] [id number] adhesive Unknown Active Unknown Reaction Ernestine tape Unknown 3-23 (Robert) Kat [id number] milk Unknown Active Unknown Reaction Ernestine Unknown 3-23 (Robert) Kat [id number] prochlorper Base Active Unknown extrapyramidal 2017-07 [place] azine Ingredient symptoms - Dilip venlafaxine Base Active Severe Hives, 2017-07 [place] Ingredient difficulty 08-09 Dilip breathing, itching promethazin Base Active Unknown extrapyramidal 2017-07 [place] e Ingredient symptoms 08-09 Dilip Gadolinium- Allergen [...] Unknown Unknown Depot 11.25 Depot 11.25 08-16 MD,Jill mg (3 mg (3 month) month) intramuscul intramuscul ar syringe ar syringe kit kit mirtazapine mirtazapine 2017-07- No Liz Unknown Unknown 30 mg 30 mg 08-16 ,Jill tablet tablet Colace 100 Colace 100 2017-07- No Liz Unknown Unknown mg capsule mg capsule 08-16 07 Jill CARERNO DULoxetine DULoxetine 2017-07- No Liz Unknown Unknown [...] Unknown tablet tablet 08-06 ,Jill Nyamyc Nyamyc 2019- No Liz Unknown Unknown 100,000 100,000 08-02 Jill CARRENO unit/gram unit/gram topical topical powder powder fluconazole fluconazole 2018- No Liz Unknown Unknown 100 mg 100 mg 08-02 Jill CARRENO tablet tablet levoFLOXaci levoFLOXaci 2018- Liz Unknown Unknown n 750 mg n 750 mg 08-05 ,Jill tablet tablet Triple Triple 2019- Schwed Unknown Unknown Antibiotic- Antibiotic- 09-16 Darren CARRENO Pain Relief Pain Relief 3.5 mg-500 3.5 mg-500 unit-10,000 unit-10,000 unit/gram unit/gram ointmnt ointmnt fentaNYL 25 fentaNYL 25 2018- No Liz Unknown Unknown mcg/hr mcg/hr 10-01 Jill CARRENO transdermal transdermal patch patch methocarbam methocarbam 2018- No Liz Unknown Unknown ol 750 mg ol 750 mg 10-23 Jill CARRENO tablet tablet pantoprazol pantoprazol 2019- Liz Unknown Unknown e 40 mg e [...] 12-09 ,Jill tablet tablet amoxicillin amoxicillin 2018- Liz Unknown Unknown [id number] 12-09 Jill [...] 01-01 ,Jill tablet tablet predniSONE predniSONE 2018- Liz Unknown Unknown 20 mg 20 mg 01-01 Jill CARRENO tablet tablet Zithromax Zithromax 2018- No Liz Unknown Unknown 250 mg 250 mg 01-01 ,Jill tablet tablet oxygen oxygen 2018- No Liz Unknown Unknown 01-01 MD,Jill flurazepam flurazepam 2018- No Liz Unknown Unknown 30 mg 30 mg 01-01 ,Jill capsule capsule oxygen oxygen 2019- No Liz Unknown Unknown 01-06 MD,Jill glyBURIDE [...] No Liz Unknown Unknown mg mg 010-06 Jill CARRENO intravenous intravenous solution solution sulfacetami sulfacetami 2018-07- [...] tablet mg tablet 09-07 ,Jill doxycycline doxycycline 2018-07 2020- Yes Liz Unknown [...] tablet,exte nded nded release release Klor-Con Klor-Con 2020- Yes Liz Unknown Unknown M20 mEq M20 mEq 08-17 ,Jill tablet,exte tablet,exte nded nded release release traZODone traZODone Yes Liz Unknown Unknown 100 mg 100 mg 08-17 ,Jill tablet tablet fentanyl fentanyl Yes Liz Unknown Unknown 150 mcg/hr 150 mcg/hr 08-17 Jill CARRENO transdermal transdermal patch patch acetaZOLAMI acetaZOLAMI 2020- Yes Liz Unknown Unknown DE 250 mg DE 250 mg 08-17 ,Jill tablet tablet levETIRAcet levETIRAcet 2020- Yes Liz [...] mg 08-19 MD,Jill tablet tablet oxyCODONE oxyCODONE 2019- Yes Liz Unknown Unknown 10 mg 10 mg 08-19 MD,Jill tablet tablet anastrozole anastrozole 2020- Yes Liz Unknown Unknown 1 mg tablet 1 mg tablet 08-19 ,Jill Rexulti 2 Rexulti 2 Yes Liz Unknown Unknown mg tablet mg tablet 08-19 MD,Jill cetirizine cetirizine Yes Liz Unknown Unknown 10 mg 10 mg 08-19 MD,Jill tablet tablet Soma 250 mg Soma 250 mg 2020- Yes Liz Unknown Unknown tablet tablet 08-19 ,Jill gabapentin gabapentin 2020- Yes Liz Unknown Unknown 600 mg 600 mg 08-19 ,Jill tablet tablet dexAMETHaso dexAMETHaso Yes Liz Unknown Unknown ne 2 mg ne 2 mg 08-19 MD,Jill tablet tablet Xarelto 20 Xarelto 20 Yes Liz Unknown Unknown mg tablet mg tablet 08-19 ,Jill DULoxetine DULoxetine Yes Liz Unknown Unknown 60 mg 60 mg 08-19 ,Jill capsule,del capsule,del ayed ayed release release acetaZOLAMI acetaZOLAMI Yes Lzi Unknown Unknown DE 250 mg DE 250 mg 08-19 MD,Jill tablet tablet Klor-Con Klor-Con 2020- Yes Liz [...] Unknown Unknown mg tablet mg tablet 09-02 MD,Jill levETIRAcet levETIRAcet Yes Liz Unknown Unknown am 500 mg am 500 mg 08-26 MD,Jill tablet tablet levETIRAcet levETIRAcet Yes Liz Unknown Unknown am 250 mg am 250 mg 08-26 MD,Jill tablet tablet ALPRAZolam ALPRAZolam 2020- Yes Liz Unknown Unknown 1 mg tablet 1 mg tablet 08-25 MD,Jill oxyCODONE 5 oxyCODONE 5 2020- Yes Liz Unknown Unknown mg tablet mg tablet 09-02 ,Jill oxyCODONE oxyCODONE 2020- Yes Liz Unknown Unknown 10 mg 10 mg 09-02 ,Jill tablet tablet Soma 250 mg Soma 250 mg 2020- Yes Liz Unknown Unknown tablet tablet 09-02 ,Jill gabapentin gabapentin 2020- Yes Liz Unknown Unknown 600 mg 600 mg 09-04- ,Jill tablet tablet Klor-Con 10 Klor-Con 10 Yes Liz Unknown Unknown mEq mEq 09-04 MD,Jill tablet,exte tablet,exte nded nded release release mirtazapine mirtazapine Yes Liz Unknown Unknown 30 mg 30 mg 09-02 MD,Jill tablet tablet Soma 250 mg Soma 250 mg 2019- Yes Liz Unknown Unknown tablet tablet 09-09 MD,Jill omeprazole omeprazole Yes Liz Unknown Unknown 40 40 3-06 ,Jill mg-sodium mg-sodium bicarbonate bicarbonate 1.1 gram 1.1 gram capsule capsule glyBURIDE glyBURIDE 0 Yes Liz Unknown Unknown 2.5 mg 2.5 mg 09-29 MD,Jill tablet tablet gabapentin gabapentin 2020-0 Yes Liz Unknown Unknown 300 mg 300 mg 09-29 MD,Jill capsule capsule gabapentin gabapentin 2020-0 Yes Liz Unknown Unknown 600 mg 600 mg 09-29 ,Jill tablet tablet ALPRAZolam ALPRAZolam 2020-0 Yes Liz Unknown Unknown 1 mg tablet 1 mg tablet 10-06 MD,Jill oxyCODONE 5 oxyCODONE 5 2020-0 Yes Liz Unknown Unknown mg tablet mg tablet 10-06 ,Jill ondansetron ondansetron 2020-0 Yes Liz Unknown Unknown HCl 4 mg HCl 4 mg 10-06 MD,Jill tablet tablet Lupron Lupron 2019-0 Yes Liz Unknown Unknown Depot 11.25 Depot 11.25 10-06 ,Jill mg (3 mg (3 month) month) intramuscul intramuscul ar syringe ar syringe kit kit ondansetron ondansetron 2019-0 Yes Liz Unknown Unknown 4 mg 4 mg 10-06 ,Jill disintegrat disintegrat ing tablet ing tablet albuterol albuterol 2020-0 Yes Liz Unknown Unknown sulfate HFA sulfate HFA 10-06 Jill CARRENO 90 90 mcg/actuati mcg/actuati on aerosol on aerosol inhaler inhaler Imodium A-D Imodium A-D 2020-0 Yes Liz Unknown Unknown 2 mg tablet 2 mg tablet 10-06 ,Jill oxygen oxygen 2020-0 Yes Liz Unknown Unknown 10-06 ,Jill Colace 100 Colace 100 2020-0 Yes Liz Unknown Unknown mg capsule mg capsule 10-06 MD,Jill Miralax 17 Miralax 17 2020-0 Yes Liz Unknown Unknown gram oral gram oral 10-06 ,Jill powder powder packet packet Aloxi 0.25 Aloxi 0.25 2020-0 Yes Liz Unknown Unknown mg/5 mL mg/5 mL 10-06 Jill CARRENO intravenous intravenous solution solution Kadcyla 100 Kadcyla 100 2020-0 Yes Liz Unknown Unknown mg mg - ,Jill intravenous intravenous solution solution Tylenol 325 Tylenol 325 2020-0 Yes Liz Unknown Unknown mg tablet mg tablet 10-06 MD,Jill oxyCODONE oxyCODONE 2020-0 Yes Liz Unknown Unknown 10 mg 10 mg 3-18 ,Jill tablet tablet Vital Signs Vital Name Observation Time Observation Value Comments SYSTOLIC mm[Hg] 2019-08-17 18:10:05 120 mm[Hg] mm[Hg] Method: Stand SYSTOLIC mm[Hg] 2019-09-30 18:10:49 130 mm[Hg] mm[Hg] Method: Lie DIASTOLIC mm[Hg] 2019-08-17 18:10:05 80 mm[Hg] mm[Hg] Method: Stand DIASTOLIC mm[Hg] 2019-09-30 18:10:49 72 mm[Hg] mm[Hg] Method: Lie PULSE 2019-09-30 18:10:49 102 /min /min RESP RATE 2019-09-30 18:10:49 18 /min /min TEMP 2019-09-30 18:10:49 97.3 [degF] Procedures This patient has no known procedures. Results This patient has no known results.
--- OUTSIDE RECORDS SUMMARY | 2019-10-14 15:30 | XMS REPORT ---
:1975 Author Organization [facility] Care Team Providers Name Role Phone [...] Resolve 2017-072018-08-27 Love pain d 08-16 15:00:00 [place] 10:20: [id number] 00 Respiratory smoker Respirator Resolve 2017-072018-07-23 Love y d 08-16 15:00:00 [place] 10:20: [id number] 00 Endo/Jose anti-coagul Endo/Jose Resolve 2017-072018-06-25 Love ation d 08-16 15:00:00 Carly therapy 10:20: [id number] 00 Nutrition nutritional Nutrition Resolve 2017-072018-07-04 Love restriction d 08-16 15:00:00 [place] s 10:20: [id number] 00 Neuro confusion Neuro/Emot Resolve 2017-072018-08-06 Love present ion d 08-16 15:00:00 [place] 10:20: [id number] 00 Neuro anxiety Neuro/Emot Resolve 2017-072018-08-06 Love present ion d 08-16 15:00:00 [place] 10:20: [id number] 00 Neuro depressive Neuro/Emot Resolve 2017-072018-08-06 Love feelings ion d 08-16 15:00:00 [place] present 10:20: [id number] 00 Safety risk for Safety Resolve 2017-072018-07-04 Love hospitaliza d 08-16 15:00:00 [place] tion 10:20: [id number] 00 Safety fall risk Safety Resolve 2017-072018-07-04 Ericka factor d 08-16 15:00:00 Vivian present 10:20: 00 Musculoskel requires Musculoske Unknown 2017-07 Love etal human letal 08-16 [place] assist to 10:20: [id number] leave home 00 Cardio hypertensio Cardiovasc Resolve [...] d 2-10 15:00:00 [place] deficit Services 14:00: [id number] 00 Social knowledge/s BRISEYDA: Resolve 2017-072018-09-22 [facility] kill Social d 2-10 13:00:00 [place] deficit - Services 14:00: [id number] pt 00 Social knowledge/s BRISEYDA: Resolve 2017-072018-09-22 [facility] kill Social d 2-10 13:00:00 [place] deficit - Services 14:00: [id number] cg 00 Musculoskel requires Musculoske Unknown 2017-07 [place] etal human letal 2- [place] assist to 15:30: leave home 00 Diagnoses knowledge/s Diagnoses Active 2017-07 Kezia kill 2 [place] deficit: cg 13:00: [id number] 00 Integument skin Integument Resolve 2017-072018-08-06 [place] [...] Active Kezia hospitaliza 2-18 [place] tion 14:00: [id number] 00 Safety can be left Safety Unknown Kezia alone for 2-18 [place] only short 14:00: [id number] periods 00 Pain frequent Pain Mgmt Resolve 2018-09-24 Lam pain d 2-27 15:00:00 [place] 15:50: [id number] 00 Safety can be left Safety Resolve 2018-10-08 Kezia alone for d 3-04 15:00:00 [place] only short 13:00: [id number] periods 00 Cardio edema Cardiovasc Resolve 2018-10-08 [...] ion d 4-08 13:00:00 Briones present 15:45: [id number] 00 Respiratory lung sounds Respirator Resolve 2018-10-29 Shelby deficit y d 4-10 13:00:00 [place] 13:00: 00 Infection s/s of Infection Resolve 2019-02-04 Shelby infection d 4-17 12:30:00 [place] 13:00: 00 Respiratory smoker Respirator Resolve 2018-11-05 Shelby y d 4-17 13:00:00 [place] 13:00: 00 Neuro depressive Neuro/Emot Resolve 2018-12-10 Lam feelings ion d 420 12:30:00 Briones present 12:20: [id number] 00 Respiratory smoker Respirator Resolve 2018-11-20 Shelby [...] 08 13:30:00 [place] deficit - Services 13:30: [id number] pt 00 Respiratory lung sounds Respirator Resolve [...] soni n d 12-18 12:30:00 Narendra 12:30: [id number] 00 Respiratory lung sounds Respirator Resolve 2018-12-24 [...] restriction d 01-16 12:30:00 [place] s 15:00: [id number] 00 Safety can be left Safety Resolve 2019-02-18 Kezia alone for d 01-16 12:10:00 [place] only short 15:00: [id number] periods 00 Respiratory smoker Respirator Resolve 2019-01-21 [...] Social 7-12 [place] deficit - Services 14:00: [id number] cg 00 Respiratory lung sounds Respirator Resolve [...] Kezia feelings ion 02-18 [place] present 14:30: [id number] 00 Respiratory lung sounds Respirator Resolve 2019-03-04 [...] d 03-12 12:30:00 [place] only short 15:30: [id number] periods 00 Respiratory smoker Respirator Resolve 2019-03-12 [...] d 0-14 12:45:00 [place] only short 15:00: [id number] periods 00 Musculoskel requires Musculoske Unknown 2018-07 [place] etal human letal 0-16 [place] assist to 12:45: leave home 00 Respiratory oxygen Respirator Resolve 2018-072019-05-13 Hselby treatments y d 0-23 12:30:00 Vallely in [...] alone for -12 [place] only short 15:30: [id number] periods 00 Respiratory smoker Respirator Resolve 2018-072019-07-09 [...] Unknown Kezia foot care 08-05 [place] 14:00: [id number] 00 Social financial BRISEYDA: Active [facility] resource Social 08-05 [facility] deficit Services 14:00: [id number] 00 Integument skin Integument Active 2019- Love integrity 08-17 [place] risk 10:30: [id number] 00 Elimination urinary Eliminatio Resolve 2019-08-19 Love incontinenc n d 08-17 12:30:00 [place] e 10:30: [id number] 00 Elimination bowel Eliminatio Resolve 2019-09-02 Love incontinenc n d 08-17 12:30:00 [place] e 10:30: [id number] 00 Elimination diarrhea Eliminatio Resolve 2019-09-02 Love n d 08-17 12:30:00 [place] 10:30: [id number] 00 Neuro confusion Neuro/Emot Active 2019-0 Love present ion 08-17 [place] 10:30: [id number] 00 Neuro anxiety Neuro/Emot Active 2019-0 Love present ion 08-17 [place] 10:30: [id number] 00 Neuro impaired Neuro/Emot Active 2019-0 Love decision-ma ion 08-17 [place] wilmer 10:30: [id number] 00 Neuro memory Neuro/Emot Active 2019- Love deficit ion 08-17 [place] needing 10:30: [id number] supervision 00 Activity self-care Activity Active 2019- Love deficit 08-17 [place] 10:30: [id number] 00 Medication oral med Meds Resolve 2019-09-30 Love assistance d 08-17 12:30:00 [place] required 10:30: [id number] 00 Musculoskel transfer Musculoske Active 2019-0 Love etal assistance letal 08-17 [place] required 10:30: [id number] 00 Musculoskel requires Musculoske Unknown Love etal human letal 08-17 [place] assist to 10:30: [id number] leave home 00 Respiratory smoker Respirator Resolve [...] Balance/En d 2- 15:45:00 Briones durance 15:35: [id number] 00 Balance/End knowledge/s PT/OT: Resolve 2019-09-09 Lam guerrero kill Balance/En d 2- 15:45:00 [place] deficit: pt durance 15:35: [id number] 00 Gait/Locomo knowledge/s PT/OT: Resolve 2019-09-09 Lam tion kill Gait/Locom d 2-05 15:45:00 Briones problems deficit: pt otion 15:35: [id number] 00 Gait/Locomo knowledge/s PT/OT: Resolve 2019-09-09 Lam tion kill Gait/Locom d 2-05 15:45:00 Briones problems deficit: cg otion 15:35: [id number] 00 Gait/Locomo gait PT/OT: Resolve 2019-09-09 Lam tion deficit Gait/Locom d 2- 15:45:00 Briones problems otion 15:35: [id number] 00 Respiratory oxygen Respirator Resolve 2019-09-02 Shelby [...] d 3-06 15:00:00 [place] 15:00: 00 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: Active Shelby urance rdination Balance/En [...] Unknown Reaction Ernestine Unknown 10-11 (Rohan Kat [id number] effexor Unknown Active Unknown Reaction Ernestine Unknown 3-23 (Robert) Kat [id number] compazine Unknown Active Unknown Reaction Ernestine Unknown 3-23 (Robert) [place] [id number] adhesive Unknown Active Unknown Reaction Ernestine tape Unknown 3-23 (Robert) Kat [id number] milk Unknown Active Unknown Reaction Ernestine Unknown 3-23 (Robert) Kat [id number] prochlorper Base Active Unknown extrapyramidal 2017-07 [place] azine Ingredient symptoms - Dilip venlafaxine Base Active Severe Hives, 2017-07 [place] Ingredient difficulty 08-09 Dilip breathing, itching promethazin Base Active Unknown extrapyramidal 2017-07 [place] e Ingredient symptoms 08-09 Dilip Gadolinium- Allergen [...] 10-29 Jill CARRENO tablet tablet ondansetron ondansetron No Liz Unknown Unknown 4 mg 4 mg 10-29 Jill CARRENO disintegrat disintegrat ing tablet ing tablet amoxicillin amoxicillin 2018- No Liz Unknown Unknown [id number] 10-31 Jill CARRENO mg-potassiu mg-potassiu m m clavulanate clavulanate 125 mg 125 mg tablet tablet oxyCODONE oxyCODONE 2018- No Liz Unknown Unknown 10 mg 10 mg 11-19 Jill CARRENO tablet tablet nyquil nyquil 2019- No Liz Unknown Unknown 11-20 ,Jill vinorelbine [...] mg tablet 12-24 ,Jill fentaNYL fentaNYL 2019- No Liz Unknown Unknown 100 mcg/hr 100 [...] 01-01 MD,Jill tablet tablet oxygen oxygen 2018- Liz Unknown Unknown 01-01 MD,Jill flurazepam flurazepam [...] MD,Jill Soma 250 mg Soma 250 mg 2019- [...] Liz Unknown Unknown 875 mg-125 875 mg-125 05-01 ,Jill mg tablet mg tablet Kadcyla 100 Kadcyla 100 2018-07 No Liz Unknown Unknown mg mg 0 ,iJll intravenous intravenous solution solution sulfacetami sulfacetami 2018-07- [...] Liz Unknown Unknown mg tablet mg tablet ,Jill celecoxib celecoxib 2019- Yes Liz Unknown Unknown 100 mg 100 mg 07-27 ,Jill capsule capsule Dilaudid 4 Dilaudid 4 2020- Yes Liz Unknown Unknown mg tablet mg tablet 07-27 Jill CARRENO dexAMETHaso dexAMETHaso 2020- Yes Liz Unknown Unknown ne 2 mg ne 2 mg 07-27 ,Jill tablet tablet Xarelto 20 Xarelto 20 2020- Yes Liz Unknown Unknown mg tablet mg tablet 07-27 Jill CARRENO Symbicort Symbicort 0 Yes Liz Unknown Unknown 160 mcg-4.5 160 [...] mg 07-27 ,Jill tablet tablet Klor-Con Klor-Con 0 2020- Yes Liz Unknown Unknown M20 mEq M20 mEq 08-05 ,Jill tablet,exte tablet,exte nded nded release release Klor-Con Klor-Con 0 2020- Yes Liz Unknown Unknown M20 mEq M20 mEq 08-17 ,Jill tablet,exte tablet,exte nded nded release release traZODone traZODone 0 Yes Liz Unknown Unknown 100 mg 100 mg 08-17 ,Jill tablet tablet fentanyl fentanyl Yes Liz Unknown Unknown 150 mcg/hr 150 mcg/hr 08-17 ,Jill transdermal transdermal patch patch acetaZOLAMI acetaZOLAMI 2020- Yes Liz Unknown Unknown DE 250 mg DE 250 mg 08-17 ,Jill tablet tablet levETIRAcet levETIRAcet 2020- Yes Liz Unknown Unknown am 1,000 mg am 1,000 mg 08-17 Jill CARRENO tablet tablet levETIRAcet levETIRAcet 2020- Yes Liz Unknown Unknown am 250 mg am 250 mg 08-17 ,Jill tablet tablet oxyCODONE 5 oxyCODONE 5 2020- [...] Unknown mg tablet mg tablet 08-19 ,Jill cetirizine cetirizine Yes Liz Unknown Unknown 10 mg 10 mg 08-19 ,Jill tablet tablet Soma 250 mg Soma 250 mg 2020- Yes Liz Unknown Unknown tablet tablet 08-19 ,Jill gabapentin gabapentin 2020- Yes Liz Unknown Unknown 600 mg 600 mg 08-19 ,Jill tablet tablet dexAMETHaso dexAMETHaso Yes Liz Unknown Unknown ne 2 mg ne 2 mg 08-19 ,Jill tablet tablet Xarelto 20 Xarelto 20 [...] am 500 mg am 500 mg 08-19 ,Jill tablet tablet anastrozole anastrozole Yes Liz Unknown Unknown 1 mg tablet 1 mg tablet 08-19 MD,Jill oxyCODONE oxyCODONE 2020- Yes Liz Unknown Unknown 10 mg 10 mg 08-19 MD,Jill tablet tablet oxyCODONE 5 oxyCODONE 5 2020- Yes Liz Unknown Unknown mg tablet mg tablet 09-02 MD,Jill levETIRAcet levETIRAcet Yes Liz Unknown Unknown am 500 mg am 500 mg 08-26 MD,Jlil tablet tablet levETIRAcet levETIRAcet Yes Liz Unknown Unknown am 250 mg am 250 mg 08-26 MD,Jill tablet tablet ALPRAZolam ALPRAZolam Yes Liz Unknown Unknown 1 mg tablet 1 mg tablet 08-25 MD,Jill oxyCODONE 5 oxyCODONE 5 Yes Liz Unknown Unknown mg tablet mg tablet 09-02 MD,Jill oxyCODONE oxyCODONE Yes Liz Unknown Unknown 10 mg 10 mg 09-02 MD,Jill tablet tablet Soma 250 mg Soma 250 mg 2020- Yes Liz Unknown Unknown tablet tablet 09-02 MD,Jill gabapentin gabapentin 2020- Yes Liz Unknown Unknown 600 mg 600 mg 09-04 MD,Jill tablet tablet Klor-Con 10 Klor-Con 10 Yes Liz Unknown Unknown mEq mEq 09-04 MD,Jill tablet,exte tablet,exte nded nded release release mirtazapine mirtazapine Yes Liz Unknown Unknown 30 mg 30 mg 09-02 MD,Jill tablet tablet Soma 250 mg Soma 250 mg Yes Liz Unknown Unknown tablet tablet 09-09 MD,Jill omeprazole omeprazole Yes Liz Unknown Unknown 40 40 3- MD,Jill mg-sodium mg-sodium bicarbonate bicarbonate 1.1 gram 1.1 gram capsule capsule glyBURIDE glyBURIDE Yes Liz Unknown Unknown 2.5 mg 2.5 mg 09-29 MD,Jill tablet tablet gabapentin gabapentin Yes Liz Unknown Unknown 300 mg 300 mg 09-29 MD,Jill capsule capsule gabapentin gabapentin Yes Liz Unknown Unknown 600 mg 600 mg 09-29 MD,Jill tablet tablet Vital Signs Vital Name [...]
--- OUTSIDE RECORDS SUMMARY | 2019-10-14 15:30 | XMS REPORT ---
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, disorder, RN recurrent, recurrent, unspecified unspecified Anxiety Anxiety Diagnosis Active Kaylynn disorder, disorder, [place] unspecified unspecified RN Pain frequent Pain Mgmt Resolve 2017-072018-08-27 Love pain d 08-16 15:00:00 [place] 10:20: [id number] 00 Respiratory smoker Respirator Resolve 2017-072018-07-23 Love y d 08-16 15:00:00 [place] 10:20: [id number] 00 Endo/Jose anti-coagul Endo/Jose Resolve 2017-072018-06-25 Love ation d 08-16 15:00:00 [place] therapy 10:20: [id number] 00 Nutrition nutritional Nutrition Resolve 2017-072018-07-04 Love restriction d 08-16 15:00:00 [place] s 10:20: [id number] 00 Neuro confusion Neuro/Emot Resolve 2017-072018-08-06 Love present ion d 08-16 15:00:00 [place] 10:20: [id number] 00 Neuro anxiety Neuro/Emot Resolve 2017-072018-08-06 Love present ion d 08-16 15:00:00 [place] 10:20: [id number] 00 Neuro depressive Neuro/Emot Resolve 2017-072018-08-06 Love feelings ion d 08-16 15:00:00 [place] present 10:20: [id number] 00 Safety risk for Safety Resolve 2017-072018-07-04 Love hospitaliza d 08-16 15:00:00 [place] tion 10:20: [id number] 00 Safety fall risk Safety Resolve 2017-072018-07-04 Ericka factor d 08-16 15:00:00 Vivian present 10:20: 00 Musculoskel requires Musculoske Unknown 2017-07 Love etal human letal 08-16 [place] assist to 10:20: [id number] leave home 00 Cardio hypertensio Cardiovasc Resolve [...] d 2-10 15:00:00 [place] deficit Services 14:00: [id number] 00 Social knowledge/s BRISEYDA: Resolve 2017-072018-09-22 [facility] kill Social d 2-10 13:00:00 [place] deficit - Services 14:00: [id number] pt 00 Social knowledge/s BRISEYDA: Resolve 2017-072018-09-22 [facility] kill Social d 2-10 13:00:00 [place] deficit - Services 14:00: [id number] cg 00 Musculoskel requires Musculoske Unknown 2017-07 [place] etal human letal 2- [place] assist to 15:30: leave home 00 Diagnoses knowledge/s Diagnoses Active 2017-07 Kezia kill 224 [place] deficit: cg 13:00: [id number] 00 Integument skin Integument Resolve 2017-072018-08-06 [place] [...] Active Kezia hospitaliza 2-18 [place] tion 14:00: [id number] 00 Safety can be left Safety Unknown Kezia alone for 2-18 [place] only short 14:00: [id number] periods 00 Pain frequent Pain Mgmt Resolve 2018-09-24 Lam pain d 2-27 15:00:00 [place] 15:50: [id number] 00 Safety can be left Safety Resolve 2018-10-08 Kezia alone for d 3-04 15:00:00 [place] only short 13:00: [id number] periods 00 Cardio edema Cardiovasc Resolve 2018-2018-10-08 [...] ion d 4-08 13:00:00 Briones present 15:45: [id number] 00 Respiratory lung sounds Respirator Resolve 2018-10-29 [place] deficit y d 4-10 13:00:00 [place] 13:00: 00 Infection s/s of Infection Resolve 2019-02-04 [place] infection d 4-17 12:30:00 [place] 13:00: 00 Respiratory smoker Respirator Resolve 2018-11-05 Shelby y d 4-17 13:00:00 [place] 13:00: 00 Neuro depressive Neuro/Emot Resolve 2018-12-10 Lam feelings ion d 4 12:30:00 Briones present 12:20: [id number] 00 Respiratory smoker Respirator Resolve 2018-11-20 Shelby y d 4-24 12:30:00 [place] 12:30: 00 Respiratory oxygen Respirator Resolve 2018-12-04 Shelby treatments y d 5 12:30:00 Vallely in home 12:30: 00 Respiratory smoker Respirator Resolve 2019-01-07 Shelby y d 5 12:30:00 [place] 12:30: 00 Safety can be left Safety Resolve 2018-12-10 Shebly alone for d 11-26 12:30:00 [place] only short 12:30: periods 00 Social knowledge/s BRISEYDA: Resolve 2018-11-26 [facility] kill Social d 11-26 13:30:00 [place] deficit - Services 13:30: [id number] pt 00 Respiratory lung sounds Respirator Resolve [...] soni n d 12-18 12:30:00 Narendra 12:30: [id number] 00 Respiratory lung sounds Respirator Resolve 2018-12-24 Shelby deficit y d 605 12:30:00 [place] 12:30: 00 Elimination diarrhea Eliminatio Resolve 2018-12-31 Shelby n d 605 12:30:00 [place] 12:30: 00 Cardio hypertensio Cardiovasc Resolve 2019-01-07 hSelby bravo d 6 12:30:00 [place] 12:30: 00 [...] restriction d 01-16 12:30:00 [place] s 15:00: [id number] 00 Safety can be left Safety Resolve 2019-02-18 Kezia alone for d 01-16 12:10:00 [place] only short 15:00: [id number] periods 00 Respiratory smoker Respirator Resolve 2019-01-21 [...] Social 7-12 [place] deficit - Services 14:00: [id number] cg 00 Respiratory lung sounds Respirator Resolve [...] Kezia feelings ion 02-18 [place] present 14:30: [id number] 00 Respiratory lung sounds Respirator Resolve 2019-03-04 [...] d 03-12 12:30:00 [place] only short 15:30: [id number] periods 00 Respiratory smoker Respirator Resolve 2019-03-12 [...] home 00 Respiratory oxygen Respirator Resolve 2019-04-01 Shebly treatments y d 9- 12:30:00 Vallely in [...] d 0-14 12:45:00 [place] only short 15:00: [id number] periods 00 Musculoskel requires Musculoske Unknown 2018-07 [...] alone for 12 [place] only short 15:30: [id number] periods 00 Respiratory smoker Respirator Resolve 2018-072019-07-09 [...] Unknown [facility] foot care 08-05 [place] 14:00: [id number] 00 Social financial BRISEYDA: Active [facility] resource Social 08-05 [facility] deficit Services 14:00: [id number] 00 Integument skin Integument Active 2019- Love integrity 08-17 [place] risk 10:30: [id number] 00 Elimination urinary Eliminatio Resolve 2019-08-19 Love incontinenc n d 08-17 12:30:00 [place] e 10:30: [id number] 00 Elimination bowel Eliminatio Resolve 2019-09-02 Love incontinenc n d 08-17 12:30:00 [place] e 10:30: [id number] 00 Elimination diarrhea Eliminatio Resolve 2019-09-02 Love n d 08-17 12:30:00 [place] 10:30: [id number] 00 Neuro confusion Neuro/Emot Active 2019-0 Love present ion 08-17 [place] 10:30: [id number] 00 Neuro anxiety Neuro/Emot Active 2019-0 Love present ion 08-17 [place] 10:30: [id number] 00 Neuro impaired Neuro/Emot Active 2019-0 Love decision-ma ion 08-17 [place] wilmer 10:30: [id number] 00 Neuro memory Neuro/Emot Active 2019-0 Love deficit ion 08-17 [place] needing 10:30: [id number] supervision 00 Activity self-care Activity Active 2019-0 Love deficit 08-17 [place] 10:30: [id number] 00 Medication oral med Meds Resolve 2019-09-30 Love assistance d 08-17 12:30:00 [place] required 10:30: [id number] 00 Musculoskel transfer Musculoske Active 2019-0 Love etal assistance letal 08-17 [place] required 10:30: [id number] 00 Musculoskel requires Musculoske Unknown Love etal human letal 08-17 [place] assist to 10:30: [id number] leave home 00 Respiratory smoker Respirator Resolve [...] Balance/En d 2- 15:45:00 Briones durance 15:35: [id number] 00 Balance/End knowledge/s PT/OT: Resolve 2019-09-09 Lam guerrero kill Balance/En d 2- 15:45:00 Br[place] deficit: pt durance 15:35: [id number] 00 Gait/Locomo knowledge/s PT/OT: Resolve 2019-09-09 Lam tion kill Gait/Locom d 2-05 15:45:00 Briones problems deficit: pt otion 15:35: [id number] 00 Gait/Locomo knowledge/s PT/OT: Resolve 2019-09-09 Lam tion kill Gait/Locom d 2-05 15:45:00 Briones problems deficit: cg otion 15:35: [id number] 00 Gait/Locomo gait PT/OT: Resolve 2019-09-09 Lam tion deficit Gait/Locom d 2- 15:45:00 Briones problems otion 15:35: [id number] 00 Respiratory oxygen Respirator Resolve 2019-09-02 Shelby [...] d 3-06 15:00:00 [place] 15:00: 00 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: Active Shelby urance rdination Balance/En 3-06 [...] Unknown Reaction Ernestine Unknown 10-11 (Rohan Kat [id number] effexor Unknown Active Unknown Reaction Ernestine Unknown 3-23 (Robert) [place] [id number] compazine Unknown Active Unknown Reaction Ernestine Unknown 3-23 (Robert) [place] [id number] adhesive Unknown Active Unknown Reaction Ernestine tape Unknown 3-23 (Robert) [place] [id number] milk Unknown Active Unknown Reaction Ernestine Unknown 3-23 (Robert) [place] [id number] prochlorper Base Active Unknown extrapyramidal 2017-07 [place] azine Ingredient symptoms - Dilip venlafaxine Base Active Severe Hives, 2017-07 [place] Ingredient difficulty 08-09 Dilip breathing, itching promethazin Base Active Unknown extrapyramidal 2017-07 [place] e Ingredient symptoms 08-09 Dilip Gadolinium- Allergen [...] Unknown 30 mg 30 mg 08-16 Jill CRARENO tablet tablet Colace 100 Colace 100 2017-07- [...]
--- OUTSIDE RECORDS SUMMARY | 2019-10-14 15:30 | XMS REPORT ---
:1975 Author Organization [facility] Care Team Providers Name Role [...] Resolve 2017-072018-08-27 Love pain d 08-16 15:00:00 [place] 10:20: [id number] 00 Respiratory smoker Respirator Resolve 2017-072018-07-23 Love y d 08-16 15:00:00 [place] 10:20: [id number] 00 Endo/Jose anti-coagul Endo/Jose Resolve 2017-072018-06-25 Love ation d 08-16 15:00:00 Carly therapy 10:20: [id number] 00 Nutrition nutritional Nutrition Resolve 2017-072018-07-04 Love restriction d 08-16 15:00:00 Mil[place] s 10:20: [id number] 00 Neuro confusion Neuro/Emot Resolve 2017-072018-08-06 Love present ion d 08-16 15:00:00 [place] 10:20: [id number] 00 Neuro anxiety Neuro/Emot Resolve 2017-072018-08-06 Love present ion d 08-16 15:00:00 [place] 10:20: [id number] 00 Neuro depressive Neuro/Emot Resolve 2017-072018-08-06 Love feelings ion d 08-16 15:00:00 [place] present 10:20: [id number] 00 Safety risk for Safety Resolve 2017-072018-07-04 Love hospitaliza d 08-16 15:00:00 [place] tion 10:20: [id number] 00 Safety fall risk Safety Resolve 2017-072018-07-04 Ericka factor d 08-16 15:00:00 Vivian present 10:20: 00 Musculoskel requires Musculoske Unknown 2017-07 Love etal human letal 08-16 [place] assist to 10:20: [id number] leave home 00 Cardio hypertensio Cardiovasc Resolve [...] d 2-10 15:00:00 [place] deficit Services 14:00: [id number] 00 Social knowledge/s BRISEYDA: Resolve 2017-072018-09-22 [facility] kill Social d 2-10 13:00:00 [place] deficit - Services 14:00: [id number] pt 00 Social knowledge/s BRISEYDA: Resolve 2017-072018-09-22 [facility] kill Social d 2-10 13:00:00 [place] deficit - Services 14:00: [id number] cg 00 Musculoskel requires Musculoske Unknown 2017-07 Shelby etal human letal 2- [place] assist to 15:30: leave home 00 Diagnoses knowledge/s Diagnoses Active 2017-07 Kezia kill 2 [place] deficit: cg 13:00: [id number] 00 Integument skin Integument Resolve 2017-072018-08-06 Shelby [...] Active Kezia hospitaliza 2-18 [place] tion 14:00: [id number] 00 Safety can be left Safety Unknown Kezia alone for 2-18 [place] only short 14:00: [id number] periods 00 Pain frequent Pain Mgmt Resolve 2018-09-24 Lam pain d 2-27 15:00:00 Briones 15:50: [id number] 00 Safety can be left Safety Resolve 2018-10-08 Kezia alone for d 3-04 15:00:00 [place] only short 13:00: [id number] periods 00 Cardio edema Cardiovasc Resolve 2018-10-08 [...] ion d 4-08 13:00:00 Briones present 15:45: [id number] 00 Respiratory lung sounds Respirator Resolve 2018-10-29 Shelby deficit y d 4-10 13:00:00 [place] 13:00: 00 Infection s/s of Infection Resolve 2019-02-04 Shelby infection d 4-17 12:30:00 [place] 13:00: 00 Respiratory smoker Respirator Resolve 2018-11-05 Shelby y d 4-17 13:00:00 [place] 13:00: 00 Neuro depressive Neuro/Emot Resolve 2018-12-10 Lam feelings ion d 420 12:30:00 Briones present 12:20: [id number] 00 Respiratory smoker Respirator Resolve 2018-11-20 Shelby [...] 08 13:30:00 [place] deficit - Services 13:30: [id number] pt 00 Respiratory lung sounds Respirator Resolve [...] soni n d 12-18 12:30:00 Narendra 12:30: [id number] 00 Respiratory lung sounds Respirator Resolve 2018-12-24 [...] restriction d 01-16 12:30:00 [place] s 15:00: [id number] 00 Safety can be left Safety Resolve 2019-02-18 Kezia alone for d 01-16 12:10:00 [place] only short 15:00: [id number] periods 00 Respiratory smoker Respirator Resolve 2019-01-21 [...] Social 7-12 [place] deficit - Services 14:00: [id number] cg 00 Respiratory lung sounds Respirator Resolve [...] 12:10: 00 Respiratory dyspnea Respirator Resolve 2019-07-16 [place] present y d 02-18 12:30:00 [place] 12:10: 00 Respiratory oxygen Respirator Resolve 2019-02-18 Shelby treatments y d 7 12:10:00 [place] in home 12:10: 00 Neuro depressive Neuro/Emot Unknown Kezia feelings ion 02-18 [place] present 14:30: [id number] 00 Respiratory lung sounds Respirator Resolve 2019-03-04 [...] d 03-12 12:30:00 [place] only short 15:30: [id number] periods 00 Respiratory smoker Respirator Resolve 2019-03-12 [...] 12:30: 00 Respiratory smoker Respirator Resolve 2019-03-18 Hselby y d 03-18 12:30:00 [place] 12:30: 00 [...] d 0-14 12:45:00 [place] only short 15:00: [id number] periods 00 Musculoskel requires Musculoske Unknown 2018-07 [...] alone for -12 [place] only short 15:30: [id number] periods 00 Respiratory smoker Respirator Resolve 2018-072019-07-09 [...] Unknown Kezia foot care 08-05 [place] 14:00: [id number] 00 Social financial BRISEYDA: Active Ke[facility] Services resource Social 08-05 [facility] deficit Services 14:00: [id number] 00 Integument skin Integument Active 2019- Love integrity 08-17 Mil[place] risk 10:30: [id number] 00 Elimination urinary Eliminatio Resolve 2019-08-19 Love incontinenc n d 08-17 12:30:00 Mil[place] e 10:30: [id number] 00 Elimination bowel Eliminatio Resolve 2019-09-02 Love incontinenc n d 08-17 12:30:00 Mil[place] e 10:30: [id number] 00 Elimination diarrhea Eliminatio Resolve 2019-09-02 Love n d 08-17 12:30:00 [place] 10:30: [id number] 00 Neuro confusion Neuro/Emot Active 2019-0 Love present ion 08-17 Mil[place] 10:30: [id number] 00 Neuro anxiety Neuro/Emot Active 2019-0 Love present ion 08-17 Milmine 10:30: [id number] 00 Neuro impaired Neuro/Emot Active 2019-0 Love decision-ma ion 08-17 Milmine wilmer 10:30: [id number] 00 Neuro memory Neuro/Emot Active 2019- Love deficit ion 08-17 Milmine needing 10:30: [id number] supervision 00 Activity self-care Activity Active 2019- Love deficit 08-17 [place] 10:30: [id number] 00 Medication oral med Meds Resolve 2019-09-30 Love assistance d 08-17 12:30:00 [place] required 10:30: [id number] 00 Musculoskel transfer Musculoske Active 2019-0 Love etal assistance letal 08-17 Milmine required 10:30: [id number] 00 Musculoskel requires Musculoske Unknown Love etal human letal 08-17 Milmine assist to 10:30: [id number] leave home 00 Respiratory smoker Respirator Resolve [...] Balance/En d 2- 15:45:00 Briones durance 15:35: [id number] 00 Balance/End knowledge/s PT/OT: Resolve 2019-09-09 Lam guerrero kill Balance/En d 2- 15:45:00 Briones deficit: pt durance 15:35: [id number] 00 Gait/Locomo knowledge/s PT/OT: Resolve 2019-09-09 Lam tion kill Gait/Locom d 2-05 15:45:00 Briones problems deficit: pt otion 15:35: [id number] 00 Gait/Locomo knowledge/s PT/OT: Resolve 2019-09-09 Lam tion kill Gait/Locom d 2-05 15:45:00 Briones problems deficit: cg otion 15:35: [id number] 00 Gait/Locomo gait PT/OT: Resolve 2019-09-09 Lam tion deficit Gait/Locom d 2- 15:45:00 Briones problems otion 15:35: [id number] 00 Respiratory oxygen Respirator Resolve 2019-09-02 Shelby [...] d 3-06 15:00:00 [place] 15:00: 00 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: Active Shelby urance rdination Balance/En [...] Unknown Reaction Ernestine Unknown 10-11 (Rohan Kat [id number] effexor Unknown Active Unknown Reaction Ernestine Unknown 3-23 (Robert) Kat [id number] compazine Unknown Active Unknown Reaction Ernestine Unknown 3-23 (Robert) [place] [id number] adhesive Unknown Active Unknown Reaction Ernestine tape Unknown 3-23 (Robert) Kat [id number] milk Unknown Active Unknown Reaction Ernestine Unknown 3-23 (Robert) Kat [id number] prochlorper Base Active Unknown extrapyramidal 2017-07 [place] azine Ingredient symptoms - Dilip venlafaxine Base Active Severe Hives, 2017-07 [place] Ingredient difficulty 08-09 Dilip breathing, itching promethazin Base Active Unknown extrapyramidal 2017-07 [place] e Ingredient symptoms 08-09 Dilip Gadolinium- Allergen [...] mg tablet 1 mg tablet 08-19 ,Jill oxyCODONE oxyCODONE 2020- Yes Liz Unknown Unknown 10 mg 10 mg 08-19 ,Jill tablet tablet oxyCODONE 5 oxyCODONE 5 [...] ,Jill tablet tablet Klor-Con 10 Klor-Con 10 2020- Yes Liz Unknown Unknown mEq mEq [...] Unknown Unknown 2.5 mg 2.5 mg 09-29 ,Jill tablet tablet gabapentin gabapentin 2019-0 Yes Liz Unknown Unknown 300 mg 300 mg 09-29 MD,Jill capsule capsule gabapentin gabapentin 2019-0 Yes Liz Unknown Unknown 600 mg 600 mg 09-29 Jill CARRENO tablet tablet ALPRAZolam ALPRAZolam 2019-0 Yes Liz Unknown Unknown 1 mg tablet 1 mg tablet 10-06 MD,Jill oxyCODONE 5 oxyCODONE 5 2019-0 Yes Liz Unknown Unknown mg tablet mg tablet 10-06 ,Jill ondansetron ondansetron 2019-0 Yes Liz Unknown Unknown HCl 4 mg HCl 4 mg 10-06 ,Jill tablet tablet Lupron Lupron Yes Liz Unknown Unknown Depot 11.25 Depot 11.25 10-06 Jill CARRENO mg (3 mg (3 month) month) intramuscul intramuscul ar syringe ar syringe kit kit ondansetron ondansetron 0 Yes Liz Unknown Unknown 4 mg 4 [...] oxygen oxygen 2019-0 Yes Liz Unknown Unknown 10-06 ,Jill Colace 100 Colace 100 2020-0 Yes Liz Unknown Unknown mg capsule mg capsule 10-06 ,Jill Miralax 17 Miralax 17 2020-0 Yes Liz Unknown Unknown gram oral gram oral 10-06 Jill CARRENO powder powder packet packet Aloxi 0.25 Aloxi 0.25 2020-0 Yes Liz Unknown Unknown mg/5 mL mg/5 mL 10-06 Jill CARRENO intravenous intravenous solution solution Kadcyla 100 Kadcyla 100 2020-0 Yes Liz Unknown Unknown mg mg 10-06 ,Jill intravenous intravenous solution solution Tylenol 325 Tylenol 325 2019-0 Yes Liz Unknown Unknown mg tablet mg tablet 10-06 ,Jill oxyCODONE oxyCODONE 2019-0 Yes Liz Unknown Unknown 10 mg 10 mg 3-18 ,Jill tablet tablet Klor-Con Klor-Con 2019-0 Yes Liz Unknown Unknown M20 mEq M20 mEq 18 MD,Jill tablet,exte tablet,exte nded nded release release [...]
--- OUTSIDE RECORDS SUMMARY | 2019-10-14 15:31 | XMS REPORT ---
:1975 Author Organization [facility] Care Team Providers Name Role [...] Resolve 2017-072018-08-27 Love pain d 08-16 15:00:00 [place] 10:20: [id number] 00 Respiratory smoker Respirator Resolve 2017-072018-07-23 Love y d 08-16 15:00:00 [place] 10:20: [id number] 00 Endo/Jose anti-coagul Endo/Jose Resolve 2017-072018-06-25 Love ation d 08-16 15:00:00 Carly therapy 10:20: [id number] 00 Nutrition nutritional Nutrition Resolve 2017-072018-07-04 Love restriction d 08-16 15:00:00 [place] s 10:20: [id number] 00 Neuro confusion Neuro/Emot Resolve 2017-072018-08-06 Loev present ion d 08-16 15:00:00 [place] 10:20: [id number] 00 Neuro anxiety Neuro/Emot Resolve 2017-072018-08-06 Love present ion d 08-16 15:00:00 [place] 10:20: [id number] 00 Neuro depressive Neuro/Emot Resolve 2017-072018-08-06 Love feelings ion d 08-16 15:00:00 [place] present 10:20: [id number] 00 Safety risk for Safety Resolve 2017-072018-07-04 Love hospitaliza d 08-16 15:00:00 [place] tion 10:20: [id number] 00 Safety fall risk Safety Resolve 2017-072018-07-04 Ericka factor d 08-16 15:00:00 Vivian present 10:20: 00 Musculoskel requires Musculoske Unknown 2017-07 Love etal human letal 08-16 [place] assist to 10:20: [id number] leave home 00 Cardio hypertensio Cardiovasc Resolve [...] 13:00: 00 Nutrition changing Nutrition Resolve 2017-072018-07-04 [place]sel[place] weight/appe d 08-20 15:00:00 [place] tite 13:00: [...] d 2-10 15:00:00 [place] deficit Services 14:00: [id number] 00 Social knowledge/s BRISEYDA: Resolve 2017-072018-09-22 [facility] kill Social d 2-10 13:00:00 [place] deficit - Services 14:00: [id number] pt 00 Social knowledge/s BRISEYDA: Resolve 2017-072018-09-22 [facility] kill Social d 2-10 13:00:00 [place] deficit - Services 14:00: [id number] cg 00 Musculoskel requires Musculoske Unknown 2017-07 Shelby etal human letal 2- [place]le[place] assist to 15:30: leave home 00 Diagnoses knowledge/s Diagnoses Active 2017-07 Kezia kill 2 [place] deficit: cg 13:00: [id number] 00 Integument skin Integument Resolve 2017-072018-08-06 Shelby [...] Active Kezia hospitaliza 2-18 [place] tion 14:00: [id number] 00 Safety can be left Safety Unknown Kezia alone for 2-18 [place] only short 14:00: [id number] periods 00 Pain frequent Pain Mgmt Resolve 2018-09-24 Lam pain d 2-27 15:00:00 Briones 15:50: [id number] 00 Safety can be left Safety Resolve 2018-10-08 Kezia alone for d 3-04 15:00:00 [place] only short 13:00: [id number] periods 00 Cardio edema Cardiovasc Resolve 2018-10-08 [...] ion d 4-08 13:00:00 Briones present 15:45: [id number] 00 Respiratory lung sounds Respirator Resolve 2018-10-29 Shelby deficit y d 4-10 13:00:00 [place] 13:00: 00 Infection s/s of Infection Resolve 2019-02-04 Shelby infection d 4-17 12:30:00 [place] 13:00: 00 Respiratory smoker Respirator Resolve 2018-11-05 Shelby y d 4-17 13:00:00 [place] 13:00: 00 Neuro depressive Neuro/Emot Resolve 2018-12-10 Lam feelings ion d 420 12:30:00 Briones present 12:20: [id number] 00 Respiratory smoker Respirator Resolve 2018-11-20 Shelby [...] 08 13:30:00 [place] deficit - Services 13:30: [id number] pt 00 Respiratory lung sounds Respirator Resolve [...] soni n d 12-18 12:30:00 Narendra 12:30: [id number] 00 Respiratory lung sounds Respirator Resolve 2018-12-24 [...] restriction d 01-16 12:30:00 [place] s 15:00: [id number] 00 Safety can be left Safety Resolve 2019-02-18 Kezia alone for d 01-16 12:10:00 [place] only short 15:00: [id number] periods 00 Respiratory smoker Respirator Resolve 2019-01-21 [...] Social 7-12 [place] deficit - Services 14:00: [id number] cg 00 Respiratory lung sounds Respirator Resolve [...] Kezia feelings ion 02-18 [place] present 14:30: [id number] 00 Respiratory lung sounds Respirator Resolve 2019-03-04 [...] d 03-12 12:30:00 [place] only short 15:30: [id number] periods 00 Respiratory smoker Respirator Resolve 2019-03-12 [...] d 0-14 12:45:00 [place] only short 15:00: [id number] periods 00 Musculoskel requires Musculoske Unknown 2018-07 [...] alone for -12 [place] only short 15:30: [id number] periods 00 Respiratory smoker Respirator Resolve 2018-072019-07-09 [...] Unknown [facility] foot care 08-05 [place] 14:00: [id number] 00 Social financial BRISEYDA: Active Ke[facility] Services resource Social 08-05 [facility] deficit Services 14:00: [id number] 00 Integument skin Integument Active 2019- Love integrity 08-17 [place] risk 10:30: [id number] 00 Elimination urinary Eliminatio Resolve 2019-08-19 Love incontinenc n d 08-17 12:30:00 [place] e 10:30: [id number] 00 Elimination bowel Eliminatio Resolve 2019-09-02 Love incontinenc n d 08-17 12:30:00 [place] e 10:30: [id number] 00 Elimination diarrhea Eliminatio Resolve 2019-09-02 Love n d 08-17 12:30:00 [place] 10:30: [id number] 00 Neuro confusion Neuro/Emot Active 2019-0 Love present ion 08-17 [place] 10:30: [id number] 00 Neuro anxiety Neuro/Emot Active 2019-0 Love present ion 08-17 [place] 10:30: [id number] 00 Neuro impaired Neuro/Emot Active 2019-0 Love decision-ma ion 08-17 [place] wilmer 10:30: [id number] 00 Neuro memory Neuro/Emot Active 2019- Love deficit ion 08-17 [place] needing 10:30: [id number] supervision 00 Activity self-care Activity Active 2019- Love deficit 08-17 [place] 10:30: [id number] 00 Medication oral med Meds Resolve 2019-09-30 Love assistance d 08-17 12:30:00 [place] required 10:30: [id number] 00 Musculoskel transfer Musculoske Active 2019-0 Love etal assistance letal 08-17 [place] required 10:30: [id number] 00 Musculoskel requires Musculoske Unknown Love etal human letal 08-17 [place] assist to 10:30: [id number] leave home 00 Respiratory smoker Respirator Resolve [...] Balance/En d 2- 15:45:00 Briones durance 15:35: [id number] 00 Balance/End knowledge/s PT/OT: Resolve 2019-09-09 Lam guerrero kill Balance/En d 2- 15:45:00 Briones deficit: pt durance 15:35: [id number] 00 Gait/Locomo knowledge/s PT/OT: Resolve 2019-09-09 Lam tion kill Gait/Locom d 2-05 15:45:00 Briones problems deficit: pt otion 15:35: [id number] 00 Gait/Locomo knowledge/s PT/OT: Resolve 2019-09-09 Lam tion kill Gait/Locom d 2-05 15:45:00 Briones problems deficit: cg otion 15:35: [id number] 00 Gait/Locomo gait PT/OT: Resolve 2019-09-09 Lam tion deficit Gait/Locom d 2- 15:45:00 Briones problems otion 15:35: [id number] 00 Respiratory oxygen Respirator Resolve 2019-09-02 Shelby [...] d 3-06 15:00:00 [place] 15:00: 00 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 Shelby urance rdination Balance/En [...] Unknown Reaction Ernestine Unknown 10-11 (Rohan Kat [id number] effexor Unknown Active Unknown Reaction Ernestine Unknown 3-23 (Robert) Kat [id number] compazine Unknown Active Unknown Reaction Ernestine Unknown 3-23 (Robert) [place] [id number] adhesive Unknown Active Unknown Reaction Ernestine tape Unknown 3-23 (Robert) Kat [id number] milk Unknown Active Unknown Reaction Ernestine Unknown 3-23 (Robert) Kat [id number] prochlorper Base Active Unknown extrapyramidal 2017-07 [place] azine Ingredient symptoms - Dilip venlafaxine Base Active Severe Hives, 2017-07 [place] Ingredient difficulty 08-09 Dilip breathing, itching promethazin Base Active Unknown extrapyramidal 2017-07 [place] e Ingredient symptoms 08-09 Dilip Gadolinium- Allergen [...] No Liz Unknown Unknown mg mg 0 ,Jill [...] mg 09-01 ,Jill tablet tablet dexAMETHaso dexAMETHaso 2018-07 2020- Yes Liz Unknown Unknown ne 2 mg ne 2 mg 09-07 ,Jill tablet tablet Xarelto 20 Xarelto 20 2018-07 2020- Yes Liz Unknown Unknown mg [...]
--- OUTSIDE RECORDS SUMMARY | 2019-10-14 15:31 | XMS REPORT ---
:1975 Author Organization [facility] Care Team Providers Name Role [...] Resolve 2017-072018-08-27 Love pain d 08-16 15:00:00 [place] 10:20: [id number] 00 Respiratory smoker Respirator Resolve 2017-072018-07-23 Love y d 08-16 15:00:00 [place] 10:20: [id number] 00 Endo/Jose anti-coagul Endo/Jose Resolve 2017-072018-06-25 Olve ation d 08-16 15:00:00 Carly therapy 10:20: [id number] 00 Nutrition nutritional Nutrition Resolve 2017-072018-07-04 Love restriction d 08-16 15:00:00 [place] s 10:20: [id number] 00 Neuro confusion Neuro/Emot Resolve 2017-072018-08-06 Love present ion d 08-16 15:00:00 [place] 10:20: [id number] 00 Neuro anxiety Neuro/Emot Resolve 2017-072018-08-06 Love present ion d 08-16 15:00:00 [place] 10:20: [id number] 00 Neuro depressive Neuro/Emot Resolve 2017-072018-08-06 Love feelings ion d 08-16 15:00:00 [place] present 10:20: [id number] 00 Safety risk for Safety Resolve 2017-072018-07-04 Love hospitaliza d 08-16 15:00:00 [place] tion 10:20: [id number] 00 Safety fall risk Safety Resolve 2017-072018-07-04 Ericka factor d 08-16 15:00:00 Vivian present 10:20: 00 Musculoskel requires Musculoske Unknown 2017-07 Love etal human letal 08-16 [place] assist to 10:20: [id number] leave home 00 Cardio hypertensio Cardiovasc Resolve [...] d 2-10 15:00:00 [place] deficit Services 14:00: [id number] 00 Social knowledge/s BRISEYDA: Resolve 2017-072018-09-22 Ke[facility] Services kill Social d 2-10 13:00:00 [place] deficit - Services 14:00: [id number] pt 00 Social knowledge/s BRSIEYDA: Resolve 2017-072018-09-22 [facility] Services kill Social d 2-10 13:00:00 [place] deficit - Services 14:00: [id number] cg 00 Musculoskel requires Musculoske Unknown 2017-07 [place] etal human letal 2- [place] assist to 15:30: leave home 00 Diagnoses knowledge/s Diagnoses Active 2017-07 Kezia kill 2 [place] deficit: cg 13:00: [id number] 00 Integument skin Integument Resolve 2017-072018-08-06 [place] [...] Active Kezia hospitaliza 2-18 [place] tion 14:00: [id number] 00 Safety can be left Safety Unknown Kezia alone for 2-18 [place] only short 14:00: [id number] periods 00 Pain frequent Pain Mgmt Resolve 2018-09-24 Lam pain d 2-27 15:00:00 Br[place] 15:50: [id number] 00 Safety can be left Safety Resolve 2018-10-08 Kezia alone for d 3-04 15:00:00 [place] only short 13:00: [id number] periods 00 Cardio edema Cardiovasc Resolve 2018-10-08 [...] ion d 4-08 13:00:00 Briones present 15:45: [id number] 00 Respiratory lung sounds Respirator Resolve 2018-10-29 Shelby deficit y d 4-10 13:00:00 [place] 13:00: 00 Infection s/s of Infection Resolve 2019-02-04 Shelby infection d 4-17 12:30:00 [place] 13:00: 00 Respiratory smoker Respirator Resolve 2018-11-05 Shelby y d 4-17 13:00:00 [place] 13:00: 00 Neuro depressive Neuro/Emot Resolve 2018-12-10 Lam feelings ion d 420 12:30:00 Briones present 12:20: [id number] 00 Respiratory smoker Respirator Resolve 2018-11-20 Shelby [...] 08 13:30:00 [place] deficit - Services 13:30: [id number] pt 00 Respiratory lung sounds Respirator Resolve [...] soni n d 12-18 12:30:00 Narendra 12:30: [id number] 00 Respiratory lung sounds Respirator Resolve 2018-12-24 [...] restriction d 01-16 12:30:00 [place] s 15:00: [id number] 00 Safety can be left Safety Resolve 2019-02-18 Kezia alone for d 01-16 12:10:00 [place] only short 15:00: [id number] periods 00 Respiratory smoker Respirator Resolve 2019-01-21 [...] Social 7-12 [place] deficit - Services 14:00: [id number] cg 00 Respiratory lung sounds Respirator Resolve [...] Kezia feelings ion 02-18 [place] present 14:30: [id number] 00 Respiratory lung sounds Respirator Resolve 2019-03-04 [...] d 03-12 12:30:00 [place] only short 15:30: [id number] periods 00 Respiratory smoker Respirator Resolve 2019-03-12 [...] d 0-14 12:45:00 [place] only short 15:00: [id number] periods 00 Musculoskel requires Musculoske Unknown 2018-07 [...] alone for -12 [place] only short 15:30: [id number] periods 00 Respiratory smoker Respirator Resolve 2018-072019-07-09 [...] Unknown Kezia foot care 08-05 [place] 14:00: [id number] 00 Social financial BRISEYDA: Active Kezia Services resource Social 08-05 [facility] deficit Services 14:00: [id number] 00 Integument skin Integument Active 2019- Love integrity 08-17 [place] risk 10:30: [id number] 00 Elimination urinary Eliminatio Resolve 2019-08-19 Love incontinenc n d 08-17 12:30:00 [place] e 10:30: [id number] 00 Elimination bowel Eliminatio Resolve 2019-09-02 Love incontinenc n d 08-17 12:30:00 [place] e 10:30: [id number] 00 Elimination diarrhea Eliminatio Resolve 2019-09-02 Love n d 08-17 12:30:00 [place] 10:30: [id number] 00 Neuro confusion Neuro/Emot Active 2019-0 Love present ion 08-17 [place] 10:30: [id number] 00 Neuro anxiety Neuro/Emot Active 2019-0 Love present ion 08-17 [place] 10:30: [id number] 00 Neuro impaired Neuro/Emot Active 2019-0 Love decision-ma ion 08-17 [place] wilmer 10:30: [id number] 00 Neuro memory Neuro/Emot Active 2019- Love deficit ion 08-17 [place] needing 10:30: [id number] supervision 00 Activity self-care Activity Active 2019- Love deficit 08-17 [place] 10:30: [id number] 00 Medication oral med Meds Resolve 2019-09-30 Love assistance d 08-17 12:30:00 [place] required 10:30: [id number] 00 Musculoskel transfer Musculoske Active 2019-0 Love etal assistance letal 08-17 [place] required 10:30: [id number] 00 Musculoskel requires Musculoske Unknown Love etal human letal 08-17 [place] assist to 10:30: [id number] leave home 00 Respiratory smoker Respirator Resolve [...] Balance/En d 2- 15:45:00 Briones durance 15:35: [id number] 00 Balance/End knowledge/s PT/OT: Resolve 2019-09-09 Lam guerrero kill Balance/En d 2- 15:45:00 [place] deficit: pt durance 15:35: [id number] 00 Gait/Locomo knowledge/s PT/OT: Resolve 2019-09-09 Lam tion kill Gait/Locom d 2-05 15:45:00 Briones problems deficit: pt otion 15:35: [id number] 00 Gait/Locomo knowledge/s PT/OT: Resolve 2019-09-09 Lam tion kill Gait/Locom d 2-05 15:45:00 Br[place] problems deficit: cg otion 15:35: [id number] 00 Gait/Locomo gait PT/OT: Resolve 2019-09-09 Lam tion deficit Gait/Locom d 2- 15:45:00 Briones problems otion 15:35: [id number] 00 Respiratory oxygen Respirator Resolve 2019-09-02 [place] [...] d 3-06 15:00:00 [place] 15:00: 00 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: Active Shelby urance rdination Balance/En [...] Unknown Reaction Ernestine Unknown 10-11 (Rohan Kat [id number] effexor Unknown Active Unknown Reaction Ernestine Unknown 3-23 (Robert) Kat [id number] compazine Unknown Active Unknown Reaction Ernestine Unknown 3-23 (Robert) North [id number] adhesive Unknown Active Unknown Reaction Ernestine tape Unknown 3-23 (Robert) Kat [id number] milk Unknown Active Unknown Reaction Ernestine Unknown 3-23 (Robert) Kat [id number] prochlorper Base Active Unknown extrapyramidal 2017-07 [place] azine Ingredient symptoms - Dilip venlafaxine Base Active Severe Hives, 2017-07 [place] Ingredient difficulty 08-09 Dilip breathing, itching promethazin Base Active Unknown extrapyramidal 2017-07 [place] e Ingredient symptoms 08-09 Dilip Gadolinium- Allergen [...] Unknown Unknown 160 mcg-4.5 160 mcg-4.5 01-01 Jlil CARRENO mcg/actuati mcg/actuati on HFA on HFA [...]
--- OUTSIDE RECORDS SUMMARY | 2019-10-14 15:31 | XMS REPORT ---
:1975 Author Organization [facility] Care Team Providers Name Role Phone [...] Resolve 2017-072018-08-27 Love pain d 08-16 15:00:00 [place] 10:20: [id number] 00 Respiratory smoker Respirator Resolve 2017-072018-07-23 Love y d 08-16 15:00:00 [place] 10:20: [id number] 00 Endo/Jose anti-coagul Endo/Jose Resolve 2017-072018-06-25 Love ation d 08-16 15:00:00 Carly therapy 10:20: [id number] 00 Nutrition nutritional Nutrition Resolve 2017-072018-07-04 Love restriction d 08-16 15:00:00 [place] s 10:20: [id number] 00 Neuro confusion Neuro/Emot Resolve 2017-072018-08-06 Love present ion d 08-16 15:00:00 [place] 10:20: [id number] 00 Neuro anxiety Neuro/Emot Resolve 2017-072018-08-06 Love present ion d 08-16 15:00:00 [place] 10:20: [id number] 00 Neuro depressive Neuro/Emot Resolve 2017-072018-08-06 Love feelings ion d 08-16 15:00:00 [place] present 10:20: [id number] 00 Safety risk for Safety Resolve 2017-072018-07-04 Love hospitaliza d 08-16 15:00:00 [place] tion 10:20: [id number] 00 Safety fall risk Safety Resolve 2017-072018-07-04 Ericka factor d 08-16 15:00:00 Vivian present 10:20: 00 Musculoskel requires Musculoske Unknown 2017-07 Love etal human letal 08-16 [place] assist to 10:20: [id number] leave home 00 Cardio hypertensio Cardiovasc Resolve [...] d 2-10 15:00:00 [place] deficit Services 14:00: [id number] 00 Social knowledge/s BRISEYDA: Resolve 2017-072018-09-22 [facility] Services kill Social d 2-10 13:00:00 [place] deficit - Services 14:00: [id number] pt 00 Social knowledge/s BRISEYDA: Resolve 2017-072018-09-22 Kezia Services kill Social d 2-10 13:00:00 [place] deficit - Services 14:00: [id number] cg 00 Musculoskel requires Musculoske Unknown 2017-07 [place] etal human letal 2- [place] assist to 15:30: leave home 00 Diagnoses knowledge/s Diagnoses Active 2017-07 Kezia kill 2 [place] deficit: cg 13:00: [id number] 00 Integument skin Integument Resolve 2017-072018-08-06 [place] [...] Active Kezia hospitaliza 2-18 [place] tion 14:00: [id number] 00 Safety can be left Safety Unknown Kezia alone for 2-18 [place] only short 14:00: [id number] periods 00 Pain frequent Pain Mgmt Resolve 2018-09-24 Lam pain d 2-27 15:00:00 [place] 15:50: [id number] 00 Safety can be left Safety Resolve 2018-10-08 Kezia alone for d 3-04 15:00:00 [place] only short 13:00: [id number] periods 00 Cardio edema Cardiovasc Resolve 2018-10-08 [...] ion d 4-08 13:00:00 [place] present 15:45: [id number] 00 Respiratory lung sounds Respirator Resolve 2018-10-29 [place] deficit y d 4-10 13:00:00 [place] 13:00: 00 Infection s/s of Infection Resolve 2019-02-04 [place] infection d 4-17 12:30:00 [place] 13:00: 00 Respiratory smoker Respirator Resolve 2018-11-05 Shelby y d 4-17 13:00:00 [place] 13:00: 00 Neuro depressive Neuro/Emot Resolve 2018-12-10 Lam feelings ion d 420 12:30:00 Br[place] present 12:20: [id number] 00 Respiratory smoker Respirator Resolve 2018-11-20 [place] [...] 08 13:30:00 [place] deficit - Services 13:30: [id number] pt 00 Respiratory lung sounds Respirator Resolve [...] soni n d 12-18 12:30:00 Narendra 12:30: [id number] 00 Respiratory lung sounds Respirator Resolve 2018-12-24 [...] restriction d 01-16 12:30:00 [place] s 15:00: [id number] 00 Safety can be left Safety Resolve 2019-02-18 Kezia alone for d 01-16 12:10:00 [place] only short 15:00: [id number] periods 00 Respiratory smoker Respirator Resolve 2019-01-21 [...] Social 7-12 [place] deficit - Services 14:00: [id number] cg 00 Respiratory lung sounds Respirator Resolve [...] Kezia feelings ion 02-18 [place] present 14:30: [id number] 00 Respiratory lung sounds Respirator Resolve 2019-03-04 [...] d 03-12 12:30:00 [place] only short 15:30: [id number] periods 00 Respiratory smoker Respirator Resolve 2019-03-12 [...] d 0-14 12:45:00 [place] only short 15:00: [id number] periods 00 Musculoskel requires Musculoske Unknown 2018-07 [...] home 00 Respiratory oxygen Respirator Resolve 2018-072019-05-27 [place] treatments y d 1-06 12:25:00 [place] in [...] alone for -12 [place] only short 15:30: [id number] periods 00 Respiratory smoker Respirator Resolve 2018-072019-07-09 [...] Unknown Kezia foot care 08-05 [place] 14:00: [id number] 00 Social financial BRISEYDA: Active Kezia Services resource Social 08-05 [facility] deficit Services 14:00: [id number] 00 Integument skin Integument Active 2019- Love integrity 08-17 [place] risk 10:30: [id number] 00 Elimination urinary Eliminatio Resolve 2019-08-19 Love incontinenc n d 08-17 12:30:00 [place] e 10:30: [id number] 00 Elimination bowel Eliminatio Resolve 2019-09-02 Love incontinenc n d 08-17 12:30:00 [place] e 10:30: [id number] 00 Elimination diarrhea Eliminatio Resolve 2019-09-02 Love n d 08-17 12:30:00 [place] 10:30: [id number] 00 Neuro confusion Neuro/Emot Active 2019-0 Love present ion 08-17 [place] 10:30: [id number] 00 Neuro anxiety Neuro/Emot Active 2019-0 Love present ion 08-17 [place] 10:30: [id number] 00 Neuro impaired Neuro/Emot Active 2019-0 Love decision-ma ion 08-17 [place] wilmer 10:30: [id number] 00 Neuro memory Neuro/Emot Active 2019- Love deficit ion 08-17 [place] needing 10:30: [id number] supervision 00 Activity self-care Activity Active 2019- Love deficit 08-17 [place] 10:30: [id number] 00 Medication oral med Meds Resolve 2019-09-30 Love assistance d 08-17 12:30:00 [place] required 10:30: [id number] 00 Musculoskel transfer Musculoske Active 2019-0 Love etal assistance letal 08-17 [place] required 10:30: [id number] 00 Musculoskel requires Musculoske Unknown Love etal human letal 08-17 [place] assist to 10:30: [id number] leave home 00 Respiratory smoker Respirator Resolve [...] Balance/En d 2- 15:45:00 [place] durance 15:35: [id number] 00 Balance/End knowledge/s PT/OT: Resolve 2019-09-09 Lam guerrero kill Balance/En d 2- 15:45:00 [place] deficit: pt durance 15:35: [id number] 00 Gait/Locomo knowledge/s PT/OT: Resolve 2019-09-09 Lam tion kill Gait/Locom d 2-05 15:45:00 Br[place] problems deficit: pt otion 15:35: [id number] 00 Gait/Locomo knowledge/s PT/OT: Resolve 2019-09-09 Lam tion kill Gait/Locom d 2-05 15:45:00 Briones problems deficit: cg otion 15:35: [id number] 00 Gait/Locomo gait PT/OT: Resolve 2019-09-09 Lam tion deficit Gait/Locom d 2- 15:45:00 Briones problems otion 15:35: [id number] 00 Respiratory oxygen Respirator Resolve 2019-09-02 [place] [...] d 3-06 15:00:00 [place] 15:00: 00 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 PT/OT: Active [place] urance rdination Balance/En [...] Unknown Reaction Ernestine Unknown 10-11 (Rohan Kat [id number] effexor Unknown Active Unknown Reaction Ernestine Unknown 3-23 (Robert) Kat [id number] compazine Unknown Active Unknown Reaction Ernestine Unknown 3-23 (Robert) [place] [id number] adhesive Unknown Active Unknown Reaction Ernestine tape Unknown 3-23 (Robert) Kat [id number] milk Unknown Active Unknown Reaction Ernestine Unknown 3-23 (Robert) Kat [id number] prochlorper Base Active Unknown extrapyramidal 2017-07 [place] azine Ingredient symptoms - Dilip venlafaxine Base Active Severe Hives, 2017-07 [place] Ingredient difficulty 08-09 Dilip breathing, itching promethazin Base Active Unknown extrapyramidal 2017-07 [place] e Ingredient symptoms 08-09 Dilip Gadolinium- Allergen [...]
--- OUTSIDE RECORDS SUMMARY | 2019-10-14 15:31 | XMS REPORT ---
:1975 Author Organization [facility] Care Team Providers Name Role Phone [...] Resolve 2017-072018-08-27 Love pain d 08-16 15:00:00 Maceo 10:20: [id number] 00 Respiratory smoker Respirator Resolve 2017-072018-07-23 Love y d 08-16 15:00:00 Maceo 10:20: [id number] 00 Endo/Jose anti-coagul Endo/Jose Resolve 2017-072018-06-25 Love ation d 08-16 15:00:00 Carly therapy 10:20: [id number] 00 Nutrition nutritional Nutrition Resolve 2017-072018-07-04 Love restriction d 08-16 15:00:00 Maceo s 10:20: [id number] 00 Neuro confusion Neuro/Emot Resolve 2017-072018-08-06 Love present ion d 08-16 15:00:00 Maceo 10:20: [id number] 00 Neuro anxiety Neuro/Emot Resolve 2017-072018-08-06 Love present ion d 08-16 15:00:00 Maceo 10:20: [id number] 00 Neuro depressive Neuro/Emot Resolve 2017-072018-08-06 Love feelings ion d 08-16 15:00:00 Maceo present 10:20: [id number] 00 Safety risk for Safety Resolve 2017-072018-07-04 Love hospitaliza d 08-16 15:00:00 Maceo tion 10:20: [id number] 00 Safety fall risk Safety Resolve 2017-072018-07-04 Ericka factor d 08-16 15:00:00 Vivian present 10:20: 00 Musculoskel requires Musculoske Unknown 2017-07 Love etal human letal 08-16 Maceo assist to 10:20: [id number] leave home 00 Cardio hypertensio Cardiovasc Resolve [...] d 2-10 15:00:00 [place] deficit Services 14:00: [id number] 00 Social knowledge/s BRISEYDA: Resolve 2017-072018-09-22 Kezia Services kill Social d 2-10 13:00:00 [place] deficit - Services 14:00: [id number] pt 00 Social knowledge/s BRISEYDA: Resolve 2017-072018-09-22 Kezia Services kill Social d 2-10 13:00:00 [place] deficit - Services 14:00: [id number] cg 00 Musculoskel requires Musculoske Unknown 2017-07 Shelby etal human letal 2- Vallely assist to 15:30: leave home 00 Diagnoses knowledge/s Diagnoses Active 2017-07 Kezia kill 2 [place] deficit: cg 13:00: [id number] 00 Integument skin Integument Resolve 2017-072018-08-06 Shelby [...] Active Kezia hospitaliza 2-18 [place] tion 14:00: [id number] 00 Safety can be left Safety Unknown Kezia alone for 2-18 [place] only short 14:00: [id number] periods 00 Pain frequent Pain Mgmt Resolve 2018-09-24 Lam pain d 2-27 15:00:00 Briones 15:50: [id number] 00 Safety can be left Safety Resolve 2018-10-08 Kezia alone for d 3-04 15:00:00 [place] only short 13:00: [id number] periods 00 Cardio edema Cardiovasc Resolve 2018-10-08 [...] ion d 4-08 13:00:00 Briones present 15:45: [id number] 00 Respiratory lung sounds Respirator Resolve 2018-10-29 Shelby deficit y d 4-10 13:00:00 Vallely 13:00: 00 Infection s/s of Infection Resolve 2019-02-04 Shelby infection d 4-17 12:30:00 Vallely 13:00: 00 Respiratory smoker Respirator Resolve 2018-11-05 Shelby y d 4-17 13:00:00 Vallely 13:00: 00 Neuro depressive Neuro/Emot Resolve 2018-12-10 Lam feelings ion d 420 12:30:00 Briones present 12:20: [id number] 00 Respiratory smoker Respirator Resolve 2018-11-20 Shelby [...] 08 13:30:00 [place] deficit - Services 13:30: [id number] pt 00 Respiratory lung sounds Respirator Resolve [...] soni n d 12-18 12:30:00 Narendra 12:30: [id number] 00 Respiratory lung sounds Respirator Resolve 2018-12-24 [...] restriction d 01-16 12:30:00 [place] s 15:00: [id number] 00 Safety can be left Safety Resolve 2019-02-18 Kezia alone for d 01-16 12:10:00 [place] only short 15:00: [id number] periods 00 Respiratory smoker Respirator Resolve 2019-01-21 [...] Social 7-12 [place] deficit - Services 14:00: [id number] cg 00 Respiratory lung sounds Respirator Resolve [...] Kezia feelings ion 02-18 [place] present 14:30: [id number] 00 Respiratory lung sounds Respirator Resolve 2019-03-04 [...] d 03-12 12:30:00 [place] only short 15:30: [id number] periods 00 Respiratory smoker Respirator Resolve 2019-03-12 [...] d 0-14 12:45:00 [place] only short 15:00: [id number] periods 00 Musculoskel requires Musculoske Unknown 2018-07 [...] alone for -12 [place] only short 15:30: [id number] periods 00 Respiratory smoker Respirator Resolve 2018-072019-07-09 [...] pneumonia Respirator Resolve 2019-2019-07-28 Shelby y d - 12:30:00 Vallely 12:30: 00 Respiratory smoker Respirator Resolve 2019-07-23 Shelby y d - 12:30:00 Vallely 12:30: 00 Respiratory dyspnea Respirator Resolve 2019-08-19 Shelby present y d 07-28 12:30:00 Vallely 12:30: 00 Respiratory smoker Respirator Resolve 2019-08-05 Shelby y d 07-28 12:30:00 Vallely 12:30: 00 Endo/Jose diabetic Endo/Jose Resolve 2019-08-05 Shelby foot care d - 12:30:00 Vallely 12:30: 00 Nutrition nutritional Nutrition Resolve 2019-07-28 Shelby restriction d - 12:30:00 Vallely s 12:30: 00 Activity self-care Activity Resolve 2019-08-05 Shelby deficit d 07-28 12:30:00 Vallely 12:30: 00 Activity ADL Activity Active Shelby assistance 07-28 Vallely required 12:30: 00 Safety fall risk Safety Active Shelby factor -07 Vallely present 12:30: 00 Medication potential Meds Resolve 2019-07-28 Shelby clinically d - 12:30:00 Vallely significant 12:30: medication 00 issue Neuro depressive Neuro/Emot Active Shelby feelings ion 1-15 Vallely present 12:30: 00 Medication potential Meds Active Shelby clinically -15 Vallely significant 12:30: medication 00 issue Endo/Jose diabetic Endo/Jose Unknown Kezia foot care 08-05 [place] 14:00: [id number] 00 Social financial BRISEYDA: Active Kezia Services resource Social 08-05 [place] deficit Services 14:00: [id number] 00 Integument skin Integument Active 2020-0 Love integrity 08-17 Maceo risk 10:30: [id number] 00 Elimination urinary Eliminatio Resolve 2019-08-19 Love incontinenc n d 08-17 12:30:00 Maceo e 10:30: [id number] 00 Elimination bowel Eliminatio Resolve 2019-09-02 Love incontinenc n d 08-17 12:30:00 Maceo e 10:30: [id number] 00 Elimination diarrhea Eliminatio Resolve 2019-09-02 Love n d 08-17 12:30:00 Maceo 10:30: [id number] 00 Neuro confusion Neuro/Emot Active 2019-0 Love present ion 08-17 Maceo 10:30: [id number] 00 Neuro anxiety Neuro/Emot Active 2019-0 Love present ion 08-17 Maceo 10:30: [id number] 00 Neuro impaired Neuro/Emot Active 2019-0 Love decision-ma ion 08-17 Maceo wilmer 10:30: [id number] 00 Neuro memory Neuro/Emot Active 2019-0 Love deficit ion 08-17 Maceo needing 10:30: [id number] supervision 00 Activity self-care Activity Active 2019-0 Love deficit 08-17 Maceo 10:30: [id number] 00 Medication oral med Meds Active 2019-0 Love assistance 08-17 Maceo required 10:30: [id number] 00 Musculoskel transfer Musculoske Active 2019-0 Love etal assistance letmd 08-17 Maceo required 10:30: [id number] 00 Musculoskel requires Musculoske Unknown 2019-0 Love etal human letal 08-17 Maceo assist to 10:30: [id number] leave home 00 Respiratory smoker Respirator Resolve 2019-08-20 Shelby ma 08-19 16:15:00 Vallely 12:30: 00 Neuro knowledge/s Neuro/Emot Active 2019-0 Shelby kill ion 08-19 Vallely deficit: pt 12:30: 00 Medication knowledge/s Meds Unknown Shelby woodson 08-19 Vallely deficit: cg 12:30: 00 Respiratory oxygen Respirator Resolve 2019-08-26 Shelby treatments y d 1-30 12:30:00 Vallely in home 16:15: 00 Neuro knowledge/s Neuro/Emot Unknown Shelby woodson ion 2- Vallely deficit: pt 12:30: 00 Medication knowledge/s Meds Active Shelby woodson 2- Vallely deficit: cg 12:30: 00 Musculoskel requires Musculoske Active Shelby etal human letal 2- Vallely assist to 12:30: leave home 00 Balance/End endurance PT/OT: Resolve 2019-09-09 Lam urance deficit Balance/En d 2- 15:45:00 Briones durance 15:35: [id number] 00 Balance/End knowledge/s PT/OT: Resolve 2019-09-09 Lam urance kill Balance/En d 2- 15:45:00 Briones deficit: pt durance 15:35: [id number] 00 Gait/Locomo knowledge/s PT/OT: Resolve 2019-09-09 Lam tion kill Gait/Locom d 2-05 15:45:00 Briones problems deficit: pt otion 15:35: [id number] 00 Gait/Locomo knowledge/s PT/OT: Resolve 2019-09-09 Lam tion kill Gait/Locom d 2-05 15:45:00 Briones problems deficit: cg otion 15:35: [id number] 00 Gait/Locomo gait PT/OT: Resolve 2019-09-09 Lam tion deficit Gait/Locom d 2- 15:45:00 Briones problems otion 15:35: [id number] 00 Respiratory oxygen Respirator Resolve 2019-09-02 Shelby [...] smoker Respirator Resolve 2019-2019-09-09 Shelby y d 2 11:00:00 Vallely 11:00: 00 Respiratory oxygen Respirator Resolve 2019-09-16 Shelby treatments y d 2- 12:30:00 Vallely in home 12:30: 00 Respiratory smoker Respirator Resolve 2019-09-16 Shelby y d 2 12:30:00 Vallely 12:30: 00 Respiratory oxygen Respirator Resolve 2019-2019-09-25 Shelby treatments y d 3- 15:00:00 Vallely in home 14:00: 00 Respiratory smoker Respirator Resolve 2019-2019-09-22 Shelby y d 3- 14:00:00 Vallely 14:00: 00 Respiratory dyspnea Respirator Resolve 2019-2019-09-25 Shelby present y d 3- 15:00:00 Vallely 15:00: 00 Respiratory smoker Respirator Resolve 2019-09-25 Shelby y d 3- 15:00:00 Vallely 15:00: 00 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 PT/OT: Active Shelby urance rdination Balance/En 09-24 Vallely deficit durance 15:00: 00 Gait/Locomo gait PT/OT: Active Shelby tion deficit Gait/Locom 06 Vallely problems otion 15:00: 00 Allergies, Adverse Reactions, Alerts Allergy Allergy Status Severity Reaction(s) Onset Inactive Treating Comments Name Type Date Date Clinician phenergan Unknown Active Unknown Reaction Ernestine Unknown 3-23 (Robert) [place] [id number] effexor Unknown Active Unknown Reaction Ernestine Unknown 3-23 (Robert) [place] [id number] compazine Unknown Active Unknown Reaction Ernestine Unknown 3-23 (Robetr) [place] [id number] adhesive Unknown Active Unknown Reaction Ernestine tape Unknown 3-23 (Robert) [place] [id number] milk Unknown Active Unknown Reaction Ernestine Unknown 3-23 (Robert) [place] [id number] prochlorper Base Active Unknown extrapyramidal 2017-07 Ball azine Ingredient symptoms 08-09 Dilip venlafaxine Base Active Severe Hives, 2017-07 Ball Ingredient difficulty 08-09 Dilip breathing, itching promethazin [...] Unknown mg tablet mg tablet 08-16 ,Jill Imodium A-D Imodium A-D No Stevanovic 2mg Unknown 2 mg tablet 2 mg tablet ,Augustoomir dexAMETHaso dexAMETHaso 2017-07- No Liz Unknown Unknown [...] 08-16 Jill CARRENO fentaNYL fentaNYL 2017-07- No Lzi Unknown Unknown 100 mcg/hr 100 mcg/hr 08-22 [...] topical topical powder powder fluconazole fluconazole 2018- Liz Unknown Unknown 100 mg 100 [...] ol 750 mg ol 750 mg 10-23 ,Jill tablet tablet pantoprazol pantoprazol 2019- No Liz Unknown Unknown e 40 mg e 40 mg 10-29 ,Jill tablet,suzan tablet,suzan yed release yed release cetirizine cetirizine 2019- No Liz Unknown Unknown 10 mg 10 mg 10-29 ,Jill tablet tablet ondansetron ondansetron No Liz [...] 11-19 ,Jill tablet tablet nyquil nyquil 2019- No Liz [...] 01-06 ,Jill tablet tablet glyBURIDE glyBURIDE 2018- Liz Unknown Unknown 2.5 [...] mg 04-08 MD,Jill capsule capsule traZODone traZODone 2019- No Lzi Unknown Unknown 100 mg 100 mg 04-15 [...] mg tablet mg tablet MD,Jill celecoxib celecoxib 2020- Yes Liz Unknown Unknown 100 mg 100 mg 07-27 ,Jill capsule capsule Dilaudid 4 Dilaudid 4 2020- Yes Liz Unknown Unknown mg tablet mg tablet 07-27 ,Jill dexAMETHaso dexAMETHaso 2019- Yes Liz Unknown Unknown ne 2 mg ne 2 mg 07-27 ,Jill tablet tablet Xarelto 20 Xarelto 20 2020- Yes Liz Unknown Unknown mg tablet mg tablet 07-27 ,Jill Symbicort Symbicort 2020-0 Yes Liz Unknown Unknown 160 mcg-4.5 160 mcg-4.5 07-27 Jill CARRENO mcg/actuati mcg/actuati on HFA on HFA aerosol aerosol inhaler inhaler DULoxetine DULoxetine 2020- Yes Liz Unknown Unknown 60 mg 60 mg 07-27 ,Jill capsule,del capsule,del ayed ayed release release Klor-Con Klor-Con 2020-0 2020- Yes Liz Unknown Unknown M20 mEq M20 mEq 07-27 ,Jill tablet,exte tablet,exte nded nded release release traZODone traZODone 0 2020- Yes Liz Unknown Unknown 100 mg 100 mg 07-27 ,Jill tablet tablet Klor-Con Klor-Con 2020- Yes Liz Unknown Unknown M20 mEq M20 mEq 08-05 MD,Jill tablet,exte tablet,exte nded nded release release Klor-Con [...] Unknown Unknown mg tablet mg tablet 08-17 ,Jill levETIRAcet levETIRAcet 2020- Yes Liz Unknown Unknown [...] Yes Liz Unknown Unknown tablet tablet 08-19 MD,Jill gabapentin gabapentin 2020- Yes Liz Unknown [...] Unknown am 500 mg am 500 mg 2-05 MD,Jill tablet tablet levETIRAcet levETIRAcet 2019-0 Yes Liz Unknown Unknown am 250 mg am 250 mg 2-05 MD,Jill tablet tablet ALPRAZolam ALPRAZolam 2019- Yes Liz Unknown Unknown 1 mg tablet 1 mg tablet 2-04 MD,Jill oxyCODONE 5 oxyCODONE 5 2020-0 Yes Liz Unknown Unknown mg tablet mg tablet 2-12 MD,Jill oxyCODONE oxyCODONE 2019- Yes Liz Unknown Unknown 10 mg 10 mg 2-12 MD,Jill tablet tablet Soma 250 mg Soma 250 mg 2019-0 2020- Yes Liz Unknown Unknown tablet tablet 2- MD,Jill gabapentin gabapentin Yes Liz Unknown Unknown 600 mg 600 mg 2-14 MD,Jill tablet tablet Klor-Con 10 Klor-Con 10 Yes Liz Unknown Unknown mEq mEq 2-14 MD,Jill tablet,exte tablet,exte nded nded release release mirtazapine mirtazapine Yes Liz Unknown Unknown 30 mg 30 mg 2-12 MD,Jill tablet tablet Soma 250 mg Soma 250 mg 2019-0 Yes Liz Unknown Unknown tablet tablet 2-19 MD,Jill omeprazole omeprazole Yes Liz Unknown Unknown 40 40 3-06 MD,Jill mg-sodium mg-sodium bicarbonate bicarbonate 1.1 gram 1.1 gram capsule capsule glyBURIDE glyBURIDE Yes Liz Unknown Unknown 2.5 mg 2.5 mg 3-11 MD,Jill tablet tablet Vital Signs Vital Name [...]
--- OUTSIDE RECORDS SUMMARY | 2019-10-14 15:32 | XMS REPORT | Continuity of Care Document ---
:1975 External Reference #:[id number] Author Name Darren Agustin MD (transmitted by agent of provider Ijeoma Mtz) Address [address], [place] [address] Care Team Providers Name Role Phone Julian Livingston DO - Interventional Care Team Information Forestry Scientist Pain Medicine Terrance Rose MD - Orthopaedic Care Team Information Forestry Scientist [phone] Surgery Marleni Richardson MD - Internal Care Team Information Forestry Scientist Medicine Problems Active Problems Provider Date Panic [...] Not using) Cyclobenzaprine HCL Patricia Cordero, 5mg DRY CLEANING SUPERVISOR Tablets Glyburide Patricia Cordero, 2.5mg Tablets DRY CLEANING SUPERVISOR Carisoprodol 1 tablet po qid Unknown 250mg Fluconazole one by mouth Unknown 200mg Tablets daily x14 days ( started taking 06/23/18) SM Naproxen Sodium 1 tablet po Patricia Cordero, 220mg twice daily DRY CLEANING SUPERVISOR Tablets Fentanyl apply 1 patch Unknown 100mcg/HR [...] Indications Ordering Provider Date Depomedrol 40MG Yazmin Andino M.D. 01/19/2019 Injection Immunizations Description No Information [...] Information Available Procedures Date Code Description Status 08/15/2019 40623 EKG, Interpretation Only Completed 08/11/2019 28678 EEG Recording Awake & Asleep Completed 08/09/2019 20702 EEG Recording In Coma Or Sleep Only Completed 08/09/2019 20182 ECHO Transthorasic Realtime 2D W Doppler & Color Flow Completed Hosp 07/06/2019 71368 EKG, Interpretation Only Completed 07/02/2019 31665 EKG, Interpretation Only Completed 07/18/2016 [id number] Mammogram Completed 07/24/2011 [id number] Colonoscopy Completed Medical Devices Description No Information Available Encounters Type Date Location Provider Dx Diagnosis Office Visit 08/14/2019 [facility] Christian Msua M.D. E87.6 Hypokalemia 9:51a Office Visit 08/13/2019 [facility] Christian Musa M.D. T40.2x2A Poisoning by oth 9:50a opioids, intentional self-harm, init encntr E87.6 Hypokalemia Office 08/12/2019 [facility] Christian Musa R41.82 Altered mental Visit 9:50a MTex status, unspecified Office 08/11/2019 [facility] Jabier R56.9 Unspecified Visit 7:00a Jennifer Urbina M.D. convulsions G93.2 Benign intracranial hypertension G93.40 Encephalopathy, unspecified 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 of brain Office 08/11/2019 [facility] Christian Musa, R11.12 Projectile Visit 9:49a MTrentonD. vomiting Office 08/10/2019 [facility] J[facility]ier R41.82 Altered mental Visit 7:00a Jennifer Urbina M.D. status, unspecified G93.2 Benign intracranial hypertension 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 of brain Office Visit 08/10/2019 9:49a [facility] Mellissa J96.00 Acute respiratory Stocking, SYSTEMS ADMINISTRATION ANALYST failure, unsp w hypoxia or hypercapnia J18.1 Lobar pneumonia, unspecified organism A41.9 Sepsis, unspecified organism R94.5 Abnormal results of liver function studies G93.9 Disorder of brain, unspecified C50.919 Malignant neoplasm of unsp site of unspecified female breast 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 of brain R41.82 Altered mental status, unspecified Office Visit 08/09/2019 [facility] Darren R41.82 Altered mental 7:00a Jennifer Agustin MD status, unspecified 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 of brain Office Visit 08/09/2019 9:49a [facility] Mellissa J96.00 Acute respiratory Stocking, SYSTEMS ADMINISTRATION ANALYST failure, unsp w hypoxia or hypercapnia J18.1 Lobar pneumonia, unspecified organism A41.9 Sepsis, unspecified organism R94.5 Abnormal results of liver function studies G93.9 Disorder of brain, unspecified C50.919 Malignant neoplasm of unsp site of unspecified female breast 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 of brain Office Visit 08/08/2019 [facility] [place] R41.82 Altered mental 9:48a Assoc,mohit De Leon MD status, Hospitalists unspecified N17.9 Acute kidney failure, unspecified M62.82 Rhabdomyolysis J96.00 Acute respiratory failure, unsp w hypoxia or hypercapnia R79.89 Other specified abnormal findings of blood chemistry E87.2 Acidosis Z86.718 Personal history of other venous thrombosis and embolism Z87.39 Personal history of diseases of the ms sys and conn tiss Office Visit 07/27/2019 7:00a [facility] Jennifer Browne MD R51 Headache 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, 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 Office Visit 07/27/2019 10:46a [facility] Florence Amos J98.11 Atelectasis Infectious [place], DRY CLEANING SUPERVISOR Diseases R51 Headache M54.9 Dorsalgia, unspecified C50.919 Malignant neoplasm of unsp site of unspecified female breast 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 of brain Office Visit 07/26/2019 10:21a [facility]oc,mohit Perkins MD R51 Headache Hospitalists R50.9 Fever, unspecified E72.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, unspecified C50.919 Malignant neoplasm of unsp site of unspecified female breast Office Visit 07/24/2019 [facility] Florence Amos R50.9 Fever, 10:43a For Infectious Kat, DRY CLEANING SUPERVISOR unspecified Diseases J98.11 Atelectasis M54.2 Cervicalgia R51 Headache C50.919 Malignant neoplasm of unsp site of unspecified female breast 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 of brain Office Visit 06/25/2019 10:00a [facility] Vic Collado, G56.21 Lesion of at Wil CARRENO ulnar nerve, right upper limb Assessments Date Code Description Provider 08/15/2019 R94.31 Abnormal electrocardiogram [ECG] Valery Tsang M.D. [EKG] 08/14/2019 E87.6 Hypokalemia Christian Musa M.D. 08/13/2019 G93.40 Encephalopathy, unspecified Wilfredo Thao, N.P. 08/13/2019 T40.2x2A Poisoning by other opioids, Christian Musa M.D. intentional self-harm, initial encounter 08/13/2019 G93.2 Benign intracranial hypertension Wilfredo Thao N.P. 08/13/2019 E87.6 Hypokalemia Christian Musa M.D. 08/13/2019 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 of Wilfredo Thao, N.P. brain 08/12/2019 R56.9 Unspecified convulsions Jabier Urbina M.D. 08/12/2019 R41.82 Altered mental status, unspecified Christian Musa M.D. 08/12/2019 G93.40 Encephalopathy, unspecified Jabier Urbina M.D. 08/12/2019 G93.2 Benign intracranial hypertension Jabier Urbina M.D. 08/12/2019 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 of Jabier Urbina M.D. brain 08/11/2019 R56.9 Unspecified convulsions Darren Agustin MD 08/11/2019 R56.9 Unspecified convulsions Jabier Urbina M.D. 08/11/2019 G93.2 Benign intracranial hypertension Jabier Urbina M.D. 08/11/2019 G93.40 Encephalopathy, unspecified Jabier Urbina M.D. 08/11/2019 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 of Jabier Urbina M.D. brain 08/11/2019 R11.12 Projectile vomiting Christian Musa M.D. 08/10/2019 R41.82 Altered mental status, unspecified Jabier Urbina M.D. 08/10/2019 G93.2 Benign intracranial hypertension Jabier Urbina M.D. 08/10/2019 J96.00 Acute respiratory failure, Mellissa Stocking, SYSTEMS ADMINISTRATION ANALYST unspecified whether with hypoxia or hypercapnia 08/10/2019 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 of Jabier Urbina M.D. brain 08/10/2019 J18.1 Lobar pneumonia, unspecified Mellissa Stocking, SYSTEMS ADMINISTRATION ANALYST organism 08/10/2019 A41.9 Sepsis, unspecified organism Mellissa Stocking, SYSTEMS ADMINISTRATION ANALYST 08/10/2019 R94.5 Abnormal results of liver function Mellissa Stocking, SYSTEMS ADMINISTRATION ANALYST studies 08/10/2019 G93.9 Disorder of brain, unspecified Mellissa Stocking, SYSTEMS ADMINISTRATION ANALYST 08/10/2019 C50.919 Malignant neoplasm of unspecified Mellissa Stocking, SYSTEMS ADMINISTRATION ANALYST site of unspecified female breast 08/10/2019 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 of Mellissa Stocking, SYSTEMS ADMINISTRATION ANALYST brain 08/10/2019 R41.82 Altered mental status, unspecified Mellissa Stocking, SYSTEMS ADMINISTRATION ANALYST 08/09/2019 R41.82 Altered mental status, unspecified Darren Agustin MD 08/09/2019 R06.89 Other abnormalities of breathing Marshal French M.D. 08/09/2019 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 of Darren Agustin MD brain 08/09/2019 J96.00 Acute respiratory failure, Mellissa Stocking, SYSTEMS ADMINISTRATION ANALYST unspecified whether with hypoxia or hypercapnia 08/09/2019 J18.1 Lobar pneumonia, unspecified Mellissa Stocking, SYSTEMS ADMINISTRATION ANALYST organism 08/09/2019 A41.9 Sepsis, unspecified organism Mellissa Stocking, SYSTEMS ADMINISTRATION ANALYST 08/09/2019 R94.5 Abnormal results of liver function Mellissa Stocking, SYSTEMS ADMINISTRATION ANALYST studies 08/09/2019 G93.9 Disorder of brain, unspecified Mellissa Stocking, SYSTEMS ADMINISTRATION ANALYST 08/09/2019 C50.919 Malignant neoplasm of unspecified Mellissa Stocking, SYSTEMS ADMINISTRATION ANALYST site of unspecified female breast 08/09/2019 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 of Mellissa Stocking, SYSTEMS ADMINISTRATION ANALYST brain 08/08/2019 R41.82 Altered mental status, unspecified Bethany De Leon MD 08/08/2019 N17.9 Acute kidney failure, unspecified Bethany De Leon MD 08/08/2019 M62.82 Rhabdomyolysis Bethany De Leon MD 08/08/2019 J96.00 Acute respiratory failure, Bethany De Leon MD unspecified whether with hypoxia or hypercapnia 08/08/2019 R79.89 Other specified abnormal findings of Bethany DeL eon MD blood chemistry 08/08/2019 E87.2 Acidosis Bethany De Leon MD 08/08/2019 Z86.718 Personal history of other venous Bethany De Leon MD thrombosis and embolism 08/08/2019 Z87.39 Personal history of other diseases Bethany De Leon MD of the musculoskeletal system and connective tissue 07/27/2019 R51 Headache Cammy Browne MD 07/27/2019 J98.11 Atelectasis Florence Kat, DRY CLEANING SUPERVISOR 07/27/2019 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, Cammy Browne MD bilateral 07/27/2019 R51 Headache Florence Kat, DRY CLEANING SUPERVISOR 07/27/2019 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 of Cammy Browne MD brain 07/27/2019 M54.9 Dorsalgia, unspecified Florence Kat, DRY CLEANING SUPERVISOR 07/27/2019 C50.919 Malignant neoplasm of unspecified Florence Kat, DRY CLEANING SUPERVISOR site of unspecified female breast 07/27/2019 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 of Florence Kat, DRY CLEANING SUPERVISOR brain 07/26/2019 R51 Headache Rosmery Perkins MD 07/26/2019 R50.9 Fever, unspecified Rosmery Perkins MD 07/26/2019 E72.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, Rosmery Perkins MD unspecified 07/26/2019 C50.919 Malignant neoplasm of unspecified Rosmery Perkins MD site of unspecified female breast 07/24/2019 R50.9 Fever, unspecified Florence Kat, DRY CLEANING SUPERVISOR 07/24/2019 J98.11 Atelectasis Florence Kat, DRY CLEANING SUPERVISOR 07/24/2019 M54.2 Cervicalgia Florence Kat, DRY CLEANING SUPERVISOR 07/24/2019 R51 Headache Florence Kat, DRY CLEANING SUPERVISOR 07/24/2019 C50.919 Malignant neoplasm of unspecified Florence Kat, DRY CLEANING SUPERVISOR site of unspecified female breast 07/24/2019 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 of Florence Kat, DRY CLEANING SUPERVISOR brain 07/06/2019 Z13.6 Encounter for screening for Christian Ramos M.D., FACC, cardiovascular disorders [facility] 07/02/2019 R94.31 Abnormal electrocardiogram [ECG] Rocky Miranda MD, FACC, [EKG] [facility] 06/25/2019 G56.21 Lesion of ulnar nerve, right upper Vic Collado MD limb Plan of Treatment Future Appointment(s):10/30/2019 9:00 am - Raj Bowens NP at [facility] [id number]/14/2019 10:30 am - Earl Franklin MD at [facility] at [id number] - Vic Collado MDG56.21 Lesion of ulnar nerve, right upper limbFollow up:Follow up: with Noemi after EMG Functional Status Description No Information Available Mental Status Description No Information Available Referrals Description No Information Available
--- OUTSIDE RECORDS SUMMARY | 2019-10-14 15:32 | XMS REPORT ---
:1975 Author Organization [facility] Care Team Providers Name Role Phone Unavailable [...] Resolve 2017-072018-08-27 Love pain d 08-16 15:00:00 [place] 10:20: [id number] Respiratory smoker Respirator Resolve 2017-072018-07-23 Love y d 08-16 15:00:00 [place] 10:20: [id number] 00 Endo/Jose anti-coagul Endo/Jose Resolve 2017-072018-06-25 Love ation d 08-16 15:00:00 Carly therapy 10:20: [id number] 00 Nutrition nutritional Nutrition Resolve 2017-072018-07-04 Love restriction d 08-16 15:00:00 [place] s 10:20: [id number] 00 Neuro confusion Neuro/Emot Resolve 2017-072018-08-06 Love present ion d 08-16 15:00:00 [place] 10:20: [id number] 00 Neuro anxiety Neuro/Emot Resolve 2017-072018-08-06 Love present ion d 08-16 15:00:00 [place] 10:20: [id number] 00 Neuro depressive Neuro/Emot Resolve 2017-072018-08-06 Love feelings ion d 08-16 15:00:00 [place] present 10:20: [id number] 00 Safety risk for Safety Resolve 2017-072018-07-04 Love hospitaliza d 08-16 15:00:00 [place] tion 10:20: [id number] 00 Safety fall risk Safety Resolve 2017-072018-07-04 Ericka factor d 08-16 15:00:00 Vivian present 10:20: 00 Musculoskel requires Musculoske Unknown 2017-07 Love etal human letal 08-16 [place] assist to 10:20: [id number] leave home 00 Cardio hypertensio Cardiovasc Resolve [...] d 2-10 15:00:00 [place] deficit Services 14:00: [id number] 00 Social knowledge/s BRISEYDA: Resolve 2017-072018-09-22 [facility] Services kill Social d 2-10 13:00:00 [place] deficit - Services 14:00: [id number] pt 00 Social knowledge/s BRISEYDA: Resolve 2017-072018-09-22 [facility] kill Social d 2-10 13:00:00 [place] deficit - Services 14:00: [id number] cg 00 Musculoskel requires Musculoske Unknown 2017-07 Shelby etal human letal 2- [place] assist to 15:30: leave home 00 Diagnoses knowledge/s Diagnoses Active 2017-07 Kezia kill 2 [place] deficit: cg 13:00: [id number] 00 Integument skin Integument Resolve 2017-072018-08-06 Shelby [...] Active Kezia hospitaliza 2-18 [place] tion 14:00: [id number] 00 Safety can be left Safety Unknown Kezia alone for 2-18 [place] only short 14:00: [id number] periods 00 Pain frequent Pain Mgmt Resolve 2018-09-24 Lam pain d 2-27 15:00:00 Briones 15:50: [id number] 00 Safety can be left Safety Resolve 2018-10-08 Kezia alone for d 3-04 15:00:00 [place] only short 13:00: [id number] periods 00 Cardio edema Cardiovasc Resolve 2018-10-08 [...] ion d 4-08 13:00:00 Briones present 15:45: [id number] 00 Respiratory lung sounds Respirator Resolve 2018-10-29 Shelby deficit y d 4-10 13:00:00 [place] 13:00: 00 Infection s/s of Infection Resolve 2019-02-04 Shelby infection d 4-17 12:30:00 [place] 13:00: 00 Respiratory smoker Respirator Resolve 2018-11-05 Shelby y d 4-17 13:00:00 [place] 13:00: 00 Neuro depressive Neuro/Emot Resolve 2018-12-10 Lam feelings ion d 420 12:30:00 Briones present 12:20: [id number] 00 Respiratory smoker Respirator Resolve 2018-11-20 Shelby [...] 08 13:30:00 [place] deficit - Services 13:30: [id number] pt 00 Respiratory lung sounds Respirator Resolve [...] soni n d 12-18 12:30:00 Narendra 12:30: [id number] 00 Respiratory lung sounds Respirator Resolve 2018-12-24 [...] restriction d 01-16 12:30:00 [place] s 15:00: [id number] 00 Safety can be left Safety Resolve 2019-02-18 Kezia alone for d 01-16 12:10:00 [place] only short 15:00: [id number] periods 00 Respiratory smoker Respirator Resolve 2019-01-21 [...] Social 7-12 [place] deficit - Services 14:00: [id number] cg 00 Respiratory lung sounds Respirator Resolve [...] Kezia feelings ion 02-18 [place] present 14:30: [id number] 00 Respiratory lung sounds Respirator Resolve 2019-03-04 [...] d 03-12 12:30:00 [place] only short 15:30: [id number] periods 00 Respiratory smoker Respirator Resolve 2019-03-12 [...] 12:30: 00 Respiratory oxygen Respirator Resolve 2019-03-25 [place] treatments y d 9 12:30:00 [place] in [...] d 0-14 12:45:00 [place] only short 15:00: [id number] periods 00 Musculoskel requires Musculoske Unknown 2018-07 [...] alone for -12 [place] only short 15:30: [id number] periods 00 Respiratory smoker Respirator Resolve 2018-072019-07-09 [...] 12:30: 00 Respiratory dyspnea Respirator Resolve 2019-08-19 [place] present y d 07-28 12:30:00 [place] 12:30: [...] Unknown Kezia foot care 08-05 [place] 14:00: [id number] 00 Social financial BRISEYDA: Active [facility] Services resource Social 08-05 [place] deficit Services 14:00: [id number] 00 Integument skin Integument Active 2020-0 Love integrity 08-17 [place] risk 10:30: [id number] 00 Elimination urinary Eliminatio Resolve 2019-08-19 Love incontinenc n d 08-17 12:30:00 [place] e 10:30: [id number] 00 Elimination bowel Eliminatio Resolve 2019-09-02 Love incontinenc n d 08-17 12:30:00 [place] e 10:30: [id number] 00 Elimination diarrhea Eliminatio Resolve 2019-09-02 Love n d 08-17 12:30:00 [place] 10:30: [id number] 00 Neuro confusion Neuro/Emot Active 2019-0 Love present ion 08-17 [place] 10:30: [id number] 00 Neuro anxiety Neuro/Emot Active 2019-0 Love present ion 08-17 [place] 10:30: [id number] 00 Neuro impaired Neuro/Emot Active 2019-0 Love decision-ma ion 08-17 [place] wilmer 10:30: [id number] 00 Neuro memory Neuro/Emot Active 2019-0 Love deficit ion 08-17 [place] needing 10:30: [id number] supervision 00 Activity self-care Activity Active 2019-0 Love deficit 08-17 [place] 10:30: [id number] 00 Medication oral med Meds Active 2019-0 Love assistance 08-17 [place] required 10:30: [id number] 00 Musculoskel transfer Musculoske Active 2019-0 Love etal assistance letky 08-17 [place] required 10:30: [id number] 00 Musculoskel requires Musculoske Unknown 2019-0 Love etal human letal 08-17 [place] assist to 10:30: [id number] leave home 00 Respiratory smoker Respirator Resolve [...] Balance/En d 2- 15:45:00 [place] durance 15:35: [id number] 00 Balance/End knowledge/s PT/OT: Resolve 2019-09-09 Lam urance kill Balance/En d 2- 15:45:00 [place] deficit: pt durance 15:35: [id number] 00 Gait/Locomo knowledge/s PT/OT: Resolve 2019-09-09 Lam tion kill Gait/Locom d 2-05 15:45:00 [place] problems deficit: pt otion 15:35: [id number] 00 Gait/Locomo knowledge/s PT/OT: Resolve 2019-09-09 Lam tion kill Gait/Locom d 2-05 15:45:00 [place] problems deficit: cg otion 15:35: [id number] 00 Gait/Locomo gait PT/OT: Resolve 2019-09-09 Lam tion deficit Gait/Locom d 2- 15:45:00 [place] problems otion 15:35: [id number] 00 Respiratory oxygen Respirator Resolve 2019-09-02 Shelby [...] d 3- 15:00:00 [place] 15:00: 00 Balance/End balance/cdl program coordinator PT/OT: Active Shelby urance rdination Balance/En 09-24 [place] deficit durance 15:00: 00 Gait/Locomo gait PT/OT: Active Shelby tion deficit Gait/Locom 06 [place] problems otion 15:00: 00 Allergies, Adverse Reactions, Alerts Allergy Allergy Status Severity Reaction(s) Onset Inactive Treating Comments Name Type Date Date Clinician phenergan Unknown Active Unknown Reaction Ernestine Unknown 3-23 (Robert) [place] [id number] effexor Unknown Active Unknown Reaction Ernestine Unknown 3-23 (Robert) North [id number] compazine Unknown Active Unknown Reaction Ernestine Unknown 3-23 (Robert) [place] [id number] adhesive Unknown Active Unknown Reaction Ernestine tape Unknown 3-23 (Robert) [place] [id number] milk Unknown Active Unknown Reaction Ernestine Unknown 3-23 (Robert) North [id number] prochlorper Base Active Unknown extrapyramidal 2017-07 Anthon azine Ingredient symptoms 08-09 Dilip venlafaxine Base Active Severe Hives, 2017-07 Anthon Ingredient difficulty 08-09 Dilip breathing, itching promethazin [...] n 750 mg n 750 mg 08-05 ,Jlil tablet tablet Triple Triple 2019- Schwed Unknown [...] MD,Jill capsule capsule traZODone traZODone 2019- No Liz [...] nded release release traZODone traZODone 0 Yes Lzi Unknown Unknown 100 mg 100 mg 08-17 [...] mg 2-05 MD,Jill tablet tablet levETIRAcet levETIRAcet 2020-0 Yes Liz Unknown Unknown am 250 mg am 250 mg 2-05 MD,Jill tablet tablet ALPRAZolam ALPRAZolam 2019-0 Yes Liz Unknown Unknown 1 mg tablet 1 mg tablet 2-04 MD,Jill oxyCODONE 5 oxyCODONE 5 2020-0 Yes Liz Unknown Unknown mg tablet mg tablet 2-12 MD,Jill oxyCODONE oxyCODONE 2020-0 Yes Liz Unknown Unknown 10 mg 10 mg 2-12 MD,Jill tablet tablet Soma 250 mg Soma 250 mg 2020-0 2020- Yes Liz Unknown Unknown tablet tablet 2- MD,Jill gabapentin gabapentin 2019-0 Yes Liz Unknown Unknown 600 mg 600 mg 2-14 MD,Jill tablet tablet Klor-Con 10 Klor-Con 10 2020-0 Yes Liz Unknown Unknown mEq mEq 2-14 MD,Jill tablet,exte tablet,exte nded nded release release mirtazapine mirtazapine 2020-0 Yes Liz Unknown Unknown 30 mg 30 mg 2-12 MD,Jill tablet tablet Soma 250 mg Soma 250 mg 2020-0 Yes Liz Unknown Unknown tablet tablet - MD,Jill omeprazole omeprazole 2019-0 Yes Liz Unknown Unknown 40 40 3-06 MD,Jill mg-sodium mg-sodium bicarbonate bicarbonate 1.1 gram 1.1 gram capsule capsule Vital Signs Vital Name Observation Time Observation Value Comments SYSTOLIC mm[Hg] 2019-08-17 18:10:05 120 mm[Hg] mm[Hg] Method: Stand SYSTOLIC mm[Hg] 2019-09-26 18:10:45 118 mm[Hg] mm[Hg] Method: Lie DIASTOLIC mm[Hg] 2019-08-17 18:10:05 80 mm[Hg] mm[Hg] Method: Stand DIASTOLIC mm[Hg] 2019-09-26 18:10:45 64 mm[Hg] mm[Hg] Method: Lie PULSE 2019-09-26 18:10:45 112 /min /min RESP RATE 2019-09-26 18:10:45 16 /min /min TEMP 2019-09-26 18:10:45 97.4 [degF] Procedures This patient has no known procedures. Results This patient has no known results.
--- OUTSIDE RECORDS SUMMARY | 2019-10-14 15:32 | XMS REPORT | Continuity of Care Document ---
:1975 External Reference #:[id number] Author Name Jabier Urbina M.D. (transmitted by agent of provider Ijeoma Mzt) Address [address] [facility], [place] [address] Care Team Providers Name Role Phone Julian Livingston DO - Interventional Care Team Information Proposal Coordinator Pain Medicine Terrance Rose MD - Orthopaedic Care Team Information Proposal Coordinator Surgery Marleni Richardson MD - Internal Care Team Information Proposal Coordinator [phone] Medicine Problems Active Problems Provider Date Panic [...] Maine Herman MD Onset: 12/13/2017 Asthma Maine eHrman MD Onset: 12/13/2017 Syncope and collapse Zeynep [...] Provider Colace 2 tab in am and 90capmarkie Prieto 08/25/2018 100mg Capsules 2 tab in pm Sharifa French Spiriva Respimat inhale two puffs 12units Maine Herman, 12/17/2017 by mouth every MD 1.25mcg/Act Aerosol day ( Not using) Cyclobenzaprine HCL Patricia Cordero, 5mg COMMUNITY RELATIONS REPRESENTATIVE Tablets Glyburide Patricia Cordero, 2.5mg Tablets COMMUNITY RELATIONS REPRESENTATIVE Carisoprodol 1 tablet po qid Unknown 250mg Fluconazole one by mouth Unknown 200mg Tablets daily x14 days ( started taking 06/23/18) SM Naproxen Sodium 1 tablet po Patricia Cordero, 220mg twice daily COMMUNITY RELATIONS REPRESENTATIVE Tablets Fentanyl apply 1 patch Unknown 100mcg/HR [...] Available Procedures Date Code Description Status 08/15/2019 82390 EKG, Interpretation Only Completed 08/11/2019 02435 EEG Recording Awake & Asleep Completed 08/09/2019 24996 EEG Recording In Coma Or Sleep Only Completed 08/09/2019 79733 ECHO Transthorasic Realtime 2D W Doppler & Color Flow Completed Hosp 07/06/2019 63833 EKG, Interpretation Only Completed 07/02/2019 56427 EKG, Interpretation Only Completed 07/18/2016 57653145 Mammogram Completed 07/24/2011 [id number] Colonoscopy Completed Medical Devices Description No Information Available Encounters Type Date Location Provider Dx Diagnosis Office Visit 08/14/2019 [facility] Christian Musa M.D. E87.6 Hypokalemia 9:51a Office Visit 08/13/2019 [facility] Christian Musa M.D. T40.2x2A Poisoning by oth 9:50a opioids, intentional self-harm, init encntr E87.6 Hypokalemia Office 08/12/2019 [facility] R56.9 Unspecified Visit 7:00a Jennifer Urbina M.D. convulsions G93.40 Encephalopathy, unspecified G93.2 Benign intracranial hypertension 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 of brain Office 08/12/2019 [facility] Christian Musa, R41.82 Altered mental Visit 9:50a M.D. status, unspecified Office 08/11/2019 [facility] R56.9 [...] 9:49a [facility] Mellissa J96.00 Acute respiratory Stocking, [employer] failure, unsp w hypoxia or hypercapnia J18.1 [...] 9:49a [facility] Mellissa J96.00 Acute respiratory Stocking, [employer] failure, unsp w hypoxia or hypercapnia J18.1 Lobar pneumonia, unspecified organism A41.9 Sepsis, unspecified organism R94.5 Abnormal results of liver function studies G93.9 Disorder of brain, unspecified C50.919 Malignant neoplasm of unsp site of unspecified female breast 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 of brain Office Visit 08/08/2019 [facility] R41.82 Altered mental 9:48a Assoc,pc MD Haley status, Hospitalists unspecified N17.9 Acute kidney failure, [...] neoplasm of brain Office Visit 07/27/2019 10:46a [facility] Florence Amos J98.11 Atelectasis Infectious Kat, COMMUNITY RELATIONS REPRESENTATIVE Diseases R51 Headache M54.9 Dorsalgia, unspecified C50.919 Malignant neoplasm of unsp site of unspecified female breast 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 of brain Office Visit 07/26/2019 10:21a [facility] Assoc,pc Rosmery Perkins MD R51 Headache Hospitalists R50.9 Fever, unspecified E72.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, unspecified C50.919 Malignant neoplasm of unsp site of unspecified female breast Office Visit 07/24/2019 [facility] Florence Amos R50.9 Fever, 10:43a For Infectious Kat, COMMUNITY RELATIONS REPRESENTATIVE unspecified Diseases J98.11 Atelectasis M54.2 Cervicalgia R51 Headache C50.919 Malignant neoplasm of unsp site of unspecified female breast 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 of brain Office Visit 06/25/2019 10:00a [facility] Vic Collado, G56.21 Lesion of at [place] ulnar nerve, right upper limb Assessments Date Code Description Provider 08/15/2019 R94.31 Abnormal electrocardiogram [ECG] Valery Tsang M.D. [EKG] 08/14/2019 E87.6 Hypokalemia Christian Musa M.D. 08/13/2019 G93.40 Encephalopathy, unspecified Wilfredo Thao, N.P. 08/13/2019 T40.2x2A Poisoning by other opioids, Christian Musa M.D. intentional self-harm, initial encounter 08/13/2019 G93.2 Benign intracranial hypertension Wilfredo Thao, N.P. 08/13/2019 E87.6 Hypokalemia Christian Musa M.D. [...] 08/10/2019 J96.00 Acute respiratory failure, Mellissa Stocking, [employer] unspecified whether with hypoxia or hypercapnia 08/10/2019 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 of Jabier Urbina M.D. brain 08/10/2019 J18.1 Lobar pneumonia, unspecified Mellissa Stocking, [employer] organism 08/10/2019 A41.9 Sepsis, unspecified organism Mellissa Stocking, [employer] 08/10/2019 R94.5 Abnormal results of liver function Mellissa Stocking, [employer] studies 08/10/2019 G93.9 Disorder of brain, unspecified Mellissa Stocking, [employer] 08/10/2019 C50.919 Malignant neoplasm of unspecified Mellissa Stocking, [employer] site of unspecified female breast 08/10/2019 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 of Mellissa Stocking, [employer] brain 08/10/2019 R41.82 Altered mental status, unspecified Mellissa Stocking, [employer] 08/09/2019 R41.82 Altered mental status, unspecified Darren Agustin MD 08/09/2019 R06.89 Other abnormalities of breathing Marshal French M.D. 08/09/2019 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 of Darren Agustin MD brain 08/09/2019 J96.00 Acute respiratory failure, Mellissa Stocking, [employer] unspecified whether with hypoxia or hypercapnia 08/09/2019 J18.1 Lobar pneumonia, unspecified Mellissa Stocking, [employer] organism 08/09/2019 A41.9 Sepsis, unspecified organism Mellissa Stocking, [employer] 08/09/2019 R94.5 Abnormal results of liver function Mellissa Stocking, [employer] studies 08/09/2019 G93.9 Disorder of brain, unspecified Mellissa Stocking, [employer] 08/09/2019 C50.919 Malignant neoplasm of unspecified Mellissa Stocking, [employer] site of unspecified female breast 08/09/2019 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 of Mellissa Stocking, [employer] brain 08/08/2019 R41.82 Altered mental status, unspecified Bethany De Leon MD 08/08/2019 N17.9 Acute kidney failure, unspecified Bethany De Leon MD 08/08/2019 M62.82 Rhabdomyolysis Bethany De Leon MD 08/08/2019 J96.00 Acute respiratory failure, Bethany De Leon MD unspecified whether with hypoxia or hypercapnia 08/08/2019 R79.89 Other specified abnormal findings of Bethany De Leon MD blood chemistry 08/08/2019 E87.2 Acidosis Bethany De Leon MD 08/08/2019 Z86.718 Personal history of other venous Bethany De Leon MD thrombosis and embolism 08/08/2019 Z87.39 Personal history of other diseases Bethany De Leon MD of the musculoskeletal system and connective tissue 07/27/2019 R51 Headache Cammy Browne MD 07/27/2019 J98.11 Atelectasis Florence Kat, COMMUNITY RELATIONS REPRESENTATIVE 07/27/2019 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, Cammy Browne MD bilateral 07/27/2019 R51 Headache Florence Kat, COMMUNITY RELATIONS REPRESENTATIVE 07/27/2019 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 of Cammy Borwne MD brain 07/27/2019 M54.9 Dorsalgia, unspecified Florence Kat, COMMUNITY RELATIONS REPRESENTATIVE 07/27/2019 C50.919 Malignant neoplasm of unspecified Florence Kat, COMMUNITY RELATIONS REPRESENTATIVE site of unspecified female breast 07/27/2019 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 of [place] Kat, COMMUNITY RELATIONS REPRESENTATIVE brain 07/26/2019 R51 Headache Rosmery Perkins MD 07/26/2019 R50.9 Fever, unspecified Rosmery Perkins MD 07/26/2019 E72.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, Rosmery Perkins MD unspecified 07/26/2019 C50.919 Malignant neoplasm of unspecified Rosmery Perkins MD site of unspecified female breast 07/24/2019 R50.9 Fever, unspecified Florence Kat, COMMUNITY RELATIONS REPRESENTATIVE 07/24/2019 J98.11 Atelectasis [place] Kat, COMMUNITY RELATIONS REPRESENTATIVE 07/24/2019 M54.2 Cervicalgia [place] Kat, COMMUNITY RELATIONS REPRESENTATIVE 07/24/2019 R51 Headache [place] Kat, COMMUNITY RELATIONS REPRESENTATIVE 07/24/2019 C50.919 Malignant neoplasm of unspecified [place] Kat, COMMUNITY RELATIONS REPRESENTATIVE site of unspecified female breast 07/24/2019 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 of [place] Kat, COMMUNITY RELATIONS REPRESENTATIVE brain 07/06/2019 Z13.6 Encounter for screening for Christian Ramos M.D., FACC, cardiovascular disorders [facility] 07/02/2019 R94.31 Abnormal electrocardiogram [ECG] Rocky Miranda MD, FACC, [EKG] [facility] 06/25/2019 G56.21 Lesion of ulnar nerve, right upper Vic Collado MD limb Plan of Treatment Future Appointment(s):10/30/2019 9:00 am - Raj Bowens NP at [facility] Rlbdum3910/14/2019 10:30 am - Earl Franklin MD at [facility] at [email or web address] - Vic Collado MDG56.21 Lesion of ulnar nerve, right upper limbFollow up:Follow up: with Noemi after EMG Functional Status Description No Information Available Mental Status Description No Information Available Referrals Description No Information Available
--- OUTSIDE RECORDS SUMMARY | 2019-10-14 15:32 | XMS REPORT | Continuity of Care Document ---
:1975 External Reference #:[id number] Author Name Darren Agustin MD (transmitted by agent of provider Ijeoma Mtz) Address [address], [place] [address] Care Team Providers Name Role Phone Julian Livingston DO - Interventional Care Team Information Senior Loan Officer Pain Medicine Terrance Rose MD - Orthopaedic Care Team Information Senior Loan Officer [phone] Surgery Marleni Richardson MD - Internal Care Team Information Senior Loan Officer Medicine Problems Active Problems Provider Date Panic [...] Not using) Cyclobenzaprine HCL Patricia Cordero, 5mg PEANUT BLANCHER Tablets Glyburide Patricia Cordero, 2.5mg Tablets PEANUT BLANCHER Carisoprodol 1 tablet po qid Unknown 250mg Fluconazole one by mouth Unknown 200mg Tablets daily x14 days ( started taking 06/23/18) SM Naproxen Sodium 1 tablet po Patricia Cordero, 220mg twice daily PEANUT BLANCHER Tablets Fentanyl apply 1 patch Unknown 100mcg/HR [...] Available Procedures Date Code Description Status 08/15/2019 69160 EKG, Interpretation Only Completed 08/11/2019 07482 EEG Recording Awake & Asleep Completed 08/09/2019 14834 EEG Recording In Coma Or Sleep Only Completed 08/09/2019 04679 ECHO Transthorasic Realtime 2D W Doppler & Color Flow Completed Hosp 07/06/2019 22216 EKG, Interpretation Only Completed 07/02/2019 96828 EKG, Interpretation Only Completed 07/18/2016 [id number] Mammogram Completed 07/24/2011 [id number] Colonoscopy Completed Medical Devices Description No Information Available Encounters Type Date Location Provider Dx Diagnosis Office Visit 08/14/2019 [facility] Musa M.D. E87.6 Hypokalemia 9:51a Office Visit 08/13/2019 [facility] Christian Musa M.D. T40.2x2A Poisoning by oth 9:50a opioids, intentional self-harm, init encntr E87.6 Hypokalemia Office 08/12/2019 [facility] Christian Musa R41.82 Altered mental Visit 9:50a M.DTrenton status, unspecified Office 08/11/2019 [facility] Christian Musa, R11.12 Projectile Visit 9:49a MCrow. vomiting Office 08/10/2019 [facility] R41.82 Altered mental Visit 7:00a Jennifer Urbina M.D. status, unspecified G93.2 Benign intracranial hypertension 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 of brain Office Visit 08/10/2019 9:49a [facility] Mellissa J96.00 Acute respiratory Stocking, MANAGER ASSESSMENT failure, unsp w hypoxia or hypercapnia J18.1 Lobar pneumonia, unspecified organism A41.9 Sepsis, unspecified organism R94.5 Abnormal results of liver function studies G93.9 Disorder of brain, unspecified C50.919 Malignant neoplasm of unsp site of unspecified female breast 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 of brain R41.82 Altered mental status, unspecified Office Visit 08/09/2019 [facility] Darren R41.82 Altered mental 7:00a Clinic MD Vamsi status, unspecified 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 of brain Office Visit 08/09/2019 9:49a [facility] Mellissa J96.00 Acute respiratory Stocking, MANAGER ASSESSMENT failure, unsp w hypoxia or hypercapnia J18.1 Lobar pneumonia, unspecified organism A41.9 Sepsis, unspecified organism R94.5 Abnormal results of liver function studies G93.9 Disorder of brain, unspecified C50.919 Malignant neoplasm of unsp site of unspecified female breast 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 of brain Office Visit 08/08/2019 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 Office Visit 07/27/2019 10:46a [facility] Florence Amos J98.11 Atelectasis Infectious [place] PEANUT BLANCHER Diseases R51 Headache M54.9 Dorsalgia, unspecified C50.919 Malignant neoplasm of unsp site of unspecified female breast 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 of brain [facility] R51 Headache Hospitalists R50.9 Fever, unspecified E72.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, unspecified C50.919 Malignant neoplasm of unsp site of unspecified female breast Office Visit 07/24/2019 [facility] Florence Amos R50.9 Fever, 10:43a For Infectious [place] PEANUT BLANCHER unspecified Diseases J98.11 Atelectasis M54.2 Cervicalgia R51 Headache C50.919 Malignant neoplasm of unsp site of unspecified female breast 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 of brain Office Visit 06/25/2019 10:00a [facility] Vic Collado, G56.21 Lesion of at [place] ulnar nerve, right upper limb Assessments Date [...] 08/10/2019 J96.00 Acute respiratory failure, Mellissa Stocking, MANAGER ASSESSMENT unspecified whether with hypoxia or hypercapnia 08/10/2019 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 of Jabier Urbina M.D. brain 08/10/2019 J18.1 Lobar pneumonia, unspecified Mellissa Stocking, MANAGER ASSESSMENT organism 08/10/2019 A41.9 Sepsis, unspecified organism Mellissa Stocking, MANAGER ASSESSMENT 08/10/2019 R94.5 Abnormal results of liver function Mellissa Stocking, MANAGER ASSESSMENT studies 08/10/2019 G93.9 Disorder of brain, unspecified Mellissa Stocking, MANAGER ASSESSMENT 08/10/2019 C50.919 Malignant neoplasm of unspecified Mellissa Stocking, MANAGER ASSESSMENT site of unspecified female breast 08/10/2019 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 of Mellissa Stocking, MANAGER ASSESSMENT brain 08/10/2019 R41.82 Altered mental status, unspecified Mellissa Stocking, MANAGER ASSESSMENT 08/09/2019 R41.82 Altered mental status, unspecified Darren Agustin MD 08/09/2019 R06.89 Other abnormalities of breathing Marshal French M.D. 08/09/2019 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 of Darren Agustin MD brain 08/09/2019 J96.00 Acute respiratory failure, Mellissa Stocking, MANAGER ASSESSMENT unspecified whether with hypoxia or hypercapnia 08/09/2019 J18.1 Lobar pneumonia, unspecified Mellissa Stocking, MANAGER ASSESSMENT organism 08/09/2019 A41.9 Sepsis, unspecified organism Mellissa Stocking, MANAGER ASSESSMENT 08/09/2019 R94.5 Abnormal results of liver function Mellissa Stocking, MANAGER ASSESSMENT studies 08/09/2019 G93.9 Disorder of brain, unspecified Mellissa Stocking, MANAGER ASSESSMENT 08/09/2019 C50.919 Malignant neoplasm of unspecified Mellissa Stocking, MANAGER ASSESSMENT site of unspecified female breast 08/09/2019 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 of Mellissa Stocking, MANAGER ASSESSMENT brain 08/08/2019 R41.82 Altered mental status, unspecified Bethany eD Leon MD 08/08/2019 N17.9 Acute kidney failure, [...] Browne MD 07/27/2019 J98.11 Atelectasis [place] Kat, PEANUT BLANCHER 07/27/2019 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, Cammy Browne MD bilateral 07/27/2019 R51 Headache [place] Kat, PEANUT BLANCHER 07/27/2019 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 of Cammy Browne MD brain 07/27/2019 M54.9 Dorsalgia, unspecified Florence Kat, PEANUT BLANCHER 07/27/2019 C50.919 Malignant neoplasm of unspecified [place] Kat, PEANUT BLANCHER site of unspecified female breast 07/27/2019 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 of [place] Kat, PEANUT BLANCHER brain 07/26/2019 R51 Headache Rosmery Perkins MD 07/26/2019 R50.9 Fever, unspecified Rosmery Perkins MD 07/26/2019 E72.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, Rosmery Perkins MD unspecified 07/26/2019 C50.919 Malignant neoplasm of unspecified Rosmery Perkins MD site of unspecified female breast 07/24/2019 R50.9 Fever, unspecified Florence Kat, PEANUT BLANCHER 07/24/2019 J98.11 Atelectasis [place] Kat, PEANUT BLANCHER 07/24/2019 M54.2 Cervicalgia [place] Kat, PEANUT BLANCHER 07/24/2019 R51 Headache [place] Kat, PEANUT BLANCHER 07/24/2019 C50.919 Malignant neoplasm of unspecified [place] Kat, PEANUT BLANCHER site of unspecified female breast 07/24/2019 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 of Florence Amos [place]EN[place] Kat brain 07/06/2019 Z13.6 Encounter for screening for Christian Ramos M.D., FAC, cardiovascular disorders [facility] 07/02/2019 R94.31 Abnormal electrocardiogram [ECG] Rocky Miranda MD, FACC, [EKG] [facility] 06/25/2019 G56.21 Lesion of ulnar nerve, right upper Vic Collado MD limb Plan of Treatment Future Appointment(s):10/30/2019 9:00 am - Raj Bowens NP at [facility] Utigsv2110/14/2019 10:30 am - Earl Franklin MD at [facility] at [email or web address] - Vic Collado MDG56.21 Lesion of ulnar nerve, right upper limbFollow up:Follow up: with Noemi after EMG Functional Status Description No Information Available Mental Status Description No Information Available Referrals Description No Information Available
--- OUTSIDE RECORDS SUMMARY | 2019-10-14 15:32 | XMS REPORT | Continuity of Care Document ---
:1975 External Reference #:[id number] Author Name Wilfredo Thao N.P. (transmitted by agent of provider Ijemoa Mtz) Address [address] [facility] [facility], [place] [address] Care Team Providers Name Role Phone Julian Livingston DO - Interventional Care Team Information Aerial Sprayer [phone] Pain Medicine Terrance Rose MD - Orthopaedic Care Team Information Aerial Sprayer Surgery Marleni Richardson MD - Internal Care Team Information Aerial Sprayer [phone] Medicine Problems Active Problems Provider Date Panic [...] Not using) Cyclobenzaprine HCL Patricia Cordero, 5mg RESEARCH & ANALYTICS MANAGER Tablets Glyburide Patricia Cordero, 2.5mg Tablets RESEARCH & ANALYTICS MANAGER Carisoprodol 1 tablet po qid Unknown 250mg Fluconazole one by mouth Unknown 200mg Tablets daily x14 days ( started taking 06/23/18) SM Naproxen Sodium 1 tablet po Patricia Cordero, 220mg twice daily RESEARCH & ANALYTICS MANAGER Tablets Fentanyl apply 1 patch Unknown 100mcg/HR [...] Available Procedures Date Code Description Status 08/15/2019 83309 EKG, Interpretation Only Completed 08/11/2019 40386 EEG Recording Awake & Asleep Completed 08/09/2019 32478 EEG Recording In Coma Or Sleep Only Completed 08/09/2019 60293 ECHO Transthorasic Realtime 2D W Doppler & Color Flow Completed Hosp 07/06/2019 78776 EKG, Interpretation Only Completed 07/02/2019 33006 EKG, Interpretation Only Completed 07/18/2016 [id number] Mammogram Completed 07/24/2011 [id number] Colonoscopy Completed Medical Devices Description No Information Available Encounters Type Date Location Provider Dx Diagnosis Office Visit 08/14/2019 [facility] Christian Musa, E87.6 Hypokalemia 9:51a M.D. Office Visit 08/13/2019 [facility] Jennifer Villalobos G93.40 Encephalopathy, 7:00a Master N.Tish unspecified G93.2 Benign intracranial hypertension 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 of brain Office Visit 08/13/2019 9:50a [facility] Christian Musa, T40.2x2A Poisoning by oth MTex opioids, intentional self-harm, init encntr E87.6 Hypokalemia Office 08/12/2019 [facility] Jabier R56.9 Unspecified Visit 7:00a Jennifer Urbina M.D. convulsions G93.40 Encephalopathy, unspecified G93.2 Benign intracranial hypertension 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 of brain Office 08/12/2019 [facility] Christian Musa, R41.82 Altered mental Visit 9:50a M.D. status, unspecified Office 08/11/2019 [facility] Christian Musa R11.12 Projectile Visit 9:49a M.D. vomiting Office 08/11/2019 [facility]ier R56.9 Unspecified Visit 7:00a Jennifer Urbina M.D. convulsions G93.2 Benign intracranial hypertension G93.40 Encephalopathy, unspecified 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 of brain Office 08/10/2019 [facility] R41.82 Altered mental Visit 7:00a Jennifer Urbina M.D. status, unspecified G93.2 Benign intracranial hypertension 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 of brain Office Visit 08/10/2019 9:49a [facility] Mellissa J96.00 Acute respiratory Stocking, HAND CLERICAL VERIFIER failure, unsp w hypoxia or hypercapnia J18.1 [...] 9:49a [facility] Mellissa J96.00 Acute respiratory Stocking, HAND CLERICAL VERIFIER failure, unsp w hypoxia or hypercapnia J18.1 Lobar pneumonia, unspecified organism A41.9 Sepsis, unspecified organism R94.5 Abnormal results of liver function studies G93.9 Disorder of brain, unspecified C50.919 Malignant neoplasm of unsp site of unspecified female breast 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 of brain Office Visit 08/08/2019 [facility] R41.82 Altered mental 9:48a Assocmohit MD status, Hospitalists unspecified N17.9 Acute kidney [...] neoplasm of brain Office Visit 07/27/2019 10:46a [facility] J98.11 Atelectasis Infectious Kat, RESEARCH & ANALYTICS MANAGER Diseases R51 Headache M54.9 Dorsalgia, unspecified C50.919 Malignant neoplasm of unsp site of unspecified female breast 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 of brain Office Visit 07/26/2019 10:21a [facility] Rosmery Perkins MD R51 Headache Hospitalists R50.9 Fever, unspecified E72.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, unspecified C50.919 Malignant neoplasm of unsp site of unspecified female breast Office Visit 07/24/2019 [facility] Florence Amos R50.9 Fever, 10:43a For Infectious Kat, RESEARCH & ANALYTICS MANAGER unspecified Diseases J98.11 Atelectasis M54.2 Cervicalgia R51 Headache C50.919 Malignant neoplasm of unsp site of unspecified female breast 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 of brain Office Visit 06/25/2019 10:00a [facility] Vic Collado, G56.21 Lesion of at [place] ulnar nerve, right upper limb Assessments Date [...] 08/10/2019 J96.00 Acute respiratory failure, Mellissa Stocking, HAND CLERICAL VERIFIER unspecified whether with hypoxia or hypercapnia 08/10/2019 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 of Jabier Urbina M.D. brain 08/10/2019 J18.1 Lobar pneumonia, unspecified Mellissa Stocking, HAND CLERICAL VERIFIER organism 08/10/2019 A41.9 Sepsis, unspecified organism Mellissa Stocking, HAND CLERICAL VERIFIER 08/10/2019 R94.5 Abnormal results of liver function Mellissa Stocking, HAND CLERICAL VERIFIER studies 08/10/2019 G93.9 Disorder of brain, unspecified Mellissa Stocking, HAND CLERICAL VERIFIER 08/10/2019 C50.919 Malignant neoplasm of unspecified Mellissa Stocking, HAND CLERICAL VERIFIER site of unspecified female breast 08/10/2019 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 of Mellissa Stocking, HAND CLERICAL VERIFIER brain 08/10/2019 R41.82 Altered mental status, unspecified Mellissa Stocking, HAND CLERICAL VERIFIER 08/09/2019 R41.82 Altered mental status, unspecified Darren Agustin MD 08/09/2019 R06.89 Other abnormalities of breathing Marshal French M.D. 08/09/2019 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 of Darren Agustin MD brain 08/09/2019 J96.00 Acute respiratory failure, Mellissa Stocking, HAND CLERICAL VERIFIER unspecified whether with hypoxia or hypercapnia 08/09/2019 J18.1 Lobar pneumonia, unspecified Mellissa Stocking, HAND CLERICAL VERIFIER organism 08/09/2019 A41.9 Sepsis, unspecified organism Mellissa Stocking, HAND CLERICAL VERIFIER 08/09/2019 R94.5 Abnormal results of liver function Mellissa Stocking, HAND CLERICAL VERIFIER studies 08/09/2019 G93.9 Disorder of brain, unspecified Mellissa Stocking, HAND CLERICAL VERIFIER 08/09/2019 C50.919 Malignant neoplasm of unspecified Mellissa Stocking, HAND CLERICAL VERIFIER site of unspecified female breast 08/09/2019 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 of Mellissa Stocking, HAND CLERICAL VERIFIER brain 08/08/2019 R41.82 Altered mental status, unspecified Bethany De Leon MD 08/08/2019 N17.9 Acute kidney failure, mickeyified Bethany De Leon MD 08/08/2019 M62.82 Rhabdomyolysis [...] Browne MD 07/27/2019 J98.11 Atelectasis Florence Kat, RESEARCH & ANALYTICS MANAGER 07/27/2019 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, Cammy Browne MD bilateral 07/27/2019 R51 Headache Florence aKt, RESEARCH & ANALYTICS MANAGER 07/27/2019 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 of Cammy Browne MD brain 07/27/2019 M54.9 Dorsalgia, unspecified Florence Kat, BENITO 07/27/2019 C50.919 Malignant neoplasm of unspecified Florence Kat, BENITO site of unspecified female breast 07/27/2019 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 of Florence Kat, RESEARCH & ANALYTICS MANAGER brain 07/26/2019 R51 Headache Rosmery Perkins MD 07/26/2019 R50.9 Fever, unspecified Rosmery Perkins MD 07/26/2019 E72.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, Rosmery Perkins MD unspecified 07/26/2019 C50.919 Malignant neoplasm of unspecified Rosmery Perkins MD site of unspecified female breast 07/24/2019 R50.9 Fever, unspecified Florence Kat, RESEARCH & ANALYTICS MANAGER 07/24/2019 J98.11 Atelectasis Florence Kat, RESEARCH & ANALYTICS MANAGER 07/24/2019 M54.2 Cervicalgia Florence Kat, RESEARCH & ANALYTICS MANAGER 07/24/2019 R51 Headache Florence Kat, RESEARCH & ANALYTICS MANAGER 07/24/2019 C50.919 Malignant neoplasm of unspecified Florence Kat, RESEARCH & ANALYTICS MANAGER site of unspecified female breast 07/24/2019 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 of Florence Kat, RESEARCH & ANALYTICS MANAGER brain 07/06/2019 Z13.6 Encounter for screening for Christian Ramos M.D., FACC, cardiovascular disorders [facility] 07/02/2019 R94.31 Abnormal electrocardiogram [ECG] Rocky Miranda MD, FACC, [EKG] [facility] 06/25/2019 G56.21 Lesion of ulnar nerve, right upper Vic Collado MD limb Plan of Treatment Future Appointment(s):10/30/2019 9:00 am - Raj Bowens NP at [id number]/14/2019 10:30 am - Earl Franklin MD at [facility] at [id number] - Vic Collado MDG56.21 Lesion of ulnar nerve, right upper limbFollow up:Follow up: with Noemi after EMG Functional Status Description No Information Available Mental Status Description No Information Available Referrals Description No Information Available
--- OUTSIDE RECORDS SUMMARY | 2019-10-14 15:32 | XMS REPORT | Continuity of Care Document ---
:1975 External Reference #:[id number] Author Name Jabier Urbina M.D. (transmitted by agent of provider Ijeoma Mtz) Address [address], [place] [address] Care Team Providers Name Role Phone Julian Livingston DO - Interventional Care Team Information Geothermal Powerplant Mechanic [phone] Pain Medicine Terrance Rose MD - Orthopaedic Care Team Information Geothermal Powerplant Mechanic Surgery Marleni Richardson MD - Internal Care Team Information Geothermal Powerplant Mechanic [phone] Medicine Problems Active Problems Provider Date Panic [...] Not using) Cyclobenzaprine HCL Patricia Cordero, 5mg SURVEY CAD TECHNICIAN Tablets Glyburide Patricia Cordero, 2.5mg Tablets SURVEY CAD TECHNICIAN Carisoprodol 1 tablet po qid Unknown 250mg Fluconazole one by mouth Unknown 200mg Tablets daily x14 days ( started taking 06/23/18) SM Naproxen Sodium 1 tablet po Patricia Cordero, 220mg twice daily SURVEY CAD TECHNICIAN Tablets Fentanyl apply 1 patch Unknown 100mcg/HR [...] Available Procedures Date Code Description Status 08/15/2019 97353 EKG, Interpretation Only Completed 08/11/2019 63565 EEG Recording Awake & Asleep Completed 08/09/2019 23780 EEG Recording In Coma Or Sleep Only Completed 08/09/2019 98013 ECHO Transthorasic Realtime 2D W Doppler & Color Flow Completed Hosp 07/06/2019 33783 EKG, Interpretation Only Completed 07/02/2019 39835 EKG, Interpretation Only Completed 07/18/2016 [id number] Mammogram Completed 07/24/2011 [id number] Colonoscopy Completed Medical Devices Description No Information [...] [facility] Christian Musa, R11.12 Projectile Visit 9:49a M.D. vomiting Office 08/10/2019 [facility]abier R41.82 Altered mental Visit 7:00a Jennifer Urbina M.D. status, unspecified G93.2 Benign intracranial hypertension 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 of brain Office Visit 08/10/2019 9:49a [facility] Mellissa J96.00 Acute respiratory Stocking, TRUCK PACKER failure, unsp w hypoxia or hypercapnia J18.1 [...] 9:49a [facility] Mellissa J96.00 Acute respiratory Stocking, TRUCK PACKER failure, unsp w hypoxia or hypercapnia J18.1 Lobar pneumonia, unspecified organism A41.9 Sepsis, unspecified organism R94.5 Abnormal results of liver function studies G93.9 Disorder of brain, unspecified C50.919 Malignant neoplasm of unsp site of unspecified female breast 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 of brain Office Visit 08/08/2019 [facility] R41.82 Altered mental 9:48a Assoc,mohit De Leon [...] neoplasm of brain Office Visit 07/27/2019 10:46a [facility] Bette J98.11 Atelectasis Infectious [place] SURVEY CAD TECHNICIAN Diseases R51 Headache M54.9 Dorsalgia, unspecified C50.919 Malignant neoplasm of unsp site of unspecified female breast 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 of brain Office Visit 07/26/2019 10:21a [facility]oc,mohit Perkins MD R51 Headache Hospitalists R50.9 Fever, unspecified E72.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, unspecified C50.919 Malignant neoplasm of unsp site of unspecified female breast Office Visit 07/24/2019 [facility] Bette R50.9 Fever, 10:43a For Infectious [place] SURVEY CAD TECHNICIAN unspecified Diseases J98.11 Atelectasis M54.2 Cervicalgia R51 Headache C50.919 Malignant neoplasm of unsp site of unspecified female breast 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 of brain Office Visit 06/25/2019 10:00a [facility] Vic Collado, G56.21 Lesion of at [place] ulnar nerve, right upper limb Assessments Date [...] 08/10/2019 J96.00 Acute respiratory failure, Mellissa Stocking, TRUCK PACKER unspecified whether with hypoxia or hypercapnia 08/10/2019 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 of Jabier Urbina M.D. brain 08/10/2019 J18.1 Lobar pneumonia, unspecified Mellissa Stocking, TRUCK PACKER organism 08/10/2019 A41.9 Sepsis, unspecified organism Mellissa Stocking, TRUCK PACKER 08/10/2019 R94.5 Abnormal results of liver function Mellissa Stocking, TRUCK PACKER studies 08/10/2019 G93.9 Disorder of brain, unspecified Mellissa Stocking, TRUCK PACKER 08/10/2019 C50.919 Malignant neoplasm of unspecified Mellissa Stocking, TRUCK PACKER site of unspecified female breast 08/10/2019 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 of Mellissa Stocking, TRUCK PACKER brain 08/10/2019 R41.82 Altered mental status, unspecified Mellissa Stocking, TRUCK PACKER 08/09/2019 R41.82 Altered mental status, unspecified Darren Agustin MD 08/09/2019 R06.89 Other abnormalities of breathing Marshal French M.D. 08/09/2019 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 of Darren Agustin MD brain 08/09/2019 J96.00 Acute respiratory failure, Mellissa Stocking, TRUCK PACKER unspecified whether with hypoxia or hypercapnia 08/09/2019 J18.1 Lobar pneumonia, unspecified Mellissa Stocking, TRUCK PACKER organism 08/09/2019 A41.9 Sepsis, unspecified organism Mellissa Stocking, TRUCK PACKER 08/09/2019 R94.5 Abnormal results of liver function Mellissa Stocking, TRUCK PACKER studies 08/09/2019 G93.9 Disorder of brain, unspecified Mellissa Stocking, TRUCK PACKER 08/09/2019 C50.919 Malignant neoplasm of unspecified Mellissa Stocking, TRUCK PACKER site of unspecified female breast 08/09/2019 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 of Mellissa Stocking, TRUCK PACKER brain 08/08/2019 R41.82 Altered mental status, unspecified [...] Browne MD 07/27/2019 J98.11 Atelectasis Florence Kat, SURVEY CAD TECHNICIAN 07/27/2019 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, Cammy Browne MD bilateral 07/27/2019 R51 Headache Florence Kat, SURVEY CAD TECHNICIAN 07/27/2019 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 of Cammy Browne MD brain 07/27/2019 M54.9 Dorsalgia, unspecified Florence Kat, SURVEY CAD TECHNICIAN 07/27/2019 C50.919 Malignant neoplasm of unspecified Florence Kat, SURVEY CAD TECHNICIAN site of unspecified female breast 07/27/2019 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 of Florence Kat, SURVEY CAD TECHNICIAN brain 07/26/2019 R51 Headache Rosmery Perkins MD 07/26/2019 R50.9 Fever, unspecified Rosmery Perkins MD 07/26/2019 E72.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, Rosmery Perkins MD unspecified 07/26/2019 C50.919 Malignant neoplasm of unspecified Rosmery Perkins MD site of unspecified female breast 07/24/2019 R50.9 Fever, unspecified Florence Kat, SURVEY CAD TECHNICIAN 07/24/2019 J98.11 Atelectasis Florence Kat, SURVEY CAD TECHNICIAN 07/24/2019 M54.2 Cervicalgia Florence Kat, SURVEY CAD TECHNICIAN 07/24/2019 R51 Headache Florence Kat, SURVEY CAD TECHNICIAN 07/24/2019 C50.919 Malignant neoplasm of unspecified Florence Kat, SURVEY CAD TECHNICIAN site of unspecified female breast 07/24/2019 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 of Florence Bette Kat NP brain 07/06/2019 Z13.6 Encounter for screening for Christian Ramos M.D., FAC, cardiovascular disorders [facility] 07/02/2019 R94.31 Abnormal electrocardiogram [ECG] Rocky Miranda MD, FACC, [EKG] [facility] 06/25/2019 G56.21 Lesion of ulnar nerve, right upper Vic Collado MD limb Plan of Treatment Future Appointment(s):10/30/2019 9:00 am - Raj Bowens NP at [id number]/14/2019 10:30 am - Earl Franklin MD at [facility] at [id number] - Vic Collado MDG56.21 Lesion of ulnar nerve, right upper limbFollow up:Follow up: with Noemi after EMG Functional Status Description No Information Available Mental Status Description No Information Available Referrals Description No Information Available
--- OUTSIDE RECORDS SUMMARY | 2019-10-14 15:32 | XMS REPORT ---
:1975 Author Organization [facility] Care Team Providers Name Role Phone Unavailable [...] Resolve 2017-072018-08-27 Love pain d 08-16 15:00:00 [place] 10:20: [id number] 00 Respiratory smoker Respirator Resolve 2017-072018-07-23 Love y d 08-16 15:00:00 [place] 10:20: [id number] 00 Endo/Jose anti-coagul Endo/Jose Resolve 2017-072018-06-25 Love ation d 08-16 15:00:00 Carly therapy 10:20: [id number] 00 Nutrition nutritional Nutrition Resolve 2017-072018-07-04 Love restriction d 08-16 15:00:00 [place] s 10:20: [id number] 00 Neuro confusion Neuro/Emot Resolve 2017-072018-08-06 Love present ion d 08-16 15:00:00 [place] 10:20: [id number] 00 Neuro anxiety Neuro/Emot Resolve 2017-072018-08-06 Love present ion d 08-16 15:00:00 [place] 10:20: [id number] 00 Neuro depressive Neuro/Emot Resolve 2017-072018-08-06 Love feelings ion d 08-16 15:00:00 [place] present 10:20: [id number] 00 Safety risk for Safety Resolve 2017-072018-07-04 Love hospitaliza d 08-16 15:00:00 [place] tion 10:20: [id number] 00 Safety fall risk Safety Resolve 2017-072018-07-04 Ericka factor d 08-16 15:00:00 Vivian present 10:20: 00 Musculoskel requires Musculoske Unknown 2017-07 Love etal human letal 08-16 [place] assist to 10:20: [id number] leave home 00 Cardio hypertensio Cardiovasc Resolve [...] d 2-10 15:00:00 [place] deficit Services 14:00: [id number] 00 Social knowledge/s BRISEYDA: Resolve 2017-072018-09-22 Ke[facility] Services kill Social d 2-10 13:00:00 [place] deficit - Services 14:00: [id number] pt 00 Social knowledge/s BRISEYDA: Resolve 2017-072018-09-22 Kezia Services kill Social d 2-10 13:00:00 [place] deficit - Services 14:00: [id number] cg 00 Musculoskel requires Musculoske Unknown 2017-07 [place] etal human letal 2- [place] assist to 15:30: leave home 00 Diagnoses knowledge/s Diagnoses Active 2017-07 Kezia kill 2 [place] deficit: cg 13:00: [id number] 00 Integument skin Integument Resolve 2017-072018-08-06 [place] [...] Active Kezia hospitaliza 2-18 [place] tion 14:00: [id number] 00 Safety can be left Safety Unknown Kezia alone for 2-18 [place] only short 14:00: [id number] periods 00 Pain frequent Pain Mgmt Resolve 2018-09-24 Lam pain d 2-27 15:00:00 [place] 15:50: [id number] 00 Safety can be left Safety Resolve 2018-10-08 Kezia alone for d 3-04 15:00:00 [place] only short 13:00: [id number] periods 00 Cardio edema Cardiovasc Resolve 2018-10-08 [...] ion d 4-08 13:00:00 Br[place] present 15:45: [id number] 00 Respiratory lung sounds Respirator Resolve 2018-10-29 [place] deficit y d 4-10 13:00:00 [place] 13:00: 00 Infection s/s of Infection Resolve 2019-02-04 [place] infection d 4-17 12:30:00 [place] 13:00: 00 Respiratory smoker Respirator Resolve 2018-11-05 [place] y d 4-17 13:00:00 [place] 13:00: 00 Neuro depressive Neuro/Emot Resolve 2018-12-10 Lam feelings ion d 420 12:30:00 Br[place] present 12:20: [id number] 00 Respiratory smoker Respirator Resolve 2018-11-20 [place] [...] 08 13:30:00 [place] deficit - Services 13:30: [id number] pt 00 Respiratory lung sounds Respirator Resolve [...] soni n d 12-18 12:30:00 Narendra 12:30: [id number] 00 Respiratory lung sounds Respirator Resolve 2018-12-24 [...] restriction d 01-16 12:30:00 [place] s 15:00: [id number] 00 Safety can be left Safety Resolve 2019-02-18 Kezia alone for d 01-16 12:10:00 [place] only short 15:00: [id number] periods 00 Respiratory smoker Respirator Resolve 2019-01-21 [...] [place] 13:00: 00 Elimination nausea/vomi Eliminatio Active [place] narcisoadam n 7-10 [place] 13:00: 00 Neuro anxiety Neuro/Emot Resolve 2019-02-18 [place] gilmore ion d 7-10 12:10:00 [place] 13:00: 00 Social knowledge/s BRISEYDA: Active [place] Services kill Social 7-10 [place] deficit - Services 13:00: pt 00 Social knowledge/s BRISEYDA: Active Kezia Services kill Social 7-12 [place] deficit - Services 14:00: [id number] cg 00 Respiratory lung sounds Respirator Resolve [...] 00 Respiratory lung sounds Respirator Resolve 2019-02-18 Shely[place] deficit y d 7 12:10:00 [place] 12:10: 00 Respiratory dyspnea Respirator Resolve 2019-07-16 [place] present y d 02-18 12:30:00 [place] 12:10: 00 Respiratory oxygen Respirator Resolve 2019-02-18 [place] treatments y d 7 12:10:00 [place] in home 12:10: 00 Neuro depressive Neuro/Emot Unknown Kezia feelings ion 02-18 [place] present 14:30: [id number] 00 Respiratory lung sounds Respirator Resolve 2019-03-04 [...] d 03-12 12:30:00 [place] only short 15:30: [id number] periods 00 Respiratory smoker Respirator Resolve 2019-03-12 [...] d 0-14 12:45:00 [place] only short 15:00: [id number] periods 00 Musculoskel requires Musculoske Unknown 2018-07 [...] alone for -12 [place] only short 15:30: [id number] periods 00 Respiratory smoker Respirator Resolve 2018-072019-07-09 [...] Unknown Kezia foot care 08-05 [place] 14:00: [id number] 00 Social financial BRISEYDA: Active Kezia Services resource Social 08-05 [place] deficit Services 14:00: [id number] 00 Integument skin Integument Active 2020-0 Love integrity 08-17 [place] risk 10:30: [id number] 00 Elimination urinary Eliminatio Resolve 2019-08-19 Love incontinenc n d 08-17 12:30:00 [place] e 10:30: [id number] 00 Elimination bowel Eliminatio Resolve 2019-09-02 Love incontinenc n d 08-17 12:30:00 [place] e 10:30: [id number] 00 Elimination diarrhea Eliminatio Resolve 2019-09-02 Love n d 08-17 12:30:00 [place] 10:30: [id number] 00 Neuro confusion Neuro/Emot Active 2019-0 Love present ion 08-17 [place] 10:30: [id number] 00 Neuro anxiety Neuro/Emot Active 2019-0 Love present ion 08-17 [place] 10:30: [id number] 00 Neuro impaired Neuro/Emot Active 2019-0 Love decision-ma ion 08-17 [place] wilemr 10:30: [id number] 00 Neuro memory Neuro/Emot Active 2019-0 Love deficit ion 08-17 [place] needing 10:30: [id number] supervision 00 Activity self-care Activity Active 2019-0 Love deficit 08-17 [place] 10:30: [id number] 00 Medication oral med Meds Active 2019-0 Love assistance 08-17 [place] required 10:30: [id number] 00 Musculoskel transfer Musculoske Active 2019-0 Love etal assistance letwi 08-17 [place] required 10:30: [id number] 00 Musculoskel requires Musculoske Unknown 2019-0 Love etal human letal 08-17 [place] assist to 10:30: [id number] leave home 00 Respiratory smoker Respirator Resolve [...] Balance/En d 2- 15:45:00 [place] durance 15:35: [id number] 00 Balance/End knowledge/s PT/OT: Resolve 2019-09-09 Lam urance kill Balance/En d 2- 15:45:00 Briones deficit: pt durance 15:35: [id number] 00 Gait/Locomo knowledge/s PT/OT: Resolve 2019-09-09 Lam tion kill Gait/Locom d 2-05 15:45:00 Briones problems deficit: pt otion 15:35: [id number] 00 Gait/Locomo knowledge/s PT/OT: Resolve 2019-09-09 Lam tion kill Gait/Locom d 2-05 15:45:00 Briones problems deficit: cg otion 15:35: [id number] 00 Gait/Locomo gait PT/OT: Resolve 2019-09-09 Lam tion deficit Gait/Locom d 2- 15:45:00 Briones problems otion 15:35: [id number] 00 Respiratory oxygen Respirator Resolve 2019-09-02 Shelby [...] d 3- 15:00:00 [place] 15:00: 00 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 PT/OT: Active Shelby urance rdination Balance/En 09-24 [place] deficit durance 15:00: 00 Gait/Locomo gait PT/OT: Active Shelby tion deficit Gait/Locom 06 [place] problems otion 15:00: 00 Allergies, Adverse Reactions, Alerts Allergy Allergy Status Severity Reaction(s) Onset Inactive Treating Comments Name Type Date Date Clinician phenergan Unknown Active Unknown Reaction Ernestine Unknown 3-23 (Robert) [place] [id number] effexor Unknown Active Unknown Reaction Ernestine Unknown 3-23 (Robert) [place] [id number] compazine Unknown Active Unknown Reaction Ernestine Unknown 3-23 (Robert) [place] [id number] adhesive Unknown Active Unknown Reaction Ernestine tape Unknown 3-23 (Robert) [place] [id number] milk Unknown Active Unknown Reaction Ernestine Unknown 3-23 (Robert) [place] [id number] prochlorper Base Active Unknown extrapyramidal 2017-07 [place] azine Ingredient symptoms 08-09 Dilip venlafaxine Base Active Severe Hives, 2017-07 [place] Ingredient difficulty 08-09 Dilip breathing, itching promethazin [...] Unknown 200 mg 200 mg 08-24 Jill CARREON tablet tablet Bactrim DS Bactrim DS 2017-07- [...] tablet mg tablet 2-12 MD,Jill oxyCODONE oxyCODONE 2019-0 Yes Liz Unknown Unknown 10 mg 10 mg 2-12 MD,Jill tablet tablet Soma 250 mg Soma 250 mg 2019-0 2020- Yes Liz Unknown Unknown tablet tablet 09-02- MD,Jill gabapentin gabapentin 2019- Yes Liz Unknown Unknown 600 mg 600 mg 2-14 MD,Jill tablet tablet Klor-Con 10 Klor-Con 10 2019- Yes Liz Unknown Unknown mEq mEq 2-14 MD,Jill tablet,exte tablet,exte nded nded release release mirtazapine mirtazapine Yes Liz Unknown Unknown 30 mg 30 mg 2-12 MD,Jill tablet tablet Soma 250 mg Soma 250 mg 2019-0 Yes Liz Unknown Unknown tablet tablet 2-19 MD,Jill omeprazole omeprazole 2019- Yes Liz Unknown Unknown 40 40 3-06 MD,Jill mg-sodium mg-sodium bicarbonate bicarbonate 1.1 gram 1.1 gram capsule capsule Vital Signs Vital Name Observation Time Observation Value Comments SYSTOLIC mm[Hg] 2019-09-29 18:10:48 120 mm[Hg] mm[Hg] Method: Sit SYSTOLIC mm[Hg] 2019-08-17 18:10:05 120 mm[Hg] mm[Hg] Method: Stand SYSTOLIC mm[Hg] 2019-09-26 18:10:45 118 mm[Hg] mm[Hg] Method: Lie DIASTOLIC mm[Hg] 2019-09-29 18:10:48 62 mm[Hg] mm[Hg] Method: Sit DIASTOLIC mm[Hg] 2019-08-17 18:10:05 80 mm[Hg] mm[Hg] Method: Stand DIASTOLIC mm[Hg] 2019-09-26 18:10:45 64 mm[Hg] mm[Hg] Method: Lie PULSE 2019-09-29 18:10:48 110 /min /min RESP RATE 2019-09-29 18:10:48 18 /min /min TEMP 2019-09-29 18:10:48 98.6 [degF] Procedures This patient has no known procedures. Results This patient has no known results.
--- OUTSIDE RECORDS SUMMARY | 2019-10-14 15:32 | XMS REPORT ---
:1975 Author Organization [facility] Care Team Providers Name Role Phone [...] Resolve 2017-072018-08-27 Love pain d 08-16 15:00:00 [place] 10:20: [id number] 00 Respiratory smoker Respirator Resolve 2017-072018-07-23 Love y d 08-16 15:00:00 [place] 10:20: [id number] 00 Endo/Jose anti-coagul Endo/Jose Resolve 2017-072018-06-25 Love ation d 08-16 15:00:00 Carly therapy 10:20: [id number] 00 Nutrition nutritional Nutrition Resolve 2017-072018-07-04 Love restriction d 08-16 15:00:00 [place] s 10:20: [id number] 00 Neuro confusion Neuro/Emot Resolve 2017-072018-08-06 Love present ion d 08-16 15:00:00 [place] 10:20: [id number] 00 Neuro anxiety Neuro/Emot Resolve 2017-072018-08-06 Love present ion d 08-16 15:00:00 [place] 10:20: [id number] 00 Neuro depressive Neuro/Emot Resolve 2017-072018-08-06 Love feelings ion d 08-16 15:00:00 [place] present 10:20: [id number] 00 Safety risk for Safety Resolve 2017-072018-07-04 Love hospitaliza d 08-16 15:00:00 [place] tion 10:20: [id number] 00 Safety fall risk Safety Resolve 2017-072018-07-04 Ericka factor d 08-16 15:00:00 Vivian present 10:20: 00 Musculoskel requires Musculoske Unknown 2017-07 Love etal human letal 08-16 [place] assist to 10:20: [id number] leave home 00 Cardio hypertensio Cardiovasc Resolve [...] d 2-10 15:00:00 [place] deficit Services 14:00: [id number] 00 Social knowledge/s BRISEYDA: Resolve 2017-072018-09-22 Ke[facility] Services kill Social d 2-10 13:00:00 [place] deficit - Services 14:00: [id number] pt 00 Social knowledge/s BRISEYDA: Resolve 2017-072018-09-22 Kezia Services kill Social d 2-10 13:00:00 [place] deficit - Services 14:00: [id number] cg 00 Musculoskel requires Musculoske Unknown 2017-07 [place] etal human letal 2- [place] assist to 15:30: leave home 00 Diagnoses knowledge/s Diagnoses Active 2017-07 Kezia kill 2 [place] deficit: cg 13:00: [id number] 00 Integument skin Integument Resolve 2017-072018-08-06 [place] [...] Active Kezia hospitaliza 2-18 [place] tion 14:00: [id number] 00 Safety can be left Safety Unknown Kezia alone for 2-18 [place] only short 14:00: [id number] periods 00 Pain frequent Pain Mgmt Resolve 2018-09-24 Lam pain d 2-27 15:00:00 [place] 15:50: [id number] 00 Safety can be left Safety Resolve 2018-10-08 Kezia alone for d 3-04 15:00:00 [place] only short 13:00: [id number] periods 00 Cardio edema Cardiovasc Resolve 2018-10-08 [...] ion d 4-08 13:00:00 [place] present 15:45: [id number] 00 Respiratory lung sounds Respirator Resolve 2018-10-29 [place] deficit y d 4-10 13:00:00 [place] 13:00: 00 Infection s/s of Infection Resolve 2019-02-04 [place] infection d 4-17 12:30:00 [place] 13:00: 00 Respiratory smoker Respirator Resolve 2018-11-05 [place] y d 4-17 13:00:00 [place] 13:00: 00 Neuro depressive Neuro/Emot Resolve 2018-12-10 Lam feelings ion d 420 12:30:00 [place] present 12:20: [id number] 00 Respiratory smoker Respirator Resolve 2018-11-20 [place] [...] 08 13:30:00 [place] deficit - Services 13:30: [id number] pt 00 Respiratory lung sounds Respirator Resolve [...] soni n d 12-18 12:30:00 Narendra 12:30: [id number] 00 Respiratory lung sounds Respirator Resolve 2018-12-24 [...] restriction d 01-16 12:30:00 [place] s 15:00: [id number] 00 Safety can be left Safety Resolve 2019-02-18 Kezia alone for d 01-16 12:10:00 [place] only short 15:00: [id number] periods 00 Respiratory smoker Respirator Resolve 2019-01-21 [...] Social 7-12 [place] deficit - Services 14:00: [id number] cg 00 Respiratory lung sounds Respirator Resolve [...] Kezia feelings ion 02-18 [place] present 14:30: [id number] 00 Respiratory lung sounds Respirator Resolve 2019-03-04 [...] d 03-12 12:30:00 [place] only short 15:30: [id number] periods 00 Respiratory smoker Respirator Resolve 2019-03-12 [...] d 0-14 12:45:00 [place] only short 15:00: [id number] periods 00 Musculoskel requires Musculoske Unknown 2018-07 [...] home 00 Respiratory oxygen Respirator Resolve 2018-072019-06-24 hSelby treatments y d 2-04 11:55:00 [place] in [...] alone for -12 [place] only short 15:30: [id number] periods 00 Respiratory smoker Respirator Resolve 2018-072019-07-09 [...] Unknown Kezia foot care 08-05 [place] 14:00: [id number] 00 Social financial BRISEYDA: Active Kezia Services resource Social 08-05 [place] deficit Services 14:00: [id number] 00 Integument skin Integument Active 2020-0 Love integrity 08-17 [place] risk 10:30: [id number] 00 Elimination urinary Eliminatio Resolve 2019-08-19 Love incontinenc n d 08-17 12:30:00 [place] e 10:30: [id number] 00 Elimination bowel Eliminatio Resolve 2019-09-02 Love incontinenc n d 08-17 12:30:00 [place] e 10:30: [id number] 00 Elimination diarrhea Eliminatio Resolve 2019-09-02 Love n d 08-17 12:30:00 [place] 10:30: [id number] 00 Neuro confusion Neuro/Emot Active 2019-0 Love present ion 08-17 [place] 10:30: [id number] 00 Neuro anxiety Neuro/Emot Active 2019-0 Love present ion 08-17 [place] 10:30: [id number] 00 Neuro impaired Neuro/Emot Active 2019-0 Love decision-ma ion 08-17 [place] wilmer 10:30: [id number] 00 Neuro memory Neuro/Emot Active 2019-0 Love deficit ion 08-17 [place] needing 10:30: [id number] supervision 00 Activity self-care Activity Active 2019-0 Love deficit 08-17 [place] 10:30: [id number] 00 Medication oral med Meds Active 2019-0 Love assistance 08-17 [place] required 10:30: [id number] 00 Musculoskel transfer Musculoske Active 2019-0 Love etal assistance letma 08-17 [place] required 10:30: [id number] 00 Musculoskel requires Musculoske Unknown 2019-0 [place] etal human letal 08-17 [place] assist to 10:30: [id number] leave home 00 Respiratory smoker Respirator Resolve [...] Balance/En d 2- 15:45:00 [place] durance 15:35: [id number] 00 Balance/End knowledge/s PT/OT: Resolve 2019-09-09 Lam urance kill Balance/En d 2- 15:45:00 [place] deficit: pt durance 15:35: [id number] 00 Gait/Locomo knowledge/s PT/OT: Resolve 2019-09-09 Lam tion kill Gait/Locom d 2-05 15:45:00 Br[place] problems deficit: pt otion 15:35: [id number] 00 Gait/Locomo knowledge/s PT/OT: Resolve 2019-09-09 Lam tion kill Gait/Locom d 2-05 15:45:00 Briones problems deficit: cg otion 15:35: [id number] 00 Gait/Locomo gait PT/OT: Resolve 2019-09-09 Lam tion deficit Gait/Locom d 2- 15:45:00 [place] problems otion 15:35: [id number] 00 Respiratory oxygen Respirator Resolve 2019-09-02 [place] [...] smoker Respirator Resolve 2019-09-09 [place] y d 2 11:00:00 [place] 11:00: 00 Respiratory oxygen Respirator Resolve 2019-09-16 [place] treatments y d 2 12:30:00 [place] in home 12:30: 00 Respiratory smoker Respirator Resolve 2019-09-16 [place] y d 2 12:30:00 [place] 12:30: 00 Respiratory oxygen Respirator Active Shelby treatments y 09-21 [place] in home 14:00: 00 Respiratory smoker Respirator Resolve 2019-09-22 [place] y d 3 14:00:00 [place] 14:00: 00 Allergies, Adverse Reactions, Alerts Allergy Allergy Status Severity Reaction(s) Onset Inactive Treating Comments Name Type Date Date Clinician phenergan Unknown Active Unknown Reaction Ernestine Unknown 3-23 (Robert) North [id number] effexor Unknown Active Unknown Reaction Ernestine Unknown 3-23 (Robert) [place] [id number] compazine Unknown Active Unknown Reaction Ernestine Unknown 3-23 (Robert) North [id number] adhesive Unknown Active Unknown Reaction Ernestine tape Unknown 3-23 (Robert) North [id number] milk Unknown Active Unknown Reaction Ernestine Unknown 3-23 (Robert) [place] [id number] prochlorper Base Active Unknown extrapyramidal 2017-07 [place] azine Ingredient symptoms - Dilip venlafaxine Base Active Severe Hives, 2017-07 [place] Ingredient difficulty 08-09 Dilip breathing, itching promethazin Base Active Unknown extrapyramidal 2017-07 [place] e Ingredient symptoms - Dilip Gadolinium- Allergen Active Severe Anaphylaxis [place] Containing Group 04-16 [place] Contrast Media Medications Ordered Filled Start Stop Current Ordering Indication Dosage Frequency Signature Comments Components Medication Medication Date Date Medication? Clinician (SIG) Name Name ALPRAZolam ALPRAZolam 2017-07 2020- No Liz Unknown Unknown 1 mg tablet [...] MD,Radomir tablet tablet Rexulti 2 Rexulti 2 2017-07- No Liz Unknown Unknown mg tablet mg tablet 08-16 Jill CARRENO Imodium A-D Imodium A-D No Stevanovic 2mg Unknown 2 mg tablet 2 mg tablet ,Radirvingir dexAMETHaso dexAMETHaso 2017-07- No Liz Unknown Unknown [...] Unknown Unknown 30 mg 30 mg 08-16 0918 Jill CARRENO capsule,del capsule,del ayed ayed release release anastrozole anastrozole 2017-07- No Liz Unknown Unknown 1 mg tablet 1 mg tablet 08-16 Jill CARRENO Soma 250 mg Soma 250 mg 2017-07- No Liz Unknown Unknown tablet tablet 08-1616 Jill CARRENO fentaNYL fentaNYL 2017-07- No Liz Unknown Unknown 100 mcg/hr 100 mcg/hr 08-22 Jill CARRENO transdermal transdermal patch patch AirDuo AirDuo 2017-07- No Liz Unknown Unknown RespiClick RespiClick 08-20 0613 Jill CARRENO 113 mcg-14 113 mcg-14 mcg/actuati [...] Unknown tablet tablet 08-06 Jill CARRENO Nyamyc Nyamy 2019- No Liz Unknown Unknown 100,000 100,000 [...] transdermal transdermal patch patch methocarbam methocarbam 2018- Liz Unknown Unknown ol 750 mg ol 750 mg 10-23 ,Jill tablet tablet pantoprazol pantoprazol 2019- No Liz Unknown Unknown e 40 mg e 40 mg 10-29 ,Jill tablet,suzan tablet,suzan yed release yed release cetirizine cetirizine 2019- No Liz Unknown Unknown 10 mg 10 mg 10-29 ,Jill tablet tablet ondansetron ondansetron No Liz Unknown Unknown 4 mg 4 mg 10-29 ,Jill disintegrat disintegrat ing tablet ing tablet [...] Liz Unknown Unknown 250 mg 250 mg 01-01- ,Jill tablet tablet oxygen oxygen 2018- No [...] 02-24 ,Jill capsule capsule metoclopram metoclopram 2019- Liz Unknown Unknown fahad 10 mg fahad [...] 08-05 ,Jill tablet tablet dronabinol dronabinol 2018-07 2020- No Liz Unknown Unknown 5 mg 5 mg 08-10 ,Jill capsule capsule Levaquin Levaquin 2018-07 2019- [...] tablet mg tablet 07-27 ,Jill dexAMETHaso dexAMETHaso 2020- Yes Liz Unknown Unknown [...] am 1,000 mg am 1,000 mg 08-17 ,Jill tablet tablet levETIRAcet levETIRAcet 2020- Yes Liz Unknown Unknown am 250 mg am 250 mg 08-17 ,Jill tablet tablet oxyCODONE 5 oxyCODONE 5 2020- Yes Liz Unknown Unknown mg tablet mg tablet 08-17 ,Jill levETIRAcet levETIRAcet 2020- Yes Liz Unknown Unknown am 500 mg am 500 mg 08-19 ,Jill tablet tablet oxyCODONE oxyCODONE 2020- Yes Liz Unknown Unknown 10 mg 10 mg 08-19 ,Jill tablet tablet anastrozole anastrozole 2020- Yes Liz Unknown Unknown 1 mg tablet 1 mg tablet 08-19 ,Jill Rexulti 2 Rexulti 2 2019-0 Yes Ilz Unknown Unknown mg tablet mg tablet 08-19 ,Jill cetirizine cetirizine Yes Liz Unknown Unknown 10 mg 10 mg 08-19 ,Jill tablet tablet Soma 250 mg Soma 250 mg 2020- Yes Liz Unknown Unknown tablet tablet 08-19 ,Jill gabapentin gabapentin 2020-0 2020- Yes Liz Unknown Unknown 600 mg 600 mg 08-19 ,Jill tablet tablet dexAMETHaso dexAMETHaso Yes Liz Unknown Unknown ne 2 mg ne 2 mg 08-19 MD,Jill tablet tablet Xarelto 20 Xarelto 20 Yes Liz Unknown Unknown mg tablet mg tablet 08-19 MD,Jill DULoxetine DULoxetine Yes Liz Unknown Unknown 60 mg 60 mg 08-19 MD,Jill capsule,del capsule,del ayed ayed release release acetaZOLAMI [...] Yes Liz Unknown Unknown tablet tablet 09-02 Jill CARRENO gabapentin gabapentin 2019- Yes Liz Unknown Unknown 600 mg 600 mg 2-14 Jill CARRENO tablet tablet Klor-Con 10 Klor-Con 10 Yes Liz Unknown Unknown mEq mEq 2-14 Jill CARRENO tablet,exte tablet,exte nded nded release release mirtazapine mirtazapine 2019- Yes Liz Unknown Unknown 30 mg 30 mg 2-12 Jill CARRENO tablet tablet Soma 250 mg Soma 250 mg Yes Liz Unknown Unknown tablet tablet 09-09 Jill CARRENO Vital Signs Vital Name Observation Time Observation Value Comments SYSTOLIC mm[Hg] 2019-09-22 18:10:41 118 mm[Hg] mm[Hg] Method: Sit SYSTOLIC mm[Hg] 2019-08-17 18:10:05 120 mm[Hg] mm[Hg] Method: Stand SYSTOLIC mm[Hg] 2019-09-02 18:10:21 110 mm[Hg] mm[Hg] Method: Lie DIASTOLIC mm[Hg] 2019-09-22 18:10:41 70 mm[Hg] mm[Hg] Method: Sit DIASTOLIC mm[Hg] 2019-08-17 18:10:05 80 mm[Hg] mm[Hg] Method: Stand DIASTOLIC mm[Hg] 2019-09-02 18:10:21 50 mm[Hg] mm[Hg] Method: Lie PULSE 2019-09-22 18:10:41 112 /min /min RESP RATE 2019-09-22 18:10:41 16 /min /min TEMP 2019-09-22 18:10:41 97.2 [degF] Procedures This patient has no known procedures. Results This patient has no known results.
--- OUTSIDE RECORDS SUMMARY | 2019-10-14 15:32 | XMS REPORT ---
:1975 Author Organization [facility] Care Team Providers Name Role Phone Unavailable [...] Resolve 2017-072018-08-27 Love pain d 08-16 15:00:00 [place] 10:20: [id number] 00 Respiratory smoker Respirator Resolve 2017-072018-07-23 Love y d 08-16 15:00:00 [place] 10:20: [id number] 00 Endo/Jose anti-coagul Endo/Jose Resolve 2017-072018-06-25 Love ation d 08-16 15:00:00 Carly therapy 10:20: [id number] 00 Nutrition nutritional Nutrition Resolve 2017-072018-07-04 Love restriction d 08-16 15:00:00 [place] s 10:20: [id number] 00 Neuro confusion Neuro/Emot Resolve 2017-072018-08-06 Love present ion d 08-16 15:00:00 [place] 10:20: [id number] 00 Neuro anxiety Neuro/Emot Resolve 2017-072018-08-06 Love present ion d 08-16 15:00:00 [place] 10:20: [id number] 00 Neuro depressive Neuro/Emot Resolve 2017-072018-08-06 Love feelings ion d 08-16 15:00:00 [place] present 10:20: [id number] 00 Safety risk for Safety Resolve 2017-072018-07-04 Love hospitaliza d 08-16 15:00:00 [place] tion 10:20: [id number] 00 Safety fall risk Safety Resolve 2017-072018-07-04 Ericka factor d 08-16 15:00:00 Vivian present 10:20: 00 Musculoskel requires Musculoske Unknown 2017-07 Love etal human letal 08-16 [place] assist to 10:20: [id number] leave home 00 Cardio hypertensio Cardiovasc Resolve [...] 13:00: 00 Integument skin Integument Resolve 2017-072018-07-04 Shelyb integrity d 2-05 15:00:00 [place] risk 15:00: 00 Social financial BRISEYDA: Resolve 2017-072019-07-20 [facility] resource Social d 2-10 15:00:00 [place] deficit Services 14:00: [id number] 00 Social knowledge/s BRISEYDA: Resolve 2017-072018-09-22 [facility] kill Social d 2-10 13:00:00 [place] deficit - Services 14:00: [id number] pt 00 Social knowledge/s BRISEYDA: Resolve 2017-072018-09-22 [facility] kill Social d 2-10 13:00:00 [place] deficit - Services 14:00: [id number] cg 00 Musculoskel requires Musculoske Unknown 2017-07 Shelby etal human letal 2- [place] assist to 15:30: leave home 00 Diagnoses knowledge/s Diagnoses Active 2017-07 [facility] kill 2 [place] deficit: cg 13:00: [id number] 00 Integument skin Integument Resolve 2017-072018-08-06 Shelby [...] Active [facility] hospitaliza 2-18 [place] tion 14:00: [id number] 00 Safety can be left Safety Unknown Kezia alone for 2-18 [place] only short 14:00: [id number] periods 00 Pain frequent Pain Mgmt Resolve 2018-09-24 Lam pain d 2-27 15:00:00 Briones 15:50: [id number] 00 Safety can be left Safety Resolve 2018-10-08 Kezia alone for d 3-04 15:00:00 [place] only short 13:00: [id number] periods 00 Cardio edema Cardiovasc Resolve 2018-10-08 [...] ion d 4-08 13:00:00 Br[place] present 15:45: [id number] 00 Respiratory lung sounds Respirator Resolve 2018-10-29 Shelby deficit y d 4-10 13:00:00 [place] 13:00: 00 Infection s/s of Infection Resolve 2019-02-04 Shelby infection d 4-17 12:30:00 [place] 13:00: 00 Respiratory smoker Respirator Resolve 2018-11-05 Shelby y d 4-17 13:00:00 [place] 13:00: 00 Neuro depressive Neuro/Emot Resolve 2018-12-10 Lam feelings ion d 420 12:30:00 Briones present 12:20: [id number] 00 Respiratory smoker Respirator Resolve 2018-11-20 Shelby [...] 08 13:30:00 [place] deficit - Services 13:30: [id number] pt 00 Respiratory lung sounds Respirator Resolve [...] soni n d 12-18 12:30:00 Narendra 12:30: [id number] 00 Respiratory lung sounds Respirator Resolve 2018-12-24 [...] restriction d 01-16 12:30:00 [place] s 15:00: [id number] 00 Safety can be left Safety Resolve 2019-02-18 Kezia alone for d 01-16 12:10:00 [place] only short 15:00: [id number] periods 00 Respiratory smoker Respirator Resolve 2019-01-21 [...] Social 7-12 [place] deficit - Services 14:00: [id number] cg 00 Respiratory lung sounds Respirator Resolve [...] Kezia feelings ion 02-18 [place] present 14:30: [id number] Respiratory lung sounds Respirator Resolve 2019-03-04 [...] d 03-12 12:30:00 [place] only short 15:30: [id number] periods 00 Respiratory smoker Respirator Resolve 2019-03-12 [...] d 0-14 12:45:00 [place] only short 15:00: [id number] periods 00 Musculoskel requires Musculoske Unknown 2018-07 [...] alone for -12 [place] only short 15:30: [id number] periods 00 Respiratory smoker Respirator Resolve 2018-072019-07-09 [...] Unknown [facility] foot care 08-05 [place] 14:00: [id number] 00 Social financial BRISEYDA: Active [facility] resource Social 08-05 [place] deficit Services 14:00: [id number] 00 Integument skin Integument Active 2020-0 Love integrity 08-17 [place] risk 10:30: [id number] 00 Elimination urinary Eliminatio Resolve 2019-08-19 Love incontinenc n d 08-17 12:30:00 [place] e 10:30: [id number] 00 Elimination bowel Eliminatio Resolve 2019-09-02 Love incontinenc n d 08-17 12:30:00 [place] e 10:30: [id number] 00 Elimination diarrhea Eliminatio Resolve 2019-09-02 Love n d 08-17 12:30:00 [place] 10:30: [id number] 00 Neuro confusion Neuro/Emot Active 2019-0 Love present ion 08-17 [place] 10:30: [id number] 00 Neuro anxiety Neuro/Emot Active 2019-0 Love present ion 08-17 [place] 10:30: [id number] 00 Neuro impaired Neuro/Emot Active 2019-0 Love decision-ma ion 08-17 [place] wilmer 10:30: [id number] 00 Neuro memory Neuro/Emot Active 2019-0 Love deficit ion 08-17 [place] needing 10:30: [id number] supervision 00 Activity self-care Activity Active 2019-0 Love deficit 08-17 [place] 10:30: [id number] 00 Medication oral med Meds Active 2019-0 Love assistance 08-17 [place] required 10:30: [id number] 00 Musculoskel transfer Musculoske Active 2019-0 Love etal assistance letdc 08-17 [place] required 10:30: [id number] 00 Musculoskel requires Musculoske Unknown 2019-0 Love etal human letal 08-17 [place] assist to 10:30: [id number] leave home 00 Respiratory smoker Respirator Resolve [...] Balance/En d 2- 15:45:00 [place] durance 15:35: [id number] 00 Balance/End knowledge/s PT/OT: Resolve 2019-09-09 Lam urance kill Balance/En d 2- 15:45:00 [place] deficit: pt durance 15:35: [id number] 00 Gait/Locomo knowledge/s PT/OT: Resolve 2019-09-09 Lam tion kill Gait/Locom d 2-05 15:45:00 [place] problems deficit: pt otion 15:35: [id number] 00 Gait/Locomo knowledge/s PT/OT: Resolve 2019-09-09 Lam tion kill Gait/Locom d 2-05 15:45:00 [place] problems deficit: cg otion 15:35: [id number] 00 Gait/Locomo gait PT/OT: Resolve 2019-09-09 Lam tion deficit Gait/Locom d 2- 15:45:00 [place] problems otion 15:35: [id number] 00 Respiratory oxygen Respirator Resolve 2019-09-02 [place] [...] Unknown Reaction Ernestine Unknown 3-23 ([place]) [place] [id number] effexor Unknown Active Unknown Reaction Ernestine Unknown 3-23 ([place]) [place] [id number] compazine Unknown Active Unknown Reaction Ernestine Unknown 3-23 ([place]) [place] [id number] adhesive Unknown Active Unknown Reaction Ernestine tape Unknown 3-23 ([place]) [place] [id number] milk Unknown Active Unknown Reaction Ernestine Unknown 3-23 ([place]) [place] [id number] prochlorper Base Active Unknown extrapyramidal 2017-07 [place] azine Ingredient symptoms - Dilip venlafaxine Base Active Severe Hives, 2017-07 [place] Ingredient difficulty 08-09 Dilip breathing, itching promethazin Base Active Unknown extrapyramidal 2017-07 [place] e Ingredient symptoms - Dilip Gadolinium- Allergen [...] Unknown Unknown mg tablet mg tablet 08-17 ,iJll levETIRAcet levETIRAcet 2020- Yes Liz Unknown Unknown am 500 mg am 500 mg 08-19 ,Jill tablet tablet oxyCODONE oxyCODONE 2020- Yes Liz Unknown Unknown 10 mg 10 mg 08-19 ,Jill tablet tablet anastrozole anastrozole 2020- Yes Liz Unknown Unknown 1 mg tablet 1 mg tablet 08-19 ,Jill Rexulti 2 Rexulti 2 2019-0 Yes Liz Unknown Unknown mg tablet [...] Unknown Unknown mg tablet mg tablet 09-02 MD,Jlil oxyCODONE oxyCODONE Yes Liz Unknown Unknown 10 mg 10 mg 09-02 MD,Jill tablet tablet Soma 250 mg Soma 250 mg 2020- Yes Liz Unknown Unknown tablet tablet 09-02 Jill CARRENO gabapentin gabapentin 2019- Yes Liz Unknown Unknown 600 mg 600 mg 2-14 ,Jill tablet tablet Klor-Con 10 Klor-Con 10 2019- Yes Liz Unknown Unknown mEq mEq 2-14 MD,Jill tablet,exte tablet,exte nded nded release release mirtazapine mirtazapine 2019- Yes Liz Unknown Unknown 30 mg 30 mg 2-12 ,Jill tablet tablet Soma 250 mg Soma 250 mg 2019- Yes Liz Unknown Unknown tablet tablet 2-19 ,Jill omeprazole omeprazole 2019- Yes Liz Unknown Unknown 40 40 3-06 Jill CARRENO mg-sodium mg-sodium bicarbonate bicarbonate 1.1 gram 1.1 [...]
--- OUTSIDE RECORDS SUMMARY | 2019-10-14 15:32 | XMS REPORT | Continuity of Care Document ---
:1975 External Reference #:[id number] Author Name Jabier Urbina M.D. (transmitted by agent of provider Ijeoma Mtz) Address [address], [place] [address] Care Team Providers Name Role Phone Julian Livingston DO - Interventional Care Team Information Tender Labor Pain Medicine Terrance Rose MD - Orthopaedic Care Team Information Tender Labor Surgery Marleni Richardson MD - Internal Care Team Information Tender Labor Medicine Problems Active Problems Provider Date Panic [...] Not using) Cyclobenzaprine HCL Patricia Cordero, 5mg CASE AIDE Tablets Glyburide Patricia Cordero, 2.5mg Tablets CASE AIDE Carisoprodol 1 tablet po qid Unknown 250mg Fluconazole one by mouth Unknown 200mg Tablets daily x14 days ( started taking 06/23/18) SM Naproxen Sodium 1 tablet po Patricia Cordero, 220mg twice daily CASE AIDE Tablets Fentanyl apply 1 patch Unknown 100mcg/HR [...] Available Procedures Date Code Description Status 08/15/2019 71659 EKG, Interpretation Only Completed 08/11/2019 99501 EEG Recording Awake & Asleep Completed 08/09/2019 81332 EEG Recording In Coma Or Sleep Only Completed 08/09/2019 00418 ECHO Transthorasic Realtime 2D W Doppler & Color Flow Completed Hosp 07/06/2019 26744 EKG, Interpretation Only Completed 07/02/2019 63683 EKG, Interpretation Only Completed 07/18/2016 [id number] Mammogram Completed 07/24/2011 [id number] Colonoscopy Completed Medical Devices Description No Information Available Encounters Type Date Location Provider Dx Diagnosis Office Visit 08/14/2019 [facility] Christian Musa M.D. E87.6 Hypokalemia 9:51a Office Visit 08/13/2019 [facility] Musa M.D. T40.2x2A Poisoning by oth 9:50a opioids, intentional self-harm, init encntr E87.6 Hypokalemia Office 08/12/2019 [facility] Musa, R41.82 Altered mental Visit 9:50a MTex status, [...] 9:49a [facility] Mellissa J96.00 Acute respiratory Stocking, [employer]K [employer]SEM[employer]ER failure, unsp w hypoxia or hypercapnia J18.1 [...] 9:49a [facility] Mellissa J96.00 Acute respiratory Stocking, [employer]K [employer]ER failure, unsp w hypoxia or hypercapnia J18.1 Lobar pneumonia, unspecified organism A41.9 Sepsis, unspecified organism R94.5 Abnormal results of liver function studies G93.9 Disorder of brain, unspecified C50.919 Malignant neoplasm of unsp site of unspecified female breast 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 of brain Office Visit 08/08/2019 [facility] [place] R41.82 Altered mental 9:48a Assoc,pc MD Haley [...] neoplasm of brain Office Visit 07/27/2019 10:46a [facility] Florence Amos J98.11 Atelectasis Infectious Kat, CASE AIDE Diseases R51 Headache M54.9 Dorsalgia, unspecified C50.919 Malignant neoplasm of unsp site of unspecified female breast 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 of brain Office Visit 07/26/2019 10:21a [facility],mohit Perkins MD R51 Headache Hospitalists R50.9 Fever, unspecified E72.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, unspecified C50.919 Malignant neoplasm of unsp site of unspecified female breast Office Visit 07/24/2019 [facility] Florence Amos R50.9 Fever, 10:43a For Infectious Kat, CASE AIDE unspecified Diseases J98.11 Atelectasis M54.2 Cervicalgia R51 Headache C50.919 Malignant neoplasm of unsp site of unspecified female breast 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 of brain Office Visit 06/25/2019 10:00a [facility] Vic Collado, G56.21 Lesion of at [place] ulnar nerve, right upper limb Assessments Date [...] 08/10/2019 J96.00 Acute respiratory failure, Mellissa Stocking, [employer]K [employer]SEM[employer]ER unspecified whether with hypoxia or hypercapnia 08/10/2019 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 of Jabier Urbina M.D. brain 08/10/2019 J18.1 Lobar pneumonia, unspecified Mellissa Stocking, [employer]K [employer]ER organism 08/10/2019 A41.9 Sepsis, unspecified organism Mellissa Stocking, [employer]K [employer]SEM[employer]ER 08/10/2019 R94.5 Abnormal results of liver function Mellissa Stocking, [employer]K [employer]ER studies 08/10/2019 G93.9 Disorder of brain, unspecified Mellissa Stocking, [employer]K ASSEM[employer]ER 08/10/2019 C50.919 Malignant neoplasm of unspecified Mellissa Stocking, [employer]K [employer]ER site of unspecified female breast 08/10/2019 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 of Mellissa Stocking, [employer]K ASSEM[employer]ER brain 08/10/2019 R41.82 Altered mental status, unspecified Mellissa Stocking, [employer]K ASSEM[employer]ER 08/09/2019 R41.82 Altered mental status, unspecified Darren Agustin MD 08/09/2019 R06.89 Other abnormalities of breathing Marshal French M.D. 08/09/2019 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 of Darren Agustin MD brain 08/09/2019 J96.00 Acute respiratory failure, Mellissa Stocking, [employer]K [employer]ER unspecified whether with hypoxia or hypercapnia 08/09/2019 J18.1 Lobar pneumonia, unspecified Mellissa Stocking, [employer]K [employer]ER organism 08/09/2019 A41.9 Sepsis, unspecified organism Mellissa Stocking, [employer]K ASSEM[employer]ER 08/09/2019 R94.5 Abnormal results of liver function Mellissa Stocking, [employer]ER studies 08/09/2019 G93.9 Disorder of brain, unspecified Mellissa Stocking, [employer]K [employer]ER 08/09/2019 C50.919 Malignant neoplasm of unspecified Mellissa Stocking, [employer] site of unspecified female breast 08/09/2019 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 of Mellissa Stocking, [employer]ER brain 08/08/2019 R41.82 Altered mental status, unspecified [...] Browne MD 07/27/2019 J98.11 Atelectasis [place] Kat, CASE AIDE 07/27/2019 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919 Malignant neoplasm of unspecified Rosmery Perkins MD site of unspecified female breast 07/24/2019 R50.9 Fever, unspecified [place] Kat, CASE AIDE 07/24/2019 J98.11 Atelectasis [place] Kat, CASE AIDE 07/24/2019 M54.2 Cervicalgia [place] Kat, CASE AIDE 07/24/2019 R51 Headache [place] Kat, CASE AIDE 07/24/2019 C50.919 Malignant neoplasm of unspecified [place] Kat, CASE AIDE site of unspecified female breast 07/24/2019 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 of [place] Kat, CASE AIDE brain 07/06/2019 Z13.6 Encounter for screening for Christian Ramos M.D., FAC, cardiovascular disorders [facility] 07/02/2019 R94.31 Abnormal electrocardiogram [ECG] Rocky Miranda MD, FACC, [EKG] [facility] 06/25/2019 G56.21 Lesion of ulnar nerve, right upper Vic Collado MD limb Plan of Treatment Future Appointment(s):10/30/2019 9:00 am - Raj Bowens NP at [id number]/14/2019 10:30 am - Earl Franklin MD at [facility] at [id number] - Vic Collado MDG56.21 Lesion of ulnar nerve, right upper limbFollow up:Follow up: with Noemi after EMG Functional Status Description No Information Available Mental Status Description No Information Available Referrals Description No Information Available
--- OUTSIDE RECORDS SUMMARY | 2019-10-14 15:33 | XMS REPORT ---
:1975 Author Organization [facility] Care Team Providers Name Role Phone [...] Resolve 2017-072018-08-27 Love pain d 08-16 15:00:00 [place] 10:20: [id number] 00 Respiratory smoker Respirator Resolve 2017-072018-07-23 Love y d 08-16 15:00:00 [place] 10:20: [id number] 00 Endo/Jose anti-coagul Endo/Jose Resolve 2017-072018-06-25 Love ation d 08-16 15:00:00 Carly therapy 10:20: [id number] 00 Nutrition nutritional Nutrition Resolve 2017-072018-07-04 Love restriction d 08-16 15:00:00 [place] s 10:20: [id number] 00 Neuro confusion Neuro/Emot Resolve 2017-072018-08-06 Love present ion d 08-16 15:00:00 [place] 10:20: [id number] 00 Neuro anxiety Neuro/Emot Resolve 2017-072018-08-06 Love present ion d 08-16 15:00:00 [place] 10:20: [id number] 00 Neuro depressive Neuro/Emot Resolve 2017-072018-08-06 Love feelings ion d 08-16 15:00:00 [place] present 10:20: [id number] 00 Safety risk for Safety Resolve 2017-072018-07-04 Love hospitaliza d 08-16 15:00:00 [place] tion 10:20: [id number] 00 Safety fall risk Safety Resolve 2017-072018-07-04 Ericka factor d 08-16 15:00:00 Vivian present 10:20: 00 Musculoskel requires Musculoske Unknown 2017-07 Love etal human letal 08-16 [place] assist to 10:20: [id number] leave home 00 Cardio hypertensio Cardiovasc Resolve [...] d 2-10 15:00:00 [place] deficit Services 14:00: [id number] 00 Social knowledge/s BRISEYDA: Resolve 2017-072018-09-22 [facility] Services kill Social d 2-10 13:00:00 [place] deficit - Services 14:00: [id number] pt 00 Social knowledge/s BRISEYDA: Resolve 2017-072018-09-22 [facility] kill Social d 2-10 13:00:00 [place] deficit - Services 14:00: [id number] cg 00 Musculoskel requires Musculoske Unknown 2017-07 [place] etal human letal 2- [place] assist to 15:30: leave home 00 Diagnoses knowledge/s Diagnoses Active 2017-07 Kezia kill 2 [place] deficit: cg 13:00: [id number] 00 Integument skin Integument Resolve 2017-072018-08-06 [place] [...] Active Kezia hospitaliza 2-18 [place] tion 14:00: [id number] 00 Safety can be left Safety Unknown Kezia alone for 2-18 [place] only short 14:00: [id number] periods 00 Pain frequent Pain Mgmt Resolve 2018-09-24 Lam pain d 2-27 15:00:00 [place] 15:50: [id number] 00 Safety can be left Safety Resolve 2018-10-08 Kezia alone for d 3-04 15:00:00 [place] only short 13:00: [id number] periods 00 Cardio edema Cardiovasc Resolve 2018-10-08 [...] ion d 4-08 13:00:00 Br[place] present 15:45: [id number] 00 Respiratory lung sounds Respirator Resolve 2018-10-29 [place] deficit y d 4-10 13:00:00 [place] 13:00: 00 Infection s/s of Infection Resolve 2019-02-04 [place] infection d 4-17 12:30:00 [place] 13:00: 00 Respiratory smoker Respirator Resolve 2018-11-05 [place] y d 4-17 13:00:00 [place] 13:00: 00 Neuro depressive Neuro/Emot Resolve 2018-12-10 Lam feelings ion d 420 12:30:00 [place] present 12:20: [id number] 00 Respiratory smoker Respirator Resolve 2018-11-20 [place] [...] 08 13:30:00 [place] deficit - Services 13:30: [id number] pt 00 Respiratory lung sounds Respirator Resolve [...] soni n d 12-18 12:30:00 Narendra 12:30: [id number] 00 Respiratory lung sounds Respirator Resolve 2018-12-24 [...] restriction d 01-16 12:30:00 [place] s 15:00: [id number] 00 Safety can be left Safety Resolve 2019-02-18 Kezia alone for d 01-16 12:10:00 [place] only short 15:00: [id number] periods 00 Respiratory smoker Respirator Resolve 2019-01-21 [...] Social 7-12 [place] deficit - Services 14:00: [id number] cg 00 Respiratory lung sounds Respirator Resolve [...] Kezia feelings ion 02-18 [place] present 14:30: [id number] 00 Respiratory lung sounds Respirator Resolve 2019-03-04 [...] d 03-12 12:30:00 [place] only short 15:30: [id number] periods 00 Respiratory smoker Respirator Resolve 2019-03-12 [...] d 0-14 12:45:00 [place] only short 15:00: [id number] periods 00 Musculoskel requires Musculoske Unknown 2018-07 [...] alone for -12 [place] only short 15:30: [id number] periods 00 Respiratory smoker Respirator Resolve 2018-072019-07-09 [...] Unknown Kezia foot care 08-05 [place] 14:00: [id number] 00 Social financial BRISEYDA: Active Ke[facility] Services resource Social 08-05 [place] deficit Services 14:00: [id number] 00 Integument skin Integument Active 2020-0 Love integrity 08-17 [place] risk 10:30: [id number] 00 Elimination urinary Eliminatio Resolve 2019-08-19 Love incontinenc n d 08-17 12:30:00 [place] e 10:30: [id number] 00 Elimination bowel Eliminatio Resolve 2019-09-02 Love incontinenc n d 08-17 12:30:00 [place] e 10:30: [id number] 00 Elimination diarrhea Eliminatio Resolve 2019-09-02 Love n d 08-17 12:30:00 [place] 10:30: [id number] 00 Neuro confusion Neuro/Emot Active 2019-0 Love present ion 08-17 [place] 10:30: [id number] 00 Neuro anxiety Neuro/Emot Active 2019-0 Love present ion 08-17 [place] 10:30: [id number] 00 Neuro impaired Neuro/Emot Active 2019-0 Love decision-ma ion 08-17 [place] wilmer 10:30: [id number] 00 Neuro memory Neuro/Emot Active 2019-0 Love deficit ion 08-17 [place] needing 10:30: [id number] supervision 00 Activity self-care Activity Active 2019-0 Love deficit 08-17 [place] 10:30: [id number] 00 Medication oral med Meds Active 2019-0 Love assistance 08-17 [place] required 10:30: [id number] 00 Musculoskel transfer Musculoske Active 2019-0 Love etal assistance letne 08-17 [place] required 10:30: [id number] 00 Musculoskel requires Musculoske Unknown 2019-0 Love etal human letal 08-17 [place] assist to 10:30: [id number] leave home 00 Respiratory smoker Respirator Resolve [...] Balance/En d 2- 15:45:00 [place] durance 15:35: [id number] 00 Balance/End knowledge/s PT/OT: Resolve 2019-09-09 Lam urance kill Balance/En d 2- 15:45:00 [place] deficit: pt durance 15:35: [id number] 00 Gait/Locomo knowledge/s PT/OT: Resolve 2019-09-09 Lam tion kill Gait/Locom d 2-05 15:45:00 Briones problems deficit: pt otion 15:35: [id number] 00 Gait/Locomo knowledge/s PT/OT: Resolve 2019-09-09 Lam tion kill Gait/Locom d 2-05 15:45:00 Briones problems deficit: cg otion 15:35: [id number] 00 Gait/Locomo gait PT/OT: Resolve 2019-09-09 Lam tion deficit Gait/Locom d 2- 15:45:00 Briones problems otion 15:35: [id number] 00 Respiratory oxygen Respirator Resolve 2019-09-02 Shelby [...] smoker Respirator Resolve 2019-09-09 Shelby y d 09-09 11:00:00 [place] 11:00: 00 Respiratory oxygen Respirator Resolve 2019-09-16 Shelby ruby y d 09-16 12:30:00 [place] in home 12:30: 00 Respiratory smoker Respirator Resolve 2019-09-16 Shelby y d 09-16 12:30:00 [place] 12:30: 00 Allergies, Adverse Reactions, Alerts Allergy Allergy Status Severity Reaction(s) Onset Inactive Treating Comments Name Type Date Date Clinician phenergan Unknown Active Unknown Reaction Ernestine Unknown 3-23 (Robert) [place] [id number] effexor Unknown Active Unknown Reaction Ernestine Unknown 3-23 (Robert) [place] [id number] compazine Unknown Active Unknown Reaction Ernestine Unknown 3-23 (Robert) [place] [id number] adhesive Unknown Active Unknown Reaction Ernestine tape Unknown 3-23 (Robert) [place] [id number] milk Unknown Active Unknown Reaction Ernestine Unknown 3-23 (Robert) [place] [id number] prochlorper Base Active Unknown extrapyramidal 2017-07 [place] azine Ingredient symptoms 1- Dilip venlafaxine Base Active Severe Hives, 2017-07 [place] Ingredient difficulty 08-09 Dilip breathing, itching promethazin Base Active Unknown extrapyramidal 2017-07 [place] e Ingredient symptoms - Dilip Gadolinium- Allergen Active Severe Anaphylaxis [place] Containing Group 04-16 [place] Contrast Media Medications Ordered Filled Start Stop Current Ordering Indication Dosage Frequency Signature Comments Components Medication Medication Date Date Medication? Clinician (SIG) Name Name ALPRAZolam ALPRAZolam 2017-07- Liz Unknown Unknown 1 mg tablet 1 [...] 2 mg tablet ,Augustoomir dexAMETHaso dexAMETHaso 2017-07- Liz Unknown Unknown ne [...] 250 mg Soma 250 mg 2017-07- No Ilz Unknown Unknown tablet tablet 08-16 Jill CARRENO [...] mg 01-13 ,Jill tablet tablet oxyCODONE oxyCODONE 2019- No Liz Unknown Unknown 10 mg 10 mg 01-27 ,iJll tablet tablet Colace 100 Colace 100 No [...] mg 02-24 MD,Jill capsule capsule metoclopram metoclopram 2019- No Liz Unknown Unknown fahad 10 mg fahad 10 mg 02-24 MD,Jill tablet tablet Xarelto 20 Xarelto 20 2017-07- No Liz Unknown Unknown mg tablet mg tablet 08-16 1217 MD,Jill traZODone traZODone 2017-07- No Liz Unknown [...] Unknown Unknown 875 mg-125 875 mg-125 0- MD,Jill mg tablet mg tablet Kadcyla 100 Kadcyla 100 2018-07 No Liz Unknown Unknown mg mg 0-03 MD,Jill intravenous intravenous solution solution sulfacetami sulfacetami 2018-07- No Liz Unknown Unknown de sodium de sodium 08-05 ,Jill 10 % eye 10 % eye drops drops gabapentin gabapentin 2018-07- No Liz Unknown Unknown 600 mg 600 mg 08-05 MD,Jill tablet tablet dronabinol dronabinol 2018-07- No Liz Unknown Unknown 5 mg 5 mg 08-10 MD,Jill capsule capsule Levaquin Levaquin 2018-07- Yes Liz Unknown Unknown 750 mg 750 mg 2-11 12-25 ,Jill tablet tablet dexAMETHaso dexAMETHaso 2018-07 2020- [...] tablet,exte nded nded release release traZODone traZODone 2019- Yes Liz Unknown Unknown 100 mg 100 mg 07-27 ,Jill tablet tablet Klor-Con Klor-Con 2020- Yes Liz Unknown Unknown M20 mEq M20 mEq 08-05 ,Jill tablet,exte tablet,exte nded nded release release Klor-Con Klor-Con 2020- Yes Liz Unknown Unknown M20 mEq M20 mEq 08-17 ,Jill tablet,exte tablet,exte nded nded release release traZODone traZODone Yes Liz Unknown Unknown 100 mg 100 mg 08-17 MD,Jill tablet tablet fentanyl fentanyl Yes Liz Unknown Unknown 150 mcg/hr 150 mcg/hr 08-17 MD,Jill transdermal transdermal patch patch acetaZOLAMI acetaZOLAMI 2020- [...] Unknown Unknown M20 mEq M20 mEq 08-19 MD,Jill tablet,exte tablet,exte nded nded release release levETIRAcet [...] Unknown tablet tablet 09-02 MD,Jill gabapentin gabapentin Yes Liz Unknown Unknown 600 mg 600 mg 09-04 MD,Jill tablet tablet Klor-Con 10 Klor-Con 10 Yes Liz Unknown Unknown mEq mEq 09-04 MD,Jill tablet,exte tablet,exte nded nded release release mirtazapine mirtazapine 2019- Yes Liz Unknown Unknown 30 mg 30 mg 2-12 Jill CARRENO tablet tablet Soma 250 mg Soma 250 mg Yes Liz Unknown Unknown tablet tablet 2- Jill CARRENO Vital Signs Vital Name Observation [...]
--- OUTSIDE RECORDS SUMMARY | 2019-10-14 15:33 | XMS REPORT ---
:1975 Author Organization [facility] Care Team Providers Name Role Phone [...] recurrent, unspecified unspecified Anxiety Anxiety Diagnosis Active [place] disorder, disorder, [place] unspecified unspecified Pain frequent Pain Mgmt Resolve 2017-072018-08-27 Love pain d 08-16 15:00:00 [place] 10:20: [id number] 00 Respiratory smoker Respirator Resolve 2017-072018-07-23 Love y d 08-16 15:00:00 [place] 10:20: [id number] 00 Endo/Jose anti-coagul Endo/Jose Resolve 2017-072018-06-25 Love ation d 08-16 15:00:00 Carly therapy 10:20: [id number] 00 Nutrition nutritional Nutrition Resolve 2017-072018-07-04 Love restriction d 08-16 15:00:00 [place] s 10:20: [id number] 00 Neuro confusion Neuro/Emot Resolve 2017-072018-08-06 Love present ion d 08-16 15:00:00 [place] 10:20: [id number] 00 Neuro anxiety Neuro/Emot Resolve 2017-072018-08-06 Love present ion d 08-16 15:00:00 [place] 10:20: [id number] 00 Neuro depressive Neuro/Emot Resolve 2017-072018-08-06 Love feelings ion d 08-16 15:00:00 [place] present 10:20: [id number] 00 Safety risk for Safety Resolve 2017-072018-07-04 Love hospitaliza d 08-16 15:00:00 [place] tion 10:20: [id number] 00 Safety fall risk Safety Resolve 2017-072018-07-04 Ericka factor d 08-16 15:00:00 Vivian present 10:20: 00 Musculoskel requires Musculoske Unknown 2017-07 Love etal human letal 08-16 [place] assist to 10:20: [id number] leave home 00 Cardio hypertensio Cardiovasc Resolve [...] d 2-10 15:00:00 [place] deficit Services 14:00: [id number] 00 Social knowledge/s BRISEYDA: Resolve 2017-072018-09-22 [facility] Services kill Social d 2-10 13:00:00 [place] deficit - Services 14:00: [id number] pt 00 Social knowledge/s BRISEYDA: Resolve 2017-072018-09-22 [facility] Services kill Social d 2-10 13:00:00 [place] deficit - Services 14:00: [id number] cg 00 Musculoskel requires Musculoske Unknown 2017-07 [place] etal human letal 2- [place] assist to 15:30: leave home 00 Diagnoses knowledge/s Diagnoses Active 2017-07 Kezia kill 2 [place] deficit: cg 13:00: [id number] 00 Integument skin Integument Resolve 2017-072018-08-06 [place] [...] Active Kezia hospitaliza 2-18 [place] tion 14:00: [id number] 00 Safety can be left Safety Unknown Kezia alone for 2-18 [place] only short 14:00: [id number] periods 00 Pain frequent Pain Mgmt Resolve 2018-09-24 Lam pain d 2-27 15:00:00 [place] 15:50: [id number] 00 Safety can be left Safety Resolve 2018-10-08 Kezia alone for d 3-04 15:00:00 [place] only short 13:00: [id number] periods 00 Cardio edema Cardiovasc Resolve 2018-10-08 [...] ion d 4-08 13:00:00 [place] present 15:45: [id number] 00 Respiratory lung sounds Respirator Resolve 2018-10-29 [place] deficit y d 4-10 13:00:00 [place] 13:00: 00 Infection s/s of Infection Resolve 2019-02-04 [place] infection d 4-17 12:30:00 [place] 13:00: 00 Respiratory smoker Respirator Resolve 2018-11-05 [place] y d 4-17 13:00:00 [place] 13:00: 00 Neuro depressive Neuro/Emot Resolve 2018-12-10 Lam feelings ion d 420 12:30:00 [place] present 12:20: [id number] 00 Respiratory smoker Respirator Resolve 2018-11-20 [place] [...] 08 13:30:00 [place] deficit - Services 13:30: [id number] pt 00 Respiratory lung sounds Respirator Resolve [...] soni n d 12-18 12:30:00 Narendra 12:30: [id number] 00 Respiratory lung sounds Respirator Resolve 2018-12-24 [...] restriction d 01-16 12:30:00 [place] s 15:00: [id number] 00 Safety can be left Safety Resolve 2019-02-18 Kezia alone for d 01-16 12:10:00 [place] only short 15:00: [id number] periods 00 Respiratory smoker Respirator Resolve 2019-01-21 [...] Social 7-12 [place] deficit - Services 14:00: [id number] cg 00 Respiratory lung sounds Respirator Resolve [...] Kezia feelings ion 02-18 [place] present 14:30: [id number] 00 Respiratory lung sounds Respirator Resolve 2019-03-04 [...] d 03-12 12:30:00 [place] only short 15:30: [id number] periods 00 Respiratory smoker Respirator Resolve 2019-03-12 [...] d 0-14 12:45:00 [place] only short 15:00: [id number] periods 00 Musculoskel requires Musculoske Unknown 2018-07 [...] alone for -12 [place] only short 15:30: [id number] periods 00 Respiratory smoker Respirator Resolve 2018-072019-07-09 [...] Unknown Kezia foot care 08-05 [place] 14:00: [id number] 00 Social financial BRISEYDA: Active [facility] Services resource Social 08-05 [place] deficit Services 14:00: [id number] 00 Integument skin Integument Active 2020-0 Love integrity 08-17 [place] risk 10:30: [id number] 00 Elimination urinary Eliminatio Resolve 2019-08-19 Love incontinenc n d 08-17 12:30:00 [place] e 10:30: [id number] 00 Elimination bowel Eliminatio Resolve 2019-09-02 Love incontinenc n d 08-17 12:30:00 [place] e 10:30: [id number] 00 Elimination diarrhea Eliminatio Resolve 2019-09-02 Love n d 08-17 12:30:00 [place] 10:30: [id number] 00 Neuro confusion Neuro/Emot Active 2019-0 Love present ion 08-17 [place] 10:30: [id number] 00 Neuro anxiety Neuro/Emot Active 2019-0 Love present ion 08-17 [place] 10:30: [id number] 00 Neuro impaired Neuro/Emot Active 2019-0 Love decision-ma ion 08-17 [place] wilmer 10:30: [id number] 00 Neuro memory Neuro/Emot Active 2019-0 Love deficit ion 08-17 [place] needing 10:30: [id number] supervision 00 Activity self-care Activity Active 2019-0 Love deficit 08-17 [place] 10:30: [id number] 00 Medication oral med Meds Active 2019-0 Love assistance 08-17 [place] required 10:30: [id number] 00 Musculoskel transfer Musculoske Active 2019-0 Love etal assistance letpr 08-17 [place] required 10:30: [id number] 00 Musculoskel requires Musculoske Unknown 2019-0 Love etal human letal 08-17 [place] assist to 10:30: [id number] leave home 00 Respiratory smoker Respirator Resolve [...] Balance/En d 2- 15:45:00 [place] durance 15:35: [id number] 00 Balance/End knowledge/s PT/OT: Resolve 2019-09-09 Lam urance kill Balance/En d 2- 15:45:00 [place] deficit: pt durance 15:35: [id number] 00 Gait/Locomo knowledge/s PT/OT: Resolve 2019-09-09 Lam tion kill Gait/Locom d 2-05 15:45:00 Briones problems deficit: pt otion 15:35: [id number] 00 Gait/[place]ocom[place] knowledge/s PT/OT: Resolve 2019-09-09 Lam tion kill Gait/Locom d 2-05 15:45:00 Briones problems deficit: cg otion 15:35: [id number] 00 Gait/[place]ocomo gait PT/OT: Resolve 2019-09-09 Lam tion deficit Gait/Locom d 2- 15:45:00 Briones problems otion 15:35: [id number] 00 Respiratory oxygen Respirator Resolve 2019-09-02 [place] [...] Unknown Reaction Ernestine Unknown 3-23 (Robert) [place] [id number] effexor Unknown Active Unknown Reaction Ernestine Unknown 3-23 (Robert) [place] [id number] compazine Unknown Active Unknown Reaction Ernestine Unknown 3-23 (Robert) [place] [id number] adhesive Unknown Active Unknown Reaction Ernestine tape Unknown 3-23 (Robert) [place] [id number] milk Unknown Active Unknown Reaction Ernestine Unknown 3-23 (Robert) [place] [id number] prochlorper Base Active Unknown extrapyramidal 2017-07 [place] azine Ingredient symptoms 1- Dilip venlafaxine Base Active Severe Hives, 2017-07 [place] Ingredient difficulty 08-09 Dilip breathing, itching promethazin Base Active Unknown extrapyramidal 2017-07 [place] e Ingredient symptoms - Dilip Gadolinium- Allergen [...] transdermal patch patch methocarbam methocarbam 2018- No Lzi Unknown Unknown ol 750 mg ol 750 [...] Unknown gram oral gram oral 01-21 Jill CARREON powder powder packet packet Aloxi 0.25 Aloxi [...] Observation Time Observation Value Comments SYSTOLIC mm[Hg] 2019-09-16 18:10:35 132 mm[Hg] mm[Hg] Method: Sit SYSTOLIC mm[Hg] 2019-08-17 18:10:05 120 mm[Hg] mm[Hg] Method: Stand SYSTOLIC mm[Hg] 2019-09-02 18:10:21 110 mm[Hg] mm[Hg] Method: Lie DIASTOLIC mm[Hg] 2019-09-16 18:10:35 64 mm[Hg] mm[Hg] Method: Sit DIASTOLIC mm[Hg] 2019-08-17 18:10:05 80 mm[Hg] mm[Hg] Method: Stand DIASTOLIC mm[Hg] 2019-09-02 18:10:21 50 mm[Hg] mm[Hg] Method: Lie PULSE 2019-09-16 18:10:35 103 /min /min RESP RATE 2019-09-16 18:10:35 16 /min /min TEMP 2019-09-16 18:10:35 97.2 [degF] Procedures This patient has no known procedures. Results This patient has no known results.
--- OUTSIDE RECORDS SUMMARY | 2019-10-14 15:33 | XMS REPORT ---
:1975 Author Organization [facility] Care Team Providers Name Role Phone [...] Resolve 2017-072018-08-27 Love pain d 08-16 15:00:00 Freer 10:20: [id number] 00 Respiratory smoker Respirator Resolve 2017-072018-07-23 Love y d 08-16 15:00:00 Freer 10:20: [id number] 00 Endo/Jose anti-coagul Endo/Jose Resolve 2017-072018-06-25 Love ation d 08-16 15:00:00 Carly therapy 10:20: [id number] 00 Nutrition nutritional Nutrition Resolve 2017-072018-07-04 Love restriction d 08-16 15:00:00 Freer s 10:20: [id number] 00 Neuro confusion Neuro/Emot Resolve 2017-072018-08-06 Love present ion d 08-16 15:00:00 Freer 10:20: [id number] 00 Neuro anxiety Neuro/Emot Resolve 2017-072018-08-06 Love present ion d 08-16 15:00:00 Freer 10:20: [id number] 00 Neuro depressive Neuro/Emot Resolve 2017-072018-08-06 Love feelings ion d 08-16 15:00:00 Freer present 10:20: [id number] 00 Safety risk for Safety Resolve 2017-072018-07-04 Love hospitaliza d 08-16 15:00:00 Freer tion 10:20: [id number] 00 Safety fall risk Safety Resolve 2017-072018-07-04 Ericka factor d 08-16 15:00:00 Vivian present 10:20: 00 Musculoskel requires Musculoske Unknown 2017-07 Love etal human letal 08-16 Freer assist to 10:20: [id number] leave home 00 Cardio hypertensio Cardiovasc Resolve [...] d 2-10 15:00:00 [place] deficit Services 14:00: [id number] 00 Social knowledge/s BRISEYDA: Resolve 2017-072018-09-22 Ke[facility] Services kill Social d 2-10 13:00:00 [place] deficit - Services 14:00: [id number] pt 00 Social knowledge/s BRISEYDA: Resolve 2017-072018-09-22 Ke[facility] kill Social d 2-10 13:00:00 [place] deficit - Services 14:00: [id number] cg 00 Musculoskel requires Musculoske Unknown 2017-07 Shelby etal human letal 2- Vallely assist to 15:30: leave home 00 Diagnoses knowledge/s Diagnoses Active 2017-07 Kezia kill 2 [place] deficit: cg 13:00: [id number] 00 Integument skin Integument Resolve 2017-072018-08-06 Shelby [...] Active Kezia hospitaliza 2-18 [place] tion 14:00: [id number] 00 Safety can be left Safety Unknown Kezia alone for 2-18 [place] only short 14:00: [id number] periods 00 Pain frequent Pain Mgmt Resolve 2018-09-24 Lam pain d 2-27 15:00:00 Briones 15:50: [id number] 00 Safety can be left Safety Resolve 2018-10-08 Kezia alone for d 3-04 15:00:00 [place] only short 13:00: [id number] periods 00 Cardio edema Cardiovasc Resolve 2018-10-08 [...] ion d 4-08 13:00:00 Briones present 15:45: [id number] 00 Respiratory lung sounds Respirator Resolve 2018-10-29 Shelby deficit y d 4-10 13:00:00 Vallely 13:00: 00 Infection s/s of Infection Resolve 2019-02-04 Shelby infection d 4-17 12:30:00 Vallely 13:00: 00 Respiratory smoker Respirator Resolve 2018-11-05 Shelby y d 4-17 13:00:00 Vallely 13:00: 00 Neuro depressive Neuro/Emot Resolve 2018-12-10 Lam feelings ion d 420 12:30:00 Briones present 12:20: [id number] 00 Respiratory smoker Respirator Resolve 2018-11-20 Shelby [...] 08 13:30:00 [place] deficit - Services 13:30: [id number] pt 00 Respiratory lung sounds Respirator Resolve [...] soni n d 12-18 12:30:00 Narendra 12:30: [id number] 00 Respiratory lung sounds Respirator Resolve 2018-12-24 [...] restriction d 01-16 12:30:00 [place] s 15:00: [id number] 00 Safety can be left Safety Resolve 2019-02-18 Kezia alone for d 01-16 12:10:00 [place] only short 15:00: [id number] periods 00 Respiratory smoker Respirator Resolve 2019-01-21 [...] Social 7-12 [place] deficit - Services 14:00: [id number] cg 00 Respiratory lung sounds Respirator Resolve [...] Kezia feelings ion 02-18 [place] present 14:30: [id number] 00 Respiratory lung sounds Respirator Resolve 2019-03-04 [...] d 03-12 12:30:00 [place] only short 15:30: [id number] periods 00 Respiratory smoker Respirator Resolve 2019-03-12 [...] d 0-14 12:45:00 [place] only short 15:00: [id number] periods 00 Musculoskel requires Musculoske Unknown 2018-07 [...] alone for -12 [place] only short 15:30: [id number] periods 00 Respiratory smoker Respirator Resolve 2018-072019-07-09 [...] Unknown Kezia foot care 08-05 [place] 14:00: [id number] 00 Social financial BRISEYDA: Active Kezia Services resource Social 08-05 [place] deficit Services 14:00: [id number] 00 Integument skin Integument Active 2020-0 Love integrity 08-17 Freer risk 10:30: [id number] 00 Elimination urinary Eliminatio Resolve 2019-08-19 Love incontinenc n d 08-17 12:30:00 Freer e 10:30: [id number] 00 Elimination bowel Eliminatio Resolve 2019-09-02 Love incontinenc n d 08-17 12:30:00 Freer e 10:30: [id number] 00 Elimination diarrhea Eliminatio Resolve 2019-09-02 Love n d 08-17 12:30:00 Freer 10:30: [id number] 00 Neuro confusion Neuro/Emot Active 2019-0 Love present ion 08-17 Freer 10:30: [id number] 00 Neuro anxiety Neuro/Emot Active 2019-0 Love present ion 08-17 Freer 10:30: [id number] 00 Neuro impaired Neuro/Emot Active 2019-0 Love decision-ma ion 08-17 Freer wilmer 10:30: [id number] 00 Neuro memory Neuro/Emot Active 2019-0 Love deficit ion 08-17 Freer needing 10:30: [id number] supervision 00 Activity self-care Activity Active 2019-0 Love deficit 08-17 Freer 10:30: [id number] 00 Medication oral med Meds Active 2019-0 Love assistance 08-17 Freer required 10:30: [id number] 00 Musculoskel transfer Musculoske Active 2019-0 Love etal assistance letct 08-17 Freer required 10:30: [id number] 00 Musculoskel requires Musculoske Unknown 2019-0 Love etal human letal 08-17 Freer assist to 10:30: [id number] leave home 00 Respiratory smoker Respirator Resolve [...] Balance/En d 2- 15:45:00 Briones durance 15:35: [id number] 00 Balance/End knowledge/s PT/OT: Resolve 2019-09-09 Lam urance kill Balance/En d 2- 15:45:00 Briones deficit: pt durance 15:35: [id number] 00 Gait/Locomo knowledge/s PT/OT: Resolve 2019-09-09 Lam tion kill Gait/Locom d 2-05 15:45:00 Briones problems deficit: pt otion 15:35: [id number] 00 Gait/Locomo knowledge/s PT/OT: Resolve 2019-09-09 Lam tion kill Gait/Locom d 2-05 15:45:00 Briones problems deficit: cg otion 15:35: [id number] 00 Gait/Locomo gait PT/OT: Resolve 2019-09-09 Lam tion deficit Gait/Locom d 2- 15:45:00 Briones problems otion 15:35: [id number] 00 Respiratory oxygen Respirator Resolve 2019-09-02 Shelby [...] Unknown Reaction Ernestine Unknown 3-23 ([place] [id number] effexor Unknown Active Unknown Reaction Ernestine Unknown 3-23 ([place]) [place] [id number] compazine Unknown Active Unknown Reaction Ernestine Unknown 3-23 ([place] [id number] adhesive Unknown Active Unknown Reaction Ernestine tape Unknown 3-23 ([place]) [place] [id number] milk Unknown Active Unknown Reaction Ernestine Unknown 3-23 ([place] [id number] prochlorper Base Active Unknown extrapyramidal 2017-07 [place] azine Ingredient symptoms 1- Dilip venlafaxine Base Active Severe Hives, 2017-07 [place] Ingredient difficulty 08-09 Dilip breathing, itching promethazin Base Active Unknown extrapyramidal 2017-07 [place] e Ingredient symptoms - Dilip Gadolinium- Allergen [...] Unknown mg tablet mg tablet 08-01 Jill ACRRENO Soma 250 mg Soma 250 mg 2018- [...] tablet Xarelto 20 Xarelto 20 2017-07- No Ilz Unknown Unknown mg tablet mg tablet 08-16 [...]
--- OUTSIDE RECORDS SUMMARY | 2019-10-14 15:33 | XMS REPORT ---
:1975 Author Organization [facility] Care Team Providers Name Role [...] Resolve 2017-072018-08-27 Love pain d 08-16 15:00:00 [place] 10:20: [id number] 00 Respiratory smoker Respirator Resolve 2017-072018-07-23 Love y d 08-16 15:00:00 [place] 10:20: [id number] 00 Endo/Jose anti-coagul Endo/Jose Resolve 2017-072018-06-25 Love ation d 08-16 15:00:00 Carly therapy 10:20: [id number] 00 Nutrition nutritional Nutrition Resolve 2017-072018-07-04 Love restriction d 08-16 15:00:00 [place] s 10:20: [id number] 00 Neuro confusion Neuro/Emot Resolve 2017-072018-08-06 Love present ion d 08-16 15:00:00 [place] 10:20: [id number] 00 Neuro anxiety Neuro/Emot Resolve 2017-072018-08-06 Love present ion d 08-16 15:00:00 [place] 10:20: [id number] 00 Neuro depressive Neuro/Emot Resolve 2017-072018-08-06 Love feelings ion d 08-16 15:00:00 [place] present 10:20: [id number] 00 Safety risk for Safety Resolve 2017-072018-07-04 Love hospitaliza d 08-16 15:00:00 [place] tion 10:20: [id number] 00 Safety fall risk Safety Resolve 2017-072018-07-04 Ericka factor d 08-16 15:00:00 Vivian present 10:20: 00 Musculoskel requires Musculoske Unknown 2017-07 Love etal human letal 08-16 [place] assist to 10:20: [id number] leave home 00 Cardio hypertensio Cardiovasc Resolve [...] d 2-10 15:00:00 [place] deficit Services 14:00: [id number] 00 Social knowledge/s BRISEYDA: Resolve 2017-072018-09-22 [facility] kill Social d 2-10 13:00:00 [place] deficit - Services 14:00: [id number] pt 00 Social knowledge/s BRISEYDA: Resolve 2017-072018-09-22 [facility] kill Social d 2-10 13:00:00 [place] deficit - Services 14:00: [id number] cg 00 Musculoskel requires Musculoske Unknown 2017-07 Shelby etal human letal 2- Vallely assist to 15:30: leave home 00 Diagnoses knowledge/s Diagnoses Active 2017-07 Kezia kill 2 [place] deficit: cg 13:00: [id number] 00 Integument skin Integument Resolve 2017-072018-08-06 Shelby [...] Active Kezia hospitaliza 2-18 [place] tion 14:00: [id number] 00 Safety can be left Safety Unknown Kezia alone for 2-18 [place] only short 14:00: [id number] periods 00 Pain frequent Pain Mgmt Resolve 2018-09-24 Lam pain d 2-27 15:00:00 Briones 15:50: [id number] 00 Safety can be left Safety Resolve 2018-10-08 Kezia alone for d 3-04 15:00:00 [place] only short 13:00: [id number] periods 00 Cardio edema Cardiovasc Resolve 2018-10-08 [...] ion d 4-08 13:00:00 Briones present 15:45: [id number] 00 Respiratory lung sounds Respirator Resolve 2018-10-29 Shelby deficit y d 4-10 13:00:00 Vallely 13:00: 00 Infection s/s of Infection Resolve 2019-02-04 Shelby infection d 4-17 12:30:00 Vallely 13:00: 00 Respiratory smoker Respirator Resolve 2018-11-05 Shelby y d 4-17 13:00:00 Vallely 13:00: 00 Neuro depressive Neuro/Emot Resolve 2018-12-10 Lam feelings ion d 420 12:30:00 Briones present 12:20: [id number] 00 Respiratory smoker Respirator Resolve 2018-11-20 Shelby [...] 08 13:30:00 [place] deficit - Services 13:30: [id number] pt 00 Respiratory lung sounds Respirator Resolve [...] soni n d 12-18 12:30:00 Narendra 12:30: [id number] 00 Respiratory lung sounds Respirator Resolve 2018-12-24 [...] restriction d 01-16 12:30:00 [place] s 15:00: [id number] 00 Safety can be left Safety Resolve 2019-02-18 Kezia alone for d 01-16 12:10:00 [place] only short 15:00: [id number] periods 00 Respiratory smoker Respirator Resolve 2019-01-21 [...] Social 7-12 [place] deficit - Services 14:00: [id number] cg 00 Respiratory lung sounds Respirator Resolve 2019-02-04 Shelby deficit y d 7- 12:30:00 Vallely 12:30: 00 Respiratory oxygen Respirator Resolve 2019-02-04 [place] treatments y d 7 12:30:00 Vallely [...] Kezia feelings ion 02-18 [place] present 14:30: [id number] 00 Respiratory lung sounds Respirator Resolve 2019-03-04 [...] d 03-12 12:30:00 [place] only short 15:30: [id number] periods 00 Respiratory smoker Respirator Resolve 2019-03-12 [...] d 0-14 12:45:00 [place] only short 15:00: [id number] periods 00 Musculoskel requires Musculoske Unknown 2018-07 [...] home 00 Respiratory oxygen Respirator Resolve 2018-072019-06-17 hSelby treatments y d 1- 12:00:00 Vallely in [...] alone for -12 [place] only short 15:30: [id number] periods 00 Respiratory smoker Respirator Resolve 2018-072019-07-09 [...] Unknown Kezia foot care 08-05 [place] 14:00: [id number] 00 Social financial BRISEYDA: Active Kezia Services resource Social 08-05 [place] deficit Services 14:00: [id number] 00 Integument skin Integument Active 2020-0 Love integrity 08-17 [place] risk 10:30: [id number] 00 Elimination urinary Eliminatio Resolve 2019-08-19 Love incontinenc n d 08-17 12:30:00 [place] e 10:30: [id number] 00 Elimination bowel Eliminatio Resolve 2019-09-02 Love incontinenc n d 08-17 12:30:00 [place] e 10:30: [id number] 00 Elimination diarrhea Eliminatio Resolve 2019-09-02 Love n d 08-17 12:30:00 [place] 10:30: [id number] 00 Neuro confusion Neuro/Emot Active 2019-0 Love present ion 08-17 [place] 10:30: [id number] 00 Neuro anxiety Neuro/Emot Active 2019-0 Love present ion 08-17 [place] 10:30: [id number] 00 Neuro impaired Neuro/Emot Active 2019-0 Love decision-ma ion 08-17 [place]ell wilmer 10:30: [id number] 00 Neuro memory Neuro/Emot Active 2019-0 Love deficit ion 08-17 [place] needing 10:30: [id number] supervision 00 Activity self-care Activity Active 2019-0 Love deficit 08-17 [place] 10:30: [id number] 00 Medication oral med Meds Active 2019-0 Love assistance 08-17 [place] required 10:30: [id number] 00 Musculoskel transfer Musculoske Active 2019-0 Love etal assistance letid 08-17 [place] required 10:30: [id number] 00 Musculoskel requires Musculoske Unknown 2019-0 Love etal human letal 08-17 [place] assist to 10:30: [id number] leave home 00 Respiratory smoker Respirator Resolve [...] Balance/En d 2- 15:45:00 Briones durance 15:35: [id number] 00 Balance/End knowledge/s PT/OT: Resolve 2019-09-09 Lam urance kill Balance/En d 2- 15:45:00 Briones deficit: pt durance 15:35: [id number] 00 Gait/Locomo knowledge/s PT/OT: Resolve 2019-09-09 Lam tion kill Gait/Locom d 2-05 15:45:00 Briones problems deficit: pt otion 15:35: [id number] 00 Gait/Locomo knowledge/s PT/OT: Resolve 2019-09-09 Lam tion kill Gait/Locom d 2-05 15:45:00 Briones problems deficit: cg otion 15:35: [id number] 00 Gait/Locomo gait PT/OT: Resolve 2019-09-09 Lam tion deficit Gait/Locom d 2- 15:45:00 Briones problems otion 15:35: [id number] 00 Respiratory oxygen Respirator Resolve 2019-09-02 Shelby [...] Unknown Reaction Ernestine Unknown 3-23 ([place]) [place] [id number] effexor Unknown Active Unknown Reaction Ernestine Unknown 3-23 ([place]) [place] [id number] compazine Unknown Active Unknown Reaction Ernestine Unknown 3-23 ([place]) [place] [id number] adhesive Unknown Active Unknown Reaction Ernestine tape Unknown 3-23 ([place]) [place] [id number] milk Unknown Active Unknown Reaction Ernestine Unknown 3-23 ([place]) [place] [id number] prochlorper Base Active Unknown extrapyramidal 2017-07 [place] azine Ingredient symptoms 1- Dilip venlafaxine Base Active Severe Hives, 2017-07 [place] Ingredient difficulty 08-09 Dilip breathing, itching promethazin Base Active Unknown extrapyramidal 2017-07 [place] e Ingredient symptoms - Dilip Gadolinium- Allergen [...] Unknown mg tablet mg tablet 08-01 Jill CARREON oxyCODONE 5 oxyCODONE 5 2018- No Liz Unknown Unknown mg tablet mg tablet 08-01 Jill CARRENO Soma 250 mg Soma 250 mg 2018- No Lzi Unknown Unknown tablet tablet 08-06 Jill CARRENO [...]
--- OUTSIDE RECORDS SUMMARY | 2019-10-14 15:33 | XMS REPORT ---
:1975 Author Organization [facility] Care Team Providers Name Role [...] Resolve 2017-072018-08-27 Love pain d 08-16 15:00:00 Bayard 10:20: [id number] 00 Respiratory smoker Respirator Resolve 2017-072018-07-23 Love y d 08-16 15:00:00 [place]ard 10:20: [id number] 00 Endo/Jose anti-coagul Endo/Jose Resolve 2017-072018-06-25 Love ation d 08-16 15:00:00 Carly therapy 10:20: [id number] 00 Nutrition nutritional Nutrition Resolve 2017-072018-07-04 Love restriction d 08-16 15:00:00 [place]ard s 10:20: [id number] 00 Neuro confusion Neuro/Emot Resolve 2017-072018-08-06 Love present ion d 08-16 15:00:00 [place] 10:20: [id number] 00 Neuro anxiety Neuro/Emot Resolve 2017-072018-08-06 Love present ion d 08-16 15:00:00 [place]ard 10:20: [id number] 00 Neuro depressive Neuro/Emot Resolve 2017-072018-08-06 Love feelings ion d 08-16 15:00:00 [place]ard present 10:20: [id number] 00 Safety risk for Safety Resolve 2017-072018-07-04 Love hospitaliza d 08-16 15:00:00 [place]ard tion 10:20: [id number] 00 Safety fall risk Safety Resolve 2017-072018-07-04 Ericka factor d 08-16 15:00:00 Vivian present 10:20: 00 Musculoskel requires Musculoske Unknown 2017-07 Love etal human letal 08-16 Bayard assist to 10:20: [id number] leave home 00 Cardio hypertensio Cardiovasc Resolve [...] d 2-10 15:00:00 [place] deficit Services 14:00: [id number] 00 Social knowledge/s BRISEYDA: Resolve 2017-072018-09-22 Ke[facility] kill Social d 2-10 13:00:00 [place] deficit - Services 14:00: [id number] pt 00 Social knowledge/s BRISEYDA: Resolve 2017-072018-09-22 Ke[facility] Services kill Social d 2-10 13:00:00 [place] deficit - Services 14:00: [id number] cg 00 Musculoskel requires Musculoske Unknown 2017-07 Shelby etal human letal 2- Vallely assist to 15:30: leave home 00 Diagnoses knowledge/s Diagnoses Active 2017-07 Kezia kill 2 [place] deficit: cg 13:00: [id number] 00 Integument skin Integument Resolve 2017-072018-08-06 Shelby [...] Active Kezia hospitaliza 2-18 [place] tion 14:00: [id number] 00 Safety can be left Safety Unknown Kezia alone for 2-18 [place] only short 14:00: [id number] periods 00 Pain frequent Pain Mgmt Resolve 2018-09-24 Lam pain d 2-27 15:00:00 Briones 15:50: [id number] 00 Safety can be left Safety Resolve 2018-10-08 Kezia alone for d 3-04 15:00:00 [place] only short 13:00: [id number] periods 00 Cardio edema Cardiovasc Resolve 2018-10-08 [...] ion d 4-08 13:00:00 Briones present 15:45: [id number] 00 Respiratory lung sounds Respirator Resolve 2018-10-29 Shelby deficit y d 4-10 13:00:00 Vallely 13:00: 00 Infection s/s of Infection Resolve 2019-02-04 Shelby infection d 4-17 12:30:00 Vallely 13:00: 00 Respiratory smoker Respirator Resolve 2018-11-05 Shelby y d 4-17 13:00:00 Vallely 13:00: 00 Neuro depressive Neuro/Emot Resolve 2018-12-10 Lam feelings ion d 420 12:30:00 Briones present 12:20: [id number] 00 Respiratory smoker Respirator Resolve 2018-11-20 Shelby [...] 08 13:30:00 [place] deficit - Services 13:30: [id number] pt 00 Respiratory lung sounds Respirator Resolve [...] soni n d 12-18 12:30:00 Narendra 12:30: [id number] 00 Respiratory lung sounds Respirator Resolve 2018-12-24 [...] restriction d 01-16 12:30:00 [place] s 15:00: [id number] 00 Safety can be left Safety Resolve 2019-02-18 Kezia alone for d 01-16 12:10:00 [place] only short 15:00: [id number] periods 00 Respiratory smoker Respirator Resolve 2019-01-21 [...] Social 7-12 [place] deficit - Services 14:00: [id number] cg 00 Respiratory lung sounds Respirator Resolve [...] Kezia feelings ion 02-18 [place] present 14:30: [id number] 00 Respiratory lung sounds Respirator Resolve 2019-03-04 [...] d 03-12 12:30:00 [place] only short 15:30: [id number] periods 00 Respiratory smoker Respirator Resolve 2019-03-12 [...] d 0-14 12:45:00 [place] only short 15:00: [id number] periods 00 Musculoskel requires Musculoske Unknown 2018-07 [...] alone for -12 [place] only short 15:30: [id number] periods 00 Respiratory smoker Respirator Resolve 2018-072019-07-09 [...] Unknown Kezia foot care 08-05 [place] 14:00: [id number] 00 Social financial BRISEYDA: Active Kezia Services resource Social 08-05 [place] deficit Services 14:00: [id number] 00 Integument skin Integument Active 2020-0 Love integrity 08-17 Bayard risk 10:30: [id number] 00 Elimination urinary Eliminatio Resolve 2019-08-19 Love incontinenc n d 08-17 12:30:00 [place]ard e 10:30: [id number] 00 Elimination bowel Eliminatio Resolve 2019-09-02 Love incontinenc n d 08-17 12:30:00 Bayard e 10:30: [id number] 00 Elimination diarrhea Eliminatio Resolve 2019-09-02 Love n d 08-17 12:30:00 [place]ard 10:30: [id number] 00 Neuro confusion Neuro/Emot Active 2019-0 Love present ion 08-17 Bayard 10:30: [id number] 00 Neuro anxiety Neuro/Emot Active 2019-0 Loev present ion 08-17 Bayard 10:30: [id number] 00 Neuro impaired Neuro/Emot Active 2019-0 Love decision-ma ion 08-17 Bayard wilmer 10:30: [id number] 00 Neuro memory Neuro/Emot Active 2019-0 Love deficit ion 08-17 Bayard needing 10:30: [id number] supervision 00 Activity self-care Activity Active 2019-0 Love deficit 08-17 [place]ard 10:30: [id number] 00 Medication oral med Meds Active 2019-0 Love assistance 08-17 [place]ard required 10:30: [id number] 00 Musculoskel transfer Musculoske Active 2019-0 Love etal assistance letwv 08-17 [place]ard required 10:30: [id number] 00 Musculoskel requires Musculoske Unknown 2019-0 Love etal human letal 08-17 [place]ard assist to 10:30: [id number] leave home 00 Respiratory smoker Respirator Resolve [...] Balance/En d 2- 15:45:00 Briones durance 15:35: [id number] 00 Balance/End knowledge/s PT/OT: Resolve 2019-09-09 Lam urance kill Balance/En d 2- 15:45:00 Briones deficit: pt durance 15:35: [id number] 00 Gait/Locomo knowledge/s PT/OT: Resolve 2019-09-09 Lam tion kill Gait/Locom d 2-05 15:45:00 Briones problems deficit: pt otion 15:35: [id number] 00 Gait/Locomo knowledge/s PT/OT: Resolve 2019-09-09 Lam tion kill Gait/Locom d 2-05 15:45:00 Briones problems deficit: cg otion 15:35: [id number] 00 Gait/Locomo gait PT/OT: Resolve 2019-09-09 Lam tion deficit Gait/Locom d 2- 15:45:00 Briones problems otion 15:35: [id number] 00 Respiratory oxygen Respirator Resolve 2019-09-02 Shelby [...] Unknown Reaction Ernestine Unknown 3-23 ([place]) [place] [id number] effexor Unknown Active Unknown Reaction Ernestine Unknown 3-23 ([place]) [place] [id number] compazine Unknown Active Unknown Reaction Ernestine Unknown 3-23 ([place]) [place] [id number] adhesive Unknown Active Unknown Reaction Ernestine tape Unknown 3-23 ([place]) [place] [id number] milk Unknown Active Unknown Reaction Ernestine Unknown 3-23 ([place]) [place] [id number] prochlorper Base Active Unknown extrapyramidal 2017-07 [place] azine Ingredient symptoms 1- Dilip venlafaxine Base Active Severe Hives, 2017-07 [place] Ingredient difficulty 08-09 Dilip breathing, itching promethazin Base Active Unknown extrapyramidal 2017-07 [place] e Ingredient symptoms - Dilip Gadolinium- Allergen [...]
[2019-10-14 15:46] LABS: ABS Basophils 0.2 10^3/ul (0-0.2); ABS Lymphocytes 1.1 10^3/ul (1.0-4.8); ABS Monocytes 0.7 10^3/ul (0-0.8); ABS Neutrophils 10.1 10^3/ul (1.5-7.7); ABS Nucleated RBC 0.1 10^3/ul; Eosinophil % 0.3 %; Hematocrit 34 % (35-47); Hemoglobin 10.6 g/dL (12.0-16.0); Lymphocyte % 9.1 %; Mean Corpuscular HGB Conc 32 g/dL (31-36); Mean Corpuscular Hemoglobin 26 pg (27-31); Mean Corpuscular Volume 83 fL (80-97); Mean Platelet Volume 8.3 fL (7.4-10.4); Nucleated Red Blood Cells % 0.5; Platelet Count 123 10^3/uL (150-450); Red Blood Count 4.06 10^6 /uL (3.70-4.87); Red Cell Distribution Width 33 % (10-15); White Blood Count 12.1 10^3/uL (3.5-10.8)
[2019-10-14 16:02] LABS: ALT 44 U/L (7-52); AST 54 U/L (13-39); Albumin 3.4 g/dL (3.2-5.2); Alkaline Phosphatase 157 U/L (34-104); Anion Gap 7 mmol/L (2-11); BUN/Creatinine Ratio 22.6 (8-20); Blood Urea Nitrogen 12 mg/dL (6-24); CO2 Carbon Dioxide 24 mmol/L (22-32); Calcium 8.9 mg/dL (8.6-10.3); Chloride 107 mmol/L (101-111); EGFR African American 153.1 (>60); EGFR Non-African American 126.5 (>60); Globulin 3.5 g/dL (2-4); Glucose 275 mg/dL (70-100); Potassium 3.6 mmol/L (3.5-5.0); Sodium 138 mmol/L (135-145); Total Protein 6.9 g/dL (6.4-8.9)
[2019-10-14 16:25] LABS: Acetaminophen < 15 mcg/mL; Salicylate < 2.50 mg/dL (<30)
[2019-10-14] MEDS ORDERED: Iodixanol* (CONTRAST) 320 MG/ML 100 ML SDV IV ONE (16:26)
[2019-10-14 18:28] LABS: Urine Appearance Clear; Urine Bilirubin Negative (Negative); Urine Blood Negative (Negative); Urine Color Yellow; Urine Glucose 3+(>=500 mg/dL) (Negative); Urine Ketones Negative (Negative); Urine Nitrite Negative (Negative); Urine Protein Negative (Negative); Urine Specific Gravity 1.016 (1.010-1.030); Urine Urobilinogen Positive (Negative)
[2019-10-14 18:48] LABS: Urine Benzodiazepine Screen Presumptive Positive (None Detect); Urine Opiates Screen None Detected (None Detect)
[2019-10-14] MEDS ORDERED: Acetaminophen TAB* 325 MG PO PRN (19:30)
[2019-10-14] MEDS ORDERED: Mometasone/Formoter 200/5 MDI INH PRN (19:33)
[2019-10-14] MEDS ORDERED: Docusate CAP* 100 MG PO PRN (19:33)
[2019-10-14] MEDS ORDERED: Albuterol 2.5 MG/3 ML NEB.SOL* (0.083%) INH PRN (19:33)
[2019-10-14] MEDS ORDERED: Vancomycin(*) 1,500 MG in NS 0.9% 250 ML* 250 ML IVPB ONE (20:00)
[2019-10-14] MEDS ORDERED: Vancomycin per Pharmacy* NOTE FOLLOW UP PRN (20:19)
[2019-10-14] MEDS ORDERED: Cefepime 1 GM IV - ED ONCE IV ONE (20:30)
[2019-10-14] MEDS ORDERED: Vancomycin(*) 2,000 MG in NS 0.9% 500 ML* 500 ML IVPB ONE (21:00)
[2019-10-14] MEDS ORDERED: NS 0.9% 1000 ML** 1,000 ML IV SCH (21:30)
[2019-10-14] MEDS: DULoxetine DR CAP* 60 MG CAP.DR PO SCH (22:54)
[2019-10-14] MEDS: acetaZOLAMIDE TAB* 250 MG PO SCH (23:23)
--- NOTE | 2019-10-14 23:42 | HP ---
CC: Dr. Hill* HISTORY AND PHYSICAL: DATE OF ADMISSION: 10/14/19 PROVIDER: Viky Michael NP. PRIMARY CARE PROVIDER: Dr. Hill. ATTENDING PHYSICIAN WHILE IN THE HOSPITAL: Dr. Carson* (dictated by Viky Michael NP). CHIEF COMPLAINT: Altered mental status. HISTORY OF PRESENT ILLNESS: Ms. Guevara is a 44-year-old female with past medical history significant for metastatic breast cancer, triple positive; pseudotumor cerebri; ovarian vein thrombosis, on Xarelto; history of tachycardia ; COPD; depression; chronic pain; migraines; and history of recent GI bleed, who was initially a CAT call in the oncology office today. She presented to the oncology office due to dehydration, was receiving fluids and potassium. The patient had an episode of altered mental status and unresponsiveness. So, a CAT call was called. She was brought to the emergency room for further evaluation. On arrival to the emergency room, the patient did have altered mentation. She was lethargic but did respond to questions. The patient does have a recent admission for narcotic use. She also reports that she has been short of breath over the last 3 days with some lightheadedness and not feeling well. Also reports multiple falls over the last 24 hours. While in the emergency room, the patient had routine lab return. She was found to have a mildly elevated white count of 12.1. The patient denies any fevers at home. She does report decreased appetite, but able to tolerate fluids. She denies any chest pain or edema, cough, hemoptysis. She does report some shortness of breath over the past 3 days. No nausea, diarrhea or abdominal pain , hematuria, dysuria, focal weakness, sensory loss, any visual complaints, dysphagia, arthralgias, myalgias, rashes, lesions, open sores, psychosis or anxiety.She does report that her last chemo treatment was last . She does report that she generally feels fatigued and tired after taking her morning medications. Due to these symptoms, Hospital Medicine was asked to see and evaluate her for admission. PAST MEDICAL HISTORY: Significant for: 1. Metastatic breast cancer, triple positive. 2. Pseudotumor cerebri. 3. Ovarian vein thrombosis, on Xarelto. 4. History of tachycardia. 5. COPD. 6. Depression. 7. Chronic pain. 8. Migraines. 9. History of recent GI bleed in the beginning of September of 2019. PAST SURGICAL HISTORY: 1. Back surgery x3. 2. x2. 3. Cholecystectomy. 4. Appendectomy. HOME MEDICATIONS: Home medications were taken from her discharge summary from 09/25/19. 1. Xanax 1 mg p.o. 4 times daily as needed. 2. Anastrazole 1 mg p.o. daily. 3. Rexulti 2 mg p.o. daily. 4. Symbicort 2 puffs inhaled twice daily as needed. 5. Soma 250 mg p.o. q.4 hours as needed. 6. Zyrtec 10 mg p.o. daily. 7. Docusate 200 mg p.o. twice daily. 8. Cymbalta 60 mg p.o. at bedtime. 9. Zofran 4 mg every 4 hours as needed for nausea or vomiting. 10. MiraLAX 17 g p.o. daily as needed for constipation. 11. Trazodone 200 mg p.o. daily. 12. Acetazolamide 250 mg p.o. twice daily. 13. Fentanyl patch 150 mcg every 72 hours. 14. Gabapentin 600 mg 3 times a day. 15. Keppra 1250 mg p.o. twice daily. 16. Omeprazole 40 mg p.o. daily. 17. Oxycodone 10 mg every 4 hours as needed for pain. 18. Potassium 40 mEq twice daily. 19. Xarelto 20 mg p.o. daily. ALLERGIES: She has allergy to VENLAFAXINE, GADOLINIUM containing contrast medium, LATEX, MILK, ADHESIVE, PROCHLORPERAZINE, PROMETHAZINE and ANTINAUSEA PILLS. FAMILY HISTORY: The patient reports no family history of heart disease, diabetes or cancer. SOCIAL HISTORY: The patient reports she smokes 5 cigarettes per day. Denies any alcohol or illicit drug use. She currently lives with her 2 sons. Surrogate decision maker in the event she is unable to make her own decisions is her father. She wishes to be a full code. REVIEW OF SYSTEMS: A 14-point review of systems was completed. All pertinent positives were mentioned in the HPI, otherwise were negative. PHYSICAL EXAMINATION GENERAL: Ms. Guevara is lethargic. She does open her eyes to verbal stimuli. She does answer questions appropriately, but falls asleep frequently during this interview. She does not appear to be in any acute distress. VITAL SIGNS: Blood pressure 152/72, heart rate is 94, respirations are 18, O2 saturation 93%, temperature 96.7. HEENT: Head is atraumatic, normocephalic. Eyes: EOMs are intact. Sclerae anicteric and not pale. Oral mucosa is dry. NECK: Supple. LUNGS: Clear with crackles in the bases bilaterally. CARDIAC: S1, S2. Regular rate and rhythm. No murmurs, rubs, or gallops. ABDOMEN: Obese, soft, and nontender. Bowel sounds are present x4. BACK: She does have a contusion noted to her right posterior lower rib. EXTREMITIES: There is no cyanosis. Pedal pulses are +2 bilaterally. She does have multiple ecchymotic areas noted to bilateral lower legs, knees, with abrasion to the left knee. NEUROLOGIC: She is drowsy, responds to verbal stimuli, tactile stimuli. She does answer questions appropriately. She is able to move all 4 extremities. She is able to follow commands. She does not have any gross deficits. SKIN: She has multiple ecchymotic areas noted to bilateral lower extremities and her right posterior lower ribs. DIAGNOSTIC STUDIES/LAB DATA: WBCs were 12.1, RBCs 4.06, hemoglobin 10.6, hematocrit was 34, MCVs were 83, MCH 26, platelet count was 123. Sodium 138, potassium 3.6, chloride was 107, carbon dioxide was 24, anion gap was 7, BUN was 12, creatinine 0.53, glucose was 275, calcium 8.9. T-bili was 1.20, ASTs were 54, ALTs were 44, alkaline phosphatase was 157, which is consistent with her baseline since 2019. She does have an ammonia level of 139. Urine was within normal limits with the exception urobilinogen was positive and glucose was 3+. Urine toxicology was positive for benzos, negative for opiates, salicylates were less than 2.50, acetaminophen was less than 15. She had a CT of the brain. Radiologist's impression: No acute intracranial abnormality. She had a CT of the chest and thorax. Radiologist's impression: The main pulmonary trunk and right and left main pulmonary arteries demonstrate no definite intraluminal filling defect to suggest central pulmonary embolism. The evaluation of the remaining pulmonary arteries is nondiagnostic due to poor enhancement and artifact. Small consolidations are identified in bilateral lung bases as well as the lingula which has progressed. Differential consideration, atelectasis change and pneumonia, consider correlation with followup CT. Additional patchy nonspecific ground-glass density is identified within the lungs bilaterally, possible etiology includes interstitial edema, atypical infection or pneumonitis. There is enlarged right subpectoral mass and enlarged lymph nodes. This is stable compared to prior study and additional enlarged stable right axillary and subpectoral lymph node is identified. Mild cardiomegaly. There is hepatosplenomegaly, sclerotic changes again visualized involving the T10 vertebral body. There is mild sclerosis involving the T1 vertebral body posterior. These findings are stable compared to prior study and could be consistent with the clinical history of metastatic disease. Additional findings as described above. She had an electrocardiogram, which showed sinus rhythm at a rate of 94, QTc of 520. ASSESSMENT AND PLAN: Ms. Guevara is a 44-year-old female with past medical history of metastatic breast cancer with metastatic disease to the brain and liver, pseudotumor cerebri, ovarian vein thrombosis, COPD, depression, chronic pain migraines, history of tachycardia and history of recent GI bleed in September 2019, who presented to the emergency room from oncology office with unresponsiveness. She will be admitted inpatient for: 1. Altered mental status. Likely related to hepatic encephalopathy though she does have multiple reasons for her altered mental status. She does have polypharmacy and is on several medications, oxycodone, fentanyl patch, Soma, gabapentin, which could all be contributing to her alteration in mentation. The elevated ammonia level of 139, dehydration and possible underlying pneumonia which are also likely contributing to her alteration in mentation. At the time of my evaluation, the patient is becoming more alert. She is answering questions appropriately. I am going to hold off on resuming her pain medications at this time until her mentation improves more.. I will observe her on telemetry overnight. We will start her on lactulose for her ammonia level and start antibiotic for her possible underlying pneumonia. 2. Sepsis. sepsis criteria with leukocytosis of white count of 12.1 tachycardia. with a heart rate is 95 and questionable bilateral pneumonia on the CT of the chest. The patient has reported shortness of breath x3 days. The patient recently had chemo, last dose was on of last week. Given the patient's recent chemo, shortness of breath, elevated white count and tachycardia, I think it is reasonable to start her on antibiotics for pneumonia. I will send blood cultures again for Strep pneumonia and Legionella. Lactic acid was ordered. I have talked to Dr. Gill as well and we will place her on vancomycin and cefepime. 3. Falls. The patient has had multiple falls over the last 24 hours. I suspect this could be related to her high ammonia level as well as possible polypharmacy effect. We will get a PT evaluation when able when the patient is more alert. 4. Metastatic breast cancer. The patient is currently being followed by Oncology and receiving chemo for metastatic breast cancer. I have consulted Dr. Gill who will see the patient in consultation tomorrow. 5. History of recent GI bleed. The patient had a GI bleed in September 2019. At that time, she was started on omeprazole. We will continue her omeprazole as previously prescribed. She was found to have a Hunter erosion associated with hiatal hernia, mild gastritis on her upper endoscopy in September 2019. 6. History of ovarian vein thrombosis. I will continue her on Xarelto as previously prescribed. 7. Chronic obstructive pulmonary disease. She should continue on Symbicort and have albuterol nebulizers as needed for shortness of breath or wheezing. 8 Depression. She will continue on Cymbalta as previously prescribed. 9. History of pseudotumor cerebri. I will continue her on acetazolamide. 10. Chronic pain. The patient does have chronic pain. She is on multiple medications; Soma, oxycodone and fentanyl. I am going to hold these medications until her mentation improves. 11. FEN: She can have a regular diet, 12. Code status: She is a full code. 13. DVT prophylaxis: She is on Xarelto. TIME SPENT: Time spent on this admission was 60 minutes, greater than half that time was spent at the bedside reviewing events leading thus far to her hospitalization, performing physical exam, and reviewing my plan of care. I have discussed this with my attending, Dr. Jean-Pierre Carson, he is in agreement with my plan. VIKY MICHAEL, COIN MACHINE COLLECTOR SUPERVISOR [id number]/[facility] #: [id number] SANKET
[2019-10-15] MEDS: Vancomycin(*) 1,000 MG in NS 0.9% 250 ML* 250 ML IV SCH ×2 (06:03→14:55)
[2019-10-15 07:17] LABS: ABS Eosinophils 0.2 10^3/ul (0-0.6); ABS Lymphocytes 1.4 10^3/ul (1.0-4.8); ABS Monocytes 0.6 10^3/ul (0-0.8); Hematocrit 32 % (35-47); Lymphocyte % 13.3 %; Mean Corpuscular HGB Conc 32 g/dL (31-36); Mean Corpuscular Hemoglobin 27 pg (27-31); Mean Corpuscular Volume 85 fL (80-97); Mean Platelet Volume 8.3 fL (7.4-10.4); Nucleated Red Blood Cells % 0.4; Platelet Count 99 10^3/uL (150-450); Red Blood Count 3.73 10^6 /uL (3.70-4.87); Red Cell Distribution Width 34 % (10-15); White Blood Count 10.3 10^3/uL (3.5-10.8)
[2019-10-15 07:31] LABS: BUN/Creatinine Ratio 22.9 (8-20); Calcium 8.8 mg/dL (8.6-10.3); EGFR African American 171.6 (>60); EGFR Non-African American 141.8 (>60); Potassium 2.9 mmol/L (3.5-5.0)
[2019-10-15 08:33] LABS: Magnesium 2.2 mg/dL (1.9-2.7)
[2019-10-15] MEDS: Cefepime 2 GM in Dextrose(*) 2 GM/50 ML BAG IV SCH ×2 (08:57→17:00)
[2019-10-15] MEDS: levETIRAcetam TAB* 500 MG PO SCH ×2 (09:00→20:07)
[2019-10-15] MEDS: Pantoprazole TAB * 40 MG TAB PO SCH (09:00)
[2019-10-15] MEDS: Cetirizine* 10 MG TAB PO SCH (09:00)
[2019-10-15] MEDS: Potassium Chlor TAB* 20 MEQ TAB.ER PO SCH (09:01)
[2019-10-15] MEDS: Lactulose* 15 ML UDC PO SCH ×3 (09:02→20:06)
[2019-10-15] MEDS: BREXPIPRAZOLE 2 MG PO SCH (09:02)
[2019-10-15] MEDS: acetaZOLAMIDE TAB* 250 MG PO SCH ×2 (09:03→20:06)
[2019-10-15] MEDS: CMCS:Anastrozole (NF) 1 MG TAB PO SCH (09:04)
--- NOTE | 2019-10-15 09:32 | PN ---
Progress Note - Progress Note Date of Service: 10/15/19 SOAP: Subjective: [This is a 44 year old female well known to oncology given history of metastatic triple positive breast cancer. She was most recently treated with Kadcyla on 10/08/19, Lupron 08/2019 and Anastrazole 1mg daily. She has had multiple previous admissions related to depression/medication overdose (intentional vs. accidental). Feeling better today, reports she is having less dyspnea and fatigue. Reports she "just wants to get home with this moreno virus that's going around. " She reports dull headache, otherwise no pain. ] Objective: Acetaminophen (Tylenol Tab*) 650 mg PO Q6H PRN PRN Reason: MILD PAIN or TEMP > 100.4 Acetazolamide (Diamox Tab*) 250 mg PO BID [facility] Last Admin: 10/15/19 09:03 Dose: 250 mg Albuterol (Ventolin 2.5 Mg/3 Ml Neb.Stacie*) 2.5 mg INH Q6H PRN PRN Reason: SHORTNESS OF BREATH Anastrozole (Arimidex (Nf)) 1 mg PO DAILY [facility] Last Admin: 10/15/19 09:04 Dose: 1 mg Brexpiprazole (Rexulti (Nf)) 2 mg PO DAILY [facility] Last Admin: 10/15/19 09:02 Dose: Not Given Cetirizine HCl (Zyrtec*) 10 mg PO DAILY [facility] Last Admin: 10/15/19 09:00 Dose: 10 mg Docusate Sodium (Colace Cap*) 200 mg PO BID PRN PRN Reason: CONSTIPATION Last Admin: 10/14/19 22:54 Dose: 200 mg Duloxetine HCl (Cymbalta Cap*) 60 mg PO BEDTIME [facility] Last Admin: 10/14/19 22:54 Dose: 60 mg Cefepime HCl (Maxipime 2 Gm In Dextrose Duplex (*)) 2 gm in 50 mls @ 100 mls/ hr IV Q8H [facility] Last Admin: 10/15/19 08:57 Dose: 100 mls/hr Vancomycin HCl 1,000 mg/ (Sodium Chloride) 250 mls @ 166.667 mls/hr IV Q8H [facility] Last Admin: 10/15/19 06:03 Dose: 166.667 mls/hr Potassium Chloride (Potassium Chloride 10 Meq/50 Ml Ivpremix*) 10 meq in 50 mls @ 50 mls/hr IV Q1H [facility] Stop: 10/15/19 12:59 Lactulose (Lactulose*) 15 ml PO TID [facility] Last Admin: 10/15/19 09:02 Dose: 15 ml Levetiracetam (Keppra Tab*) 1,250 mg PO BID [facility] Last Admin: 10/15/19 09:00 Dose: 1,250 mg Mometasone Furoate/Formoterol Fumar (Dulera 200/5 Mdi*) 2 puff INH BID PRN; Protocol PRN Reason: SOB/WHEEZING Pantoprazole Sodium (Protonix Tab*) 40 mg PO DAILY [facility] Last Admin: 10/15/19 09:00 Dose: 40 mg Pharmacy Consult (Vancomycin Per Pharmacy*) 1 note FOLLOW UP . PRN PRN Reason: PER PROTOCOL Pharmacy Profile Note (Vancomycin Trough Check) 1 note FOLLOW UP 0600 ONE Stop: 10/16/19 06:01 Potassium Chloride (Klor Con Er Tab*) 40 meq PO DAILY [facility] Last Admin: 10/15/19 09:01 Dose: 40 meq Rivaroxaban (Xarelto(*)) 20 mg PO QPM [facility] Laboratory Results - last 24 hr 10/14/19 10/14/19 10/14/19 15:29 15:29 15:31 WBC 12.1 H RBC 4.06 Hgb 10.6 L Hct 34 L MCV 83 MCH 26 L MCHC 32 RDW 33 H Plt Count 123 L MPV 8.3 Neut % (Auto) 83.3 Lymph % (Auto) 9.1 [place]ole % (Auto) 5.6 Eos % (Auto) 0.3 Baso % (Auto) 1.7 Absolute Neuts (auto) 10.1 H Absolute Lymphs (auto) 1.1 Absolute Monos (auto) 0.7 Absolute Eos (auto) 0.0 Absolute Basos (auto) 0.2 Absolute Nucleated RBC 0.1 Nucleated RBC % 0.5 Sodium 138 Potassium 3.6 Chloride 107 Carbon Dioxide 24 Anion Gap 7 BUN 12 Creatinine 0.53 Est GFR ( Amer) 153.1 Est GFR (Non-Af Amer) 126.5 BUN/Creatinine Ratio 22.6 H Glucose 275 H POC Glucose (mg/dL) 279 H Lactic Acid Calcium 8.9 Magnesium Total Bilirubin 1.20 H AST 54 H ALT 44 Alkaline Phosphatase 157 H Ammonia Total Protein 6.9 Albumin 3.4 Globulin 3.5 Albumin/Globulin Ratio 1.0 Urine Color Urine Appearance Urine pH Ur Specific [place] Urine Protein Urine Ketones Urine Blood Urine Nitrate Urine Bilirubin Urine Urobilinogen Ur Leukocyte Esterase Urine Glucose Salicylates < 2.50 Urine Opiates Screen Acetaminophen < 15 Ur Barbiturates Screen Ur Phencyclidine Scrn Ur Amphetamines Screen U Benzodiazepines Scrn Urine Cocaine Screen U Cannabinoids Screen 10/14/19 10/14/19 10/14/19 18:05 18:10 18:10 WBC RBC Hgb Hct MCV MCH MCHC RDW Plt Count MPV Neut % (Auto) Lymph % (Auto) [place] % (Auto) Eos % (Auto) Baso % (Auto) Absolute Neuts (auto) Absolute Lymphs (auto) Absolute Monos (auto) Absolute Eos (auto) Absolute Basos (auto) Absolute Nucleated RBC Nucleated RBC % Sodium Potassium Chloride Carbon Dioxide Anion Gap BUN Creatinine Est GFR ( Amer) Est GFR (Non-Af Amer) BUN/Creatinine Ratio Glucose POC Glucose (mg/dL) Lactic Acid Calcium Magnesium Total Bilirubin AST ALT Alkaline Phosphatase Ammonia 139 H Total Protein Albumin Globulin Albumin/Globulin Ratio Urine Color Yellow Urine Appearance Clear Urine pH 7.0 Ur Specific [place] 1.016 Urine Protein Negative Urine Ketones Negative Urine Blood Negative Urine Nitrate Negative Urine Bilirubin Negative Urine Urobilinogen Positive A Ur Leukocyte Esterase Negative Urine Glucose 3+(>=500 mg/dl) A Salicylates Urine Opiates Screen None detected Acetaminophen Ur Barbiturates Screen None detected Ur Phencyclidine Scrn None detected Ur Amphetamines Screen None detected U Benzodiazepines Scrn Presumptive positive A Urine Cocaine Screen None detected U Cannabinoids Screen None detected 10/14/19 10/15/19 10/15/19 21:56 06:30 06:30 WBC 10.3 RBC 3.73 Hgb 10.0 L Hct 32 L MCV 85 MCH 27 MCHC 32 RDW 34 H Plt Count 99 L MPV 8.3 Neut % (Auto) 78.2 Lymph % (Auto) 13.3 [place] % (Auto) 6.1 Eos % (Auto) 2.0 Baso % (Auto) 0.4 Absolute Neuts (auto) 8.0 H Absolute Lymphs (auto) 1.4 Absolute Monos (auto) 0.6 Absolute Eos (auto) 0.2 Absolute Basos (auto) 0.0 Absolute Nucleated RBC 0.0 Nucleated RBC % 0.4 Sodium 141 Potassium 2.9 L Chloride 110 Carbon Dioxide 26 Anion Gap 5 BUN 11 Creatinine 0.48 L Est GFR ( Amer) 171.6 Est GFR (Non-Af Amer) 141.8 BUN/Creatinine Ratio 22.9 H Glucose 79 POC Glucose (mg/dL) Lactic Acid 1.0 Calcium 8.8 Magnesium 2.2 Total Bilirubin AST ALT Alkaline Phosphatase Ammonia Total Protein Albumin Globulin Albumin/Globulin Ratio Urine Color Urine Appearance Urine pH Ur Specific [place] Urine Protein Urine Ketones Urine Blood Urine Nitrate Urine Bilirubin Urine Urobilinogen Ur Leukocyte Esterase Urine Glucose Salicylates Urine Opiates Screen Acetaminophen Ur Barbiturates Screen Ur Phencyclidine Scrn Ur Amphetamines Screen U Benzodiazepines Scrn Urine Cocaine Screen U Cannabinoids Screen Vital Signs: Temp Pulse Resp BP Pulse Ox 97.9 F 89 16 124/60 98 10/15/19 08:22 10/15/19 08:22 10/15/19 08:22 10/15/19 08:22 10/15/19 08:22 [Exam: General- in no acute distress, resting comfortably in bed. HEENT- normocephalic/atraumatic, aomi. Resp- regular, unlabored. lungs clear to auscultation. Cardiac- regular, S1S2. Extremities- no edema noted. PP+=bilaterally. Neuro: A&O to person, place, date. Speech clear. Answers questions appropriately.] Assessment: [44 year old female admitted on 10/14/19 for altered mental status. Patient is known to oncology services due to metastatic breast cancer currently treated with Kadcyla 3.6mg/kg IV every 3 weeks (last given 10/08/19), Lupon 11.25mg injection every 3 months and Anastrazole 1mg daily. She was seen in [facility] on 10/13 for IV hydration/electrolyte replacement and was found to be lethargic and unable to respond to verbal stimuli. A CAT call was placed and she was transported to the ED and ultimately admitted to inpatient. CT brain read as normal, CT chest showed possible bilateral pneumonia. She was started on IV vancomycin and cefepime given these results in addition to elevated WBC of 12K. Today she reports she is feeling better, she is feeling less dyspnea with addition of 2L supplemental 02 via [place]. She reports she is ready to go home. She reports dull headache but otherwise no pain.] Plan: [1. Altered Mental Status -likely multifactoral (pneumonia, polypharmacy, known metastatic disease to brain) improved today. -Ammonia levels elevated (has known liver disease); agree with decision to continue lactulose per hospitalist recommendation. 2. Pneumonia -continue Vancomycin per pharmacy and Cefepime 2g IV Q8H. -continue supplemental oxygen as needed (2L via [place] currently) -continue Ventolin 2.5mg nebulizer q4H PRN and Dulera 200/5 MDI twice daily. -continue to monitor CBC daily 3. Hypokalemia -IV potassium 30mEq today -continue PO potassium 40mEq daily. -continue to monitor CMP daily 4. Pseudotumor cerebri -continue acetazolamide 250mg BID as prescribed. 5. Depression -Continue cymbalta 60mg daily as prescribed 6. Pain -Would continue Acetaminophen 650mg q6H PRN pain. 7. Metastatic Breast Cancer -Kadcyla every 3 weeks, due 10/29/19, Lupron due in November 2019. -continue AI (anastrazole) daily as prescribed - oncology will continue to follow as inpatient.] Dispo: Continue inpatient management with IV hydration, antibiotics. Patient is not clinically appropriate for outpatient management at this time despite her request to be discharged. Management per hospitalist recommendations.
[2019-10-15] MEDS: KCL 10 MEQ/50 ML IVPREMIX* 10 MEQ/50 ML BAG IV SCH ×3 (10:56→13:36)
[2019-10-15] MEDS ORDERED: Potassium Chloride* LIQUID 20 MEQ/15 ML UDC PO ONE (11:34)
--- NOTE | 2019-10-15 11:43 | PN ---
Subjective Date of Service: 10/15/19 Interval History: afebrile, no acute events overnight. still feels some SOB. subjective f/c x 3 days. denies cough. got flu shot. Attests to V[place] and muscle aches. Last BM was few days ago. smoking 4-5 cigs daily Fell 3x in last few days. Denies LOC. rarely used her walker at home. Objective Active Medications: Acetaminophen (Tylenol Tab*) 650 mg PO Q6H PRN PRN Reason: MILD PAIN or TEMP > 100.4 Acetazolamide (Diamox Tab*) 250 mg PO BID [facility] Last Admin: 10/15/19 09:03 Dose: 250 mg Albuterol (Ventolin 2.5 Mg/3 Ml Neb.Stacie*) 2.5 mg INH Q6H PRN PRN Reason: SHORTNESS OF BREATH Anastrozole (Arimidex (Nf)) 1 mg PO DAILY [facility] Last Admin: 10/15/19 09:04 Dose: 1 mg Brexpiprazole (Rexulti (Nf)) 2 mg PO DAILY [facility] Last Admin: 10/15/19 09:02 Dose: Not Given Cetirizine HCl (Zyrtec*) 10 mg PO DAILY [facility] Last Admin: 10/15/19 09:00 Dose: 10 mg Docusate Sodium (Colace Cap*) 200 mg PO BID PRN PRN Reason: CONSTIPATION Last Admin: 10/14/19 22:54 Dose: 200 mg Duloxetine HCl (Cymbalta Cap*) 60 mg PO BEDTIME [facility] Last Admin: 10/14/19 22:54 Dose: 60 mg Cefepime HCl (Maxipime 2 Gm In Dextrose Duplex (*)) 2 gm in 50 mls @ 100 mls/ hr IV Q8H [facility] Last Admin: 10/15/19 08:57 Dose: 100 mls/hr Vancomycin HCl 1,000 mg/ (Sodium Chloride) 250 mls @ 166.667 mls/hr IV Q8H [facility] Last Admin: 10/15/19 06:03 Dose: 166.667 mls/hr Potassium Chloride (Potassium Chloride 10 Meq/50 Ml Ivpremix*) 10 meq in 50 mls @ 50 mls/hr IV Q1H [facility] Stop: 10/15/19 12:59 Last Admin: 10/15/19 10:56 Dose: 50 mls/hr Lactulose (Lactulose*) 15 ml PO TID [facility] Last Admin: 10/15/19 09:02 Dose: 15 ml Levetiracetam (Keppra Tab*) 1,250 mg PO BID [facility] Last Admin: 10/15/19 09:00 Dose: 1,250 mg Mometasone Furoate/Formoterol Fumar (Dulera 200/5 Mdi*) 2 puff INH BID PRN; Protocol PRN Reason: SOB/WHEEZING Pantoprazole Sodium (Protonix Tab*) 40 mg PO DAILY [facility] Last Admin: 10/15/19 09:00 Dose: 40 mg Pharmacy Consult (Vancomycin Per Pharmacy*) 1 note FOLLOW UP . PRN PRN Reason: PER PROTOCOL Pharmacy Profile Note (Vancomycin Trough Check) 1 note FOLLOW UP 06 ONE Stop: 10/16/19 06:01 Potassium Chloride (Klor Con Er Tab*) 40 meq PO DAILY [facility] Last Admin: 10/15/19 09:01 Dose: 40 meq Rivaroxaban (Xarelto(*)) 20 mg PO QPM [facility] Vital Signs - 8 hr 10/15/19 08:22 Temperature 97.9 F Pulse Rate 89 Respiratory 16 Rate Blood Pressure 124/60 (mmHg) O2 Sat by Pulse 98 Oximetry Oxygen Devices in Use Now: Nasal Cannula Appearance: NAD, left lateral decubitus in bed. Eyes: No Scleral Icterus Ears/Nose/Mouth/Throat: NL Teeth, Lips, Gums Neck: NL Appearance and Movements; NL JVP Respiratory: Symmetrical Chest Expansion and Respiratory Effort, Clear to Auscultation Cardiovascular: NL Sounds; No Murmurs; No JVD Abdominal: NL Sounds; No Tenderness; No Distention, No Hepatosplenomegaly Extremities: No Edema Skin: No Rash or Ulcers Neurological: Alert and Oriented x 3, - - no asterixis Nutrition: Taking PO's Result Diagrams: 10/15/19 06:30 10/15/19 06:30 Additional Lab and Data: Laboratory Results - last 24 hr 10/14/19 10/14/19 10/14/19 18:05 18:10 18:10 WBC RBC Hgb Hct MCV MCH MCHC RDW Plt Count MPV Neut % (Auto) Lymph % (Auto) [place] % (Auto) Eos % (Auto) Baso % (Auto) Absolute Neuts (auto) Absolute Lymphs (auto) Absolute Monos (auto) Absolute Eos (auto) Absolute Basos (auto) Absolute Nucleated RBC Nucleated RBC % Sodium Potassium Chloride Carbon Dioxide Anion Gap BUN Creatinine Est GFR ( Amer) Est GFR (Non-Af Amer) BUN/Creatinine Ratio Glucose Lactic Acid Calcium Magnesium Ammonia 139 H C-Reactive Protein Urine Color Yellow Urine Appearance Clear Urine pH 7.0 Ur Specific [place]ona 1.016 Urine Protein Negative Urine Ketones Negative Urine Blood Negative Urine Nitrate Negative Urine Bilirubin Negative Urine Urobilinogen Positive A Ur Leukocyte Esterase Negative Urine Glucose 3+(>=500 mg/dl) A Urine Opiates Screen None detected Ur Barbiturates Screen None detected Ur Phencyclidine Scrn None detected Ur Amphetamines Screen None detected U Benzodiazepines Scrn Presumptive positive A Urine Cocaine Screen None detected U Cannabinoids Screen None detected Influenza A (Rapid) Influenza B (Rapid) 10/14/19 10/15/19 10/15/19 21:56 06:30 06:30 WBC 10.3 RBC 3.73 Hgb 10.0 L Hct 32 L MCV 85 MCH 27 MCHC 32 RDW 34 H Plt Count 99 L MPV 8.3 Neut % (Auto) 78.2 Lymph % (Auto) 13.3 [place] % (Auto) 6.1 Eos % (Auto) 2.0 Baso % (Auto) 0.4 Absolute Neuts (auto) 8.0 H Absolute Lymphs (auto) 1.4 Absolute Monos (auto) 0.6 Absolute Eos (auto) 0.2 Absolute Basos (auto) 0.0 Absolute Nucleated RBC 0.0 Nucleated RBC % 0.4 Sodium 141 Potassium 2.9 L Chloride 110 Carbon Dioxide 26 Anion Gap 5 BUN 11 Creatinine 0.48 L Est GFR ( Amer) 171.6 Est GFR (Non-Af Amer) 141.8 BUN/Creatinine Ratio 22.9 H Glucose 79 Lactic Acid 1.0 Calcium 8.8 Magnesium 2.2 Ammonia C-Reactive Protein 26.35 H Urine Color Urine Appearance Urine pH Ur Specific Ramona Urine Protein Urine Ketones Urine Blood Urine Nitrate Urine Bilirubin Urine Urobilinogen Ur Leukocyte Esterase Urine Glucose Urine Opiates Screen Ur Barbiturates Screen Ur Phencyclidine Scrn Ur Amphetamines Screen U Benzodiazepines Scrn Urine Cocaine Screen U Cannabinoids Screen Influenza A (Rapid) Influenza B (Rapid) 10/15/19 10/15/19 09:00 13:35 WBC RBC Hgb Hct MCV MCH MCHC RDW Plt Count MPV Neut % (Auto) Lymph % (Auto) [place] % (Auto) Eos % (Auto) Baso % (Auto) Absolute Neuts (auto) Absolute Lymphs (auto) Absolute Monos (auto) Absolute Eos (auto) Absolute Basos (auto) Absolute Nucleated RBC Nucleated RBC % Sodium Potassium Chloride Carbon Dioxide Anion Gap BUN Creatinine Est GFR ( Amer) Est GFR (Non-Af Amer) BUN/Creatinine Ratio Glucose Lactic Acid Calcium Magnesium Ammonia 134 H C-Reactive Protein Urine Color Urine Appearance Urine pH Ur Specific [place] Urine Protein Urine Ketones Urine Blood Urine Nitrate Urine Bilirubin Urine Urobilinogen Ur Leukocyte Esterase Urine Glucose Urine Opiates Screen Ur Barbiturates Screen Ur Phencyclidine Scrn Ur Amphetamines Screen U Benzodiazepines Scrn Urine Cocaine Screen U Cannabinoids Screen Influenza A (Rapid) Negative Influenza B (Rapid) Negative Microbiology and Other Data: Microbiology 10/15/19 00:00 Urine Legionella Urinary Antigen - Final Negative Legionella Antigen 10/15/19 00:00 Urine Streptococcus pneumoniae Ag Screen - Final Negative S. 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 Mild leukocytosis (12.1), and limited CTA chest with progressed consolidation at b/l bases + lingula and patchy ggo. Ammonia 139. Polypharmacy. Was started on Vanc/cefepime for potential pneumonia. - Patient Problems (1) Altered mental status Current Visit: Yes Status: Acute Code(s): R41.82 - ALTERED MENTAL STATUS, UNSPECIFIED SNOMED Code(s): 257991859 Comment: Multiple etiologies: hepatic encephalopathy, polypharmacy, toxic- metabolic encephaolopathy secondary to potential pneumonia, continue lactulose and would continue on discharge. had mild leukocytosis to 12.1, no lactic acidosis. no fever, HR>90. altered mental status. CRP slightly elevated. continue cefepime for now but will stop vancomycin (got 3 doses already) and f/u MRSA nares. (2) Hepatic encephalopathy Current Visit: Yes Status: Acute Code(s): K72.90 - HEPATIC FAILURE, UNSPECIFIED WITHOUT COMA SNOMED Code(s): 30823847 Comment: lactulose as above. Imaging with 1.0 cm liver nodule on CT c/a/p on 09/08/19. Seems stable on current chemotherapy. Back in 2017 had 6 subcentimeter lesions on PET and liver US. (3) Shortness of breath Current Visit: Yes Status: Acute Code(s): R06.02 - SHORTNESS OF BREATH SNOMED Code(s): 084940652 Comment: Continue cefepime for now. Stop vanc. CTA chest with increased but still small infiltrates at b/l bases and lingula. some ggo. She is current smoker. Not currently wheezing. Continue inhalers (but make formulary substitute dulera standing instead of prn). could consider covid-19 rule out though no fevers. (4) Metastatic breast cancer Current Visit: No Status: Acute Code(s): C50.919 - MALIGNANT NEOPLASM OF UNSP SITE OF UNSPECIFIED FEMALE BREAST SNOMED Code(s): 255728706 Comment: triple + Followed by Dr Hill. Current treatment with ado-trastuzumab emtansine (Kadcyla) q 3 weeks, Lupron monthly, anastrazole daily (5) Chronic pain Current Visit: No Status: Acute Code(s): G89.29 - OTHER CHRONIC PAIN SNOMED Code(s): 27823707 Comment: home fentanyl was held on admission given AMS, consider add back at lower dose on d/c. Heme/onc has been weaning down (from 250 to 150 on 08/15 discharge) (6) DVT prophylaxis Current Visit: No Status: Acute Code(s): JHD1240 - SNOMED Code(s): 512001274 Comment: Gisell (7) Full code status Current Visit: No Status: Acute Code(s): Z78.9 - OTHER SPECIFIED HEALTH STATUS SNOMED Code(s): 734604877 (8) PTSD (post-traumatic stress disorder) Current Visit: No Status: Acute Priority: Low Code(s): F43.10 - POST- TRAUMATIC STRESS DISORDER, UNSPECIFIED SNOMED Code(s): 34228254 Comment: continue rexulti, duloxetine. (9) Thrombosis of ovarian vein Current Visit: No Status: Acute Code(s): I82.890 - ACUTE EMBOLISM AND THROMBOSIS OF OTHER SPECIFIED VEINS SNOMED Code(s): 95027466 Comment: Cont Xarelto (10) Pseudotumor cerebri Current Visit: Yes Status: Acute Code(s): G93.2 - BENIGN INTRACRANIAL HYPERTENSION SNOMED Code(s): 69773052 Comment: continue acetazolamide Status and Disposition: medicine inpatient.
[2019-10-15 11:51] LABS: C Reactive Protein 26.35 mg/L (<8.01)
[2019-10-15 14:05] LABS: Influenza A Molecular Negative (Negative); Influenza B Molecular Negative (Negative)
[2019-10-15] MEDS ORDERED: Rivaroxaban TAB(*) 20 MG TAB PO SCH (18:00)
[2019-10-15] MEDS: DULoxetine DR CAP* 60 MG CAP.DR PO SCH (20:07)
[2019-10-15] MEDS: Mometasone/Formoter 200/5 MDI INH SCH ×2 (20:17→21:06)
[2019-10-15] MEDS ORDERED: oxyCODONE TAB* 5 MG TAB PO ONE (22:50)
[2019-10-16] MEDS: Cefepime 2 GM in Dextrose(*) 2 GM/50 ML BAG IV SCH ×2 (00:49→08:59)
[2019-10-16 05:53] LABS: Hematocrit 33 % (35-47); Hemoglobin 10.1 g/dL (12.0-16.0); Mean Corpuscular HGB Conc 31 g/dL (31-36); Mean Corpuscular Hemoglobin 27 pg (27-31); Mean Corpuscular Volume 85 fL (80-97); Mean Platelet Volume 8.1 fL (7.4-10.4); Platelet Count 91 10^3/uL (150-450); Red Cell Distribution Width 35 % (10-15)
[2019-10-16] MEDS ORDERED: Vancomycin Trough Check NOTE FOLLOW UP ONE (06:00)
[2019-10-16 06:09] LABS: Albumin 3.1 g/dL (3.2-5.2); BUN/Creatinine Ratio 13.2 (8-20); Calcium 8.9 mg/dL (8.6-10.3); EGFR African American 153.1 (>60); EGFR Non-African American 126.5 (>60); Potassium 2.9 mmol/L (3.5-5.0); Total Bilirubin 1.1 mg/dL (0.2-1.0); Total Protein 6.1 g/dL (6.4-8.9)
[2019-10-16 06:13] LABS: ABS Basophils 0.1 10^3/ul (0-0.2); ABS Eosinophils 0.2 10^3/ul (0-0.6); ABS Lymphocytes 1.2 10^3/ul (1.0-4.8); ABS Monocytes 0.5 10^3/ul (0-0.8); Eosinophil % 2.8 %; Lymphocyte % 20.4 %; Nucleated Red Blood Cells % 0.4; Polychromasia 1+; Spherocytes 1+
[2019-10-16] MEDS ORDERED: oxyCODONE TAB* 5 MG TAB PO PRN (08:17)
[2019-10-16] MEDS: Mometasone/Formoter 200/5 MDI INH SCH (08:50)
--- NOTE | 2019-10-16 08:51 | PN ---
Progress Note - Progress Note Date of Service: 10/16/19 SOAP: Subjective: [Patient reports she is feeling much better today. She reports overnight she was having increased back pain from laying in the bed, was able to control the pain with one dose of Oxycodone 10mg. She reports she has no pain this morning. She reports she has no headache this morning.] Objective: [ Acetaminophen (Tylenol Tab*) 650 mg PO Q6H PRN PRN Reason: MILD PAIN or TEMP > 100.4 Last Admin: 10/15/19 20:16 Dose: 650 mg Acetazolamide (Diamox Tab*) 250 mg PO BID [facility] Last Admin: 10/15/19 20:06 Dose: 250 mg Albuterol (Ventolin 2.5 Mg/3 Ml Neb.Stacie*) 2.5 mg INH Q6H PRN PRN Reason: SHORTNESS OF BREATH Anastrozole (Arimidex (Nf)) 1 mg PO DAILY [facility] Last Admin: 10/15/19 09:04 Dose: 1 mg Brexpiprazole (Rexulti (Nf)) 2 mg PO DAILY [facility] Last Admin: 10/15/19 09:02 Dose: Not Given Cetirizine HCl (Zyrtec*) 10 mg PO DAILY [facility] Last Admin: 10/15/19 09:00 Dose: 10 mg Docusate Sodium (Colace Cap*) 200 mg PO BID PRN PRN Reason: CONSTIPATION Last Admin: 10/14/19 22:54 Dose: 200 mg Duloxetine HCl (Cymbalta Cap*) 60 mg PO BEDTIME [facility] Last Admin: 10/15/19 20:07 Dose: 60 mg Cefepime HCl (Maxipime 2 Gm In Dextrose Duplex (*)) 2 gm in 50 mls @ 100 mls/ hr IV Q8H [facility] Last Admin: 10/16/19 00:49 Dose: 100 mls/hr Potassium Chloride (Potassium Chloride 10 Meq/50 Ml Ivpremix*) 10 meq in 50 mls @ 50 mls/hr IV Q1H [facility] Stop: 10/16/19 11:59 Lactulose (Lactulose*) 15 ml PO TID [facility] Last Admin: 10/15/19 20:06 Dose: 15 ml Levetiracetam (Keppra Tab*) 1,250 mg PO BID [facility] Last Admin: 10/15/19 20:07 Dose: 1,250 mg Mometasone Furoate/Formoterol Fumar (Dulera 200/5 Mdi*) 2 puff INH BID [facility]; Protocol Last Admin: 10/16/19 08:50 Dose: 2 puff Nystatin (Nystatin Suspension*) 500,000 units PO QID [facility] Stop: 10/23/19 08:17 Oxycodone HCl (Roxycodone Tab*) 10 mg PO Q4H PRN PRN Reason: PAIN - MODERATE Pantoprazole Sodium (Protonix Tab*) 40 mg PO DAILY [facility] Last Admin: 10/15/19 09:00 Dose: 40 mg Potassium Chloride (Klor Con Er Tab*) 40 meq PO DAILY [facility] Last Admin: 10/15/19 09:01 Dose: 40 meq Rivaroxaban (Xarelto(*)) 20 mg PO QPM [facility] Last Admin: 10/15/19 16:59 Dose: 20 mg Laboratory Results - last 24 hr 10/15/19 10/15/19 10/15/19 06:30 09:00 13:35 WBC RBC Hgb Hct MCV MCH MCHC RDW Plt Count MPV Neut % (Auto) Lymph % (Auto) [place] % (Auto) Eos % (Auto) Baso % (Auto) Absolute Neuts (auto) Absolute Lymphs (auto) Absolute Monos (auto) Absolute Eos (auto) Absolute Basos (auto) Absolute Nucleated RBC Nucleated RBC % Polychromasia Anisocytosis Spherocytes Sodium 141 Potassium 2.9 L Chloride 110 Carbon Dioxide 26 Anion Gap 5 BUN 11 Creatinine 0.48 L Est GFR ( Amer) 171.6 Est GFR (Non-Af Amer) 141.8 BUN/Creatinine Ratio 22.9 H Glucose 79 Calcium 8.8 Magnesium 2.2 Total Bilirubin AST ALT Alkaline Phosphatase Ammonia 134 H C-Reactive Protein 26.35 H Total Protein Albumin Globulin Albumin/Globulin Ratio Influenza A (Rapid) Negative Influenza B (Rapid) Negative 10/16/19 10/16/19 05:32 05:32 WBC 6.0 RBC 3.80 Hgb 10.1 L Hct 33 L MCV 85 MCH 27 MCHC 31 RDW 35 H Plt Count 91 L MPV 8.1 Neut % (Auto) 66.8 Lymph % (Auto) 20.4 [place] % (Auto) 8.9 Eos % (Auto) 2.8 Baso % (Auto) 1.1 Absolute Neuts (auto) 4.0 Absolute Lymphs (auto) 1.2 Absolute Monos (auto) 0.5 Absolute Eos (auto) 0.2 Absolute Basos (auto) 0.1 Absolute Nucleated RBC 0.0 Nucleated RBC % 0.4 Polychromasia 1+ Anisocytosis 3+ Spherocytes 1+ Sodium 140 Potassium 2.9 L Chloride 109 Carbon Dioxide 25 Anion Gap 6 BUN 7 Creatinine 0.53 Est GFR ( Amer) 153.1 Est GFR (Non-Af Amer) 126.5 BUN/Creatinine Ratio 13.2 Glucose 123 H Calcium 8.9 Magnesium 2.0 Total Bilirubin 1.10 H AST 102 H ALT 43 Alkaline Phosphatase 136 H Ammonia C-Reactive Protein Total Protein 6.1 L Albumin 3.1 L Globulin 3.0 Albumin/Globulin Ratio 1.0 Influenza A (Rapid) Influenza B (Rapid) Vital Signs Temp Pulse Resp BP Pulse Ox 97.8 F 102 18 140/76 96 10/16/19 08:04 10/16/19 08:04 10/16/19 08:04 10/16/19 08:04 10/16/19 08:04 Exam: General- pleasant, cooperative. Sitting up in bed, in no acute distress. HEENT- normocephalic/atraumatic. AOMI. PERRLA. Resp- RRR, non-labored. lungs clear to auscultation bilaterally. Cardiac- HRR, S1S2. Extremities- mild non-pitting edema noted to bilateral lower extremities. PP+= bilaterally. Neuro- A&0x3.] Assessment: [44 year old female well known by oncology with history of metastatic breast cancer admitted to inpatient on 10/14/19 for altered mental status. She is currently being treated for pneumonia with IV cefepime 2g IV q8hr. Her pain has been well managed with PRN Acetaminophen and one time dose of Oxycodone 10mg on the evening of 10/15/2019. She is feeling better today, denies dyspnea. ] Plan: [1. Pneumonia -would recommend discharge home -transition to po antibiotics (Augmentin 875mg twice daily x 7 days). -continue Ventolin nebulizer and Dulera MDI as prescribed 2. Pseudotumor cerebri -would recommend continue home medications as prescribed (acetazolamide 250mg bid) 3. Hypokalemia - 40mEq IV today - continue daily 40mEq at home 4. Altered Mental Status -improved while inpatient -continue Lactulose upon discharge, but would decrease to 15mL BID. 5. Pain - Acetaminophen 650mg q4hr PRN - Oxycodone 10mg q6hr PRN - Fentanyl decrease to 100mcg q72hr - Gabapentin 600mg TID - Soma 250mg q4hr PRN Disposition: medically stable and ready for discharge if hospitalist agrees. Would recommend patient contact [facility] for follow-up appt within the next 1-3 days.]
[2019-10-16] MEDS: Pantoprazole TAB * 40 MG TAB PO SCH (08:55)
[2019-10-16] MEDS: Potassium Chlor TAB* 20 MEQ TAB.ER PO SCH (08:55)
[2019-10-16] MEDS: levETIRAcetam TAB* 500 MG PO SCH (08:56)
[2019-10-16] MEDS: Cetirizine* 10 MG TAB PO SCH (08:56)
[2019-10-16] MEDS: Nystatin SUSPENSION* 100000 UNITS/ML 5 ML UDC PO SCH ×2 (08:59→12:14)
[2019-10-16] MEDS: acetaZOLAMIDE TAB* 250 MG PO SCH (09:01)
[2019-10-16] MEDS: BREXPIPRAZOLE 2 MG PO SCH (09:01)
[2019-10-16] MEDS: CMCS:Anastrozole (NF) 1 MG TAB PO SCH (09:01)
[2019-10-16] MEDS: Lactulose* 15 ML UDC PO SCH ×3 (09:01→13:12)
[2019-10-16] MEDS: KCL 10 MEQ/50 ML IVPREMIX* 10 MEQ/50 ML BAG IV SCH ×3 (09:57→12:14)
[2019-10-16] MEDS ORDERED: KCL 20 MEQ/100 ML IVPREMIX* 20 MEQ/100 ML BAG IV SCH (12:00)
[2019-10-16 12:09] VITALS: BP 133/75
[2019-10-16 13:04] LABS: BUN/Creatinine Ratio 13.6 (8-20); Calcium 9.6 mg/dL (8.6-10.3); EGFR African American 135.3 (>60); EGFR Non-African American 111.8 (>60); Potassium 3.4 mmol/L (3.5-5.0)
--- NOTE | 2019-10-17 10:51 | DS ---
CC: Dr. Hill * DISCHARGE SUMMARY: DATE OF ADMISSION: 10/14/19 DATE OF DISCHARGE: 10/16/19 PRIMARY DIAGNOSIS: Sepsis due to bibasilar pneumonia with infectious encephalopathy. SECONDARY DIAGNOSES: 1. Metastatic breast cancer ER/AR/HER-2 positive. 2. Chronic pain syndrome. 3. Pseudotumor cerebri. 4. History of ovarian vein thrombosis, on anticoagulation. 5. Tachycardia. 6. Chronic obstructive pulmonary disease. 7. Depression. 8. Migraines. 9. Recent gastrointestinal bleed in September 2019. 10. Polypharmacy. 11. Type 2 diabetes. 12. Thrush. 13. Cirrhosis with chronic hepatic encephalopathy. MEDICATIONS ON DISCHARGE: 1. Albuterol inhaler 2 puffs four times a day p.r.n. 2. Anastrazole 1 mg p.o. daily. 3. Rexulti 2 mg p.o. daily. 4. Budesonide/salmeterol 160/4.5 two inhalations b.i.d. 5. Cetirizine 10 mg p.o. daily. 6. Dexamethasone 2 mg p.o. daily. 7. Docusate 200 mg p.o. b.i.d. 8. Cymbalta 60 mg p.o. q.p.m. 9. Glyburide 2.5 mg p.o. q.a.m. 10. Omeprazole 40 mg p.o. daily. 11. Ondansetron 4 mg p.o. up to 6 times a day p.r.n. nausea. 12. Potassium chloride 40 mEq p.o. daily. 13. Acetaminophen as needed. 14. Acetazolamide 250 mg p.o. b.i.d. 15. Cefdinir 300 mg p.o. b.i.d. for 6 days. 16. Lactulose 15 mL p.o. four times a day, hold for more than 4 loose stools per day. 17. Levetiracetam 1000 mg p.o. b.i.d. 18. Nystatin suspension 500,000 units swish and swallow four times a day for 7 days. 19. Oxycodone 10 mg p.o. q.4 hours p.r.n. pain. 20. Xarelto 20 mg p.o. daily. CONSULTATIONS: Dr. Zhao of Oncology. PROCEDURES: None. COMPLICATIONS: None. HOSPITAL COURSE: A 44-year-old woman with a complicated medical history, presented to [facility] with a CAT call at the oncology office. She was confused and dehydrated and brought to the emergency department. She was initially lethargic and not answering questions and reported multiple falls. There was no reported fevers. Initial evaluation showed that she was afebrile with a pulse of 98, respirations of 17, oxygen saturation 91% on room air, 94% on 2 L and blood pressure was stable. Her white count was 12.1 on admission. She had sepsis initially, with tachycardia, hypoxia, leukocytosis, and confusion. She has a mild normocytic anemia with a hemoglobin of around 10.1 and thrombocytopenia with platelets of 91 on discharge. She has hypokalemia and presented with potassium of 3.6, which fell to 2.9 and then opal to 3.4 during the admission. She had normal lactic acid. Her ammonia level was 139 on admission and was 134 on discharge. The patient does have a history of hepatic encephalopathy. Her ammonia levels have ranged between 57 to 117 prior. The patient's urine drug screen was negative for opiates and positive for benzodiazepines despite the fact that she takes opiates as needed and does not have any benzodiazepines on her admission medication list. Influenza A and B were negative. CT of the chest showed no pulmonary emboli. There were consolidation at both lung bases as well as lingula which have progressed. There were also some non- specific ground-glass densities in the lungs bilaterally. There is a right subpectoral mass, which was stable. There was hepatosplenomegaly. There is sclerotic changes in the T10 vertebral body and the T1 vertebral body. The patient was admitted for delirium and pneumonia. Legionella urinary antigen and streptococcal urinary antigen were negative. MRSA was not detected and blood cultures x2 were negative on discharge. The patient's pneumonia was treated with cefepime and 1 dose of vancomycin. Most of the patient's medication with neuropsychological effects were held due to her delirium. The patient made a rapid recovery of her mental status. She did not have any severe pulmonary symptoms such as shortness of breath or cough. Because she responded quickly to antibiotics a decision was made on day 2 not to test her for COVID-19 despite the pandemic. On discharge, the patient was tolerating food, ambulatory and cooperative, oriented to place and person. Dr. Zhao saw the patient on day of discharge and recommended reduced doses of fentanyl, gabapentin, Soma, etc. However, at the time of discharge, the patient was not receiving any of those medications and I elected to send her out on the above medication list with the knowledge that she may have complaints of pain that require re-initiation of fentanyl patches or Soma or gabapentin. This can be accomplished at the Oncology office. For her hepatic encephalopathy, this is of unknown etiology and I do not see any liver biopsies in the previous medical records. She was given lactulose 4 times a day and had more than 4 bowel movements on day of discharge. She was advised to take up to 4 times a day but stopped taking lactulose during the day if she has more than 4 to 5 bowel movements. DISPOSITION: Home, where she has assistance from her father. ACTIVITY: As tolerated. DIET: Diabetic. STATUS: Inpatient. CONDITION: Stable. FOLLOWUP: She has an appointment with Dr. Hill on 10/26/19 at 2:30 p.m. TIME SPENT: I spent more than 40 minutes with the patient and talked to the family and completing necessary paperwork for discharge on the day of discharge. [id number]/CPS #: [id number] MTDD
== END 2019-10-16 15:42 | disposition home health service (06) | DRG 139 ==
LOC: ED 15:13 → MEDTELE 19:30 → OBSVTOIN 20:00
PROVIDERS: ADMIT Family Medicine; ATTEND Internal Medicine
DX: J18.9 Pneumonia, unspecified organism (principal); G93.41 Metabolic encephalopathy; C79.31 Secondary malignant neoplasm of brain; C78.7 Secondary malignant neoplasm of liver and intrahepatic bile duct; J44.0 Chronic obstructive pulmonary disease with (acute) lower respiratory infection; D69.6 Thrombocytopenia, unspecified; C50.919 Malignant neoplasm of unspecified site of unspecified female breast; K72.90 Hepatic failure, unspecified without coma; K74.69 Other cirrhosis of liver; F32.9 Major depressive disorder, single episode, unspecified; B37.9 Candidiasis, unspecified; G43.709 Chronic migraine without aura, not intractable, without status migrainosus; E11.9 Type 2 diabetes mellitus without complications; S20.211A Contusion of right front wall of thorax, initial encounter; S80.212A Abrasion, left knee, initial encounter; E87.6 Hypokalemia; G93.2 Benign intracranial hypertension; G89.4 Chronic pain syndrome; E86.0 Dehydration; F43.10 Post-traumatic stress disorder, unspecified; F17.210 Nicotine dependence, cigarettes, uncomplicated; W18.30XA Fall on same level, unspecified, initial encounter; Y92.9 Unspecified place or not applicable; Z86.718 Personal history of other venous thrombosis and embolism; Z87.19 Personal history of other diseases of the digestive system; Z92.21 Personal history of antineoplastic chemotherapy; Z79.01 Long term (current) use of anticoagulants; Z79.899 Other long term (current) drug therapy; Z91.040 Latex allergy status; Z91.011 Allergy to milk products; Z88.8 Allergy status to other drugs, medicaments and biological substances; Z91.048 Other nonmedicinal substance allergy status
CPT/HCPCS: 36415; 70450; 71275; 80048; 80053; 80177; 80307; 80329; 81003; 82140; 83605; 83735; 85025; 86140; 87040; 87641; 87899; 93005; 96365; 96366; 99215; 99285; A9270-GY; G0463; G0480; J0692; J1642; J3370; J3480; Q9967

== ENCOUNTER 2019-10-20 21:26 | Emergency (ER) | payer OTHER ==
[2019-10-20] MEDS ORDERED: NS 0.9% 1000 ML** 1,000 ML IV ONE ×2 (21:33→22:29)
[2019-10-20] MEDS ORDERED: Ondansetron INJ* 2 MG/ML VIAL IV ONE ×2 (21:33→23:53)
--- NOTE | 2019-10-20 21:38 | ED ---
Nausea/Vomiting/Diarrhea HPI - HPI Summary HPI Summary: Patient with history of metastatic breast cancer receiving chemotherapy complains of uncontrolled nausea or vomiting starting this morning at 8 AM. Last chemotherapy 10/08/19. Patient has Zofran at home which did not provide relief. Patient denies fever, cough, sore throat, CP, SOB, abdominal pain, change in urine, change in BM. Admits to diarrhea 1 week as she is taking lactulose for elevated ammonia levels. [place] was [place] [facility] [place] related to [place] level. - History of Current Complaint Chief Complaint: EDNauseaVomitDiarrh Stated Complaint: NAUSEA/VOMITING PER PT Time Seen by Provider: 10/20/19 21:33 Hx Obtained From: Patient Onset/Duration: Sudden Onset, Lasting Hours Timing: Constant Severity Initially: Moderate Severity Currently: Moderate Pain Intensity: 6 Pain Scale Used: 0-10 Numeric Aggravating Factor(s): Food Alleviating Factor(s): Nothing Nausea/Vomiting Presence: Nauseated, Vomiting - Allergies/Home Medications Allergies/Adverse Reactions: Allergies Allergy/AdvReac Type Severity Reaction Status Date / Time Gadolinium-Containing Allergy Severe Anaphylatic Verified 10/20/19 21:34 Contrast Medi Shock venlafaxine Allergy Severe Hives/Diff. Verified 10/20/19 21:34 Breathing/I tching Latex, Natural Rubber Allergy Unknown Unknown Verified 10/20/19 21:34 Reaction Details milk Allergy Unknown Unknown Verified 10/20/19 21:34 Reaction Details Adhesive Tape Allergy skin break Verified 10/20/19 21:34 [Tegaderm Dressing] down prochlorperazine Allergy See Comment Verified 10/20/19 21:34 promethazine Allergy See Comment Verified 10/20/19 21:34 Home Medications: Home Medications DULoxetine DR CAP* [Cymbalta CAP*] 60 mg PO BEDTIME 05/11/18 [History Confirmed 10/20/19] Docusate CAP* [Colace Cap*] 200 mg PO BID PRN 04/14/19 [History Confirmed ] Cetirizine* [ZyrTEC 10 MG TAB*] 10 mg PO DAILY 07/06/19 [History Confirmed 10/19] Ondansetron TAB* [Zofran 4 MG Tab*] 4 mg PO .6X/DAY PRN 07/06/19 [History Confirmed 10/20/19] Budesonide/Formote 160/4.5(NF) [Symbicort 160/4.5 (NF)] 2 puff INH BID PRN 07/23 [History Confirmed 10/20/19] Brexpiprazole (Nf) [Rexulti] 2 mg PO DAILY 08/08/19 [History Confirmed 10/20/19] Rivaroxaban TAB(*) [Xarelto 20 mg] 20 mg PO DAILY tab 08/15/19 [Rx Confirmed ] acetaZOLAMIDE TAB* [Diamox Tab*] 250 mg PO BID #60 tab 08/15/19 [Rx Confirmed ] levETIRAcetam TAB* [Keppra TAB*] 1,000 mg PO BID #120 tab 08/15/19 [Rx Confirmed 10/20/19] oxyCODONE TAB* [Roxycodone TAB 5 mg*] 10 mg PO Q4H PRN #60 tab MDD 30 09/25/19 [ Rx Confirmed 10/20/19] Albuterol inh POWDER (NF) [Proair Respiclick] 1 puff INH Q6HR PRN 10/14/19 [ History Confirmed 10/20/19] Anastrozole (NF) [Arimidex (NF)] 1 mg PO DAILY 10/14/19 [History Confirmed 10/19] Dexamethasone TAB* [Decadron TAB*] 2 mg PO DAILY 10/14/19 [History Confirmed ] Omeprazole (Nf) [Prilosec (NF)] 40 mg PO DAILY 10/14/19 [History Confirmed 10/19] Potassium Chlor TAB* [Potassium Chlor TAB 20 MEQ*] 40 meq PO DAILY 10/14/19 [ History Confirmed 10/20/19] glyBURIDE TAB* [Diabeta TAB*] 2.5 mg PO QAM 10/14/19 [History Confirmed 10/20/19 ] Acetaminophen TAB* [Tylenol TAB*] 650 mg PO Q6H PRN tab 10/16/19 [Rx Confirmed 10/20/19] Cefdinir [Cefdinir 300 MG CAP] 300 mg PO BID #12 capsule 10/16/19 [Rx Confirmed 10/20/19] Nystatin SUSPENSION* 500,000 units PO QID #40 udc 10/16/19 [Rx Confirmed ] PMH/Surg Hx/FS Hx/Imm Hx Endocrine/Hematology History: Reports: Hx Diabetes - pt sts she takes no meds. Denies: Hx Anticoagulant Therapy, Hx Bone Marrow Disease, Hx Sickle Cell Disease, Hx Thyroid Disease, Hx Anemia, Other Endocrine/Hematological Disorders Cardiovascular History: Reports: Hx Congestive Heart Failure, Hx Deep Vein Thrombosis - Recent ovarian vein thrombosis, Hx Hypercholesterolemia, Other Cardiovascular Problems/Disorders - PT STATES DIFFICULTY WITH INJECTION FRACTION -HEART DAMAGE FROM CHEMO Denies: Hx Angina, Hx Auto Implanted Cardiovert Defib, Hx Cardiac Arrest, Hx Cardiomegaly, Hx Congenital Heart Disease, Hx Coronary Artery Disease, Hx Hypertension, Hx Myocardial Infarction, Hx Pacemaker/ICD, Hx Peripheral Vascular Disease, Hx Rheumatic Fever, Hx Syncope, Hx Valvular Heart Disease Respiratory History: Reports: Other Respiratory Problems/Disorders - SLEEPS WITH OXYGEN AT NIGHT 2L Denies: Hx Asthma, Hx Chronic Obstructive Pulmonary Disease (COPD), Hx Cystic Fibrosis, Hx Lung Cancer, Hx Pulmonary Edema, Hx Pulmonary Embolism, Hx Seasonal Allergies, Hx Sleep Apnea GI History: Reports: Other GI Disorders - history of ulcerative colitis Denies: Hx Cirrhosis, Hx Crohn's Disease, Hx Diverticulosis, Hx Gall Bladder Disease, Hx Gastroesophageal Reflux Disease, Hx Gastrointestinal Bleed, Hx Hiatal Hernia, Hx Irritable Bowel, Hx Jaundice, Hx Ulcer, Hx Urosepsis History: Denies: Hx Benign Prostatic Hyperplasia, Hx Dialysis, Hx Kidney Infection, Hx Kidney Stones, Hx Renal Disease, Other Problems/Disorders Musculoskeletal History: Reports: Hx Arthritis, Hx Back Problems Denies: Hx Bursitis, Hx Tendonitis, Other Musculoskeletal History Sensory History: Denies: Hx Cataracts, Hx Contacts or Glasses, Hx Glaucoma, Hx Vision Problem , Hx Hearing Aid, Hx Hearing Problem Opthamlomology History: Denies: Hx Cataracts, Hx Contacts or Glasses, Hx Glaucoma, Hx Vision Problem Neurological History: Reports: Hx Migraine, Hx Spinal Cord Injury - herniated disc Denies: Hx Dementia, Hx Headaches, Hx Nerve Disease, Hx Seizures, Hx Transient Ischemic Attacks (TIA), Other Neuro Impairments/Disorders Psychiatric History: Reports: Hx Anxiety, Hx Depression, Hx Post Traumatic Stress Disorder, Hx Suicide Attempt - states she has made three attempts; h/o overdose x 2 Denies: Hx Eating Disorder, Hx Panic Disorder, Hx Substance Abuse - Cancer History Cancer Type, Location and Year: 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 Hx Chemotherapy: Yes Hx Radiation Therapy: No - Surgical History Surgery Procedure, Year, and Place: BACK SURGERY X 3 (DISCECTOMY, NO HARDWARE IMPLANTED); GAMMA KNIFE Hx Anesthesia Reactions: No - Immunization History Date of Tetanus Vaccine: UTD Date of Influenza Vaccine: NO Infectious Disease History: No Infectious Disease History: Denies: Hx Clostridium Difficile, Hx Hepatitis, Hx Human Immunodeficiency Virus (HIV), Hx of Known/Suspected MRSA, Hx Shingles, Hx Tuberculosis, Hx Known/ Suspected VRE, Hx Known/Suspected VRSA, Traveled Outside the [place] in Last 30 Days - Family History Known Family History: Negative: Cardiac Disease, Hypertension - Social History Alcohol Use: None Hx Substance Use: No Substance Use Type: Reports: None Substance Use Comment - Amount & Last Used: fent patch Hx Tobacco Use: Yes Smoking Status (MU): Light Every Day Tobacco Smoker Type: Cigarettes Amount Used/How Often: 4-5 cigarettes per day Have You Smoked in the Last Year: Yes Review of Systems Constitutional: Negative Eyes: Negative ENT: Negative Cardiovascular: Negative Respiratory: Negative Positive: Vomiting, Nausea Genitourinary: Negative Musculoskeletal: Negative Skin: Negative Neurological/Mental Status: Negative Psychological: Normal All Other Systems Reviewed And Are Negative: Yes Physical Exam Triage Information Reviewed: Yes Vital Signs On Initial Exam: Initial Vitals Temp Pulse Resp BP Pulse Ox 97.6 F 100 16 148/95 98 10/20/19 21:27 10/20/19 21:27 10/20/19 21:27 10/20/19 21:27 10/20/19 21:27 Vital Signs Reviewed: Yes Appearance: Positive: Well-Appearing Skin: Positive: Warm Head/Face: Positive: Normal Head/Face Inspection Eyes: Positive: Normal Neck: Positive: Supple Respiratory/Lung Sounds: Positive: Clear to Auscultation Cardiovascular: Positive: Normal Abdomen Description: Positive: Nontender Musculoskeletal: Positive: Normal Neurological: Positive: Normal Psychiatric: Positive: Normal AVPU Assessment: Alert - Gunnar Coma Scale Best Eye Response: 4 - Spontaneous Best Motor Response: 6 - Obeys Commands Best Verbal Response: 5 - Oriented Coma Scale Total: 15 Procedures - Sedation Patient Received Moderate/Deep Sedation with Procedure: No Diagnostics - Vital Signs Vital Signs Temp Pulse Resp BP Pulse Ox 10/20/19 21:27 97.6 F 100 16 148/95 98 - Laboratory Result Diagrams: 10/20/19 22:15 10/21/19 00:43 Lab Statement: Any lab studies that have been ordered have been reviewed, and results considered in the medical decision making process. Naus/Vom/Diarrhea Course/Dx - Course Course Of Treatment: Patient with history of metastatic breast cancer receiving chemotherapy complains of uncontrolled nausea or vomiting starting this morning at 8 AM. Last chemotherapy 10/08/19. Patient has Zofran at home which did not provide relief. Patient denies fever, cough, sore throat, CP, SOB, abdominal pain, change in urine, change in BM. Admits to diarrhea 1 week as she is taking lactulose for elevated ammonia levels. Patient was recently [place] [facility] [place] related to elevated ammonia level. Vital signs within normal limits. WBC 13.3. Potassium 3.2 which is patient baseline. Lactate 2.4. Total bili 1.5 which is near patient baseline. Alkaline phosphatase 169 which is patient's baseline. Ammonia 99 which has decreased from 134 on 10/09 when patient was admitted for elevated ammonia level. All labs improved after 2 L normal saline. Patient has been taking lactulose since discharge. Symptoms controlled with Reglan 10 mg IV, Zofran 8 mg IV and Ativan 1 mg IV. Patient states she feels better and would like to go home. Tolerating water by mouth. - Differential Dx/Diagnosis Provider Diagnosis: Nausea & vomiting Discharge ED - Sign-Out/Discharge Documenting (check all that apply): Patient Departure - Discharge Plan Condition: Stable Disposition: HOME Patient Education Materials: Acute Nausea and Vomiting (ED) Referrals: Jill Hill MD [Primary Care Provider] - Additional Instructions: Drink plenty of fluids to maintain hydration. Follow up with primary care. Return to the ED for any new or worsening symptoms. - Billing Disposition and Condition Condition: STABLE Disposition: Home
[2019-10-20] MEDS ORDERED: Lorazepam PYXIS KEY PRN (21:43)
[2019-10-20] MEDS ORDERED: LORazepam INJ* 2 MG/ML 1 ML VIAL IV ONE (21:43)
[2019-10-20] MEDS ORDERED: Lorazepam PYXIS KEY ONE (21:52)
[2019-10-20 22:10] LABS: Urine Appearance Clear; Urine Bilirubin Negative (Negative); Urine Blood 1+ (Negative); Urine Color Amber; Urine Glucose Negative (Negative); Urine Ketones Negative (Negative); Urine Nitrite Negative (Negative); Urine Protein Negative (Negative); Urine Specific Gravity 1.017 (1.010-1.030); Urine Urobilinogen Negative (Negative)
[2019-10-20 22:12] LABS: Urine Bacteria Absent (Absent); Urine Red Blood Cell 1+(3-5/hpf) (Absent); Urine Squamous Epithelial Cell Present (Absent); Urine White Blood Cell 1+(6-10/hpf) (Absent)
[2019-10-20] MEDS ORDERED: Metoclopramide IV* 5 MG/ML 2 ML VIAL IV ONE (22:28)
[2019-10-20 22:30] LABS: ABS Basophils 0.1 10^3/ul (0-0.2); ABS Eosinophils 0.1 10^3/ul (0-0.6); ABS Lymphocytes 1.1 10^3/ul (1.0-4.8); ABS Monocytes 1.3 10^3/ul (0-0.8); ABS Neutrophils 10.7 10^3/ul (1.5-7.7); Eosinophil % 0.8 %; Hematocrit 41 % (35-47); Hemoglobin 12.7 g/dL (12.0-16.0); Lymphocyte % 8.4 %; Mean Corpuscular HGB Conc 31 g/dL (31-36); Mean Corpuscular Hemoglobin 27 pg (27-31); Mean Corpuscular Volume 87 fL (80-97); Mean Platelet Volume 7.6 fL (7.4-10.4); Platelet Count 152 10^3/uL (150-450); Red Blood Count 4.66 10^6 /uL (3.70-4.87); Red Cell Distribution Width 35 % (10-15); White Blood Count 13.3 10^3/uL (3.5-10.8)
[2019-10-20 22:44] LABS: ALT 49 U/L (7-52); AST 91 U/L (13-39); Albumin 3.9 g/dL (3.2-5.2); Alkaline Phosphatase 160 U/L (34-104); Anion Gap 10 mmol/L (2-11); BUN/Creatinine Ratio 21.2 (8-20); Blood Urea Nitrogen 11 mg/dL (6-24); C Reactive Protein 4.82 mg/L (<8.01); CO2 Carbon Dioxide 21 mmol/L (22-32); Calcium 9.8 mg/dL (8.6-10.3); Chloride 108 mmol/L (101-111); EGFR African American 156.5 (>60); EGFR Non-African American 129.3 (>60); Globulin 3.8 g/dL (2-4); Glucose 161 mg/dL (70-100); Potassium 3.2 mmol/L (3.5-5.0); Sodium 139 mmol/L (135-145); Total Protein 7.7 g/dL (6.4-8.9)
[2019-10-20 22:49] LABS: HCG Pregnancy < 0.60 mIU/mL
--- OUTSIDE RECORDS SUMMARY | 2019-10-21 00:56 | XMS REPORT | Continuity of Care Document ---
:1975 External Reference #:[id number] Author Name Anshul Willoughby MD (transmitted by agent of provider Leanna Bae) Address [address] [place] [address] Care Team Providers Name Role Phone Julian Livingston DO - Interventional Care Team Information Syrup Machine Laborer Pain Medicine Terrance Rose MD - Orthopaedic Care Team Information Syrup Machine Laborer Surgery Marleni Richardson MD - Internal Care Team Information Syrup Machine Laborer [phone] Medicine Problems Active Problems Provider Date Panic [...] Not using) Cyclobenzaprine HCL Patricia Cordero, 5mg CADD TECHNICIAN Tablets Glyburide Patricia Cordero, 2.5mg Tablets CADD TECHNICIAN Carisoprodol 1 tablet po qid Unknown 250mg Fluconazole one by mouth Unknown 200mg Tablets daily x14 days ( started taking 06/23/18) SM Naproxen Sodium 1 tablet po Patricia Cordero, 220mg twice daily CADD TECHNICIAN Tablets Fentanyl apply 1 patch Unknown 100mcg/HR Patches every 3 days 72HR Cymbalta 1 by mouth bid Unknown 30mg Caps DR Part Symbicort 1 puff twice a 12gm [place] [...] Available Procedures Date Code Description Status 08/15/2019 60529 EKG, Interpretation Only Completed 08/11/2019 74630 EEG Recording Awake & Asleep Completed 08/09/2019 57428 EEG Recording In Coma Or Sleep Only Completed 08/09/2019 76183 ECHO Transthorasic Realtime 2D W Doppler & Color Flow Completed Hosp 07/06/2019 36728 EKG, Interpretation Only Completed 07/02/2019 93294 EKG, Interpretation Only Completed 07/18/2016 [id number] Mammogram Completed 07/24/2011 [id number] Colonoscopy Completed Medical Devices Description No Information Available Encounters Type Date Location Provider Dx Diagnosis Office Visit 10/16/2019 [facility] Randolph Prieto A40.3 Sepsis due to 11:41a Assoc,mohit Dudley M.D.,FACP Streptococcus Hospitalists pneumoniae G93.49 Other encephalopathy Office Visit 10/15/2019 11:40a [facility] Anshul Willoughby, R41.82 Altered mental Assoc,pc MD status, Hospitalists unspecified K72.90 Hepatic failure, unspecified without coma R06.02 Shortness of breath C50.919 Malignant neoplasm of unsp site of unspecified female breast G89.29 Other chronic pain Office Visit 10/14/2019 [facility] Viky R41.82 Altered mental 11:39a Assoc,mohit Michael NP status, Hospitalists unspecified A41.9 Sepsis, unspecified organism R29.6 Repeated falls F32.9 Major depressive disorder, single episode, unspecified C50.919 Malignant neoplasm of unsp site of unspecified female breast Office Visit 08/14/2019 [facility] Christian Musa, E87.6 Hypokalemia 9:51a M.DTrent[facility] Office Visit 08/13/2019 [facility] G93.40 Encephalopathy, 7:00a Clinic Thao, unspecified N.P. G93.2 Benign intracranial hypertension 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 of brain Office Visit 08/13/2019 9:50a [facility] Christian Musa, T40.2x2A Poisoning by oth MTex opioids, intentional self-harm, init encntr E87.6 Hypokalemia Office 08/12/2019 [facility] Chrsitian Musa, R41.82 Altered mental Visit 9:50a M.D. status, unspecified Office 08/12/2019 [facility] R56.9 Unspecified Visit 7:00a Jennifer Urbina M.D. convulsions G93.40 Encephalopathy, unspecified G93.2 Benign intracranial hypertension 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 of brain Office 08/11/2019 [facility] R56.9 Unspecified Visit 7:00a Clinic Sharifa Urbina convulsions G93.2 Benign intracranial hypertension G93.40 Encephalopathy, unspecified 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 of brain Office 08/11/2019 [facility] Christian Musa, R11.12 Projectile Visit 9:49a [place] vomiting Office 08/10/2019 [facility] R41.82 Altered mental Visit 7:00a Jennifer Urbina M.D. status, unspecified G93.2 Benign intracranial hypertension 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 of brain Office Visit 08/10/2019 9:49a [facility] Mellissa J96.00 Acute respiratory Stocking, PEWTER FINISHER failure, unsp w hypoxia or hypercapnia J18.1 [...] 9:49a [facility] Mellissa J96.00 Acute respiratory Stocking, PEWTER FINISHER failure, unsp w hypoxia or hypercapnia J18.1 Lobar pneumonia, unspecified organism A41.9 Sepsis, unspecified organism R94.5 Abnormal results of liver function studies G93.9 Disorder of brain, unspecified C50.919 Malignant neoplasm of unsp site of unspecified female breast 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 of brain Office Visit 08/08/2019 [facility] R41.82 Altered mental 9:48a Assoc,pc MD Haley [...] neoplasm of brain Office Visit 07/27/2019 10:46a [facility] Florence Amos J98.11 Atelectasis [facility] [place], CADD TECHNICIAN Diseases R51 Headache M54.9 Dorsalgia, unspecified C50.919 Malignant neoplasm of unsp site of unspecified female breast 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 of brain Office Visit 07/26/2019 10:21a [facility] Assoc,mohit Perkins MD R51 Headache Hospitalists R50.9 Fever, unspecified E72.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, unspecified C50.919 Malignant neoplasm of unsp site of unspecified female breast Office Visit 07/24/2019 [facility] Bette R50.9 Fever, 10:43a For [facility] CADD TECHNICIAN unspecified Diseases J98.11 Atelectasis M54.2 Cervicalgia R51 Headache C50.919 Malignant neoplasm of unsp site of unspecified female breast 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 of brain Office Visit 06/25/2019 10:00a [facility] Vic Collado, G56.21 Lesion of at Wil CARRENO ulnar nerve, right upper limb Assessments Date Code Description Provider 10/16/2019 A40.3 Sepsis due to Streptococcus Randolph Dudley M.D.,FACP pneumoniae 10/16/2019 G93.49 Other encephalopathy Randolph Dudley M.D.,FACP 10/15/2019 R41.82 Altered mental status, unspecified Anshul Willoughby MD 10/15/2019 K72.90 Hepatic failure, unspecified without Anshul Willoughby MD coma 10/15/2019 R06.02 Shortness of breath Anshul Willoughby MD 10/15/2019 C50.919 Malignant neoplasm of unspecified Anshul Willoughby MD site of unspecified female breast 10/15/2019 G89.29 Other chronic pain Anshul Willoughby MD 10/14/2019 R41.82 Altered mental status, unspecified Viky Alec, CADD TECHNICIAN 10/14/2019 A41.9 Sepsis, unspecified organism Viky [place], CADD TECHNICIAN 10/14/2019 R29.6 Repeated falls Viky Alec, CADD TECHNICIAN 10/14/2019 F32.9 Major depressive disorder, single Viky [place], CADD TECHNICIAN episode, unspecified 10/14/2019 C50.919 Malignant neoplasm of unspecified Viky Michael, CADD TECHNICIAN site of unspecified female breast 08/15/2019 R94.31 Abnormal electrocardiogram [ECG] Valery Tsang [...] 08/10/2019 J96.00 Acute respiratory failure, Mellissa Stocking, PEWTER FINISHER unspecified whether with hypoxia or hypercapnia 08/10/2019 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 of Jabier Urbina M.D. brain 08/10/2019 J18.1 Lobar pneumonia, unspecified Mellissa Stocking, PEWTER FINISHER organism 08/10/2019 A41.9 Sepsis, unspecified organism Mellissa Stocking, PEWTER FINISHER 08/10/2019 R94.5 Abnormal results of liver function Mellissa Stocking, PEWTER FINISHER studies 08/10/2019 G93.9 Disorder of brain, unspecified Mellissa Stocking, PEWTER FINISHER 08/10/2019 C50.919 Malignant neoplasm of unspecified Mellissa Stocking, PEWTER FINISHER site of unspecified female breast 08/10/2019 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 of Mellissa Stocking, PEWTER FINISHER brain 08/10/2019 R41.82 Altered mental status, unspecified Mellissa Stocking, PEWTER FINISHER 08/09/2019 R41.82 Altered mental status, unspecified Darren Agustin MD 08/09/2019 R06.89 Other abnormalities of breathing Marshal French M.D. 08/09/2019 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 of Darren Agustin MD brain 08/09/2019 J96.00 Acute respiratory failure, Mellissa Stocking, PEWTER FINISHER unspecified whether with hypoxia or hypercapnia 08/09/2019 J18.1 Lobar pneumonia, unspecified Mellissa Stocking, PEWTER FINISHER organism 08/09/2019 A41.9 Sepsis, unspecified organism Mellissa Stocking, PEWTER FINISHER 08/09/2019 R94.5 Abnormal results of liver function Mellissa Stocking, PEWTER FINISHER studies 08/09/2019 G93.9 Disorder of brain, unspecified Mellissa Stocking, PEWTER FINISHER 08/09/2019 C50.919 Malignant neoplasm of unspecified Mellissa Stocking, PEWTER FINISHER site of unspecified female breast 08/09/2019 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 of Mellissa Stocking, PEWTER FINISHER brain 08/08/2019 R41.82 Altered mental status, unspecified [...] Browne MD 07/27/2019 J98.11 Atelectasis Florence Kat, BENITO 07/27/2019 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, Cammy Browne MD bilateral 07/27/2019 R51 Headache Florence Kat, CADD TECHNICIAN 07/27/2019 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 of Cammy Browne MD brain 07/27/2019 M54.9 Dorsalgia, unspecified Florence Kat, CADD TECHNICIAN 07/27/2019 C50.919 Malignant neoplasm of unspecified Florence Kat, BENITO site of unspecified female breast 07/27/2019 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 of Florence Kat, CADD TECHNICIAN brain 07/26/2019 R51 Headache Rosmery Perkins MD 07/26/2019 R50.9 Fever, unspecified Rosmery Perkins MD 07/26/2019 E72.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, Rosmery Perkins MD unspecified 07/26/2019 C50.919 Malignant neoplasm of unspecified Rosmery Perkins MD site of unspecified female breast 07/24/2019 R50.9 Fever, unspecified Florence Kat, CADD TECHNICIAN 07/24/2019 J98.11 Atelectasis Florence Kat, CADD TECHNICIAN 07/24/2019 M54.2 Cervicalgia Florence Kat, CADD TECHNICIAN 07/24/2019 R51 Headache Florence Kat, CADD TECHNICIAN 07/24/2019 C50.919 Malignant neoplasm of unspecified Florence Kat, CADD TECHNICIAN site of unspecified female breast 07/24/2019 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 of Florence Kat, CADD TECHNICIAN brain 07/06/2019 Z13.6 Encounter for screening for Christian Ramos M.D., FACC, cardiovascular disorders [facility] 07/02/2019 R94.31 Abnormal electrocardiogram [ECG] Rocky Miranda MD, FACC, [EKG] [facility] 06/25/2019 G56.21 Lesion of ulnar nerve, right upper Vic Collado MD limb Plan of Treatment Future Appointment(s):10/30/2019 9:00 am - Raj Bowens NP at [facility] [place]9706/25/2019 - Vic Collado MDG56.21 Lesion of ulnar nerve, right upper limbFollow up:Follow up: with [facility] after EMG Functional Status Description No Information Available Mental Status Description No Information Available Referrals Description No Information Available
--- OUTSIDE RECORDS SUMMARY | 2019-10-21 00:56 | XMS REPORT ---
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, disorder, RN recurrent, recurrent, unspecified unspecified Anxiety Anxiety Diagnosis Active Kaylynn disorder, disorder, Malnoske unspecified unspecified RN Pain frequent Pain Mgmt Resolve 2017-072018-08-27 Love pain d 08-16 15:00:00 Murphy 10:20: [id number] 00 Respiratory smoker Respirator Resolve 2017-072018-07-23 Love y d 08-16 15:00:00 Murphy 10:20: [id number] 00 Endo/Jose anti-coagul Endo/Jose Resolve 2017-072018-06-25 Love ation d 08-16 15:00:00 Murphy therapy 10:20: [id number] 00 Nutrition nutritional Nutrition Resolve 2017-072018-07-04 Love restriction d 08-16 15:00:00 Murphy s 10:20: [id number] 00 Neuro confusion Neuro/Emot Resolve 2017-072018-08-06 Love present ion d 08-16 15:00:00 Murphy 10:20: [id number] 00 Neuro anxiety Neuro/Emot Resolve 2017-072018-08-06 Love present ion d 08-16 15:00:00 Murphy 10:20: [id number] 00 Neuro depressive Neuro/Emot Resolve 2017-072018-08-06 Love feelings ion d 08-16 15:00:00 Murphy present 10:20: [id number] 00 Safety risk for Safety Resolve 2017-072018-07-04 Love hospitaliza d 08-16 15:00:00 Murphy tion 10:20: [id number] 00 Safety fall risk Safety Resolve 2017-072018-07-04 Ericka factor d 08-16 15:00:00 Vivian present 10:20: 00 Musculoskel requires Musculoske Unknown 2017-07 Love etal human letal 08-16 Murphy assist to 10:20: [id number] leave home 00 Cardio hypertensio Cardiovasc Resolve [...] d 2-10 15:00:00 [place] deficit Services 14:00: [id number] 00 Social knowledge/s BRISEYDA: Resolve 2017-072018-09-22 Kezia Services kill Social d 2-10 13:00:00 [place] deficit - Services 14:00: [id number] pt 00 Social knowledge/s BRISEYDA: Resolve 2017-072018-09-22 Kezia Services kill Social d 2-10 13:00:00 [place] deficit - Services 14:00: [id number] cg 00 Musculoskel requires Musculoske Unknown 2017-07 Shelby etal human letal 2- Vallely assist to 15:30: leave home 00 Diagnoses knowledge/s Diagnoses Active 2017-07 Kezia kill 224 [place] deficit: cg 13:00: [id number] 00 Integument skin Integument Resolve 2017-072018-08-06 Shelby [...] Active Kezia hospitaliza 2-18 [place] tion 14:00: [id number] 00 Safety can be left Safety Unknown Kezia alone for 2-18 [place] only short 14:00: [id number] periods 00 Pain frequent Pain Mgmt Resolve 2018-09-24 Lam pain d 2-27 15:00:00 Briones 15:50: [id number] 00 Safety can be left Safety Resolve 2018-10-08 Kezia alone for d 3-04 15:00:00 [place] only short 13:00: [id number] periods 00 Cardio edema Cardiovasc Resolve 2018-2018-10-08 [...] 13:00:00 Vallely 15:00: 00 Neuro depressive Neuro/Emot Active 2018- Lam feelings ion 4-08 Briones present 15:45: [id number] 00 Respiratory lung sounds Respirator Resolve 2018-10-29 Shelby deficit y d 4-10 13:00:00 Vallely 13:00: 00 Infection s/s of Infection Resolve 2019-02-04 Shelby infection d 4-17 12:30:00 Vallely 13:00: 00 Respiratory smoker Respirator Resolve 2018-11-05 Shelby y d 4-17 13:00:00 Vallely 13:00: 00 Neuro depressive Neuro/Emot Resolve 2018-12-10 Lam feelings ion d 4-20 12:30:00 Briones present 12:20: [id number] 00 Respiratory smoker Respirator Resolve 2018-11-20 Shelby [...] 08 13:30:00 [place] deficit - Services 13:30: [id number] pt 00 Respiratory lung sounds Respirator Resolve [...] soni n d 12-18 12:30:00 Narendra 12:30: [id number] 00 Respiratory lung sounds Respirator Resolve 2018-12-24 [...] Vallely 12:30: 00 Neuro depressive Neuro/Emot Resolve 2018-2019-01-07 Shelby feelings ion d 612 12:30:00 Vallely [...] Respirator Resolve 2019-01-08 Shelby present y d 19 15:00:00 Vallely 12:30: 00 Nutrition nutritional Nutrition Resolve 2019-01-08 Shelby restriction d 620 15:00:00 Vallely s 15:00: 00 Neuro depressive Neuro/Emot Resolve 2019-02-18 Shelby feelings ion d 6 12:10:00 Vallely present 15:00: 00 Activity ADL Activity Resolve 2019-02-18 Shelby assistance d 6-20 12:10:00 Vallely required 15:00: 00 Musculoskel requires Musculoske Unknown Shelby etal human letal 6 Vallely assist to 15:00: leave home 00 [...] restriction d 01-16 12:30:00 [place] s 15:00: [id number] 00 Safety can be left Safety Resolve 2019-02-18 Kezia alone for d 01-16 12:10:00 [place] only short 15:00: [id number] periods 00 Respiratory smoker Respirator Resolve 2019-01-21 Shelby y d 7- 12:30:00 Vallely 12:30: 00 Nutrition nutritional Nutrition Resolve 2019-01-21 Shelby risk d 7- 12:30:00 Vallely 12:30: 00 Musculoskel [...] Social 7-12 [place] deficit - Services 14:00: [id number] cg 00 Respiratory lung sounds Respirator Resolve [...] Kezia feelings ion 02-18 [place] present 14:30: [id number] 00 Respiratory lung sounds Respirator Resolve 2019-03-04 Shelby deficit y d 8-14 12:20:00 Vallely 12:20: 00 Respiratory smoker Respirator Resolve 2019-03-04 Shelby y d 814 12:20:00 Vallely 12:20: 00 Respiratory dyspnea Respirator Unknown Shelby present y 8 Vallely 12:20: 00 Respiratory oxygen Respirator Resolve [...] d 03-12 12:30:00 [place] only short 15:30: [id number] periods 00 Respiratory smoker Respirator Resolve 2019-03-12 [...] d 0-14 12:45:00 [place] only short 15:00: [id number] periods 00 Musculoskel requires Musculoske Unknown 2018-07 [...] alone for -12 [place] only short 15:30: [id number] periods 00 Respiratory smoker Respirator Resolve 2018-072019-07-09 [...] Respirator Resolve 2019-08-19 Shelby treatments y d 07-23 12:30:00 Vallely in home 12:30: 00 Respiratory pneumonia Respirator Resolve 2019-2019-07-28 Shelby y d - 12:30:00 Vallely 12:30: 00 Respiratory smoker Respirator Resolve 2019-07-23 Shelby y d 07-23 12:30:00 Vallely 12:30: 00 Respiratory dyspnea Respirator Resolve 2019-08-19 Shelby present y d 07-28 12:30:00 Vallely 12:30: 00 Respiratory smoker Respirator Resolve 2019-08-05 Shelby y d - 12:30:00 Vallely 12:30: 00 Endo/Jose diabetic Endo/Jose Resolve 2019-08-05 Shelby foot care d - 12:30:00 Vallely 12:30: 00 Nutrition nutritional Nutrition Resolve 2019-07-28 Shelby restriction d - 12:30:00 Vallely s 12:30: 00 Activity self-care Activity Resolve 2019-08-05 Shelby deficit d 07-28 12:30:00 Vallely 12:30: 00 Activity ADL Activity Active Shelby assistance 07-28 Vallely required 12:30: 00 Safety fall risk Safety Active Shelby factor - Vallely present 12:30: 00 Medication potential Meds Resolve 2019-07-28 Shelby clinically d 07-28 12:30:00 Vallely significant 12:30: medication 00 issue Neuro depressive Neuro/Emot Active Shelby feelings ion 08-05 Vallely present 12:30: 00 Medication potential Meds Resolve 2019-09-30 Shelby clinically d 08-05 12:30:00 Vallely significant 12:30: medication 00 issue Endo/Jose diabetic Endo/Jose Unknown Kezia foot care 08-05 [place] 14:00: [id number] 00 Social financial BRISEYDA: Active Kezia Services resource Social 08-05 [facility] deficit Services 14:00: [id number] 00 Integument skin Integument Active 2019-0 Love integrity 08-17 Murphy risk 10:30: [id number] 00 Elimination urinary Eliminatio Resolve 2019-08-19 Love incontinenc n d 08-17 12:30:00 Murphy e 10:30: [id number] 00 Elimination bowel Eliminatio Resolve 2019-09-02 Love incontinenc n d 08-17 12:30:00 Murphy e 10:30: [id number] 00 Elimination diarrhea Eliminatio Resolve 2019-09-02 Love n d 08-17 12:30:00 Murphy 10:30: [id number] 00 Neuro confusion Neuro/Emot Active 2019-0 Love present ion 08-17 Murphy 10:30: [id number] 00 Neuro anxiety Neuro/Emot Active 2019-0 Love present ion 08-17 Murphy 10:30: [id number] 00 Neuro impaired Neuro/Emot Active 2019-0 Love decision-ma ion 08-17 Murphy wilmer 10:30: [id number] 00 Neuro memory Neuro/Emot Active 2019-0 Love deficit ion 08-17 Murphy needing 10:30: [id number] supervision 00 Activity self-care Activity Active 2019-0 Love deficit 08-17 Murphy 10:30: [id number] 00 Medication oral med Meds Resolve 2019-09-30 Love assistance d 08-17 12:30:00 Murphy required 10:30: [id number] 00 Musculoskel transfer Musculoske Active 2019-0 Love etal assistance letal 08-17 Murphy required 10:30: [id number] 00 Musculoskel requires Musculoske Unknown 2019- Love etal human letal 08-17 Murphy assist to 10:30: [id number] leave home 00 Respiratory smoker Respirator Resolve 2019-08-20 Shelby ma 08-19 16:15:00 Vallely 12:30: 00 Neuro knowledge/s Neuro/Emot Active 2019-0 Shelby kill ion 08-19 Vallely deficit: pt 12:30: 00 Medication knowledge/s Meds Unknown Shelby woodson 08-19 Vallely deficit: cg 12:30: 00 Respiratory oxygen Respirator Resolve 2019-08-26 Shelby treatments y d 1-30 12:30:00 Vallely in home 16:15: 00 Neuro knowledge/s Neuro/Emot Unknown Shelby kill ion 2- Vallely deficit: pt 12:30: 00 Medication knowledge/s Meds Resolve 2019-09-30 Shelby kill d 2-05 12:30:00 Vallely deficit: cg 12:30: 00 Musculoskel requires Musculoske Active Shelby etal human letal 2- Vallely assist to 12:30: leave home 00 Balance/End endurance PT/OT: Resolve 2019-09-09 Lam guerrero deficit Balance/En d 2-05 15:45:00 Briones durance 15:35: [id number] 00 Balance/End knowledge/s PT/OT: Resolve 2019-09-09 Lam urance kill Balance/En d 2-05 15:45:00 Briones deficit: pt durance 15:35: [id number] 00 Gait/Locomo knowledge/s PT/OT: Resolve 2019-09-09 Lam tion kill Gait/Locom d 2-05 15:45:00 Briones problems deficit: pt otion 15:35: [id number] 00 Gait/Locomo knowledge/s PT/OT: Resolve 2019-09-09 Lam tion kill Gait/Locom d 2-05 15:45:00 Briones problems deficit: cg otion 15:35: [id number] 00 Gait/Locomo gait PT/OT: Resolve 2019-09-09 Lam tion deficit Gait/Locom d 2-05 15:45:00 Briones problems otion 15:35: [id number] 00 Respiratory oxygen Respirator Resolve 2019-09-02 Shelby treatments y d 2-12 12:30:00 Vallely in home 12:30: 00 Respiratory oxygen Respirator Resolve 2019 Shelby treatments y d 2-14 12:20:00 Vallely in home 12:20: 00 Respiratory smoker Respirator Resolve 2019 Shelby y d 2-14 12:20:00 Vallely 12:20: 00 Respiratory oxygen Respirator Resolve 2019-09-09 Shelby treatments y d 2-19 11:00:00 Vallely in home 11:00: 00 Respiratory smoker Respirator Resolve 2019-09-09 Shelby y d 2- 11:00:00 Vallely 11:00: 00 Respiratory oxygen Respirator Resolve 2019-09-16 Shelby treatments y d 2- 12:30:00 Vallely in home 12:30: 00 Respiratory smoker Respirator Resolve 2019-2019-09-16 Shelby y d 2- 12:30:00 Vallely 12:30: [...] d 3-06 15:00:00 Vallely 15:00: 00 Balance/End balance/gum cook PT/OT: Active Shelby urance rdination Balance/En 3-06 Vallely deficit durance 15:00: 00 Gait/Locomo gait PT/OT: Active Shelby tion deficit Gait/Locom 3-06 Vallely problems otion 15:00: 00 Endo/Jose knowledge/s Endo/Jose Resolve 2019-09-30 Shelby kill d 3- 12:30:00 Vallely deficit: pt 12:30: 00 Endo/Jose glucose Endo/Jose Active Shelby testing 3 Vallely dependence 12:30: 00 Elimination urinary Eliminatio Active Kaylynn incontinenc n 3-27 Malnoske e 18:10: RN 00 Allergies, Adverse Reactions, Alerts Allergy Allergy Status Severity Reaction(s) Onset Inactive Treating Comments Name Type Date Date Clinician phenergan Unknown Active Unknown Reaction Ernestine Unknown 3-23 (Robert) [place] [id number] effexor Unknown Active Unknown Reaction Ernestine Unknown 3-23 (Robert) [place] [id number] compazine Unknown Active Unknown Reaction Ernestine Unknown 3-23 ([place]) [place] [id number] adhesive Unknown Active Unknown Reaction Ernestine tape Unknown 3-23 (Robert) [place] [id number] milk Unknown Active Unknown Reaction Ernestine Unknown 3-23 (Robert) [place] [id number] prochlorper Base Active Unknown extrapyramidal 2017-07 [place] azine Ingredient symptoms - Dilip venlafaxine Base Active Severe Hives, 2017-07 [place] Ingredient difficulty - Dilip breathing, itching promethazin Base Active Unknown extrapyramidal 2017-07 [place] e Ingredient symptoms 08-09 Dilip Gadolinium- Allergen [...] ne 6 mg ne 6 mg 08-16 Jlil CARRENO tablet tablet fentaNYL 75 fentaNYL 75 [...] inhaler inhaler oxyCODONE 5 oxyCODONE 5 2018- Liz Unknown Unknown mg tablet mg tablet 08-01 Jill CARRNEO oxyCODONE 5 oxyCODONE 5 2018- No Liz [...] Jill CARRENO tablet tablet Triple Triple 2019- Schwed Unknown Unknown Antibiotic- Antibiotic- 09-16 Darren CARRENO Pain Relief Pain Relief 3.5 mg-500 3.5 mg-500 unit-10,000 unit-10,000 unit/gram unit/gram ointmnt ointmnt fentaNYL 25 fentaNYL 25 2018- No Liz Unknown Unknown mcg/hr mcg/hr 10-01 Jill CARRENO transdermal transdermal patch patch methocarbam methocarbam 2018- No Liz Unknown Unknown ol 750 mg ol 750 mg 10-23 Jill CRARENO tablet tablet pantoprazol pantoprazol 2019- No Liz [...] No Liz Unknown Unknown [id number] 12-16 Jill CARRENO mg-potassiu mg-potassiu m m clavulanate clavulanate 125 mg 125 mg tablet tablet gabapentin gabapentin 2018- No Liz Unknown Unknown 100 mg 100 mg 12-09 ,Jill capsule capsule metroNIDAZO metroNIDAZO 2018- No Liz Unknown Unknown LE 500 mg LE 500 mg 12-09 Jill CARRENO tablet tablet amoxicillin amoxicillin 2018- No Liz Unknown Unknown [id number] 12-09 Jill CARRENO mg-potassiu mg-potassiu m m clavulanate clavulanate 125 mg 125 mg tablet tablet Imodium A-D Imodium A-D 2019- No Liz Unknown Unknown 2 mg tablet 2 mg tablet 12-24 Jill CARRENO fentaNYL fentaNYL 2019- No Liz Unknown Unknown [...] mg 01-01 MD,Jill capsule capsule oxygen oxygen 2019- No Liz [...] 250 mg Soma 250 mg 2019- No Ilz Unknown Unknown tablet tablet 01-21 ,Jill Miralax 17 Miralax 17 2020- No Liz Unknown Unknown gram oral gram [...] Unknown 100 mg 100 mg 1-26 09-25 MD,Jill tablet tablet gabapentin gabapentin 2018- No [...] ne 2 mg ne 2 mg 09-07 MD,Jill tablet tablet Xarelto 20 Xarelto 20 2018-07- [...] CARRENO transdermal transdermal patch patch acetaZOLAMI acetaZOLAMI 0 2020- Yes Liz Unknown Unknown DE 250 [...] tablet 08-19 ,Jill Rexulti 2 Rexulti 2 2019- Yes Liz Unknown Unknown mg tablet [...] capsule,del ayed ayed release release acetaZOLAMI acetaZOLAMI 2019- Yes Liz Unknown Unknown DE 250 mg DE 250 mg 08-19 ,Jill tablet tablet Klor-Con Klor-Con 2020-0 2020- Yes Liz Unknown [...] tablet mg tablet 09-02 MD,Jill oxyCODONE oxyCODONE 2020- Yes Liz Unknown Unknown 10 mg 10 mg 09-02 MD,Jill tablet tablet Soma 250 mg Soma 250 mg 2020- Yes Liz Unknown Unknown tablet tablet 09-02 MD,Jill gabapentin gabapentin 2020- Yes Liz Unknown Unknown 600 mg 600 mg 09-04 MD,Jill tablet tablet Klor-Con 10 Klor-Con 10 2020- Yes Liz Unknown Unknown mEq mEq 09-04 MD,Jill tablet,exte tablet,exte nded nded release release mirtazapine mirtazapine Yes Liz Unknown Unknown 30 mg 30 mg 09-02 MD,Jill tablet tablet Soma 250 mg Soma 250 mg 2019- Yes Liz Unknown Unknown tablet tablet 09-09 MD,Jill omeprazole omeprazole 2019-0 Yes Liz Unknown Unknown 40 40 - Jill CARRENO mg-sodium mg-sodium bicarbonate bicarbonate 1.1 gram 1.1 gram capsule capsule glyBURIDE glyBURIDE 2019-0 Yes Liz Unknown Unknown 2.5 mg 2.5 mg 3 ,Jill tablet tablet gabapentin gabapentin 2020-0 Yes Liz Unknown Unknown 300 mg 300 mg 09-29 ,Jill capsule capsule gabapentin gabapentin 2020-0 Yes Liz Unknown Unknown 600 mg 600 mg 09-29 ,Jill tablet tablet ALPRAZolam ALPRAZolam 2019-0 Yes Liz Unknown Unknown 1 mg tablet 1 mg tablet 10-06 ,Jill oxyCODONE 5 oxyCODONE 5 2020-0 Yes Liz [...] oxygen 2019-0 Yes Liz Unknown Unknown 10-06 Jill CARRENO Colace 100 Colace 100 2020-0 Yes Liz Unknown Unknown mg capsule mg capsule 10-06 Jill CARRENO Miralax 17 Miralax 17 2020-0 [...] Liz Unknown Unknown mg tablet mg tablet 3-18 ,Jill oxyCODONE oxyCODONE 2019-0 Yes Liz Unknown Unknown 10 mg 10 mg - ,Jill tablet tablet Klor-Con Klor-Con 2019-0 Yes Liz Unknown Unknown M20 mEq M20 mEq 10-06 MD,Jill tablet,exte tablet,exte nded nded release release Vital Signs Vital Name Observation Time Observation Value Comments SYSTOLIC mm[Hg] 2019-10-16 18:11:05 128 mm[Hg] mm[Hg] Method: Sit SYSTOLIC mm[Hg] 2019-08-17 18:10:05 120 mm[Hg] mm[Hg] Method: Stand SYSTOLIC mm[Hg] 2019-09-30 18:10:49 130 mm[Hg] mm[Hg] Method: Lie DIASTOLIC mm[Hg] 2019-10-16 18:11:05 74 mm[Hg] mm[Hg] Method: Sit DIASTOLIC mm[Hg] 2019-08-17 18:10:05 80 mm[Hg] mm[Hg] Method: Stand DIASTOLIC mm[Hg] 2019-09-30 18:10:49 72 mm[Hg] mm[Hg] Method: Lie PULSE 2019-10-16 18:11:05 87 /min /min RESP RATE 2019-10-16 18:11:05 16 /min /min TEMP 2019-10-16 18:11:05 98.9 [degF] Procedures This patient has no known procedures. Results This patient has no known results.
--- OUTSIDE RECORDS SUMMARY | 2019-10-21 00:56 | XMS REPORT ---
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, disorder, RN recurrent, recurrent, unspecified unspecified Anxiety Anxiety Diagnosis Active Kaylynn disorder, disorder, [place] unspecified unspecified RN Pain frequent Pain Mgmt Resolve 2017-072018-08-27 Love pain d 08-16 15:00:00 Orr 10:20: [id number] 00 Respiratory smoker Respirator Resolve 2017-072018-07-23 Love y d 08-16 15:00:00 Orr 10:20: [id number] 00 Endo/Jose anti-coagul Endo/Jose Resolve 2017-072018-06-25 Love ation d 08-16 15:00:00 Orr therapy 10:20: [id number] 00 Nutrition nutritional Nutrition Resolve 2017-072018-07-04 Love restriction d 08-16 15:00:00 Orr s 10:20: [id number] 00 Neuro confusion Neuro/Emot Resolve 2017-072018-08-06 Love present ion d 08-16 15:00:00 Orr 10:20: [id number] 00 Neuro anxiety Neuro/Emot Resolve 2017-072018-08-06 Love present ion d 08-16 15:00:00 Orr 10:20: [id number] 00 Neuro depressive Neuro/Emot Resolve 2017-072018-08-06 Love feelings ion d 08-16 15:00:00 Orr present 10:20: [id number] 00 Safety risk for Safety Resolve 2017-072018-07-04 Love hospitaliza d 08-16 15:00:00 Orr tion 10:20: [id number] 00 Safety fall risk Safety Resolve 2017-072018-07-04 Ericka factor d 08-16 15:00:00 Vivian present 10:20: 00 Musculoskel requires Musculoske Unknown 2017-07 Love etal human letal 08-16 Orr assist to 10:20: [id number] leave home 00 Cardio hypertensio Cardiovasc Resolve [...] d 2-10 15:00:00 [place] deficit Services 14:00: [id number] 00 Social knowledge/s BRISEYDA: Resolve 2017-072018-09-22 [facility] kill Social d 2-10 13:00:00 [place] deficit - Services 14:00: [id number] pt 00 Social knowledge/s BRISEYDA: Resolve 2017-072018-09-22 [facility] kill Social d 2-10 13:00:00 [place] deficit - Services 14:00: [id number] cg 00 Musculoskel requires Musculoske Unknown 2017-07 Shelby etal human letal 2- [place]le[place] assist to 15:30: leave home 00 Diagnoses knowledge/s Diagnoses Active 2017-07 Kezia kill 224 [place] deficit: cg 13:00: [id number] 00 Integument skin Integument Resolve 2017-072018-08-06 Shelby [...] Active Kezia hospitaliza 2-18 [place] tion 14:00: [id number] 00 Safety can be left Safety Unknown Kezia alone for 2-18 [place] only short 14:00: [id number] periods 00 Pain frequent Pain Mgmt Resolve 2018-09-24 Lam pain d 2-27 15:00:00 Briones 15:50: [id number] 00 Safety can be left Safety Resolve 2018-10-08 Kezia alone for d 3-04 15:00:00 [place] only short 13:00: [id number] periods 00 Cardio edema Cardiovasc Resolve 2018-2018-10-08 Shelby ular d 3-13 15:00:00 [place] 15:00: 00 Social knowledge/s BRISEYDA: Resolve 2018-10-10 Shelby Services kill Social d 3-13 16:00:00 [place] deficit - Services 15:00: pt 00 Pain frequent Pain Mgmt Resolve 2018-2018-10-29 Shelby pain d 3-20 13:00:00 [place] 15:00: 00 Respiratory smoker Respirator Resolve 2018-10-15 [place] y d 3-20 15:00:00 [place] 15:00: 00 [...] 13:00:00 [place] 15:00: 00 Neuro depressive Neuro/Emot Unknown Lam feelings ion 4-08 Briones present 15:45: [id number] 00 Respiratory lung sounds Respirator Resolve 2018-10-29 Shelby deficit y d 4-10 13:00:00 [place] 13:00: 00 Infection s/s of Infection Resolve 2019-02-04 Shelby infection d 4-17 12:30:00 [place] 13:00: 00 Respiratory smoker Respirator Resolve 2018-11-05 Shelby y d 4-17 13:00:00 [place] 13:00: 00 Neuro depressive Neuro/Emot Resolve 2018-12-10 Lam feelings ion d 4-20 12:30:00 Briones present 12:20: [id number] 00 Respiratory smoker Respirator Resolve 2018-11-20 Shelby y d 4-24 12:30:00 [place] 12:30: 00 Respiratory oxygen Respirator Resolve 2018-12-04 Shelby treatments y d 5-08 12:30:00 [place]le[place] in home 12:30: 00 Respiratory smoker Respirator Resolve 2019-01-07 Shelby y d 5-08 12:30:00 [place]le[place] 12:30: 00 Safety can be left Safety Resolve 2018-12-10 Shelby fraire for d 5-08 12:30:00 [place]le[place] only short 12:30: periods 00 Social knowledge/s BRISEYDA: Resolve 2018-11-26 [facility] kill Social d 08 13:30:00 [place] deficit - Services 13:30: [id number] pt 00 Respiratory lung sounds Respirator Resolve [...] soni n d 12-18 12:30:00 Narendra 12:30: [id number] 00 Respiratory lung sounds Respirator Resolve 2018-12-24 [...] restriction d 01-16 12:30:00 [place] s 15:00: [id number] 00 Safety can be left Safety Resolve 2019-02-18 Kezia alone for d 01-16 12:10:00 [place] only short 15:00: [id number] periods 00 Respiratory smoker Respirator Resolve 2019-01-21 [...] Social 7-12 [place] deficit - Services 14:00: [id number] cg 00 Respiratory lung sounds Respirator Resolve [...] Kezia feelings ion 02-18 [place] present 14:30: [id number] 00 Respiratory lung sounds Respirator Resolve 2019-03-04 [...] d 03-12 12:30:00 [place] only short 15:30: [id number] periods 00 Respiratory smoker Respirator Resolve 2019-03-12 [...] d 0-14 12:45:00 [place] only short 15:00: [id number] periods 00 Musculoskel requires Musculoske Unknown 2018-07 [...] alone for -12 [place] only short 15:30: [id number] periods 00 Respiratory smoker Respirator Resolve 2018-072019-07-09 [...] 12:30: medication 00 issue Neuro depressive Neuro/Emot Unknown Shelby feelings ion 08-05 Vallely present 12:30: 00 Medication potential Meds Resolve 2019-09-30 Shelby clinically d 08-05 12:30:00 [place]le[place] significant 12:30: medication 00 issue Endo/Jose diabetic Endo/Jose Unknown Kezia foot care 08-05 [place] 14:00: [id number] 00 Social financial BRISEYDA: Active Ke[facility] Services resource Social 08-05 [facility] deficit Services 14:00: [id number] 00 Integument skin Integument Active 2019-0 Love integrity 08-17 Orr risk 10:30: [id number] 00 Elimination urinary Eliminatio Resolve 2019-08-19 Love incontinenc n d 08-17 12:30:00 Orr e 10:30: [id number] 00 Elimination bowel Eliminatio Resolve 2019-09-02 Love incontinenc n d 08-17 12:30:00 Orr e 10:30: [id number] 00 Elimination diarrhea Eliminatio Resolve 2019-09-02 Love n d 08-17 12:30:00 Orr 10:30: [id number] 00 Neuro confusion Neuro/Emot Active 2019-0 Love present ion 08-17 Orr 10:30: [id number] 00 Neuro anxiety Neuro/Emot Active 2019-0 Love present ion 08-17 Orr 10:30: [id number] 00 Neuro impaired Neuro/Emot Active 2019-0 Love decision-ma ion 08-17 Orr wilmer 10:30: [id number] 00 Neuro memory Neuro/Emot Active 2019-0 Love deficit ion 08-17 Orr needing 10:30: [id number] supervision 00 Activity self-care Activity Active 2019-0 Love deficit 08-17 Orr 10:30: [id number] 00 Medication oral med Meds Resolve 2019-09-30 Love assistance d 08-17 12:30:00 Orr required 10:30: [id number] 00 Musculoskel transfer Musculoske Active 2019-0 Love etal assistance letal 08-17 Orr required 10:30: [id number] 00 Musculoskel requires Musculoske Unknown 2019- Love etal human letal 08-17 Orr assist to 10:30: [id number] leave home 00 Respiratory smoker Respirator Resolve [...] Balance/En d 2-05 15:45:00 Briones durance 15:35: [id number] 00 Balance/End knowledge/s PT/OT: Resolve 2019-09-09 Lam urance kill Balance/En d 2-05 15:45:00 Briones deficit: pt durance 15:35: [id number] 00 Gait/Locomo knowledge/s PT/OT: Resolve 2019-09-09 Lam tion kill Gait/Locom d 2-05 15:45:00 Briones problems deficit: pt otion 15:35: [id number] 00 Gait/Locomo knowledge/s PT/OT: Resolve 2019-09-09 Lam tion kill Gait/Locom d 2-05 15:45:00 Briones problems deficit: cg otion 15:35: [id number] 00 Gait/Locomo gait PT/OT: Resolve 2019-09-09 Lam tion deficit Gait/Locom d 2-05 15:45:00 Briones problems otion 15:35: [id number] 00 Respiratory oxygen Respirator Resolve 2019-09-02 Shelby treatments y d 2-12 12:30:00 [place]le[place] in home 12:30: 00 Respiratory oxygen Respirator Resolve 2019 Shelby treatments y d 2-14 12:20:00 Valle[place] in home 12:20: 00 Respiratory smoker Respirator Resolve 2019 Shelby y d 2-14 12:20:00 Valle[place] 12:20: 00 Respiratory oxygen Respirator Resolve 2019-2019-09-09 Shelby treatments y d 2-19 11:00:00 Vallely [...] smoker Respirator Resolve 2019-2019-09-22 Shelby y d 3-03 14:00:00 Valle[place] 14:00: 00 Respiratory dyspnea Respirator Resolve 2019-2019-09-25 Shelby present y d 3-06 15:00:00 Vallely 15:00: 00 Respiratory smoker Respirator Resolve 2019-2019-09-25 Shelby y d 3-06 15:00:00 Valle[place] 15:00: 00 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 PT/OT: Active Shelby urance rdination Balance/En -06 [place] deficit durance 15:00: 00 Gait/Locomo gait PT/OT: Active Shelby tion deficit Gait/Locom -06 Valle[place] problems otion 15:00: 00 Endo/Jose knowledge/s Endo/Jose Resolve 2019-09-30 Shelby kill d 3- 12:30:00 [place] deficit: pt 12:30: 00 Endo/Jose glucose Endo/Jose Active Shelby testing 09-29 [place]le[place] dependence 12:30: 00 Endo/Jose diabetic Endo/Jose Active Kaylynn foot care 10-15 [place] 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 00 Elimination urinary Eliminatio Active Kaylynn incontinenc n 10-15 [place] e 18:10: RN 00 Allergies, Adverse Reactions, Alerts Allergy Allergy Status Severity Reaction(s) Onset Inactive Treating Comments Name Type Date Date Clinician phenergan Unknown Active Unknown Reaction Ernestine Unknown 3-23 (Robert) [place] [id number] effexor Unknown Active Unknown Reaction Ernestine Unknown 3-23 ([place] [id number] compazine Unknown Active Unknown Reaction Ernestine Unknown 3-23 ([place]) [place] [id number] adhesive Unknown Active Unknown Reaction Ernestine tape Unknown 3-23 ([place]) [place] [id number] milk Unknown Active Unknown Reaction Ernestine Unknown 3-23 ([place]) [place] [id number] prochlorper Base Active Unknown extrapyramidal 2017-07 [place] azine Ingredient symptoms - Dilip venlafaxine Base Active Severe Hives, 2017-07 [place] Ingredient difficulty 08-09 Dilip breathing, itching promethazin Base Active Unknown extrapyramidal 2017-07 [place] e Ingredient symptoms 08-09 Dilip Gadolinium- Allergen [...] mg MD,Radomir tablet tablet traZODone traZODone 2017-07 2018- Stevanovic Unknown Unknown 100 mg 100 mg [...] ondansetron ondansetron 2017-07- No Liz Unknown Unknown HCL 4 mg HCL 4 mg 08-16 ,Jill tablet tablet oxyCODONE [...] Unknown 2 mg tablet 2 mg tablet ,Radompablo dexAMETHaso dexAMETHaso 2017-07- No Liz Unknown Unknown [...] methocarbam methocarbam 2018- No Liz Unknown Unknown oL 750 mg oL 750 mg 10-23 Jill CARRENO tablet tablet [...] 02-03 ,Jill tablet tablet amoxicillin amoxicillin 2018- Liz Unknown Unknown [id number] 12-16 ,Jill [...] Unknown Unknown 250 mg 250 mg 01-01 MD,Ijll tablet tablet oxygen oxygen 2018- No Liz [...] mg tablet 08-16 MD,Jill traZODone traZODone 2017-07 Liz Unknown Unknown 100 mg 100 mg 08-16 MD,Jill tablet tablet gabapentin gabapentin Liz Unknown Unknown 300 mg 300 mg 03-31 MD,Jill capsule capsule DULoxetine DULoxetine 2019- Liz Unknown Unknown 30 mg 30 mg 04-08 MD,Jill capsule,del capsule,del ayed ayed release release flurazepam flurazepam 2019- No Liz Unknown Unknown 15 mg 15 mg 04-08 MD,Jill capsule capsule gabapentin gabapentin Liz Unknown Unknown 300 mg 300 mg 04-08 MD,Jill capsule capsule gabapentin gabapentin Liz Unknown Unknown 300 mg 300 mg [...] mg 600 mg 08-05 MD,Jill tablet tablet dronabinoL dronabinoL 2018-07- No Liz Unknown Unknown 5 mg 5 mg 08-10 MD,Jill capsule capsule Levaquin Levaquin 2018-07- No Liz Unknown Unknown 750 mg 750 mg 09-01 MD,Jill tablet tablet dexAMETHaso dexAMETHaso 2018-07- No Liz Unknown Unknown ne 2 mg ne 2 mg 09-07 MD,Jill tablet tablet Xarelto 20 Xarelto 20 2018-07- No Liz Unknown Unknown mg tablet mg tablet 09-07 ,Jill doxycycline doxycycline 2018-07- No Liz Unknown Unknown monohydrate monohydrate 07-27 Jill CARRENO 100 mg 100 mg capsule capsule TylenoL 325 TylenoL 325 2018-07- No Liz Unknown Unknown mg tablet mg tablet 10-06 ,Jill celecoxib celecoxib 2020- Yes Liz Unknown Unknown [...] capsule,del ayed ayed release release Klor-Con Klor-Con 2019- Yes Liz Unknown Unknown M20 mEq M20 [...] mg 08-17 ,Jill tablet tablet fentanyl fentanyl 2020- Yes Liz Unknown Unknown 150 mcg/hr 150 [...] tablet mg tablet 09-02 MD,Jill levETIRAcet levETIRAcet 2020- Yes Liz Unknown Unknown am 500 mg am 500 mg 08-26 MD,Jill tablet tablet levETIRAcet levETIRAcet 2020- Yes [...] tablet,exte nded nded release release mirtazapine mirtazapine 2020- Yes Liz Unknown Unknown 30 mg 30 mg 09-02 Jill CARRENO tablet tablet Soma 250 mg Soma 250 mg 2020- Yes Liz Unknown Unknown tablet tablet 09-09 Jill CARRENO omeprazole omeprazole 2019- Yes Liz Unknown Unknown 40 40 09-24 Jill CARRENO mg-sodium mg-sodium bicarbonate bicarbonate 1.1 gram 1.1 gram capsule capsule glyBURIDE glyBURIDE Yes Liz Unknown Unknown 2.5 mg 2.5 mg 09-29 Jill CARRENO tablet tablet gabapentin gabapentin 2020- Yes Liz Unknown Unknown 300 mg 300 mg 09-29 ,Jill capsule capsule gabapentin gabapentin 2020- Yes Liz Unknown Unknown 600 mg 600 mg 09-29 Jill CARRENO tablet tablet ALPRAZolam ALPRAZolam Yes Liz Unknown Unknown 1 mg tablet 1 mg tablet 10-06 Jill CARRENO oxyCODONE 5 oxyCODONE 5 Yes Liz Unknown Unknown mg tablet mg tablet 10-06 Jill CARRENO ondansetron ondansetron 0 Yes Liz Unknown Unknown HCL 4 mg HCL 4 mg 10-06 ,Jill tablet tablet Lupron Lupron Yes Liz Unknown Unknown Depot 11.25 Depot 11.25 10-06 Jill CARRENO mg (3 mg (3 month) month) intramuscul intramuscul ar syringe ar syringe kit kit ondansetron ondansetron Yes Liz Unknown Unknown 4 mg 4 mg 10-06 Jill CARRENO disintegrat disintegrat ing tablet ing tablet albuterol albuterol Yes Liz Unknown Unknown sulfate HFA sulfate HFA 10-06 Jill CARRENO 90 90 mcg/actuati mcg/actuati on aerosol on aerosol inhaler inhaler Imodium A-D Imodium A-D Yes Liz Unknown Unknown 2 mg tablet 2 mg tablet 10-06 Jill CARRENO oxygen oxygen Yes Liz Unknown Unknown 10-06 Jill CARRENO Colace 100 Colace 100 2019-0 Yes Liz Unknown Unknown mg capsule mg capsule 10-06 Jill CARRENO Miralax 17 Miralax 17 2019- 2020- Yes Liz Unknown Unknown gram oral gram oral 10-06 Jill CARRENO powder powder packet packet Aloxi 0.25 Aloxi 0.25 2020-0 Yes Liz Unknown Unknown mg/5 mL mg/5 mL 10-06 Jill CARRENO intravenous intravenous solution solution Kadcyla 100 Kadcyla 100 2019-0 Yes Liz Unknown Unknown mg mg 10-06 Jill CARRENO intravenous intravenous solution solution TylenoL 325 TylenoL 325 2019-0 2020- Yes Liz Unknown Unknown mg tablet mg tablet 10-06 Jill CARRENO oxyCODONE oxyCODONE Yes Liz Unknown Unknown 10 mg 10 mg 10-06 Jill CARRENO tablet tablet Klor-Con Klor-Con 0 Yes Liz Unknown Unknown M20 mEq M20 mEq 10-06 Jill CARRENO tablet,exte tablet,exte nded nded release release TylenoL 325 TylenoL 325 2019-0 Yes Liz Unknown Unknown mg tablet mg tablet 10-15 Jill CARRENO cefdinir cefdinir Yes Liz Unknown Unknown 300 mg 300 mg 10-15 Jill CARRENO capsule capsule lactulose lactulose Yes Liz Unknown Unknown 10 gram/15 10 gram/15 10-15 Jill CARRENO mL (15 mL) mL (15 mL) oral oral solution solution nystatin nystatin Yes Liz Unknown Unknown 100,000 100,000 10-15 Jill CARRENO unit/mL unit/mL oral oral suspension suspension levETIRAcet levETIRAcet Yes Liz Unknown Unknown am 500 mg am 500 mg 10-15 ,Jill tablet tablet Vital Signs Vital Name [...]
--- OUTSIDE RECORDS SUMMARY | 2019-10-21 00:56 | XMS REPORT | Continuity of Care Document ---
:1975 External Reference #:[id number] Author Name Randolph Dudley M.D.,FACP (transmitted by agent of provider Leanna Bae) Address [address] [place] [address] Care Team Providers Name Role Phone Julian Livingston DO - Interventional Care Team Information Orthopedic Mechanic Pain Medicine Terrance Rose MD - Orthopaedic Care Team Information Orthopedic Mechanic [phone] Surgery Marleni Richardson MD - Internal Care Team Information Orthopedic Mechanic Medicine Problems Active Problems Provider Date Panic disorder with agoraphobia Robert Serrano M.D. Onset: 05/14/2011 Insomnia Robert Serrano M.D. Onset: 05/14/2011 Tobacco user Robert Serrano M.D. Onset: 05/14/2011 Current tear of lateral cartilage Terrance Rose M.D. Onset: 05/14/2011 AND/OR meniscus of knee Derangement of lateral meniscus oRbert Serrano M.D. Onset: 05/14/2011 Depressive disorder Robert [...] 06/07/2018 Malignant neoplasm of female breast Kristina Galo.Miquel. Onset: 06/07/2018 Secondary malignant neoplasm of liver [...] Not using) Cyclobenzaprine HCL Patricia Cordero, 5mg PHARMACY TECHNOLOGIST Tablets Glyburide Patricia Cordero, 2.5mg Tablets PHARMACY TECHNOLOGIST Carisoprodol 1 tablet po qid Unknown 250mg Fluconazole one by mouth Unknown 200mg Tablets daily x14 days ( started taking 06/23/18) SM Naproxen Sodium 1 tablet po Patricia Cordero, 220mg twice daily PHARMACY TECHNOLOGIST Tablets Fentanyl apply 1 patch Unknown 100mcg/HR [...] Available Procedures Date Code Description Status 08/15/2019 86365 EKG, Interpretation Only Completed 08/11/2019 58957 EEG Recording Awake & Asleep Completed 08/09/2019 25188 EEG Recording In Coma Or Sleep Only Completed 08/09/2019 73066 ECHO Transthorasic Realtime 2D W Doppler & Color Flow Completed Hosp 07/06/2019 05414 EKG, Interpretation Only Completed 07/02/2019 56002 EKG, Interpretation Only Completed 07/18/2016 [id number] Mammogram Completed 07/24/2011 [id number] Colonoscopy Completed Medical Devices Description No Information Available Encounters Type Date Location Provider Dx Diagnosis [facility] Visit [facility] Prieto A40.3 Sepsis due to 11:41a Assoc,pc Sharifa Dudley,FACP Streptococcus Hospitalists pneumoniae G93.49 Other encephalopathy Office Visit 10/15/2019 11:40a [facility] Anshul Willoughby, R41.82 Altered mental Assoc,pc MD status, Hospitalists unspecified K72.90 Hepatic failure, unspecified without coma R06.02 Shortness of breath C50.919 Malignant neoplasm of unsp site of unspecified female breast G89.29 Other chronic pain Office Visit 10/14/2019 [facility] Viky R41.82 Altered mental 11:39a Assoc,pc BENITO Michael status, Hospitalists unspecified A41.9 Sepsis, unspecified organism R29.6 Repeated falls F32.9 Major depressive disorder, single episode, unspecified C50.919 Malignant neoplasm of unsp site of unspecified female breast Office Visit 08/14/2019 [facility] Christian Musa, E87.6 Hypokalemia 9:51a M.[facility] Office Visit 08/13/2019 [facility] G93.40 Encephalopathy, 7:00a [facility] [place], unspecified N.P. G93.2 Benign intracranial hypertension 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 of brain Office Visit 08/13/2019 9:50a [facility] Christian Musa, T40.2x2A Poisoning by oth MTex opioids, intentional self-harm, init encntr E87.6 Hypokalemia Office 08/12/2019 [facility] Christian Musa, R41.82 Altered mental Visit 9:50a [facility] status, unspecified Office 08/12/2019 [facility] Jabier R56.9 Unspecified Visit 7:00a Jennifer Urbina M.D. convulsions G93.40 Encephalopathy, unspecified G93.2 Benign intracranial hypertension 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 of brain Office 08/11/2019 [facility] Jabier R56.9 Unspecified Visit 7:00a Jennifer Urbina M.D. convulsions G93.2 Benign intracranial hypertension G93.40 Encephalopathy, unspecified 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 of brain Office 08/11/2019 [facility] Christian Musa, R11.12 Projectile Visit 9:49a [facility]Tex vomiting Office 08/10/2019 [facility] R41.82 Altered mental Visit 7:00a Jennifer Urbina M.D. status, unspecified G93.2 Benign intracranial hypertension 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 of brain Office Visit 08/10/2019 9:49a [facility] Mellissa J96.00 Acute respiratory Stocking, PLSQL DEVELOPER failure, unsp w hypoxia or hypercapnia J18.1 [...] 9:49a [facility] Mellissa J96.00 Acute respiratory Stocking, PLSQL DEVELOPER failure, unsp w hypoxia or hypercapnia J18.1 Lobar pneumonia, unspecified organism A41.9 Sepsis, unspecified organism R94.5 Abnormal results of liver function studies G93.9 Disorder of brain, unspecified C50.919 Malignant neoplasm of unsp site of unspecified female breast 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 of brain Office Visit 08/08/2019 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 R50.9 Fever, 10:43a [facility] [place] PHARMACY TECHNOLOGIST unspecified Diseases J98.11 Atelectasis M54.2 Cervicalgia R51 Headache C50.919 Malignant neoplasm of unsp site of unspecified female breast 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 of brain Office Visit 06/25/2019 10:00a [facility] Vic Collado, G56.21 Lesion of at [...] 10/14/2019 R41.82 Altered mental status, unspecified Viky [place], PHARMACY TECHNOLOGIST 10/14/2019 A41.9 Sepsis, unspecified organism Viky [place], PHARMACY TECHNOLOGIST 10/14/2019 R29.6 Repeated falls Viky Michael, PHARMACY TECHNOLOGIST 10/14/2019 F32.9 Major depressive disorder, single Viky Mihcael, PHARMACY TECHNOLOGIST episode, unspecified 10/14/2019 C50.919 Malignant neoplasm of unspecified Viky Michael, PHARMACY TECHNOLOGIST site of unspecified female breast 08/15/2019 R94.31 [...] 08/10/2019 J96.00 Acute respiratory failure, Mellissa Stocking, PLSQL DEVELOPER unspecified whether with hypoxia or hypercapnia 08/10/2019 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 of Jabier Urbina M.D. brain 08/10/2019 J18.1 Lobar pneumonia, unspecified Mellissa Stocking, PLSQL DEVELOPER organism 08/10/2019 A41.9 Sepsis, unspecified organism Mellissa Stocking, PLSQL DEVELOPER 08/10/2019 R94.5 Abnormal results of liver function Mellissa Stocking, PLSQL DEVELOPER studies 08/10/2019 G93.9 Disorder of brain, unspecified Mellissa Stocking, PLSQL DEVELOPER 08/10/2019 C50.919 Malignant neoplasm of unspecified Mellissa Stocking, PLSQL DEVELOPER site of unspecified female breast 08/10/2019 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 of Mellissa Stocking, PLSQL DEVELOPER brain 08/10/2019 R41.82 Altered mental status, unspecified Mellissa Stocking, PLSQL DEVELOPER 08/09/2019 R41.82 Altered mental status, unspecified Darren Agustin MD 08/09/2019 R06.89 Other abnormalities of breathing Marshal French M.D. 08/09/2019 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 of Darren Agustin MD brain 08/09/2019 J96.00 Acute respiratory failure, Mellissa Stocking, PLSQL DEVELOPER unspecified whether with hypoxia or hypercapnia 08/09/2019 J18.1 Lobar pneumonia, unspecified Mellissa Stocking, PLSQL DEVELOPER organism 08/09/2019 A41.9 Sepsis, unspecified organism Mellissa Stocking, PLSQL DEVELOPER 08/09/2019 R94.5 Abnormal results of liver function Mellissa Stocking, PLSQL DEVELOPER studies 08/09/2019 G93.9 Disorder of brain, unspecified Mellissa Stocking, PLSQL DEVELOPER 08/09/2019 C50.919 Malignant neoplasm of unspecified Mellissa Stocking, PLSQL DEVELOPER site of unspecified female breast 08/09/2019 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 of Mellissa Stocking, PLSQL DEVELOPER brain 08/08/2019 R41.82 Altered mental status, unspecified [...] Browne MD 07/27/2019 J98.11 Atelectasis Florence Kat, PHARMACY TECHNOLOGIST 07/27/2019 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, Cammy Browne MD bilateral 07/27/2019 R51 Headache Florence Kat, PHARMACY TECHNOLOGIST 07/27/2019 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 of Cammy Browne MD brain 07/27/2019 M54.9 Dorsalgia, unspecified Florence Kat, PHARMACY TECHNOLOGIST 07/27/2019 C50.919 Malignant neoplasm of unspecified Florence Kat, BENITO site of unspecified female breast 07/27/2019 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 of Florence Kat, PHARMACY TECHNOLOGIST brain 07/26/2019 R51 Headache Rosmery Perkins MD 07/26/2019 R50.9 Fever, unspecified Rosmery Perkins MD 07/26/2019 E72.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, Rosmery Perkins MD unspecified 07/26/2019 C50.919 Malignant neoplasm of unspecified Rosmery Perkins MD site of unspecified female breast 07/24/2019 R50.9 Fever, unspecified Florence Kat, PHARMACY TECHNOLOGIST 07/24/2019 J98.11 Atelectasis Florence Kat, PHARMACY TECHNOLOGIST 07/24/2019 M54.2 Cervicalgia Florence Kat, PHARMACY TECHNOLOGIST 07/24/2019 R51 Headache Florence Kat, PHARMACY TECHNOLOGIST 07/24/2019 C50.919 Malignant neoplasm of unspecified Florence Kat, PHARMACY TECHNOLOGIST site of unspecified female breast 07/24/2019 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 of Florence Kat, PHARMACY TECHNOLOGIST brain 07/06/2019 Z13.6 Encounter for screening for Christian Ramos M.D., FACC, cardiovascular disorders [facility] 07/02/2019 R94.31 Abnormal electrocardiogram [ECG] Rocky Miranda MD, FACC, [EKG] [facility] 06/25/2019 G56.21 Lesion of ulnar nerve, right upper Vic Collado MD limb Plan of Treatment Future Appointment(s):10/30/2019 9:00 am - Raj Bowens NP at [facility] Cdiagm4906/25/2019 - Vic Collado MDG56.21 Lesion of ulnar nerve, right upper limbFollow up:Follow up: with [place] after EMG Functional Status Description No Information Available Mental Status Description No Information Available Referrals Description No Information Available
--- OUTSIDE RECORDS SUMMARY | 2019-10-21 00:56 | XMS REPORT | Continuity of Care Document ---
:1975 External Reference #:[id number] Author Name Viky Michael NP (transmitted by agent of provider Leanna Bae) Address [address] [place] [address] Care Team Providers Name Role Phone Julian Livingston DO - Interventional Care Team Information Town Clerk Pain Medicine Terrance Rose MD - Orthopaedic Care Team Information Town Clerk [phone] Surgery Marleni Richardson MD - Internal Care Team Information Town Clerk [phone] Medicine Problems Active Problems Provider Date Panic [...] Not using) Cyclobenzaprine HCL Patricia Cordero, 5mg TOOL AND DIE MAKER APPRENTICE Tablets Glyburide Patricia Cordero, 2.5mg Tablets TOOL AND DIE MAKER APPRENTICE Carisoprodol 1 tablet po qid Unknown 250mg Fluconazole one by mouth Unknown 200mg Tablets daily x14 days ( started taking 06/23/18) SM Naproxen Sodium 1 tablet po Patricia Cordero, 220mg twice daily TOOL AND DIE MAKER APPRENTICE Tablets Fentanyl apply 1 patch Unknown 100mcg/HR [...] Available Procedures Date Code Description Status 08/15/2019 14619 EKG, Interpretation Only Completed 08/11/2019 45060 EEG Recording Awake & Asleep Completed 08/09/2019 25433 EEG Recording In Coma Or Sleep Only Completed 08/09/2019 15363 ECHO Transthorasic Realtime 2D W Doppler & Color Flow Completed Hosp 07/06/2019 95253 EKG, Interpretation Only Completed 07/02/2019 17273 EKG, Interpretation Only Completed 07/18/2016 [id number] Mammogram Completed 07/24/2011 [id number] Colonoscopy Completed Medical Devices Description No Information Available Encounters Type Date Location Provider Dx Diagnosis Office Visit 10/15/2019 [facility] Anshul Willoughby MD R41.82 Altered mental 11:40a Assoc,pc status, unspecified Hospitalists K72.90 Hepatic failure, unspecified without coma R06.02 Shortness of breath C50.919 Malignant neoplasm of unsp site of unspecified female breast G89.29 Other chronic pain Office Visit 10/14/2019 [facility] Viky R41.82 Altered mental 11:39a Assoc,pc Alec TOOL AND DIE MAKER APPRENTICE status, Hospitalists unspecified A41.9 Sepsis, unspecified organism R29.6 Repeated falls F32.9 Major depressive disorder, single episode, unspecified C50.919 Malignant neoplasm of unsp site of unspecified female breast Office Visit 08/14/2019 [facility] Christian Musa, E87.6 Hypokalemia 9:51a M.D. Office Visit 08/13/2019 [facility] Wil[facility]o G93.40 Encephalopathy, 7:00a [facility] [place], unspecified N.P. G93.2 Benign intracranial hypertension 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 of brain Office Visit 08/13/2019 9:50a [facility] Christian Musa, T40.2x2A Poisoning by oth [place]DTrenton opioids, intentional self-harm, init encntr E87.6 Hypokalemia [...] Intensivists Christian Musa, R11.12 Projectile Visit 9:49a Sharifa vomiting Office 08/10/2019 [facility]ier R41.82 Altered mental Visit 7:00a Jennifer Urbina M.D. status, unspecified G93.2 Benign intracranial hypertension 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 of brain Office Visit 08/10/2019 9:49a [facility] Mellissa J96.00 Acute respiratory Stocking, TRAIN OPERATIONS SUPERVISOR failure, unsp w hypoxia or hypercapnia J18.1 [...] 9:49a [facility] Mellissa J96.00 Acute respiratory Stocking, TRAIN OPERATIONS SUPERVISOR failure, unsp w hypoxia or hypercapnia J18.1 Lobar pneumonia, unspecified organism A41.9 Sepsis, unspecified organism R94.5 Abnormal results of liver function studies G93.9 Disorder of brain, unspecified C50.919 Malignant neoplasm of unsp site of unspecified female breast 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 of brain Office Visit 08/08/2019 [facility] R41.82 Altered mental 9:48a Assocmohit MD [...] neoplasm of brain Office Visit 07/27/2019 10:46a [facility] J98.11 Atelectasis Infectious [place] TOOL AND DIE MAKER APPRENTICE Diseases R51 Headache M54.9 Dorsalgia, unspecified C50.919 Malignant neoplasm of unsp site of unspecified female breast 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 of brain Office Visit 07/26/2019 10:21a [facility] Rosmery Perkins MD R51 Headache Hospitalists R50.9 Fever, unspecified E72.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, unspecified C50.919 Malignant neoplasm of unsp site of unspecified female breast Office Visit 07/24/2019 [facility] R50.9 Fever, 10:43a [facility] [place] TOOL AND DIE MAKER APPRENTICE unspecified Diseases J98.11 Atelectasis M54.2 Cervicalgia R51 Headache C50.919 Malignant neoplasm of unsp site of unspecified female breast 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 of brain Office Visit 06/25/2019 10:00a [facility] Vic Collado, G56.21 Lesion of at [...] 10/14/2019 R41.82 Altered mental status, unspecified Viky Michael, TOOL AND DIE MAKER APPRENTICE 10/14/2019 A41.9 Sepsis, unspecified organism Viky Michael, TOOL AND DIE MAKER APPRENTICE 10/14/2019 R29.6 Repeated falls Viky Michael, TOOL AND DIE MAKER APPRENTICE 10/14/2019 F32.9 Major depressive disorder, single Viky Michael, TOOL AND DIE MAKER APPRENTICE episode, unspecified 10/14/2019 C50.919 Malignant neoplasm of unspecified Viky Michael, TOOL AND DIE MAKER APPRENTICE site of unspecified female breast 08/15/2019 R94.31 [...] Jabier Urbina M.D. 08/11/2019 G93.40 Encephalopathy, unspecified Jbaier Urbina M.D. 08/11/2019 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 of Jabier Urbina M.D. brain 08/11/2019 R11.12 Projectile vomiting Christian Musa M.D. 08/10/2019 R41.82 Altered mental status, unspecified Jabier Urbina M.D. 08/10/2019 G93.2 Benign intracranial hypertension Jabier Urbina M.D. 08/10/2019 J96.00 Acute respiratory failure, Mellissa Stocking, TRAIN OPERATIONS SUPERVISOR unspecified whether with hypoxia or hypercapnia 08/10/2019 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 of Jabeir Urbina M.D. brain 08/10/2019 J18.1 Lobar pneumonia, unspecified Mellissa Stocking, TRAIN OPERATIONS SUPERVISOR organism 08/10/2019 A41.9 Sepsis, unspecified organism Mellissa Stocking, TRAIN OPERATIONS SUPERVISOR 08/10/2019 R94.5 Abnormal results of liver function Mellissa Stocking, TRAIN OPERATIONS SUPERVISOR studies 08/10/2019 G93.9 Disorder of brain, unspecified Mellissa Stocking, TRAIN OPERATIONS SUPERVISOR 08/10/2019 C50.919 Malignant neoplasm of unspecified Mellissa Stocking, TRAIN OPERATIONS SUPERVISOR site of unspecified female breast 08/10/2019 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 of Mellissa Stocking, TRAIN OPERATIONS SUPERVISOR brain 08/10/2019 R41.82 Altered mental status, unspecified Mellissa Stocking, TRAIN OPERATIONS SUPERVISOR 08/09/2019 R41.82 Altered mental status, unspecified Darren Agustin MD 08/09/2019 R06.89 Other abnormalities of breathing Marshal French M.D. 08/09/2019 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 of Darren Agustin MD brain 08/09/2019 J96.00 Acute respiratory failure, Mellissa Stocking, TRAIN OPERATIONS SUPERVISOR unspecified whether with hypoxia or hypercapnia 08/09/2019 J18.1 Lobar pneumonia, unspecified Mellissa Stocking, TRAIN OPERATIONS SUPERVISOR organism 08/09/2019 A41.9 Sepsis, unspecified organism Mellissa Stocking, TRAIN OPERATIONS SUPERVISOR 08/09/2019 R94.5 Abnormal results of liver function Mellissa Stocking, TRAIN OPERATIONS SUPERVISOR studies 08/09/2019 G93.9 Disorder of brain, unspecified Mellissa Stocking, TRAIN OPERATIONS SUPERVISOR 08/09/2019 C50.919 Malignant neoplasm of unspecified Mellissa Stocking, TRAIN OPERATIONS SUPERVISOR site of unspecified female breast 08/09/2019 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 of Mellissa Stocking, TRAIN OPERATIONS SUPERVISOR brain 08/08/2019 R41.82 Altered mental status, unspecified Bethnay De Leon MD 08/08/2019 N17.9 Acute kidney [...] Browne MD 07/27/2019 J98.11 Atelectasis Florence Kat, TOOL AND DIE MAKER APPRENTICE 07/27/2019 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, Cammy Browne MD bilateral 07/27/2019 R51 Headache Florence Kat, TOOL AND DIE MAKER APPRENTICE 07/27/2019 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 of Cammy Browne MD brain 07/27/2019 M54.9 Dorsalgia, unspecified Florence Kat, TOOL AND DIE MAKER APPRENTICE 07/27/2019 C50.919 Malignant neoplasm of unspecified Florence Kat, TOOL AND DIE MAKER APPRENTICE site of unspecified female breast 07/27/2019 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 of Florence Kat, TOOL AND DIE MAKER APPRENTICE brain 07/26/2019 R51 Headache Rosmery Perkins MD 07/26/2019 R50.9 Fever, unspecified Rosmery Perkins MD 07/26/2019 E72.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, Rosmery Perkins MD unspecified 07/26/2019 C50.919 Malignant neoplasm of unspecified Rosmery Perkins MD site of unspecified female breast 07/24/2019 R50.9 Fever, unspecified Florence Halinalack Kat, TOOL AND DIE MAKER APPRENTICE 07/24/2019 J98.11 Atelectasis Florence Kat, TOOL AND DIE MAKER APPRENTICE 07/24/2019 M54.2 Cervicalgia Florence Kat, TOOL AND DIE MAKER APPRENTICE 07/24/2019 R51 Headache Florence Kat, TOOL AND DIE MAKER APPRENTICE 07/24/2019 C50.919 Malignant neoplasm of unspecified Florence Kat, TOOL AND DIE MAKER APPRENTICE site of unspecified female breast 07/24/2019 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 of Florence Kat, TOOL AND DIE MAKER APPRENTICE brain 07/06/2019 Z13.6 Encounter for screening for Christian Ramos M.D., FACC, cardiovascular disorders [facility] 07/02/2019 R94.31 Abnormal electrocardiogram [ECG] Rocky Miranda MD, FACC, [EKG] [facility] 06/25/2019 G56.21 Lesion of ulnar nerve, right upper Vic Collado MD limb Plan of Treatment Future Appointment(s):10/30/2019 9:00 am - Raj Bowens NP at [facility] Vjmgng2806/25/2019 - Vic Collado MDG56.21 Lesion of ulnar nerve, right upper limbFollow up:Follow up: with [place] after EMG Functional Status Description No Information Available Mental Status Description No Information Available Referrals Description No Information Available
[2019-10-21 01:10] LABS: Albumin 3.4 g/dL (3.2-5.2); BUN/Creatinine Ratio 20.8 (8-20); Calcium 8.6 mg/dL (8.6-10.3); EGFR African American 171.6 (>60); EGFR Non-African American 141.8 (>60); Globulin 3.4 g/dL (2-4); Potassium 3.3 mmol/L (3.5-5.0); Total Bilirubin 1.3 mg/dL (0.2-1.0); Total Protein 6.8 g/dL (6.4-8.9)
[2019-10-21 01:30] VITALS: BP 160/90
== END 2019-10-21 01:28 | disposition home or self-care (01) ==
LOC: ED 21:26
DX: C50.919 Malignant neoplasm of unspecified site of unspecified female breast (principal); R11.2 Nausea with vomiting, unspecified; E11.9 Type 2 diabetes mellitus without complications; I50.9 Heart failure, unspecified; E78.00 Pure hypercholesterolemia, unspecified; Z86.79 Personal history of other diseases of the circulatory system; F41.9 Anxiety disorder, unspecified; F32.9 Major depressive disorder, single episode, unspecified; F17.210 Nicotine dependence, cigarettes, uncomplicated; Z86.718 Personal history of other venous thrombosis and embolism; Z92.21 Personal history of antineoplastic chemotherapy
CPT/HCPCS: 36415; 80053; 81003; 81015; 82140; 83605; 83690; 84702; 85025; 86140; 87086; 96361; 96374; 96375; 99283; J2060; J2405; J2765

== ENCOUNTER 2019-11-13 16:16 | Emergency (ER) | payer OTHER ==
--- OUTSIDE RECORDS SUMMARY | 2019-11-13 16:31 | XMS REPORT | Continuity of Care Document ---
:1975 External Reference #:[id number] Author Name Gui Garza M.D. (transmitted by agent of provider Patricia Liriano) Address [address], [place] [address] Care Team Providers Name Role Phone Julian Livingston DO - Interventional Care Team Information President + Publisher [phone] Pain Medicine Terrance Rose MD - Orthopaedic Care Team Information President + Publisher [phone] Surgery Jill Hill MD - Hematology & Care Team Information President + Publisher [phone] Oncology Problems Active Problems Provider Date Panic disorder [...] pain Priscilla Fay M.D. Onset: 05/07/2012 Palpitations Prsicilla Fay M.D. Onset: 05/07/2012 Dyspnea Priscilla Fay [...] quit off and on Smoking Status Reviewed: 11/05/19 Patient is a current Began smoking at [...] Medications SIG Qnty Indications Ordering Date Provider Sumatriptan Succinate inject one 3ml G43.719 Gui Orozco 11/06/2019 syringe qd prn Sharifa Garza 6mg/0.5ML Solution migraine max 2 Auto-Inject days/wk Zonisamide 1 po qhs for 1 120caps G43.719 Gui Orozco 11/06/2019 25mg Capsules wk then 2 qhs Sharifa Garza for 1 wk then 3 qhs for 1 wk then 4 qhs Colace 2 tab in am and 90caps Marshal Prieto 08/25/2018 100mg Capsules 2 tab in pm Sharifa French Spiriva Respimat inhale two puffs 12units Maine Herman, 12/17/2017 by mouth every MD 1.25mcg/Act Aerosol day ( Not using) Cyclobenzaprine HCL CorderoPatricia santana, 5mg C[employer]ER MARKETING MANAGER Tablets Glyburide Cordero, Patricia, 2.5mg Tablets CUSTOMER MARKETING MANAGER Carisoprodol 1 tablet po qid Unknown 250mg Fluconazole one by mouth Unknown 200mg Tablets daily x14 days ( started taking 06/23/18) SM Naproxen Sodium 1 tablet po Patricia Cordero, 220mg twice daily C[employer]ER MARKETING MANAGER Tablets Fentanyl apply 1 patch Unknown 100mcg/HR Patches every 3 days 72HR Cymbalta 1 by mouth bid Unknown 30mg Caps DR Kiran Symbicort 1 puff twice a 12gm [facility], 160-4.5mcg/Act day ( Not using MD Aerosol [...] Available Procedures Date Code Description Status 08/15/2019 39989 EKG, Interpretation Only Completed 08/11/2019 69028 EEG Recording Awake & Asleep Completed 08/09/2019 89714 EEG Recording In Coma Or Sleep Only Completed 08/09/2019 49755 ECHO Transthorasic Realtime 2D W Doppler & Color Flow Completed Hosp 07/06/2019 89627 EKG, Interpretation Only Completed 07/02/2019 16064 EKG, Interpretation Only Completed 07/18/2016 71245330 Mammogram Completed 07/24/2011 26306168 Colonoscopy Completed Medical Devices Description No Information Available Encounters Type Date Location Provider Dx Diagnosis Office Visit 10/16/2019 [facility] Randolph Prieto A40.3 Sepsis due to 11:41a mohit Ibarra M.D.,FACP Streptococcus Hospitalists pneumoniae G93.49 Other encephalopathy Office Visit 10/15/2019 11:40a [facility] Anshul Willoughby R41.82 Altered mental Assmohit capone MD status, Hospitalists unspecified K72.90 Hepatic failure, unspecified without coma R06.02 Shortness of breath C50.919 Malignant neoplasm of unsp site of unspecified female breast G89.29 Other chronic pain Office Visit 10/14/2019 [facility] Viky R41.82 Altered mental 11:39a mohit Ibarra NP status, Hospitalists unspecified A41.9 Sepsis, unspecified [...] Intensivists Christian Musa, T40.2x2A Poisoning by oth M.Jitendra. opioids, intentional self-harm, init encntr E87.6 Hypokalemia Office 08/12/2019 [facility] Christian Musa, R41.82 Altered mental Visit 9:50a M.DTrenton status, unspecified Office 08/12/2019 [facility] Jabier R56.9 [...] 9:49a Intensivists Mellissa J96.00 Acute respiratory Stocking, [employer]ARK SUPERINTENDENT failure, unsp w hypoxia or hypercapnia J18.1 [...] 9:49a Intensivists Mellissa J96.00 Acute respiratory Stocking, [employer] SUPER[employer]ENDENT failure, unsp w hypoxia or hypercapnia J18.1 Lobar pneumonia, unspecified organism A41.9 Sepsis, unspecified organism R94.5 Abnormal results of liver function studies G93.9 Disorder of brain, unspecified C50.919 Malignant neoplasm of unsp site of unspecified female breast 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 of brain Office Visit 08/08/2019 [facility] R41.82 Altered mental 9:48a Assoc,pc MD Haley [...] neoplasm of brain Office Visit 07/27/2019 10:46a [facility] Florence Amos J98.11 Atelectasis [facility] [place] [employer]ER MARKETING MANAGER Diseases R51 Headache M54.9 Dorsalgia, unspecified C50.919 Malignant neoplasm of unsp site of unspecified female breast 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 of brain Office Visit 07/26/2019 10:21a [facility] Assestelita,mohit Perkins MD R51 Headache Hospitalists R50.9 Fever, unspecified E72.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, unspecified C50.919 Malignant neoplasm of unsp site of unspecified female breast Office Visit 07/24/2019 [facility] Florence Amos R50.9 Fever, 10:43a [facility] C[employer]ER MARKETING MANAGER unspecified Diseases J98.11 Atelectasis M54.2 Cervicalgia R51 Headache C50.919 Malignant neoplasm of unsp site of unspecified female breast 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 of brain Office Visit 06/25/2019 10:00a [facility] Vic Collado, G56.21 Lesion of at [place] ulnar nerve, right upper limb Assessments Date Code Description Provider 11/06/2019 C50.919 Malignant neoplasm of unspecified Gui Garza M.D. site of unspecified female breast 11/06/2019 R51 Headache Gui Garza M.D. 11/06/2019 C71.9 Malignant neoplasm of brain, Gui Garza M.D. unspecified 11/06/2019 G43.719 Chronic migraine without aura, Gui Garza M.D. intractable, without status migrainosus 10/16/2019 A40.3 Sepsis due to Streptococcus Randolph [...] R41.82 Altered mental status, unspecified Viky Alec, C[employer]ER MARKETING MANAGER 10/14/2019 A41.9 Sepsis, unspecified organism Viky Modoc, CUST[employer]ER MARKETING MANAGER 10/14/2019 R29.6 Repeated falls Viky Alec, CUST[employer]ER MARKETING MANAGER 10/14/2019 F32.9 Major depressive disorder, single Viky Modoc, C[employer]ER MARKETING MANAGER episode, unspecified 10/14/2019 C50.919 Malignant neoplasm of unspecified Viky Alec, CUSTOMER MARKETING MANAGER site of unspecified female breast 08/15/2019 R94.31 Abnormal electrocardiogram [ECG] Valery Tsang M.D. [EKG] 08/14/2019 E87.6 Hypokalemia Christian Musa M.D. 08/13/2019 G93.40 Encephalopathy, unspecified Wilfredo Thao, N.P. 08/13/2019 T40.2x2A Poisoning by other opioids, Christian Musa M.D. intentional self-harm, initial encounter 08/13/2019 G93.2 Benign intracranial hypertension Kristina Aquino.P. 08/13/2019 E87.6 Hypokalemia Christian Musa M.D. 08/13/2019 [...] 08/10/2019 J96.00 Acute respiratory failure, Mellissa Stocking, [employer]ARK SUPERINTENDENT unspecified whether with hypoxia or hypercapnia 08/10/2019 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 of Jabier Urbina M.D. brain 08/10/2019 J18.1 Lobar pneumonia, unspecified Mellissa Stocking, [employer] SUPERINTENDENT organism 08/10/2019 A41.9 Sepsis, unspecified organism Mellissa Stocking, [employer] SUPERINTENDENT 08/10/2019 R94.5 Abnormal results of liver function Mellissa Stocking, [employer] SUPERINTENDENT studies 08/10/2019 G93.9 Disorder of brain, unspecified Mellissa Stocking, [employer]ARK SUPERINTENDENT 08/10/2019 C50.919 Malignant neoplasm of unspecified Mellissa Stocking, P[employer] SUPERINTENDENT site of unspecified female breast 08/10/2019 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 of Mellissa Stocking, [employer] SUPERINTENDENT brain 08/10/2019 R41.82 Altered mental status, unspecified Mellissa Stocking, PARK SUPERINTENDENT 08/09/2019 R41.82 Altered mental status, unspecified Darren Agustin MD 08/09/2019 R06.89 Other abnormalities of breathing Marshal French M.D. 08/09/2019 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 of Darren Agustin MD brain 08/09/2019 J96.00 Acute respiratory failure, Mellissa Stocking, [employer] SUPERINTENDENT unspecified whether with hypoxia or hypercapnia 08/09/2019 J18.1 Lobar pneumonia, unspecified Mellissa Stocking, [employer] SUPERINTENDENT organism 08/09/2019 A41.9 Sepsis, unspecified organism Mellissa Stocking, [employer] SUPERINTENDENT 08/09/2019 R94.5 Abnormal results of liver function Mellissa Stocking, [employer] SUPERINTENDENT studies 08/09/2019 G93.9 Disorder of brain, unspecified Mellissa Stocking, [employer] SUPERINTENDENT 08/09/2019 C50.919 Malignant neoplasm of unspecified Mellissa Stocking, PARK SUPERINTENDENT site of unspecified female breast 08/09/2019 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 of Mellissa Stocking, PARK SUPERINTENDENT brain 08/08/2019 R41.82 Altered mental status, unspecified Behtany De Leon MD 08/08/2019 N17.9 Acute kidney [...] Browne MD 07/27/2019 J98.11 Atelectasis Florence Kat, C[employer]ER MARKETING MANAGER 07/27/2019 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, Cammy Browne MD bilateral 07/27/2019 R51 Headache Florence Kat, C[employer]ER MARKETING MANAGER 07/27/2019 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 of Cammy Browne MD brain 07/27/2019 M54.9 Dorsalgia, unspecified Florence Amos Kat, CUSTOMER MARKETING MANAGER 07/27/2019 C50.919 Malignant neoplasm of unspecified Florence Amos Kat, CUSTOMER MARKETING MANAGER site of unspecified female breast 07/27/2019 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 of Florence Kat, CUSTOMER MARKETING MANAGER brain 07/26/2019 R51 Headache Rosmery Perkins MD 07/26/2019 R50.9 Fever, unspecified Rosmery Perkins MD 07/26/2019 E72.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, Rosmery Perkins MD unspecified 07/26/2019 C50.919 Malignant neoplasm of unspecified Rosmery Perkins MD site of unspecified female breast 07/24/2019 R50.9 Fever, unspecified Florence Kat, CUSTOMER MARKETING MANAGER 07/24/2019 J98.11 Atelectasis Florence Kat, CUSTOMER MARKETING MANAGER 07/24/2019 M54.2 Cervicalgia Florencemack Kat, CUSTOMER MARKETING MANAGER 07/24/2019 R51 Headache Florence Kat, CUSTOMER MARKETING MANAGER 07/24/2019 C50.919 Malignant neoplasm of unspecified Florence Amos Kat, CUSTOMER MARKETING MANAGER site of unspecified female breast 07/24/2019 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 of Florence Amos Kat, CUSTOMER MARKETING MANAGER brain 07/06/2019 Z13.6 Encounter for screening for Christian Ramos M.D., FACC, cardiovascular disorders [facility] 07/02/2019 R94.31 Abnormal electrocardiogram [ECG] Rocky Miranda MD, FACC, [EKG] [facility] 06/25/2019 G56.21 Lesion of ulnar nerve, right upper Vic Collado MD limb Plan of Treatment 11/06/2019 - Gui Garza M.D.C50.919 Malignant neoplasm of unspecified site of unspecified female [id number] HeadacheFollow up:I need Discharge summary from most recent hospitalization, and Dr. Hill's last office note. One to 2 months, telemedicine with EricC71.9 Malignant neoplasm of brain, zzpiwyvibfzE59.719 Chronic migraine without aura, intractable, without status migrainosusNew Medication:Sumatriptan Succinate 6 mg/0.5ML - inject one syringe qd prn migraine max 2 days/wkZonisamide 25 mg - 1 po qhs for 1 wk then 2 qhs for 1 wk then 3 qhs for 1 wk then 4 qhs Functional Status Description No Information Available Mental Status Description No Information Available Referrals Description No Information Available
--- OUTSIDE RECORDS SUMMARY | 2019-11-13 16:31 | XMS REPORT ---
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, disorder, RN recurrent, recurrent, unspecified unspecified Anxiety Anxiety Diagnosis Active Kaylynn disorder, disorder, [place] unspecified unspecified RN Pain frequent Pain Mgmt Resolve 2017-072018-08-27 Love pain d 08-16 15:00:00 Gaston 10:20: [id number] 00 Respiratory smoker Respirator Resolve 2017-072018-07-23 Love y d 08-16 15:00:00 Gaston 10:20: [id number] 00 Endo/Jose anti-coagul Endo/Jose Resolve 2017-072018-06-25 Love ation d 08-16 15:00:00 Gaston therapy 10:20: [id number] 00 Nutrition nutritional Nutrition Resolve 2017-072018-07-04 Love restriction d 08-16 15:00:00 Gaston s 10:20: [id number] 00 Neuro confusion Neuro/Emot Resolve 2017-072018-08-06 Love present ion d 08-16 15:00:00 Gaston 10:20: [id number] 00 Neuro anxiety Neuro/Emot Resolve 2017-072018-08-06 Love present ion d 08-16 15:00:00 Gaston 10:20: [id number] 00 Neuro depressive Neuro/Emot Resolve 2017-072018-08-06 Love feelings ion d 08-16 15:00:00 Gaston present 10:20: [id number] 00 Safety risk for Safety Resolve 2017-072018-07-04 Love hospitaliza d 08-16 15:00:00 Gaston tion 10:20: [id number] 00 Safety fall risk Safety Resolve 2017-072018-07-04 Ericka factor d 08-16 15:00:00 Vivian present 10:20: 00 Musculoskel requires Musculoske Unknown 2017-07 Love etal human letal 08-16 Gaston assist to 10:20: [id number] leave home 00 Cardio hypertensio Cardiovasc Resolve [...] d 2-10 15:00:00 [place] deficit Services 14:00: [id number] 00 Social knowledge/s BRISEYDA: Resolve 2017-072018-09-22 Kezia Services kill Social d 2-10 13:00:00 [place] deficit - Services 14:00: [id number] pt 00 Social knowledge/s BRISEYDA: Resolve 2017-072018-09-22 Kezia Services kill Social d 2-10 13:00:00 [place] deficit - Services 14:00: [id number] cg 00 Musculoskel requires Musculoske Unknown 2017-07 Shelby etal human letal 2- Vallely assist to 15:30: leave home 00 Diagnoses knowledge/s Diagnoses Active 2017-07 Kezia kill 224 [place] deficit: cg 13:00: [id number] 00 Integument skin Integument Resolve 2017-072018-08-06 Shelby [...] present 13:15: 00 Safety risk for Safety Resolve 2019-10-28 Kezia hospitaliza d 2-18 13:00:00 [place] tion 14:00: [id number] 00 Safety can be left Safety Unknown Kezia alone for 2-18 [place] only short 14:00: [id number] periods 00 Pain frequent Pain Mgmt Resolve 2018-09-24 Lam pain d 2-27 15:00:00 Briones 15:50: [id number] 00 Safety can be left Safety Resolve 2018-10-08 Kezia alone for d 3-04 15:00:00 [place] only short 13:00: [id number] periods 00 Cardio edema Cardiovasc Resolve 2018-10-08 [...] 15:00: 00 Musculoskel requires Musculoske Unknown Shelby ageel human letal 3-20 Vallely assist to 15:00: [...] Lam feelings ion 4-08 Briones present 15:45: [id number] 00 Respiratory lung sounds Respirator Resolve 2018-10-29 Shelby deficit y d 4-10 13:00:00 Vallely 13:00: 00 Infection s/s of Infection Resolve 2019-02-04 Shelby infection d 4-17 12:30:00 Vallely 13:00: 00 Respiratory smoker Respirator Resolve 2018-11-05 Shelby y d 4-17 13:00:00 Vallely 13:00: 00 Neuro depressive Neuro/Emot Resolve 2018-12-10 Lam feelings ion d 420 12:30:00 Briones present 12:20: [id number] 00 Respiratory smoker Respirator Resolve 2018-11-20 Shelby [...] 11-26 13:30:00 [place] deficit - Services 13:30: [id number] pt 00 Respiratory lung sounds Respirator Resolve [...] soni n d 12-18 12:30:00 Narendra 12:30: [id number] 00 Respiratory lung sounds Respirator Resolve 2018-12-24 [...] restriction d 01-16 12:30:00 [place] s 15:00: [id number] 00 Safety can be left Safety Resolve 2019-02-18 Kezia alone for d 01-16 12:10:00 [place] only short 15:00: [id number] periods 00 Respiratory smoker Respirator Resolve 2019-01-21 [...] Social 7-12 [place] deficit - Services 14:00: [id number] cg 00 Respiratory lung sounds Respirator Resolve [...] Kezia feelings ion 02-18 [place] present 14:30: [id number] 00 Respiratory lung sounds Respirator Resolve 2019-03-04 [...] d 03-12 12:30:00 [place] only short 15:30: [id number] periods 00 Respiratory smoker Respirator Resolve 2019-03-12 [...] 13:30: 00 Neuro depressive Neuro/Emot Resolve 2018-072019-07-28 Hselby feelings ion d 0-02 12:30:00 Vallely present [...] d 0-14 12:45:00 [place] only short 15:00: [id number] periods 00 Musculoskel requires Musculoske Unknown 2018-07 [...] alone for 12 [place] only short 15:30: [id number] periods 00 Respiratory smoker Respirator Resolve 2018-072019-07-09 [...] Respirator Resolve 2019-08-19 Shelby treatments y d - 12:30:00 Vallely in home 12:30: 00 Respiratory [...] required 12:30: 00 Safety fall risk Safety Resolve 2019-11-04 Shelby factor d 07-28 11:10:00 Vallely present 12:30: 00 Medication potential Meds Resolve 2019-07-28 Shelby clinically d 07-28 12:30:00 Vallely significant 12:30: medication 00 issue Neuro depressive Neuro/Emot Unknown Shelby feelings ion 08-05 Vallely present 12:30: 00 Medication potential Meds Resolve 2019-09-30 Shelby clinically d 08-05 12:30:00 Vallely significant 12:30: medication 00 issue Endo/Jose diabetic Endo/Jose Unknown Kezia foot care 08-05 [place] 14:00: [id number] 00 Social financial BRISEYDA: Active 2019- Kezia Services resource Social 08-05 [facility] deficit Services 14:00: [id number] 00 Integument skin Integument Active 2019- Love integrity 08-17 Gaston risk 10:30: [id number] 00 Elimination urinary Eliminatio Resolve 2019-2019-08-19 Love incontinenc n d 08-17 12:30:00 Gaston e 10:30: [id number] 00 Elimination bowel Eliminatio Resolve 2019-09-02 Love incontinenc n d 08-17 12:30:00 Gaston e 10:30: [id number] 00 Elimination diarrhea Eliminatio Resolve 2019-09-02 Love n d 08-17 12:30:00 Gaston 10:30: [id number] 00 Neuro confusion Neuro/Emot Active 2019- Love present ion 08-17 Gaston 10:30: [id number] 00 Neuro anxiety Neuro/Emot Active 2019-0 Love present ion 08-17 Gaston 10:30: [id number] 00 Neuro impaired Neuro/Emot Active 2019-0 Love decision-ma ion 08-17 Gaston wilmer 10:30: [id number] 00 Neuro memory Neuro/Emot Active 2019- Love deficit ion 08-17 Gaston needing 10:30: [id number] supervision 00 Activity self-care Activity Resolve 2019-10-28 Love deficit d 08-17 13:00:00 Gaston 10:30: [id number] 00 Medication oral med Meds Resolve 2019-09-30 Love assistance d 08-17 12:30:00 Gaston required 10:30: [id number] 00 Musculoskel transfer Musculoske Resolve 2019-10-28 Love etal assistance letal d 08-17 13:00:00 Gaston required 10:30: [id number] 00 Musculoskel requires Musculoske Unknown Love etal human letal 08-17 Gaston assist to 10:30: [id number] leave home 00 Respiratory smoker Respirator Resolve 2019-08-20 Shelby ma 08-19 16:15:00 Vallely 12:30: 00 Neuro knowledge/s Neuro/Emot Active Shelby woodson ion 1- Vallely deficit: pt 12:30: 00 Medication knowledge/s Meds Unknown Shelby kill 1- Vallely deficit: cg 12:30: 00 Respiratory oxygen Respirator Resolve 2019-08-26 Shelby treatments y d 1- 12:30:00 Vallely in home 16:15: 00 Neuro knowledge/s Neuro/Emot Unknown Shelby woodson ion 2- Vallely deficit: pt 12:30: 00 Medication knowledge/s Meds Resolve 2019-09-30 Shelby kill d 2- 12:30:00 Vallely deficit: cg 12:30: 00 Musculoskel requires Musculoske Resolve 2019-10-28 Shelby etal human letal d 2- 13:00:00 Vallely assist to 12:30: leave home 00 Balance/End endurance PT/OT: Resolve 2019-09-09 Lam urance deficit Balance/En d 2- 15:45:00 Briones durance 15:35: [id number] 00 Balance/End knowledge/s PT/OT: Resolve 2019-09-09 Lam urance kill Balance/En d 2- 15:45:00 Briones deficit: pt durance 15:35: [id number] 00 Gait/Locomo knowledge/s PT/OT: Resolve 2019-09-09 Lam tion kill Gait/Locom d 2- 15:45:00 Briones problems deficit: pt otion 15:35: [id number] 00 Gait/Locomo knowledge/s PT/OT: Resolve 2019-09-09 Lam tion kill Gait/Locom d 2- 15:45:00 Briones problems deficit: cg otion 15:35: [id number] 00 Gait/Locomo gait PT/OT: Resolve 2019-09-09 Lam tion deficit Gait/Locom d 2- 15:45:00 Briones problems otion 15:35: [id number] 00 Respiratory oxygen Respirator Resolve 2019-09-02 Shelby treatments y d 2- 12:30:00 Vallely in home 12:30: 00 Respiratory oxygen Respirator Resolve 0 2019 Shelby treatments y d 2-14 12:20:00 Vallely in home 12:20: 00 Respiratory smoker Respirator Resolve 2019-0 2019 Shelby y d 2-14 12:20:00 Vallely 12:20: 00 Respiratory oxygen Respirator Resolve 2019-0 2019-09-09 Shelby treatments y d 2-19 11:00:00 Vallely in home 11:00: 00 Respiratory smoker Respirator Resolve 2019-0 2019-09-09 Shelby y d 2- 11:00:00 Vallely 11:00: 00 Respiratory oxygen Respirator Resolve 2019-0 2019-09-16 Shelby treatments y d 2- 12:30:00 Vallely in home 12:30: 00 Respiratory smoker Respirator Resolve 2019-0 2019-09-16 Shelby y d 2- 12:30:00 Vallely 12:30: 00 Respiratory oxygen Respirator Resolve 2019-0 2019-09-25 Shelby treatments y d 3-03 15:00:00 Vallely in home 14:00: 00 Respiratory smoker Respirator Resolve 2019-0 2019-09-22 Shelby y d 3-03 14:00:00 Vallely 14:00: 00 Respiratory dyspnea Respirator Resolve 2019-0 2019-09-25 Shelby present y d 3-06 15:00:00 Vallely 15:00: 00 Respiratory smoker Respirator Resolve 2019-0 2019-09-25 Shelby y d 3-06 15:00:00 Vallely 15:00: 00 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: Active Shelby urance rdination Balance/En 09-24 Vallely deficit durance 15:00: 00 Gait/Locomo gait PT/OT: Active Shelby tion deficit Gait/Locom -06 Vallely problems otion 15:00: 00 Endo/Jose knowledge/s Endo/Jose Resolve 2019-09-30 Shelby kill d 3- 12:30:00 Vallely deficit: pt 12:30: 00 Endo/Jose glucose Endo/Jose Active Shelby testing 09-29 Vallely dependence 12:30: 00 Endo/Jose diabetic Endo/Jose Active Kaylynn foot care 3 [place] 18:10: RN 00 Elimination urinary Eliminatio Resolve 2019-10-28 Kaylynn incontinenc n d 3 13:00:00 [place] e 18:10: RN 00 Respiratory dyspnea Respirator Active Kaylynn present y 10-20 [place] 11:00: RN 00 Respiratory oxygen Respirator Active Kaylynn treatments y 10-20 [place] in home 11:00: RN 00 Respiratory smoker Respirator Resolve 2019-11-04 Kaylynn y d 4 11:10:00 [place] 11:00: RN 00 Neuro depressive Neuro/Emot Active Kaylynn feelings ion 10-20 [place] present 11:00: RN 00 Safety risk for Safety Resolve 2019-11-04 Kaylynn hospitaliza d 11-03 11:10:00 [place] tion 11:10: RN 00 Musculoskel requires Musculoske Active Kaylynn etal human letal 11-03 [place] assist to 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 00 Elimination urinary Eliminatio Active Kaylynn urgency n 4- [place] 11:08: RN 00 Elimination urinary Eliminatio Active Kaylynn frequency n 4- [place] 11:08: RN 00 Allergies, Adverse Reactions, Alerts Allergy Allergy Status Severity Reaction(s) Onset Inactive Treating Comments Name Type Date Date Clinician phenergan Unknown Active Unknown Reaction Ernestine Unknown 3-23 (Robert) [place] [id number] effexor Unknown Active Unknown Reaction Ernestine Unknown 3-23 (Robert) [place] [id number] compazine Unknown Active Unknown Reaction Ernestine Unknown 3-23 (Robert) [place] [id number] adhesive Unknown Active Unknown Reaction Ernestine tape Unknown 3-23 (Robert) [place] [id number] milk Unknown Active Unknown Reaction Ernestine Unknown 3-23 (Robert) [place] [id number] prochlorper Base Active Unknown extrapyramidal 2017-07 [place] azine Ingredient symptoms - Dilip venlafaxine Base Active Severe Hives, 2017-07 [place] Ingredient difficulty 1-19 Dilip breathing, itching promethazin Base Active Unknown extrapyramidal 2017-07 Christianne e Ingredient symptoms 08-09 Dilip Gadolinium- Allergen Active Severe Anaphylaxis Shelby Containing Group 04-16 [place] Contrast Media Medications Ordered Filled Start Stop Current Ordering Indication Dosage Frequency Signature Comments Components Medication Medication Date Date Medication? Clinician (SIG) Name Name ALPRAZolam ALPRAZolam 2017-07 Liz Unknown Unknown 1 mg tablet 1 [...] Stevanovic 2 Unknown MD,Radomir liters ondansetron ondansetron 2017-07- No Liz Unknown Unknown HCL 4 mg HCL 4 mg 08-16 Jill CARRENO tablet tablet [...] tablet Bactrim DS Bactrim DS 2017-07- No Ilz Unknown Unknown 800 mg-160 800 mg-160 09-02 [...] Unknown tablet tablet 08-06 Jill CARRENO [facility] 2019- No Liz Unknown Unknown 100,000 100,000 08-02 Jill ACRRENO unit/gram unit/gram topical topical powder powder fluconazole fluconazole 2018- No Liz Unknown Unknown 100 mg 100 mg 1-12 01-19 ,Jill tablet tablet levoFLOXaci levoFLOXaci 2018- No Liz Unknown Unknown n 750 mg n 750 mg 08-05 ,Jill tablet tablet Triple Triple 2019- No Schwed Unknown Unknown Antibiotic- Antibiotic- 09-16 Darren CARRENO Pain Relief Pain Relief 3.5 mg-500 3.5 mg-500 unit-10,000 unit-10,000 unit/gram unit/gram ointmnt ointmnt fentaNYL 25 fentaNYL 25 2018- No Liz Unknown Unknown mcg/hr mcg/hr 10-01 Jill CARRENO transdermal transdermal patch patch methocarbam methocarbam 2018- No Liz Unknown Unknown oL 750 mg oL 750 mg 10-23 ,Jill tablet tablet pantoprazol pantoprazol 2019- No Liz Unknown Unknown e 40 mg e 40 mg 10-29 ,Jill tablet,suzan tablet,suzan yed release yed release cetirizine cetirizine 2019- No Liz Unknown Unknown 10 mg 10 mg 10-29 ,Jill tablet tablet ondansetron ondansetron 2019- No Liz [...] vinorelbine 2018- No Liz Unknown Unknown 11-25 Jill CARRENO metroNIDAZO metroNIDAZO 2018- No Liz [...] mg 04-08 ,Jill capsule capsule traZODone traZODone Liz Unknown Unknown 100 mg 100 mg 04-15 ,Jill tablet tablet Augmentin Augmentin 2018-07 Liz Unknown Unknown 875 mg-125 875 mg-125 005-01 ,Jill mg tablet mg tablet Kadcyla 100 Kadcyla 100 2018-07 Liz Unknown Unknown mg mg 010-06 ,Jill intravenous intravenous solution solution sulfacetami sulfacetami 2018-07 No Liz Unknown Unknown de sodium de sodium 08-05 ,Jill 10 % eye 10 % eye drops drops gabapentin gabapentin 2018-07- Liz Unknown Unknown 600 mg 600 mg 08-05 ,Jill tablet tablet dronabinoL dronabinoL 2018-07- Liz Unknown Unknown 5 mg 5 mg 08-10 ,Jill capsule capsule Levaquin Levaquin 2018-07 Liz Unknown Unknown 750 mg 750 mg 09-01 ,Jill tablet tablet dexAMETHaso dexAMETHaso 2018-07 No Liz Unknown Unknown ne 2 mg ne 2 mg 09-07 ,Jill tablet tablet Xarelto 20 Xarelto 20 2018-07 No Liz Unknown Unknown mg tablet mg tablet 09-07 ,Jill doxycycline doxycycline 2018-07- Liz Unknown Unknown monohydrate monohydrate 07-27 ,Jill 100 mg 100 mg capsule capsule TylenoL 325 TylenoL 325 2018-07- No Liz Unknown Unknown mg tablet mg tablet 10-06 ,Jill celecoxib celecoxib Liz Unknown Unknown 100 mg 100 mg 07-27 ,Jill capsule capsule Dilaudid 4 Dilaudid 4 Liz Unknown Unknown mg tablet mg tablet 07-27 ,Jill dexAMETHaso dexAMETHaso Liz Unknown Unknown ne 2 mg ne 2 mg 07-27 ,Jill tablet tablet Xarelto 20 Xarelto 20 2020-0 2020- No Liz Unknown Unknown mg tablet mg tablet 07-27 ,Jill Symbicort Symbicort No Liz Unknown Unknown 160 mcg-4.5 160 mcg-4.5 07-27 Jill CARRENO mcg/actuati mcg/actuati on HFA on HFA aerosol aerosol inhaler inhaler DULoxetine DULoxetine 2020- No Liz Unknown Unknown 60 mg 60 mg 07-27 ,Jill capsule,del capsule,del ayed ayed release release Klor-Con Klor-Con 2020- No Liz Unknown Unknown M20 mEq M20 mEq 07-27 ,Jill tablet,exte tablet,exte nded nded release release traZODone traZODone 2019- No Liz Unknown Unknown 100 mg 100 mg 07-27 ,Jill tablet tablet Klor-Con Klor-Con 2020- No Liz Unknown Unknown M20 mEq M20 mEq [...] Unknown Unknown mg tablet mg tablet 08-17 Jill CARRENO levETIRAcet levETIRAcet 2020- Yes Liz Unknown Unknown am 500 mg am 500 mg 08-19 ,Jill tablet tablet oxyCODONE oxyCODONE 2020- Yes Liz Unknown Unknown 10 mg 10 mg 08-19 ,Jill tablet tablet anastrozole anastrozole 2020- Yes Liz Unknown Unknown 1 mg tablet 1 mg tablet 08-19 ,Jill Rexulti 2 Rexulti 2 0 Yes Liz Unknown Unknown mg tablet [...] Unknown Unknown M20 mEq M20 mEq 08-19 Jill CARRENO tablet,exte tablet,exte nded nded release release levETIRAcet levETIRAcet 2020- Yes Liz Unknown Unknown am 500 mg am 500 mg 08-19 ,Jill tablet tablet anastrozole anastrozole Yes Liz Unknown Unknown 1 mg tablet 1 mg tablet 08-19 ,Jill oxyCODONE oxyCODONE 2020- Yes Liz Unknown Unknown 10 mg 10 mg 08-19 ,Jill tablet tablet oxyCODONE 5 oxyCODONE 5 2020-0 2020- Yes Liz Unknown Unknown mg tablet mg tablet 09-02 ,Jill levETIRAcet levETIRAcet 2020- Yes Liz Unknown Unknown am 500 mg am 500 mg 08-26 MD,Jill tablet tablet levETIRAcet levETIRAcet 2020- Yes Liz Unknown Unknown am 250 mg am 250 mg 08-26 ,Jill tablet tablet ALPRAZolam ALPRAZolam 2020- Yes Liz [...] Unknown Unknown 30 mg 30 mg 09-02 ,Jill tablet tablet Soma 250 mg Soma 250 mg 2020- Yes Liz Unknown Unknown tablet tablet 09-09 ,Jill omeprazole omeprazole 2019-0 Yes Liz Unknown Unknown 40 40 09-24 ,Jill mg-sodium mg-sodium bicarbonate bicarbonate 1.1 gram 1.1 gram capsule capsule glyBURIDE glyBURIDE Yes Liz Unknown Unknown 2.5 mg 2.5 mg 09-29 MD,Jill tablet tablet gabapentin gabapentin 2020- Yes Liz Unknown Unknown 300 mg 300 mg 09-29 ,Jill capsule capsule gabapentin gabapentin 2020- Yes Liz Unknown Unknown 600 mg 600 mg 09-29 ,Jill tablet tablet ALPRAZolam ALPRAZolam 2020-0 Yes Liz Unknown Unknown 1 mg tablet 1 mg tablet 10-06 Jill CARRENO oxyCODONE 5 oxyCODONE 5 2019-0 2020- Yes Liz Unknown Unknown mg tablet mg tablet 10-06 Jill CARRENO ondansetron ondansetron 0 2020- Yes Liz Unknown Unknown HCL 4 mg HCL 4 mg 10-06 Jill CARRENO tablet tablet Lupron Lupron 0 Yes Liz Unknown Unknown Depot 11.25 Depot 11.25 10-06 Jill CARRENO mg (3 mg (3 month) month) intramuscul intramuscul ar syringe ar syringe kit kit ondansetron ondansetron 0 Yes Liz Unknown Unknown 4 mg 4 mg 10-06 Jill CARRENO disintegrat disintegrat ing tablet ing tablet albuterol albuterol 0 Yes Liz Unknown Unknown sulfate HFA sulfate HFA 10-06 Jill CARRENO 90 90 mcg/actuati mcg/actuati on aerosol on aerosol inhaler inhaler Imodium A-D Imodium A-D 0 Yes Liz Unknown Unknown 2 mg tablet 2 mg tablet 10-06 Jill CARRENO oxygen oxygen 2019-0 Yes Liz Unknown Unknown 10-06 Jill CARRENO Colace 100 Colace 100 2020-0 Yes Liz Unknown Unknown mg capsule mg capsule 10-06 Jill CARRENO Miralax 17 Miralax 17 0 2020- Yes Liz Unknown Unknown gram oral [...] mg tablet 10-06 Jill CARRENO oxyCODONE oxyCODONE 0 2020- Yes Liz Unknown Unknown 10 mg 10 mg 10-06 Jill CARRENO tablet tablet Klor-Con Klor-Con 2020-0 Yes Liz Unknown Unknown M20 mEq M20 mEq 10-06 Jill CARRENO tablet,exte tablet,exte nded nded release release TylenoL 325 TylenoL 325 Yes Liz Unknown Unknown mg tablet mg tablet 10-15 Jill CARRENO cefdinir cefdinir 2019- Yes Liz Unknown Unknown 300 mg 300 mg 10-15 Jill CARREON capsule capsule lactulose lactulose 2019- Yes Liz Unknown Unknown 10 gram/15 10 gram/15 10-15 Jill CARRENO mL (15 mL) mL (15 mL) oral oral solution solution nystatin nystatin 2019- Yes Liz Unknown Unknown 100,000 100,000 10-15 Jill CARRENO unit/mL unit/mL oral oral suspension suspension levETIRAcet levETIRAcet Yes Liz Unknown Unknown am 500 mg am 500 mg 10-15 ,Jill tablet tablet oxyCODONE oxyCODONE Yes Liz Unknown Unknown 10 mg 10 mg 10-27 MD,Jill tablet tablet fentaNYL fentaNYL Yes Liz Unknown Unknown 100 mcg/hr 100 mcg/hr 10-27 ,Jill transdermal transdermal patch patch Vital Signs Vital Name Observation Time Observation Value Comments SYSTOLIC mm[Hg] 2019-11-11 18:11:31 138 mm[Hg] mm[Hg] Method: Sit SYSTOLIC mm[Hg] 2019-08-17 18:10:05 120 mm[Hg] mm[Hg] Method: Stand SYSTOLIC mm[Hg] 2019-09-30 18:10:49 130 mm[Hg] mm[Hg] Method: Lie DIASTOLIC mm[Hg] 2019-11-11 18:11:31 82 mm[Hg] mm[Hg] Method: Sit DIASTOLIC mm[Hg] 2019-08-17 18:10:05 80 mm[Hg] mm[Hg] Method: Stand DIASTOLIC mm[Hg] 2019-09-30 18:10:49 72 mm[Hg] mm[Hg] Method: Lie PULSE 2019-11-11 18:11:31 86 /min /min RESP RATE 2019-11-11 18:11:31 18 /min /min TEMP 2019-11-11 18:11:31 99.1 [degF] Procedures This patient has no known procedures. Results This patient has no known results.
--- OUTSIDE RECORDS SUMMARY | 2019-11-13 16:31 | XMS REPORT ---
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, disorder, RN recurrent, recurrent, unspecified unspecified Anxiety Anxiety Diagnosis Active Kaylynn disorder, disorder, [place] unspecified unspecified RN Pain frequent Pain Mgmt Resolve 2017-072018-08-27 Love pain d 08-16 15:00:00 [place] 10:20: [id number] 00 Respiratory smoker Respirator Resolve 2017-072018-07-23 Love y d 08-16 15:00:00 [place] 10:20: [id number] 00 Endo/Jose anti-coagul Endo/Jose Resolve 2017-072018-06-25 Love ation d 08-16 15:00:00 [place] therapy 10:20: [id number] 00 Nutrition nutritional Nutrition Resolve 2017-072018-07-04 Love restriction d 08-16 15:00:00 [place] s 10:20: [id number] 00 Neuro confusion Neuro/Emot Resolve 2017-072018-08-06 Love present ion d 08-16 15:00:00 [place] 10:20: [id number] 00 Neuro anxiety Neuro/Emot Resolve 2017-072018-08-06 Love present ion d 08-16 15:00:00 [place] 10:20: [id number] 00 Neuro depressive Neuro/Emot Resolve 2017-072018-08-06 Love feelings ion d 08-16 15:00:00 [place] present 10:20: [id number] 00 Safety risk for Safety Resolve 2017-072018-07-04 Love hospitaliza d 08-16 15:00:00 [place] tion 10:20: [id number] 00 Safety fall risk Safety Resolve 2017-072018-07-04 Ericka factor d 08-16 15:00:00 Vivian present 10:20: 00 Musculoskel requires Musculoske Unknown 2017-07 Love etal human letal 08-16 [place] assist to 10:20: [id number] leave home 00 Cardio hypertensio Cardiovasc Resolve [...] d 2-10 15:00:00 [place] deficit Services 14:00: [id number] 00 Social knowledge/s BRISEYDA: Resolve 2017-072018-09-22 [facility] Services kill Social d 2-10 13:00:00 [place] deficit - Services 14:00: [id number] pt 00 Social knowledge/s BRISEYDA: Resolve 2017-072018-09-22 [facility] Services kill Social d 2-10 13:00:00 [place] deficit - Services 14:00: [id number] cg 00 Musculoskel requires Musculoske Unknown 2017-07 Shelby etal human letal 2- [place] assist to 15:30: leave home 00 Diagnoses knowledge/s Diagnoses Active 2017-07 Kezia kill 224 [place] deficit: cg 13:00: [id number] 00 Integument skin Integument Resolve 2017-072018-08-06 Shelby [...] hospitaliza d 2-18 13:00:00 [place] tion 14:00: [id number] 00 Safety can be left Safety Unknown Kezia alone for 2-18 [place] only short 14:00: [id number] periods 00 Pain frequent Pain Mgmt Resolve 2018-09-24 Lam pain d 2-27 15:00:00 Briones 15:50: [id number] 00 Safety can be left Safety Resolve 2018-10-08 Kezia alone for d 3-04 15:00:00 [place] only short 13:00: [id number] periods 00 Cardio edema Cardiovasc Resolve 2018-10-08 [...] Lam feelings ion 4-08 Briones present 15:45: [id number] 00 Respiratory lung sounds Respirator Resolve 2018-10-29 Shelby deficit y d 4-10 13:00:00 [place] 13:00: 00 Infection s/s of Infection Resolve 2019-02-04 Shelby infection d 4-17 12:30:00 [place] 13:00: 00 Respiratory smoker Respirator Resolve 2018-11-05 Shelby y d 4-17 13:00:00 [place] 13:00: 00 Neuro depressive Neuro/Emot Resolve 2018-12-10 Lam feelings ion d 420 12:30:00 Briones present 12:20: [id number] 00 Respiratory smoker Respirator Resolve 2018-11-20 Shelby [...] 11-26 13:30:00 [place] deficit - Services 13:30: [id number] pt 00 Respiratory lung sounds Respirator Resolve [...] soni n d 12-18 12:30:00 Narendra 12:30: [id number] 00 Respiratory lung sounds Respirator Resolve 2018-12-24 [...] restriction d 01-16 12:30:00 [place] s 15:00: [id number] 00 Safety can be left Safety Resolve 2019-02-18 Kezia alone for d 01-16 12:10:00 [place] only short 15:00: [id number] periods 00 Respiratory smoker Respirator Resolve 2019-01-21 [...] Social 7-12 [place] deficit - Services 14:00: [id number] cg 00 Respiratory lung sounds Respirator Resolve [...] 12:30: 00 Respiratory smoker Respirator Resolve 2019-02-11 [place] y d 7- 12:30:00 [place] 12:30: 00 Respiratory lung sounds Respirator Resolve 2019-02-18 Shelby deficit y d 7-31 12:10:00 [place] 12:10: 00 Respiratory dyspnea Respirator Resolve 2019-07-16 Shelby present y d 7 12:30:00 [place] 12:10: 00 Respiratory oxygen Respirator Resolve 2019-02-18 Shelby treatments y d 7 12:10:00 Vallely in home 12:10: 00 Neuro depressive Neuro/Emot Unknown Kezia feelings ion 02-18 [place] present 14:30: [id number] 00 Respiratory lung sounds Respirator Resolve 2019-03-04 [...] d 03-12 12:30:00 [place] only short 15:30: [id number] periods 00 Respiratory smoker Respirator Resolve 2019-03-12 [...] d 0-14 12:45:00 [place] only short 15:00: [id number] periods 00 Musculoskel requires Musculoske Unknown 2018-07 [...] alone for 12 [place] only short 15:30: [id number] periods 00 Respiratory smoker Respirator Resolve 2018-072019-07-09 [...] 12:30: 00 Endo/Jose diabetic Endo/Jose Resolve 2019-08-05 Shebly foot care d 07-28 12:30:00 [place] 12:30: [...] Unknown Kezia foot care 08-05 [place] 14:00: [id number] 00 Social financial BRISEYDA: Active 2019- Kezia Services resource Social 08-05 [facility] deficit Services 14:00: [id number] 00 Integument skin Integument Active 2019- Love integrity 08-17 [place] risk 10:30: [id number] 00 Elimination urinary Eliminatio Resolve 2019-2019-08-19 Love incontinenc n d 08-17 12:30:00 [place] e 10:30: [id number] 00 Elimination bowel Eliminatio Resolve 2019-09-02 Love incontinenc n d 08-17 12:30:00 [place] e 10:30: [id number] 00 Elimination diarrhea Eliminatio Resolve 2019-09-02 Love n d 08-17 12:30:00 [place] 10:30: [id number] 00 Neuro confusion Neuro/Emot Active 2019- Love present ion 08-17 [place] 10:30: [id number] 00 Neuro anxiety Neuro/Emot Active 2019-0 Love present ion 08-17 [place] 10:30: [id number] 00 Neuro impaired Neuro/Emot Active 2019-0 Love decision-ma ion 08-17 [place] wilmer 10:30: [id number] 00 Neuro memory Neuro/Emot Active 2019- Love deficit ion 08-17 [place] needing 10:30: [id number] supervision 00 Activity self-care Activity Resolve 2019-10-28 Olve deficit d 08-17 13:00:00 [place] 10:30: [id number] 00 Medication oral med Meds Resolve 2019-09-30 Love assistance d 08-17 12:30:00 [place] required 10:30: [id number] 00 Musculoskel transfer Musculoske Resolve 2019-10-28 Love etal assistance letal d 08-17 13:00:00 [place] required 10:30: [id number] 00 Musculoskel requires Musculoske Unknown Love etal human letal 08-17 [place] assist to 10:30: [id number] leave home 00 Respiratory smoker Respirator Resolve [...] Balance/En d 2- 15:45:00 Briones durance 15:35: [id number] 00 Balance/End knowledge/s PT/OT: Resolve 2019-09-09 Lam urance kill Balance/En d 2- 15:45:00 Briones deficit: pt durance 15:35: [id number] 00 Gait/Locomo knowledge/s PT/OT: Resolve 2019-09-09 Lam tion kill Gait/Locom d 2- 15:45:00 Briones problems deficit: pt otion 15:35: [id number] 00 Gait/Locomo knowledge/s PT/OT: Resolve 2019-09-09 Lam tion kill Gait/Locom d 2- 15:45:00 Briones problems deficit: cg otion 15:35: [id number] 00 Gait/Locomo gait PT/OT: Resolve 2019-09-09 Lam tion deficit Gait/Locom d 2- 15:45:00 Briones problems otion 15:35: [id number] 00 Respiratory oxygen Respirator Resolve 2019-09-02 Shelby [...] 00 Respiratory oxygen Respirator Resolve 2019-0 2019-09-16 [place] treatments y d 2- 12:30:00 Vallely in [...] d 3-06 15:00:00 [place]le[place] 15:00: 00 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: Active Shelby urance rdination [...] Eliminatio Resolve 2019-10-28 Kaylynn incontinenc n d 10-15 13:00:00 [place] e 18:10: RN 00 Respiratory dyspnea Respirator Active Kaylynn present y 10-20 [place] 11:00: RN 00 Respiratory oxygen Respirator Active Kaylynn treatments y 10-20 Malnoske in home 11:00: RN 00 Respiratory smoker Respirator Resolve 2019-11-04 Kaylynn y d 10-20 11:10:00 [place] 11:00: RN 00 Neuro depressive Neuro/Emot Active Kaylynn feelings ion 10-20 Malnoske present 11:00: RN 00 Safety risk for Safety Resolve 2019-11-04 Kaylynn hospitaliza d 11-03 11:10:00 [place] tion 11:10: RN 00 Musculoskel requires Musculoske Resolve 2019-11-11 Kaylynn etal human letal d 11-03 11:08:00 [place] assist to 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 00 Test/Treatm tests Test/Injec Active Kaylynn ent ordered t/Jase 11-10 Mal[place]ke RN Elimination urinary Eliminatio Active Kaylynn urgency n 11-10 [place] 11:08: RN 00 Elimination urinary Eliminatio Active Kaylynn frequency n 11-10 [place] 11:08: RN 00 Safety risk for Safety Resolve 2019-11-11 Kaylynn hospitaliza d 11-10 11:08:00 [place] tion 11:08: RN 00 Allergies, Adverse Reactions, Alerts Allergy Allergy Status Severity Reaction(s) Onset Inactive Treating Comments Name Type Date Date Clinician phenergan Unknown Active Unknown Reaction Ernestine Unknown 3-23 (Robert) [place] [id number] effexor Unknown Active Unknown Reaction Ernestine Unknown 3-23 ([place]) [place] [id number] compazine Unknown Active Unknown Reaction Ernestine Unknown 3-23 ([place]) [place] [id number] adhesive Unknown Active Unknown Reaction Ernestine tape Unknown 3-23 ([place]) [place] [id number] milk Unknown Active Unknown Reaction Ernestine Unknown 3- (Robert) [place] [id number] prochlorper Base Active Unknown extrapyramidal 2017-07 [place] azine Ingredient symptoms - Dilip venlafaxine Base Active Severe Hives, 2017-07 [place] Ingredient difficulty 08-09 Dilip breathing, itching promethazin Base Active Unknown extrapyramidal 2017-07 [place] e Ingredient symptoms 08-09 Dilip Gadolinium- Allergen [...] mg tablet ,Marleni dexAMETHaso dexAMETHaso 2017-07- No Ilz Unknown Unknown ne 6 mg ne 6 [...] Unknown Unknown mg tablet mg tablet 08-01 ,Jill oxyCODONE 5 oxyCODONE 5 2018- No Liz Unknown Unknown mg tablet mg tablet 08-01 MD,Jill Soma 250 mg Soma 250 mg 2018- Liz Unknown Unknown tablet tablet 08-06 Jill [...] nyquil 2019- No Liz Unknown Unknown 11-20 Jill CARRENO vinorelbine vinorelbine 2018- Liz Unknown Unknown 11-25 Jill CARRENO metroNIDAZO [...] ayed ayed release release flurazepam flurazepam 2019- Liz Unknown Unknown 15 mg 15 mg 04-08 ,Jill capsule capsule gabapentin gabapentin Liz Unknown Unknown 300 mg 300 mg 04-08 MD,Jill capsule capsule gabapentin gabapentin No Liz Unknown Unknown 300 mg 300 mg 04-08 ,Jill capsule capsule traZODone traZODone 2019- No Liz Unknown Unknown 100 mg 100 mg 04-15 ,Jill tablet tablet Augmentin Augmentin 2018-07 No Liz Unknown Unknown 875 mg-125 875 mg-125 05-01 ,Jill mg tablet mg tablet Kadcyla 100 Kadcyla 100 2018-07- No Liz Unknown Unknown mg mg 010-06 ,Jill intravenous intravenous solution solution sulfacetami sulfacetami 2018-07- No Liz Unknown Unknown de sodium de sodium 08-05 ,Jill 10 % eye 10 % eye drops drops gabapentin gabapentin 2018-07- No Lzi Unknown Unknown 600 mg 600 mg 08-05 ,Jill tablet tablet dronabinoL dronabinoL 2018-07- No Liz [...] No Liz Unknown Unknown monohydrate monohydrate 07-27 ,Jill 100 mg 100 mg capsule capsule TylenoL 325 TylenoL 325 2018-07- No Liz Unknown Unknown mg tablet mg tablet 10-06 ,Jill celecoxib celecoxib 2019- Liz Unknown Unknown 100 mg 100 mg 07-27 ,Jill capsule capsule Dilaudid 4 Dilaudid 4 2019- No Liz Unknown Unknown mg tablet mg tablet 07-27 Jill CARRENO dexAMETHaso dexAMETHaso 2019- No Liz Unknown Unknown ne 2 mg ne 2 mg 07-27 ,Jill tablet tablet Xarelto 20 Xarelto 20 2019- No Liz Unknown Unknown mg tablet mg tablet 07-27 Jill CARRENO Symbicort Symbicort No Liz Unknown Unknown 160 mcg-4.5 160 mcg-4.5 07-27 Jill CARRENO mcg/actuati mcg/actuati on HFA on HFA aerosol aerosol inhaler inhaler DULoxetine DULoxetine 2019- No Liz Unknown Unknown 60 mg 60 [...] am 1,000 mg am 1,000 mg 08-17 Boyd CARRENOie tablet tablet levETIRAcet levETIRAcet 2020- Yes Liz [...] Unknown tablet tablet 09-09 ,Jill omeprazole omeprazole 2019- Yes Liz Unknown Unknown 40 40 09-24 ,Jill mg-sodium mg-sodium bicarbonate bicarbonate 1.1 gram 1.1 gram capsule capsule glyBURIDE glyBURIDE Yes Liz Unknown Unknown 2.5 mg 2.5 mg 09-29 Jill CARRENO tablet tablet gabapentin gabapentin 0 2020- Yes Liz Unknown Unknown 300 mg 300 mg 09-29 ,Jill capsule capsule gabapentin gabapentin 2020- Yes Liz Unknown Unknown 600 mg 600 mg 09-29 Jill CARRENO tablet tablet ALPRAZolam ALPRAZolam 0 Yes Liz Unknown Unknown 1 mg tablet 1 mg tablet 10-06 ,Jill oxyCODONE 5 oxyCODONE 5 2020- Yes [...] aerosol inhaler inhaler Imodium A-D Imodium A-D 2019- Yes Liz Unknown Unknown 2 mg tablet [...] intravenous solution solution TylenoL 325 TylenoL 325 2020- Yes Liz Unknown Unknown mg tablet mg tablet 10-06 Jill CARRENO oxyCODONE oxyCODONE 2020- Yes Liz Unknown Unknown 10 mg 10 mg 10-06 ,Jill tablet tablet Klor-Con Klor-Con Yes Liz Unknown Unknown M20 mEq M20 mEq 10-06 ,Jill tablet,exte tablet,exte nded nded release release TylenoL 325 TylenoL 325 Yes Liz Unknown Unknown mg tablet mg tablet 10-15 ,Jill cefdinir cefdinir 2020- Yes Liz Unknown Unknown 300 mg 300 mg 10-15 ,Jill capsule capsule lactulose lactulose 2020- Yes Liz Unknown Unknown 10 gram/15 10 gram/15 10-15 Jill CARRENO mL (15 mL) mL (15 mL) oral oral solution solution nystatin nystatin 2019- Yes Liz Unknown Unknown 100,000 100,000 10-15 Jill CARRENO unit/mL unit/mL oral oral suspension suspension levETIRAcet levETIRAcet Yes Liz Unknown Unknown am 500 mg am 500 mg 10-15 ,Jlil tablet tablet oxyCODONE oxyCODONE Yes Liz Unknown Unknown 10 mg 10 mg 10-27 ,Jill tablet tablet fentaNYL fentaNYL Yes Liz Unknown [...]
--- OUTSIDE RECORDS SUMMARY | 2019-11-13 16:31 | XMS REPORT ---
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, disorder, RN recurrent, recurrent, unspecified unspecified Anxiety Anxiety Diagnosis Active Kaylynn disorder, disorder, [place] unspecified unspecified RN Pain frequent Pain Mgmt Resolve 2017-072018-08-27 Love pain d 08-16 15:00:00 [place] 10:20: [id number] 00 Respiratory smoker Respirator Resolve 2017-072018-07-23 Love y d 08-16 15:00:00 [place] 10:20: [id number] 00 Endo/Jose anti-coagul Endo/Jose Resolve 2017-072018-06-25 Love ation d 08-16 15:00:00 [place] therapy 10:20: [id number] 00 Nutrition nutritional Nutrition Resolve 2017-072018-07-04 Love restriction d 08-16 15:00:00 [place] s 10:20: [id number] 00 Neuro confusion Neuro/Emot Resolve 2017-072018-08-06 Love present ion d 08-16 15:00:00 [place] 10:20: [id number] 00 Neuro anxiety Neuro/Emot Resolve 2017-072018-08-06 Love present ion d 08-16 15:00:00 [place] 10:20: [id number] 00 Neuro depressive Neuro/Emot Resolve 2017-072018-08-06 Love feelings ion d 08-16 15:00:00 [place] present 10:20: [id number] Safety risk for Safety Resolve 2017-072018-07-04 Love hospitaliza d 08-16 15:00:00 [place] tion 10:20: [id number] 00 Safety fall risk Safety Resolve 2017-072018-07-04 Ericka factor d 08-16 15:00:00 Vivian present 10:20: 00 Musculoskel requires Musculoske Unknown 2017-07 Love etal human letal 08-16 [place] assist to 10:20: [id number] leave home 00 Cardio hypertensio Cardiovasc Resolve [...] d 2-10 15:00:00 [place] deficit Services 14:00: [id number] 00 Social knowledge/s BRISEYDA: Resolve 2017-072018-09-22 [facility] Services kill Social d 2-10 13:00:00 [place] deficit - Services 14:00: [id number] pt 00 Social knowledge/s BRISEYDA: Resolve 2017-072018-09-22 [facility] Services kill Social d 2-10 13:00:00 [place] deficit - Services 14:00: [id number] cg 00 Musculoskel requires Musculoske Unknown 2017-07 Shelby etal human letal 2- [place] assist to 15:30: leave home 00 Diagnoses knowledge/s Diagnoses Active 2017-07 Kezia kill 224 [place] deficit: cg 13:00: [id number] 00 Integument skin Integument Resolve 2017-072018-08-06 Shelby [...] hospitaliza d 2-18 13:00:00 [place] tion 14:00: [id number] 00 Safety can be left Safety Unknown Kezia alone for 2-18 [place] only short 14:00: [id number] periods 00 Pain frequent Pain Mgmt Resolve 2018-09-24 Lam pain d 2-27 15:00:00 [place] 15:50: [id number] 00 Safety can be left Safety Resolve 2018-10-08 Kezia alone for d 3-04 15:00:00 [place] only short 13:00: [id number] periods 00 Cardio edema Cardiovasc Resolve 2018-10-08 [...] Lam feelings ion 4-08 Briones present 15:45: [id number] 00 Respiratory lung sounds Respirator Resolve 2018-10-29 Shelby deficit y d 4-10 13:00:00 [place] 13:00: 00 Infection s/s of Infection Resolve 2019-02-04 Shelby infection d 4-17 12:30:00 [place] 13:00: 00 Respiratory smoker Respirator Resolve 2018-11-05 Shelby y d 4-17 13:00:00 [place] 13:00: 00 Neuro depressive Neuro/Emot Resolve 2018-12-10 Lam feelings ion d 420 12:30:00 Briones present 12:20: [id number] 00 Respiratory smoker Respirator Resolve 2018-11-20 Shelby [...] 11-26 13:30:00 [place] deficit - Services 13:30: [id number] pt 00 Respiratory lung sounds Respirator Resolve [...] soni n d 12-18 12:30:00 Narendra 12:30: [id number] 00 Respiratory lung sounds Respirator Resolve 2018-12-24 [...] restriction d 01-16 12:30:00 [place] s 15:00: [id number] 00 Safety can be left Safety Resolve 2019-02-18 Kezia alone for d 01-16 12:10:00 [place] only short 15:00: [id number] periods 00 Respiratory smoker Respirator Resolve 2019-01-21 [...] Social 7-12 [place] deficit - Services 14:00: [id number] cg 00 Respiratory lung sounds Respirator Resolve [...] Kezia feelings ion 02-18 [place] present 14:30: [id number] 00 Respiratory lung sounds Respirator Resolve 2019-03-04 [...] d 03-12 12:30:00 [place] only short 15:30: [id number] periods 00 Respiratory smoker Respirator Resolve 2019-03-12 [...] d 0-14 12:45:00 [place] only short 15:00: [id number] periods 00 Musculoskel requires Musculoske Unknown 2018-07 [...] alone for 12 [place] only short 15:30: [id number] periods 00 Respiratory smoker Respirator Resolve 2018-072019-07-09 [...] Unknown Kezia foot care 08-05 [place] 14:00: [id number] 00 Social financial BRISEYDA: Active 2019- Kezia Services resource Social 08-05 [facility] deficit Services 14:00: [id number] 00 Integument skin Integument Active 2019- Love integrity 08-17 [place] risk 10:30: [id number] 00 Elimination urinary Eliminatio Resolve 2019-2019-08-19 Love incontinenc n d 08-17 12:30:00 [place] e 10:30: [id number] 00 Elimination bowel Eliminatio Resolve 2019-09-02 Love incontinenc n d 08-17 12:30:00 [place] e 10:30: [id number] 00 Elimination diarrhea Eliminatio Resolve 2019-09-02 Love n d 08-17 12:30:00 [place] 10:30: [id number] 00 Neuro confusion Neuro/Emot Active 2019- Love present ion 08-17 [place] 10:30: [id number] 00 Neuro anxiety Neuro/Emot Active 2019-0 Love present ion 08-17 [place] 10:30: [id number] 00 Neuro impaired Neuro/Emot Active 2019-0 Love decision-ma ion 08-17 [place] wilmer 10:30: [id number] 00 Neuro memory Neuro/Emot Active 2019- Love deficit ion 08-17 [place] needing 10:30: [id number] supervision 00 Activity self-care Activity Resolve 2019-10-28 Love deficit d 08-17 13:00:00 [place] 10:30: [id number] 00 Medication oral med Meds Resolve 2019-09-30 Love assistance d 08-17 12:30:00 [place] required 10:30: [id number] 00 Musculoskel transfer Musculoske Resolve 2019-10-28 Love etal assistance letal d 08-17 13:00:00 [place] required 10:30: [id number] 00 Musculoskel requires Musculoske Unknown Love etal human letal 08-17 [place] assist to 10:30: [id number] leave home 00 Respiratory smoker Respirator Resolve [...] Balance/En d 2- 15:45:00 Br[place] durance 15:35: [id number] 00 Balance/End knowledge/s PT/OT: Resolve 2019-09-09 Lam urance kill Balance/En d 2- 15:45:00 Br[place] deficit: pt durance 15:35: [id number] 00 Gait/Locomo knowledge/s PT/OT: Resolve 2019-09-09 Lam tion kill Gait/Locom d 2- 15:45:00 Briones problems deficit: pt otion 15:35: [id number] 00 Gait/Locomo knowledge/s PT/OT: Resolve 2019-09-09 Lam tion kill Gait/Locom d 2- 15:45:00 Briones problems deficit: cg otion 15:35: [id number] 00 Gait/Locomo gait PT/OT: Resolve 2019-09-09 Lam tion deficit Gait/Locom d 2- 15:45:00 Briones problems otion 15:35: [id number] 00 Respiratory oxygen Respirator Resolve 2019-09-02 Shelby [...] 00 Respiratory smoker Respirator Resolve 2019-0 2019-09-22 Shelyb y d 3-03 14:00:00 [place] 14:00: 00 Respiratory dyspnea Respirator Resolve 2019-0 2019-09-25 Shelby present y d 3-06 15:00:00 [place] 15:00: 00 Respiratory smoker Respirator Resolve 2019-0 2019-09-25 Shelby y d 3-06 15:00:00 [place] 15:00: 00 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: Active Shelby urance rdination Balance/En [...] assist to 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 00 Allergies, Adverse Reactions, Alerts Allergy Allergy Status Severity Reaction(s) Onset Inactive Treating Comments Name Type Date Date Clinician phenergan Unknown Active Unknown Reaction Ernestine Unknown 3-23 (Robert) [place] [id number] effexor Unknown Active Unknown Reaction Ernestine Unknown 3-23 (Robert) [place] [id number] compazine Unknown Active Unknown Reaction Ernestine Unknown 3-23 (Robert) [place] [id number] adhesive Unknown Active Unknown Reaction Ernestine tape Unknown 3-23 (Robert) [place] [id number] milk Unknown Active Unknown Reaction Ernestine Unknown 3-23 (Robert) [place] [id number] prochlorper Base Active Unknown extrapyramidal 2017-07 [place] azine Ingredient symptoms 1-19 Dilip venlafaxine Base Active Severe Hives, 2017-07 [place] Ingredient difficulty 1-19 Dilip breathing, itching promethazin Base Active Unknown extrapyramidal 2017-07 Dalton e Ingredient symptoms 1-19 Dilip Gadolinium- Allergen Active Severe Anaphylaxis Shelby Containing Group 9-26 [place] Contrast Media Medications Ordered Filled Start [...] 45 mg Unknown 45 mg 45 mg ,Radomir tablet tablet traZODone traZODone 2017-07- No Stevanovic Unknown Unknown 100 mg 100 mg 08-16 ,Radomir tablet tablet cetirizine cetirizine No Stevanovic 10 mg Unknown 10 mg 10 mg ,Radomir capsule capsule potassium potassium No Stevanovic 20 meq Unknown chloride ER chloride ER ,Radomir 20 mEq 20 mEq tablet,exte tablet,exte nded nded release(par release(par t/cryst) t/cryst) Xarelto 20 Xarelto 20 2017-07- No Stevanovic Unknown Unknown mg tablet mg tablet 08-16 Augusto CARRENOompablo SUMAtriptan SUMAtriptan No Stevanovic 50 mg Unknown [...] Unknown 2 mg tablet 2 mg tablet ,Cynthiair dexAMETHaso dexAMETHaso 2017-07- No Liz Unknown Unknown [...] on breath activated activated fluconazole fluconazole 2017-07- Liz Unknown Unknown 200 mg 200 mg 08-24 ,Jill tablet tablet Bactrim DS Bactrim DS 2017-07- No Liz Unknown Unknown 800 mg-160 800 mg-160 09-02 Jill CARRENO mg tablet mg tablet Klor-Con Klor-Con 2017-07- No Lzi Unknown Unknown M10 mEq M10 mEq 09-02 [...] 08-02 ,Jill tablet tablet levoFLOXaci levoFLOXaci 2018- Liz Unknown Unknown n 750 mg n 750 mg 08-05 Jill CARRENO tablet tablet Triple Triple 2019- No Schwed Unknown Unknown Antibiotic- Antibiotic- 09-16 Darren CARRENO Pain Relief Pain Relief 3.5 mg-500 3.5 mg-500 unit-10,000 unit-10,000 unit/gram unit/gram ointmnt ointmnt fentaNYL 25 fentaNYL 25 2018- Liz Unknown Unknown mcg/hr mcg/hr 10-01 Jill [...] Liz Unknown Unknown [id number] 10-31 Jill CARRENO-potassiu mg-potassiu m m clavulanate clavulanate 125 mg 125 mg tablet tablet oxyCODONE oxyCODONE 2018- No Liz Unknown Unknown 10 mg 10 mg 11-19 Jill CARRENO tablet tablet nyquil nyquil 2019- Liz Unknown Unknown 11-20 Jill CARRENO vinorelbine [...] 01-13 ,Jill tablet tablet oxyCODONE oxyCODONE 2019- Liz Unknown Unknown 10 mg 10 mg 01-27 ,Jill tablet tablet Colace 100 Colace 100 2019- No Liz Unknown Unknown mg capsule mg capsule 01-21 ,Jill Soma 250 mg Soma 250 mg 2019- Liz Unknown Unknown tablet tablet 01-21 ,Jill Miralax 17 Miralax 17 2019- No Liz Unknown Unknown gram oral gram oral 01-21 ,Jill powder powder packet packet Aloxi 0.25 Aloxi 0.25 2019- No Liz Unknown Unknown mg/5 mL mg/5 mL 02-05 ,Jill intravenous intravenous solution solution gabapentin gabapentin 2018- Liz Unknown Unknown 300 mg 300 mg [...] 04-08 ,Jill capsule capsule gabapentin gabapentin 2018- Liz Unknown Unknown 300 mg 300 mg [...] mg tablet 10-06 ,Jill celecoxib celecoxib 2019- No Liz Unknown Unknown 100 mg 100 mg 07-27 ,Jill capsule capsule Dilaudid 4 Dilaudid 4 2019- No Liz Unknown Unknown mg tablet mg tablet 07-27 ,Jill dexAMETHaso dexAMETHaso 2019- No Liz Unknown Unknown [...] Unknown Unknown 60 mg 60 mg 07-27 MD,Jill capsule,del capsule,del ayed ayed release release Klor-Con Klor-Con 2020- No Liz Unknown Unknown M20 mEq M20 mEq 07-27 MD,Jill tablet,exte tablet,exte nded nded release release traZODone traZODone 2020- No Liz Unknown Unknown 100 mg 100 mg 07-27 MD,Jill tablet tablet Klor-Con Klor-Con 2020- No Liz Unknown Unknown M20 mEq M20 mEq 08-05 MD,Jill tablet,exte tablet,exte nded nded release release Klor-Con Klor-Con 2020- Yes Liz Unknown Unknown M20 mEq M20 mEq 08-17 MD,Jill tablet,exte tablet,exte nded nded release release traZODone traZODone 2020- Yes Liz Unknown Unknown 100 mg 100 mg 08-17 MD,Jill tablet tablet fentanyl fentanyl 2020- Yes Liz [...] am 500 mg am 500 mg 08-26 ,Jill tablet tablet levETIRAcet levETIRAcet 2020- Yes [...] mg 09-29 ,Jill tablet tablet gabapentin gabapentin 0 2020- Yes Liz Unknown Unknown 300 mg 300 mg 09-29 ,Jill capsule capsule gabapentin gabapentin 0 2020- Yes Liz Unknown Unknown 600 mg 600 mg 09-29 ,Jill tablet tablet ALPRAZolam ALPRAZolam 2019- Yes Liz Unknown Unknown 1 mg tablet 1 mg tablet 10-06 MD,Jill oxyCODONE 5 oxyCODONE 5 2019-0 2020- Yes Liz Unknown Unknown mg tablet mg tablet 10-06 Jill CARRENO ondansetron ondansetron 2020-0 2020- Yes Liz Unknown Unknown HCL 4 [...] mg tablet 10-06 Jill CARRENO oxygen oxygen 0 Yes Liz Unknown Unknown 10-06 ,Jill Colace 100 Colace 100 2020-0 Yes Liz Unknown Unknown mg capsule mg capsule 10-06 Jill CARRENO Miralax 17 Miralax 17 2020-0 2020- Yes Lzi Unknown Unknown gram oral gram oral 10-06 Jill CARRENO powder powder packet packet Aloxi 0.25 Aloxi 0.25 2020-0 Yes Liz Unknown Unknown mg/5 mL mg/5 mL 10-06 Jill CARRENO intravenous intravenous solution solution Kadcyla 100 Kadcyla 100 2020-0 Yes Liz Unknown Unknown mg mg 10-06 Jill CARRENO intravenous intravenous solution solution TylenoL 325 TylenoL 325 0 2020- Yes Liz Unknown Unknown mg tablet mg tablet 10-06 ,Jill oxyCODONE oxyCODONE 0 2020- Yes Liz Unknown Unknown 10 mg 10 mg 10-06 ,Jill tablet tablet Klor-Con Klor-Con 0 Yes Liz Unknown Unknown M20 mEq M20 mEq 10-06 ,Jill tablet,exte tablet,exte nded nded release release TylenoL 325 TylenoL 325 2019-0 Yes Liz Unknown Unknown mg tablet mg tablet 10-15 ,Jill cefdinir cefdinir 0 2020- Yes Liz Unknown Unknown 300 mg 300 mg 10-15 Jill CARRENO capsule capsule lactulose lactulose 2019- Yes Liz Unknown Unknown 10 gram/15 10 gram/15 10-15 Jill CARRENO mL (15 mL) mL (15 mL) oral oral solution solution nystatin nystatin 2019- Yes Liz Unknown Unknown 100,000 100,000 10-15 Jill CARRENO unit/mL unit/mL oral oral suspension suspension levETIRAcet levETIRAcet Yes Liz Unknown Unknown am 500 mg am 500 mg 10-15 Jill CARRENO tablet tablet oxyCODONE oxyCODONE Yes Liz Unknown Unknown 10 mg 10 mg 10-27 Jill CARRENO tablet tablet fentaNYL fentaNYL Yes Liz Unknown Unknown 100 mcg/hr 100 mcg/hr 10-27 Jill CARRENO transdermal transdermal patch patch Vital Signs Vital Name Observation Time Observation Value Comments SYSTOLIC mm[Hg] 2019-11-04 18:11:24 128 mm[Hg] mm[Hg] Method: Sit SYSTOLIC mm[Hg] 2019-08-17 18:10:05 120 mm[Hg] mm[Hg] Method: Stand SYSTOLIC mm[Hg] 2019-09-30 18:10:49 130 mm[Hg] mm[Hg] Method: Lie DIASTOLIC mm[Hg] 2019-11-04 18:11:24 82 mm[Hg] mm[Hg] Method: Sit DIASTOLIC mm[Hg] 2019-08-17 18:10:05 80 mm[Hg] mm[Hg] Method: Stand DIASTOLIC mm[Hg] 2019-09-30 18:10:49 72 mm[Hg] mm[Hg] Method: Lie PULSE 2019-11-04 18:11:24 70 /min /min RESP RATE 2019-11-04 18:11:24 18 /min /min TEMP 2019-11-04 18:11:24 97.9 [degF] Procedures This patient has no known procedures. Results This patient has no known results.
--- OUTSIDE RECORDS SUMMARY | 2019-11-13 16:32 | XMS REPORT ---
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, disorder, RN recurrent, recurrent, unspecified unspecified Anxiety Anxiety Diagnosis Active Kaylynn disorder, disorder, [place] unspecified unspecified RN Pain frequent Pain Mgmt Resolve 2017-072018-08-27 Love pain d 08-16 15:00:00 [place] 10:20: [id number] 00 Respiratory smoker Respirator Resolve 2017-072018-07-23 Love y d 08-16 15:00:00 [place] 10:20: [id number] 00 Endo/Jose anti-coagul Endo/Jose Resolve 2017-072018-06-25 Love ation d 08-16 15:00:00 [place] therapy 10:20: [id number] 00 Nutrition nutritional Nutrition Resolve 2017-072018-07-04 Love restriction d 08-16 15:00:00 [place] s 10:20: [id number] 00 Neuro confusion Neuro/Emot Resolve 2017-072018-08-06 Love present ion d 08-16 15:00:00 [place] 10:20: [id number] 00 Neuro anxiety Neuro/Emot Resolve 2017-072018-08-06 Love present ion d 08-16 15:00:00 [place] 10:20: [id number] 00 Neuro depressive Neuro/Emot Resolve 2017-072018-08-06 Love feelings ion d 08-16 15:00:00 [place] present 10:20: [id number] 00 Safety risk for Safety Resolve 2017-072018-07-04 Love hospitaliza d 08-16 15:00:00 [place] tion 10:20: [id number] Safety fall risk Safety Resolve 2017-072018-07-04 Ericka factor d 08-16 15:00:00 Vivian present 10:20: 00 Musculoskel requires Musculoske Unknown 2017-07 Love etal human letal 08-16 [place] assist to 10:20: [id number] leave home 00 Cardio hypertensio Cardiovasc Resolve [...] d 2-10 15:00:00 [place] deficit Services 14:00: [id number] 00 Social knowledge/s BRISEYDA: Resolve 2017-072018-09-22 Ke[facility] Services kill Social d 2-10 13:00:00 [place] deficit - Services 14:00: [id number] pt 00 Social knowledge/s BRISEYDA: Resolve 2017-072018-09-22 Kezia Services kill Social d 2-10 13:00:00 [place] deficit - Services 14:00: [id number] cg 00 Musculoskel requires Musculoske Unknown 2017-07 Shelby etal human letal 2- [place] assist to 15:30: leave home 00 Diagnoses knowledge/s Diagnoses Active 2017-07 Kezia kill 224 [place] deficit: cg 13:00: [id number] 00 Integument skin Integument Resolve 2017-072018-08-06 Shelby [...] hospitaliza d 2-18 13:00:00 [place] tion 14:00: [id number] 00 Safety can be left Safety Unknown Kezia alone for 2-18 [place] only short 14:00: [id number] periods 00 Pain frequent Pain Mgmt Resolve 2018-09-24 Lam pain d 2-27 15:00:00 [place] 15:50: [id number] 00 Safety can be left Safety Resolve 2018-10-08 Kezia alone for d 3-04 15:00:00 [place] only short 13:00: [id number] periods 00 Cardio edema Cardiovasc Resolve 2018-10-08 [...] Lam feelings ion 4-08 Briones present 15:45: [id number] 00 Respiratory lung sounds Respirator Resolve 2018-10-29 Shelby deficit y d 4-10 13:00:00 [place] 13:00: 00 Infection s/s of Infection Resolve 2019-02-04 Shelby infection d 4-17 12:30:00 [place] 13:00: 00 Respiratory smoker Respirator Resolve 2018-11-05 Shelby y d 4-17 13:00:00 [place] 13:00: 00 Neuro depressive Neuro/Emot Resolve 2018-12-10 Lam feelings ion d 420 12:30:00 Briones present 12:20: [id number] 00 Respiratory smoker Respirator Resolve 2018-11-20 Shelby [...] 11-26 13:30:00 [place] deficit - Services 13:30: [id number] pt 00 Respiratory lung sounds Respirator Resolve [...] soni n d 12-18 12:30:00 Narendra 12:30: [id number] 00 Respiratory lung sounds Respirator Resolve 2018-12-24 [...] 00 lycemia: pt Endo/Jose anti-coagul Endo/Jose Active Sh[place] ation 6-14 [place] therapy 11:30: 00 Medication [...] restriction d 01-16 12:30:00 [place] s 15:00: [id number] 00 Safety can be left Safety Resolve 2019-02-18 Kezia alone for d 01-16 12:10:00 [place] only short 15:00: [id number] periods 00 Respiratory smoker Respirator Resolve 2019-01-21 [...] Social 7-12 [place] deficit - Services 14:00: [id number] cg 00 Respiratory lung sounds Respirator Resolve [...] Kezia feelings ion 02-18 [place] present 14:30: [id number] 00 Respiratory lung sounds Respirator Resolve 2019-03-04 [...] d 03-12 12:30:00 [place] only short 15:30: [id number] periods 00 Respiratory smoker Respirator Resolve 2019-03-12 [...] d 0-14 12:45:00 [place] only short 15:00: [id number] periods 00 Musculoskel requires Musculoske Unknown 2018-07 [...] alone for 12 [place] only short 15:30: [id number] periods 00 Respiratory smoker Respirator Resolve 2018-072019-07-09 [...] Unknown Kezia foot care 08-05 [place] 14:00: [id number] 00 Social financial BRISEYDA: Active 2019- Kezia Services resource Social 08-05 [facility] deficit Services 14:00: [id number] 00 Integument skin Integument Active 2019- Love integrity 08-17 [place] risk 10:30: [id number] 00 Elimination urinary Eliminatio Resolve 2019-2019-08-19 Love incontinenc n d 08-17 12:30:00 [place] e 10:30: [id number] 00 Elimination bowel Eliminatio Resolve 2019-09-02 Love incontinenc n d 08-17 12:30:00 [place] e 10:30: [id number] 00 Elimination diarrhea Eliminatio Resolve 2019-09-02 Love n d 08-17 12:30:00 [place] 10:30: [id number] 00 Neuro confusion Neuro/Emot Active 2019- Love present ion 08-17 [place] 10:30: [id number] 00 Neuro anxiety Neuro/Emot Active 2019-0 Love present ion 08-17 [place] 10:30: [id number] 00 Neuro impaired Neuro/Emot Active 2019-0 Love decision-ma ion 08-17 [place] wilmer 10:30: [id number] 00 Neuro memory Neuro/Emot Active 2019- Love deficit ion 08-17 [place] needing 10:30: [id number] supervision 00 Activity self-care Activity Resolve 2019-10-28 Love deficit d 08-17 13:00:00 [place] 10:30: [id number] 00 Medication oral med Meds Resolve 2019-09-30 Love assistance d 08-17 12:30:00 [place] required 10:30: [id number] 00 Musculoskel transfer Musculoske Resolve 2019-10-28 Love etal assistance letal d 08-17 13:00:00 [place] required 10:30: [id number] 00 Musculoskel requires Musculoske Unknown Love etal human letal 08-17 [place] assist to 10:30: [id number] leave home 00 Respiratory smoker Respirator Resolve [...] Balance/En d 2- 15:45:00 Briones durance 15:35: [id number] 00 Balance/End knowledge/s PT/OT: Resolve 2019-09-09 Lam urance kill Balance/En d 2- 15:45:00 Briones deficit: pt durance 15:35: [id number] 00 Gait/Locomo knowledge/s PT/OT: Resolve 2019-09-09 Lam tion kill Gait/Locom d 2- 15:45:00 Briones problems deficit: pt otion 15:35: [id number] 00 Gait/Locomo knowledge/s PT/OT: Resolve 2019-09-09 Lam tion kill Gait/Locom d 2- 15:45:00 Briones problems deficit: cg otion 15:35: [id number] 00 Gait/Locomo gait PT/OT: Resolve 2019-09-09 Lam tion deficit Gait/Locom d 2- 15:45:00 Briones problems otion 15:35: [id number] 00 Respiratory oxygen Respirator Resolve 2019-09-02 Shelby [...] d 3-06 15:00:00 [place] 15:00: 00 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 PT/OT: Active Shelby urance rdination Balance/En 09-24 [place] deficit durance 15:00: 00 Gait/Locomo gait PT/OT: Active Shelby tion deficit Gait/Locom -06 [place] problems otion 15:00: 00 Endo/Jose knowledge/s Endo/Jose Resolve 2019-09-30 Shelby kill d 3- 12:30:00 [place] deficit: pt 12:30: 00 Endo/Jose glucose Endo/Jose Active Shelby testing 09-29 [place] dependence 12:30: 00 Endo/Jose diabetic Endo/Jsoe Active Kaylynn foot care 10-15 [place] 18:10: [...] Unknown Reaction Ernestine Unknown 3-23 (Robert) [place] [id number] effexor Unknown Active Unknown Reaction Ernestine Unknown 3-23 (Robert) [place] [id number] compazine Unknown Active Unknown Reaction Ernestine Unknown 3-23 (Robert) [place] [id number] adhesive Unknown Active Unknown Reaction Ernestine tape Unknown 3-23 (Robert) [place] [id number] milk Unknown Active Unknown Reaction Ernestine Unknown 3-23 (Robert) [place] [id number] prochlorper Base Active Unknown extrapyramidal 2017-07 Brant azine Ingredient symptoms 1-19 Dilip venlafaxine Base Active Severe Hives, 2017-07 Brant Ingredient difficulty 1-19 Dilip breathing, itching promethazin Base Active Unknown extrapyramidal 2017-07 Brant e Ingredient symptoms 1-19 Dilip Gadolinium- Allergen [...] Miralax 17 Miralax 17 2020-0 2020- Yes Liz Unknown Unknown gram oral [...]
--- OUTSIDE RECORDS SUMMARY | 2019-11-13 16:32 | XMS REPORT ---
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, disorder, RN recurrent, recurrent, unspecified unspecified Anxiety Anxiety Diagnosis Active Kaylynn disorder, disorder, [place] unspecified unspecified RN Pain frequent Pain Mgmt Resolve 2017-072018-08-27 Love pain d 08-16 15:00:00 [place] 10:20: [id number] 00 Respiratory smoker Respirator Resolve 2017-072018-07-23 Love y d 08-16 15:00:00 [place] 10:20: [id number] 00 Endo/Jose anti-coagul Endo/Jsoe Resolve 2017-072018-06-25 Love ation d 08-16 15:00:00 [place] therapy 10:20: [id number] 00 Nutrition nutritional Nutrition Resolve 2017-072018-07-04 Love restriction d 08-16 15:00:00 [place] s 10:20: [id number] 00 Neuro confusion Neuro/Emot Resolve 2017-072018-08-06 Love present ion d 08-16 15:00:00 [place] 10:20: [id number] 00 Neuro anxiety Neuro/Emot Resolve 2017-072018-08-06 Love present ion d 08-16 15:00:00 [place] 10:20: [id number] 00 Neuro depressive Neuro/Emot Resolve 2017-072018-08-06 Love feelings ion d 08-16 15:00:00 [place] present 10:20: [id number] 00 Safety risk for Safety Resolve 2017-072018-07-04 Love hospitaliza d 08-16 15:00:00 [place] tion 10:20: [id number] 00 Safety fall risk Safety Resolve 2017-072018-07-04 Ericka factor d 08-16 15:00:00 Vivian present 10:20: 00 Musculoskel requires Musculoske Unknown 2017-07 Love etal human letal 08-16 [place] assist to 10:20: [id number] leave home 00 Cardio hypertensio Cardiovasc Resolve [...] d 2-10 15:00:00 [place] deficit Services 14:00: [id number] 00 Social knowledge/s BRISEYDA: Resolve 2017-072018-09-22 [facility] Services kill Social d 2-10 13:00:00 [place] deficit - Services 14:00: [id number] pt 00 Social knowledge/s BRISEYDA: Resolve 2017-072018-09-22 [facility] Services kill Social d 2-10 13:00:00 [place] deficit - Services 14:00: [id number] cg 00 Musculoskel requires Musculoske Unknown 2017-07 [place] etal human letal 2- [place] assist to 15:30: leave home 00 Diagnoses knowledge/s Diagnoses Active 2017-07 Kezia kill 224 [place] deficit: cg 13:00: [id number] 00 Integument skin Integument Resolve 2017-072018-08-06 Shelby [...] hospitaliza d 2-18 13:00:00 [place] tion 14:00: [id number] 00 Safety can be left Safety Unknown Kezia alone for 2-18 [place] only short 14:00: [id number] periods 00 Pain frequent Pain Mgmt Resolve 2018-09-24 Lam pain d 2-27 15:00:00 [place] 15:50: [id number] 00 Safety can be left Safety Resolve 2018-10-08 Kezia alone for d 3-04 15:00:00 [place] only short 13:00: [id number] periods 00 Cardio edema Cardiovasc Resolve 2018-10-08 [...] Lam feelings ion 4-08 [place] present 15:45: [id number] 00 Respiratory lung sounds Respirator Resolve 2018-10-29 [place] deficit y d 4-10 13:00:00 [place] 13:00: 00 Infection s/s of Infection Resolve 2019-02-04 Shelby infection d 4-17 12:30:00 [place] 13:00: 00 Respiratory smoker Respirator Resolve 2018-11-05 Shelby y d 4-17 13:00:00 [place] 13:00: 00 Neuro depressive Neuro/Emot Resolve 2018-12-10 Lam feelings ion d 420 12:30:00 [place] present 12:20: [id number] 00 Respiratory smoker Respirator Resolve 2018-11-20 Shelby [...] 11-26 13:30:00 [place] deficit - Services 13:30: [id number] pt 00 Respiratory lung sounds Respirator Resolve [...] soni n d 12-18 12:30:00 Narendra 12:30: [id number] 00 Respiratory lung sounds Respirator Resolve 2018-12-24 [...] 12:30: 00 Elimination nausea/vomi Eliminatio Resolve 2019-01-21 Shelyb ting n d 01-14 12:30:00 [place] 12:30: 00 Musculoskel requires Musculoske Resolve 2019-01-14 Shelby etal human letal d 01-14 12:30:00 [place] assist to 12:30: leave home 00 Social support BRISEYDA: Active Shelby Services deficit Social 01-14 [place] Services 12:30: 00 Nutrition nutritional Nutrition Resolve 2019-01-21 Kezia restriction d 01-16 12:30:00 [place] s 15:00: [id number] 00 Safety can be left Safety Resolve 2019-02-18 Kezia alone for d 01-16 12:10:00 [place] only short 15:00: [id number] periods 00 Respiratory smoker Respirator Resolve 2019-01-21 [...] Social 7-12 [place] deficit - Services 14:00: [id number] cg 00 Respiratory lung sounds Respirator Resolve [...] Kezia feelings ion 02-18 [place] present 14:30: [id number] 00 Respiratory lung sounds Respirator Resolve 2019-03-04 [...] d 03-12 12:30:00 [place] only short 15:30: [id number] periods 00 Respiratory smoker Respirator Resolve 2019-03-12 [...] d 0-14 12:45:00 [place] only short 15:00: [id number] periods 00 Musculoskel requires Musculoske Unknown 2018-07 [...] Safety can be left Safety Active 2018-07 Kezai alone for 12 [place] only short 15:30: [id number] periods 00 Respiratory smoker Respirator Resolve 2018-072019-07-09 [...] Unknown Kezia foot care 08-05 [place] 14:00: [id number] 00 Social financial BRISEYDA: Active 2019- Kezia Services resource Social 08-05 [facility] deficit Services 14:00: [id number] 00 Integument skin Integument Active 2019- Love integrity 08-17 [place] risk 10:30: [id number] 00 Elimination urinary Eliminatio Resolve 2019-2019-08-19 Love incontinenc n d 08-17 12:30:00 [place] e 10:30: [id number] 00 Elimination bowel Eliminatio Resolve 2019-09-02 Love incontinenc n d 08-17 12:30:00 [place] e 10:30: [id number] 00 Elimination diarrhea Eliminatio Resolve 2019-09-02 Love n d 08-17 12:30:00 [place] 10:30: [id number] 00 Neuro confusion Neuro/Emot Active 2019- Love present ion 08-17 [place] 10:30: [id number] 00 Neuro anxiety Neuro/Emot Active 2019-0 Love present ion 08-17 [place] 10:30: [id number] 00 Neuro impaired Neuro/Emot Active 2019-0 Love decision-ma ion 08-17 [place] wilmer 10:30: [id number] 00 Neuro memory Neuro/Emot Active 2019- Love deficit ion 08-17 [place] needing 10:30: [id number] supervision 00 Activity self-care Activity Resolve 2019-10-28 Love deficit d 08-17 13:00:00 [place] 10:30: [id number] 00 Medication oral med Meds Resolve 2019-09-30 Love assistance d 08-17 12:30:00 [place] required 10:30: [id number] 00 Musculoskel transfer Musculoske Resolve 2019-10-28 Love etal assistance letal d 08-17 13:00:00 [place] required 10:30: [id number] 00 Musculoskel requires Musculoske Unknown Love etal human letal 08-17 [place] assist to 10:30: [id number] leave home 00 Respiratory smoker Respirator Resolve 2019-08-20 Shelby ma 08-19 16:15:00 [place] 12:30: 00 Neuro knowledge/s Neuro/Emot Active Shelby woodson ion 1- [place] deficit: pt 12:30: 00 Medication knowledge/s Meds Unknown Shelby kill 1- [place] deficit: cg 12:30: 00 Respiratory oxygen Respirator Resolve 2019-08-26 Shelby treatments y d 1- 12:30:00 [place] in home 16:15: 00 Neuro knowledge/s Neuro/Emot Unknown [place] woodson ion 2- [place] deficit: pt 12:30: 00 Medication knowledge/s Meds Resolve 2019-09-30 Shelby kill d 2- 12:30:00 [place] deficit: cg 12:30: 00 Musculoskel requires Musculoske Resolve 2019-10-28 Shelby etal human letal d 2- 13:00:00 [place] assist to 12:30: leave home 00 Balance/End endurance PT/OT: Resolve 2019-09-09 Lam urance deficit Balance/En d 2- 15:45:00 [place] durance 15:35: [id number] 00 Balance/End knowledge/s PT/OT: Resolve 2019-09-09 Lam urance kill Balance/En d 2- 15:45:00 [place] deficit: pt durance 15:35: [id number] 00 Gait/Locomo knowledge/s PT/OT: Resolve 2019-09-09 Lam tion kill Gait/Locom d 2- 15:45:00 Br[place] problems deficit: pt otion 15:35: [id number] 00 Gait/Locomo knowledge/s PT/OT: Resolve 2019-09-09 Lam tion kill Gait/Locom d 2- 15:45:00 [place] problems deficit: cg otion 15:35: [id number] 00 Gait/Locomo gait PT/OT: Resolve 2019-09-09 Lam tion deficit Gait/Locom d 2- 15:45:00 Br[place] problems otion 15:35: [id number] 00 Respiratory oxygen Respirator Resolve 2019-09-02 Shelby [...] d 3-06 15:00:00 [place] 15:00: 00 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 PT/OT: Active Shelby urance rdination Balance/En 09-24 [...] Unknown Reaction Ernestine Unknown 3-23 (Robert) [place] [id number] effexor Unknown Active Unknown Reaction Ernestine Unknown 3-23 (Robert) [place] [id number] compazine Unknown Active Unknown Reaction Ernestine Unknown 3-23 (Robert) [place] [id number] adhesive Unknown Active Unknown Reaction Ernestine tape Unknown 3-23 (Robert) [place] [id number] milk Unknown Active Unknown Reaction Ernestine Unknown 3-23 (Robert) [place] [id number] prochlorper Base Active Unknown extrapyramidal 2017-07 [place] azine Ingredient symptoms 1-19 Dilip venlafaxine Base Active Severe Hives, 2017-07 [place] Ingredient difficulty 1-19 Dilip breathing, itching promethazin Base Active Unknown extrapyramidal 2017-07 [place] e Ingredient symptoms 1-19 Dilip Gadolinium- Allergen [...]
--- OUTSIDE RECORDS SUMMARY | 2019-11-13 16:32 | XMS REPORT ---
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, disorder, RN recurrent, recurrent, unspecified unspecified Anxiety Anxiety Diagnosis Active Kaylynn disorder, disorder, [place] unspecified unspecified RN Pain frequent Pain Mgmt Resolve 2017-072018-08-27 Love pain d 08-16 15:00:00 [place] 10:20: [id number] 00 Respiratory smoker Respirator Resolve 2017-072018-07-23 Love y d 08-16 15:00:00 [place] 10:20: [id number] 00 Endo/Jose anti-coagul Endo/Jose Resolve 2017-072018-06-25 Love ation d 08-16 15:00:00 [place] therapy 10:20: [id number] 00 Nutrition nutritional Nutrition Resolve 2017-072018-07-04 Love restriction d 08-16 15:00:00 [place] s 10:20: [id number] 00 Neuro confusion Neuro/Emot Resolve 2017-072018-08-06 Love present ion d 08-16 15:00:00 [place] 10:20: [id number] 00 Neuro anxiety Neuro/Emot Resolve 2017-072018-08-06 Love present ion d 08-16 15:00:00 [place] 10:20: [id number] 00 Neuro depressive Neuro/Emot Resolve 2017-072018-08-06 Love feelings ion d 08-16 15:00:00 [place] present 10:20: [id number] 00 Safety risk for Safety Resolve 2017-072018-07-04 Love hospitaliza d 08-16 15:00:00 [place] tion 10:20: [id number] 00 Safety fall risk Safety Resolve 2017-072018-07-04 Ericka factor d 08-16 15:00:00 Vivian present 10:20: 00 Musculoskel requires Musculoske Unknown 2017-07 Love etal human letal 08-16 [place] assist to 10:20: [id number] leave home 00 Cardio hypertensio Cardiovasc Resolve [...] d 2-10 15:00:00 [place] deficit Services 14:00: [id number] 00 Social knowledge/s BRISEYDA: Resolve 2017-072018-09-22 [facility] kill Social d 2-10 13:00:00 [place] deficit - Services 14:00: [id number] pt 00 Social knowledge/s BRISEYDA: Resolve 2017-072018-09-22 [facility] Services kill Social d 2-10 13:00:00 [place] deficit - Services 14:00: [id number] cg 00 Musculoskel requires Musculoske Unknown 2017-07 [place] etal human letal 2- [place] assist to 15:30: leave home 00 Diagnoses knowledge/s Diagnoses Active 2017-07 Kezia kill 224 [place] deficit: cg 13:00: [id number] 00 Integument skin Integument Resolve 2017-072018-08-06 Shelby [...] Active Kezia hospitaliza 2-18 [place] tion 14:00: [id number] 00 Safety can be left Safety Unknown Kezia alone for 2-18 [place] only short 14:00: [id number] periods 00 Pain frequent Pain Mgmt Resolve 2018-09-24 Lam pain d 2-27 15:00:00 [place] 15:50: [id number] 00 Safety can be left Safety Resolve 2018-10-08 Kezia alone for d 3-04 15:00:00 [place] only short 13:00: [id number] periods 00 Cardio edema Cardiovasc Resolve 2018-2018-10-08 [...] Lam feelings ion 4-08 [place] present 15:45: [id number] 00 Respiratory lung sounds Respirator Resolve 2018-10-29 [place] deficit y d 4-10 13:00:00 [place] 13:00: 00 Infection s/s of Infection Resolve 2019-02-04 [place] infection d 4-17 12:30:00 [place] 13:00: 00 Respiratory smoker Respirator Resolve 2018-11-05 [place] y d 4-17 13:00:00 [place] 13:00: 00 Neuro depressive Neuro/Emot Resolve 2018-12-10 Lam feelings ion d 4-20 12:30:00 [place] present 12:20: [id number] 00 Respiratory smoker Respirator Resolve 2018-11-20 [place] [...] 08 13:30:00 [place] deficit - Services 13:30: [id number] pt 00 Respiratory lung sounds Respirator Resolve [...] soni n d 12-18 12:30:00 Narendra 12:30: [id number] 00 Respiratory lung sounds Respirator Resolve 2018-12-24 [...] restriction d 01-16 12:30:00 [place] s 15:00: [id number] 00 Safety can be left Safety Resolve 2019-02-18 Kezia alone for d 01-16 12:10:00 [place] only short 15:00: [id number] periods 00 Respiratory smoker Respirator Resolve 2019-01-21 [...] Social 7-12 [place] deficit - Services 14:00: [id number] cg 00 Respiratory lung sounds Respirator Resolve [...] Kezia feelings ion 02-18 [place] present 14:30: [id number] 00 Respiratory lung sounds Respirator Resolve 2019-03-04 [...] d 03-12 12:30:00 [place] only short 15:30: [id number] periods 00 Respiratory smoker Respirator Resolve 2019-03-12 [...] 12:30: 00 Respiratory smoker Respirator Resolve 2019-04-01 [place] y d 9 12:30:00 [place] 12:30: 00 [...] d 0-14 12:45:00 [place] only short 15:00: [id number] periods 00 Musculoskel requires Musculoske Unknown 2018-07 [...] alone for -12 [place] only short 15:30: [id number] periods 00 Respiratory smoker Respirator Resolve 2018-072019-07-09 [...] medication 00 issue Endo/Jose diabetic Endo/Jose Unknown [facility] foot care 08-05 [place] 14:00: [id number] 00 Social financial BRISEYDA: Active Kezia Services resource Social 08-05 [facility] deficit Services 14:00: [id number] 00 Integument skin Integument Active 2019-0 Love integrity 08-17 [place] risk 10:30: [id number] 00 Elimination urinary Eliminatio Resolve 2019-08-19 Love incontinenc n d 08-17 12:30:00 [place] e 10:30: [id number] 00 Elimination bowel Eliminatio Resolve 2019-09-02 Love incontinenc n d 08-17 12:30:00 [place] e 10:30: [id number] 00 Elimination diarrhea Eliminatio Resolve 2019-09-02 Love n d 08-17 12:30:00 [place] 10:30: [id number] 00 Neuro confusion Neuro/Emot Active 2019-0 Love present ion 08-17 [place] 10:30: [id number] 00 Neuro anxiety Neuro/Emot Active 2019-0 Love present ion 08-17 [place] 10:30: [id number] 00 Neuro impaired Neuro/Emot Active 2019-0 Love decision-ma ion 08-17 [place] wilmer 10:30: [id number] 00 Neuro memory Neuro/Emot Active 2019-0 Love deficit ion 08-17 [place] needing 10:30: [id number] supervision 00 Activity self-care Activity Active 2019-0 Love deficit 08-17 [place] 10:30: [id number] 00 Medication oral med Meds Resolve 2019-09-30 Love assistance d 08-17 12:30:00 [place] required 10:30: [id number] 00 Musculoskel transfer Musculoske Active 2019-0 Love etal assistance letal 08-17 [place] required 10:30: [id number] 00 Musculoskel requires Musculoske Unknown 2019- Love etal human letal 08-17 [place] assist to 10:30: [id number] leave home 00 Respiratory smoker Respirator Resolve [...] Balance/En d 2-05 15:45:00 [place] durance 15:35: [id number] 00 Balance/End knowledge/s PT/OT: Resolve 2019-09-09 Lam urance kill Balance/En d 2-05 15:45:00 [place] deficit: pt durance 15:35: [id number] 00 Gait/Locomo knowledge/s PT/OT: Resolve 2019-09-09 Lam tion kill Gait/Locom d 2-05 15:45:00 [place] problems deficit: pt otion 15:35: [id number] 00 Gait/Locomo knowledge/s PT/OT: Resolve 2019-09-09 Lam tion kill Gait/Locom d 2-05 15:45:00 [place] problems deficit: cg otion 15:35: [id number] 00 Gait/Locomo gait PT/OT: Resolve 2019-09-09 Lam tion deficit Gait/Locom d 2-05 15:45:00 [place] problems otion 15:35: [id number] 00 Respiratory oxygen Respirator Resolve 2019-09-02 [place] [...] d 3-06 15:00:00 [place] 15:00: 00 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 PT/OT: Active Shelby urance rdination Balance/En [...] n 10-15 [place] e 18:10: RN 00 Respiratory dyspnea Respirator Active Kaylynn present y 10-20 [place] 11:00: RN 00 Respiratory oxygen Respirator Active Kaylynn treatments y 10-20 [place] in home 11:00: RN 00 Respiratory smoker Respirator Active Kaylynn y 10-20 [place] 11:00: RN 00 Allergies, Adverse Reactions, Alerts Allergy Allergy Status Severity Reaction(s) Onset Inactive Treating Comments Name Type Date Date Clinician phenergan Unknown Active Unknown Reaction Ernestine Unknown 3-23 (Robert) Kat [id number] effexor Unknown Active Unknown Reaction Ernestine Unknown 3-23 (Robert) Kat [id number] compazine Unknown Active Unknown Reaction Ernestine Unknown 3-23 (Robert) [place] [id number] adhesive Unknown Active Unknown Reaction Ernestine tape Unknown 3-23 (Robert) [place] [id number] milk Unknown Active Unknown Reaction Ernestine Unknown 3-23 (Robert) [place] [id number] prochlorper Base Active Unknown extrapyramidal 2017-07 [place] azine Ingredient symptoms - Dilip venlafaxine Base Active Severe Hives, 2017-07 [place] Ingredient difficulty 08-09 Dilip breathing, itching promethazin Base Active Unknown extrapyramidal 2017-07 [place] e Ingredient symptoms - Dilip Gadolinium- Allergen [...] mg MD,Radomir tablet tablet traZODone traZODone 2017-07 No Stevanovic Unknown Unknown 100 mg 100 [...] unit/gram ointmnt ointmnt fentaNYL 25 fentaNYL 25 2019- No Liz Unknown Unknown mcg/hr mcg/hr 10-01 [...] ,Jill intravenous intravenous solution solution gabapentin gabapentin 2019-0 2019- No Liz Unknown Unknown 300 mg 300 mg 02-24 MD,Jill capsule capsule metoclopram metoclopram No Liz Unknown Unknown fahad 10 mg fahad 10 mg 02-24 MD,Jill tablet tablet Xarelto 20 Xarelto 20 2017-07- No Liz Unknown Unknown mg tablet mg tablet 08-16 12 MD,Jill traZODone traZODone 2017-07- No Liz Unknown [...] mg tablet 10-06 ,Jill celecoxib celecoxib 2019- Yes Liz Unknown [...] mg 09-29 ,Jill tablet tablet gabapentin gabapentin 2020- Yes Liz Unknown Unknown 300 mg 300 mg 09-29 ,Jill capsule capsule gabapentin gabapentin 2020- Yes Liz Unknown Unknown 600 mg 600 mg 09-29 ,Jill tablet tablet ALPRAZolam ALPRAZolam 0 Yes Liz [...] Liz Unknown Unknown 4 mg 4 mg - Jill CARRENO disintegrat disintegrat ing tablet ing tablet albuterol albuterol 2019-0 Yes Liz Unknown Unknown sulfate HFA sulfate HFA - Jill CARRENO 90 90 mcg/actuati mcg/actuati on aerosol on aerosol inhaler inhaler Imodium A-D Imodium A-D 2019-0 Yes Liz Unknown Unknown 2 mg tablet 2 mg tablet 3 Jill CARRENO oxygen oxygen 2019-0 Yes Liz Unknown Unknown 10-06 Jill CARRENO Colace 100 Colace 100 2019-0 Yes Liz Unknown Unknown mg capsule mg capsule 10-06 Jill CARRENO Miralax 17 Miralax 17 2019-0 2020- Yes Liz Unknown Unknown gram oral gram oral 10-06 Jill CARRENO powder powder packet packet Aloxi 0.25 Aloxi 0.25 2019-0 Yes Liz Unknown Unknown mg/5 mL mg/5 mL 10-06 Jill CARRENO intravenous intravenous solution solution Kadcyla 100 Kadcyla 100 2019-0 Yes Liz Unknown Unknown mg mg 10-06 Jill CARRENO intravenous intravenous solution solution TylenoL 325 TylenoL 325 2020- Yes Liz Unknown Unknown mg tablet mg tablet 10-06 Jill CARRENO oxyCODONE oxyCODONE Yes Liz Unknown Unknown 10 mg 10 mg 10-06 iJll CARRENO tablet tablet Klor-Con Klor-Con Yes Liz Unknown [...] Observation Time Observation Value Comments SYSTOLIC mm[Hg] 2019-10-21 18:11:10 116 mm[Hg] mm[Hg] Method: Sit SYSTOLIC mm[Hg] 2019-08-17 18:10:05 120 mm[Hg] mm[Hg] Method: Stand SYSTOLIC mm[Hg] 2019-09-30 18:10:49 130 mm[Hg] mm[Hg] Method: Lie DIASTOLIC mm[Hg] 2019-10-21 18:11:10 72 mm[Hg] mm[Hg] Method: Sit DIASTOLIC mm[Hg] 2019-08-17 18:10:05 80 mm[Hg] mm[Hg] Method: Stand DIASTOLIC mm[Hg] 2019-09-30 18:10:49 72 mm[Hg] mm[Hg] Method: Lie PULSE 2019-10-21 18:11:10 92 /min /min RESP RATE 2019-10-21 18:11:10 18 /min /min TEMP 2019-10-21 18:11:10 98.6 [degF] Procedures This patient has no known procedures. Results This patient has no known results.
--- OUTSIDE RECORDS SUMMARY | 2019-11-13 16:32 | XMS REPORT ---
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, disorder, RN recurrent, recurrent, unspecified unspecified Anxiety Anxiety Diagnosis Active Kaylynn disorder, disorder, [place] unspecified unspecified RN Pain frequent Pain Mgmt Resolve 2017-072018-08-27 Love pain d 08-16 15:00:00 [place] 10:20: [id number] 00 Respiratory smoker Respirator Resolve 2017-072018-07-23 Love y d 08-16 15:00:00 [place] 10:20: [id number] 00 Endo/Jose anti-coagul Endo/Jose Resolve 2017-072018-06-25 Love ation d 08-16 15:00:00 [place] therapy 10:20: [id number] 00 Nutrition nutritional Nutrition Resolve 2017-072018-07-04 Love restriction d 08-16 15:00:00 [place] s 10:20: [id number] 00 Neuro confusion Neuro/Emot Resolve 2017-072018-08-06 Love present ion d 08-16 15:00:00 [place] 10:20: [id number] 00 Neuro anxiety Neuro/Emot Resolve 2017-072018-08-06 Love present ion d 08-16 15:00:00 [place] 10:20: [id number] 00 Neuro depressive Neuro/Emot Resolve 2017-072018-08-06 Love feelings ion d 08-16 15:00:00 [place] present 10:20: [id number] 00 Safety risk for Safety Resolve 2017-072018-07-04 Love hospitaliza d 08-16 15:00:00 [place] tion 10:20: [id number] 00 Safety fall risk Safety Resolve 2017-072018-07-04 Ericka factor d 08-16 15:00:00 Vivian present 10:20: 00 Musculoskel requires Musculoske Unknown 2017-07 Love etal human letal 08-16 [place] assist to 10:20: [id number] leave home 00 Cardio hypertensio Cardiovasc Resolve [...] d 2-10 15:00:00 [place] deficit Services 14:00: [id number] 00 Social knowledge/s BRISEYDA: Resolve 2017-072018-09-22 [facility] kill Social d 2-10 13:00:00 [place] deficit - Services 14:00: [id number] pt 00 Social knowledge/s BRISEYDA: Resolve 2017-072018-09-22 [facility] kill Social d 2-10 13:00:00 [place] deficit - Services 14:00: [id number] cg 00 Musculoskel requires Musculoske Unknown 2017-07 [place] etal human letal 2- [place] assist to 15:30: leave home 00 Diagnoses knowledge/s Diagnoses Active 2017-07 Kezia kill 224 [place] deficit: cg 13:00: [id number] 00 Integument skin Integument Resolve 2017-072018-08-06 [place] [...] Active Kezia hospitaliza 2-18 [place] tion 14:00: [id number] 00 Safety can be left Safety Unknown Kezia alone for 2-18 [place] only short 14:00: [id number] periods 00 Pain frequent Pain Mgmt Resolve 2018-09-24 Lam pain d 2-27 15:00:00 [place] 15:50: [id number] 00 Safety can be left Safety Resolve 2018-10-08 Kezia alone for d 3-04 15:00:00 [place] only short 13:00: [id number] periods 00 Cardio edema Cardiovasc Resolve 2018-2018-10-08 [...] Lam feelings ion 4-08 Briones present 15:45: [id number] 00 Respiratory lung sounds Respirator Resolve 2018-10-29 [place] deficit y d 4-10 13:00:00 [place] 13:00: 00 Infection s/s of Infection Resolve 2019-02-04 Shelby infection d 4-17 12:30:00 [place] 13:00: 00 Respiratory smoker Respirator Resolve 2018-11-05 Shelby y d 4-17 13:00:00 [place] 13:00: 00 Neuro depressive Neuro/Emot Resolve 2018-12-10 Lam feelings ion d 4-20 12:30:00 Briones present 12:20: [id number] 00 Respiratory smoker Respirator Resolve 2018-11-20 Shelby [...] 08 13:30:00 [place] deficit - Services 13:30: [id number] pt 00 Respiratory lung sounds Respirator Resolve [...] soni n d 12-18 12:30:00 Narendra 12:30: [id number] 00 Respiratory lung sounds Respirator Resolve 2018-12-24 [...] restriction d 01-16 12:30:00 [place] s 15:00: [id number] 00 Safety can be left Safety Resolve 2019-02-18 Kezia alone for d 01-16 12:10:00 [place] only short 15:00: [id number] periods 00 Respiratory smoker Respirator Resolve 2019-01-21 [...] Social 7-12 [place] deficit - Services 14:00: [id number] cg 00 Respiratory lung sounds Respirator Resolve [...] Kezia feelings ion 02-18 [place] present 14:30: [id number] 00 Respiratory lung sounds Respirator Resolve 2019-03-04 [...] d 03-12 12:30:00 [place] only short 15:30: [id number] periods 00 Respiratory smoker Respirator Resolve 2019-03-12 [...] 13:30: 00 Respiratory smoker Respirator Unknown 2018-07 [place] y 0-02 [place] 13:30: 00 Neuro anxiety [...] d 0-14 12:45:00 [place] only short 15:00: [id number] periods 00 Musculoskel requires Musculoske Unknown 2018-07 [...] alone for -12 [place] only short 15:30: [id number] periods 00 Respiratory smoker Respirator Resolve 2018-072019-07-09 [...] Unknown Kezia foot care 08-05 [place] 14:00: [id number] 00 Social financial BRISEYDA: Active Ke[facility] Services resource Social 08-05 [facility] deficit Services 14:00: [id number] 00 Integument skin Integument Active 2019-0 Love integrity 08-17 [place] risk 10:30: [id number] 00 Elimination urinary Eliminatio Resolve 2019-08-19 Love incontinenc n d 08-17 12:30:00 [place] e 10:30: [id number] 00 Elimination bowel Eliminatio Resolve 2019-09-02 Love incontinenc n d 08-17 12:30:00 [place] e 10:30: [id number] 00 Elimination diarrhea Eliminatio Resolve 2019-09-02 Love n d 08-17 12:30:00 [place] 10:30: [id number] 00 Neuro confusion Neuro/Emot Active 2019-0 Love present ion 08-17 [place] 10:30: [id number] 00 Neuro anxiety Neuro/Emot Active 2019-0 Love present ion 08-17 [place] 10:30: [id number] 00 Neuro impaired Neuro/Emot Active 2019-0 Love decision-ma ion 08-17 [place] wilmer 10:30: [id number] 00 Neuro memory Neuro/Emot Active 2019-0 Love deficit ion 08-17 [place] needing 10:30: [id number] supervision 00 Activity self-care Activity Active 2019-0 Love deficit 08-17 [place] 10:30: [id number] 00 Medication oral med Meds Resolve 2019-09-30 Love assistance d 08-17 12:30:00 [place] required 10:30: [id number] 00 Musculoskel transfer Musculoske Active 2019-0 Love etal assistance letal 08-17 [place] required 10:30: [id number] 00 Musculoskel requires Musculoske Unknown 2019- Love etal human letal 08-17 [place] assist to 10:30: [id number] leave home 00 Respiratory smoker Respirator Resolve [...] Balance/En d 2-05 15:45:00 Briones durance 15:35: [id number] 00 Balance/End knowledge/s PT/OT: Resolve 2019-09-09 Lam urance kill Balance/En d 2-05 15:45:00 [place] deficit: pt durance 15:35: [id number] 00 Gait/Locomo knowledge/s PT/OT: Resolve 2019-09-09 Lam tion kill Gait/Locom d 2-05 15:45:00 Briones problems deficit: pt otion 15:35: [id number] 00 Gait/Locomo knowledge/s PT/OT: Resolve 2019-09-09 Lam tion kill Gait/Locom d 2-05 15:45:00 Briones problems deficit: cg otion 15:35: [id number] 00 Gait/Locomo gait PT/OT: Resolve 2019-09-09 Lam tion deficit Gait/Locom d 2-05 15:45:00 Briones problems otion 15:35: [id number] 00 Respiratory oxygen Respirator Resolve 2019-09-02 Shelby [...] d 3-06 15:00:00 [place] 15:00: 00 Balance/End balance/cook soup PT/OT: Active Shelby urance rdination Balance/En -06 [...] 18:10: RN 00 Respiratory dyspnea Respirator Active 2019- Kalyynn present y 10-20 [place] 11:00: RN 00 Respiratory oxygen Respirator Active 2019- Kaylynn treatments y 10-20 [place] in home 11:00: RN 00 Respiratory smoker Respirator Active 2019- Kaylynn y 10-20 [place] 11:00: RN 00 Neuro depressive Neuro/Emot Active Kaylynn feelings ion 10-20 [place] present 11:00: RN 00 Allergies, Adverse Reactions, Alerts Allergy Allergy Status Severity Reaction(s) Onset Inactive Treating Comments Name Type Date Date Clinician phenergan Unknown Active Unknown Reaction Ernestine Unknown 3-23 (Robert) [place] [id number] effexor Unknown Active Unknown Reaction Ernestine Unknown 3-23 (Robert) [place] [id number] compazine Unknown Active Unknown Reaction Ernestine Unknown 3-23 (Robert) [place] [id number] adhesive Unknown Active Unknown Reaction Ernestine tape Unknown 3-23 (Robert) Kat [id number] milk Unknown Active Unknown Reaction Ernestine Unknown 3-23 (Robert) Kat [id number] prochlorper Base Active Unknown extrapyramidal 2017-07 [place] azine Ingredient symptoms 1-19 Dilip venlafaxine Base Active Severe Hives, 2017-07 [place] Ingredient difficulty - Dilip breathing, itching promethazin Base Active Unknown extrapyramidal 2017-07 [place] e Ingredient symptoms -19 Dilip Gadolinium- Allergen [...] t/cryst) t/cryst) Xarelto 20 Xarelto 20 2017-07- Stevanovic Unknown Unknown mg tablet mg tablet [...] 2 Unknown ,Radomir liters ondansetron ondansetron 2017-07- Liz Unknown Unknown HCL 4 mg HCL 4 mg 08-16 Jill CARRENO tablet tablet oxyCODONE oxyCODONE No Stevanovic 10mg Unknown 10 mg 10 mg ,Radomir tablet tablet escitalopra escitalopra No Stevanovic 20mg Unknown m 20 mg m 20 mg MD,Radomir tablet tablet Rexulti 2 Rexulti 2 2017-07- Liz Unknown Unknown mg tablet mg tablet [...] Unknown Unknown 4 mg 4 mg 10-29 ,iJll disintegrat disintegrat ing tablet ing tablet amoxicillin [...] tablet Xarelto 20 Xarelto 20 2018-07 2020- No Liz Unknown Unknown mg tablet mg tablet 09-07 ,Jill doxycycline doxycycline 2018-07 2020- No Liz Unknown Unknown monohydrate monohydrate 07-27 ,Jill 100 mg 100 mg capsule capsule TylenoL 325 TylenoL 325 2018-07 2020- No Liz Unknown Unknown mg tablet [...] mg 07-27 ,Jill tablet tablet Klor-Con Klor-Con 2020-0 2020- [...] Unknown tablet tablet 09-09 ,Jill omeprazole omeprazole Yes Liz Unknown Unknown 40 40 09-24 Jill CARRENO-sodium mg-sodium bicarbonate bicarbonate 1.1 gram 1.1 gram capsule capsule glyBURIDE glyBURIDE Yes Liz Unknown Unknown 2.5 mg 2.5 mg 09-29 ,Jill tablet tablet gabapentin gabapentin 2020- Yes Liz Unknown Unknown 300 mg 300 mg 09-29 ,Jill capsule capsule gabapentin gabapentin 0 2020- Yes Liz Unknown Unknown 600 mg 600 mg 09-29 ,Jill tablet tablet ALPRAZolam ALPRAZolam Yes Liz Unknown Unknown 1 mg tablet 1 mg tablet 10-06 Jill CARRENO oxyCODONE 5 oxyCODONE 5 0 Yes Liz Unknown Unknown mg tablet mg tablet 10-06 Jill CARRENO ondansetron ondansetron Yes Liz Unknown Unknown HCL 4 mg [...] 10-06 Jill CARRENO tablet tablet Klor-Con Klor-Con Yes Liz [...]
--- OUTSIDE RECORDS SUMMARY | 2019-11-13 16:32 | XMS REPORT ---
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, disorder, RN recurrent, recurrent, unspecified unspecified Anxiety Anxiety Diagnosis Active Kaylynn disorder, disorder, [place] unspecified unspecified RN Pain frequent Pain Mgmt Resolve 2017-072018-08-27 Love pain d 08-16 15:00:00 [place] 10:20: [id number] 00 Respiratory smoker Respirator Resolve 2017-072018-07-23 Love y d 08-16 15:00:00 [place] 10:20: [id number] 00 Endo/Jose anti-coagul Endo/Jose Resolve 2017-072018-06-25 Love ation d 08-16 15:00:00 [place] therapy 10:20: [id number] 00 Nutrition nutritional Nutrition Resolve 2017-072018-07-04 Love restriction d 08-16 15:00:00 [place] s 10:20: [id number] 00 Neuro confusion Neuro/Emot Resolve 2017-072018-08-06 Love present ion d 08-16 15:00:00 [place] 10:20: [id number] 00 Neuro anxiety Neuro/Emot Resolve 2017-072018-08-06 Love present ion d 08-16 15:00:00 [place] 10:20: [id number] 00 Neuro depressive Neuro/Emot Resolve 2017-072018-08-06 Love feelings ion d 08-16 15:00:00 [place] present 10:20: [id number] 00 Safety risk for Safety Resolve 2017-072018-07-04 Love hospitaliza d 08-16 15:00:00 [place] tion 10:20: [id number] 00 Safety fall risk Safety Resolve 2017-072018-07-04 Ericka factor d 08-16 15:00:00 Vivian present 10:20: 00 Musculoskel requires Musculoske Unknown 2017-07 Love etal human letal 08-16 [place] assist to 10:20: [id number] leave home 00 Cardio hypertensio Cardiovasc Resolve [...] d 2-10 15:00:00 [place] deficit Services 14:00: [id number] 00 Social knowledge/s BRISEYDA: Resolve 2017-072018-09-22 [facility] kill Social d 2-10 13:00:00 [place] deficit - Services 14:00: [id number] pt 00 Social knowledge/s BRISEYDA: Resolve 2017-072018-09-22 [facility] kill Social d 2-10 13:00:00 [place] deficit - Services 14:00: [id number] cg 00 Musculoskel requires Musculoske Unknown 2017-07 [place] etal human letal 2- [place] assist to 15:30: leave home 00 Diagnoses knowledge/s Diagnoses Active 2017-07 Kezia kill 224 [place] deficit: cg 13:00: [id number] 00 Integument skin Integument Resolve 2017-072018-08-06 [place] [...] hospitaliza d 2-18 13:00:00 [place] tion 14:00: [id number] 00 Safety can be left Safety Unknown Kezia alone for 2-18 [place] only short 14:00: [id number] periods 00 Pain frequent Pain Mgmt Resolve 2018-09-24 Lam pain d 2-27 15:00:00 [place] 15:50: [id number] 00 Safety can be left Safety Resolve 2018-10-08 Kezia alone for d 3-04 15:00:00 [place] only short 13:00: [id number] periods 00 Cardio edema Cardiovasc Resolve 2018-10-08 [...] Lam feelings ion 4-08 Briones present 15:45: [id number] 00 Respiratory lung sounds Respirator Resolve 2018-10-29 [place] deficit y d 4-10 13:00:00 [place] 13:00: 00 Infection s/s of Infection Resolve 2019-02-04 [place] infection d 4-17 12:30:00 [place] 13:00: 00 Respiratory smoker Respirator Resolve 2018-11-05 Shelby y d 4-17 13:00:00 [place] 13:00: 00 Neuro depressive Neuro/Emot Resolve 2018-12-10 Lam feelings ion d 420 12:30:00 Br[place] present 12:20: [id number] 00 Respiratory smoker Respirator Resolve 2018-11-20 [place] [...] 11-26 13:30:00 [place] deficit - Services 13:30: [id number] pt 00 Respiratory lung sounds Respirator Resolve [...] soni n d 12-18 12:30:00 Narendra 12:30: [id number] 00 Respiratory lung sounds Respirator Resolve 2018-12-24 [...] restriction d 01-16 12:30:00 [place] s 15:00: [id number] 00 Safety can be left Safety Resolve 2019-02-18 Kezia alone for d 01-16 12:10:00 [place] only short 15:00: [id number] periods 00 Respiratory smoker Respirator Resolve 2019-01-21 [...] Social 7-12 [place] deficit - Services 14:00: [id number] cg 00 Respiratory lung sounds Respirator Resolve [...] Kezia feelings ion 02-18 [place] present 14:30: [id number] 00 Respiratory lung sounds Respirator Resolve 2019-03-04 [...] d 03-12 12:30:00 [place] only short 15:30: [id number] periods 00 Respiratory smoker Respirator Resolve 2019-03-12 [...] d 0-14 12:45:00 [place] only short 15:00: [id number] periods 00 Musculoskel requires Musculoske Unknown 2018-07 [...] alone for 12 [place] only short 15:30: [id number] periods 00 Respiratory smoker Respirator Resolve 2018-072019-07-09 [...] Unknown Kezia foot care 08-05 [place] 14:00: [id number] 00 Social financial BRISEYDA: Active Kezia Services resource Social 08-05 [facility] deficit Services 14:00: [id number] 00 Integument skin Integument Active 2019- Love integrity 08-17 [place] risk 10:30: [id number] 00 Elimination urinary Eliminatio Resolve 2019-08-19 Love incontinenc n d 08-17 12:30:00 [place] e 10:30: [id number] 00 Elimination bowel Eliminatio Resolve 2019-09-02 Love incontinenc n d 08-17 12:30:00 [place] e 10:30: [id number] 00 Elimination diarrhea Eliminatio Resolve 2019-09-02 Love n d 08-17 12:30:00 [place] 10:30: [id number] 00 Neuro confusion Neuro/Emot Active 2019-0 Love present ion 08-17 [place] 10:30: [id number] 00 Neuro anxiety Neuro/Emot Active 2019- Love present ion 08-17 [place] 10:30: [id number] 00 Neuro impaired Neuro/Emot Active 2019-0 Love decision-ma ion 08-17 [place] wilmer 10:30: [id number] 00 Neuro memory Neuro/Emot Active 2019- Love deficit ion 08-17 [place] needing 10:30: [id number] supervision 00 Activity self-care Activity Resolve 2019-10-28 Love deficit d 08-17 13:00:00 [place] 10:30: [id number] 00 Medication oral med Meds Resolve 2019-09-30 Love assistance d 08-17 12:30:00 [place] required 10:30: [id number] 00 Musculoskel transfer Musculoske Resolve 2019-10-28 Love etal assistance letal d 08-17 13:00:00 [place] required 10:30: [id number] 00 Musculoskel requires Musculoske Unknown Love etal human letal 08-17 [place] assist to 10:30: [id number] leave home 00 Respiratory smoker Respirator Resolve 2019-2019-08-20 Shelby y anil 08-19 16:15:00 [place] 12:30: 00 Neuro knowledge/s [...] 12:30: 00 Medication knowledge/s Meds Resolve 2019-09-30 [place] kill d 2- 12:30:00 [place] deficit: cg 12:30: 00 Musculoskel requires Musculoske Resolve 2019-10-28 Shelby etal human letal d 2- 13:00:00 [place] assist to 12:30: leave home 00 Balance/End endurance PT/OT: Resolve 2019-09-09 Lam urance deficit Balance/En d 2- 15:45:00 Briones durance 15:35: [id number] 00 Balance/End knowledge/s PT/OT: Resolve 2019-09-09 Lam urance kill Balance/En d 2- 15:45:00 Briones deficit: pt durance 15:35: [id number] 00 Gait/Locomo knowledge/s PT/OT: Resolve 2019-09-09 Lam tion kill Gait/Locom d 2- 15:45:00 Briones problems deficit: pt otion 15:35: [id number] 00 Gait/Locomo knowledge/s PT/OT: Resolve 2019-09-09 Lam tion kill Gait/Locom d 2- 15:45:00 Briones problems deficit: cg otion 15:35: [id number] 00 Gait/Locomo gait PT/OT: Resolve 2019-09-09 Lam tion deficit Gait/Locom d 2 15:45:00 Briones problems otion 15:35: [id number] 00 Respiratory oxygen Respirator Resolve 2019-09-02 Shelby [...] d 3-06 15:00:00 [place] 15:00: 00 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/OT: Active Shelby urance rdination Balance/En 09-24 [place] deficit durance 15:00: 00 Gait/Locomo gait PT/OT: Active Shelby tion deficit Gait/Locom 06 [place] problems otion 15:00: 00 Endo/Jose knowledge/s Endo/Jose Resolve 2019-2019-09-30 Shelby kill d 3- 12:30:00 [place] deficit: pt 12:30: 00 Endo/Jose glucose Endo/Jose Active Shelby testing 3 Valle[place] dependence 12:30: 00 Endo/Jose diabetic Endo/Jose Active Kaylynn foot care 10-15 [place] 18:10: RN 00 Elimination urinary Eliminatio Resolve 2019-10-28 Kaylynn incontinenc n d 10-15 13:00:00 [place] e 18:10: RN 00 Respiratory dyspnea Respirator Active Kaylynn present y - [place] 11:00: RN 00 Respiratory oxygen Respirator Active Kaylynn treatments y 10-20 [place] in home 11:00: RN 00 Respiratory smoker Respirator Active Kaylynn y - [place] 11:00: RN 00 Neuro depressive Neuro/Emot Active Kaylynn feelings ion - [place] present 11:00: RN 00 Safety risk for Safety Active Kaylynn hospitaliza -15 [place] tion 11:10: RN 00 Allergies, Adverse Reactions, Alerts Allergy Allergy Status Severity Reaction(s) Onset Inactive Treating Comments Name Type Date Date Clinician phenergan Unknown Active Unknown Reaction Ernestine Unknown 3-23 (Robert) Kat [id number] effexor Unknown Active Unknown Reaction Ernestine Unknown 3-23 (Robert) Kat [id number] compazine Unknown Active Unknown Reaction Ernestine Unknown 3-23 (Robert) Kat [id number] adhesive Unknown Active Unknown Reaction Ernestine tape Unknown 3-23 (Robert) Kat [id number] milk Unknown Active Unknown Reaction Ernestine Unknown 3-23 (Robert) Kat [id number] prochlorper Base Active Unknown extrapyramidal 2017-07 [place] azine Ingredient symptoms 1-19 Dilip venlafaxine Base Active Severe Hives, 2017-07 [place] Ingredient difficulty -19 Dilip breathing, itching promethazin Base Active Unknown extrapyramidal 2017-07 [place] e Ingredient symptoms 1-19 Dilip Gadolinium- Allergen Active Severe Anaphylaxis [place] Containing Group 04-16 Vallely Contrast Media Medications [...] Unknown 2 mg tablet 2 mg tablet MDRadirvingir dexAMETHaso dexAMETHaso 2017-07- No Liz Unknown Unknown [...] No Liz Unknown Unknown mcg/hr mcg/hr 10-01 ,Jill transdermal transdermal patch patch methocarbam methocarbam 2018- No Liz Unknown Unknown oL 750 mg oL 750 mg 10-23 ,Jill tablet tablet pantoprazol pantoprazol 2019- Liz Unknown [...] Soma 250 mg Soma 250 mg 2019- Ilz Unknown Unknown tablet tablet 01-21 ,Jill [...] Unknown Unknown 875 mg-125 875 mg-125 05-01 MD,Jill mg tablet mg tablet Kadcyla 100 Kadcyla 100 2018-07- No Liz Unknown Unknown mg mg 10-06 ,Jill intravenous intravenous solution solution sulfacetami sulfacetami [...] ayed release release Klor-Con Klor-Con 2020-0 2020- No Liz Unknown Unknown M20 mEq [...] mg tablet 08-19 ,Jill cetirizine cetirizine Yes Ilz Unknown Unknown 10 mg 10 mg 08-19 MD,Jill tablet tablet Soma 250 mg Soma 250 mg 2019- Yes Liz Unknown Unknown tablet tablet 08-19 [...] 1 mg tablet 1 mg tablet 08-25 Jill CARRENO oxyCODONE 5 oxyCODONE 5 2020- Yes Liz Unknown Unknown mg tablet mg tablet 09-02 ,Jill oxyCODONE oxyCODONE 2020- Yes Liz Unknown Unknown 10 mg 10 mg 09-02 ,Jill tablet tablet Soma 250 mg Soma 250 mg 0 2020- Yes Liz Unknown Unknown tablet tablet [...] tablet tablet 09-09 Jill CARRENO omeprazole omeprazole 2019-0 Yes Liz Unknown Unknown 40 40 3- ,Jill mg-sodium mg-sodium bicarbonate bicarbonate 1.1 gram [...] tablet 10-06 ,Jill oxyCODONE 5 oxyCODONE 5 Yes Liz Unknown Unknown mg tablet mg tablet 10-06 ,Jill ondansetron ondansetron 2020- Yes Liz Unknown Unknown HCL 4 mg HCL 4 mg 10-06 ,Jill tablet tablet Lupron Lupron 0 Yes Liz Unknown Unknown [place] 11.25 [place] 11.25 3- Jill CARRENO mg (3 mg (3 month) [...] capsule 10-06 ,Jill Miralax 17 Miralax 17 2020- Yes Liz Unknown Unknown gram oral [...] mg tablet 10-15 Jill CARRENO cefdinir cefdinir 2019-0 Yes Liz Unknown Unknown 300 mg 300 mg 10-15 Jill CARRENO capsule capsule lactulose lactulose 2019-0 Yes Liz Unknown Unknown 10 gram/15 10 gram/15 10-15 Jill CARRENO mL (15 mL) mL (15 mL) oral oral solution solution nystatin nystatin 2019-0 Yes Liz Unknown Unknown 100,000 100,000 10-15 Jill CARRENO unit/mL unit/mL oral oral suspension suspension levETIRAcet levETIRAcet 2019- Yes Liz Unknown Unknown am 500 mg am 500 mg 10-15 MD,Jill tablet tablet oxyCODONE oxyCODONE Yes Liz Unknown Unknown 10 mg 10 mg 10-27 MD,Jill tablet tablet fentaNYL fentaNYL Yes Liz Unknown Unknown 100 mcg/hr 100 mcg/hr 10-27 MD,Jill transdermal transdermal patch patch Vital Signs Vital [...]
--- OUTSIDE RECORDS SUMMARY | 2019-11-13 16:33 | XMS REPORT ---
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, disorder, RN recurrent, recurrent, unspecified unspecified Anxiety Anxiety Diagnosis Active Kaylynn disorder, disorder, Malnoske unspecified unspecified RN Pain frequent Pain Mgmt Resolve 2017-072018-08-27 Love pain d 08-16 15:00:00 Holly 10:20: [id number] 00 Respiratory smoker Respirator Resolve 2017-072018-07-23 Love y d 08-16 15:00:00 Holly 10:20: [id number] 00 Endo/Jose anti-coagul Endo/Jose Resolve 2017-072018-06-25 Love ation d 08-16 15:00:00 Holly therapy 10:20: [id number] 00 Nutrition nutritional Nutrition Resolve 2017-072018-07-04 Love restriction d 08-16 15:00:00 Holly s 10:20: [id number] 00 Neuro confusion Neuro/Emot Resolve 2017-072018-08-06 Love present ion d 08-16 15:00:00 Holly 10:20: [id number] 00 Neuro anxiety Neuro/Emot Resolve 2017-072018-08-06 Love present ion d 08-16 15:00:00 Holly 10:20: [id number] 00 Neuro depressive Neuro/Emot Resolve 2017-072018-08-06 Love feelings ion d 08-16 15:00:00 Holly present 10:20: [id number] 00 Safety risk for Safety Resolve 2017-072018-07-04 Love hospitaliza d 08-16 15:00:00 Holly tion 10:20: [id number] 00 Safety fall risk Safety Resolve 2017-072018-07-04 Ericka factor d 08-16 15:00:00 Vivian present 10:20: 00 Musculoskel requires Musculoske Unknown 2017-07 Love etal human letal 08-16 Holly assist to 10:20: [id number] leave home 00 Cardio hypertensio Cardiovasc Resolve [...] d 2-10 15:00:00 [place] deficit Services 14:00: [id number] 00 Social knowledge/s BRISEYDA: Resolve 2017-072018-09-22 Kezia Services kill Social d 2-10 13:00:00 [place] deficit - Services 14:00: [id number] pt 00 Social knowledge/s BRISEYDA: Resolve 2017-072018-09-22 [facility] Services kill Social d 2-10 13:00:00 [place] deficit - Services 14:00: [id number] cg 00 Musculoskel requires Musculoske Unknown 2017-07 Shelby etal human letal 2- Vallely assist to 15:30: leave home 00 Diagnoses knowledge/s Diagnoses Active 2017-07 Kezia kill 224 [place] deficit: cg 13:00: [id number] 00 Integument skin Integument Resolve 2017-072018-08-06 Shelby [...] Active Kezia hospitaliza 2-18 [place] tion 14:00: [id number] 00 Safety can be left Safety Unknown Kezia alone for 2-18 [place] only short 14:00: [id number] periods 00 Pain frequent Pain Mgmt Resolve 2018-09-24 Lam pain d 2-27 15:00:00 Briones 15:50: [id number] 00 Safety can be left Safety Resolve 2018-10-08 Kezia alone for d 3-04 15:00:00 [place] only short 13:00: [id number] periods 00 Cardio edema Cardiovasc Resolve 2018-2018-10-08 [...] Lam feelings ion 4-08 Briones present 15:45: [id number] Respiratory lung sounds Respirator Resolve 2018-10-29 Shelby deficit y d 4-10 13:00:00 Vallely 13:00: 00 Infection s/s of Infection Resolve 2019-02-04 Shelby infection d 4-17 12:30:00 Vallely 13:00: 00 Respiratory smoker Respirator Resolve 2018-11-05 Shelby y d 4-17 13:00:00 Vallely 13:00: 00 Neuro depressive Neuro/Emot Resolve 2018-12-10 Lam feelings ion d 4-20 12:30:00 Briones present 12:20: [id number] 00 Respiratory smoker Respirator Resolve 2018-11-20 Shelby [...] 08 13:30:00 [place] deficit - Services 13:30: [id number] pt 00 Respiratory lung sounds Respirator Resolve [...] soni n d 12-18 12:30:00 Narendra 12:30: [id number] 00 Respiratory lung sounds Respirator Resolve 2018-12-24 [...] restriction d 01-16 12:30:00 [place] s 15:00: [id number] 00 Safety can be left Safety Resolve 2019-02-18 Kezia alone for d 01-16 12:10:00 [place] only short 15:00: [id number] periods 00 Respiratory smoker Respirator Resolve 2019-01-21 [...] Social 7-12 [place] deficit - Services 14:00: [id number] cg 00 Respiratory lung sounds Respirator Resolve [...] Kezia feelings ion 02-18 [place] present 14:30: [id number] 00 Respiratory lung sounds Respirator Resolve 2019-03-04 [...] d 03-12 12:30:00 [place] only short 15:30: [id number] periods 00 Respiratory smoker Respirator Resolve 2019-03-12 [...] d 0-14 12:45:00 [place] only short 15:00: [id number] periods 00 Musculoskel requires Musculoske Unknown 2018-07 [...] alone for -12 [place] only short 15:30: [id number] periods 00 Respiratory smoker Respirator Resolve 2018-072019-07-09 [...] Unknown Kezia foot care 08-05 [place] 14:00: [id number] 00 Social financial BRISEYDA: Active Kezia Services resource Social 08-05 [facility] deficit Services 14:00: [id number] 00 Integument skin Integument Active 2019-0 Love integrity 08-17 Holly risk 10:30: [id number] 00 Elimination urinary Eliminatio Resolve 2019-08-19 Love incontinenc n d 08-17 12:30:00 Holly e 10:30: [id number] 00 Elimination bowel Eliminatio Resolve 2019-09-02 Love incontinenc n d 08-17 12:30:00 Holly e 10:30: [id number] 00 Elimination diarrhea Eliminatio Resolve 2019-09-02 Love n d 08-17 12:30:00 Holly 10:30: [id number] 00 Neuro confusion Neuro/Emot Active 2019-0 Love present ion 08-17 Holly 10:30: [id number] 00 Neuro anxiety Neuro/Emot Active 2019-0 Love present ion 08-17 Holly 10:30: [id number] 00 Neuro impaired Neuro/Emot Active 2019-0 Love decision-ma ion 08-17 Holly wilmer 10:30: [id number] 00 Neuro memory Neuro/Emot Active 2019-0 Love deficit ion 08-17 Holly needing 10:30: [id number] supervision 00 Activity self-care Activity Active 2019-0 Love deficit 08-17 Holly 10:30: [id number] 00 Medication oral med Meds Resolve 2019-09-30 Love assistance d 08-17 12:30:00 Holly required 10:30: [id number] 00 Musculoskel transfer Musculoske Active 2019-0 Love etal assistance letal 08-17 Holly required 10:30: [id number] 00 Musculoskel requires Musculoske Unknown 2019- Love etal human letal 08-17 Holly assist to 10:30: [id number] leave home 00 Respiratory smoker Respirator Resolve [...] Balance/En d 2-05 15:45:00 Briones durance 15:35: [id number] 00 Balance/End knowledge/s PT/OT: Resolve 2019-09-09 Lam urance kill Balance/En d 2-05 15:45:00 Briones deficit: pt durance 15:35: [id number] 00 Gait/Locomo knowledge/s PT/OT: Resolve 2019-09-09 Lam tion kill Gait/Locom d 2-05 15:45:00 Briones problems deficit: pt otion 15:35: [id number] 00 Gait/Locomo knowledge/s PT/OT: Resolve 2019-09-09 Lam tion kill Gait/Locom d 2-05 15:45:00 Briones problems deficit: cg otion 15:35: [id number] 00 Gait/Locomo gait PT/OT: Resolve 2019-09-09 Lam tion deficit Gait/Locom d 2-05 15:45:00 Briones problems otion 15:35: [id number] 00 Respiratory oxygen Respirator Resolve 2019-09-02 Shelby [...] d 3-06 15:00:00 Vallely 15:00: 00 Balance/End balance/respiratory coordinator PT/OT: Active Shelby urance rdination Balance/En [...] Unknown Reaction Ernestine Unknown 3-23 (Robert) [place] [id number] effexor Unknown Active Unknown Reaction Ernestine Unknown 3-23 (Robert) [place] [id number] compazine Unknown Active Unknown Reaction Ernestine Unknown 3-23 ([place]) [place] [id number] adhesive Unknown Active Unknown Reaction Ernestine tape Unknown 3-23 (Robert) [place] [id number] milk Unknown Active Unknown Reaction Ernestine Unknown 3-23 (Robert) [place] [id number] prochlorper Base Active Unknown extrapyramidal 2017-07 [place] azine Ingredient symptoms - Dilip venlafaxine Base Active Severe Hives, 2017-07 [place] Ingredient difficulty 08-09 Dilip breathing, itching promethazin Base Active Unknown extrapyramidal 2017-07 [place] e Ingredient symptoms 08-09 Dilip Gadolinium- Allergen [...] No Liz Unknown Unknown fahad 10 mg faahd 10 mg 02-24 ,Jill tablet tablet Xarelto [...] Unknown 160 mcg-4.5 160 mcg-4.5 07-27 Jill ACRRENO mcg/actuati mcg/actuati on HFA on HFA aerosol [...]
[2019-11-13] MEDS ORDERED: NS 0.9% 1000 ML** 1,000 ML IV ONE (17:39)
--- NOTE | 2019-11-13 17:40 | ED ---
GI/ HPI - HPI Summary HPI Summary: 44 year old female presents with dysuria for the past two days. She states she' s had hematuria that started yesterday that has improved. She states she has not been passing clots. She is on xarelto for history of blood clots. Sheis on chemo for breast cancer with last treatment 3 weeks ago. She admits to flank pain. No nausea or vomiting. No fevers. she denies any chest pain or shortness of breath. Denies abdominal pain. No diarrhea constipation. She was started on Bactrim yesterday. She denies any dizziness. She has no history of kidney stones. She has had gallbladder removed. - History of Current Complaint Chief Complaint: EDUrogenitalProblems Time Seen by Provider: 11/13/19 17:32 Stated Complaint: BLOOD IN URINE PER PT Pain Intensity: 6 - Additional Pertinent History Primary Care Physician: [id number] - Allergy/Home Medications Allergies/Adverse Reactions: Allergies Allergy/AdvReac Type Severity Reaction Status Date / Time Gadolinium-Containing Allergy Severe Anaphylatic Verified 11/13/19 16:23 Contrast Medi Shock venlafaxine Allergy Severe Hives/Diff. Verified 11/13/19 16:23 Breathing/I tching Latex, Natural Rubber Allergy Unknown Unknown Verified 11/13/19 16:23 Reaction Details milk Allergy Unknown Unknown Verified 11/13/19 16:23 Reaction Details Adhesive Tape Allergy skin break Verified 11/13/19 16:23 [Tegaderm Dressing] down prochlorperazine Allergy See Comment Verified 11/13/19 16:23 promethazine Allergy See Comment Verified 11/13/19 16:23 Home Medications: Home Medications DULoxetine DR CAP* [Cymbalta CAP*] 60 mg PO BEDTIME 05/11/18 [History Confirmed 10/20/19] Docusate CAP* [Colace Cap*] 200 mg PO BID PRN 04/14/19 [History Confirmed ] Cetirizine* [ZyrTEC 10 MG TAB*] 10 mg PO DAILY 07/06/19 [History Confirmed 10/19] Ondansetron TAB* [Zofran 4 MG Tab*] 4 mg PO .6X/DAY PRN 07/06/19 [History Confirmed 10/20/19] Budesonide/Formote 160/4.5(NF) [Symbicort 160/4.5 (NF)] 2 puff INH BID PRN 07/23 [History Confirmed 10/20/19] Brexpiprazole (Nf) [Rexulti] 2 mg PO DAILY 08/08/19 [History Confirmed 10/20/19] Rivaroxaban TAB(*) [Xarelto 20 mg] 20 mg PO DAILY tab 08/15/19 [Rx Confirmed ] acetaZOLAMIDE TAB* [Diamox Tab*] 250 mg PO BID #60 tab 08/15/19 [Rx Confirmed ] levETIRAcetam TAB* [Keppra TAB*] 1,000 mg PO BID #120 tab 08/15/19 [Rx Confirmed 10/20/19] oxyCODONE TAB* [Roxycodone TAB 5 mg*] 10 mg PO Q4H PRN #60 tab MDD 30 09/25/19 [ Rx Confirmed 10/20/19] Albuterol inh POWDER (NF) [Proair Respiclick] 1 puff INH Q6HR PRN 10/14/19 [ History Confirmed 10/20/19] Anastrozole (NF) [Arimidex (NF)] 1 mg PO DAILY 10/14/19 [History Confirmed 10/19] Dexamethasone TAB* [Decadron TAB*] 2 mg PO DAILY 10/14/19 [History Confirmed ] Omeprazole (Nf) [Prilosec (NF)] 40 mg PO DAILY 10/14/19 [History Confirmed 10/19] Potassium Chlor TAB* [Potassium Chlor TAB 20 MEQ*] 40 meq PO DAILY 10/14/19 [ History Confirmed 10/20/19] glyBURIDE TAB* [Diabeta TAB*] 2.5 mg PO QAM 10/14/19 [History Confirmed 10/20/19 ] Acetaminophen TAB* [Tylenol TAB*] 650 mg PO Q6H PRN tab 10/16/19 [Rx Confirmed 10/20/19] Cefdinir [Cefdinir 300 MG CAP] 300 mg PO BID #12 capsule 10/16/19 [Rx Confirmed 10/20/19] Nystatin SUSPENSION* 500,000 units PO QID #40 udc 10/16/19 [Rx Confirmed ] PMH/Surg Hx/FS Hx/Imm Hx Endocrine/Hematology History: Reports: Hx Anticoagulant Therapy, Hx Diabetes - pt sts she takes no meds. Denies: Hx Bone Marrow Disease, Hx Sickle Cell Disease, Hx Thyroid Disease, Hx Anemia, Other Endocrine/Hematological Disorders Cardiovascular History: Reports: Hx Congestive Heart Failure, Hx Deep Vein Thrombosis - Recent ovarian vein thrombosis, Hx Hypercholesterolemia, Other Cardiovascular Problems/Disorders - PT STATES DIFFICULTY WITH INJECTION FRACTION -HEART DAMAGE FROM CHEMO Denies: Hx Angina, Hx Auto Implanted Cardiovert Defib, Hx Cardiac Arrest, Hx Cardiomegaly, Hx Congenital Heart Disease, Hx Coronary Artery Disease, Hx Hypertension, Hx Myocardial Infarction, Hx Pacemaker/ICD, Hx Peripheral Vascular Disease, Hx Rheumatic Fever, Hx Syncope, Hx Valvular Heart Disease Respiratory History: Reports: Other Respiratory Problems/Disorders - SLEEPS WITH OXYGEN AT NIGHT 2L Denies: Hx Asthma, Hx Chronic Obstructive Pulmonary Disease (COPD), Hx Cystic Fibrosis, Hx Lung Cancer, Hx Pulmonary Edema, Hx Pulmonary Embolism, Hx Seasonal Allergies, Hx Sleep Apnea GI History: Reports: Other GI Disorders - history of ulcerative colitis Denies: Hx Cirrhosis, Hx Crohn's Disease, Hx Diverticulosis, Hx Gall Bladder Disease, Hx Gastroesophageal Reflux Disease, Hx Gastrointestinal Bleed, Hx Hiatal Hernia, Hx Irritable Bowel, Hx Jaundice, Hx Ulcer, Hx Urosepsis History: Denies: Hx Benign Prostatic Hyperplasia, Hx Dialysis, Hx Kidney Infection, Hx Kidney Stones, Hx Renal Disease, Other Problems/Disorders Musculoskeletal History: Reports: Hx Arthritis, Hx Back Problems Denies: Hx Bursitis, Hx Tendonitis, Other Musculoskeletal History Sensory History: Denies: Hx Cataracts, Hx Contacts or Glasses, Hx Glaucoma, Hx Vision Problem , Hx Hearing Aid, Hx Hearing Problem Opthamlomology History: Denies: Hx Cataracts, Hx Contacts or Glasses, Hx Glaucoma, Hx Vision Problem Neurological History: Reports: Hx Migraine, Hx Spinal Cord Injury - herniated disc Denies: Hx Dementia, Hx Headaches, Hx Nerve Disease, Hx Seizures, Hx Transient Ischemic Attacks (TIA), Other Neuro Impairments/Disorders Psychiatric History: Reports: Hx Anxiety, Hx Depression, Hx Post Traumatic Stress Disorder, Hx Suicide Attempt - states she has made three attempts; h/o overdose x 2 Denies: Hx Eating Disorder, Hx Panic Disorder, Hx Substance Abuse - Cancer History Cancer Type, Location and Year: 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 Hx Chemotherapy: Yes Hx Radiation Therapy: No - Surgical History Surgery Procedure, Year, and Place: BACK SURGERY X 3 (DISCECTOMY, NO HARDWARE IMPLANTED); GAMMA KNIFE Hx Anesthesia Reactions: No - Immunization History Date of Tetanus Vaccine: UTD Date of Influenza Vaccine: NO Infectious Disease History: No Infectious Disease History: Denies: Hx Clostridium Difficile, Hx Hepatitis, Hx Human Immunodeficiency Virus (HIV), Hx of Known/Suspected MRSA, Hx Shingles, Hx Tuberculosis, Hx Known/ Suspected VRE, Hx Known/Suspected VRSA, Traveled Outside the [place] in Last 30 Days - Family History Known Family History: Negative: Cardiac Disease, Hypertension - Social History Alcohol Use: None Hx Substance Use: No Substance Use Type: Reports: None Substance Use Comment - Amount & Last Used: fent patch Hx Tobacco Use: Yes Smoking Status (MU): Light Every Day Tobacco Smoker Type: Cigarettes Amount Used/How Often: 4-5 cigarettes per day Have You Smoked in the Last Year: Yes Review of Systems Negative: Fever Negative: Chest Pain Negative: Shortness Of Breath Negative: Abdominal Pain, Vomiting, Nausea Positive: dysuria, flank pain, hematuria All Other Systems Reviewed And Are Negative: Yes Physical Exam Triage Information Reviewed: Yes Vital Signs On Initial Exam: Initial Vitals Temp Pulse Resp BP Pulse Ox 97.3 F 112 18 166/86 98 11/13/19 16:19 11/13/19 16:19 11/13/19 16:19 11/13/19 16:19 11/13/19 16:19 Vital Signs Reviewed: Yes Appearance: Positive: Well-Appearing Skin: Positive: Warm, Dry Head/Face: Positive: Normal Head/Face Inspection Eyes: Positive: Normal, Conjunctiva Clear ENT: Positive: Pharynx normal Respiratory/Lung Sounds: Positive: Clear to Auscultation, Breath Sounds Present Cardiovascular: Positive: Normal, RRR Abdomen Description: Positive: Nontender, Soft, CVA Tenderness (R), CVA Tenderness (L) Bowel Sounds: Positive: Present Musculoskeletal: Positive: Normal Neurological: Positive: Normal Psychiatric: Positive: Normal Procedures - Sedation Patient Received Moderate/Deep Sedation with Procedure: No Diagnostics - Vital Signs Vital Signs Temp Pulse Resp BP Pulse Ox 11/13/19 16:19 97.3 F 112 18 166/86 98 - Laboratory Result Diagrams: 11/13/19 17:46 11/13/19 17:46 Lab Statement: Any lab studies that have been ordered have been reviewed, and results considered in the medical decision making process. - CT abd CT Interpretation Completed By: Radiologist Summary of CT Findings: IMPRESSION: There is a 4 mm nonobstructing calculus in the lower pole of left kidney. No ureteral calculi or hydronephrosis seen currently. Status post cholecystectomy. Re-Evaluation - Re-Evaluation First Eval Re-Evaluation Time: 18:35 Comment: wants to leave, does not want to wait for lab work GIGU Course/Dx - Course Course Of Treatment: 44 year old female presents with dysuria for the past two days. She states she's had hematuria that started yesterday that has improved. She states she has not been passing clots. She is on xarelto for history of blood clots. Sheis on chemo for breast cancer with last treatment 3 weeks ago. She admits to flank pain. No nausea or vomiting. No fevers. she denies any chest pain or shortness of breath. Denies abdominal pain. No diarrhea constipation. She was started on Bactrim yesterday. She denies any dizziness. On exam tenderness over the flanks. Nontender abdomen. wbc 12. platelets consistent with previous. h/h stable. inr normal. crp normal. lactic 2.8 but patient is hyperventilating in room. CT shows nonobstructing stone. urine no infection shows hematuria. glucose was 452 gave some insulin and fluids and patient did not want to stay for glucose recheck. will have follow up with urology. may have had a uti that is improving. told follow up with primary about elevated glucose. patient understand and agrees with plan. - Diagnoses Differential Diagnoses - Female: Pyelonephritis, Urinary Tract Infection, Ureteral Calculi Provider Diagnoses: Hematuria, Hyperglycemia - Critical Care Time Critical Care Statement: Critical care time is provided exclusive of any time spent performing procedures. Discharge ED - Sign-Out/Discharge Documenting (check all that apply): Patient Departure - Discharge Plan Condition: Good Disposition: HOME Patient Education Materials: Hematuria (ED) Referrals: Jill Hill MD [Primary Care Provider] - Williams Guillen MD [Medical Doctor] - Additional Instructions: follow up with primary within 5 days follow up with urology continue antibiotic Return to ED if develop any new or worsening symptoms - Billing Disposition and Condition Condition: GOOD Disposition: Home - Attestation Statements Provider Attestation: I was available for consult. This patient was seen by the MARTHA. The patient was not presented to, seen by, or examined by me. Darrius Garcia MD
[2019-11-13 18:03] LABS: ABS Basophils 0.1 10^3/ul (0-0.2); ABS Eosinophils 0.1 10^3/ul (0-0.6); ABS Monocytes 0.9 10^3/ul (0-0.8); Eosinophil % 1.1 %; Hematocrit 41 % (35-47); Hemoglobin 13.1 g/dL (12.0-16.0); Lymphocyte % 8.5 %; Mean Corpuscular HGB Conc 32 g/dL (31-36); Mean Corpuscular Hemoglobin 31 pg (27-31); Mean Corpuscular Volume 99 fL (80-97); Mean Platelet Volume 8.3 fL (7.4-10.4); Platelet Count 49 10^3/uL (150-450); Red Blood Count 4.18 10^6 /uL (3.70-4.87); Red Cell Distribution Width 31 % (10-15); White Blood Count 12.1 10^3/uL (3.5-10.8)
[2019-11-13 18:09] LABS: Urine Appearance Clear; Urine Bilirubin Negative (Negative); Urine Blood 2+ (Negative); Urine Color Yellow; Urine Glucose 3+(>=500 mg/dL) (Negative); Urine Ketones Negative (Negative); Urine Nitrite Negative (Negative); Urine Protein Negative (Negative); Urine Urobilinogen Negative (Negative)
[2019-11-13 18:14] LABS: Activated Partial Thrombo Time 37.4 seconds (26.0-38.0); INR 1.07 (0.82-1.09)
[2019-11-13 18:15] LABS: Urine Bacteria Absent (Absent); Urine Red Blood Cell 3+(>10/hpf) (Absent); Urine White Blood Cell Absent (Absent)
[2019-11-13 18:29] LABS: Polychromasia 1+
[2019-11-13 18:33] LABS: Albumin 3.7 g/dL (3.2-5.2); Albumin/Globulin Ratio 1.3 (1-3); BUN/Creatinine Ratio 24.6 (8-20); C Reactive Protein 5.89 mg/L (<8.01); Calcium 8.6 mg/dL (8.6-10.3); EGFR African American 130.1 (>60); EGFR Non-African American 107.6 (>60); Globulin 2.8 g/dL (2-4); Potassium 3.3 mmol/L (3.5-5.0); Total Bilirubin 0.9 mg/dL (0.2-1.0); Total Protein 6.5 g/dL (6.4-8.9)
[2019-11-13] MEDS ORDERED: Insulin REGULAR(*) 1 UNITS UNIT SUBCUT ONE (18:38)
[2019-11-13 19:00] VITALS: BP 133/86
== END 2019-11-13 19:13 | disposition home or self-care (01) ==
LOC: ED 16:16
DX: R31.9 Hematuria, unspecified (principal); E11.65 Type 2 diabetes mellitus with hyperglycemia; R30.0 Dysuria; I50.9 Heart failure, unspecified; E78.00 Pure hypercholesterolemia, unspecified; F41.9 Anxiety disorder, unspecified; F32.9 Major depressive disorder, single episode, unspecified; F43.10 Post-traumatic stress disorder, unspecified; F17.210 Nicotine dependence, cigarettes, uncomplicated; Z92.21 Personal history of antineoplastic chemotherapy; Z86.718 Personal history of other venous thrombosis and embolism; Z79.01 Long term (current) use of anticoagulants; Z91.040 Latex allergy status; Z90.49 Acquired absence of other specified parts of digestive tract; Z85.3 Personal history of malignant neoplasm of breast
CPT/HCPCS: 36415; 74176; 80053; 81003; 81015; 83605; 85025; 85610; 85730; 86140; 96360; 96361; 99282

== ENCOUNTER 2020-01-09 12:28 | Inpatient (IN) ==
[2020-01-09] MEDS ORDERED: NS 0.9% 1000 ml BAG 1,000 ML IV ONE (12:41)
[2020-01-09 14:14] LABS: Albumin 3.7 g/dL (3.2-5.2); CO2 Carbon Dioxide 20 mmol/L (22-32); Calcium 8.9 mg/dL (8.6-10.3); Chloride 104 mmol/L (101-111); Sodium 135 mmol/L (135-145)
[2020-01-09 14:15] LABS: ABS Lymphocytes 1.3 10^3/ul (1.0-4.8); ABS Nucleated RBC 0.1 10^3/ul; Hematocrit 41 % (35-47); Hemoglobin 13.1 g/dL (12.0-16.0); Lymphocyte % 7.8 %; Mean Corpuscular HGB Conc 32 g/dL (31-36); Mean Corpuscular Hemoglobin 30 pg (27-31); Mean Corpuscular Volume 93 fL (80-97); Nucleated Red Blood Cells % 0.4; Red Blood Count 4.36 10^6 /uL (3.70-4.87); Red Cell Distribution Width 21 % (10-15); White Blood Count 16.2 10^3/uL (3.5-10.8)
[2020-01-09 14:20] LABS: ALT 52 U/L (7-52); Albumin/Globulin Ratio 1.2 (1-3); Alkaline Phosphatase 177 U/L (34-104); BUN/Creatinine Ratio 32.1 (8-20); Blood Urea Nitrogen 18 mg/dL (6-24); EGFR African American 143.6 (>60); EGFR Non-African American 118.7 (>60); Globulin 3.1 g/dL (2-4); Glucose 255 mg/dL (70-100); Total Protein 6.8 g/dL (6.4-8.9); Troponin I 0.01 ng/mL (<0.03)
[2020-01-09 14:38] LABS: Anion Gap 11 mmol/L (2-11)
[2020-01-09 14:52] LABS: Platelet Count Platelets clumped. 10^3/uL (150-450)
[2020-01-09 15:56] LABS: Urine Appearance Cloudy; Urine Bilirubin Negative (Negative); Urine Blood Negative (Negative); Urine Color Yellow; Urine Glucose 1+(50 mg/dL) (Negative); Urine Ketones Trace (Negative); Urine Nitrite Negative (Negative); Urine Protein Negative (Negative); Urine Specific Gravity 1.021 (1.010-1.030); Urine Urobilinogen Negative (Negative)
[2020-01-09] MEDS ORDERED: Vancomycin(*) 1,000 MG in NS 0.9% 250 ml 250 ML IVPB ONE (16:02)
[2020-01-09] MEDS ORDERED: Dextrose 50% Syringe 50 ml 25 GM/50 ML SYRINGE IV PUSH PRN (16:02)
[2020-01-09] MEDS ORDERED: NS 0.9% 1000 ml BAG 1,000 ML IV SCH (16:30)
[2020-01-09] MEDS ORDERED: Ondansetron 4 mg VIAL 2 MG/ML 2 ml VIAL IV PRN (16:32)
[2020-01-09] MEDS ORDERED: cefTRIAXone 1 gm/50 mL NS BAG 1 GM/50 ML BAG IVPB STA (16:54)
[2020-01-09] MEDS ORDERED: Vancomycin per Pharmacy 1 EA NOTE FOLLOW UP SCH (17:00)
[2020-01-09] MEDS ORDERED: cefTRIAXone VIAL 1,000 MG VIAL IVPB SCH (17:00)
[2020-01-09] MEDS ORDERED: Albuterol (2.5 MG) 0.5 % CONC 0.5 ML NEB.SOLN INH ONE (17:35)
[2020-01-09 18:04] LABS: Magnesium 1.9 mg/dL (1.9-2.7); Platelet Count, Citrated 37 10^3/ul (150-450); Potassium Redraw 3.3 mmol/L (3.5-5.0)
[2020-01-09] MEDS: Dexamethasone IV 4 MG/ML VIAL 1 ml VIAL IV SLOW PU SCH ×2 (18:18→21:50)
[2020-01-09] MEDS: Lactulose 30 ml UDC PO SCH ×2 (18:21→21:50)
[2020-01-09] MEDS: fentaNYL PATCH 100 MCG/HR 1 PATCH TRANSDERM SCH (18:23)
[2020-01-09] MEDS ORDERED: Potassium Chloride LIQUID 20 MEQ/15 ML LIQUID PO ONE (18:58)
[2020-01-09] MEDS: Insulin LISPRO 100 units/ml(*) SUBCUT SCH ×2 (19:19→21:51)
[2020-01-09] MEDS: fentaNYL Patch Check Q Shift NOTE FOLLOW UP SCH (19:25)
[2020-01-09] MEDS: cefTRIAXone 1 gm/50 mL NS BAG 1 GM/50 ML BAG IVPB SCH (19:43)
[2020-01-09] MEDS: Mometasone/Formoter 200/5 MDI INH SCH (20:00)
[2020-01-09] MEDS: DULoxetine DR 60 mg CAP PO SCH (21:50)
[2020-01-09] MEDS ORDERED: Dexamethasone IV 4 MG/ML VIAL 1 ml VIAL IV SLOW PU SCH (22:00)
[2020-01-09] MEDS: Azithromycin 500 mg/250 ml NS 500 MG/250 ML BAG IVPB SCH (22:21)
[2020-01-10] MEDS: Vancomycin(*) 1,000 MG in NS 0.9% 250 ml 250 ML IV SCH ×3 (03:46→22:12)
[2020-01-10] MEDS: Dexamethasone IV 4 MG/ML VIAL 1 ml VIAL IV SLOW PU SCH ×3 (05:47→21:42)
[2020-01-10 06:22] LABS: ABS Lymphocytes 0.5 10^3/ul (1.0-4.8); ABS Monocytes 0.3 10^3/ul (0-0.8); Hematocrit 36 % (35-47); Hemoglobin 11.7 g/dL (12.0-16.0); Lymphocyte % 6.8 %; Mean Corpuscular HGB Conc 32 g/dL (31-36); Mean Corpuscular Hemoglobin 30 pg (27-31); Mean Corpuscular Volume 93 fL (80-97); Mean Platelet Volume 8.4 fL (7.4-10.4); Nucleated Red Blood Cells % 0.1; Platelet Count 51 10^3/uL (150-450); Red Blood Count 3.91 10^6 /uL (3.70-4.87); Red Cell Distribution Width 20 % (10-15); White Blood Count 7.6 10^3/uL (3.5-10.8)
[2020-01-10 06:32] LABS: Albumin 3.2 g/dL (3.2-5.2); Albumin/Globulin Ratio 1.1 (1-3); BUN/Creatinine Ratio 37.5 (8-20); Calcium 8.7 mg/dL (8.6-10.3); EGFR African American 171.6 (>60); EGFR Non-African American 141.8 (>60); Globulin 2.8 g/dL (2-4); Potassium 3.5 mmol/L (3.5-5.0); Total Bilirubin 1.2 mg/dL (0.2-1.0)
[2020-01-10] MEDS: fentaNYL Patch Check Q Shift NOTE FOLLOW UP SCH ×2 (07:17→18:53)
[2020-01-10] MEDS: Mometasone/Formoter 200/5 MDI INH SCH ×2 (08:13→20:20)
[2020-01-10] MEDS ORDERED: Rivaroxaban 20 mg TAB (*) PO SCH ×2 (09:00)
[2020-01-10] MEDS: Potassium Chlor 20 meq TAB.ER PO SCH (09:08)
[2020-01-10] MEDS: CMCS: Anastrozole 1 mg TAB (NF) PO SCH (09:08)
[2020-01-10] MEDS: Lactulose 30 ml UDC PO SCH ×3 (09:08→21:02)
[2020-01-10] MEDS: CMCS: Zonisamide 100 mg CAP (NF) PO SCH (09:09)
[2020-01-10] MEDS: BREXPIPRAZOLE 1 MG PO SCH (09:09)
[2020-01-10] MEDS: Insulin LISPRO 100 units/ml(*) SUBCUT SCH ×4 (09:10→21:21)
[2020-01-10] MEDS ORDERED: Perflutren Lipid Microsphere 3 ML VIAL ONE (11:03)
[2020-01-10] MEDS: Nystatin TOP POWDER 15 GM BTL TOPICAL SCH ×2 (13:12→21:21)
[2020-01-10] MEDS: cefTRIAXone 1 gm/50 mL NS BAG 1 GM/50 ML BAG IVPB SCH (17:47)
[2020-01-10] MEDS ORDERED: Vancomycin Trough Check NOTE FOLLOW UP ONE (19:30)
[2020-01-10] MEDS: Azithromycin 500 mg/250 ml NS 500 MG/250 ML BAG IVPB SCH (19:56)
[2020-01-10] MEDS ORDERED: Insulin GLARGINE 100 un/ml (*) 10 ml VIAL SUBCUT SCH (21:00)
[2020-01-10] MEDS: DULoxetine DR 60 mg CAP PO SCH (21:05)
[2020-01-10] MEDS: Vancomycin(*) 1,250 MG IV Q8H IVPB SCH (21:21)
[2020-01-11] MEDS: Vancomycin(*) 1,250 MG IV Q8H IVPB SCH ×3 (04:45→21:20)
[2020-01-11] MEDS: Dexamethasone IV 4 MG/ML VIAL 1 ml VIAL IV SLOW PU SCH ×3 (05:18→21:23)
[2020-01-11] MEDS: fentaNYL Patch Check Q Shift NOTE FOLLOW UP SCH ×2 (07:03→18:57)
[2020-01-11] MEDS: Mometasone/Formoter 200/5 MDI INH SCH ×2 (07:44→19:16)
[2020-01-11] MEDS: Lactulose 30 ml UDC PO SCH ×3 (09:43→21:23)
[2020-01-11] MEDS: Potassium Chlor 20 meq TAB.ER PO SCH (09:44)
[2020-01-11] MEDS: CMCS: Zonisamide 100 mg CAP (NF) PO SCH (09:47)
[2020-01-11] MEDS: CMCS: Anastrozole 1 mg TAB (NF) PO SCH (09:47)
[2020-01-11] MEDS: Insulin LISPRO 100 units/ml(*) SUBCUT SCH ×4 (09:48→23:12)
[2020-01-11] MEDS: Nystatin TOP POWDER 15 GM BTL TOPICAL SCH ×3 (09:48→21:23)
[2020-01-11] MEDS: BREXPIPRAZOLE 1 MG PO SCH (09:57)
[2020-01-11] MEDS: cefTRIAXone 1 gm/50 mL NS BAG 1 GM/50 ML BAG IVPB SCH (17:18)
[2020-01-11] MEDS: Insulin GLARGINE 100 un/ml (*) 10 ml VIAL SUBCUT SCH (19:39)
[2020-01-11] MEDS: Azithromycin 500 mg/250 ml NS 500 MG/250 ML BAG IVPB SCH (19:39)
[2020-01-11] MEDS: DULoxetine DR 60 mg CAP PO SCH (21:22)
[2020-01-12] MEDS: Vancomycin(*) 1,250 MG IV Q8H IVPB SCH ×3 (05:57→23:46)
[2020-01-12] MEDS: Dexamethasone IV 4 MG/ML VIAL 1 ml VIAL IV SLOW PU SCH ×3 (06:04→21:22)
[2020-01-12 06:27] LABS: Activated Partial Thrombo Time 22.1 seconds (26.0-38.0); INR 1.19 (0.82-1.09)
[2020-01-12 06:31] LABS: BUN/Creatinine Ratio 32.7 (8-20); Calcium 8.9 mg/dL (8.6-10.3); EGFR African American 167.6 (>60); EGFR Non-African American 138.5 (>60); Potassium 3.6 mmol/L (3.5-5.0)
[2020-01-12 06:32] LABS: ABS Lymphocytes 0.4 10^3/ul (1.0-4.8); ABS Monocytes 0.3 10^3/ul (0-0.8); Hematocrit 38 % (35-47); Hemoglobin 12.3 g/dL (12.0-16.0); Lymphocyte % 4.1 %; Mean Corpuscular HGB Conc 32 g/dL (31-36); Mean Corpuscular Hemoglobin 30 pg (27-31); Mean Corpuscular Volume 93 fL (80-97); Mean Platelet Volume 7.7 fL (7.4-10.4); Nucleated Red Blood Cells % 0.3; Platelet Count 65 10^3/uL (150-450); Red Blood Count 4.15 10^6 /uL (3.70-4.87); Red Cell Distribution Width 21 % (10-15)
[2020-01-12] MEDS: fentaNYL Patch Check Q Shift NOTE FOLLOW UP SCH ×2 (06:51→19:12)
[2020-01-12] MEDS: BREXPIPRAZOLE 1 MG PO SCH (07:15)
[2020-01-12] MEDS: Potassium Chlor 20 meq TAB.ER PO SCH (07:31)
[2020-01-12] MEDS: Lactulose 30 ml UDC PO SCH ×3 (07:31→21:21)
[2020-01-12] MEDS: Mometasone/Formoter 200/5 MDI INH SCH ×2 (07:32→19:44)
[2020-01-12] MEDS: CMCS: Zonisamide 100 mg CAP (NF) PO SCH (07:33)
[2020-01-12] MEDS: CMCS: Anastrozole 1 mg TAB (NF) PO SCH (07:33)
[2020-01-12] MEDS: Nystatin TOP POWDER 15 GM BTL TOPICAL SCH ×3 (07:39→21:25)
[2020-01-12] MEDS: Insulin LISPRO 100 units/ml(*) SUBCUT SCH ×4 (08:09→21:17)
[2020-01-12] MEDS ORDERED: Gadoteridol (CONTRAST) 279.3 MG/ML 10 ML IV ONE (12:20)
[2020-01-12] MEDS ORDERED: Vancomycin Trough Check NOTE FOLLOW UP ONE (12:30)
[2020-01-12] MEDS: fentaNYL PATCH 100 MCG/HR 1 PATCH TRANSDERM SCH (16:34)
[2020-01-12] MEDS: cefTRIAXone 1 gm/50 mL NS BAG 1 GM/50 ML BAG IVPB SCH (16:57)
[2020-01-12] MEDS ORDERED: fentaNYL PATCH 75 MCG/HR 1 PATCH TRANSDERM SCH (18:00)
[2020-01-12] MEDS ORDERED: Insulin LISPRO 100 units/ml(*) SUBCUT ONE (18:28)
[2020-01-12] MEDS: Insulin GLARGINE 100 un/ml (*) 10 ml VIAL SUBCUT SCH (21:17)
[2020-01-12] MEDS: DULoxetine DR 60 mg CAP PO SCH (21:20)
[2020-01-12] MEDS: Azithromycin 500 mg/250 ml NS 500 MG/250 ML BAG IVPB SCH (22:17)
[2020-01-13 02:47] LABS: Mean Platelet Volume 7.5 fL (7.4-10.4); Platelet Count 59 10^3/uL (150-450)
[2020-01-13] MEDS: Vancomycin(*) 1,250 MG IV Q8H IVPB SCH ×2 (05:13→13:14)
[2020-01-13] MEDS: fentaNYL Patch Check Q Shift NOTE FOLLOW UP SCH (06:56)
[2020-01-13] MEDS: Mometasone/Formoter 200/5 MDI INH SCH (07:46)
[2020-01-13] MEDS: Potassium Chlor 20 meq TAB.ER PO SCH (08:24)
[2020-01-13] MEDS: Lactulose 30 ml UDC PO SCH ×2 (08:25→13:00)
[2020-01-13] MEDS: Nystatin TOP POWDER 15 GM BTL TOPICAL SCH ×2 (08:26→13:14)
[2020-01-13] MEDS: CMCS: Zonisamide 100 mg CAP (NF) PO SCH (08:28)
[2020-01-13] MEDS: CMCS: Anastrozole 1 mg TAB (NF) PO SCH (08:28)
[2020-01-13] MEDS: Insulin LISPRO 100 units/ml(*) SUBCUT SCH ×2 (08:29→13:01)
[2020-01-13] MEDS: Dexamethasone IV 4 MG/ML VIAL 1 ml VIAL IV SLOW PU SCH (08:30)
[2020-01-13] MEDS: BREXPIPRAZOLE 1 MG PO SCH (08:30)
[2020-01-13 09:56] LABS: ABS Basophils 0.1 10^3/ul (0-0.2); ABS Lymphocytes 0.5 10^3/ul (1.0-4.8); ABS Monocytes 0.3 10^3/ul (0-0.8); Hematocrit 37 % (35-47); Hemoglobin 11.9 g/dL (12.0-16.0); Lymphocyte % 3.8 %; Mean Corpuscular HGB Conc 32 g/dL (31-36); Mean Corpuscular Hemoglobin 30 pg (27-31); Mean Corpuscular Volume 93 fL (80-97); Mean Platelet Volume 7.2 fL (7.4-10.4); Platelet Count 62 10^3/uL (150-450); Red Blood Count 3.98 10^6 /uL (3.70-4.87); Red Cell Distribution Width 21 % (10-15); White Blood Count 12.6 10^3/uL (3.5-10.8)
[2020-01-13 12:56] LABS: Mean Platelet Volume 7.4 fL (7.4-10.4); Platelet Count 62 10^3/uL (150-450)
[2020-01-13 14:53] LABS: Body Fluid Source Cerebral Spinal
[2020-01-13 15:05] LABS: CSF Glucose 232 mg/dL (40-70)
[2020-01-13 16:37] VITALS: BP 132/75
== END 2020-01-13 17:15 | disposition home or self-care (01) | DRG 279 ==
LOC: ED 12:28 → MED 16:32
PROVIDERS: ADMIT Hospitalist; ATTEND Internal Medicine

== ENCOUNTER 2020-02-04 06:15 | Inpatient (IN) ==
[2020-02-04] MEDS ORDERED: NS 0.9% 1000 ml BAG 1,000 ML IV ONE ×2 (07:03→09:36)
[2020-02-04 07:26] LABS: ABS Basophils 0.1 10^3/ul (0-0.2); ABS Eosinophils 0.1 10^3/ul (0-0.6); ABS Lymphocytes 1.1 10^3/ul (1.0-4.8); ABS Monocytes 0.6 10^3/ul (0-0.8); ABS Neutrophils 5.9 10^3/ul (1.5-7.7); Eosinophil % 1.4 %; Hematocrit 36 % (35-47); Lymphocyte % 14.4 %; Mean Corpuscular HGB Conc 33 g/dL (31-36); Mean Corpuscular Hemoglobin 31 pg (27-31); Mean Corpuscular Volume 92 fL (80-97); Nucleated Red Blood Cells % 0.5; Platelet Count 56 10^3/uL (150-450); Red Blood Count 3.94 10^6 /uL (3.70-4.87); Red Cell Distribution Width 23 % (10-15); White Blood Count 7.8 10^3/uL (3.5-10.8)
[2020-02-04 07:29] LABS: INR 1.19 (0.82-1.09)
[2020-02-04 07:41] LABS: ALT 146 U/L (7-52); AST 54 U/L (13-39); Albumin 3.6 g/dL (3.2-5.2); Albumin/Globulin Ratio 1.4 (1-3); Alkaline Phosphatase 454 U/L (34-104); BUN/Creatinine Ratio 16.7 (8-20); Blood Urea Nitrogen 9 mg/dL (6-24); CO2 Carbon Dioxide 22 mmol/L (22-32); Calcium 8.6 mg/dL (8.6-10.3); Chloride 107 mmol/L (101-111); EGFR African American 149.8 (>60); EGFR Non-African American 123.8 (>60); Globulin 2.5 g/dL (2-4); Glucose 180 mg/dL (70-100); Sodium 141 mmol/L (135-145); Total Protein 6.1 g/dL (6.4-8.9)
[2020-02-04 07:49] LABS: HCG Pregnancy < 0.60 mIU/mL
[2020-02-04 07:51] LABS: Anion Gap 12 mmol/L (2-11); Potassium 2.4 mmol/L (3.5-5.0)
[2020-02-04] MEDS ORDERED: Magnesium Sulfate 2 gm BAG 2 GM/50 ML BAG IVPB ONE (07:52)
[2020-02-04] MEDS ORDERED: Potassium Chlor 20 meq TAB.ER PO ONE (07:55)
[2020-02-04] MEDS ORDERED: Iodixanol (CONTRAST) 320 MG/ML 100 ML SDV IV ONE (08:25)
[2020-02-04 08:36] LABS: Troponin I 0.05 ng/mL (<0.03)
[2020-02-04] MEDS: KCL 20 MEQ/100 ML IVPREMIX 20 MEQ/100 ML BAG IV SCH ×2 (09:38→11:08)
[2020-02-04 12:03] LABS: Amylase 30 U/L (29-103); Lipase 148 U/L (11.0-82.0)
[2020-02-04 13:10] LABS: Prealbumin 19 mg/dL (18-38)
[2020-02-04 14:21] LABS: Troponin I 0.03 ng/mL (<0.03)
[2020-02-04] MEDS ORDERED: Albuterol HFA INHALER 8 gm MDI INH PRN (14:52)
[2020-02-04] MEDS: fentaNYL PATCH 50 MCG/HR 1 PATCH TRANSDERM SCH (15:39)
[2020-02-04] MEDS: Nystatin TOP POWDER 15 GM BTL TOPICAL SCH ×2 (17:53→21:39)
[2020-02-04 18:26] LABS: Blood Urea Nitrogen 8 mg/dL (6-24); CO2 Carbon Dioxide 22 mmol/L (22-32); Calcium 8.3 mg/dL (8.6-10.3); EGFR African American 200.2 (>60); EGFR Non-African American 165.5 (>60); Glucose 154 mg/dL (70-100); Sodium 144 mmol/L (135-145)
[2020-02-04 18:27] LABS: Troponin I 0.03 ng/mL (<0.03)
[2020-02-04 18:29] LABS: Anion Gap 9 mmol/L (2-11); Chloride 113 mmol/L (101-111); Potassium 2.7 mmol/L (3.5-5.0)
[2020-02-04 18:59] LABS: Urine Appearance Clear; Urine Bilirubin Negative (Negative); Urine Blood Negative (Negative); Urine Color Amber; Urine Glucose Negative (Negative); Urine Ketones Trace (Negative); Urine Nitrite Negative (Negative); Urine Protein Negative (Negative); Urine Specific Gravity 1.023 (1.010-1.030); Urine Urobilinogen Negative (Negative)
[2020-02-04 19:03] LABS: Urine Bacteria Absent (Absent); Urine Red Blood Cell Trace(0-2/hpf) (Absent); Urine Squamous Epithelial Cell Present (Absent); Urine Transitional Epithelial Present (Absent); Urine White Blood Cell Trace(0-5/hpf) (Absent)
[2020-02-04] MEDS: Mometasone/Formoter 200/5 MDI INH SCH (19:42)
[2020-02-04] MEDS: fentaNYL Patch Check Q Shift NOTE FOLLOW UP SCH (20:18)
[2020-02-04] MEDS: DULoxetine DR 60 mg CAP PO SCH (21:37)
[2020-02-04] MEDS: Insulin GLARGINE 100 un/ml 10 ml VIAL SUBCUT SCH (21:37)
[2020-02-05 06:19] LABS: ABS Eosinophils 0.1 10^3/ul (0-0.6); ABS Lymphocytes 0.9 10^3/ul (1.0-4.8); ABS Monocytes 0.6 10^3/ul (0-0.8); ABS Neutrophils 4.9 10^3/ul (1.5-7.7); Eosinophil % 1.3 %; Hematocrit 32 % (35-47); Hemoglobin 10.8 g/dL (12.0-16.0); Lymphocyte % 13.5 %; Mean Corpuscular HGB Conc 34 g/dL (31-36); Mean Corpuscular Hemoglobin 31 pg (27-31); Mean Corpuscular Volume 91 fL (80-97); Mean Platelet Volume 8.8 fL (7.4-10.4); Nucleated Red Blood Cells % 0.2; Platelet Count 51 10^3/uL (150-450); Red Blood Count 3.52 10^6 /uL (3.70-4.87); Red Cell Distribution Width 23 % (10-15); White Blood Count 6.5 10^3/uL (3.5-10.8)
[2020-02-05 06:20] LABS: Albumin 3.2 g/dL (3.2-5.2); Albumin/Globulin Ratio 1.5 (1-3); BUN/Creatinine Ratio 18.6 (8-20); Calcium 8.5 mg/dL (8.6-10.3); EGFR African American 194.8 (>60); Globulin 2.2 g/dL (2-4); Magnesium 2.2 mg/dL (1.9-2.7); Total Bilirubin 4.8 mg/dL (0.2-1.0); Total Protein 5.4 g/dL (6.4-8.9)
[2020-02-05 06:22] LABS: Potassium 2.5 mmol/L (3.5-5.0)
[2020-02-05] MEDS: fentaNYL Patch Check Q Shift NOTE FOLLOW UP SCH ×2 (07:18→19:31)
[2020-02-05] MEDS: Mometasone/Formoter 200/5 MDI INH SCH ×2 (07:39→19:30)
[2020-02-05] MEDS: Potassium Chloride LIQUID 20 MEQ/15 ML LIQUID PO SCH ×2 (08:15→11:41)
[2020-02-05] MEDS: CMCS:Zonisamide 100 mg CAP (NF) PO SCH (08:41)
[2020-02-05] MEDS: Nystatin TOP POWDER 15 GM BTL TOPICAL SCH ×3 (08:43→20:38)
[2020-02-05 10:51] LABS: Acetaminophen < 15 mcg/mL
[2020-02-05] MEDS: KCL 20 MEQ/100 ML IVPREMIX 20 MEQ/100 ML BAG IV SCH ×2 (11:41→14:18)
[2020-02-05 13:38] LABS: Hepatitis B Surface Antigen Nonreactive (Nonreactive)
[2020-02-05 13:43] LABS: Hepatitis A Ab IgM Negative (Negative); Hepatitis B Core IgM Nonreactive (Nonreactive)
[2020-02-05 13:55] LABS: Hepatitis C Antibody Negative (Negative)
[2020-02-05] MEDS: Insulin GLARGINE 100 un/ml 10 ml VIAL SUBCUT SCH (20:37)
[2020-02-05] MEDS: DULoxetine DR 60 mg CAP PO SCH (20:37)
[2020-02-05] MEDS: Lactulose 30 ml UDC PO SCH (22:14)
[2020-02-06 05:50] LABS: INR 1.23 (0.82-1.09)
[2020-02-06 06:00] LABS: Albumin 3.1 g/dL (3.2-5.2); Albumin/Globulin Ratio 1.5 (1-3); BUN/Creatinine Ratio 17.8 (8-20); Calcium 8.4 mg/dL (8.6-10.3); EGFR African American 184.9 (>60); EGFR Non-African American 152.8 (>60); Globulin 2.1 g/dL (2-4); Potassium 3.1 mmol/L (3.5-5.0); Total Bilirubin 4.8 mg/dL (0.2-1.0); Total Protein 5.2 g/dL (6.4-8.9)
[2020-02-06 06:02] LABS: ABS Eosinophils 0.1 10^3/ul (0-0.6); ABS Lymphocytes 0.8 10^3/ul (1.0-4.8); ABS Monocytes 0.6 10^3/ul (0-0.8); ABS Neutrophils 4.5 10^3/ul (1.5-7.7); Eosinophil % 1.4 %; Hematocrit 32 % (35-47); Hemoglobin 10.4 g/dL (12.0-16.0); Lymphocyte % 13.1 %; Mean Corpuscular HGB Conc 33 g/dL (31-36); Mean Corpuscular Hemoglobin 31 pg (27-31); Mean Corpuscular Volume 92 fL (80-97); Mean Platelet Volume 8.6 fL (7.4-10.4); Nucleated Red Blood Cells % 0.3; Platelet Count 50 10^3/uL (150-450); Red Blood Count 3.41 10^6 /uL (3.70-4.87); Red Cell Distribution Width 23 % (10-15)
[2020-02-06] MEDS: fentaNYL Patch Check Q Shift NOTE FOLLOW UP SCH ×2 (06:42→18:42)
[2020-02-06] MEDS: CMCS:Zonisamide 100 mg CAP (NF) PO SCH (08:41)
[2020-02-06] MEDS: Lactulose 30 ml UDC PO SCH ×2 (08:41→20:13)
[2020-02-06] MEDS: Nystatin TOP POWDER 15 GM BTL TOPICAL SCH ×3 (08:43→20:19)
[2020-02-06] MEDS: Potassium Chlor 20 meq TAB.ER PO SCH ×3 (10:17→20:13)
[2020-02-06] MEDS: Mometasone/Formoter 200/5 MDI INH SCH ×2 (12:50→19:38)
[2020-02-06] MEDS: DULoxetine DR 60 mg CAP PO SCH (20:13)
[2020-02-06] MEDS: Insulin GLARGINE 100 un/ml 10 ml VIAL SUBCUT SCH (20:13)
[2020-02-07 06:11] LABS: ABS Basophils 0.1 10^3/ul (0-0.2); ABS Eosinophils 0.1 10^3/ul (0-0.6); ABS Lymphocytes 0.9 10^3/ul (1.0-4.8); ABS Monocytes 0.6 10^3/ul (0-0.8); ABS Neutrophils 3.7 10^3/ul (1.5-7.7); Eosinophil % 1.2 %; Hematocrit 32 % (35-47); Hemoglobin 10.5 g/dL (12.0-16.0); Lymphocyte % 17.6 %; Mean Corpuscular HGB Conc 33 g/dL (31-36); Mean Corpuscular Hemoglobin 31 pg (27-31); Mean Corpuscular Volume 92 fL (80-97); Mean Platelet Volume 8.4 fL (7.4-10.4); Nucleated Red Blood Cells % 0.1; Platelet Count 46 10^3/uL (150-450); Red Blood Count 3.44 10^6 /uL (3.70-4.87); Red Cell Distribution Width 23 % (10-15); White Blood Count 5.4 10^3/uL (3.5-10.8)
[2020-02-07 06:21] LABS: Albumin 3.2 g/dL (3.2-5.2); Calcium 8.2 mg/dL (8.6-10.3); EGFR African American 239.2 (>60); EGFR Non-African American 197.7 (>60); Potassium 3.3 mmol/L (3.5-5.0); Total Protein 5.4 g/dL (6.4-8.9)
[2020-02-07 06:22] LABS: Albumin/Globulin Ratio 1.5 (1-3); Globulin 2.2 g/dL (2-4); Total Bilirubin 4.4 mg/dL (0.2-1.0)
[2020-02-07] MEDS: fentaNYL Patch Check Q Shift NOTE FOLLOW UP SCH ×2 (07:25→18:36)
[2020-02-07] MEDS: Mometasone/Formoter 200/5 MDI INH SCH ×2 (08:21→19:29)
[2020-02-07] MEDS: CMCS:Zonisamide 100 mg CAP (NF) PO SCH (09:31)
[2020-02-07] MEDS: Potassium Chlor 20 meq TAB.ER PO SCH ×3 (09:31→20:27)
[2020-02-07] MEDS: Lactulose 30 ml UDC PO SCH ×2 (09:32→20:26)
[2020-02-07] MEDS: Nystatin TOP POWDER 15 GM BTL TOPICAL SCH ×3 (09:33→20:26)
[2020-02-07] MEDS ORDERED: Dextrose 50% Syringe 50 ml 25 GM/50 ML SYRINGE IV PUSH PRN (10:54)
[2020-02-07] MEDS: fentaNYL PATCH 50 MCG/HR 1 PATCH TRANSDERM SCH (12:21)
[2020-02-07] MEDS: DULoxetine DR 60 mg CAP PO SCH (20:26)
[2020-02-07] MEDS: Insulin GLARGINE 100 un/ml 10 ml VIAL SUBCUT SCH (20:27)
[2020-02-08] MEDS: fentaNYL Patch Check Q Shift NOTE FOLLOW UP SCH (07:13)
[2020-02-08] MEDS: CMCS:Zonisamide 100 mg CAP (NF) PO SCH (08:08)
[2020-02-08] MEDS: Mometasone/Formoter 200/5 MDI INH SCH ×2 (08:08→20:03)
[2020-02-08] MEDS: Lactulose 30 ml UDC PO SCH ×2 (08:08→21:21)
[2020-02-08] MEDS: Potassium Chlor 20 meq TAB.ER PO SCH ×3 (09:06→21:21)
[2020-02-08] MEDS: Nystatin TOP POWDER 15 GM BTL TOPICAL SCH ×3 (09:06→21:48)
[2020-02-08] MEDS: DULoxetine DR 20 mg CAP PO SCH (21:21)
[2020-02-08] MEDS: Insulin GLARGINE 100 un/ml 10 ml VIAL SUBCUT SCH (21:21)
[2020-02-09] MEDS: fentaNYL Patch Check Q Shift NOTE FOLLOW UP SCH ×3 (04:10→18:41)
[2020-02-09 05:38] LABS: Albumin/Globulin Ratio 1.3 (1-3); BUN/Creatinine Ratio 21.9 (8-20); Calcium 8.2 mg/dL (8.6-10.3); EGFR Non-African American 226.5 (>60); Globulin 2.3 g/dL (2-4); Potassium 3.3 mmol/L (3.5-5.0); Total Bilirubin 3.7 mg/dL (0.2-1.0); Total Protein 5.3 g/dL (6.4-8.9)
[2020-02-09] MEDS ORDERED: KCL 20 MEQ/100 ML IVPREMIX 20 MEQ/100 ML BAG IV ONE (06:56)
[2020-02-09] MEDS ORDERED: Cefepime ADVAN 1 GM in NS 0.9% 50 ML 50 ML IVPB SCH (07:00)
[2020-02-09] MEDS: Mometasone/Formoter 200/5 MDI INH SCH ×2 (07:54→19:38)
[2020-02-09] MEDS: Lactulose 30 ml UDC PO SCH ×2 (07:57→20:49)
[2020-02-09] MEDS: Potassium Chlor 20 meq TAB.ER PO SCH ×3 (07:57→20:48)
[2020-02-09] MEDS: Nystatin TOP POWDER 15 GM BTL TOPICAL SCH ×3 (08:48→20:49)
[2020-02-09] MEDS: CMCS:Zonisamide 100 mg CAP (NF) PO SCH (08:50)
[2020-02-09] MEDS: Cefepime 1 GM in Dextrose 1 GM/50 ML BAG IV SCH ×2 (10:42→20:47)
[2020-02-09] MEDS: DULoxetine DR 20 mg CAP PO SCH (20:48)
[2020-02-09] MEDS ORDERED: Insulin GLARGINE 100 un/ml 10 ml VIAL SUBCUT SCH (21:00)
[2020-02-10 06:50] LABS: ABS Lymphocytes 0.8 10^3/ul (1.0-4.8); ABS Monocytes 0.5 10^3/ul (0-0.8); ABS Neutrophils 4.4 10^3/ul (1.5-7.7); Albumin 2.9 g/dL (3.2-5.2); Albumin/Globulin Ratio 1.3 (1-3); BUN/Creatinine Ratio 17.4 (8-20); Calcium 8.1 mg/dL (8.6-10.3); EGFR African American 180.3 (>60); Eosinophil % 0.7 %; Globulin 2.3 g/dL (2-4); Hematocrit 29 % (35-47); Hemoglobin 9.6 g/dL (12.0-16.0); Lymphocyte % 13.3 %; Mean Corpuscular HGB Conc 33 g/dL (31-36); Mean Corpuscular Hemoglobin 31 pg (27-31); Mean Corpuscular Volume 93 fL (80-97); Mean Platelet Volume 8.8 fL (7.4-10.4); Nucleated Red Blood Cells % 0.4; Platelet Count 47 10^3/uL (150-450); Potassium 3.3 mmol/L (3.5-5.0); Red Blood Count 3.15 10^6 /uL (3.70-4.87); Red Cell Distribution Width 25 % (10-15); Total Bilirubin 3.3 mg/dL (0.2-1.0); Total Protein 5.2 g/dL (6.4-8.9); White Blood Count 5.7 10^3/uL (3.5-10.8)
[2020-02-10] MEDS: fentaNYL Patch Check Q Shift NOTE FOLLOW UP SCH (07:04)
[2020-02-10] MEDS: Mometasone/Formoter 200/5 MDI INH SCH (07:39)
[2020-02-10] MEDS: Cefepime 1 GM in Dextrose 1 GM/50 ML BAG IV SCH (08:26)
[2020-02-10] MEDS: Lactulose 30 ml UDC PO SCH (08:27)
[2020-02-10] MEDS: Potassium Chlor 20 meq TAB.ER PO SCH ×2 (08:27→13:29)
[2020-02-10] MEDS: Nystatin TOP POWDER 15 GM BTL TOPICAL SCH ×2 (08:28→13:29)
[2020-02-10] MEDS: CMCS:Zonisamide 100 mg CAP (NF) PO SCH (08:29)
[2020-02-10] MEDS ORDERED: KCL 20 MEQ/100 ML IVPREMIX 20 MEQ/100 ML BAG IV ONE (10:15)
[2020-02-10] MEDS: fentaNYL PATCH 50 MCG/HR 1 PATCH TRANSDERM SCH (12:02)
[2020-02-10 12:35] VITALS: BP 146/79
== END 2020-02-10 15:55 | disposition home health service (06) ==
LOC: ED 07:00 → MEDTELE 12:00
PROVIDERS: ADMIT Internal Medicine Hematology & Oncology; ATTEND Internal Medicine Hematology & Oncology

== ENCOUNTER 2020-10-03 11:36 | Inpatient (IN) ==
[2020-10-03 12:08] LABS: ABS Basophils 0.1 10^3/ul (0-0.2); ABS Eosinophils 0.2 10^3/ul (0-0.6); ABS Lymphocytes 1.7 10^3/ul (1.0-4.8); ABS Monocytes 0.7 10^3/ul (0-0.8); ABS Neutrophils 7.3 10^3/ul (1.5-7.7); Eosinophil % 2.3 %; Hematocrit 34 % (35-47); Hemoglobin 10.4 g/dL (12.0-16.0); Mean Corpuscular HGB Conc 31 g/dL (31-36); Mean Corpuscular Hemoglobin 22 pg (27-31); Mean Corpuscular Volume 71 fL (80-97); Mean Platelet Volume 8.4 fL (7.4-10.4); Platelet Count 126 10^3/uL (150-450); Red Blood Count 4.76 10^6 /uL (3.70-4.87); Red Cell Distribution Width 21 % (10-15); White Blood Count 10.1 10^3/uL (3.5-10.8)
[2020-10-03 12:22] LABS: Troponin I 0.01 ng/mL (<0.03)
[2020-10-03 12:35] LABS: Acetaminophen < 15 mcg/mL; Alcohol, S < 10 mg/dL (<10); Salicylate < 2.50 mg/dL (<30)
[2020-10-03 12:36] LABS: ALT 10 U/L (7-52); AST 21 U/L (13-39); Albumin/Globulin Ratio 1.5 (1-3); Alkaline Phosphatase 150 U/L (34-104); Anion Gap 5 mmol/L (2-11); BUN/Creatinine Ratio 11.5 (8-20); Blood Urea Nitrogen 6 mg/dL (6-24); CO2 Carbon Dioxide 30 mmol/L (22-32); Calcium 9.3 mg/dL (8.6-10.3); Chloride 104 mmol/L (101-111); EGFR African American 155.7 (>60); EGFR Non-African American 128.7 (>60); Globulin 2.6 g/dL (2-4); Glucose 108 mg/dL (70-100); Magnesium 1.9 mg/dL (1.9-2.7); Sodium 139 mmol/L (135-145); Total Protein 6.6 g/dL (6.4-8.9)
[2020-10-03 13:10] LABS: Urine Appearance Clear; Urine Bilirubin Negative (Negative); Urine Blood Negative (Negative); Urine Color Yellow; Urine Glucose Negative (Negative); Urine Ketones Negative (Negative); Urine Nitrite Negative (Negative); Urine Protein Negative (Negative); Urine Specific Gravity 1.005 (1.010-1.030); Urine Urobilinogen Negative (Negative)
[2020-10-03 13:31] LABS: Urine Benzodiazepine Screen Presumptive Positive (None Detect); Urine Cannabinoids Screen Presumptive Positive (None Detect); Urine Opiates Screen Presumptive Positive (None Detect)
[2020-10-03] MEDS ORDERED: Ondansetron 4 mg VIAL 2 MG/ML 2 ml VIAL IV PRN (16:05)
[2020-10-03] MEDS: fentaNYL Patch Check Q Shift NOTE FOLLOW UP SCH (19:27)
[2020-10-03] MEDS: CARISOPRODOL 250 MG PO SCH ×2 (19:36→20:03)
[2020-10-03] MEDS: NS 0.9% 1000 ml BAG 1,000 ML IV SCH (19:39)
[2020-10-03] MEDS ORDERED: fentaNYL PATCH 25 MCG/HR 1 PATCH TRANSDERM SCH (20:00)
[2020-10-04 05:59] LABS: ABS Basophils 0.1 10^3/ul (0-0.2); ABS Lymphocytes 0.8 10^3/ul (1.0-4.8); ABS Monocytes 0.2 10^3/ul (0-0.8); ABS Neutrophils 7.1 10^3/ul (1.5-7.7); Eosinophil % 0.1 %; Hematocrit 34 % (35-47); Hemoglobin 10.4 g/dL (12.0-16.0); Lymphocyte % 9.7 %; Mean Corpuscular HGB Conc 31 g/dL (31-36); Mean Corpuscular Hemoglobin 22 pg (27-31); Mean Corpuscular Volume 72 fL (80-97); Mean Platelet Volume 8.1 fL (7.4-10.4); Platelet Count 128 10^3/uL (150-450); Red Blood Count 4.73 10^6 /uL (3.70-4.87); Red Cell Distribution Width 21 % (10-15); White Blood Count 8.1 10^3/uL (3.5-10.8)
[2020-10-04 06:15] LABS: Albumin 3.9 g/dL (3.2-5.2); Albumin/Globulin Ratio 1.4 (1-3); BUN/Creatinine Ratio 22.7 (8-20); Calcium 9.1 mg/dL (8.6-10.3); EGFR African American 188.8 (>60); EGFR Non-African American 156.1 (>60); Globulin 2.7 g/dL (2-4); Potassium 4.1 mmol/L (3.5-5.0); Total Protein 6.6 g/dL (6.4-8.9)
[2020-10-04] MEDS: fentaNYL Patch Check Q Shift NOTE FOLLOW UP SCH ×2 (06:53→18:32)
[2020-10-04] MEDS ORDERED: Tiotropium Brom/Olodaterol MDI INH SCH (09:00)
[2020-10-04] MEDS ORDERED: Insulin GLARGINE 100 un/ml 10 ml VIAL SUBCUT SCH (09:00)
[2020-10-04] MEDS ORDERED: Potassium Chlor 10 meq TAB PO SCH (09:00)
[2020-10-04] MEDS ORDERED: CMC:Anastrozole 1 mg TAB (NF) PO SCH (09:00)
[2020-10-04] MEDS: NS 0.9% 1000 ml BAG 1,000 ML IV SCH (09:07)
[2020-10-04] MEDS ORDERED: Nicotine PATCH 21 MG/24 HR PATCH TRANSDERM SCH (10:00)
[2020-10-04] MEDS ORDERED: Gadoteridol (CONTRAST) 279.3 MG/ML 10 ML IV ONE (17:59)
[2020-10-04 18:09] VITALS: BP 128/64
== END 2020-10-04 17:45 | disposition home or self-care (01) | DRG 812 ==
LOC: ED 11:36 → MEDTELE 15:51
PROVIDERS: ADMIT Internal Medicine; ATTEND Internal Medicine Hematology & Oncology

== ENCOUNTER 2021-02-17 05:12 | Inpatient (IN) ==
[~2021-02-17 05:12] MED LIST changes: +Bacitracin OINTMENT TUBE TOPICAL SCH; -Dexamethasone IV* 4 MG/ML 1 ML (4 MG) IV SLOW PU ONE; +Gelfoam Sponge SIZE 100 SPONGE TOPICAL SCH; -HYDROmorphone TAB* 4 MG ONE; -HYDROmorphone TAB* 4 MG PO ONE; -Ketorolac INJ* 30 MG/ML 1 ML VIAL IV PUSH ONE; -Magnesium Sulfate 2 GM IV* 2 GM/50 ML BAG IVPB ONE; -Metoclopramide IV* 5 MG/ML 2 ML VIAL IV SLOW PU ONE; +Thrombin 5,000 UNITS 1 APPLIC KIT - topical use - TOPICAL SCH; +ceFAZolin VIAL VIAL IVPB SCH; -diPHENhydraMINE IV* 50 MG/ML 1 ml VIAL (BENADRYL) SLOW PUSH ONE; -oxyCODONE/Acetamin 5/325 MG* TAB PO ONE
[2021-02-17] MEDS ORDERED: Buffered Lidocaine 1% SYRIN 1 ml INTRADERM ONE (06:00)
[2021-02-17] MEDS ORDERED: Famotidine IV 10 MG/ML 2 ml VIAL (20 mg) IV ONE (06:00)
[2021-02-17] MEDS ORDERED: Lactated Ringers 1000 ml BAG 1,000 ML IV SCH (06:00)
[2021-02-17] MEDS ORDERED: Famotidine IV 10 MG/ML 2 ml VIAL (20 mg) ONE (06:51)
[2021-02-17] MEDS ORDERED: ceFAZolin 2 GM in NS PREMIX 2 GM/100 ML BAG IVPB ONE (06:51)
[2021-02-17 09:31] LABS: Mean Platelet Volume 8.4 fL (7.4-10.4); Platelet Count 63 10^3/uL (150-450)
[2021-02-17 13:16] LABS: Mean Platelet Volume 8.2 fL (7.4-10.4); Platelet Count 66 10^3/uL (150-450)
[2021-02-17] MEDS ORDERED: Senna TAB 8.6 mg TAB PO PRN (14:30)
[2021-02-17] MEDS ORDERED: Albuterol HFA INHALER 8 gm MDI INH PRN (14:30)
[2021-02-17] MEDS: fentaNYL PATCH 75 MCG/HR 1 PATCH TRANSDERM SCH (15:03)
[2021-02-17 15:22] LABS: ABS Lymphocytes 0.8 10^3/ul (1.0-4.8); ABS Monocytes 0.3 10^3/ul (0-0.8); ABS Neutrophils 7.2 10^3/ul (1.5-7.7); Eosinophil % 0.2 %; Hematocrit 31 % (35-47); Hemoglobin 9.8 g/dL (12.0-16.0); Mean Corpuscular HGB Conc 31 g/dL (31-36); Mean Corpuscular Hemoglobin 23 pg (27-31); Mean Corpuscular Volume 73 fL (80-97); Mean Platelet Volume 8.6 fL (7.4-10.4); Nucleated Red Blood Cells % 0.1; Platelet Count 77 10^3/uL (150-450); Red Blood Count 4.31 10^6 /uL (3.70-4.87); Red Cell Distribution Width 23 % (10-15); White Blood Count 8.4 10^3/uL (3.5-10.8)
[2021-02-17] MEDS: Nicotine PATCH 21 MG/24 HR PATCH TRANSDERM SCH (15:40)
[2021-02-17] MEDS: fentaNYL Patch Check Q Shift NOTE FOLLOW UP SCH (19:07)
[2021-02-18 06:03] LABS: Albumin 3.6 g/dL (3.2-5.2); Albumin/Globulin Ratio 2.1 (1-3); EGFR African American 188.8 (>60); EGFR Non-African American 156.1 (>60); Globulin 1.7 g/dL (2-4); Magnesium 2.2 mg/dL (1.9-2.7); Potassium 3.8 mmol/L (3.5-5.0); Total Bilirubin 1.4 mg/dL (0.2-1.0); Total Protein 5.3 g/dL (6.4-8.9)
[2021-02-18] MEDS: fentaNYL Patch Check Q Shift NOTE FOLLOW UP SCH ×2 (07:02→18:50)
[2021-02-18] MEDS ORDERED: Dextrose 50% Syringe 50 ml 25 GM/50 ML SYRINGE IV PUSH PRN (07:40)
[2021-02-18] MEDS: Tiotropium Brom/Olodaterol MDI INH SCH (08:27)
[2021-02-18] MEDS: Nicotine PATCH 21 MG/24 HR PATCH TRANSDERM SCH (08:56)
[2021-02-18] MEDS: Potassium Chlor 10 meq TAB PO SCH (08:57)
[2021-02-18] MEDS: DULoxetine DR 60 mg CAP PO SCH (08:57)
[2021-02-18] MEDS ORDERED: Insulin GLARGINE 100 un/ml 10 ml VIAL SUBCUT SCH (09:00)
[2021-02-18] MEDS: Insulin GLARGINE 100 un/ml 10 ml VIAL SUBCUT SCH (09:07)
[2021-02-18] MEDS ORDERED: diPHENhydraMINE IV 50 MG/ML 1 ml VIAL (BENADRYL) SLOW PUSH ONE (10:30)
[2021-02-18] MEDS ORDERED: [UNRECOGNIZED DRUG - OTHER] IV ONE (11:00)
[2021-02-18] MEDS ORDERED: PRIVIGEN IV ONE (11:00)
[2021-02-18] MEDS ORDERED: IMMUNE GLOB IV ONE (11:00)
[2021-02-18] MEDS: Ondansetron ODT 4 mg TAB 4 MG TAB PO PRN ×2 (12:01→21:50)
[2021-02-18] MEDS: BREXPIPRAZOLE 2 MG PO SCH (13:07)
[2021-02-18] MEDS: Cholecalciferol (VIT D3) 1,000 unit TAB PO SCH (13:07)
[2021-02-19 06:16] LABS: ABS Lymphocytes 0.5 10^3/ul (1.0-4.8); ABS Monocytes 0.3 10^3/ul (0-0.8); ABS Neutrophils 4.6 10^3/ul (1.5-7.7); Eosinophil % 0.1 %; Hematocrit 32 % (35-47); Hemoglobin 9.7 g/dL (12.0-16.0); Mean Corpuscular HGB Conc 31 g/dL (31-36); Mean Corpuscular Hemoglobin 23 pg (27-31); Mean Corpuscular Volume 74 fL (80-97); Mean Platelet Volume 8.1 fL (7.4-10.4); Nucleated Red Blood Cells % 0.3; Platelet Count 83 10^3/uL (150-450); Red Blood Count 4.28 10^6 /uL (3.70-4.87); Red Cell Distribution Width 23 % (10-15); White Blood Count 5.4 10^3/uL (3.5-10.8)
[2021-02-19 06:27] LABS: Calcium 7.8 mg/dL (8.6-10.3); EGFR Non-African American 144.6 (>60)
[2021-02-19] MEDS: fentaNYL Patch Check Q Shift NOTE FOLLOW UP SCH ×2 (06:53→18:56)
[2021-02-19] MEDS: Nicotine PATCH 21 MG/24 HR PATCH TRANSDERM SCH (07:50)
[2021-02-19] MEDS: Tiotropium Brom/Olodaterol MDI INH SCH (08:11)
[2021-02-19] MEDS: Insulin GLARGINE 100 un/ml 10 ml VIAL SUBCUT SCH (08:49)
[2021-02-19] MEDS: DULoxetine DR 60 mg CAP PO SCH (08:51)
[2021-02-19] MEDS: Potassium Chlor 10 meq TAB PO SCH (08:51)
[2021-02-19] MEDS: Cholecalciferol (VIT D3) 1,000 unit TAB PO SCH (12:38)
[2021-02-19] MEDS: BREXPIPRAZOLE 2 MG PO SCH (12:38)
[2021-02-19 17:31] LABS: Mean Platelet Volume 8.1 fL (7.4-10.4); Platelet Count 82 10^3/uL (150-450)
[2021-02-19 17:59] LABS: Activated Partial Thrombo Time 28.4 seconds (26.0-38.0); INR 1.48 (0.86-1.15)
[2021-02-19 21:48] LABS: Mean Platelet Volume 8.1 fL (7.4-10.4); Platelet Count 86 10^3/uL (150-450)
[2021-02-20 05:12] LABS: Mean Platelet Volume 8.3 fL (7.4-10.4); Platelet Count 88 10^3/uL (150-450)
[2021-02-20] MEDS ORDERED: Midazolam 2 mg/2 ml VIAL 1 mg/ml 2 ml VIAL (2 mg) ONE (06:41)
[2021-02-20] MEDS ORDERED: Rocuronium 50 mg VIAL 10 mg/ml 5 ml VIAL (50 mg) ONE ×2 (06:41→08:43)
[2021-02-20] MEDS ORDERED: fentaNYL 250 mcg/5 ml 50 MCG/ML 5 ml VIAL (250 MCG) ONE (06:41)
[2021-02-20] MEDS ORDERED: Lidocaine 2% PF 5 ML VIAL ONE (06:42)
[2021-02-20] MEDS ORDERED: Propofol 10 MG/ML 20 ML BTL ONE (06:42)
[2021-02-20] MEDS ORDERED: Phenylephrine 40 mcg/mL 10mL (400mcg) SYRINGE ONE (06:42)
[2021-02-20] MEDS ORDERED: ceFAZolin 2 GM in NS PREMIX 2 GM/100 ML BAG IVPB ONE ×2 (06:55→07:30)
[2021-02-20] MEDS ORDERED: Bacitracin OINTMENT TUBE ONE (07:00)
[2021-02-20] MEDS ORDERED: Bupivacaine 0.25% EPI 200,000 30 ML SDV ONE (07:00)
[2021-02-20] MEDS ORDERED: ceFAZolin VIAL VIAL ONE (07:00)
[2021-02-20] MEDS ORDERED: Thrombin 5,000 UNITS 1 APPLIC KIT - topical use - TOPICAL ONE (07:00)
[2021-02-20] MEDS ORDERED: Gelfoam Sponge SIZE 100 SPONGE ONE (07:01)
[2021-02-20] MEDS: fentaNYL Patch Check Q Shift NOTE FOLLOW UP SCH (07:03)
[2021-02-20] MEDS ORDERED: Buffered Lidocaine 1% SYRIN 1 ml INTRADERM ONE (07:15)
[2021-02-20] MEDS ORDERED: Famotidine IV 10 MG/ML 2 ml VIAL (20 mg) IV ONE (07:35)
[2021-02-20] MEDS ORDERED: Famotidine IV 10 MG/ML 2 ml VIAL (20 mg) ONE (07:49)
[2021-02-20] MEDS: Tiotropium Brom/Olodaterol MDI INH SCH (07:57)
[2021-02-20] MEDS ORDERED: Dexamethasone IV 4 MG/ML VIAL 1 ml VIAL ONE (08:26)
[2021-02-20] MEDS ORDERED: Sugammadex 500 MG/5 ML 5 ml VIAL IV PUSH ONE (08:48)
[2021-02-20] MEDS ORDERED: Ondansetron 4 mg VIAL 2 MG/ML 2 ml VIAL ONE (08:48)
[2021-02-20] MEDS ORDERED: Naloxone 0.4 mg VIAL 0.4 mg/ml 1 ml VIAL IV PRN (08:50)
[2021-02-20] MEDS ORDERED: HYDROmorphone 1 MG/1 ML SYRINGE IV PRN (08:50)
[2021-02-20] MEDS ORDERED: Acetaminophen IV 1 GM/100ML 100 ML IV PRN (08:50)
[2021-02-20] MEDS ORDERED: fentaNYL 100 mcg/2 ml 50 MCG/ML VIAL IV PRN (08:50)
[2021-02-20] MEDS ORDERED: Ondansetron 4 mg VIAL 2 MG/ML 2 ml VIAL IV PRN (08:50)
[2021-02-20] MEDS ORDERED: Insulin GLARGINE 100 un/ml 10 ml VIAL SUBCUT SCH (09:00)
[2021-02-20 10:01] LABS: Body Fluid Source Cerebral Spinal
[2021-02-20] MEDS ORDERED: NS 0.9% 1000 ml BAG 1,000 ML IV SCH (10:30)
[2021-02-20 10:42] LABS: CSF Glucose 73 mg/dL (40-70)
[2021-02-20] MEDS ORDERED: ceFAZolin 2 GM in NS PREMIX 2 GM/100 ML BAG IVPB SCH ×2 (11:00→16:30)
[2021-02-20] MEDS ORDERED: Acetaminophen IV 1 GM/100ML 100 ML IV SCH (11:30)
[2021-02-20 11:58] LABS: Body Fluid Appearance Cloudy; Body Fluid Color Pink
[2021-02-20 11:59] LABS: Body Fluid WBC 1 /mcL
[2021-02-20] MEDS: Potassium Chlor 10 meq TAB PO SCH (12:25)
[2021-02-20] MEDS: DULoxetine DR 60 mg CAP PO SCH (12:26)
[2021-02-20] MEDS: BREXPIPRAZOLE 2 MG PO SCH (13:16)
[2021-02-20] MEDS: Cholecalciferol (VIT D3) 1,000 unit TAB PO SCH (13:16)
[2021-02-20] MEDS: Nicotine PATCH 21 MG/24 HR PATCH TRANSDERM SCH (13:25)
[2021-02-20 14:15] LABS: Body Fluid Mono 8 %; Body Fluid Total Cells Counted 50
[2021-02-20] MEDS: fentaNYL PATCH 75 MCG/HR 1 PATCH TRANSDERM SCH (15:23)
[2021-02-20 17:05] VITALS: BP 142/80
== END 2021-02-20 18:59 | disposition home health service (06) | DRG 651 ==
LOC: AA 05:12 → SSU 14:06
PROVIDERS: ADMIT Neurological Surgery; ATTEND Internal Medicine

== ENCOUNTER 2021-03-27 12:21 | Inpatient (IN) ==
[2021-03-27] MEDS ORDERED: Cefepime 2 GM in NS 0.9% 50 ML 50 ML IVPB ONE (12:37)
[2021-03-27] MEDS ORDERED: Lactated Ringers 1000 ml BAG IV.FLUID IV ONE (12:37)
[2021-03-27] MEDS ORDERED: metroNIDAZOLE IV 500 MG/100ML 500 MG/100 ML BAG IVPB ONE (12:37)
[2021-03-27 12:52] LABS: Hematocrit 26 % (35-47); Hemoglobin 7.8 g/dL (12.0-16.0); Mean Corpuscular HGB Conc 31 g/dL (31-36); Mean Corpuscular Hemoglobin 26 pg (27-31); Mean Corpuscular Volume 86 fL (80-97); Mean Platelet Volume 8.6 fL (7.4-10.4); Platelet Count 141 10^3/uL (150-450); Red Blood Count 2.97 10^6 /uL (3.70-4.87); Red Cell Distribution Width 35 % (10-15); White Blood Count 16.8 10^3/uL (3.5-10.8)
[2021-03-27 13:09] LABS: ALT 28 U/L (7-52); AST 40 U/L (13-39); Alkaline Phosphatase 124 U/L (35-149); Anion Gap 13 mmol/L (2-11); Blood Urea Nitrogen 25 mg/dL (6-24); C Reactive Protein 56.17 mg/L (<8.01); CO2 Carbon Dioxide 27 mmol/L (22-32); Calcium 7.5 mg/dL (8.6-10.3); Chloride 91 mmol/L (101-111); EGFR African American 24.5 (>60); EGFR Non-African American 20.3 (>60); Globulin 2.9 g/dL (2-4); Glucose 216 mg/dL (70-100); Potassium 3.8 mmol/L (3.5-5.0); Sodium 131 mmol/L (135-145); Total Protein 5.9 g/dL (6.4-8.9)
[2021-03-27 13:10] LABS: Activated Partial Thrombo Time 27.2 seconds (26.0-38.0); INR 1.92 (0.86-1.15)
[2021-03-27 13:19] LABS: Troponin I 0.59 ng/mL (<0.03)
[2021-03-27 14:52] LABS: ABS Basophils 0.1 10^3/ul (0-0.2); ABS Lymphocytes 1.7 10^3/ul (1.0-4.8); ABS Monocytes 1.2 10^3/ul (0-0.8); ABS Neutrophils 13.8 10^3/ul (1.5-7.7); Acanthocytes 1+; Anisocytosis 2+; Eosinophil % 0.1 %; Microcytosis 1+; Nucleated Red Blood Cells % 0.2; Polychromasia 2+
[2021-03-27] MEDS ORDERED: Vancomycin 1,750 MG in NS 0.9% 250 ml 500 ML IVPB ONE (15:00)
[2021-03-27] MEDS ORDERED: Cefepime 2 GM IV - ED ONCE IV ONE (15:00)
[2021-03-27 15:29] LABS: Creatine Kinase 1054 U/L (10-223)
[2021-03-27 15:35] LABS: Myoglobin 3962.2 ng/mL (14.3-65.8)
[2021-03-27] MEDS ORDERED: Linezolid 600 MG IVPREMIX(*) 600 MG/300 ML BAG IVPB SCH (16:00)
[2021-03-27 16:08] LABS: Indirect Bilirubin 2.3 mg/dL (0.3-1.0)
[2021-03-27] MEDS: Clindamycin 900 MG/D5W BAG 900 MG/50 ML BAG IVPB SCH ×2 (16:21→22:34)
[2021-03-27 16:56] LABS: Troponin I 1.34 ng/mL (<0.03)
[2021-03-27] MEDS ORDERED: Dextrose 50% Syringe 50 ml 25 GM/50 ML SYRINGE IV PUSH PRN (17:09)
[2021-03-27 17:29] LABS: Anion Gap 9 mmol/L (2-11); Blood Urea Nitrogen 25 mg/dL (6-24); CO2 Carbon Dioxide 29 mmol/L (22-32); Calcium 7.3 mg/dL (8.6-10.3); Chloride 95 mmol/L (101-111); EGFR African American 34.3 (>60); EGFR Non-African American 28.3 (>60); Glucose 209 mg/dL (70-100); Potassium 3.5 mmol/L (3.5-5.0); Sodium 133 mmol/L (135-145)
[2021-03-27 17:31] LABS: PCO2 Arterial 53 mmHg (35-45); PO2 Arterial 106 mmHg (80-100)
[2021-03-27] MEDS ORDERED: Norepinephrine 16MCG/ML IVPRE 4,000 MCG/250 ML BAG IV SCH (18:00)
[2021-03-27 18:09] LABS: Urine Appearance Cloudy; Urine Bilirubin Negative (Negative); Urine Blood 3+ (Negative); Urine Color Amber; Urine Glucose Negative (Negative); Urine Ketones Negative (Negative); Urine Nitrite Negative (Negative); Urine Protein 3+(>=500 mg/dL) (Negative); Urine Specific Gravity 1.014 (1.002-1.030); Urine Urobilinogen Positive (Negative)
[2021-03-27 18:13] LABS: Urine Bacteria Absent (Absent); Urine Red Blood Cell Trace(0-2/hpf) (Absent); Urine Squamous Epithelial Cell Present (Absent); Urine White Blood Cell Trace(0-5/hpf) (Absent)
[2021-03-27] MEDS: Pantoprazole VIAL 40 MG VIAL IV SCH (19:15)
[2021-03-27] MEDS: Dexamethasone IV 4 MG/ML VIAL 1 ml VIAL IV SLOW PU SCH (19:15)
[2021-03-27] MEDS: fentaNYL Patch Check Q Shift NOTE FOLLOW UP SCH (19:16)
[2021-03-27 19:28] LABS: Urine Benzodiazepine Screen None Detected (None Detect); Urine Cannabinoids Screen Presumptive Positive (None Detect); Urine Opiates Screen Presumptive Positive (None Detect)
[2021-03-27] MEDS: levETIRAcetam 1000MG IVPREMIX 1,000 MG/100 ML BAG IVPB SCH (22:12)
[2021-03-27 22:32] LABS: Anion Gap 6 mmol/L (2-11); Blood Urea Nitrogen 27 mg/dL (6-24); CO2 Carbon Dioxide 32 mmol/L (22-32); Calcium 7.4 mg/dL (8.6-10.3); Chloride 95 mmol/L (101-111); EGFR African American 45.5 (>60); EGFR Non-African American 37.6 (>60); Glucose 179 mg/dL (70-100); Potassium 3.4 mmol/L (3.5-5.0); Sodium 133 mmol/L (135-145)
[2021-03-27 22:40] LABS: Troponin I 1.25 ng/mL (<0.03)
[2021-03-27 23:01] LABS: Hematocrit 24 % (35-47); Hemoglobin 7.4 g/dL (12.0-16.0); Mean Corpuscular HGB Conc 31 g/dL (31-36); Mean Corpuscular Hemoglobin 26 pg (27-31); Mean Corpuscular Volume 84 fL (80-97); Mean Platelet Volume 8.5 fL (7.4-10.4); Platelet Count 94 10^3/uL (150-450); Red Blood Count 2.84 10^6 /uL (3.70-4.87); Red Cell Distribution Width 35 % (10-15); White Blood Count 11.2 10^3/uL (3.5-10.8)
[2021-03-28] MEDS: Dexamethasone IV 4 MG/ML VIAL 1 ml VIAL IV SLOW PU SCH ×2 (00:28→05:24)
[2021-03-28] MEDS: Cefepime 2 GM in Dextrose 2 GM/50 ML BAG IV SCH ×2 (02:07→14:28)
[2021-03-28] MEDS: Clindamycin 900 MG/D5W BAG 900 MG/50 ML BAG IVPB SCH ×3 (05:24→22:31)
[2021-03-28 05:26] LABS: Hematocrit 25 % (35-47); Hemoglobin 7.8 g/dL (12.0-16.0); Mean Corpuscular HGB Conc 32 g/dL (31-36); Mean Corpuscular Hemoglobin 27 pg (27-31); Mean Corpuscular Volume 85 fL (80-97); Mean Platelet Volume 8.6 fL (7.4-10.4); Platelet Count 99 10^3/uL (150-450); Red Blood Count 2.91 10^6 /uL (3.70-4.87); Red Cell Distribution Width 34 % (10-15)
[2021-03-28 05:39] LABS: ALT 33 U/L (7-52); AST 56 U/L (13-39); Albumin 2.9 g/dL (3.2-5.2); Albumin/Globulin Ratio 0.9 (1-3); Alkaline Phosphatase 117 U/L (35-149); Anion Gap 7 mmol/L (2-11); Blood Urea Nitrogen 30 mg/dL (6-24); CO2 Carbon Dioxide 31 mmol/L (22-32); Calcium 7.5 mg/dL (8.6-10.3); Chloride 95 mmol/L (101-111); Creatine Kinase 1071 U/L (10-223); EGFR African American 56.1 (>60); EGFR Non-African American 46.3 (>60); Globulin 3.1 g/dL (2-4); Glucose 219 mg/dL (70-100); Indirect Bilirubin 1.4 mg/dL (0.3-1.0); Magnesium 1.9 mg/dL (1.9-2.7); Potassium 3.7 mmol/L (3.5-5.0); Sodium 133 mmol/L (135-145)
[2021-03-28 08:26] LABS: Troponin I 0.81 ng/mL (<0.03)
[2021-03-28] MEDS: levETIRAcetam 1000MG IVPREMIX 1,000 MG/100 ML BAG IVPB SCH (08:48)
[2021-03-28] MEDS: fentaNYL Patch Check Q Shift NOTE FOLLOW UP SCH ×2 (08:49→19:26)
[2021-03-28] MEDS: fentaNYL PATCH 75 MCG/HR 1 PATCH TRANSDERM SCH (10:12)
[2021-03-28] MEDS ORDERED: diPHENhydraMINE IV 50 MG/ML 1 ml VIAL (BENADRYL) IV ONE (11:02)
[2021-03-28] MEDS ORDERED: Dexamethasone IV 4 MG/ML VIAL 1 ml VIAL IV SLOW PU ONE (11:07)
[2021-03-28] MEDS ORDERED: Gadoteridol (CONTRAST) 279.3 MG/ML 10 ML IV ONE (11:24)
[2021-03-28] MEDS ORDERED: Gadobenate (CONTRAST) 529 MG/ML 10 ML SDV IV ONE (13:04)
[2021-03-28] MEDS ORDERED: Gadobenate (CONTRAST) 529 MG/ML 10 ML SDV IV SCH (14:00)
[2021-03-28] MEDS ORDERED: Albuterol 2.5mg/3 ml (0.083%) NEB.SOLN INH SCH (16:00)
[2021-03-28] MEDS: Albuterol HFA INHALER 8 gm MDI INH SCH ×2 (17:31→20:47)
[2021-03-28 18:22] LABS: Glucose Confirmatory 477 mg/dL (70-100)
[2021-03-28] MEDS: Pantoprazole VIAL 40 MG VIAL IV SCH (18:29)
[2021-03-28] MEDS ORDERED: Dextrose 50% Syringe 50 ml 25 GM/50 ML SYRINGE IV PUSH PRN (19:35)
[2021-03-28] MEDS: Senna TAB 8.6 mg TAB PO SCH (20:08)
[2021-03-28 20:38] LABS: Hematocrit 25 % (35-47); Hemoglobin 7.4 g/dL (12.0-16.0); Mean Corpuscular HGB Conc 30 g/dL (31-36); Mean Corpuscular Hemoglobin 26 pg (27-31); Mean Corpuscular Volume 87 fL (80-97); Red Blood Count 2.85 10^6 /uL (3.70-4.87); Red Cell Distribution Width 35 % (10-15); White Blood Count 7.3 10^3/uL (3.5-10.8)
[2021-03-28 20:48] LABS: Glucose Confirmatory 521 mg/dL (70-100)
[2021-03-28 20:52] LABS: Activated Partial Thrombo Time 27.6 seconds (26.0-38.0); INR 1.73 (0.86-1.15)
[2021-03-28] MEDS ORDERED: Insulin GLARGINE 100 un/ml 10 ml VIAL SUBCUT SCH (21:00)
[2021-03-28] MEDS ORDERED: Phytonadione Oral Solution 5 MG/25 ML UDC PO ONE (21:02)
[2021-03-28 21:05] LABS: Mean Platelet Volume 9.2 fL (7.4-10.4); Platelet Count 107 10^3/uL (150-450)
[2021-03-28] MEDS: Insulin GLARGINE 100 un/ml 10 ml VIAL SUBCUT SCH (21:24)
[2021-03-29] MEDS: Cefepime 2 GM in Dextrose 2 GM/50 ML BAG IV SCH (02:04)
[2021-03-29] MEDS: Clindamycin 900 MG/D5W BAG 900 MG/50 ML BAG IVPB SCH (05:40)
[2021-03-29 05:52] LABS: INR 1.56 (0.86-1.15)
[2021-03-29] MEDS: Albuterol HFA INHALER 8 gm MDI INH SCH (05:56)
[2021-03-29 06:01] LABS: ALT 32 U/L (7-52); AST 25 U/L (13-39); Albumin 2.8 g/dL (3.2-5.2); Albumin/Globulin Ratio 0.9 (1-3); Alkaline Phosphatase 119 U/L (35-149); Anion Gap 3 mmol/L (2-11); Blood Urea Nitrogen 35 mg/dL (6-24); CO2 Carbon Dioxide 34 mmol/L (22-32); Calcium 7.7 mg/dL (8.6-10.3); Chloride 96 mmol/L (101-111); EGFR African American 76.8 (>60); EGFR Non-African American 63.4 (>60); Glucose 369 mg/dL (70-100); Magnesium 1.8 mg/dL (1.9-2.7); Potassium 3.7 mmol/L (3.5-5.0); Sodium 133 mmol/L (135-145); Total Protein 5.8 g/dL (6.4-8.9)
[2021-03-29 06:06] LABS: Anisocytosis 3+
[2021-03-29 06:07] LABS: ABS Lymphocytes 0.6 10^3/ul (1.0-4.8); ABS Monocytes 0.5 10^3/ul (0-0.8); ABS Neutrophils 5.7 10^3/ul (1.5-7.7); ABS Nucleated RBC 0.1 10^3/ul; Eosinophil % 0.1 %; Hematocrit 25 % (35-47); Hemoglobin 7.6 g/dL (12.0-16.0); Lymphocyte % 9.3 %; Mean Corpuscular HGB Conc 31 g/dL (31-36); Mean Corpuscular Hemoglobin 27 pg (27-31); Mean Corpuscular Volume 86 fL (80-97); Mean Platelet Volume 8.8 fL (7.4-10.4); Platelet Count 91 10^3/uL (150-450); Polychromasia 1+; Red Blood Count 2.87 10^6 /uL (3.70-4.87); Red Cell Distribution Width 34 % (10-15); White Blood Count 6.9 10^3/uL (3.5-10.8)
[2021-03-29] MEDS: fentaNYL Patch Check Q Shift NOTE FOLLOW UP SCH ×3 (07:09→18:51)
[2021-03-29] MEDS ORDERED: Magnesium Sulfate 2 gm BAG 2 GM/50 ML BAG IVPB ONE (07:35)
[2021-03-29] MEDS: Senna TAB 8.6 mg TAB PO SCH ×2 (09:02→23:11)
[2021-03-29] MEDS: Nicotine PATCH 14 MG/24 HR PATCH TRANSDERM SCH (09:03)
[2021-03-29 13:36] LABS: Glucose Confirmatory 400 mg/dL (70-100)
[2021-03-29] MEDS ORDERED: cefTRIAXone 1 gm/50 mL NS BAG 1 GM/50 ML BAG IVPB SCH (14:00)
[2021-03-29] MEDS ORDERED: Albuterol HFA INHALER 8 gm MDI INH PRN (14:01)
[2021-03-29 15:43] LABS: Total Iron Binding Capacity 375 mcg/dL (250-450); Transferrin 268 mg/dL (203-362)
[2021-03-29 15:45] LABS: % Iron Saturation 5 % (15-55); Iron < 20 ug/dL (50-212); Unsaturated Iron Binding < 360 ug/dL
[2021-03-29 16:03] LABS: Ferritin 30.3 ng/mL (11-307)
[2021-03-29] MEDS: Tiotropium Brom/Olodaterol MDI INH SCH (18:02)
[2021-03-29] MEDS: DOXYcycline 100 MG in NS 0.9% 250 ml 250 ML IVPB SCH (18:03)
[2021-03-29 18:23] LABS: Methotrexate <0.04 mcmol/L (<0.10)
[2021-03-29] MEDS: Insulin GLARGINE 100 un/ml 10 ml VIAL SUBCUT SCH (22:36)
[2021-03-30] MEDS: Ondansetron 4 mg VIAL 2 MG/ML 2 ml VIAL IV PRN ×2 (00:19→22:26)
[2021-03-30 02:14] LABS: Troponin I 0.19 ng/mL (<0.03)
[2021-03-30 05:46] LABS: Hematocrit 25 % (35-47); Hemoglobin 7.6 g/dL (12.0-16.0); Mean Corpuscular HGB Conc 30 g/dL (31-36); Mean Corpuscular Hemoglobin 26 pg (27-31); Mean Corpuscular Volume 87 fL (80-97); Mean Platelet Volume 8.8 fL (7.4-10.4); Platelet Count 88 10^3/uL (150-450); Red Blood Count 2.91 10^6 /uL (3.70-4.87); Red Cell Distribution Width 34 % (10-15); White Blood Count 7.2 10^3/uL (3.5-10.8)
[2021-03-30 05:47] LABS: INR 1.31 (0.86-1.15)
[2021-03-30 06:04] LABS: Anion Gap 4 mmol/L (2-11); Blood Urea Nitrogen 24 mg/dL (6-24); CO2 Carbon Dioxide 35 mmol/L (22-32); Calcium 7.9 mg/dL (8.6-10.3); Chloride 100 mmol/L (101-111); EGFR Non-African American 118.2 (>60); Glucose 177 mg/dL (70-100); Magnesium 1.8 mg/dL (1.9-2.7); Potassium 3.4 mmol/L (3.5-5.0); Sodium 139 mmol/L (135-145)
[2021-03-30 06:10] LABS: Troponin I 0.22 ng/mL (<0.03)
[2021-03-30] MEDS: DOXYcycline 100 MG in NS 0.9% 250 ml 250 ML IVPB SCH (06:25)
[2021-03-30] MEDS ORDERED: Dextrose 50% Syringe 50 ml 25 GM/50 ML SYRINGE IV PUSH PRN (06:42)
[2021-03-30] MEDS: fentaNYL Patch Check Q Shift NOTE FOLLOW UP SCH ×2 (06:55→19:26)
[2021-03-30] MEDS: Senna TAB 8.6 mg TAB PO SCH ×2 (08:59→21:22)
[2021-03-30] MEDS: Nicotine PATCH 14 MG/24 HR PATCH TRANSDERM SCH (09:00)
[2021-03-30] MEDS: Tiotropium Brom/Olodaterol MDI INH SCH (09:04)
[2021-03-30 13:13] LABS: Troponin I 0.21 ng/mL (<0.03)
[2021-03-30] MEDS: Insulin GLARGINE 100 un/ml 10 ml VIAL SUBCUT SCH (21:28)
[2021-03-31 06:12] LABS: Hematocrit 26 % (35-47); Hemoglobin 7.9 g/dL (12.0-16.0); Mean Corpuscular HGB Conc 31 g/dL (31-36); Mean Corpuscular Hemoglobin 27 pg (27-31); Mean Corpuscular Volume 86 fL (80-97); Mean Platelet Volume 8.9 fL (7.4-10.4); Platelet Count 103 10^3/uL (150-450); Red Blood Count 2.97 10^6 /uL (3.70-4.87); Red Cell Distribution Width 34 % (10-15); White Blood Count 7.6 10^3/uL (3.5-10.8)
[2021-03-31] MEDS: Ondansetron 4 mg VIAL 2 MG/ML 2 ml VIAL IV PRN ×2 (06:12→12:18)
[2021-03-31 06:31] LABS: Calcium 8.1 mg/dL (8.6-10.3); EGFR Non-African American 120.6 (>60); Potassium 3.7 mmol/L (3.5-5.0)
[2021-03-31] MEDS: fentaNYL Patch Check Q Shift NOTE FOLLOW UP SCH (07:04)
[2021-03-31] MEDS: Senna TAB 8.6 mg TAB PO SCH (08:43)
[2021-03-31] MEDS: Nicotine PATCH 14 MG/24 HR PATCH TRANSDERM SCH (08:43)
[2021-03-31] MEDS: fentaNYL PATCH 75 MCG/HR 1 PATCH TRANSDERM SCH (08:49)
[2021-03-31] MEDS ORDERED: DULoxetine DR 60 mg CAP PO SCH (09:00)
[2021-03-31] MEDS ORDERED: BREXPIPRAZOLE 2 MG PO SCH (09:00)
[2021-03-31 11:23] VITALS: BP 127/74
[2021-03-31] MEDS: Tiotropium Brom/Olodaterol MDI INH SCH (12:21)
[2021-03-31] MEDS ORDERED: Flu vaccine *QUAD* 2021-22* 0.5 ML SYRINGE IM ONE (16:00)
== END 2021-03-31 16:58 | disposition home health service (06) | DRG 720 ==
LOC: ED 12:21 → ICU 14:57 → SSU 03-29 13:52
PROVIDERS: ADMIT Internal Medicine; ATTEND Internal Medicine

== ENCOUNTER 2021-04-17 14:47 | Inpatient (IN) ==
[2021-04-17 16:40] LABS: ABS Eosinophils 0.1 10^3/ul (0-0.6); ABS Lymphocytes 1.1 10^3/ul (1.0-4.8); ABS Monocytes 0.2 10^3/ul (0-0.8); ABS Neutrophils 7.4 10^3/ul (1.5-7.7); ABS Nucleated RBC 0.1 10^3/ul; Eosinophil % 1.1 %; Hematocrit 20 % (35-47); Hemoglobin 6.3 g/dL (12.0-16.0); Lymphocyte % 12.9 %; Mean Corpuscular HGB Conc 31 g/dL (31-36); Mean Corpuscular Hemoglobin 27 pg (27-31); Mean Corpuscular Volume 87 fL (80-97); Mean Platelet Volume 8.3 fL (7.4-10.4); Nucleated Red Blood Cells % 0.5; Platelet Count 64 10^3/uL (150-450); Red Blood Count 2.32 10^6 /uL (3.70-4.87); Red Cell Distribution Width 30 % (10-15); White Blood Count 8.8 10^3/uL (3.5-10.8)
[2021-04-17 17:04] LABS: Albumin 3.5 g/dL (3.2-5.2); Albumin/Globulin Ratio 1.9 (1-3); Calcium 7.7 mg/dL (8.6-10.3); EGFR African American 92.1 (>60); EGFR Non-African American 76.1 (>60); Globulin 1.8 g/dL (2-4); Magnesium 1.6 mg/dL (1.9-2.7); Total Bilirubin 2.6 mg/dL (0.2-1.0); Total Protein 5.3 g/dL (6.4-8.9)
[2021-04-17 17:13] LABS: Potassium 2.4 mmol/L (3.5-5.0)
[2021-04-17] MEDS ORDERED: Magnesium Sulf 4 GM/100 ML IV 4,000 MG/100 ML BAG IVPB ONE (17:18)
[2021-04-17] MEDS ORDERED: Albuterol HFA INHALER 8 gm MDI INH PRN (17:41)
[2021-04-17] MEDS ORDERED: Ondansetron ODT 4 mg TAB 4 MG TAB PO PRN (17:41)
[2021-04-17] MEDS: KCL 20 MEQ/100 ML IVPREMIX 20 MEQ/100 ML BAG IV SCH ×3 (18:24→23:19)
[2021-04-17] MEDS ORDERED: fentaNYL PATCH 75 MCG/HR 1 PATCH TRANSDERM SCH (19:00)
[2021-04-17] MEDS: fentaNYL Patch Check Q Shift NOTE FOLLOW UP SCH (19:38)
[2021-04-17 20:28] LABS: Rapid COVID-19 Molecular Undetected (Undetected)
[2021-04-17] MEDS: Diphenoxylat/Atrop 2.5-0.025mg TAB PO SCH (20:43)
[2021-04-18 01:40] LABS: ABS Eosinophils 0.1 10^3/ul (0-0.6); ABS Lymphocytes 1.3 10^3/ul (1.0-4.8); ABS Monocytes 0.2 10^3/ul (0-0.8); ABS Neutrophils 5.2 10^3/ul (1.5-7.7); ABS Nucleated RBC 0.1 10^3/ul; Eosinophil % 1.8 %; Hematocrit 22 % (35-47); Hemoglobin 6.9 g/dL (12.0-16.0); Lymphocyte % 18.6 %; Mean Corpuscular HGB Conc 32 g/dL (31-36); Mean Corpuscular Hemoglobin 28 pg (27-31); Mean Corpuscular Volume 88 fL (80-97); Mean Platelet Volume 8.3 fL (7.4-10.4); Nucleated Red Blood Cells % 1.4; Platelet Count 50 10^3/uL (150-450); Red Blood Count 2.46 10^6 /uL (3.70-4.87); Red Cell Distribution Width 29 % (10-15); White Blood Count 6.8 10^3/uL (3.5-10.8)
[2021-04-18 01:53] LABS: Albumin 3.2 g/dL (3.2-5.2); Albumin/Globulin Ratio 1.7 (1-3); Calcium 7.5 mg/dL (8.6-10.3); EGFR African American 110.5 (>60); EGFR Non-African American 91.3 (>60); Globulin 1.9 g/dL (2-4); Total Bilirubin 2.7 mg/dL (0.2-1.0); Total Protein 5.1 g/dL (6.4-8.9)
[2021-04-18 01:56] LABS: Potassium 2.2 mmol/L (3.5-5.0)
[2021-04-18] MEDS ORDERED: Magnesium Sulfate 4 GM IV IVPB ONE (02:30)
[2021-04-18 02:35] LABS: Magnesium 2.8 mg/dL (1.9-2.7)
[2021-04-18] MEDS: KCL 20 MEQ/100 ML IVPREMIX 20 MEQ/100 ML BAG IV SCH ×6 (02:50→16:22)
[2021-04-18] MEDS ORDERED: Magnesium Sulfate 2 GM IV (Premix) IVPB ONE (03:00)
[2021-04-18] MEDS ORDERED: Morphine 2 MG/ML SYRINGE IV ONE (03:00)
[2021-04-18] MEDS ORDERED: Morphine 10 MG/ML VIAL (1 ml) IV ONE (03:30)
[2021-04-18] MEDS: fentaNYL Patch Check Q Shift NOTE FOLLOW UP SCH ×2 (07:10→19:23)
[2021-04-18] MEDS: Tiotropium Brom/Olodaterol MDI INH SCH (07:29)
[2021-04-18] MEDS: DULoxetine DR 60 mg CAP PO SCH (09:12)
[2021-04-18] MEDS: Potassium Chlor 20 meq TAB.ER PO SCH (09:12)
[2021-04-18] MEDS: Diphenoxylat/Atrop 2.5-0.025mg TAB PO SCH ×2 (09:13→20:01)
[2021-04-18 10:19] LABS: ABS Eosinophils 0.3 10^3/ul (0-0.6); ABS Lymphocytes 1.6 10^3/ul (1.0-4.8); ABS Monocytes 0.2 10^3/ul (0-0.8); ABS Neutrophils 5.4 10^3/ul (1.5-7.7); ABS Nucleated RBC 0.1 10^3/ul; Eosinophil % 3.4 %; Hematocrit 26 % (35-47); Hemoglobin 8.3 g/dL (12.0-16.0); Lymphocyte % 21.6 %; Mean Corpuscular HGB Conc 32 g/dL (31-36); Mean Corpuscular Hemoglobin 29 pg (27-31); Mean Corpuscular Volume 90 fL (80-97); Mean Platelet Volume 8.1 fL (7.4-10.4); Nucleated Red Blood Cells % 1.9; Platelet Count 52 10^3/uL (150-450); Red Blood Count 2.85 10^6 /uL (3.70-4.87); Red Cell Distribution Width 26 % (10-15); White Blood Count 7.5 10^3/uL (3.5-10.8)
[2021-04-18 10:26] LABS: Blood Urea Nitrogen 8 mg/dL (6-24); CO2 Carbon Dioxide 38 mmol/L (22-32); Calcium 7.8 mg/dL (8.6-10.3); Chloride 92 mmol/L (101-111); EGFR African American 129.5 (>60); Glucose 192 mg/dL (70-100); Sodium 135 mmol/L (135-145)
[2021-04-18] MEDS: Insulin GLARGINE 100 un/ml 10 ml VIAL SUBCUT SCH (10:31)
[2021-04-18] MEDS: BREXPIPRAZOLE 2 MG PO SCH (10:32)
[2021-04-18 10:37] LABS: Anion Gap 5 mmol/L (2-11); Potassium 2.7 mmol/L (3.5-5.0)
[2021-04-18 11:02] LABS: Magnesium 2.8 mg/dL (1.9-2.7)
[2021-04-18] MEDS ORDERED: fentaNYL PATCH 100 MCG/HR 1 PATCH TRANSDERM SCH (12:00)
[2021-04-18 12:41] LABS: % Iron Saturation 8 % (15-55); Iron 31 ug/dL (50-212); Total Iron Binding Capacity 392 mcg/dL (250-450); Transferrin 280 mg/dL (203-362); Unsaturated Iron Binding < 377 ug/dL
[2021-04-18 13:00] LABS: Ferritin 31.4 ng/mL (11-307)
[2021-04-19 07:30] LABS: Hematocrit 23 % (35-47); Hemoglobin 7.6 g/dL (12.0-16.0); Mean Corpuscular HGB Conc 33 g/dL (31-36); Mean Corpuscular Hemoglobin 30 pg (27-31); Mean Corpuscular Volume 90 fL (80-97); Mean Platelet Volume 8.2 fL (7.4-10.4); Platelet Count 53 10^3/uL (150-450); Red Blood Count 2.58 10^6 /uL (3.70-4.87); Red Cell Distribution Width 28 % (10-15); White Blood Count 5.5 10^3/uL (3.5-10.8)
[2021-04-19 07:44] LABS: Albumin 3.1 g/dL (3.2-5.2); Albumin/Globulin Ratio 1.7 (1-3); Calcium 7.9 mg/dL (8.6-10.3); EGFR African American 149.1 (>60); EGFR Non-African American 123.2 (>60); Globulin 1.8 g/dL (2-4); Magnesium 2.2 mg/dL (1.9-2.7); Potassium 2.8 mmol/L (3.5-5.0); Total Bilirubin 2.2 mg/dL (0.2-1.0); Total Protein 4.9 g/dL (6.4-8.9)
[2021-04-19 08:00] LABS: Anisocytosis 2+; Basophilic Stippling 1+; Hypochromasia 1+; Polychromasia 2+
[2021-04-19 08:02] LABS: ABS Eosinophils 0.2 10^3/ul (0-0.6); ABS Lymphocytes 1.2 10^3/ul (1.0-4.8); ABS Monocytes 0.2 10^3/ul (0-0.8); ABS Neutrophils 3.9 10^3/ul (1.5-7.7); ABS Nucleated RBC 0.1 10^3/ul; Eosinophil % 3.1 %; Lymphocyte % 22.2 %; Nucleated Red Blood Cells % 1.7
[2021-04-19] MEDS: Tiotropium Brom/Olodaterol MDI INH SCH (09:21)
[2021-04-19] MEDS: KCL 20 MEQ/100 ML IVPREMIX 20 MEQ/100 ML BAG IV SCH ×3 (09:51→15:37)
[2021-04-19] MEDS: Potassium Chlor 20 meq TAB.ER PO SCH (09:52)
[2021-04-19] MEDS: DULoxetine DR 60 mg CAP PO SCH (09:52)
[2021-04-19] MEDS: Diphenoxylat/Atrop 2.5-0.025mg TAB PO SCH ×2 (09:53→21:16)
[2021-04-19] MEDS: Insulin GLARGINE 100 un/ml 10 ml VIAL SUBCUT SCH (09:54)
[2021-04-19] MEDS: fentaNYL Patch Check Q Shift NOTE FOLLOW UP SCH ×2 (12:38→19:18)
[2021-04-19] MEDS: BREXPIPRAZOLE 2 MG PO SCH (19:14)
[2021-04-20] MEDS: fentaNYL Patch Check Q Shift NOTE FOLLOW UP SCH (07:17)
[2021-04-20] MEDS: Tiotropium Brom/Olodaterol MDI INH SCH (07:52)
[2021-04-20] MEDS: Potassium Chlor 20 meq TAB.ER PO SCH (09:10)
[2021-04-20] MEDS: Diphenoxylat/Atrop 2.5-0.025mg TAB PO SCH (09:57)
[2021-04-20] MEDS: Insulin GLARGINE 100 un/ml 10 ml VIAL SUBCUT SCH (10:00)
[2021-04-20] MEDS: BREXPIPRAZOLE 2 MG PO SCH (10:01)
[2021-04-20] MEDS: DULoxetine DR 60 mg CAP PO SCH (10:01)
[2021-04-20] MEDS ORDERED: Ferric Gluconate IV 125 MG in NS 0.9% 100 ml BAG 100 ML IVPB ONE (11:00)
[2021-04-20] MEDS ORDERED: fentaNYL PATCH 100 MCG/HR 1 PATCH TRANSDERM SCH (11:00)
[2021-04-20] MEDS ORDERED: fentaNYL PATCH 25 MCG/HR 1 PATCH TRANSDERM SCH (11:00)
[2021-04-20 12:06] LABS: ABS Eosinophils 0.1 10^3/ul (0-0.6); ABS Lymphocytes 0.7 10^3/ul (1.0-4.8); ABS Monocytes 0.3 10^3/ul (0-0.8); ABS Neutrophils 3.4 10^3/ul (1.5-7.7); ABS Nucleated RBC 0.1 10^3/ul; Eosinophil % 2.9 %; Hematocrit 26 % (35-47); Hemoglobin 8.2 g/dL (12.0-16.0); Lymphocyte % 14.6 %; Mean Corpuscular HGB Conc 32 g/dL (31-36); Mean Corpuscular Hemoglobin 29 pg (27-31); Mean Corpuscular Volume 92 fL (80-97); Mean Platelet Volume 8.7 fL (7.4-10.4); Platelet Count 67 10^3/uL (150-450); Red Cell Distribution Width 31 % (10-15); White Blood Count 4.5 10^3/uL (3.5-10.8)
[2021-04-20 12:10] VITALS: BP 157/89
[2021-04-20 12:17] LABS: Albumin 3.4 g/dL (3.2-5.2); Albumin/Globulin Ratio 1.8 (1-3); Calcium 8.1 mg/dL (8.6-10.3); EGFR African American 170.8 (>60); EGFR Non-African American 141.2 (>60); Globulin 1.9 g/dL (2-4); Magnesium 2.1 mg/dL (1.9-2.7); Potassium 3.7 mmol/L (3.5-5.0); Total Bilirubin 2.1 mg/dL (0.2-1.0); Total Protein 5.3 g/dL (6.4-8.9)
[2021-04-20 12:50] LABS: Anisocytosis 2+; Polychromasia 2+
[2021-04-20 12:51] LABS: Basophilic Stippling 1+
[2021-04-20 12:52] LABS: Acanthocytes 1+
== END 2021-04-20 14:50 | disposition home or self-care (01) | DRG 425 ==
LOC: CHOA 14:47 → MEDTELE 14:47
PROVIDERS: ADMIT Internal Medicine Hematology & Oncology; ATTEND Internal Medicine Hematology & Oncology

== ENCOUNTER 2021-06-21 11:09 | Inpatient (IN) ==
[2021-06-21] MEDS ORDERED: Lactated Ringers 1000 ml BAG 1,000 ML IV ONE ×2 (12:03)
[2021-06-21 12:05] LABS: ABS Basophils 0.1 10^3/ul (0-0.2); ABS Eosinophils 0.2 10^3/ul (0-0.6); ABS Lymphocytes 2.9 10^3/ul (1.0-4.8); ABS Monocytes 0.2 10^3/ul (0-0.8); ABS Neutrophils 6.5 10^3/ul (1.5-7.7); ABS Nucleated RBC 0.4 10^3/ul; Eosinophil % 1.9 %; Hematocrit 31 % (35-47); Hemoglobin 10.1 g/dL (12.0-16.0); Lymphocyte % 29.4 %; Mean Corpuscular HGB Conc 33 g/dL (31-36); Mean Corpuscular Hemoglobin 36 pg (27-31); Mean Corpuscular Volume 111 fL (80-97); Mean Platelet Volume 8.3 fL (7.4-10.4); Nucleated Red Blood Cells % 4.5; Platelet Count 113 10^3/uL (150-450); Red Blood Count 2.77 10^6 /uL (3.70-4.87); Red Cell Distribution Width 28 % (10-15); White Blood Count 9.9 10^3/uL (3.5-10.8)
[2021-06-21 12:18] LABS: Activated Partial Thrombo Time 29.6 seconds (26.0-38.0); INR 1.32 (0.86-1.15)
[2021-06-21] MEDS ORDERED: Iodixanol (CONTRAST) 320 MG/ML 100 ML SDV IV ONE (12:18)
[2021-06-21 12:28] LABS: Albumin 3.5 g/dL (3.2-5.2); Albumin/Globulin Ratio 1.8 (1-3); Ammonia 86 mcmol/L (16-53); C Reactive Protein 28.59 mg/L (<8.01); Calcium 8.4 mg/dL (8.6-10.3); Globulin 1.9 g/dL (2-4); Potassium 3.3 mmol/L (3.5-5.0); Total Bilirubin 3.8 mg/dL (0.2-1.0); Total Protein 5.4 g/dL (6.4-8.9); Troponin I 0.01 ng/mL (<0.03); eGFR CKD-EPI 114.6 (>60)
[2021-06-21 12:31] LABS: BNP 36 pg/mL (<=100)
[2021-06-21 12:36] LABS: PCO2 Arterial 42 mmHg (35-45); PO2 Arterial 144 mmHg (80-100)
[2021-06-21] MEDS ORDERED: Vancomycin 1,000 MG in NS 0.9% 250 ml 250 ML IVPB ONE (12:46)
[2021-06-21] MEDS ORDERED: Piperacillin/Tazobac ADVAN 3.375 GM in NS 0.9% 100 ml BAG 100 ML IV ONE (12:46)
[2021-06-21] MEDS ORDERED: Succinylcholine 200 mg VIAL 20 mg/ml 10 ml VIAL (200 mg) ONE (13:08)
[2021-06-21] MEDS ORDERED: Rocuronium 50 mg VIAL 10 mg/ml 5 ml VIAL (50 mg) ONE ×2 (13:08→13:17)
[2021-06-21] MEDS ORDERED: Propofol 10 mg/ml 100 ML BTL 100 ML ONE (13:09)
[2021-06-21 13:10] LABS: Direct Bilirubin 1.8 mg/dL (0.03-0.18)
[2021-06-21 13:20] LABS: Rapid COVID-19 Molecular Undetected (Undetected)
[2021-06-21] MEDS ORDERED: Etomidate 40 mg/20 ml (2 MG/ML) 20 ml VIAL (40 mg) ONE (13:25)
[2021-06-21] MEDS ORDERED: Propofol 10 mg/ml 100 ML BTL 100 ML IV ONE (13:33)
[2021-06-21] MEDS ORDERED: Lactulose 30 ml UDC NG TUBE ONE (13:41)
[2021-06-21] MEDS ORDERED: Norepinephrine 16MCG/ML IVPRE 4,000 MCG/250 ML BAG IV SCH ×2 (14:00→16:52)
[2021-06-21] MEDS ORDERED: Potassium Chloride LIQUID 20 MEQ/15 ML LIQUID PO ONE (14:20)
[2021-06-21 14:58] LABS: Urine Appearance Cloudy; Urine Bilirubin Negative (Negative); Urine Blood 2+ (Negative); Urine Color Amber; Urine Glucose Negative (Negative); Urine Ketones Negative (Negative); Urine Nitrite Negative (Negative); Urine Protein 1+(30 mg/dL) (Negative); Urine Urobilinogen Positive (Negative)
[2021-06-21 15:11] LABS: Urine Bacteria 3+ (Absent); Urine Red Blood Cell 1+(3-5/hpf) (Absent); Urine Squamous Epithelial Cell Present (Absent); Urine White Blood Cell 3+(>20/hpf) (Absent)
[2021-06-21] MEDS ORDERED: Neosporin TOPICAL OINT PACKET TOPICAL ONE (15:20)
[2021-06-21] MEDS ORDERED: Vancomycin 1,000 MG BAG/ADDV ONE (15:22)
[2021-06-21 15:39] LABS: Urine Specific Gravity > 1.030 (1.002-1.030)
[2021-06-21] MEDS: Propofol 10 mg/ml 100 ML BTL 100 ML IV SCH ×2 (17:17→21:25)
[2021-06-21] MEDS: Enoxaparin 40 MG/0.4 ML SYR SUBCUT SCH (18:42)
[2021-06-21] MEDS: Chlorhexidine MOUTHWASH 0.12% 15 ML UDC TOPICAL SCH ×2 (18:42→20:31)
[2021-06-21] MEDS: Lactulose 30 ml UDC NG TUBE SCH (20:31)
[2021-06-21] MEDS ORDERED: cefTRIAXone 1 gm/50 mL NS BAG 1 GM/50 ML BAG IVPB SCH (21:00)
[2021-06-21] MEDS: Acetaminophen IV 1 GM/100ML 100 ML IV PRN (21:26)
[2021-06-21 23:50] LABS: PCO2 Arterial 31 mmHg (35-45); PO2 Arterial 141 mmHg (80-100)
[2021-06-22] MEDS: Chlorhexidine MOUTHWASH 0.12% 15 ML UDC TOPICAL SCH ×7 (01:39→23:09)
[2021-06-22] MEDS: Propofol 10 mg/ml 100 ML BTL 100 ML IV SCH ×5 (01:43→21:32)
[2021-06-22 05:39] LABS: ABS Basophils 0.1 10^3/ul (0-0.2); ABS Eosinophils 0.1 10^3/ul (0-0.6); ABS Lymphocytes 1.4 10^3/ul (1.0-4.8); ABS Monocytes 0.1 10^3/ul (0-0.8); ABS Neutrophils 4.9 10^3/ul (1.5-7.7); ABS Nucleated RBC 0.1 10^3/ul; Eosinophil % 1.5 %; Hematocrit 27 % (35-47); Hemoglobin 8.9 g/dL (12.0-16.0); Lymphocyte % 20.9 %; Mean Corpuscular HGB Conc 33 g/dL (31-36); Mean Corpuscular Hemoglobin 37 pg (27-31); Mean Corpuscular Volume 111 fL (80-97); Mean Platelet Volume 8.2 fL (7.4-10.4); Nucleated Red Blood Cells % 1.8; Platelet Count 105 10^3/uL (150-450); Red Blood Count 2.43 10^6 /uL (3.70-4.87); Red Cell Distribution Width 28 % (10-15); White Blood Count 6.5 10^3/uL (3.5-10.8)
[2021-06-22 05:44] LABS: INR 1.33 (0.86-1.15)
[2021-06-22 05:54] LABS: Albumin 3.2 g/dL (3.2-5.2); Albumin/Globulin Ratio 1.7 (1-3); Calcium 8.2 mg/dL (8.6-10.3); Globulin 1.9 g/dL (2-4); Phosphorus 3.6 mg/dL (2.5-5.0); Potassium 3.4 mmol/L (3.5-5.0); Total Bilirubin 3.1 mg/dL (0.2-1.0); Total Protein 5.1 g/dL (6.4-8.9); eGFR CKD-EPI 124.4 (>60)
[2021-06-22] MEDS: Acetaminophen IV 1 GM/100ML 100 ML IV PRN (06:01)
[2021-06-22] MEDS ORDERED: Potassium Chloride LIQUID 20 MEQ/15 ML LIQUID PO ONE (08:13)
[2021-06-22] MEDS: Pantoprazole VIAL 40 MG VIAL IV SCH (08:34)
[2021-06-22] MEDS: Lactulose 30 ml UDC NG TUBE SCH ×3 (08:34→20:21)
[2021-06-22] MEDS: levETIRAcetam LIQ 500 MG/5 ML UDC PO SCH ×2 (08:37→23:09)
[2021-06-22] MEDS ORDERED: Piperacillin/Tazobac ADVAN 3.375 GM in NS 0.9% 100 ml BAG 100 ML IV ONE (09:01)
[2021-06-22] MEDS ORDERED: Zosyn per Pharmacy NOTE FOLLOW UP SCH (10:00)
[2021-06-22] MEDS ORDERED: Vancomycin per Pharmacy 1 EA NOTE FOLLOW UP SCH (10:00)
[2021-06-22] MEDS ORDERED: Vancomycin 1,750 MG in NS 0.9% 500 ml BAG 500 ML IVPB ONE (10:00)
[2021-06-22] MEDS ORDERED: ZOSYN 3.375 GM Q8H per EXTENDED INFUSION IV SCH (14:00)
[2021-06-22] MEDS: cefTRIAXone 1 gm/50 mL NS BAG 1 GM/50 ML BAG IVPB SCH (16:20)
[2021-06-22] MEDS: Artificial Tear OPHTH.OINT 3.5 GM BOTH EYES SCH ×3 (17:14→23:09)
[2021-06-22] MEDS: Enoxaparin 40 MG/0.4 ML SYR SUBCUT SCH (17:16)
[2021-06-22] MEDS: fentaNYL 100 mcg/2 ml 50 MCG/ML VIAL IV SLOW PU PRN (20:21)
[2021-06-22] MEDS ORDERED: Vancomycin 1,750 MG in NS 0.9% 500 ml BAG 500 ML IVPB SCH (23:00)
[2021-06-23] MEDS: Propofol 10 mg/ml 100 ML BTL 100 ML IV SCH ×3 (01:50→08:12)
[2021-06-23] MEDS: fentaNYL 100 mcg/2 ml 50 MCG/ML VIAL IV SLOW PU PRN (03:35)
[2021-06-23] MEDS: Artificial Tear OPHTH.OINT 3.5 GM BOTH EYES SCH ×3 (03:35→12:30)
[2021-06-23] MEDS: Chlorhexidine MOUTHWASH 0.12% 15 ML UDC TOPICAL SCH ×3 (06:06→15:34)
[2021-06-23 06:35] LABS: ABS Basophils 0.1 10^3/ul (0-0.2); ABS Eosinophils 0.1 10^3/ul (0-0.6); ABS Lymphocytes 1.1 10^3/ul (1.0-4.8); ABS Monocytes 0.1 10^3/ul (0-0.8); ABS Neutrophils 3.4 10^3/ul (1.5-7.7); Eosinophil % 3.1 %; Hematocrit 25 % (35-47); Hemoglobin 8.1 g/dL (12.0-16.0); Lymphocyte % 22.5 %; Mean Corpuscular HGB Conc 32 g/dL (31-36); Mean Corpuscular Hemoglobin 36 pg (27-31); Mean Corpuscular Volume 112 fL (80-97); Mean Platelet Volume 8.3 fL (7.4-10.4); Nucleated Red Blood Cells % 0.5; Platelet Count 106 10^3/uL (150-450); Red Blood Count 2.24 10^6 /uL (3.70-4.87); Red Cell Distribution Width 29 % (10-15); White Blood Count 4.8 10^3/uL (3.5-10.8)
[2021-06-23 06:47] LABS: Albumin 3.1 g/dL (3.2-5.2); Albumin/Globulin Ratio 1.6 (1-3); Calcium 8.1 mg/dL (8.6-10.3); Globulin 1.9 g/dL (2-4); Phosphorus 3.2 mg/dL (2.5-5.0); Potassium 3.2 mmol/L (3.5-5.0); Total Bilirubin 2.5 mg/dL (0.2-1.0); eGFR CKD-EPI 129.1 (>60)
[2021-06-23] MEDS: Lactulose 30 ml UDC NG TUBE SCH ×3 (07:36→20:13)
[2021-06-23] MEDS: Pantoprazole VIAL 40 MG VIAL IV SCH (07:37)
[2021-06-23] MEDS ORDERED: Potassium Chloride LIQUID 20 MEQ/15 ML LIQUID PO ONE (07:41)
[2021-06-23] MEDS ORDERED: KCL 20 MEQ/100 ML IVPREMIX 20 MEQ/100 ML BAG IV ONE (07:41)
[2021-06-23] MEDS: levETIRAcetam LIQ 500 MG/5 ML UDC PO SCH ×2 (08:08→20:02)
[2021-06-23] MEDS: Dextran 70/Hypromellose Tears Eye Drops 15 ml BTL (for Artificials Tears) BOTH EYES SCH ×3 (16:57→23:51)
[2021-06-23] MEDS: Enoxaparin 40 MG/0.4 ML SYR SUBCUT SCH (17:01)
[2021-06-23] MEDS: cefTRIAXone 1 gm/50 mL NS BAG 1 GM/50 ML BAG IVPB SCH (17:01)
[2021-06-23] MEDS ORDERED: fentaNYL PATCH 25 MCG/HR 1 PATCH TRANSDERM SCH (20:00)
[2021-06-23] MEDS ORDERED: fentaNYL PATCH 100 MCG/HR 1 PATCH TRANSDERM SCH (20:00)
[2021-06-24] MEDS: Dextran 70/Hypromellose Tears Eye Drops 15 ml BTL (for Artificials Tears) BOTH EYES SCH ×6 (02:16→22:51)
[2021-06-24 05:21] LABS: Hematocrit 23 % (35-47); Hemoglobin 7.4 g/dL (12.0-16.0); Mean Corpuscular HGB Conc 32 g/dL (31-36); Mean Corpuscular Hemoglobin 36 pg (27-31); Mean Corpuscular Volume 112 fL (80-97); Mean Platelet Volume 8.5 fL (7.4-10.4); Platelet Count 100 10^3/uL (150-450); Red Blood Count 2.05 10^6 /uL (3.70-4.87); Red Cell Distribution Width 29 % (10-15); White Blood Count 3.5 10^3/uL (3.5-10.8)
[2021-06-24 05:25] LABS: INR 1.24 (0.86-1.15)
[2021-06-24 05:41] LABS: Anion Gap 4 mmol/L (2-11); Blood Urea Nitrogen 6 mg/dL (6-24); CO2 Carbon Dioxide 27 mmol/L (22-32); Calcium 8.1 mg/dL (8.6-10.3); Chloride 108 mmol/L (101-111); Glucose 95 mg/dL (70-100); Magnesium 1.8 mg/dL (1.9-2.7); Phosphorus 3.6 mg/dL (2.5-5.0); Potassium 3.5 mmol/L (3.5-5.0); Sodium 139 mmol/L (135-145); eGFR CKD-EPI 134.9 (>60)
[2021-06-24] MEDS ORDERED: Magnesium Sulfate 2 gm BAG 2 GM/50 ML BAG IVPB ONE (06:40)
[2021-06-24] MEDS ORDERED: Potassium Chloride LIQUID 20 MEQ/15 ML LIQUID PO ONE (06:40)
[2021-06-24] MEDS: fentaNYL Patch Check Q Shift NOTE FOLLOW UP SCH ×2 (06:53→18:55)
[2021-06-24] MEDS: Pantoprazole VIAL 40 MG VIAL IV SCH (08:08)
[2021-06-24] MEDS: levETIRAcetam LIQ 500 MG/5 ML UDC PO SCH ×2 (08:09→20:23)
[2021-06-24] MEDS: Lactulose 30 ml UDC NG TUBE SCH ×2 (08:10→13:16)
[2021-06-24] MEDS: DULoxetine DR 60 mg CAP PO SCH (09:57)
[2021-06-24] MEDS: KCL 20 MEQ/100 ML IVPREMIX 20 MEQ/100 ML BAG IV SCH ×2 (09:58→10:49)
[2021-06-24] MEDS ORDERED: Vancomycin Trough Check NOTE FOLLOW UP ONE (10:30)
[2021-06-24] MEDS: cefTRIAXone 2 GM ADDV.VIAL 2 GM in NS 0.9% 100 ml BAG 100 ML IV SCH (10:49)
[2021-06-24] MEDS: Enoxaparin 40 MG/0.4 ML SYR SUBCUT SCH (18:00)
[2021-06-25] MEDS: Dextran 70/Hypromellose Tears Eye Drops 15 ml BTL (for Artificials Tears) BOTH EYES SCH ×6 (03:25→22:33)
[2021-06-25 04:33] LABS: Hematocrit 25 % (35-47); Hemoglobin 8.3 g/dL (12.0-16.0); Mean Corpuscular HGB Conc 33 g/dL (31-36); Mean Corpuscular Hemoglobin 36 pg (27-31); Mean Corpuscular Volume 111 fL (80-97); Mean Platelet Volume 7.8 fL (7.4-10.4); Platelet Count 106 10^3/uL (150-450); Red Blood Count 2.29 10^6 /uL (3.70-4.87); Red Cell Distribution Width 30 % (10-15); White Blood Count 2.9 10^3/uL (3.5-10.8)
[2021-06-25 04:53] LABS: Anion Gap 5 mmol/L (2-11); Blood Urea Nitrogen 6 mg/dL (6-24); CO2 Carbon Dioxide 27 mmol/L (22-32); Calcium 8.1 mg/dL (8.6-10.3); Chloride 106 mmol/L (101-111); Glucose 135 mg/dL (70-100); Magnesium 1.9 mg/dL (1.9-2.7); Phosphorus 3.4 mg/dL (2.5-5.0); Potassium 3.5 mmol/L (3.5-5.0); Sodium 138 mmol/L (135-145); eGFR CKD-EPI 134.9 (>60)
[2021-06-25] MEDS: fentaNYL Patch Check Q Shift NOTE FOLLOW UP SCH ×2 (07:04→19:00)
[2021-06-25] MEDS: Pantoprazole VIAL 40 MG VIAL IV SCH (09:56)
[2021-06-25] MEDS: DULoxetine DR 60 mg CAP PO SCH (09:59)
[2021-06-25] MEDS: levETIRAcetam LIQ 500 MG/5 ML UDC PO SCH ×2 (09:59→20:13)
[2021-06-25] MEDS: cefTRIAXone 2 GM ADDV.VIAL 2 GM in NS 0.9% 100 ml BAG 100 ML IV SCH (10:13)
[2021-06-25] MEDS: HYDROmorphone 1 MG/1 ML SYRINGE IV SLOW PU PRN ×3 (10:28→18:50)
[2021-06-25] MEDS ORDERED: Albuterol HFA INHALER 8 gm MDI INH PRN (15:40)
[2021-06-25] MEDS: Enoxaparin 40 MG/0.4 ML SYR SUBCUT SCH (17:38)
[2021-06-26] MEDS: HYDROmorphone 1 MG/1 ML SYRINGE IV SLOW PU PRN ×3 (00:02→08:47)
[2021-06-26] MEDS: Dextran 70/Hypromellose Tears Eye Drops 15 ml BTL (for Artificials Tears) BOTH EYES SCH ×4 (03:27→16:44)
[2021-06-26 04:58] LABS: ABS Basophils 0.1 10^3/ul (0-0.2); ABS Eosinophils 0.2 10^3/ul (0-0.6); ABS Lymphocytes 1.7 10^3/ul (1.0-4.8); ABS Monocytes 0.2 10^3/ul (0-0.8); ABS Neutrophils 1.5 10^3/ul (1.5-7.7); ABS Nucleated RBC 0.1 10^3/ul; Eosinophil % 4.6 %; Hematocrit 26 % (35-47); Hemoglobin 8.2 g/dL (12.0-16.0); Lymphocyte % 45.4 %; Mean Corpuscular HGB Conc 32 g/dL (31-36); Mean Corpuscular Hemoglobin 36 pg (27-31); Mean Corpuscular Volume 113 fL (80-97); Mean Platelet Volume 7.6 fL (7.4-10.4); Nucleated Red Blood Cells % 1.5; Platelet Count 111 10^3/uL (150-450); Red Blood Count 2.27 10^6 /uL (3.70-4.87); Red Cell Distribution Width 30 % (10-15); White Blood Count 3.8 10^3/uL (3.5-10.8)
[2021-06-26 05:08] LABS: Calcium 8.1 mg/dL (8.6-10.3); Magnesium 1.8 mg/dL (1.9-2.7); Potassium 3.3 mmol/L (3.5-5.0); eGFR CKD-EPI 129.1 (>60)
[2021-06-26] MEDS ORDERED: Potassium Chloride LIQUID 20 MEQ/15 ML LIQUID PO ONE (07:06)
[2021-06-26] MEDS ORDERED: Magnesium Sulfate IV 1GM/100ML 1 GM/100 ML BAG IV ONE (07:06)
[2021-06-26] MEDS: fentaNYL Patch Check Q Shift NOTE FOLLOW UP SCH (07:41)
[2021-06-26] MEDS: DULoxetine DR 60 mg CAP PO SCH (08:26)
[2021-06-26] MEDS: levETIRAcetam LIQ 500 MG/5 ML UDC PO SCH (08:28)
[2021-06-26] MEDS: Pantoprazole VIAL 40 MG VIAL IV SCH (08:30)
[2021-06-26] MEDS ORDERED: Tiotropium Brom/Olodaterol MDI INH SCH (09:00)
[2021-06-26] MEDS ORDERED: BREXPIPRAZOLE 2 MG PO SCH (09:00)
[2021-06-26 11:33] VITALS: BP 116/82
[2021-06-26] MEDS: cefTRIAXone 2 GM ADDV.VIAL 2 GM in NS 0.9% 100 ml BAG 100 ML IV SCH (11:53)
[2021-06-26] MEDS: Enoxaparin 40 MG/0.4 ML SYR SUBCUT SCH (16:44)
== END 2021-06-26 15:20 | disposition home or self-care (01) | DRG 720 ==
LOC: ED 11:09 → SUATTDRO 16:24 → EDHOLD 16:24 → ICU 18:20 → SSU 06-24 14:44
PROVIDERS: ADMIT Nurse Practitioner Family; ATTEND Internal Medicine

== ENCOUNTER 2021-09-15 08:23 | Inpatient (IN) ==
[2021-09-15] MEDS ORDERED: Cefepime 2 GM in Dextrose 2 GM/50 ML BAG IV ONE (08:30)
[2021-09-15] MEDS ORDERED: Lactated Ringers 1000 ml BAG 1,000 ML IV ONE (08:32)
[2021-09-15 09:21] LABS: Venous Bicarbonate HCO3 27.7 mmol/L (24-28)
[2021-09-15 09:36] LABS: ABS Eosinophils 0.1 10^3/ul (0-0.6); ABS Lymphocytes 0.7 10^3/ul (1.0-4.8); ABS Monocytes 0.1 10^3/ul (0-0.8); ABS Neutrophils 5.8 10^3/ul (1.5-7.7); Eosinophil % 0.9 %; Hematocrit 31 % (35-47); Hemoglobin 9.9 g/dL (12.0-16.0); Lymphocyte % 10.5 %; Mean Corpuscular HGB Conc 32 g/dL (31-36); Mean Corpuscular Hemoglobin 34 pg (27-31); Mean Corpuscular Volume 106 fL (80-97); Mean Platelet Volume 8.3 fL (7.4-10.4); Nucleated Red Blood Cells % 0.1; Platelet Count 111 10^3/uL (150-450); Red Blood Count 2.89 10^6 /uL (3.70-4.87); Red Cell Distribution Width 26 % (10-15); White Blood Count 6.7 10^3/uL (3.5-10.8)
[2021-09-15 09:49] LABS: INR 1.39 (0.86-1.15); Influenza A Molecular Negative (Negative); Influenza B Molecular Negative (Negative)
[2021-09-15 09:50] LABS: Albumin 3.4 g/dL (3.2-5.2); Albumin/Globulin Ratio 1.7 (1-3); C Reactive Protein 54.76 mg/L (<8.01); Calcium 8.4 mg/dL (8.6-10.3); Potassium 3.6 mmol/L (3.5-5.0); Total Bilirubin 3.3 mg/dL (0.2-1.0); Total Protein 5.4 g/dL (6.4-8.9); Troponin I 0.01 ng/mL (<0.03); eGFR CKD-EPI 120.3 (>60)
[2021-09-15] MEDS ORDERED: Vancomycin 1,500 MG in NS 0.9% 250 ml 250 ML IVPB ONE (10:00)
[2021-09-15 10:03] LABS: Rapid COVID-19 Molecular Undetected (Undetected)
[2021-09-15 10:49] LABS: Urine Appearance Cloudy; Urine Bilirubin Negative (Negative); Urine Blood 1+ (Negative); Urine Color Amber; Urine Glucose 3+(>=500 mg/dL) (Negative); Urine Ketones Negative (Negative); Urine Nitrite Positive (Negative); Urine Protein Negative (Negative); Urine Specific Gravity 1.009 (1.002-1.030); Urine Urobilinogen Negative (Negative)
[2021-09-15 10:55] LABS: Urine Bacteria Absent (Absent); Urine Red Blood Cell Trace(0-2/hpf) (Absent); Urine Squamous Epithelial Cell Present (Absent); Urine White Blood Cell 3+(>20/hpf) (Absent)
[2021-09-15] MEDS ORDERED: Dextrose 50% Syringe 50 ml 25 GM/50 ML SYRINGE IV PUSH PRN (15:48)
[2021-09-15] MEDS ORDERED: Albuterol HFA INHALER 8 gm MDI INH PRN (16:14)
[2021-09-15] MEDS ORDERED: diPHENhydraMINE 25 mg TAB PO PRN (16:14)
[2021-09-15] MEDS ORDERED: Diphenoxylat/Atrop 2.5-0.025mg TAB PO PRN (16:20)
[2021-09-15] MEDS ORDERED: Ondansetron ODT 4 mg TAB 4 MG TAB PO PRN (16:20)
[2021-09-15] MEDS ORDERED: Cefepime 1 GM in Dextrose 1 GM/50 ML BAG IV SCH (17:00)
[2021-09-15] MEDS: Enoxaparin 40 MG/0.4 ML SYR SUBCUT SCH (17:32)
[2021-09-15] MEDS ORDERED: Gabapentin 600 mg TAB (NF) PO SCH ×2 (21:00)
[2021-09-15] MEDS: fentaNYL PATCH 25 MCG/HR 1 PATCH TRANSDERM SCH (22:43)
[2021-09-15] MEDS: fentaNYL PATCH 100 MCG/HR 1 PATCH TRANSDERM SCH (22:44)
[2021-09-15] MEDS: Insulin GLARGINE 100 un/ml 10 ml VIAL SUBCUT SCH (22:50)
[2021-09-15] MEDS: CEFEPIME 2 GM in Dextrose 50 mL IV SCH (23:34)
[2021-09-16 06:36] LABS: ABS Eosinophils 0.1 10^3/ul (0-0.6); ABS Lymphocytes 0.8 10^3/ul (1.0-4.8); ABS Monocytes 0.1 10^3/ul (0-0.8); ABS Neutrophils 4.7 10^3/ul (1.5-7.7); Eosinophil % 1.4 %; Hematocrit 27 % (35-47); Hemoglobin 8.9 g/dL (12.0-16.0); Lymphocyte % 13.4 %; Mean Corpuscular HGB Conc 33 g/dL (31-36); Mean Corpuscular Hemoglobin 34 pg (27-31); Mean Corpuscular Volume 105 fL (80-97); Mean Platelet Volume 7.6 fL (7.4-10.4); Platelet Count 80 10^3/uL (150-450); Red Blood Count 2.61 10^6 /uL (3.70-4.87); Red Cell Distribution Width 26 % (10-15); White Blood Count 5.6 10^3/uL (3.5-10.8)
[2021-09-16 06:38] LABS: Albumin 3.2 g/dL (3.2-5.2); Calcium 8.2 mg/dL (8.6-10.3); Total Bilirubin 1.7 mg/dL (0.2-1.0)
[2021-09-16 06:44] LABS: Albumin/Globulin Ratio 1.8 (1-3); Globulin 1.8 g/dL (2-4); eGFR CKD-EPI 130.1 (>60)
[2021-09-16] MEDS: fentaNYL Patch Check Q Shift NOTE FOLLOW UP SCH ×2 (07:13→19:08)
[2021-09-16 08:08] LABS: Direct Bilirubin 0.7 mg/dL (0.03-0.18); Magnesium 1.8 mg/dL (1.9-2.7)
[2021-09-16] MEDS ORDERED: Magnesium Sulfate IV 3 GM in NS 0.9% 100 ml BAG 100 ML IVPB ONE (08:29)
[2021-09-16] MEDS ORDERED: Potassium Chlor 20 meq TAB.ER PO ONE (08:30)
[2021-09-16] MEDS: Tiotropium Brom/Olodaterol MDI INH SCH (08:33)
[2021-09-16] MEDS ORDERED: Magnesium Sulfate 2 GM IV (Premix) IVPB ONE (09:00)
[2021-09-16] MEDS ORDERED: Gabapentin 600 mg TAB (NF) PO SCH (09:00)
[2021-09-16] MEDS ORDERED: Cefepime 1 GM in Dextrose 1 GM/50 ML BAG IV SCH (09:00)
[2021-09-16 09:09] LABS: Corrected Retic Count 0.6 % (0.5-1.5); Hematocrit for Retic CNT 28 % (35-47); Immature Retic Fraction 0.63; RBC Retic Count 2.65 10^6/uL (3.70-4.87)
[2021-09-16] MEDS: Insulin GLARGINE 100 un/ml 10 ml VIAL SUBCUT SCH ×2 (09:09→20:54)
[2021-09-16] MEDS: Potassium Chlor 20 meq TAB.ER PO SCH (09:11)
[2021-09-16] MEDS: DULoxetine DR 60 mg CAP PO SCH (09:12)
[2021-09-16] MEDS: KCL 20 MEQ/100 ML IVPREMIX 20 MEQ/100 ML BAG IV SCH ×2 (09:14→11:43)
[2021-09-16] MEDS ORDERED: Magnesium Sulfate 1 GM IV 1 GM/100 ML BAG IV ONE (10:00)
[2021-09-16] MEDS ORDERED: Senna TAB 8.6 mg TAB PO PRN (10:11)
[2021-09-16] MEDS ORDERED: Magnesium Hydroxide LIQ 30 ML UDC PO PRN (10:12)
[2021-09-16] MEDS: CEFEPIME 2 GM in Dextrose 50 mL IV SCH ×2 (10:49→22:20)
[2021-09-16] MEDS ORDERED: Dextrose 50% Syringe 50 ml 25 GM/50 ML SYRINGE IV PUSH PRN (11:12)
[2021-09-16] MEDS: Enoxaparin 40 MG/0.4 ML SYR SUBCUT SCH (17:47)
[2021-09-17 06:36] LABS: Calcium 8.2 mg/dL (8.6-10.3); Magnesium 1.9 mg/dL (1.9-2.7); Potassium 3.3 mmol/L (3.5-5.0); eGFR CKD-EPI 127.5 (>60)
[2021-09-17 06:39] LABS: Hematocrit 29 % (35-47); Hemoglobin 9.6 g/dL (12.0-16.0); Mean Corpuscular HGB Conc 33 g/dL (31-36); Mean Corpuscular Hemoglobin 35 pg (27-31); Mean Corpuscular Volume 107 fL (80-97); Mean Platelet Volume 8.3 fL (7.4-10.4); Platelet Count 76 10^3/uL (150-450); Red Blood Count 2.75 10^6 /uL (3.70-4.87); Red Cell Distribution Width 26 % (10-15); White Blood Count 4.5 10^3/uL (3.5-10.8)
[2021-09-17] MEDS: fentaNYL Patch Check Q Shift NOTE FOLLOW UP SCH ×2 (07:18→19:20)
[2021-09-17 07:35] LABS: Anisocytosis 1+; Basophilic Stippling 1+; Macrocytosis 1+; Polychromasia 1+; Tear Drop Cells 1+
[2021-09-17 08:15] LABS: ABS Eosinophils 0.1 10^3/ul (0-0.6); ABS Lymphocytes 0.4 10^3/ul (1.0-4.8); ABS Monocytes 0.1 10^3/ul (0-0.8); ABS Neutrophils 3.9 10^3/ul (1.5-7.7); Lymphocyte % 8.3 %; Nucleated Red Blood Cells % 0.3
[2021-09-17] MEDS: Tiotropium Brom/Olodaterol MDI INH SCH (08:20)
[2021-09-17] MEDS: Insulin GLARGINE 100 un/ml 10 ml VIAL SUBCUT SCH ×2 (09:40→21:56)
[2021-09-17] MEDS: DULoxetine DR 60 mg CAP PO SCH (09:43)
[2021-09-17] MEDS: Potassium Chlor 20 meq TAB.ER PO SCH (09:43)
[2021-09-17] MEDS: CEFEPIME 2 GM in Dextrose 50 mL IV SCH (10:37)
[2021-09-17] MEDS ORDERED: Benzocaine/Menthol LOZ PO PRN (11:10)
[2021-09-17] MEDS: Enoxaparin 40 MG/0.4 ML SYR SUBCUT SCH (17:38)
[2021-09-17] MEDS: Nitrofurantoin (monohydrate/macrocrystals) 100 mg CAP PO SCH (21:55)
[2021-09-18] MEDS: CEFEPIME 2 GM in Dextrose 50 mL IV SCH ×3 (01:14→21:44)
[2021-09-18] MEDS: fentaNYL Patch Check Q Shift NOTE FOLLOW UP SCH ×2 (07:13→19:09)
[2021-09-18] MEDS: Nitrofurantoin (monohydrate/macrocrystals) 100 mg CAP PO SCH ×2 (07:38→21:38)
[2021-09-18] MEDS: DULoxetine DR 60 mg CAP PO SCH (07:39)
[2021-09-18] MEDS: Potassium Chlor 20 meq TAB.ER PO SCH (07:40)
[2021-09-18] MEDS: Insulin GLARGINE 100 un/ml 10 ml VIAL SUBCUT SCH ×2 (07:51→20:49)
[2021-09-18] MEDS: Tiotropium Brom/Olodaterol MDI INH SCH (08:14)
[2021-09-18] MEDS: Enoxaparin 40 MG/0.4 ML SYR SUBCUT SCH (16:08)
[2021-09-19] MEDS: fentaNYL PATCH 25 MCG/HR 1 PATCH TRANSDERM SCH (00:03)
[2021-09-19] MEDS: fentaNYL PATCH 100 MCG/HR 1 PATCH TRANSDERM SCH (00:05)
[2021-09-19] MEDS: fentaNYL Patch Check Q Shift NOTE FOLLOW UP SCH ×2 (07:09→22:32)
[2021-09-19] MEDS: Tiotropium Brom/Olodaterol MDI INH SCH (09:00)
[2021-09-19] MEDS: Potassium Chlor 20 meq TAB.ER PO SCH (09:23)
[2021-09-19] MEDS: Nitrofurantoin (monohydrate/macrocrystals) 100 mg CAP PO SCH ×2 (09:24→22:07)
[2021-09-19] MEDS: DULoxetine DR 60 mg CAP PO SCH (09:25)
[2021-09-19] MEDS: Insulin GLARGINE 100 un/ml 10 ml VIAL SUBCUT SCH ×2 (09:28→22:01)
[2021-09-19] MEDS ORDERED: Iodixanol (CONTRAST) 320 MG/ML 100 ML SDV IV ONE (17:13)
[2021-09-19] MEDS: Enoxaparin 40 MG/0.4 ML SYR SUBCUT SCH (18:06)
[2021-09-20] MEDS: fentaNYL Patch Check Q Shift NOTE FOLLOW UP SCH ×2 (06:51→18:52)
[2021-09-20] MEDS: Tiotropium Brom/Olodaterol MDI INH SCH (08:01)
[2021-09-20] MEDS: Insulin GLARGINE 100 un/ml 10 ml VIAL SUBCUT SCH ×2 (09:24→20:21)
[2021-09-20] MEDS: DULoxetine DR 60 mg CAP PO SCH (09:28)
[2021-09-20] MEDS: Nitrofurantoin (monohydrate/macrocrystals) 100 mg CAP PO SCH ×2 (09:28→20:24)
[2021-09-20] MEDS: Potassium Chlor 20 meq TAB.ER PO SCH (09:30)
[2021-09-20] MEDS ORDERED: Gadoteridol (CONTRAST) 279.3 MG/ML 10 ML IV ONE (15:23)
[2021-09-20] MEDS: Enoxaparin 40 MG/0.4 ML SYR SUBCUT SCH (18:06)
[2021-09-21] MEDS: fentaNYL Patch Check Q Shift NOTE FOLLOW UP SCH ×2 (07:28→19:35)
[2021-09-21] MEDS: Tiotropium Brom/Olodaterol MDI INH SCH (07:50)
[2021-09-21] MEDS: DULoxetine DR 60 mg CAP PO SCH (09:53)
[2021-09-21] MEDS: Potassium Chlor 20 meq TAB.ER PO SCH (09:57)
[2021-09-21] MEDS: Insulin GLARGINE 100 un/ml 10 ml VIAL SUBCUT SCH ×2 (09:59→21:07)
[2021-09-21] MEDS: Nitrofurantoin (monohydrate/macrocrystals) 100 mg CAP PO SCH ×2 (11:15→21:18)
[2021-09-21 14:57] LABS: ABS Eosinophils 0.1 10^3/ul (0-0.6); ABS Lymphocytes 0.6 10^3/ul (1.0-4.8); ABS Monocytes 0.4 10^3/ul (0-0.8); ABS Neutrophils 2.9 10^3/ul (1.5-7.7); ABS Nucleated RBC 0.1 10^3/ul; Eosinophil % 2.1 %; Hematocrit 29 % (35-47); Hemoglobin 9.4 g/dL (12.0-16.0); Lymphocyte % 15.3 %; Mean Corpuscular HGB Conc 32 g/dL (31-36); Mean Corpuscular Hemoglobin 35 pg (27-31); Mean Corpuscular Volume 108 fL (80-97); Mean Platelet Volume 8.1 fL (7.4-10.4); Nucleated Red Blood Cells % 1.2; Platelet Count 97 10^3/uL (150-450); Red Cell Distribution Width 28 % (10-15)
[2021-09-21 15:14] LABS: Blood Urea Nitrogen 10 mg/dL (6-24); CO2 Carbon Dioxide 30 mmol/L (22-32); Calcium 8.4 mg/dL (8.6-10.3); Chloride 104 mmol/L (101-111); Glucose 197 mg/dL (70-100); Magnesium 1.8 mg/dL (1.9-2.7); Sodium 140 mmol/L (135-145); eGFR CKD-EPI 126.6 (>60)
[2021-09-21 15:17] LABS: Anion Gap 6 mmol/L (2-11)
[2021-09-21] MEDS ORDERED: Magnesium Sulfate 2 gm BAG 2 GM/50 ML BAG IVPB ONE (16:46)
[2021-09-21] MEDS: Enoxaparin 40 MG/0.4 ML SYR SUBCUT SCH (18:27)
[2021-09-21] MEDS: fentaNYL PATCH 25 MCG/HR 1 PATCH TRANSDERM SCH (21:02)
[2021-09-21] MEDS: fentaNYL PATCH 100 MCG/HR 1 PATCH TRANSDERM SCH (21:02)
[2021-09-22] MEDS: Tiotropium Brom/Olodaterol MDI INH SCH (08:10)
[2021-09-22] MEDS: Potassium Chlor 20 meq TAB.ER PO SCH (08:17)
[2021-09-22] MEDS: DULoxetine DR 60 mg CAP PO SCH (08:20)
[2021-09-22] MEDS: Insulin GLARGINE 100 un/ml 10 ml VIAL SUBCUT SCH ×2 (08:50→20:20)
[2021-09-22 09:51] LABS: Total Iron Binding Capacity 330 mcg/dL (250-450); Transferrin 236 mg/dL (203-362)
[2021-09-22 10:12] LABS: Ferritin 73.5 ng/mL (11-307)
[2021-09-22] MEDS: fentaNYL Patch Check Q Shift NOTE FOLLOW UP SCH ×2 (11:39→21:01)
[2021-09-22] MEDS: Enoxaparin 40 MG/0.4 ML SYR SUBCUT SCH (18:13)
[2021-09-23] MEDS: fentaNYL Patch Check Q Shift NOTE FOLLOW UP SCH ×2 (07:00→18:48)
[2021-09-23] MEDS: Tiotropium Brom/Olodaterol MDI INH SCH (07:23)
[2021-09-23] MEDS: Potassium Chlor 20 meq TAB.ER PO SCH (09:34)
[2021-09-23] MEDS: DULoxetine DR 60 mg CAP PO SCH (09:35)
[2021-09-23] MEDS: Insulin GLARGINE 100 un/ml 10 ml VIAL SUBCUT SCH ×2 (09:36→22:03)
[2021-09-23] MEDS: Enoxaparin 40 MG/0.4 ML SYR SUBCUT SCH (16:51)
[2021-09-24] MEDS: Tiotropium Brom/Olodaterol MDI INH SCH (07:15)
[2021-09-24] MEDS: fentaNYL Patch Check Q Shift NOTE FOLLOW UP SCH ×2 (07:16→18:57)
[2021-09-24] MEDS: DULoxetine DR 60 mg CAP PO SCH (09:34)
[2021-09-24] MEDS: Insulin GLARGINE 100 un/ml 10 ml VIAL SUBCUT SCH ×2 (09:34→21:14)
[2021-09-24] MEDS: Potassium Chlor 20 meq TAB.ER PO SCH (09:34)
[2021-09-24] MEDS: Enoxaparin 40 MG/0.4 ML SYR SUBCUT SCH (17:51)
[2021-09-24] MEDS: fentaNYL PATCH 100 MCG/HR 1 PATCH TRANSDERM SCH (21:35)
[2021-09-24] MEDS: fentaNYL PATCH 25 MCG/HR 1 PATCH TRANSDERM SCH (21:35)
[2021-09-25] MEDS: Tiotropium Brom/Olodaterol MDI INH SCH (07:29)
[2021-09-25] MEDS: DULoxetine DR 60 mg CAP PO SCH (08:38)
[2021-09-25] MEDS: Potassium Chlor 20 meq TAB.ER PO SCH (08:39)
[2021-09-25] MEDS: Insulin GLARGINE 100 un/ml 10 ml VIAL SUBCUT SCH ×2 (08:46→21:04)
[2021-09-25] MEDS: fentaNYL Patch Check Q Shift NOTE FOLLOW UP SCH ×2 (09:04→19:05)
[2021-09-26] MEDS: fentaNYL Patch Check Q Shift NOTE FOLLOW UP SCH ×2 (07:04→18:53)
[2021-09-26 07:55] VITALS: BP 153/64
[2021-09-26] MEDS: Tiotropium Brom/Olodaterol MDI INH SCH (08:54)
[2021-09-26] MEDS: DULoxetine DR 60 mg CAP PO SCH (09:06)
[2021-09-26] MEDS: Potassium Chlor 20 meq TAB.ER PO SCH (09:08)
[2021-09-26] MEDS: Insulin GLARGINE 100 un/ml 10 ml VIAL SUBCUT SCH ×2 (09:09→21:56)
[2021-09-27] MEDS: fentaNYL Patch Check Q Shift NOTE FOLLOW UP SCH ×2 (07:15→18:58)
[2021-09-27] MEDS: Tiotropium Brom/Olodaterol MDI INH SCH (08:12)
[2021-09-27] MEDS: DULoxetine DR 60 mg CAP PO SCH (08:36)
[2021-09-27] MEDS: Insulin GLARGINE 100 un/ml 10 ml VIAL SUBCUT SCH (08:37)
[2021-09-27] MEDS ORDERED: Insulin GLARGINE 100 un/ml 10 ml VIAL SUBCUT SCH (21:00)
[2021-09-27] MEDS: fentaNYL PATCH 50 MCG/HR 1 PATCH TRANSDERM SCH (21:04)
[2021-09-27] MEDS: fentaNYL PATCH 100 MCG/HR 1 PATCH TRANSDERM SCH (21:05)
[2021-09-28] MEDS: Tiotropium Brom/Olodaterol MDI INH SCH ×2 (07:41→08:10)
[2021-09-28] MEDS: fentaNYL Patch Check Q Shift NOTE FOLLOW UP SCH ×2 (07:42→18:54)
[2021-09-28] MEDS: DULoxetine DR 60 mg CAP PO SCH (07:44)
[2021-09-28] MEDS: Insulin GLARGINE 100 un/ml 10 ml VIAL SUBCUT SCH (21:02)
[2021-09-29] MEDS: fentaNYL Patch Check Q Shift NOTE FOLLOW UP SCH ×2 (07:06→19:01)
[2021-09-29] MEDS: Tiotropium Brom/Olodaterol MDI INH SCH (07:26)
[2021-09-29] MEDS: DULoxetine DR 60 mg CAP PO SCH (09:28)
[2021-09-29] MEDS: Insulin GLARGINE 100 un/ml 10 ml VIAL SUBCUT SCH (21:27)
[2021-09-30] MEDS: Tiotropium Brom/Olodaterol MDI INH SCH (07:19)
[2021-09-30] MEDS: fentaNYL Patch Check Q Shift NOTE FOLLOW UP SCH ×2 (07:29→21:23)
[2021-09-30] MEDS: DULoxetine DR 60 mg CAP PO SCH (08:18)
[2021-09-30] MEDS: fentaNYL PATCH 50 MCG/HR 1 PATCH TRANSDERM SCH (21:24)
[2021-09-30] MEDS: Insulin GLARGINE 100 un/ml 10 ml VIAL SUBCUT SCH (21:25)
[2021-09-30] MEDS: fentaNYL PATCH 100 MCG/HR 1 PATCH TRANSDERM SCH (22:42)
[2021-10-01] MEDS: fentaNYL Patch Check Q Shift NOTE FOLLOW UP SCH ×2 (07:20→19:19)
[2021-10-01] MEDS: DULoxetine DR 60 mg CAP PO SCH (08:21)
[2021-10-01] MEDS: Tiotropium Brom/Olodaterol MDI INH SCH (08:29)
[2021-10-01] MEDS: Insulin GLARGINE 100 un/ml 10 ml VIAL SUBCUT SCH (20:09)
[2021-10-02] MEDS: Tiotropium Brom/Olodaterol MDI INH SCH (07:04)
[2021-10-02] MEDS: fentaNYL Patch Check Q Shift NOTE FOLLOW UP SCH ×2 (07:06→19:05)
[2021-10-02] MEDS: DULoxetine DR 60 mg CAP PO SCH (08:08)
[2021-10-02 16:01] LABS: Rapid COVID-19 Molecular Undetected (Undetected)
[2021-10-02] MEDS: Insulin GLARGINE 100 un/ml 10 ml VIAL SUBCUT SCH (20:45)
[2021-10-03] MEDS: fentaNYL Patch Check Q Shift NOTE FOLLOW UP SCH ×2 (06:46→19:07)
[2021-10-03] MEDS: Tiotropium Brom/Olodaterol MDI INH SCH (08:16)
[2021-10-03] MEDS: DULoxetine DR 60 mg CAP PO SCH (10:03)
[2021-10-03] MEDS: Insulin GLARGINE 100 un/ml 10 ml VIAL SUBCUT SCH (21:51)
[2021-10-03] MEDS: fentaNYL PATCH 50 MCG/HR 1 PATCH TRANSDERM SCH (21:53)
[2021-10-03] MEDS: fentaNYL PATCH 100 MCG/HR 1 PATCH TRANSDERM SCH (21:57)
[2021-10-04] MEDS: fentaNYL Patch Check Q Shift NOTE FOLLOW UP SCH (07:15)
[2021-10-04] MEDS: Tiotropium Brom/Olodaterol MDI INH SCH (08:18)
[2021-10-04] MEDS: DULoxetine DR 60 mg CAP PO SCH (09:30)
[2021-10-04] MEDS ORDERED: Bacitracin OINTMENT TUBE TOPICAL SCH (09:30)
== END 2021-10-04 11:15 | disposition hospice, inpatient (51) | DRG 720 ==
LOC: ED 08:23 → SUATTDRO 17:05 → EDHOLD 17:05 → MEDTELE 19:43
PROVIDERS: ADMIT Internal Medicine; ATTEND Internal Medicine